=== PATIENT | female | born 1940 | race Caucasian/White ===

== ENCOUNTER 2018-07-25 08:29 | Inpatient (IN) | payer MEDICARE, MEDICAID ==
[2018-07-25] VITALS (15 sets, daily range): BP systolic 92–206; BP diastolic 17–61
[~2018-07-25] VITALS: Ht 157.5 cm; Wt 55.5 kg
[2018-07-25] MEDS ORDERED: ALPRAZOLAM1 MG ORAL (08:45)
[2018-07-25] MEDS ORDERED: MUPIROCIN22 GM TOPIC (08:45)
[2018-07-25] MEDS ORDERED: PRO-STAT LIQUID30 ML ORAL (08:45)
[2018-07-25] MEDS ORDERED: ACETAMINOPHEN325 M1 ORAL (08:45)
[2018-07-25] MEDS ORDERED: METOPROLOL TART50 M1 ORAL (08:45)
[2018-07-25] MEDS ORDERED: SENNA LAXATIVE1 EAC1 PO (08:45)
[2018-07-25] MEDS ORDERED: RENVELA0.8 GM ORAL (08:45)
[2018-07-25] MEDS ORDERED: VITAMIN C500 M1 ORAL (08:45)
[2018-07-25] MEDS ORDERED: SERTRALINE HCL25 MG ORAL (08:45)
[2018-07-25] MEDS ORDERED: ELIQUIS2.5 MG PO (08:45)
[2018-07-25] MEDS ORDERED: AMIODARONE HCL400 M1 ORAL (08:45)
[2018-07-25] MEDS ORDERED: PANTOPRAZOLE SO40 MG ORAL (08:45)
[2018-07-25] MEDS ORDERED: DOCUSATE SODIU100 MG ORAL (08:45)
[2018-07-25] MEDS ORDERED: GABAPENTIN300 MG ORAL (08:45)
[2018-07-25] MEDS ORDERED: Vancomycin 1 GM in NS 275 ML IVPB ONE (09:00)
[2018-07-25] MEDS ORDERED: Albuterol ud Inhalation HHN ONE (09:00)
[2018-07-25 09:02] LABS: BASOPHILS % (AUTO) 1.6 % (0.0-2.0); EOSINOPHILS % (AUTO) 0.5 % (0.0-3.0); HEMATOCRIT 35.2 % (37.0-47.0); LYMPHOCYTES % (AUTO) 10.3 % (20.0-45.0); MEAN CORPUSCULAR VOLUME 97 FL (80-99); MONOCYTES % (AUTO) 7.5 % (1.0-10.0); NEUTROPHILS % (AUTO) 80.1 % (45.0-75.0); PLATELET COUNT 573 K/UL (150-450); RED BLOOD COUNT 3.62 M/UL (4.20-5.40); RED CELL DISTRIBUTION WIDTH 21.5 % (11.6-14.8); WHITE BLOOD COUNT 13.3 K/UL (4.8-10.8)
--- NOTE | 2018-07-25 09:16 | NUR ---
ED Nurse Note:pt. was BIBA from SNF for ALOC , on arrival she is A/Ox0, O2 sats 94% on non rebrizer mask at 15L, pt. placed on manager monitoring, EKG done ,blood and urine sent to labs, F/C removed as of ERMD order, pt. receiving breathing treatment , IV antibiotic given, pt. came with FLACO single lumen PICC line in working condition
[2018-07-25 09:17] LABS: INR 0.9 (0.9-1.1)
[2018-07-25 09:21] LABS: ANION GAP 5 mmol/L (5-15); BLOOD UREA NITROGEN 42 mg/dL (7-18); CARBON DIOXIDE 31 MMOL/L (21-32); CHLORIDE 101 MMOL/L (98-107); CREATININE 3.1 MG/DL (0.55-1.30); POTASSIUM 5.5 MMOL/L (3.5-5.1); SODIUM 137 MMOL/L (136-145)
--- NOTE | 2018-07-25 09:30 | Emergency Room Report ---
History of Present Illness General Chief Complaint: Altered Mental Status Source: Medical Record, EMS Present Illness HPI This patient presents from a custodial facility. The patient has multiple chronic medical problems. She has a history of end-stage renal disease and is dialysis dependent, dementia and inability to ambulate with muscle weakness. EMS report that they were called to the custodial facility for being more altered than usual. Usually the patient is oriented to herself. There was also concern about oxygenation. The patient herself is minimally responsive and unable to give any history. There is no other history from EMS or the custodial facility. Allergies: Coded Allergies: No Known Allergies (Unverified , 07/25/18) Patient History Past Medical History: see triage record, DM, HTN, MO, CAD, GERD, CVA/TIA, dementia, renal disease, dialysis Past Surgical History: unable to obtain Pertinent Family History: unable to obtain Social History: Denies: smoking, alcohol use, drug use Last Menstrual Period: unk Now: No Reviewed Nursing Documentation: PMH: Agreed; PSxH: Agreed Nursing Documentation-PMH Hx Cardiac Problems: Yes - a-fib Hx Hypertension: Yes Hx Diabetes: Yes - esrd Review of Systems All Other Systems: limited Physical Exam Vital Signs Date Time Temp Pulse Resp B/P (MAP) Pulse Ox O2 Delivery O2 Flow Rate FiO2 07/25/18 08:25 Nasal Cannula 07/25/18 08:25 96.1 82 14 143/40 94 2.0 Sp02 EP Interpretation: reviewed, abnormal General Appearance: no apparent distress, alert, GCS 15, non-toxic, cachetic, thin, Chronically Ill Head: normocephalic, atraumatic Eyes: bilateral eye normal inspection, bilateral eye PERRL ENT: hearing grossly normal, normal pharynx, no angioedema Neck: full range of motion, supple/symm/no masses Respiratory: chest non-tender, lungs clear, no respiratory distress, no retraction, no accessory muscle use, decreased breath sounds Cardiovascular #1: regular rate, rhythm, no edema, systolic murmur Gastrointestinal: normal bowel sounds, non tender, soft, non-distended, no guarding, no rebound Rectal: deferred Musculoskeletal: other - Contractures. At baseline Neurologic: alert, other - Non-focal. Altered/Dementia Psychiatric: judgement/insight normal, memory normal, mood/affect normal, no suicidal/homicidal ideation Skin: warm/dry, well hydrated, other - See RN skin exam. Multiple DU. Procedures Intubation Intubation : Consent: Emergent Intubation Method: orotracheal Tube Size (cm): 7.0 Medications: Etomidate, Rocuronium Breath Sounds after Intubation: equal Intubation Complications: no complications Post Intubation Xray: Yes Progress/Xray Impression: L. Lung opacification Attempts: One Patient Tolerated: Well Complications: None Medical Decision Making Diagnostic Impression: Primary Impression: Altered mental status Additional Impressions: Pyelonephritis Pneumonia ER Course This elderly and chronically ill female presents with altered mental status. She is found to have pyelonephritis and pneumonia. The patient was hypertensive with systolic blood pressures in the 200s on arrival. However, I' m unsure of the accuracy of these readings as the diastolic was very low. These blood pressures were obtained on the leg and in an elderly female I suspect there is significant peripheral arterial disease. The patient's right upper extremity has a PICC line in place in the left upper extremity has an AV fistula. That is why the blood pressures are being taken on the leg. The patient was not tachycardic or in any discomfort or distress during her entire ED course. Initially I had planned and placed in this patient and his stepdown unit secondary to the blood pressures, however, the blood pressure read in the 150s systolic and the patient remained without tachycardia and appeared double and nondistressed, sitting the patient was downgraded to telemetry. The patient was given broad-spectrum antibiotics. Added note: After the patient was admitted to telemetry she desaturated suddenly became more altered. She was transferred to the ICU and placed on a nonrebreather mask and I was called from the ICU to come intubate this patient. The patient's saturations were in the high 80s and occasionally in the 90s. There was a very poor waveform. However, the patient clearly had declined and was intubated by rapid think with intubation without complication on the first attempt. Please see my procedure note. Post intubation chest x-ray shows complete opacification of the left lung consistent with obstruction. This is a new finding from the previous chest x-ray done in the emergency department and is likely the etiology of the patient's rapid respiratory failure. Possibly this is secondary to a mucous plug. This patient is critically ill. This patient required complex medical decision- making, aggressive intervention, extensive laboratory workup and monitoring. Critical care time: 40 minutes. Laboratory Tests Test 07/25/18 08:30 07/25/18 12:30 White Blood Count 13.3 K/UL (4.8-10.8) H Red Blood Count 3.62 M/UL (4.20-5.40) L Hemoglobin 10.0 G/DL (12.0-16.0) L Hematocrit 35.2 % (37.0-47.0) L Mean Corpuscular Volume 97 FL (80-99) Mean Corpuscular Hemoglobin 27.5 PG (27.0-31.0) Mean Corpuscular Hemoglobin Concent 28.4 G/DL (32.0-36.0) L Red Cell Distribution Width 21.5 % (11.6-14.8) H Platelet Count 573 K/UL (150-450) H Mean Platelet Volume 6.1 FL (6.5-10.1) L Neutrophils (%) (Auto) 80.1 % (45.0-75.0) H Lymphocytes (%) (Auto) 10.3 % (20.0-45.0) L Monocytes (%) (Auto) 7.5 % (1.0-10.0) Eosinophils (%) (Auto) 0.5 % (0.0-3.0) Basophils (%) (Auto) 1.6 % (0.0-2.0) Prothrombin Time 10.0 SEC (9.30-11.50) Prothrombin Time INR 0.9 (0.9-1.1) PTT 32 SEC (23-33) Urine Color Pale yellow Urine Appearance Turbid Urine pH 7 (4.5-8.0) Urine Specific [place] 1.030 (1.005-1.035) Urine Protein 4+ (NEGATIVE) H Urine Glucose (UA) Negative (NEGATIVE) Urine Ketones Negative (NEGATIVE) Urine Blood 5+ (NEGATIVE) H Urine Nitrite Negative (NEGATIVE) Urine Bilirubin Negative (NEGATIVE) Urine Urobilinogen Normal MG/DL (0.0-1.0) Urine Leukocyte Esterase 3+ (NEGATIVE) H Urine RBC 30-40 /HPF (0 - 2) H Urine WBC Tntc /HPF (0 - 2) H Urine Squamous Epithelial Cells Few /LPF (NONE/OCC) Urine Bacteria Moderate /HPF (NONE) H Sodium Level 137 MMOL/L (136-145) Potassium Level 5.5 MMOL/L (3.5-5.1) H Chloride Level 101 MMOL/L (98-107) Carbon Dioxide Level 31 MMOL/L (21-32) Anion Gap 5 mmol/L (5-15) Blood Urea Nitrogen 42 mg/dL (7-18) H Creatinine 3.1 MG/DL (0.55-1.30) H Estimate Glomerular Filtration Rate mL/min (>60) Glucose Level 174 MG/DL (74-106) H Lactic Acid Level 0.70 mmol/L (0.4-2.0) Calcium Level 9.0 MG/DL (8.5-10.1) Total Bilirubin 0.2 MG/DL (0.2-1.0) Aspartate Amino Transferase (AST) 19 U/L (15-37) Alanine Aminotransferase (ALT) 11 U/L (12-78) L Alkaline Phosphatase 99 U/L (46-116) Total Creatine Kinase 25 U/L (26-308) L Creatine Kinase MB 2.5 NG/ML (0.0-3.6) Creatine Kinase MB Relative Index 10.0 Troponin I 0.026 ng/mL (0.000-0.056) Total Protein 8.3 G/DL (6.4-8.2) H Albumin 1.7 G/DL (3.4-5.0) L Globulin 6.6 g/dL Albumin/Globulin Ratio 0.3 (1.0-2.7) L Arterial Blood pH 7.170 (7.350-7.450) Arterial Blood Partial Pressure CO2 74.4 mmHg (35.0-45.0) *H Arterial Blood Partial Pressure O2 66.9 mmHg (75.0-100.0) L Arterial Blood HCO3 26.5 mmol/L (22.0-26.0) H Arterial Blood Oxygen Saturation 88.6 % (95-100) *L Arterial Blood Base Excess -2.9 (-2-2) L Silverio Test Positive Microbiology Date/Time Source Procedure Growth Status 07/25/18 08:35 Nasal Nares Influenza Types A,B Antigen (FARSHAD) - Final Complete EKG Diagnostic Results Rate: normal Rhythm: NSR ST Segments: no acute changes Rhythm Strip Diag. Results EP Interpretation: yes Rate: 80's Rhythm: NSR, no PVC's, no ectopy Chest X-Ray Diagnostic Results Chest X-Ray Diagnostic Results : Chest X-Ray Ordered: Yes # of Views/Limited/Complete: 1 View Indication: Other - AMS EP Interpretation: Yes Interpretation: other - RLL opacity Impression: Other - See above Electronically Signed by: Thiago Last Vital Signs Date Time Temp Pulse Resp B/P (MAP) Pulse Ox O2 Delivery O2 Flow Rate FiO2 07/25/18 08:27 96.1 82 12 264/49 Nasal Cannula 2.0 07/25/18 08:25 94 Disposition: ADMITTED INPATIENT Condition: Serious Marcia Stone DO Jul 25, 2018 09:30
[2018-07-25 09:32] LABS: APPEARANCE,URINE TURBID; BILIRUBIN, URINE NEGATIVE (NEGATIVE); GLUCOSE, URINE (UA) NEGATIVE (NEGATIVE); KETONES,URINE NEGATIVE (NEGATIVE); LEUKOCYTE ESTERASE ,URINE 3+ (NEGATIVE); NITRITE,URINE NEGATIVE (NEGATIVE); PH,URINE 7 (4.5-8.0); PROTEIN,URINE 4+ (NEGATIVE); UROBILINOGEN,URINE NORMAL MG/DL (0.0-1.0)
[2018-07-25 09:34] LABS: ALANINE AMINOTRANSFERASE 11 U/L (12-78); ALBUMIN 1.7 G/DL (3.4-5.0); ALBUMIN/GLOBULIN RATIO 0.3 (1.0-2.7); ALKALINE PHOSPHATASE 99 U/L (46-116); ASPARTATE AMINO TRANSFERASE 19 U/L (15-37); BILIRUBIN,TOTAL 0.2 MG/DL (0.2-1.0); CKMB 2.5 NG/ML (0.0-3.6); CREATINE KINASE 25 U/L (26-308)
[2018-07-25 09:38] LABS: COLOR,URINE PALE YELLOW
--- NOTE | 2018-07-25 10:55 | Diagnostic Imaging Report ---
Indications: Dementia, altered mental status Technique: Spiral acquisitions obtained through the brain. Angled axial and coronal 5 x 5 mm slices were reconstructed. Total dose length product 1362.01 mGycm. CTDI vol(s) 70.38 mGy. Dose reduction achieved using automated exposure control Comparison: None. Findings: There is slight image degradation due to motion artifact. There is age-related enlargement of the ventricles and extra axial CSF spaces. There is periventricular white matter low-attenuation, consistent with chronic ischemic change. Old lacunar infarct is seen in the anterior limb of the right internal capsule. Asymmetric basal ganglia calcification seen on the left. No acute intercranial hemorrhage nor edema, mass effect, nor midline shift. The visualized orbits and sinuses are unremarkable. The mastoids are clear. The calvarium is hyperostotic, intact. Impression: Somewhat limited exam due to motion artifact No gross acute intracranial bleed or mass effect Chronic and age-related changes, as described. Old right internal capsule lacunar infarct The CT scanner at [facility] is accredited by the [employer] and the scans are performed using protocols designed to limit radiation exposure to as low as reasonably achievable to attain images of sufficient resolution adequate for diagnostic evaluation.
--- NOTE | 2018-07-25 11:05 | Diagnostic Imaging Report ---
Indication: Shortness of Technique: One view of the chest Comparison: None Findings: There are moderate to large bilateral pleural effusions. There is pulmonary interstitial edema. There is suggestion of abrupt cut off of the left mainstem bronchus, endobronchial occlusion not excludable. The heart is enlarged. There is a right arm midline. The tip is at the level of the upstream subclavian vein. Extensive surgical clips are seen in the left upper quadrant of the abdomen. The bones are unremarkable Impression: Cardiomegaly Evidence of congestive heart failure, with pulmonary interstitial edema, moderate to large bilateral pleural effusions Suggestion of abrupt cut off of the left mainstem bronchus. Could be artifactual, but endobronchial occlusion not excludable
--- NOTE | 2018-07-25 11:30 | NUR ---
ED Nurse Note:pt. has labored breathing VS are with in normals, notified and OKed to transfer pt. to SDU
--- NOTE | 2018-07-25 11:45 | NUR ---
ED Nurse Note:called SDU for report- they waiting for bed in room
--- NOTE | 2018-07-25 12:07 | NUR ---
CASE MANAGEMENT: REVIEW 78/F MICHAEL FROM [facility] CC: AMS SI: PYELONEPHRITIS . AMS T 96.1 HR 82 RR 14 BP 264/49 SAT 99% MECH VENT FIO2 100 WBC 13.3 H/H 10.0/35.2 5.5 ABG: PH 7.170 PCO2 74.4 PO2 66.9 HCO3 26.5 SAT 88.6 IS: VANCO IV X1 ALBUTEROL HHN X1 ZOSYN IV X1 NS IVF BOLUS X1 ALBUMIN IV X1 INTERQUAL CRITERIA MET: PATIENT ADMITTED TO ICU 07/25/2018 DCP: PATIENT IS FROM [facility]
--- NOTE | 2018-07-25 12:40 | NUR ---
ED Nurse Note:pt. was transfered to ICU for respiratory distress, ABG done , report given to Carolina BLAND
--- NOTE | 2018-07-25 13:44 | Diagnostic Imaging Report ---
Indication: Post intubation Technique: One view of the chest Comparison: 5 hours earlier Findings: Interim endotracheal intubation, endotracheal tube tip projecting approximately 4 cm above the dominick. Again demonstrated is abrupt cut off of the left mainstem bronchus, with now complete opacification of the left lung likely indicating complete atelectasis of such. The right lung demonstrates better inflation than on the previous exam. Large right pleural effusion is again demonstrated. There is a nasogastric tube in place, tip of which projects at the level of the gastric fundus/body junction. Right arm midline again demonstrated Impression: Satisfactory endotracheal intubation Satisfactory nasogastric intubation Abrupt cut off of the left mainstem bronchus and complete opacification of the left hemithorax, suspect endobronchial obstruction with complete atelectasis of left lung. Previous exam also showed evidence of significant pleural fluid on the left Improved aeration of the right lung Large right pleural effusion, moderate interstitial congestion persist Value findings phoned to Dr. Allan at the time of interpretation
--- NOTE | 2018-07-25 14:00 | NUR ---
NURSE NOTES: Patient arrived from ED, with one Midline access, on the right arm and left arm has a AV shunt, she gets hemodialysis MWF, requires intubation ordered by MD horan. BP is also low, a NGT was applied, chest xray done. Has wounds, and is on a SPR mattress. Left lung is very diminished. Is from [facility]. MD horan has been called and notified about the patients condition. CHest xray showed a collapsed left lung, family has been notified about consent for broncoscopy, patient is ful code with no known allergies , Dr Downs is on the case and has been notified of patient condition.
--- NOTE | 2018-07-25 14:08 | Consultation ---
History of Present Illness General Date patient seen: Jul 25, 2018 Chief Complaint: Altered Mental Status Reason for Consultation: venous access, critical care Present Illness HPI 78 year old elderly female with multiple medical comorbidities just admitted and now with respiratory compromise requiring urgent intubation. Hypotensive, devonte cardic, left lung collapse/plug, now requiring multiple meds, fluids, and possible pressors. only has right arm midline with single lumen. cannot obtain peripheral access. central venous access needed for critical care. surgery called to evaluate and assist with care. Allergies: Coded Allergies: No Known Allergies (Unverified , 07/25/18) Medication History Scheduled Alprazolam* (Xanax*), 1 MG ORAL TID, (Reported) Amino Acids/Protein Hydrolys (Pro-Stat Liquid), 30 ML ORAL TWICE A DAY, ( Reported) Amiodarone Hcl* (Amiodarone Hcl*), 200 MG ORAL EVERY 12 HOURS, (Reported) Ascorbic Acid* (Vitamin C*), 500 MG ORAL DAILY, (Reported) Docusate Sodium* (Docusate Sodium*), 100 MG ORAL TWICE A DAY, (Reported) Gabapentin* (Gabapentin*), 300 MG ORAL BEDTIME, (Reported) Metoprolol Tartrate* (Metoprolol Tartrate*), 50 MG ORAL EVERY 12 HOURS, ( Reported) Mupirocin* (Mupirocin*), 1 APPLIC TOPIC THREE TIMES A DAY, (Reported) Pantoprazole* (Pantoprazole*), 40 MG ORAL DAILY, (Reported) Sertraline Hcl* (Sertraline Hcl*), 100 MG ORAL DAILY, (Reported) Sevelamer Carbonate* (Renvela*), 800 MG ORAL THREE TIMES A DAY, (Reported) Scheduled PRN Acetaminophen* (Acetaminophen 325MG Tablet*), 650 MG ORAL Q4H PRN for Pain Scale (3-5), (Reported) Miscellaneous Medications Apixaban (Eliquis), 2.5 MG PO, (Reported) Sennosides/Docusate Sodium (Senna Laxative Tablet), 2 EACH PO, (Reported) Patient History Limited by: medical condition History Provided By: Medical Record Healthcare decision maker Resuscitation status Advanced Directive on File Past Medical/Surgical History Past Medical/Surgical History: (1) Hypotension (2) Bradycardia (3) Sepsis (4) Pyelonephritis (5) Altered mental status Review of Systems ROS Narrative cannot obtain given medical condition Physical Exam General Appearance: severe distress, thin Lines, tubes and drains: other HEENT: atraumatic Neck: normal inspection Respiratory/Chest: on vent, other Cardiovascular/Chest: bradycardia Abdomen: soft, no organomegaly, no mass Extremities: other Skin Exam: warm/dry Neurologic: unresponsiveness Last 24 Hour Vital Signs Date Time Temp Pulse Resp B/P (MAP) Pulse Ox O2 Delivery O2 Flow Rate FiO2 07/25/18 11:15 71 19 154/34 99 Non-Rebreather 10.0 98 07/25/18 09:55 96.1 77 19 167/44 99 Non-Rebreather 10.0 100 07/25/18 09:55 79 18 Non-Rebreather 15.0 100 07/25/18 09:19 79 18 93 Non-Rebreather 100 07/25/18 09:09 96.1 88 17 206/23 94 Non-Rebreather 15.0 100 07/25/18 09:08 80 17 96 Non-Rebreather 100 07/25/18 09:08 80 17 Non-Rebreather 100 07/25/18 08:27 96.1 82 12 264/49 Nasal Cannula 2.0 07/25/18 08:25 96.1 82 14 143/40 94 Nasal Cannula 2.0 07/25/18 08:25 Nasal Cannula Laboratory Tests Test 07/25/18 08:30 07/25/18 12:30 White Blood Count 13.3 K/UL (4.8-10.8) H Red Blood Count 3.62 M/UL (4.20-5.40) L Hemoglobin 10.0 G/DL (12.0-16.0) L Hematocrit 35.2 % (37.0-47.0) L Mean Corpuscular Volume 97 FL (80-99) Mean Corpuscular Hemoglobin 27.5 PG (27.0-31.0) Mean Corpuscular Hemoglobin Concent 28.4 G/DL (32.0-36.0) L Red Cell Distribution Width 21.5 % (11.6-14.8) H Platelet Count 573 K/UL (150-450) H Mean Platelet Volume 6.1 FL (6.5-10.1) L Neutrophils (%) (Auto) 80.1 % (45.0-75.0) H Lymphocytes (%) (Auto) 10.3 % (20.0-45.0) L Monocytes (%) (Auto) 7.5 % (1.0-10.0) Eosinophils (%) (Auto) 0.5 % (0.0-3.0) Basophils (%) (Auto) 1.6 % (0.0-2.0) Prothrombin Time 10.0 SEC (9.30-11.50) Prothromb Time International Ratio 0.9 (0.9-1.1) Activated Partial Thromboplast Time 32 SEC (23-33) Urine Color Pale yellow Urine Appearance Turbid Urine pH 7 (4.5-8.0) Urine Specific [place] 1.030 (1.005-1.035) Urine Protein 4+ (NEGATIVE) H Urine Glucose (UA) Negative (NEGATIVE) Urine Ketones Negative (NEGATIVE) Urine Blood 5+ (NEGATIVE) H Urine Nitrite Negative (NEGATIVE) Urine Bilirubin Negative (NEGATIVE) Urine Urobilinogen Normal MG/DL (0.0-1.0) Urine Leukocyte Esterase 3+ (NEGATIVE) H Urine RBC 30-40 /HPF (0 - 2) H Urine WBC Tntc /HPF (0 - 2) H Urine Squamous Epithelial Cells Few /LPF (NONE/OCC) Urine Bacteria Moderate /HPF (NONE) H Sodium Level 137 MMOL/L (136-145) Potassium Level 5.5 MMOL/L (3.5-5.1) H Chloride Level 101 MMOL/L (98-107) Carbon Dioxide Level 31 MMOL/L (21-32) Anion Gap 5 mmol/L (5-15) Blood Urea Nitrogen 42 mg/dL (7-18) H Creatinine 3.1 MG/DL (0.55-1.30) H Estimat Glomerular Filtration Rate mL/min (>60) Glucose Level 174 MG/DL (74-106) H Lactic Acid Level 0.70 mmol/L (0.4-2.0) Calcium Level 9.0 MG/DL (8.5-10.1) Total Bilirubin 0.2 MG/DL (0.2-1.0) Aspartate Amino Transf (AST/SGOT) 19 U/L (15-37) Alanine Aminotransferase (ALT/SGPT) 11 U/L (12-78) L Alkaline Phosphatase 99 U/L (46-116) Total Creatine Kinase 25 U/L (26-308) L Creatine Kinase MB 2.5 NG/ML (0.0-3.6) Creatine Kinase MB Relative Index 10.0 Troponin I 0.026 ng/mL (0.000-0.056) Total Protein 8.3 G/DL (6.4-8.2) H Albumin 1.7 G/DL (3.4-5.0) L Globulin 6.6 g/dL Albumin/Globulin Ratio 0.3 (1.0-2.7) L Arterial Blood pH 7.170 (7.350-7.450) Arterial Blood Partial Pressure CO2 74.4 mmHg (35.0-45.0) *H Arterial Blood Partial Pressure O2 66.9 mmHg (75.0-100.0) L Arterial Blood HCO3 26.5 mmol/L (22.0-26.0) H Arterial Blood Oxygen Saturation 88.6 % (95-100) *L Arterial Blood Base Excess -2.9 (-2-2) L Silverio Test Positive Microbiology Date/Time Source Procedure Growth Status 07/25/18 08:35 Nasal Nares Influenza Types A,B Antigen (FARSHAD) - Final Complete Height (Feet): 5 Height (Inches): 3.00 Weight (Pounds): 145 Assessment/Plan Problem List: (1) Sepsis Assessment & Plan: acute decompensation hypotensive bradycardic respiratory decompensation requiring intubation and vent support needs central venous access for meds, fluids and possible pressors thank you will follow with recs ICD Codes: A41.9 - Sepsis, unspecified organism SNOMED: 05025985 (2) Hypotension ICD Codes: I95.9 - Hypotension, unspecified SNOMED: 66588598 (3) Bradycardia ICD Codes: R00.1 - Bradycardia, unspecified SNOMED: 37791935 (4) Altered mental status ICD Codes: R41.82 - Altered mental status, unspecified SNOMED: 618475668 Status: unchanged JesuReji Jul 25, 2018 14:08
--- NOTE | 2018-07-25 14:14 | General Progress Note ---
Progress Note Progress Note Surgery: After intubation patient hypotensive and bradycardic requiring urgent access. Attempt at subclavian unsuccessful. asked radiology if ultrasound available for IJ placement. Radiology on way to place IJ with ultrasound guidance. thank you. Reji Nails Jul 25, 2018 14:14
[2018-07-25] MEDS: DOPamine 400mg/250ml 250 ML IV SCH (14:21)
--- NOTE | 2018-07-25 14:29 | Operative Note - PDOC ---
Operative Note Operative Note Date of Operation/Procedure: Jul 25, 2018 Pre-op Diagnosis: Sepsis, hypotensive, bradycardic, critical care Procedure: left subclavian central venous catheter insertion Post-op Diagnosis: same as pre-op Surgeon: angelica Anesthesia: local Specimen: none Complications: none Condition: unstable Estimated Blood Loss: minimal Drains: none Implant(s) used?: No Indications for Procedure 78 year old female currently admitted for care and management with acute decompensation requiring intubation and ICU care. Hypotensive, bradycardic, septic. Requiring fluids, meds, and pressors. Central venous access recommended and indicated. patient with right arm midline with only one port and unknown age. difficult peripheral access. Hx of ESRD on HD. Evaluated extremities and not viable peripheral noted. Left upper arm with significant edema. Graft not viable as no thrill or bruits noted. Discussed with nephrology. Description of Procedure Patient placed in trendelenberg position. right midline noted. right upper extremity without significant edema or notable surgical history. left upper extremity with significant edema and noted prior surgery. left graft not viable as no thrill or bruits. right chest wall prepped and draped. all proper equipment worn. on second pass left subclavian central venous catheter was cannulated. venous blood noted. guidewire placed over needle. needle removed. skin incision made and dilator used. central venous catheter inserted over guidewire and guidewire removed. all 3 ports flushed and aspirated. line sutured in place. dressings applied. cxr ordered. Reji Nails Jul 25, 2018 14:29
--- NOTE | 2018-07-25 14:32 | Consultation ---
Consult Note Consult Note asked to evaluate the patient at the request of Dr Allan 78 y old female in ICU Hypotensive intubated left arm fistula no bruit right arm picc line unresponsive triple lumen on left subclavian by surgeon Assessment/Plan ESRD Hypotensive Septic shock edematous hypoalbuminemia left lung white out post intubation Fluid challenge respiratary support no candidate for dialysis now pressors antibiotics Graham Sabillon MD Jul 25, 2018 14:32
--- NOTE | 2018-07-25 15:09 | Diagnostic Imaging Report ---
Indication: Post line placement Technique: One view of the chest Comparison: One hour earlier Findings: Interim placement left subclavian central venous catheter, tip of which projects cephalad beyond the edge of image, presumably within the internal jugular vein. Stable satisfactory position of nasogastric and endotracheal tubes. The left lung has partially reexpanded in the interim. There is still opacification of the left lower hemithorax, however. The left mainstem bronchus now appears to be grossly patent. Abrupt cut off seen previously is not definitely evident currently. Large right pleural effusion, generalized interstitial edema persist Impression: Malposition of left subclavian central venous catheter, tip presumably within the left internal jugular vein. Dr. Nails is aware Interim partial reaeration of the left lung. However, there is still considerable left mid and lower lung opacification, presumably due to combination of pleural fluid and residual atelectasis Interstitial edema, large right pleural effusion persists Findings discussed by phone with patient's nurse at the time of interpretation
--- NOTE | 2018-07-25 15:51 | Cardiology Progress Note ---
Assessment/Plan Assessment/Plan [id number] switch to levopphed alb ordered by dr hawley check tsh to exclude amiod induced hypothyroid empic abx abd u/s need to exclude abd sepsis check Objective Last 24 Hour Vital Signs Date Time Temp Pulse Resp B/P (MAP) Pulse Ox O2 Delivery O2 Flow Rate FiO2 07/25/18 14:35 96.1 71 19 154/34 99 Non-Rebreather 10.0 98 07/25/18 14:21 81/21 07/25/18 11:15 71 19 154/34 99 Non-Rebreather 10.0 98 07/25/18 09:55 96.1 77 19 167/44 99 Non-Rebreather 10.0 100 07/25/18 09:55 79 18 Non-Rebreather 15.0 100 07/25/18 09:19 79 18 93 Non-Rebreather 100 07/25/18 09:09 96.1 88 17 206/23 94 Non-Rebreather 15.0 100 07/25/18 09:08 80 17 96 Non-Rebreather 100 07/25/18 09:08 80 17 Non-Rebreather 100 07/25/18 08:27 96.1 82 12 264/49 Nasal Cannula 2.0 07/25/18 08:25 96.1 82 14 143/40 94 Nasal Cannula 2.0 07/25/18 08:25 Nasal Cannula Laboratory Tests Test 07/25/18 08:30 07/25/18 12:30 White Blood Count 13.3 K/UL (4.8-10.8) H Red Blood Count 3.62 M/UL (4.20-5.40) L Hemoglobin 10.0 G/DL (12.0-16.0) L Hematocrit 35.2 % (37.0-47.0) L Mean Corpuscular Volume 97 FL (80-99) Mean Corpuscular Hemoglobin 27.5 PG (27.0-31.0) Mean Corpuscular Hemoglobin Concent 28.4 G/DL (32.0-36.0) L Red Cell Distribution Width 21.5 % (11.6-14.8) H Platelet Count 573 K/UL (150-450) H Mean Platelet Volume 6.1 FL (6.5-10.1) L Neutrophils (%) (Auto) 80.1 % (45.0-75.0) H Lymphocytes (%) (Auto) 10.3 % (20.0-45.0) L Monocytes (%) (Auto) 7.5 % (1.0-10.0) Eosinophils (%) (Auto) 0.5 % (0.0-3.0) Basophils (%) (Auto) 1.6 % (0.0-2.0) Prothrombin Time 10.0 SEC (9.30-11.50) Prothromb Time International Ratio 0.9 (0.9-1.1) Activated Partial Thromboplast Time 32 SEC (23-33) Urine Color Pale yellow Urine Appearance Turbid Urine pH 7 (4.5-8.0) Urine Specific [place] 1.030 (1.005-1.035) Urine Protein 4+ (NEGATIVE) H Urine Glucose (UA) Negative (NEGATIVE) Urine Ketones Negative (NEGATIVE) Urine Blood 5+ (NEGATIVE) H Urine Nitrite Negative (NEGATIVE) Urine Bilirubin Negative (NEGATIVE) Urine Urobilinogen Normal MG/DL (0.0-1.0) Urine Leukocyte Esterase 3+ (NEGATIVE) H Urine RBC 30-40 /HPF (0 - 2) H Urine WBC Tntc /HPF (0 - 2) H Urine Squamous Epithelial Cells Few /LPF (NONE/OCC) Urine Bacteria Moderate /HPF (NONE) H Sodium Level 137 MMOL/L (136-145) Potassium Level 5.5 MMOL/L (3.5-5.1) H Chloride Level 101 MMOL/L (98-107) Carbon Dioxide Level 31 MMOL/L (21-32) Anion Gap 5 mmol/L (5-15) Blood Urea Nitrogen 42 mg/dL (7-18) H Creatinine 3.1 MG/DL (0.55-1.30) H Estimat Glomerular Filtration Rate mL/min (>60) Glucose Level 174 MG/DL (74-106) H Lactic Acid Level 0.70 mmol/L (0.4-2.0) Calcium Level 9.0 MG/DL (8.5-10.1) Total Bilirubin 0.2 MG/DL (0.2-1.0) Aspartate Amino Transf (AST/SGOT) 19 U/L (15-37) Alanine Aminotransferase (ALT/SGPT) 11 U/L (12-78) L Alkaline Phosphatase 99 U/L (46-116) Total Creatine Kinase 25 U/L (26-308) L Creatine Kinase MB 2.5 NG/ML (0.0-3.6) Creatine Kinase MB Relative Index 10.0 Troponin I 0.026 ng/mL (0.000-0.056) Total Protein 8.3 G/DL (6.4-8.2) H Albumin 1.7 G/DL (3.4-5.0) L Globulin 6.6 g/dL Albumin/Globulin Ratio 0.3 (1.0-2.7) L Arterial Blood pH 7.170 (7.350-7.450) Arterial Blood Partial Pressure CO2 74.4 mmHg (35.0-45.0) *H Arterial Blood Partial Pressure O2 66.9 mmHg (75.0-100.0) L Arterial Blood HCO3 26.5 mmol/L (22.0-26.0) H Arterial Blood Oxygen Saturation 88.6 % (95-100) *L Arterial Blood Base Excess -2.9 (-2-2) L Silverio Test Positive Microbiology Date/Time Source Procedure Growth Status 07/25/18 08:35 Nasal Nares Influenza Types A,B Antigen (FARSHAD) - Final Complete Angelo Butler MD Jul 25, 2018 15:51
[2018-07-25] MEDS ORDERED: Vancomycin 500mg/D5W 110ml IVPB ONE ×2 (16:00)
[2018-07-25] MEDS: Piperacillin/Tazobactam 3.375 GM in NS 110 ML IVPB SCH (17:00)
--- NOTE | 2018-07-25 18:15 | Consultation ---
DATE OF CONSULTATION: 07/25/2018 CARDIAC CONSULTATION CONSULTING PHYSICIAN: Angelo Butler M.D. REFERRING PHYSICIAN: Andres Allan M.D. REASON FOR REFERRAL: Hypotension and bradycardia. HISTORY OF PRESENT ILLNESS: This is a 78-year-old female, who is really unable to provide much in terms of history and physical, really unable to provide meaningful history whatsoever. The patient is a resident of [facility] facility and apparently was transferred to acute care hospital for becoming more altered than usual, apparently usually oriented to self, and was also apparently an issue with oxygenation. She was minimally responsive and unable to give any meaningful history, and she was admitted to the hospital at [facility] and subsequently was noted to be in respiratory compromise requiring urgent intubation for left lung collapse and mucus plugging, and became hypotensive and bradycardic, required multiple medications and central line was placed due to lack of vascular access. in the ICU. I was notified to see the patient because of hypotension and bradycardia with blood pressure in the 80s range despite being on maximum doses of dopamine and heart rate in the 80s now on maximum doses of dopamine. The patient on questioning appears to be awake and responsive. Denies any pain in her lower extremities. Denies any pain in her chest. Does admit to being short of breath. Does admit to be dizzy lightheaded and does admit to having abdominal pain. PAST MEDICAL HISTORY: Extensive and includes recurrent urinary tract infection, history of dysphagia, end-stage renal disease, on hemodialysis, diabetes mellitus, paroxysmal episodes of atrial fibrillation, essential hypertension, anemia, protein-calorie malnutrition, dementia, pleural effusions, gastroesophageal reflux disease, pressure ulcers, neuralgia, neuritis, open wound of right lower extremity and left lower extremity being noted. ALLERGIES: She is reportedly not allergic to any medications. SOCIAL HISTORY: She is a resident of [facility] facility. Tobacco and alcoholic beverages are not known. REVIEW OF SYSTEMS: As mentioned in HPI. PHYSICAL EXAMINATION: GENERAL: Shows to be elderly female, on a mechanical ventilator. As mentioned, she appears to be responsive and communicative. VITAL SIGNS: At this time, heart rate of 100. Last blood pressure was in the 80s systolic over 50s. NECK: Supple. LUNGS: Crackles noted at the left base. CARDIAC: Regular rhythm. No heaves or thrills noted. ABDOMEN: Soft. There is some tenderness. No rebound. No guarding. EXTREMITIES: There is edema of the upper extremities, the left much worse than on the right. Lower extremity edema is minimal. NEUROLOGICAL: She is awake and responsive. LABORATORY VALUES: White count of 13.3, hemoglobin 10, and platelet count of 573,000. Blood gases, pH of 7.17, pCO2 of 74, pO2 of 67, bicarbonate of 26, 88% saturation. Sodium 137, potassium 5.5, chloride 101, bicarbonate 31, BUN of 42, creatinine 3.1, and glucose of 174. Troponin was 0.026. Lactic acid 0.71. Alkaline phosphatase of 99. AST and ALT are normal limits. Albumin of 1.7 and total protein of 8.3. INR 0.9 and PTT of 32. Urinalysis shows too numerous to count wbc's, 30-40 rbc's, and 3+ leukocyte esterase, although the patient is a known dialysis patient. ASSESSMENT AND PLAN: 1. Hypotension, possibly sepsis versus volume. 2. Paroxysmal episodes of atrial fibrillation history. 3. Bradycardia secondary to medications, amiodarone possibly. 4. Diabetes mellitus. 5. End-stage renal disease, on hemodialysis. 6. Lung collapse. 7. Respiratory failure, status post intubation. 8. Dysphagia. 9. History of dementia. Dr. Allan, this patient was seen in cardiac consultation. The patient will be receiving an albumin bolus ordered by Dr. Sabillon from Nephrology. She is on maximum dose of dopamine and blood pressure was apparently low. We will switch over to Levophed. She should be continued on her amiodarone. Thyroid-stimulating hormone to be checked to make sure that she is not hypothyroid related to amiodarone therapy. Pressors to maintain mean arterial blood pressure in the 60s. She used to receive empiric antibiotics. Her influenza screen was negative. Her electrocardiogram that was performed was sinus with right bundle-branch conduction defect at the time of admission. Her telemetry basically shows sinus rhythm and no episodes sinus tachycardia despite her sepsis, likely from suppression from the beta-blockers. Again, amiodarone-induced hypothyroidism needs to be excluded. Of note, her blood pressure prior to admission to a level of 200, making adrenal insufficiency likely. Her blood pressures are being checked in her right lower extremity because of a shunt that she has on the left upper extremity and a central line that she has on her right upper extremity, which may additionally effect blood pressure readings. I will follow the patient along with you. Angelo Butler M.D. DR: Tariq JOB#: [id number] CC:
--- NOTE | 2018-07-25 18:42 | NUR ---
ATTEMTPTED TO DRAW ABG POST INTUBATION SEVERAL TIMES BY 3 RTs, BUT UNABLE TO OBTAIN ARTERIAL SAMPLE (KEEP GETTING VENOUS). PLANT GUIDE RT MADE AWARE AND WILL ALSO ATTEMPT TO OBTAIN ARTERIAL SAMPLE.
--- NOTE | 2018-07-25 19:30 | NUR ---
NURSE NOTES: Recvd.on a vent.Orally intubated see settings,AAO able to follows simple command.On bila.soft wrist restraints prev.self-injury.See V/S.Dopa.drip in progress TIT. to BPS>90.Scope SR.Denies CP.Unable to Admin.Alb.Per pharma.incompatible to Dopa. aware.See order for LEVO.drip.F/Cath intact.Newly inserted by am nurse.Anuric.Hemodialysis pt.suctioned Tk antonella sec.NS Lavaged.
--- NOTE | 2018-07-25 20:30 | NUR ---
NURSE NOTES: Pressor chg.to Levo.as ordered.Pharma.called for albumin order stated still no verification on compatibility to levo.B/P improved on Levo.drip.Cont.to monitor.
[2018-07-25] MEDS: Pantoprazole Inj IVP SCH (21:05)
--- NOTE | 2018-07-25 21:30 | History and Physical Report ---
DATE OF ADMISSION: 07/25/2018 HISTORY OF PRESENT ILLNESS: This is a 78-year-old female, who came to the hospital with complaint of having alteration in her mental status. The patient was apparently doing fairly well at home; however she is on hemodialysis. She was minimally responsive. She was seen in the ER and workup was done which showed left lung pneumonia. The patient was subsequently intubated at my request by the ER physician. The patient subsequently become hypotensive and bradycardic and a central line was placed. She is currently on dopamine. At this point, she has been seen by Cardiology, Nephrology, and General Surgery. PAST MEDICAL HISTORY: Notable for previous urinary tract infection, ESRD on dialysis, diabetes mellitus, atrial fibrillation, hypertension, anemia, dementia, GERD, history of open wounds of the lower extremities. ALLERGIES: None. SOCIAL HISTORY: She is a resident of convalescent facility. Tobacco, alcohol, not known. HOME MEDICATIONS: Reviewed and reconciled in chart. PHYSICAL EXAMINATION: GENERAL: Reveals a elderly female. VITAL SIGNS: Blood pressure is 90/60, heart rate 102, respirations 22, she is afebrile. HEENT: Unremarkable. She is intubated but alert. CHEST: Clear breath sounds bilaterally with decreased breath sounds at the bases. ABDOMEN: Soft. NEUROLOGIC: Nonfocal. LABORATORY AND DIAGNOSTIC DATA: White count 50254, hemoglobin 10, platelet count is normal. ABG shows pH 7.17, pCO2 74, pO2 57. Potassium 5.5, creatinine of 3.1, glucose 174. She has multiple pus cells in the urine. X-ray chest shows left lung opacifications suspicious for left mucus plug. IMPRESSION: 1. Hypotension. 2. Sepsis. 3. Atrial fibrillation. 4. Bradycardia. 5. Diabetes mellitus. 6. End-stage renal disease on dialysis. 7. Left lung collapse. 8. Respiratory failure. 9. Dysphagia. 10. Dementia. DISCUSSION: 1. Continue medications. 2. Start Levophed. 3. She will need a bronchoscopy. I discussed with the son who agrees and consents. 4. She needs central line. She will need 5. Use broad-spectrum antibiotics. I concur with the use of Protonix, vancomycin, Zosyn, IV fluids, albumin. The patient is critically ill. Discussed with family and will follow carefully. Andres Allan M.D. DR: Stefany JOB#: [id number] CC:
--- NOTE | 2018-07-25 22:10 | NUR ---
NURSE NOTES: HS care rendered.Pos. chg.Kept comfortable.Due director of medical review.Suctioned.See Latest V/S.Levo.drip at 6mcg/min.NPO.Cont.on IV Therapy.
[2018-07-26] VITALS (52 sets, daily range): BP systolic 55–154; BP diastolic 13–83
--- NOTE | 2018-07-26 00:10 | NUR ---
NURSE NOTES: Pos. chg.Suctioned.See V/S.Unable to taper down Levophed.Scope rhythm same.Denies CP.
--- NOTE | 2018-07-26 02:00 | NUR ---
NURSE NOTES: Repositioned,kept comfortable.Status same.
--- NOTE | 2018-07-26 03:30 | NUR ---
NURSE NOTES: Cardioscope rhythm converted to AT-FIB with RVR.Will notify
--- NOTE | 2018-07-26 06:52 | NUR ---
Received Patient on vent settings of ACVC RR 20, VT 500, FIO2 45%, PEEP +5. Patient is currently in no distress. Intubated with a 7.0 ETT at 20cm at the lip. Suctioned small amount of thin white secretions. Breath sounds reveal diminished rhonchi bilaterally. HR high 70s saturating at 100%. Vent plugged into red outlet. Alarms are on and audible. Will continue to monitor throughout the day.
[2018-07-26 07:20] LABS: HEMATOCRIT 30.2 % (37.0-47.0); MEAN CORPUSCULAR VOLUME 95 FL (80-99); PLATELET COUNT 420 K/UL (150-450); RED CELL DISTRIBUTION WIDTH 20.9 % (11.6-14.8)
--- NOTE | 2018-07-26 07:32 | NUR ---
HAND-OFF: Report given to BALDO SAHNI.
--- NOTE | 2018-07-26 07:35 | NUR ---
NURSE NOTES: Patient received lying in bed, awake, alert, orally intubated ET size 7.0, lip at 20cm vent settings: AC 20, TV-500, FiO2 50%, PEEP-5, saturating 99%, crackles heard to lung upon auscultation, for bronchoscopy today. NPO, with left nare NG tube. Hanson intact and draining, yellow with sediments to whitish colored output. Right upper Arm Midline running Levophed at 6 mcg/min. Sinus Rhythm on the monitor rate 70. Will continue to monitor.
[2018-07-26 07:38] LABS: ALANINE AMINOTRANSFERASE 7 U/L (12-78); ALBUMIN 1.5 G/DL (3.4-5.0); ALBUMIN/GLOBULIN RATIO 0.3 (1.0-2.7); ALKALINE PHOSPHATASE 75 U/L (46-116); ANION GAP 12 mmol/L (5-15); ASPARTATE AMINO TRANSFERASE 15 U/L (15-37); BILIRUBIN,TOTAL 0.5 MG/DL (0.2-1.0); BLOOD UREA NITROGEN 47 mg/dL (7-18); CALCIUM 8.4 MG/DL (8.5-10.1); CARBON DIOXIDE 25 MMOL/L (21-32); CHLORIDE 102 MMOL/L (98-107); CREATININE 3.5 MG/DL (0.55-1.30); GAMMA GLUTAMYL TRANSPEPTIDASE 8 U/L (5-85); PHOSPHORUS 3.3 MG/DL (2.5-4.9); POTASSIUM 5.1 MMOL/L (3.5-5.1); SODIUM 139 MMOL/L (136-145)
[2018-07-26 07:51] LABS: AMMONIA 11 umol/L (11-32)
--- NOTE | 2018-07-26 07:55 | NUR ---
NURSE NOTES: Left a message to Dr. Allan regarding patient's white count of 20.0 from 13.3, will await call back from .
[2018-07-26] MEDS ORDERED: Pantoprazole Inj IVP SCH (09:00)
[2018-07-26] MEDS: Pantoprazole Inj IVP SCH ×2 (09:30→20:33)
[2018-07-26] MEDS: Piperacillin/Tazobactam 3.375 GM in NS 110 ML IVPB SCH (09:31)
--- NOTE | 2018-07-26 10:10 | NUR ---
NURSE NOTES: Bedside bronchoscopy done by Dr. Allan, RN and 2 RTs at bedside. Patient tolerated by patient. Planning for extubation in about 20 minutes as patient tolerates and remove NG tube once extubated per MD. Also ordered BiPAP PRN, Fio2 40%, place on venturi mask after extubation.
--- NOTE | 2018-07-26 10:30 | Nephrology Progress Note ---
Assessment/Plan Problem List: (1) ESRD (end stage renal disease) (2) Hypotension (3) Sepsis (4) Hypoalbuminemia Assessment ESRD Hypotensive Septic shock edematous hypoalbuminemia left lung white out post intubation Plan Fluid challenge respiratary support no candidate for dialysis now pressors antibiotics bronch suction left lung Subjective ROS Limited/Unobtainable: Yes Objective Objective Last 24 Hour Vital Signs Date Time Temp Pulse Resp B/P (MAP) Pulse Ox O2 Delivery O2 Flow Rate FiO2 07/26/18 09:00 45 07/26/18 08:42 131 20 50 07/26/18 07:00 75 20 124/39 (67) 100 07/26/18 06:51 74 20 50 07/26/18 06:00 142 20 96/72 (80) 100 07/26/18 05:04 145 20 50 07/26/18 05:00 146 20 106/78 (87) 100 07/26/18 04:30 154 20 95/29 (51) 100 07/26/18 04:18 110/83 07/26/18 04:00 50 07/26/18 04:00 154 07/26/18 04:00 99.2 154 22 110/83 (92) 100 07/26/18 04:00 Mechanical Ventilator Mechanical Ventilator 07/26/18 03:30 158 21 90/43 (59) 100 07/26/18 03:00 73 20 113/48 (69) 100 07/26/18 03:00 75 20 50 07/26/18 02:30 69 20 98/38 (58) 100 07/26/18 02:00 68 20 120/23 (55) 100 07/26/18 01:46 68 20 50 07/26/18 01:30 68 20 126/26 (59) 100 07/26/18 01:00 69 20 118/27 (57) 100 07/26/18 00:30 69 20 100/33 (55) 100 07/26/18 00:00 Mechanical Ventilator Mechanical Ventilator 07/26/18 00:00 50 07/26/18 00:00 97.2 67 20 98/44 (62) 100 07/25/18 23:30 66 20 105/33 (57) 100 07/25/18 23:04 65 21 50 07/25/18 23:00 66 18 92/61 (71) 100 07/25/18 22:30 64 21 99/47 (64) 100 07/25/18 22:00 64 20 112/26 (54) 100 07/25/18 21:30 63 19 104/31 (55) 100 07/25/18 21:00 63 16 98/41 (60) 100 07/25/18 20:46 64 21 50 07/25/18 20:40 50 07/25/18 20:30 63 20 109/44 (65) 100 07/25/18 20:25 62 07/25/18 20:21 64 20 100 07/25/18 20:00 67 18 128/34 (65) 100 07/25/18 20:00 99/20 07/25/18 20:00 100 07/25/18 19:55 Mechanical Ventilator Mechanical Ventilator 07/25/18 19:45 82 20 99/20 (46) 99 07/25/18 19:30 90 19 125/24 (57) 99 07/25/18 19:15 99 20 124/46 (72) 99 07/25/18 19:00 96.6 100 20 128/17 (54) 100 07/25/18 17:01 69 20 100 07/25/18 16:00 100 07/25/18 16:00 100 07/25/18 14:41 71 20 100 07/25/18 14:35 96.1 71 19 154/34 99 Non-Rebreather 10.0 98 07/25/18 14:21 81/21 07/25/18 13:55 Mechanical Ventilator Mechanical Ventilator 07/25/18 12:55 65 20 100 07/25/18 11:15 71 19 154/34 99 Non-Rebreather 10.0 98 Intake and Output 07/25/18 07/26/18 19:00 07:00 Intake Total 127.5 ml 1285.0 ml Output Total 160 ml 15 ml Balance -32.5 ml 1270.0 ml Intake Oral 0 ml 0 ml IV Total 127.5 ml 1285.0 ml Output Urine Total 160 ml 15 ml Laboratory Tests 07/25/18 12:30: Arterial Blood pH 7.170*L, Arterial Blood Partial Pressure CO2 74.4*H, Arterial Blood Partial Pressure O2 66.9L, Arterial Blood HCO3 26.5H, Arterial Blood Oxygen Saturation 88.6*L, Arterial Blood Base Excess -2.9L, Silverio Test Positive 07/25/18 18:00: Troponin I 0.025, Thyroid Stimulating Hormone (TSH) 2.721 07/25/18 20:38: Arterial Blood pH 7.549H, Arterial Blood Partial Pressure CO2 28.0L, Arterial Blood Partial Pressure O2 395.6H, Arterial Blood HCO3 23.9, Arterial Blood Oxygen Saturation 99.9, Arterial Blood Base Excess 2.1H, Silverio Test Positive 07/26/18 05:50: White Blood Count 20.0#H, Red Blood Count 3.20L, Hemoglobin 9.0L, Hematocrit 30.2L, Mean Corpuscular Volume 95, Mean Corpuscular Hemoglobin 28.3, Mean Corpuscular Hemoglobin Concent 29.9L, Red Cell Distribution Width 20.9H, Platelet Count 420, Mean Platelet Volume 6.1L, Neutrophils (%) (Auto) , Lymphocytes (%) (Auto) , Monocytes (%) (Auto) , Eosinophils (%) (Auto) , Basophils (%) (Auto) , Neutrophils % (Manual) [Pending], Lymphocytes % (Manual) [Pending], Platelet Estimate [Pending], Platelet Morphology [Pending], Sodium Level 139, Potassium Level 5.1, Chloride Level 102, Carbon Dioxide Level 25, Anion Gap 12, Blood Urea Nitrogen 47H, Creatinine 3.5H, Estimat Glomerular Filtration Rate , Glucose Level 115H, Lactic Acid Level 2.80H, Uric Acid 5.7, Calcium Level 8.4L, Phosphorus Level 3.3, Magnesium Level 2.1, Total Bilirubin 0.5, Gamma Glutamyl Transpeptidase 8, Aspartate Amino Transf (AST/SGOT) 15, Alanine Aminotransferase (ALT/SGPT) 7L, Alkaline Phosphatase 75, Ammonia 11, C- Reactive Protein, Quantitative 10.8H, Pro-B-Type Natriuretic Peptide > 83276Q, Total Protein 7.0, Albumin 1.5L, Globulin 5.5, Albumin/Globulin Ratio 0.3L 07/26/18 08:02: Lactic Acid Level 1.90 Height (Feet): 5 Height (Inches): 2.00 Weight (Pounds): 132 General Appearance: mild distress EENT: other - intubated having bronch Cardiovascular: tachycardia, arrhythmia Respiratory/Chest: decreased breath sounds Abdomen: distended Graham Sabillon MD Jul 26, 2018 10:30
--- NOTE | 2018-07-26 11:00 | NUR ---
NURSE NOTES: Attempted to insert peripheral IV line to infuse Albumin IV since there is no compatibility to run medication with levophed per [place] Pharmacist. Attempted x2 and Joanna BLAND attempted also x2 but to no avail.
--- NOTE | 2018-07-26 11:12 | NUR ---
NURSE NOTES: Patient extubated per Dr. Allan's order after done with bronchoscopy procedure earlier. Patient extubated by Ximena RT, VS were: 142/61, RR-19, Oxygen saturation of 99% on venturi mask at 40%, heart rate 130-140s. Head of bed elevated. Will continue to monitor.
--- NOTE | 2018-07-26 11:21 | NUR ---
NURSE NOTES: Left a message for Dr. Butler regarding patient running A. fibrillation with RVR rate ranging from 130-150s, patient has no prn orders. Will await MD call back.
--- NOTE | 2018-07-26 11:44 | Diagnostic Imaging Report ---
Indication: Abdominal pain Technique: Nelson-scale and duplex images of the upper abdomen were obtained Comparison: none Findings: Exam is limited due to patient body habitus Gallbladder is surgically absent. Common bile duct measures 5 mm in diameter. No intrahepatic biliary ductal dilatation. Liver demonstrates normal echogenicity, no focal abnormality. Portal vein and hepatic veins are patent. Pancreas is incompletely visualized due to overlying bowel gas, visualized portions are unremarkable. Spleen is unremarkable. Left kidney cannot be visualized. Right kidney measures 10.3 cm length. Right kidney demonstrates increased echogenicity There is no hydronephrosis. Multiple cysts are seen in the right kidney . Non-aneurysmal abdominal aorta . There is a right large pleural effusion incidentally noted Impression: Surgically absent gallbladder. Negative for dilated ducts Limited exam, as described, with nonvisualization of the left kidney, incomplete visualization of the pancreas Increased right renal echogenicity, consistent with medical renal disease Large right pleural effusion Incidental finding right renal cysts
--- NOTE | 2018-07-26 12:45 | NUR ---
CASE MANAGEMENT: REVIEW SI: A-FIB . SEPSIS . ESRD ON HD T 98.9 HR 72 RR 20 BP 85/13 SAT 100% MECH VENT FIO2 50 WBC 20.0 H/H 9.0/30.2 BUN 47 CR 3.5 LACTIC ACID 2.80 IS: AMIODARONE PO Q12HR LEVOPHED GTT DOPAMINE GTT ICU STATUS DCP: PATIENT IS FROM [facility]
--- NOTE | 2018-07-26 12:50 | NUR ---
NURSE NOTES: Patient re-intubated at bedside by ER Doctor Dr. Saleh. According to charge nurse patient was desaturating in the 70s while on the venti mask, place on the BIPAP still to no avail, oxygen saturation was low in the mid 80s, patient diaphoretic and increased work of breathing. Inserted ET 7.5, lipline at 23, AC- 20, TV-500, FiO2 100%, PEEP-5. CXR ordered and ABG to be drawn. Will continue to monitor the patient.
--- NOTE | 2018-07-26 13:00 | NUR ---
Patient extubated per Dr. Daly orders at 1100. Placed patient on Venti mask of 40% FIO2 12 LPM. After about an hour an a half I got a call from the ICU saying to place PT on BIPAP because increased WOB. Placed patient on BIPAP 12/6 Fio2 100% for about 2 minutes. Charge Nurse called ER doctor Therese to come upstairs and reintubate Patient. Reintubated Patient with a 7.5 ETT at 23 at the lip. Vent settings ACVC RR 20, VT 500, FIO2 100%, PEEP +5.
--- NOTE | 2018-07-26 13:14 | NUR ---
NURSE NOTES: Blood sugar 178.
[2018-07-26] MEDS: D5NS 1,000 ML IV SCH (13:17)
[2018-07-26] MEDS ORDERED: Heparin 2000 units/Ns 1000ml INJ PRN (14:00)
[2018-07-26] MEDS: Zosyn 2.25 gm in D5W 55ml IV SCH ×2 (14:00→23:34)
[2018-07-26] MEDS ORDERED: Lidocaine 1% Plain 30 ml INJ PRN (14:00)
--- NOTE | 2018-07-26 14:00 | NUR ---
NURSE NOTES: Paper Goods Machine Operator BALDO Abreu also tried multiple IV attempts x 3, failed. Mitch BLAND also tried also to insert IV x2, but to no avail.
--- NOTE | 2018-07-26 14:04 | Pulmonology Progress Note ---
Assessment/Plan Assessment/Plan IMPRESSION: 1. Hypotension. 2. Sepsis. 3. Atrial fibrillation. 4. Bradycardia. 5. Diabetes mellitus. 6. End-stage renal disease on dialysis. 7. Left lung collapse. 8. Respiratory failure. 9. Dysphagia. 10. Dementia. DISCUSSION: 1. Continue medications. 2. as needed Levophed. 3. She will need a bronchoscopy. I discussed with the son who agrees and consents. 4. She needs central line versus PICC line 5. Use broad-spectrum antibiotics. I concur with the use of Protonix, vancomycin, Zosyn, IV fluids, albumin. 6. I will attempt to wean and extubate today. Andres Allan M.D. Subjective Interval Events: awake and responsive, xray chest reviewed Constitutional: Reports: no symptoms HEENT: Repors: no symptoms Respiratory: Reports: no symptoms Cardiovascular: Reports: no symptoms Gastrointestinal/Abdominal: Reports: no symptoms Genitourinary: Reports: no symptoms Neurologic: Reports: no symptoms Allergies: Coded Allergies: No Known Allergies (Unverified , 07/25/18) Objective Last 24 Hour Vital Signs Date Time Temp Pulse Resp B/P (MAP) Pulse Ox O2 Delivery O2 Flow Rate FiO2 07/26/18 13:57 50 07/26/18 13:04 123 20 100 07/26/18 12:55 142 8 71 Facial 100 07/26/18 12:47 Mechanical Ventilator Mechanical Ventilator Mechanical Ventilator 07/26/18 11:13 140 18 Venturi Mask 12.0 40 07/26/18 11:13 Venturi Mask 12.0 40 07/26/18 11:11 Venturi Mask 12.0 40 07/26/18 10:00 142 22 121/66 (84) 95 07/26/18 09:30 127 20 101/45 (63) 100 07/26/18 09:00 130 20 106/57 (73) 100 07/26/18 09:00 45 07/26/18 08:42 131 20 50 07/26/18 08:30 99.1 129 20 97/58 (71) 100 07/26/18 08:00 Mechanical Ventilator Mechanical Ventilator Mechanical Ventilator 07/26/18 08:00 127 20 85/13 (37) 100 07/26/18 07:30 75 20 124/26 (58) 100 07/26/18 07:00 75 20 124/39 (67) 100 07/26/18 06:51 74 20 50 07/26/18 06:00 142 20 96/72 (80) 100 07/26/18 05:04 145 20 50 07/26/18 05:00 146 20 106/78 (87) 100 07/26/18 04:30 154 20 95/29 (51) 100 07/26/18 04:18 110/83 07/26/18 04:00 50 07/26/18 04:00 154 07/26/18 04:00 99.2 154 22 110/83 (92) 100 07/26/18 04:00 Mechanical Ventilator Mechanical Ventilator 07/26/18 03:30 158 21 90/43 (59) 100 07/26/18 03:00 73 20 113/48 (69) 100 07/26/18 03:00 75 20 50 07/26/18 02:30 69 20 98/38 (58) 100 07/26/18 02:00 68 20 120/23 (55) 100 07/26/18 01:46 68 20 50 07/26/18 01:30 68 20 126/26 (59) 100 07/26/18 01:00 69 20 118/27 (57) 100 07/26/18 00:30 69 20 100/33 (55) 100 07/26/18 00:00 Mechanical Ventilator Mechanical Ventilator 07/26/18 00:00 50 07/26/18 00:00 97.2 67 20 98/44 (62) 100 07/25/18 23:30 66 20 105/33 (57) 100 07/25/18 23:04 65 21 50 07/25/18 23:00 66 18 92/61 (71) 100 07/25/18 22:30 64 21 99/47 (64) 100 07/25/18 22:00 64 20 112/26 (54) 100 07/25/18 21:30 63 19 104/31 (55) 100 07/25/18 21:00 63 16 98/41 (60) 100 07/25/18 20:46 64 21 50 07/25/18 20:40 50 07/25/18 20:30 63 20 109/44 (65) 100 07/25/18 20:25 62 07/25/18 20:21 64 20 100 07/25/18 20:00 67 18 128/34 (65) 100 07/25/18 20:00 99/20 07/25/18 20:00 100 07/25/18 19:55 Mechanical Ventilator Mechanical Ventilator 07/25/18 19:45 82 20 99/20 (46) 99 07/25/18 19:30 90 19 125/24 (57) 99 07/25/18 19:15 99 20 124/46 (72) 99 07/25/18 19:00 96.6 100 20 128/17 (54) 100 07/25/18 17:01 69 20 100 07/25/18 16:00 100 07/25/18 16:00 100 07/25/18 14:41 71 20 100 07/25/18 14:35 96.1 71 19 154/34 99 Non-Rebreather 10.0 98 07/25/18 14:21 81/21 Intake and Output 07/25/18 07/26/18 19:00 07:00 Intake Total 127.5 ml 1285.0 ml Output Total 160 ml 15 ml Balance -32.5 ml 1270.0 ml Intake Oral 0 ml 0 ml IV Total 127.5 ml 1285.0 ml Output Urine Total 160 ml 15 ml General Appearance: no acute distress HEENT: normocephalic Respiratory/Chest: chest wall non-tender, lungs clear Cardiovascular: normal peripheral pulses, normal rate Abdomen: normal bowel sounds, soft, non tender Microbiology Date/Time Source Procedure Growth Status 07/25/18 08:35 Nasal Nares Influenza Types A,B Antigen (FARSHAD) - Final Complete 07/25/18 08:30 Urine,Clean Catch Urine Culture - Preliminary Gram Negative Bacillus 1 Resulted Laboratory Tests 07/25/18 18:00: Troponin I 0.025, Thyroid Stimulating Hormone (TSH) 2.721 07/25/18 20:38: Arterial Blood pH 7.549H, Arterial Blood Partial Pressure CO2 28.0L, Arterial Blood Partial Pressure O2 395.6H, Arterial Blood HCO3 23.9, Arterial Blood Oxygen Saturation 99.9, Arterial Blood Base Excess 2.1H, Silverio Test Positive 07/26/18 05:50: White Blood Count 20.0#H, Red Blood Count 3.20L, Hemoglobin 9.0L, Hematocrit 30.2L, Mean Corpuscular Volume 95, Mean Corpuscular Hemoglobin 28.3, Mean Corpuscular Hemoglobin Concent 29.9L, Red Cell Distribution Width 20.9H, Platelet Count 420, Mean Platelet Volume 6.1L, Neutrophils (%) (Auto) , Lymphocytes (%) (Auto) , Monocytes (%) (Auto) , Eosinophils (%) (Auto) , Basophils (%) (Auto) , Differential Total Cells Counted 100, Neutrophils % ( Manual) 89H, Lymphocytes % (Manual) 7L, Monocytes % (Manual) 3, Eosinophils % ( Manual) 0, Basophils % (Manual) 1, Band Neutrophils 0, Nucleated Red Blood Cells 1, Platelet Estimate Adequate, Platelet Morphology Normal, Hypochromasia 2 +, Anisocytosis 2+, Sodium Level 139, Potassium Level 5.1, Chloride Level 102, Carbon Dioxide Level 25, Anion Gap 12, Blood Urea Nitrogen 47H, Creatinine 3.5H , Estimat Glomerular Filtration Rate , Glucose Level 115H, Lactic Acid Level 2.80H, Uric Acid 5.7, Calcium Level 8.4L, Phosphorus Level 3.3, Magnesium Level 2.1, Total Bilirubin 0.5, Gamma Glutamyl Transpeptidase 8, Aspartate Amino Transf (AST/SGOT) 15, Alanine Aminotransferase (ALT/SGPT) 7L, Alkaline Phosphatase 75, Ammonia 11, C-Reactive Protein, Quantitative 11.3H, Pro-B-Type Natriuretic Peptide > 41300E, Total Protein 7.0, Albumin 1.5L, Globulin 5.5, Albumin/Globulin Ratio 0.3L 07/26/18 08:02: Lactic Acid Level 1.90 07/26/18 13:55: Arterial Blood pH 7.467H, Arterial Blood Partial Pressure CO2 33.5L, Arterial Blood Partial Pressure O2 274.6H, Arterial Blood HCO3 23.7, Arterial Blood Oxygen Saturation 99.8, Arterial Blood Base Excess 0.2, Silverio Test N/a Current Medications Medications (Trade) Dose Ordered Sig/Renetta Route PRN Reason Start Time Stop Time Status Last Admin Dose Admin Chlorhexidine Gluconate (Rylie-Hex 2%) 1 applic DAILY@1999 TOPIC 07/26/18 20:00 08/25/18 19:59 Dextrose/Sodium Chloride 1,000 ml @ 50 mls/hr Q20H IV 07/26/18 10:27 08/25/18 10:26 07/26/18 13:17 Dopamine HCl/ Dextrose 250 ml @ 0 mls/hr Q24H IV 07/25/18 14:21 08/24/18 14:20 07/25/18 14:21 Heparin Sodium/ Sodium Chloride (Heparin 2000 units/Ns 1000ml premix) 2,000 unit ONCE PRN INJ PICC 07/26/18 14:00 07/27/18 23:59 Lidocaine HCl (Xylocaine 1% 30ml) 30 ml ONCE PRN INJ PICC 07/26/18 14:00 07/27/18 23:59 Norepinephrine Bitartrate 4 mg/ Dextrose 250 ml @ 0 mls/hr Q24H IV 07/25/18 16:30 08/24/18 16:29 07/26/18 04:18 Pantoprazole (Protonix) 40 mg Q12HR IVP 07/25/18 21:00 08/25/18 08:59 07/26/18 09:30 Piperacillin Sod/ Tazobactam Sod 2.25 gm/Dextrose 55 ml @ 110 mls/hr Q8HR IV 07/26/18 14:00 07/31/18 13:59 Vancomycin HCl (Vanco rx to dose) 1 ea DAILY PRN MISC Per rx protocol 07/25/18 14:30 08/24/18 14:29 Andres Allan MD Jul 26, 2018 14:04
--- NOTE | 2018-07-26 14:08 | Operative Note - PDOC ---
Operative Note Operative Note Date of Operation/Procedure: Jul 26, 2018 Chief Complaint: left lung collapse Pre-op Diagnosis: left lung collapse Procedure: bronchoscopy and lavage Post-op Diagnosis: mucous plug removed from left side Post-op Diagnosis: same as pre-op Surgeon: Jerrell Anesthesia: local, other - none Specimen: none Complications: none Condition: unstable Estimated Blood Loss: minimal Drains: none Implant(s) used?: No Description of Procedure after informed consent from son, a bronchoscope was introduced using existing endotracheal tube down to level of dominick Inspection followed by lavage of both major bronchi. Mucous plugs were removed. procedure was completed without complications Andres Allan MD Jul 26, 2018 14:08
--- NOTE | 2018-07-26 14:30 | NUR ---
RD ASSESSMENT & RECOMMENDATIONS SEE CARE ACTIVITY FOR COMPLETE ASSESSMENT DAILY ESTIMATED NEEDS: Needs based on Critical care+ Wounds + ESRD (HD held at this time)/ 60kg 22-30 kcals/kg 3117-3030 total kcals (without HD: 1g/kg) (with HD: 1.5-2.0g/kg) g protein/kg (without HD: 60g) (with HD: 90-120g) g total protein NUTRITION DIAGNOSIS: * Swallowing difficulty R/T respiratory status as evidenced by pt orally intubated, NPO at this time. * Increased kcal/prot needs R/T wound healing as evidenced by pt admitted w/ multiple wounds including advanced sacral wound, pending evaluation. * Altered nutrition related lab values R/T ESRD dx, clinical condition as evidenced by elev creat (3.5), elev BNP >59546, low BP, on pressor. CURRENT DIET: NPO PO DIET RECOMMENDATIONS: [facility] evaluation post extubation, prior to PO diet. ENTERAL NUTRITION RECOMMENDATIONS: Nepro @ 40ml/hr x 24 hrs + Prosource 1pkt TID to provide 960ml, 1728kcal, 111g prot, 698ml free water WITH HEMODYNAMIC STABILITY - (w/ HD) 1. Initiate Nepro @ 10ml/hr x 6 hrs, advance 10mlq 4-6 hrs as tolerated to goal rate of 40ml/hr x 24 hrs 2. Add Prosource 1 pkt TID. - (without HD) Rec goal rate of Nepro @ 35ml/hr x 24 hrs to provide 840ml, 1512kcal, 68g prot, 611ml free water WITHOUT HEMODYNAMIC STABILITY, REC TROPHIC FEEDS OF NEPRO @ 10ML/HR X 24 HRS ADDITIONAL RECOMMENDATIONS: * Calibrated bedscale wt for accurate CBW * Monitor HD stability for ability to feed, resume HD * Wound healing- w/ GI access rec to give Nephrovite x 1, Afshin 1pkt BID -f/up with wound evaluation. * Monitor Renal fxn and lytes- HD held at this time
[2018-07-26] MEDS ORDERED: Heparin Sod 1000 units/ml 10ml IV PRN (14:42)
--- NOTE | 2018-07-26 15:03 | Cardiology Report ---
APPROVED REPORT EXAM: Two-dimensional and M-mode echocardiogram with Doppler and color Doppler. INDICATION LV function M-Mode DIMENSIONS IVSd1.3 (0.7-1.1cm)Left Atrium (MM)5.4 (1.6-4.0cm) LVDd4.1 (3.5-5.6cm)Aortic Root3.0 (2.0-3.7cm) PWd1.3 (0.7-1.1cm)Aortic Cusp Exc.1.7 (1.5-2.0cm) LVDs2.4 (2.5-4.0cm) PWs1.9 cm Technically difficult study due to poor acoustical windows. Normal left ventricular chamber size, systolic function and wall motion to extent visualized. Left ventricular ejection fraction estimated to be 65-70 %. Mild left ventricular hypertrophy. No evidence of pericardial effusion. Severe left atrial enlargement. Mild right atrial enlargement. Right ventricular chamber size is within normal limits. Moderate focal aortic valve sclerosis with adequate cusp excursion. Moderately thickened mitral valve leaflets with mildly reduced excursion. Echogenic material note on mitral valve leaflets may be calcification. Heavy mitral annulus and aortic root calcification. Pulmonic valve not well visualized. Normal tricuspid valve structure. IVC at normal size with physiologic collapse. A color flow and spectral Doppler study was performed and revealed: Trace aortic regurgitation. Moderate mitral regurgitation. Peak mitral valve pressure gradient of 17 mmHg and a mean gradient of 7 mmHg Can not determine left ventricular diastolic function based on mitral diastolic velocities due to atrial fibrillation. Moderate tricuspid regurgitation. Tricuspid systolic velocities suggests peak right ventricular systolic pressure of 77 mmHg, consistent with severe pulmonary hypertension. Pulmonic regurgitation present.
--- NOTE | 2018-07-26 15:52 | General Surgery Progress Note ---
General Surgery-Progress Note Subjective Procedure Performed left subclavian central venous catheter insertion Additional Comments central line removed after noted to have malpositioned. unable to rewire. leukocytosis labs noted on pressors intermittently extubated this AM Objective Last 24 Hour Vital Signs Date Time Temp Pulse Resp B/P (MAP) Pulse Ox O2 Delivery O2 Flow Rate FiO2 07/26/18 15:17 74 20 50 07/26/18 14:36 154/54 07/26/18 14:00 132/51 07/26/18 13:57 50 07/26/18 13:40 50 07/26/18 13:25 118 20 114/51 (72) 100 07/26/18 13:20 118 20 117/54 (75) 100 07/26/18 13:15 121 20 87/56 (66) 94 07/26/18 13:10 119 20 62/34 (43) 94 07/26/18 13:05 124 20 59/42 (48) 94 07/26/18 13:04 123 20 100 07/26/18 13:00 55/40 07/26/18 13:00 123 22 55/40 (45) 94 07/26/18 12:55 142 8 71 Facial 100 07/26/18 12:47 100 07/26/18 12:47 Mechanical Ventilator Mechanical Ventilator Mechanical Ventilator 07/26/18 12:30 122 22 103/32 (55) 93 07/26/18 12:00 138/42 07/26/18 12:00 98.9 120 22 138/42 (74) 82 07/26/18 11:30 128 22 139/42 (74) 91 07/26/18 11:13 140 18 Venturi Mask 12.0 40 07/26/18 11:13 Venturi Mask 12.0 40 07/26/18 11:11 Venturi Mask 12.0 40 07/26/18 11:00 136 22 135/53 (80) 91 07/26/18 11:00 135/53 07/26/18 10:30 143 22 135/62 (86) 91 07/26/18 10:00 142 22 121/66 (84) 95 07/26/18 10:00 121/66 07/26/18 09:30 127 20 101/45 (63) 100 07/26/18 09:00 130 20 106/57 (73) 100 07/26/18 09:00 106/57 07/26/18 09:00 45 07/26/18 08:42 131 20 50 07/26/18 08:30 99.1 129 20 97/58 (71) 100 07/26/18 08:00 Mechanical Ventilator Mechanical Ventilator Mechanical Ventilator 07/26/18 08:00 127 20 85/13 (37) 100 07/26/18 08:00 124/26 07/26/18 07:30 75 20 124/26 (58) 100 07/26/18 07:00 124/39 07/26/18 07:00 75 20 124/39 (67) 100 07/26/18 06:51 74 20 50 07/26/18 06:00 142 20 96/72 (80) 100 07/26/18 05:04 145 20 50 07/26/18 05:00 146 20 106/78 (87) 100 07/26/18 04:30 154 20 95/29 (51) 100 07/26/18 04:18 110/83 07/26/18 04:00 50 07/26/18 04:00 154 07/26/18 04:00 99.2 154 22 110/83 (92) 100 07/26/18 04:00 Mechanical Ventilator Mechanical Ventilator 07/26/18 03:30 158 21 90/43 (59) 100 07/26/18 03:00 73 20 113/48 (69) 100 07/26/18 03:00 75 20 50 07/26/18 02:30 69 20 98/38 (58) 100 07/26/18 02:00 68 20 120/23 (55) 100 07/26/18 01:46 68 20 50 07/26/18 01:30 68 20 126/26 (59) 100 07/26/18 01:00 69 20 118/27 (57) 100 07/26/18 00:30 69 20 100/33 (55) 100 07/26/18 00:00 Mechanical Ventilator Mechanical Ventilator 07/26/18 00:00 50 07/26/18 00:00 97.2 67 20 98/44 (62) 100 07/25/18 23:30 66 20 105/33 (57) 100 07/25/18 23:04 65 21 50 07/25/18 23:00 66 18 92/61 (71) 100 07/25/18 22:30 64 21 99/47 (64) 100 07/25/18 22:00 64 20 112/26 (54) 100 07/25/18 21:30 63 19 104/31 (55) 100 07/25/18 21:00 63 16 98/41 (60) 100 07/25/18 20:46 64 21 50 07/25/18 20:40 50 07/25/18 20:30 63 20 109/44 (65) 100 07/25/18 20:25 62 07/25/18 20:21 64 20 100 07/25/18 20:00 67 18 128/34 (65) 100 07/25/18 20:00 99/20 07/25/18 20:00 100 07/25/18 19:55 Mechanical Ventilator Mechanical Ventilator 07/25/18 19:45 82 20 99/20 (46) 99 07/25/18 19:30 90 19 125/24 (57) 99 07/25/18 19:15 99 20 124/46 (72) 99 07/25/18 19:00 96.6 100 20 128/17 (54) 100 07/25/18 17:01 69 20 100 07/25/18 16:00 100 07/25/18 16:00 100 I&O Intake and Output 07/25/18 07/26/18 19:00 07:00 Intake Total 127.5 ml 1307.5 ml Output Total 160 ml 15 ml Balance -32.5 ml 1292.5 ml Intake Oral 0 ml 0 ml IV Total 127.5 ml 1307.5 ml Output Urine Total 160 ml 15 ml Dressing: dry Wound: clean Drains: other Cardiovascular: RSR Respiratory: decreased breath sounds Abdomen: soft, flat, non-tender, present bowel sounds Extremities: no cyanosis Laboratory Tests Test 07/25/18 18:00 07/25/18 20:38 07/26/18 05:50 07/26/18 08:02 Troponin I 0.025 ng/mL (0.000-0.056) Thyroid Stimulating Hormone (TSH) 2.721 uiU/mL (0.358-3.740) Arterial Blood pH 7.549 (7.350-7.450) Arterial Blood Partial Pressure CO2 28.0 mmHg (35.0-45.0) L Arterial Blood Partial Pressure O2 395.6 mmHg (75.0-100.0) H Arterial Blood HCO3 23.9 mmol/L (22.0-26.0) Arterial Blood Oxygen Saturation 99.9 % (95-100) Arterial Blood Base Excess 2.1 (-2-2) H Silverio Test Positive White Blood Count 20.0 K/UL (4.8-10.8) #H Red Blood Count 3.20 M/UL (4.20-5.40) L Hemoglobin 9.0 G/DL (12.0-16.0) L Hematocrit 30.2 % (37.0-47.0) L Mean Corpuscular Volume 95 FL (80-99) Mean Corpuscular Hemoglobin 28.3 PG (27.0-31.0) Mean Corpuscular Hemoglobin Concent 29.9 G/DL (32.0-36.0) L Red Cell Distribution Width 20.9 % (11.6-14.8) H Platelet Count 420 K/UL (150-450) Mean Platelet Volume 6.1 FL (6.5-10.1) L Neutrophils (%) (Auto) % (45.0-75.0) Lymphocytes (%) (Auto) % (20.0-45.0) Monocytes (%) (Auto) % (1.0-10.0) Eosinophils (%) (Auto) % (0.0-3.0) Basophils (%) (Auto) % (0.0-2.0) Differential Total Cells Counted 100 Neutrophils % (Manual) 89 % (45-75) H Lymphocytes % (Manual) 7 % (20-45) L Monocytes % (Manual) 3 % (1-10) Eosinophils % (Manual) 0 % (0-3) Basophils % (Manual) 1 % (0-2) Band Neutrophils 0 % (0-8) Nucleated Red Blood Cells 1 /100 WBC Platelet Estimate Adequate Platelet Morphology Normal Hypochromasia 2+ Anisocytosis 2+ Sodium Level 139 MMOL/L (136-145) Potassium Level 5.1 MMOL/L (3.5-5.1) Chloride Level 102 MMOL/L (98-107) Carbon Dioxide Level 25 MMOL/L (21-32) Anion Gap 12 mmol/L (5-15) Blood Urea Nitrogen 47 mg/dL (7-18) H Creatinine 3.5 MG/DL (0.55-1.30) H Estimat Glomerular Filtration Rate mL/min (>60) Glucose Level 115 MG/DL (74-106) H Lactic Acid Level 2.80 mmol/L (0.4-2.0) H 1.90 mmol/L (0.66-2.22) Uric Acid 5.7 MG/DL (2.6-7.2) Calcium Level 8.4 MG/DL (8.5-10.1) L Phosphorus Level 3.3 MG/DL (2.5-4.9) Magnesium Level 2.1 MG/DL (1.8-2.4) Total Bilirubin 0.5 MG/DL (0.2-1.0) Gamma Glutamyl Transpeptidase 8 U/L (5-85) Aspartate Amino Transf (AST/SGOT) 15 U/L (15-37) Alanine Aminotransferase (ALT/SGPT) 7 U/L (12-78) L Alkaline Phosphatase 75 U/L (46-116) Ammonia 11 umol/L (11-32) C-Reactive Protein, Quantitative 11.3 mg/dL (0.00-0.90) H Pro-B-Type Natriuretic Peptide > 83851 pg/mL (0-125) H Total Protein 7.0 G/DL (6.4-8.2) Albumin 1.5 G/DL (3.4-5.0) L Globulin 5.5 g/dL Albumin/Globulin Ratio 0.3 (1.0-2.7) L Test 07/26/18 13:55 Arterial Blood pH 7.467 (7.350-7.450) Arterial Blood Partial Pressure CO2 33.5 mmHg (35.0-45.0) L Arterial Blood Partial Pressure O2 274.6 mmHg (75.0-100.0) H Arterial Blood HCO3 23.7 mmol/L (22.0-26.0) Arterial Blood Oxygen Saturation 99.8 % (95-100) Arterial Blood Base Excess 0.2 (-2-2) Silverio Test N/a Plan Problems: (1) Sepsis Assessment & Plan: acute decompensation hypotensive bradycardic respiratory decompensation requiring intubation and vent support - since extubated and doing better midline being used and safe for now may need another line later if peripheral not possible after resuscitation once more stable can consider diet wean pressors thank you will follow with recs (2) Hypotension (3) Bradycardia (4) Altered mental status Reji Nails Jul 26, 2018 15:52
[2018-07-26] MEDS ORDERED: Etomidate 40mg/20ml Inj IV ONE (15:54)
[2018-07-26] MEDS ORDERED: Zemuron 50mg/5ml Inj IV ONE (15:54)
--- NOTE | 2018-07-26 16:12 | Emergency Room Report ---
Physical Exam Called to intubate patient. The patient had a bronchoscopy in the morning. She was extubated. Adnexa patient she was fully alert. She had deteriorating mental status after that. Respiratory therapy tried BiPAP just prior to my being called to intubate the patient. She failed BiPAP and was extremely lethargic. Last 24 Hour Vital Signs Date Time Temp Pulse Resp B/P (MAP) Pulse Ox O2 Delivery O2 Flow Rate FiO2 07/26/18 15:17 74 20 50 07/26/18 14:36 154/54 07/26/18 14:00 132/51 07/26/18 13:57 50 07/26/18 13:40 50 07/26/18 13:25 118 20 114/51 (72) 100 07/26/18 13:20 118 20 117/54 (75) 100 07/26/18 13:15 121 20 87/56 (66) 94 07/26/18 13:10 119 20 62/34 (43) 94 07/26/18 13:05 124 20 59/42 (48) 94 07/26/18 13:04 123 20 100 07/26/18 13:00 55/40 07/26/18 13:00 123 22 55/40 (45) 94 07/26/18 12:55 142 8 71 Facial 100 07/26/18 12:47 100 07/26/18 12:47 Mechanical Ventilator Mechanical Ventilator Mechanical Ventilator 07/26/18 12:30 122 22 103/32 (55) 93 07/26/18 12:00 138/42 07/26/18 12:00 98.9 120 22 138/42 (74) 82 07/26/18 11:30 128 22 139/42 (74) 91 07/26/18 11:13 140 18 Venturi Mask 12.0 40 07/26/18 11:13 Venturi Mask 12.0 40 07/26/18 11:11 Venturi Mask 12.0 40 07/26/18 11:00 136 22 135/53 (80) 91 07/26/18 11:00 135/53 07/26/18 10:30 143 22 135/62 (86) 91 07/26/18 10:00 142 22 121/66 (84) 95 07/26/18 10:00 121/66 07/26/18 09:30 127 20 101/45 (63) 100 07/26/18 09:00 130 20 106/57 (73) 100 07/26/18 09:00 106/57 07/26/18 09:00 45 07/26/18 08:42 131 20 50 07/26/18 08:30 99.1 129 20 97/58 (71) 100 07/26/18 08:00 Mechanical Ventilator Mechanical Ventilator Mechanical Ventilator 07/26/18 08:00 127 20 85/13 (37) 100 07/26/18 08:00 124/26 07/26/18 07:30 75 20 124/26 (58) 100 07/26/18 07:00 124/39 07/26/18 07:00 75 20 124/39 (67) 100 07/26/18 06:51 74 20 50 07/26/18 06:00 142 20 96/72 (80) 100 07/26/18 05:04 145 20 50 07/26/18 05:00 146 20 106/78 (87) 100 07/26/18 04:30 154 20 95/29 (51) 100 07/26/18 04:18 110/83 07/26/18 04:00 50 07/26/18 04:00 154 07/26/18 04:00 99.2 154 22 110/83 (92) 100 07/26/18 04:00 Mechanical Ventilator Mechanical Ventilator 07/26/18 03:30 158 21 90/43 (59) 100 07/26/18 03:00 73 20 113/48 (69) 100 07/26/18 03:00 75 20 50 07/26/18 02:30 69 20 98/38 (58) 100 07/26/18 02:00 68 20 120/23 (55) 100 07/26/18 01:46 68 20 50 07/26/18 01:30 68 20 126/26 (59) 100 07/26/18 01:00 69 20 118/27 (57) 100 07/26/18 00:30 69 20 100/33 (55) 100 07/26/18 00:00 Mechanical Ventilator Mechanical Ventilator 07/26/18 00:00 50 07/26/18 00:00 97.2 67 20 98/44 (62) 100 07/25/18 23:30 66 20 105/33 (57) 100 11/26/18 23:04 65 21 50 07/25/18 23:00 66 18 92/61 (71) 100 07/25/18 22:30 64 21 99/47 (64) 100 07/25/18 22:00 64 20 112/26 (54) 100 07/25/18 21:30 63 19 104/31 (55) 100 07/25/18 21:00 63 16 98/41 (60) 100 07/25/18 20:46 64 21 50 07/25/18 20:40 50 07/25/18 20:30 63 20 109/44 (65) 100 07/25/18 20:25 62 07/25/18 20:21 64 20 100 07/25/18 20:00 67 18 128/34 (65) 100 07/25/18 20:00 99/20 07/25/18 20:00 100 07/25/18 19:55 Mechanical Ventilator Mechanical Ventilator 07/25/18 19:45 82 20 99/20 (46) 99 07/25/18 19:30 90 19 125/24 (57) 99 07/25/18 19:15 99 20 124/46 (72) 99 07/25/18 19:00 96.6 100 20 128/17 (54) 100 07/25/18 17:01 69 20 100 Sp02 EP Interpretation: reviewed, abnormal - interpreted as low by me General Appearance: Stupor Eyes: bilateral eye normal inspection, bilateral eye PERRL ENT: moist mucus membranes Neck: supple Respiratory: decreased breath sounds, other - poor tidal volume - assisted by RT Cardiovascular #1: normal peripheral pulses, regular rate, rhythm Gastrointestinal: normal inspection Musculoskeletal: other - flaccid Neurologic: other - stupor Psychiatric: other - stupor Skin: cyanosis Intubation Intubation : Consent: Emergent Intubation Method: orotracheal Tube Size (cm): 7.5 Medications: Other - none Breath Sounds after Intubation: equal Intubation Complications: no complications Post Intubation Xray: Yes Attempts: One Patient Tolerated: Well Complications: None Medical Decision Making Diagnostic Impression: Primary Impression: Respiratory failure Qualified Codes: J96.01 - Acute respiratory failure with hypoxia; J96.02 - Acute respiratory failure with hypercapnia Additional Impressions: Altered mental status Pyelonephritis Pneumonia ER Course Patient recently extubated with poor tidal volume and stupor. Intubated. Improved oxygenation prior and post intubation. CXR with appropriate tube placement. Chest X-Ray Diagnostic Results Chest X-Ray Diagnostic Results : Chest X-Ray Ordered: Yes # of Views/Limited/Complete: 1 View EP Interpretation: Yes Interpretation: no effusion, no pneumothorax, other - ET good placement and bilateral infiltrates Last Vital Signs Date Time Temp Pulse Resp B/P (MAP) Pulse Ox O2 Delivery O2 Flow Rate FiO2 07/26/18 15:17 74 20 50 07/26/18 14:36 154/54 07/26/18 13:25 100 07/26/18 12:55 Facial 07/26/18 12:00 98.9 07/26/18 11:13 12.0 Status: improved Disposition: ADMITTED INPATIENT Condition: Critical Referrals: NON PHYSICIAN (PCP) Negro Saleh MD Jul 26, 2018 16:12
--- NOTE | 2018-07-26 16:53 | Diagnostic Imaging Report ---
Indication: Post intubation Technique: One view of the chest Comparison: 07/25/2018 Findings: There is an endotracheal tube again demonstrated, tip in good position approximately 4 cm above the dominick. Stable satisfactory position of nasogastric tube. There is slightly improved aeration of the left lung. Large left pleural effusion nonetheless persists. Moderate to large right pleural effusion is again demonstrated, may be slightly improved. Diffuse interstitial congestion is unchanged. The heart remains borderline enlarged. Right arm midline again demonstrated Impression: Satisfactory position of endotracheal tube Somewhat improved aeration of the left lung. This may be due to decreased pleural fluid, versus improved atelectasis, or both. Large left pleural effusion nonetheless persists Apparent decreased but persistent moderate to large right pleural effusion Persistent interstitial congestion Other stable tube and line positions as described.
--- NOTE | 2018-07-26 18:09 | NUR ---
NURSE NOTES: Left a message to Dr. Cabezas in regards to patient unable to obtain another peripheral IV access for other medications, was unable to administer albumin ordered by Dr. Sabillon and unable to give zosyn for patient scheduled at 1400 and son of patient at bedside wanting to speak with him. Will await call back.
--- NOTE | 2018-07-26 18:56 | Cardiology Progress Note ---
Assessment/Plan Assessment/Plan 1. Hypotension, possibly sepsis versus volume. 2. Paroxysmal episodes of atrial fibrillation history. 3. Bradycardia secondary to medications, amiodarone possibly. 4. Diabetes mellitus. 5. End-stage renal disease, on hemodialysis. 6. Lung collapse. 7. Respiratory failure, status post intubation. 8. Dysphagia. 9. History of dementia. 10. Pulm htn 11. Pleural effusion has been in and out of afib will increae amiod for a few doses watch for devonte tele reviewed ekg reviewed echo reviewed was extubated but did poorly then reintubated hd bronch echo personally reviewed lv function is hyperdynamic has bilat pleural effusion on vasopressor d/w rn regradin taper was off pressor until after extubation urine cx postive keep on vent may need to [facility] d/w son remain critically ill but better than last ntie iv abx dialysis Subjective Cardiovascular: Denies: chest pain, lightheadedness Respiratory: Denies: shortness of breath Gastrointestinal/Abdominal: Denies: abdominal pain Genitourinary: Denies: burning Subjective on the vent not verbal but communicates with head motion Objective Last 24 Hour Vital Signs Date Time Temp Pulse Resp B/P (MAP) Pulse Ox O2 Delivery O2 Flow Rate FiO2 07/26/18 18:00 141/39 07/26/18 17:00 78 16 153/39 (77) 100 07/26/18 17:00 153/39 07/26/18 16:35 79 16 50 07/26/18 16:30 78 16 153/42 (79) 100 07/26/18 16:00 Mechanical Ventilator Mechanical Ventilator Mechanical Ventilator 07/26/18 16:00 76 07/26/18 16:00 153/42 07/26/18 16:00 78 20 146/43 (77) 100 07/26/18 15:30 77 20 152/45 (80) 100 07/26/18 15:17 74 20 50 07/26/18 15:00 78 20 142/51 (81) 100 07/26/18 14:36 154/54 07/26/18 14:30 118 20 154/67 (96) 93 07/26/18 14:00 114 20 132/51 (78) 100 07/26/18 14:00 132/51 07/26/18 13:57 50 07/26/18 13:40 50 07/26/18 13:25 118 20 114/51 (72) 100 07/26/18 13:20 118 20 117/54 (75) 100 07/26/18 13:15 121 20 87/56 (66) 94 07/26/18 13:10 119 20 62/34 (43) 94 07/26/18 13:05 124 20 59/42 (48) 94 07/26/18 13:04 123 20 100 07/26/18 13:00 55/40 07/26/18 13:00 123 22 55/40 (45) 94 07/26/18 12:55 142 8 71 Facial 100 07/26/18 12:47 100 07/26/18 12:47 Mechanical Ventilator Mechanical Ventilator Mechanical Ventilator 07/26/18 12:30 122 22 103/32 (55) 93 07/26/18 12:00 128 07/26/18 12:00 138/42 07/26/18 12:00 98.9 120 22 138/42 (74) 82 07/26/18 11:30 128 22 139/42 (74) 91 07/26/18 11:13 140 18 Venturi Mask 12.0 40 07/26/18 11:13 Venturi Mask 12.0 40 07/26/18 11:11 Venturi Mask 12.0 40 07/26/18 11:00 136 22 135/53 (80) 91 07/26/18 11:00 135/53 07/26/18 10:30 143 22 135/62 (86) 91 07/26/18 10:00 142 22 121/66 (84) 95 07/26/18 10:00 121/66 07/26/18 09:30 127 20 101/45 (63) 100 07/26/18 09:00 130 20 106/57 (73) 100 07/26/18 09:00 106/57 07/26/18 09:00 45 07/26/18 08:42 131 20 50 07/26/18 08:30 99.1 129 20 97/58 (71) 100 07/26/18 08:00 Mechanical Ventilator Mechanical Ventilator Mechanical Ventilator 07/26/18 08:00 127 20 85/13 (37) 100 07/26/18 08:00 124/26 07/26/18 08:00 79 07/26/18 07:30 75 20 124/26 (58) 100 07/26/18 07:00 124/39 07/26/18 07:00 75 20 124/39 (67) 100 07/26/18 06:51 74 20 50 07/26/18 06:00 142 20 96/72 (80) 100 07/26/18 05:04 145 20 50 07/26/18 05:00 146 20 106/78 (87) 100 07/26/18 04:30 154 20 95/29 (51) 100 07/26/18 04:18 110/83 07/26/18 04:00 50 07/26/18 04:00 154 07/26/18 04:00 99.2 154 22 110/83 (92) 100 07/26/18 04:00 Mechanical Ventilator Mechanical Ventilator 07/26/18 03:30 158 21 90/43 (59) 100 07/26/18 03:00 73 20 113/48 (69) 100 07/26/18 03:00 75 20 50 07/26/18 02:30 69 20 98/38 (58) 100 07/26/18 02:00 68 20 120/23 (55) 100 07/26/18 01:46 68 20 50 07/26/18 01:30 68 20 126/26 (59) 100 07/26/18 01:00 69 20 118/27 (57) 100 07/26/18 00:30 69 20 100/33 (55) 100 07/26/18 00:00 Mechanical Ventilator Mechanical Ventilator 07/26/18 00:00 50 07/26/18 00:00 97.2 67 20 98/44 (62) 100 07/25/18 23:30 66 20 105/33 (57) 100 07/25/18 23:04 65 21 50 07/25/18 23:00 66 18 92/61 (71) 100 07/25/18 22:30 64 21 99/47 (64) 100 07/25/18 22:00 64 20 112/26 (54) 100 07/25/18 21:30 63 19 104/31 (55) 100 07/25/18 21:00 63 16 98/41 (60) 100 07/25/18 20:46 64 21 50 07/25/18 20:40 50 07/25/18 20:30 63 20 109/44 (65) 100 07/25/18 20:25 62 07/25/18 20:21 64 20 100 07/25/18 20:00 67 18 128/34 (65) 100 07/25/18 20:00 99/20 07/25/18 20:00 100 07/25/18 19:55 Mechanical Ventilator Mechanical Ventilator 07/25/18 19:45 82 20 99/20 (46) 99 07/25/18 19:30 90 19 125/24 (57) 99 07/25/18 19:15 99 20 124/46 (72) 99 07/25/18 19:00 96.6 100 20 128/17 (54) 100 General Appearance: no apparent distress, alert Neck: supple Cardiovascular: normal rate Respiratory/Chest: lungs clear, normal breath sounds Abdomen: normal bowel sounds, non tender, soft Extremities: no swelling Intake and Output 07/25/18 07/26/18 19:00 07:00 Intake Total 127.5 ml 1307.5 ml Output Total 160 ml 15 ml Balance -32.5 ml 1292.5 ml Intake Oral 0 ml 0 ml IV Total 127.5 ml 1307.5 ml Output Urine Total 160 ml 15 ml Laboratory Tests Test 07/25/18 20:38 07/26/18 05:50 07/26/18 08:02 07/26/18 13:55 Arterial Blood pH 7.549 (7.350-7.450) 7.467 (7.350-7.450) Arterial Blood Partial Pressure CO2 28.0 mmHg (35.0-45.0) L 33.5 mmHg (35.0-45.0) L Arterial Blood Partial Pressure O2 395.6 mmHg (75.0-100.0) H 274.6 mmHg (75.0-100.0) H Arterial Blood HCO3 23.9 mmol/L (22.0-26.0) 23.7 mmol/L (22.0-26.0) Arterial Blood Oxygen Saturation 99.9 % (95-100) 99.8 % (95-100) Arterial Blood Base Excess 2.1 (-2-2) H 0.2 (-2-2) Silverio Test Positive N/a White Blood Count 20.0 K/UL (4.8-10.8) #H Red Blood Count 3.20 M/UL (4.20-5.40) L Hemoglobin 9.0 G/DL (12.0-16.0) L Hematocrit 30.2 % (37.0-47.0) L Mean Corpuscular Volume 95 FL (80-99) Mean Corpuscular Hemoglobin 28.3 PG (27.0-31.0) Mean Corpuscular Hemoglobin Concent 29.9 G/DL (32.0-36.0) L Red Cell Distribution Width 20.9 % (11.6-14.8) H Platelet Count 420 K/UL (150-450) Mean Platelet Volume 6.1 FL (6.5-10.1) L Neutrophils (%) (Auto) % (45.0-75.0) Lymphocytes (%) (Auto) % (20.0-45.0) Monocytes (%) (Auto) % (1.0-10.0) Eosinophils (%) (Auto) % (0.0-3.0) Basophils (%) (Auto) % (0.0-2.0) Differential Total Cells Counted 100 Neutrophils % (Manual) 89 % (45-75) H Lymphocytes % (Manual) 7 % (20-45) L Monocytes % (Manual) 3 % (1-10) Eosinophils % (Manual) 0 % (0-3) Basophils % (Manual) 1 % (0-2) Band Neutrophils 0 % (0-8) Nucleated Red Blood Cells 1 /100 WBC Platelet Estimate Adequate Platelet Morphology Normal Hypochromasia 2+ Anisocytosis 2+ Sodium Level 139 MMOL/L (136-145) Potassium Level 5.1 MMOL/L (3.5-5.1) Chloride Level 102 MMOL/L (98-107) Carbon Dioxide Level 25 MMOL/L (21-32) Anion Gap 12 mmol/L (5-15) Blood Urea Nitrogen 47 mg/dL (7-18) H Creatinine 3.5 MG/DL (0.55-1.30) H Estimat Glomerular Filtration Rate mL/min (>60) Glucose Level 115 MG/DL (74-106) H Lactic Acid Level 2.80 mmol/L (0.4-2.0) H 1.90 mmol/L (0.66-2.22) Uric Acid 5.7 MG/DL (2.6-7.2) Calcium Level 8.4 MG/DL (8.5-10.1) L Phosphorus Level 3.3 MG/DL (2.5-4.9) Magnesium Level 2.1 MG/DL (1.8-2.4) Total Bilirubin 0.5 MG/DL (0.2-1.0) Gamma Glutamyl Transpeptidase 8 U/L (5-85) Aspartate Amino Transf (AST/SGOT) 15 U/L (15-37) Alanine Aminotransferase (ALT/SGPT) 7 U/L (12-78) L Alkaline Phosphatase 75 U/L (46-116) Ammonia 11 umol/L (11-32) C-Reactive Protein, Quantitative 11.3 mg/dL (0.00-0.90) H Pro-B-Type Natriuretic Peptide > 50423 pg/mL (0-125) H Total Protein 7.0 G/DL (6.4-8.2) Albumin 1.5 G/DL (3.4-5.0) L Globulin 5.5 g/dL Albumin/Globulin Ratio 0.3 (1.0-2.7) L Microbiology Date/Time Source Procedure Growth Status 07/25/18 08:35 Nasal Nares Influenza Types A,B Antigen (FARSHAD) - Final Complete 07/25/18 08:30 Urine,Clean Catch Urine Culture - Preliminary Gram Negative Bacillus 1 Resulted Angelo Butler MD Jul 26, 2018 18:56
--- NOTE | 2018-07-26 19:22 | NUR ---
HAND-OFF: Report given to BALDO Noriega. Dr. Butler at facility, was updated on patient's status was A. fib RVR but converted to SR, still on levophed drip.
--- NOTE | 2018-07-26 19:30 | NUR ---
NURSE NOTES: Recvd.on a Vent.Awake,Alert orally intubated,see settings.S/P BRONCHO.by Sat-99-100%.Suctioned beige tk. sec.NS Lavaged.See V/S.LEVO.drip in progress TIT.to BPS>90.Scope SR had episodes of AT-Fib with RVR. aware.See order for amiodarone.Pos. chg.Maintain on Restraints prev.self-injury.AVF (L) upper arm pos.thrill and Bruit.Renetta.for poss.HD in am.IRC Hemodialysis aware
[2018-07-26] MEDS: Dyna-Hex 2% Top Sol 2oz TOPIC SCH (20:26)
[2018-07-26] MEDS: Amiodarone 200mg tab ORAL SCH (20:33)
--- NOTE | 2018-07-26 21:31 | NUR ---
NURSE NOTES: HS care rendered.Pos to comfort.Due ophthalmic medical assistant.FSBS-128,covered.Suctioned.See V/S.Levo drip taper down to 6mcg/min. Addendum: 07/26/18 at 2258 by KARAN MCKEE RN error in FSBS.No accucheck.
--- NOTE | 2018-07-26 23:10 | NUR ---
NURSE NOTES: Able to taper off LEVO.DRIP.See V/S.IV access avail.now for ALBUMIN infusion.
[2018-07-26] MEDS: DOPamine 400mg/250ml 250 ML IV SCH (23:30)
[2018-07-27] VITALS (27 sets, daily range): BP systolic 90–150; BP diastolic 10–61
--- NOTE | 2018-07-27 02:00 | NUR ---
NURSE NOTES: Repositioned,Suctioned.See V/S.Cont. Ca.Monitoring.No distress.
--- NOTE | 2018-07-27 04:30 | NUR ---
NURSE NOTES: See V/S.Remain OFF Levo.drip.Cont.on IV Hydration.Carola Mccall chg.Blood drawn for cbc/cmp etc.spec.to lab.
[2018-07-27 05:26] LABS: HEMATOCRIT 22.2 % (37.0-47.0); MEAN CORPUSCULAR VOLUME 93 FL (80-99); PLATELET COUNT 254 K/UL (150-450); RED BLOOD COUNT 2.39 M/UL (4.20-5.40); WHITE BLOOD COUNT 13.7 K/UL (4.8-10.8)
[2018-07-27 05:28] LABS: HEMOGLOBIN 6.7 G/DL (12.0-16.0)
[2018-07-27 05:39] LABS: ALANINE AMINOTRANSFERASE 6 U/L (12-78); ALBUMIN 1.6 G/DL (3.4-5.0); ALBUMIN/GLOBULIN RATIO 0.4 (1.0-2.7); ALKALINE PHOSPHATASE 61 U/L (46-116); ANION GAP 12 mmol/L (5-15); ASPARTATE AMINO TRANSFERASE 11 U/L (15-37); BILIRUBIN,TOTAL 0.6 MG/DL (0.2-1.0); BLOOD UREA NITROGEN 52 mg/dL (7-18); CARBON DIOXIDE 23 MMOL/L (21-32); CHLORIDE 103 MMOL/L (98-107); CREATININE 3.7 MG/DL (0.55-1.30); POTASSIUM 4.2 MMOL/L (3.5-5.1); SODIUM 138 MMOL/L (136-145)
[2018-07-27 05:41] LABS: % IRON SATURATION 16 % (15-50); IRON 13 ug/dL (50-175); TOTAL IRON BINDING CAPACITY 83 ug/dL (250-450)
[2018-07-27 05:42] LABS: FERRITIN 1080 NG/ML (8-388); PHOSPHORUS 3.1 MG/DL (2.5-4.9)
[2018-07-27 06:06] LABS: HEMATOCRIT 22.1 % (37.0-47.0); MEAN CORPUSCULAR VOLUME 91 FL (80-99); PLATELET COUNT 253 K/UL (150-450); RED BLOOD COUNT 2.41 M/UL (4.20-5.40); RED CELL DISTRIBUTION WIDTH 19.7 % (11.6-14.8); WHITE BLOOD COUNT 13.3 K/UL (4.8-10.8)
[2018-07-27 06:09] LABS: HEMOGLOBIN 6.8 G/DL (12.0-16.0)
[2018-07-27] MEDS: D5NS 1,000 ML IV SCH (06:11)
[2018-07-27] MEDS: Zosyn 2.25 gm in D5W 55ml IV SCH (06:11)
--- NOTE | 2018-07-27 07:33 | NUR ---
HAND-OFF: Report given to BALDO SAHNI.
--- NOTE | 2018-07-27 07:34 | NUR ---
NURSE NOTES: Patient received lying in bed, awake, alert, orally intubated ET size 7.5, lip at 23cm vent settings: AC 20, TV-500, FiO2 50%, PEEP-5, saturating 100%. Left nare NG tube in place, NPO. Bilateral soft wrist restraints in place, pulses intact. Left ARM with swelling noted, left arm AV shunt. Hanson intact and draining, pinkish with sediments to whitish colored output. Right upper Arm Midline running D5S at 50 ml/hr. Sinus Rhythm on the monitor rate 70. Will continue to monitor the patient. Pending hemodialysis today.
--- NOTE | 2018-07-27 08:20 | NUR ---
NURSE NOTES: Dr. He made aware of hemoglobin 6.8, hct 22.1, from hgb 9.0 yesterday, orders received to transfuse 1 unit PRBC and epogen 91645 units SQ every MWF. Order noted and carried out.
[2018-07-27] MEDS: Pantoprazole Inj IVP SCH ×2 (09:12→21:15)
[2018-07-27] MEDS: Amiodarone 200mg tab ORAL SCH ×2 (09:13→21:15)
--- NOTE | 2018-07-27 10:15 | Nephrology Progress Note ---
Assessment/Plan Assessment Seee below Plan Sepsis due to infected diabetic ulcers, R/O Osteo. On IV Abx. Called ID, Vasc. Sx, Podiatry. Septic Shock pressors PRN ESRD HD q MWF Anemia of CKD transfuse today, DARRYN high dose. Resp Failure - Vent per Pul. Try to wean Subjective Subjective Awake + alert Objective Objective Last 24 Hour Vital Signs Date Time Temp Pulse Resp B/P (MAP) Pulse Ox O2 Delivery O2 Flow Rate FiO2 07/27/18 08:40 65 20 40 07/27/18 08:00 50 07/27/18 08:00 Mechanical Ventilator Mechanical Ventilator Mechanical Ventilator 07/27/18 06:46 60 20 40 07/27/18 06:30 71 20 116/61 (79) 100 07/27/18 06:00 61 20 102/24 (50) 100 07/27/18 06:00 Mechanical Ventilator Mechanical Ventilator Mechanical Ventilator 07/27/18 05:20 61 20 40 07/27/18 05:00 63 20 108/29 (55) 100 07/27/18 04:00 50 07/27/18 04:00 Mechanical Ventilator Mechanical Ventilator Mechanical Ventilator 07/27/18 04:00 66 20 102/18 (46) 100 07/27/18 04:00 66 07/27/18 03:00 71 20 40 07/27/18 03:00 70 20 105/22 (49) 100 07/27/18 02:00 Mechanical Ventilator Mechanical Ventilator Mechanical Ventilator 07/27/18 02:00 68 20 105/25 (51) 100 07/27/18 01:30 67 20 100/22 (48) 100 07/27/18 01:00 71 20 40 07/27/18 01:00 72 20 104/24 (50) 100 07/27/18 00:30 65 20 100/26 (50) 100 07/27/18 00:00 50 07/27/18 00:00 Mechanical Ventilator Mechanical Ventilator Mechanical Ventilator 07/27/18 00:00 98.7 73 20 90/17 (41) 100 07/27/18 00:00 69 07/26/18 23:30 97/22 07/26/18 23:30 73 20 97/22 (47) 100 07/26/18 23:00 77 20 95/18 (43) 100 07/26/18 22:50 71 20 40 07/26/18 22:30 69 20 122/28 (59) 100 07/26/18 22:00 69 20 126/31 (62) 99 07/26/18 21:30 70 20 125/30 (61) 100 07/26/18 21:28 115/29 07/26/18 21:19 72 20 40 07/26/18 21:00 74 20 115/29 (57) 100 07/26/18 20:45 72 17 133/37 (69) 100 07/26/18 20:30 72 20 143/40 (74) 100 07/26/18 20:15 71 20 131/36 (67) 100 07/26/18 20:00 Mechanical Ventilator Mechanical Ventilator Mechanical Ventilator 07/26/18 20:00 50 07/26/18 20:00 72 07/26/18 20:00 98.9 72 17 131/36 (67) 100 07/26/18 19:30 73 17 130/35 (66) 100 07/26/18 19:28 73 16 40 07/26/18 19:00 74 16 132/34 (66) 100 07/26/18 18:30 72 16 132/37 (68) 100 07/26/18 18:00 141/39 07/26/18 18:00 72 16 132/37 (68) 100 07/26/18 17:30 78 16 140/40 (73) 100 07/26/18 17:00 78 16 153/39 (77) 100 07/26/18 17:00 153/39 07/26/18 16:35 79 16 50 07/26/18 16:30 78 16 153/42 (79) 100 07/26/18 16:00 Mechanical Ventilator Mechanical Ventilator Mechanical Ventilator 07/26/18 16:00 76 07/26/18 16:00 153/42 07/26/18 16:00 78 20 146/43 (77) 100 07/26/18 15:30 77 20 152/45 (80) 100 07/26/18 15:17 74 20 50 07/26/18 15:00 78 20 142/51 (81) 100 07/26/18 14:36 154/54 07/26/18 14:30 118 20 154/67 (96) 93 07/26/18 14:00 114 20 132/51 (78) 100 07/26/18 14:00 132/51 07/26/18 13:57 50 07/26/18 13:40 50 07/26/18 13:25 118 20 114/51 (72) 100 07/26/18 13:20 118 20 117/54 (75) 100 07/26/18 13:15 121 20 87/56 (66) 94 07/26/18 13:10 119 20 62/34 (43) 94 07/26/18 13:05 124 20 59/42 (48) 94 07/26/18 13:04 123 20 100 07/26/18 13:00 55/40 07/26/18 13:00 123 22 55/40 (45) 94 07/26/18 12:55 142 8 71 Facial 100 07/26/18 12:47 100 07/26/18 12:47 Mechanical Ventilator Mechanical Ventilator Mechanical Ventilator 07/26/18 12:30 122 22 103/32 (55) 93 07/26/18 12:00 128 07/26/18 12:00 138/42 07/26/18 12:00 98.9 120 22 138/42 (74) 82 07/26/18 11:30 128 22 139/42 (74) 91 07/26/18 11:13 140 18 Venturi Mask 12.0 40 07/26/18 11:13 Venturi Mask 12.0 40 07/26/18 11:11 Venturi Mask 12.0 40 07/26/18 11:00 136 22 135/53 (80) 91 07/26/18 11:00 135/53 07/26/18 10:30 143 22 135/62 (86) 91 Intake and Output 07/26/18 07/27/18 18:59 06:59 Intake Total 582.5 ml 755.0 ml Output Total 93 ml 30 ml Balance 489.5 ml 725.0 ml Intake Oral 0 ml 0 ml IV Total 582.5 ml 705.0 ml Other 50 ml Output Urine Total 93 ml 30 ml # Bowel Movements 1 Laboratory Tests 07/26/18 13:55: Arterial Blood pH 7.467H, Arterial Blood Partial Pressure CO2 33.5L, Arterial Blood Partial Pressure O2 274.6H, Arterial Blood HCO3 23.7, Arterial Blood Oxygen Saturation 99.8, Arterial Blood Base Excess 0.2, Silverio Test N/a 07/27/18 04:30: White Blood Count 13.7H, Red Blood Count 2.39L, Hemoglobin 6.7*L, Hematocrit 22.2L, Mean Corpuscular Volume 93, Mean Corpuscular Hemoglobin 28.0, Mean Corpuscular Hemoglobin Concent 30.2L, Red Cell Distribution Width 20.0H, Platelet Count 254, Mean Platelet Volume 6.3L, Neutrophils (%) (Auto) , Lymphocytes (%) (Auto) , Monocytes (%) (Auto) , Eosinophils (%) (Auto) , Basophils (%) (Auto) , Differential Total Cells Counted 100, Neutrophils % ( Manual) 89H, Lymphocytes % (Manual) 4L, Monocytes % (Manual) 4, Eosinophils % ( Manual) 3, Basophils % (Manual) 0, Band Neutrophils 0, Platelet Estimate Adequate, Platelet Morphology Normal, Hypochromasia 1+, Anisocytosis 1+, Sodium Level 138, Potassium Level 4.2, Chloride Level 103, Carbon Dioxide Level 23, Anion Gap 12, Blood Urea Nitrogen 52H, Creatinine 3.7H, Estimat Glomerular Filtration Rate , Glucose Level 72L, Uric Acid 6.7, Calcium Level 8.0L, Phosphorus Level 3.1, Magnesium Level 1.9, Iron Level 13L, Total Iron Binding Capacity 83L, Percent Iron Saturation 16, Unsaturated Iron Binding 70L, Ferritin 1080H, Total Bilirubin 0.6, Aspartate Amino Transf (AST/SGOT) 11L, Alanine Aminotransferase (ALT/SGPT) 6L, Alkaline Phosphatase 61, Troponin I 0.055, Pro-B-Type Natriuretic Peptide > 99717P, Total Protein 6.0L, Albumin 1.6L , Globulin 4.4, Albumin/Globulin Ratio 0.4L, Vitamin B12 Level 525, Folate 18.1 , Random Vancomycin Level 34.9 07/27/18 05:30: White Blood Count 13.3H, Red Blood Count 2.41L, Hemoglobin 6.8*L, Hematocrit 22.1L, Mean Corpuscular Volume 91, Mean Corpuscular Hemoglobin 28.0, Mean Corpuscular Hemoglobin Concent 30.6L, Red Cell Distribution Width 19.7H, Platelet Count 253, Mean Platelet Volume 6.1L, Neutrophils (%) (Auto) , Lymphocytes (%) (Auto) , Monocytes (%) (Auto) , Eosinophils (%) (Auto) , Basophils (%) (Auto) 07/27/18 08:30: Arterial Blood pH 7.565*H, Arterial Blood Partial Pressure CO2 25.5L, Arterial Blood Partial Pressure O2 70.1L, Arterial Blood HCO3 22.6, Arterial Blood Oxygen Saturation 94.9L, Arterial Blood Base Excess 0.7, Silvreio Test Positive Height (Feet): 5 Height (Inches): 2.00 Weight (Pounds): 131 Objective Intubated, On vent. Cv Rr Lungs B ivelissechi. Abd SNT. BS + E Rt. foot diabetic ulcers with pus Chase He MD Jul 27, 2018 10:15
--- NOTE | 2018-07-27 10:23 | Diagnostic Imaging Report ---
APPROVED REPORT CPT Code: 94185 Present Symptoms Shortness of breath BILATERAL: Imaging reveals a patent deep venous system bilaterally. There is no evidence of thrombus within the femoral, popliteal or tibial segments. The greater saphenous veins are also within normal limits. Doppler indicates normal spontaneous flow within these segments.
--- NOTE | 2018-07-27 10:39 | NUR ---
NURSE NOTES: Dr. Morfin made aware of patient positive for VRE of rectum, no orders at this time. Contact precaution implemented.
--- NOTE | 2018-07-27 11:37 | NUR ---
UNABLE TO PERFORM MRI BECAUSE PT ON VENT, WHICH CAN'T BE BROUGHT INTO M.R. MAGNET. BALDO SAHNI HAS BEEN INFORMED. TJB 11:38
--- NOTE | 2018-07-27 12:45 | Consultation ---
Consult Note Assessment/Plan A/ 1) Bilateral lower extremity wounds - arterial etiology? 2) Cellulitis RLE 2/2 infected wounds 3) DM 4) h/o PAD 5) ESRD P/ 1) Cont current wound care regimen. No surgical intervention indicated at this time. Leukocytosis resolving. 2) Vasc consult pending with Dr Sauceda. Will await recs 3) Abx per ID 4) Will cancel MRI of the foot at this time. Will need MRI of left ankle and left tib-fib. Discussed with nursing that patient was admitted with mid line access, unclear why. Nurse will call SNF to determine reason for access and if previous imaging done. 5) Will follow closely Thank you Nacho Coreas DPM Jul 27, 2018 12:45
--- NOTE | 2018-07-27 12:50 | NUR ---
CASE MANAGEMENT: REVIEW SI: A-FIB . SEPSIS . ESRD ON HD T 97.6 HR 66 RR 20 BP 98/23 SAT 98% MECH VENT FIO2 40 WBC 13.3 H/H 6.7/22.2 BUN 52 CR 3.7 IS: AMIODARONE PO Q12HR LEVOPHED GTT DOPAMINE GTT ICU STATUS DCP: PATIENT IS FROM [facility]
--- NOTE | 2018-07-27 12:59 | NUR ---
NURSE NOTES:WOUND CARE NOTES:Pt presented with multiple pressure injuries present on admission. Full thickness pressure injury to sacrum (L)(L)2.4cm x (W)4.4cm x (D)0.9cm, undermining 12-12 with tunneling 9-10 by 11.3cm. In close proximity to sacral wound on L buttocks purple ,indurated area with small area of slough measuring (L)0.6cm x (W)0.5cm noted. Arched surgical scar noted to L buttocks at site of tunneling. Resolving pressure injury noted to R ischium (L)3cm x (W)2cm. Wound bed epithelialized with maroon discoloration without induration periwound. Closed area with white pocket and purple margins noted to distal,carmela R tibia (L)6cm x (W)2.7cm.Pt flinched when site minimally palpated. Full thickness wound noted to distal/medial RLE (L)6.2cm x (W)3.8cm .Wound noted to have 95% mixed slough /necrosis ,marginal erythema. Wound malodorous.Wound posterior R tibia (L)4.7cm x (W) 3cm ,100% necrotic with marginal erythema. Dry eschar with marginal erythema (L)0.5cm x (W)0.7cm noted to medial R heel.Non-blanchable erythema noted to medial L malleolus. Dry brown eschar noted to medial L 1st malleolus (L)1.4cm x (W)1cm. L heel and lateral aspect boggy with non-blanchable erythema. Pt flinches when area minimally palpated. Tx.Plan:Cleanse sacral wound with Saline.Loose pack with Hydrogel impregnated packing strip (Attention to tunneled area at 9-10).Cover with Optifoam drsg Daily and prn. Reposition at least every 2hours or as tolerated. Air Fluidized mattress. Off-load heels with pillow.
[2018-07-27] MEDS: Meropenem 500 MG in NS 55 ML IVPB SCH (13:30)
--- NOTE | 2018-07-27 13:50 | General Surgery Progress Note ---
General Surgery-Progress Note Subjective Procedure Performed left subclavian central venous catheter insertion Additional Comments respiratory insufficiency; reintubated. wounds noted. Objective Last 24 Hour Vital Signs Date Time Temp Pulse Resp B/P (MAP) Pulse Ox O2 Delivery O2 Flow Rate FiO2 07/27/18 13:06 69 15 40 07/27/18 13:00 66 18 111/20 (50) 99 07/27/18 12:00 72 07/27/18 12:00 40 07/27/18 12:00 98.0 80 21 108/20 (49) 100 07/27/18 12:00 Mechanical Ventilator Mechanical Ventilator Mechanical Ventilator 07/27/18 11:00 80 21 109/21 (50) 100 07/27/18 10:59 76 14 40 07/27/18 10:08 63 12 07/27/18 10:00 63 20 104/23 (50) 100 07/27/18 09:00 65 20 98/23 (48) 98 07/27/18 08:40 65 20 40 07/27/18 08:00 97.6 66 20 104/21 (48) 96 07/27/18 08:00 50 07/27/18 08:00 Mechanical Ventilator Mechanical Ventilator Mechanical Ventilator 07/27/18 08:00 64 07/27/18 07:00 63 20 99/21 (47) 100 07/27/18 06:46 60 20 40 07/27/18 06:30 71 20 116/61 (79) 100 07/27/18 06:00 61 20 102/24 (50) 100 07/27/18 06:00 Mechanical Ventilator Mechanical Ventilator Mechanical Ventilator 07/27/18 05:20 61 20 40 07/27/18 05:00 63 20 108/29 (55) 100 07/27/18 04:00 50 07/27/18 04:00 Mechanical Ventilator Mechanical Ventilator Mechanical Ventilator 07/27/18 04:00 66 20 102/18 (46) 100 07/27/18 04:00 66 07/27/18 03:00 71 20 40 07/27/18 03:00 70 20 105/22 (49) 100 07/27/18 02:00 Mechanical Ventilator Mechanical Ventilator Mechanical Ventilator 07/27/18 02:00 68 20 105/25 (51) 100 07/27/18 01:30 67 20 100/22 (48) 100 07/27/18 01:00 71 20 40 07/27/18 01:00 72 20 104/24 (50) 100 07/27/18 00:30 65 20 100/26 (50) 100 07/27/18 00:00 50 07/27/18 00:00 Mechanical Ventilator Mechanical Ventilator Mechanical Ventilator 07/27/18 00:00 98.7 73 20 90/17 (41) 100 07/27/18 00:00 69 07/26/18 23:30 97/22 07/26/18 23:30 73 20 97/22 (47) 100 07/26/18 23:00 77 20 95/18 (43) 100 07/26/18 22:50 71 20 40 07/26/18 22:30 69 20 122/28 (59) 100 07/26/18 22:00 69 20 126/31 (62) 99 07/26/18 21:30 70 20 125/30 (61) 100 07/26/18 21:28 115/29 07/26/18 21:19 72 20 40 07/26/18 21:00 74 20 115/29 (57) 100 07/26/18 20:45 72 17 133/37 (69) 100 07/26/18 20:30 72 20 143/40 (74) 100 07/26/18 20:15 71 20 131/36 (67) 100 07/26/18 20:00 Mechanical Ventilator Mechanical Ventilator Mechanical Ventilator 07/26/18 20:00 50 07/26/18 20:00 72 07/26/18 20:00 98.9 72 17 131/36 (67) 100 07/26/18 19:30 73 17 130/35 (66) 100 07/26/18 19:28 73 16 40 07/26/18 19:00 74 16 132/34 (66) 100 07/26/18 18:30 72 16 132/37 (68) 100 07/26/18 18:00 141/39 07/26/18 18:00 72 16 132/37 (68) 100 07/26/18 17:30 78 16 140/40 (73) 100 07/26/18 17:00 78 16 153/39 (77) 100 07/26/18 17:00 153/39 07/26/18 16:35 79 16 50 07/26/18 16:30 78 16 153/42 (79) 100 07/26/18 16:00 Mechanical Ventilator Mechanical Ventilator Mechanical Ventilator 07/26/18 16:00 76 07/26/18 16:00 153/42 07/26/18 16:00 78 20 146/43 (77) 100 07/26/18 15:30 77 20 152/45 (80) 100 07/26/18 15:17 74 20 50 07/26/18 15:00 78 20 142/51 (81) 100 07/26/18 14:36 154/54 07/26/18 14:30 118 20 154/67 (96) 93 07/26/18 14:00 114 20 132/51 (78) 100 07/26/18 14:00 132/51 07/26/18 13:57 50 I&O Intake and Output 07/26/18 07/27/18 19:00 07:00 Intake Total 647.5 ml 667.5 ml Output Total 98 ml 55 ml Balance 549.5 ml 612.5 ml Intake Oral 0 ml 0 ml IV Total 647.5 ml 617.5 ml Other 50 ml Output Urine Total 98 ml 55 ml # Bowel Movements 1 Dressing: saturated Wound: other Drains: other Cardiovascular: RSR Respiratory: decreased breath sounds Abdomen: soft, flat, present bowel sounds Extremities: other Laboratory Tests Test 07/26/18 13:55 07/27/18 04:30 07/27/18 05:30 07/27/18 08:30 Arterial Blood pH 7.467 (7.350-7.450) 7.565 (7.350-7.450) Arterial Blood Partial Pressure CO2 33.5 mmHg (35.0-45.0) L 25.5 mmHg (35.0-45.0) L Arterial Blood Partial Pressure O2 274.6 mmHg (75.0-100.0) H 70.1 mmHg (75.0-100.0) L Arterial Blood HCO3 23.7 mmol/L (22.0-26.0) 22.6 mmol/L (22.0-26.0) Arterial Blood Oxygen Saturation 99.8 % (95-100) 94.9 % (95-100) L Arterial Blood Base Excess 0.2 (-2-2) 0.7 (-2-2) Silverio Test N/a Positive White Blood Count 13.7 K/UL (4.8-10.8) H 13.3 K/UL (4.8-10.8) H Red Blood Count 2.39 M/UL (4.20-5.40) L 2.41 M/UL (4.20-5.40) L Hemoglobin 6.7 G/DL (12.0-16.0) *L 6.8 G/DL (12.0-16.0) *L Hematocrit 22.2 % (37.0-47.0) L 22.1 % (37.0-47.0) L Mean Corpuscular Volume 93 FL (80-99) 91 FL (80-99) Mean Corpuscular Hemoglobin 28.0 PG (27.0-31.0) 28.0 PG (27.0-31.0) Mean Corpuscular Hemoglobin Concent 30.2 G/DL (32.0-36.0) L 30.6 G/DL (32.0-36.0) L Red Cell Distribution Width 20.0 % (11.6-14.8) H 19.7 % (11.6-14.8) H Platelet Count 254 K/UL (150-450) 253 K/UL (150-450) Mean Platelet Volume 6.3 FL (6.5-10.1) L 6.1 FL (6.5-10.1) L Neutrophils (%) (Auto) % (45.0-75.0) % (45.0-75.0) Lymphocytes (%) (Auto) % (20.0-45.0) % (20.0-45.0) Monocytes (%) (Auto) % (1.0-10.0) % (1.0-10.0) Eosinophils (%) (Auto) % (0.0-3.0) % (0.0-3.0) Basophils (%) (Auto) % (0.0-2.0) % (0.0-2.0) Differential Total Cells Counted 100 Neutrophils % (Manual) 89 % (45-75) H Lymphocytes % (Manual) 4 % (20-45) L Monocytes % (Manual) 4 % (1-10) Eosinophils % (Manual) 3 % (0-3) Basophils % (Manual) 0 % (0-2) Band Neutrophils 0 % (0-8) Platelet Estimate Adequate Platelet Morphology Normal Hypochromasia 1+ Anisocytosis 1+ Sodium Level 138 MMOL/L (136-145) Potassium Level 4.2 MMOL/L (3.5-5.1) Chloride Level 103 MMOL/L (98-107) Carbon Dioxide Level 23 MMOL/L (21-32) Anion Gap 12 mmol/L (5-15) Blood Urea Nitrogen 52 mg/dL (7-18) H Creatinine 3.7 MG/DL (0.55-1.30) H Estimat Glomerular Filtration Rate mL/min (>60) Glucose Level 72 MG/DL (74-106) L Uric Acid 6.7 MG/DL (2.6-7.2) Calcium Level 8.0 MG/DL (8.5-10.1) L Phosphorus Level 3.1 MG/DL (2.5-4.9) Magnesium Level 1.9 MG/DL (1.8-2.4) Iron Level 13 ug/dL (50-175) L Total Iron Binding Capacity 83 ug/dL (250-450) L Percent Iron Saturation 16 % (15-50) Unsaturated Iron Binding 70 ug/dL (112-346) L Ferritin 1080 NG/ML (8-388) H Total Bilirubin 0.6 MG/DL (0.2-1.0) Aspartate Amino Transf (AST/SGOT) 11 U/L (15-37) L Alanine Aminotransferase (ALT/SGPT) 6 U/L (12-78) L Alkaline Phosphatase 61 U/L (46-116) Troponin I 0.055 ng/mL (0.000-0.056) Pro-B-Type Natriuretic Peptide > 01683 pg/mL (0-125) H Total Protein 6.0 G/DL (6.4-8.2) L Albumin 1.6 G/DL (3.4-5.0) L Globulin 4.4 g/dL Albumin/Globulin Ratio 0.4 (1.0-2.7) L Vitamin B12 Level 525 PG/ML (193-986) Folate 18.1 NG/ML (8.6-58.9) Random Vancomycin Level 34.9 ug/mL Plan Problems: (1) Sepsis Assessment & Plan: acute decompensation hypotensive bradycardic respiratory decompensation requiring intubation and vent support - failed extubation midline being used and safe for now may need another line later if peripheral not possible - PICC thank you will follow with recs (2) Hypotension (3) Bradycardia (4) Altered mental status (5) Decubital ulcer Assessment & Plan: Patient with multiple pressure injuries where have been present since admission. Full thickness pressure injury to sacrum (L)(L)2.4cm x (W)4.4cm x (D)0.9cm, undermining 12-12 with tunneling 9-10 by 11.3cm. In close proximity to sacral wound on L buttocks purple ,indurated area with small area of slough measuring (L)0.6cm x (W)0.5cm noted. Arched surgical scar noted to L buttocks at site of tunneling. Resolving pressure injury noted to R ischium (L)3cm x (W)2cm. Wound bed epithelialized with maroon discoloration without induration periwound. Closed area with white pocket and purple margins noted to distal,carmela R tibia (L)6cm x (W)2.7cm Full thickness wound noted to distal/medial RLE (L)6.2cm x (W)3.8cm .Wound noted to have 95% mixed slough /necrosis ,marginal erythema. Wound malodorous. Wound posterior R tibia (L)4.7cm x (W) 3cm ,100% necrotic with marginal erythema. Dry eschar with marginal erythema (L)0.5cm x (W)0.7cm noted to medial R heel.Non-blanchable erythema noted to medial L malleolus. Dry brown eschar noted to medial L 1st malleolus (L)1.4cm x (W)1cm. L heel and lateral aspect boggy with non-blanchable erythema. Tx.Plan: Cleanse sacral wound with Saline.Loose pack with Hydrogel impregnated packing strip (Attention to tunneled area at 9-10).Cover with Optifoam drsg Daily and prn. Reposition at least every 2hours or as tolerated. Air Fluidized mattress. Off-load heels with pillow. Appreciate Podiatry and Vascular input Reji Nails Jul 27, 2018 13:50
--- NOTE | 2018-07-27 14:00 | NUR ---
NURSE NOTES: Patient's son Negro at bedside, able to interact with son. No complains of pain at this time. No acute respiratory distress.
--- NOTE | 2018-07-27 14:55 | NUR ---
NURSE NOTES: Patient started with 1 unit PRBC, verified blood and patient with Regina Koenig RN. VS taken and recorded in paper form. Son at bedside.
--- NOTE | 2018-07-27 17:34 | Cardiology Report ---
APPROVED REPORT EKG Measurement Heart [id number] Normal sinus rhythm Normal ECG
--- NOTE | 2018-07-27 18:02 | Cardiology Report ---
APPROVED REPORT EKG Measurement Heart [id number] Normal sinus rhythm Possible Left atrial enlargement Possible Anterior infarct, age undetermined Abnormal ECG
--- NOTE | 2018-07-27 18:15 | Consultation ---
DATE OF CONSULTATION: 07/27/2018 INFECTIOUS DISEASES CONSULTATION CONSULTING PHYSICIAN: Omid Morfin M.D. REFERRING PHYSICIAN: Chase He M.D. REASON FOR CONSULTATION: Decubitus ulcer infection. HISTORY OF PRESENTING ILLNESS: This is a 78-year-old lady with history of diabetes, renal failure, on dialysis, hypertension, GERD, dementia, who came in because she was hypotensive. She was found to have pneumonia and decubitus ulcer infection, and Infectious Diseases consultation has been obtained for antibiotics. PAST MEDICAL HISTORY: 1. History of diabetes. 2. Renal failure, on dialysis. 3. Hypertension. 4. Atrial fibrillation. 5. Anemia. 6. Dementia. 7. GERD. SOCIAL HISTORY: Unknown. FAMILY HISTORY: Unknown. REVIEW OF SYSTEMS: Unable to obtain currently. MEDICATIONS: As an inpatient, she is on Epogen, iron, amiodarone, chlorhexidine, subcutaneous heparin, Zosyn, lidocaine, Protonix, vancomycin, norepinephrine, dopamine. ALLERGIES: No known drug allergies. PHYSICAL EXAMINATION: VITAL SIGNS: Temperature of 97.6, T-max of 98.9, pulse of 63, respiratory rate of 12, blood pressure 104/23, O2 saturation 100%. HEENT: Pupils equally reactive to light and accommodation. Mouth appears clean without thrush. The patient is intubated. NECK: Supple. No adenopathy. No JVD. CARDIOVASCULAR: Regular rate and rhythm. No murmurs. LUNGS: Clear to auscultation bilaterally. No crackles. No wheezes. ABDOMEN: Soft and nontender. No organomegaly. EXTREMITIES: No cyanosis, no clubbing, and no edema. Right arm PICC line noted. SKIN: Sacral decubitus ulcer noted. Left heel ulcer noted, which is necrotic. Leg ulcer noted, which is necrotic on the right side. LABORATORY AND DIAGNOSTIC DATA: White count 13.3, hemoglobin 6.8, hematocrit 22.1, MCV 91, and platelet count of 253,000. Sodium 138, potassium 4.2, chloride 103, bicarbonate 23, BUN 52, creatinine 3.7, glucose 72, calcium 8. Total bilirubin 0.6, AST 11, ALT 6, alkaline phosphatase 61. Beta-natriuretic peptide more than 35,000. Total protein 6, albumin 1.6. UA is showing too numerous to count white cells. Urine culture is growing ESBL E. coli which is susceptible to piperacillin and tazobactam as well as ertapenem, as well as Streptococcus species. 07/25/2018, rectal swab was positive for VRE. 07/25/2018, blood cultures are negative. 07/25/2018, nasal swab was negative for influenza A and B. ASSESSMENT: Chest x-ray is showing somewhat improved aeration of the left lung, this may be due to decreased pleural fluid versus atelectasis, large left-sided pleural effusion [id number] right-sided pleural effusion noted. 2D echocardiogram is showing trace aortic regurgitation, moderate mitral regurgitation, severe pulmonary hypertension noted. Ultrasound of legs showed no evidence of DVT. Abdominal ultrasound is showing surgically absent gallbladder, negative for dilated ducts, medical renal disease noted, large right-sided pleural effusion noted. CT of head is showing no gross bleed or mass effect, chronic age-related changes noted, old right internal capsule lacunar infarct noted. ASSESSMENT: 1. This is a 78-year-old lady with history of dementia, diabetes, renal failure, on dialysis, who comes in with altered mental status and was found to have ESBL E. coli urinary tract infection as well as Streptococcus urinary tract infection, would be concerned regarding VRE urinary tract infection. 2. Septic shock. 3. Leukocytosis is improving. 4. Decubitus ulcer infection. PLAN: 1. Discontinue vancomycin and Zosyn. 2. We will start the patient on meropenem and linezolid. 3. We will follow up cultures and adjust antibiotics accordingly. I would like to thank, Dr. He, for this consultation. Omid Morfin M.D. DR: Oliverio JOB#: [id number] CC: Chase He M.D.; Fax#: [phone]
--- NOTE | 2018-07-27 18:36 | NUR ---
NURSE NOTES: 1 unit PRBC Blood transfusion finished, VS taken and recorded , BP - 115/48, HR- 68, T-98.0 axillary, RR-18. No transfusion reaction noted. Currently getting hemodialysis.
--- NOTE | 2018-07-27 19:30 | NUR ---
NURSE NOTES: Recvd.on a vent.orally intubated.See settings.Lungs few scatt Rh.P.Ox-96%.suctioned tk.beige sec.NS Lavaged.On soft wrist restraints prev.self-injury.AVF (L) upper arm HD in progress.See V/s.Scope SR.denies CP.
--- NOTE | 2018-07-27 19:39 | NUR ---
HAND-OFF: Report given to BALDO Noriega.
--- NOTE | 2018-07-27 20:15 | Consultation ---
DATE OF CONSULTATION: 07/27/2018 CONSULTING PHYSICIAN: Nacho Morin D.P.M. REQUESTING PHYSICIAN: Chase He M.D. REASON FOR CONSULTATION: Nonhealing chronic ulcers of bilateral lower extremities that are infected. HISTORY OF PRESENT ILLNESS: The patient is a 78-year-old female, who was admitted to [facility] on 07/25/2018 for pyelonephritis and altered mental status. The patient had a complicated emergency department course requiring intubation. History was mainly obtained through chart review. It was noted the patient has been admitted from [facility] and had some type of midline placed. Unclear what the access was used for. PAST MEDICAL HISTORY: Significant for bradycardia, sepsis, hypertension, pneumonia, pyelonephritis, altered mental status, end-stage renal disease, hypoalbuminemia, history of dysphagia, history of recurrent urinary tract infections, diabetes mellitus, atrial fibrillation, dementia, gastroesophageal reflux disease, and neuralgia. MEDICATIONS: Per [facility] and include linezolid, meropenem, heparin, and single dose of Zosyn. ALLERGIES: She has no known drug allergies. SOCIAL HISTORY: Noncontributory. REVIEW OF SYSTEMS: Unobtainable as the patient is intubated. PHYSICAL EXAMINATION: VITAL SIGNS: Temperature is 97.6, pulse is 69, respiration is 15, blood pressure is 104/23, and saturating 100% on ventilator. LOWER EXTREMITY: Vascular, nonpalpable pedal pulses noted bilaterally. Feet are equally warm. No cyanosis is noted. DERMATOLOGICAL: Full-thickness ulceration is noted on the right posterior leg, which is completely necrotic. There is erythematous border noted. Mild serous discharge is noted from the site. There is a right anterior leg ulcer, which appears superficial in nature. Periwound erythema is noted. Again, mild serous drainage, but no bone or tendon exposed. There is a full-thickness right medial ankle wound that is down to the level of muscle. No bone or tendon is exposed. This is the largest and most extensive wound on the lower extremity. Moderate amount of serous drainage is noted. No malodor is noted from the site. Periwound erythema is noted. There are two small areas of necrosis on the left heel as well as the left hallux. These are completely dry. No signs of infection are noted. MUSCULOSKELETAL: No gross deformities are noted. LABORATORY DATA: White blood cell count is 13.3, down from yesterday of 21.0, hemoglobin and hematocrit is 6.8 and 22.1, and platelet count is 253,000. Potassium is 4.2, BUN is 52, and creatinine is 3.7. Lactic acid is 1.90. Glucose is 72. C-reactive protein is 11.3. Total protein is 1.5. INR 0.9. A venous ultrasounds of bilateral lower extremities shows no deep venous thrombosis. CULTURES: Rectal cultures positive for vancomycin resistant enterococcus. Urine cultures are positive for ESBL. Blood cultures, no growth x2 after 24 hours. ASSESSMENT: 1. Bilateral lower extremity wounds-arterial etiology? 2. Cellulitis, right lower extremity secondary to infected wounds. 3. Diabetes mellitus. 4. History of peripheral arterial disease. 5. End-stage renal disease. PLAN: 1. Continue wound care regimen. No surgical intervention is indicated at this time. Leukocytosis is resolving. 2. Vascular consult is pending with Dr. Sauceda. We will await records. 3. Continue antibiotics per Infectious Disease. 4. We will cancel MRI of the foot at this time. We will need an MRI of the left ankle and left tib fib, but discussed with nursing that the patient was admitted with a midline access unclear why. Nurse will call a half-way facility to determine the reason for access and if previous imaging done to elaborate if access was needed for antibiotic course for possible osteomyelitis. 5. We will follow closely. Thank you for the courtesy of this consultation, Dr. He. Nacho Morin D.P.M. DR: RADHA JOB#: [id number] CC:
[2018-07-27] MEDS: Dyna-Hex 2% Top Sol 2oz TOPIC SCH (21:04)
[2018-07-27] MEDS: Iron Sucrose 100 MG in NS 55 ML IV SCH (21:15)
[2018-07-27] MEDS: Epogen (for ESRD on dialysis) SUBQ SCH (21:16)
--- NOTE | 2018-07-27 22:01 | Cardiology Progress Note ---
Assessment/Plan Assessment/Plan 1. Hypotension, possibly sepsis versus volume. 2. Paroxysmal episodes of atrial fibrillation history. 3. Bradycardia secondary to medications, amiodarone possibly. 4. Diabetes mellitus. 5. End-stage renal disease, on hemodialysis. 6. Lung collapse. 7. Respiratory failure, status post intubation. 8. Dysphagia. 9. History of dementia. 10. Pulm htn 11. Pleural effusion in and out of afib will increae amiod for a few doses watch for devonte tele reviewed ekg reviewed echo personally reviewed lv function is hyperdynamic has bilat pleural effusion off vasopressor urine cx postive wean o ff vent may need to consider thoracentesis cotienu icu leve of care for now remain critically ill iv abx dialysis 1 liter removed Subjective Cardiovascular: Denies: chest pain, irregular heart rate, lightheadedness Respiratory: Denies: shortness of breath Gastrointestinal/Abdominal: Denies: abdominal pain Genitourinary: Denies: burning Subjective on the vent not verbal but communicates with head motion Objective Last 24 Hour Vital Signs Date Time Temp Pulse Resp B/P (MAP) Pulse Ox O2 Delivery O2 Flow Rate FiO2 07/27/18 21:27 102 17 40 07/27/18 19:29 70 14 40 07/27/18 18:00 68 18 114/36 (62) 100 07/27/18 17:11 68 15 40 07/27/18 17:00 68 16 140/28 (65) 99 07/27/18 16:00 68 07/27/18 16:00 98.0 68 16 131/15 (53) 98 07/27/18 16:00 40 07/27/18 16:00 Mechanical Ventilator Mechanical Ventilator Mechanical Ventilator 07/27/18 15:00 99.1 68 14 141/10 (53) 98 07/27/18 14:56 69 15 40 07/27/18 14:00 72 19 113/32 (59) 98 07/27/18 13:06 69 15 40 07/27/18 13:00 66 18 111/20 (50) 99 07/27/18 12:00 72 07/27/18 12:00 40 07/27/18 12:00 98.0 80 21 108/20 (49) 100 07/27/18 12:00 Mechanical Ventilator Mechanical Ventilator Mechanical Ventilator 07/27/18 11:00 80 21 109/21 (50) 100 11/28/18 10:59 76 14 40 07/27/18 10:08 63 12 07/27/18 10:00 63 20 104/23 (50) 100 07/27/18 09:00 65 20 98/23 (48) 98 07/27/18 08:40 65 20 40 07/27/18 08:00 97.6 66 20 104/21 (48) 96 07/27/18 08:00 50 07/27/18 08:00 Mechanical Ventilator Mechanical Ventilator Mechanical Ventilator 07/27/18 08:00 64 07/27/18 07:00 63 20 99/21 (47) 100 07/27/18 06:46 60 20 40 07/27/18 06:30 71 20 116/61 (79) 100 07/27/18 06:00 61 20 102/24 (50) 100 07/27/18 06:00 Mechanical Ventilator Mechanical Ventilator Mechanical Ventilator 07/27/18 05:20 61 20 40 07/27/18 05:00 63 20 108/29 (55) 100 07/27/18 04:00 50 07/27/18 04:00 Mechanical Ventilator Mechanical Ventilator Mechanical Ventilator 07/27/18 04:00 66 20 102/18 (46) 100 07/27/18 04:00 66 07/27/18 03:00 71 20 40 07/27/18 03:00 70 20 105/22 (49) 100 07/27/18 02:00 Mechanical Ventilator Mechanical Ventilator Mechanical Ventilator 07/27/18 02:00 68 20 105/25 (51) 100 07/27/18 01:30 67 20 100/22 (48) 100 07/27/18 01:00 71 20 40 07/27/18 01:00 72 20 104/24 (50) 100 07/27/18 00:30 65 20 100/26 (50) 100 07/27/18 00:00 50 07/27/18 00:00 Mechanical Ventilator Mechanical Ventilator Mechanical Ventilator 07/27/18 00:00 98.7 73 20 90/17 (41) 100 07/27/18 00:00 69 07/26/18 23:30 97/22 07/26/18 23:30 73 20 97/22 (47) 100 07/26/18 23:00 77 20 95/18 (43) 100 07/26/18 22:50 71 20 40 11/27/18 22:30 69 20 122/28 (59) 100 07/26/18 22:00 69 20 126/31 (62) 99 General Appearance: alert Neck: supple Cardiovascular: normal rate, regular rhythm Respiratory/Chest: lungs clear Abdomen: normal bowel sounds, non tender, soft Extremities: no swelling Intake and Output 07/26/18 07/27/18 18:59 06:59 Intake Total 582.5 ml 755.0 ml Output Total 93 ml 30 ml Balance 489.5 ml 725.0 ml Intake Oral 0 ml 0 ml IV Total 582.5 ml 705.0 ml Other 50 ml Output Urine Total 93 ml 30 ml # Bowel Movements 1 Laboratory Tests Test 07/27/18 04:30 07/27/18 05:30 07/27/18 08:30 White Blood Count 13.7 K/UL (4.8-10.8) H 13.3 K/UL (4.8-10.8) H Red Blood Count 2.39 M/UL (4.20-5.40) L 2.41 M/UL (4.20-5.40) L Hemoglobin 6.7 G/DL (12.0-16.0) *L 6.8 G/DL (12.0-16.0) *L Hematocrit 22.2 % (37.0-47.0) L 22.1 % (37.0-47.0) L Mean Corpuscular Volume 93 FL (80-99) 91 FL (80-99) Mean Corpuscular Hemoglobin 28.0 PG (27.0-31.0) 28.0 PG (27.0-31.0) Mean Corpuscular Hemoglobin Concent 30.2 G/DL (32.0-36.0) L 30.6 G/DL (32.0-36.0) L Red Cell Distribution Width 20.0 % (11.6-14.8) H 19.7 % (11.6-14.8) H Platelet Count 254 K/UL (150-450) 253 K/UL (150-450) Mean Platelet Volume 6.3 FL (6.5-10.1) L 6.1 FL (6.5-10.1) L Neutrophils (%) (Auto) % (45.0-75.0) % (45.0-75.0) Lymphocytes (%) (Auto) % (20.0-45.0) % (20.0-45.0) Monocytes (%) (Auto) % (1.0-10.0) % (1.0-10.0) Eosinophils (%) (Auto) % (0.0-3.0) % (0.0-3.0) Basophils (%) (Auto) % (0.0-2.0) % (0.0-2.0) Differential Total Cells Counted 100 Neutrophils % (Manual) 89 % (45-75) H Lymphocytes % (Manual) 4 % (20-45) L Monocytes % (Manual) 4 % (1-10) Eosinophils % (Manual) 3 % (0-3) Basophils % (Manual) 0 % (0-2) Band Neutrophils 0 % (0-8) Platelet Estimate Adequate Platelet Morphology Normal Hypochromasia 1+ Anisocytosis 1+ Sodium Level 138 MMOL/L (136-145) Potassium Level 4.2 MMOL/L (3.5-5.1) Chloride Level 103 MMOL/L (98-107) Carbon Dioxide Level 23 MMOL/L (21-32) Anion Gap 12 mmol/L (5-15) Blood Urea Nitrogen 52 mg/dL (7-18) H Creatinine 3.7 MG/DL (0.55-1.30) H Estimat Glomerular Filtration Rate mL/min (>60) Glucose Level 72 MG/DL (74-106) L Uric Acid 6.7 MG/DL (2.6-7.2) Calcium Level 8.0 MG/DL (8.5-10.1) L Phosphorus Level 3.1 MG/DL (2.5-4.9) Magnesium Level 1.9 MG/DL (1.8-2.4) Iron Level 13 ug/dL (50-175) L Total Iron Binding Capacity 83 ug/dL (250-450) L Percent Iron Saturation 16 % (15-50) Unsaturated Iron Binding 70 ug/dL (112-346) L Ferritin 1080 NG/ML (8-388) H Total Bilirubin 0.6 MG/DL (0.2-1.0) Aspartate Amino Transf (AST/SGOT) 11 U/L (15-37) L Alanine Aminotransferase (ALT/SGPT) 6 U/L (12-78) L Alkaline Phosphatase 61 U/L (46-116) Troponin I 0.055 ng/mL (0.000-0.056) Pro-B-Type Natriuretic Peptide > 09725 pg/mL (0-125) H Total Protein 6.0 G/DL (6.4-8.2) L Albumin 1.6 G/DL (3.4-5.0) L Globulin 4.4 g/dL Albumin/Globulin Ratio 0.4 (1.0-2.7) L Vitamin B12 Level 525 PG/ML (193-986) Folate 18.1 NG/ML (8.6-58.9) Random Vancomycin Level 34.9 ug/mL Arterial Blood pH 7.565 (7.350-7.450) Arterial Blood Partial Pressure CO2 25.5 mmHg (35.0-45.0) L Arterial Blood Partial Pressure O2 70.1 mmHg (75.0-100.0) L Arterial Blood HCO3 22.6 mmol/L (22.0-26.0) Arterial Blood Oxygen Saturation 94.9 % (95-100) L Arterial Blood Base Excess 0.7 (-2-2) Silverio Test Positive Microbiology Date/Time Source Procedure Growth Status 07/25/18 08:45 Blood Blood Culture - Preliminary NO GROWTH AFTER 24 HOURS Resulted 07/25/18 08:35 Blood Blood Culture - Preliminary NO GROWTH AFTER 24 HOURS Resulted 07/25/18 08:35 Nasal Nares Influenza Types A,B Antigen (FARSHAD) - Final Complete 07/25/18 08:30 Urine,Clean Catch Urine Culture - Preliminary Escherichia Coli - Esbl Streptococcus Species Resulted 07/25/18 11:16 Rectum VRE Culture - Final Enterococcus Faecium - Vre Complete Angelo Butler MD Jul 27, 2018 22:01
--- NOTE | 2018-07-27 22:10 | NUR ---
NURSE NOTES: HS care rendered.Pos. chg.Kept comfortable.Suctioned.HD completed Kenneth.procedure.Due meds admin.Cardioscope rhythm converted to At-Fib. aware.Pt.on Amio.
--- NOTE | 2018-07-27 22:14 | NUR ---
NURSE NOTES: F/cath D/C as ordered.
[2018-07-28] VITALS (22 sets, daily range): BP systolic 92–145; BP diastolic 12–93
--- NOTE | 2018-07-28 00:10 | NUR ---
NURSE NOTES: Suctioned,Pos.chg.See V/S.Scope rhythm remain on At-Fib.Asymptomatic.Cont monitoring.
--- NOTE | 2018-07-28 02:33 | NUR ---
Asleep,Repositioned.Status same.No distress.
--- NOTE | 2018-07-28 04:10 | NUR ---
NURSE NOTES: Carola Mccall chg.Suctioned.Kenneth.vent settings.More Awake,Alert.VSS.Scope Rhythm IN/OUT SR-At.FIB.Asymptomatic.
--- NOTE | 2018-07-28 07:00 | NUR ---
RESPIRATORY NOTE: Pt. was received on Mechanical ventilator: AC: 500, 12, 40%, +5. Patient is currently stable, but HR elevates. Patient is comfortable on current vent settings. will continue to monitor patient
--- NOTE | 2018-07-28 07:15 | NUR ---
NURSE NOTES: Received patient from BALDO Noriega. Patient received laying in bed, orally intubated ETT size 7.5, 23cm midline, Ac 12, TV 500, Fio2 40%, Peep 5, Bilateral lung sound of rhonchi. No acute distress noted, 02 saturation 97%. Patient is connected to ekg monitor tech HR 101, patient is A-FIB on the monitor. Paten is NPO, abdomen is soft and non tender. Patient is anuric. Patient has a right midline single lumen , patient and asymptomatic. Patient has a left AV shunt, bruit and thrill present. Patient left arm is edematous. Patients upper extremities and hands are swollen. Patient has several lower extremities wounds, pictures have been taken and dressing are dry and intact at this time. Call light has been given to patient and she has been instructed on how to use the call light, bed is locked and in the lowest position, bed alarm is on. Will continue to monitor patient and follow plan of care. Addendum: 07/28/18 at 1059 by MAISHA HUANG RN Patient also has bilateral wrist restraints pulses are present and skin at the wrist is intact.
--- NOTE | 2018-07-28 08:33 | NUR ---
NURSE NOTES: Called Dr. He to inform him that the patient does not have Labs for today and informed him that yesterday the hemoglobin was 6.8 and we have not had any labs drawn afterwards results. Awaiting call back.
[2018-07-28] MEDS: Pantoprazole Inj IVP SCH ×2 (08:44→20:37)
[2018-07-28] MEDS: Meropenem 500 MG in NS 55 ML IVPB SCH (08:45)
--- NOTE | 2018-07-28 09:15 | NUR ---
NURSE NOTES: Patient repositioned, patient orally suctioned with white tannish secretions. Oral care has been given. No acute distress noted. Patient bilateral wrist restraints has been released for repositioning and oral care, skin in intact and pulses are present. Patient will continue to be monitored.
[2018-07-28] MEDS: Amiodarone 200mg tab ORAL SCH ×2 (09:16→20:37)
--- NOTE | 2018-07-28 09:30 | NUR ---
NURSE NOTES:Dr. He came to visit the patient and made aware of todays no lab orders. Dr. He said labs are to be drawn with dialysis. Will continue to monitor patient and follow plan of care.
--- NOTE | 2018-07-28 09:48 | Nephrology Progress Note ---
Assessment/Plan Assessment Seee below Plan MOF Sepsis due to infected diabetic ulcers, R/O Osteo. On IV Abx. Called ID, Vasc. Sx, Podiatry. Septic Shock pressors PRN ESRD HD q MWF Anemia of CKD transfuse today, DARRYN high dose. Resp Failure - Vent per Pul. Try to wean 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 with LAE. LVEF 65% . Anticoagulate? Subjective Subjective Awake + alert. Having leg Arterial Duplex. Objective Objective Last 24 Hour Vital Signs Date Time Temp Pulse Resp B/P (MAP) Pulse Ox O2 Delivery O2 Flow Rate FiO2 07/28/18 09:29 94 14 40 07/28/18 06:51 107 13 40 07/28/18 06:00 100 13 133/27 (62) 96 07/28/18 05:14 98 13 40 07/28/18 05:00 101 14 135/39 (71) 96 07/28/18 04:00 Mechanical Ventilator Mechanical Ventilator Mechanical Ventilator 07/28/18 04:00 40 07/28/18 04:00 98.5 100 16 124/44 (70) 100 07/28/18 04:00 100 07/28/18 03:10 108 15 40 07/28/18 03:00 103 15 123/36 (65) 98 07/28/18 02:00 101 14 111/38 (62) 100 07/28/18 01:00 106 16 117/39 (65) 100 07/28/18 00:46 102 14 40 07/28/18 00:00 40 07/28/18 00:00 Mechanical Ventilator Mechanical Ventilator Mechanical Ventilator 07/28/18 00:00 98.8 105 16 110/34 (59) 97 07/28/18 00:00 105 07/27/18 23:00 102 15 107/29 (55) 97 07/27/18 22:42 107 13 40 07/27/18 22:00 108 16 118/42 (67) 98 07/27/18 21:27 102 17 40 07/27/18 21:00 107 17 110/29 (56) 98 07/27/18 20:00 Mechanical Ventilator Mechanical Ventilator Mechanical Ventilator 07/27/18 20:00 106 07/27/18 20:00 98.7 106 17 139/35 (69) 94 07/27/18 20:00 40 07/27/18 19:29 70 14 40 07/27/18 19:00 76 20 150/31 (70) 96 07/27/18 18:00 68 18 114/36 (62) 100 07/27/18 17:11 68 15 40 07/27/18 17:00 68 16 140/28 (65) 99 07/27/18 16:00 68 07/27/18 16:00 98.0 68 16 131/15 (53) 98 07/27/18 16:00 40 07/27/18 16:00 Mechanical Ventilator Mechanical Ventilator Mechanical Ventilator 07/27/18 15:00 99.1 68 14 141/10 (53) 98 07/27/18 14:56 69 15 40 07/27/18 14:00 72 19 113/32 (59) 98 07/27/18 13:06 69 15 40 07/27/18 13:00 66 18 111/20 (50) 99 07/27/18 12:00 72 07/27/18 12:00 40 07/27/18 12:00 98.0 80 21 108/20 (49) 100 07/27/18 12:00 Mechanical Ventilator Mechanical Ventilator Mechanical Ventilator 07/27/18 11:00 80 21 109/21 (50) 100 07/27/18 10:59 76 14 40 07/27/18 10:08 63 12 07/27/18 10:00 63 20 104/23 (50) 100 Intake and Output 07/27/18 07/28/18 19:00 07:00 Intake Total 290 ml 110 ml Output Total 105 ml 0 ml Balance 185 ml 110 ml Intake Oral 60 ml 0 ml Free Water 120 ml IV Total 110 ml 60 ml Other 50 ml Output Urine Total 105 ml 0 ml Height (Feet): 5 Height (Inches): 2.00 Weight (Pounds): 130 Objective Intubated, On vent. Cv IRR/IRR Lungs B facundo. Abd SNT. BS + E Rt. foot diabetic ulcers with pus Chase He MD Jul 28, 2018 09:48
[2018-07-28] MEDS ORDERED: Heparin Sod 1000 units/ml 10ml IV PRN (09:54)
--- NOTE | 2018-07-28 10:05 | Infectious Diseases Prog Note ---
Assessment/Plan Assessment/Plan A: Sepsis UTI Cellulitis of R leg Hypercapnic respiratory failure ESRD on HD DM Anemia Dementia PVD R pleural effusion Mucous plug P; Continue Zyvox & Meropenem Subjective ROS Limited/Unobtainable: Yes Neurologic: Reports: other - on restraint Allergies: Coded Allergies: No Known Allergies (Unverified , 07/25/18) Objective Vital Signs Last 24 Hour Vital Signs Date Time Temp Pulse Resp B/P (MAP) Pulse Ox O2 Delivery O2 Flow Rate FiO2 07/28/18 09:29 94 14 40 07/28/18 06:51 107 13 40 07/28/18 06:00 100 13 133/27 (62) 96 07/28/18 05:14 98 13 40 07/28/18 05:00 101 14 135/39 (71) 96 07/28/18 04:00 Mechanical Ventilator Mechanical Ventilator Mechanical Ventilator 07/28/18 04:00 40 07/28/18 04:00 98.5 100 16 124/44 (70) 100 07/28/18 04:00 100 07/28/18 03:10 108 15 40 07/28/18 03:00 103 15 123/36 (65) 98 07/28/18 02:00 101 14 111/38 (62) 100 07/28/18 01:00 106 16 117/39 (65) 100 07/28/18 00:46 102 14 40 07/28/18 00:00 40 07/28/18 00:00 Mechanical Ventilator Mechanical Ventilator Mechanical Ventilator 07/28/18 00:00 98.8 105 16 110/34 (59) 97 07/28/18 00:00 105 07/27/18 23:00 102 15 107/29 (55) 97 07/27/18 22:42 107 13 40 07/27/18 22:00 108 16 118/42 (67) 98 07/27/18 21:27 102 17 40 07/27/18 21:00 107 17 110/29 (56) 98 07/27/18 20:00 Mechanical Ventilator Mechanical Ventilator Mechanical Ventilator 07/27/18 20:00 106 07/27/18 20:00 98.7 106 17 139/35 (69) 94 07/27/18 20:00 40 07/27/18 19:29 70 14 40 07/27/18 19:00 76 20 150/31 (70) 96 07/27/18 18:00 68 18 114/36 (62) 100 07/27/18 17:11 68 15 40 07/27/18 17:00 68 16 140/28 (65) 99 07/27/18 16:00 68 07/27/18 16:00 98.0 68 16 131/15 (53) 98 07/27/18 16:00 40 07/27/18 16:00 Mechanical Ventilator Mechanical Ventilator Mechanical Ventilator 07/27/18 15:00 99.1 68 14 141/10 (53) 98 07/27/18 14:56 69 15 40 07/27/18 14:00 72 19 113/32 (59) 98 07/27/18 13:06 69 15 40 07/27/18 13:00 66 18 111/20 (50) 99 07/27/18 12:00 72 07/27/18 12:00 40 07/27/18 12:00 98.0 80 21 108/20 (49) 100 07/27/18 12:00 Mechanical Ventilator Mechanical Ventilator Mechanical Ventilator 07/27/18 11:00 80 21 109/21 (50) 100 07/27/18 10:59 76 14 40 07/27/18 10:08 63 12 07/27/18 10:00 63 20 104/23 (50) 100 Height (Feet): 5 Height (Inches): 2.00 Weight (Pounds): 130 HEENT: other - orally intubated Respiratory/Chest: decreased breath sounds, other - in R side, on ventilator Abdomen: soft, non tender Extremities: other - mild edema of left arm Skin: ulcers Neurologic/Psychiatric: alert, responsive Microbiology Date/Time Source Procedure Growth Status 07/25/18 11:16 Rectum VRE Culture - Final Enterococcus Faecium - Vre Complete Current Medications Medications (Trade) Dose Ordered Sig/Renetta Route PRN Reason Start Time Stop Time Status Last Admin Dose Admin Amiodarone HCl (Cordarone) 200 mg EVERY 12 HOURS ORAL 07/26/18 21:00 08/25/18 20:59 07/28/18 09:16 Chlorhexidine Gluconate (Rylie-Hex 2%) 1 applic DAILY@1999 TOPIC 07/26/18 20:00 08/25/18 19:59 07/27/18 21:04 Epoetin Paul (Procrit (for ESRD on dialysis)) 10,000 units WED-WED-WED SUBQ 07/27/18 21:00 08/26/18 20:59 07/27/18 21:16 Iron Sucrose 100 mg/Sodium Chloride 60 ml @ 240 mls/hr BEDTIME IV 07/27/18 21:00 07/31/18 21:14 07/27/18 21:15 Linezolid (Zyvox) 600 mg EVERY 12 HOURS ORAL 07/27/18 21:00 08/01/18 20:59 07/28/18 08:44 Meropenem 500 mg/ Sodium Chloride 55 ml @ 110 mls/hr DAILY IVPB 07/27/18 12:00 08/01/18 11:59 07/28/18 08:45 Norepinephrine Bitartrate 4 mg/ Dextrose 250 ml @ 0 mls/hr Q24H IV 07/25/18 16:30 08/24/18 16:29 07/26/18 21:28 Pantoprazole (Protonix) 40 mg Q12HR IVP 07/25/18 21:00 08/25/18 08:59 07/28/18 08:44 Freedom Randolph MD Jul 28, 2018 10:05
--- NOTE | 2018-07-28 10:30 | NUR ---
NURSE NOTES: Patient repositioned, patient is alert and trying to mouth words, patient is A-fib on the monitor. Patient now has orders for weaning protocol. No acute distress noted. Will continue to monitor patient and follow plan of care.
--- NOTE | 2018-07-28 11:35 | NUR ---
Social Service Note Patient currently orally intubated, opened eyes briefly and unable to make needs known. Patient is a resident of [facility] 07/14/2018. Patient receives dialysis at [facility] [phone], T,TH,Sat at 745am. SW obtained a copy of patient's advance directive from [facility]. Patient's son Negro Consbruck [phone] and Wes Consbruck [phone]. SW addressed code status, patient is a full code at this time. POLST in chart. Son is requesting a nursing facility in the [facility] to be closer to him and his brother. ALBERT will inform CM. Will monitor and assist as needed.
--- NOTE | 2018-07-28 12:00 | NUR ---
RESPIRATORY NOTE: Patient put on CPAP PS: 8, +5, 40% will continue to monitor patient.
--- NOTE | 2018-07-28 12:30 | NUR ---
NURSE NOTES: patient had a BM, patient cleaned and repositioned. Patient weaning trial has begun with Cpap 8, 40% fio2, 02 saturation 95%. No acute distress noted at this time. Bilateral heels are elevated, bilateral heel protectors. patient is afebrile.Head of bed is at 30 degrees, bed is locked an in the lowest position. Will continue to monitor the patient and follow plan of care.
--- NOTE | 2018-07-28 13:04 | Pulmonology Progress Note ---
Assessment/Plan Assessment/Plan IMPRESSION: 1. Hypotension. 2. Sepsis. 3. Atrial fibrillation. 4. Bradycardia. 5. Diabetes mellitus. 6. End-stage renal disease on dialysis. 7. Left lung collapse. 8. Respiratory failure. 9. Dysphagia. 10. Dementia. DISCUSSION: 1. Continue medications. 2. as needed Levophed. 3. status post bronchoscopy 4. Central access 5. Use broad-spectrum antibiotics. 6. continue weaning attempts Andres Allan M.D. Subjective Interval Events: remains intubated Constitutional: Reports: no symptoms HEENT: Repors: no symptoms Respiratory: Reports: no symptoms Cardiovascular: Reports: no symptoms Gastrointestinal/Abdominal: Reports: no symptoms Genitourinary: Reports: no symptoms Allergies: Coded Allergies: No Known Allergies (Unverified , 07/25/18) Objective Last 24 Hour Vital Signs Date Time Temp Pulse Resp B/P (MAP) Pulse Ox O2 Delivery O2 Flow Rate FiO2 07/28/18 12:00 121 27 118/27 (57) 96 07/28/18 11:00 110 22 117/58 (77) 93 07/28/18 10:48 110 14 40 07/28/18 10:48 95 07/28/18 10:00 100 14 121/44 (69) 98 07/28/18 09:29 94 14 40 07/28/18 09:00 102 15 115/30 (58) 96 07/28/18 08:00 106 07/28/18 08:00 40 07/28/18 08:00 100 13 138/15 (56) 96 07/28/18 08:00 Mechanical Ventilator Mechanical Ventilator Mechanical Ventilator 07/28/18 07:00 100.0 101 13 140/22 (61) 97 07/28/18 06:51 107 13 40 07/28/18 06:00 100 13 133/27 (62) 96 07/28/18 05:14 98 13 40 07/28/18 05:00 101 14 135/39 (71) 96 07/28/18 04:00 Mechanical Ventilator Mechanical Ventilator Mechanical Ventilator 07/28/18 04:00 40 07/28/18 04:00 98.5 100 16 124/44 (70) 100 07/28/18 04:00 100 07/28/18 03:10 108 15 40 07/28/18 03:00 103 15 123/36 (65) 98 07/28/18 02:00 101 14 111/38 (62) 100 07/28/18 01:00 106 16 117/39 (65) 100 07/28/18 00:46 102 14 40 07/28/18 00:00 40 07/28/18 00:00 Mechanical Ventilator Mechanical Ventilator Mechanical Ventilator 07/28/18 00:00 98.8 105 16 110/34 (59) 97 07/28/18 00:00 105 07/27/18 23:00 102 15 107/29 (55) 97 07/27/18 22:42 107 13 40 07/27/18 22:00 108 16 118/42 (67) 98 07/27/18 21:27 102 17 40 07/27/18 21:00 107 17 110/29 (56) 98 07/27/18 20:00 Mechanical Ventilator Mechanical Ventilator Mechanical Ventilator 07/27/18 20:00 106 07/27/18 20:00 98.7 106 17 139/35 (69) 94 07/27/18 20:00 40 07/27/18 19:29 70 14 40 07/27/18 19:00 76 20 150/31 (70) 96 07/27/18 18:00 68 18 114/36 (62) 100 07/27/18 17:11 68 15 40 07/27/18 17:00 68 16 140/28 (65) 99 07/27/18 16:00 68 07/27/18 16:00 98.0 68 16 131/15 (53) 98 07/27/18 16:00 40 07/27/18 16:00 Mechanical Ventilator Mechanical Ventilator Mechanical Ventilator 07/27/18 15:00 99.1 68 14 141/10 (53) 98 07/27/18 14:56 69 15 40 07/27/18 14:00 72 19 113/32 (59) 98 07/27/18 13:06 69 15 40 Intake and Output 07/27/18 07/28/18 18:59 06:59 Intake Total 400 ml 110 ml Output Total 125 ml 10 ml Balance 275 ml 100 ml Intake Oral 60 ml 0 ml Free Water 120 ml IV Total 220 ml 60 ml Other 50 ml Output Urine Total 125 ml 10 ml General Appearance: no acute distress HEENT: normocephalic Respiratory/Chest: chest wall non-tender, lungs clear Cardiovascular: normal peripheral pulses Abdomen: normal bowel sounds Microbiology Date/Time Source Procedure Growth Status 07/27/18 11:40 Other(Specify in comment) Gram Stain - Final Resulted 07/27/18 11:40 Other(Specify in comment) Wound Culture - Preliminary Resulted 07/27/18 11:40 Sacral Wound Gram Stain - Final Resulted 07/27/18 11:40 Sacral Wound Wound Culture - Preliminary Resulted Current Medications Medications (Trade) Dose Ordered Sig/Renetta Route PRN Reason Start Time Stop Time Status Last Admin Dose Admin Amiodarone HCl (Cordarone) 200 mg EVERY 12 HOURS ORAL 07/26/18 21:00 08/25/18 20:59 07/28/18 09:16 Chlorhexidine Gluconate (Rylie-Hex 2%) 1 applic DAILY@2000 TOPIC 07/26/18 20:00 08/25/18 19:59 07/27/18 21:04 Epoetin Paul (Procrit (for ESRD on dialysis)) 10,000 units MON-WED-FRI SUBQ 07/27/18 21:00 08/26/18 20:59 07/27/18 21:16 Heparin Sodium (Porcine) (Heparin Sod 1000 units/ml 10ml) 2,000 unit ONCE PRN IV DIALYSIS 07/28/18 09:54 07/29/18 23:59 Iron Sucrose 100 mg/Sodium Chloride 60 ml @ 240 mls/hr BEDTIME IV 07/27/18 21:00 07/31/18 21:14 07/27/18 21:15 Linezolid (Zyvox) 600 mg EVERY 12 HOURS ORAL 07/27/18 21:00 08/01/18 20:59 07/28/18 08:44 Meropenem 500 mg/ Sodium Chloride 55 ml @ 110 mls/hr DAILY IVPB 07/27/18 12:00 08/01/18 11:59 07/28/18 08:45 Norepinephrine Bitartrate 4 mg/ Dextrose 250 ml @ 0 mls/hr Q24H IV 07/25/18 16:30 08/24/18 16:29 07/26/18 21:28 Pantoprazole (Protonix) 40 mg Q12HR IVP 07/25/18 21:00 08/25/18 08:59 07/28/18 08:44 Sodium Chloride 1,000 ml @ 500 mls/hr Q2H PRN IVLG sbp<90 during hd 07/28/18 09:54 07/29/18 23:59 Andres Allan MD Jul 28, 2018 13:04
--- NOTE | 2018-07-28 13:10 | NUR ---
NURSE NOTES: Called Dr. Allan to confirm PICC placment order for today awaiting call back.
--- NOTE | 2018-07-28 13:14 | NUR ---
NURSE NOTES:Called and left message for to make aware of PICC line order for today. Awaiting call back.
--- NOTE | 2018-07-28 14:30 | NUR ---
NURSE NOTES: Patient repositioned, patient put back on to original vent setting due to ABG results. Dr. Allan office called and left a voice message informing him of results. Awaiting call back. Patient restraints were removed during hygiene and during oral care. Head of bed is at 30 degrees, bed is locked and in the lowest position, bed alarm is on. Will continue to monitor patient and follow plan of care.
--- NOTE | 2018-07-28 15:05 | NUR ---
RESPIRATORY NOTE: Pt put back on MD vent settings. AC: 12, 500, 40%, +5
--- NOTE | 2018-07-28 15:06 | Diagnostic Imaging Report ---
Indication: Abdominal pain Technique: Grayscale duplex images of the abdominal aorta Comparison: Ultrasound abdomen 07/25/2018 Findings: Abdominal aorta is normal in caliber. Color Doppler imaging demonstrates patency, with normal Doppler flow velocities and waveforms. The proximal common iliac arteries are also patent, nonaneurysmal. Impression: Unremarkable abdominal aorta
--- NOTE | 2018-07-28 16:30 | NUR ---
NURSE NOTES: Patient repositioned, patient cleaned, son is at bedside. Patient has denied pain entire shift. Patient dressing have all been changed. Dr. Nails came to see patient. No new orders noted. Bilateral legs are elevated, bed is locked and in the lowest position, bed alarm is on, 3 side rails are up. Will continue to monitor patient and follow plan of care. patient remains NPO.
[2018-07-28] MEDS ORDERED: Tubing IV Secondary IV ONE ×2 (16:38→17:00)
[2018-07-28] MEDS ORDERED: D5NS 1000ml IV ONE (17:00)
--- NOTE | 2018-07-28 17:55 | General Surgery Progress Note ---
General Surgery-Progress Note Subjective Procedure Performed left subclavian central venous catheter insertion Additional Comments in ICU on vent. awake and alert today. responsive. following commands. son at bedside. Objective Last 24 Hour Vital Signs Date Time Temp Pulse Resp B/P (MAP) Pulse Ox O2 Delivery O2 Flow Rate FiO2 07/28/18 17:00 98 14 40 07/28/18 17:00 96 19 123/33 (63) 97 07/28/18 16:30 123/33 07/28/18 16:00 98.9 97 12 92/12 (38) 95 07/28/18 16:00 108 07/28/18 16:00 Mechanical Ventilator Mechanical Ventilator Mechanical Ventilator 07/28/18 15:08 40 07/28/18 15:05 115 14 40 07/28/18 15:00 115 19 135/22 (59) 92 07/28/18 14:00 122 19 93 07/28/18 13:21 105 18 40 07/28/18 13:00 125 27 94 07/28/18 12:00 40 07/28/18 12:00 103 07/28/18 12:00 Mechanical Ventilator Mechanical Ventilator Mechanical Ventilator 07/28/18 12:00 121 27 118/27 (57) 96 07/28/18 11:00 110 22 117/58 (77) 93 07/28/18 10:48 110 14 40 07/28/18 10:48 95 07/28/18 10:00 100 14 121/44 (69) 98 07/28/18 09:29 94 14 40 07/28/18 09:00 102 15 115/30 (58) 96 07/28/18 08:00 106 07/28/18 08:00 40 07/28/18 08:00 100 13 138/15 (56) 96 07/28/18 08:00 Mechanical Ventilator Mechanical Ventilator Mechanical Ventilator 07/28/18 07:00 100.0 101 13 140/22 (61) 97 07/28/18 06:51 107 13 40 07/28/18 06:00 100 13 133/27 (62) 96 07/28/18 05:14 98 13 40 07/28/18 05:00 101 14 135/39 (71) 96 07/28/18 04:00 Mechanical Ventilator Mechanical Ventilator Mechanical Ventilator 07/28/18 04:00 40 07/28/18 04:00 98.5 100 16 124/44 (70) 100 07/28/18 04:00 100 07/28/18 03:10 108 15 40 07/28/18 03:00 103 15 123/36 (65) 98 07/28/18 02:00 101 14 111/38 (62) 100 07/28/18 01:00 106 16 117/39 (65) 100 07/28/18 00:46 102 14 40 07/28/18 00:00 40 07/28/18 00:00 Mechanical Ventilator Mechanical Ventilator Mechanical Ventilator 07/28/18 00:00 98.8 105 16 110/34 (59) 97 07/28/18 00:00 105 07/27/18 23:00 102 15 107/29 (55) 97 07/27/18 22:42 107 13 40 07/27/18 22:00 108 16 118/42 (67) 98 07/27/18 21:27 102 17 40 07/27/18 21:00 107 17 110/29 (56) 98 07/27/18 20:00 Mechanical Ventilator Mechanical Ventilator Mechanical Ventilator 07/27/18 20:00 106 07/27/18 20:00 98.7 106 17 139/35 (69) 94 07/27/18 20:00 40 07/27/18 19:29 70 14 40 07/27/18 19:00 76 20 150/31 (70) 96 07/27/18 18:00 68 18 114/36 (62) 100 I&O Intake and Output 07/27/18 07/28/18 19:00 07:00 Intake Total 290 ml 110 ml Output Total 105 ml 0 ml Balance 185 ml 110 ml Intake Oral 60 ml 0 ml Free Water 120 ml IV Total 110 ml 60 ml Other 50 ml Output Urine Total 105 ml 0 ml Dressing: saturated Wound: other Drains: other Cardiovascular: RSR Respiratory: decreased breath sounds Abdomen: soft, flat, non-tender, present bowel sounds Extremities: edema, tenderness, no cyanosis Laboratory Tests Test 07/28/18 13:50 Arterial Blood pH 7.250 (7.350-7.450) Arterial Blood Partial Pressure CO2 48.3 mmHg (35.0-45.0) H Arterial Blood Partial Pressure O2 75.1 mmHg (75.0-100.0) Arterial Blood HCO3 20.8 mmol/L (22.0-26.0) L Arterial Blood Oxygen Saturation 91.8 % (95-100) L Arterial Blood Base Excess -6.4 (-2-2) L Silverio Test Positive Plan Problems: (1) Sepsis Assessment & Plan: acute decompensation hypotensive bradycardic respiratory decompensation requiring intubation and vent support - failed extubation midline being used and safe for now may need another line later if peripheral not possible - PICC thank you will follow with recs (2) Hypotension (3) Bradycardia (4) Altered mental status (5) Decubital ulcer Assessment & Plan: Patient with multiple pressure injuries where have been present since admission. Full thickness pressure injury to sacrum (L)(L)2.4cm x (W)4.4cm x (D)0.9cm, undermining 12-12 with tunneling 9-10 by 11.3cm. In close proximity to sacral wound on L buttocks purple ,indurated area with small area of slough measuring (L)0.6cm x (W)0.5cm noted. Arched surgical scar noted to L buttocks at site of tunneling. Resolving pressure injury noted to R ischium (L)3cm x (W)2cm. Wound bed epithelialized with maroon discoloration without induration periwound. Closed area with white pocket and purple margins noted to distal,carmela R tibia (L)6cm x (W)2.7cm Full thickness wound noted to distal/medial RLE (L)6.2cm x (W)3.8cm .Wound noted to have 95% mixed slough /necrosis ,marginal erythema. Wound malodorous. Wound posterior R tibia (L)4.7cm x (W) 3cm ,100% necrotic with marginal erythema. Dry eschar with marginal erythema (L)0.5cm x (W)0.7cm noted to medial R heel.Non-blanchable erythema noted to medial L malleolus. Dry brown eschar noted to medial L 1st malleolus (L)1.4cm x (W)1cm. L heel and lateral aspect boggy with non-blanchable erythema. Tx.Plan: Cleanse sacral wound with Saline.Loose pack with Hydrogel impregnated packing strip (Attention to tunneled area at 9-10).Cover with Optifoam drsg Daily and prn. Reposition at least every 2hours or as tolerated. Air Fluidized mattress. Off-load heels with pillow. Appreciate Podiatry and Vascular input Reji Nails Jul 28, 2018 17:54
--- NOTE | 2018-07-28 17:57 | NUR ---
CASE MANAGEMENT: REVIEW SI: A-FIB . SEPSIS . ESRD ON HD T 98.9 HR 115 RR 14 BP 92/12 SAT 95% MECH VENT FIO2 40 IS: AMIODARONE PO Q12HR LEVOPHED GTT DOPAMINE GTT ICU STATUS DCP: PATIENT IS FROM [facility]
--- NOTE | 2018-07-28 18:41 | NUR ---
NURSE NOTES: Patient repositioned, patient is asleep, son is at bedside. patient is on vent settings Ac 12, TV 500, Fio2 40%, peep 5, 02 saturation 99%. No change in condition. Patient has bilateral restraints skin is intact, pulses are present. Head of bed is at 30 degrees, bed is locked and in the lowest position, bed alarm is on. Will continue to monitor patient and follow plan of care.
--- NOTE | 2018-07-28 18:52 | NUR ---
RESPIRATORY NOTE: Received pt on AC 12, 500VT, 40%, PEEP +5. Pt intubated w/ ETT 7.5 @ 23cm lipline, secured by anchorfast. Pt is alert/awake, follows commands. Son is currently at bedside. Pt's hands on soft restraints to prevent from self-extubation. B/S geni. rhonchi, sxn minimal amounts of thick/thin, clear/white secretions. Vent plugged into red outlet, ambubag at bedside. Pt resting comfrotably, in no apparent distress at this time. Will continue to monitor pt.
--- NOTE | 2018-07-28 19:28 | NUR ---
HAND-OFF: Report given to BALDO EMMANUEL.
--- NOTE | 2018-07-28 19:30 | NUR ---
NURSE NOTES: CALLED [facility] BY DAY SHIFT MAISHA/BALDO THAT LUIS WAS AWARE.
--- NOTE | 2018-07-28 19:50 | NUR ---
NURSE NOTES: PATIENT AWOKE, ALERT, ORIENTED, ON ETT TO VENT AC12/TV500/FIO2 40%/PEEP 5, O2 SATURATION 98% NOTED, NGT TO LEFT NARES, INTACT, ABDOMEN SOFT, HYPOACTIVE BOWEL SOUND X4 QUADRANTS, NO BOWEL MOVEMENT STATUS, AV SHUNT TO LEFT UPPER ARM, PALPABLE THRILL, BRUIT, MID-LINE TO RIGHT ARM, INTACT AND PATENT, 2 POINT SOFT RESTRAINTS FOR SAFETY, ON P200 BED, PROVIDED CALL LIGHT WITHIN REACH, MADE LOWER BED POSITION, WILL CONTINUE TO MONITOR.
[2018-07-28] MEDS: Dyna-Hex 2% Top Sol 2oz TOPIC SCH (20:01)
[2018-07-28] MEDS: Iron Sucrose 100 MG in NS 55 ML IV SCH (20:36)
--- NOTE | 2018-07-28 20:40 | NUR ---
NURSE NOTES: SEEN THE PATIENT BY DR. BENAVIDES.
--- NOTE | 2018-07-28 22:00 | NUR ---
NURSE NOTES: RELEASED RESTRAINTS, AND REAPPLIED FOR SAFETY.
--- NOTE | 2018-07-28 22:07 | Cardiology Progress Note ---
Assessment/Plan Assessment/Plan 1. Hypotension, possibly sepsis versus volume. 2. Paroxysmal episodes of atrial fibrillation history. 3. Bradycardia secondary to medications, amiodarone possibly. 4. Diabetes mellitus. 5. End-stage renal disease, on hemodialysis. 6. Lung collapse. 7. Respiratory failure, status post intubation. 8. Dysphagia. 9. History of dementia. 10. Pulm htn 11. Pleural effusion in and out of afib will increae amiod for a few doses watch for devonte tele reviewed echo personally reviewed lv function is hyperdynamic has bilat pleural effusion off vasopressor urine cx postive wean o ff vent may need to consider thoracentesis cotienu icu leve of care for now is anemic may need prbc tx will ? source f anemia cannot anticoagualte until h/h stable labs in am Subjective Cardiovascular: Denies: chest pain Respiratory: Denies: shortness of breath Gastrointestinal/Abdominal: Denies: abdominal pain Genitourinary: Denies: burning Subjective on the vent not verbal but communicates with head motion Objective Last 24 Hour Vital Signs Date Time Temp Pulse Resp B/P (MAP) Pulse Ox O2 Delivery O2 Flow Rate FiO2 07/28/18 21:00 90 15 40 07/28/18 21:00 98 17 145/93 (110) 98 07/28/18 20:00 98.6 101 16 131/42 (71) 98 07/28/18 19:00 96 16 144/42 (76) 98 07/28/18 18:50 87 12 40 07/28/18 18:00 96 14 125/36 (65) 98 07/28/18 17:00 98 14 40 07/28/18 17:00 96 19 123/33 (63) 97 07/28/18 16:30 123/33 07/28/18 16:00 98.9 97 12 92/12 (38) 95 07/28/18 16:00 108 07/28/18 16:00 Mechanical Ventilator Mechanical Ventilator Mechanical Ventilator 07/28/18 15:08 40 07/28/18 15:05 115 14 40 07/28/18 15:00 115 19 135/22 (59) 92 07/28/18 14:00 122 19 93 07/28/18 13:21 105 18 40 07/28/18 13:00 125 27 94 07/28/18 12:00 40 07/28/18 12:00 103 07/28/18 12:00 Mechanical Ventilator Mechanical Ventilator Mechanical Ventilator 07/28/18 12:00 121 27 118/27 (57) 96 07/28/18 11:00 110 22 117/58 (77) 93 07/28/18 10:48 110 14 40 07/28/18 10:48 95 07/28/18 10:00 100 14 121/44 (69) 98 07/28/18 09:29 94 14 40 07/28/18 09:00 102 15 115/30 (58) 96 07/28/18 08:00 106 07/28/18 08:00 40 07/28/18 08:00 100 13 138/15 (56) 96 07/28/18 08:00 Mechanical Ventilator Mechanical Ventilator Mechanical Ventilator 07/28/18 07:00 100.0 101 13 140/22 (61) 97 07/28/18 06:51 107 13 40 07/28/18 06:00 100 13 133/27 (62) 96 07/28/18 05:14 98 13 40 07/28/18 05:00 101 14 135/39 (71) 96 07/28/18 04:00 Mechanical Ventilator Mechanical Ventilator Mechanical Ventilator 07/28/18 04:00 40 07/28/18 04:00 98.5 100 16 124/44 (70) 100 07/28/18 04:00 100 07/28/18 03:10 108 15 40 07/28/18 03:00 103 15 123/36 (65) 98 07/28/18 02:00 101 14 111/38 (62) 100 07/28/18 01:00 106 16 117/39 (65) 100 07/28/18 00:46 102 14 40 07/28/18 00:00 40 07/28/18 00:00 Mechanical Ventilator Mechanical Ventilator Mechanical Ventilator 07/28/18 00:00 98.8 105 16 110/34 (59) 97 07/28/18 00:00 105 07/27/18 23:00 102 15 107/29 (55) 97 07/27/18 22:42 107 13 40 General Appearance: alert, on vent Neck: supple Cardiovascular: irregularly irregular Respiratory/Chest: lungs clear Abdomen: normal bowel sounds, non tender, soft Extremities: no swelling Intake and Output 07/27/18 07/28/18 19:00 07:00 Intake Total 290 ml 110 ml Output Total 105 ml 0 ml Balance 185 ml 110 ml Intake Oral 60 ml 0 ml Free Water 120 ml IV Total 110 ml 60 ml Other 50 ml Output Urine Total 105 ml 0 ml Laboratory Tests Test 07/28/18 13:50 Arterial Blood pH 7.250 (7.350-7.450) Arterial Blood Partial Pressure CO2 48.3 mmHg (35.0-45.0) H Arterial Blood Partial Pressure O2 75.1 mmHg (75.0-100.0) Arterial Blood HCO3 20.8 mmol/L (22.0-26.0) L Arterial Blood Oxygen Saturation 91.8 % (95-100) L Arterial Blood Base Excess -6.4 (-2-2) L Silverio Test Positive Microbiology Date/Time Source Procedure Growth Status 07/27/18 11:40 Other(Specify in comment) Gram Stain - Final Resulted 07/27/18 11:40 Other(Specify in comment) Wound Culture - Preliminary Resulted 07/27/18 11:40 Sacral Wound Gram Stain - Final Resulted 07/27/18 11:40 Sacral Wound Wound Culture - Preliminary Resulted Angelo Butler MD Jul 28, 2018 22:07
[2018-07-29] VITALS (24 sets, daily range): BP systolic 79–157; BP diastolic 11–72
--- NOTE | 2018-07-29 00:10 | NUR ---
NURSE NOTES: REPOSITIONED, ORAL CARE WAS DONE, NO PAIN OR DISTRESS NOTED AT THIS TIME.
--- NOTE | 2018-07-29 02:00 | NUR ---
NURSE NOTES: ASLEEP STATUS, NO ACUTE DISTRESS NOTED.
--- NOTE | 2018-07-29 04:00 | NUR ---
NURSE NOTES: MORNING CARE AND ORAL CARE WAS DONE, NO DISTRESS NOTED WHILE CARE.
[2018-07-29 05:17] LABS: BASOPHILS % (AUTO) 0.9 % (0.0-2.0); EOSINOPHILS % (AUTO) 4.5 % (0.0-3.0); HEMATOCRIT 34.4 % (37.0-47.0); HEMOGLOBIN 10.4 G/DL (12.0-16.0); MEAN CORPUSCULAR VOLUME 89 FL (80-99); MONOCYTES % (AUTO) 7.7 % (1.0-10.0); PLATELET COUNT 148 K/UL (150-450); RED BLOOD COUNT 3.87 M/UL (4.20-5.40); RED CELL DISTRIBUTION WIDTH 15.5 % (11.6-14.8); WHITE BLOOD COUNT 5.2 K/UL (4.8-10.8)
[2018-07-29 05:45] LABS: ALANINE AMINOTRANSFERASE 8 U/L (12-78); ALBUMIN 1.9 G/DL (3.4-5.0); ALBUMIN/GLOBULIN RATIO 0.4 (1.0-2.7); ALKALINE PHOSPHATASE 141 U/L (46-116); ANION GAP 9 mmol/L (5-15); ASPARTATE AMINO TRANSFERASE 9 U/L (15-37); BILIRUBIN,TOTAL 0.4 MG/DL (0.2-1.0); BLOOD UREA NITROGEN 32 mg/dL (7-18); CALCIUM 8.2 MG/DL (8.5-10.1); CARBON DIOXIDE 23 MMOL/L (21-32); CHLORIDE 98 MMOL/L (98-107); CREATININE 4.6 MG/DL (0.55-1.30); SODIUM 130 MMOL/L (136-145)
[2018-07-29 06:17] LABS: IRON 57 ug/dL (50-175)
--- NOTE | 2018-07-29 06:20 | NUR ---
NURSE NOTES: NO ACUTE DISTRESS NOTED AT THIS SHIFT.
--- NOTE | 2018-07-29 07:02 | NUR ---
RESPIRATORY NOTE: Received pt on vent, intubated with ETT 7.5 placed 23cm at the lip, secured via anchor fast. no redness around facial area. alarms on and audible. vent plugged into red outlet with ambu bag at bedside. will cont to monitor throughout the day.
--- NOTE | 2018-07-29 07:08 | NUR ---
HAND-OFF: Report given to MAISHA/BALDO.
--- NOTE | 2018-07-29 07:10 | NUR ---
NURSE NOTES: Patient received from [facility]. Patient received in bed with ETT size 7.5, 23cm, Vent setting Ac 12, Tv 500, Fio2 40%, P5, 02 saturation 100%. Bilateral lung sound of rhonchi upon auscultation. Patient is connected to the vehicle monitor technician HR [id number], Patient is a-fib on the monitor. Patient abdomen is soft and non tender, patient is NPO at this time, Patient has a left nares NGT tube patent and flushed with 20ml, no residual noted, placement verified with bubbling sound heard upon auscultation. Patient is anuric. Patient has hemodialysis scheduled. Patient has a left arm Av shift patent bruit and thrill noted, right arm AV shunt not in use. Patient has sacral wound covered in dressing, right leg ulcer, left big toe ulcer and DTI noted. Right Midline patent with single lumen patent with TKO. Head of bed is at 30 degrees, bed is locked and in the lowest position. Bilateral wrist restraints noted, skin is intact and pulses are present. Will continue to monitor patient and follow plan of care.
--- NOTE | 2018-07-29 07:32 | Nephrology Progress Note ---
Assessment/Plan Assessment Seee below Plan MOF, improving slowly. Sepsis due to infected diabetic ulcers, R/O Osteo. On IV Abx. Called ID, Vasc. Sx, Podiatry. Septic Shock pressors PRN ESRD HD q MWF Anemia of CKD transfused yesterday, DARRYN high dose. Hct up to 34! Resp Failure - Vent per Pul. Trying to wean. REGINALDO Allan. 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 with LAE. LVEF 65% . Anticoagulate when stable. REGINALDO Butler. PVD. Needs Angio. REGINALDO Sauceda. Subjective Subjective Awake + alert. No c/o Objective Objective Last 24 Hour Vital Signs Date Time Temp Pulse Resp B/P (MAP) Pulse Ox O2 Delivery O2 Flow Rate FiO2 07/29/18 07:00 94 12 40 07/29/18 07:00 86 12 117/26 (56) 99 07/29/18 06:00 94 14 118/12 (47) 99 07/29/18 05:00 99 14 123/46 (71) 98 07/29/18 05:00 90 13 40 07/29/18 04:06 90 07/29/18 04:00 40 07/29/18 04:00 98.6 98 13 102/13 (42) 99 07/29/18 04:00 Mechanical Ventilator Mechanical Ventilator Mechanical Ventilator 07/29/18 03:00 98 14 120/23 (55) 98 07/29/18 02:55 94 14 40 07/29/18 02:00 98 16 112/18 (49) 98 07/29/18 01:00 98 15 79/40 (53) 97 07/29/18 00:41 106 17 40 07/29/18 00:00 40 07/29/18 00:00 Mechanical Ventilator Mechanical Ventilator Mechanical Ventilator 07/29/18 00:00 99.1 96 14 124/17 (52) 97 07/28/18 23:50 100 07/28/18 23:00 97 17 143/38 (73) 97 07/28/18 22:55 92 17 40 07/28/18 22:00 98 15 131/26 (61) 98 07/28/18 21:00 90 15 40 07/28/18 21:00 98 17 145/93 (110) 98 07/28/18 20:00 40 07/28/18 20:00 98.6 101 16 131/42 (71) 98 07/28/18 20:00 Mechanical Ventilator Mechanical Ventilator Mechanical Ventilator 07/28/18 19:37 99 07/28/18 19:00 96 16 144/42 (76) 98 07/28/18 18:50 87 12 40 07/28/18 18:00 96 14 125/36 (65) 98 07/28/18 17:00 98 14 40 07/28/18 17:00 96 19 123/33 (63) 97 07/28/18 16:30 123/33 07/28/18 16:00 98.9 97 12 92/12 (38) 95 07/28/18 16:00 108 07/28/18 16:00 Mechanical Ventilator Mechanical Ventilator Mechanical Ventilator 07/28/18 15:08 40 07/28/18 15:05 115 14 40 07/28/18 15:00 115 19 135/22 (59) 92 07/28/18 14:00 122 19 93 07/28/18 13:21 105 18 40 07/28/18 13:00 125 27 94 07/28/18 12:00 40 07/28/18 12:00 103 07/28/18 12:00 Mechanical Ventilator Mechanical Ventilator Mechanical Ventilator 07/28/18 12:00 121 27 118/27 (57) 96 07/28/18 11:00 110 22 117/58 (77) 93 07/28/18 10:48 110 14 40 07/28/18 10:48 95 07/28/18 10:00 100 14 121/44 (69) 98 07/28/18 09:29 94 14 40 07/28/18 09:00 102 15 115/30 (58) 96 07/28/18 08:00 106 07/28/18 08:00 40 07/28/18 08:00 100 13 138/15 (56) 96 07/28/18 08:00 Mechanical Ventilator Mechanical Ventilator Mechanical Ventilator Intake and Output 07/28/18 07/29/18 19:00 07:00 Intake Total 110 ml 110 ml Balance 110 ml 110 ml Intake Oral 0 ml 0 ml IV Total 110 ml 60 ml Other 50 ml # Bowel Movements 1 2 Laboratory Tests 07/28/18 13:50: Arterial Blood pH 7.250*L, Arterial Blood Partial Pressure CO2 48.3H, Arterial Blood Partial Pressure O2 75.1, Arterial Blood HCO3 20.8L, Arterial Blood Oxygen Saturation 91.8L, Arterial Blood Base Excess -6.4L, Silverio Test Positive 07/29/18 01:45: Stool Occult Blood [Pending] 07/29/18 04:00: White Blood Count 5.2, Red Blood Count 3.87L, Hemoglobin 10.4L, Hematocrit 34.4L , Mean Corpuscular Volume 89, Mean Corpuscular Hemoglobin 27.0, Mean Corpuscular Hemoglobin Concent 30.3L, Red Cell Distribution Width 15.5H, Platelet Count 148L, Mean Platelet Volume 8.4, Neutrophils (%) (Auto) 68.0, Lymphocytes (%) (Auto) 19.0L, Monocytes (%) (Auto) 7.7, Eosinophils (%) (Auto) 4.5H, Basophils (%) (Auto) 0.9, Sodium Level 130L, Potassium Level 4.0, Chloride Level 98, Carbon Dioxide Level 23, Anion Gap 9, Blood Urea Nitrogen 32H , Creatinine 4.6H, Estimat Glomerular Filtration Rate , Glucose Level 110H, Calcium Level 8.2L, Iron Level 57, Total Bilirubin 0.4, Aspartate Amino Transf ( AST/SGOT) 9L, Alanine Aminotransferase (ALT/SGPT) 8L, Alkaline Phosphatase 141H , Total Protein 7.3, Albumin 1.9L, Globulin 5.4, Albumin/Globulin Ratio 0.4L Height (Feet): 5 Height (Inches): 2.00 Weight (Pounds): 131 Objective Intubated, On vent. Cv IRR/IRR Lungs B facundo. Abd SNT. BS + E Rt. foot diabetic ulcers with pus Chase He MD Jul 29, 2018 07:32
--- NOTE | 2018-07-29 08:18 | General Progress Note ---
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
--- NOTE | 2018-07-29 08:47 | Podiatric Progress Note ---
Assessment/Plan Patient Kelsi Montana is a 78 year old female who was admitted on Jul 25, 2018 at 10 :32 with Assessment/Plan A/ 1) Bilateral lower extremity wounds - arterial etiology 2) Cellulitis RLE 2/2 infected wounds - improving 3) DM 4) h/o PAD 5) ESRD P/ 1) Wound orders placed for foam border gauze to be replaced daily. No surgical intervention indicated at this time. Leukocytosis resolved 2) Vasc consult with Dr Sauceda - will need angio of RLE 3) Abx per ID 4) Will need MRI of left ankle and left tib-fib when more stable. 5) Will follow closely Thank you Dr He Subjective Allergies: Coded Allergies: No Known Allergies (Unverified , 07/25/18) Subjective Patient intubated but more alert Objective Exam Last 24 Hour Vital Signs Date Time Temp Pulse Resp B/P (MAP) Pulse Ox O2 Delivery O2 Flow Rate FiO2 07/29/18 07:00 94 12 40 07/29/18 07:00 86 12 117/26 (56) 99 07/29/18 06:00 94 14 118/12 (47) 99 07/29/18 05:00 99 14 123/46 (71) 98 07/29/18 05:00 90 13 40 07/29/18 04:06 90 07/29/18 04:00 40 07/29/18 04:00 98.6 98 13 102/13 (42) 99 07/29/18 04:00 Mechanical Ventilator Mechanical Ventilator Mechanical Ventilator 07/29/18 03:00 98 14 120/23 (55) 98 07/29/18 02:55 94 14 40 07/29/18 02:00 98 16 112/18 (49) 98 07/29/18 01:00 98 15 79/40 (53) 97 07/29/18 00:41 106 17 40 07/29/18 00:00 40 07/29/18 00:00 Mechanical Ventilator Mechanical Ventilator Mechanical Ventilator 07/29/18 00:00 99.1 96 14 124/17 (52) 97 07/28/18 23:50 100 07/28/18 23:00 97 17 143/38 (73) 97 07/28/18 22:55 92 17 40 07/28/18 22:00 98 15 131/26 (61) 98 07/28/18 21:00 90 15 40 07/28/18 21:00 98 17 145/93 (110) 98 07/28/18 20:00 40 07/28/18 20:00 98.6 101 16 131/42 (71) 98 07/28/18 20:00 Mechanical Ventilator Mechanical Ventilator Mechanical Ventilator 07/28/18 19:37 99 07/28/18 19:00 96 16 144/42 (76) 98 07/28/18 18:50 87 12 40 07/28/18 18:00 96 14 125/36 (65) 98 07/28/18 17:00 98 14 40 07/28/18 17:00 96 19 123/33 (63) 97 07/28/18 16:30 123/33 07/28/18 16:00 98.9 97 12 92/12 (38) 95 07/28/18 16:00 108 07/28/18 16:00 Mechanical Ventilator Mechanical Ventilator Mechanical Ventilator 07/28/18 15:08 40 07/28/18 15:05 115 14 40 07/28/18 15:00 115 19 135/22 (59) 92 07/28/18 14:00 122 19 93 07/28/18 13:21 105 18 40 07/28/18 13:00 125 27 94 07/28/18 12:00 40 07/28/18 12:00 103 07/28/18 12:00 Mechanical Ventilator Mechanical Ventilator Mechanical Ventilator 07/28/18 12:00 121 27 118/27 (57) 96 07/28/18 11:00 110 22 117/58 (77) 93 07/28/18 10:48 110 14 40 07/28/18 10:48 95 07/28/18 10:00 100 14 121/44 (69) 98 07/28/18 09:29 94 14 40 07/28/18 09:00 102 15 115/30 (58) 96 Laboratory Tests Test 07/28/18 13:50 07/29/18 01:45 07/29/18 04:00 Arterial Blood pH 7.250 (7.350-7.450) Arterial Blood Partial Pressure CO2 48.3 mmHg (35.0-45.0) H Arterial Blood Partial Pressure O2 75.1 mmHg (75.0-100.0) Arterial Blood HCO3 20.8 mmol/L (22.0-26.0) L Arterial Blood Oxygen Saturation 91.8 % (95-100) L Arterial Blood Base Excess -6.4 (-2-2) L Silverio Test Positive Stool Occult Blood Pending White Blood Count 5.2 K/UL (4.8-10.8) Red Blood Count 3.87 M/UL (4.20-5.40) L Hemoglobin 10.4 G/DL (12.0-16.0) L Hematocrit 34.4 % (37.0-47.0) L Mean Corpuscular Volume 89 FL (80-99) Mean Corpuscular Hemoglobin 27.0 PG (27.0-31.0) Mean Corpuscular Hemoglobin Concent 30.3 G/DL (32.0-36.0) L Red Cell Distribution Width 15.5 % (11.6-14.8) H Platelet Count 148 K/UL (150-450) L Mean Platelet Volume 8.4 FL (6.5-10.1) Neutrophils (%) (Auto) 68.0 % (45.0-75.0) Lymphocytes (%) (Auto) 19.0 % (20.0-45.0) L Monocytes (%) (Auto) 7.7 % (1.0-10.0) Eosinophils (%) (Auto) 4.5 % (0.0-3.0) H Basophils (%) (Auto) 0.9 % (0.0-2.0) Sodium Level 130 MMOL/L (136-145) L Potassium Level 4.0 MMOL/L (3.5-5.1) Chloride Level 98 MMOL/L (98-107) Carbon Dioxide Level 23 MMOL/L (21-32) Anion Gap 9 mmol/L (5-15) Blood Urea Nitrogen 32 mg/dL (7-18) H Creatinine 4.6 MG/DL (0.55-1.30) H Estimat Glomerular Filtration Rate mL/min (>60) Glucose Level 110 MG/DL (74-106) H Calcium Level 8.2 MG/DL (8.5-10.1) L Iron Level 57 ug/dL (50-175) Total Bilirubin 0.4 MG/DL (0.2-1.0) Aspartate Amino Transf (AST/SGOT) 9 U/L (15-37) L Alanine Aminotransferase (ALT/SGPT) 8 U/L (12-78) L Alkaline Phosphatase 141 U/L (46-116) H Total Protein 7.3 G/DL (6.4-8.2) Albumin 1.9 G/DL (3.4-5.0) L Globulin 5.4 g/dL Albumin/Globulin Ratio 0.4 (1.0-2.7) L Microbiology Date/Time Source Procedure Growth Status 07/25/18 08:45 Blood Blood Culture - Preliminary NO GROWTH AFTER 72 HOURS Resulted 07/27/18 11:40 Other(Specify in comment) Gram Stain - Final Resulted 07/27/18 11:40 Other(Specify in comment) Wound Culture - Preliminary Resulted 07/25/18 08:35 Nasal Nares Influenza Types A,B Antigen (FARSHAD) - Final Complete 07/25/18 08:30 Urine,Clean Catch Urine Culture - Final Escherichia Coli - Esbl Enterococcus Faecium - Vre Complete 07/27/18 11:40 Sacral Wound Gram Stain - Final Resulted 07/27/18 11:40 Sacral Wound Wound Culture - Preliminary Resulted Dermatological Dermatological Narrative dressings are clean dry and intact. No Nacho Turner DPElisabeth Jul 29, 2018 08:47
--- NOTE | 2018-07-29 09:03 | Pulmonology Progress Note ---
Assessment/Plan Assessment/Plan IMPRESSION: 1. Hypotension. 2. Sepsis. 3. Atrial fibrillation. 4. Bradycardia. 5. Diabetes mellitus. 6. End-stage renal disease on dialysis. 7. Left lung collapse. 8. Respiratory failure. 9. Dysphagia. 10. Dementia. 11. Anemia DISCUSSION: 1. Continue medications. 2. as needed Levophed. 3. status post bronchoscopy 4. Central access 5. Use broad-spectrum antibiotics. 6. continue weaning attempts Andres Allan M.D. Subjective Interval Events: Not weaning; s/p prbc Constitutional: Reports: no symptoms HEENT: Repors: no symptoms Cardiovascular: Reports: no symptoms Gastrointestinal/Abdominal: Reports: no symptoms Genitourinary: Reports: no symptoms Allergies: Coded Allergies: No Known Allergies (Unverified , 07/25/18) Objective Last 24 Hour Vital Signs Date Time Temp Pulse Resp B/P (MAP) Pulse Ox O2 Delivery O2 Flow Rate FiO2 07/29/18 07:00 94 12 40 07/29/18 07:00 86 12 117/26 (56) 99 07/29/18 06:00 94 14 118/12 (47) 99 07/29/18 05:00 99 14 123/46 (71) 98 07/29/18 05:00 90 13 40 07/29/18 04:06 90 07/29/18 04:00 40 07/29/18 04:00 98.6 98 13 102/13 (42) 99 07/29/18 04:00 Mechanical Ventilator Mechanical Ventilator Mechanical Ventilator 07/29/18 03:00 98 14 120/23 (55) 98 07/29/18 02:55 94 14 40 07/29/18 02:00 98 16 112/18 (49) 98 07/29/18 01:00 98 15 79/40 (53) 97 07/29/18 00:41 106 17 40 07/29/18 00:00 40 07/29/18 00:00 Mechanical Ventilator Mechanical Ventilator Mechanical Ventilator 07/29/18 00:00 99.1 96 14 124/17 (52) 97 07/28/18 23:50 100 07/28/18 23:00 97 17 143/38 (73) 97 07/28/18 22:55 92 17 40 07/28/18 22:00 98 15 131/26 (61) 98 07/28/18 21:00 90 15 40 07/28/18 21:00 98 17 145/93 (110) 98 07/28/18 20:00 40 07/28/18 20:00 98.6 101 16 131/42 (71) 98 07/28/18 20:00 Mechanical Ventilator Mechanical Ventilator Mechanical Ventilator 07/28/18 19:37 99 07/28/18 19:00 96 16 144/42 (76) 98 07/28/18 18:50 87 12 40 07/28/18 18:00 96 14 125/36 (65) 98 07/28/18 17:00 98 14 40 07/28/18 17:00 96 19 123/33 (63) 97 07/28/18 16:30 123/33 07/28/18 16:00 98.9 97 12 92/12 (38) 95 07/28/18 16:00 108 07/28/18 16:00 Mechanical Ventilator Mechanical Ventilator Mechanical Ventilator 07/28/18 15:08 40 07/28/18 15:05 115 14 40 07/28/18 15:00 115 19 135/22 (59) 92 07/28/18 14:00 122 19 93 07/28/18 13:21 105 18 40 07/28/18 13:00 125 27 94 07/28/18 12:00 40 07/28/18 12:00 103 07/28/18 12:00 Mechanical Ventilator Mechanical Ventilator Mechanical Ventilator 07/28/18 12:00 121 27 118/27 (57) 96 07/28/18 11:00 110 22 117/58 (77) 93 07/28/18 10:48 110 14 40 07/28/18 10:48 95 07/28/18 10:00 100 14 121/44 (69) 98 07/28/18 09:29 94 14 40 Intake and Output 07/28/18 07/29/18 19:00 07:00 Intake Total 110 ml 110 ml Balance 110 ml 110 ml Intake Oral 0 ml 0 ml IV Total 110 ml 60 ml Other 50 ml # Bowel Movements 1 2 General Appearance: no acute distress HEENT: normocephalic Respiratory/Chest: chest wall non-tender, lungs clear Cardiovascular: normal peripheral pulses, normal rate Abdomen: normal bowel sounds Microbiology Date/Time Source Procedure Growth Status 07/27/18 11:40 Other(Specify in comment) Gram Stain - Final Resulted 07/27/18 11:40 Other(Specify in comment) Wound Culture - Preliminary Resulted 07/27/18 11:40 Sacral Wound Gram Stain - Final Resulted 07/27/18 11:40 Sacral Wound Wound Culture - Preliminary Resulted Laboratory Tests 07/28/18 13:50: Arterial Blood pH 7.250*L, Arterial Blood Partial Pressure CO2 48.3H, Arterial Blood Partial Pressure O2 75.1, Arterial Blood HCO3 20.8L, Arterial Blood Oxygen Saturation 91.8L, Arterial Blood Base Excess -6.4L, Silverio Test Positive 07/29/18 01:45: Stool Occult Blood [Pending] 07/29/18 04:00: White Blood Count 5.2, Red Blood Count 3.87L, Hemoglobin 10.4L, Hematocrit 34.4L , Mean Corpuscular Volume 89, Mean Corpuscular Hemoglobin 27.0, Mean Corpuscular Hemoglobin Concent 30.3L, Red Cell Distribution Width 15.5H, Platelet Count 148L, Mean Platelet Volume 8.4, Neutrophils (%) (Auto) 68.0, Lymphocytes (%) (Auto) 19.0L, Monocytes (%) (Auto) 7.7, Eosinophils (%) (Auto) 4.5H, Basophils (%) (Auto) 0.9, Sodium Level 130L, Potassium Level 4.0, Chloride Level 98, Carbon Dioxide Level 23, Anion Gap 9, Blood Urea Nitrogen 32H , Creatinine 4.6H, Estimat Glomerular Filtration Rate , Glucose Level 110H, Calcium Level 8.2L, Iron Level 57, Total Bilirubin 0.4, Aspartate Amino Transf ( AST/SGOT) 9L, Alanine Aminotransferase (ALT/SGPT) 8L, Alkaline Phosphatase 141H , Total Protein 7.3, Albumin 1.9L, Globulin 5.4, Albumin/Globulin Ratio 0.4L Current Medications Medications (Trade) Dose Ordered Sig/Renetta Route PRN Reason Start Time Stop Time Status Last Admin Dose Admin Amiodarone HCl (Cordarone) 200 mg EVERY 12 HOURS ORAL 07/26/18 21:00 08/25/18 20:59 07/28/18 20:37 Chlorhexidine Gluconate (Rylie-Hex 2%) 1 applic DAILY@2000 TOPIC 07/26/18 20:00 08/25/18 19:59 07/28/18 20:01 Epoetin Paul (Procrit (for ESRD on dialysis)) 10,000 units WED-WED-WED SUBQ 07/27/18 21:00 08/26/18 20:59 07/27/18 21:16 Heparin Sodium (Porcine) (Heparin Sod 1000 units/ml 10ml) 2,000 unit ONCE PRN IV DIALYSIS 07/28/18 09:54 07/29/18 23:59 Iron Sucrose 100 mg/Sodium Chloride 60 ml @ 240 mls/hr BEDTIME IV 07/27/18 21:00 07/31/18 21:14 07/28/18 20:36 Linezolid (Zyvox) 600 mg EVERY 12 HOURS ORAL 07/27/18 21:00 08/01/18 20:59 07/28/18 20:37 Meropenem 500 mg/ Sodium Chloride 55 ml @ 110 mls/hr DAILY IVPB 07/27/18 12:00 08/01/18 11:59 07/28/18 08:45 Norepinephrine Bitartrate 4 mg/ Dextrose 250 ml @ 0 mls/hr Q24H IV 07/25/18 16:30 08/24/18 16:29 07/26/18 21:28 Pantoprazole (Protonix) 40 mg Q12HR IVP 07/25/18 21:00 08/25/18 08:59 07/28/18 20:37 Sodium Chloride 1,000 ml @ 500 mls/hr Q2H PRN IVLG sbp<90 during hd 07/28/18 09:54 07/29/18 23:59 Andres Allan MD Jul 29, 2018 09:03
--- NOTE | 2018-07-29 09:10 | NUR ---
NURSE NOTES: Patient reposition, patient connected to the heart monitor A-fib on the monitor. Patient has been put C-pap PS 8, Fio2 40% at 0900, patient tolerating so far. Patient left arm swollen 2+ indentation, bilateral radial pulses bounding upon palpation. Patient suctioned orally with thick white secretions. Patient given oral care. Patient started on feeding nepro at 10ml, goal is 30. Head of bed is at 30 degrees, bed is locked and in the lowest position. Will continue to monitor patient and follow plan of care.
[2018-07-29] MEDS: Pantoprazole Inj IVP SCH ×2 (09:19→20:49)
[2018-07-29] MEDS: Meropenem 500 MG in NS 55 ML IVPB SCH (09:19)
[2018-07-29] MEDS: Amiodarone 200mg tab ORAL SCH ×2 (09:20→20:48)
--- NOTE | 2018-07-29 09:28 | NUR ---
RD ASSESSMENT & RECOMMENDATIONS SEE CARE ACTIVITY FOR COMPLETE ASSESSMENT DAILY ESTIMATED NEEDS: Needs based on Critical care+ Advanced Wounds + ESRD/ 60kg 22-30 kcals/kg [id number] total kcals 1.5-2.0 g protein/kg 90-120g g total protein per MD mL/kg total fluid mLs NUTRITION DIAGNOSIS: * Swallowing difficulty R/T respiratory status as evidenced by pt orally intubated, NPO at this time. * Increased kcal/prot needs R/T wound healing as evidenced by pt admitted w/ multiple wounds including stage 4 sacral wound, refer to WC eval. * Altered nutrition related lab values R/T ESRD dx, clinical condition as evidenced by elev creat (4.6)trend up, low Na (130), elev BNP >62702, low BP, pressor held at this time. CURRENT TF:NPO PO DIET RECOMMENDATIONS: [employer] evaluation post extubation, prior to PO diet -> CCHO MED, RENAL ENTERAL NUTRITION RECOMMENDATIONS: Nepro @ 40ml/hr x 24 hrs + Prosource 1pkt TID to provide 960ml, 1728kcal, 111g prot, 698ml free water WITH HEMODYNAMIC STABILITY 1. Initiate Nepro @ 10ml/hr x 8 hrs, advance 10mlq 6-8 hrs as tolerated to goal rate 2. Add Prosource 1 pkt TID to meet increased prot needs WITHOUT HEMODYNAMIC STABILITY, REC TROPHIC FEEDS OF NEPRO @ 10ML/HR X 24 HRS ADDITIONAL RECOMMENDATIONS: * Calibrated bedscale wt for accurate CBW * Monitor HD stability- NE held at this time * Wound healing- Nephrovite x 1, Afshin 1pkt BID * Monitor Renal fxn and lytes * SSI w/ TF- h/o DM * [employer] eval post extubation
--- NOTE | 2018-07-29 09:43 | NUR ---
CASE MANAGEMENT: REVIEW SI: A-FIB . SEPSIS . ESRD ON HD T 99.1 HR 106 RR 12 BP 79/40 SAT 98% MECH VENT FIO2 40 H/H 10.4/34.4 NA 130 BUN 32 CR 4.6 IS: AMIODARONE PO Q12HR LEVOPHED GTT PROTONIX IV Q12HR PROCRIT SQ MWF ZYVOX PO Q12HR NGT FEEDING NEPRO @10ML/HR ICU STATUS DCP: PATIENT IS FROM [facility]
--- NOTE | 2018-07-29 10:50 | NUR ---
NURSE NOTES: Patient began to have tachycardia and has been put back on Ac mode 12, Tv 500, Fio2 40%, peep 5. o2 saturation 100%. Will continue to monitor patient and follow plan of care.
--- NOTE | 2018-07-29 10:52 | NUR ---
RESPIRATORY NOTE: Placed pt back on AC mode. HR slightly elevated and pt stated being tired
--- NOTE | 2018-07-29 11:10 | NUR ---
NURSE NOTES: Patient repositioned, attempted to suction patient, patient refused. Will try to suctioned patient later on throughout shift. patient restraints released and reapplied. Patient is watching tv. No acute distress noted. Patient denies pain. Bilateral arms and legs are elevated with pillows, heel protectors are noted. Head of bed is locked and in the lowest position. Will continue to monitor patient and follow plan of care.
--- NOTE | 2018-07-29 11:54 | Diagnostic Imaging Report ---
APPROVED REPORT CPT Code: 54952 Vascular Symptoms Comments: Altered menal status Weakness Doppler Spectral Velocity Analysis RightLeft arteries. The Doppler spectral flow analysis indicates the degree of stenosis is minimal (20%) in the common carotid arteries, (10%) in the internal carotid arteries, and (10%) in the external carotid arteries. VERTEBRAL- The vertebral arteries are patent, without evidence of stenosis or steal. arteries. The Doppler spectral flow analysis indicates the degree of stenosis is minimal (20%) in the common carotid arteries, (5%) in the internal carotid arteries, and (10%) in the external carotid arteries. VERTEBRAL- The vertebral arteries are patent, without evidence of stenosis or steal.
--- NOTE | 2018-07-29 11:54 | Diagnostic Imaging Report ---
APPROVED REPORT CPT Code: 53510 Symptoms Right Comments: Right leg cellulitis RIGHT LEG: Common femoral artery waveform analysis is within normal limits at rest. Color flow duplex sonography reveals calcification throughout the superficial femoral and popliteal arteries. There is no evidence of significant stenosis or occlusion within these segments. Doppler flow was triphasic in these segments. The tibioperoneal trunk was not well visualized. The distal posterior, and anterior tibial arteries were not well visualized. The proximal posterior, anterior and dorsalis pedis arteries were also calcified. Doppler tibial artery waveform analysis is compatible with minimal ischemia at rest. LEFT LEG: Common femoral artery waveform analysis is within normal limits at rest. Color flow duplex sonography reveals calcification throughout the superficial femoral and popliteal arteries. There is no evidence of significant stenosis or occlusion within these segments. Doppler flow was triphasic in these segments. The tibioperoneal trunk was not well visualized. The distal posterior, and anterior tibial arteries were not well visualized. The proximal posterior, anterior and dorsalis pedis arteries were also calcified. Doppler tibial artery waveform analysis is compatible with mild ischemia at rest.
--- NOTE | 2018-07-29 14:00 | NUR ---
NURSE NOTES: Patient began hemodialysis. Patient son called and inquired about the patient having dialysis. Patient repositioned prior to hemodialysis starting, oral care given and suctioned moderate amount of thick white sections. Head of bed is locked and in the lowest position, bed alarm is on, bed is locked and in th eowst position, bilateral arms and legs elevated with pillows, heels protectors noted.
--- NOTE | 2018-07-29 16:45 | NUR ---
NURSE NOTES: Patient repositioned, patient received oral care. Patient is afib on the monitor, patine vent settings are the same 02 saturation 100%. patient is tolerating feeding well, no residual noted. Patient nepro has been advanced to 20 ml. patient is not positive for MRSA of the nares. Doctor will be made aware. no change in condition. Head of bed is at 30 degrees, bed is locked and in the lowest position, bed alarm s locked and in the lowest position. Will continue to monitor patient and follow plan of care.
--- NOTE | 2018-07-29 17:02 | General Surgery Progress Note ---
General Surgery-Progress Note Subjective Procedure Performed left subclavian central venous catheter insertion Additional Comments doing well overall. labs improved Objective Last 24 Hour Vital Signs Date Time Temp Pulse Resp B/P (MAP) Pulse Ox O2 Delivery O2 Flow Rate FiO2 07/29/18 16:00 40 07/29/18 16:00 92 16 115/17 (49) 100 07/29/18 16:00 Mechanical Ventilator Mechanical Ventilator Mechanical Ventilator 07/29/18 16:00 87 07/29/18 15:00 92 16 84/14 (37) 100 07/29/18 14:40 83 17 40 07/29/18 14:00 95 12 114/21 (52) 100 07/29/18 13:00 94 12 100/32 (54) 100 07/29/18 12:55 95 14 40 07/29/18 12:00 95 13 103/16 (45) 99 07/29/18 12:00 40 07/29/18 12:00 108 07/29/18 12:00 Mechanical Ventilator Mechanical Ventilator Mechanical Ventilator 07/29/18 11:00 99 15 110/72 (85) 97 07/29/18 10:49 111 22 40 07/29/18 10:00 119 28 128/24 (58) 97 07/29/18 09:06 98 07/29/18 09:03 86 22 40 07/29/18 09:00 121 24 109/18 (48) 98 07/29/18 08:00 90 07/29/18 08:00 99.4 96 13 122/13 (49) 99 07/29/18 08:00 40 07/29/18 08:00 Mechanical Ventilator Mechanical Ventilator Mechanical Ventilator 07/29/18 07:00 94 12 40 07/29/18 07:00 86 12 117/26 (56) 99 07/29/18 06:00 94 14 118/12 (47) 99 07/29/18 05:00 99 14 123/46 (71) 98 07/29/18 05:00 90 13 40 07/29/18 04:06 90 07/29/18 04:00 40 07/29/18 04:00 98.6 98 13 102/13 (42) 99 07/29/18 04:00 Mechanical Ventilator Mechanical Ventilator Mechanical Ventilator 07/29/18 03:00 98 14 120/23 (55) 98 07/29/18 02:55 94 14 40 07/29/18 02:00 98 16 112/18 (49) 98 07/29/18 01:00 98 15 79/40 (53) 97 07/29/18 00:41 106 17 40 07/29/18 00:00 40 07/29/18 00:00 Mechanical Ventilator Mechanical Ventilator Mechanical Ventilator 07/29/18 00:00 99.1 96 14 124/17 (52) 97 07/28/18 23:50 100 07/28/18 23:00 97 17 143/38 (73) 97 07/28/18 22:55 92 17 40 07/28/18 22:00 98 15 131/26 (61) 98 07/28/18 21:00 90 15 40 07/28/18 21:00 98 17 145/93 (110) 98 07/28/18 20:00 40 07/28/18 20:00 98.6 101 16 131/42 (71) 98 07/28/18 20:00 Mechanical Ventilator Mechanical Ventilator Mechanical Ventilator 07/28/18 19:37 99 07/28/18 19:00 96 16 144/42 (76) 98 07/28/18 18:50 87 12 40 07/28/18 18:00 96 14 125/36 (65) 98 I&O Intake and Output 07/28/18 07/29/18 18:59 06:59 Intake Total 110 ml 110 ml Balance 110 ml 110 ml Intake Oral 0 ml 0 ml IV Total 110 ml 60 ml Other 50 ml # Bowel Movements 1 2 Dressing: saturated Wound: other Drains: other Cardiovascular: RSR Respiratory: decreased breath sounds Abdomen: soft, flat, non-tender, present bowel sounds Extremities: other Laboratory Tests Test 07/29/18 01:45 07/29/18 04:00 Stool Occult Blood Negative (NEGATIVE) White Blood Count 5.2 K/UL (4.8-10.8) Red Blood Count 3.87 M/UL (4.20-5.40) L Hemoglobin 10.4 G/DL (12.0-16.0) L Hematocrit 34.4 % (37.0-47.0) L Mean Corpuscular Volume 89 FL (80-99) Mean Corpuscular Hemoglobin 27.0 PG (27.0-31.0) Mean Corpuscular Hemoglobin Concent 30.3 G/DL (32.0-36.0) L Red Cell Distribution Width 15.5 % (11.6-14.8) H Platelet Count 148 K/UL (150-450) L Mean Platelet Volume 8.4 FL (6.5-10.1) Neutrophils (%) (Auto) 68.0 % (45.0-75.0) Lymphocytes (%) (Auto) 19.0 % (20.0-45.0) L Monocytes (%) (Auto) 7.7 % (1.0-10.0) Eosinophils (%) (Auto) 4.5 % (0.0-3.0) H Basophils (%) (Auto) 0.9 % (0.0-2.0) Sodium Level 130 MMOL/L (136-145) L Potassium Level 4.0 MMOL/L (3.5-5.1) Chloride Level 98 MMOL/L (98-107) Carbon Dioxide Level 23 MMOL/L (21-32) Anion Gap 9 mmol/L (5-15) Blood Urea Nitrogen 32 mg/dL (7-18) H Creatinine 4.6 MG/DL (0.55-1.30) H Estimat Glomerular Filtration Rate mL/min (>60) Glucose Level 110 MG/DL (74-106) H Calcium Level 8.2 MG/DL (8.5-10.1) L Iron Level 57 ug/dL (50-175) Total Bilirubin 0.4 MG/DL (0.2-1.0) Aspartate Amino Transf (AST/SGOT) 9 U/L (15-37) L Alanine Aminotransferase (ALT/SGPT) 8 U/L (12-78) L Alkaline Phosphatase 141 U/L (46-116) H Total Protein 7.3 G/DL (6.4-8.2) Albumin 1.9 G/DL (3.4-5.0) L Globulin 5.4 g/dL Albumin/Globulin Ratio 0.4 (1.0-2.7) L Plan Problems: (1) Sepsis Assessment & Plan: acute decompensation hypotensive bradycardic respiratory decompensation requiring intubation and vent support - failed extubation improving labs improved she looks much better cont current ICU care and management thank you will follow with recs (2) Hypotension (3) Bradycardia (4) Altered mental status (5) Decubital ulcer Assessment & Plan: Patient with multiple pressure injuries where have been present since admission. Full thickness pressure injury to sacrum (L)(L)2.4cm x (W)4.4cm x (D)0.9cm, undermining 12-12 with tunneling 9-10 by 11.3cm. In close proximity to sacral wound on L buttocks purple ,indurated area with small area of slough measuring (L)0.6cm x (W)0.5cm noted. Arched surgical scar noted to L buttocks at site of tunneling. Resolving pressure injury noted to R ischium (L)3cm x (W)2cm. Wound bed epithelialized with maroon discoloration without induration periwound. Closed area with white pocket and purple margins noted to distal,carmela R tibia (L)6cm x (W)2.7cm Full thickness wound noted to distal/medial RLE (L)6.2cm x (W)3.8cm .Wound noted to have 95% mixed slough /necrosis ,marginal erythema. Wound malodorous. Wound posterior R tibia (L)4.7cm x (W) 3cm ,100% necrotic with marginal erythema. Dry eschar with marginal erythema (L)0.5cm x (W)0.7cm noted to medial R heel.Non-blanchable erythema noted to medial L malleolus. Dry brown eschar noted to medial L 1st malleolus (L)1.4cm x (W)1cm. L heel and lateral aspect boggy with non-blanchable erythema. Tx.Plan: Cleanse sacral wound with Saline.Loose pack with Hydrogel impregnated packing strip (Attention to tunneled area at 9-10).Cover with Optifoam drsg Daily and prn. Reposition at least every 2hours or as tolerated. Air Fluidized mattress. Off-load heels with pillow. Appreciate Podiatry and Vascular input Plan for anigo late by Vascular Reji Nails Jul 29, 2018 17:02
--- NOTE | 2018-07-29 18:45 | NUR ---
NURSE NOTES: Patient repositioned. No change in condition. hemodialysis pulled of 1 liter. Patient linen has been changed, dressing are dry and intact. Bilateral arms and legs are elevated with pillows, heel protectors are noted. Bed is locked and in the lowest position, bed alarm is on. Will continue to monitor patient and follow plan of care.
--- NOTE | 2018-07-29 19:00 | NUR ---
HAND-OFF: Report given to Rickey Juan Rn.
--- NOTE | 2018-07-29 19:02 | NUR ---
RESPIRATORY NOTE: Received pt on AC 12, 500VT, 40%, PEEP +5. Pt intubated w/ ETT 7.5 @ 23cm lipline, secured by anchorfast. Pt is alert/awake, follows commands. Pt's hands on soft restraints to prevent from self-extubation. B/S geni. rhonchi, sxn scant amounts of thick/thin, clear/white secretions. Vent plugged into red outlet, ambubag at bedside. Pt resting comfortably on current settings, in no apparent distress at this time. Will continue to monitor pt.
--- NOTE | 2018-07-29 19:08 | Cardiology Progress Note ---
Assessment/Plan Assessment/Plan 1. Hypotension, possibly sepsis versus volume. 2. Paroxysmal episodes of atrial fibrillation history. 3. Bradycardia secondary to medications, amiodarone possibly. 4. Diabetes mellitus. 5. End-stage renal disease, on hemodialysis. 6. Lung collapse. 7. Respiratory failure, status post intubation. 8. Dysphagia. 9. History of dementia. 10. Pulm htn 11. Pleural effusion in and out of afib will increae amiod for a few doses watch for devonte tele reviewed echo personally reviewed lv function is hyperdynamic has bilat pleural effusion off vasopressor urine cx postive wean o ff vent may need to consider thoracentesis cotienu icu leve of care for now s anemic s/p prbc tx ? source f anemia cannot anticoagualte until h/h stable labs in am Subjective Cardiovascular: Denies: chest pain, lightheadedness, palpitations Respiratory: Reports: shortness of breath Gastrointestinal/Abdominal: Denies: abdominal pain Subjective on the vent not verbal but communicates with head motion Objective Last 24 Hour Vital Signs Date Time Temp Pulse Resp B/P (MAP) Pulse Ox O2 Delivery O2 Flow Rate FiO2 07/29/18 17:15 85 14 40 07/29/18 17:00 97.6 93 14 120/17 (51) 100 07/29/18 16:30 120/17 07/29/18 16:00 40 07/29/18 16:00 92 16 115/17 (49) 100 07/29/18 16:00 Mechanical Ventilator Mechanical Ventilator Mechanical Ventilator 07/29/18 16:00 87 07/29/18 15:00 92 16 84/14 (37) 100 07/29/18 14:40 83 17 40 07/29/18 14:00 95 12 114/21 (52) 100 07/29/18 13:00 94 12 100/32 (54) 100 07/29/18 12:55 95 14 40 07/29/18 12:00 95 13 103/16 (45) 99 07/29/18 12:00 40 07/29/18 12:00 108 07/29/18 12:00 Mechanical Ventilator Mechanical Ventilator Mechanical Ventilator 07/29/18 11:00 99 15 110/72 (85) 97 07/29/18 10:49 111 22 40 07/29/18 10:00 119 28 128/24 (58) 97 07/29/18 09:06 98 07/29/18 09:03 86 22 40 07/29/18 09:00 121 24 109/18 (48) 98 07/29/18 08:00 90 07/29/18 08:00 99.4 96 13 122/13 (49) 99 07/29/18 08:00 40 07/29/18 08:00 Mechanical Ventilator Mechanical Ventilator Mechanical Ventilator 07/29/18 07:00 94 12 40 07/29/18 07:00 86 12 117/26 (56) 99 07/29/18 06:00 94 14 118/12 (47) 99 07/29/18 05:00 99 14 123/46 (71) 98 07/29/18 05:00 90 13 40 07/29/18 04:06 90 07/29/18 04:00 40 07/29/18 04:00 98.6 98 13 102/13 (42) 99 07/29/18 04:00 Mechanical Ventilator Mechanical Ventilator Mechanical Ventilator 07/29/18 03:00 98 14 120/23 (55) 98 07/29/18 02:55 94 14 40 07/29/18 02:00 98 16 112/18 (49) 98 07/29/18 01:00 98 15 79/40 (53) 97 07/29/18 00:41 106 17 40 07/29/18 00:00 40 07/29/18 00:00 Mechanical Ventilator Mechanical Ventilator Mechanical Ventilator 07/29/18 00:00 99.1 96 14 124/17 (52) 97 07/28/18 23:50 100 07/28/18 23:00 97 17 143/38 (73) 97 07/28/18 22:55 92 17 40 07/28/18 22:00 98 15 131/26 (61) 98 07/28/18 21:00 90 15 40 07/28/18 21:00 98 17 145/93 (110) 98 07/28/18 20:00 40 07/28/18 20:00 98.6 101 16 131/42 (71) 98 07/28/18 20:00 Mechanical Ventilator Mechanical Ventilator Mechanical Ventilator 07/28/18 19:37 99 General Appearance: no apparent distress, alert, on vent, patient on isolation Neck: supple Cardiovascular: irregularly irregular Respiratory/Chest: lungs clear Abdomen: normal bowel sounds, non tender, soft Extremities: trace edema Intake and Output 07/28/18 07/29/18 18:59 06:59 Intake Total 110 ml 110 ml Balance 110 ml 110 ml Intake Oral 0 ml 0 ml IV Total 110 ml 60 ml Other 50 ml # Bowel Movements 1 2 Laboratory Tests Test 07/29/18 01:45 07/29/18 04:00 Stool Occult Blood Negative (NEGATIVE) White Blood Count 5.2 K/UL (4.8-10.8) Red Blood Count 3.87 M/UL (4.20-5.40) L Hemoglobin 10.4 G/DL (12.0-16.0) L Hematocrit 34.4 % (37.0-47.0) L Mean Corpuscular Volume 89 FL (80-99) Mean Corpuscular Hemoglobin 27.0 PG (27.0-31.0) Mean Corpuscular Hemoglobin Concent 30.3 G/DL (32.0-36.0) L Red Cell Distribution Width 15.5 % (11.6-14.8) H Platelet Count 148 K/UL (150-450) L Mean Platelet Volume 8.4 FL (6.5-10.1) Neutrophils (%) (Auto) 68.0 % (45.0-75.0) Lymphocytes (%) (Auto) 19.0 % (20.0-45.0) L Monocytes (%) (Auto) 7.7 % (1.0-10.0) Eosinophils (%) (Auto) 4.5 % (0.0-3.0) H Basophils (%) (Auto) 0.9 % (0.0-2.0) Sodium Level 130 MMOL/L (136-145) L Potassium Level 4.0 MMOL/L (3.5-5.1) Chloride Level 98 MMOL/L (98-107) Carbon Dioxide Level 23 MMOL/L (21-32) Anion Gap 9 mmol/L (5-15) Blood Urea Nitrogen 32 mg/dL (7-18) H Creatinine 4.6 MG/DL (0.55-1.30) H Estimat Glomerular Filtration Rate mL/min (>60) Glucose Level 110 MG/DL (74-106) H Calcium Level 8.2 MG/DL (8.5-10.1) L Iron Level 57 ug/dL (50-175) Total Bilirubin 0.4 MG/DL (0.2-1.0) Aspartate Amino Transf (AST/SGOT) 9 U/L (15-37) L Alanine Aminotransferase (ALT/SGPT) 8 U/L (12-78) L Alkaline Phosphatase 141 U/L (46-116) H Total Protein 7.3 G/DL (6.4-8.2) Albumin 1.9 G/DL (3.4-5.0) L Globulin 5.4 g/dL Albumin/Globulin Ratio 0.4 (1.0-2.7) L Microbiology Date/Time Source Procedure Growth Status 07/27/18 11:40 Other(Specify in comment) Gram Stain - Final Resulted 07/27/18 11:40 Wound Culture - Preliminary Gram Negative Bacillus 1 Megha Albicans Resulted 07/27/18 11:40 Sacral Wound Gram Stain - Final Resulted 07/27/18 11:40 Wound Culture - Preliminary Staphylococcus Aureus Megha Albicans Resulted Angelo Butler MD Jul 29, 2018 19:08
--- NOTE | 2018-07-29 19:15 | NUR ---
NURSE NOTES: SEEN THE PATIENT BY DR. BENAVIDES, NO NEW ORDER STATUS.
--- NOTE | 2018-07-29 19:20 | NUR ---
NURSE NOTES: Called Dr. He to inform him of patient positive MRSA of the nares results. Will endorse mine shifter nurse to follow up.
[2018-07-29] MEDS: Dyna-Hex 2% Top Sol 2oz TOPIC SCH (19:27)
--- NOTE | 2018-07-29 19:45 | NUR ---
NURSE NOTES: PATIENT AWOKE, ALERT, ORIENTED, ON ETT TO VENT AC12/TV500/FIO2 40%/PEEP 5, O2 SATURATION 100% NOTED, NGT TO LEFT NARES, INTACT, ONGOING NEPRO AT 20ML/HR, NO RESIDUE NOTED, ABDOMEN SOFT, HYPOACTIVE BOWEL SOUND X4 QUADRANTS, NO BOWEL MOVEMENT STATUS, AV SHUNT TO LEFT UPPER ARM, PALPABLE THRILL, BRUIT, MID-LINE TO RIGHT ARM, INTACT AND PATENT, 2 POINT SOFT RESTRAINTS FOR SAFETY, ON P200 BED, PROVIDED CALL LIGHT WITHIN REACH, MADE LOWER BED POSITION, WILL CONTINUE TO MONITOR.
[2018-07-29] MEDS: Epogen (for ESRD on dialysis) SUBQ SCH (20:49)
[2018-07-29] MEDS: Iron Sucrose 100 MG in NS 55 ML IV SCH (20:50)
--- NOTE | 2018-07-29 22:00 | NUR ---
NURSE NOTES: PATIENT WANTED TO REMOVE RESTRAINTS AND TRIED TO TOUCH LINE THAT INFORMED AND EDUCATED FOR REMOVAL RESTRAINTS AND PT'S CARE , RELEASED RESTRAINTS AND REAPPLIED FOR SAFETY, WILL CONTINUE TO MONITOR.
[2018-07-30] VITALS (24 sets, daily range): BP systolic 68–197; BP diastolic 13–54
--- NOTE | 2018-07-30 00:30 | NUR ---
NURSE NOTES: PATIENT AWOKE, DENIED PAIN OD DISTRESS AT THIS TIME.
--- NOTE | 2018-07-30 03:30 | NUR ---
NURSE NOTES: MORNING CARE AND ORAL CARE WAS DONE, PATIENT TRIED TO REMOVE NGT, WILL CONTINUE TO MONITOR AND SECURED RESTRAINTS.
--- NOTE | 2018-07-30 06:00 | NUR ---
NURSE NOTES: NO PAIN OR DISTRESS NOTED AT THIS SHIFT.
--- NOTE | 2018-07-30 07:15 | NUR ---
HAND-OFF: Report given to TITO/BALDO.
--- NOTE | 2018-07-30 07:30 | NUR ---
NURSE NOTES: Received patient and the change of shift from out going nurse Rickey RN. Awake, alert and able to respond with nodding head and blinking eyes. Patient is on ventilator and setting AC 12, TV 500, FiO2 40% and peep 5. NGT feeding Nephro is infusing @ 30ml/hr french no residual. Head of bed in 30 degree. Heel protector intact on both feet. No s/s of acute distress. HR 78, oxygen saturation 100%, Resp 14 and B/P 167/48.
--- NOTE | 2018-07-30 08:17 | NUR ---
Received Patient on ACVC RR 12, VT 500, Fio2 40%, PEEP +5. Patient intubated with a 7.5 ETT at 23cm at the lip. Patient currently on soft restraints to prevent self extubation. Bilateral rhonchi heard throughout lung ross. Suctioned thin white/ clear secretions. Patient is alert and awake and follows commands. Vent plugged into red outlet. Alarms on and audible. Will continue to monitor throughout the day.
[2018-07-30] MEDS: Pantoprazole Inj IVP SCH ×2 (08:35→20:39)
[2018-07-30] MEDS: Amiodarone 200mg tab ORAL SCH ×2 (08:35→20:39)
[2018-07-30] MEDS: Meropenem 500 MG in NS 55 ML IVPB SCH (08:36)
--- NOTE | 2018-07-30 09:00 | NUR ---
NURSE NOTES: Able to respond with care and no s/s of acute distress. B/P 181/15, HR 88, Resp 15 and oxygen saturation 100%.
--- NOTE | 2018-07-30 09:18 | NUR ---
Weaning started at 0918. Patient placed on SPONTANEOUS breathing with PS 8, PEEP +5, Fio2 40%.
--- NOTE | 2018-07-30 09:38 | NUR ---
Weaning stopped at 0936. Patients WOB increased.
--- NOTE | 2018-07-30 11:09 | Infectious Diseases Prog Note ---
"Assessment/Plan Assessment/Plan antibiotics : linezolid, meropenem A 1. VRE | e.coli UTI 2. shock 3. leucocytosis improving 4. respiratory failure 5. renal failure 6. 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 continue linezolid, meropenem 2. will follow up cultures Subjective ROS Limited/Unobtainable: Yes Allergies: Coded Allergies: No Known Allergies (Unverified , 07/25/18) Objective Vital Signs Last 24 Hour Vital Signs Date Time Temp Pulse Resp B/P (MAP) Pulse Ox O2 Delivery O2 Flow Rate FiO2 07/30/18 10:00 83 12 163/30 (74) 100 07/30/18 09:38 100 07/30/18 09:37 102 11 40 07/30/18 09:19 83 22 40 07/30/18 09:00 88 15 181/15 (70) 100 07/30/18 08:00 79 12 167/48 (87) 100 07/30/18 08:00 Mechanical Ventilator Mechanical Ventilator Mechanical Ventilator 07/30/18 08:00 40 07/30/18 07:00 81 12 171/34 (79) 100 07/30/18 06:55 81 13 40 07/30/18 06:00 84 12 123/36 (65) 100 07/30/18 05:05 105 14 40 07/30/18 05:00 99 15 127/54 (78) 100 07/30/18 04:00 40 07/30/18 04:00 98.0 100 16 125/42 (69) 99 07/30/18 04:00 Mechanical Ventilator Mechanical Ventilator Mechanical Ventilator 07/30/18 03:52 101 07/30/18 03:03 96 16 40 07/30/18 03:00 98 15 142/19 (60) 100 07/30/18 02:00 100 14 146/26 (66) 100 07/30/18 01:00 95 16 40 07/30/18 01:00 102 15 142/21 (61) 100 07/30/18 00:15 99 07/30/18 00:00 98.0 99 15 134/26 (62) 100 07/30/18 00:00 40 07/30/18 00:00 Mechanical Ventilator Mechanical Ventilator Mechanical Ventilator 07/29/18 23:00 96 13 40 07/29/18 23:00 98 15 145/31 (69) 100 07/29/18 22:00 97 14 157/19 (65) 99 07/29/18 21:00 98 14 40 07/29/18 21:00 97 14 154/11 (58) 100 07/29/18 20:00 Mechanical Ventilator Mechanical Ventilator Mechanical Ventilator 07/29/18 20:00 40 07/29/18 20:00 98.1 96 15 138/15 (56) 100 07/29/18 20:00 92 07/29/18 19:00 96 13 40 07/29/18 19:00 93 15 128/27 (60) 100 07/29/18 18:00 93 13 107/20 (49) 100 07/29/18 17:15 85 14 40 07/29/18 17:00 97.6 93 14 120/17 (51) 100 07/29/18 16:30 120/17 07/29/18 16:00 40 07/29/18 16:00 92 16 115/17 (49) 100 07/29/18 16:00 Mechanical Ventilator Mechanical Ventilator Mechanical Ventilator 07/29/18 16:00 87 07/29/18 15:00 92 16 84/14 (37) 100 07/29/18 14:40 83 17 40 07/29/18 14:00 95 12 114/21 (52) 100 07/29/18 13:00 94 12 100/32 (54) 100 07/29/18 12:55 95 14 40 07/29/18 12:00 95 13 103/16 (45) 99 07/29/18 12:00 40 07/29/18 12:00 108 07/29/18 12:00 Mechanical Ventilator Mechanical Ventilator Mechanical Ventilator Height (Feet): 5 Height (Inches): 2.00 Weight (Pounds): 129 HEENT: other - intubated Respiratory/Chest: lungs clear Cardiovascular: normal rate, regular rhythm, no gallop/murmur Abdomen: soft, non tender Extremities: no edema, other - right arm PICC Microbiology Date/Time Source Procedure Growth Status 07/27/18 11:40 Other(Specify in comment) Gram Stain - Final Complete 07/27/18 11:40 Wound Culture - Final Pseudomonas Aeruginosa Megha Albicans Complete 07/27/18 11:40 Sacral Wound Gram Stain - Final Complete 07/27/18 11:40 Wound Culture - Final Staphylococcus Aureus - Mrsa Megha Albicans Complete Laboratory Tests Test 07/30/18 07:25 Arterial Blood pH 7.396 (7.350-7.450) Arterial Blood Partial Pressure CO2 39.8 mmHg (35.0-45.0) Arterial Blood Partial Pressure O2 95.1 mmHg (75.0-100.0) Arterial Blood HCO3 23.9 mmol/L (22.0-26.0) Arterial Blood Oxygen Saturation 96.9 % (95-100) Arterial Blood Base Excess -0.9 (-2-2) Silverio Test N/a Current Medications Medications (Trade) Dose Ordered Sig/Renetta Route PRN Reason Start Time Stop Time Status Last Admin Dose Admin Amiodarone HCl (Cordarone) 200 mg EVERY 12 HOURS ORAL 07/26/18 21:00 08/25/18 20:59 07/30/18 08:35 Chlorhexidine Gluconate (Rylie-Hex 2%) 1 applic DAILY@2000 TOPIC 07/26/18 20:00 08/25/18 19:59 07/29/18 19:27 Epoetin Paul (Procrit (for ESRD on dialysis)) 10,000 units WED-WED-WED SUBQ 07/27/18 21:00 08/26/18 20:59 07/29/18 20:49 Iron Sucrose 100 mg/Sodium Chloride 60 ml @ 240 mls/hr BEDTIME IV 07/27/18 21:00 07/31/18 21:14 07/29/18 20:50 Linezolid (Zyvox) 600 mg EVERY 12 HOURS ORAL 07/27/18 21:00 08/01/18 20:59 07/30/18 08:36 Meropenem 500 mg/ Sodium Chloride 55 ml @ 110 mls/hr DAILY IVPB 07/27/18 12:00 08/01/18 11:59 07/30/18 08:36 Norepinephrine Bitartrate 4 mg/ Dextrose 250 ml @ 0 mls/hr Q24H IV 07/25/18 16:30 08/24/18 16:29 07/26/18 21:28 Pantoprazole (Protonix) 40 mg Q12HR IVP 07/25/18 21:00 08/25/18 08:59 07/30/18 08:35 Omid Morfin MD Jul 30, 2018 11:09"
--- NOTE | 2018-07-30 11:49 | Nephrology Progress Note ---
Assessment/Plan Assessment Seee below Plan MOF, improving slowly. Sepsis due to infected diabetic ulcers, R/O Osteo. On IV Abx. Called ID, Vasc. Sx, Podiatry. Septic Shock pressors PRN ESRD HD q MWF Anemia of CKD transfused yesterday, DARRYN high dose. Hct up to 34! Resp Failure - Vent per Pul. Trying to wean. REGINALDO Allan. 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 with LAE. LVEF 65% . Anticoagulate when stable. REGINALDO Butler. PVD. Needs Angio. REGINALDO Sauceda. Subjective Subjective Awake + alert. No c/o Objective Objective Last 24 Hour Vital Signs Date Time Temp Pulse Resp B/P (MAP) Pulse Ox O2 Delivery O2 Flow Rate FiO2 07/30/18 11:26 80 13 40 07/30/18 10:00 83 12 163/30 (74) 100 07/30/18 09:38 100 07/30/18 09:37 102 12 40 07/30/18 09:19 83 22 40 07/30/18 09:00 88 15 181/15 (70) 100 07/30/18 08:00 79 12 167/48 (87) 100 07/30/18 08:00 Mechanical Ventilator Mechanical Ventilator Mechanical Ventilator 07/30/18 08:00 40 07/30/18 07:00 81 12 171/34 (79) 100 07/30/18 06:55 81 13 40 07/30/18 06:00 84 12 123/36 (65) 100 07/30/18 05:05 105 14 40 07/30/18 05:00 99 15 127/54 (78) 100 07/30/18 04:00 40 07/30/18 04:00 98.0 100 16 125/42 (69) 99 07/30/18 04:00 Mechanical Ventilator Mechanical Ventilator Mechanical Ventilator 07/30/18 03:52 101 07/30/18 03:03 96 16 40 07/30/18 03:00 98 15 142/19 (60) 100 07/30/18 02:00 100 14 146/26 (66) 100 07/30/18 01:00 95 16 40 07/30/18 01:00 102 15 142/21 (61) 100 07/30/18 00:15 99 07/30/18 00:00 98.0 99 15 134/26 (62) 100 07/30/18 00:00 40 07/30/18 00:00 Mechanical Ventilator Mechanical Ventilator Mechanical Ventilator 07/29/18 23:00 96 13 40 07/29/18 23:00 98 15 145/31 (69) 100 07/29/18 22:00 97 14 157/19 (65) 99 07/29/18 21:00 98 14 40 07/29/18 21:00 97 14 154/11 (58) 100 07/29/18 20:00 Mechanical Ventilator Mechanical Ventilator Mechanical Ventilator 07/29/18 20:00 40 07/29/18 20:00 98.1 96 15 138/15 (56) 100 07/29/18 20:00 92 07/29/18 19:00 96 13 40 07/29/18 19:00 93 15 128/27 (60) 100 07/29/18 18:00 93 13 107/20 (49) 100 07/29/18 17:15 85 14 40 07/29/18 17:00 97.6 93 14 120/17 (51) 100 07/29/18 16:30 120/17 07/29/18 16:00 40 07/29/18 16:00 92 16 115/17 (49) 100 07/29/18 16:00 Mechanical Ventilator Mechanical Ventilator Mechanical Ventilator 07/29/18 16:00 87 07/29/18 15:00 92 16 84/14 (37) 100 07/29/18 14:40 83 17 40 07/29/18 14:00 95 12 114/21 (52) 100 07/29/18 13:00 94 12 100/32 (54) 100 07/29/18 12:55 95 14 40 07/29/18 12:00 95 13 103/16 (45) 99 07/29/18 12:00 40 07/29/18 12:00 108 07/29/18 12:00 Mechanical Ventilator Mechanical Ventilator Mechanical Ventilator Intake and Output 07/29/18 07/30/18 19:00 07:00 Intake Total 265 ml 460 ml Balance 265 ml 460 ml Intake Oral 0 ml 0 ml Free Water 70 ml IV Total 55 ml 60 ml Tube Feeding 140 ml 350 ml Other 50 ml # Voids 1 # Bowel Movements 4 Laboratory Tests 07/30/18 07:25: Arterial Blood pH 7.396, Arterial Blood Partial Pressure CO2 39.8, Arterial Blood Partial Pressure O2 95.1, Arterial Blood HCO3 23.9, Arterial Blood Oxygen Saturation 96.9, Arterial Blood Base Excess -0.9, Silverio Test N/a Height (Feet): 5 Height (Inches): 2.00 Weight (Pounds): 129 Objective Intubated, On vent. Cv IRR/IRR Lungs B ivelissechi. Abd SNT. BS + E Rt. foot diabetic ulcers with pus Chase He MD Jul 30, 2018 11:49
--- NOTE | 2018-07-30 11:50 | NUR ---
NURSE NOTES: Patient was seen by Dr. Smith and no new order. B/p 190/29, HR 79, resp 15 and oxygen saturation 100%.
--- NOTE | 2018-07-30 13:14 | Diagnostic Imaging Report ---
EXAM: XR Chest, 1 View CLINICAL HISTORY: ABN CHST TECHNIQUE: Frontal view of the chest. COMPARISON: Chest x-ray 07/26/18 FINDINGS: Lungs: Mild vascular congestion is stable. Bibasilar atelectasis/airspace disease, stable. Pleural space: Small right pleural effusion, stable. Moderate left pleural effusion increased in size. No pneumothorax. Heart: Cardiomegaly. Mediastinum: Unremarkable. Bones/joints: Unremarkable. Vasculature: Aortic knob calcification. Tubes, lines and devices: Right PICC line tip to the right axilla is unchanged. Endotracheal tube 1.8 cm above the dominick. NG tube traverses the diaphragm into the dominant. IMPRESSION: 1. Mild vascular congestion is stable. Bibasilar atelectasis/airspace disease. 2. Moderate left pleural effusion increased in size. Small right pleural effusion, stable. 3. Lines and tubes stable.
--- NOTE | 2018-07-30 13:45 | NUR ---
NURSE NOTES: Wound photos taken and uploaded.
--- NOTE | 2018-07-30 14:21 | Pulmonolgy Critical Care Note ---
Critical Care - Asmt/Plan Assessment/Plan: Assessment/Plan IMPRESSION: 1. Hypotension. 2. Sepsis. 3. Atrial fibrillation. 4. Bradycardia. 5. Diabetes mellitus. 6. End-stage renal disease on dialysis. 7. Left lung collapse. 8. Respiratory failure. 9. Dysphagia. 10. Dementia. 11. Anemia DISCUSSION: 1. Continue medications. 2. as needed Levophed. 3. status post bronchoscopy 4. Central access 5. Use broad-spectrum antibiotics. 6. continue weaning attempts Andres Allan M.D. Subjective Interval Events: Not weaning; s/p prbc Constitutional: Reports: no symptoms HEENT: Repors: no symptoms Cardiovascular: Reports: no symptoms Gastrointestinal/Abdominal: Reports: no symptoms Genitourinary: Reports: no symptoms Allergies: Coded Allergies: No Known Allergies (Unverified , 07/25/18) Objective Vital Signs Noted General Appearance: no acute distress HEENT: normocephalic Respiratory/Chest: chest wall non-tender, lungs clear Cardiovascular: normal peripheral pulses, normal rate Abdomen: normal bowel sounds Microbiology Date/Time Source Procedure Growth Status 07/27/18 11:40 Other(Specify in comment) Gram Stain - Final Resulted 07/27/18 11:40 Other(Specify in comment) Wound Culture - Preliminary Resulted 07/27/18 11:40 Sacral Wound Gram Stain - Final Resulted 07/27/18 11:40 Sacral Wound Wound Culture - Preliminary Resulted Laboratory Tests 07/28/18 13:50: Arterial Blood pH 7.250*L, Arterial Blood Partial Pressure CO2 48.3H, Arterial Blood Partial Pressure O2 75.1, Arterial Blood HCO3 20.8L, Arterial Blood Oxygen Saturation 91.8L, Arterial Blood Base Excess -6.4L, Silverio Test Positive 07/29/18 01:45: Stool Occult Blood [Pending] 07/29/18 04:00: White Blood Count 5.2, Red Blood Count 3.87L, Hemoglobin 10.4L, Hematocrit 34.4L , Mean Corpuscular Volume 89, Mean Corpuscular Hemoglobin 27.0, Mean Corpuscular Hemoglobin Concent 30.3L, Red Cell Distribution Width 15.5H, Platelet Count 148L, Mean Platelet Volume 8.4, Neutrophils (%) (Auto) 68.0, Lymphocytes (%) (Auto) 19.0L, Monocytes (%) (Auto) 7.7, Eosinophils (%) (Auto) 4.5H, Basophils (%) (Auto) 0.9, Sodium Level 130L, Potassium Level 4.0, Chloride Level 98, Carbon Dioxide Level 23, Anion Gap 9, Blood Urea Nitrogen 32H , Creatinine 4.6H, Estimat Glomerular Filtration Rate , Glucose Level 110H, Calcium Level 8.2L, Iron Level 57, Total Bilirubin 0.4, Aspartate Amino Transf ( AST/SGOT) 9L, Alanine Aminotransferase (ALT/SGPT) 8L, Alkaline Phosphatase 141H , Total Protein 7.3, Albumin 1.9L, Globulin 5.4, Albumin/Globulin Ratio 0.4L Current Medications Medications (Trade) Dose Ordered Sig/Renetta Route PRN Reason Start Time Stop Time Status Last Admin Dose Admin Amiodarone HCl (Cordarone) 200 mg EVERY 12 HOURS ORAL 07/26/18 21:00 08/25/18 20:59 07/28/18 20:37 Chlorhexidine Gluconate (Rylie-Hex 2%) 1 applic DAILY@2000 TOPIC 07/26/18 20:00 08/25/18 19:59 07/28/18 20:01 Epoetin Paul (Procrit (for ESRD on dialysis)) 10,000 units WED-WED-WED SUBQ 07/27/18 21:00 08/26/18 20:59 07/27/18 21:16 Heparin Sodium (Porcine) (Heparin Sod 1000 units/ml 10ml) 2,000 unit ONCE PRN IV DIALYSIS 07/28/18 09:54 07/29/18 23:59 Iron Sucrose 100 mg/Sodium Chloride 60 ml @ 240 mls/hr BEDTIME IV 07/27/18 21:00 07/31/18 21:14 07/28/18 20:36 Linezolid (Zyvox) 600 mg EVERY 12 HOURS ORAL 07/27/18 21:00 08/01/18 20:59 07/28/18 20:37 Meropenem 500 mg/ Sodium Chloride 55 ml @ 110 mls/hr DAILY IVPB 07/27/18 12:00 08/01/18 11:59 07/28/18 08:45 Norepinephrine Bitartrate 4 mg/ Dextrose 250 ml @ 0 mls/hr Q24H IV 07/25/18 16:30 08/24/18 16:29 07/26/18 21:28 Pantoprazole (Protonix) 40 mg Q12HR IVP 07/25/18 21:00 08/25/18 08:59 07/28/18 20:37 Sodium Chloride 1,000 ml @ 500 mls/hr Q2H PRN IVLG sbp<90 during hd 07/28/18 09:54 07/29/18 23:59 Critical Care - Objective Last 24 Hour Vital Signs Date Time Temp Pulse Resp B/P (MAP) Pulse Ox O2 Delivery O2 Flow Rate FiO2 07/30/18 12:49 78 13 40 07/30/18 11:26 80 13 40 07/30/18 10:00 83 12 163/30 (74) 100 07/30/18 09:38 100 07/30/18 09:37 102 12 40 07/30/18 09:19 83 22 40 07/30/18 09:00 88 15 181/15 (70) 100 07/30/18 08:00 79 12 167/48 (87) 100 07/30/18 08:00 Mechanical Ventilator Mechanical Ventilator Mechanical Ventilator 07/30/18 08:00 40 07/30/18 07:00 81 12 171/34 (79) 100 07/30/18 06:55 81 13 40 07/30/18 06:00 84 12 123/36 (65) 100 07/30/18 05:05 105 14 40 07/30/18 05:00 99 15 127/54 (78) 100 07/30/18 04:00 40 07/30/18 04:00 98.0 100 16 125/42 (69) 99 07/30/18 04:00 Mechanical Ventilator Mechanical Ventilator Mechanical Ventilator 07/30/18 03:52 101 07/30/18 03:03 96 16 40 07/30/18 03:00 98 15 142/19 (60) 100 07/30/18 02:00 100 14 146/26 (66) 100 07/30/18 01:00 95 16 40 07/30/18 01:00 102 15 142/21 (61) 100 07/30/18 00:15 99 07/30/18 00:00 98.0 99 15 134/26 (62) 100 07/30/18 00:00 40 07/30/18 00:00 Mechanical Ventilator Mechanical Ventilator Mechanical Ventilator 07/29/18 23:00 96 13 40 07/29/18 23:00 98 15 145/31 (69) 100 07/29/18 22:00 97 14 157/19 (65) 99 07/29/18 21:00 98 14 40 07/29/18 21:00 97 14 154/11 (58) 100 07/29/18 20:00 Mechanical Ventilator Mechanical Ventilator Mechanical Ventilator 07/29/18 20:00 40 07/29/18 20:00 98.1 96 15 138/15 (56) 100 07/29/18 20:00 92 07/29/18 19:00 96 13 40 07/29/18 19:00 93 15 128/27 (60) 100 07/29/18 18:00 93 13 107/20 (49) 100 07/29/18 17:15 85 14 40 07/29/18 17:00 97.6 93 14 120/17 (51) 100 07/29/18 16:30 120/17 07/29/18 16:00 40 07/29/18 16:00 92 16 115/17 (49) 100 07/29/18 16:00 Mechanical Ventilator Mechanical Ventilator Mechanical Ventilator 07/29/18 16:00 87 07/29/18 15:00 92 16 84/14 (37) 100 07/29/18 14:40 83 17 40 Critical Care - Subjective ROS Limited/Unobtainable: Yes Condition: stable FI02: 40 Vent Support Breath Rate: 12 Vent Support Mode: AC Vent Tidal Volume: 500 Sputum Amount: Scant PEEP: 5.0 PIP: 32 Tube Feeding Amount: 30 I&O: Intake and Output 07/29/18 07/30/18 19:00 07:00 Intake Total 265 ml 460 ml Balance 265 ml 460 ml Intake Oral 0 ml 0 ml Free Water 70 ml IV Total 55 ml 60 ml Tube Feeding 140 ml 350 ml Other 50 ml # Voids 1 # Bowel Movements 4 ET-Tube: 7.5 ET Position: 23 Negro Patel MD Jul 30, 2018 14:21
--- NOTE | 2018-07-30 15:31 | General Surgery Progress Note ---
General Surgery-Progress Note Subjective Procedure Performed left subclavian central venous catheter insertion Symptoms: improved Additional Comments awake. responsive. wants ET tube out. wants restraints off Objective Last 24 Hour Vital Signs Date Time Temp Pulse Resp B/P (MAP) Pulse Ox O2 Delivery O2 Flow Rate FiO2 07/30/18 15:05 78 12 40 07/30/18 12:49 78 13 40 07/30/18 12:00 Mechanical Ventilator Mechanical Ventilator Mechanical Ventilator 07/30/18 12:00 40 07/30/18 11:26 80 13 40 07/30/18 10:00 83 12 163/30 (74) 100 07/30/18 09:38 100 07/30/18 09:37 102 12 40 07/30/18 09:19 83 22 40 07/30/18 09:00 88 15 181/15 (70) 100 07/30/18 08:00 79 12 167/48 (87) 100 07/30/18 08:00 Mechanical Ventilator Mechanical Ventilator Mechanical Ventilator 07/30/18 08:00 40 07/30/18 07:00 81 12 171/34 (79) 100 07/30/18 06:55 81 13 40 07/30/18 06:00 84 12 123/36 (65) 100 07/30/18 05:05 105 14 40 07/30/18 05:00 99 15 127/54 (78) 100 07/30/18 04:00 40 07/30/18 04:00 98.0 100 16 125/42 (69) 99 07/30/18 04:00 Mechanical Ventilator Mechanical Ventilator Mechanical Ventilator 07/30/18 03:52 101 07/30/18 03:03 96 16 40 07/30/18 03:00 98 15 142/19 (60) 100 07/30/18 02:00 100 14 146/26 (66) 100 07/30/18 01:00 95 16 40 07/30/18 01:00 102 15 142/21 (61) 100 07/30/18 00:15 99 07/30/18 00:00 98.0 99 15 134/26 (62) 100 07/30/18 00:00 40 07/30/18 00:00 Mechanical Ventilator Mechanical Ventilator Mechanical Ventilator 07/29/18 23:00 96 13 40 07/29/18 23:00 98 15 145/31 (69) 100 07/29/18 22:00 97 14 157/19 (65) 99 07/29/18 21:00 98 14 40 07/29/18 21:00 97 14 154/11 (58) 100 07/29/18 20:00 Mechanical Ventilator Mechanical Ventilator Mechanical Ventilator 07/29/18 20:00 40 07/29/18 20:00 98.1 96 15 138/15 (56) 100 07/29/18 20:00 92 07/29/18 19:00 96 13 40 07/29/18 19:00 93 15 128/27 (60) 100 07/29/18 18:00 93 13 107/20 (49) 100 07/29/18 17:15 85 14 40 07/29/18 17:00 97.6 93 14 120/17 (51) 100 07/29/18 16:30 120/17 07/29/18 16:00 40 07/29/18 16:00 92 16 115/17 (49) 100 07/29/18 16:00 Mechanical Ventilator Mechanical Ventilator Mechanical Ventilator 07/29/18 16:00 87 I&O Intake and Output 07/29/18 07/30/18 19:00 07:00 Intake Total 265 ml 460 ml Balance 265 ml 460 ml Intake Oral 0 ml 0 ml Free Water 70 ml IV Total 55 ml 60 ml Tube Feeding 140 ml 350 ml Other 50 ml # Voids 1 # Bowel Movements 4 Dressing: other Wound: other Drains: other Cardiovascular: RSR Respiratory: decreased breath sounds Abdomen: soft, flat, non-tender, present bowel sounds Extremities: other Laboratory Tests Test 07/30/18 07:25 Arterial Blood pH 7.396 (7.350-7.450) Arterial Blood Partial Pressure CO2 39.8 mmHg (35.0-45.0) Arterial Blood Partial Pressure O2 95.1 mmHg (75.0-100.0) Arterial Blood HCO3 23.9 mmol/L (22.0-26.0) Arterial Blood Oxygen Saturation 96.9 % (95-100) Arterial Blood Base Excess -0.9 (-2-2) Silverio Test N/a Plan Problems: (1) Sepsis Assessment & Plan: acute decompensation hypotensive bradycardic respiratory decompensation requiring intubation and vent support - failed extubation improving leukocytosis resolved she looks much better cont current ICU care and management thank you will follow with recs (2) Hypotension (3) Bradycardia (4) Altered mental status (5) Decubital ulcer Assessment & Plan: Patient with multiple pressure injuries where have been present since admission. Full thickness pressure injury to sacrum (L)(L)2.4cm x (W)4.4cm x (D)0.9cm, undermining 12-12 with tunneling 9-10 by 11.3cm. In close proximity to sacral wound on L buttocks purple ,indurated area with small area of slough measuring (L)0.6cm x (W)0.5cm noted. Arched surgical scar noted to L buttocks at site of tunneling. Resolving pressure injury noted to R ischium (L)3cm x (W)2cm. Wound bed epithelialized with maroon discoloration without induration periwound. Closed area with white pocket and purple margins noted to distal,carmela R tibia (L)6cm x (W)2.7cm Full thickness wound noted to distal/medial RLE (L)6.2cm x (W)3.8cm .Wound noted to have 95% mixed slough /necrosis ,marginal erythema. Wound malodorous. Wound posterior R tibia (L)4.7cm x (W) 3cm ,100% necrotic with marginal erythema. Dry eschar with marginal erythema (L)0.5cm x (W)0.7cm noted to medial R heel.Non-blanchable erythema noted to medial L malleolus. Dry brown eschar noted to medial L 1st malleolus (L)1.4cm x (W)1cm. L heel and lateral aspect boggy with non-blanchable erythema. Tx.Plan: Cleanse sacral wound with Saline.Loose pack with Hydrogel impregnated packing strip (Attention to tunneled area at 9-10).Cover with Optifoam drsg Daily and prn. Reposition at least every 2hours or as tolerated. Air Fluidized mattress. Off-load heels with pillow. Appreciate Podiatry and Vascular input Plan for anigo late by Vascular Additional Comments son requests for restraints to be removed. he is at bedside and states will monitor her. explained risks of doing so and he expressed understanding. discussed risks of self extubation or removal of lines and tubes. he understood and will monitor her. okay to loosen restraints as they are causing her anxiety. Reji Nails Jul 30, 2018 15:31
[2018-07-30] MEDS ORDERED: NS 275ml ONE ×2 (15:59→16:06)
--- NOTE | 2018-07-30 16:00 | NUR ---
NURSE NOTES: Patient's son at bed side and B/P 160/27, HR 76, Resp 13 and oxygen saturation.
[2018-07-30] MEDS ORDERED: Tubing IV Secondary IV ONE (16:06)
--- NOTE | 2018-07-30 18:10 | Cardiology Progress Note ---
Assessment/Plan Assessment/Plan respiratory failure, improving, plan to wean atrial fibrillation, at present time in sinus rhythm, but was in a fib last night and her rate was about 100. not anticoagulatetd due to low HB Subjective Subjective The patient is intubated, family member at her site. she is pointing to her arms , complaining on discomfort and then to her abdomen. Objective Last 24 Hour Vital Signs Date Time Temp Pulse Resp B/P (MAP) Pulse Ox O2 Delivery O2 Flow Rate FiO2 07/30/18 17:01 75 14 40 07/30/18 17:00 74 15 164/21 (68) 100 07/30/18 16:30 150/31 07/30/18 16:00 Mechanical Ventilator Mechanical Ventilator Mechanical Ventilator 07/30/18 16:00 77 13 160/27 (71) 100 07/30/18 16:00 40 07/30/18 15:05 78 12 40 07/30/18 15:00 78 14 169/17 (67) 100 07/30/18 14:00 77 14 163/25 (71) 100 07/30/18 13:00 77 13 197/26 (82) 100 07/30/18 12:49 78 13 40 07/30/18 12:00 Mechanical Ventilator Mechanical Ventilator Mechanical Ventilator 07/30/18 12:00 40 07/30/18 12:00 98.4 80 16 195/13 (73) 100 07/30/18 12:00 79 07/30/18 11:26 80 13 40 07/30/18 11:00 83 14 195/13 (73) 100 07/30/18 10:00 83 12 163/30 (74) 100 07/30/18 09:38 100 07/30/18 09:37 102 12 40 07/30/18 09:19 83 22 40 07/30/18 09:00 88 15 181/15 (70) 100 07/30/18 08:00 79 07/30/18 08:00 98.7 79 12 167/48 (87) 100 07/30/18 08:00 Mechanical Ventilator Mechanical Ventilator Mechanical Ventilator 07/30/18 08:00 40 07/30/18 07:00 81 12 171/34 (79) 100 07/30/18 06:55 81 13 40 07/30/18 06:00 84 12 123/36 (65) 100 07/30/18 05:05 105 14 40 07/30/18 05:00 99 15 127/54 (78) 100 07/30/18 04:00 40 07/30/18 04:00 98.0 100 16 125/42 (69) 99 07/30/18 04:00 Mechanical Ventilator Mechanical Ventilator Mechanical Ventilator 07/30/18 03:52 101 07/30/18 03:03 96 16 40 07/30/18 03:00 98 15 142/19 (60) 100 07/30/18 02:00 100 14 146/26 (66) 100 07/30/18 01:00 95 16 40 07/30/18 01:00 102 15 142/21 (61) 100 07/30/18 00:15 99 07/30/18 00:00 98.0 99 15 134/26 (62) 100 07/30/18 00:00 40 07/30/18 00:00 Mechanical Ventilator Mechanical Ventilator Mechanical Ventilator 07/29/18 23:00 96 13 40 07/29/18 23:00 98 15 145/31 (69) 100 07/29/18 22:00 97 14 157/19 (65) 99 07/29/18 21:00 98 14 40 07/29/18 21:00 97 14 154/11 (58) 100 07/29/18 20:00 Mechanical Ventilator Mechanical Ventilator Mechanical Ventilator 07/29/18 20:00 40 07/29/18 20:00 98.1 96 15 138/15 (56) 100 07/29/18 20:00 92 07/29/18 19:00 96 13 40 07/29/18 19:00 93 15 128/27 (60) 100 General Appearance: on vent EENT: PERRL/EOMI Neck: no JVD Rhythm: Afib - in and out of atrial fibrillation Cardiovascular: tachycardia, systolic murmur Respiratory/Chest: decreased breath sounds Abdomen: non tender Extremities: slow capillary refill Intake and Output 07/29/18 07/30/18 18:59 06:59 Intake Total 265 ml 430 ml Balance 265 ml 430 ml Intake Oral 0 ml 0 ml Free Water 70 ml IV Total 55 ml 60 ml Tube Feeding 140 ml 320 ml Other 50 ml # Voids 1 # Bowel Movements 4 Laboratory Tests Test 07/30/18 07:25 Arterial Blood pH 7.396 (7.350-7.450) Arterial Blood Partial Pressure CO2 39.8 mmHg (35.0-45.0) Arterial Blood Partial Pressure O2 95.1 mmHg (75.0-100.0) Arterial Blood HCO3 23.9 mmol/L (22.0-26.0) Arterial Blood Oxygen Saturation 96.9 % (95-100) Arterial Blood Base Excess -0.9 (-2-2) Silverio Test N/a Karena Dahl MD Jul 30, 2018 18:10
--- NOTE | 2018-07-30 19:20 | NUR ---
HAND-OFF: Report given to Zenaida BLAND.
--- NOTE | 2018-07-30 19:25 | NUR ---
NURSE NOTES: Received report from BALDO FRANCIS. patient is awake, able to communicate with nodding head and blinking eyes. patient is orally intubated with 7.5 ETT at 23cm at the lip.ventilated with AC12 TV 500 FIO2 35% PEEP 5 and sating 98-100%. no s/s of respiratory or cardiac distress noted. SR with HR of 69. BP 157/25 RR 14. Afebrile.ongoing NGT feeding of Nepro at 30cc/hr with no residual. HOB elevated.patient is currently on bilateral soft wrist restraints to prevent self extubation.AV shunt on left upper arm with positive bruit and thrill. Midline on FLACO patent and asymptomatic.no signs of pain at this time.Family at bedside. bed in locked and lowest position and alarm on. call light in reach.will resume plan of care.
--- NOTE | 2018-07-30 19:40 | NUR ---
NURSE NOTES: Dr. COLES seen and examined patient and ordered that weaning determination tomorrow morning. will carried order.
--- NOTE | 2018-07-30 20:10 | NUR ---
NURSE NOTES: patient has multiple wounds and c/o pain in sacral area (02/06). there is no pain medication order. called Dr. COLES and obtained that Fentanyl 25 mcg IV q2hrs and PRN for severe pain. will proceed the order.
[2018-07-30] MEDS: Dyna-Hex 2% Top Sol 2oz TOPIC SCH (20:38)
[2018-07-30] MEDS: Iron Sucrose 100 MG in NS 55 ML IV SCH (20:38)
[2018-07-30] MEDS: fentaNYL 100 mcg/2 mL IV PRN ×2 (20:40→23:12)
--- NOTE | 2018-07-30 22:00 | NUR ---
NURSE NOTES: patient asleep in bed comfortably. vss. afebrile. Tolerating well with current vent settings. o2 saturation 99-100%.no facial grimace or moaning noted.
[2018-07-31] VITALS (24 sets, daily range): BP systolic 61–198; BP diastolic 12–67
--- NOTE | 2018-07-31 01:00 | NUR ---
NURSE NOTES: Awake, no signs of acute distress noted.Tolerating well with NGT feeds.no residual noted. keep HOB elevated.
[2018-07-31] MEDS: fentaNYL 100 mcg/2 mL IV PRN ×4 (02:50→17:33)
--- NOTE | 2018-07-31 04:00 | NUR ---
NURSE NOTES: provided sponge bath with using CHG. Suctioned with small amount of white thin secretions.oral care done.SR with HR of 68.Afebrile.continue on bilateral soft wrist restraints to prevent self extubation and pull out medical reimbursement manager.will continue to monitor patient..
--- NOTE | 2018-07-31 06:52 | NUR ---
RESPIRATORY NOTE: Patient received mechanically ventilated on PB840 with current ordered vent settings. Patient is orally intubated with a size 7.5 ETT tube with 23cm at the lip line. ETT tube is secured with anchor fast with no apparent skin breakdown or redness noted at this time. Bilateral coarse breath sounds were auscultated and moderate amount thick clear light/yellow secretions were suctioned without incident. There is an ambu bag available at the bedside and the vent is connected to a red outlet. Vent alarms are are audible and functional. Will continue to monitor patient.
--- NOTE | 2018-07-31 07:30 | NUR ---
NURSE NOTES: Received report from Zenaida BLAND. patient is awake, able to communicate with nodding head and blinking eyes. patient is intubated with 7.5 ETT at 23cm at the lip.ventilated with AC12 TV 500 FIO2 35% PEEP 5 and sating 100%. no s/s of respiratory or cardiac distress noted. VSS. Afebrile.ongoing NGT feeding of Nepro at 30cc/hr, no residual. bilateral soft wrist restraints .AV shunt on left upper arm with positive bruit and thrill. Midline on FLACO patent and asymptomatic. 6/10 pain at this time. Family at bedside. bed in locked and lowest position and alarm on. call light in reach.will resume plan of care.
--- NOTE | 2018-07-31 07:39 | NUR ---
HAND-OFF: Report given to BALDO ZAVALA using SBAR.
[2018-07-31] MEDS: Pantoprazole Inj IVP SCH ×2 (09:31→20:46)
[2018-07-31] MEDS: Meropenem 500 MG in NS 55 ML IVPB SCH (09:41)
[2018-07-31] MEDS: Amiodarone 200mg tab ORAL SCH ×2 (09:41→20:48)
--- NOTE | 2018-07-31 10:00 | NUR ---
NURSE NOTES: MD Harris here to see pt will input own orders.
--- NOTE | 2018-07-31 10:19 | Nephrology Progress Note ---
Assessment/Plan Assessment Seee below Plan MOF, improving slowly. Sepsis due to infected diabetic ulcers, R/O Osteo. On IV Abx. Called ID, Vasc. Sx, Podiatry. Septic Shock pressors PRN ESRD HD q MWF Anemia of CKD transfused yesterday, DARRYN high dose. Hct up to 34! Resp Failure - Vent per Pul. Trying to wean. REGINALDO Allan. 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 with LAE. LVEF 65% . Anticoagulate when stable. REGINALDO Butler. PVD. Needs Angio. REGINALDO Sauceda. Subjective Subjective Awake + alert. No c/o Objective Objective Last 24 Hour Vital Signs Date Time Temp Pulse Resp B/P (MAP) Pulse Ox O2 Delivery O2 Flow Rate FiO2 07/31/18 09:04 100 07/31/18 08:57 69 14 30 07/31/18 07:00 64 14 178/26 (76) 100 07/31/18 06:45 64 13 30 07/31/18 06:00 65 14 178/17 (70) 100 07/31/18 05:23 67 13 30 07/31/18 05:00 98.5 68 13 166/22 (70) 100 07/31/18 04:00 68 12 158/15 (62) 100 07/31/18 04:00 67 07/31/18 04:00 Mechanical Ventilator Mechanical Ventilator Mechanical Ventilator 07/31/18 04:00 35 07/31/18 03:14 65 13 35 07/31/18 03:00 64 12 159/15 (63) 100 07/31/18 02:00 67 14 159/17 (64) 100 07/31/18 01:05 67 12 35 07/31/18 01:00 66 13 162/18 (66) 100 07/31/18 00:00 35 07/31/18 00:00 98.5 68 12 154/17 (62) 100 07/31/18 00:00 Mechanical Ventilator Mechanical Ventilator Mechanical Ventilator 07/31/18 00:00 71 07/30/18 23:06 74 12 35 07/30/18 23:00 73 14 179/17 (70) 100 07/30/18 22:00 72 13 68/34 (45) 100 07/30/18 21:03 71 12 35 07/30/18 21:00 71 13 150/42 (78) 100 07/30/18 20:00 69 07/30/18 20:00 Mechanical Ventilator Mechanical Ventilator Mechanical Ventilator 07/30/18 20:00 35 07/30/18 20:00 98.6 73 20 157/25 (69) 100 07/30/18 19:00 75 14 153/19 (63) 100 07/30/18 18:51 75 13 35 07/30/18 18:00 75 14 153/19 (63) 100 07/30/18 17:01 75 14 40 07/30/18 17:00 74 15 164/21 (68) 100 07/30/18 16:30 150/31 07/30/18 16:00 Mechanical Ventilator Mechanical Ventilator Mechanical Ventilator 07/30/18 16:00 98.6 77 13 160/27 (71) 100 07/30/18 16:00 40 07/30/18 15:05 78 12 40 07/30/18 15:00 78 14 169/17 (67) 100 07/30/18 14:00 77 14 163/25 (71) 100 07/30/18 13:00 77 13 197/26 (82) 100 07/30/18 12:49 78 13 40 07/30/18 12:00 Mechanical Ventilator Mechanical Ventilator Mechanical Ventilator 07/30/18 12:00 40 07/30/18 12:00 98.4 80 16 195/13 (73) 100 07/30/18 12:00 79 07/30/18 11:26 80 13 40 07/30/18 11:00 83 14 195/13 (73) 100 Intake and Output 07/30/18 07/31/18 19:00 07:00 Intake Total 360 ml 570 ml Balance 360 ml 570 ml Free Water 150 ml IV Total 60 ml Tube Feeding 360 ml 360 ml # Voids 1 # Bowel Movements 4 2 Height (Feet): 5 Height (Inches): 2.00 Weight (Pounds): 132 Objective Intubated, On vent. BP very high 180/40 p ~60 A. Fib Cv IRR/IRR Lungs B ronchi. Abd SNT. BS + E Rt. foot diabetic ulcers with pus Chase He MD Jul 31, 2018 10:19
--- NOTE | 2018-07-31 11:46 | Infectious Diseases Prog Note ---
Assessment/Plan Assessment/Plan A: Sepsis UTI Cellulitis of R leg Hypercapnic respiratory failure ESRD on HD DM Anemia Dementia PVD R pleural effusion Mucous plug P; Continue Zyvox & Meropenem Subjective ROS Limited/Unobtainable: Yes Constitutional: Reports: no symptoms Respiratory: Reports: other - failed weaning Neurologic: Reports: other - on restraint Allergies: Coded Allergies: No Known Allergies (Unverified , 07/25/18) Objective Vital Signs Last 24 Hour Vital Signs Date Time Temp Pulse Resp B/P (MAP) Pulse Ox O2 Delivery O2 Flow Rate FiO2 07/31/18 10:49 62 12 30 07/31/18 09:04 100 07/31/18 08:57 69 14 30 07/31/18 07:00 64 14 178/26 (76) 100 07/31/18 06:45 64 13 30 07/31/18 06:00 65 14 178/17 (70) 100 07/31/18 05:23 67 13 30 07/31/18 05:00 98.5 68 13 166/22 (70) 100 07/31/18 04:00 68 12 158/15 (62) 100 07/31/18 04:00 67 07/31/18 04:00 Mechanical Ventilator Mechanical Ventilator Mechanical Ventilator 07/31/18 04:00 35 07/31/18 03:14 65 13 35 07/31/18 03:00 64 12 159/15 (63) 100 07/31/18 02:00 67 14 159/17 (64) 100 07/31/18 01:05 67 12 35 07/31/18 01:00 66 13 162/18 (66) 100 07/31/18 00:00 35 07/31/18 00:00 98.5 68 12 154/17 (62) 100 07/31/18 00:00 Mechanical Ventilator Mechanical Ventilator Mechanical Ventilator 07/31/18 00:00 71 07/30/18 23:06 74 12 35 07/30/18 23:00 73 14 179/17 (70) 100 07/30/18 22:00 72 13 68/34 (45) 100 07/30/18 21:03 71 12 35 07/30/18 21:00 71 13 150/42 (78) 100 07/30/18 20:00 69 07/30/18 20:00 Mechanical Ventilator Mechanical Ventilator Mechanical Ventilator 07/30/18 20:00 35 07/30/18 20:00 98.6 73 20 157/25 (69) 100 07/30/18 19:00 75 14 153/19 (63) 100 07/30/18 18:51 75 13 35 07/30/18 18:00 75 14 153/19 (63) 100 07/30/18 17:01 75 14 40 07/30/18 17:00 74 15 164/21 (68) 100 07/30/18 16:30 150/31 07/30/18 16:00 Mechanical Ventilator Mechanical Ventilator Mechanical Ventilator 07/30/18 16:00 98.6 77 13 160/27 (71) 100 07/30/18 16:00 40 07/30/18 15:05 78 12 40 07/30/18 15:00 78 14 169/17 (67) 100 07/30/18 14:00 77 14 163/25 (71) 100 07/30/18 13:00 77 13 197/26 (82) 100 07/30/18 12:49 78 13 40 07/30/18 12:00 Mechanical Ventilator Mechanical Ventilator Mechanical Ventilator 07/30/18 12:00 40 07/30/18 12:00 98.4 80 16 195/13 (73) 100 07/30/18 12:00 79 Height (Feet): 5 Height (Inches): 2.00 Weight (Pounds): 132 General Appearance: no acute distress HEENT: mucous membranes moist, other - orally intubated Respiratory/Chest: lungs clear, other - on ventilator Cardiovascular: normal rate, other - R arm midline Abdomen: soft, non tender, other - NG tube Neurologic/Psychiatric: alert, responsive Current Medications Medications (Trade) Dose Ordered Sig/Renetta Route PRN Reason Start Time Stop Time Status Last Admin Dose Admin Amiodarone HCl (Cordarone) 200 mg EVERY 12 HOURS ORAL 07/26/18 21:00 08/25/18 20:59 07/31/18 09:41 Chlorhexidine Gluconate (Rylie-Hex 2%) 1 applic DAILY@1999 TOPIC 07/26/18 20:00 08/25/18 19:59 07/30/18 20:38 Epoetin Paul (Procrit (for ESRD on dialysis)) 10,000 units WED-WED-WED SUBQ 07/27/18 21:00 08/26/18 20:59 11/30/18 20:49 Fentanyl Citrate (Sublimaze 100 mcg/2 mL) 25 mcg Q2H PRN IV Pain Scale (6-10) 07/30/18 20:15 08/06/18 20:14 07/31/18 09:47 Heparin Sodium (Porcine) (Heparin Sod 1000 units/ml 10ml) 2,000 unit ONCE IV 08/01/18 10:30 08/01/18 23:59 Iron Sucrose 100 mg/Sodium Chloride 60 ml @ 240 mls/hr BEDTIME IV 07/27/18 21:00 07/31/18 21:14 07/30/18 20:38 Linezolid (Zyvox) 600 mg EVERY 12 HOURS ORAL 07/27/18 21:00 08/01/18 20:59 07/31/18 09:41 Meropenem 500 mg/ Sodium Chloride 55 ml @ 110 mls/hr DAILY IVPB 07/27/18 12:00 08/01/18 11:59 07/31/18 09:41 Minoxidil (Loniten) 5 mg Q12HR NG 07/31/18 21:00 08/30/18 20:59 Norepinephrine Bitartrate 4 mg/ Dextrose 250 ml @ 0 mls/hr Q24H IV 07/25/18 16:30 08/24/18 16:29 07/26/18 21:28 Pantoprazole (Protonix) 40 mg Q12HR IVP 07/25/18 21:00 08/25/18 08:59 07/31/18 09:31 Sodium Chloride 1,000 ml @ 500 mls/hr Q2H PRN IVLG sbp<90 during hd 08/01/18 10:19 08/01/18 23:59 Freedom Randolph MD Jul 31, 2018 11:46
--- NOTE | 2018-07-31 11:52 | Pulmonolgy Critical Care Note ---
Critical Care - Asmt/Plan Assessment/Plan: Assessment/Plan IMPRESSION: 1. Hypotension. 2. Sepsis. 3. Atrial fibrillation. 4. Bradycardia. 5. Diabetes mellitus. 6. End-stage renal disease on dialysis. 7. Left lung collapse. 8. Respiratory failure. 9. Dysphagia. 10. Dementia. 11. Anemia DISCUSSION: 1. Continue medications. 2. as needed Levophed. 3. status post bronchoscopy 4. Central access 5. Use broad-spectrum antibiotics. 6. continue weaning attempts Andres Allan M.D. Subjective Interval Events: Not weaning; s/p prbc Constitutional: Reports: no symptoms HEENT: Repors: no symptoms Cardiovascular: Reports: no symptoms Gastrointestinal/Abdominal: Reports: no symptoms Genitourinary: Reports: no symptoms Allergies: Coded Allergies: No Known Allergies (Unverified , 07/25/18) Objective Vital Signs Noted General Appearance: no acute distress HEENT: normocephalic Respiratory/Chest: chest wall non-tender, lungs clear Cardiovascular: normal peripheral pulses, normal rate Abdomen: normal bowel sounds Microbiology Date/Time Source Procedure Growth Status 07/27/18 11:40 Other(Specify in comment) Gram Stain - Final Resulted 07/27/18 11:40 Other(Specify in comment) Wound Culture - Preliminary Resulted 07/27/18 11:40 Sacral Wound Gram Stain - Final Resulted 07/27/18 11:40 Sacral Wound Wound Culture - Preliminary Resulted Laboratory Tests 07/28/18 13:50: Arterial Blood pH 7.250*L, Arterial Blood Partial Pressure CO2 48.3H, Arterial Blood Partial Pressure O2 75.1, Arterial Blood HCO3 20.8L, Arterial Blood Oxygen Saturation 91.8L, Arterial Blood Base Excess -6.4L, Silverio Test Positive 07/29/18 01:45: Stool Occult Blood [Pending] 07/29/18 04:00: White Blood Count 5.2, Red Blood Count 3.87L, Hemoglobin 10.4L, Hematocrit 34.4L , Mean Corpuscular Volume 89, Mean Corpuscular Hemoglobin 27.0, Mean Corpuscular Hemoglobin Concent 30.3L, Red Cell Distribution Width 15.5H, Platelet Count 148L, Mean Platelet Volume 8.4, Neutrophils (%) (Auto) 68.0, Lymphocytes (%) (Auto) 19.0L, Monocytes (%) (Auto) 7.7, Eosinophils (%) (Auto) 4.5H, Basophils (%) (Auto) 0.9, Sodium Level 130L, Potassium Level 4.0, Chloride Level 98, Carbon Dioxide Level 23, Anion Gap 9, Blood Urea Nitrogen 32H , Creatinine 4.6H, Estimat Glomerular Filtration Rate , Glucose Level 110H, Calcium Level 8.2L, Iron Level 57, Total Bilirubin 0.4, Aspartate Amino Transf ( AST/SGOT) 9L, Alanine Aminotransferase (ALT/SGPT) 8L, Alkaline Phosphatase 141H , Total Protein 7.3, Albumin 1.9L, Globulin 5.4, Albumin/Globulin Ratio 0.4L Current Medications Medications (Trade) Dose Ordered Sig/Renetta Route PRN Reason Start Time Stop Time Status Last Admin Dose Admin Amiodarone HCl (Cordarone) 200 mg EVERY 12 HOURS ORAL 07/26/18 21:00 08/25/18 20:59 07/28/18 20:37 Chlorhexidine Gluconate (Rylie-Hex 2%) 1 applic DAILY@2000 TOPIC 07/26/18 20:00 08/25/18 19:59 07/28/18 20:01 Epoetin Paul (Procrit (for ESRD on dialysis)) 10,000 units WED-WED-WED SUBQ 07/27/18 21:00 08/26/18 20:59 07/27/18 21:16 Heparin Sodium (Porcine) (Heparin Sod 1000 units/ml 10ml) 2,000 unit ONCE PRN IV DIALYSIS 07/28/18 09:54 07/29/18 23:59 Iron Sucrose 100 mg/Sodium Chloride 60 ml @ 240 mls/hr BEDTIME IV 07/27/18 21:00 07/31/18 21:14 07/28/18 20:36 Linezolid (Zyvox) 600 mg EVERY 12 HOURS ORAL 07/27/18 21:00 08/01/18 20:59 07/28/18 20:37 Meropenem 500 mg/ Sodium Chloride 55 ml @ 110 mls/hr DAILY IVPB 07/27/18 12:00 08/01/18 11:59 07/28/18 08:45 Norepinephrine Bitartrate 4 mg/ Dextrose 250 ml @ 0 mls/hr Q24H IV 07/25/18 16:30 08/24/18 16:29 07/26/18 21:28 Pantoprazole (Protonix) 40 mg Q12HR IVP 07/25/18 21:00 08/25/18 08:59 07/28/18 20:37 Sodium Chloride 1,000 ml @ 500 mls/hr Q2H PRN IVLG sbp<90 during hd 07/28/18 09:54 07/29/18 23:59 Critical Care - Objective Last 24 Hour Vital Signs Date Time Temp Pulse Resp B/P (MAP) Pulse Ox O2 Delivery O2 Flow Rate FiO2 07/31/18 10:49 62 12 30 07/31/18 09:04 100 07/31/18 08:57 69 14 30 07/31/18 07:00 64 14 178/26 (76) 100 07/31/18 06:45 64 13 30 07/31/18 06:00 65 14 178/17 (70) 100 07/31/18 05:23 67 13 30 07/31/18 05:00 98.5 68 13 166/22 (70) 100 07/31/18 04:00 68 12 158/15 (62) 100 07/31/18 04:00 67 07/31/18 04:00 Mechanical Ventilator Mechanical Ventilator Mechanical Ventilator 07/31/18 04:00 35 07/31/18 03:14 65 13 35 07/31/18 03:00 64 12 159/15 (63) 100 07/31/18 02:00 67 14 159/17 (64) 100 07/31/18 01:05 67 12 35 07/31/18 01:00 66 13 162/18 (66) 100 07/31/18 00:00 35 07/31/18 00:00 98.5 68 12 154/17 (62) 100 07/31/18 00:00 Mechanical Ventilator Mechanical Ventilator Mechanical Ventilator 07/31/18 00:00 71 07/30/18 23:06 74 12 35 07/30/18 23:00 73 14 179/17 (70) 100 07/30/18 22:00 72 13 68/34 (45) 100 07/30/18 21:03 71 12 35 07/30/18 21:00 71 13 150/42 (78) 100 07/30/18 20:00 69 07/30/18 20:00 Mechanical Ventilator Mechanical Ventilator Mechanical Ventilator 07/30/18 20:00 35 07/30/18 20:00 98.6 73 20 157/25 (69) 100 07/30/18 19:00 75 14 153/19 (63) 100 07/30/18 18:51 75 13 35 07/30/18 18:00 75 14 153/19 (63) 100 07/30/18 17:01 75 14 40 07/30/18 17:00 74 15 164/21 (68) 100 07/30/18 16:30 150/31 07/30/18 16:00 Mechanical Ventilator Mechanical Ventilator Mechanical Ventilator 07/30/18 16:00 98.6 77 13 160/27 (71) 100 07/30/18 16:00 40 07/30/18 15:05 78 12 40 07/30/18 15:00 78 14 169/17 (67) 100 07/30/18 14:00 77 14 163/25 (71) 100 07/30/18 13:00 77 13 197/26 (82) 100 07/30/18 12:49 78 13 40 07/30/18 12:00 Mechanical Ventilator Mechanical Ventilator Mechanical Ventilator 07/30/18 12:00 40 07/30/18 12:00 98.4 80 16 195/13 (73) 100 07/30/18 12:00 79 Critical Care - Subjective ROS Limited/Unobtainable: No FI02: 30 Vent Support Breath Rate: 12 Vent Support Mode: AC Vent Tidal Volume: 500 Sputum Amount: Small PEEP: 5.0 PIP: 28 Tube Feeding Amount: 30 I&O: Intake and Output 07/30/18 07/31/18 19:00 07:00 Intake Total 360 ml 570 ml Balance 360 ml 570 ml Free Water 150 ml IV Total 60 ml Tube Feeding 360 ml 360 ml # Voids 1 # Bowel Movements 4 2 ET-Tube: 7.5 ET Position: 23 Negro Patel MD Jul 31, 2018 11:52
--- NOTE | 2018-07-31 12:24 | NUR ---
CASE MANAGEMENT: REVIEW 07/31/2018 SI: A-FIB . SEPSIS . ESRD ON HD T 98.5 HR 68 RR 13 B/P 166/22 SATS 100% ON MECH VENT fIO2 35 NO LABS TODAY IS: AMIODARONE PO Q12HR LEVOPHED GTT PROTONIX IV Q12HR PROCRIT SQ MWF ZYVOX PO Q12HR NGT FEEDING NEPRO @10ML/HR ICU STATUS DCP: PATIENT IS FROM [facility]
--- NOTE | 2018-07-31 12:30 | NUR ---
NURSE NOTES: Awake, no signs of acute distress noted.Tolerating well with NGT feeds.no residual noted. keep HOB elevated.
--- NOTE | 2018-07-31 14:02 | Cardiology Progress Note ---
Assessment/Plan Assessment/Plan no atrial fibrillation since last night Subjective Subjective The patient is intubated, family member at her site. did not sleep at night Objective Last 24 Hour Vital Signs Date Time Temp Pulse Resp B/P (MAP) Pulse Ox O2 Delivery O2 Flow Rate FiO2 07/31/18 12:47 60 12 30 07/31/18 12:00 30 07/31/18 12:00 Mechanical Ventilator Mechanical Ventilator Mechanical Ventilator 07/31/18 12:00 63 07/31/18 10:49 62 12 30 07/31/18 09:04 100 07/31/18 08:57 69 14 30 07/31/18 08:00 35 07/31/18 08:00 69 07/31/18 08:00 Mechanical Ventilator Mechanical Ventilator Mechanical Ventilator 07/31/18 07:00 64 14 178/26 (76) 100 07/31/18 06:45 64 13 30 07/31/18 06:00 65 14 178/17 (70) 100 07/31/18 05:23 67 13 30 07/31/18 05:00 98.5 68 13 166/22 (70) 100 07/31/18 04:00 68 12 158/15 (62) 100 07/31/18 04:00 67 07/31/18 04:00 Mechanical Ventilator Mechanical Ventilator Mechanical Ventilator 07/31/18 04:00 35 07/31/18 03:14 65 13 35 07/31/18 03:00 64 12 159/15 (63) 100 07/31/18 02:00 67 14 159/17 (64) 100 07/31/18 01:05 67 12 35 07/31/18 01:00 66 13 162/18 (66) 100 07/31/18 00:00 35 07/31/18 00:00 98.5 68 12 154/17 (62) 100 07/31/18 00:00 Mechanical Ventilator Mechanical Ventilator Mechanical Ventilator 07/31/18 00:00 71 07/30/18 23:06 74 12 35 07/30/18 23:00 73 14 179/17 (70) 100 07/30/18 22:00 72 13 68/34 (45) 100 07/30/18 21:03 71 12 35 07/30/18 21:00 71 13 150/42 (78) 100 07/30/18 20:00 69 12/1/18 20:00 Mechanical Ventilator Mechanical Ventilator Mechanical Ventilator 07/30/18 20:00 35 07/30/18 20:00 98.6 73 20 157/25 (69) 100 07/30/18 19:00 75 14 153/19 (63) 100 07/30/18 18:51 75 13 35 07/30/18 18:00 75 14 153/19 (63) 100 07/30/18 17:01 75 14 40 07/30/18 17:00 74 15 164/21 (68) 100 07/30/18 16:30 150/31 07/30/18 16:00 Mechanical Ventilator Mechanical Ventilator Mechanical Ventilator 07/30/18 16:00 98.6 77 13 160/27 (71) 100 07/30/18 16:00 40 07/30/18 15:05 78 12 40 07/30/18 15:00 78 14 169/17 (67) 100 General Appearance: on vent EENT: PERRL/EOMI Neck: no JVD Cardiovascular: regular rhythm Respiratory/Chest: decreased breath sounds, crackles/rales Abdomen: soft Extremities: slow capillary refill Intake and Output 07/30/18 07/31/18 19:00 07:00 Intake Total 360 ml 570 ml Balance 360 ml 570 ml Free Water 150 ml IV Total 60 ml Tube Feeding 360 ml 360 ml # Voids 1 # Bowel Movements 4 2 Karena Dahl MD Jul 31, 2018 14:02
--- NOTE | 2018-07-31 14:07 | General Surgery Progress Note ---
General Surgery-Progress Note Subjective Procedure Performed left subclavian central venous catheter insertion Additional Comments no acute events. able to write on paper. son at bedside. Objective Last 24 Hour Vital Signs Date Time Temp Pulse Resp B/P (MAP) Pulse Ox O2 Delivery O2 Flow Rate FiO2 07/31/18 12:47 60 12 30 07/31/18 12:00 Mechanical Ventilator Mechanical Ventilator Mechanical Ventilator 07/31/18 12:00 63 07/31/18 10:49 62 12 30 07/31/18 09:04 100 07/31/18 08:57 69 14 30 07/31/18 08:00 69 07/31/18 08:00 Mechanical Ventilator Mechanical Ventilator Mechanical Ventilator 07/31/18 07:00 64 14 178/26 (76) 100 07/31/18 06:45 64 13 30 07/31/18 06:00 65 14 178/17 (70) 100 07/31/18 05:23 67 13 30 07/31/18 05:00 98.5 68 13 166/22 (70) 100 07/31/18 04:00 68 12 158/15 (62) 100 07/31/18 04:00 67 07/31/18 04:00 Mechanical Ventilator Mechanical Ventilator Mechanical Ventilator 07/31/18 04:00 35 07/31/18 03:14 65 13 35 07/31/18 03:00 64 12 159/15 (63) 100 07/31/18 02:00 67 14 159/17 (64) 100 07/31/18 01:05 67 12 35 07/31/18 01:00 66 13 162/18 (66) 100 07/31/18 00:00 35 07/31/18 00:00 98.5 68 12 154/17 (62) 100 07/31/18 00:00 Mechanical Ventilator Mechanical Ventilator Mechanical Ventilator 07/31/18 00:00 71 07/30/18 23:06 74 12 35 07/30/18 23:00 73 14 179/17 (70) 100 07/30/18 22:00 72 13 68/34 (45) 100 07/30/18 21:03 71 12 35 07/30/18 21:00 71 13 150/42 (78) 100 07/30/18 20:00 69 07/30/18 20:00 Mechanical Ventilator Mechanical Ventilator Mechanical Ventilator 07/30/18 20:00 35 07/30/18 20:00 98.6 73 20 157/25 (69) 100 07/30/18 19:00 75 14 153/19 (63) 100 07/30/18 18:51 75 13 35 07/30/18 18:00 75 14 153/19 (63) 100 07/30/18 17:01 75 14 40 07/30/18 17:00 74 15 164/21 (68) 100 07/30/18 16:30 150/31 07/30/18 16:00 Mechanical Ventilator Mechanical Ventilator Mechanical Ventilator 07/30/18 16:00 98.6 77 13 160/27 (71) 100 07/30/18 16:00 40 07/30/18 15:05 78 12 40 07/30/18 15:00 78 14 169/17 (67) 100 07/30/18 14:00 77 14 163/25 (71) 100 I&O Intake and Output 07/30/18 07/31/18 19:00 07:00 Intake Total 360 ml 570 ml Balance 360 ml 570 ml Free Water 150 ml IV Total 60 ml Tube Feeding 360 ml 360 ml # Voids 1 # Bowel Movements 4 2 Dressing: other Wound: other Drains: other Cardiovascular: RSR Respiratory: decreased breath sounds Abdomen: soft, flat, non-tender, present bowel sounds Extremities: no cyanosis Plan Problems: (1) Sepsis Assessment & Plan: acute decompensation hypotensive bradycardic respiratory decompensation requiring intubation and vent support - failed extubation improving leukocytosis resolved she looks much better cont current ICU care and management thank you will follow with recs (2) Hypotension (3) Bradycardia (4) Altered mental status (5) Decubital ulcer Assessment & Plan: Patient with multiple pressure injuries where have been present since admission. Full thickness pressure injury to sacrum (L)(L)2.4cm x (W)4.4cm x (D)0.9cm, undermining 12-12 with tunneling 9-10 by 11.3cm. In close proximity to sacral wound on L buttocks purple ,indurated area with small area of slough measuring (L)0.6cm x (W)0.5cm noted. Arched surgical scar noted to L buttocks at site of tunneling. Resolving pressure injury noted to R ischium (L)3cm x (W)2cm. Wound bed epithelialized with maroon discoloration without induration periwound. Closed area with white pocket and purple margins noted to distal,carmela R tibia (L)6cm x (W)2.7cm Full thickness wound noted to distal/medial RLE (L)6.2cm x (W)3.8cm .Wound noted to have 95% mixed slough /necrosis ,marginal erythema. Wound malodorous. Wound posterior R tibia (L)4.7cm x (W) 3cm ,100% necrotic with marginal erythema. Dry eschar with marginal erythema (L)0.5cm x (W)0.7cm noted to medial R heel.Non-blanchable erythema noted to medial L malleolus. Dry brown eschar noted to medial L 1st malleolus (L)1.4cm x (W)1cm. L heel and lateral aspect boggy with non-blanchable erythema. Tx.Plan: Cleanse sacral wound with Saline.Loose pack with Hydrogel impregnated packing strip (Attention to tunneled area at 9-10).Cover with Optifoam drsg Daily and prn. Reposition at least every 2hours or as tolerated. Air Fluidized mattress. Off-load heels with pillow. Appreciate Podiatry and Vascular input Plan for anigo late by Vascular Reji Nails Jul 31, 2018 14:07
[2018-07-31] MEDS ORDERED: Tubing IV Secondary IV ONE (14:43)
[2018-07-31] MEDS ORDERED: NS 275ml ONE ×2 (14:43→15:14)
[2018-07-31] MEDS ORDERED: Lacri-Lube Opth Oint 3.5gm BOTH EYES ONE (18:30)
--- NOTE | 2018-07-31 19:05 | NUR ---
RESPIRATORY NOTE: Received pt on AC 12, 500VT, 30%, PEEP +5. Pt intubated w/ ETT 7.5 @ 23cm lipline, secured by anchorfast. Pt alert/awake, follows commands. Both hands on soft restraints to prevent pt from self-extubation. Vent plugged into red outlet, ambubag at bedside. Pt denies SOB/chest pain at this time. Will continue to monitor pt.
--- NOTE | 2018-07-31 19:23 | NUR ---
NURSE NOTES: IRC was called to schedule HD tx per Dr He's order for 08/01/18 to confirm.
--- NOTE | 2018-07-31 20:00 | NUR ---
NURSE NOTES: Received pt in no acute distress. Asleep but arousable to voice. Remains orally intubated and appears to be tolerating current vent settings of AC12 TV500 fiO2 .30, peep 5 and saturating 100%Secretions mod amt, mostly orally, thin, white, Chest sounds with scatttered rhonchi. Pt apparrently failed weaning today. On bila soft wrist restraints as pt tends to be impulsive. NGT in situ, and TF with Nepro continue at 30ml/h with 0 residuals. Abdomen soft, no BM at this time. MKidline cath on FLACO intact. IV at TKO. AV graft on SHARON with strong bruit and thrill. Anuric, pt foe HD dipika morning. Wound dressings dry and intact. Will continue to monitor
[2018-07-31] MEDS: Dyna-Hex 2% Top Sol 2oz TOPIC SCH (20:09)
[2018-07-31] MEDS: Iron Sucrose 100 MG in NS 55 ML IV SCH (20:46)
[2018-07-31] MEDS: Minoxidil 2.5mg tab NG SCH (20:48)
--- NOTE | 2018-07-31 22:00 | NUR ---
NURSE NOTES: Calm and asleep. SB rate 52 on the monitor, BP 120/22. Asymptomatic.
[2018-08-01] VITALS (24 sets, daily range): BP systolic 83–130; BP diastolic 12–60
--- NOTE | 2018-08-01 | NUR ---
NURSE NOTES: Continues to sleep soundly. Bilat soft wrist restraints renewed per order. HR 56, sinus devonte; asymptomatic. Afebrile.
--- NOTE | 2018-08-01 02:00 | NUR ---
NURSE NOTES: Sleeping; tolerating TF well. HR 53; BP 109/18; asymptomatic.No distress.
--- NOTE | 2018-08-01 04:00 | NUR ---
NURSE NOTES: Complete bath given. No BM. Awake and calm, cooperative. Wound dressings changed. Remains anuric. Left UA AV graft with strong bruit and thrill. Tolerates TF and current vent parameters.
[2018-08-01 05:49] LABS: BASOPHILS % (AUTO) 1.5 % (0.0-2.0); EOSINOPHILS % (AUTO) 4.6 % (0.0-3.0); HEMATOCRIT 31.4 % (37.0-47.0); HEMOGLOBIN 9.4 G/DL (12.0-16.0); LYMPHOCYTES % (AUTO) 9.2 % (20.0-45.0); MEAN CORPUSCULAR VOLUME 93 FL (80-99); MONOCYTES % (AUTO) 10.2 % (1.0-10.0); NEUTROPHILS % (AUTO) 74.6 % (45.0-75.0); PLATELET COUNT 278 K/UL (150-450); RED BLOOD COUNT 3.37 M/UL (4.20-5.40); RED CELL DISTRIBUTION WIDTH 18.8 % (11.6-14.8); WHITE BLOOD COUNT 5.4 K/UL (4.8-10.8)
[2018-08-01 06:07] LABS: ALANINE AMINOTRANSFERASE 6 U/L (12-78); ALBUMIN 1.5 G/DL (3.4-5.0); ALBUMIN/GLOBULIN RATIO 0.3 (1.0-2.7); ALKALINE PHOSPHATASE 99 U/L (46-116); ANION GAP 11 mmol/L (5-15); ASPARTATE AMINO TRANSFERASE 15 U/L (15-37); BILIRUBIN,TOTAL 0.3 MG/DL (0.2-1.0); BLOOD UREA NITROGEN 46 mg/dL (7-18); CALCIUM 8.7 MG/DL (8.5-10.1); CARBON DIOXIDE 25 MMOL/L (21-32); CHLORIDE 105 MMOL/L (98-107); CREATININE 3.6 MG/DL (0.55-1.30); PHOSPHORUS 3.8 MG/DL (2.5-4.9); POTASSIUM 3.4 MMOL/L (3.5-5.1); SODIUM 141 MMOL/L (136-145)
--- NOTE | 2018-08-01 06:58 | NUR ---
RESPIRATORY NOTE: Received pt on current vent settings. Pt endotracheal tube is patent and secured. No resp distress noted. Suctioned pt prn. Vent alarms are on and audible. Vent is plugged into red outlet. Will monitor pt progress.
--- NOTE | 2018-08-01 07:15 | NUR ---
HAND-OFF: Report given to Deborah Hairston RN.
--- NOTE | 2018-08-01 07:30 | NUR ---
NURSE NOTES: Received report from Eddie BLAND. patient is asleep,arouses with light shaking. appears fatigued. no c/o pain at this time. patient is intubated with 7.5 ETT at 23cm at the lip.ventilated with AC12 TV 500 FIO2 35% PEEP 5 and 02 qly226%. No s/s of respiratory distress noted. VSS. Afebrile. NGT feeding of Nepro at 30cc/hr, no residual. abdomen flat, bowel sounds present in all quadrants. bilateral soft wrist restraints noted, circulation check. AV shunt on left upper arm, bruit and thrill present. FLACO midline patent and intact. contact and fall precautions in place. bed in locked and lowest position and alarm on. call light in reach. education on H>D and plan of care. will continue to monitor to pt closely..
--- NOTE | 2018-08-01 07:50 | NUR ---
NURSE NOTES: R.T reports pt not making volume effort to continue SIMV mode. Will attempt again later when pt is more awake.
--- NOTE | 2018-08-01 08:54 | Nephrology Progress Note ---
Assessment/Plan Assessment Seee below Plan MOF, improving slowly. Sepsis due to infected diabetic ulcers, R/O Osteo. On IV Abx. Called ID, Vasc. Sx, Podiatry. Septic Shock pressors PRN ESRD HD q MWF Anemia of CKD , DARRYN high dose. Transfuse PRN. Resp Failure - Vent per Pul. Trying to wean. REGINALDO Allan. 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 with LAE. LVEF 65% . Anticoagulate when stable. REGINALDO Butler. PVD. Needs Angio. REGINALDO Sauceda. Subjective Subjective Awake + alert. No c/o Objective Objective Last 24 Hour Vital Signs Date Time Temp Pulse Resp B/P (MAP) Pulse Ox O2 Delivery O2 Flow Rate FiO2 08/01/18 08:00 30 08/01/18 08:00 Mechanical Ventilator Mechanical Ventilator Mechanical Ventilator 08/01/18 07:00 53 12 123/12 (49) 100 08/01/18 06:58 55 12 08/01/18 06:00 52 12 128/30 (62) 99 08/01/18 05:12 54 12 30 08/01/18 05:00 56 12 121/17 (51) 100 08/01/18 04:00 30 08/01/18 04:00 97.7 61 13 116/19 (51) 100 08/01/18 04:00 61 08/01/18 04:00 Mechanical Ventilator Mechanical Ventilator Mechanical Ventilator 08/01/18 03:12 59 12 30 08/01/18 03:00 63 12 125/18 (53) 100 08/01/18 02:00 53 12 109/18 (48) 100 08/01/18 01:10 54 12 30 08/01/18 01:00 56 12 124/12 (49) 100 08/01/18 00:00 97.7 56 12 127/22 (57) 100 08/01/18 00:00 Mechanical Ventilator Mechanical Ventilator Mechanical Ventilator 08/01/18 00:00 30 07/31/18 23:13 53 12 30 07/31/18 23:00 52 12 120/22 (54) 100 07/31/18 22:00 53 12 118/22 (54) 100 07/31/18 21:05 63 12 30 07/31/18 21:00 56 12 125/24 (57) 100 07/31/18 20:48 121/36 07/31/18 20:00 98.5 54 12 121/36 (64) 100 07/31/18 20:00 30 07/31/18 20:00 Mechanical Ventilator Mechanical Ventilator Mechanical Ventilator 07/31/18 20:00 54 07/31/18 19:03 61 12 30 07/31/18 19:03 61 12 Mechanical Ventilator 30 07/31/18 19:00 57 14 127/49 (75) 100 07/31/18 18:00 57 14 127/27 (60) 100 07/31/18 17:06 63 12 30 07/31/18 17:00 65 14 84/67 (73) 100 07/31/18 16:30 102/52 07/31/18 16:00 98.6 62 14 121/12 (48) 100 07/31/18 16:00 30 07/31/18 16:00 Mechanical Ventilator Mechanical Ventilator Mechanical Ventilator 07/31/18 16:00 60 07/31/18 15:00 62 14 61/39 (46) 100 07/31/18 14:46 62 12 30 07/31/18 14:00 64 14 171/15 (66) 100 07/31/18 13:00 60 14 163/18 (66) 100 07/31/18 12:47 60 12 30 07/31/18 12:00 30 07/31/18 12:00 Mechanical Ventilator Mechanical Ventilator Mechanical Ventilator 07/31/18 12:00 63 07/31/18 12:00 98.2 60 12 168/30 (76) 100 07/31/18 11:00 62 13 178/26 (76) 100 07/31/18 10:49 62 12 30 07/31/18 10:00 64 12 198/31 (86) 100 07/31/18 09:04 100 07/31/18 09:00 74 14 178/26 (76) 99 07/31/18 08:57 69 14 30 Intake and Output 07/31/18 08/01/18 19:00 07:00 Intake Total 470 ml 360 ml Balance 470 ml 360 ml IV Total 110 ml Tube Feeding 360 ml 360 ml # Bowel Movements 1 Laboratory Tests 08/01/18 04:45: White Blood Count 5.4, Red Blood Count 3.37L, Hemoglobin 9.4L, Hematocrit 31.4L , Mean Corpuscular Volume 93, Mean Corpuscular Hemoglobin 27.8, Mean Corpuscular Hemoglobin Concent 29.9L, Red Cell Distribution Width 18.8H, Platelet Count 278, Mean Platelet Volume 6.1L, Neutrophils (%) (Auto) 74.6, Lymphocytes (%) (Auto) 9.2L, Monocytes (%) (Auto) 10.2H, Eosinophils (%) (Auto) 4.6H, Basophils (%) (Auto) 1.5, Sodium Level 141, Potassium Level 3.4L, Chloride Level 105, Carbon Dioxide Level 25, Anion Gap 11, Blood Urea Nitrogen 46H, Creatinine 3.6H, Estimat Glomerular Filtration Rate , Glucose Level 113H, Calcium Level 8.7, Phosphorus Level 3.8, Total Bilirubin 0.3, Aspartate Amino Transf (AST/SGOT) 15, Alanine Aminotransferase (ALT/SGPT) 6L, Alkaline Phosphatase 99, Total Protein 6.1L, Albumin 1.5L, Globulin 4.6, Albumin/ Globulin Ratio 0.3L Height (Feet): 5 Height (Inches): 2.00 Weight (Pounds): 144 Objective Intubated, On vent. BP measured more accurately with a smaller cuff placed on rt. FA. Cv IRR/IRR Lungs B ronchi. Abd SNT. BS + E Rt. foot diabetic ulcers with pus Chase He MD Aug 01, 2018 08:54
[2018-08-01] MEDS: Minoxidil 2.5mg tab NG SCH ×2 (09:00→21:00)
--- NOTE | 2018-08-01 09:00 | NUR ---
NURSE NOTES: MD Harris here to see pt. No new orders.
--- NOTE | 2018-08-01 09:09 | NUR ---
NURSE NOTES: MD Allan here to see pt.
--- NOTE | 2018-08-01 09:14 | Pulmonology Progress Note ---
Assessment/Plan Assessment/Plan IMPRESSION: 1. Hypotension. 2. Sepsis. 3. Atrial fibrillation. 4. Bradycardia. 5. Diabetes mellitus. 6. End-stage renal disease on dialysis. 7. Left lung collapse. Resolved 8. Respiratory failure. 9. Dysphagia. 10. Dementia. 11. Anemia 12. Pneumonia DISCUSSION: 1. Continue medications. 2. as needed Levophed. 3. status post bronchoscopy 4. Central access 5. Use broad-spectrum antibiotics. 6. continue weaning attempts Andres Allan M.D. Subjective Interval Events: Remains on vent Constitutional: Reports: no symptoms HEENT: Repors: no symptoms Respiratory: Reports: no symptoms Cardiovascular: Reports: no symptoms Gastrointestinal/Abdominal: Reports: no symptoms Genitourinary: Reports: no symptoms Allergies: Coded Allergies: No Known Allergies (Unverified , 07/25/18) Objective Last 24 Hour Vital Signs Date Time Temp Pulse Resp B/P (MAP) Pulse Ox O2 Delivery O2 Flow Rate FiO2 08/01/18 08:58 100 08/01/18 08:58 58 12 30 08/01/18 08:00 30 08/01/18 08:00 Mechanical Ventilator Mechanical Ventilator Mechanical Ventilator 08/01/18 07:00 53 12 123/12 (49) 100 08/01/18 06:58 55 12 30 08/01/18 06:00 52 12 128/30 (62) 99 08/01/18 05:12 54 12 30 08/01/18 05:00 56 12 121/17 (51) 100 08/01/18 04:00 30 08/01/18 04:00 97.7 61 13 116/19 (51) 100 08/01/18 04:00 61 08/01/18 04:00 Mechanical Ventilator Mechanical Ventilator Mechanical Ventilator 08/01/18 03:12 59 12 30 08/01/18 03:00 63 12 125/18 (53) 100 08/01/18 02:00 53 12 109/18 (48) 100 08/01/18 01:10 54 12 30 08/01/18 01:00 56 12 124/12 (49) 100 12/3/18 00:00 97.7 56 12 127/22 (57) 100 08/01/18 00:00 Mechanical Ventilator Mechanical Ventilator Mechanical Ventilator 08/01/18 00:00 30 07/31/18 23:13 53 12 30 07/31/18 23:00 52 12 120/22 (54) 100 07/31/18 22:00 53 12 118/22 (54) 100 07/31/18 21:05 63 12 30 07/31/18 21:00 56 12 125/24 (57) 100 07/31/18 20:48 121/36 07/31/18 20:00 98.5 54 12 121/36 (64) 100 07/31/18 20:00 30 07/31/18 20:00 Mechanical Ventilator Mechanical Ventilator Mechanical Ventilator 07/31/18 20:00 54 07/31/18 19:03 61 12 30 07/31/18 19:03 61 12 Mechanical Ventilator 30 07/31/18 19:00 57 14 127/49 (75) 100 07/31/18 18:00 57 14 127/27 (60) 100 07/31/18 17:06 63 12 30 07/31/18 17:00 65 14 84/67 (73) 100 07/31/18 16:30 102/52 07/31/18 16:00 98.6 62 14 121/12 (48) 100 07/31/18 16:00 30 07/31/18 16:00 Mechanical Ventilator Mechanical Ventilator Mechanical Ventilator 07/31/18 16:00 60 07/31/18 15:00 62 14 61/39 (46) 100 07/31/18 14:46 62 12 30 07/31/18 14:00 64 14 171/15 (66) 100 07/31/18 13:00 60 14 163/18 (66) 100 07/31/18 12:47 60 12 30 07/31/18 12:00 30 07/31/18 12:00 Mechanical Ventilator Mechanical Ventilator Mechanical Ventilator 07/31/18 12:00 63 07/31/18 12:00 98.2 60 12 168/30 (76) 100 07/31/18 11:00 62 13 178/26 (76) 100 07/31/18 10:49 62 12 30 07/31/18 10:00 64 12 198/31 (86) 100 Intake and Output 07/31/18 08/01/18 19:00 07:00 Intake Total 470 ml 360 ml Balance 470 ml 360 ml IV Total 110 ml Tube Feeding 360 ml 360 ml # Bowel Movements 1 General Appearance: no acute distress HEENT: normocephalic Respiratory/Chest: chest wall non-tender Cardiovascular: normal peripheral pulses, normal rate Abdomen: normal bowel sounds, soft, non tender Laboratory Tests 08/01/18 04:45: White Blood Count 5.4, Red Blood Count 3.37L, Hemoglobin 9.4L, Hematocrit 31.4L , Mean Corpuscular Volume 93, Mean Corpuscular Hemoglobin 27.8, Mean Corpuscular Hemoglobin Concent 29.9L, Red Cell Distribution Width 18.8H, Platelet Count 278, Mean Platelet Volume 6.1L, Neutrophils (%) (Auto) 74.6, Lymphocytes (%) (Auto) 9.2L, Monocytes (%) (Auto) 10.2H, Eosinophils (%) (Auto) 4.6H, Basophils (%) (Auto) 1.5, Sodium Level 141, Potassium Level 3.4L, Chloride Level 105, Carbon Dioxide Level 25, Anion Gap 11, Blood Urea Nitrogen 46H, Creatinine 3.6H, Estimat Glomerular Filtration Rate , Glucose Level 113H, Calcium Level 8.7, Phosphorus Level 3.8, Total Bilirubin 0.3, Aspartate Amino Transf (AST/SGOT) 15, Alanine Aminotransferase (ALT/SGPT) 6L, Alkaline Phosphatase 99, Total Protein 6.1L, Albumin 1.5L, Globulin 4.6, Albumin/ Globulin Ratio 0.3L Current Medications Medications (Trade) Dose Ordered Sig/Renetta Route PRN Reason Start Time Stop Time Status Last Admin Dose Admin Amiodarone HCl (Cordarone) 200 mg EVERY 12 HOURS ORAL 07/26/18 21:00 08/25/18 20:59 07/31/18 20:48 Chlorhexidine Gluconate (Rylie-Hex 2%) 1 applic DAILY@1999 TOPIC 07/26/18 20:00 08/25/18 19:59 07/31/18 20:09 Epoetin Paul (Procrit (for ESRD on dialysis)) 10,000 units WED-WED-WED SUBQ 07/27/18 21:00 08/26/18 20:59 07/29/18 20:49 Fentanyl Citrate (Sublimaze 100 mcg/2 mL) 25 mcg Q2H PRN IV Pain Scale (6-10) 07/30/18 20:15 08/06/18 20:14 07/31/18 17:33 Heparin Sodium (Porcine) (Heparin Sod 1000 units/ml 10ml) 2,000 unit ONCE IV 08/01/18 10:30 08/01/18 23:59 Linezolid (Zyvox) 600 mg EVERY 12 HOURS ORAL 07/27/18 21:00 08/06/18 20:59 07/31/18 20:48 Meropenem 500 mg/ Sodium Chloride 55 ml @ 110 mls/hr DAILY IVPB 07/27/18 12:00 08/06/18 11:59 07/31/18 09:41 Minoxidil (Loniten) 5 mg Q12HR NG 07/31/18 21:00 08/30/18 20:59 07/31/18 20:48 Norepinephrine Bitartrate 4 mg/ Dextrose 250 ml @ 0 mls/hr Q24H IV 07/25/18 16:30 08/24/18 16:29 07/26/18 21:28 Pantoprazole (Protonix) 40 mg Q12HR IVP 07/25/18 21:00 08/25/18 08:59 07/31/18 20:46 Sodium Chloride 1,000 ml @ 500 mls/hr Q2H PRN IVLG sbp<90 during hd 08/01/18 10:19 08/01/18 23:59 Andres Allan MD Aug 01, 2018 09:14
[2018-08-01] MEDS: Amiodarone 200mg tab ORAL SCH ×2 (09:38→20:40)
[2018-08-01] MEDS: Pantoprazole Inj IVP SCH ×2 (09:39→20:39)
[2018-08-01] MEDS: Meropenem 500 MG in NS 55 ML IVPB SCH (09:39)
[2018-08-01] MEDS ORDERED: Heparin Sod 1000 units/ml 10ml IV SCH (10:30)
--- NOTE | 2018-08-01 11:04 | NUR ---
CASE MANAGEMENT: REVIEW SI: A-FIB . SEPSIS . ESRD ON HD T 97.7 HR 53 RR 12 BP 91/48 SAT 100% MECH VENT FIO2 30 H/H 9.4/31.4 3.4 BUN 46 CR 3.6 IS: LEVOPHED GTT PROTONIX IV Q12HR PROCRIT SQ MWF ZYVOX PO Q12HR NGT FEEDING NEPRO @10ML/HR ICU STATUS DCP: PATIENT IS FROM [facility]
--- NOTE | 2018-08-01 12:12 | NUR ---
NURSE NOTES: Awake, no signs of acute distress noted.Tolerating well with NGT feeds.no residual noted. keep HOB elevated.
--- NOTE | 2018-08-01 13:10 | Diagnostic Imaging Report ---
APPROVED REPORT CPT Code: 66439 Present Symptoms Comments: Weakness BILATERAL UPPER EXTREMITY: Imaging reveals patency of the internal jugular, subclavian, axillary and brachial veins. The cephalic and basilic veins are also patent. Doppler indicates normal spontaneous flow within these venous segments, bilaterally. The mid brachial vein in left arm was not imaged due to PICC Line bandage. LEFT UPPER EXTREMITY: Velocities obtained from the fistula are within normal limits in the proximal and distal anastomotic site. The venous outflow is widely patent. There is no evidence of pseudo-aneurysm or abscess. Edema is noted in lower left arm.
--- NOTE | 2018-08-01 14:39 | General Surgery Progress Note ---
General Surgery-Progress Note Subjective Procedure Performed left subclavian central venous catheter insertion Additional Comments still intubated. looks more tired today. Objective Last 24 Hour Vital Signs Date Time Temp Pulse Resp B/P (MAP) Pulse Ox O2 Delivery O2 Flow Rate FiO2 08/01/18 13:00 60 12 121/40 (67) 100 08/01/18 12:45 30 08/01/18 12:42 58 16 30 08/01/18 12:00 55 08/01/18 12:00 97.9 55 12 116/16 (49) 100 08/01/18 12:00 Mechanical Ventilator Mechanical Ventilator Mechanical Ventilator 08/01/18 12:00 30 08/01/18 11:18 57 12 30 08/01/18 11:00 58 12 130/12 (51) 100 08/01/18 10:00 58 12 119/13 (48) 100 08/01/18 09:00 91/48 08/01/18 09:00 64 13 123/12 (49) 100 08/01/18 08:58 100 08/01/18 08:58 58 12 30 08/01/18 08:00 30 08/01/18 08:00 57 08/01/18 08:00 97.8 62 16 91/48 (62) 99 08/01/18 08:00 Mechanical Ventilator Mechanical Ventilator Mechanical Ventilator 08/01/18 07:00 53 12 123/12 (49) 100 08/01/18 06:58 55 12 30 08/01/18 06:00 52 12 128/30 (62) 99 08/01/18 05:12 54 12 30 08/01/18 05:00 56 12 121/17 (51) 100 08/01/18 04:00 30 08/01/18 04:00 97.7 61 13 116/19 (51) 100 08/01/18 04:00 61 08/01/18 04:00 Mechanical Ventilator Mechanical Ventilator Mechanical Ventilator 08/01/18 03:12 59 12 30 08/01/18 03:00 63 12 125/18 (53) 100 08/01/18 02:00 53 12 109/18 (48) 100 08/01/18 01:10 54 12 30 08/01/18 01:00 56 12 124/12 (49) 100 08/01/18 00:00 97.7 56 12 127/22 (57) 100 08/01/18 00:00 Mechanical Ventilator Mechanical Ventilator Mechanical Ventilator 08/01/18 00:00 30 07/31/18 23:13 53 12 30 07/31/18 23:00 52 12 120/22 (54) 100 07/31/18 22:00 53 12 118/22 (54) 100 07/31/18 21:05 63 12 30 07/31/18 21:00 56 12 125/24 (57) 100 07/31/18 20:48 121/36 07/31/18 20:00 98.5 54 12 121/36 (64) 100 07/31/18 20:00 30 07/31/18 20:00 Mechanical Ventilator Mechanical Ventilator Mechanical Ventilator 07/31/18 20:00 54 07/31/18 19:03 61 12 30 07/31/18 19:03 61 12 Mechanical Ventilator 30 07/31/18 19:00 57 14 127/49 (75) 100 07/31/18 18:00 57 14 127/27 (60) 100 07/31/18 17:06 63 12 30 07/31/18 17:00 65 14 84/67 (73) 100 07/31/18 16:30 102/52 07/31/18 16:00 98.6 62 14 121/12 (48) 100 07/31/18 16:00 30 07/31/18 16:00 Mechanical Ventilator Mechanical Ventilator Mechanical Ventilator 07/31/18 16:00 60 07/31/18 15:00 62 14 61/39 (46) 100 07/31/18 14:46 62 12 30 I&O Intake and Output 07/31/18 08/01/18 19:00 07:00 Intake Total 470 ml 360 ml Balance 470 ml 360 ml IV Total 110 ml Tube Feeding 360 ml 360 ml # Bowel Movements 1 Dressing: saturated Wound: other Drains: other Cardiovascular: RSR Respiratory: clear Abdomen: soft, non-tender, present bowel sounds Extremities: other Laboratory Tests Test 08/01/18 04:45 White Blood Count 5.4 K/UL (4.8-10.8) Red Blood Count 3.37 M/UL (4.20-5.40) L Hemoglobin 9.4 G/DL (12.0-16.0) L Hematocrit 31.4 % (37.0-47.0) L Mean Corpuscular Volume 93 FL (80-99) Mean Corpuscular Hemoglobin 27.8 PG (27.0-31.0) Mean Corpuscular Hemoglobin Concent 29.9 G/DL (32.0-36.0) L Red Cell Distribution Width 18.8 % (11.6-14.8) H Platelet Count 278 K/UL (150-450) Mean Platelet Volume 6.1 FL (6.5-10.1) L Neutrophils (%) (Auto) 74.6 % (45.0-75.0) Lymphocytes (%) (Auto) 9.2 % (20.0-45.0) L Monocytes (%) (Auto) 10.2 % (1.0-10.0) H Eosinophils (%) (Auto) 4.6 % (0.0-3.0) H Basophils (%) (Auto) 1.5 % (0.0-2.0) Sodium Level 141 MMOL/L (136-145) Potassium Level 3.4 MMOL/L (3.5-5.1) L Chloride Level 105 MMOL/L (98-107) Carbon Dioxide Level 25 MMOL/L (21-32) Anion Gap 11 mmol/L (5-15) Blood Urea Nitrogen 46 mg/dL (7-18) H Creatinine 3.6 MG/DL (0.55-1.30) H Estimat Glomerular Filtration Rate mL/min (>60) Glucose Level 113 MG/DL (74-106) H Calcium Level 8.7 MG/DL (8.5-10.1) Phosphorus Level 3.8 MG/DL (2.5-4.9) Total Bilirubin 0.3 MG/DL (0.2-1.0) Aspartate Amino Transf (AST/SGOT) 15 U/L (15-37) Alanine Aminotransferase (ALT/SGPT) 6 U/L (12-78) L Alkaline Phosphatase 99 U/L (46-116) Total Protein 6.1 G/DL (6.4-8.2) L Albumin 1.5 G/DL (3.4-5.0) L Globulin 4.6 g/dL Albumin/Globulin Ratio 0.3 (1.0-2.7) L Plan Problems: (1) Sepsis Assessment & Plan: acute decompensation hypotensive bradycardic respiratory decompensation requiring intubation and vent support - failed extubation improving leukocytosis resolved cont current ICU care and management may need trach if unable to wean off went with history of failed extubation thank you will follow with recs (2) Hypotension (3) Bradycardia (4) Altered mental status (5) Decubital ulcer Assessment & Plan: Patient with multiple pressure injuries where have been present since admission. Full thickness pressure injury to sacrum (L)(L)2.4cm x (W)4.4cm x (D)0.9cm, undermining 12-12 with tunneling 9-10 by 11.3cm. In close proximity to sacral wound on L buttocks purple ,indurated area with small area of slough measuring (L)0.6cm x (W)0.5cm noted. Arched surgical scar noted to L buttocks at site of tunneling. Resolving pressure injury noted to R ischium (L)3cm x (W)2cm. Wound bed epithelialized with maroon discoloration without induration periwound. Closed area with white pocket and purple margins noted to distal,carmela R tibia (L)6cm x (W)2.7cm Full thickness wound noted to distal/medial RLE (L)6.2cm x (W)3.8cm .Wound noted to have 95% mixed slough /necrosis ,marginal erythema. Wound malodorous. Wound posterior R tibia (L)4.7cm x (W) 3cm ,100% necrotic with marginal erythema. Dry eschar with marginal erythema (L)0.5cm x (W)0.7cm noted to medial R heel.Non-blanchable erythema noted to medial L malleolus. Dry brown eschar noted to medial L 1st malleolus (L)1.4cm x (W)1cm. L heel and lateral aspect boggy with non-blanchable erythema. Tx.Plan: Cleanse sacral wound with Saline.Loose pack with Hydrogel impregnated packing strip (Attention to tunneled area at 9-10).Cover with Optifoam drsg Daily and prn. Reposition at least every 2hours or as tolerated. Air Fluidized mattress. Off-load heels with pillow. Appreciate Podiatry and Vascular input Plan for anigo late by Vascular Reji Nails Aug 01, 2018 14:39
--- NOTE | 2018-08-01 15:24 | NUR ---
NURSE NOTES: Called pt's son Negro to inform him that H.D will be complete in an hour. Pt son requested notification. pt VSS. 111/38 91 99%, 16,
--- NOTE | 2018-08-01 17:53 | NUR ---
NURSE NOTES: Informed pt that son will try to stop by tomorrow. VSS. No c/o pain
--- NOTE | 2018-08-01 19:21 | Cardiology Progress Note ---
Assessment/Plan Assessment/Plan 1. Hypotension, possibly sepsis versus volume. 2. Paroxysmal episodes of atrial fibrillation history. 3. Bradycardia secondary to medications, amiodarone possibly. 4. Diabetes mellitus. 5. End-stage renal disease, on hemodialysis. 6. Lung collapse. 7. Respiratory failure, status post intubation. 8. Dysphagia. 9. History of dementia. 10. Pulm htn 11. Pleural effusion in and out afib tele reviewed echo personally reviewed lv function is hyperdynamic has bilat pleural effusion off vasopressor urine cx postive wean o ff vent may need to consider thoracentesis anemic s/p prbc tx ? source of anemia stool ob - one timde consider heparin if hgb stable Subjective ROS Limited/Unobtainable: Yes Subjective on the vent not verbal but communicates with head motion Objective Last 24 Hour Vital Signs Date Time Temp Pulse Resp B/P (MAP) Pulse Ox O2 Delivery O2 Flow Rate FiO2 08/01/18 19:05 101 13 30 08/01/18 19:00 102 14 107/24 (51) 99 08/01/18 18:00 102 14 104/30 (54) 99 08/01/18 17:21 58 12 30 08/01/18 17:00 102 14 83/36 (52) 99 08/01/18 16:30 95/32 08/01/18 16:00 110 08/01/18 16:00 97.9 101 16 102/47 (65) 98 08/01/18 16:00 Mechanical Ventilator Mechanical Ventilator Mechanical Ventilator 08/01/18 15:25 57 12 30 08/01/18 15:00 102 16 120/44 (69) 100 08/01/18 14:00 59 12 122/36 (64) 100 08/01/18 13:32 30 08/01/18 13:00 60 12 121/40 (67) 100 08/01/18 12:45 30 08/01/18 12:42 58 16 30 08/01/18 12:00 55 08/01/18 12:00 97.9 55 12 116/16 (49) 100 08/01/18 12:00 Mechanical Ventilator Mechanical Ventilator Mechanical Ventilator 08/01/18 12:00 30 08/01/18 11:18 57 12 30 08/01/18 11:00 58 12 130/12 (51) 100 08/01/18 10:00 58 12 119/13 (48) 100 08/01/18 09:00 91/48 08/01/18 09:00 64 13 123/12 (49) 100 08/01/18 08:58 100 08/01/18 08:58 58 12 30 08/01/18 08:00 30 08/01/18 08:00 57 08/01/18 08:00 97.8 62 16 91/48 (62) 99 08/01/18 08:00 Mechanical Ventilator Mechanical Ventilator Mechanical Ventilator 08/01/18 07:00 53 12 123/12 (49) 100 08/01/18 06:58 55 12 30 08/01/18 06:00 52 12 128/30 (62) 99 08/01/18 05:12 54 12 30 08/01/18 05:00 56 12 121/17 (51) 100 08/01/18 04:00 30 08/01/18 04:00 97.7 61 13 116/19 (51) 100 08/01/18 04:00 61 08/01/18 04:00 Mechanical Ventilator Mechanical Ventilator Mechanical Ventilator 08/01/18 03:12 59 12 30 08/01/18 03:00 63 12 125/18 (53) 100 08/01/18 02:00 53 12 109/18 (48) 100 08/01/18 01:10 54 12 30 08/01/18 01:00 56 12 124/12 (49) 100 08/01/18 00:00 97.7 56 12 127/22 (57) 100 08/01/18 00:00 Mechanical Ventilator Mechanical Ventilator Mechanical Ventilator 08/01/18 00:00 30 07/31/18 23:13 53 12 30 07/31/18 23:00 52 12 120/22 (54) 100 07/31/18 22:00 53 12 118/22 (54) 100 07/31/18 21:05 63 12 30 07/31/18 21:00 56 12 125/24 (57) 100 07/31/18 20:48 121/36 07/31/18 20:00 98.5 54 12 121/36 (64) 100 07/31/18 20:00 30 07/31/18 20:00 Mechanical Ventilator Mechanical Ventilator Mechanical Ventilator 07/31/18 20:00 54 General Appearance: no apparent distress, on vent, patient on isolation Neck: supple Cardiovascular: tachycardia, irregularly irregular Respiratory/Chest: rhonchi - bilaterally Abdomen: normal bowel sounds, non tender, soft Extremities: no swelling Intake and Output 07/31/18 08/01/18 19:00 07:00 Intake Total 470 ml 360 ml Balance 470 ml 360 ml IV Total 110 ml Tube Feeding 360 ml 360 ml # Bowel Movements 1 Laboratory Tests Test 08/01/18 04:45 White Blood Count 5.4 K/UL (4.8-10.8) Red Blood Count 3.37 M/UL (4.20-5.40) L Hemoglobin 9.4 G/DL (12.0-16.0) L Hematocrit 31.4 % (37.0-47.0) L Mean Corpuscular Volume 93 FL (80-99) Mean Corpuscular Hemoglobin 27.8 PG (27.0-31.0) Mean Corpuscular Hemoglobin Concent 29.9 G/DL (32.0-36.0) L Red Cell Distribution Width 18.8 % (11.6-14.8) H Platelet Count 278 K/UL (150-450) Mean Platelet Volume 6.1 FL (6.5-10.1) L Neutrophils (%) (Auto) 74.6 % (45.0-75.0) Lymphocytes (%) (Auto) 9.2 % (20.0-45.0) L Monocytes (%) (Auto) 10.2 % (1.0-10.0) H Eosinophils (%) (Auto) 4.6 % (0.0-3.0) H Basophils (%) (Auto) 1.5 % (0.0-2.0) Sodium Level 141 MMOL/L (136-145) Potassium Level 3.4 MMOL/L (3.5-5.1) L Chloride Level 105 MMOL/L (98-107) Carbon Dioxide Level 25 MMOL/L (21-32) Anion Gap 11 mmol/L (5-15) Blood Urea Nitrogen 46 mg/dL (7-18) H Creatinine 3.6 MG/DL (0.55-1.30) H Estimat Glomerular Filtration Rate mL/min (>60) Glucose Level 113 MG/DL (74-106) H Calcium Level 8.7 MG/DL (8.5-10.1) Phosphorus Level 3.8 MG/DL (2.5-4.9) Total Bilirubin 0.3 MG/DL (0.2-1.0) Aspartate Amino Transf (AST/SGOT) 15 U/L (15-37) Alanine Aminotransferase (ALT/SGPT) 6 U/L (12-78) L Alkaline Phosphatase 99 U/L (46-116) Total Protein 6.1 G/DL (6.4-8.2) L Albumin 1.5 G/DL (3.4-5.0) L Globulin 4.6 g/dL Albumin/Globulin Ratio 0.3 (1.0-2.7) L Angelo Butler MD Aug 01, 2018 19:21
--- NOTE | 2018-08-01 19:41 | NUR ---
HAND-OFF: Report given to VALERIE. PT IN NO ACUTE DISTRESS
--- NOTE | 2018-08-01 19:42 | NUR ---
NURSE NOTES: Endorsement received from BALDO Muse. Patient awake, opens eyes spontaneously, follows commands. Communicates by nodding or shaking head when asked with a yes or no question. Orally intubated with ET 7.5, 23 lipline. AC 12 Vt 500 PEEP 5 30% FiO2. With NGT at left nare, placement reconfirmed per auscultation. Ongoing Nepro 30 ml/hr. No residual. With right upper arm midline, with good backflow and no resistance when flushed. On SPR mattress. Bed locked and in low position. Head of bed elevated. Call light within reach.
--- NOTE | 2018-08-01 20:00 | NUR ---
NURSE NOTES: With bilateral soft wrist restraints, skin is warm and dry.
[2018-08-01] MEDS: Dyna-Hex 2% Top Sol 2oz TOPIC SCH (20:39)
[2018-08-01] MEDS: Epogen (for ESRD on dialysis) SUBQ SCH (20:50)
[2018-08-01] MEDS: Metoprolol Tartrate 12.5mg TAB ORAL SCH (21:00)
--- NOTE | 2018-08-01 22:00 | NUR ---
NURSE NOTES: Repositioned patient. Dressing at right upper arm midline changed aseptically.
[2018-08-02] VITALS (24 sets, daily range): BP systolic 95–136; BP diastolic 12–89
--- NOTE | 2018-08-02 | NUR ---
NURSE NOTES: Patient awake. Tolerating feeding.
--- NOTE | 2018-08-02 02:00 | NUR ---
NURSE NOTES: Still afib on the monitor. Secretions suctioned.
--- NOTE | 2018-08-02 03:47 | NUR ---
NURSE NOTES: Bed bath, change of linens, change of dressings done. Patient refused oral care at this time.
--- NOTE | 2018-08-02 07:26 | NUR ---
RESPIRATORY NOTE: Received pt on ETT size 7.5 @ 23cm lips line with current vent settings: AC 12-500ml-30%- peep of 5, saturates at 99-100%. No SOB or acute resp distress noted, vent is plugged into the red outlet, alarms are set and audible, ambu bag is at bedside. Will continue to monitor.
--- NOTE | 2018-08-02 07:28 | NUR ---
NURSE NOTES: HAND-OFF: Report given to BALDO Kyle.
--- NOTE | 2018-08-02 07:30 | NUR ---
NURSE NOTES: Received patient from BALDO Mac. Patient awake, alert and oriented, opens eyes spontaneously, able to follow commands. Orally intubated with ET 7.5, lip line 23cm, AC 12, TV 500, PEEP 5, FiO2 30%, O2 sat 100%. No acute distress noted. NGT at left nare, running nepro 30ml/hr. No residual. Head of bed elevated. Right upper arm midline intact and patent. On bilateral wrist soft restraints. Skin is intact, pulses present. Wound dressings placed, intact, clean and dry. Heels are offloaded. On weaning trials. Left AV shunt with bruit and thrill. noted with left arm edema. no signs of infection. Afib with rate of low 100s. Bed in lowest position. Bed alarm on. Call light within reach.
--- NOTE | 2018-08-02 08:15 | NUR ---
NURSE NOTES: Dr. Allan in facility, assessed the patient, updated on patient status. patient was weaned yesterday, lasted for 1hour on SIMV. On weaning determination daily. Last chest xray done was 07/30. acknowledged and will order chest xray.
--- NOTE | 2018-08-02 08:18 | NUR ---
RESPIRATORY NOTE: Placed pt on SIMV 8- 30% FiO2- peep of 5- PS 10, pt is tolerating well, no SOB or resp distress noted. Pt is alert and awake, understands the weaning plan. BALDO Kyle notified. Will continue to monitor closely.
--- NOTE | 2018-08-02 08:19 | Pulmonology Progress Note ---
Assessment/Plan Assessment/Plan IMPRESSION: 1. Hypotension. 2. Sepsis. 3. Atrial fibrillation. 4. Bradycardia. 5. Diabetes mellitus. 6. End-stage renal disease on dialysis. 7. Left lung collapse. Resolved 8. Respiratory failure. 9. Dysphagia. 10. Dementia. 11. Anemia 12. Pneumonia DISCUSSION: 1. Continue medications. 2. as needed Levophed. 3. status post bronchoscopy 4. Central access 5. Use broad-spectrum antibiotics. 6. continue weaning attempts May need repeat bronchoscopy as she has persistent consolidation LLL WIll check CXR today Andres Allan M.D. Subjective Interval Events: Failed wean yesterday Constitutional: Reports: no symptoms HEENT: Repors: no symptoms Respiratory: Reports: no symptoms Cardiovascular: Reports: no symptoms Gastrointestinal/Abdominal: Reports: no symptoms Genitourinary: Reports: no symptoms Allergies: Coded Allergies: No Known Allergies (Unverified , 07/25/18) Objective Last 24 Hour Vital Signs Date Time Temp Pulse Resp B/P (MAP) Pulse Ox O2 Delivery O2 Flow Rate FiO2 08/02/18 07:26 91 12 30 08/02/18 06:00 89 14 102/29 (53) 100 08/02/18 05:12 84 12 30 08/02/18 05:00 97.9 102 14 98/45 (62) 100 08/02/18 04:00 84 08/02/18 04:00 30 08/02/18 04:00 102 14 134/45 (74) 100 08/02/18 04:00 Mechanical Ventilator Mechanical Ventilator Mechanical Ventilator 08/02/18 03:27 98 12 30 08/02/18 03:00 98 12 134/48 (76) 100 08/02/18 02:00 102 12 112/46 (68) 100 08/02/18 01:00 101 12 115/41 (65) 100 08/02/18 00:56 96 13 30 08/02/18 00:00 30 08/02/18 00:00 97.9 95 15 114/42 (66) 100 08/02/18 00:00 Mechanical Ventilator Mechanical Ventilator Mechanical Ventilator 08/02/18 00:00 101 08/01/18 23:20 99 14 30 08/01/18 23:00 104 15 102/36 (58) 100 08/01/18 22:00 103 15 102/36 (58) 100 08/01/18 21:00 102 90/35 08/01/18 21:00 90/35 08/01/18 21:00 103 14 101/33 (55) 100 08/01/18 20:48 99 12 30 08/01/18 20:00 97.8 103 15 94/60 (71) 100 08/01/18 20:00 Mechanical Ventilator Mechanical Ventilator Mechanical Ventilator 08/01/18 20:00 101 08/01/18 20:00 30 08/01/18 19:05 101 13 30 08/01/18 19:00 102 14 107/24 (51) 99 08/01/18 18:00 102 14 104/30 (54) 99 08/01/18 17:21 58 12 30 08/01/18 17:00 102 14 83/36 (52) 99 08/01/18 16:30 95/32 08/01/18 16:00 110 08/01/18 16:00 97.9 101 16 102/47 (65) 98 08/01/18 16:00 Mechanical Ventilator Mechanical Ventilator Mechanical Ventilator 08/01/18 15:25 57 12 30 08/01/18 15:00 102 16 120/44 (69) 100 08/01/18 14:00 59 12 122/36 (64) 100 08/01/18 13:32 30 08/01/18 13:00 60 12 121/40 (67) 100 08/01/18 12:45 30 08/01/18 12:42 58 16 30 08/01/18 12:00 55 08/01/18 12:00 97.9 55 12 116/16 (49) 100 08/01/18 12:00 Mechanical Ventilator Mechanical Ventilator Mechanical Ventilator 08/01/18 12:00 30 08/01/18 11:18 57 12 30 08/01/18 11:00 58 12 130/12 (51) 100 08/01/18 10:00 58 12 119/13 (48) 100 08/01/18 09:00 91/48 08/01/18 09:00 64 13 123/12 (49) 100 08/01/18 08:58 100 08/01/18 08:58 58 12 30 Intake and Output 08/01/18 08/02/18 19:00 07:00 Intake Total 2620 ml 440 ml Balance 2620 ml 440 ml Free Water 150 ml 50 ml IV Total 110 ml Tube Feeding 360 ml 330 ml Hemodialysis 2000 ml Other 60 ml # Voids 1 # Bowel Movements 1 1 General Appearance: no acute distress HEENT: normocephalic Respiratory/Chest: chest wall non-tender, decreased breath sounds Cardiovascular: normal peripheral pulses, normal rate Abdomen: normal bowel sounds Current Medications Medications (Trade) Dose Ordered Sig/Renetta Route PRN Reason Start Time Stop Time Status Last Admin Dose Admin Amiodarone HCl (Cordarone) 200 mg EVERY 12 HOURS ORAL 07/26/18 21:00 08/25/18 20:59 08/01/18 20:40 Chlorhexidine Gluconate (Rylie-Hex 2%) 1 applic DAILY@2000 TOPIC 07/26/18 20:00 08/25/18 19:59 08/01/18 20:39 Epoetin Paul (Procrit (for ESRD on dialysis)) 10,000 units WED-WED-WED SUBQ 07/27/18 21:00 08/26/18 20:59 08/01/18 20:50 Fentanyl Citrate (Sublimaze 100 mcg/2 mL) 25 mcg Q2H PRN IV Pain Scale (6-10) 07/30/18 20:15 08/06/18 20:14 07/31/18 17:33 Linezolid (Zyvox) 600 mg EVERY 12 HOURS ORAL 07/27/18 21:00 08/06/18 20:59 08/01/18 20:39 Meropenem 500 mg/ Sodium Chloride 55 ml @ 110 mls/hr DAILY IVPB 07/27/18 12:00 08/06/18 11:59 08/01/18 09:39 Metoprolol Tartrate (Lopressor) 12.5 mg Q12HR ORAL 08/01/18 21:00 08/31/18 20:59 Minoxidil (Loniten) 5 mg Q12HR NG 07/31/18 21:00 08/30/18 20:59 07/31/18 20:48 Norepinephrine Bitartrate 4 mg/ Dextrose 250 ml @ 0 mls/hr Q24H IV 07/25/18 16:30 08/24/18 16:29 07/26/18 21:28 Pantoprazole (Protonix) 40 mg Q12HR IVP 07/25/18 21:00 08/25/18 08:59 08/01/18 20:39 Andres Allan MD Aug 02, 2018 08:19
[2018-08-02] MEDS: Metoprolol Tartrate 12.5mg TAB ORAL SCH ×2 (08:49→21:03)
[2018-08-02] MEDS: Amiodarone 200mg tab ORAL SCH ×2 (08:51→21:03)
[2018-08-02] MEDS: Pantoprazole Inj IVP SCH ×2 (08:51→21:01)
[2018-08-02] MEDS: Minoxidil 2.5mg tab NG SCH ×2 (08:52→21:03)
--- NOTE | 2018-08-02 09:00 | NUR ---
NURSE NOTES: Patient not in respiratory distress, tolerating weaning. On SIMV rate 8, pressure support 10, O2 saturation 100%, respiration rate 19, even and unlabored. Will continue to monitor.
--- NOTE | 2018-08-02 09:37 | Diagnostic Imaging Report ---
Indication: Abnormal chest sounds Technique: One view of the chest Comparison: 07/30/2018 Findings: Stable satisfactory positions of endotracheal and nasogastric tubes. Right-sided pleural effusion is stable or slightly increased. Left-sided pleural effusion appears improved, and there is improved aeration of the left lung overall as compared to prior study. Interstitial congestion in both lungs is probably unchanged Impression: Stable slightly increased right-sided pleural effusion Improved left pleural effusion and overall improved left lung aeration, over 3 days Persistent interstitial edema
[2018-08-02] MEDS: Meropenem 500 MG in NS 55 ML IVPB SCH (10:08)
--- NOTE | 2018-08-02 10:29 | Infectious Diseases Prog Note ---
"Assessment/Plan Assessment/Plan antibiotics : linezolid, meropenem A 1. VRE | e.coli UTI 2. shock 3. leucocytosis resolved 4. respiratory failure 5. renal failure 6. 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 pleural effusion P 1. continue linezolid, meropenem 2. sputum culture 3. will follow up cultures Subjective ROS Limited/Unobtainable: Yes Allergies: Coded Allergies: No Known Allergies (Unverified , 07/25/18) Objective Vital Signs Last 24 Hour Vital Signs Date Time Temp Pulse Resp B/P (MAP) Pulse Ox O2 Delivery O2 Flow Rate FiO2 08/02/18 08:49 114 97/60 08/02/18 08:38 95 20 30 08/02/18 08:37 97 08/02/18 08:18 99 16 30 08/02/18 08:00 30 08/02/18 07:26 91 12 30 08/02/18 06:00 89 14 102/29 (53) 100 08/02/18 05:12 84 12 30 08/02/18 05:00 97.9 102 14 98/45 (62) 100 08/02/18 04:00 84 08/02/18 04:00 30 08/02/18 04:00 102 14 134/45 (74) 100 08/02/18 04:00 Mechanical Ventilator Mechanical Ventilator Mechanical Ventilator 08/02/18 03:27 98 12 30 08/02/18 03:00 98 12 134/48 (76) 100 08/02/18 02:00 102 12 112/46 (68) 100 08/02/18 01:00 101 12 115/41 (65) 100 08/02/18 00:56 96 13 30 08/02/18 00:00 30 08/02/18 00:00 97.9 95 15 114/42 (66) 100 08/02/18 00:00 Mechanical Ventilator Mechanical Ventilator Mechanical Ventilator 08/02/18 00:00 101 08/01/18 23:20 99 14 30 08/01/18 23:00 104 15 102/36 (58) 100 08/01/18 22:00 103 15 102/36 (58) 100 08/01/18 21:00 102 90/35 08/01/18 21:00 90/35 08/01/18 21:00 103 14 101/33 (55) 100 08/01/18 20:48 99 12 30 08/01/18 20:00 97.8 103 15 94/60 (71) 100 08/01/18 20:00 Mechanical Ventilator Mechanical Ventilator Mechanical Ventilator 08/01/18 20:00 101 08/01/18 20:00 30 08/01/18 19:05 101 13 30 08/01/18 19:00 102 14 107/24 (51) 99 08/01/18 18:00 102 14 104/30 (54) 99 08/01/18 17:21 58 12 30 08/01/18 17:00 102 14 83/36 (52) 99 08/01/18 16:30 95/32 08/01/18 16:00 110 08/01/18 16:00 97.9 101 16 102/47 (65) 98 08/01/18 16:00 Mechanical Ventilator Mechanical Ventilator Mechanical Ventilator 08/01/18 15:25 57 12 30 08/01/18 15:00 102 16 120/44 (69) 100 08/01/18 14:00 59 12 122/36 (64) 100 08/01/18 13:32 30 08/01/18 13:00 60 12 121/40 (67) 100 08/01/18 12:45 30 08/01/18 12:42 58 16 30 08/01/18 12:00 55 08/01/18 12:00 97.9 55 12 116/16 (49) 100 08/01/18 12:00 Mechanical Ventilator Mechanical Ventilator Mechanical Ventilator 08/01/18 12:00 30 08/01/18 11:18 57 12 30 08/01/18 11:00 58 12 130/12 (51) 100 Height (Feet): 5 Height (Inches): 2.00 Weight (Pounds): 123 HEENT: other - intubated Respiratory/Chest: lungs clear Cardiovascular: normal rate, regular rhythm, no gallop/murmur Abdomen: soft, non tender Extremities: no edema, other - right arm PICC Current Medications Medications (Trade) Dose Ordered Sig/Renetta Route PRN Reason Start Time Stop Time Status Last Admin Dose Admin Amiodarone HCl (Cordarone) 200 mg EVERY 12 HOURS ORAL 07/26/18 21:00 08/25/18 20:59 08/02/18 08:51 Chlorhexidine Gluconate (Rylie-Hex 2%) 1 applic DAILY@2000 TOPIC 07/26/18 20:00 08/25/18 19:59 08/01/18 20:39 Epoetin Paul (Procrit (for ESRD on dialysis)) 10,000 units WED-WED-WED SUBQ 07/27/18 21:00 08/26/18 20:59 08/01/18 20:50 Fentanyl Citrate (Sublimaze 100 mcg/2 mL) 25 mcg Q2H PRN IV Pain Scale (6-10) 07/30/18 20:15 08/06/18 20:14 07/31/18 17:33 Linezolid (Zyvox) 600 mg EVERY 12 HOURS ORAL 07/27/18 21:00 08/06/18 20:59 08/02/18 08:50 Meropenem 500 mg/ Sodium Chloride 55 ml @ 110 mls/hr DAILY IVPB 07/27/18 12:00 08/06/18 11:59 08/02/18 10:08 Metoprolol Tartrate (Lopressor) 12.5 mg Q12HR ORAL 08/01/18 21:00 08/31/18 20:59 08/02/18 08:49 Minoxidil (Loniten) 5 mg Q12HR NG 07/31/18 21:00 08/30/18 20:59 07/31/18 20:48 Norepinephrine Bitartrate 4 mg/ Dextrose 250 ml @ 0 mls/hr Q24H IV 07/25/18 16:30 08/24/18 16:29 07/26/18 21:28 Pantoprazole (Protonix) 40 mg Q12HR IVP 07/25/18 21:00 08/25/18 08:59 08/02/18 08:51 Omid Morfin MD Aug 02, 2018 10:29"
--- NOTE | 2018-08-02 10:46 | NUR ---
RD ASSESSMENT & RECOMMENDATIONS SEE CARE ACTIVITY FOR COMPLETE ASSESSMENT DAILY ESTIMATED NEEDS: Needs based on Critical care+ Advanced Wounds + ESRD/ 60kg 22-30 kcals/kg 5999-5787 total kcals 1.5-2.0 g protein/kg 90-120g g total protein Fluid per MD NUTRITION DIAGNOSIS: * Swallowing difficulty R/T respiratory status as evidenced by pt orally intubated, now on NGT feeds. (UPDATED) * Increased kcal/prot needs R/T wound healing as evidenced by pt admitted w/ multiple wounds including stage 4 sacral wound, refer to WC eval. * Altered nutrition related lab values R/T ESRD dx, clinical condition as evidenced by elev creat (4.6-> 3.6), low Na (130-> wnl), elev BNP >99319, low BP, pressor held at this time. CURRENT TF: Nepro @30ml/hr PO DIET RECOMMENDATIONS: TRUST MANAGER evaluation post extubation, prior to PO diet -> CCHO MED, RENAL ENTERAL NUTRITION RECOMMENDATIONS: Nepro @ 35ml/hr x 24 hrs + Prosource 1pkt TID to provide 840ml, 1512kcal, 68g + 33g prot, 611ml free water WITH HEMODYNAMIC STABILITY 1. Initiate Nepro @ 10ml/hr x 8 hrs, advance 10mlq 6-8 hrs as tolerated to goal rate 2. Add Prosource 1 pkt TID to meet increased prot needs WITHOUT HEMODYNAMIC STABILITY: REC TROPHIC FEEDS OF NEPRO @ 10ML/HR X 24 HRS ADDITIONAL RECOMMENDATIONS: * Calibrated bedscale wt for accurate CBW * Monitor HD stability- NE held at this time * Wound healing- Nephrovite x 1, Afshin 1pkt BID * Monitor Renal fxn and lytes * SSI w/ TF- h/o DM * TRUST MANAGER eval post extubation
--- NOTE | 2018-08-02 12:00 | NUR ---
NURSE NOTES: Patient was repositioned, oral care provided. patient kept clean. No distress noted. Patient on bilateral wrist soft restraints. Skin intact, warm and dry.
--- NOTE | 2018-08-02 12:40 | NUR ---
NURSE NOTES: Sputum was collected by RT, will send to lab.
--- NOTE | 2018-08-02 14:04 | NUR ---
NURSE NOTES: Dr. He in facility, saw and assessed patient. informed of patient without PRN medications for pain, ordered tylenol prn, agreed to discontinued levophed order. Order noted and carried out.
--- NOTE | 2018-08-02 14:14 | Nephrology Progress Note ---
Assessment/Plan Assessment Seee below Plan MOF, improving slowly. Sepsis due to infected diabetic ulcers, R/O Osteo. On IV Abx. Called ID, Vasc. Sx, Podiatry. Septic Shock pressors PRN ESRD HD q MWF Anemia of CKD , DARRYN high dose. Transfuse PRN. Resp Failure - Vent per Pul. Trying to wean. REGINALDO Allan. 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 with LAE. LVEF 65% . Anticoagulate when stable. REGINALDO Butler. PVD. Needs Angio. REGINALDO Sauceda. Subjective Subjective Awake + alert. No c/o Objective Objective Last 24 Hour Vital Signs Date Time Temp Pulse Resp B/P (MAP) Pulse Ox O2 Delivery O2 Flow Rate FiO2 08/02/18 12:40 30 08/02/18 12:32 98 12 30 08/02/18 12:00 101 08/02/18 12:00 99.0 97 20 118/89 (99) 100 08/02/18 12:00 Mechanical Ventilator Mechanical Ventilator Mechanical Ventilator 08/02/18 11:00 94 18 116/13 (47) 100 08/02/18 10:34 86 14 30 08/02/18 10:00 93 16 116/19 (51) 100 08/02/18 09:00 100 19 102/37 (58) 100 08/02/18 08:49 114 97/60 08/02/18 08:38 95 20 30 08/02/18 08:37 97 08/02/18 08:18 99 16 30 08/02/18 08:00 98.0 102 19 109/48 (68) 99 08/02/18 08:00 105 08/02/18 08:00 Mechanical Ventilator Mechanical Ventilator Mechanical Ventilator 08/02/18 08:00 30 08/02/18 07:26 91 12 30 08/02/18 07:00 95 12 97/60 (72) 100 08/02/18 06:00 89 14 102/29 (53) 100 08/02/18 05:12 84 12 30 08/02/18 05:00 97.9 102 14 98/45 (62) 100 08/02/18 04:00 84 08/02/18 04:00 30 08/02/18 04:00 102 14 134/45 (74) 100 08/02/18 04:00 Mechanical Ventilator Mechanical Ventilator Mechanical Ventilator 08/02/18 03:27 98 12 30 08/02/18 03:00 98 12 134/48 (76) 100 08/02/18 02:00 102 12 112/46 (68) 100 08/02/18 01:00 101 12 115/41 (65) 100 08/02/18 00:56 96 13 30 08/02/18 00:00 30 08/02/18 00:00 97.9 95 15 114/42 (66) 100 08/02/18 00:00 Mechanical Ventilator Mechanical Ventilator Mechanical Ventilator 08/02/18 00:00 101 08/01/18 23:20 99 14 30 08/01/18 23:00 104 15 102/36 (58) 100 08/01/18 22:00 103 15 102/36 (58) 100 08/01/18 21:00 102 90/35 08/01/18 21:00 90/35 08/01/18 21:00 103 14 101/33 (55) 100 08/01/18 20:48 99 12 30 08/01/18 20:00 97.8 103 15 94/60 (71) 100 08/01/18 20:00 Mechanical Ventilator Mechanical Ventilator Mechanical Ventilator 08/01/18 20:00 101 08/01/18 20:00 30 08/01/18 19:05 101 13 30 08/01/18 19:00 102 14 107/24 (51) 99 08/01/18 18:00 102 14 104/30 (54) 99 08/01/18 17:21 58 12 30 08/01/18 17:00 102 14 83/36 (52) 99 08/01/18 16:30 95/32 08/01/18 16:00 110 08/01/18 16:00 97.9 101 16 102/47 (65) 98 08/01/18 16:00 Mechanical Ventilator Mechanical Ventilator Mechanical Ventilator 08/01/18 15:25 57 12 30 08/01/18 15:00 102 16 120/44 (69) 100 Intake and Output 08/01/18 08/02/18 19:00 07:00 Intake Total 2620 ml 470 ml Balance 2620 ml 470 ml Free Water 150 ml 50 ml IV Total 110 ml Tube Feeding 360 ml 360 ml Hemodialysis 2000 ml Other 60 ml # Voids 1 # Bowel Movements 1 1 Height (Feet): 5 Height (Inches): 2.00 Weight (Pounds): 123 Objective Intubated, On vent. BP measured more accurately with a smaller cuff placed on rt. FA. Cv IRR/IRR Lungs B ronchi. Abd SNT. BS + E Rt. foot diabetic ulcers with pus Chase He MD Aug 02, 2018 14:14
--- NOTE | 2018-08-02 14:30 | NUR ---
NURSE NOTES: Spoke with Tabitha from [facility], patient confirmed for tomorrow HD.
--- NOTE | 2018-08-02 16:00 | NUR ---
NURSE NOTES: Patient's son at bedside, updated on patient's status. Patient with no acute distress. Respirations even and unlabored. Repositioned patient.
--- NOTE | 2018-08-02 17:55 | NUR ---
CASE MANAGEMENT: REVIEW SI: A-FIB . SEPSIS . ESRD ON HD . ORALLY INTUBATED T 99.0 HR 101 RR 20 BP 118/89 SAT 100% MECH VENT FIO2 30 IS: MEROPENEM IV QD AMIODARONE PO Q12HR PROTONIX IV Q12HR LOPRESSOR PO Q12HR NGT FEEDING NEPRO @10ML/HR ICU STATUS DCP: PATIENT IS FROM [facility]
--- NOTE | 2018-08-02 19:30 | NUR ---
HAND-OFF: Report given to BALDO Noriega.
--- NOTE | 2018-08-02 19:35 | NUR ---
NURSE NOTES: Recvd.on a vent.orally intubated.See settings.Lungs few scatt.Rh.Diminished BS at bases.P.Ox-100%.Bila.soft wrist restraints on,Prev.self-injury.See V/S.Scope At-Fib. aware.NGT-Feeding in progress.AVF (L)upper arm pos.thrill and bruit.Renetta for poss. HD in am.Pos.chg.Suctioned.
--- NOTE | 2018-08-02 20:03 | Cardiology Progress Note ---
Assessment/Plan Assessment/Plan 1. Hypotension, possibly sepsis versus volume. 2. Paroxysmal episodes of atrial fibrillation history. 3. Bradycardia secondary to medications, amiodarone possibly. 4. Diabetes mellitus. 5. End-stage renal disease, on hemodialysis. 6. Lung collapse. 7. Respiratory failure, status post intubation. 8. Dysphagia. 9. History of dementia. 10. Pulm htn 11. Pleural effusion in and out afib still despite bid amiod will increase to 400 mh bid watchj for devonte tele reviewed echo personally reviewed lv function is hyperdynamic has bilat pleural effusion off vasopressor urine cx postive wean o ff vent may need to consider thoracentesis anemic s/p prbc tx ? source of anemia stool ob - one time consider heparin if hgb stable repeat stool ob and if still neg will start on heparin Subjective ROS Limited/Unobtainable: Yes Subjective on the vent not verbal but communicates with head motion Objective Last 24 Hour Vital Signs Date Time Temp Pulse Resp B/P (MAP) Pulse Ox O2 Delivery O2 Flow Rate FiO2 08/02/18 19:19 93 12 30 08/02/18 16:30 88 12 30 08/02/18 14:40 88 12 30 08/02/18 12:40 30 08/02/18 12:32 98 12 30 08/02/18 12:00 101 08/02/18 12:00 99.0 97 20 118/89 (99) 100 08/02/18 12:00 Mechanical Ventilator Mechanical Ventilator Mechanical Ventilator 08/02/18 11:00 94 18 116/13 (47) 100 08/02/18 10:34 86 14 30 08/02/18 10:00 93 16 116/19 (51) 100 08/02/18 09:00 100 19 102/37 (58) 100 08/02/18 08:49 114 97/60 08/02/18 08:38 95 20 30 08/02/18 08:37 97 08/02/18 08:18 99 16 30 08/02/18 08:00 98.0 102 19 109/48 (68) 99 08/02/18 08:00 105 08/02/18 08:00 Mechanical Ventilator Mechanical Ventilator Mechanical Ventilator 08/02/18 08:00 30 08/02/18 07:26 91 12 30 08/02/18 07:00 95 12 97/60 (72) 100 08/02/18 06:00 89 14 102/29 (53) 100 08/02/18 05:12 84 12 30 08/02/18 05:00 97.9 102 14 98/45 (62) 100 08/02/18 04:00 84 08/02/18 04:00 30 08/02/18 04:00 102 14 134/45 (74) 100 08/02/18 04:00 Mechanical Ventilator Mechanical Ventilator Mechanical Ventilator 08/02/18 03:27 98 12 30 08/02/18 03:00 98 12 134/48 (76) 100 08/02/18 02:00 102 12 112/46 (68) 100 08/02/18 01:00 101 12 115/41 (65) 100 08/02/18 00:56 96 13 30 08/02/18 00:00 30 08/02/18 00:00 97.9 95 15 114/42 (66) 100 08/02/18 00:00 Mechanical Ventilator Mechanical Ventilator Mechanical Ventilator 08/02/18 00:00 101 08/01/18 23:20 99 14 30 08/01/18 23:00 104 15 102/36 (58) 100 08/01/18 22:00 103 15 102/36 (58) 100 08/01/18 21:00 102 90/35 08/01/18 21:00 90/35 08/01/18 21:00 103 14 101/33 (55) 100 08/01/18 20:48 99 12 30 General Appearance: on vent, patient on isolation Neck: supple Cardiovascular: irregularly irregular Respiratory/Chest: lungs clear, normal breath sounds Abdomen: non tender, soft Extremities: no swelling Intake and Output 08/01/18 08/02/18 19:00 07:00 Intake Total 2620 ml 470 ml Balance 2620 ml 470 ml Free Water 150 ml 50 ml IV Total 110 ml Tube Feeding 360 ml 360 ml Hemodialysis 2000 ml Other 60 ml # Voids 1 # Bowel Movements 1 1 Angelo Butler MD Aug 02, 2018 20:03
[2018-08-02] MEDS: Dyna-Hex 2% Top Sol 2oz TOPIC SCH (20:09)
--- NOTE | 2018-08-02 21:32 | NUR ---
NURSE NOTES: HS care rendered.Backrub with Lotion.Pos.to comfort.Suctioned.NS lavaged.Kenneth.4hrs of weaning today.Back on AC mode at [facility].Due medicare coordinator.
--- NOTE | 2018-08-02 22:00 | NUR ---
NURSE NOTES: Scope rhythm converted to sinus.
[2018-08-02] MEDS ORDERED: NS 275ml ONE (22:55)
[2018-08-03] VITALS (24 sets, daily range): BP systolic 70–161; BP diastolic 10–92
--- NOTE | 2018-08-03 00:10 | NUR ---
NURSE NOTES: Repositioned,Suctioned.Kenneth.vent settings.See V/S.Scope pattern remain Sinus.
--- NOTE | 2018-08-03 02:00 | NUR ---
NURSE NOTES: Pos. chg.Suctioned.Status same.No Distress.
--- NOTE | 2018-08-03 02:15 | Consultation ---
DATE OF CONSULTATION: 07/29/2018 VASCULAR SURGERY CONSULTING PHYSICIAN: Heri Sauceda M.D. REFERRING PHYSICIAN: Ольга Aly M.D. REASON FOR CONSULTATION: Lower extremity wounds, ulceration, and PAD. HISTORY OF PRESENT COMPLAINT: This is a 78-year-old female, who is currently in the intensive care unit at [facility] with respiratory failure, on a ventilator. The patient has a history of end-stage renal failure, on hemodialysis, was found to have right bilateral leg wound and necrosis. Vascular Surgery is consulted for further evaluation. The patient is currently awake on a ventilator and follows simple commands, but all the history is obtained from the medical records. PAST MEDICAL HISTORY: As above. History of arrhythmia, end-stage renal failure, on hemodialysis, hypertension, and PAD. MEDICATIONS: See attached MAR. ALLERGIES: No known drug allergies. SOCIAL HISTORY: Unobtainable. FAMILY HISTORY: Unobtainable. SYSTEM REVIEW: Unobtainable. She is on the ventilator. PHYSICAL EXAMINATION: VITAL SIGNS: The patient is afebrile at 97, heart rate 70, blood pressure 130/70, and respirations 16. She has bilateral arm edema. She has palpable radial pulses. LUNGS: Rhonchi bilaterally. On the ventilator. HEART: Regular rate and rhythm. ABDOMEN: Soft and nontender. EXTREMITIES: The patient has palpable femoral pulses and palpable popliteal pulses. Absent dorsalis pedis and posterior tibial pulses bilaterally. Feet are warm. She has a right medial ankle wound, which is deep with necrosis. She has a left ankle heel decubitus necrosis with no significant infection. IMPRESSION: 1. 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 Right ankle wound appears to be deeper. 2. Respiratory failure, on a ventilator. 3. End-stage renal failure, on hemodialysis. 4. History of arrhythmia. PLAN: 1. Medical optimization progress. Weaning trial. If she fails weaning, she will need a tracheostomy and a feeding gastrostomy tube. 2. Optimize nutrition. Ankle wound care by Podiatry service. She will need I and D and wound VAC. Antibiotics per Infectious Disease Service. Offload the legs with decubitus precautions and anticoagulants for her arrhythmia. Once more medically optimized and cleared and out of intensive care unit, we will schedule the patient for selective leg angiography to assess for percutaneous revascularization to improve the flow and wound healing. The above was discussed at length with the primary medical service and intensive care unit nurse. Heri Sauceda M.D. DR: ISMAEL JOB#: [id number] CC: Heri Sauceda M.D.; Fax#: [phone] ОЛЬГА ALY M.D. ; FAX#: [phone]
--- NOTE | 2018-08-03 04:10 | NUR ---
NURSE NOTES: Inct.of soft brownish stool.Carola Mccall chg.Blood drawn for cbc/cmp and phos.spec.to Lab.Suctioned.Tolerated vent.settings.Weaning trial again this am.See V/S.Scope pattern remain sinus.No CP.Renetta.for poss.HD this am.AVF pos.thrill and bruit.See I/O.
[2018-08-03 05:26] LABS: BASOPHILS % (AUTO) 0.7 % (0.0-2.0); EOSINOPHILS % (AUTO) 4.8 % (0.0-3.0); HEMATOCRIT 30.7 % (37.0-47.0); HEMOGLOBIN 9.3 G/DL (12.0-16.0); MEAN CORPUSCULAR VOLUME 94 FL (80-99); MONOCYTES % (AUTO) 10.7 % (1.0-10.0); NEUTROPHILS % (AUTO) 65.8 % (45.0-75.0); PLATELET COUNT 243 K/UL (150-450); RED BLOOD COUNT 3.26 M/UL (4.20-5.40); RED CELL DISTRIBUTION WIDTH 18.8 % (11.6-14.8); WHITE BLOOD COUNT 4.6 K/UL (4.8-10.8)
[2018-08-03 06:14] LABS: ALANINE AMINOTRANSFERASE < 6 U/L (12-78); ALBUMIN 1.3 G/DL (3.4-5.0); ALBUMIN/GLOBULIN RATIO 0.3 (1.0-2.7); ALKALINE PHOSPHATASE 70 U/L (46-116); ANION GAP 9 mmol/L (5-15); ASPARTATE AMINO TRANSFERASE 14 U/L (15-37); BILIRUBIN,TOTAL 0.3 MG/DL (0.2-1.0); BLOOD UREA NITROGEN 49 mg/dL (7-18); CALCIUM 8.4 MG/DL (8.5-10.1); CARBON DIOXIDE 29 MMOL/L (21-32); CHLORIDE 104 MMOL/L (98-107); CREATININE 3.4 MG/DL (0.55-1.30); PHOSPHORUS 2.9 MG/DL (2.5-4.9); POTASSIUM 3.3 MMOL/L (3.5-5.1); SODIUM 142 MMOL/L (136-145)
--- NOTE | 2018-08-03 07:01 | NUR ---
Received Patient on ACVC RR 12, VT 500, Fio2 30%, PEEP +5. Patient intubated with a 7.5 ETT at 23cm at the lip. Bilateral diminished clear breath sounds heard throughout both lung ross. Suctioned thin white/ clear secretions. Patient is alert and awake and follows commands. Vent plugged into red outlet. Alarms on and audible. Will continue to monitor throughout the day.
--- NOTE | 2018-08-03 07:04 | Pulmonology Progress Note ---
Assessment/Plan Assessment/Plan IMPRESSION: 1. Hypotension. 2. Sepsis. 3. Atrial fibrillation. 4. Bradycardia. 5. Diabetes mellitus. 6. End-stage renal disease on dialysis. 7. Left lung collapse. Resolved 8. Respiratory failure. 9. Dysphagia. 10. Dementia. 11. Anemia 12. Pneumonia DISCUSSION: 1. Continue medications. 2. CXR improved 3. status post bronchoscopy 4. Central access 5. Use broad-spectrum antibiotics. 6. continue weaning attempts Continue weaning Andres Allan M.D. Subjective Interval Events: Remains intubated; CXR is better Constitutional: Reports: no symptoms HEENT: Repors: no symptoms Respiratory: Reports: no symptoms Cardiovascular: Reports: no symptoms Gastrointestinal/Abdominal: Reports: no symptoms Allergies: Coded Allergies: No Known Allergies (Unverified , 07/25/18) Objective Last 24 Hour Vital Signs Date Time Temp Pulse Resp B/P (MAP) Pulse Ox O2 Delivery O2 Flow Rate FiO2 08/03/18 06:00 65 12 112/21 (51) 100 08/03/18 05:01 63 12 30 08/03/18 05:00 64 14 98/59 (72) 100 08/03/18 04:00 98.4 61 13 140/16 (57) 100 08/03/18 04:00 Mechanical Ventilator Mechanical Ventilator Mechanical Ventilator 08/03/18 04:00 30 08/03/18 04:00 61 08/03/18 03:06 58 12 30 08/03/18 03:00 58 12 137/17 (57) 100 08/03/18 02:00 58 12 131/10 (50) 100 08/03/18 01:10 58 12 30 08/03/18 01:00 58 12 126/21 (56) 100 08/03/18 00:00 98.3 58 12 90/73 (79) 100 08/03/18 00:00 30 08/03/18 00:00 Mechanical Ventilator Mechanical Ventilator Mechanical Ventilator 08/03/18 00:00 58 08/02/18 23:15 58 12 30 08/02/18 23:00 59 12 123/16 (51) 100 08/02/18 22:00 60 12 128/22 (57) 100 08/02/18 21:24 64 13 30 08/02/18 21:03 104 118/63 08/02/18 21:03 118/63 08/02/18 21:00 92 12 118/63 (81) 100 08/02/18 20:00 90 08/02/18 20:00 30 08/02/18 20:00 98.7 90 12 95/12 (39) 100 08/02/18 20:00 Mechanical Ventilator Mechanical Ventilator Mechanical Ventilator 08/02/18 19:19 93 12 30 08/02/18 19:00 94 12 111/26 (54) 100 08/02/18 18:00 92 12 118/28 (58) 100 08/02/18 17:00 93 12 129/25 (59) 100 08/02/18 16:30 88 12 30 08/02/18 16:00 98.5 94 12 136/26 (62) 100 08/02/18 16:00 Mechanical Ventilator Mechanical Ventilator Mechanical Ventilator 08/02/18 16:00 89 08/02/18 15:00 93 12 108/26 (53) 100 08/02/18 14:40 88 12 30 08/02/18 14:00 Mechanical Ventilator Mechanical Ventilator Mechanical Ventilator 08/02/18 14:00 92 12 108/26 (53) 100 08/02/18 13:00 91 12 123/30 (61) 100 08/02/18 12:40 30 08/02/18 12:32 98 12 30 08/02/18 12:00 101 08/02/18 12:00 99.0 97 20 118/89 (99) 100 08/02/18 12:00 Mechanical Ventilator Mechanical Ventilator Mechanical Ventilator 08/02/18 11:00 94 18 116/13 (47) 100 08/02/18 10:34 86 14 30 08/02/18 10:00 93 16 116/19 (51) 100 08/02/18 09:00 100 19 102/37 (58) 100 08/02/18 08:49 114 97/60 08/02/18 08:38 95 20 30 08/02/18 08:37 97 08/02/18 08:18 99 16 30 08/02/18 08:00 98.0 102 19 109/48 (68) 99 08/02/18 08:00 105 08/02/18 08:00 Mechanical Ventilator Mechanical Ventilator Mechanical Ventilator 08/02/18 08:00 30 08/02/18 07:26 91 12 30 Intake and Output 08/02/18 08/03/18 18:59 06:59 Intake Total 620 ml 470 ml Balance 620 ml 470 ml Free Water 150 ml 110 ml IV Total 110 ml Tube Feeding 360 ml 360 ml # Bowel Movements 1 General Appearance: no acute distress HEENT: normocephalic Respiratory/Chest: chest wall non-tender, decreased breath sounds Cardiovascular: normal peripheral pulses, regular rhythm Abdomen: normal bowel sounds, soft, non tender Laboratory Tests 08/03/18 04:57: White Blood Count 4.6L, Red Blood Count 3.26L, Hemoglobin 9.3L, Hematocrit 30.7L , Mean Corpuscular Volume 94, Mean Corpuscular Hemoglobin 28.6, Mean Corpuscular Hemoglobin Concent 30.4L, Red Cell Distribution Width 18.8H, Platelet Count 243, Mean Platelet Volume 6.5, Neutrophils (%) (Auto) 65.8, Lymphocytes (%) (Auto) 18.0L, Monocytes (%) (Auto) 10.7H, Eosinophils (%) (Auto ) 4.8H, Basophils (%) (Auto) 0.7, Sodium Level 142, Potassium Level 3.3L, Chloride Level 104, Carbon Dioxide Level 29, Anion Gap 9, Blood Urea Nitrogen 49H, Creatinine 3.4H, Estimat Glomerular Filtration Rate , Glucose Level 87, Calcium Level 8.4L, Phosphorus Level 2.9, Total Bilirubin 0.3, Aspartate Amino Transf (AST/SGOT) 14L, Alanine Aminotransferase (ALT/SGPT) < 6L, Alkaline Phosphatase 70, Total Protein 6.1L, Albumin 1.3L, Globulin 4.8, Albumin/ Globulin Ratio 0.3L Current Medications Medications (Trade) Dose Ordered Sig/Renetta Route PRN Reason Start Time Stop Time Status Last Admin Dose Admin Acetaminophen (Tylenol) 650 mg Q6H PRN ORAL Mild Pain/Temp > 100.5 08/02/18 14:15 09/01/18 14:14 Amiodarone HCl (Cordarone) 200 mg EVERY 12 HOURS ORAL 07/26/18 21:00 08/25/18 20:59 08/02/18 21:03 Chlorhexidine Gluconate (Rylie-Hex 2%) 1 applic DAILY@2000 TOPIC 07/26/18 20:00 08/25/18 19:59 08/02/18 20:09 Epoetin Paul (Procrit (for ESRD on dialysis)) 10,000 units WED-WED-WED SUBQ 07/27/18 21:00 08/26/18 20:59 08/01/18 20:50 Fentanyl Citrate (Sublimaze 100 mcg/2 mL) 25 mcg Q2H PRN IV Pain Scale (6-10) 07/30/18 20:15 08/06/18 20:14 07/31/18 17:33 Heparin Sodium (Porcine) (Heparin Sod 1000 units/ml 10ml) 2,000 unit ONCE IV 08/03/18 14:15 08/03/18 23:59 Linezolid (Zyvox) 600 mg EVERY 12 HOURS ORAL 07/27/18 21:00 08/06/18 20:59 08/02/18 21:03 Meropenem 500 mg/ Sodium Chloride 55 ml @ 110 mls/hr DAILY IVPB 07/27/18 12:00 08/06/18 11:59 08/02/18 10:08 Metoprolol Tartrate (Lopressor) 12.5 mg Q12HR ORAL 08/01/18 21:00 08/31/18 20:59 08/02/18 21:03 Minoxidil (Loniten) 5 mg Q12HR NG 07/31/18 21:00 08/30/18 20:59 08/02/18 21:03 Pantoprazole (Protonix) 40 mg Q12HR IVP 07/25/18 21:00 08/25/18 08:59 08/02/18 21:01 Sodium Chloride 1,000 ml @ 500 mls/hr Q2H PRN IVLG sbp<90 during hd 08/03/18 14:02 08/03/18 23:59 Andres Allan MD Aug 03, 2018 07:04
--- NOTE | 2018-08-03 07:15 | NUR ---
HAND-OFF: Report given to JOSE ALBERTO ANDRE RN.
--- NOTE | 2018-08-03 07:15 | NUR ---
NURSE NOTES: Patient received from BALDO Noriega. Patient is alert in bed, patient is has a ETT to the middle of the mouth, size 7.5, 23cm at the lip, vent setting AC 12, TV 500, FIO2 30%, Peep 5, 02 saturation 100%. No acute distress noted at this time. Patient is connected to the surveillance monitor A-fib and sinus rhythm HR 63. Bilateral lung sound of rhonchi upon auscultation. Abdomen is large, soft and non tender, patient has a NGT in the right nares, 55cm at the nose line, patient is connected to feeding Nepro 1.8 at 50ml/hr, no residual noted, placement verification heard gurgling upon auscultation. Patient is anuric. Patient has a sacral wound and several wounds on both legs, dressing are all dry and intact at this time. Patient has a right midline, asymptomatic, patent with TKO. Bed is at 30 degrees, bed is locked and in the lowest position, bed alarm is on, will continue to monitor patient and follow plan of care.
--- NOTE | 2018-08-03 07:45 | Nephrology Progress Note ---
Assessment/Plan Assessment Seee below Plan MOF, improving slowly. Sepsis due to infected diabetic ulcers. On IV Abx. Followed by ID, Vasc. Sx, Podiatry. Septic Shock pressors PRN ESRD HD q MWF Anemia of CKD , DARRYN high dose. Transfuse PRN. Resp Failure - Vent per Pul. Trying to wean. REGINALDO Allan. 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 with LAE. LVEF 65% . Anticoagulate when stable. REGINALDO Butler. PVD. Needs Angio. REGINALDO Sauceda. Subjective Subjective Awake + alert. No c/o Objective Objective Last 24 Hour Vital Signs Date Time Temp Pulse Resp B/P (MAP) Pulse Ox O2 Delivery O2 Flow Rate FiO2 08/03/18 07:29 61 12 30 08/03/18 07:00 63 12 136/13 (54) 100 08/03/18 06:00 65 12 112/21 (51) 100 08/03/18 05:01 63 12 30 08/03/18 05:00 64 14 98/59 (72) 100 08/03/18 04:00 98.4 61 13 140/16 (57) 100 08/03/18 04:00 Mechanical Ventilator Mechanical Ventilator Mechanical Ventilator 08/03/18 04:00 30 08/03/18 04:00 61 08/03/18 03:06 58 12 30 08/03/18 03:00 58 12 137/17 (57) 100 08/03/18 02:00 58 12 131/10 (50) 100 08/03/18 01:10 58 12 30 08/03/18 01:00 58 12 126/21 (56) 100 08/03/18 00:00 98.3 58 12 90/73 (79) 100 08/03/18 00:00 30 08/03/18 00:00 Mechanical Ventilator Mechanical Ventilator Mechanical Ventilator 08/03/18 00:00 58 08/02/18 23:15 58 12 30 08/02/18 23:00 59 12 123/16 (51) 100 08/02/18 22:00 60 12 128/22 (57) 100 08/02/18 21:24 64 13 30 08/02/18 21:03 104 118/63 08/02/18 21:03 118/63 08/02/18 21:00 92 12 118/63 (81) 100 08/02/18 20:00 90 08/02/18 20:00 30 08/02/18 20:00 98.7 90 12 95/12 (39) 100 08/02/18 20:00 Mechanical Ventilator Mechanical Ventilator Mechanical Ventilator 08/02/18 19:19 93 12 30 08/02/18 19:00 94 12 111/26 (54) 100 08/02/18 18:00 92 12 118/28 (58) 100 08/02/18 17:00 93 12 129/25 (59) 100 08/02/18 16:30 88 12 30 08/02/18 16:00 98.5 94 12 136/26 (62) 100 08/02/18 16:00 Mechanical Ventilator Mechanical Ventilator Mechanical Ventilator 08/02/18 16:00 89 08/02/18 15:00 93 12 108/26 (53) 100 08/02/18 14:40 88 12 30 08/02/18 14:00 Mechanical Ventilator Mechanical Ventilator Mechanical Ventilator 08/02/18 14:00 92 12 108/26 (53) 100 08/02/18 13:00 91 12 123/30 (61) 100 08/02/18 12:40 30 08/02/18 12:32 98 12 30 08/02/18 12:00 101 08/02/18 12:00 99.0 97 20 118/89 (99) 100 08/02/18 12:00 Mechanical Ventilator Mechanical Ventilator Mechanical Ventilator 08/02/18 11:00 94 18 116/13 (47) 100 08/02/18 10:34 86 14 30 08/02/18 10:00 93 16 116/19 (51) 100 08/02/18 09:00 100 19 102/37 (58) 100 08/02/18 08:49 114 97/60 08/02/18 08:38 95 20 30 08/02/18 08:37 97 08/02/18 08:18 99 16 30 08/02/18 08:00 98.0 102 19 109/48 (68) 99 08/02/18 08:00 105 08/02/18 08:00 Mechanical Ventilator Mechanical Ventilator Mechanical Ventilator 08/02/18 08:00 30 Intake and Output 08/02/18 08/03/18 18:59 06:59 Intake Total 620 ml 470 ml Balance 620 ml 470 ml Free Water 150 ml 110 ml IV Total 110 ml Tube Feeding 360 ml 360 ml # Bowel Movements 1 Laboratory Tests 08/03/18 04:57: White Blood Count 4.6L, Red Blood Count 3.26L, Hemoglobin 9.3L, Hematocrit 30.7L , Mean Corpuscular Volume 94, Mean Corpuscular Hemoglobin 28.6, Mean Corpuscular Hemoglobin Concent 30.4L, Red Cell Distribution Width 18.8H, Platelet Count 243, Mean Platelet Volume 6.5, Neutrophils (%) (Auto) 65.8, Lymphocytes (%) (Auto) 18.0L, Monocytes (%) (Auto) 10.7H, Eosinophils (%) (Auto ) 4.8H, Basophils (%) (Auto) 0.7, Sodium Level 142, Potassium Level 3.3L, Chloride Level 104, Carbon Dioxide Level 29, Anion Gap 9, Blood Urea Nitrogen 49H, Creatinine 3.4H, Estimat Glomerular Filtration Rate , Glucose Level 87, Calcium Level 8.4L, Phosphorus Level 2.9, Total Bilirubin 0.3, Aspartate Amino Transf (AST/SGOT) 14L, Alanine Aminotransferase (ALT/SGPT) < 6L, Alkaline Phosphatase 70, Total Protein 6.1L, Albumin 1.3L, Globulin 4.8, Albumin/ Globulin Ratio 0.3L Height (Feet): 5 Height (Inches): 2.00 Weight (Pounds): 125 Objective Intubated, On vent. BP measured more accurately with a smaller cuff placed on rt. FA. Cv IRR/IRR Lungs B facundo. Abd SNT. BS + E Rt. foot diabetic ulcers with pus Chase He MD Aug 03, 2018 07:45
--- NOTE | 2018-08-03 08:30 | NUR ---
Weaning began. Patient placed on Spontaneous Breathing with PS 8 and PEEP +5. Will continue to monitor patient.
--- NOTE | 2018-08-03 08:35 | NUR ---
Weaning failed due to poor effort. Placed back on previous vent settings.
--- NOTE | 2018-08-03 09:15 | NUR ---
NURSE NOTES: Patient repositioned, received oral care, patient orally suctioned with thick, clear sputum. Patient is resistive to have her mouth cleaned. Will continue to educate and encourage patient to allow staff to suction and clean her mouth. Patient received medications. Bed is at 30 degrees, bed is locked ans in the lowest position, bed alarm is on. Will continue to monitor patient and follow plan of care.
[2018-08-03] MEDS: Minoxidil 2.5mg tab NG SCH ×2 (09:59→21:42)
[2018-08-03] MEDS: Metoprolol Tartrate 12.5mg TAB ORAL SCH ×2 (10:00→21:43)
[2018-08-03] MEDS: Amiodarone 200mg tab ORAL SCH (10:00)
[2018-08-03] MEDS: Pantoprazole Inj IVP SCH ×2 (10:02→20:38)
[2018-08-03] MEDS: Meropenem 500 MG in NS 55 ML IVPB SCH (10:03)
--- NOTE | 2018-08-03 11:22 | NUR ---
CASE MANAGEMENT: REVIEW SI: A-FIB . SEPSIS . ESRD ON HD MWF . ORALLY INTUBATED T 98.4 HR 61 RR 12 BP 98/59 SAT 100% MECH VENT FIO2 30 WBC 4.6 H/H 9.3/30.7 K 3.3 BUN 49 CR 3.4 IS: MEROPENEM IV QD AMIODARONE PO Q12HR PROTONIX IV Q12HR LOPRESSOR PO Q12HR NGT FEEDING NEPRO @10ML/HR TRANSFUSE PRBC PRN ICU STATUS DCP: PATIENT IS FROM [facility]
--- NOTE | 2018-08-03 13:37 | NUR ---
NURSE NOTES: Hemodialysis has been completed. HD nurse informed staff that he removed 1 Liter from the patient. Hemodialysis nurse also informed staff that dressing was changed. Will continue to monitor patient and follow plan of care.
--- NOTE | 2018-08-03 13:40 | General Surgery Progress Note ---
General Surgery-Progress Note Subjective Procedure Performed left subclavian central venous catheter insertion Additional Comments no acute events. still intubated. more awake and responsive today. follow commands Objective Last 24 Hour Vital Signs Date Time Temp Pulse Resp B/P (MAP) Pulse Ox O2 Delivery O2 Flow Rate FiO2 08/03/18 13:15 61 12 30 08/03/18 12:00 30 08/03/18 12:00 Mechanical Ventilator Mechanical Ventilator 08/03/18 12:00 58 08/03/18 11:00 67 19 133/59 (83) 100 08/03/18 10:49 58 12 30 08/03/18 10:00 89 19 115/56 (75) 100 08/03/18 10:00 64 108/17 08/03/18 09:59 108/17 08/03/18 09:00 65 13 127/19 (55) 100 08/03/18 08:37 100 08/03/18 08:36 69 17 30 08/03/18 08:32 62 10 30 08/03/18 08:00 61 08/03/18 08:00 98.2 60 12 124/21 (55) 100 08/03/18 08:00 Mechanical Ventilator Mechanical Ventilator Mechanical Ventilator 08/03/18 08:00 30 08/03/18 07:29 61 12 30 08/03/18 07:00 63 12 136/13 (54) 100 08/03/18 06:00 65 12 112/21 (51) 100 08/03/18 05:01 63 12 30 08/03/18 05:00 64 14 98/59 (72) 100 08/03/18 04:00 98.4 61 13 140/16 (57) 100 08/03/18 04:00 Mechanical Ventilator Mechanical Ventilator Mechanical Ventilator 08/03/18 04:00 30 08/03/18 04:00 61 08/03/18 03:06 58 12 30 08/03/18 03:00 58 12 137/17 (57) 100 08/03/18 02:00 58 12 131/10 (50) 100 08/03/18 01:10 58 12 30 08/03/18 01:00 58 12 126/21 (56) 100 08/03/18 00:00 98.3 58 12 90/73 (79) 100 08/03/18 00:00 30 08/03/18 00:00 Mechanical Ventilator Mechanical Ventilator Mechanical Ventilator 08/03/18 00:00 58 08/02/18 23:15 58 12 30 08/02/18 23:00 59 12 123/16 (51) 100 08/02/18 22:00 60 12 128/22 (57) 100 08/02/18 21:24 64 13 30 08/02/18 21:03 104 118/63 08/02/18 21:03 118/63 08/02/18 21:00 92 12 118/63 (81) 100 08/02/18 20:00 90 08/02/18 20:00 30 08/02/18 20:00 98.7 90 12 95/12 (39) 100 08/02/18 20:00 Mechanical Ventilator Mechanical Ventilator Mechanical Ventilator 08/02/18 19:19 93 12 30 08/02/18 19:00 94 12 111/26 (54) 100 08/02/18 18:00 92 12 118/28 (58) 100 08/02/18 17:00 93 12 129/25 (59) 100 08/02/18 16:30 88 12 30 08/02/18 16:00 98.5 94 12 136/26 (62) 100 08/02/18 16:00 Mechanical Ventilator Mechanical Ventilator Mechanical Ventilator 08/02/18 16:00 89 08/02/18 15:00 93 12 108/26 (53) 100 08/02/18 14:40 88 12 30 08/02/18 14:00 Mechanical Ventilator Mechanical Ventilator Mechanical Ventilator 08/02/18 14:00 92 12 108/26 (53) 100 I&O Intake and Output 08/02/18 08/03/18 19:00 07:00 Intake Total 620 ml 470 ml Balance 620 ml 470 ml Free Water 150 ml 110 ml IV Total 110 ml Tube Feeding 360 ml 360 ml # Bowel Movements 1 Dressing: other Wound: other Drains: other Cardiovascular: RSR Respiratory: decreased breath sounds Abdomen: soft, flat, non-tender, present bowel sounds Extremities: other Laboratory Tests Test 08/03/18 04:57 White Blood Count 4.6 K/UL (4.8-10.8) L Red Blood Count 3.26 M/UL (4.20-5.40) L Hemoglobin 9.3 G/DL (12.0-16.0) L Hematocrit 30.7 % (37.0-47.0) L Mean Corpuscular Volume 94 FL (80-99) Mean Corpuscular Hemoglobin 28.6 PG (27.0-31.0) Mean Corpuscular Hemoglobin Concent 30.4 G/DL (32.0-36.0) L Red Cell Distribution Width 18.8 % (11.6-14.8) H Platelet Count 243 K/UL (150-450) Mean Platelet Volume 6.5 FL (6.5-10.1) Neutrophils (%) (Auto) 65.8 % (45.0-75.0) Lymphocytes (%) (Auto) 18.0 % (20.0-45.0) L Monocytes (%) (Auto) 10.7 % (1.0-10.0) H Eosinophils (%) (Auto) 4.8 % (0.0-3.0) H Basophils (%) (Auto) 0.7 % (0.0-2.0) Sodium Level 142 MMOL/L (136-145) Potassium Level 3.3 MMOL/L (3.5-5.1) L Chloride Level 104 MMOL/L (98-107) Carbon Dioxide Level 29 MMOL/L (21-32) Anion Gap 9 mmol/L (5-15) Blood Urea Nitrogen 49 mg/dL (7-18) H Creatinine 3.4 MG/DL (0.55-1.30) H Estimat Glomerular Filtration Rate mL/min (>60) Glucose Level 87 MG/DL (74-106) Calcium Level 8.4 MG/DL (8.5-10.1) L Phosphorus Level 2.9 MG/DL (2.5-4.9) Total Bilirubin 0.3 MG/DL (0.2-1.0) Aspartate Amino Transf (AST/SGOT) 14 U/L (15-37) L Alanine Aminotransferase (ALT/SGPT) < 6 U/L (12-78) L Alkaline Phosphatase 70 U/L (46-116) Total Protein 6.1 G/DL (6.4-8.2) L Albumin 1.3 G/DL (3.4-5.0) L Globulin 4.8 g/dL Albumin/Globulin Ratio 0.3 (1.0-2.7) L Plan Problems: (1) Sepsis Assessment & Plan: acute decompensation hypotensive bradycardic respiratory decompensation requiring intubation and vent support - failed extubation leukocytosis resolved cont current ICU care and management may need trach if unable to wean off went with history of failed extubation thank you will follow with recs (2) Hypotension (3) Bradycardia (4) Altered mental status (5) Decubital ulcer Assessment & Plan: Patient with multiple pressure injuries where have been present since admission. Full thickness pressure injury to sacrum (L)(L)2.4cm x (W)4.4cm x (D)0.9cm, undermining 12-12 with tunneling 9-10 by 11.3cm. In close proximity to sacral wound on L buttocks purple ,indurated area with small area of slough measuring (L)0.6cm x (W)0.5cm noted. Arched surgical scar noted to L buttocks at site of tunneling. Resolving pressure injury noted to R ischium (L)3cm x (W)2cm. Wound bed epithelialized with maroon discoloration without induration periwound. Closed area with white pocket and purple margins noted to distal,carmela R tibia (L)6cm x (W)2.7cm Full thickness wound noted to distal/medial RLE (L)6.2cm x (W)3.8cm .Wound noted to have 95% mixed slough /necrosis ,marginal erythema. Wound malodorous. Wound posterior R tibia (L)4.7cm x (W) 3cm ,100% necrotic with marginal erythema. Dry eschar with marginal erythema (L)0.5cm x (W)0.7cm noted to medial R heel.Non-blanchable erythema noted to medial L malleolus. Dry brown eschar noted to medial L 1st malleolus (L)1.4cm x (W)1cm. L heel and lateral aspect boggy with non-blanchable erythema. Tx.Plan: Cleanse sacral wound with Saline.Loose pack with Hydrogel impregnated packing strip (Attention to tunneled area at 9-10).Cover with Optifoam drsg Daily and prn. Reposition at least every 2hours or as tolerated. Air Fluidized mattress. Off-load heels with pillow. Appreciate Podiatry and Vascular input Plan for anigo late by Vascular Reji Nails Aug 03, 2018 13:40
[2018-08-03] MEDS ORDERED: Heparin Sod 1000 units/ml 10ml IV SCH (14:15)
--- NOTE | 2018-08-03 15:37 | NUR ---
NURSE NOTES: Patient repositioned, oral care given. Patient is alert mouthing words, patient has bilateral wrist restraint, skin is intact, pulses are present. Bilateral arms and legs are elevated with pillows, head of bed is elevated to 30 degrees, bed is locked and in the lowest position, Bed alarm is on. No acute distress noted, no change in condition. Will continue to monitor patient and follow plan of care.
--- NOTE | 2018-08-03 17:30 | NUR ---
NURSE NOTES: Patient repositioned, patient received oral care and suctioned with clear thick oral secretions. Patient had a large bowel movement, bermudez brown and soft. No acute distress noted No change in condition. Stool has been collected and sent down to the lab. Head of bed is at 30 degrees, bed is locked and in the lowest position, bed alarm is on, 3 side rails are up. Will continue to monitor patient and follow plan of care.
--- NOTE | 2018-08-03 19:10 | NUR ---
HAND-OFF: Report given to BALDO PADILLA. No change in patient condition.
--- NOTE | 2018-08-03 19:11 | NUR ---
NURSE NOTES: Endorsement received from BALDO Pro. Patient awake, opens eyes spontaneously, follows commands. Communicates by nodding or shaking head when asked with a yes or no question. Orally intubated with ET 7.5, 23 lipline. AC 12 Vt 500 PEEP 5 30% FiO2. NGT pulled out by patient. Inserted at left nare, with 2 RN verifying placement per auscultation. With right upper arm midline, with good backflow and no resistance when flushed. Bilateral soft wrist restraints present. With AV shunt at left arm. On SPR mattress. Bed locked and in low position. Head of bed elevated. Call light within reach
--- NOTE | 2018-08-03 20:00 | NUR ---
NURSE NOTES: Tube feeding Nepro restarted at 30ml/hr
--- NOTE | 2018-08-03 20:23 | Cardiology Progress Note ---
Assessment/Plan Assessment/Plan 1. Hypotension, possibly sepsis versus volume. 2. Paroxysmal episodes of atrial fibrillation history. 3. Bradycardia secondary to medications, amiodarone possibly. 4. Diabetes mellitus. 5. End-stage renal disease, on hemodialysis. 6. Lung collapse. 7. Respiratory failure, status post intubation. 8. Dysphagia. 9. History of dementia. 10. Pulm htn 11. Pleural effusion in and out afib still despite bid amiod will increase to 400 mh bid watchj for devonte tele reviewed stool ob not resulted yet nwo sinus increase amiod for a few days Subjective Subjective on the vent not verbal but communicates with head motion Objective Last 24 Hour Vital Signs Date Time Temp Pulse Resp B/P (MAP) Pulse Ox O2 Delivery O2 Flow Rate FiO2 08/03/18 18:00 98.2 68 15 /27 99 08/03/18 17:00 68 14 92/15 (40) 100 08/03/18 16:47 68 13 30 08/03/18 16:00 Mechanical Ventilator Mechanical Ventilator 08/03/18 16:00 67 08/03/18 16:00 30 08/03/18 16:00 67 14 70/54 (59) 99 08/03/18 15:00 66 14 91/77 (82) 100 08/03/18 14:54 64 12 30 08/03/18 14:00 64 13 131/92 (105) 100 08/03/18 13:15 61 12 30 08/03/18 13:00 64 14 96/62 (73) 100 08/03/18 12:00 30 08/03/18 12:00 64 14 118/37 (64) 100 08/03/18 12:00 Mechanical Ventilator Mechanical Ventilator 08/03/18 12:00 58 08/03/18 11:00 67 19 133/59 (83) 100 08/03/18 10:49 58 12 30 08/03/18 10:00 89 19 115/56 (75) 100 08/03/18 10:00 64 108/17 08/03/18 09:59 108/17 08/03/18 09:00 65 13 127/19 (55) 100 08/03/18 08:37 100 08/03/18 08:36 69 17 30 08/03/18 08:32 62 10 30 08/03/18 08:00 61 08/03/18 08:00 98.2 60 12 124/21 (55) 100 08/03/18 08:00 Mechanical Ventilator Mechanical Ventilator Mechanical Ventilator 08/03/18 08:00 30 08/03/18 07:29 61 12 30 08/03/18 07:00 63 12 136/13 (54) 100 08/03/18 06:00 65 12 112/21 (51) 100 08/03/18 05:01 63 12 30 08/03/18 05:00 64 14 98/59 (72) 100 08/03/18 04:00 98.4 61 13 140/16 (57) 100 08/03/18 04:00 Mechanical Ventilator Mechanical Ventilator Mechanical Ventilator 08/03/18 04:00 30 08/03/18 04:00 61 08/03/18 03:06 58 12 30 08/03/18 03:00 58 12 137/17 (57) 100 08/03/18 02:00 58 12 131/10 (50) 100 08/03/18 01:10 58 12 30 08/03/18 01:00 58 12 126/21 (56) 100 08/03/18 00:00 98.3 58 12 90/73 (79) 100 08/03/18 00:00 30 08/03/18 00:00 Mechanical Ventilator Mechanical Ventilator Mechanical Ventilator 08/03/18 00:00 58 08/02/18 23:15 58 12 30 08/02/18 23:00 59 12 123/16 (51) 100 08/02/18 22:00 60 12 128/22 (57) 100 08/02/18 21:24 64 13 30 08/02/18 21:03 104 118/63 08/02/18 21:03 118/63 08/02/18 21:00 92 12 118/63 (81) 100 General Appearance: on vent, patient on isolation Intake and Output 08/02/18 08/03/18 19:00 07:00 Intake Total 620 ml 470 ml Balance 620 ml 470 ml Free Water 150 ml 110 ml IV Total 110 ml Tube Feeding 360 ml 360 ml # Bowel Movements 1 Laboratory Tests Test 08/03/18 04:57 White Blood Count 4.6 K/UL (4.8-10.8) L Red Blood Count 3.26 M/UL (4.20-5.40) L Hemoglobin 9.3 G/DL (12.0-16.0) L Hematocrit 30.7 % (37.0-47.0) L Mean Corpuscular Volume 94 FL (80-99) Mean Corpuscular Hemoglobin 28.6 PG (27.0-31.0) Mean Corpuscular Hemoglobin Concent 30.4 G/DL (32.0-36.0) L Red Cell Distribution Width 18.8 % (11.6-14.8) H Platelet Count 243 K/UL (150-450) Mean Platelet Volume 6.5 FL (6.5-10.1) Neutrophils (%) (Auto) 65.8 % (45.0-75.0) Lymphocytes (%) (Auto) 18.0 % (20.0-45.0) L Monocytes (%) (Auto) 10.7 % (1.0-10.0) H Eosinophils (%) (Auto) 4.8 % (0.0-3.0) H Basophils (%) (Auto) 0.7 % (0.0-2.0) Sodium Level 142 MMOL/L (136-145) Potassium Level 3.3 MMOL/L (3.5-5.1) L Chloride Level 104 MMOL/L (98-107) Carbon Dioxide Level 29 MMOL/L (21-32) Anion Gap 9 mmol/L (5-15) Blood Urea Nitrogen 49 mg/dL (7-18) H Creatinine 3.4 MG/DL (0.55-1.30) H Estimat Glomerular Filtration Rate mL/min (>60) Glucose Level 87 MG/DL (74-106) Calcium Level 8.4 MG/DL (8.5-10.1) L Phosphorus Level 2.9 MG/DL (2.5-4.9) Total Bilirubin 0.3 MG/DL (0.2-1.0) Aspartate Amino Transf (AST/SGOT) 14 U/L (15-37) L Alanine Aminotransferase (ALT/SGPT) < 6 U/L (12-78) L Alkaline Phosphatase 70 U/L (46-116) Total Protein 6.1 G/DL (6.4-8.2) L Albumin 1.3 G/DL (3.4-5.0) L Globulin 4.8 g/dL Albumin/Globulin Ratio 0.3 (1.0-2.7) L Microbiology Date/Time Source Procedure Growth Status 08/02/18 17:30 Sputum Gram Stain - Final Resulted 08/02/18 17:30 Sputum Sputum Culture - Preliminary Resulted Angelo Butler MD Aug 03, 2018 20:23
[2018-08-03] MEDS: Dyna-Hex 2% Top Sol 2oz TOPIC SCH (20:38)
[2018-08-03] MEDS: Epogen (for ESRD on dialysis) SUBQ SCH (20:39)
[2018-08-03] MEDS ORDERED: Amiodarone 200mg tab ORAL SCH (21:00)
--- NOTE | 2018-08-03 22:00 | NUR ---
NURSE NOTES: Repositioned patient. Secretions suctioned.
[2018-08-04] VITALS (24 sets, daily range): BP systolic 74–144; BP diastolic 11–222
--- NOTE | 2018-08-04 | NUR ---
NURSE NOTES: Patient awake, watching tv. No pain or discomfort. Head of bed kept elevated.
--- NOTE | 2018-08-04 02:00 | NUR ---
NURSE NOTES: Repositioned as scheduled. Vital signs stable
--- NOTE | 2018-08-04 04:00 | NUR ---
NURSE NOTES: Oral care, change of dressings, bed bath done.
--- NOTE | 2018-08-04 06:00 | NUR ---
NURSE NOTES: Patient awake. No pain or discomfort. No SOB
--- NOTE | 2018-08-04 07:00 | NUR ---
NURSE NOTES: Received patient from Huan Mac. Received patient alert, intubated with size 7.5, 23cm at the lip, vent setting AC 12, Tv 500, fio2 30%, peep 5, 02 saturation 100%. No acute distress noted. Patient is connected to the quality control clerk, patent is sinus rhythm at this time on the monitor. Patient has a right upper arm picc, asymptomatic, patent with TKO. Patient has bilateral wrist restraints, skin is intact, bilateral pulse are resent.Patient has left extremity swelling.Patient has a NGT in the left nares, placement verified with auscultation bubbling sounds heard, no residual noted, NGT running NEPRO at 30ml. Patient anuric. Contact precaution noted. Head of bed is at 30 degrees, bed is locked and in the lowest position, bed alarm is on, 3 side rails are up. Will continue to monitor patient and follow plan of care.
--- NOTE | 2018-08-04 07:00 | NUR ---
HAND-OFF: Report given to BALDO Pro.
--- NOTE | 2018-08-04 07:46 | Nephrology Progress Note ---
Assessment/Plan Assessment Seee below Plan MOF, improving slowly. Sepsis due to infected diabetic ulcers. On IV Abx. Followed by ID, Vasc. Sx, Podiatry. Septic Shock pressors PRN ESRD HD q MWF Anemia of CKD , DARRYN high dose. Transfuse PRN. Resp Failure - Vent per Pul. Trying to wean. REGINALDO Allan. 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 with LAE. LVEF 65% . Anticoagulate when stable. REGINALDO Butler. In and out A. Fib. If unweanable will need Trach + PEG ------> Subacute Subjective Subjective Awake + alert. No c/o Objective Objective Last 24 Hour Vital Signs Date Time Temp Pulse Resp B/P (MAP) Pulse Ox O2 Delivery O2 Flow Rate FiO2 08/04/18 07:00 70 14 104/80 (88) 100 08/04/18 06:00 70 14 111/22 (51) 100 08/04/18 05:30 70 12 30 08/04/18 05:00 70 14 133/35 (67) 100 08/04/18 04:00 69 08/04/18 04:00 Mechanical Ventilator Mechanical Ventilator 08/04/18 04:00 99.0 71 14 144/11 (55) 100 08/04/18 04:00 30 08/04/18 03:30 71 12 30 08/04/18 03:00 70 14 133/66 (88) 100 08/04/18 02:00 71 15 123/11 (48) 100 08/04/18 01:30 70 12 30 08/04/18 01:00 99.8 68 15 121/24 (56) 100 08/04/18 00:00 68 15 136/87 (103) 100 08/04/18 00:00 68 08/04/18 00:00 Mechanical Ventilator Mechanical Ventilator 08/03/18 23:38 67 13 30 08/03/18 23:00 68 14 130/10 (50) 100 08/03/18 22:00 73 17 120/12 (48) 99 08/03/18 21:43 76 128/13 08/03/18 21:42 128/13 08/03/18 21:30 82 14 30 08/03/18 21:00 79 17 119/13 (48) 99 08/03/18 20:00 Mechanical Ventilator Mechanical Ventilator 08/03/18 20:00 99.0 79 17 142/20 (60) 99 08/03/18 20:00 76 08/03/18 20:00 30 08/03/18 19:30 84 15 30 08/03/18 19:00 79 17 161/20 (67) 99 08/03/18 18:00 98.2 68 15 /27 99 08/03/18 17:00 68 14 92/15 (40) 100 08/03/18 16:47 68 13 30 08/03/18 16:00 Mechanical Ventilator Mechanical Ventilator 08/03/18 16:00 67 08/03/18 16:00 30 08/03/18 16:00 67 14 70/54 (59) 99 08/03/18 15:00 66 14 91/77 (82) 100 08/03/18 14:54 64 12 30 08/03/18 14:00 64 13 131/92 (105) 100 08/03/18 13:15 61 12 30 08/03/18 13:00 64 14 96/62 (73) 100 08/03/18 12:00 30 08/03/18 12:00 64 14 118/37 (64) 100 08/03/18 12:00 Mechanical Ventilator Mechanical Ventilator 08/03/18 12:00 58 08/03/18 11:00 67 19 133/59 (83) 100 08/03/18 10:49 58 12 30 08/03/18 10:00 89 19 115/56 (75) 100 08/03/18 10:00 64 108/17 08/03/18 09:59 108/17 08/03/18 09:00 65 13 127/19 (55) 100 08/03/18 08:37 100 08/03/18 08:36 69 17 30 08/03/18 08:32 62 10 30 08/03/18 08:00 61 08/03/18 08:00 98.2 60 12 124/21 (55) 100 08/03/18 08:00 Mechanical Ventilator Mechanical Ventilator Mechanical Ventilator 08/03/18 08:00 30 Intake and Output 08/03/18 08/04/18 18:59 06:59 Intake Total 1360 ml 450 ml Balance 1360 ml 450 ml Free Water 60 ml 90 ml Tube Feeding 300 ml 360 ml Hemodialysis 1000 ml # Bowel Movements 1 Laboratory Tests 08/03/18 19:55: Stool Occult Blood [Pending] Height (Feet): 5 Height (Inches): 2.00 Weight (Pounds): 125 Objective Intubated, On vent. BP measured more accurately with a smaller cuff placed on rt. FA. Cv IRR/IRR Lungs B ronchi. Abd SNT. BS + E Rt. foot diabetic ulcers with pus Chase He MD Aug 04, 2018 07:46
--- NOTE | 2018-08-04 09:00 | NUR ---
NURSE NOTES: Called Dr. Bills left message with bracer (Seamus) in regards to patient increased dose of amiodarone, Patient heart rate is in the 60's. Awaiting call back.
[2018-08-04] MEDS: Meropenem 500 MG in NS 55 ML IVPB SCH (09:07)
[2018-08-04] MEDS: Pantoprazole Inj IVP SCH ×2 (09:07→20:48)
[2018-08-04] MEDS: Minoxidil 2.5mg tab NG SCH ×2 (09:08→20:50)
[2018-08-04] MEDS: Metoprolol Tartrate 12.5mg TAB ORAL SCH ×2 (09:09→20:54)
--- NOTE | 2018-08-04 09:35 | Pulmonology Progress Note ---
Assessment/Plan Assessment/Plan IMPRESSION: 1. Hypotension. 2. Sepsis. 3. Atrial fibrillation. 4. Bradycardia. 5. Diabetes mellitus. 6. End-stage renal disease on dialysis. 7. Left lung collapse. Resolved 8. Respiratory failure. 9. Dysphagia. 10. Dementia. 11. Anemia 12. Pneumonia DISCUSSION: 1. Continue medications. 2. CXR improved 3. status post bronchoscopy 4. Central access 5. Use broad-spectrum antibiotics. 6. continue weaning attempts Continue weaning; discussed with RN CXR improved Andres Allan M.D. Subjective Interval Events: None new; unable to wean yesterday Constitutional: Reports: no symptoms HEENT: Repors: no symptoms Respiratory: Reports: no symptoms Cardiovascular: Reports: no symptoms Gastrointestinal/Abdominal: Reports: no symptoms Genitourinary: Reports: no symptoms Allergies: Coded Allergies: No Known Allergies (Unverified , 07/25/18) Objective Last 24 Hour Vital Signs Date Time Temp Pulse Resp B/P (MAP) Pulse Ox O2 Delivery O2 Flow Rate FiO2 08/04/18 09:09 70 108/93 08/04/18 09:08 108/93 08/04/18 07:06 72 13 30 08/04/18 07:00 70 14 104/80 (88) 100 08/04/18 06:00 70 14 111/22 (51) 100 08/04/18 05:30 70 12 30 08/04/18 05:00 70 14 133/35 (67) 100 08/04/18 04:00 69 08/04/18 04:00 Mechanical Ventilator Mechanical Ventilator 08/04/18 04:00 99.0 71 14 144/11 (55) 100 08/04/18 04:00 30 08/04/18 03:30 71 12 30 08/04/18 03:00 70 14 133/66 (88) 100 08/04/18 02:00 71 15 123/11 (48) 100 08/04/18 01:30 70 12 30 08/04/18 01:00 99.8 68 15 121/24 (56) 100 08/04/18 00:00 68 15 136/87 (103) 100 08/04/18 00:00 68 08/04/18 00:00 Mechanical Ventilator Mechanical Ventilator 08/03/18 23:38 67 13 30 08/03/18 23:00 68 14 130/10 (50) 100 08/03/18 22:00 73 17 120/12 (48) 99 08/03/18 21:43 76 128/13 08/03/18 21:42 128/13 08/03/18 21:30 82 14 30 08/03/18 21:00 79 17 119/13 (48) 99 08/03/18 20:00 Mechanical Ventilator Mechanical Ventilator 08/03/18 20:00 99.0 79 17 142/20 (60) 99 08/03/18 20:00 76 08/03/18 20:00 30 08/03/18 19:30 84 15 30 08/03/18 19:00 79 17 161/20 (67) 99 08/03/18 18:00 98.2 68 15 /27 99 08/03/18 17:00 68 14 92/15 (40) 100 08/03/18 16:47 68 13 30 08/03/18 16:00 Mechanical Ventilator Mechanical Ventilator 08/03/18 16:00 67 08/03/18 16:00 30 08/03/18 16:00 67 14 70/54 (59) 99 08/03/18 15:00 66 14 91/77 (82) 100 08/03/18 14:54 64 12 30 08/03/18 14:00 64 13 131/92 (105) 100 08/03/18 13:15 61 12 30 08/03/18 13:00 64 14 96/62 (73) 100 08/03/18 12:00 30 08/03/18 12:00 64 14 118/37 (64) 100 08/03/18 12:00 Mechanical Ventilator Mechanical Ventilator 08/03/18 12:00 58 08/03/18 11:00 67 19 133/59 (83) 100 08/03/18 10:49 58 12 30 08/03/18 10:00 89 19 115/56 (75) 100 08/03/18 10:00 64 108/17 08/03/18 09:59 108/17 Intake and Output 08/03/18 08/04/18 18:59 06:59 Intake Total 1360 ml 450 ml Balance 1360 ml 450 ml Free Water 60 ml 90 ml Tube Feeding 300 ml 360 ml Hemodialysis 1000 ml # Bowel Movements 1 General Appearance: no acute distress HEENT: normocephalic Respiratory/Chest: chest wall non-tender Cardiovascular: normal peripheral pulses, normal rate Abdomen: normal bowel sounds Microbiology Date/Time Source Procedure Growth Status 08/02/18 17:30 Sputum Gram Stain - Final Complete 08/02/18 17:30 Sputum Culture - Final Megha Albicans Complete Laboratory Tests 08/03/18 19:55: Stool Occult Blood [Pending] Current Medications Medications (Trade) Dose Ordered Sig/Renetta Route PRN Reason Start Time Stop Time Status Last Admin Dose Admin Acetaminophen (Tylenol) 650 mg Q6H PRN ORAL Mild Pain/Temp > 100.5 08/02/18 14:15 09/01/18 14:14 Amiodarone HCl (Cordarone) 400 mg EVERY 12 HOURS ORAL 08/03/18 21:00 09/02/18 20:59 08/03/18 20:39 Chlorhexidine Gluconate (Rylie-Hex 2%) 1 applic DAILY@2000 TOPIC 07/26/18 20:00 08/25/18 19:59 08/03/18 20:38 Epoetin Paul (Procrit (for ESRD on dialysis)) 10,000 units WED-WED-WED SUBQ 07/27/18 21:00 08/26/18 20:59 08/03/18 20:39 Heparin Sodium (Porcine) (Heparin Sod 1000 units/ml 10ml) 2,000 unit ONCE ONCE IV 08/05/18 08:00 08/05/18 08:01 Linezolid (Zyvox) 600 mg EVERY 12 HOURS ORAL 07/27/18 21:00 08/06/18 20:59 08/04/18 09:10 Meropenem 500 mg/ Sodium Chloride 55 ml @ 110 mls/hr DAILY IVPB 07/27/18 12:00 08/06/18 11:59 08/04/18 09:07 Metoprolol Tartrate (Lopressor) 12.5 mg Q12HR ORAL 08/01/18 21:00 08/31/18 20:59 08/04/18 09:09 Minoxidil (Loniten) 5 mg Q12HR NG 07/31/18 21:00 08/30/18 20:59 08/04/18 09:08 Pantoprazole (Protonix) 40 mg Q12HR IVP 07/25/18 21:00 08/25/18 08:59 08/04/18 09:07 Sodium Chloride 1,000 ml @ 500 mls/hr Q2H PRN IVLG sbp<90 during hd 08/05/18 07:51 09/04/18 07:50 Adnres Allan MD Aug 04, 2018 09:35
--- NOTE | 2018-08-04 09:40 | NUR ---
RESPIRATORY NOTE:Started Weaning pt on cpap psv 8 peep 5 fio2 30%. pt is stable and showing no s/s of distress. Rn notified of weaning. will cont. to monitor pt.
--- NOTE | 2018-08-04 09:40 | NUR ---
NURSE NOTES: Patient began weaning trial PS 8, fio2 30%. Patient tolerating so far. Will continue to monitor patient and follow plan of care.
--- NOTE | 2018-08-04 09:50 | NUR ---
NURSE NOTES: Called [facility] at [phone] spoke to DANIEL to inform of order for tomorrow scheduled hemodialysis. Will continue to monitor patient and follow plan of care.
--- NOTE | 2018-08-04 10:20 | NUR ---
RD ASSESSMENT & RECOMMENDATIONS SEE CARE ACTIVITY FOR COMPLETE ASSESSMENT DAILY ESTIMATED NEEDS: Needs based on Critical care+ Advanced Wounds + ESRD/ 60kg 22-30 kcals/kg 4066-8231 total kcals 1.5-2.0 g protein/kg 90-120g g total protein Fluid per MD, on HD NUTRITION DIAGNOSIS: * Swallowing difficulty R/T respiratory status as evidenced by pt orally intubated, now on NGT feeds. (UPDATED) * Increased kcal/prot needs R/T wound healing as evidenced by pt admitted w/ multiple wounds including stage 4 sacral wound, refer to WC eval. * Altered nutrition related lab values R/T ESRD dx, clinical condition as evidenced by elev creat (4.6-> 3.4), low Na (130-> wnl), elev BNP >64201, low BP, pressor held at this time. CURRENT TF: Nepro @30ml/hr PO DIET RECOMMENDATIONS: MASTER SCHEDULER evaluation post extubation, prior to PO diet -> CCHO MED, RENAL ENTERAL NUTRITION RECOMMENDATIONS: Nepro @ 35ml/hr x 24 hrs + Prosource 1pkt TID to provide 840ml, 1512kcal, 68g + 33g prot, 611ml free water WITH HEMODYNAMIC STABILITY 1. Initiate Nepro @ 10ml/hr x 8 hrs, advance 10mlq 6-8 hrs as tolerated to goal rate 2. Add Prosource 1 pkt TID to meet increased prot needs (WITHOUT HEMODYNAMIC STABILITY, REC TROPHIC FEEDS OF NEPRO @ 10ML/HR X 24 HRS) ADDITIONAL RECOMMENDATIONS: * Calibrated bedscale wt for accurate CBW (pt w/ added air release mattress + pump, est 20-25#) * Monitor HD stability- NE held at this time * Wound healing- Nephrovite x 1, Afshin 1pkt BID * Monitor Renal fxn and lytes * SSI w/ TF- h/o DM * MASTER SCHEDULER eval post extubation as appropriate
--- NOTE | 2018-08-04 10:29 | Infectious Diseases Prog Note ---
Assessment/Plan Assessment/Plan A: Sepsis UTI Cellulitis of R leg Hypercapnic respiratory failure ESRD on HD DM Anemia Dementia PVD R pleural effusion Mucous plug P; Continue Zyvox & Meropenem Subjective ROS Limited/Unobtainable: Yes Constitutional: Reports: no symptoms Respiratory: Reports: other - on weaning process Musculoskeletal: Reports: pain, other - in right leg Allergies: Coded Allergies: No Known Allergies (Unverified , 07/25/18) Objective Vital Signs Last 24 Hour Vital Signs Date Time Temp Pulse Resp B/P (MAP) Pulse Ox O2 Delivery O2 Flow Rate FiO2 08/04/18 09:40 78 16 30 08/04/18 09:09 70 108/93 08/04/18 09:08 108/93 08/04/18 08:00 Mechanical Ventilator Mechanical Ventilator 08/04/18 08:00 98.2 70 14 92/23 (46) 100 08/04/18 08:00 30 08/04/18 07:06 72 13 30 08/04/18 07:00 70 14 104/80 (88) 100 08/04/18 06:00 70 14 111/22 (51) 100 08/04/18 05:30 70 12 30 08/04/18 05:00 70 14 133/35 (67) 100 08/04/18 04:00 69 08/04/18 04:00 Mechanical Ventilator Mechanical Ventilator 08/04/18 04:00 99.0 71 14 144/11 (55) 100 08/04/18 04:00 30 08/04/18 03:30 71 12 30 08/04/18 03:00 70 14 133/66 (88) 100 08/04/18 02:00 71 15 123/11 (48) 100 08/04/18 01:30 70 12 30 08/04/18 01:00 99.8 68 15 121/24 (56) 100 08/04/18 00:00 68 15 136/87 (103) 100 08/04/18 00:00 68 08/04/18 00:00 Mechanical Ventilator Mechanical Ventilator 08/03/18 23:38 67 13 30 08/03/18 23:00 68 14 130/10 (50) 100 08/03/18 22:00 73 17 120/12 (48) 99 08/03/18 21:43 76 128/13 08/03/18 21:42 128/13 08/03/18 21:30 82 14 30 08/03/18 21:00 79 17 119/13 (48) 99 08/03/18 20:00 Mechanical Ventilator Mechanical Ventilator 08/03/18 20:00 99.0 79 17 142/20 (60) 99 08/03/18 20:00 76 08/03/18 20:00 30 08/03/18 19:30 84 15 30 08/03/18 19:00 79 17 161/20 (67) 99 08/03/18 18:00 98.2 68 15 /27 99 08/03/18 17:00 68 14 92/15 (40) 100 08/03/18 16:47 68 13 30 08/03/18 16:00 Mechanical Ventilator Mechanical Ventilator 08/03/18 16:00 67 08/03/18 16:00 30 08/03/18 16:00 67 14 70/54 (59) 99 08/03/18 15:00 66 14 91/77 (82) 100 08/03/18 14:54 64 12 30 08/03/18 14:00 64 13 131/92 (105) 100 08/03/18 13:15 61 12 30 08/03/18 13:00 64 14 96/62 (73) 100 08/03/18 12:00 30 08/03/18 12:00 64 14 118/37 (64) 100 08/03/18 12:00 Mechanical Ventilator Mechanical Ventilator 08/03/18 12:00 58 08/03/18 11:00 67 19 133/59 (83) 100 08/03/18 10:49 58 12 30 Height (Feet): 5 Height (Inches): 2.00 Weight (Pounds): 125 HEENT: other - orally intubated Respiratory/Chest: rhonchi - bilaterally, other - on ventilator Cardiovascular: normal rate Abdomen: soft, non tender Extremities: no edema Skin: ulcers Neurologic/Psychiatric: alert, responsive Microbiology Date/Time Source Procedure Growth Status 08/02/18 17:30 Sputum Gram Stain - Final Complete 08/02/18 17:30 Sputum Culture - Final Megha Albicans Complete Laboratory Tests Test 08/03/18 19:55 Stool Occult Blood Pending Current Medications Medications (Trade) Dose Ordered Sig/Renetta Route PRN Reason Start Time Stop Time Status Last Admin Dose Admin Acetaminophen (Tylenol) 650 mg Q6H PRN ORAL Mild Pain/Temp > 100.5 08/02/18 14:15 09/01/18 14:14 Amiodarone HCl (Cordarone) 400 mg EVERY 12 HOURS ORAL 08/03/18 21:00 09/02/18 20:59 08/03/18 20:39 Chlorhexidine Gluconate (Rylie-Hex 2%) 1 applic DAILY@2000 TOPIC 07/26/18 20:00 08/25/18 19:59 08/03/18 20:38 Epoetin Paul (Procrit (for ESRD on dialysis)) 10,000 units WED-WED-WED SUBQ 07/27/18 21:00 08/26/18 20:59 08/03/18 20:39 Heparin Sodium (Porcine) (Heparin Sod 1000 units/ml 10ml) 2,000 unit ONCE ONCE IV 08/05/18 08:00 08/05/18 08:01 Linezolid (Zyvox) 600 mg EVERY 12 HOURS ORAL 07/27/18 21:00 08/06/18 20:59 08/04/18 09:10 Meropenem 500 mg/ Sodium Chloride 55 ml @ 110 mls/hr DAILY IVPB 07/27/18 12:00 08/06/18 11:59 08/04/18 09:07 Metoprolol Tartrate (Lopressor) 12.5 mg Q12HR ORAL 08/01/18 21:00 08/31/18 20:59 08/04/18 09:09 Minoxidil (Loniten) 5 mg Q12HR NG 07/31/18 21:00 08/30/18 20:59 08/04/18 09:08 Pantoprazole (Protonix) 40 mg Q12HR IVP 07/25/18 21:00 08/25/18 08:59 08/04/18 09:07 Sodium Chloride 1,000 ml @ 500 mls/hr Q2H PRN IVLG sbp<90 during hd 08/05/18 07:51 09/04/18 07:50 Freedom Randolph MD Aug 04, 2018 10:29
--- NOTE | 2018-08-04 11:05 | NUR ---
NURSE NOTES: Called Dr Sevilla [phone] spoke to Alida in regards to holding the amiodarone. Awaiting call back.
--- NOTE | 2018-08-04 11:10 | NUR ---
NURSE NOTES: Patient stopped weaning, patient is complaining that she cant breath and her blood pressure dropped. patient put back on original vent settings Ac 12, Tv 500, fio2 30%, peep 5, 02 saturation 100%. Bilateral arms are elevated and bilateral heels are elevated both with pillows. Head of bed is at 30 degrees, be is locked and in the lowest position, 3 side rails are up. Will continue to monitor patient and follow plan of care.
--- NOTE | 2018-08-04 11:14 | NUR ---
RESPIRATORY NOTE:placed pt back on previous vent settings due to pt complaining she can't breath and low bp. RN notified of changes. Will cont. to monitor pt.
--- NOTE | 2018-08-04 11:44 | NUR ---
NURSE NOTES: Dr. Sevilla called back new orders noted and carried out. Will continue to monitor patient and follow plan of care.
--- NOTE | 2018-08-04 13:10 | NUR ---
NURSE NOTES: Patient repositioned, patient suctioned with thick clear secretions, patient released from restraints. Patient is clean and comfortable, denies pain at this time, no acute distress noted. Head of bed is at 30 degrees, bed is locked and in the lowest position, bed alarm is on. Will continue to monitor patient and follow plan of care.
--- NOTE | 2018-08-04 14:03 | General Surgery Progress Note ---
General Surgery-Progress Note Subjective Procedure Performed left subclavian central venous catheter insertion Additional Comments awake and following commands. asking for ET tube removal Objective Last 24 Hour Vital Signs Date Time Temp Pulse Resp B/P (MAP) Pulse Ox O2 Delivery O2 Flow Rate FiO2 08/04/18 13:30 71 12 30 08/04/18 13:00 73 15 118/25 (56) 100 08/04/18 12:00 Mechanical Ventilator Mechanical Ventilator 08/04/18 12:00 74 20 96/23 (47) 100 08/04/18 12:00 30 08/04/18 12:00 73 08/04/18 11:10 79 18 30 08/04/18 11:10 100 08/04/18 11:00 82 20 81/63 (69) 100 08/04/18 10:00 81 21 90/60 (70) 100 08/04/18 09:40 78 16 30 08/04/18 09:09 70 108/93 08/04/18 09:08 108/93 08/04/18 09:00 70 15 108/93 (98) 100 08/04/18 08:00 Mechanical Ventilator Mechanical Ventilator 08/04/18 08:00 98.2 70 14 92/23 (46) 100 08/04/18 08:00 30 08/04/18 08:00 71 08/04/18 07:06 72 13 30 08/04/18 07:00 70 14 104/80 (88) 100 08/04/18 06:00 70 14 111/22 (51) 100 08/04/18 05:30 70 12 30 08/04/18 05:00 70 14 133/35 (67) 100 08/04/18 04:00 69 08/04/18 04:00 Mechanical Ventilator Mechanical Ventilator 08/04/18 04:00 99.0 71 14 144/11 (55) 100 08/04/18 04:00 30 08/04/18 03:30 71 12 30 08/04/18 03:00 70 14 133/66 (88) 100 08/04/18 02:00 71 15 123/11 (48) 100 08/04/18 01:30 70 12 30 08/04/18 01:00 99.8 68 15 121/24 (56) 100 08/04/18 00:00 68 15 136/87 (103) 100 08/04/18 00:00 68 12/6/18 00:00 Mechanical Ventilator Mechanical Ventilator 08/03/18 23:38 67 13 30 08/03/18 23:00 68 14 130/10 (50) 100 08/03/18 22:00 73 17 120/12 (48) 99 08/03/18 21:43 76 128/13 08/03/18 21:42 128/13 08/03/18 21:30 82 14 30 08/03/18 21:00 79 17 119/13 (48) 99 08/03/18 20:00 Mechanical Ventilator Mechanical Ventilator 08/03/18 20:00 99.0 79 17 142/20 (60) 99 08/03/18 20:00 76 08/03/18 20:00 30 08/03/18 19:30 84 15 30 08/03/18 19:00 79 17 161/20 (67) 99 08/03/18 18:00 98.2 68 15 /27 99 08/03/18 17:00 68 14 92/15 (40) 100 08/03/18 16:47 68 13 30 08/03/18 16:00 Mechanical Ventilator Mechanical Ventilator 08/03/18 16:00 67 08/03/18 16:00 30 08/03/18 16:00 67 14 70/54 (59) 99 08/03/18 15:00 66 14 91/77 (82) 100 08/03/18 14:54 64 12 30 I&O Intake and Output 08/03/18 08/04/18 19:00 07:00 Intake Total 1470 ml 480 ml Balance 1470 ml 480 ml Free Water 60 ml 120 ml IV Total 110 ml Tube Feeding 300 ml 360 ml Hemodialysis 1000 ml # Bowel Movements 1 Dressing: other Wound: other Drains: other Cardiovascular: RSR Respiratory: decreased breath sounds Abdomen: soft, flat, non-tender, present bowel sounds Extremities: other Laboratory Tests Test 08/03/18 19:55 Stool Occult Blood Negative (NEGATIVE) Plan Problems: (1) Sepsis Assessment & Plan: acute decompensation hypotensive bradycardic respiratory decompensation requiring intubation and vent support - failed extubation leukocytosis resolved cont current ICU care and management may need trach if unable to wean off went with history of failed extubation thank you will follow with recs (2) Hypotension (3) Bradycardia (4) Altered mental status (5) Decubital ulcer Assessment & Plan: Patient with multiple pressure injuries where have been present since admission. Full thickness pressure injury to sacrum (L)(L)2.4cm x (W)4.4cm x (D)0.9cm, undermining 12-12 with tunneling 9-10 by 11.3cm. In close proximity to sacral wound on L buttocks purple ,indurated area with small area of slough measuring (L)0.6cm x (W)0.5cm noted. Arched surgical scar noted to L buttocks at site of tunneling. Resolving pressure injury noted to R ischium (L)3cm x (W)2cm. Wound bed epithelialized with maroon discoloration without induration periwound. Closed area with white pocket and purple margins noted to distal,carmela R tibia (L)6cm x (W)2.7cm Full thickness wound noted to distal/medial RLE (L)6.2cm x (W)3.8cm .Wound noted to have 95% mixed slough /necrosis ,marginal erythema. Wound malodorous. Wound posterior R tibia (L)4.7cm x (W) 3cm ,100% necrotic with marginal erythema. Dry eschar with marginal erythema (L)0.5cm x (W)0.7cm noted to medial R heel.Non-blanchable erythema noted to medial L malleolus. Dry brown eschar noted to medial L 1st malleolus (L)1.4cm x (W)1cm. L heel and lateral aspect boggy with non-blanchable erythema. Tx.Plan: Cleanse sacral wound with Saline.Loose pack with Hydrogel impregnated packing strip (Attention to tunneled area at 9-10).Cover with Optifoam drsg Daily and prn. Reposition at least every 2hours or as tolerated. Air Fluidized mattress. Off-load heels with pillow. Appreciate Podiatry and Vascular input Plan for anigo late by Vascular Reji Nails Aug 04, 2018 14:03
[2018-08-04] MEDS: Amiodarone 200mg tab NG SCH ×2 (14:08→22:41)
[2018-08-04] MEDS ORDERED: NS 275ml ONE (15:10)
[2018-08-04] MEDS ORDERED: D5 1/2NS 1000ml IV ONE (15:10)
--- NOTE | 2018-08-04 15:10 | NUR ---
NURSE NOTES: Patient repositioned, oral care given, No acute distress noted. Head of bed is at 30 degrees, bed is locked, bed alarm is on, 3 side rails are up. Will continue to monitor patient and follow plan of care.
--- NOTE | 2018-08-04 15:38 | Podiatric Progress Note ---
Assessment/Plan Patient Kelsi Montana is a 78 year old female who was admitted on Jul 25, 2018 at 10 :32 with Problems: (1) ESRD (end stage renal disease) (2) Decubital ulcer (3) Pneumonia (4) Pyelonephritis (5) Altered mental status Assessment/Plan R posterior leg wound and medial ankle wound was excisionally debrided the wound utilizing sharp debridement. Patient tolerated the procedure. continue local wound care cleanse with NS and application Santyl. Subjective Allergies: Coded Allergies: No Known Allergies (Unverified , 07/25/18) Subjective patient was seen at the bed side in NAD f/u b/l lower extremity wounds. Patient is afebrile WBC is wnl. Patient was consulted for vascular procedure but was differed for now due to patients current condition and her status in ICU. Local wound care is recommended. Objective Exam Last 24 Hour Vital Signs Date Time Temp Pulse Resp B/P (MAP) Pulse Ox O2 Delivery O2 Flow Rate FiO2 08/04/18 13:30 71 12 30 08/04/18 13:00 73 15 118/25 (56) 100 08/04/18 12:00 Mechanical Ventilator Mechanical Ventilator 08/04/18 12:00 74 20 96/23 (47) 100 08/04/18 12:00 30 08/04/18 12:00 73 08/04/18 11:10 79 18 30 08/04/18 11:10 100 08/04/18 11:00 82 20 81/63 (69) 100 08/04/18 10:00 81 21 90/60 (70) 100 08/04/18 09:40 78 16 30 08/04/18 09:09 70 108/93 08/04/18 09:08 108/93 08/04/18 09:00 70 15 108/93 (98) 100 08/04/18 08:00 Mechanical Ventilator Mechanical Ventilator 08/04/18 08:00 98.2 70 14 92/23 (46) 100 08/04/18 08:00 30 08/04/18 08:00 71 08/04/18 07:06 72 13 30 08/04/18 07:00 70 14 104/80 (88) 100 08/04/18 06:00 70 14 111/22 (51) 100 08/04/18 05:30 70 12 30 08/04/18 05:00 70 14 133/35 (67) 100 08/04/18 04:00 69 08/04/18 04:00 Mechanical Ventilator Mechanical Ventilator 08/04/18 04:00 99.0 71 14 144/11 (55) 100 08/04/18 04:00 30 08/04/18 03:30 71 12 30 08/04/18 03:00 70 14 133/66 (88) 100 08/04/18 02:00 71 15 123/11 (48) 100 08/04/18 01:30 70 12 30 08/04/18 01:00 99.8 68 15 121/24 (56) 100 08/04/18 00:00 68 15 136/87 (103) 100 08/04/18 00:00 68 08/04/18 00:00 Mechanical Ventilator Mechanical Ventilator 08/03/18 23:38 67 13 30 08/03/18 23:00 68 14 130/10 (50) 100 08/03/18 22:00 73 17 120/12 (48) 99 08/03/18 21:43 76 128/13 08/03/18 21:42 128/13 08/03/18 21:30 82 14 30 08/03/18 21:00 79 17 119/13 (48) 99 08/03/18 20:00 Mechanical Ventilator Mechanical Ventilator 08/03/18 20:00 99.0 79 17 142/20 (60) 99 08/03/18 20:00 76 08/03/18 20:00 30 08/03/18 19:30 84 15 30 08/03/18 19:00 79 17 161/20 (67) 99 08/03/18 18:00 98.2 68 15 /27 99 08/03/18 17:00 68 14 92/15 (40) 100 08/03/18 16:47 68 13 30 08/03/18 16:00 Mechanical Ventilator Mechanical Ventilator 08/03/18 16:00 67 08/03/18 16:00 30 08/03/18 16:00 67 14 70/54 (59) 99 Laboratory Tests Test 08/03/18 19:55 Stool Occult Blood Negative (NEGATIVE) Microbiology Date/Time Source Procedure Growth Status 07/25/18 08:45 Blood Blood Culture - Final NO GROWTH AFTER 5 DAYS Complete 07/27/18 11:40 Other(Specify in comment) Gram Stain - Final Complete 07/27/18 11:40 Wound Culture - Final Pseudomonas Aeruginosa Megha Albicans Complete 08/02/18 17:30 Sputum Gram Stain - Final Complete 08/02/18 17:30 Sputum Culture - Final Megha Albicans Complete 07/25/18 08:30 Urine,Clean Catch Urine Culture - Final Escherichia Coli - Esbl Enterococcus Faecium - Vre Complete 07/27/18 11:40 Sacral Wound Gram Stain - Final Complete 07/27/18 11:40 Wound Culture - Final Staphylococcus Aureus - Mrsa Megha Albicans Complete Dermatological Dermatological Narrative Ulceration is noted to anterior R fisher. fibrous tissue is noted. no drainage or discharge, no pus or odor stable. Ulceration noted posterior aspect of the R leg. Black fibrotic tissue noted. 50/ 50 pink not beefy base. no drainage or discharge. extended to subq Ulceration R ankle probs to bone think fibrotic tissue with periwound erythema. non granulating pink rim is seen consisted with arterial ulceration. no drainage or discharge is seen no sign of infection is noted. no cellulitis. Ulceration noted to the Medial aspect of the L heel dry scab, no sign of drainage or discharge noted. Negro Rodriguez DPM Aug 04, 2018 15:38
--- NOTE | 2018-08-04 16:58 | NUR ---
CASE MANAGEMENT: REVIEW SI: A-FIB . SEPSIS . ESRD ON HD MWF . ORALLY INTUBATED T 98.2 HR 70 RR 14 BP 92/23 SAT 100% MECH VENT FIO2 30 IS: MEROPENEM IV QD ZYVOX PO QD NGT FEEDING NEPRO @10ML/HR ICU STATUS DCP: PATIENT IS FROM [facility]
--- NOTE | 2018-08-04 17:19 | NUR ---
NURSE NOTES: Patient repositioned, orally suctioned, No change in condition. No acute distress noted. Nepro at 30ml, no residual noted. Head of be is at 30 degrees, bed is locked and in the lowest position, 3 side rails are up. Bilateral arms are elevated, bilateral legs are elevated both with pillows. Will continue to monitor patient and follow plan of care.
--- NOTE | 2018-08-04 18:50 | NUR ---
NURSE NOTES: Patient had a bowel movement, patient cleaned. patient does not want blood pressure cuff to be on, patient is constantly refusing bp cuff and restraints. patient has been educated on the importance of both Bp, and restraints. No change of condition, No acute distress noted. Bilateral arms elevated with pillows, bilateral legs with pillows. Head of bed is at 30 degrees, bed alarm is on, bed is locked and in its lowest position. Will continue to monitor patient and follow plan of care.
--- NOTE | 2018-08-04 19:06 | NUR ---
HAND-OFF: Report given to BALDO Messina. No change in condition.
--- NOTE | 2018-08-04 20:00 | NUR ---
NURSE NOTES: Received from BALDO Pro. Patient awake, opens eyes spontaneously. Able to Communicate by writing. Orally intubated with ET 7.5, 23 lip line. AC 12 Vt 500 PEEP 5 FiO2 30%. FLACO midline. On bilateral soft wrist restraints present. With AV shunt at left arm. Contact per cautions, On SPR mattress. Bed locked and in low position. Head of bed elevated. Call light within reach. No signs of distress noted. Will continue to monitor.
[2018-08-04] MEDS: Dyna-Hex 2% Top Sol 2oz TOPIC SCH (20:07)
--- NOTE | 2018-08-04 20:42 | Cardiology Progress Note ---
Assessment/Plan Assessment/Plan 1. Hypotension, possibly sepsis versus volume. 2. Paroxysmal episodes of atrial fibrillation history. 3. Bradycardia secondary to medications, amiodarone possibly. 4. Diabetes mellitus. 5. End-stage renal disease, on hemodialysis. 6. Lung collapse. 7. Respiratory failure, status post intubation. 8. Dysphagia. 9. History of dementia. 10. Pulm htn 11. Pleural effusion in and out afib amido now 200 tid tele reviewed stool ob neg x2 now sinus increase amiod for a few days Subjective ROS Limited/Unobtainable: Yes Subjective on the vent not verbal but communicates with head motion Objective Last 24 Hour Vital Signs Date Time Temp Pulse Resp B/P (MAP) Pulse Ox O2 Delivery O2 Flow Rate FiO2 08/04/18 20:00 30 08/04/18 20:00 Mechanical Ventilator 08/04/18 19:29 75 12 30 08/04/18 18:00 97.7 73 15 106/16 (46) 100 08/04/18 17:00 75 15 109/90 (96) 100 08/04/18 16:30 74 12 30 08/04/18 16:00 Mechanical Ventilator Mechanical Ventilator 08/04/18 16:00 65 12 101/17 (45) 100 08/04/18 16:00 73 08/04/18 16:00 30 08/04/18 15:00 72 15 118/98 (105) 100 08/04/18 14:30 75 14 30 08/04/18 14:00 71 15 74/55 (61) 100 08/04/18 13:30 71 12 30 08/04/18 13:00 73 15 118/25 (56) 100 08/04/18 12:00 Mechanical Ventilator Mechanical Ventilator 08/04/18 12:00 74 20 96/23 (47) 100 08/04/18 12:00 30 08/04/18 12:00 73 08/04/18 11:10 79 18 30 08/04/18 11:10 100 08/04/18 11:00 82 20 81/63 (69) 100 08/04/18 10:00 81 21 90/60 (70) 100 08/04/18 09:40 78 16 30 08/04/18 09:09 70 108/93 08/04/18 09:08 108/93 08/04/18 09:00 70 15 108/93 (98) 100 08/04/18 08:00 Mechanical Ventilator Mechanical Ventilator 08/04/18 08:00 98.2 70 14 92/23 (46) 100 08/04/18 08:00 30 08/04/18 08:00 71 08/04/18 07:06 72 13 30 08/04/18 07:00 70 14 104/80 (88) 100 08/04/18 06:00 70 14 111/22 (51) 100 08/04/18 05:30 70 12 30 08/04/18 05:00 70 14 133/35 (67) 100 08/04/18 04:00 69 08/04/18 04:00 Mechanical Ventilator Mechanical Ventilator 08/04/18 04:00 99.0 71 14 144/11 (55) 100 08/04/18 04:00 30 08/04/18 03:30 71 12 30 08/04/18 03:00 70 14 133/66 (88) 100 08/04/18 02:00 71 15 123/11 (48) 100 08/04/18 01:30 70 12 30 08/04/18 01:00 99.8 68 15 121/24 (56) 100 08/04/18 00:00 68 15 136/87 (103) 100 08/04/18 00:00 68 08/04/18 00:00 Mechanical Ventilator Mechanical Ventilator 08/03/18 23:38 67 13 30 08/03/18 23:00 68 14 130/10 (50) 100 08/03/18 22:00 73 17 120/12 (48) 99 08/03/18 21:43 76 128/13 08/03/18 21:42 128/13 08/03/18 21:30 82 14 30 08/03/18 21:00 79 17 119/13 (48) 99 Intake and Output 08/03/18 08/04/18 19:00 07:00 Intake Total 1470 ml 480 ml Balance 1470 ml 480 ml Free Water 60 ml 120 ml IV Total 110 ml Tube Feeding 300 ml 360 ml Hemodialysis 1000 ml # Bowel Movements 1 Microbiology Date/Time Source Procedure Growth Status 08/02/18 17:30 Sputum Gram Stain - Final Complete 08/02/18 17:30 Sputum Culture - Final Megha Albicans Complete Angelo Butler MD Aug 04, 2018 20:42
--- NOTE | 2018-08-04 22:00 | NUR ---
NURSE NOTES: Oral care , turned and repositioned at this time. No signs of distress noted. Will continue to monitor.
[2018-08-05] VITALS (24 sets, daily range): BP systolic 90–145; BP diastolic 12–68
--- NOTE | 2018-08-05 | NUR ---
NURSE NOTES: Pt sleeping at this time. Turned and repositioned. Tolerating current vent settings. No signs of distress noted. Will continue to monitor.
--- NOTE | 2018-08-05 02:00 | NUR ---
NURSE NOTES: Pt able to communicate through writing. states she wants to call her son. Made her aware of time and son will be paged in the morning.
--- NOTE | 2018-08-05 04:00 | NUR ---
NURSE NOTES: Morning care provided at this time. Wound care done. Turned and repositioned at this time. No signs of distress noted. Will continue with plan of care.
[2018-08-05] MEDS: Amiodarone 200mg tab NG SCH ×3 (05:15→21:28)
[2018-08-05 05:30] LABS: EOSINOPHILS % (AUTO) 2.3 % (0.0-3.0); LYMPHOCYTES % (AUTO) 11.6 % (20.0-45.0); MEAN CORPUSCULAR VOLUME 94 FL (80-99); MONOCYTES % (AUTO) 8.9 % (1.0-10.0); NEUTROPHILS % (AUTO) 76.1 % (45.0-75.0); PLATELET COUNT 233 K/UL (150-450); RED BLOOD COUNT 3.51 M/UL (4.20-5.40); RED CELL DISTRIBUTION WIDTH 19.4 % (11.6-14.8); WHITE BLOOD COUNT 6.1 K/UL (4.8-10.8)
--- NOTE | 2018-08-05 05:30 | NUR ---
NURSE NOTES: All meds given at this time. Pt comfortable. Denies any pain or discomfort. Will continue to monitor.
[2018-08-05 05:54] LABS: ALANINE AMINOTRANSFERASE < 6 U/L (12-78); ALBUMIN 1.5 G/DL (3.4-5.0); ALBUMIN/GLOBULIN RATIO 0.3 (1.0-2.7); ALKALINE PHOSPHATASE 98 U/L (46-116); ANION GAP 8 mmol/L (5-15); ASPARTATE AMINO TRANSFERASE 19 U/L (15-37); BILIRUBIN,TOTAL 0.3 MG/DL (0.2-1.0); BLOOD UREA NITROGEN 44 mg/dL (7-18); CALCIUM 8.8 MG/DL (8.5-10.1); CARBON DIOXIDE 30 MMOL/L (21-32); CHLORIDE 102 MMOL/L (98-107); CREATININE 3.1 MG/DL (0.55-1.30); SODIUM 140 MMOL/L (136-145)
--- NOTE | 2018-08-05 07:02 | NUR ---
RESPIRATORY NOTE: received pt awake, alert and responsive. intubated with 7.5 ETT at 23cm at the lip. made aware that pt will be weaning today. pt on current vent settings; ac 12 500 30% +5 with alarms on and audible and set appropriately. vent plugged into red outlet with ambu bag at bedside. will cont to monitor.
--- NOTE | 2018-08-05 07:29 | NUR ---
HAND-OFF: Report given to Ani RN using SBAR. VS Stable.
--- NOTE | 2018-08-05 07:42 | Pulmonology Progress Note ---
Assessment/Plan Assessment/Plan 1. Hypotension. 2. Sepsis. 3. Atrial fibrillation. 4. Bradycardia. 5. Diabetes mellitus. 6. End-stage renal disease on dialysis. 7. Left lung collapse. s/p bronchoscopy 8. Respiratory failure, acute 9. Dysphagia. 10. Dementia. 11. Anemia 12. Pneumonia PLAN respiratory care try to wean monitor imaging oxygen aspiration precautions keep negative supportive care will follow up and recommend impression, plan, and exam edited and reviewed in detail care discussed with RN medications/laboratory data/nursing notes/ICU care reviewed in detail note reviewed and edited care discussed with RN and RT ICU time spent 40 minutes Subjective ROS Limited/Unobtainable: Yes Allergies: Coded Allergies: No Known Allergies (Unverified , 07/25/18) Subjective care noted and reviewed no distress at present s/p bronchoscopy Objective Last 24 Hour Vital Signs Date Time Temp Pulse Resp B/P (MAP) Pulse Ox O2 Delivery O2 Flow Rate FiO2 08/05/18 07:01 65 12 30 08/05/18 07:00 67 16 126/12 (50) 100 08/05/18 06:00 65 16 131/24 (59) 100 08/05/18 05:29 65 12 30 08/05/18 05:00 76 16 129/61 (83) 100 08/05/18 04:00 67 08/05/18 04:00 66 13 122/30 (60) 100 08/05/18 04:00 30 08/05/18 04:00 Mechanical Ventilator 08/05/18 03:40 69 12 30 08/05/18 03:00 70 12 125/19 (54) 100 08/05/18 02:00 70 14 142/43 (76) 100 08/05/18 01:05 70 13 30 08/05/18 01:00 70 13 138/29 (65) 100 08/05/18 00:00 Mechanical Ventilator 08/05/18 00:00 30 08/05/18 00:00 65 08/05/18 00:00 98.3 68 16 145/24 (64) 100 08/04/18 23:00 63 12 130/33 (65) 100 08/04/18 22:37 62 12 30 08/04/18 22:00 63 12 137/33 (67) 100 08/04/18 21:00 73 15 128/20 (56) 100 08/04/18 20:54 71 128/20 18 20:50 128/20 08/04/18 20:44 74 16 30 08/04/18 20:00 98.1 74 15 111/35 (60) 100 08/04/18 20:00 30 08/04/18 20:00 74 08/04/18 20:00 Mechanical Ventilator 08/04/18 19:29 75 12 30 08/04/18 19:00 74 16 101/16 (44) 100 08/04/18 18:00 97.7 73 15 106/16 (46) 100 08/04/18 17:00 75 15 109/90 (96) 100 08/04/18 16:30 74 12 30 08/04/18 16:00 Mechanical Ventilator Mechanical Ventilator 08/04/18 16:00 65 12 101/17 (45) 100 08/04/18 16:00 73 08/04/18 16:00 30 08/04/18 15:00 72 15 118/98 (105) 100 08/04/18 14:30 75 14 30 08/04/18 14:00 71 15 74/55 (61) 100 08/04/18 13:30 71 12 30 08/04/18 13:00 73 15 118/25 (56) 100 08/04/18 12:00 Mechanical Ventilator Mechanical Ventilator 08/04/18 12:00 74 20 96/23 (47) 100 08/04/18 12:00 30 08/04/18 12:00 73 08/04/18 11:10 79 18 30 08/04/18 11:10 100 08/04/18 11:00 82 20 81/63 (69) 100 08/04/18 10:00 81 21 90/60 (70) 100 08/04/18 09:40 78 16 30 08/04/18 09:09 70 108/93 08/04/18 09:08 108/93 08/04/18 09:00 70 15 108/93 (98) 100 08/04/18 08:00 Mechanical Ventilator Mechanical Ventilator 08/04/18 08:00 98.2 70 14 92/23 (46) 100 08/04/18 08:00 30 08/04/18 08:00 71 Intake and Output 08/04/18 08/05/18 19:00 07:00 Intake Total 500 ml 360 ml Balance 500 ml 360 ml Free Water 30 ml IV Total 110 ml Tube Feeding 360 ml 360 ml # Bowel Movements 2 Objective WDWN NAD intubated aware reduced breath sounds bilaterally without rhonchi or wheeze [id number] without MRG NABS nontender no HSM no CCE cachectic nonfocal Microbiology Date/Time Source Procedure Growth Status 08/02/18 17:30 Sputum Gram Stain - Final Complete 08/02/18 17:30 Sputum Culture - Final Megha Albicans Complete Laboratory Tests 08/05/18 04:15: White Blood Count 6.1, Red Blood Count 3.51L, Hemoglobin 10.0L, Hematocrit 33.0L , Mean Corpuscular Volume 94, Mean Corpuscular Hemoglobin 28.5, Mean Corpuscular Hemoglobin Concent 30.3L, Red Cell Distribution Width 19.4H, Platelet Count 233, Mean Platelet Volume 6.0L, Neutrophils (%) (Auto) 76.1H, Lymphocytes (%) (Auto) 11.6L, Monocytes (%) (Auto) 8.9, Eosinophils (%) (Auto) 2.3, Basophils (%) (Auto) 1.0, Sodium Level 140, Potassium Level 3.0L, Chloride Level 102, Carbon Dioxide Level 30, Anion Gap 8, Blood Urea Nitrogen 44H, Creatinine 3.1H, Estimat Glomerular Filtration Rate , Glucose Level 117H, Calcium Level 8.8, Total Bilirubin 0.3, Aspartate Amino Transf (AST/SGOT) 19, Alanine Aminotransferase (ALT/SGPT) < 6L, Alkaline Phosphatase 98, Total Protein 6.8, Albumin 1.5L, Globulin 5.3, Albumin/Globulin Ratio 0.3L Current Medications Medications (Trade) Dose Ordered Sig/Renetta Route PRN Reason Start Time Stop Time Status Last Admin Dose Admin Acetaminophen (Tylenol) 650 mg Q6H PRN ORAL Mild Pain/Temp > 100.5 08/02/18 14:15 09/01/18 14:14 08/04/18 20:11 Amiodarone HCl (Cordarone) 200 mg EVERY 8 HOURS NG 08/04/18 14:00 09/03/18 13:59 08/05/18 05:15 Chlorhexidine Gluconate (Rylie-Hex 2%) 1 applic DAILY@1999 TOPIC 07/26/18 20:00 08/25/18 19:59 08/04/18 20:07 Collagenase (Santyl) 1 applic QHS TOPIC 08/04/18 21:00 09/03/18 20:59 08/04/18 20:57 Epoetin Paul (Procrit (for ESRD on dialysis)) 10,000 units WED-WED-WED SUBQ 07/27/18 21:00 08/26/18 20:59 08/03/18 20:39 Heparin Sodium (Porcine) (Heparin Sod 1000 units/ml 10ml) 2,000 unit ONCE ONCE IV 08/05/18 08:00 08/05/18 08:01 Linezolid (Zyvox) 600 mg EVERY 12 HOURS ORAL 07/27/18 21:00 08/06/18 20:59 08/04/18 20:50 Meropenem 500 mg/ Sodium Chloride 55 ml @ 110 mls/hr DAILY IVPB 07/27/18 12:00 08/06/18 11:59 08/04/18 09:07 Metoprolol Tartrate (Lopressor) 12.5 mg Q12HR ORAL 08/01/18 21:00 08/31/18 20:59 08/04/18 20:54 Minoxidil (Loniten) 5 mg Q12HR NG 07/31/18 21:00 08/30/18 20:59 08/04/18 20:50 Pantoprazole (Protonix) 40 mg Q12HR IVP 07/25/18 21:00 08/25/18 08:59 08/04/18 20:48 Sodium Chloride 1,000 ml @ 500 mls/hr Q2H PRN IVLG sbp<90 during hd 08/05/18 07:51 09/04/18 07:50 Quan Robles MD Aug 05, 2018 07:42
[2018-08-05] MEDS ORDERED: Heparin Sod 1000 units/ml 10ml IV ONE (08:00)
--- NOTE | 2018-08-05 08:00 | NUR ---
NURSE NOTES: Received patient alert & oriented x3. Able to make needs known by writing it or pointing. pole sander operator showing SR. Patient is intubated 7.5/23 cm LL AC 12 VT 500 FiO2 30% Peep of 5. Lung sounds diminished bilaterally. Soft, round abdomen, non-tender. Hypoactive bowel sounds present on all 4 quadrants. Patient has an OGT Nepro at 30 cc/hr. Dialysis scheduled for today. L AV shunt. R midline. patent flushing. Poassium reported to MD. Order obtained for weaning trial. Patient verbalizes understanding to cooperate with weaning. Bilateral soft wrist restraints on. No discoloration or edema noted related to restraints. Bed on lowest position. HOB elevated, call light within reach, bed alarm on for safety. Will continue to monitor patient.
--- NOTE | 2018-08-05 08:36 | NUR ---
RESPIRATORY NOTE: started to wean pt at 0830 with CPAP PS8, fio2 30%. vitals are WNL. will cont to monitor
[2018-08-05] MEDS: Metoprolol Tartrate 12.5mg TAB ORAL SCH ×2 (09:00→20:26)
--- NOTE | 2018-08-05 09:05 | Nephrology Progress Note ---
Assessment/Plan Assessment Seee below Plan MOF, improving slowly. Sepsis due to infected diabetic ulcers. On IV Abx. Followed by ID, Vasc. Sx, Podiatry. Septic Shock pressors PRN ESRD HD q MWF Anemia of CKD , DARRYN high dose. Transfuse PRN. Resp Failure - Vent per Pul. Trying to wean. REGINALDO Allan. A. 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 with LAE. LVEF 65% . Anticoagulate when stable. REGINALDO Butler. In and out A. Fib. If un weanable will need Trach + PEG ------> Subacute DW pt's son @ bedside. Subjective Subjective Awake + alert. No c/o Objective Objective Last 24 Hour Vital Signs Date Time Temp Pulse Resp B/P (MAP) Pulse Ox O2 Delivery O2 Flow Rate FiO2 08/05/18 08:34 73 19 30 08/05/18 08:33 100 08/05/18 07:01 65 12 30 08/05/18 07:00 67 16 126/12 (50) 100 08/05/18 06:00 65 16 131/24 (59) 100 08/05/18 05:29 65 12 30 08/05/18 05:00 76 16 129/61 (83) 100 08/05/18 04:00 67 08/05/18 04:00 66 13 122/30 (60) 100 08/05/18 04:00 30 08/05/18 04:00 Mechanical Ventilator 08/05/18 03:40 69 12 30 08/05/18 03:00 70 12 125/19 (54) 100 08/05/18 02:00 70 14 142/43 (76) 100 08/05/18 01:05 70 13 30 08/05/18 01:00 70 13 138/29 (65) 100 08/05/18 00:00 Mechanical Ventilator 08/05/18 00:00 30 08/05/18 00:00 65 08/05/18 00:00 98.3 68 16 145/24 (64) 100 08/04/18 23:00 63 12 130/33 (65) 100 08/04/18 22:37 62 12 30 08/04/18 22:00 63 12 137/33 (67) 100 08/04/18 21:00 73 15 128/20 (56) 100 08/04/18 20:54 71 128/20 18 20:50 128/20 08/04/18 20:44 74 16 30 08/04/18 20:00 98.1 74 15 111/35 (60) 100 08/04/18 20:00 30 08/04/18 20:00 74 08/04/18 20:00 Mechanical Ventilator 08/04/18 19:29 75 12 30 08/04/18 19:00 74 16 101/16 (44) 100 08/04/18 18:00 97.7 73 15 106/16 (46) 100 08/04/18 17:00 75 15 109/90 (96) 100 08/04/18 16:30 74 12 30 08/04/18 16:00 Mechanical Ventilator Mechanical Ventilator 08/04/18 16:00 65 12 101/17 (45) 100 08/04/18 16:00 73 08/04/18 16:00 30 08/04/18 15:00 72 15 118/98 (105) 100 08/04/18 14:30 75 14 30 08/04/18 14:00 71 15 74/55 (61) 100 08/04/18 13:30 71 12 30 08/04/18 13:00 73 15 118/25 (56) 100 08/04/18 12:00 Mechanical Ventilator Mechanical Ventilator 08/04/18 12:00 74 20 96/23 (47) 100 08/04/18 12:00 30 08/04/18 12:00 73 08/04/18 11:10 79 18 30 08/04/18 11:10 100 08/04/18 11:00 82 20 81/63 (69) 100 08/04/18 10:00 81 21 90/60 (70) 100 08/04/18 09:40 78 16 30 08/04/18 09:09 70 108/93 08/04/18 09:08 108/93 Intake and Output 08/04/18 08/05/18 19:00 07:00 Intake Total 500 ml 360 ml Balance 500 ml 360 ml Free Water 30 ml IV Total 110 ml Tube Feeding 360 ml 360 ml # Bowel Movements 2 Laboratory Tests 08/05/18 04:15: White Blood Count 6.1, Red Blood Count 3.51L, Hemoglobin 10.0L, Hematocrit 33.0L , Mean Corpuscular Volume 94, Mean Corpuscular Hemoglobin 28.5, Mean Corpuscular Hemoglobin Concent 30.3L, Red Cell Distribution Width 19.4H, Platelet Count 233, Mean Platelet Volume 6.0L, Neutrophils (%) (Auto) 76.1H, Lymphocytes (%) (Auto) 11.6L, Monocytes (%) (Auto) 8.9, Eosinophils (%) (Auto) 2.3, Basophils (%) (Auto) 1.0, Sodium Level 140, Potassium Level 3.0L, Chloride Level 102, Carbon Dioxide Level 30, Anion Gap 8, Blood Urea Nitrogen 44H, Creatinine 3.1H, Estimat Glomerular Filtration Rate , Glucose Level 117H, Calcium Level 8.8, Total Bilirubin 0.3, Aspartate Amino Transf (AST/SGOT) 19, Alanine Aminotransferase (ALT/SGPT) < 6L, Alkaline Phosphatase 98, Total Protein 6.8, Albumin 1.5L, Globulin 5.3, Albumin/Globulin Ratio 0.3L Height (Feet): 5 Height (Inches): 2.00 Weight (Pounds): 123 Objective Intubated, On vent. BP measured more accurately with a smaller cuff placed on rt. FA. Cv IRR/IRR Lungs B ronchi. Abd SNT. BS + E Rt. foot diabetic ulcers with pus Chase He MD Aug 05, 2018 09:05
[2018-08-05] MEDS: Pantoprazole Inj IVP SCH ×2 (09:16→20:19)
[2018-08-05] MEDS: Meropenem 500 MG in NS 55 ML IVPB SCH (09:16)
[2018-08-05] MEDS: Minoxidil 2.5mg tab NG SCH ×2 (09:16→20:26)
--- NOTE | 2018-08-05 09:54 | NUR ---
RESPIRATORY NOTE: pt wanted to relax, placed back on AC mode at 0944. RN notified.
--- NOTE | 2018-08-05 10:00 | NUR ---
NURSE NOTES: Patient turned and repositioned. Denies pain or discomfort at the time. Son at bedside. Educated on restraint removal. Patient verbalized understanding. No longer restrained. MD aware. Will continue to monitor patient
--- NOTE | 2018-08-05 10:42 | Infectious Diseases Prog Note ---
"Assessment/Plan Assessment/Plan antibiotics : linezolid, meropenem A 1. VRE | e.coli UTI 2. shock resolved 3. leucocytosis resolved 4. respiratory failure 5. renal failure 6. 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 pleural effusion P 1. continue meropenem 2. d/c linezolid 3. will follow up cultures Subjective ROS Limited/Unobtainable: Yes Allergies: Coded Allergies: No Known Allergies (Unverified , 07/25/18) Objective Vital Signs Last 24 Hour Vital Signs Date Time Temp Pulse Resp B/P (MAP) Pulse Ox O2 Delivery O2 Flow Rate FiO2 08/05/18 10:00 87 16 125/64 (84) 100 08/05/18 09:45 30 08/05/18 09:16 128/68 08/05/18 09:00 96 16 128/68 (88) 100 08/05/18 09:00 78 128/58 08/05/18 08:34 73 19 30 08/05/18 08:33 100 08/05/18 08:00 98.8 82 16 103/34 (57) 100 08/05/18 08:00 30 08/05/18 08:00 Mechanical Ventilator 08/05/18 08:00 88 08/05/18 07:01 65 12 30 08/05/18 07:00 67 16 126/12 (50) 100 08/05/18 06:00 65 16 131/24 (59) 100 08/05/18 05:29 65 12 30 08/05/18 05:00 76 16 129/61 (83) 100 08/05/18 04:00 67 08/05/18 04:00 66 13 122/30 (60) 100 08/05/18 04:00 30 08/05/18 04:00 Mechanical Ventilator 08/05/18 03:40 69 12 30 08/05/18 03:00 70 12 125/19 (54) 100 08/05/18 02:00 70 14 142/43 (76) 100 08/05/18 01:05 70 13 30 08/05/18 01:00 70 13 138/29 (65) 100 08/05/18 00:00 Mechanical Ventilator 08/05/18 00:00 30 08/05/18 00:00 65 12/7/18 00:00 98.3 68 16 145/24 (64) 100 08/04/18 23:00 63 12 130/33 (65) 100 08/04/18 22:37 62 12 30 08/04/18 22:00 63 12 137/33 (67) 100 08/04/18 21:00 73 15 128/20 (56) 100 08/04/18 20:54 71 128/20 08/04/18 20:50 128/20 08/04/18 20:44 74 16 30 08/04/18 20:00 98.1 74 15 111/35 (60) 100 08/04/18 20:00 30 08/04/18 20:00 74 08/04/18 20:00 Mechanical Ventilator 08/04/18 19:29 75 12 30 08/04/18 19:00 74 16 101/16 (44) 100 08/04/18 18:00 97.7 73 15 106/16 (46) 100 08/04/18 17:00 75 15 109/90 (96) 100 08/04/18 16:30 74 12 30 08/04/18 16:00 Mechanical Ventilator Mechanical Ventilator 08/04/18 16:00 65 12 101/17 (45) 100 08/04/18 16:00 73 08/04/18 16:00 30 08/04/18 15:00 72 15 118/98 (105) 100 08/04/18 14:30 75 14 30 08/04/18 14:00 71 15 74/55 (61) 100 08/04/18 13:30 71 12 30 08/04/18 13:00 73 15 118/25 (56) 100 08/04/18 12:00 Mechanical Ventilator Mechanical Ventilator 08/04/18 12:00 74 20 96/23 (47) 100 08/04/18 12:00 30 08/04/18 12:00 73 08/04/18 11:10 79 18 30 08/04/18 11:10 100 08/04/18 11:00 82 20 81/63 (69) 100 Height (Feet): 5 Height (Inches): 2.00 Weight (Pounds): 123 HEENT: other - intubated Respiratory/Chest: lungs clear Cardiovascular: normal rate, regular rhythm, no gallop/murmur Abdomen: soft, non tender Extremities: no edema, other - right arm PICC Microbiology Date/Time Source Procedure Growth Status 08/02/18 17:30 Sputum Gram Stain - Final Complete 08/02/18 17:30 Sputum Culture - Final Megha Albicans Complete Laboratory Tests Test 08/05/18 04:15 White Blood Count 6.1 K/UL (4.8-10.8) Red Blood Count 3.51 M/UL (4.20-5.40) L Hemoglobin 10.0 G/DL (12.0-16.0) L Hematocrit 33.0 % (37.0-47.0) L Mean Corpuscular Volume 94 FL (80-99) Mean Corpuscular Hemoglobin 28.5 PG (27.0-31.0) Mean Corpuscular Hemoglobin Concent 30.3 G/DL (32.0-36.0) L Red Cell Distribution Width 19.4 % (11.6-14.8) H Platelet Count 233 K/UL (150-450) Mean Platelet Volume 6.0 FL (6.5-10.1) L Neutrophils (%) (Auto) 76.1 % (45.0-75.0) H Lymphocytes (%) (Auto) 11.6 % (20.0-45.0) L Monocytes (%) (Auto) 8.9 % (1.0-10.0) Eosinophils (%) (Auto) 2.3 % (0.0-3.0) Basophils (%) (Auto) 1.0 % (0.0-2.0) Sodium Level 140 MMOL/L (136-145) Potassium Level 3.0 MMOL/L (3.5-5.1) L Chloride Level 102 MMOL/L (98-107) Carbon Dioxide Level 30 MMOL/L (21-32) Anion Gap 8 mmol/L (5-15) Blood Urea Nitrogen 44 mg/dL (7-18) H Creatinine 3.1 MG/DL (0.55-1.30) H Estimat Glomerular Filtration Rate mL/min (>60) Glucose Level 117 MG/DL (74-106) H Calcium Level 8.8 MG/DL (8.5-10.1) Total Bilirubin 0.3 MG/DL (0.2-1.0) Aspartate Amino Transf (AST/SGOT) 19 U/L (15-37) Alanine Aminotransferase (ALT/SGPT) < 6 U/L (12-78) L Alkaline Phosphatase 98 U/L (46-116) Total Protein 6.8 G/DL (6.4-8.2) Albumin 1.5 G/DL (3.4-5.0) L Globulin 5.3 g/dL Albumin/Globulin Ratio 0.3 (1.0-2.7) L Current Medications Medications (Trade) Dose Ordered Sig/Renetta Route PRN Reason Start Time Stop Time Status Last Admin Dose Admin Acetaminophen (Tylenol) 650 mg Q6H PRN ORAL Mild Pain/Temp > 100.5 08/02/18 14:15 09/01/18 14:14 08/04/18 20:11 Amiodarone HCl (Cordarone) 200 mg EVERY 8 HOURS NG 08/04/18 14:00 09/03/18 13:59 08/05/18 05:15 Chlorhexidine Gluconate (Rylie-Hex 2%) 1 applic DAILY@1999 TOPIC 07/26/18 20:00 08/25/18 19:59 08/04/18 20:07 Collagenase (Santyl) 1 applic QHS TOPIC 08/04/18 21:00 09/03/18 20:59 08/04/18 20:57 Epoetin Paul (Procrit (for ESRD on dialysis)) 10,000 units WED-WED-WED SUBQ 07/27/18 21:00 08/26/18 20:59 08/03/18 20:39 Linezolid (Zyvox) 600 mg EVERY 12 HOURS ORAL 07/27/18 21:00 08/10/18 20:59 08/05/18 09:15 Meropenem 500 mg/ Sodium Chloride 55 ml @ 110 mls/hr DAILY IVPB 07/27/18 12:00 08/10/18 11:59 08/05/18 09:16 Metoprolol Tartrate (Lopressor) 12.5 mg Q12HR ORAL 08/01/18 21:00 08/31/18 20:59 08/04/18 20:54 Minoxidil (Loniten) 5 mg Q12HR NG 07/31/18 21:00 08/30/18 20:59 08/05/18 09:16 Pantoprazole (Protonix) 40 mg Q12HR IVP 07/25/18 21:00 08/25/18 08:59 08/05/18 09:16 Sodium Chloride 1,000 ml @ 500 mls/hr Q2H PRN IVLG sbp<90 during hd 08/05/18 07:51 09/04/18 07:50 Omid Morfin MD Aug 05, 2018 10:42"
--- NOTE | 2018-08-05 12:00 | NUR ---
NURSE NOTES: Patient turned and repositioned. Denies any pain at this time. Cooperating with restraints off. No new orders at this time. Will continue to monitor patient.
--- NOTE | 2018-08-05 14:00 | NUR ---
NURSE NOTES: Patient turned and repositioned. Denies any pain at this time. No new orders at this time. Will continue to monitor patient.
--- NOTE | 2018-08-05 15:54 | NUR ---
CASE MANAGEMENT: REVIEW SI: A-FIB . SEPSIS . ESRD ON HD MWF . ORALLY INTUBATED T 98.7 HR 59 RR 16 BP 90/25 SAT 100% MECH VENT FIO2 30 H/H 10.0/33.0 K 3.0 BUN 44 CR 3.1 IS: AMIODARONE NG Q8HR LOPRESSOR NG Q12HR MINOXIDIL NG Q12HR PROCRIT SQ MWF MEROPENEM IV QD NGT FEEDING NEPRO @10ML/HR ICU STATUS DCP: PATIENT IS FROM [facility]
--- NOTE | 2018-08-05 16:00 | NUR ---
NURSE NOTES: BM x1. Currently being dialyzed. Diastolic bp low (20) but patient asymptomatic / tolerating well.
--- NOTE | 2018-08-05 18:00 | NUR ---
NURSE NOTES: Patient turned and repositioned. In & Out confusion. 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 Reoriented. No new orders. Will continue plan of care.
--- NOTE | 2018-08-05 19:28 | NUR ---
HAND-OFF: Report given to Deidre RN using SBAR. VSS. No distress noted.
--- NOTE | 2018-08-05 19:30 | NUR ---
NURSE NOTES: Received bedside report from BALDO Locke.Patient stable,confused,A&O x3,A fib on monitor worker,tolerated setting well AC 12 TV 500 FiO2 30% PEEP 5,GT in place running with Nepro 30 ml/hr,BS active in all quadrants,dialysis done today 2 L out, L AV shunt for dialysis,and FLACO midline for meds,no blood withdraw,bed secured in a low safety position,call light within a reach,will continue to monitor and follow POC
--- NOTE | 2018-08-05 20:09 | Cardiology Progress Note ---
Assessment/Plan Problem List: (1) Paroxysmal A-fib (2) Bradycardia (3) Sepsis (4) Hypotension (5) Pneumonia Status: stable, unchanged Status Narrative Pt w/ respiratory failure, on vent. Sepsis - e coli UTI and ? pneumonia. Hemodynamically improved - off pressors. Pt w/ brief AF/AFL today, w reversion to SR. Assessment/Plan Continue vent support Continue iv antibiotics per ID Amiodarone per ng tube. Not a candidate for anticoagulation, due to bleeding risk, anemia. Subjective ROS Limited/Unobtainable: Yes Subjective Cardiology for Dr. Butler Intubated, minimally responsive. Able to follow simple commands. Objective Last 24 Hour Vital Signs Date Time Temp Pulse Resp B/P (MAP) Pulse Ox O2 Delivery O2 Flow Rate FiO2 08/05/18 19:32 84 30 Mechanical Ventilator 60 08/05/18 19:00 98.4 67 16 99/24 (49) 100 08/05/18 18:49 78 12 30 08/05/18 18:00 65 16 98/22 (47) 100 08/05/18 17:00 72 16 99/27 (51) 100 08/05/18 16:29 68 12 30 08/05/18 16:00 30 08/05/18 16:00 66 08/05/18 16:00 67 16 99/30 (53) 100 08/05/18 16:00 Mechanical Ventilator 08/05/18 15:00 66 16 105/33 (57) 100 08/05/18 14:44 64 12 30 08/05/18 14:00 65 16 98/30 (52) 100 08/05/18 13:00 98.7 59 16 90/25 (46) 100 08/05/18 12:44 62 12 30 08/05/18 12:00 78 16 128/64 (85) 100 08/05/18 12:00 Mechanical Ventilator 08/05/18 12:00 59 08/05/18 11:00 80 17 122/62 (82) 100 08/05/18 10:42 66 12 30 08/05/18 10:00 87 16 125/64 (84) 100 08/05/18 09:45 30 08/05/18 09:16 128/68 08/05/18 09:00 96 16 128/68 (88) 100 08/05/18 09:00 78 128/58 08/05/18 08:34 73 19 30 08/05/18 08:33 100 08/05/18 08:00 98.8 82 16 103/34 (57) 100 08/05/18 08:00 30 08/05/18 08:00 Mechanical Ventilator 08/05/18 08:00 88 08/05/18 07:01 65 12 30 08/05/18 07:00 67 16 126/12 (50) 100 08/05/18 06:00 65 16 131/24 (59) 100 08/05/18 05:29 65 12 30 08/05/18 05:00 76 16 129/61 (83) 100 08/05/18 04:00 67 08/05/18 04:00 66 13 122/30 (60) 100 08/05/18 04:00 30 08/05/18 04:00 Mechanical Ventilator 08/05/18 03:40 69 12 30 08/05/18 03:00 70 12 125/19 (54) 100 08/05/18 02:00 70 14 142/43 (76) 100 08/05/18 01:05 70 13 30 08/05/18 01:00 70 13 138/29 (65) 100 08/05/18 00:00 Mechanical Ventilator 08/05/18 00:00 30 08/05/18 00:00 65 08/05/18 00:00 98.3 68 16 145/24 (64) 100 08/04/18 23:00 63 12 130/33 (65) 100 08/04/18 22:37 62 12 30 08/04/18 22:00 63 12 137/33 (67) 100 08/04/18 21:00 73 15 128/20 (56) 100 08/04/18 20:54 71 128/20 08/04/18 20:50 128/20 08/04/18 20:44 74 16 30 General Appearance: lethargic, on vent EENT: PERRL/EOMI, other - et tube, Neck: supple Rhythm: NSR Cardiovascular: normal rate, regular rhythm, no gallop/murmur Respiratory/Chest: other - clear anteriorly Abdomen: non tender, soft Extremities: no swelling Intake and Output 08/04/18 08/05/18 19:00 07:00 Intake Total 500 ml 360 ml Balance 500 ml 360 ml Free Water 30 ml IV Total 110 ml Tube Feeding 360 ml 360 ml # Bowel Movements 2 Laboratory Tests Test 08/05/18 04:15 White Blood Count 6.1 K/UL (4.8-10.8) Red Blood Count 3.51 M/UL (4.20-5.40) L Hemoglobin 10.0 G/DL (12.0-16.0) L Hematocrit 33.0 % (37.0-47.0) L Mean Corpuscular Volume 94 FL (80-99) Mean Corpuscular Hemoglobin 28.5 PG (27.0-31.0) Mean Corpuscular Hemoglobin Concent 30.3 G/DL (32.0-36.0) L Red Cell Distribution Width 19.4 % (11.6-14.8) H Platelet Count 233 K/UL (150-450) Mean Platelet Volume 6.0 FL (6.5-10.1) L Neutrophils (%) (Auto) 76.1 % (45.0-75.0) H Lymphocytes (%) (Auto) 11.6 % (20.0-45.0) L Monocytes (%) (Auto) 8.9 % (1.0-10.0) Eosinophils (%) (Auto) 2.3 % (0.0-3.0) Basophils (%) (Auto) 1.0 % (0.0-2.0) Sodium Level 140 MMOL/L (136-145) Potassium Level 3.0 MMOL/L (3.5-5.1) L Chloride Level 102 MMOL/L (98-107) Carbon Dioxide Level 30 MMOL/L (21-32) Anion Gap 8 mmol/L (5-15) Blood Urea Nitrogen 44 mg/dL (7-18) H Creatinine 3.1 MG/DL (0.55-1.30) H Estimat Glomerular Filtration Rate mL/min (>60) Glucose Level 117 MG/DL (74-106) H Calcium Level 8.8 MG/DL (8.5-10.1) Total Bilirubin 0.3 MG/DL (0.2-1.0) Aspartate Amino Transf (AST/SGOT) 19 U/L (15-37) Alanine Aminotransferase (ALT/SGPT) < 6 U/L (12-78) L Alkaline Phosphatase 98 U/L (46-116) Total Protein 6.8 G/DL (6.4-8.2) Albumin 1.5 G/DL (3.4-5.0) L Globulin 5.3 g/dL Albumin/Globulin Ratio 0.3 (1.0-2.7) L Jennifer Manuel MD Aug 05, 2018 20:09
[2018-08-05] MEDS: Dyna-Hex 2% Top Sol 2oz TOPIC SCH (20:19)
[2018-08-05] MEDS: Epogen (for ESRD on dialysis) SUBQ SCH (21:28)
--- NOTE | 2018-08-05 21:28 | NUR ---
RESPIRATORY NOTE: Received pt on the following vent settings, AC 12/500/ peep 5/ 30% fi02 with 7.5 ett 23 at the lip. Airway is secure and patent. Ambu bag at bedside. Vent alarms are on and audible. Will continue to monitor.
[2018-08-05] MEDS: Heparin 5000 units/ml inj SUBQ SCH (21:30)
--- NOTE | 2018-08-05 22:00 | NUR ---
NURSE NOTES: Patient turned and repositioned,mouth care provided,no c/o pain or respiratory distress noted.Will continue to monitor
[2018-08-06] VITALS (25 sets, daily range): BP systolic 83–116; BP diastolic 13–91
--- NOTE | 2018-08-06 | NUR ---
NURSE NOTES: Patient clean and dry,repositioned.Dressing changed,wound cleansed with NS,pat and dry,applied santyl and cover with optifoam.
--- NOTE | 2018-08-06 02:00 | NUR ---
NURSE NOTES: Patient stable,sleeping at this moment,no s/s of pain,turned,no respiratory distress noted.
--- NOTE | 2018-08-06 04:00 | NUR ---
NURSE NOTES: Patient stable,sleeping,turned and repositioned.
[2018-08-06] MEDS: Amiodarone 200mg tab NG SCH ×2 (05:08→20:54)
[2018-08-06] MEDS: Heparin 5000 units/ml inj SUBQ SCH ×3 (05:10→21:39)
--- NOTE | 2018-08-06 05:59 | NUR ---
NURSE NOTES: All medications given on time,patient comfortable resting in a bed,V/S stable,no c/o pain,no respiratory distress noted.will continue to monitor.
--- NOTE | 2018-08-06 06:57 | NUR ---
RESPIRATORY NOTE: received pt on vent, intubated with 7.5 ETT placed at 23 at the lip. ett secured via anchor fast with no redness around facial area. vent settings are as followed with alarms on and audible. vent plugged into red outlet with ambu bag at bedside. will cont to monitor.
--- NOTE | 2018-08-06 07:12 | NUR ---
HAND-OFF: Report given to BALDO Rivero.Patient stable.
--- NOTE | 2018-08-06 07:29 | NUR ---
NURSE NOTES: Report received from Amber BLAND. Pt sleepy, alert and oriented x3, able to follow commands. Pt orally intubated ETT 7.5, 23 cm at the lipline, AC 12, TV 500, 30% fiO2 and PEEP5. NGT right nare with 30 cc/hr nephro running. L AV shunt and LA midline noted. Safety measures in place with bed locked and in lowest position, side rails x2 up and bed alarm activated. Will continue to monitor and continue plan of care.
[2018-08-06] MEDS: Pantoprazole Inj IVP SCH ×2 (08:36→20:53)
[2018-08-06] MEDS: Meropenem 500 MG in NS 55 ML IVPB SCH (08:37)
[2018-08-06] MEDS: Minoxidil 2.5mg tab NG SCH ×2 (08:37→21:12)
[2018-08-06] MEDS: Metoprolol Tartrate 12.5mg TAB ORAL SCH ×2 (08:38→21:11)
--- NOTE | 2018-08-06 10:13 | Pulmonology Progress Note ---
Assessment/Plan Assessment/Plan 1. Hypotension. 2. Sepsis. 3. Atrial fibrillation. 4. Bradycardia. 5. Diabetes mellitus. 6. End-stage renal disease on dialysis. 7. Left lung collapse. s/p bronchoscopy 8. Respiratory failure, acute 9. Dysphagia. 10. Dementia. 11. Anemia 12. Pneumonia PLAN respiratory care noted try to wean monitor imaging oxygen taper aspiration precautions keep negative supportive care will follow up and recommend impression, plan, and exam edited and reviewed in detail care discussed with RN medications/laboratory data/nursing notes/ICU care reviewed in detail note reviewed and edited care discussed with RN and RT ICU time spent 40 minutes Subjective Allergies: Coded Allergies: No Known Allergies (Unverified , 07/25/18) Subjective care noted and reviewed no distress at present s/p bronchoscopy Objective Last 24 Hour Vital Signs Date Time Temp Pulse Resp B/P (MAP) Pulse Ox O2 Delivery O2 Flow Rate FiO2 08/06/18 08:38 74 98/13 08/06/18 08:37 89/16 08/06/18 08:00 30 08/06/18 08:00 Mechanical Ventilator Mechanical Ventilator Mechanical Ventilator Mechanical Ventilator 08/06/18 07:00 97.3 66 12 89/16 (40) 100 08/06/18 06:56 67 12 30 08/06/18 06:00 97.5 68 10 91/17 (41) 99 08/06/18 05:00 97.3 74 12 93/16 (41) 100 08/06/18 04:52 70 12 30 08/06/18 04:06 71 08/06/18 04:00 30 08/06/18 04:00 97.4 69 14 96/15 (42) 100 08/06/18 04:00 Mechanical Ventilator Mechanical Ventilator Mechanical Ventilator Mechanical Ventilator 08/06/18 03:12 77 14 30 08/06/18 03:00 97.8 72 12 112/30 (57) 100 08/06/18 02:00 97.6 65 12 83/14 (37) 100 08/06/18 01:00 67 12 96/14 (41) 100 08/06/18 01:00 67 12 30 08/06/18 00:00 Mechanical Ventilator Mechanical Ventilator Mechanical Ventilator Mechanical Ventilator 08/06/18 00:00 65 08/06/18 00:00 97.7 68 12 97/13 (41) 100 08/06/18 00:00 30 12/7/18 23:06 71 12 30 08/05/18 23:00 97.4 65 16 102/18 (46) 100 08/05/18 22:00 97.5 79 18 97/18 (44) 100 08/05/18 21:00 97.8 74 16 115/19 (51) 100 08/05/18 20:54 66 12 30 08/05/18 20:26 74 115/19 08/05/18 20:26 115/19 08/05/18 20:00 Mechanical Ventilator Mechanical Ventilator Mechanical Ventilator Mechanical Ventilator 08/05/18 20:00 97.6 71 16 113/17 (49) 100 08/05/18 20:00 30 08/05/18 19:52 69 08/05/18 19:32 84 30 Mechanical Ventilator 60 08/05/18 19:00 98.4 67 16 99/24 (49) 100 08/05/18 18:49 78 12 30 08/05/18 18:00 65 16 98/22 (47) 100 08/05/18 17:00 72 16 99/27 (51) 100 08/05/18 16:29 68 12 30 08/05/18 16:00 30 08/05/18 16:00 66 08/05/18 16:00 67 16 99/30 (53) 100 08/05/18 16:00 Mechanical Ventilator 08/05/18 15:00 66 16 105/33 (57) 100 08/05/18 14:44 64 12 30 08/05/18 14:00 65 16 98/30 (52) 100 08/05/18 13:00 98.7 59 16 90/25 (46) 100 08/05/18 12:44 62 12 30 08/05/18 12:00 78 16 128/64 (85) 100 08/05/18 12:00 Mechanical Ventilator 08/05/18 12:00 59 08/05/18 11:00 80 17 122/62 (82) 100 08/05/18 10:42 66 12 30 Intake and Output 08/05/18 08/06/18 18:59 06:59 Intake Total 360 ml 2360 ml Output Total 0 ml Balance 360 ml 2360 ml Tube Feeding 360 ml 360 ml Hemodialysis 2000 ml Output Urine Total 0 ml # Bowel Movements 2 Objective WDWN NAD intubated aware reduced breath sounds bilaterally without rhonchi or wheeze [id number] without MRG NABS nontender no HSM no CCE cachectic nonfocal Current Medications Medications (Trade) Dose Ordered Sig/Renetta Route PRN Reason Start Time Stop Time Status Last Admin Dose Admin Acetaminophen (Tylenol) 650 mg Q6H PRN ORAL Mild Pain/Temp > 100.5 08/02/18 14:15 09/01/18 14:14 08/06/18 05:08 Amiodarone HCl (Cordarone) 200 mg EVERY 8 HOURS NG 08/04/18 14:00 09/03/18 13:59 08/06/18 05:08 Chlorhexidine Gluconate (Rylie-Hex 2%) 1 applic DAILY@1999 TOPIC 07/26/18 20:00 08/25/18 19:59 08/05/18 20:19 Collagenase (Santyl) 1 applic QHS TOPIC 08/04/18 21:00 09/03/18 20:59 08/05/18 20:27 Epoetin Paul (Procrit (for ESRD on dialysis)) 10,000 units WED-WED-WED SUBQ 07/27/18 21:00 08/26/18 20:59 08/05/18 21:28 Heparin Sodium (Porcine) (Heparin 5000 units/ml) 5,000 units EVERY 8 HOURS SUBQ 08/05/18 22:00 09/04/18 21:59 08/06/18 05:10 Meropenem 500 mg/ Sodium Chloride 55 ml @ 110 mls/hr DAILY IVPB 07/27/18 12:00 08/10/18 11:59 08/06/18 08:37 Metoprolol Tartrate (Lopressor) 12.5 mg Q12HR ORAL 08/01/18 21:00 08/31/18 20:59 08/06/18 08:38 Minoxidil (Loniten) 5 mg Q12HR NG 07/31/18 21:00 08/30/18 20:59 08/06/18 08:37 Pantoprazole (Protonix) 40 mg Q12HR IVP 07/25/18 21:00 08/25/18 08:59 08/06/18 08:36 Sodium Chloride 1,000 ml @ 500 mls/hr Q2H PRN IVLG sbp<90 during hd 08/05/18 07:51 09/04/18 07:50 Quan Robles MD Aug 06, 2018 10:13
--- NOTE | 2018-08-06 10:30 | NUR ---
NURSE NOTES: Pt turned and reposition. Oral care done. Will continue to monitor.
--- NOTE | 2018-08-06 10:38 | Nephrology Progress Note ---
Assessment/Plan Assessment Seee below Plan MOF, improving slowly. Sepsis due to infected diabetic ulcers. On IV Abx. Followed by ID, Vasc. Sx, Podiatry. Septic Shock pressors PRN ESRD HD q MWF Anemia of CKD , DARRYN high dose. Transfuse PRN. Resp Failure - Vent per Pul. Trying to wean. REGINALDO Allan. A. 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 with LAE. LVEF 65% . Anticoagulate when stable. REGINALDO Butler. In and out A. Fib. If un weanable will need Trach + PEG ------> Subacute DW pt's son @ bedside. Subjective Subjective Awake + alert. No c/o Objective Objective Last 24 Hour Vital Signs Date Time Temp Pulse Resp B/P (MAP) Pulse Ox O2 Delivery O2 Flow Rate FiO2 08/06/18 08:38 74 98/13 08/06/18 08:37 89/16 08/06/18 08:00 30 08/06/18 08:00 Mechanical Ventilator Mechanical Ventilator Mechanical Ventilator Mechanical Ventilator 08/06/18 07:00 97.3 66 12 89/16 (40) 100 08/06/18 06:56 67 12 30 08/06/18 06:00 97.5 68 10 91/17 (41) 99 08/06/18 05:00 97.3 74 12 93/16 (41) 100 08/06/18 04:52 70 12 30 08/06/18 04:06 71 08/06/18 04:00 30 08/06/18 04:00 97.4 69 14 96/15 (42) 100 08/06/18 04:00 Mechanical Ventilator Mechanical Ventilator Mechanical Ventilator Mechanical Ventilator 08/06/18 03:12 77 14 30 08/06/18 03:00 97.8 72 12 112/30 (57) 100 08/06/18 02:00 97.6 65 12 83/14 (37) 100 08/06/18 01:00 67 12 96/14 (41) 100 08/06/18 01:00 67 12 30 08/06/18 00:00 Mechanical Ventilator Mechanical Ventilator Mechanical Ventilator Mechanical Ventilator 08/06/18 00:00 65 08/06/18 00:00 97.7 68 12 97/13 (41) 100 08/06/18 00:00 30 12/7/18 23:06 71 12 30 08/05/18 23:00 97.4 65 16 102/18 (46) 100 08/05/18 22:00 97.5 79 18 97/18 (44) 100 08/05/18 21:00 97.8 74 16 115/19 (51) 100 08/05/18 20:54 66 12 30 08/05/18 20:26 74 115/19 08/05/18 20:26 115/19 08/05/18 20:00 Mechanical Ventilator Mechanical Ventilator Mechanical Ventilator Mechanical Ventilator 08/05/18 20:00 97.6 71 16 113/17 (49) 100 08/05/18 20:00 30 08/05/18 19:52 69 08/05/18 19:32 84 30 Mechanical Ventilator 60 08/05/18 19:00 98.4 67 16 99/24 (49) 100 08/05/18 18:49 78 12 30 08/05/18 18:00 65 16 98/22 (47) 100 08/05/18 17:00 72 16 99/27 (51) 100 08/05/18 16:29 68 12 30 08/05/18 16:00 30 08/05/18 16:00 66 08/05/18 16:00 67 16 99/30 (53) 100 08/05/18 16:00 Mechanical Ventilator 08/05/18 15:00 66 16 105/33 (57) 100 08/05/18 14:44 64 12 30 08/05/18 14:00 65 16 98/30 (52) 100 08/05/18 13:00 98.7 59 16 90/25 (46) 100 08/05/18 12:44 62 12 30 08/05/18 12:00 78 16 128/64 (85) 100 08/05/18 12:00 Mechanical Ventilator 08/05/18 12:00 59 08/05/18 11:00 80 17 122/62 (82) 100 08/05/18 10:42 66 12 30 Intake and Output 08/05/18 08/06/18 19:00 07:00 Intake Total 360 ml 2360 ml Output Total 0 ml Balance 360 ml 2360 ml Tube Feeding 360 ml 360 ml Hemodialysis 2000 ml Output Urine Total 0 ml # Bowel Movements 2 Height (Feet): 5 Height (Inches): 2.00 Weight (Pounds): 131 Objective Intubated, On vent. BP measured more accurately with a smaller cuff placed on rt. FA. Cv IRR/IRR Lungs B facundo. Abd SNT. BS + E Rt. foot diabetic ulcers with pus Chase He MD Aug 06, 2018 10:38
--- NOTE | 2018-08-06 11:57 | NUR ---
CASE MANAGEMENT:REVIEW 08/06/18 SI: ACUTE RESPIRATORY FAILURE SEPSIS. PNA. AFIB 99.7 67 12 98/14 100% ON VENT SUPPORT W/30% FIO2 IS: IV MEROPENEM QD IV PROTONIX Q12 PROCRIT SQ MWF AMIODARONE NG Q8HRS HEPARIN SQ Q8HRS : ICU STATUS DCP; PATIENT IS FROM [facility]
--- NOTE | 2018-08-06 12:26 | Infectious Diseases Prog Note ---
Assessment/Plan Assessment/Plan A: Sepsis UTI Cellulitis of R leg Hypercapnic respiratory failure ESRD on HD DM Anemia Dementia PVD R pleural effusion Mucous plug P; Continue Meropenem Subjective ROS Limited/Unobtainable: Yes Constitutional: Reports: no symptoms Musculoskeletal: Reports: pain Allergies: Coded Allergies: No Known Allergies (Unverified , 07/25/18) Objective Vital Signs Last 24 Hour Vital Signs Date Time Temp Pulse Resp B/P (MAP) Pulse Ox O2 Delivery O2 Flow Rate FiO2 08/06/18 12:00 Mechanical Ventilator Mechanical Ventilator Mechanical Ventilator Mechanical Ventilator 08/06/18 11:30 77 15 94/77 (83) 99 08/06/18 11:00 66 13 105/14 (44) 99 08/06/18 10:43 66 12 30 08/06/18 10:00 63 10 99/14 (42) 100 08/06/18 09:00 65 7 87/17 (40) 100 08/06/18 08:39 69 12 30 08/06/18 08:38 74 98/13 08/06/18 08:37 89/16 08/06/18 08:00 74 08/06/18 08:00 30 08/06/18 08:00 Mechanical Ventilator Mechanical Ventilator Mechanical Ventilator Mechanical Ventilator 08/06/18 08:00 99.7 67 12 98/14 (42) 100 08/06/18 07:00 97.3 66 12 89/16 (40) 100 08/06/18 06:56 67 12 30 08/06/18 06:00 97.5 68 10 91/17 (41) 99 08/06/18 05:00 97.3 74 12 93/16 (41) 100 08/06/18 04:52 70 12 30 08/06/18 04:06 71 08/06/18 04:00 30 08/06/18 04:00 97.4 69 14 96/15 (42) 100 08/06/18 04:00 Mechanical Ventilator Mechanical Ventilator Mechanical Ventilator Mechanical Ventilator 08/06/18 03:12 77 14 30 08/06/18 03:00 97.8 72 12 112/30 (57) 100 08/06/18 02:00 97.6 65 12 83/14 (37) 100 08/06/18 01:00 67 12 96/14 (41) 100 08/06/18 01:00 67 12 30 08/06/18 00:00 Mechanical Ventilator Mechanical Ventilator Mechanical Ventilator Mechanical Ventilator 08/06/18 00:00 65 08/06/18 00:00 97.7 68 12 97/13 (41) 100 08/06/18 00:00 30 08/05/18 23:06 71 12 30 08/05/18 23:00 97.4 65 16 102/18 (46) 100 08/05/18 22:00 97.5 79 18 97/18 (44) 100 08/05/18 21:00 97.8 74 16 115/19 (51) 100 08/05/18 20:54 66 12 30 08/05/18 20:26 74 115/19 08/05/18 20:26 115/19 08/05/18 20:00 Mechanical Ventilator Mechanical Ventilator Mechanical Ventilator Mechanical Ventilator 08/05/18 20:00 97.6 71 16 113/17 (49) 100 08/05/18 20:00 30 08/05/18 19:52 69 08/05/18 19:32 84 30 Mechanical Ventilator 60 08/05/18 19:00 98.4 67 16 99/24 (49) 100 08/05/18 18:49 78 12 30 08/05/18 18:00 65 16 98/22 (47) 100 08/05/18 17:00 72 16 99/27 (51) 100 08/05/18 16:29 68 12 30 08/05/18 16:00 30 08/05/18 16:00 66 08/05/18 16:00 67 16 99/30 (53) 100 08/05/18 16:00 Mechanical Ventilator 08/05/18 15:00 66 16 105/33 (57) 100 08/05/18 14:44 64 12 30 08/05/18 14:00 65 16 98/30 (52) 100 08/05/18 13:00 98.7 59 16 90/25 (46) 100 08/05/18 12:44 62 12 30 Height (Feet): 5 Height (Inches): 2.00 Weight (Pounds): 131 HEENT: other - orally intubated Respiratory/Chest: rhonchi - bilaterally, other - on ventilator Cardiovascular: normal rate Abdomen: soft, non tender, other - NG tube feeding Extremities: no edema Skin: ulcers Neurologic/Psychiatric: alert, responsive Current Medications Medications (Trade) Dose Ordered Sig/Renetta Route PRN Reason Start Time Stop Time Status Last Admin Dose Admin Acetaminophen (Tylenol) 650 mg Q6H PRN ORAL Mild Pain/Temp > 100.5 08/02/18 14:15 09/01/18 14:14 08/06/18 05:08 Amiodarone HCl (Cordarone) 200 mg EVERY 8 HOURS NG 08/04/18 14:00 09/03/18 13:59 08/06/18 05:08 Chlorhexidine Gluconate (Rylie-Hex 2%) 1 applic DAILY@1999 TOPIC 07/26/18 20:00 08/25/18 19:59 08/05/18 20:19 Collagenase (Santyl) 1 applic QHS TOPIC 08/04/18 21:00 09/03/18 20:59 08/05/18 20:27 Epoetin Paul (Procrit (for ESRD on dialysis)) 10,000 units WED-WED-WED SUBQ 07/27/18 21:00 08/26/18 20:59 08/05/18 21:28 Heparin Sodium (Porcine) (Heparin 5000 units/ml) 5,000 units EVERY 8 HOURS SUBQ 08/05/18 22:00 09/04/18 21:59 08/06/18 05:10 Meropenem 500 mg/ Sodium Chloride 55 ml @ 110 mls/hr DAILY IVPB 07/27/18 12:00 08/10/18 11:59 08/06/18 08:37 Metoprolol Tartrate (Lopressor) 12.5 mg Q12HR ORAL 08/01/18 21:00 08/31/18 20:59 08/06/18 08:38 Minoxidil (Loniten) 5 mg Q12HR NG 07/31/18 21:00 08/30/18 20:59 08/06/18 08:37 Pantoprazole (Protonix) 40 mg Q12HR IVP 07/25/18 21:00 08/25/18 08:59 08/06/18 08:36 Sodium Chloride 1,000 ml @ 500 mls/hr Q2H PRN IVLG sbp<90 during hd 08/05/18 07:51 09/04/18 07:50 Freedom Randolph MD Aug 06, 2018 12:26
--- NOTE | 2018-08-06 13:00 | NUR ---
NURSE NOTES: Dr Randolph here to see pt, no new orders. Will continue to monitor.
--- NOTE | 2018-08-06 14:05 | General Surgery Progress Note ---
General Surgery-Progress Note Subjective Procedure Performed left subclavian central venous catheter insertion Additional Comments no acute events. still on vent. weaning Objective Last 24 Hour Vital Signs Date Time Temp Pulse Resp B/P (MAP) Pulse Ox O2 Delivery O2 Flow Rate FiO2 08/06/18 13:25 64 12 30 08/06/18 13:00 65 12 93/25 (47) 100 08/06/18 12:00 72 08/06/18 12:00 30 08/06/18 12:00 Mechanical Ventilator Mechanical Ventilator Mechanical Ventilator Mechanical Ventilator 08/06/18 12:00 99.4 68 12 116/22 (53) 100 08/06/18 11:30 77 15 94/77 (83) 99 08/06/18 11:00 66 13 105/14 (44) 99 08/06/18 10:43 66 12 30 08/06/18 10:00 63 10 99/14 (42) 100 08/06/18 09:00 65 7 87/17 (40) 100 08/06/18 08:39 69 12 30 08/06/18 08:38 74 98/13 08/06/18 08:37 89/16 08/06/18 08:00 74 08/06/18 08:00 30 08/06/18 08:00 Mechanical Ventilator Mechanical Ventilator Mechanical Ventilator Mechanical Ventilator 08/06/18 08:00 99.7 67 12 98/14 (42) 100 08/06/18 07:00 97.3 66 12 89/16 (40) 100 08/06/18 06:56 67 12 30 08/06/18 06:00 97.5 68 10 91/17 (41) 99 08/06/18 05:00 97.3 74 12 93/16 (41) 100 08/06/18 04:52 70 12 30 08/06/18 04:06 71 08/06/18 04:00 30 08/06/18 04:00 97.4 69 14 96/15 (42) 100 08/06/18 04:00 Mechanical Ventilator Mechanical Ventilator Mechanical Ventilator Mechanical Ventilator 08/06/18 03:12 77 14 30 08/06/18 03:00 97.8 72 12 112/30 (57) 100 08/06/18 02:00 97.6 65 12 83/14 (37) 100 08/06/18 01:00 67 12 96/14 (41) 100 08/06/18 01:00 67 12 30 08/06/18 00:00 Mechanical Ventilator Mechanical Ventilator Mechanical Ventilator Mechanical Ventilator 08/06/18 00:00 65 08/06/18 00:00 97.7 68 12 97/13 (41) 100 08/06/18 00:00 30 08/05/18 23:06 71 12 30 08/05/18 23:00 97.4 65 16 102/18 (46) 100 08/05/18 22:00 97.5 79 18 97/18 (44) 100 08/05/18 21:00 97.8 74 16 115/19 (51) 100 08/05/18 20:54 66 12 30 08/05/18 20:26 74 115/19 08/05/18 20:26 115/19 08/05/18 20:00 Mechanical Ventilator Mechanical Ventilator Mechanical Ventilator Mechanical Ventilator 08/05/18 20:00 97.6 71 16 113/17 (49) 100 08/05/18 20:00 30 08/05/18 19:52 69 08/05/18 19:32 84 30 Mechanical Ventilator 60 08/05/18 19:00 98.4 67 16 99/24 (49) 100 08/05/18 18:49 78 12 30 08/05/18 18:00 65 16 98/22 (47) 100 08/05/18 17:00 72 16 99/27 (51) 100 08/05/18 16:29 68 12 30 08/05/18 16:00 30 08/05/18 16:00 66 08/05/18 16:00 67 16 99/30 (53) 100 08/05/18 16:00 Mechanical Ventilator 08/05/18 15:00 66 16 105/33 (57) 100 08/05/18 14:44 64 12 30 I&O Intake and Output 08/05/18 08/06/18 18:59 06:59 Intake Total 360 ml 2360 ml Output Total 0 ml Balance 360 ml 2360 ml Tube Feeding 360 ml 360 ml Hemodialysis 2000 ml Output Urine Total 0 ml # Bowel Movements 2 Dressing: other Wound: other Drains: other Cardiovascular: RSR Respiratory: decreased breath sounds Abdomen: soft, flat, non-tender, present bowel sounds Extremities: no cyanosis, other Plan Problems: (1) Sepsis Assessment & Plan: acute decompensation hypotensive bradycardic respiratory decompensation requiring intubation and vent support - failed extubation labs noted still on vent cont current ICU care and management may need trach if unable to wean off went with history of failed extubation thank you will follow with recs (2) Hypotension (3) Bradycardia (4) Altered mental status (5) Decubital ulcer Assessment & Plan: Patient with multiple pressure injuries where have been present since admission. Full thickness pressure injury to sacrum (L)(L)2.4cm x (W)4.4cm x (D)0.9cm, undermining 12-12 with tunneling 9-10 by 11.3cm. In close proximity to sacral wound on L buttocks purple ,indurated area with small area of slough measuring (L)0.6cm x (W)0.5cm noted. Arched surgical scar noted to L buttocks at site of tunneling. Resolving pressure injury noted to R ischium (L)3cm x (W)2cm. Wound bed epithelialized with maroon discoloration without induration periwound. Closed area with white pocket and purple margins noted to distal,carmela R tibia (L)6cm x (W)2.7cm Full thickness wound noted to distal/medial RLE (L)6.2cm x (W)3.8cm .Wound noted to have 95% mixed slough /necrosis ,marginal erythema. Wound malodorous. Wound posterior R tibia (L)4.7cm x (W) 3cm ,100% necrotic with marginal erythema. Dry eschar with marginal erythema (L)0.5cm x (W)0.7cm noted to medial R heel.Non-blanchable erythema noted to medial L malleolus. Dry brown eschar noted to medial L 1st malleolus (L)1.4cm x (W)1cm. L heel and lateral aspect boggy with non-blanchable erythema. Tx.Plan: Cleanse sacral wound with Saline.Loose pack with Hydrogel impregnated packing strip (Attention to tunneled area at 9-10).Cover with Optifoam drsg Daily and prn. Reposition at least every 2hours or as tolerated. Air Fluidized mattress. Off-load heels with pillow. Appreciate Podiatry and Vascular input Plan for anigo late by Vascular Reji Nails Aug 06, 2018 14:05
--- NOTE | 2018-08-06 14:23 | Cardiology Progress Note ---
Assessment/Plan Problem List: (1) Paroxysmal A-fib (2) Bradycardia (3) Sepsis (4) Hypotension (5) Pneumonia Status: stable, progressing Status Narrative Pt w/ respiratory failure, on vent. Undergoing weaning trial today - tolerating well. Sepsis - e coli UTI and ? pneumonia, on antibiotics PAF - maintaining SR on amiodarone Assessment/Plan Wean from vent, as per Dr. Do Continue iv antibiotics per ID Amiodarone per ng tube. Will decrease to 200 mg bid. No anticoagulation, due to anemia, bleeding risk. Subjective ROS Limited/Unobtainable: Yes Subjective Cardiology for Dr. Butler Intubated, on cpap weaning trial. Responds to voice Objective Last 24 Hour Vital Signs Date Time Temp Pulse Resp B/P (MAP) Pulse Ox O2 Delivery O2 Flow Rate FiO2 08/06/18 14:00 64 13 88/22 (44) 100 08/06/18 13:25 64 12 30 08/06/18 13:00 65 12 93/25 (47) 100 08/06/18 12:00 72 08/06/18 12:00 30 08/06/18 12:00 Mechanical Ventilator Mechanical Ventilator Mechanical Ventilator Mechanical Ventilator 08/06/18 12:00 99.4 68 12 116/22 (53) 100 08/06/18 11:30 77 15 94/77 (83) 99 08/06/18 11:00 66 13 105/14 (44) 99 08/06/18 10:43 66 12 30 08/06/18 10:00 63 10 99/14 (42) 100 08/06/18 09:00 65 7 87/17 (40) 100 08/06/18 08:39 69 12 30 08/06/18 08:38 74 98/13 08/06/18 08:37 89/16 08/06/18 08:00 74 08/06/18 08:00 30 08/06/18 08:00 Mechanical Ventilator Mechanical Ventilator Mechanical Ventilator Mechanical Ventilator 08/06/18 08:00 99.7 67 12 98/14 (42) 100 08/06/18 07:00 97.3 66 12 89/16 (40) 100 08/06/18 06:56 67 12 30 08/06/18 06:00 97.5 68 10 91/17 (41) 99 08/06/18 05:00 97.3 74 12 93/16 (41) 100 08/06/18 04:52 70 12 30 08/06/18 04:06 71 08/06/18 04:00 30 08/06/18 04:00 97.4 69 14 96/15 (42) 100 08/06/18 04:00 Mechanical Ventilator Mechanical Ventilator Mechanical Ventilator Mechanical Ventilator 08/06/18 03:12 77 14 30 08/06/18 03:00 97.8 72 12 112/30 (57) 100 08/06/18 02:00 97.6 65 12 83/14 (37) 100 08/06/18 01:00 67 12 96/14 (41) 100 08/06/18 01:00 67 12 30 08/06/18 00:00 Mechanical Ventilator Mechanical Ventilator Mechanical Ventilator Mechanical Ventilator 08/06/18 00:00 65 08/06/18 00:00 97.7 68 12 97/13 (41) 100 08/06/18 00:00 30 08/05/18 23:06 71 12 30 08/05/18 23:00 97.4 65 16 102/18 (46) 100 08/05/18 22:00 97.5 79 18 97/18 (44) 100 08/05/18 21:00 97.8 74 16 115/19 (51) 100 08/05/18 20:54 66 12 30 08/05/18 20:26 74 115/19 08/05/18 20:26 115/19 08/05/18 20:00 Mechanical Ventilator Mechanical Ventilator Mechanical Ventilator Mechanical Ventilator 08/05/18 20:00 97.6 71 16 113/17 (49) 100 08/05/18 20:00 30 08/05/18 19:52 69 08/05/18 19:32 84 30 Mechanical Ventilator 60 08/05/18 19:00 98.4 67 16 99/24 (49) 100 08/05/18 18:49 78 12 30 08/05/18 18:00 65 16 98/22 (47) 100 08/05/18 17:00 72 16 99/27 (51) 100 08/05/18 16:29 68 12 30 08/05/18 16:00 30 08/05/18 16:00 66 08/05/18 16:00 67 16 99/30 (53) 100 08/05/18 16:00 Mechanical Ventilator 08/05/18 15:00 66 16 105/33 (57) 100 08/05/18 14:44 64 12 30 General Appearance: WD/WN, no apparent distress, on vent, other - ng, et tubes EENT: PERRL/EOMI Neck: supple, no JVD Rhythm: NSR Cardiovascular: normal rate, regular rhythm, other - i/vi EDNA at apex Respiratory/Chest: lungs clear, other - clear anteriorly Abdomen: non tender, soft Extremities: no swelling Intake and Output 08/05/18 08/06/18 18:59 06:59 Intake Total 360 ml 2360 ml Output Total 0 ml Balance 360 ml 2360 ml Tube Feeding 360 ml 360 ml Hemodialysis 2000 ml Output Urine Total 0 ml # Bowel Movements 2 Labs Test 08/05/18 04:15 White Blood Count 6.1 K/UL (4.8-10.8) Red Blood Count 3.51 M/UL (4.20-5.40) Hemoglobin 10.0 G/DL (12.0-16.0) Hematocrit 33.0 % (37.0-47.0) Mean Corpuscular Volume 94 FL (80-99) Mean Corpuscular Hemoglobin 28.5 PG (27.0-31.0) Mean Corpuscular Hemoglobin Concent 30.3 G/DL (32.0-36.0) Red Cell Distribution Width 19.4 % (11.6-14.8) Platelet Count 233 K/UL (150-450) Mean Platelet Volume 6.0 FL (6.5-10.1) Neutrophils (%) (Auto) 76.1 % (45.0-75.0) Lymphocytes (%) (Auto) 11.6 % (20.0-45.0) Monocytes (%) (Auto) 8.9 % (1.0-10.0) Eosinophils (%) (Auto) 2.3 % (0.0-3.0) Basophils (%) (Auto) 1.0 % (0.0-2.0) Sodium Level 140 MMOL/L (136-145) Potassium Level 3.0 MMOL/L (3.5-5.1) Chloride Level 102 MMOL/L (98-107) Carbon Dioxide Level 30 MMOL/L (21-32) Anion Gap 8 mmol/L (5-15) Blood Urea Nitrogen 44 mg/dL (7-18) Creatinine 3.1 MG/DL (0.55-1.30) Estimat Glomerular Filtration Rate mL/min (>60) Glucose Level 117 MG/DL (74-106) Calcium Level 8.8 MG/DL (8.5-10.1) Total Bilirubin 0.3 MG/DL (0.2-1.0) Aspartate Amino Transf (AST/SGOT) 19 U/L (15-37) Alanine Aminotransferase (ALT/SGPT) < 6 U/L (12-78) Alkaline Phosphatase 98 U/L (46-116) Total Protein 6.8 G/DL (6.4-8.2) Albumin 1.5 G/DL (3.4-5.0) Globulin 5.3 g/dL Albumin/Globulin Ratio 0.3 (1.0-2.7) Jennifer Manuel MD Aug 06, 2018 14:23
--- NOTE | 2018-08-06 16:09 | NUR ---
NURSE NOTES: Son at bedside visiting. No acute distress. Will continue to monitor.
[2018-08-06] MEDS ORDERED: NS 275ml ONE (16:40)
--- NOTE | 2018-08-06 19:13 | NUR ---
RESPIRATORY NOTE: Received pt on current vent setting. SPO2 98%, HR 69. Intubated on size 7.5 ett at 23 at the lip secured by anchor fast. Alarms are on and audible. Vent is plugged into red outlet. Ambu bag is at the bedside. Will continue to monitor.
--- NOTE | 2018-08-06 19:20 | NUR ---
HAND-OFF: Report given to Rickey BLAND.
[2018-08-06] MEDS: Dyna-Hex 2% Top Sol 2oz TOPIC SCH (19:42)
--- NOTE | 2018-08-06 19:45 | NUR ---
NURSE NOTES: Patient open eyes, followed commands, on ETT to vent ac12/tv500/fio2 30%/peep5, o2 saturation 97% noted, NGT intact and patent, ongoing Nepro at 30ml/hr, residue 20ml noted, abdomen soft, no bowel movement, AV shunt to left upper arm, palpable thrill, bruit, Mid line to right upper arm, intact and patent, on p200 bed, kept hob over 30 degree, provided call light within reach, will continue to monitor.
--- NOTE | 2018-08-06 22:00 | NUR ---
NURSE NOTES: Repositioned, oral care was done.
[2018-08-07] VITALS (24 sets, daily range): BP systolic 103–189; BP diastolic 10–82
--- NOTE | 2018-08-07 | NUR ---
NURSE NOTES: NO PAIN OR DISTRESS NOTED AT THIS TIME.
--- NOTE | 2018-08-07 03:35 | NUR ---
NURSE NOTES: MORNING CARE AND ORAL CARE WAS DONE, MUCOID SMALL BOWEL MOVEMENT NOTED.
[2018-08-07] MEDS: Heparin 5000 units/ml inj SUBQ SCH ×3 (05:35→22:00)
--- NOTE | 2018-08-07 06:10 | NUR ---
NURSE NOTES: NO ACUTE DISTRESS NOTED AT THIS SHIFT, WILL CONTINUE PLAN OF CARE.
[2018-08-07 06:12] LABS: BASOPHILS % (AUTO) 0.5 % (0.0-2.0); EOSINOPHILS % (AUTO) 1.5 % (0.0-3.0); HEMATOCRIT 28.3 % (37.0-47.0); HEMOGLOBIN 8.8 G/DL (12.0-16.0); LYMPHOCYTES % (AUTO) 9.9 % (20.0-45.0); MEAN CORPUSCULAR VOLUME 92 FL (80-99); MONOCYTES % (AUTO) 7.2 % (1.0-10.0); NEUTROPHILS % (AUTO) 80.9 % (45.0-75.0); PLATELET COUNT 207 K/UL (150-450); RED BLOOD COUNT 3.06 M/UL (4.20-5.40); RED CELL DISTRIBUTION WIDTH 18.8 % (11.6-14.8); WHITE BLOOD COUNT 7.7 K/UL (4.8-10.8)
[2018-08-07 06:46] LABS: ANION GAP 6 mmol/L (5-15); BLOOD UREA NITROGEN 41 mg/dL (7-18); CALCIUM 8.8 MG/DL (8.5-10.1); CARBON DIOXIDE 34 MMOL/L (21-32); CHLORIDE 100 MMOL/L (98-107); CREATININE 3.1 MG/DL (0.55-1.30); PHOSPHORUS 2.4 MG/DL (2.5-4.9); POTASSIUM 2.8 MMOL/L (3.5-5.1); SODIUM 140 MMOL/L (136-145)
--- NOTE | 2018-08-07 06:57 | NUR ---
RESPIRATORY NOTE: Patient received mechanically ventilated on PB 840 with current ordered vent settings. Patient is orally intubated with ETT tube 7.5 with 23cm at the lip line and it is secured with an anchor fast. Bilateral diminished breath sounds were present upon auscultation and small amount of thin/ clear secretions were suctioned without incident. Vent alarms are functional and audible. There is an ambu bag available at the bedside and the vent is connected to a red outlet. Patient appears comfortable at this time. Will continue to monitor.
--- NOTE | 2018-08-07 07:04 | NUR ---
HAND-OFF: Report given to SUDEEP/BALDO.
--- NOTE | 2018-08-07 07:07 | NUR ---
NURSE NOTES: Report received from Rickey RN. Pt awake, alert and oriented x3, able to follow commands. Pt orally intubated ETT 7.5, 23 cm at the lipline, AC 12, TV 500, 30% fiO2 and PEEP5. NGT right nare with 30 cc/hr nephro running. L AV shunt and LA midline noted. RT in the room checking vent settings. Safety measures in place with bed locked and in lowest position, side rails x2 up and bed alarm activated. Will continue to monitor and continue plan of care.
--- NOTE | 2018-08-07 07:48 | NUR ---
RESPIRATORY NOTE: Initiated weaning per Dr's orders. Patient vitals are stable and is tolerating well. RN notified.
--- NOTE | 2018-08-07 08:30 | NUR ---
NURSE NOTES: Dr Robles here to see pt, no new orders. Will continue to monitor.
[2018-08-07] MEDS ORDERED: NS 275ml ONE (08:41)
[2018-08-07] MEDS: Minoxidil 2.5mg tab NG SCH ×2 (08:45→20:25)
[2018-08-07] MEDS: Pantoprazole Inj IVP SCH ×2 (08:45→20:26)
[2018-08-07] MEDS: Amiodarone 200mg tab NG SCH ×2 (08:45→20:25)
[2018-08-07] MEDS: Meropenem 500 MG in NS 55 ML IVPB SCH (08:45)
[2018-08-07] MEDS: Metoprolol Tartrate 12.5mg TAB ORAL SCH (08:46)
--- NOTE | 2018-08-07 08:47 | Pulmonology Progress Note ---
Assessment/Plan Assessment/Plan 1. Hypotension. 2. Sepsis. 3. Atrial fibrillation. 4. Bradycardia. 5. Diabetes mellitus. 6. End-stage renal disease on dialysis. 7. Left lung collapse. s/p bronchoscopy 8. Respiratory failure, acute 9. Dysphagia. 10. Dementia. 11. Anemia 12. Pneumonia PLAN respiratory care noted try to wean; orders written monitor imaging for change oxygen taper and monitor needs aspiration precautions keep negative supportive care will follow up and recommend for change impression, plan, and exam edited and reviewed in detail care discussed with RN medications/laboratory data/nursing notes/ICU care reviewed in detail note reviewed and edited care discussed with RN and RT ICU time spent 38 minutes Subjective ROS Limited/Unobtainable: Yes Allergies: Coded Allergies: No Known Allergies (Unverified , 07/25/18) Subjective care noted and reviewed no distress at present events reviewed Objective Last 24 Hour Vital Signs Date Time Temp Pulse Resp B/P (MAP) Pulse Ox O2 Delivery O2 Flow Rate FiO2 08/07/18 08:46 76 124/15 08/07/18 08:45 124/15 08/07/18 08:00 Mechanical Ventilator Mechanical Ventilator Mechanical Ventilator Mechanical Ventilator 08/07/18 08:00 30 08/07/18 08:00 98.2 76 13 124/15 (51) 95 08/07/18 07:00 73 13 124/17 (52) 97 08/07/18 06:50 75 14 30 08/07/18 06:00 74 14 126/18 (54) 97 08/07/18 05:00 67 12 113/19 (50) 98 08/07/18 04:55 66 12 30 08/07/18 04:00 Mechanical Ventilator Mechanical Ventilator Mechanical Ventilator Mechanical Ventilator 08/07/18 04:00 30 08/07/18 04:00 97.9 70 12 113/18 (49) 98 08/07/18 03:21 76 08/07/18 03:00 76 13 103/19 (47) 96 08/07/18 02:50 82 14 30 08/07/18 02:00 76 15 114/22 (52) 96 08/07/18 01:00 79 14 110/18 (48) 96 08/07/18 00:37 74 14 30 08/07/18 00:00 Mechanical Ventilator Mechanical Ventilator Mechanical Ventilator Mechanical Ventilator 08/07/18 00:00 30 08/07/18 00:00 97.6 76 15 110/18 (48) 96 08/06/18 23:33 78 08/06/18 23:00 79 13 112/21 (51) 96 08/06/18 22:58 69 14 30 08/06/18 22:00 76 13 115/21 (52) 97 08/06/18 21:12 106/17 08/06/18 21:11 67 106/17 08/06/18 21:00 68 12 106/17 (46) 99 08/06/18 20:56 68 18 30 08/06/18 20:00 67 08/06/18 20:00 30 08/06/18 20:00 98.7 67 12 94/20 (44) 98 08/06/18 20:00 Mechanical Ventilator Mechanical Ventilator Mechanical Ventilator Mechanical Ventilator 08/06/18 19:12 69 12 30 08/06/18 19:00 67 12 100/17 (44) 97 08/06/18 18:00 74 13 103/91 (95) 98 08/06/18 17:25 66 13 30 08/06/18 17:01 66 12 85/21 (42) 99 08/06/18 16:00 67 08/06/18 16:00 99.0 65 12 100/20 (46) 98 08/06/18 16:00 Mechanical Ventilator Mechanical Ventilator Mechanical Ventilator Mechanical Ventilator 08/06/18 16:00 30 08/06/18 15:25 67 12 30 08/06/18 15:00 65 12 98/18 (44) 99 08/06/18 14:00 64 13 88/22 (44) 100 08/06/18 13:25 64 12 30 08/06/18 13:00 65 12 93/25 (47) 100 08/06/18 12:00 72 08/06/18 12:00 30 08/06/18 12:00 Mechanical Ventilator Mechanical Ventilator Mechanical Ventilator Mechanical Ventilator 08/06/18 12:00 99.4 68 12 116/22 (53) 100 08/06/18 11:30 77 15 94/77 (83) 99 08/06/18 11:00 66 13 105/14 (44) 99 08/06/18 10:43 66 12 30 08/06/18 10:00 63 10 99/14 (42) 100 08/06/18 09:00 65 7 87/17 (40) 100 Intake and Output 08/06/18 08/07/18 19:00 07:00 Intake Total 415 ml 410 ml Output Total 0 ml 1 ml Balance 415 ml 409 ml IV Total 55 ml Tube Feeding 360 ml 360 ml Other 50 ml Output Urine Total 0 ml 1 ml # Bowel Movements 2 Objective WDWN NAD intubated aware reduced breath sounds bilaterally without rhonchi or wheeze [id number] without MRG NABS nontender no HSM no CCE cachectic nonfocal Laboratory Tests 08/07/18 04:50: White Blood Count 7.7, Red Blood Count 3.06L, Hemoglobin 8.8L, Hematocrit 28.3L , Mean Corpuscular Volume 92, Mean Corpuscular Hemoglobin 28.7, Mean Corpuscular Hemoglobin Concent 31.0L, Red Cell Distribution Width 18.8H, Platelet Count 207, Mean Platelet Volume 6.2L, Neutrophils (%) (Auto) 80.9H, Lymphocytes (%) (Auto) 9.9L, Monocytes (%) (Auto) 7.2, Eosinophils (%) (Auto) 1.5, Basophils (%) (Auto) 0.5, Sodium Level 140, Potassium Level 2.8L, Chloride Level 100, Carbon Dioxide Level 34H, Anion Gap 6, Blood Urea Nitrogen 41H, Creatinine 3.1H, Estimat Glomerular Filtration Rate , Glucose Level 121H, Calcium Level 8.8, Phosphorus Level 2.4L, Magnesium Level 2.3 Current Medications Medications (Trade) Dose Ordered Sig/Renetta Route PRN Reason Start Time Stop Time Status Last Admin Dose Admin Acetaminophen (Tylenol) 650 mg Q6H PRN ORAL Mild Pain/Temp > 100.5 08/02/18 14:15 09/01/18 14:14 08/06/18 05:08 Amiodarone HCl (Cordarone) 200 mg EVERY 12 HOURS NG 08/06/18 21:00 09/03/18 13:59 08/07/18 08:45 Chlorhexidine Gluconate (Rylie-Hex 2%) 1 applic DAILY@1999 TOPIC 07/26/18 20:00 08/25/18 19:59 08/06/18 19:42 Collagenase (Santyl) 1 applic QHS TOPIC 08/04/18 21:00 09/03/18 20:59 08/06/18 21:11 Epoetin Paul (Procrit (for ESRD on dialysis)) 10,000 units WED-WED-WED SUBQ 07/27/18 21:00 08/26/18 20:59 08/05/18 21:28 Heparin Sodium (Porcine) (Heparin 5000 units/ml) 5,000 units EVERY 8 HOURS SUBQ 08/05/18 22:00 09/04/18 21:59 08/07/18 05:35 Meropenem 500 mg/ Sodium Chloride 55 ml @ 110 mls/hr DAILY IVPB 07/27/18 12:00 08/10/18 11:59 08/07/18 08:45 Metoprolol Tartrate (Lopressor) 12.5 mg Q12HR ORAL 08/01/18 21:00 08/31/18 20:59 08/07/18 08:46 Minoxidil (Loniten) 5 mg Q12HR NG 07/31/18 21:00 08/30/18 20:59 08/07/18 08:45 Pantoprazole (Protonix) 40 mg Q12HR IVP 07/25/18 21:00 08/25/18 08:59 08/07/18 08:45 Sodium Chloride 1,000 ml @ 500 mls/hr Q2H PRN IVLG sbp<90 during hd 08/05/18 07:51 09/04/18 07:50 Quan Robles MD Aug 07, 2018 08:47
--- NOTE | 2018-08-07 09:15 | NUR ---
RESPIRATORY NOTE: RT was called to the unit, per RN patient had self extubated. Arrived to find patient fully extubated with ETT tube in hand. Suctioned mouth without incident and placed patient on Non-Rebreather 100% at 15L. There was no stridor noted. Patient was agitated and non compliant however no respiratory distress noted. Will follow with ABG. Patient maintaining sats. Will continue to monitor.
--- NOTE | 2018-08-07 09:37 | NUR ---
NURSE NOTES: Pt self extubated, pt pulling on NGT. Got order for bilateral wrist restraints. Applied 100% non-rebreather, O2 saturation 100%. Pt agitated and talkative. Dr He here to see pt. Electrolyte orders put in. Will continue to monitor.
--- NOTE | 2018-08-07 09:40 | Nephrology Progress Note ---
Assessment/Plan Assessment Seee below Plan MOF, improving slowly. Extubated Sepsis due to infected diabetic ulcers. On IV Abx. Followed by ID, Vasc. Sx, Podiatry. ESRD HD q MWF Anemia of CKD , DARRYN high dose. Transfuse PRN. A. 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 with LAE. LVEF 65% . Anticoagulate when stable. DW Dr. Butler. In and out A. Fib. See orders. Subjective Subjective Self extubated. Anxious but doing well! Objective Objective Last 24 Hour Vital Signs Date Time Temp Pulse Resp B/P (MAP) Pulse Ox O2 Delivery O2 Flow Rate FiO2 08/07/18 08:48 95 08/07/18 08:46 76 124/15 08/07/18 08:45 124/15 08/07/18 08:31 90 23 30 08/07/18 08:00 Mechanical Ventilator Mechanical Ventilator Mechanical Ventilator Mechanical Ventilator 08/07/18 08:00 30 08/07/18 08:00 98.2 76 13 124/15 (51) 95 08/07/18 07:00 73 13 124/17 (52) 97 08/07/18 06:50 75 14 30 08/07/18 06:00 74 14 126/18 (54) 97 08/07/18 05:00 67 12 113/19 (50) 98 08/07/18 04:55 66 12 30 08/07/18 04:00 Mechanical Ventilator Mechanical Ventilator Mechanical Ventilator Mechanical Ventilator 08/07/18 04:00 30 08/07/18 04:00 97.9 70 12 113/18 (49) 98 08/07/18 03:21 76 08/07/18 03:00 76 13 103/19 (47) 96 08/07/18 02:50 82 14 30 08/07/18 02:00 76 15 114/22 (52) 96 08/07/18 01:00 79 14 110/18 (48) 96 08/07/18 00:37 74 14 30 08/07/18 00:00 Mechanical Ventilator Mechanical Ventilator Mechanical Ventilator Mechanical Ventilator 08/07/18 00:00 30 08/07/18 00:00 97.6 76 15 110/18 (48) 96 08/06/18 23:33 78 08/06/18 23:00 79 13 112/21 (51) 96 08/06/18 22:58 69 14 30 08/06/18 22:00 76 13 115/21 (52) 97 18 21:12 106/17 08/06/18 21:11 67 106/17 08/06/18 21:00 68 12 106/17 (46) 99 08/06/18 20:56 68 18 30 08/06/18 20:00 67 08/06/18 20:00 30 08/06/18 20:00 98.7 67 12 94/20 (44) 98 08/06/18 20:00 Mechanical Ventilator Mechanical Ventilator Mechanical Ventilator Mechanical Ventilator 08/06/18 19:12 69 12 30 08/06/18 19:00 67 12 100/17 (44) 97 08/06/18 18:00 74 13 103/91 (95) 98 08/06/18 17:25 66 13 30 08/06/18 17:01 66 12 85/21 (42) 99 08/06/18 16:00 67 08/06/18 16:00 99.0 65 12 100/20 (46) 98 08/06/18 16:00 Mechanical Ventilator Mechanical Ventilator Mechanical Ventilator Mechanical Ventilator 08/06/18 16:00 30 08/06/18 15:25 67 12 30 08/06/18 15:00 65 12 98/18 (44) 99 08/06/18 14:00 64 13 88/22 (44) 100 08/06/18 13:25 64 12 30 08/06/18 13:00 65 12 93/25 (47) 100 08/06/18 12:00 72 08/06/18 12:00 30 08/06/18 12:00 Mechanical Ventilator Mechanical Ventilator Mechanical Ventilator Mechanical Ventilator 08/06/18 12:00 99.4 68 12 116/22 (53) 100 08/06/18 11:30 77 15 94/77 (83) 99 08/06/18 11:00 66 13 105/14 (44) 99 08/06/18 10:43 66 12 30 08/06/18 10:00 63 10 99/14 (42) 100 Intake and Output 08/06/18 08/07/18 19:00 07:00 Intake Total 415 ml 410 ml Output Total 0 ml 1 ml Balance 415 ml 409 ml IV Total 55 ml Tube Feeding 360 ml 360 ml Other 50 ml Output Urine Total 0 ml 1 ml # Bowel Movements 2 Laboratory Tests 08/07/18 04:50: White Blood Count 7.7, Red Blood Count 3.06L, Hemoglobin 8.8L, Hematocrit 28.3L , Mean Corpuscular Volume 92, Mean Corpuscular Hemoglobin 28.7, Mean Corpuscular Hemoglobin Concent 31.0L, Red Cell Distribution Width 18.8H, Platelet Count 207, Mean Platelet Volume 6.2L, Neutrophils (%) (Auto) 80.9H, Lymphocytes (%) (Auto) 9.9L, Monocytes (%) (Auto) 7.2, Eosinophils (%) (Auto) 1.5, Basophils (%) (Auto) 0.5, Sodium Level 140, Potassium Level 2.8L, Chloride Level 100, Carbon Dioxide Level 34H, Anion Gap 6, Blood Urea Nitrogen 41H, Creatinine 3.1H, Estimat Glomerular Filtration Rate , Glucose Level 121H, Calcium Level 8.8, Phosphorus Level 2.4L, Magnesium Level 2.3 Height (Feet): 5 Height (Inches): 2.00 Weight (Pounds): 120 Objective Extubated. BP 189/70 BP measured more accurately with a smaller cuff placed on rt. FA. Cv IRR/IRR Lungs B ronchi. Abd SNT. BS + E Rt. foot diabetic ulcers Chase He MD Aug 07, 2018 09:40
[2018-08-07] MEDS: Labetalol 200mg tab GT SCH ×2 (10:02→20:26)
--- NOTE | 2018-08-07 10:04 | NUR ---
CASE MANAGEMENT:REVIEW 08/07/18 SI: ACUTE RESPIRATORY FAILURE..INTUBATED SEPSIS. PNA. AFIB 98.2 76 13 124/15 95% ON VENT SUPPORT W/30% FIO2 PCO2+57.2 HCO3+34.7 K-2.8 BUN+41 CR+3.1 PHOS-2.4 H/H-8.8/28.3 IS: IV K-PHOS X1 IV MEROPENEM QD LABETALOL NG Q12 AMIODARONE NG Q8HRS HEPARIN SQ Q8HRS MINOXIDIL NG Q12 PROCRIT SQ MWF IV PROTONIX Q12 : ICU STATUS DCP; PATIENT IS FROM [facility]
--- NOTE | 2018-08-07 10:08 | NUR ---
NURSE NOTES: Dr Robles notified of self extubation, post ABG levels. said ok to leave pt on non-rebreather. Will continue to monitor.
--- NOTE | 2018-08-07 10:09 | NUR ---
NURSE NOTES: Called IRC and spoke to Pat to confirm HD tx for tomorrow 08/08/18 per MD order.
[2018-08-07] MEDS: Vitamin D 1000 IU Tab GT SCH (10:25)
[2018-08-07] MEDS ORDERED: Potassium Phosphate 30 MM in NS 275 ML IV SCH (10:30)
--- NOTE | 2018-08-07 13:45 | NUR ---
NURSE NOTES: Dr Damico here to see pt. Discussed HR and BP post self extubation. Will continue to monitor.
--- NOTE | 2018-08-07 14:06 | Cardiology Progress Note ---
Assessment/Plan Problem List: (1) Paroxysmal A-fib (2) Bradycardia (3) Sepsis (4) Hypotension (5) Pneumonia Status: stable, progressing Status Narrative Pt was being weaned from vent today, but self-extubated this am. She is maintaining adequate oxygen sats so far, on FM oxygen She is normotensive, off pressors. She had an episode of AF lasting a few minutes and became hypertensive, shortly after extubated. AF reverted back to SR spontaneously. Transient bradycardia to 40 bpm after given labetalol 200 mg for hypertension. Assessment/Plan Continue supplemental o2 per FM. Followup CXR, ABG w/ adequate po2, elev pco2, but nl ph. Will continue amiodarone 200 mg bid per ng tube, as pt still w/ brief episodes of AF. May need to dec labetalol or change to other agent ( ? hydralazine) if sustained bradycardia. HD per Dr. He. Subjective ROS Limited/Unobtainable: No Subjective Cardiology for Dr. Butler Pt self-extubated this am. She c/o dyspnea. Currently on FM oxygen Objective Last 24 Hour Vital Signs Date Time Temp Pulse Resp B/P (MAP) Pulse Ox O2 Delivery O2 Flow Rate FiO2 08/07/18 13:00 79 18 140/22 (61) 100 08/07/18 12:00 30 08/07/18 12:00 Mechanical Ventilator Mechanical Ventilator Mechanical Ventilator Mechanical Ventilator 08/07/18 12:00 98.0 84 25 142/28 (66) 95 08/07/18 12:00 73 08/07/18 11:00 70 20 122/10 (47) 100 08/07/18 10:02 116 202/65 08/07/18 10:00 72 23 111/13 (45) 100 08/07/18 09:06 Non-Rebreather 15.0 100 08/07/18 09:06 98 Non-Rebreather 15.0 100 08/07/18 09:05 Non-Rebreather 15.0 100 08/07/18 09:00 126 25 189/43 (91) 98 08/07/18 08:48 95 08/07/18 08:46 76 124/15 08/07/18 08:45 124/15 08/07/18 08:31 90 23 30 08/07/18 08:00 Mechanical Ventilator Mechanical Ventilator Mechanical Ventilator Mechanical Ventilator 08/07/18 08:00 30 08/07/18 08:00 98.2 76 13 124/15 (51) 95 08/07/18 08:00 103 08/07/18 07:00 73 13 124/17 (52) 97 08/07/18 06:50 75 14 30 08/07/18 06:00 74 14 126/18 (54) 97 08/07/18 05:00 67 12 113/19 (50) 98 08/07/18 04:55 66 12 30 08/07/18 04:00 Mechanical Ventilator Mechanical Ventilator Mechanical Ventilator Mechanical Ventilator 08/07/18 04:00 30 08/07/18 04:00 97.9 70 12 113/18 (49) 98 08/07/18 03:21 76 08/07/18 03:00 76 13 103/19 (47) 96 08/07/18 02:50 82 14 30 08/07/18 02:00 76 15 114/22 (52) 96 08/07/18 01:00 79 14 110/18 (48) 96 08/07/18 00:37 74 14 30 08/07/18 00:00 Mechanical Ventilator Mechanical Ventilator Mechanical Ventilator Mechanical Ventilator 08/07/18 00:00 30 08/07/18 00:00 97.6 76 15 110/18 (48) 96 08/06/18 23:33 78 08/06/18 23:00 79 13 112/21 (51) 96 08/06/18 22:58 69 14 30 08/06/18 22:00 76 13 115/21 (52) 97 08/06/18 21:12 106/17 08/06/18 21:11 67 106/17 08/06/18 21:00 68 12 106/17 (46) 99 08/06/18 20:56 68 18 30 08/06/18 20:00 67 08/06/18 20:00 30 08/06/18 20:00 98.7 67 12 94/20 (44) 98 08/06/18 20:00 Mechanical Ventilator Mechanical Ventilator Mechanical Ventilator Mechanical Ventilator 08/06/18 19:12 69 12 30 08/06/18 19:00 67 12 100/17 (44) 97 08/06/18 18:00 74 13 103/91 (95) 98 08/06/18 17:25 66 13 30 08/06/18 17:01 66 12 85/21 (42) 99 08/06/18 16:00 67 08/06/18 16:00 99.0 65 12 100/20 (46) 98 08/06/18 16:00 Mechanical Ventilator Mechanical Ventilator Mechanical Ventilator Mechanical Ventilator 08/06/18 16:00 30 08/06/18 15:25 67 12 30 08/06/18 15:00 65 12 98/18 (44) 99 08/06/18 14:00 64 13 88/22 (44) 100 General Appearance: WD/WN, no apparent distress, alert EENT: PERRL/EOMI Neck: supple, no JVD Rhythm: NSR Cardiovascular: normal rate, regular rhythm, no gallop/murmur Respiratory/Chest: no respiratory distress, other - fairly clear bilaterally Abdomen: non tender, soft Extremities: no swelling, other - R leg dressing Intake and Output 08/06/18 08/07/18 19:00 07:00 Intake Total 415 ml 410 ml Output Total 0 ml 1 ml Balance 415 ml 409 ml IV Total 55 ml Tube Feeding 360 ml 360 ml Other 50 ml Output Urine Total 0 ml 1 ml # Bowel Movements 2 Laboratory Tests Test 08/07/18 04:50 08/07/18 09:38 White Blood Count 7.7 K/UL (4.8-10.8) Red Blood Count 3.06 M/UL (4.20-5.40) L Hemoglobin 8.8 G/DL (12.0-16.0) L Hematocrit 28.3 % (37.0-47.0) L Mean Corpuscular Volume 92 FL (80-99) Mean Corpuscular Hemoglobin 28.7 PG (27.0-31.0) Mean Corpuscular Hemoglobin Concent 31.0 G/DL (32.0-36.0) L Red Cell Distribution Width 18.8 % (11.6-14.8) H Platelet Count 207 K/UL (150-450) Mean Platelet Volume 6.2 FL (6.5-10.1) L Neutrophils (%) (Auto) 80.9 % (45.0-75.0) H Lymphocytes (%) (Auto) 9.9 % (20.0-45.0) L Monocytes (%) (Auto) 7.2 % (1.0-10.0) Eosinophils (%) (Auto) 1.5 % (0.0-3.0) Basophils (%) (Auto) 0.5 % (0.0-2.0) Sodium Level 140 MMOL/L (136-145) Potassium Level 2.8 MMOL/L (3.5-5.1) L Chloride Level 100 MMOL/L (98-107) Carbon Dioxide Level 34 MMOL/L (21-32) H Anion Gap 6 mmol/L (5-15) Blood Urea Nitrogen 41 mg/dL (7-18) H Creatinine 3.1 MG/DL (0.55-1.30) H Estimat Glomerular Filtration Rate mL/min (>60) Glucose Level 121 MG/DL (74-106) H Calcium Level 8.8 MG/DL (8.5-10.1) Phosphorus Level 2.4 MG/DL (2.5-4.9) L Magnesium Level 2.3 MG/DL (1.8-2.4) Arterial Blood pH 7.400 (7.350-7.450) Arterial Blood Partial Pressure CO2 57.2 mmHg (35.0-45.0) *H Arterial Blood Partial Pressure O2 99.5 mmHg (75.0-100.0) Arterial Blood HCO3 34.7 mmol/L (22.0-26.0) H Arterial Blood Oxygen Saturation 97.0 % (95-100) Arterial Blood Base Excess 8.3 (-2-2) H Silverio Test Positive Jennifer Manuel MD Aug 07, 2018 14:06
[2018-08-07] MEDS ORDERED: LORazepam Inj 2mg/ml 1ml IM PRN (14:45)
[2018-08-07] MEDS ORDERED: LORazepam Inj 2mg/ml 1ml IV PRN (14:52)
--- NOTE | 2018-08-07 15:07 | General Surgery Progress Note ---
General Surgery-Progress Note Subjective Procedure Performed left subclavian central venous catheter insertion Additional Comments self extubated. okay right now but desaturates quickly without O2 Objective Last 24 Hour Vital Signs Date Time Temp Pulse Resp B/P (MAP) Pulse Ox O2 Delivery O2 Flow Rate FiO2 08/07/18 14:00 78 22 136/31 (66) 100 08/07/18 13:00 79 18 140/22 (61) 100 08/07/18 12:00 30 08/07/18 12:00 Mechanical Ventilator Mechanical Ventilator Mechanical Ventilator Mechanical Ventilator 08/07/18 12:00 98.0 84 25 142/28 (66) 95 08/07/18 12:00 73 08/07/18 11:00 70 20 122/10 (47) 100 08/07/18 10:02 116 202/65 08/07/18 10:00 72 23 111/13 (45) 100 08/07/18 09:06 Non-Rebreather 15.0 100 08/07/18 09:06 98 Non-Rebreather 15.0 100 08/07/18 09:05 Non-Rebreather 15.0 100 08/07/18 09:00 126 25 189/43 (91) 98 08/07/18 08:48 95 08/07/18 08:46 76 124/15 08/07/18 08:45 124/15 08/07/18 08:31 90 23 30 08/07/18 08:00 Mechanical Ventilator Mechanical Ventilator Mechanical Ventilator Mechanical Ventilator 08/07/18 08:00 30 08/07/18 08:00 98.2 76 13 124/15 (51) 95 08/07/18 08:00 103 08/07/18 07:00 73 13 124/17 (52) 97 08/07/18 06:50 75 14 30 08/07/18 06:00 74 14 126/18 (54) 97 08/07/18 05:00 67 12 113/19 (50) 98 08/07/18 04:55 66 12 30 08/07/18 04:00 Mechanical Ventilator Mechanical Ventilator Mechanical Ventilator Mechanical Ventilator 08/07/18 04:00 30 08/07/18 04:00 97.9 70 12 113/18 (49) 98 08/07/18 03:21 76 08/07/18 03:00 76 13 103/19 (47) 96 08/07/18 02:50 82 14 30 08/07/18 02:00 76 15 114/22 (52) 96 08/07/18 01:00 79 14 110/18 (48) 96 08/07/18 00:37 74 14 30 08/07/18 00:00 Mechanical Ventilator Mechanical Ventilator Mechanical Ventilator Mechanical Ventilator 08/07/18 00:00 30 08/07/18 00:00 97.6 76 15 110/18 (48) 96 08/06/18 23:33 78 08/06/18 23:00 79 13 112/21 (51) 96 08/06/18 22:58 69 14 30 08/06/18 22:00 76 13 115/21 (52) 97 08/06/18 21:12 106/17 08/06/18 21:11 67 106/17 08/06/18 21:00 68 12 106/17 (46) 99 08/06/18 20:56 68 18 30 08/06/18 20:00 67 08/06/18 20:00 30 08/06/18 20:00 98.7 67 12 94/20 (44) 98 08/06/18 20:00 Mechanical Ventilator Mechanical Ventilator Mechanical Ventilator Mechanical Ventilator 08/06/18 19:12 69 12 30 08/06/18 19:00 67 12 100/17 (44) 97 08/06/18 18:00 74 13 103/91 (95) 98 08/06/18 17:25 66 13 30 08/06/18 17:01 66 12 85/21 (42) 99 08/06/18 16:00 67 08/06/18 16:00 99.0 65 12 100/20 (46) 98 08/06/18 16:00 Mechanical Ventilator Mechanical Ventilator Mechanical Ventilator Mechanical Ventilator 08/06/18 16:00 30 08/06/18 15:25 67 12 30 I&O Intake and Output 08/06/18 08/07/18 18:59 06:59 Intake Total 415 ml 410 ml Output Total 0 ml 1 ml Balance 415 ml 409 ml IV Total 55 ml Tube Feeding 360 ml 360 ml Other 50 ml Output Urine Total 0 ml 1 ml # Bowel Movements 2 Dressing: saturated Wound: other Drains: other Cardiovascular: RSR Respiratory: decreased breath sounds Abdomen: soft, non-tender, present bowel sounds Extremities: other Laboratory Tests Test 08/07/18 04:50 08/07/18 09:38 White Blood Count 7.7 K/UL (4.8-10.8) Red Blood Count 3.06 M/UL (4.20-5.40) L Hemoglobin 8.8 G/DL (12.0-16.0) L Hematocrit 28.3 % (37.0-47.0) L Mean Corpuscular Volume 92 FL (80-99) Mean Corpuscular Hemoglobin 28.7 PG (27.0-31.0) Mean Corpuscular Hemoglobin Concent 31.0 G/DL (32.0-36.0) L Red Cell Distribution Width 18.8 % (11.6-14.8) H Platelet Count 207 K/UL (150-450) Mean Platelet Volume 6.2 FL (6.5-10.1) L Neutrophils (%) (Auto) 80.9 % (45.0-75.0) H Lymphocytes (%) (Auto) 9.9 % (20.0-45.0) L Monocytes (%) (Auto) 7.2 % (1.0-10.0) Eosinophils (%) (Auto) 1.5 % (0.0-3.0) Basophils (%) (Auto) 0.5 % (0.0-2.0) Sodium Level 140 MMOL/L (136-145) Potassium Level 2.8 MMOL/L (3.5-5.1) L Chloride Level 100 MMOL/L (98-107) Carbon Dioxide Level 34 MMOL/L (21-32) H Anion Gap 6 mmol/L (5-15) Blood Urea Nitrogen 41 mg/dL (7-18) H Creatinine 3.1 MG/DL (0.55-1.30) H Estimat Glomerular Filtration Rate mL/min (>60) Glucose Level 121 MG/DL (74-106) H Calcium Level 8.8 MG/DL (8.5-10.1) Phosphorus Level 2.4 MG/DL (2.5-4.9) L Magnesium Level 2.3 MG/DL (1.8-2.4) Arterial Blood pH 7.400 (7.350-7.450) Arterial Blood Partial Pressure CO2 57.2 mmHg (35.0-45.0) *H Arterial Blood Partial Pressure O2 99.5 mmHg (75.0-100.0) Arterial Blood HCO3 34.7 mmol/L (22.0-26.0) H Arterial Blood Oxygen Saturation 97.0 % (95-100) Arterial Blood Base Excess 8.3 (-2-2) H Silverio Test Positive Plan Problems: (1) Sepsis Assessment & Plan: acute decompensation hypotensive bradycardic respiratory decompensation requiring intubation and vent support - failed extubation self extubated this AM will monitor supplemental O2 may need re-intubation cont current ICU care and management may need trach if unable to wean off went with history of failed extubation thank you will follow with recs (2) Hypotension (3) Bradycardia (4) Altered mental status (5) Decubital ulcer Assessment & Plan: Patient with multiple pressure injuries where have been present since admission. Full thickness pressure injury to sacrum (L)(L)2.4cm x (W)4.4cm x (D)0.9cm, undermining 12-12 with tunneling 9-10 by 11.3cm. In close proximity to sacral wound on L buttocks purple ,indurated area with small area of slough measuring (L)0.6cm x (W)0.5cm noted. Arched surgical scar noted to L buttocks at site of tunneling. Resolving pressure injury noted to R ischium (L)3cm x (W)2cm. Wound bed epithelialized with maroon discoloration without induration periwound. Closed area with white pocket and purple margins noted to distal,carmela R tibia (L)6cm x (W)2.7cm Full thickness wound noted to distal/medial RLE (L)6.2cm x (W)3.8cm .Wound noted to have 95% mixed slough /necrosis ,marginal erythema. Wound malodorous. Wound posterior R tibia (L)4.7cm x (W) 3cm ,100% necrotic with marginal erythema. Dry eschar with marginal erythema (L)0.5cm x (W)0.7cm noted to medial R heel.Non-blanchable erythema noted to medial L malleolus. Dry brown eschar noted to medial L 1st malleolus (L)1.4cm x (W)1cm. L heel and lateral aspect boggy with non-blanchable erythema. Tx.Plan: Cleanse sacral wound with Saline.Loose pack with Hydrogel impregnated packing strip (Attention to tunneled area at 9-10).Cover with Optifoam drsg Daily and prn. Reposition at least every 2hours or as tolerated. Air Fluidized mattress. Off-load heels with pillow. Appreciate Podiatry and Vascular input Plan for anigo late by Vascular Reji Nails Aug 07, 2018 15:07
--- NOTE | 2018-08-07 17:23 | NUR ---
NURSE NOTES: Dressing changed on right leg. Pictures taken. Son at bedside. Will continue to monitor.
--- NOTE | 2018-08-07 17:35 | NUR ---
NURSE NOTES: Pt awoke from her nap. SBP in 190s. Dr Damico called for prn meds. Will continue to monitor.
[2018-08-07] MEDS ORDERED: HydrALAZINE 25mg tab ORAL SCH (17:54)
--- NOTE | 2018-08-07 18:06 | NUR ---
NURSE NOTES: Prn hydralazine given as per Dr Manuel. Will continue to monitor.
--- NOTE | 2018-08-07 19:19 | NUR ---
HAND-OFF: Report given to Desean BLAND.
--- NOTE | 2018-08-07 19:30 | NUR ---
NURSE NOTES: Patient received from Vivi RN. Patient noted to be awake, verbal at times and confused at times. Patient was extubated today around 0900 and since then has had Non-rebreather mask at 15L/min...100% O2. Patient noted to have SHARON midline and a right AV shunt with brute and thrill noted on auscultation. BP now is 175/48, 100% SpO2, HR 80SR, and RR of 18. temperature is 98.6F. Patient noted to have several wounds. P200 mattress noted. L NGT running Npero at 30ml/hr. Patient is running NS TKO at midline. NAD at this time, patient seems to be relaxed and content, bilateral writs restraints also noted, without any skin issues on wrist, and pulse were also noted.
--- NOTE | 2018-08-07 20:00 | NUR ---
NURSE NOTES: Patient repositioned and provided oral care, released from the restraints to provided passive range of motion and then reapplied, due to observing removing devices. Patient remains on Non-rebreather mask at 15L/100%O2. Saturating 100%, When removed from non-rebreather mask patient begins to desaturate quickly. No acute distress at this time, will continue to monitor patients progress.
[2018-08-07] MEDS: Dyna-Hex 2% Top Sol 2oz TOPIC SCH (20:25)
--- NOTE | 2018-08-07 22:00 | NUR ---
NURSE NOTES: Repositioned patient, provided oral care and suctioned. Patient remains on non-rebreather mask. VS have been stable, no acute distress. Will continue to monitor.
[2018-08-08] VITALS (24 sets, daily range): BP systolic 94–168; BP diastolic 14–51
--- NOTE | 2018-08-08 | NUR ---
NURSE NOTES: Patient placed on venturi mask 55% Fio2, 12L/O2. Patients saturating above 95%. F/u post extubation ABG was done, see logs for results. Vitals has been stable, RR ranging from 16-24. No acute distress at this time. Will continue to monitor.
--- NOTE | 2018-08-08 02:00 | NUR ---
NURSE NOTES: Patent repositioned, suctioned and provided oral care, no acute distress at this time. NAD
--- NOTE | 2018-08-08 04:00 | NUR ---
NURSE NOTES: Patent repositioned, suctioned and provided oral care, no acute distress at this time. NAD, Patient cleaned, and new dressings applied.
--- NOTE | 2018-08-08 06:00 | NUR ---
NURSE NOTES: Patient remains on Venturi mask 12L/55%, Patient provided oral care. New Feeding and tubing hung. Vitals remains stable, will continue to monitor.
[2018-08-08] MEDS: Heparin 5000 units/ml inj SUBQ SCH ×3 (06:04→22:00)
--- NOTE | 2018-08-08 07:05 | NUR ---
HAND-OFF: Report given to Sruthi BLAND
--- NOTE | 2018-08-08 07:10 | NUR ---
NURSE NOTES: Report received from Desean Billingsley RN.Pt resting quietly in bed awake,noted no resp distress on Venturi mask 55% Fio2 12L,SR on the monitor NGTF Nepro at 30 ml/hr in placed per auscultation,,no residual noted ,Pt anuric,HD pt,with AV Shunt to SHARON,and IV MIDLINE to FLACO intact,skin warm and dry with generalized edema ,bilat upper and lower extremities,with bilat wrist restraints in placed,HOB elevated,SR up x2 bed locked in lowest position,will continue with plan of care.
--- NOTE | 2018-08-08 07:43 | Nephrology Progress Note ---
Assessment/Plan Assessment Seee below Plan MOF, improving slowly. Extubated Sepsis due to infected diabetic ulcers. On IV Abx. Followed by ID, Vasc. Sx, Podiatry. ESRD HD q MWF Anemia of CKD , DARRYN high dose. Transfuse PRN. A. 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 with LAE. LVEF 65% . Anticoagulate when stable. DW Dr. Bulter. In and out A. Fib. See orders. Subjective Subjective Self extubated. Anxious but doing well! Objective Objective Last 24 Hour Vital Signs Date Time Temp Pulse Resp B/P (MAP) Pulse Ox O2 Delivery O2 Flow Rate FiO2 08/08/18 07:00 87 24 116/41 (66) 100 08/08/18 06:00 69 24 134/23 (60) 100 08/08/18 05:00 99.1 83 20 160/42 (81) 98 08/08/18 05:00 85 23 149/36 (73) 100 08/08/18 04:00 76 08/08/18 04:00 12.0 55 08/08/18 04:00 Venturi Mask 12.0 Venturi Mask 15.0 Venturi Mask 12.0 Venturi Mask 08/08/18 03:00 83 23 158/39 (78) 100 08/08/18 02:00 81 20 154/41 (78) 100 08/08/18 01:00 82 22 165/40 (81) 96 08/08/18 00:00 Venturi Mask 12.0 Venturi Mask 15.0 Venturi Mask 12.0 Venturi Mask 08/08/18 00:00 98.5 78 20 168/51 (90) 95 08/08/18 00:00 78 08/08/18 00:00 12.0 55 08/07/18 23:00 72 24 145/37 (73) 96 08/07/18 22:00 67 17 134/26 (62) 100 08/07/18 21:00 64 23 151/36 (74) 100 08/07/18 20:26 86 190/40 08/07/18 20:25 190/40 08/07/18 20:00 66 08/07/18 20:00 15.0 08/07/18 20:00 97.9 66 20 165/38 (80) 100 08/07/18 20:00 Non-Rebreather 15.0 Non-Rebreather 15.0 Non-Rebreather 15.0 Non-Rebreather 08/07/18 19:34 100 Non-Rebreather 15.0 100 08/07/18 19:34 Non-Rebreather 15.0 100 08/07/18 19:00 84 18 183/41 (88) 100 08/07/18 18:03 188/51 08/07/18 18:00 82 20 184/82 (116) 100 08/07/18 17:00 79 20 189/47 (94) 100 08/07/18 16:00 64 08/07/18 16:00 15.0 08/07/18 16:00 97.0 76 20 172/33 (79) 100 08/07/18 16:00 Non-Rebreather 15.0 Mechanical Ventilator 15.0 Non-Rebreather 15.0 Non-Rebreather 08/07/18 15:00 67 19 108/18 (48) 100 08/07/18 14:00 78 22 136/31 (66) 100 08/07/18 13:00 79 18 140/22 (61) 100 08/07/18 12:00 15.0 08/07/18 12:00 Non-Rebreather 15.0 Non-Rebreather 15.0 Non-Rebreather 15.0 Non-Rebreather 15.0 08/07/18 12:00 98.0 84 25 142/28 (66) 95 08/07/18 12:00 73 08/07/18 11:00 70 20 122/10 (47) 100 08/07/18 10:02 116 202/65 08/07/18 10:00 72 23 111/13 (45) 100 08/07/18 09:06 Non-Rebreather 15.0 100 08/07/18 09:06 98 Non-Rebreather 15.0 100 08/07/18 09:05 Non-Rebreather 15.0 100 08/07/18 09:00 126 25 189/43 (91) 98 08/07/18 08:48 95 08/07/18 08:46 76 124/15 08/07/18 08:45 124/15 08/07/18 08:31 90 23 30 08/07/18 08:00 Mechanical Ventilator Mechanical Ventilator Mechanical Ventilator Mechanical Ventilator 08/07/18 08:00 30 08/07/18 08:00 98.2 76 13 124/15 (51) 95 08/07/18 08:00 103 Intake and Output 08/07/18 08/08/18 19:00 07:00 Intake Total 360 ml 410 ml Output Total 0 ml 0 ml Balance 360 ml 410 ml Free Water 50 ml Tube Feeding 360 ml 360 ml Output Urine Total 0 ml 0 ml # Bowel Movements 3 Laboratory Tests 08/07/18 09:38: Arterial Blood pH 7.400, Arterial Blood Partial Pressure CO2 57.2*H, Arterial Blood Partial Pressure O2 99.5, Arterial Blood HCO3 34.7H, Arterial Blood Oxygen Saturation 97.0, Arterial Blood Base Excess 8.3H, Silverio Test Positive 08/07/18 22:57: Arterial Blood pH 7.413, Arterial Blood Partial Pressure CO2 53.3H, Arterial Blood Partial Pressure O2 71.6L, Arterial Blood HCO3 33.3H, Arterial Blood Oxygen Saturation 93.1L, Arterial Blood Base Excess 7.5H, Silverio Test Positive Height (Feet): 5 Height (Inches): 2.00 Weight (Pounds): 123 Objective Extubated. BP 189/70 BP measured more accurately with a smaller cuff placed on rt. FA. Cv IRR/IRR Lungs B ronchi. Abd SNT. BS + E Rt. foot diabetic ulcers Chase He MD Aug 08, 2018 07:43
[2018-08-08] MEDS: Minoxidil 2.5mg tab NG SCH ×2 (09:00→21:00)
[2018-08-08] MEDS: Labetalol 200mg tab GT SCH (09:00)
[2018-08-08] MEDS: Amiodarone 200mg tab NG SCH ×2 (09:00→21:00)
--- NOTE | 2018-08-08 09:13 | Pulmonology Progress Note ---
Assessment/Plan Assessment/Plan IMPRESSION: 1. Hypotension. 2. Sepsis. 3. Atrial fibrillation. 4. Bradycardia. 5. Diabetes mellitus. 6. End-stage renal disease on dialysis. 7. Left lung collapse. Resolved 8. Respiratory failure. Extubated 9. Dysphagia. 10. Dementia. 11. Anemia 12. Pneumonia DISCUSSION: 1. Continue medications. 2. CXR improved 3. status post bronchoscopy 4. Central access 5. Use broad-spectrum antibiotics. 6. continue weaning attempts CXR improved Andres Allan M.D. Subjective Interval Events: Extubated Constitutional: Reports: no symptoms HEENT: Repors: no symptoms Respiratory: Reports: no symptoms Cardiovascular: Reports: no symptoms Gastrointestinal/Abdominal: Reports: no symptoms Genitourinary: Reports: no symptoms Allergies: Coded Allergies: No Known Allergies (Unverified , 07/25/18) Objective Last 24 Hour Vital Signs Date Time Temp Pulse Resp B/P (MAP) Pulse Ox O2 Delivery O2 Flow Rate FiO2 08/08/18 09:02 86 22 129/30 (63) 100 08/08/18 08:00 85 08/08/18 08:00 96.0 85 23 129/22 (57) 99 08/08/18 08:00 12.0 55 08/08/18 07:00 87 24 116/41 (66) 100 08/08/18 06:00 69 24 134/23 (60) 100 08/08/18 05:00 99.1 83 20 160/42 (81) 98 08/08/18 05:00 85 23 149/36 (73) 100 08/08/18 04:00 76 08/08/18 04:00 12.0 55 08/08/18 04:00 Venturi Mask 12.0 Venturi Mask 15.0 Venturi Mask 12.0 Venturi Mask 08/08/18 03:00 83 23 158/39 (78) 100 08/08/18 02:00 81 20 154/41 (78) 100 08/08/18 01:00 82 22 165/40 (81) 96 08/08/18 00:00 Venturi Mask 12.0 Venturi Mask 15.0 Venturi Mask 12.0 Venturi Mask 08/08/18 00:00 98.5 78 20 168/51 (90) 95 08/08/18 00:00 78 08/08/18 00:00 12.0 55 08/07/18 23:00 72 24 145/37 (73) 96 08/07/18 22:00 67 17 134/26 (62) 100 08/07/18 21:00 64 23 151/36 (74) 100 08/07/18 20:26 86 190/40 08/07/18 20:25 190/40 08/07/18 20:00 66 08/07/18 20:00 15.0 08/07/18 20:00 97.9 66 20 165/38 (80) 100 08/07/18 20:00 Non-Rebreather 15.0 Non-Rebreather 15.0 Non-Rebreather 15.0 Non-Rebreather 08/07/18 19:34 100 Non-Rebreather 15.0 100 08/07/18 19:34 Non-Rebreather 15.0 100 08/07/18 19:00 84 18 183/41 (88) 100 08/07/18 18:03 188/51 08/07/18 18:00 82 20 184/82 (116) 100 08/07/18 17:00 79 20 189/47 (94) 100 08/07/18 16:00 64 08/07/18 16:00 15.0 08/07/18 16:00 97.0 76 20 172/33 (79) 100 08/07/18 16:00 Non-Rebreather 15.0 Mechanical Ventilator 15.0 Non-Rebreather 15.0 Non-Rebreather 08/07/18 15:00 67 19 108/18 (48) 100 08/07/18 14:00 78 22 136/31 (66) 100 08/07/18 13:00 79 18 140/22 (61) 100 08/07/18 12:00 15.0 08/07/18 12:00 Non-Rebreather 15.0 Non-Rebreather 15.0 Non-Rebreather 15.0 Non-Rebreather 15.0 08/07/18 12:00 98.0 84 25 142/28 (66) 95 08/07/18 12:00 73 12/9/18 11:00 70 20 122/10 (47) 100 08/07/18 10:02 116 202/65 08/07/18 10:00 72 23 111/13 (45) 100 Intake and Output 08/07/18 08/08/18 19:00 07:00 Intake Total 360 ml 410 ml Output Total 0 ml 0 ml Balance 360 ml 410 ml Free Water 50 ml Tube Feeding 360 ml 360 ml Output Urine Total 0 ml 0 ml # Bowel Movements 3 General Appearance: no acute distress HEENT: normocephalic Respiratory/Chest: chest wall non-tender, lungs clear Cardiovascular: normal peripheral pulses, normal rate Abdomen: normal bowel sounds Laboratory Tests 08/07/18 09:38: Arterial Blood pH 7.400, Arterial Blood Partial Pressure CO2 57.2*H, Arterial Blood Partial Pressure O2 99.5, Arterial Blood HCO3 34.7H, Arterial Blood Oxygen Saturation 97.0, Arterial Blood Base Excess 8.3H, Silverio Test Positive 08/07/18 22:57: Arterial Blood pH 7.413, Arterial Blood Partial Pressure CO2 53.3H, Arterial Blood Partial Pressure O2 71.6L, Arterial Blood HCO3 33.3H, Arterial Blood Oxygen Saturation 93.1L, Arterial Blood Base Excess 7.5H, Silverio Test Positive 08/08/18 08:53: Sodium Level [Pending], Potassium Level [Pending], Chloride Level [Pending], Carbon Dioxide Level [Pending], Blood Urea Nitrogen [Pending], Creatinine [ Pending], Estimat Glomerular Filtration Rate [Pending], Glucose Level [Pending] , Calcium Level [Pending] Current Medications Medications (Trade) Dose Ordered Sig/Renetta Route PRN Reason Start Time Stop Time Status Last Admin Dose Admin Acetaminophen (Tylenol) 650 mg Q6H PRN ORAL Mild Pain/Temp > 100.5 08/02/18 14:15 09/01/18 14:14 08/06/18 05:08 Amiodarone HCl (Cordarone) 200 mg EVERY 12 HOURS NG 08/06/18 21:00 09/03/18 13:59 08/07/18 20:25 Chlorhexidine Gluconate (Rylie-Hex 2%) 1 applic DAILY@1999 TOPIC 07/26/18 20:00 08/25/18 19:59 08/07/18 20:25 Collagenase (Santyl) 1 applic QHS TOPIC 08/04/18 21:00 09/03/18 20:59 08/07/18 20:26 Epoetin Paul (Procrit (for ESRD on dialysis)) 10,000 units WED-WED-WED SUBQ 07/27/18 21:00 08/26/18 20:59 08/05/18 21:28 Heparin Sodium (Porcine) (Heparin 5000 units/ml) 5,000 units EVERY 8 HOURS SUBQ 08/05/18 22:00 09/04/18 21:59 08/08/18 06:04 Labetalol HCl (Normodyne) 200 mg Q12HR GT 08/07/18 09:30 09/06/18 09:29 08/07/18 20:26 Meropenem 500 mg/ Sodium Chloride 55 ml @ 110 mls/hr DAILY IVPB 07/27/18 12:00 08/10/18 11:59 08/07/18 08:45 Minoxidil (Loniten) 5 mg Q12HR NG 07/31/18 21:00 08/30/18 20:59 08/07/18 20:25 Pantoprazole (Protonix) 40 mg Q12HR IVP 07/25/18 21:00 08/25/18 08:59 08/07/18 20:26 Sodium Chloride 1,000 ml @ 500 mls/hr Q2H PRN IVLG sbp<90 during hd 08/05/18 07:51 09/04/18 07:50 Vitamin D (Vitamin D) 1,000 intlu DAILY GT 08/07/18 10:00 09/06/18 09:59 08/07/18 10:25 Andres Allan MD Aug 08, 2018 09:13
--- NOTE | 2018-08-08 09:15 | NUR ---
NURSE NOTES: Vasiliy Laura called,pt went bradycardeic HR 20-39/min,and went asystole.CPR initiated and successful.At 0930 pt was intubated,ETT 7.5 ,22 cm lip and eventually connected to ventilator with settings AC 12,TV 500,FiO2 100% and Peep 5.Pt tolerated settings no further resp distress presented.
[2018-08-08 09:23] LABS: ANION GAP 8 mmol/L (5-15); BLOOD UREA NITROGEN 50 mg/dL (7-18); CALCIUM 8.7 MG/DL (8.5-10.1); CARBON DIOXIDE 29 MMOL/L (21-32); CHLORIDE 101 MMOL/L (98-107); CREATININE 3.3 MG/DL (0.55-1.30); POTASSIUM 4.4 MMOL/L (3.5-5.1); SODIUM 138 MMOL/L (136-145)
--- NOTE | 2018-08-08 09:45 | NUR ---
NURSE NOTES: called DR He,to inform re pt's status and Code Blue,awaiting return of call. family member called and spoke with SCOOTER Adame,inform re pt's status and code blue,verbalized understanding.
--- NOTE | 2018-08-08 09:45 | NUR ---
Intubated Patient with 7.5 ETT at 22cm at the lip. Placed on ACVC 12, VT 500, FIO2 100%, PEEP +5. Diminished rhonchi heard bilaterally. SX thin white clear secretions. Patient obtunded. Alarms on and audible. Vent plugged into red outlet. Will continue to monitor.
[2018-08-08] MEDS: Pantoprazole Inj IVP SCH ×2 (10:03→21:07)
[2018-08-08] MEDS: Meropenem 500 MG in NS 55 ML IVPB SCH (10:04)
[2018-08-08] MEDS: Vitamin D 1000 IU Tab GT SCH (10:12)
--- NOTE | 2018-08-08 10:38 | Infectious Diseases Prog Note ---
"Assessment/Plan Assessment/Plan antibiotics : meropenem A 1. VRE | e.coli UTI 2. shock resolved 3. leucocytosis resolved 4. respiratory failure 5. renal failure 6. 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 pleural effusion P 1. continue meropenem 2. will follow up cultures Subjective ROS Limited/Unobtainable: Yes Allergies: Coded Allergies: No Known Allergies (Unverified , 07/25/18) Objective Vital Signs Last 24 Hour Vital Signs Date Time Temp Pulse Resp B/P (MAP) Pulse Ox O2 Delivery O2 Flow Rate FiO2 08/08/18 10:14 117 12 100 08/08/18 09:02 86 22 129/30 (63) 100 08/08/18 09:00 78 109/15 08/08/18 09:00 109/15 08/08/18 08:00 Venturi Mask 12.0 Venturi Mask 15.0 Venturi Mask 12.0 Venturi Mask 08/08/18 08:00 85 08/08/18 08:00 96.0 85 23 129/22 (57) 99 08/08/18 08:00 12.0 55 08/08/18 07:00 87 24 116/41 (66) 100 08/08/18 06:00 69 24 134/23 (60) 100 08/08/18 05:00 99.1 83 20 160/42 (81) 98 08/08/18 05:00 85 23 149/36 (73) 100 08/08/18 04:00 76 08/08/18 04:00 12.0 55 08/08/18 04:00 Venturi Mask 12.0 Venturi Mask 15.0 Venturi Mask 12.0 Venturi Mask 08/08/18 03:00 83 23 158/39 (78) 100 08/08/18 02:00 81 20 154/41 (78) 100 08/08/18 01:00 82 22 165/40 (81) 96 08/08/18 00:00 Venturi Mask 12.0 Venturi Mask 15.0 Venturi Mask 12.0 Venturi Mask 08/08/18 00:00 98.5 78 20 168/51 (90) 95 08/08/18 00:00 78 08/08/18 00:00 12.0 55 08/07/18 23:00 72 24 145/37 (73) 96 08/07/18 22:00 67 17 134/26 (62) 100 08/07/18 21:00 64 23 151/36 (74) 100 08/07/18 20:26 86 190/40 08/07/18 20:25 190/40 08/07/18 20:00 66 08/07/18 20:00 15.0 08/07/18 20:00 97.9 66 20 165/38 (80) 100 08/07/18 20:00 Non-Rebreather 15.0 Non-Rebreather 15.0 Non-Rebreather 15.0 Non-Rebreather 08/07/18 19:34 100 Non-Rebreather 15.0 100 08/07/18 19:34 Non-Rebreather 15.0 100 08/07/18 19:00 84 18 183/41 (88) 100 08/07/18 18:03 188/51 08/07/18 18:00 82 20 184/82 (116) 100 08/07/18 17:00 79 20 189/47 (94) 100 08/07/18 16:00 64 08/07/18 16:00 15.0 08/07/18 16:00 97.0 76 20 172/33 (79) 100 08/07/18 16:00 Non-Rebreather 15.0 Mechanical Ventilator 15.0 Non-Rebreather 15.0 Non-Rebreather 08/07/18 15:00 67 19 108/18 (48) 100 08/07/18 14:00 78 22 136/31 (66) 100 08/07/18 13:00 79 18 140/22 (61) 100 08/07/18 12:00 15.0 08/07/18 12:00 Non-Rebreather 15.0 Non-Rebreather 15.0 Non-Rebreather 15.0 Non-Rebreather 15.0 08/07/18 12:00 98.0 84 25 142/28 (66) 95 08/07/18 12:00 73 08/07/18 11:00 70 20 122/10 (47) 100 Height (Feet): 5 Height (Inches): 2.00 Weight (Pounds): 123 HEENT: other - intubated Respiratory/Chest: lungs clear Cardiovascular: normal rate, regular rhythm, no gallop/murmur Abdomen: soft, non tender Extremities: no edema, other - right arm PICC Laboratory Tests Test 08/07/18 22:57 08/08/18 08:53 Arterial Blood pH 7.413 (7.350-7.450) Arterial Blood Partial Pressure CO2 53.3 mmHg (35.0-45.0) H Arterial Blood Partial Pressure O2 71.6 mmHg (75.0-100.0) L Arterial Blood HCO3 33.3 mmol/L (22.0-26.0) H Arterial Blood Oxygen Saturation 93.1 % (95-100) L Arterial Blood Base Excess 7.5 (-2-2) H Silverio Test Positive Sodium Level 138 MMOL/L (136-145) Potassium Level 4.4 MMOL/L (3.5-5.1) # Chloride Level 101 MMOL/L (98-107) Carbon Dioxide Level 29 MMOL/L (21-32) Anion Gap 8 mmol/L (5-15) Blood Urea Nitrogen 50 mg/dL (7-18) H Creatinine 3.3 MG/DL (0.55-1.30) H Estimat Glomerular Filtration Rate mL/min (>60) Glucose Level 166 MG/DL (74-106) H Calcium Level 8.7 MG/DL (8.5-10.1) Current Medications Medications (Trade) Dose Ordered Sig/Renetta Route PRN Reason Start Time Stop Time Status Last Admin Dose Admin Acetaminophen (Tylenol) 650 mg Q6H PRN ORAL Mild Pain/Temp > 100.5 08/02/18 14:15 09/01/18 14:14 08/06/18 05:08 Amiodarone HCl (Cordarone) 200 mg EVERY 12 HOURS NG 08/06/18 21:00 09/03/18 13:59 08/07/18 20:25 Chlorhexidine Gluconate (Rylie-Hex 2%) 1 applic DAILY@1999 TOPIC 07/26/18 20:00 08/25/18 19:59 08/07/18 20:25 Collagenase (Santyl) 1 applic QHS TOPIC 08/04/18 21:00 09/03/18 20:59 08/07/18 20:26 Epoetin Paul (Procrit (for ESRD on dialysis)) 10,000 units WED-WED-WED SUBQ 07/27/18 21:00 08/26/18 20:59 08/05/18 21:28 Heparin Sodium (Porcine) (Heparin 5000 units/ml) 5,000 units EVERY 8 HOURS SUBQ 08/05/18 22:00 09/04/18 21:59 08/08/18 06:04 Labetalol HCl (Normodyne) 200 mg Q12HR GT 08/07/18 09:30 09/06/18 09:29 08/07/18 20:26 Meropenem 500 mg/ Sodium Chloride 55 ml @ 110 mls/hr DAILY IVPB 07/27/18 12:00 08/10/18 11:59 08/08/18 10:04 Minoxidil (Loniten) 5 mg Q12HR NG 07/31/18 21:00 08/30/18 20:59 08/07/18 20:25 Pantoprazole (Protonix) 40 mg Q12HR IVP 07/25/18 21:00 08/25/18 08:59 08/08/18 10:03 Sodium Chloride 1,000 ml @ 500 mls/hr Q2H PRN IVLG sbp<90 during hd 08/05/18 07:51 09/04/18 07:50 Vitamin D (Vitamin D) 1,000 intlu DAILY GT 08/07/18 10:00 09/06/18 09:59 08/08/18 10:12 Omid Morfin MD Aug 08, 2018 10:38"
--- NOTE | 2018-08-08 10:39 | Diagnostic Imaging Report ---
Indication: Abnormal breath sounds Comparison: 08/07/2018 A single view chest radiograph was obtained. Findings: Complete opacification of the left hemithorax has resolved. There is a left pleural effusion noted at the base. There is a right pleural effusion as well. Moderate pulmonary edema also noted. There is a stable positioning of the NG tube, short right upper extremity PICC line and endotracheal tubes. IMPRESSION: Improved aeration of the left lung. Mild to moderate bilateral pleural effusions currently demonstrated. CHF
--- NOTE | 2018-08-08 11:54 | Diagnostic Imaging Report ---
Indication: Dyspnea Comparison: 08/02/2018 A single view chest radiograph was obtained. Findings: Complete opacification of the left hemithorax currently demonstrated. Evidence of a right pleural effusion with the fluid extending into the minor and major fissures. Nasogastric tube in good position. Patient has been extubated. Mild congestion demonstrated. A short right-sided PICC line is present. Bones are osteopenic. IMPRESSION: Interval increase left pleural effusion likely accounting for complete opacification of the left hemithorax. Suspected moderate right pleural effusion and congestive heart failure.
--- NOTE | 2018-08-08 12:07 | NUR ---
CASE MANAGEMENT: REVIEW SI: A-FIB . SEPSIS . ESRD ON HD MWF . LEFT LUNG COLLAPSE S/P ORAL INTUBATION BRONCHOSCOPY AND LAVAGE 07/26 T 96.0 HR 86 RR 22 BP 94/17 SAT 100% VENTURI MASK 12.0 FIO2 55 H/H 8.8/28.3 BUN 50 CR 3.3 ABG: PH 7.481 PCO2 44.2 PO2 443.0 HCO3 32.3 IS: MEROPENEM IV QD AMIODARONE NG Q12HR LABETALOL GT Q12HR HEPARIN SQ Q8HR EPOETIN SQ MWF PROTONIX IV Q12HR NGT FEEDING NEPRO @10ML/HR ICU STATUS DCP: PATIENT IS FROM [facility]
--- NOTE | 2018-08-08 12:50 | NUR ---
NURSE NOTES: With ongoing Hemodialysis at bedside,no distress noted,V/S stable.Pt's SCOOTER Dale,at bedside.
--- NOTE | 2018-08-08 13:32 | NUR ---
DISCHARGE PLANNING INTAKE CLINICALS FAXED TO: [facility] P:[phone] F:[phone]
--- NOTE | 2018-08-08 14:55 | NUR ---
RD ASSESSMENT & RECOMMENDATIONS SEE CARE ACTIVITY FOR COMPLETE ASSESSMENT DAILY ESTIMATED NEEDS: Needs based on Critical care+ Advanced Wounds + ESRD/ 60kg 22-30 kcals/kg 7594-7105 total kcals 1.5-2.0 g protein/kg 90-120g g total protein per MD mL/kg total fluid mLs NUTRITION DIAGNOSIS: * Swallowing difficulty R/T respiratory status as evidenced by pt s/p self extubation, s/p code bluce, now reintubated, TF held at this time. (UPDATED) * Increased kcal/prot needs R/T wound healing as evidenced by pt admitted w/ multiple wounds including stage 4 sacral wound, refer to WC eval. * Altered nutrition related lab values R/T ESRD dx, clinical condition as evidenced by elev creat (4.6-> 3.3, low Na (130-> wnl), elev BNP >41945, low BP, pressor held at this time. CURRENT TF:Nepro @30ml/hr -HELD AT THIS TIME PO DIET RECOMMENDATIONS: FUR MATCHER evaluation post extubation, prior to PO diet -> CCHO MED, RENAL ENTERAL NUTRITION RECOMMENDATIONS: Nepro @ 35ml/hr x 24 hrs + Prosource 1pkt TID to provide 840ml, 1512kcal, 68g + 33g prot, 611ml free water WITH HEMODYNAMIC STABILITY 1. Increase goal rate to 35ml/hr x 24 hrs 2. Add Prosource 1 pkt TID to meet increased prot needs WITHOUT HEMODYNAMIC STABILITY, REC TROPHIC FEEDS OF NEPRO @ 10ML/HR X 24 HRS ADDITIONAL RECOMMENDATIONS: * Calibrated bedscale wt for accurate CBW (pt w/ added air release mattress * Monitor HD stability- s/p code blue on 08/08, re-intubated. * Wound healing- Nephrovite x 1, Afshin 1pkt BID * Monitor Renal fxn and lytes * SSI w/ TF- h/o DM .
--- NOTE | 2018-08-08 15:19 | Emergency Room Report ---
History of Present Illness General Chief Complaint: Altered Mental Status Source: Family Member Present Illness Allergies: Coded Allergies: No Known Allergies (Unverified , 07/25/18) Patient History Last Menstrual Period: unk Now: No Nursing Documentation-PMH Hx Cardiac Problems: Yes - a-fib, HTN Hx Hypertension: Yes Hx COPD: Yes Hx Diabetes: Yes - esrd Hx Cancer: Yes Hx Gastrointestinal Problems: Yes - Gall bladder removed, GERD Hx Dialysis: Yes Hx Neurological Problems: Yes - dementia Hx Cerebrovascular Accident: No Hx Dementia: Yes Physical Exam Vital Signs Date Time Temp Pulse Resp B/P (MAP) Pulse Ox O2 Delivery O2 Flow Rate FiO2 08/04/18 07:00 70 14 104/80 (88) 100 08/04/18 07:06 30 08/04/18 08:00 98.2 08/04/18 08:00 Mechanical Ventilator Mechanical Ventilator 08/07/18 09:05 15.0 Procedures Critical Care Time Critical Care Time i. I feel this is a highly complex case requiring extensive working including EKG/Rhythm strip, Xray/CT/US, Blood/urine lab work, repeat exams while in ED, and administration of strong opiates/narcotics for pain control, admission to hospital or close patient follow up. Total time: 30 min bedside evaluation and treatment excludes procedures (EKG). Reason for critical care: asystole, cardiac arrest. Possible complications: hypotension, hypertension, MS, shock, arrhythmias, metabolic acidosis, end organ damage, respiratory failure. Interventions: ACLS, compressions, epi, calcium, bicarbonate, intubation Course: Patient became bradycardic and then asystole. Respiratory distress. Chest compressions started. Given epinephrine. End-stage renal disease on dialysis. Given calcium and bicarbonate. Patient intubated. Patient regained pulses Consultations: nursing staff, EMS, family Performed by: Dr Rojas Tolerated well condition = critical j. because of unstable vital signs this patient had a condition that could potentially threaten life or limb. I feel this is a critical patient who required my full attention while patient was considered critical. Total Critical Care Time excluding procedures was greater than 35 minutes CPR/Code Blue CPR/Code Blue Narrative see code blue sheet for full narrative Medical Decision Making Diagnostic Impression: Primary Impression: Altered mental status Additional Impressions: Pyelonephritis Pneumonia ER Course I was called to the ICU to this CODE BLUE. Patient became bradycardic and then in asystole. Chest compressions started. Given epinephrine 1 prior to my arrival. History of end-stage renal disease on dialysis. Given calcium and bicarbonate. Chest compressions continued. Patient intubated. Patient regained pulses. Last Vital Signs Date Time Temp Pulse Resp B/P (MAP) Pulse Ox O2 Delivery O2 Flow Rate FiO2 08/08/18 14:35 86 13 50 08/08/18 14:00 105/27 (53) 100 08/08/18 12:00 Mechanical Ventilator Mechanical Ventilator Mechanical Ventilator Mechanical Ventilator 08/08/18 12:00 95.9 08/08/18 08:00 12.0 15.0 12.0 Status: improved Disposition: ADMITTED INPATIENT Condition: Critical Referrals: NON PHYSICIAN (PCP) Emil Rojas MD Aug 08, 2018 15:19
--- NOTE | 2018-08-08 15:30 | General Surgery Progress Note ---
General Surgery-Progress Note Subjective Procedure Performed left subclavian central venous catheter insertion Additional Comments required re-intubation this AM. Objective Last 24 Hour Vital Signs Date Time Temp Pulse Resp B/P (MAP) Pulse Ox O2 Delivery O2 Flow Rate FiO2 08/08/18 14:35 86 13 50 08/08/18 14:00 84 18 105/27 (53) 100 08/08/18 13:24 78 15 50 08/08/18 13:00 92 17 104/22 (49) 100 08/08/18 13:00 84 18 105/27 (53) 100 08/08/18 12:00 72 08/08/18 12:00 Mechanical Ventilator Mechanical Ventilator Mechanical Ventilator Mechanical Ventilator 08/08/18 12:00 95.9 71 12 95/17 (43) 100 08/08/18 11:15 50 08/08/18 11:00 73 12 94/17 (42) 100 08/08/18 10:37 77 12 100 08/08/18 10:14 117 12 100 08/08/18 10:00 79 12 103/15 (44) 100 08/08/18 09:30 100 08/08/18 09:02 86 22 129/30 (63) 100 08/08/18 09:00 78 109/15 08/08/18 09:00 109/15 08/08/18 08:00 Venturi Mask 12.0 Venturi Mask 15.0 Venturi Mask 12.0 Venturi Mask 08/08/18 08:00 85 08/08/18 08:00 96.0 85 23 129/22 (57) 99 08/08/18 08:00 12.0 55 08/08/18 07:00 87 24 116/41 (66) 100 08/08/18 06:00 69 24 134/23 (60) 100 08/08/18 05:00 99.1 83 20 160/42 (81) 98 08/08/18 05:00 85 23 149/36 (73) 100 08/08/18 04:00 76 08/08/18 04:00 12.0 55 08/08/18 04:00 Venturi Mask 12.0 Venturi Mask 15.0 Venturi Mask 12.0 Venturi Mask 08/08/18 03:00 83 23 158/39 (78) 100 08/08/18 02:00 81 20 154/41 (78) 100 08/08/18 01:00 82 22 165/40 (81) 96 08/08/18 00:00 Venturi Mask 12.0 Venturi Mask 15.0 Venturi Mask 12.0 Venturi Mask 08/08/18 00:00 98.5 78 20 168/51 (90) 95 08/08/18 00:00 78 08/08/18 00:00 12.0 55 08/07/18 23:00 72 24 145/37 (73) 96 08/07/18 22:00 67 17 134/26 (62) 100 08/07/18 21:00 64 23 151/36 (74) 100 08/07/18 20:26 86 190/40 08/07/18 20:25 190/40 08/07/18 20:00 66 08/07/18 20:00 15.0 08/07/18 20:00 97.9 66 20 165/38 (80) 100 08/07/18 20:00 Non-Rebreather 15.0 Non-Rebreather 15.0 Non-Rebreather 15.0 Non-Rebreather 08/07/18 19:34 100 Non-Rebreather 15.0 100 08/07/18 19:34 Non-Rebreather 15.0 100 08/07/18 19:00 84 18 183/41 (88) 100 08/07/18 18:03 188/51 08/07/18 18:00 82 20 184/82 (116) 100 08/07/18 17:00 79 20 189/47 (94) 100 08/07/18 16:00 64 08/07/18 16:00 15.0 08/07/18 16:00 97.0 76 20 172/33 (79) 100 08/07/18 16:00 Non-Rebreather 15.0 Mechanical Ventilator 15.0 Non-Rebreather 15.0 Non-Rebreather I&O Intake and Output 08/07/18 08/08/18 19:00 07:00 Intake Total 360 ml 410 ml Output Total 0 ml 0 ml Balance 360 ml 410 ml Free Water 50 ml Tube Feeding 360 ml 360 ml Output Urine Total 0 ml 0 ml # Bowel Movements 3 Dressing: other Wound: other Drains: other Cardiovascular: RSR Respiratory: decreased breath sounds Abdomen: soft, non-tender, present bowel sounds Extremities: edema, no cyanosis, other Laboratory Tests Test 08/07/18 22:57 08/08/18 08:53 08/08/18 11:10 Arterial Blood pH 7.413 (7.350-7.450) 7.481 (7.350-7.450) Arterial Blood Partial Pressure CO2 53.3 mmHg (35.0-45.0) H 44.2 mmHg (35.0-45.0) Arterial Blood Partial Pressure O2 71.6 mmHg (75.0-100.0) L 443.0 mmHg (75.0-100.0) H Arterial Blood HCO3 33.3 mmol/L (22.0-26.0) H 32.3 mmol/L (22.0-26.0) H Arterial Blood Oxygen Saturation 93.1 % (95-100) L 99.6 % (95-100) Arterial Blood Base Excess 7.5 (-2-2) H 7.9 (-2-2) H Silverio Test Positive Positive Sodium Level 138 MMOL/L (136-145) Potassium Level 4.4 MMOL/L (3.5-5.1) # Chloride Level 101 MMOL/L (98-107) Carbon Dioxide Level 29 MMOL/L (21-32) Anion Gap 8 mmol/L (5-15) Blood Urea Nitrogen 50 mg/dL (7-18) H Creatinine 3.3 MG/DL (0.55-1.30) H Estimat Glomerular Filtration Rate mL/min (>60) Glucose Level 166 MG/DL (74-106) H Calcium Level 8.7 MG/DL (8.5-10.1) Plan Problems: (1) Sepsis Assessment & Plan: acute decompensation hypotensive bradycardic respiratory decompensation requiring intubation and vent support - failed extubation Re-intubated this AM will monitor cont current ICU care and management may need trach if unable to wean off went with history of failed extubation thank you will follow with recs (2) Hypotension (3) Bradycardia (4) Altered mental status (5) Decubital ulcer Assessment & Plan: Patient with multiple pressure injuries where have been present since admission. Full thickness pressure injury to sacrum (L)(L)2.4cm x (W)4.4cm x (D)0.9cm, undermining 12-12 with tunneling 9-10 by 11.3cm. In close proximity to sacral wound on L buttocks purple ,indurated area with small area of slough measuring (L)0.6cm x (W)0.5cm noted. Arched surgical scar noted to L buttocks at site of tunneling. Resolving pressure injury noted to R ischium (L)3cm x (W)2cm. Wound bed epithelialized with maroon discoloration without induration periwound. Closed area with white pocket and purple margins noted to distal,carmela R tibia (L)6cm x (W)2.7cm Full thickness wound noted to distal/medial RLE (L)6.2cm x (W)3.8cm .Wound noted to have 95% mixed slough /necrosis ,marginal erythema. Wound malodorous. Wound posterior R tibia (L)4.7cm x (W) 3cm ,100% necrotic with marginal erythema. Dry eschar with marginal erythema (L)0.5cm x (W)0.7cm noted to medial R heel.Non-blanchable erythema noted to medial L malleolus. Dry brown eschar noted to medial L 1st malleolus (L)1.4cm x (W)1cm. L heel and lateral aspect boggy with non-blanchable erythema. Tx.Plan: Cleanse sacral wound with Saline.Loose pack with Hydrogel impregnated packing strip (Attention to tunneled area at 9-10).Cover with Optifoam drsg Daily and prn. Reposition at least every 2hours or as tolerated. Air Fluidized mattress. Off-load heels with pillow. Appreciate Podiatry and Vascular input Plan for anigo late by Vascular Reji Nails Aug 08, 2018 15:30
[2018-08-08] MEDS ORDERED: Sodium Bicarbonate 50ml Carp ONE (16:34)
[2018-08-08] MEDS ORDERED: Calcium Chloride 10% 10ml carpuject IVP ONE (16:34)
--- NOTE | 2018-08-08 17:00 | NUR ---
NURSE NOTES: Ongoing Hemodialysis done took out 2.5 L,tolerated well no distress presented,pt resting quietly in bed ,POA at bedside.
--- NOTE | 2018-08-08 19:00 | NUR ---
NURSE NOTES: Patient received from Sruthi BLAND. Patient is s/p cardiac arrest today around 0930. Patient is awake and responding by nodding head to simple commands. Patient has been reintubated today with ETT size 7.5, 23cm at lip line, AC 12, 500tv, 40% FiO2, and peep of 5. Patient has Nepro at 30ml/hr running via left nare NGT. Patient noted to have several wounds. Current Vitals are as follows: BP 113/17, HR 93 SR, Spo2 100%, RR 14-16 and temperature of 98.6F. Patient has L arm Av-shunt covered in dressing. L arm has edema more than Right side. Patient has Right upper arm single lumen mid-line, TKO via line. Isolation noted. Patient is on P200 mattress. Patient is s/p HD today around 1200 with 2000ml/out. Addendum: 08/08/18 at 1955 by ANN GALLEGO RN Correction: Regarding HD output, not 2000ml but actually 2500ml.
--- NOTE | 2018-08-08 19:09 | NUR ---
HAND-OFF: Report given to Desean Severino RN,pt resting in bed asleep noresp distress presented.
[2018-08-08] MEDS: Dyna-Hex 2% Top Sol 2oz TOPIC SCH (20:00)
--- NOTE | 2018-08-08 20:00 | NUR ---
NURSE NOTES: Patient had bowel movement, normal-soft in texture. Dr. Funez at bedside assessing patient. Changed patients dressings and repositioned patient. Patient had temperature of 100.3F, cooling measure was provided. Oral care was also given. Patients blood pressure shows isolated diastolic failure with current BP if 138/19, has been trending this way since s/p arrest earlier today. Shrimp Peeler is aware. Will continue to monitor.
--- NOTE | 2018-08-08 20:30 | Cardiology Progress Note ---
Assessment/Plan Assessment/Plan 1. Hypotension, possibly sepsis versus volume. 2. Paroxysmal episodes of atrial fibrillation history. 3. Bradycardia secondary to medications, amiodarone possibly. 4. Diabetes mellitus. 5. End-stage renal disease, on hemodialysis. 6. Lung collapse. 7. Respiratory failure, status post intubation. 8. Dysphagia. 9. History of dementia. 10. Pulm htn 11. Pleural effusion 12. cardaic arrest in and out afib amido now 200 tid tele reviewed had devonte arrest per rn non eo her cardaic med were given today butper rn last ntei she woudsl desaturate when she attempted to remove face chris on several occasioan lst nteie cpr today for 10 min per rn stool ob neg x2 amiod bid will hodl for 1-2 doses dc labetolol for now if need hydralaize to be used Subjective ROS Limited/Unobtainable: Yes Subjective on the vent not verba Objective Last 24 Hour Vital Signs Date Time Temp Pulse Resp B/P (MAP) Pulse Ox O2 Delivery O2 Flow Rate FiO2 08/08/18 19:20 94 16 40 08/08/18 19:07 94 15 113/18 (49) 100 08/08/18 19:00 94 15 113/18 (49) 100 08/08/18 18:00 91 14 112/18 (49) 100 08/08/18 17:19 90 14 40 08/08/18 17:10 98.4 87 13 110/18 (48) 100 08/08/18 16:00 87 14 110/21 (50) 100 08/08/18 16:00 50 08/08/18 16:00 Mechanical Ventilator Mechanical Ventilator Mechanical Ventilator Mechanical Ventilator 08/08/18 16:00 86 08/08/18 15:00 84 13 108/20 (49) 100 08/08/18 15:00 84 13 106/14 (44) 100 08/08/18 14:35 86 13 50 08/08/18 14:00 84 18 105/27 (53) 100 08/08/18 13:24 78 15 50 08/08/18 13:00 92 17 104/22 (49) 100 08/08/18 13:00 84 18 105/27 (53) 100 08/08/18 12:00 72 08/08/18 12:00 Mechanical Ventilator Mechanical Ventilator Mechanical Ventilator Mechanical Ventilator 08/08/18 12:00 50 08/08/18 12:00 95.9 71 12 95/17 (43) 100 08/08/18 11:15 50 08/08/18 11:00 73 12 94/17 (42) 100 08/08/18 10:37 77 12 100 08/08/18 10:14 117 12 100 08/08/18 10:00 79 12 103/15 (44) 100 08/08/18 09:30 100 08/08/18 09:02 86 22 129/30 (63) 100 08/08/18 09:00 78 109/15 08/08/18 09:00 109/15 08/08/18 08:00 Venturi Mask 12.0 Venturi Mask 15.0 Venturi Mask 12.0 Venturi Mask 08/08/18 08:00 85 08/08/18 08:00 96.0 85 23 129/22 (57) 99 08/08/18 08:00 12.0 55 08/08/18 07:00 87 24 116/41 (66) 100 08/08/18 06:00 69 24 134/23 (60) 100 08/08/18 05:00 99.1 83 20 160/42 (81) 98 08/08/18 05:00 85 23 149/36 (73) 100 08/08/18 04:00 76 08/08/18 04:00 12.0 55 08/08/18 04:00 Venturi Mask 12.0 Venturi Mask 15.0 Venturi Mask 12.0 Venturi Mask 08/08/18 03:00 83 23 158/39 (78) 100 08/08/18 02:00 81 20 154/41 (78) 100 08/08/18 01:00 82 22 165/40 (81) 96 08/08/18 00:00 Venturi Mask 12.0 Venturi Mask 15.0 Venturi Mask 12.0 Venturi Mask 08/08/18 00:00 98.5 78 20 168/51 (90) 95 08/08/18 00:00 78 08/08/18 00:00 12.0 55 08/07/18 23:00 72 24 145/37 (73) 96 08/07/18 22:00 67 17 134/26 (62) 100 08/07/18 21:00 64 23 151/36 (74) 100 08/07/18 20:26 86 190/40 General Appearance: other - reposnive to pain full stimuli Neck: supple Cardiovascular: normal rate, other - chest wall tenderness to palp Respiratory/Chest: lungs clear Abdomen: normal bowel sounds, non tender, soft Extremities: no swelling Intake and Output 08/07/18 08/08/18 18:59 06:59 Intake Total 360 ml 410 ml Output Total 0 ml 0 ml Balance 360 ml 410 ml Free Water 50 ml Tube Feeding 360 ml 360 ml Output Urine Total 0 ml 0 ml # Bowel Movements 3 Laboratory Tests Test 08/07/18 22:57 08/08/18 08:53 08/08/18 11:10 Arterial Blood pH 7.413 (7.350-7.450) 7.481 (7.350-7.450) Arterial Blood Partial Pressure CO2 53.3 mmHg (35.0-45.0) H 44.2 mmHg (35.0-45.0) Arterial Blood Partial Pressure O2 71.6 mmHg (75.0-100.0) L 443.0 mmHg (75.0-100.0) H Arterial Blood HCO3 33.3 mmol/L (22.0-26.0) H 32.3 mmol/L (22.0-26.0) H Arterial Blood Oxygen Saturation 93.1 % (95-100) L 99.6 % (95-100) Arterial Blood Base Excess 7.5 (-2-2) H 7.9 (-2-2) H Silverio Test Positive Positive Sodium Level 138 MMOL/L (136-145) Potassium Level 4.4 MMOL/L (3.5-5.1) # Chloride Level 101 MMOL/L (98-107) Carbon Dioxide Level 29 MMOL/L (21-32) Anion Gap 8 mmol/L (5-15) Blood Urea Nitrogen 50 mg/dL (7-18) H Creatinine 3.3 MG/DL (0.55-1.30) H Estimat Glomerular Filtration Rate mL/min (>60) Glucose Level 166 MG/DL (74-106) H Calcium Level 8.7 MG/DL (8.5-10.1) Angelo Butler MD Aug 08, 2018 20:30
[2018-08-08] MEDS: Epogen (for ESRD on dialysis) SUBQ SCH (21:08)
--- NOTE | 2018-08-08 22:00 | NUR ---
NURSE NOTES: Patient repositioned, and suctioned. Current HR is 85 SR and BP is 115/17, patient is awake and semi-lethargic at times. Will continue to monitor.
[2018-08-09] VITALS (24 sets, daily range): BP systolic 101–145; BP diastolic 14–44
--- NOTE | 2018-08-09 | NUR ---
NURSE NOTES: Patient repositioned and provided oral care. Patient will go in and out of afib. With the highest reading of 130. Currently HR is 112 Afib with a few PAC's. Patient is awake and able to nod to simple commands. NAD at this time.
--- NOTE | 2018-08-09 02:00 | NUR ---
NURSE NOTES: Patient repositioned, suctioned and oral care performed. Patient converted back to Sinus Rhythm, Patient HR now is 89 SR, BP is 136/33, SpO2 is 100%, same ventilator settings. Patient is experiencing a bit if low grade fever of 99.7F. Cooling measure are ongoing.
--- NOTE | 2018-08-09 04:00 | NUR ---
NURSE NOTES: Patients wound dressings have been changed, Santyl was applied. Clean new linen was also applied. New feeding bottle hung and tubing changed. Oral hygiene was performed. Cooling bath was given due in part of low grade fever of 99.6F, other vitals remains stable, still in sinus rhythm.
[2018-08-09] MEDS: Heparin 5000 units/ml inj SUBQ SCH ×3 (05:47→21:48)
--- NOTE | 2018-08-09 06:00 | NUR ---
NURSE NOTES: Patient repositioned, morning meds given. Patient goes in and out of Afib,now she is SR. NAD at this time.
--- NOTE | 2018-08-09 07:00 | NUR ---
HAND-OFF: Report given to Anabella Brandt RN. Patient remains stable, no acute distress, Vitals stable.
--- NOTE | 2018-08-09 07:30 | NUR ---
NURSE NOTES: Received patient from BALDO Anton. Patient awake, able to follow simple commends. Patient is orally intubated, ETT size 7.5, 23cm at lip line, Vent settings: AC 12, TV 500, 40% FiO2, PEEP 5, saturating 100%. Left nare NGT intact, running Nepro at 30ml/hr. HOB elevated. Right upper arm midline intact and patent. Dressing to left upper arm AV shunt intact, clean and dry. Patient on p200 mattress. Patient on bilateral wrist soft restraints. Skin intact, pulses present. Bed in lowest position. Call light within reach. Will continue to monitor.
--- NOTE | 2018-08-09 07:48 | Nephrology Progress Note ---
Assessment/Plan Assessment Seee below Plan MOF stable. Sepsis due to infected diabetic ulcers. On IV Abx. Followed by ID, Vasc. Sx, Podiatry. ESRD HD q MWF Anemia of CKD , DARRYN high dose. Transfuse PRN. A. 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 with LAE. LVEF 65% . Anticoagulate when stable. DW Dr. Butler. In and out A. Fib. If unweanable, may neead Trac+PEg. See orders. Subjective Subjective Reintubated. Objective Objective Last 24 Hour Vital Signs Date Time Temp Pulse Resp B/P (MAP) Pulse Ox O2 Delivery O2 Flow Rate FiO2 08/09/18 07:00 118 17 120/24 (56) 100 08/09/18 06:46 120 17 40 08/09/18 06:18 99.4 08/09/18 06:00 108 15 113/24 (53) 100 08/09/18 05:00 118 16 126/23 (57) 100 08/09/18 04:40 103 12 40 08/09/18 04:00 40 08/09/18 04:00 Mechanical Ventilator Mechanical Ventilator Mechanical Ventilator Mechanical Ventilator 08/09/18 04:00 99.6 89 18 142/17 (58) 100 08/09/18 04:00 89 08/09/18 03:30 75 12 40 08/09/18 03:00 86 17 132/19 (56) 100 08/09/18 02:00 90 23 137/23 (61) 100 08/09/18 01:34 91 14 40 08/09/18 01:00 89 19 133/14 (53) 100 08/09/18 00:00 40 08/09/18 00:00 99.3 121 14 115/39 (64) 100 08/09/18 00:00 Mechanical Ventilator Mechanical Ventilator Mechanical Ventilator Mechanical Ventilator 08/09/18 00:00 130 08/08/18 23:00 118 15 100/34 (56) 100 08/08/18 23:00 112 14 40 08/08/18 22:00 91 14 138/19 (58) 100 08/08/18 21:08 80 13 40 08/08/18 21:00 102/17 08/08/18 21:00 79 12 113/19 (50) 100 08/08/18 20:00 40 08/08/18 20:00 Mechanical Ventilator Mechanical Ventilator Mechanical Ventilator Mechanical Ventilator 08/08/18 20:00 90 08/08/18 20:00 100.3 85 12 102/17 (45) 100 08/08/18 19:20 94 16 40 08/08/18 19:07 94 15 113/18 (49) 100 08/08/18 19:00 94 15 113/18 (49) 100 08/08/18 18:00 91 14 112/18 (49) 100 08/08/18 17:19 90 14 40 08/08/18 17:10 98.4 87 13 110/18 (48) 100 08/08/18 16:00 87 14 110/21 (50) 100 08/08/18 16:00 50 08/08/18 16:00 Mechanical Ventilator Mechanical Ventilator Mechanical Ventilator Mechanical Ventilator 08/08/18 16:00 86 08/08/18 15:00 84 13 108/20 (49) 100 08/08/18 15:00 84 13 106/14 (44) 100 08/08/18 14:35 86 13 50 08/08/18 14:00 84 18 105/27 (53) 100 08/08/18 13:24 78 15 50 08/08/18 13:00 92 17 104/22 (49) 100 08/08/18 13:00 84 18 105/27 (53) 100 08/08/18 12:00 72 08/08/18 12:00 Mechanical Ventilator Mechanical Ventilator Mechanical Ventilator Mechanical Ventilator 08/08/18 12:00 50 08/08/18 12:00 95.9 71 12 95/17 (43) 100 08/08/18 11:15 50 08/08/18 11:00 73 12 94/17 (42) 100 08/08/18 10:37 77 12 100 08/08/18 10:14 117 12 100 08/08/18 10:00 79 12 103/15 (44) 100 08/08/18 09:30 100 08/08/18 09:02 86 22 129/30 (63) 100 08/08/18 09:00 78 109/15 08/08/18 09:00 109/15 08/08/18 08:00 Venturi Mask 12.0 Venturi Mask 15.0 Venturi Mask 12.0 Venturi Mask 08/08/18 08:00 85 08/08/18 08:00 96.0 85 23 129/22 (57) 99 08/08/18 08:00 12.0 55 Intake and Output 08/08/18 08/09/18 19:00 07:00 Intake Total 515 ml 390 ml Output Total 2501 ml 0 ml Balance -1986 ml 390 ml Free Water 100 ml IV Total 55 ml Tube Feeding 360 ml 390 ml Output Urine Total 0 ml 0 ml Stool Total 1 ml Hemodialysis UF 2500 ml # Bowel Movements 1 2 Laboratory Tests 08/08/18 08:53: Sodium Level 138, Potassium Level 4.4#, Chloride Level 101, Carbon Dioxide Level 29, Anion Gap 8, Blood Urea Nitrogen 50H, Creatinine 3.3H, Estimat Glomerular Filtration Rate , Glucose Level 166H, Calcium Level 8.7 08/08/18 11:10: Arterial Blood pH 7.481H, Arterial Blood Partial Pressure CO2 44.2, Arterial Blood Partial Pressure O2 443.0H, Arterial Blood HCO3 32.3H, Arterial Blood Oxygen Saturation 99.6, Arterial Blood Base Excess 7.9H, Silverio Test Positive Height (Feet): 5 Height (Inches): 2.00 Weight (Pounds): 125 Objective Reintubated Cv IRR/IRR Lungs B facundo. Abd SNT. BS + E Rt. foot diabetic ulcers Chase He MD Aug 09, 2018 07:48
--- NOTE | 2018-08-09 08:00 | NUR ---
NURSE NOTES: Dr. He in facility to see the patient.
--- NOTE | 2018-08-09 08:15 | NUR ---
NURSE NOTES: Spoke with Beatriz at [facility] for HD 08/10/18. Nurse to call back to confirm.
--- NOTE | 2018-08-09 08:45 | NUR ---
NURSE NOTES: patient noted with temp 99.9. cooling measures provided. will recheck temp.
[2018-08-09] MEDS: Pantoprazole Inj IVP SCH ×2 (08:47→21:00)
[2018-08-09] MEDS: Vitamin D 1000 IU Tab GT SCH (08:47)
[2018-08-09] MEDS: Amiodarone 200mg tab NG SCH ×2 (08:47→21:00)
[2018-08-09] MEDS: Meropenem 500 MG in NS 55 ML IVPB SCH (08:48)
--- NOTE | 2018-08-09 09:20 | NUR ---
NURSE NOTES: Temp went down to 99.1. patient resting in bed comfortably.
[2018-08-09] MEDS: Minoxidil 2.5mg tab NG SCH ×2 (10:33→21:00)
--- NOTE | 2018-08-09 11:30 | NUR ---
NURSE NOTES: Patient was repositioned. patient kept clean and dry. oral care provided.
--- NOTE | 2018-08-09 12:28 | NUR ---
CASE MANAGEMENT: REVIEW SI: SEPSIS . ESRD ON HD . RIGHT FOOT DIABETIC ULCER . ORALLY INTUBATED AV FISTULA 08/09 BRONCHOSCOPY AND LAVAGE 07/26 T 99.9 HR 121 RR 14 BP 142/17 SAT 100% MECH VENT FIO2 40 IS: MEROPENEM IV QD AMIODARONE NG Q12HR LABETALOL GT Q12HR HEPARIN SQ Q8HR EPOETIN SQ MWF PROTONIX IV Q12HR NGT FEEDING NEPRO @10ML/HR HEMODIALYSIS PRN ICU STATUS DCP: PATIENT IS FROM [facility]
--- NOTE | 2018-08-09 13:06 | NUR ---
INSURANCE ALL CLINICALS AND REVIEWS FAXED TO [facility] REPORTED TO: LORRAINE HASTINGS#: [id number] TOMOGRAPHIC TECH: BERTHA Pederson#[phone] F#: [phone]
--- NOTE | 2018-08-09 14:03 | NUR ---
NURSE NOTES: Patient's son at bedside. No signs of acute respiratory distress. Calm and comfortable. No complains of pain.
--- NOTE | 2018-08-09 14:43 | Cardiology Progress Note ---
Assessment/Plan Assessment/Plan 1. Hypotension, possibly sepsis versus volume. 2. Paroxysmal episodes of atrial fibrillation history. 3. Bradycardia secondary to medications, amiodarone possibly. 4. Diabetes mellitus. 5. End-stage renal disease, on hemodialysis. 6. Lung collapse. 7. Respiratory failure, status post intubation. 8. Dysphagia. 9. History of dementia. 10. Pulm htn 11. Pleural effusion 12. cardaic arrest 13. chest wall pain post cpr in and out afib amido now 200 bid on hold stool ob neg x2 amiod bid off labetolol for now if need hydralaize to be used vent supprot wean as tolerted may need trachand peg d/w rn Subjective ROS Limited/Unobtainable: Yes Cardiovascular: Reports: chest pain Respiratory: Reports: shortness of breath Gastrointestinal/Abdominal: Reports: abdominal pain Genitourinary: Denies: burning Subjective on the vent not verba Objective Last 24 Hour Vital Signs Date Time Temp Pulse Resp B/P (MAP) Pulse Ox O2 Delivery O2 Flow Rate FiO2 08/09/18 14:00 97.5 77 14 132/28 (62) 100 08/09/18 13:08 62 15 40 08/09/18 13:00 77 13 133/39 (70) 100 08/09/18 12:00 40 08/09/18 12:00 76 08/09/18 12:00 71 15 125/24 (57) 100 08/09/18 12:00 Mechanical Ventilator Mechanical Ventilator Mechanical Ventilator Mechanical Ventilator 08/09/18 11:00 74 17 110/22 (51) 100 08/09/18 10:58 73 18 40 08/09/18 10:33 129/26 08/09/18 10:00 99.1 80 13 124/29 (60) 100 08/09/18 09:00 89 14 145/44 (77) 100 08/09/18 08:40 88 14 40 08/09/18 08:00 40 08/09/18 08:00 87 08/09/18 08:00 99.9 88 18 121/20 (53) 100 08/09/18 08:00 Mechanical Ventilator Mechanical Ventilator Mechanical Ventilator Mechanical Ventilator 08/09/18 08:00 87 08/09/18 07:00 118 17 120/24 (56) 100 08/09/18 06:46 120 17 40 08/09/18 06:18 99.4 08/09/18 06:00 108 15 113/24 (53) 100 08/09/18 05:00 118 16 126/23 (57) 100 08/09/18 04:40 103 12 40 08/09/18 04:00 40 08/09/18 04:00 Mechanical Ventilator Mechanical Ventilator Mechanical Ventilator Mechanical Ventilator 08/09/18 04:00 99.6 89 18 142/17 (58) 100 08/09/18 04:00 89 08/09/18 03:30 75 12 40 08/09/18 03:00 86 17 132/19 (56) 100 08/09/18 02:00 90 23 137/23 (61) 100 08/09/18 01:34 91 14 40 08/09/18 01:00 89 19 133/14 (53) 100 08/09/18 00:00 40 08/09/18 00:00 99.3 121 14 115/39 (64) 100 08/09/18 00:00 Mechanical Ventilator Mechanical Ventilator Mechanical Ventilator Mechanical Ventilator 08/09/18 00:00 130 08/08/18 23:00 118 15 100/34 (56) 100 08/08/18 23:00 112 14 40 08/08/18 22:00 91 14 138/19 (58) 100 08/08/18 21:08 80 13 40 08/08/18 21:00 102/17 08/08/18 21:00 79 12 113/19 (50) 100 08/08/18 20:00 40 08/08/18 20:00 Mechanical Ventilator Mechanical Ventilator Mechanical Ventilator Mechanical Ventilator 08/08/18 20:00 90 08/08/18 20:00 100.3 85 12 102/17 (45) 100 08/08/18 19:20 94 16 40 08/08/18 19:07 94 15 113/18 (49) 100 08/08/18 19:00 94 15 113/18 (49) 100 08/08/18 18:00 91 14 112/18 (49) 100 08/08/18 17:19 90 14 40 08/08/18 17:10 98.4 87 13 110/18 (48) 100 08/08/18 16:00 87 14 110/21 (50) 100 08/08/18 16:00 50 08/08/18 16:00 Mechanical Ventilator Mechanical Ventilator Mechanical Ventilator Mechanical Ventilator 08/08/18 16:00 86 08/08/18 15:00 84 13 108/20 (49) 100 08/08/18 15:00 84 13 106/14 (44) 100 General Appearance: alert, on vent, patient on isolation Neck: supple Cardiovascular: normal rate, other Respiratory/Chest: lungs clear - ant Abdomen: normal bowel sounds, non tender, soft Extremities: no swelling Intake and Output 08/08/18 08/09/18 19:00 07:00 Intake Total 515 ml 390 ml Output Total 2501 ml 0 ml Balance -1986 ml 390 ml Free Water 100 ml IV Total 55 ml Tube Feeding 360 ml 390 ml Output Urine Total 0 ml 0 ml Stool Total 1 ml Hemodialysis UF 2500 ml # Bowel Movements 1 2 Angelo Butler MD Aug 09, 2018 14:43
--- NOTE | 2018-08-09 15:23 | Pulmonology Progress Note ---
Assessment/Plan Assessment/Plan IMPRESSION: 1. Hypotension. 2. Sepsis. 3. Atrial fibrillation. 4. Bradycardia. 5. Diabetes mellitus. 6. End-stage renal disease on dialysis. 7. Left lung collapse. Resolved 8. Respiratory failure. now reintubated 9. Dysphagia. 10. Dementia. 11. Anemia 12. Pneumonia DISCUSSION: 1. Continue medications. 2. CXR improved 3. status post bronchoscopy 4. Central access 5. Use broad-spectrum antibiotics. 6. May require neurology opinion 7. May require trach Andres Allan M.D. Subjective Interval Events: Re-intubated now. Poorly responsive. Constitutional: Reports: no symptoms HEENT: Repors: no symptoms Respiratory: Reports: no symptoms Cardiovascular: Reports: no symptoms Gastrointestinal/Abdominal: Reports: no symptoms Genitourinary: Reports: no symptoms Neurologic: Reports: no symptoms Allergies: Coded Allergies: No Known Allergies (Unverified , 07/25/18) Objective Last 24 Hour Vital Signs Date Time Temp Pulse Resp B/P (MAP) Pulse Ox O2 Delivery O2 Flow Rate FiO2 08/09/18 15:17 78 13 40 08/09/18 14:00 97.5 77 14 132/28 (62) 100 08/09/18 13:08 62 15 40 08/09/18 13:00 77 13 133/39 (70) 100 08/09/18 12:00 40 08/09/18 12:00 76 08/09/18 12:00 71 15 125/24 (57) 100 08/09/18 12:00 Mechanical Ventilator Mechanical Ventilator Mechanical Ventilator Mechanical Ventilator 08/09/18 11:00 74 17 110/22 (51) 100 08/09/18 10:58 73 18 40 08/09/18 10:33 129/26 08/09/18 10:00 99.1 80 13 124/29 (60) 100 08/09/18 09:00 89 14 145/44 (77) 100 08/09/18 08:40 88 14 40 08/09/18 08:00 40 08/09/18 08:00 87 08/09/18 08:00 99.9 88 18 121/20 (53) 100 12/11/18 08:00 Mechanical Ventilator Mechanical Ventilator Mechanical Ventilator Mechanical Ventilator 08/09/18 08:00 87 08/09/18 07:00 118 17 120/24 (56) 100 08/09/18 06:46 120 17 40 08/09/18 06:18 99.4 08/09/18 06:00 108 15 113/24 (53) 100 08/09/18 05:00 118 16 126/23 (57) 100 08/09/18 04:40 103 12 40 08/09/18 04:00 40 08/09/18 04:00 Mechanical Ventilator Mechanical Ventilator Mechanical Ventilator Mechanical Ventilator 08/09/18 04:00 99.6 89 18 142/17 (58) 100 08/09/18 04:00 89 08/09/18 03:30 75 12 40 08/09/18 03:00 86 17 132/19 (56) 100 08/09/18 02:00 90 23 137/23 (61) 100 08/09/18 01:34 91 14 40 08/09/18 01:00 89 19 133/14 (53) 100 08/09/18 00:00 40 08/09/18 00:00 99.3 121 14 115/39 (64) 100 08/09/18 00:00 Mechanical Ventilator Mechanical Ventilator Mechanical Ventilator Mechanical Ventilator 08/09/18 00:00 130 08/08/18 23:00 118 15 100/34 (56) 100 08/08/18 23:00 112 14 40 08/08/18 22:00 91 14 138/19 (58) 100 08/08/18 21:08 80 13 40 08/08/18 21:00 102/17 08/08/18 21:00 79 12 113/19 (50) 100 08/08/18 20:00 40 08/08/18 20:00 Mechanical Ventilator Mechanical Ventilator Mechanical Ventilator Mechanical Ventilator 08/08/18 20:00 90 08/08/18 20:00 100.3 85 12 102/17 (45) 100 08/08/18 19:20 94 16 40 08/08/18 19:07 94 15 113/18 (49) 100 08/08/18 19:00 94 15 113/18 (49) 100 08/08/18 18:00 91 14 112/18 (49) 100 08/08/18 17:19 90 14 40 08/08/18 17:10 98.4 87 13 110/18 (48) 100 08/08/18 16:00 87 14 110/21 (50) 100 08/08/18 16:00 50 08/08/18 16:00 Mechanical Ventilator Mechanical Ventilator Mechanical Ventilator Mechanical Ventilator 08/08/18 16:00 86 Intake and Output 08/08/18 08/09/18 19:00 07:00 Intake Total 515 ml 390 ml Output Total 2501 ml 0 ml Balance -1986 ml 390 ml Free Water 100 ml IV Total 55 ml Tube Feeding 360 ml 390 ml Output Urine Total 0 ml 0 ml Stool Total 1 ml Hemodialysis UF 2500 ml # Bowel Movements 1 2 General Appearance: no acute distress HEENT: normocephalic Respiratory/Chest: chest wall non-tender, lungs clear Cardiovascular: normal peripheral pulses, normal rate Abdomen: normal bowel sounds Current Medications Medications (Trade) Dose Ordered Sig/Renetta Route PRN Reason Start Time Stop Time Status Last Admin Dose Admin Acetaminophen (Tylenol) 650 mg Q6H PRN ORAL Mild Pain/Temp > 100.5 08/02/18 14:15 09/01/18 14:14 08/09/18 05:48 Amiodarone HCl (Cordarone) 200 mg EVERY 12 HOURS NG 08/06/18 21:00 09/03/18 13:59 08/09/18 08:47 Chlorhexidine Gluconate (Rylie-Hex 2%) 1 applic DAILY@1999 TOPIC 07/26/18 20:00 08/25/18 19:59 08/08/18 20:00 Collagenase (Santyl) 1 applic QHS TOPIC 08/04/18 21:00 09/03/18 20:59 08/08/18 21:08 Epoetin Paul (Procrit (for ESRD on dialysis)) 10,000 units WED-WED-WED SUBQ 07/27/18 21:00 08/26/18 20:59 08/08/18 21:08 Heparin Sodium (Porcine) (Heparin 5000 units/ml) 5,000 units EVERY 8 HOURS SUBQ 08/05/18 22:00 09/04/18 21:59 08/09/18 14:26 Heparin Sodium (Porcine) (Heparin Sod 1000 units/ml 10ml) 2,000 unit ONCE PRN IV for dialysis 08/10/18 08:00 08/10/18 23:59 Hydralazine HCl (Apresoline) 10 mg Q4H PRN IV sbp greater than 145 08/08/18 20:30 09/07/18 20:29 Meropenem 500 mg/ Sodium Chloride 55 ml @ 110 mls/hr DAILY IVPB 08/09/18 09:00 08/23/18 08:59 08/09/18 08:48 Minoxidil (Loniten) 5 mg Q12HR NG 07/31/18 21:00 08/30/18 20:59 08/09/18 10:33 Pantoprazole (Protonix) 40 mg Q12HR IVP 07/25/18 21:00 08/25/18 08:59 08/09/18 08:47 Sodium Chloride 1,000 ml @ 500 mls/hr Q2H PRN IVLG sbp<90 during hd 08/10/18 06:00 08/10/18 23:59 Vitamin D (Vitamin D) 1,000 intlu DAILY GT 08/07/18 10:00 09/06/18 09:59 08/09/18 08:47 Andres Allan MD Aug 09, 2018 15:23
[2018-08-09] MEDS ORDERED: Tubing IV Secondary IV ONE (15:30)
[2018-08-09] MEDS ORDERED: NS 275ml ONE (15:30)
--- NOTE | 2018-08-09 16:00 | NUR ---
NURSE NOTES: Patient noted with Afib with HR 100s. Patient awake, opens eyes spontaneously. pt's son at bedside. On bilateral wrist soft restraints. No skin breakdown noted.
--- NOTE | 2018-08-09 18:00 | NUR ---
NURSE NOTES: Patient was repositioned, kept clean and dry. No changes in condition. patient resting in bed comfortably. VSS
--- NOTE | 2018-08-09 19:00 | NUR ---
NURSE NOTES: Received patient from Ms. Magdalena BLAND and Ms. Brandt RN. Patient awake, able to follow simple commends. Patient is orally intubated, ETT size 7.5, 23cm at lip line, Vent settings: AC 12, TV 500, 40% FiO2, PEEP 5, saturating 100%. Left nare NGT intact, running Nepro at 30ml/hr. HOB elevated. Right upper arm midline intact and patent. Dressing to left upper arm AV shunt intact, clean and dry. Patient on p200 mattress. Patient on bilateral wrist soft restraints. Skin intact, pulses present. Bed in lowest position. Current BP is 128/27, HR is 81 SR, Temperature is 98.9F and RR ranging 14-18. Call light within reach. Will continue to monitor.
--- NOTE | 2018-08-09 19:06 | NUR ---
HAND-OFF: Report given to BALDO Anton.
[2018-08-09] MEDS: Dyna-Hex 2% Top Sol 2oz TOPIC SCH (20:00)
--- NOTE | 2018-08-09 20:00 | NUR ---
NURSE NOTES: Patient was repositioned and provided with oral hygiene. Temperature is 98.8F taken from auxiliary, will monitor temperature closely. Vitals have been stable so far with hr in the 80s SR. BP is 140/31 and RR ranging around 12-14. Patient is awake and watching TV, able to nod her head for yes or no replies. NAD at this time, will continue to monitor.
--- NOTE | 2018-08-09 22:00 | NUR ---
NURSE NOTES: Patient repositioned and provided oral care. Vitals remains stable BP 123/22, HR 76 SR, SpO2 100%. Patient sleeping and is content. Midline dressing changed.
--- NOTE | 2018-08-09 23:00 | NUR ---
NURSE NOTES: Dobutamine turned off/hold. Addendum: 08/10/18 at 0631 by ANN GALLEGO RN Wrong patient entry, ignore this note.
[2018-08-10] VITALS (24 sets, daily range): BP systolic 100–155; BP diastolic 12–134
--- NOTE | 2018-08-10 | NUR ---
NURSE NOTES: Patient repositioned, suctioned, and provided oral care. No acute distress at this time, patient doing well off the pressors. BP normotensive.
--- NOTE | 2018-08-10 02:00 | NUR ---
NURSE NOTES: Patient repositioned and suctioned, patient remains normotensive, no acute distress at this time. Patient is warm to touch but does not reflect fever at this time.
--- NOTE | 2018-08-10 04:00 | NUR ---
NURSE NOTES: Patient repositioned, suctioned and provided oral care, vitals remains stable, patient does go into afib every now and then but converts back to Sinus Rhythm.
[2018-08-10 05:19] LABS: BASOPHILS % (AUTO) 0.6 % (0.0-2.0); EOSINOPHILS % (AUTO) 1.4 % (0.0-3.0); HEMATOCRIT 27.3 % (37.0-47.0); HEMOGLOBIN 8.4 G/DL (12.0-16.0); LYMPHOCYTES % (AUTO) 8.6 % (20.0-45.0); MEAN CORPUSCULAR VOLUME 92 FL (80-99); NEUTROPHILS % (AUTO) 79.5 % (45.0-75.0); PLATELET COUNT 198 K/UL (150-450); RED BLOOD COUNT 2.98 M/UL (4.20-5.40); RED CELL DISTRIBUTION WIDTH 19.1 % (11.6-14.8); WHITE BLOOD COUNT 10.6 K/UL (4.8-10.8)
[2018-08-10 05:41] LABS: ALANINE AMINOTRANSFERASE 9 U/L (12-78); ALBUMIN 1.4 G/DL (3.4-5.0); ALBUMIN/GLOBULIN RATIO 0.3 (1.0-2.7); ALKALINE PHOSPHATASE 101 U/L (46-116); ANION GAP 5 mmol/L (5-15); ASPARTATE AMINO TRANSFERASE 18 U/L (15-37); BILIRUBIN,TOTAL 0.4 MG/DL (0.2-1.0); BLOOD UREA NITROGEN 39 mg/dL (7-18); CALCIUM 8.9 MG/DL (8.5-10.1); CARBON DIOXIDE 33 MMOL/L (21-32); CHLORIDE 104 MMOL/L (98-107); POTASSIUM 3.4 MMOL/L (3.5-5.1); SODIUM 142 MMOL/L (136-145)
--- NOTE | 2018-08-10 06:00 | NUR ---
NURSE NOTES: Patient repositioned and cleaned and suctioned. HD nurse at bedside setting up dialyzer and other equipment. Patient continues to remain stable.
[2018-08-10] MEDS: Heparin 5000 units/ml inj SUBQ SCH ×3 (06:26→21:29)
--- NOTE | 2018-08-10 07:15 | NUR ---
RESPIRATORY NOTE:Received pt on ETT 7.5 @ 22cm lips line with settings: AC 12-500ml-40% FiO2- peep of 5. Pt saturates at 100%, pt is awake and alert, no SOB or acute distress noted at this time. Alarms are set and audible, vent is plugged into the red outlet, ambu bag is at bedside. Will continue to monitor and sxn as needed.
--- NOTE | 2018-08-10 07:30 | NUR ---
NURSE NOTES: Received patient from BALDO Anton. Patient asleep, resting in bed comfortably. Patient is orally intubated, ETT size 7.5, 23cm at lip line, Vent settings: AC 12, TV 500, 40% FiO2, PEEP 5, saturating 100%. Left nare NGT intact, running Nepro at 30ml/hr. HOB elevated. Right upper arm midline intact and patent. left upper arm AV shunt noted. Hemodialysis ongoing. Dialysis nurse at bedside. Patient on p200 mattress. Patient on bilateral wrist soft restraints. Skin intact, pulses present. Bed in lowest position. Call light within reach. Will continue to monitor.
--- NOTE | 2018-08-10 07:42 | NUR ---
NURSE NOTES: Dr. He in facility to assess the patient.
--- NOTE | 2018-08-10 07:43 | Nephrology Progress Note ---
Assessment/Plan Assessment Seee below Plan MOF stable. Sepsis due to infected diabetic ulcers. On IV Abx. Followed by ID, Vasc. Sx, Podiatry. ESRD HD q MWF Anemia of CKD , DARRYN high dose. Transfuse PRN. A. 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 with LAE. LVEF 65% . Anticoagulate when stable. DW Dr. Butler. In and out A. Fib. If unweanable, may need Trac+PEg. See orders. Subjective Subjective Reintubated. Objective Objective Last 24 Hour Vital Signs Date Time Temp Pulse Resp B/P (MAP) Pulse Ox O2 Delivery O2 Flow Rate FiO2 08/10/18 06:00 120 12 127/56 (79) 100 08/10/18 05:08 103 13 40 08/10/18 05:00 87 12 111/19 (49) 100 08/10/18 04:00 40 08/10/18 04:00 99.0 117 14 120/40 (66) 100 08/10/18 04:00 Mechanical Ventilator Mechanical Ventilator Mechanical Ventilator Mechanical Ventilator 08/10/18 04:00 113 08/10/18 03:00 70 14 107/16 (46) 100 08/10/18 02:54 71 12 40 08/10/18 02:00 72 15 119/15 (49) 100 08/10/18 01:30 73 12 40 08/10/18 01:00 69 12 108/23 (51) 100 08/10/18 00:00 Mechanical Ventilator Mechanical Ventilator Mechanical Ventilator Mechanical Ventilator 08/10/18 00:00 99.6 102 15 136/27 (63) 100 08/09/18 23:21 72 14 40 08/09/18 23:00 75 15 130/25 (60) 100 08/09/18 22:00 75 15 124/17 (52) 100 08/09/18 21:18 69 12 40 08/09/18 21:00 140/31 08/09/18 21:00 69 12 123/22 (55) 100 08/09/18 20:00 40 08/09/18 20:00 98.8 72 12 140/31 (67) 100 08/09/18 20:00 81 08/09/18 20:00 Mechanical Ventilator Mechanical Ventilator Mechanical Ventilator Mechanical Ventilator 08/09/18 19:01 71 12 40 08/09/18 19:00 82 16 116/24 (54) 100 08/09/18 18:00 97.6 75 15 142/29 (66) 100 08/09/18 17:21 74 12 40 08/09/18 17:00 75 12 101/24 (49) 100 08/09/18 16:00 112 08/09/18 16:00 105 16 137/34 (68) 100 08/09/18 16:00 40 08/09/18 16:00 Mechanical Ventilator Mechanical Ventilator Mechanical Ventilator Mechanical Ventilator 08/09/18 15:17 78 13 40 08/09/18 15:00 79 14 137/30 (65) 100 08/09/18 14:00 97.5 77 14 132/28 (62) 100 08/09/18 13:08 62 15 40 08/09/18 13:00 77 13 133/39 (70) 100 08/09/18 12:00 40 08/09/18 12:00 76 08/09/18 12:00 71 15 125/24 (57) 100 08/09/18 12:00 Mechanical Ventilator Mechanical Ventilator Mechanical Ventilator Mechanical Ventilator 08/09/18 11:00 74 17 110/22 (51) 100 08/09/18 10:58 73 18 40 08/09/18 10:33 129/26 08/09/18 10:00 99.1 80 13 124/29 (60) 100 08/09/18 09:00 89 14 145/44 (77) 100 08/09/18 08:40 88 14 40 08/09/18 08:00 40 08/09/18 08:00 87 08/09/18 08:00 99.9 88 18 121/20 (53) 100 08/09/18 08:00 Mechanical Ventilator Mechanical Ventilator Mechanical Ventilator Mechanical Ventilator 08/09/18 08:00 87 Intake and Output 08/09/18 08/10/18 19:00 07:00 Intake Total 525 ml 330 ml Output Total 0 ml 0 ml Balance 525 ml 330 ml Free Water 110 ml IV Total 55 ml Tube Feeding 360 ml 330 ml Output Urine Total 0 ml 0 ml # Bowel Movements 1 1 Laboratory Tests 08/10/18 04:15: White Blood Count 10.6, Red Blood Count 2.98L, Hemoglobin 8.4L, Hematocrit 27.3L , Mean Corpuscular Volume 92, Mean Corpuscular Hemoglobin 28.3, Mean Corpuscular Hemoglobin Concent 30.9L, Red Cell Distribution Width 19.1H, Platelet Count 198, Mean Platelet Volume 7.6, Neutrophils (%) (Auto) 79.5H, Lymphocytes (%) (Auto) 8.6L, Monocytes (%) (Auto) 10.0, Eosinophils (%) (Auto) 1.4, Basophils (%) (Auto) 0.6, Sodium Level 142, Potassium Level 3.4L, Chloride Level 104, Carbon Dioxide Level 33H, Anion Gap 5, Blood Urea Nitrogen 39H, Creatinine 3.0H, Estimat Glomerular Filtration Rate , Glucose Level 126H, Calcium Level 8.9, Total Bilirubin 0.4, Aspartate Amino Transf (AST/SGOT) 18, Alanine Aminotransferase (ALT/SGPT) 9L, Alkaline Phosphatase 101, Total Protein 6.4, Albumin 1.4L, Globulin 5.0, Albumin/Globulin Ratio 0.3L Height (Feet): 5 Height (Inches): 2.00 Weight (Pounds): 123 Objective Reintubated Cv IRR/IRR Lungs B facundo. Abd SNT. BS + E Rt. foot diabetic ulcers Chase He MD Aug 10, 2018 07:43
[2018-08-10] MEDS ORDERED: Heparin Sod 1000 units/ml 10ml IV PRN (08:00)
--- NOTE | 2018-08-10 08:42 | NUR ---
NURSE NOTES: Called RT informed about order of weaning determination from Dr. Allan.
[2018-08-10] MEDS: Vitamin D 1000 IU Tab GT SCH (09:25)
[2018-08-10] MEDS: Amiodarone 200mg tab NG SCH ×2 (09:26→21:28)
[2018-08-10] MEDS: Meropenem 500 MG in NS 55 ML IVPB SCH (09:27)
[2018-08-10] MEDS: Pantoprazole Inj IVP SCH ×2 (09:27→21:28)
[2018-08-10] MEDS: Minoxidil 2.5mg tab NG SCH ×2 (09:29→21:29)
--- NOTE | 2018-08-10 09:30 | NUR ---
NURSE NOTES: Patient on weaning trial as ordered. Patient tolerating well. No acute distress noted.
--- NOTE | 2018-08-10 09:30 | NUR ---
RESPIRATORY NOTE:Start weaning pt on CPAP PS 10, 35%FiO2, pt is tolerating well, and understand the weaning plan. No SOB or distress noted this time. RN at bedside. Will continue to monitor closely
--- NOTE | 2018-08-10 09:33 | NUR ---
INSURANCE ALL CLINICALS AND REVIEWS FAXED TO [facility] TRACK#: [id number] MICHELINEM: TESFAYE Pederson#[phone] F#: [phone]
--- NOTE | 2018-08-10 09:55 | Pulmonology Progress Note ---
Assessment/Plan Assessment/Plan IMPRESSION: 1. Hypotension. 2. Sepsis. 3. Atrial fibrillation. 4. Bradycardia. 5. Diabetes mellitus. 6. End-stage renal disease on dialysis. 7. Left lung collapse. Resolved 8. Respiratory failure. now reintubated 9. Dysphagia. 10. Dementia. 11. Anemia 12. Pneumonia DISCUSSION: 1. Continue medications. 2. CXR improved 3. status post bronchoscopy 4. Central access 5. Use broad-spectrum antibiotics. 6. May require neurology opinion 7. May require trach Andres Allan M.D. Subjective Interval Events: None new; remains intubated Constitutional: Reports: no symptoms HEENT: Repors: no symptoms Respiratory: Reports: no symptoms Cardiovascular: Reports: no symptoms Gastrointestinal/Abdominal: Reports: no symptoms Genitourinary: Reports: no symptoms Allergies: Coded Allergies: No Known Allergies (Unverified , 07/25/18) Objective Last 24 Hour Vital Signs Date Time Temp Pulse Resp B/P (MAP) Pulse Ox O2 Delivery O2 Flow Rate FiO2 08/10/18 09:30 100 08/10/18 09:30 80 24 35 08/10/18 09:29 120/16 08/10/18 09:00 79 15 118/27 (57) 100 08/10/18 08:50 80 13 40 08/10/18 08:00 Mechanical Ventilator Mechanical Ventilator Mechanical Ventilator Mechanical Ventilator 08/10/18 08:00 84 08/10/18 08:00 40 08/10/18 08:00 98.9 82 17 118/12 (47) 100 08/10/18 07:15 81 13 40 08/10/18 07:00 91 20 119/26 (57) 100 08/10/18 06:00 120 12 127/56 (79) 100 08/10/18 05:08 103 13 40 08/10/18 05:00 87 12 111/19 (49) 100 08/10/18 04:00 40 08/10/18 04:00 99.0 117 14 120/40 (66) 100 08/10/18 04:00 Mechanical Ventilator Mechanical Ventilator Mechanical Ventilator Mechanical Ventilator 08/10/18 04:00 113 08/10/18 03:00 70 14 107/16 (46) 100 08/10/18 02:54 71 12 40 08/10/18 02:00 72 15 119/15 (49) 100 08/10/18 01:30 73 12 40 08/10/18 01:00 69 12 108/23 (51) 100 08/10/18 00:00 Mechanical Ventilator Mechanical Ventilator Mechanical Ventilator Mechanical Ventilator 08/10/18 00:00 99.6 102 15 136/27 (63) 100 08/09/18 23:21 72 14 40 08/09/18 23:00 75 15 130/25 (60) 100 08/09/18 22:00 75 15 124/17 (52) 100 08/09/18 21:18 69 12 40 08/09/18 21:00 140/31 08/09/18 21:00 69 12 123/22 (55) 100 08/09/18 20:00 40 08/09/18 20:00 98.8 72 12 140/31 (67) 100 08/09/18 20:00 81 08/09/18 20:00 Mechanical Ventilator Mechanical Ventilator Mechanical Ventilator Mechanical Ventilator 08/09/18 19:01 71 12 40 08/09/18 19:00 82 16 116/24 (54) 100 08/09/18 18:00 97.6 75 15 142/29 (66) 100 08/09/18 17:21 74 12 40 08/09/18 17:00 75 12 101/24 (49) 100 08/09/18 16:00 112 08/09/18 16:00 105 16 137/34 (68) 100 08/09/18 16:00 40 08/09/18 16:00 Mechanical Ventilator Mechanical Ventilator Mechanical Ventilator Mechanical Ventilator 08/09/18 15:17 78 13 40 08/09/18 15:00 79 14 137/30 (65) 100 08/09/18 14:00 97.5 77 14 132/28 (62) 100 08/09/18 13:08 62 15 40 08/09/18 13:00 77 13 133/39 (70) 100 08/09/18 12:00 40 08/09/18 12:00 76 08/09/18 12:00 71 15 125/24 (57) 100 08/09/18 12:00 Mechanical Ventilator Mechanical Ventilator Mechanical Ventilator Mechanical Ventilator 08/09/18 11:00 74 17 110/22 (51) 100 08/09/18 10:58 73 18 40 08/09/18 10:33 129/26 08/09/18 10:00 99.1 80 13 124/29 (60) 100 Intake and Output 08/09/18 08/10/18 19:00 07:00 Intake Total 525 ml 360 ml Output Total 0 ml 0 ml Balance 525 ml 360 ml Free Water 110 ml IV Total 55 ml Tube Feeding 360 ml 360 ml Output Urine Total 0 ml 0 ml # Bowel Movements 1 1 General Appearance: no acute distress HEENT: normocephalic Respiratory/Chest: chest wall non-tender, lungs clear Cardiovascular: normal peripheral pulses, normal rate Abdomen: normal bowel sounds, soft, non tender Laboratory Tests 08/10/18 04:15: White Blood Count 10.6, Red Blood Count 2.98L, Hemoglobin 8.4L, Hematocrit 27.3L , Mean Corpuscular Volume 92, Mean Corpuscular Hemoglobin 28.3, Mean Corpuscular Hemoglobin Concent 30.9L, Red Cell Distribution Width 19.1H, Platelet Count 198, Mean Platelet Volume 7.6, Neutrophils (%) (Auto) 79.5H, Lymphocytes (%) (Auto) 8.6L, Monocytes (%) (Auto) 10.0, Eosinophils (%) (Auto) 1.4, Basophils (%) (Auto) 0.6, Sodium Level 142, Potassium Level 3.4L, Chloride Level 104, Carbon Dioxide Level 33H, Anion Gap 5, Blood Urea Nitrogen 39H, Creatinine 3.0H, Estimat Glomerular Filtration Rate , Glucose Level 126H, Calcium Level 8.9, Total Bilirubin 0.4, Aspartate Amino Transf (AST/SGOT) 18, Alanine Aminotransferase (ALT/SGPT) 9L, Alkaline Phosphatase 101, Total Protein 6.4, Albumin 1.4L, Globulin 5.0, Albumin/Globulin Ratio 0.3L Current Medications Medications (Trade) Dose Ordered Sig/Renetta Route PRN Reason Start Time Stop Time Status Last Admin Dose Admin Acetaminophen (Tylenol) 650 mg Q6H PRN ORAL Mild Pain/Temp > 100.5 08/02/18 14:15 09/01/18 14:14 08/09/18 05:48 Amiodarone HCl (Cordarone) 200 mg EVERY 12 HOURS NG 08/06/18 21:00 09/03/18 13:59 08/10/18 09:26 Chlorhexidine Gluconate (Rylie-Hex 2%) 1 applic DAILY@1999 TOPIC 07/26/18 20:00 08/25/18 19:59 08/09/18 20:00 Collagenase (Santyl) 1 applic QHS TOPIC 08/04/18 21:00 09/03/18 20:59 08/09/18 21:00 Epoetin Paul (Procrit (for ESRD on dialysis)) 10,000 units WED-WED-WED SUBQ 07/27/18 21:00 08/26/18 20:59 08/08/18 21:08 Heparin Sodium (Porcine) (Heparin 5000 units/ml) 5,000 units EVERY 8 HOURS SUBQ 08/05/18 22:00 09/04/18 21:59 08/10/18 06:26 Heparin Sodium (Porcine) (Heparin Sod 1000 units/ml 10ml) 2,000 unit ONCE PRN IV for dialysis 08/10/18 08:00 08/10/18 23:59 Hydralazine HCl (Apresoline) 10 mg Q4H PRN IV sbp greater than 145 08/08/18 20:30 09/07/18 20:29 Meropenem 500 mg/ Sodium Chloride 55 ml @ 110 mls/hr DAILY IVPB 08/09/18 09:00 08/23/18 08:59 08/10/18 09:27 Minoxidil (Loniten) 5 mg Q12HR NG 07/31/18 21:00 08/30/18 20:59 08/10/18 09:29 Pantoprazole (Protonix) 40 mg Q12HR IVP 07/25/18 21:00 08/25/18 08:59 08/10/18 09:27 Sodium Chloride 1,000 ml @ 500 mls/hr Q2H PRN IVLG sbp<90 during hd 08/10/18 06:00 08/10/18 23:59 Vitamin D (Vitamin D) 1,000 intlu DAILY GT 08/07/18 10:00 09/06/18 09:59 08/10/18 09:25 Andres Allan MD Aug 10, 2018 09:55
--- NOTE | 2018-08-10 10:58 | NUR ---
RESPIRATORY NOTE: Put pt back to AC mode with the same previous settings per pt requested. Pt is stable, no SOB or distress noted. RN notified. Will continue to monitor and sxn as needed.
--- NOTE | 2018-08-10 11:20 | Infectious Diseases Prog Note ---
"Assessment/Plan Assessment/Plan antibiotics : meropenem A 1. VRE | e.coli UTI 2. shock resolved 3. leucocytosis resolved 4. respiratory failure 5. renal failure 6. 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 pleural effusion P 1. continue meropenem 2. will follow up cultures Subjective ROS Limited/Unobtainable: Yes Allergies: Coded Allergies: No Known Allergies (Unverified , 07/25/18) Objective Vital Signs Last 24 Hour Vital Signs Date Time Temp Pulse Resp B/P (MAP) Pulse Ox O2 Delivery O2 Flow Rate FiO2 08/10/18 11:00 80 21 118/12 (47) 99 08/10/18 10:58 80 19 30 08/10/18 10:00 98 35 155/28 (70) 100 08/10/18 09:30 100 08/10/18 09:30 80 24 35 08/10/18 09:29 120/16 08/10/18 09:00 79 15 118/27 (57) 100 08/10/18 08:50 80 13 40 08/10/18 08:00 Mechanical Ventilator Mechanical Ventilator Mechanical Ventilator Mechanical Ventilator 08/10/18 08:00 84 08/10/18 08:00 40 08/10/18 08:00 98.9 82 17 118/12 (47) 100 08/10/18 07:15 81 13 40 08/10/18 07:00 91 20 119/26 (57) 100 08/10/18 06:00 120 12 127/56 (79) 100 08/10/18 05:08 103 13 40 08/10/18 05:00 87 12 111/19 (49) 100 08/10/18 04:00 40 08/10/18 04:00 99.0 117 14 120/40 (66) 100 08/10/18 04:00 Mechanical Ventilator Mechanical Ventilator Mechanical Ventilator Mechanical Ventilator 08/10/18 04:00 113 08/10/18 03:00 70 14 107/16 (46) 100 08/10/18 02:54 71 12 40 08/10/18 02:00 72 15 119/15 (49) 100 08/10/18 01:30 73 12 40 08/10/18 01:00 69 12 108/23 (51) 100 08/10/18 00:00 Mechanical Ventilator Mechanical Ventilator Mechanical Ventilator Mechanical Ventilator 08/10/18 00:00 99.6 102 15 136/27 (63) 100 08/09/18 23:21 72 14 40 08/09/18 23:00 75 15 130/25 (60) 100 08/09/18 22:00 75 15 124/17 (52) 100 08/09/18 21:18 69 12 40 08/09/18 21:00 140/31 08/09/18 21:00 69 12 123/22 (55) 100 08/09/18 20:00 40 08/09/18 20:00 98.8 72 12 140/31 (67) 100 08/09/18 20:00 81 08/09/18 20:00 Mechanical Ventilator Mechanical Ventilator Mechanical Ventilator Mechanical Ventilator 08/09/18 19:01 71 12 40 08/09/18 19:00 82 16 116/24 (54) 100 08/09/18 18:00 97.6 75 15 142/29 (66) 100 08/09/18 17:21 74 12 40 08/09/18 17:00 75 12 101/24 (49) 100 08/09/18 16:00 112 08/09/18 16:00 105 16 137/34 (68) 100 08/09/18 16:00 40 08/09/18 16:00 Mechanical Ventilator Mechanical Ventilator Mechanical Ventilator Mechanical Ventilator 08/09/18 15:17 78 13 40 08/09/18 15:00 79 14 137/30 (65) 100 08/09/18 14:00 97.5 77 14 132/28 (62) 100 08/09/18 13:08 62 15 40 08/09/18 13:00 77 13 133/39 (70) 100 08/09/18 12:00 40 08/09/18 12:00 76 08/09/18 12:00 71 15 125/24 (57) 100 08/09/18 12:00 Mechanical Ventilator Mechanical Ventilator Mechanical Ventilator Mechanical Ventilator Height (Feet): 5 Height (Inches): 2.00 Weight (Pounds): 123 HEENT: other - intubated Respiratory/Chest: lungs clear Cardiovascular: normal rate, regular rhythm, no gallop/murmur Abdomen: soft, non tender Extremities: no edema, other - right arm PICC Laboratory Tests Test 08/10/18 04:15 White Blood Count 10.6 K/UL (4.8-10.8) Red Blood Count 2.98 M/UL (4.20-5.40) L Hemoglobin 8.4 G/DL (12.0-16.0) L Hematocrit 27.3 % (37.0-47.0) L Mean Corpuscular Volume 92 FL (80-99) Mean Corpuscular Hemoglobin 28.3 PG (27.0-31.0) Mean Corpuscular Hemoglobin Concent 30.9 G/DL (32.0-36.0) L Red Cell Distribution Width 19.1 % (11.6-14.8) H Platelet Count 198 K/UL (150-450) Mean Platelet Volume 7.6 FL (6.5-10.1) Neutrophils (%) (Auto) 79.5 % (45.0-75.0) H Lymphocytes (%) (Auto) 8.6 % (20.0-45.0) L Monocytes (%) (Auto) 10.0 % (1.0-10.0) Eosinophils (%) (Auto) 1.4 % (0.0-3.0) Basophils (%) (Auto) 0.6 % (0.0-2.0) Sodium Level 142 MMOL/L (136-145) Potassium Level 3.4 MMOL/L (3.5-5.1) L Chloride Level 104 MMOL/L (98-107) Carbon Dioxide Level 33 MMOL/L (21-32) H Anion Gap 5 mmol/L (5-15) Blood Urea Nitrogen 39 mg/dL (7-18) H Creatinine 3.0 MG/DL (0.55-1.30) H Estimat Glomerular Filtration Rate mL/min (>60) Glucose Level 126 MG/DL (74-106) H Calcium Level 8.9 MG/DL (8.5-10.1) Total Bilirubin 0.4 MG/DL (0.2-1.0) Aspartate Amino Transf (AST/SGOT) 18 U/L (15-37) Alanine Aminotransferase (ALT/SGPT) 9 U/L (12-78) L Alkaline Phosphatase 101 U/L (46-116) Total Protein 6.4 G/DL (6.4-8.2) Albumin 1.4 G/DL (3.4-5.0) L Globulin 5.0 g/dL Albumin/Globulin Ratio 0.3 (1.0-2.7) L Current Medications Medications (Trade) Dose Ordered Sig/Renetta Route PRN Reason Start Time Stop Time Status Last Admin Dose Admin Acetaminophen (Tylenol) 650 mg Q6H PRN ORAL Mild Pain/Temp > 100.5 08/02/18 14:15 09/01/18 14:14 08/09/18 05:48 Amiodarone HCl (Cordarone) 200 mg EVERY 12 HOURS NG 08/06/18 21:00 09/03/18 13:59 08/10/18 09:26 Chlorhexidine Gluconate (Rylie-Hex 2%) 1 applic DAILY@1999 TOPIC 07/26/18 20:00 08/25/18 19:59 08/09/18 20:00 Collagenase (Santyl) 1 applic Q TOPIC 08/04/18 21:00 09/03/18 20:59 08/09/18 21:00 Epoetin Paul (Procrit (for ESRD on dialysis)) 10,000 units WED-WED-WED SUBQ 07/27/18 21:00 08/26/18 20:59 08/08/18 21:08 Heparin Sodium (Porcine) (Heparin 5000 units/ml) 5,000 units EVERY 8 HOURS SUBQ 08/05/18 22:00 09/04/18 21:59 08/10/18 06:26 Heparin Sodium (Porcine) (Heparin Sod 1000 units/ml 10ml) 2,000 unit ONCE PRN IV for dialysis 08/10/18 08:00 08/10/18 23:59 Hydralazine HCl (Apresoline) 10 mg Q4H PRN IV sbp greater than 145 08/08/18 20:30 09/07/18 20:29 Meropenem 500 mg/ Sodium Chloride 55 ml @ 110 mls/hr DAILY IVPB 08/09/18 09:00 08/23/18 08:59 08/10/18 09:27 Minoxidil (Loniten) 5 mg Q12HR NG 07/31/18 21:00 08/30/18 20:59 08/10/18 09:29 Pantoprazole (Protonix) 40 mg Q12HR IVP 07/25/18 21:00 08/25/18 08:59 08/10/18 09:27 Sodium Chloride 1,000 ml @ 500 mls/hr Q2H PRN IVLG sbp<90 during hd 08/10/18 06:00 08/10/18 23:59 Vitamin D (Vitamin D) 1,000 intlu DAILY GT 08/07/18 10:00 09/06/18 09:59 08/10/18 09:25 Omid Morfin MD Aug 10, 2018 11:20"
--- NOTE | 2018-08-10 11:30 | NUR ---
NURSE NOTES: patient back on AC mode. No respiratory distress noted.
--- NOTE | 2018-08-10 13:20 | NUR ---
NURSE NOTES: Sacral wound dressing was changed with wound care nurse. PRN Tylenol given for pain.
--- NOTE | 2018-08-10 14:05 | NUR ---
NURSE NOTES:WOUND CARE FOLLOW-UP NOTES: Dark non-blanchable erythema noted to entire buttocks and both ischial regions(L)11.5cm x (W)15cm with full thickness ulcer noted to Sacrum (L)3.4cm x W(4cm x (D)0.9cm,undermining 12-12with tunneling into L upper to L lower buttocks 7-10 by 14cm at 10o'clock.L buttocks fluctuant with purple area noted in close proximity to sacral wound.Historical arched surgical scar noted to L buttocks at area of tunneling. Wound cleansed with Saline .Loosely packed with Hydrogel impregnated gauze.Cavilon skin Barrier wipe applied periwound .#2 Optifoam drsgs applied to cover entire buttocks. Shearing noted to L ischium .Triad paste applied and covered with Optifoam drsg. Pt positioned with pillows and has an Air fluidized mattress on her bed.Both feet are off-loaded with pillows. Tx.Plan:Cleanse Sacral wound with Saline.Loosely pack with Hydrogel impregnated Packing strips (Attention to tunneling L Upper to L lower Buttocks).Apply Cavilon Skin Barrier periwound.Cover with #2 Optifoam Drsgs Daily and prn. Apply Triad Paste to L Ischium.Cover with Optifoam drsg .Change Daily and prn. Reposition at least every 2hours or as tolerated. Air Fluidized mattress.
--- NOTE | 2018-08-10 15:15 | NUR ---
NURSE NOTES: Left nare NGT was clogged, unable to flush. Stopped tube feeding. Removed NGT. Inserted OGT. Patient tolerated well. KUB was ordered for confirmation of placement.
--- NOTE | 2018-08-10 15:34 | NUR ---
CASE MANAGEMENT: REVIEW SI: SEPSIS . ESRD ON HD . RIGHT FOOT DIABETIC ULCER . ORALLY INTUBATED AV FISTULA 08/09 BRONCHOSCOPY AND LAVAGE 07/26 T 98.4 HR 82 RR 13 BP 116/28 SAT 99% MECH VENT FIO2 40 H/H 8.4/27.3 K 3.4 BUN 39 CR 3.0 IS: MEROPENEM IV QD AMIODARONE NG Q12HR LABETALOL GT Q12HR HEPARIN SQ Q8HR EPOETIN SQ MWF PROTONIX IV Q12HR NGT FEEDING NEPRO @10ML/HR HEMODIALYSIS PRN ICU STATUS DCP: PATIENT IS FROM [facility] PLAN: WEANING DETERMINATION
--- NOTE | 2018-08-10 15:39 | NUR ---
INSURANCE UPDATED CLINICALS AND REVIEW FAXED TO [facility]#: [id number] MICHELINEM: TESFAYE Pederson#[phone] F#: [phone]
--- NOTE | 2018-08-10 16:28 | Diagnostic Imaging Report ---
Indication: Post nasogastric tube placement Technique: One view of the body. Upper abdomen Comparison: none Findings: There is a nasogastric tube in place, tip projected at the level of the gastric body. Numerous surgical clips are seen in the epigastric region. There are extensive arterial calcifications. The lung bases demonstrate pleural fluid on the left. Impression: Satisfactory nasogastric intubation Other findings as described
--- NOTE | 2018-08-10 16:40 | NUR ---
NURSE NOTES: KUB confirmed OGT placement. Resumed tube feeding at 30ml/hr. Pt's son at bedside.
--- NOTE | 2018-08-10 17:39 | Vascular Surgery Progress Note ---
Subjective Subjective All noted Reintubated again for resp failure Awake No complaints Objective Objective Last 24 Hour Vital Signs Date Time Temp Pulse Resp B/P (MAP) Pulse Ox O2 Delivery O2 Flow Rate FiO2 08/10/18 16:54 79 12 30 08/10/18 16:00 98.6 76 14 122/20 (54) 100 08/10/18 16:00 72 08/10/18 16:00 Mechanical Ventilator Mechanical Ventilator Mechanical Ventilator Mechanical Ventilator 08/10/18 16:00 40 08/10/18 15:00 74 14 116/13 (47) 100 08/10/18 14:54 73 16 30 08/10/18 14:00 78 16 113/21 (51) 99 08/10/18 13:20 94 15 30 08/10/18 13:00 80 14 146/134 (138) 100 08/10/18 12:00 Mechanical Ventilator Mechanical Ventilator Mechanical Ventilator Mechanical Ventilator 08/10/18 12:00 98.4 82 13 116/28 (57) 99 08/10/18 12:00 85 08/10/18 12:00 40 08/10/18 11:30 40 08/10/18 11:00 80 21 118/12 (47) 99 08/10/18 10:58 80 19 30 08/10/18 10:00 98 35 155/28 (70) 100 08/10/18 09:30 100 08/10/18 09:30 35 08/10/18 09:30 80 24 35 08/10/18 09:29 120/16 08/10/18 09:00 79 15 118/27 (57) 100 08/10/18 08:50 80 13 40 08/10/18 08:00 Mechanical Ventilator Mechanical Ventilator Mechanical Ventilator Mechanical Ventilator 08/10/18 08:00 84 08/10/18 08:00 40 08/10/18 08:00 98.9 82 17 118/12 (47) 100 08/10/18 07:15 81 13 40 08/10/18 07:00 91 20 119/26 (57) 100 08/10/18 06:00 120 12 127/56 (79) 100 08/10/18 05:08 103 13 40 08/10/18 05:00 87 12 111/19 (49) 100 08/10/18 04:00 40 08/10/18 04:00 99.0 117 14 120/40 (66) 100 08/10/18 04:00 Mechanical Ventilator Mechanical Ventilator Mechanical Ventilator Mechanical Ventilator 08/10/18 04:00 113 08/10/18 03:00 70 14 107/16 (46) 100 08/10/18 02:54 71 12 40 08/10/18 02:00 72 15 119/15 (49) 100 08/10/18 01:30 73 12 40 08/10/18 01:00 69 12 108/23 (51) 100 08/10/18 00:00 Mechanical Ventilator Mechanical Ventilator Mechanical Ventilator Mechanical Ventilator 08/10/18 00:00 99.6 102 15 136/27 (63) 100 08/09/18 23:21 72 14 40 08/09/18 23:00 75 15 130/25 (60) 100 08/09/18 22:00 75 15 124/17 (52) 100 08/09/18 21:18 69 12 40 08/09/18 21:00 140/31 08/09/18 21:00 69 12 123/22 (55) 100 08/09/18 20:00 40 08/09/18 20:00 98.8 72 12 140/31 (67) 100 08/09/18 20:00 81 08/09/18 20:00 Mechanical Ventilator Mechanical Ventilator Mechanical Ventilator Mechanical Ventilator 08/09/18 19:01 71 12 40 08/09/18 19:00 82 16 116/24 (54) 100 08/09/18 18:00 97.6 75 15 142/29 (66) 100 Intake and Output 08/09/18 08/10/18 19:00 07:00 Intake Total 525 ml 360 ml Output Total 0 ml 0 ml Balance 525 ml 360 ml Free Water 110 ml IV Total 55 ml Tube Feeding 360 ml 360 ml Output Urine Total 0 ml 0 ml # Bowel Movements 1 1 Laboratory Tests Test 08/10/18 04:15 White Blood Count 10.6 K/UL (4.8-10.8) Red Blood Count 2.98 M/UL (4.20-5.40) L Hemoglobin 8.4 G/DL (12.0-16.0) L Hematocrit 27.3 % (37.0-47.0) L Mean Corpuscular Volume 92 FL (80-99) Mean Corpuscular Hemoglobin 28.3 PG (27.0-31.0) Mean Corpuscular Hemoglobin Concent 30.9 G/DL (32.0-36.0) L Red Cell Distribution Width 19.1 % (11.6-14.8) H Platelet Count 198 K/UL (150-450) Mean Platelet Volume 7.6 FL (6.5-10.1) Neutrophils (%) (Auto) 79.5 % (45.0-75.0) H Lymphocytes (%) (Auto) 8.6 % (20.0-45.0) L Monocytes (%) (Auto) 10.0 % (1.0-10.0) Eosinophils (%) (Auto) 1.4 % (0.0-3.0) Basophils (%) (Auto) 0.6 % (0.0-2.0) Sodium Level 142 MMOL/L (136-145) Potassium Level 3.4 MMOL/L (3.5-5.1) L Chloride Level 104 MMOL/L (98-107) Carbon Dioxide Level 33 MMOL/L (21-32) H Anion Gap 5 mmol/L (5-15) Blood Urea Nitrogen 39 mg/dL (7-18) H Creatinine 3.0 MG/DL (0.55-1.30) H Estimat Glomerular Filtration Rate mL/min (>60) Glucose Level 126 MG/DL (74-106) H Calcium Level 8.9 MG/DL (8.5-10.1) Total Bilirubin 0.4 MG/DL (0.2-1.0) Aspartate Amino Transf (AST/SGOT) 18 U/L (15-37) Alanine Aminotransferase (ALT/SGPT) 9 U/L (12-78) L Alkaline Phosphatase 101 U/L (46-116) Total Protein 6.4 G/DL (6.4-8.2) Albumin 1.4 G/DL (3.4-5.0) L Globulin 5.0 g/dL Albumin/Globulin Ratio 0.3 (1.0-2.7) L Height (Feet): 5 Height (Inches): 2.00 Weight (Pounds): 123 Objective On vent Awake alert and follows simple commands cvs rrr lungs rhonchi abd soft nontender Left arm av shunt + thrill 2+ femorals 2+ popliteal palpable pulses Absent DP PT pulses Bilateral foot wounds right ankle wound deep Assessment/Plan Assessment Recurrent resp failure on vent now Sepsis/ pneumonia on abx Arrhythmia ESRD on HD 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
--- NOTE | 2018-08-10 18:00 | Podiatric Progress Note ---
Assessment/Plan Patient Kelsi Montana is a 78 year old female who was admitted on Jul 25, 2018 at 10 :32 with Assessment/Plan Assessment/Plan Patient Kelsi Montana is a 78 year old female who was admitted on Jul 25, 2018 at 10 :32 with Problems: (1) ESRD (end stage renal disease) (2) Decubital ulcer (3) Pneumonia (4) Pyelonephritis (5) Altered mental status (6) B/L leg ulcers Assessment/Plan - pt seen and evaluated with nursing staff. - chart reviewed. - Temp, 98.6 - WBC, 10.6 - Cont daily wound care: BID: irrigate with NS, apply santyl, xerofrom and DSD. - Pt awaiting vasc procedure. - Cont ABx. - Pod will cont to monitor. Subjective ROS Limited/Unobtainable: Yes Allergies: Coded Allergies: No Known Allergies (Unverified , 07/25/18) Subjective - Pt re-intubated at bed side. Appears NAD. Objective Exam Last 24 Hour Vital Signs Date Time Temp Pulse Resp B/P (MAP) Pulse Ox O2 Delivery O2 Flow Rate FiO2 08/10/18 17:00 73 12 107/16 (46) 100 08/10/18 16:54 79 12 30 08/10/18 16:00 98.6 76 14 122/20 (54) 100 08/10/18 16:00 72 08/10/18 16:00 Mechanical Ventilator Mechanical Ventilator Mechanical Ventilator Mechanical Ventilator 08/10/18 16:00 40 08/10/18 15:00 74 14 116/13 (47) 100 08/10/18 14:54 73 16 30 08/10/18 14:00 78 16 113/21 (51) 99 08/10/18 13:20 94 15 30 08/10/18 13:00 80 14 146/134 (138) 100 08/10/18 12:00 Mechanical Ventilator Mechanical Ventilator Mechanical Ventilator Mechanical Ventilator 08/10/18 12:00 98.4 82 13 116/28 (57) 99 08/10/18 12:00 85 08/10/18 12:00 40 08/10/18 11:30 40 08/10/18 11:00 80 21 118/12 (47) 99 08/10/18 10:58 80 19 30 12/12/18 10:00 98 35 155/28 (70) 100 08/10/18 09:30 100 08/10/18 09:30 35 08/10/18 09:30 80 24 35 08/10/18 09:29 120/16 08/10/18 09:00 79 15 118/27 (57) 100 08/10/18 08:50 80 13 40 08/10/18 08:00 Mechanical Ventilator Mechanical Ventilator Mechanical Ventilator Mechanical Ventilator 08/10/18 08:00 84 08/10/18 08:00 40 08/10/18 08:00 98.9 82 17 118/12 (47) 100 08/10/18 07:15 81 13 40 08/10/18 07:00 91 20 119/26 (57) 100 08/10/18 06:00 120 12 127/56 (79) 100 08/10/18 05:08 103 13 40 08/10/18 05:00 87 12 111/19 (49) 100 08/10/18 04:00 40 08/10/18 04:00 99.0 117 14 120/40 (66) 100 08/10/18 04:00 Mechanical Ventilator Mechanical Ventilator Mechanical Ventilator Mechanical Ventilator 08/10/18 04:00 113 08/10/18 03:00 70 14 107/16 (46) 100 08/10/18 02:54 71 12 40 08/10/18 02:00 72 15 119/15 (49) 100 08/10/18 01:30 73 12 40 08/10/18 01:00 69 12 108/23 (51) 100 08/10/18 00:00 Mechanical Ventilator Mechanical Ventilator Mechanical Ventilator Mechanical Ventilator 08/10/18 00:00 99.6 102 15 136/27 (63) 100 08/09/18 23:21 72 14 40 08/09/18 23:00 75 15 130/25 (60) 100 08/09/18 22:00 75 15 124/17 (52) 100 08/09/18 21:18 69 12 40 08/09/18 21:00 140/31 08/09/18 21:00 69 12 123/22 (55) 100 08/09/18 20:00 40 08/09/18 20:00 98.8 72 12 140/31 (67) 100 08/09/18 20:00 81 08/09/18 20:00 Mechanical Ventilator Mechanical Ventilator Mechanical Ventilator Mechanical Ventilator 12/11/18 19:01 71 12 40 08/09/18 19:00 82 16 116/24 (54) 100 08/09/18 18:00 97.6 75 15 142/29 (66) 100 Laboratory Tests Test 08/10/18 04:15 White Blood Count 10.6 K/UL (4.8-10.8) Red Blood Count 2.98 M/UL (4.20-5.40) L Hemoglobin 8.4 G/DL (12.0-16.0) L Hematocrit 27.3 % (37.0-47.0) L Mean Corpuscular Volume 92 FL (80-99) Mean Corpuscular Hemoglobin 28.3 PG (27.0-31.0) Mean Corpuscular Hemoglobin Concent 30.9 G/DL (32.0-36.0) L Red Cell Distribution Width 19.1 % (11.6-14.8) H Platelet Count 198 K/UL (150-450) Mean Platelet Volume 7.6 FL (6.5-10.1) Neutrophils (%) (Auto) 79.5 % (45.0-75.0) H Lymphocytes (%) (Auto) 8.6 % (20.0-45.0) L Monocytes (%) (Auto) 10.0 % (1.0-10.0) Eosinophils (%) (Auto) 1.4 % (0.0-3.0) Basophils (%) (Auto) 0.6 % (0.0-2.0) Sodium Level 142 MMOL/L (136-145) Potassium Level 3.4 MMOL/L (3.5-5.1) L Chloride Level 104 MMOL/L (98-107) Carbon Dioxide Level 33 MMOL/L (21-32) H Anion Gap 5 mmol/L (5-15) Blood Urea Nitrogen 39 mg/dL (7-18) H Creatinine 3.0 MG/DL (0.55-1.30) H Estimat Glomerular Filtration Rate mL/min (>60) Glucose Level 126 MG/DL (74-106) H Calcium Level 8.9 MG/DL (8.5-10.1) Total Bilirubin 0.4 MG/DL (0.2-1.0) Aspartate Amino Transf (AST/SGOT) 18 U/L (15-37) Alanine Aminotransferase (ALT/SGPT) 9 U/L (12-78) L Alkaline Phosphatase 101 U/L (46-116) Total Protein 6.4 G/DL (6.4-8.2) Albumin 1.4 G/DL (3.4-5.0) L Globulin 5.0 g/dL Albumin/Globulin Ratio 0.3 (1.0-2.7) L Microbiology Date/Time Source Procedure Growth Status 07/25/18 08:45 Blood Blood Culture - Final NO GROWTH AFTER 5 DAYS Complete 07/27/18 11:40 Other(Specify in comment) Gram Stain - Final Complete 07/27/18 11:40 Wound Culture - Final Pseudomonas Aeruginosa Megha Albicans Complete 08/02/18 17:30 Sputum Gram Stain - Final Complete 08/02/18 17:30 Sputum Culture - Final Megha Albicans Complete 07/25/18 08:30 Urine,Clean Catch Urine Culture - Final Escherichia Coli - Esbl Enterococcus Faecium - Vre Complete 07/27/18 11:40 Sacral Wound Gram Stain - Final Complete 07/27/18 11:40 Wound Culture - Final Staphylococcus Aureus - Mrsa Megha Albicans Complete Neurological Neurological Narrative Derm: Focused LE PE RLE: Multiple ulcerations noted. - Anterior fisher: (-) PTB with fibrotic base. (-) active purulent drainage or acute SOI. Fanny-wound margins erythematous. - Posterior mid-tibia: (-) PTB with fibrotic base. (-) active purulent drainage or acute SOI. Fanny-wound margins erythematous. - Medial ankle: (+) PTB with fibrotic base. (-) active purulent drainage or acute SOI. Fanny-wound margins erythematous. LLE: medial ulceration at heel noted: eschar noted, no acute SOI. No active purulence noted. Fanny-wound margins WNL. Hallux: dorsal-medial superficial abraision. no acute SOI. No active purulence noted. Fanny-wound margins WNL. Kal Delarosa DPM Aug 10, 2018 18:00
--- NOTE | 2018-08-10 18:00 | NUR ---
NURSE NOTES: Finance Intern, Dr. Delarosa, in facility to assess the patient. Wound dressing changed as ordered. Patient tolerated well.
--- NOTE | 2018-08-10 19:00 | NUR ---
NURSE NOTES: Received patient from Ms. Magdalena BLAND and Ms. Rikki RN. Patient asleep, resting in bed comfortably. Patient is orally intubated, ETT size 7.5, 23cm at lip line, Vent settings: AC 12, TV 500, 40% FiO2, PEEP 5, saturating 100%. Left nare NGT intact, running Nepro at 30ml/hr. HOB elevated. Right upper arm midline intact and patent. left upper arm AV shunt noted. S/p dialysis today with 3000ml/out, Patient on p200 mattress. Patient on bilateral wrist soft restraints. Skin intact, pulses present. Bed in lowest position. Call light within reach. Will continue to monitor.
--- NOTE | 2018-08-10 19:01 | NUR ---
RESPIRATORY NOTE: Received pt on current vent settings. Intubated with 7.5 size ett at 22 at the lip secured by anchor fast. SPO2 100%, HR 76. Bilateral rhonchi breath sounds upon auscultation. Alarms are on and audible. Vent is plugged into red outlet. Ambu bag is at the bedside. Will continue to monitor.
--- NOTE | 2018-08-10 19:03 | NUR ---
HAND-OFF: Report given to BALDO Anton.
--- NOTE | 2018-08-10 19:17 | NUR ---
HAND-OFF: Report given to BALDO Anton.
[2018-08-10] MEDS: Dyna-Hex 2% Top Sol 2oz TOPIC SCH (20:00)
--- NOTE | 2018-08-10 20:00 | NUR ---
NURSE NOTES: Patient changed, diarrhea stools noted. Rectal tube put in place, collected stool sample for c-diff and sent to lab. New sacral dressings applied. Patient suctioned and provided oral care and repositioned.
[2018-08-10] MEDS: Epogen (for ESRD on dialysis) SUBQ SCH (21:29)
--- NOTE | 2018-08-10 22:00 | NUR ---
NURSE NOTES: Patient repositioned and suctioned. Vitals remains stable. NAD at this time. Will continue to monitor.
--- NOTE | 2018-08-10 22:19 | Cardiology Progress Note ---
Assessment/Plan Assessment/Plan 1. Hypotension, possibly sepsis versus volume. 2. Paroxysmal episodes of atrial fibrillation history. 3. Bradycardia secondary to medications, amiodarone possibly. 4. Diabetes mellitus. 5. End-stage renal disease, on hemodialysis. 6. Lung collapse. 7. Respiratory failure, status post intubation. 8. Dysphagia. 9. History of dementia. 10. Pulm htn 11. Pleural effusion 12. cardaic arrest 13. chest wall pain post cpr in and out afib amido now 200 bid on hold stool ob neg x2 amiod bid off labetolol for now if need hydralaize to be used vent supprot wean as tolerted may need trachand peg tele review ed agian Subjective ROS Limited/Unobtainable: Yes Subjective on the vent not verba Objective Last 24 Hour Vital Signs Date Time Temp Pulse Resp B/P (MAP) Pulse Ox O2 Delivery O2 Flow Rate FiO2 08/10/18 21:29 125/11 08/10/18 21:01 80 15 30 08/10/18 20:00 40 08/10/18 20:00 Mechanical Ventilator Mechanical Ventilator Mechanical Ventilator Mechanical Ventilator 08/10/18 20:00 80 08/10/18 18:56 76 12 30 08/10/18 18:00 72 12 100/17 (44) 98 08/10/18 17:00 73 12 107/16 (46) 100 08/10/18 16:54 79 12 30 08/10/18 16:00 98.6 76 14 122/20 (54) 100 08/10/18 16:00 72 08/10/18 16:00 Mechanical Ventilator Mechanical Ventilator Mechanical Ventilator Mechanical Ventilator 08/10/18 16:00 40 08/10/18 15:00 74 14 116/13 (47) 100 08/10/18 14:54 73 16 30 08/10/18 14:00 78 16 113/21 (51) 99 08/10/18 13:20 94 15 30 08/10/18 13:00 80 14 146/134 (138) 100 08/10/18 12:00 Mechanical Ventilator Mechanical Ventilator Mechanical Ventilator Mechanical Ventilator 08/10/18 12:00 98.4 82 13 116/28 (57) 99 08/10/18 12:00 85 08/10/18 12:00 40 08/10/18 11:30 40 08/10/18 11:00 80 21 118/12 (47) 99 08/10/18 10:58 80 19 30 08/10/18 10:00 98 35 155/28 (70) 100 08/10/18 09:30 100 08/10/18 09:30 35 08/10/18 09:30 80 24 35 08/10/18 09:29 120/16 08/10/18 09:00 79 15 118/27 (57) 100 08/10/18 08:50 80 13 40 08/10/18 08:00 Mechanical Ventilator Mechanical Ventilator Mechanical Ventilator Mechanical Ventilator 08/10/18 08:00 84 08/10/18 08:00 40 08/10/18 08:00 98.9 82 17 118/12 (47) 100 08/10/18 07:15 81 13 40 08/10/18 07:00 91 20 119/26 (57) 100 08/10/18 06:00 120 12 127/56 (79) 100 08/10/18 05:08 103 13 40 08/10/18 05:00 87 12 111/19 (49) 100 08/10/18 04:00 40 08/10/18 04:00 99.0 117 14 120/40 (66) 100 08/10/18 04:00 Mechanical Ventilator Mechanical Ventilator Mechanical Ventilator Mechanical Ventilator 08/10/18 04:00 113 08/10/18 03:00 70 14 107/16 (46) 100 08/10/18 02:54 71 12 40 08/10/18 02:00 72 15 119/15 (49) 100 08/10/18 01:30 73 12 40 08/10/18 01:00 69 12 108/23 (51) 100 08/10/18 00:00 Mechanical Ventilator Mechanical Ventilator Mechanical Ventilator Mechanical Ventilator 08/10/18 00:00 99.6 102 15 136/27 (63) 100 08/09/18 23:21 72 14 40 08/09/18 23:00 75 15 130/25 (60) 100 General Appearance: no apparent distress, alert, on vent, patient on isolation Intake and Output 08/09/18 08/10/18 19:00 07:00 Intake Total 525 ml 360 ml Output Total 0 ml 0 ml Balance 525 ml 360 ml Free Water 110 ml IV Total 55 ml Tube Feeding 360 ml 360 ml Output Urine Total 0 ml 0 ml # Bowel Movements 1 1 Laboratory Tests Test 08/10/18 04:15 White Blood Count 10.6 K/UL (4.8-10.8) Red Blood Count 2.98 M/UL (4.20-5.40) L Hemoglobin 8.4 G/DL (12.0-16.0) L Hematocrit 27.3 % (37.0-47.0) L Mean Corpuscular Volume 92 FL (80-99) Mean Corpuscular Hemoglobin 28.3 PG (27.0-31.0) Mean Corpuscular Hemoglobin Concent 30.9 G/DL (32.0-36.0) L Red Cell Distribution Width 19.1 % (11.6-14.8) H Platelet Count 198 K/UL (150-450) Mean Platelet Volume 7.6 FL (6.5-10.1) Neutrophils (%) (Auto) 79.5 % (45.0-75.0) H Lymphocytes (%) (Auto) 8.6 % (20.0-45.0) L Monocytes (%) (Auto) 10.0 % (1.0-10.0) Eosinophils (%) (Auto) 1.4 % (0.0-3.0) Basophils (%) (Auto) 0.6 % (0.0-2.0) Sodium Level 142 MMOL/L (136-145) Potassium Level 3.4 MMOL/L (3.5-5.1) L Chloride Level 104 MMOL/L (98-107) Carbon Dioxide Level 33 MMOL/L (21-32) H Anion Gap 5 mmol/L (5-15) Blood Urea Nitrogen 39 mg/dL (7-18) H Creatinine 3.0 MG/DL (0.55-1.30) H Estimat Glomerular Filtration Rate mL/min (>60) Glucose Level 126 MG/DL (74-106) H Calcium Level 8.9 MG/DL (8.5-10.1) Total Bilirubin 0.4 MG/DL (0.2-1.0) Aspartate Amino Transf (AST/SGOT) 18 U/L (15-37) Alanine Aminotransferase (ALT/SGPT) 9 U/L (12-78) L Alkaline Phosphatase 101 U/L (46-116) Total Protein 6.4 G/DL (6.4-8.2) Albumin 1.4 G/DL (3.4-5.0) L Globulin 5.0 g/dL Albumin/Globulin Ratio 0.3 (1.0-2.7) L Angelo Butler MD Aug 10, 2018 22:18
[2018-08-11] VITALS (24 sets, daily range): BP systolic 98–135; BP diastolic 19–40
--- NOTE | 2018-08-11 | NUR ---
NURSE NOTES: Patient repositioned, rectal tube is patent and intact. Complete oral care performed. Vitals remains stable. Will continue to monitor.
--- NOTE | 2018-08-11 02:00 | NUR ---
NURSE NOTES: Patient repositioned and pillows adjusted, no fever, no acute events, will continue to monitor.
--- NOTE | 2018-08-11 04:00 | NUR ---
NURSE NOTES: Patient repositioned and pillows adjusted, no fever, no acute events, will continue to monitor. Patient cleaned.
[2018-08-11] MEDS: Heparin 5000 units/ml inj SUBQ SCH ×3 (06:00→23:08)
--- NOTE | 2018-08-11 06:32 | NUR ---
NURSE NOTES: Patient repositioned and pillows adjusted, no fever, no acute events, will continue to monitor.
--- NOTE | 2018-08-11 07:25 | NUR ---
RESPIRATORY NOTE: Received pt stable on AC/VC 12rr, 500vt, +5, 30% vent settings. Pt endotracheal tube is patent and secured. No resp distress noted. Vent alarms are on and audible. Vent is plugged into red outlet. Will Monitor pt progress.
--- NOTE | 2018-08-11 08:12 | Nephrology Progress Note ---
Assessment/Plan Assessment Seee below Plan MOF stable. Sepsis due to infected diabetic ulcers. On IV Abx. Followed by ID, Vasc. Sx, Podiatry. ESRD HD q MWF Anemia of CKD , DARRYN high dose. Transfuse PRN. A. 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 with LAE. LVEF 65% . Anticoagulate when stable. DW Dr. Butler. In and out A. Fib. If unweanable, may need Trac+PEg. See orders. Subjective Subjective Reintubated. Objective Objective Last 24 Hour Vital Signs Date Time Temp Pulse Resp B/P (MAP) Pulse Ox O2 Delivery O2 Flow Rate FiO2 08/11/18 07:25 78 15 30 08/11/18 07:00 87 17 125/20 (55) 100 08/11/18 06:00 79 17 125/40 (68) 100 08/11/18 05:05 81 12 30 08/11/18 05:00 80 17 126/37 (66) 100 08/11/18 04:00 97.3 81 14 129/35 (66) 100 08/11/18 04:00 30 08/11/18 04:00 112 08/11/18 04:00 Mechanical Ventilator Mechanical Ventilator Mechanical Ventilator Mechanical Ventilator 08/11/18 03:00 117 16 106/40 (62) 100 08/11/18 02:59 123 18 30 08/11/18 02:00 130 18 123/40 (67) 100 08/11/18 01:27 105 17 30 08/11/18 01:00 123 20 133/19 (57) 100 08/11/18 00:00 78 08/11/18 00:00 Mechanical Ventilator Mechanical Ventilator Mechanical Ventilator Mechanical Ventilator 08/11/18 00:00 30 08/11/18 00:00 98.4 83 14 135/27 (63) 100 08/10/18 23:00 81 15 100/14 (42) 100 08/10/18 22:59 77 14 30 08/10/18 22:00 78 14 120/16 (50) 100 08/10/18 21:29 125/11 08/10/18 21:01 80 15 30 08/10/18 21:00 80 14 125/19 (54) 99 08/10/18 20:00 30 08/10/18 20:00 Mechanical Ventilator Mechanical Ventilator Mechanical Ventilator Mechanical Ventilator 08/10/18 20:00 99.4 84 14 129/20 (56) 99 18 20:00 80 08/10/18 19:00 64 15 122/34 (63) 100 08/10/18 18:56 76 12 30 18 18:00 72 12 100/17 (44) 98 08/10/18 17:00 73 12 107/16 (46) 100 08/10/18 16:54 79 12 30 08/10/18 16:00 98.6 76 14 122/20 (54) 100 08/10/18 16:00 72 08/10/18 16:00 Mechanical Ventilator Mechanical Ventilator Mechanical Ventilator Mechanical Ventilator 08/10/18 16:00 40 08/10/18 15:00 74 14 116/13 (47) 100 08/10/18 14:54 73 16 30 08/10/18 14:00 78 16 113/21 (51) 99 08/10/18 13:20 94 15 30 08/10/18 13:00 80 14 146/134 (138) 100 08/10/18 12:00 Mechanical Ventilator Mechanical Ventilator Mechanical Ventilator Mechanical Ventilator 08/10/18 12:00 98.4 82 13 116/28 (57) 99 08/10/18 12:00 85 08/10/18 12:00 40 08/10/18 11:30 40 08/10/18 11:00 80 21 118/12 (47) 99 08/10/18 10:58 80 19 30 08/10/18 10:00 98 35 155/28 (70) 100 08/10/18 09:30 100 08/10/18 09:30 35 08/10/18 09:30 80 24 35 18 09:29 120/16 08/10/18 09:00 79 15 118/27 (57) 100 08/10/18 08:50 80 13 40 Intake and Output 08/10/18 08/11/18 19:00 07:00 Intake Total 400 ml 360 ml Output Total 3000 ml 0 ml Balance -2600 ml 360 ml Intake Oral 0 ml Free Water 50 ml IV Total 110 ml Tube Feeding 240 ml 360 ml Output Urine Total 0 ml 0 ml Hemodialysis UF 3000 ml # Voids 1 # Bowel Movements 2 1 Height (Feet): 5 Height (Inches): 2.00 Weight (Pounds): 126 Objective Reintubated Cv IRR/IRR Lungs B facundo. Abd SNT. BS + E Rt. foot diabetic ulcers Chase He MD Aug 11, 2018 08:12
--- NOTE | 2018-08-11 08:15 | Pulmonology Progress Note ---
Assessment/Plan Assessment/Plan IMPRESSION: 1. Hypotension. 2. Sepsis. 3. Atrial fibrillation. 4. Bradycardia. 5. Diabetes mellitus. 6. End-stage renal disease on dialysis. 7. Left lung collapse. Resolved 8. Respiratory failure. now reintubated 9. Dysphagia. 10. Dementia. 11. Anemia 12. Pneumonia DISCUSSION: 1. Continue medications. 2. CXR improved 3. status post bronchoscopy 4. Central access 5. Use broad-spectrum antibiotics. 6. May require neurology opinion 7. May require trach 8. Continue weaning attempts Andres Allan M.D. Subjective Interval Events: None new Constitutional: Reports: no symptoms HEENT: Repors: no symptoms Respiratory: Reports: no symptoms Cardiovascular: Reports: no symptoms Gastrointestinal/Abdominal: Reports: no symptoms Genitourinary: Reports: no symptoms Allergies: Coded Allergies: No Known Allergies (Unverified , 07/25/18) Objective Last 24 Hour Vital Signs Date Time Temp Pulse Resp B/P (MAP) Pulse Ox O2 Delivery O2 Flow Rate FiO2 08/11/18 07:25 78 15 30 08/11/18 07:00 87 17 125/20 (55) 100 08/11/18 06:00 79 17 125/40 (68) 100 08/11/18 05:05 81 12 30 08/11/18 05:00 80 17 126/37 (66) 100 08/11/18 04:00 97.3 81 14 129/35 (66) 100 08/11/18 04:00 30 08/11/18 04:00 112 08/11/18 04:00 Mechanical Ventilator Mechanical Ventilator Mechanical Ventilator Mechanical Ventilator 08/11/18 03:00 117 16 106/40 (62) 100 08/11/18 02:59 123 18 30 08/11/18 02:00 130 18 123/40 (67) 100 08/11/18 01:27 105 17 30 08/11/18 01:00 123 20 133/19 (57) 100 08/11/18 00:00 78 08/11/18 00:00 Mechanical Ventilator Mechanical Ventilator Mechanical Ventilator Mechanical Ventilator 08/11/18 00:00 30 08/11/18 00:00 98.4 83 14 135/27 (63) 100 08/10/18 23:00 81 15 100/14 (42) 100 08/10/18 22:59 77 14 30 08/10/18 22:00 78 14 120/16 (50) 100 18 21:29 125/11 08/10/18 21:01 80 15 30 08/10/18 21:00 80 14 125/19 (54) 99 08/10/18 20:00 30 08/10/18 20:00 Mechanical Ventilator Mechanical Ventilator Mechanical Ventilator Mechanical Ventilator 08/10/18 20:00 99.4 84 14 129/20 (56) 99 08/10/18 20:00 80 08/10/18 19:00 64 15 122/34 (63) 100 08/10/18 18:56 76 12 30 08/10/18 18:00 72 12 100/17 (44) 98 08/10/18 17:00 73 12 107/16 (46) 100 08/10/18 16:54 79 12 30 08/10/18 16:00 98.6 76 14 122/20 (54) 100 08/10/18 16:00 72 08/10/18 16:00 Mechanical Ventilator Mechanical Ventilator Mechanical Ventilator Mechanical Ventilator 08/10/18 16:00 40 08/10/18 15:00 74 14 116/13 (47) 100 08/10/18 14:54 73 16 30 08/10/18 14:00 78 16 113/21 (51) 99 08/10/18 13:20 94 15 30 08/10/18 13:00 80 14 146/134 (138) 100 08/10/18 12:00 Mechanical Ventilator Mechanical Ventilator Mechanical Ventilator Mechanical Ventilator 08/10/18 12:00 98.4 82 13 116/28 (57) 99 08/10/18 12:00 85 08/10/18 12:00 40 18 11:30 40 08/10/18 11:00 80 21 118/12 (47) 99 18 10:58 80 19 30 08/10/18 10:00 98 35 155/28 (70) 100 18 09:30 100 08/10/18 09:30 35 08/10/18 09:30 80 24 35 18 09:29 120/16 08/10/18 09:00 79 15 118/27 (57) 100 08/10/18 08:50 80 13 40 Intake and Output 08/10/18 08/11/18 19:00 07:00 Intake Total 400 ml 360 ml Output Total 3000 ml 0 ml Balance -2600 ml 360 ml Intake Oral 0 ml Free Water 50 ml IV Total 110 ml Tube Feeding 240 ml 360 ml Output Urine Total 0 ml 0 ml Hemodialysis UF 3000 ml # Voids 1 # Bowel Movements 2 1 General Appearance: no acute distress HEENT: normocephalic Respiratory/Chest: chest wall non-tender, lungs clear Cardiovascular: normal peripheral pulses, normal rate Abdomen: normal bowel sounds Current Medications Medications (Trade) Dose Ordered Sig/Renetta Route PRN Reason Start Time Stop Time Status Last Admin Dose Admin Acetaminophen (Tylenol) 650 mg Q6H PRN ORAL Mild Pain/Temp > 100.5 08/02/18 14:15 09/01/18 14:14 08/10/18 13:15 Amiodarone HCl (Cordarone) 200 mg EVERY 12 HOURS NG 08/06/18 21:00 09/03/18 13:59 08/10/18 21:28 Chlorhexidine Gluconate (Rylie-Hex 2%) 1 applic DAILY@1999 TOPIC 07/26/18 20:00 08/25/18 19:59 08/10/18 20:00 Collagenase (Santyl) 1 applic Q12HR TOPIC 08/10/18 21:00 09/03/18 20:59 08/10/18 21:29 Epoetin Paul (Procrit (for ESRD on dialysis)) 10,000 units WED-WED-WED SUBQ 07/27/18 21:00 08/26/18 20:59 08/10/18 21:29 Heparin Sodium (Porcine) (Heparin 5000 units/ml) 5,000 units EVERY 8 HOURS SUBQ 08/05/18 22:00 09/04/18 21:59 08/11/18 06:00 Hydralazine HCl (Apresoline) 10 mg Q4H PRN IV sbp greater than 145 08/08/18 20:30 09/07/18 20:29 Meropenem 500 mg/ Sodium Chloride 55 ml @ 110 mls/hr DAILY IVPB 08/09/18 09:00 08/23/18 08:59 08/10/18 09:27 Minoxidil (Loniten) 5 mg Q12HR NG 07/31/18 21:00 08/30/18 20:59 08/10/18 21:29 Pantoprazole (Protonix) 40 mg Q12HR IVP 07/25/18 21:00 08/25/18 08:59 08/10/18 21:28 Vitamin D (Vitamin D) 1,000 intlu DAILY GT 08/07/18 10:00 09/06/18 09:59 08/10/18 09:25 Andres Allan MD Aug 11, 2018 08:15
[2018-08-11] MEDS: Meropenem 500 MG in NS 55 ML IVPB SCH (08:47)
[2018-08-11] MEDS: Pantoprazole Inj IVP SCH ×2 (08:47→20:41)
[2018-08-11] MEDS: Vitamin D 1000 IU Tab GT SCH (08:47)
[2018-08-11] MEDS: Amiodarone 200mg tab NG SCH ×2 (08:48→20:41)
[2018-08-11] MEDS: Minoxidil 2.5mg tab NG SCH ×2 (08:48→20:42)
--- NOTE | 2018-08-11 09:10 | NUR ---
NURSE NOTES: Received patient from BALDO Roger. Patient received in bed alert, able to follow commands. Patient is sinus rhythm on the monitor at this time, however patient has a history of a-fib. Patient is intubated ETT 7.5, TV 500, Fio2 30%, peep 5, 02 saturation 100%. Patient bilateral lung sounds are diminished in all lobes. Patient secretions are scant clear and thick. Patient has a OGT Nepro at 30ml, no residual noted, placement checked and verified with bubbling sounds heard auscultation. Abdomen is soft and non tender. Patient denies pain at this time. No acute distress noted. Patient has a rectal tube noted. Patient is anuric. Hemodialysis is scheduled for today. Patient has a right upper arm midline, dressing is dry and intact. Left AV shunt is thrill and bruit present, dressing is dry and intact. Right leg ulcers dressing changed and santyl applied. Bilateral wrist restraints noted, skin is intact and pulses present. Head of bed is at 30 degrees, bed is locked and in the lowest position, bed alarm is on. Will continue to monitor patient and follow plan of care.
[2018-08-11 09:12] LABS: BASOPHILS % (AUTO) 0.5 % (0.0-2.0); HEMATOCRIT 27.9 % (37.0-47.0); HEMOGLOBIN 8.7 G/DL (12.0-16.0); LYMPHOCYTES % (AUTO) 7.3 % (20.0-45.0); MEAN CORPUSCULAR VOLUME 90 FL (80-99); MONOCYTES % (AUTO) 7.9 % (1.0-10.0); NEUTROPHILS % (AUTO) 83.2 % (45.0-75.0); PLATELET COUNT 202 K/UL (150-450); RED BLOOD COUNT 3.08 M/UL (4.20-5.40); RED CELL DISTRIBUTION WIDTH 18.8 % (11.6-14.8); WHITE BLOOD COUNT 11.5 K/UL (4.8-10.8)
[2018-08-11 09:29] LABS: ALANINE AMINOTRANSFERASE 8 U/L (12-78); ALBUMIN 1.5 G/DL (3.4-5.0); ALBUMIN/GLOBULIN RATIO 0.3 (1.0-2.7); ALKALINE PHOSPHATASE 98 U/L (46-116); ANION GAP 6 mmol/L (5-15); ASPARTATE AMINO TRANSFERASE 7 U/L (15-37); BILIRUBIN,TOTAL 0.4 MG/DL (0.2-1.0); BLOOD UREA NITROGEN 36 mg/dL (7-18); CALCIUM 8.6 MG/DL (8.5-10.1); CARBON DIOXIDE 33 MMOL/L (21-32); CHLORIDE 102 MMOL/L (98-107); POTASSIUM 3.2 MMOL/L (3.5-5.1); SODIUM 141 MMOL/L (136-145)
--- NOTE | 2018-08-11 09:38 | NUR ---
Social Service Note Patient continues to require medical intervention. Patient was reintubated and is slowing having weaning trials. Possible trach and gtube needed pending MD recommendations. Patient with HD. Son visits often and provided updated information regarding patient's treatment plan of care. Son prefers placement [place] however if patient requires a trach placement will be limited due to trach and dialysis. Will continue to monitor and assist as needed.
--- NOTE | 2018-08-11 10:36 | NUR ---
NURSE NOTES: Called [facility] and spoke with Pat and scheduled HD for today.
--- NOTE | 2018-08-11 11:30 | NUR ---
NURSE NOTES: Patient repositioned, patient received oral care, patient suctioned with thick clear secretion. Patient is resistive to suctioning and oral care by keeping her mouth shut, patient is oriented and explained the benefit of oral care. Patient was not able to tolerate morning weaning this morning. Cdiff is negative. Head of bed is at 30 degrees, bed is locked and in the lowest position, 3 side rails are up. Bilateral arms are elevated with pillows, bilateral legs are elevated with pillows. Will continue to monitor patient and follow plan of care.
--- NOTE | 2018-08-11 11:47 | Infectious Diseases Prog Note ---
Assessment/Plan Assessment/Plan A: Sepsis UTI Cellulitis of R leg, osteomyelitis Hypercapnic respiratory failure ESRD on HD DM Anemia Dementia PVD R pleural effusion Mucous plug P; Continue Meropenem Subjective ROS Limited/Unobtainable: Yes Constitutional: Reports: no symptoms Cardiovascular: Reports: other - failed weaning Gastrointestinal/Abdominal: Reports: diarrhea Allergies: Coded Allergies: No Known Allergies (Unverified , 07/25/18) Objective Vital Signs Last 24 Hour Vital Signs Date Time Temp Pulse Resp B/P (MAP) Pulse Ox O2 Delivery O2 Flow Rate FiO2 08/11/18 09:00 75 17 135/34 (67) 100 08/11/18 08:50 80 15 30 08/11/18 08:48 121/12 08/11/18 08:00 30 08/11/18 08:00 98.8 81 14 135/20 (58) 100 08/11/18 08:00 64 08/11/18 08:00 Mechanical Ventilator Mechanical Ventilator Mechanical Ventilator 08/11/18 07:25 78 15 30 08/11/18 07:00 87 17 125/20 (55) 100 08/11/18 06:00 79 17 125/40 (68) 100 08/11/18 05:05 81 12 30 08/11/18 05:00 80 17 126/37 (66) 100 08/11/18 04:00 97.3 81 14 129/35 (66) 100 08/11/18 04:00 30 08/11/18 04:00 112 08/11/18 04:00 Mechanical Ventilator Mechanical Ventilator Mechanical Ventilator Mechanical Ventilator 08/11/18 03:00 117 16 106/40 (62) 100 08/11/18 02:59 123 18 30 08/11/18 02:00 130 18 123/40 (67) 100 08/11/18 01:27 105 17 30 08/11/18 01:00 123 20 133/19 (57) 100 08/11/18 00:00 78 08/11/18 00:00 Mechanical Ventilator Mechanical Ventilator Mechanical Ventilator Mechanical Ventilator 08/11/18 00:00 30 08/11/18 00:00 98.4 83 14 135/27 (63) 100 08/10/18 23:00 81 15 100/14 (42) 100 08/10/18 22:59 77 14 30 08/10/18 22:00 78 14 120/16 (50) 100 08/10/18 21:29 125/11 08/10/18 21:01 80 15 30 08/10/18 21:00 80 14 125/19 (54) 99 08/10/18 20:00 30 08/10/18 20:00 Mechanical Ventilator Mechanical Ventilator Mechanical Ventilator Mechanical Ventilator 08/10/18 20:00 99.4 84 14 129/20 (56) 99 08/10/18 20:00 80 08/10/18 19:00 64 15 122/34 (63) 100 08/10/18 18:56 76 12 30 08/10/18 18:00 72 12 100/17 (44) 98 08/10/18 17:00 73 12 107/16 (46) 100 08/10/18 16:54 79 12 30 08/10/18 16:00 98.6 76 14 122/20 (54) 100 08/10/18 16:00 72 08/10/18 16:00 Mechanical Ventilator Mechanical Ventilator Mechanical Ventilator Mechanical Ventilator 08/10/18 16:00 40 08/10/18 15:00 74 14 116/13 (47) 100 08/10/18 14:54 73 16 30 08/10/18 14:00 78 16 113/21 (51) 99 08/10/18 13:20 94 15 30 08/10/18 13:00 80 14 146/134 (138) 100 08/10/18 12:00 Mechanical Ventilator Mechanical Ventilator Mechanical Ventilator Mechanical Ventilator 08/10/18 12:00 98.4 82 13 116/28 (57) 99 08/10/18 12:00 85 08/10/18 12:00 40 Height (Feet): 5 Height (Inches): 2.00 Weight (Pounds): 126 HEENT: other - orally intubated Respiratory/Chest: lungs clear, other - on ventilator Cardiovascular: normal rate, other - R arm PICC line Abdomen: soft, non tender Extremities: no edema Skin: ulcers Neurologic/Psychiatric: alert, responsive Microbiology Date/Time Source Procedure Growth Status 08/10/18 20:00 Stool Clostridium difficile Toxin Assay - Final Complete Laboratory Tests Test 08/11/18 08:10 08/11/18 08:45 White Blood Count 11.5 K/UL (4.8-10.8) H Red Blood Count 3.08 M/UL (4.20-5.40) L Hemoglobin 8.7 G/DL (12.0-16.0) L Hematocrit 27.9 % (37.0-47.0) L Mean Corpuscular Volume 90 FL (80-99) Mean Corpuscular Hemoglobin 28.3 PG (27.0-31.0) Mean Corpuscular Hemoglobin Concent 31.3 G/DL (32.0-36.0) L Red Cell Distribution Width 18.8 % (11.6-14.8) H Platelet Count 202 K/UL (150-450) Mean Platelet Volume 7.4 FL (6.5-10.1) Neutrophils (%) (Auto) 83.2 % (45.0-75.0) H Lymphocytes (%) (Auto) 7.3 % (20.0-45.0) L Monocytes (%) (Auto) 7.9 % (1.0-10.0) Eosinophils (%) (Auto) 1.0 % (0.0-3.0) Basophils (%) (Auto) 0.5 % (0.0-2.0) Sodium Level 141 MMOL/L (136-145) Potassium Level 3.2 MMOL/L (3.5-5.1) L Chloride Level 102 MMOL/L (98-107) Carbon Dioxide Level 33 MMOL/L (21-32) H Anion Gap 6 mmol/L (5-15) Blood Urea Nitrogen 36 mg/dL (7-18) H Creatinine 3.0 MG/DL (0.55-1.30) H Estimat Glomerular Filtration Rate mL/min (>60) Glucose Level 154 MG/DL (74-106) H Calcium Level 8.6 MG/DL (8.5-10.1) Phosphorus Level 3.0 MG/DL (2.5-4.9) Magnesium Level 2.1 MG/DL (1.8-2.4) Total Bilirubin 0.4 MG/DL (0.2-1.0) Aspartate Amino Transf (AST/SGOT) 7 U/L (15-37) L Alanine Aminotransferase (ALT/SGPT) 8 U/L (12-78) L Alkaline Phosphatase 98 U/L (46-116) Total Protein 6.8 G/DL (6.4-8.2) Albumin 1.5 G/DL (3.4-5.0) L Globulin 5.3 g/dL Albumin/Globulin Ratio 0.3 (1.0-2.7) L Arterial Blood pH 7.566 (7.350-7.450) Arterial Blood Partial Pressure CO2 34.3 mmHg (35.0-45.0) L Arterial Blood Partial Pressure O2 72.5 mmHg (75.0-100.0) L Arterial Blood HCO3 30.4 mmol/L (22.0-26.0) H Arterial Blood Oxygen Saturation 95.0 % (95-100) Arterial Blood Base Excess 8.0 (-2-2) H Silverio Test Positive Current Medications Medications (Trade) Dose Ordered Sig/Renetta Route PRN Reason Start Time Stop Time Status Last Admin Dose Admin Acetaminophen (Tylenol) 650 mg Q6H PRN ORAL Mild Pain/Temp > 100.5 08/02/18 14:15 09/01/18 14:14 08/10/18 13:15 Amiodarone HCl (Cordarone) 200 mg EVERY 12 HOURS NG 08/06/18 21:00 09/03/18 13:59 08/11/18 08:48 Chlorhexidine Gluconate (Rylie-Hex 2%) 1 applic DAILY@2000 TOPIC 07/26/18 20:00 08/25/18 19:59 08/10/18 20:00 Collagenase (Santyl) 1 applic Q12HR TOPIC 08/10/18 21:00 09/03/18 20:59 08/11/18 11:02 Epoetin Paul (Procrit (for ESRD on dialysis)) 10,000 units WED-WED-WED SUBQ 07/27/18 21:00 08/26/18 20:59 08/10/18 21:29 Heparin Sodium (Porcine) (Heparin 5000 units/ml) 5,000 units EVERY 8 HOURS SUBQ 08/05/18 22:00 09/04/18 21:59 08/11/18 06:00 Hydralazine HCl (Apresoline) 10 mg Q4H PRN IV sbp greater than 145 08/08/18 20:30 09/07/18 20:29 Iron Sucrose 100 mg/Sodium Chloride 60 ml @ 240 mls/hr BEDTIME IV 08/11/18 21:00 08/15/18 21:14 Meropenem 500 mg/ Sodium Chloride 55 ml @ 110 mls/hr DAILY IVPB 08/09/18 09:00 08/23/18 08:59 08/11/18 08:47 Minoxidil (Loniten) 5 mg Q12HR NG 07/31/18 21:00 08/30/18 20:59 08/11/18 08:48 Pantoprazole (Protonix) 40 mg Q12HR IVP 07/25/18 21:00 08/25/18 08:59 08/11/18 08:47 Vitamin D (Vitamin D) 1,000 intlu DAILY GT 08/07/18 10:00 09/06/18 09:59 08/11/18 08:47 Freedom Randolph MD Aug 11, 2018 11:47
--- NOTE | 2018-08-11 12:00 | NUR ---
CASE MANAGEMENT: REVIEW SI: CELLULITIS OF RIGHT LEG . OSTEOMYELITIS . RESP FAILURE INTUBATED . ESRD ON HD T 98.8 HR 81 RR 14 BP 135/20 SAT 100% MECH VENT FIO2 30 ABG: PH 7.566 PCO2 34.2 PO2 72.5 HCO3 30.4 IS: VENOFER IV QHS MEROPENEM IV QD AMIODARONE NG Q12HR PROCRIT SQ MWF PROTONIX IV Q12HR NGT FEEDING NEPRO @10ML/HR GOAL RATE 30ML/HR ICU STATUS DCP: PATIENT IS FROM [facility]
--- NOTE | 2018-08-11 12:00 | NUR ---
NURSE NOTES: Called Dr. Allan at [phone] and left message in regards to ABG. Awaiting call back.
--- NOTE | 2018-08-11 12:11 | NUR ---
INSURANCE UPDATED CLINICALS AND REVIEW FAXED TO [facility]#: [id number] MICHELINEM: TESFAYE Pederson#[phone] F#: [phone]
--- NOTE | 2018-08-11 13:30 | NUR ---
NURSE NOTES: Patient repositioned, patient allowed to oral suction only around the mouth, Patient is sleeping, no acute distress noted, patient is connected to the telemetry monitor A-fib on the monitor HR 107. Patient bilateral arms are elevated with pillows, bilateral legs are elevated, both feet are floating. Head of bed is in the lowest position, bed alarms are on, 3 bed side rails are elevated. Will continue to monitor patient and follow plans of care.
--- NOTE | 2018-08-11 15:14 | NUR ---
NURSE NOTES: Dr. Allan returned phone call. Dr. Allan was informed of the ABG results, vent settings has now been changed to AC 8, TV 450. Respiratory therapist informed. Will continue to monitor patient and follow plan of care.
--- NOTE | 2018-08-11 15:31 | NUR ---
NURSE NOTES: Patient repositioned, patient is sleeping, family at bedside. Patient is tolerating the vent setting change so far, 02 saturation 100%, RR 13. Patient is sinus rhythm on the cardiac rhythm 72. No acute distress noted. Patient denies pain at this time. Head of bed is at 30 degrees, bed is lcoked and in the lowest position, bed alarm is on, 3 side rails are up. Will continue patient and follow plan of care.
--- NOTE | 2018-08-11 15:54 | NUR ---
RD ASSESSMENT & RECOMMENDATIONS SEE CARE ACTIVITY FOR COMPLETE ASSESSMENT DAILY ESTIMATED NEEDS: Needs based on Critical care+ Advanced Wounds + ESRD/ 60kg 22-30 kcals/kg 6650-9487 total kcals 1.5-2.0 g protein/kg 90-120g g total protein per MD mL/kg total fluid mLs NUTRITION DIAGNOSIS: * Swallowing difficulty R/T respiratory status as evidenced by pt s/p self extubation, s/p code bluce, now reintubated, on OGT feeding. * Increased kcal/prot needs R/T wound healing as evidenced by pt admitted w/ multiple wounds including stage 4 sacral wound, refer to eval. * Altered nutrition related lab values R/T ESRD dx, clinical condition as evidenced by elev creat (4.6-> 3.30 low Na (130-> wnl), elev BNP >35358, low BP, off pressor at this time. CURRENT TF:Nepro @30ml/hr PO DIET RECOMMENDATIONS: MEDICAL RESEARCH ASSISTANT evaluation post extubation, prior to PO diet -> CCHO MED, RENAL ENTERAL NUTRITION RECOMMENDATIONS: Nepro @ 35ml/hr x 24 hrs + Prosource 1pkt TID to provide 840ml, 1512kcal, 68g + 33g prot, 611ml free water WITH HEMODYNAMIC STABILITY 1. Increase goal rate to 35ml/hr x 24 hrs 2. Add Prosource 1 pkt TID to meet increased prot needs WITHOUT HEMODYNAMIC STABILITY, REC TROPHIC FEEDS OF NEPRO @ 10ML/HR X24 HRS ADDITIONAL RECOMMENDATIONS: * Calibrated bedscale wt for accurate CBW (pt w/ added air release mattress * Monitor HD stability- s/p code blue on 08/08, re-intubated. * Wound healing- Nephrovite x 1, Afshin 1pkt BID * Monitor Renal fxn and lytes * SSI w/ TF- h/o DM .
--- NOTE | 2018-08-11 17:30 | NUR ---
NURSE NOTES: patient repositioned, patient received oral care and a little suctioning with her son at bedside encouraging her. Patients vent settings have been changed to AC 8, TV 450, patient is tolerating well 02 saturation 100%. No acute distress noted. Patient is on feeding via OGT Nepro 1.8 at 30ml/hr, no residual. ABG scheduled for tomorrow. Restraints removed for repositioning and for hygiene care, skin remains intact at the wrist and pulses are present. Head of bed is at 30 degrees, bed is locked and alarm is on, 3 side rails are up. Will continue to monitor patients and follow plan of care.
--- NOTE | 2018-08-11 18:25 | NUR ---
NURSE NOTES: Called [facility] to inform them that no one ever showed up for the patient for dialysis. [facility] will call back. Will continue to monitor patient and follow plan of care.
--- NOTE | 2018-08-11 18:39 | NUR ---
NURSE NOTES: Called and left Dr. He a message in regards to the potassium 3.2 and to inform him that the hemodialysis order that he put in for today has not yet been completed and that [facility] has been called and we are awaiting a call back from [facility]. Will continue to monitor patient and follow plan of care.
--- NOTE | 2018-08-11 18:51 | NUR ---
RESPIRATORY NOTE: Received pt on AC 8, 450VT, 30%, PEEP +5. Pt intubated w/ ETT 7.5 @ 22cm lipline, secured by anchorfast. Pt is alert/awake, follows commands. B/S geni, rhonchi/diminished, sxn minimal amounts of thin, clear/white secretions. Vent plugged into red outlet, ambubag at bedside. Pt denies SOB/chest pain at this time & is resting comfortably on current settings. Will continue to monitor pt.
--- NOTE | 2018-08-11 19:05 | NUR ---
HAND-OFF: Report given to BALDO Noriega. No change in condition.
--- NOTE | 2018-08-11 19:30 | NUR ---
NURSE NOTES: Recvd.on a vent.orally intubated,See settigs.Lungs few scatt Rh.Diminished BS at bases.P.Ox-98-100%.suctioned,NS Lavaged.Pos.chg.Confused,and Disoriented.Re-oriented,Re-assurred.Bila.soft wrist restraints on prev.self-injury.NGT Feeding in progress.Anuric.HD Pt.AVF (L) upperarm pos.thrill and Bruit.Renetta. for poss.HD am.
[2018-08-11] MEDS: Dyna-Hex 2% Top Sol 2oz TOPIC SCH (19:51)
[2018-08-11] MEDS: Iron Sucrose 100 MG in NS 55 ML IV SCH (20:41)
--- NOTE | 2018-08-11 21:38 | Cardiology Progress Note ---
Assessment/Plan Assessment/Plan 1. Hypotension, possibly sepsis versus volume. 2. Paroxysmal episodes of atrial fibrillation history. 3. Bradycardia secondary to medications, amiodarone possibly. 4. Diabetes mellitus. 5. End-stage renal disease, on hemodialysis. 6. Lung collapse. 7. Respiratory failure, status post intubation. 8. Dysphagia. 9. History of dementia. 10. Pulm htn 11. Pleural effusion 12. cardaic arrest 13. chest wall pain post cpr in and out afib amido now 200 bid on hold stool ob neg x2 amiod bid off labetolol for now if need hydralaize to be used vent supprot wean as tolerted may need trachand peg tele review ed agian Subjective ROS Limited/Unobtainable: Yes Subjective on the vent not verba Objective Last 24 Hour Vital Signs Date Time Temp Pulse Resp B/P (MAP) Pulse Ox O2 Delivery O2 Flow Rate FiO2 08/11/18 21:00 75 14 104/29 (54) 100 08/11/18 20:51 75 12 30 08/11/18 20:42 95/28 08/11/18 20:00 30 08/11/18 20:00 98.7 88 16 124/35 (64) 98 08/11/18 20:00 Mechanical Ventilator Mechanical Ventilator Mechanical Ventilator 08/11/18 20:00 88 08/11/18 19:00 89 18 126/34 (64) 99 08/11/18 18:48 91 20 30 08/11/18 18:00 72 15 112/36 (61) 100 08/11/18 17:05 72 16 30 08/11/18 17:00 99.4 73 16 113/33 (59) 100 08/11/18 16:00 76 08/11/18 16:00 74 14 120/34 (62) 100 08/11/18 16:00 Mechanical Ventilator Mechanical Ventilator Mechanical Ventilator 08/11/18 15:13 71 12 30 08/11/18 15:00 30 08/11/18 15:00 72 12 110/29 (56) 100 08/11/18 14:00 102 12 98/31 (53) 100 08/11/18 13:00 75 12 100/28 (52) 100 08/11/18 12:00 75 12 114/39 (64) 100 08/11/18 12:00 30 08/11/18 12:00 76 08/11/18 12:00 Mechanical Ventilator Mechanical Ventilator Mechanical Ventilator 08/11/18 11:10 77 12 30 08/11/18 11:00 76 13 113/37 (62) 100 08/11/18 10:00 76 14 125/22 (56) 100 08/11/18 09:00 75 17 135/34 (67) 100 08/11/18 08:50 80 15 30 08/11/18 08:48 121/12 08/11/18 08:00 30 08/11/18 08:00 98.8 81 14 135/20 (58) 100 08/11/18 08:00 64 08/11/18 08:00 Mechanical Ventilator Mechanical Ventilator Mechanical Ventilator 08/11/18 07:25 78 15 30 08/11/18 07:00 87 17 125/20 (55) 100 08/11/18 06:00 79 17 125/40 (68) 100 08/11/18 05:05 81 12 30 08/11/18 05:00 80 17 126/37 (66) 100 08/11/18 04:00 97.3 81 14 129/35 (66) 100 08/11/18 04:00 30 08/11/18 04:00 112 08/11/18 04:00 Mechanical Ventilator Mechanical Ventilator Mechanical Ventilator Mechanical Ventilator 08/11/18 03:00 117 16 106/40 (62) 100 08/11/18 02:59 123 18 30 08/11/18 02:00 130 18 123/40 (67) 100 08/11/18 01:27 105 17 30 08/11/18 01:00 123 20 133/19 (57) 100 08/11/18 00:00 78 08/11/18 00:00 Mechanical Ventilator Mechanical Ventilator Mechanical Ventilator Mechanical Ventilator 08/11/18 00:00 30 08/11/18 00:00 98.4 83 14 135/27 (63) 100 08/10/18 23:00 81 15 100/14 (42) 100 08/10/18 22:59 77 14 30 08/10/18 22:00 78 14 120/16 (50) 100 General Appearance: no apparent distress, on vent, patient on isolation Intake and Output 08/10/18 08/11/18 19:00 07:00 Intake Total 400 ml 360 ml Output Total 3000 ml 0 ml Balance -2600 ml 360 ml Intake Oral 0 ml Free Water 50 ml IV Total 110 ml Tube Feeding 240 ml 360 ml Output Urine Total 0 ml 0 ml Hemodialysis UF 3000 ml # Voids 1 # Bowel Movements 2 1 Laboratory Tests Test 08/11/18 08:10 08/11/18 08:45 White Blood Count 11.5 K/UL (4.8-10.8) H Red Blood Count 3.08 M/UL (4.20-5.40) L Hemoglobin 8.7 G/DL (12.0-16.0) L Hematocrit 27.9 % (37.0-47.0) L Mean Corpuscular Volume 90 FL (80-99) Mean Corpuscular Hemoglobin 28.3 PG (27.0-31.0) Mean Corpuscular Hemoglobin Concent 31.3 G/DL (32.0-36.0) L Red Cell Distribution Width 18.8 % (11.6-14.8) H Platelet Count 202 K/UL (150-450) Mean Platelet Volume 7.4 FL (6.5-10.1) Neutrophils (%) (Auto) 83.2 % (45.0-75.0) H Lymphocytes (%) (Auto) 7.3 % (20.0-45.0) L Monocytes (%) (Auto) 7.9 % (1.0-10.0) Eosinophils (%) (Auto) 1.0 % (0.0-3.0) Basophils (%) (Auto) 0.5 % (0.0-2.0) Sodium Level 141 MMOL/L (136-145) Potassium Level 3.2 MMOL/L (3.5-5.1) L Chloride Level 102 MMOL/L (98-107) Carbon Dioxide Level 33 MMOL/L (21-32) H Anion Gap 6 mmol/L (5-15) Blood Urea Nitrogen 36 mg/dL (7-18) H Creatinine 3.0 MG/DL (0.55-1.30) H Estimat Glomerular Filtration Rate mL/min (>60) Glucose Level 154 MG/DL (74-106) H Calcium Level 8.6 MG/DL (8.5-10.1) Phosphorus Level 3.0 MG/DL (2.5-4.9) Magnesium Level 2.1 MG/DL (1.8-2.4) Total Bilirubin 0.4 MG/DL (0.2-1.0) Aspartate Amino Transf (AST/SGOT) 7 U/L (15-37) L Alanine Aminotransferase (ALT/SGPT) 8 U/L (12-78) L Alkaline Phosphatase 98 U/L (46-116) Total Protein 6.8 G/DL (6.4-8.2) Albumin 1.5 G/DL (3.4-5.0) L Globulin 5.3 g/dL Albumin/Globulin Ratio 0.3 (1.0-2.7) L Arterial Blood pH 7.566 (7.350-7.450) Arterial Blood Partial Pressure CO2 34.3 mmHg (35.0-45.0) L Arterial Blood Partial Pressure O2 72.5 mmHg (75.0-100.0) L Arterial Blood HCO3 30.4 mmol/L (22.0-26.0) H Arterial Blood Oxygen Saturation 95.0 % (95-100) Arterial Blood Base Excess 8.0 (-2-2) H Silverio Test Positive Microbiology Date/Time Source Procedure Growth Status 08/10/18 20:00 Stool Clostridium difficile Toxin Assay - Final Complete Angelo Butler MD Aug 11, 2018 21:38
--- NOTE | 2018-08-11 22:00 | NUR ---
NURSE NOTES: HS care prov.Pos.chg.Backrub with Lotion.Suctioned.Status same.
[2018-08-12] VITALS (23 sets, daily range): BP systolic 92–133; BP diastolic 11–49
--- NOTE | 2018-08-12 00:10 | NUR ---
NURSE NOTES: Repositioned,Suctioned.Kenneth.NGT Feeding.NO Asp.See V/S.Scope SR.Cont.Ca.monitoring.
--- NOTE | 2018-08-12 02:00 | NUR ---
NURSE NOTES: Pos. chg.Suctioned.No Distress.
--- NOTE | 2018-08-12 04:10 | NUR ---
NURSE NOTES: Sept well.Pos. chg. q2hrs.Bathe,linen chg.No distress.Suctioned freq.Kenneth.Vent.settings.See V/S.Scope rhythm remain on Sinus.
[2018-08-12] MEDS: Heparin 5000 units/ml inj SUBQ SCH ×3 (06:05→21:57)
--- NOTE | 2018-08-12 07:23 | NUR ---
HAND-OFF: Report given to BALDO FERRERA.
--- NOTE | 2018-08-12 07:26 | NUR ---
Received Patient on Vent Settings of ACVC RR 8, VT 450, FIO2 30%, PEEP +5. Pt intubated with 7.5 ETT with a 22cm lipline, secured by anchorfast. Pt is alert, awake, and follows commands. Bilateral rhonchi heard upon auscultation. Suction minimal amounts of thin, clear secretions. Vent plugged into red outlet. Ambubag at bedside.Will continue to monitor throughout the day.
--- NOTE | 2018-08-12 07:33 | NUR ---
NURSE NOTES: Received patient from Huan Noriega. Received patient in bed sleeping, patient is connected to vent ETT 7.5, 22cm at the left lip line, vent settings are AC 8, Tv 450, peep 5, fio2 30%, 02 saturation 100%. Patient is connected to the property assessment monitor patient is currently sinus rhythm on the monitor HR 70. Bilateral lung sound diminished in all lobes upon auscultation. Patient suctioned with scant clear thick secretion.Patient abdomen is soft and non tender, patient OGT patent, flushed no residual, running Nepro 30ml/hr, bowel sounds are hypoactive. Patient has a rectal tube small dark stool seen in tube, Patient is anuric. Patient has a left AV shunt thrill felt upon palpation and bruit heard upon auscultation. Patient has a right upper arm midline asymptomatic, patent, running TKO, dressing is dry and in tact. Bilateral arms 3+ indentation noted, Bilateral 1+ indentation noted. Patient has a wounds on left lower and right lower legs dressing are all dry and intact. No acute distress noted. Head of bed is at 30 degrees, bed is locked and in the lowest position, 3 side rails are up, patient has an p200 mattress. Will continue to monitor patient and follow plan of care.
[2018-08-12] MEDS: Pantoprazole Inj IVP SCH ×2 (08:18→20:57)
[2018-08-12] MEDS: Vitamin D 1000 IU Tab GT SCH (08:18)
[2018-08-12] MEDS: Minoxidil 2.5mg tab NG SCH ×2 (08:19→20:57)
[2018-08-12] MEDS: Amiodarone 200mg tab NG SCH ×2 (08:19→20:57)
[2018-08-12] MEDS: Meropenem 500 MG in NS 55 ML IVPB SCH (08:23)
--- NOTE | 2018-08-12 08:38 | NUR ---
Attempted to wean Patient. Placed on SBT with PS +8 and PEEP +5 at 0835. Patients effort immediately decreased and RR increased from 17 BPM to 30BPM. Placed back on previous settings within a minute.
--- NOTE | 2018-08-12 08:40 | Pulmonology Progress Note ---
Assessment/Plan Assessment/Plan 1. Hypotension, resolved 2. Sepsis. 3. Atrial fibrillation, paroxysmal 4. Pneumonia 5. Diabetes mellitus. 6. End-stage renal disease on dialysis. 7. Left lung collapse. Resolved 8. Respiratory failure, now reintubated 9. Dysphagia. 10. Dementia. 11. Anemia DISCUSSION: 1. Low grade fever 2. CXR small effsuions 3. status post bronchoscopy 4. Central access 5. Use broad-spectrum antibiotics. 6. NOT weanable at present with spont TV <100cc 7. May require trach Subjective ROS Limited/Unobtainable: Yes Allergies: Coded Allergies: No Known Allergies (Unverified , 07/25/18) Objective Last 24 Hour Vital Signs Date Time Temp Pulse Resp B/P (MAP) Pulse Ox O2 Delivery O2 Flow Rate FiO2 08/12/18 08:19 125/43 08/12/18 07:00 72 14 125/43 (70) 100 08/12/18 06:58 72 14 30 08/12/18 06:00 76 17 110/33 (58) 93 08/12/18 05:07 74 15 30 08/12/18 05:00 73 16 117/39 (65) 96 08/12/18 04:00 98.7 74 14 107/24 (51) 93 08/12/18 04:00 30 08/12/18 04:00 Mechanical Ventilator Mechanical Ventilator Mechanical Ventilator 08/12/18 04:00 74 08/12/18 03:00 75 15 106/28 (54) 99 08/12/18 02:57 75 15 30 08/12/18 02:00 74 15 108/26 (53) 94 08/12/18 01:00 75 16 30 08/12/18 01:00 77 16 101/28 (52) 95 08/12/18 00:00 30 08/12/18 00:00 98.9 79 17 113/30 (57) 97 08/12/18 00:00 79 08/12/18 00:00 Mechanical Ventilator Mechanical Ventilator Mechanical Ventilator 08/11/18 23:11 72 13 30 08/11/18 23:00 74 14 107/25 (52) 99 08/11/18 22:00 76 16 109/23 (51) 99 08/11/18 21:00 75 14 104/29 (54) 100 08/11/18 20:51 75 12 30 08/11/18 20:42 95/28 08/11/18 20:00 30 08/11/18 20:00 98.7 88 16 124/35 (64) 98 08/11/18 20:00 Mechanical Ventilator Mechanical Ventilator Mechanical Ventilator 08/11/18 20:00 88 08/11/18 19:00 89 18 126/34 (64) 99 08/11/18 18:48 91 20 30 08/11/18 18:00 72 15 112/36 (61) 100 08/11/18 17:05 72 16 30 08/11/18 17:00 99.4 73 16 113/33 (59) 100 08/11/18 16:00 76 08/11/18 16:00 74 14 120/34 (62) 100 08/11/18 16:00 Mechanical Ventilator Mechanical Ventilator Mechanical Ventilator 08/11/18 15:13 71 12 30 08/11/18 15:00 30 08/11/18 15:00 72 12 110/29 (56) 100 08/11/18 14:00 102 12 98/31 (53) 100 08/11/18 13:00 75 12 100/28 (52) 100 08/11/18 12:00 75 12 114/39 (64) 100 08/11/18 12:00 30 08/11/18 12:00 76 08/11/18 12:00 Mechanical Ventilator Mechanical Ventilator Mechanical Ventilator 08/11/18 11:10 77 12 30 08/11/18 11:00 76 13 113/37 (62) 100 08/11/18 10:00 76 14 125/22 (56) 100 08/11/18 09:00 75 17 135/34 (67) 100 08/11/18 08:50 80 15 30 08/11/18 08:48 121/12 Intake and Output 08/11/18 08/12/18 18:59 06:59 Intake Total 430 ml 530 ml Output Total 0 ml 0 ml Balance 430 ml 530 ml Free Water 70 ml 110 ml IV Total 60 ml Tube Feeding 360 ml 360 ml Output Urine Total 0 ml 0 ml Stool Total 0 ml General Appearance: no acute distress HEENT: normocephalic, atraumatic Respiratory/Chest: lungs clear Cardiovascular: normal rate Abdomen: soft, non tender Microbiology Date/Time Source Procedure Growth Status 08/10/18 20:00 Stool Clostridium difficile Toxin Assay - Final Complete Laboratory Tests 08/11/18 08:45: Arterial Blood pH 7.566*H, Arterial Blood Partial Pressure CO2 34.3L, Arterial Blood Partial Pressure O2 72.5L, Arterial Blood HCO3 30.4H, Arterial Blood Oxygen Saturation 95.0, Arterial Blood Base Excess 8.0H, Silverio Test Positive 08/12/18 08:05: Arterial Blood pH 7.539H, Arterial Blood Partial Pressure CO2 33.5L, Arterial Blood Partial Pressure O2 121.6H, Arterial Blood HCO3 27.9H, Arterial Blood Oxygen Saturation 98.2, Arterial Blood Base Excess 5.3H, Silverio Test N/a Current Medications Medications (Trade) Dose Ordered Sig/Renetta Route PRN Reason Start Time Stop Time Status Last Admin Dose Admin Acetaminophen (Tylenol) 650 mg Q6H PRN ORAL Mild Pain/Temp > 100.5 08/02/18 14:15 09/01/18 14:14 08/10/18 13:15 Amiodarone HCl (Cordarone) 200 mg EVERY 12 HOURS NG 08/06/18 21:00 09/03/18 13:59 08/12/18 08:19 Chlorhexidine Gluconate (Rylie-Hex 2%) 1 applic DAILY@1999 TOPIC 07/26/18 20:00 08/25/18 19:59 08/11/18 19:51 Collagenase (Santyl) 1 applic Q12HR TOPIC 08/10/18 21:00 09/03/18 20:59 08/11/18 20:42 Epoetin Paul (Procrit (for ESRD on dialysis)) 10,000 units WED-WED-WED SUBQ 07/27/18 21:00 08/26/18 20:59 08/10/18 21:29 Heparin Sodium (Porcine) (Heparin 5000 units/ml) 5,000 units EVERY 8 HOURS SUBQ 08/05/18 22:00 09/04/18 21:59 08/12/18 06:05 Hydralazine HCl (Apresoline) 10 mg Q4H PRN IV sbp greater than 145 08/08/18 20:30 09/07/18 20:29 Iron Sucrose 100 mg/Sodium Chloride 60 ml @ 240 mls/hr BEDTIME IV 08/11/18 21:00 08/15/18 21:14 08/11/18 20:41 Meropenem 500 mg/ Sodium Chloride 55 ml @ 110 mls/hr DAILY IVPB 08/09/18 09:00 08/23/18 08:59 08/12/18 08:23 Minoxidil (Loniten) 5 mg Q12HR NG 07/31/18 21:00 08/30/18 20:59 08/12/18 08:19 Pantoprazole (Protonix) 40 mg Q12HR IVP 07/25/18 21:00 08/25/18 08:59 08/12/18 08:18 Vitamin D (Vitamin D) 1,000 intlu DAILY GT 08/07/18 10:00 09/06/18 09:59 08/12/18 08:18 Connor Ellis MD Aug 12, 2018 08:40
--- NOTE | 2018-08-12 09:12 | Nephrology Progress Note ---
Assessment/Plan Assessment Seee below Plan MOF stable. Sepsis due to infected diabetic ulcers. On IV Abx. Followed by ID, Vasc. Sx, Podiatry. ESRD HD q MWF Anemia of CKD , DARRYN high dose. Transfuse PRN. A. 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 with LAE. LVEF 65% . Anticoagulate when stable. DW Dr. Butler. In and out A. Fib. Unweanable, may need Trac+PEG. See orders. Subjective Subjective Reintubated. Another short trial of weaning by Dr. Ellis failed. HD starting. Objective Objective Last 24 Hour Vital Signs Date Time Temp Pulse Resp B/P (MAP) Pulse Ox O2 Delivery O2 Flow Rate FiO2 08/12/18 08:37 100 08/12/18 08:36 107 18 30 08/12/18 08:35 74 30 40 08/12/18 08:19 125/43 08/12/18 08:00 Mechanical Ventilator Mechanical Ventilator Mechanical Ventilator 08/12/18 08:00 98.3 72 18 125/43 (70) 100 08/12/18 08:00 45 08/12/18 07:00 72 14 125/43 (70) 100 08/12/18 06:58 72 14 45 08/12/18 06:00 76 17 110/33 (58) 93 08/12/18 05:07 74 15 30 08/12/18 05:00 73 16 117/39 (65) 96 08/12/18 04:00 98.7 74 14 107/24 (51) 93 08/12/18 04:00 30 08/12/18 04:00 Mechanical Ventilator Mechanical Ventilator Mechanical Ventilator 08/12/18 04:00 74 08/12/18 03:00 75 15 106/28 (54) 99 08/12/18 02:57 75 15 30 08/12/18 02:00 74 15 108/26 (53) 94 08/12/18 01:00 75 16 30 08/12/18 01:00 77 16 101/28 (52) 95 08/12/18 00:00 30 08/12/18 00:00 98.9 79 17 113/30 (57) 97 08/12/18 00:00 79 08/12/18 00:00 Mechanical Ventilator Mechanical Ventilator Mechanical Ventilator 08/11/18 23:11 72 13 30 08/11/18 23:00 74 14 107/25 (52) 99 08/11/18 22:00 76 16 109/23 (51) 99 08/11/18 21:00 75 14 104/29 (54) 100 08/11/18 20:51 75 12 30 08/11/18 20:42 95/28 08/11/18 20:00 30 08/11/18 20:00 98.7 88 16 124/35 (64) 98 08/11/18 20:00 Mechanical Ventilator Mechanical Ventilator Mechanical Ventilator 08/11/18 20:00 88 08/11/18 19:00 89 18 126/34 (64) 99 08/11/18 18:48 91 20 30 08/11/18 18:00 72 15 112/36 (61) 100 08/11/18 17:05 72 16 30 08/11/18 17:00 99.4 73 16 113/33 (59) 100 08/11/18 16:00 76 08/11/18 16:00 74 14 120/34 (62) 100 08/11/18 16:00 Mechanical Ventilator Mechanical Ventilator Mechanical Ventilator 08/11/18 15:13 71 12 30 08/11/18 15:00 30 08/11/18 15:00 72 12 110/29 (56) 100 08/11/18 14:00 102 12 98/31 (53) 100 08/11/18 13:00 75 12 100/28 (52) 100 08/11/18 12:00 75 12 114/39 (64) 100 08/11/18 12:00 30 08/11/18 12:00 76 08/11/18 12:00 Mechanical Ventilator Mechanical Ventilator Mechanical Ventilator 08/11/18 11:10 77 12 30 08/11/18 11:00 76 13 113/37 (62) 100 08/11/18 10:00 76 14 125/22 (56) 100 Intake and Output 08/11/18 08/12/18 18:59 06:59 Intake Total 430 ml 530 ml Output Total 0 ml 0 ml Balance 430 ml 530 ml Free Water 70 ml 110 ml IV Total 60 ml Tube Feeding 360 ml 360 ml Output Urine Total 0 ml 0 ml Stool Total 0 ml Laboratory Tests 08/12/18 08:05: Arterial Blood pH 7.539H, Arterial Blood Partial Pressure CO2 33.5L, Arterial Blood Partial Pressure O2 121.6H, Arterial Blood HCO3 27.9H, Arterial Blood Oxygen Saturation 98.2, Arterial Blood Base Excess 5.3H, Silverio Test N/a Height (Feet): 5 Height (Inches): 2.00 Weight (Pounds): 125 Objective Reintubated Cv IRR/IRR Lungs B facundo. Abd SNT. BS + E Rt. foot diabetic ulcers Chase He MD Aug 12, 2018 09:12
--- NOTE | 2018-08-12 09:33 | NUR ---
NURSE NOTES: Patient repositioned, received suctioning orally with clear thick secretions, oral care given, patient is resistive to care, patient closes mouth to keep staff from suctioning or cleaning her mouth. Patient has bilateral wrist restraints skin is intact and pulses are prsent. Patient is alert, follow commands. Bilateral arms are elevated with pillows, bilateral legs are elevated with pillows, heels are floated. Head of bed is at 30 degrees, bed is locked and in the lowest position, 3 side rails are up. No acute distress noted and patient denies pain. Will continue to monitor patient and follow plan of care.
[2018-08-12] MEDS ORDERED: NS 275ml ONE (10:39)
--- NOTE | 2018-08-12 11:14 | Infectious Diseases Prog Note ---
"Assessment/Plan Assessment/Plan antibiotics : meropenem A 1. 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 shock resolved 3. leucocytosis resolved 4. respiratory failure 5. renal failure 6. 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 pleural effusion P 1. continue meropenem 2. will follow up cultures Subjective ROS Limited/Unobtainable: Yes Allergies: Coded Allergies: No Known Allergies (Unverified , 07/25/18) Objective Vital Signs Last 24 Hour Vital Signs Date Time Temp Pulse Resp B/P (MAP) Pulse Ox O2 Delivery O2 Flow Rate FiO2 08/12/18 10:49 75 19 30 08/12/18 08:37 100 08/12/18 08:36 107 18 30 08/12/18 08:35 74 30 40 08/12/18 08:19 125/43 08/12/18 08:00 74 08/12/18 08:00 Mechanical Ventilator Mechanical Ventilator Mechanical Ventilator 08/12/18 08:00 98.3 72 18 125/43 (70) 100 08/12/18 08:00 45 08/12/18 07:00 72 14 125/43 (70) 100 08/12/18 06:58 72 14 45 08/12/18 06:00 76 17 110/33 (58) 93 08/12/18 05:07 74 15 30 08/12/18 05:00 73 16 117/39 (65) 96 08/12/18 04:00 98.7 74 14 107/24 (51) 93 08/12/18 04:00 30 08/12/18 04:00 Mechanical Ventilator Mechanical Ventilator Mechanical Ventilator 08/12/18 04:00 74 08/12/18 03:00 75 15 106/28 (54) 99 08/12/18 02:57 75 15 30 08/12/18 02:00 74 15 108/26 (53) 94 08/12/18 01:00 75 16 30 08/12/18 01:00 77 16 101/28 (52) 95 08/12/18 00:00 30 08/12/18 00:00 98.9 79 17 113/30 (57) 97 08/12/18 00:00 79 08/12/18 00:00 Mechanical Ventilator Mechanical Ventilator Mechanical Ventilator 08/11/18 23:11 72 13 30 08/11/18 23:00 74 14 107/25 (52) 99 08/11/18 22:00 76 16 109/23 (51) 99 08/11/18 21:00 75 14 104/29 (54) 100 08/11/18 20:51 75 12 30 08/11/18 20:42 95/28 08/11/18 20:00 30 08/11/18 20:00 98.7 88 16 124/35 (64) 98 08/11/18 20:00 Mechanical Ventilator Mechanical Ventilator Mechanical Ventilator 08/11/18 20:00 88 08/11/18 19:00 89 18 126/34 (64) 99 08/11/18 18:48 91 20 30 08/11/18 18:00 72 15 112/36 (61) 100 08/11/18 17:05 72 16 30 08/11/18 17:00 99.4 73 16 113/33 (59) 100 08/11/18 16:00 76 08/11/18 16:00 74 14 120/34 (62) 100 08/11/18 16:00 Mechanical Ventilator Mechanical Ventilator Mechanical Ventilator 08/11/18 15:13 71 12 30 08/11/18 15:00 30 08/11/18 15:00 72 12 110/29 (56) 100 08/11/18 14:00 102 12 98/31 (53) 100 08/11/18 13:00 75 12 100/28 (52) 100 08/11/18 12:00 75 12 114/39 (64) 100 08/11/18 12:00 30 08/11/18 12:00 76 08/11/18 12:00 Mechanical Ventilator Mechanical Ventilator Mechanical Ventilator Height (Feet): 5 Height (Inches): 2.00 Weight (Pounds): 125 HEENT: other - intubated Respiratory/Chest: lungs clear Cardiovascular: normal rate, regular rhythm, no gallop/murmur Abdomen: soft, non tender Extremities: no edema, other - right arm PICC Microbiology Date/Time Source Procedure Growth Status 08/10/18 20:00 Stool Clostridium difficile Toxin Assay - Final Complete Laboratory Tests Test 08/12/18 08:05 Arterial Blood pH 7.539 (7.350-7.450) Arterial Blood Partial Pressure CO2 33.5 mmHg (35.0-45.0) L Arterial Blood Partial Pressure O2 121.6 mmHg (75.0-100.0) H Arterial Blood HCO3 27.9 mmol/L (22.0-26.0) H Arterial Blood Oxygen Saturation 98.2 % (95-100) Arterial Blood Base Excess 5.3 (-2-2) H Silverio Test N/a Current Medications Medications (Trade) Dose Ordered Sig/Renetta Route PRN Reason Start Time Stop Time Status Last Admin Dose Admin Acetaminophen (Tylenol) 650 mg Q6H PRN ORAL Mild Pain/Temp > 100.5 08/02/18 14:15 09/01/18 14:14 08/10/18 13:15 Amiodarone HCl (Cordarone) 200 mg EVERY 12 HOURS NG 08/06/18 21:00 09/03/18 13:59 08/12/18 08:19 Chlorhexidine Gluconate (Rylie-Hex 2%) 1 applic DAILY@1999 TOPIC 07/26/18 20:00 08/25/18 19:59 08/11/18 19:51 Collagenase (Santyl) 1 applic Q12HR TOPIC 08/10/18 21:00 09/03/18 20:59 08/11/18 20:42 Epoetin Paul (Procrit (for ESRD on dialysis)) 10,000 units WED-WED-WED SUBQ 07/27/18 21:00 08/26/18 20:59 08/10/18 21:29 Heparin Sodium (Porcine) (Heparin 5000 units/ml) 5,000 units EVERY 8 HOURS SUBQ 08/05/18 22:00 09/04/18 21:59 08/12/18 06:05 Hydralazine HCl (Apresoline) 10 mg Q4H PRN IV sbp greater than 145 08/08/18 20:30 09/07/18 20:29 Iron Sucrose 100 mg/Sodium Chloride 60 ml @ 240 mls/hr BEDTIME IV 08/11/18 21:00 08/15/18 21:14 08/11/18 20:41 Meropenem 500 mg/ Sodium Chloride 55 ml @ 110 mls/hr DAILY IVPB 08/09/18 09:00 08/23/18 08:59 08/12/18 08:23 Minoxidil (Loniten) 5 mg Q12HR NG 07/31/18 21:00 1/1/19 20:59 08/12/18 08:19 Pantoprazole (Protonix) 40 mg Q12HR IVP 07/25/18 21:00 08/25/18 08:59 08/12/18 08:18 Vitamin D (Vitamin D) 1,000 intlu DAILY GT 08/07/18 10:00 09/06/18 09:59 08/12/18 08:18 Omid Morfin MD Aug 12, 2018 11:14"
--- NOTE | 2018-08-12 11:30 | NUR ---
NURSE NOTES: Patient repositioned, patient suctioned with clear secretion. Patient is sleeping, same vent settings. Patient is on bilateral wrist restraints, restraints removed for repositioning and for hygiene. Head of be is at 30 degrees, bed is locked and in the lowest position, no change in condition, no acute distress noted. Will continue to monitor patient and follow plan of care.
--- NOTE | 2018-08-12 11:44 | NUR ---
CASE MANAGEMENT: REVIEW SI: CELLULITIS OF RIGHT LEG . OSTEOMYELITIS . RESP FAILURE INTUBATED . ESRD ON HD T 98.3 HR 107 RR 14 BP 92/33 SAT 99% MECH VENT FIO2 45 ABG: PH 7.539 PCO2 33.5 PO2 121.6 HCO3 27.9 IS: VENOFER IV QHS MEROPENEM IV QD AMIODARONE NG Q12HR PROCRIT SQ MWF PROTONIX IV Q12HR NGT FEEDING NEPRO @10ML/HR GOAL RATE 30ML/HR ICU STATUS DCP: PATIENT IS FROM [facility]
--- NOTE | 2018-08-12 11:47 | NUR ---
INSURANCE UPDATED CLINICALS AND REVIEW FAXED TO [facility]#: [id number] MICHELINEM: TESFAYE Pederson#[phone] F#: [phone]
--- NOTE | 2018-08-12 13:33 | NUR ---
NURSE NOTES: Patient repositioned and she refused suctioning a this time. Arsen is being encourage throughout the shift to allow us to suction and clean her mouth. Patient has been explained the risk and benefits of staff not cleaning her mouth. Head of bed is at 30 degrees, bed is locked and in the lowest position, 3 side rails are up, bed alarm is on. Will continue to monitor patient and follow plan of care.
--- NOTE | 2018-08-12 15:30 | NUR ---
NURSE NOTES: Patient repositioned, patient orally suctioned with thick clear secretions, oral care given. Patient began hemodialysis. Patient is in no cute distress, patient is sinus rhythm and a-fib seen on the monitor. Patient denies pain at this time. Will continue to monitor patient and follow plan of care.
--- NOTE | 2018-08-12 17:30 | NUR ---
NURSE NOTES: Patient repositioned, vent settings are the same. No change in condition. No acute distress noted. Patient is currently on the nurse monitoring sinus rhythm. Bilateral arms are elevated with pillows, bilateral legs are elevated with pillows. Patient is currently being dialyzed. Will continue to monitor patient and follow plan of care.
--- NOTE | 2018-08-12 18:47 | NUR ---
RESPIRATORY NOTE: Received pt on AC 8, 450VT, 30%, PEEP +5. Pt intubated w/ ETT 7.5 @ 22cm lipline, secured by anchorfast. Pt alert/awake, follows commands. Both hands on soft-restraints to prevent pt from self-extubation. B/S geni. rhonchi/diminished. SXN minimal amounts of thick/thin, clear/white secretions. Vent plugged into red outlet, ambubag at bedside. Pt resting comfortably, in no apparent distress at this time. Will continue to monitor pt.
--- NOTE | 2018-08-12 19:24 | NUR ---
HAND-OFF: Report given to BALDO COLLINS.
--- NOTE | 2018-08-12 19:30 | NUR ---
NURSE NOTES: Received pt in no acute distress. Awake, alert but non verbal. Remains orally intubated, sats 98% on .30 FiO2 with vent setting of AC [id number] peep 5. Secretions scant. Chest sounds with scattered rhonchi. Afebrile; in and out of Afib but rate well controlled. BP stable on right forearm. SHARON AVgraft with moderately strong bruit and thrill. OGT in situ, TF with Nepro continues at 30ml/h with 0 residuals. Rectal tube intact. Anuric. Wound dressings dry an intact. PICC on FLACO inatact with IV at TKO
--- NOTE | 2018-08-12 20:14 | Cardiology Progress Note ---
Assessment/Plan Assessment/Plan 1. Hypotension, possibly sepsis versus volume. 2. Paroxysmal episodes of atrial fibrillation history. 3. Bradycardia secondary to medications, amiodarone possibly. 4. Diabetes mellitus. 5. End-stage renal disease, on hemodialysis. 6. Lung collapse. 7. Respiratory failure, status post intubation. 8. Dysphagia. 9. History of dementia. 10. Pulm htn 11. Pleural effusion 12. cardaic arrest 13. chest wall pain post cpr in and out afib amido now 200 bid on hold stool ob neg x2 amiod bid off labetolol for now if need hydralaize to be used vent supprot wean as tolerted may need trachand peg tele review ed agian interitttent tachy Subjective ROS Limited/Unobtainable: Yes Subjective on the vent not verba Objective Last 24 Hour Vital Signs Date Time Temp Pulse Resp B/P (MAP) Pulse Ox O2 Delivery O2 Flow Rate FiO2 08/12/18 18:45 117 15 30 08/12/18 18:00 98.6 83 17 107/47 (67) 100 08/12/18 17:05 84 18 30 08/12/18 17:00 90 17 118/49 (72) 100 08/12/18 16:00 30 08/12/18 16:00 77 08/12/18 16:00 83 17 120/42 (68) 99 08/12/18 16:00 Mechanical Ventilator Mechanical Ventilator Mechanical Ventilator 08/12/18 14:50 89 17 30 08/12/18 14:10 74 17 133/46 (75) 99 08/12/18 13:00 73 18 115/34 (61) 99 08/12/18 12:50 72 15 30 08/12/18 12:00 76 08/12/18 12:00 Mechanical Ventilator Mechanical Ventilator Mechanical Ventilator 08/12/18 12:00 75 18 124/37 (66) 99 08/12/18 12:00 30 08/12/18 11:00 74 18 109/32 (57) 99 08/12/18 10:49 75 19 30 08/12/18 10:00 78 18 104/34 (57) 99 08/12/18 09:00 107 14 92/33 (52) 100 08/12/18 08:37 100 08/12/18 08:36 107 18 30 08/12/18 08:35 74 30 40 08/12/18 08:19 125/43 08/12/18 08:00 74 08/12/18 08:00 Mechanical Ventilator Mechanical Ventilator Mechanical Ventilator 08/12/18 08:00 98.3 72 18 125/43 (70) 100 08/12/18 08:00 45 08/12/18 07:00 72 14 125/43 (70) 100 08/12/18 06:58 72 14 45 08/12/18 06:00 76 17 110/33 (58) 93 08/12/18 05:07 74 15 30 08/12/18 05:00 73 16 117/39 (65) 96 08/12/18 04:00 98.7 74 14 107/24 (51) 93 08/12/18 04:00 30 08/12/18 04:00 Mechanical Ventilator Mechanical Ventilator Mechanical Ventilator 08/12/18 04:00 74 08/12/18 03:00 75 15 106/28 (54) 99 08/12/18 02:57 75 15 30 08/12/18 02:00 74 15 108/26 (53) 94 08/12/18 01:00 75 16 30 08/12/18 01:00 77 16 101/28 (52) 95 08/12/18 00:00 30 08/12/18 00:00 98.9 79 17 113/30 (57) 97 08/12/18 00:00 79 08/12/18 00:00 Mechanical Ventilator Mechanical Ventilator Mechanical Ventilator 08/11/18 23:11 72 13 30 08/11/18 23:00 74 14 107/25 (52) 99 08/11/18 22:00 76 16 109/23 (51) 99 08/11/18 21:00 75 14 104/29 (54) 100 08/11/18 20:51 75 12 30 08/11/18 20:42 95/28 General Appearance: no apparent distress, on vent, patient on isolation Intake and Output 08/11/18 08/12/18 19:00 07:00 Intake Total 430 ml 530 ml Output Total 0 ml 0 ml Balance 430 ml 530 ml Free Water 70 ml 110 ml IV Total 60 ml Tube Feeding 360 ml 360 ml Output Urine Total 0 ml 0 ml Stool Total 0 ml Laboratory Tests Test 08/12/18 08:05 Arterial Blood pH 7.539 (7.350-7.450) Arterial Blood Partial Pressure CO2 33.5 mmHg (35.0-45.0) L Arterial Blood Partial Pressure O2 121.6 mmHg (75.0-100.0) H Arterial Blood HCO3 27.9 mmol/L (22.0-26.0) H Arterial Blood Oxygen Saturation 98.2 % (95-100) Arterial Blood Base Excess 5.3 (-2-2) H Silverio Test N/a Microbiology Date/Time Source Procedure Growth Status 08/10/18 20:00 Stool Clostridium difficile Toxin Assay - Final Complete Angelo Butler MD Aug 12, 2018 20:14
[2018-08-12] MEDS: Dyna-Hex 2% Top Sol 2oz TOPIC SCH (20:56)
[2018-08-12] MEDS: Iron Sucrose 100 MG in NS 55 ML IV SCH (20:57)
[2018-08-12] MEDS: Epogen (for ESRD on dialysis) SUBQ SCH (20:58)
--- NOTE | 2018-08-12 22:00 | NUR ---
NURSE NOTES: Awake and watches TV. No distress. Denies pain. In and out of Afib. Bilat soft wrist restraints maintained.
[2018-08-13] VITALS (24 sets, daily range): BP systolic 85–143; BP diastolic 10–73
--- NOTE | 2018-08-13 | NUR ---
NURSE NOTES: Afebrile. NSR,No distress, VSS
--- NOTE | 2018-08-13 02:00 | NUR ---
NURSE NOTES: remains awake alert but impulsive. Bilat soft wrist retraints maintained. VSS. No distress.
--- NOTE | 2018-08-13 04:00 | NUR ---
NURSE NOTES: Wound dressings changed. PICC line dressing changed. Complete bed bath, oral care and suctioning done. Afebrile; VSS. NSR.
[2018-08-13] MEDS: Heparin 5000 units/ml inj SUBQ SCH ×2 (06:00→20:38)
--- NOTE | 2018-08-13 07:02 | NUR ---
RESPIRATORY NOTE: Patient received mechanically ventilated on PB 840 with current ordered vent settings. Patient is orally intubated with a ETT tube 7.5 with 22cm at the lip and is secured with an anchor fast. Bilateral coarse breath sounds were auscultated and small amount of thick white/yellow secretions were suctioned without incident. There is an ambu bag available at the bedside and the vent is connected to a red outlet. Vent alarms are functional and and audible. Patient appears comfortable at this time. Will continue to monitor.
--- NOTE | 2018-08-13 07:12 | NUR ---
HAND-OFF: Report given to Mily BLAND.
--- NOTE | 2018-08-13 07:30 | NUR ---
NURSE NOTES: Report received from BALDO Morgan
--- NOTE | 2018-08-13 08:01 | NUR ---
NURSE NOTES: Awake and afebrile at this time.Episode of restlessness. ETT in place 7.01/19 and AC 8-VT 450-FiO2 45% -Peep 5.Noted with large amount thin clear secretion.Patient suctioned and mouth care done. Afib on the monitor,turned and repositioned.HOB elevated at 35 degree to prevent aspiration.OGT in place running Nepro at 30cc. GT placement intact with no residual at this time.Rectal tube draining brown stool.Wound dressing intact with no drainage. FLACO picc line running TKO with no infiltration,SHARON shunt thrill and bruit present. Kept clean dry and comfortable.Will continue to monitor.
[2018-08-13] MEDS: Pantoprazole Inj IVP SCH ×2 (08:31→20:36)
[2018-08-13] MEDS: Vitamin D 1000 IU Tab GT SCH (08:31)
[2018-08-13] MEDS: Amiodarone 200mg tab NG SCH ×2 (08:32→20:36)
[2018-08-13] MEDS: Minoxidil 2.5mg tab NG SCH ×2 (08:34→20:37)
[2018-08-13] MEDS: Meropenem 500 MG in NS 55 ML IVPB SCH (08:34)
--- NOTE | 2018-08-13 09:05 | NUR ---
NURSE NOTES: Weaning started at 0905 Cpap with PS 8. Patient tolerate well at this time.Deep breathing exercise provided.
--- NOTE | 2018-08-13 10:00 | NUR ---
NURSE NOTES: Patient was seen by Dr Cabezas and heparin 5000units injection frequency changed to Q2hrs. Turned and repositioned.HOB elevated at 35 degree to prevent risk for aspiration.Kept clean dry and comfortable.
--- NOTE | 2018-08-13 10:32 | General Surgery Progress Note ---
General Surgery-Progress Note Subjective Procedure Performed left subclavian central venous catheter insertion Additional Comments still intubated. awake and wants tube out. Objective Last 24 Hour Vital Signs Date Time Temp Pulse Resp B/P (MAP) Pulse Ox O2 Delivery O2 Flow Rate FiO2 08/13/18 09:05 100 08/13/18 09:00 100 22 106/61 (76) 100 08/13/18 08:52 90 17 45 08/13/18 08:34 85/52 08/13/18 08:00 98.8 92 20 85/52 (63) 95 08/13/18 08:00 Mechanical Ventilator Mechanical Ventilator Mechanical Ventilator 08/13/18 08:00 45 08/13/18 07:00 96 19 106/35 (58) 94 08/13/18 06:55 93 19 45 08/13/18 06:00 90 25 143/23 (63) 97 08/13/18 05:20 91 18 45 08/13/18 05:00 84 18 103/52 (69) 94 08/13/18 04:00 Mechanical Ventilator Mechanical Ventilator Mechanical Ventilator 08/13/18 04:00 98.8 85 19 107/22 (50) 99 08/13/18 04:00 45 08/13/18 04:00 85 08/13/18 03:00 86 19 112/10 (44) 93 08/13/18 03:00 87 19 45 08/13/18 02:00 86 16 102/24 (50) 94 08/13/18 01:00 87 17 120/37 (64) 95 08/13/18 01:00 90 19 30 08/13/18 00:00 Mechanical Ventilator Mechanical Ventilator Mechanical Ventilator 08/13/18 00:00 98.6 89 19 119/12 (47) 95 08/13/18 00:00 30 08/13/18 00:00 88 08/12/18 23:00 87 19 123/11 (48) 98 08/12/18 23:00 90 18 30 08/12/18 22:00 87 17 130/16 (54) 99 08/12/18 21:11 87 17 30 08/12/18 21:00 87 15 98/16 (43) 98 08/12/18 20:57 93/31 08/12/18 20:00 30 08/12/18 20:00 120 19 93/31 (51) 98 08/12/18 20:00 Mechanical Ventilator Mechanical Ventilator Mechanical Ventilator 08/12/18 20:00 120 08/12/18 19:00 119 19 102/44 (63) 98 08/12/18 18:45 117 15 30 08/12/18 18:00 98.6 83 17 107/47 (67) 100 08/12/18 17:05 84 18 30 08/12/18 17:00 90 17 118/49 (72) 100 08/12/18 16:00 30 08/12/18 16:00 77 08/12/18 16:00 83 17 120/42 (68) 99 08/12/18 16:00 Mechanical Ventilator Mechanical Ventilator Mechanical Ventilator 08/12/18 14:50 89 17 30 08/12/18 14:10 74 17 133/46 (75) 99 08/12/18 13:00 73 18 115/34 (61) 99 08/12/18 12:50 72 15 30 08/12/18 12:00 76 08/12/18 12:00 Mechanical Ventilator Mechanical Ventilator Mechanical Ventilator 08/12/18 12:00 75 18 124/37 (66) 99 08/12/18 12:00 30 08/12/18 11:00 74 18 109/32 (57) 99 08/12/18 10:49 75 19 30 I&O Intake and Output 08/12/18 08/13/18 18:59 06:59 Intake Total 500 ml 450 ml Output Total 0 ml 50 ml Balance 500 ml 400 ml Free Water 30 ml IV Total 110 ml 60 ml Tube Feeding 360 ml 360 ml Other 30 ml Output Urine Total 0 ml 0 ml Stool Total 0 ml 50 ml Dressing: other Wound: other Drains: other Cardiovascular: RSR Respiratory: decreased breath sounds Abdomen: soft, non-tender, present bowel sounds Extremities: other Plan Problems: (1) Sepsis Assessment & Plan: acute decompensation hypotensive bradycardic respiratory decompensation requiring intubation and vent support - failed extubation will monitor cont current ICU care and management may need trach if unable to wean off went with history of failed extubation -weaning trail again today -will consider this week if unable to wean thank you will follow with recs (2) Hypotension (3) Bradycardia (4) Altered mental status (5) Decubital ulcer Assessment & Plan: Patient with multiple pressure injuries where have been present since admission. Full thickness pressure injury to sacrum (L)(L)2.4cm x (W)4.4cm x (D)0.9cm, undermining 12-12 with tunneling 9-10 by 11.3cm. In close proximity to sacral wound on L buttocks purple ,indurated area with small area of slough measuring (L)0.6cm x (W)0.5cm noted. Arched surgical scar noted to L buttocks at site of tunneling. Resolving pressure injury noted to R ischium (L)3cm x (W)2cm. Wound bed epithelialized with maroon discoloration without induration periwound. Closed area with white pocket and purple margins noted to distal,carmela R tibia (L)6cm x (W)2.7cm Full thickness wound noted to distal/medial RLE (L)6.2cm x (W)3.8cm .Wound noted to have 95% mixed slough /necrosis ,marginal erythema. Wound malodorous. Wound posterior R tibia (L)4.7cm x (W) 3cm ,100% necrotic with marginal erythema. Dry eschar with marginal erythema (L)0.5cm x (W)0.7cm noted to medial R heel.Non-blanchable erythema noted to medial L malleolus. Dry brown eschar noted to medial L 1st malleolus (L)1.4cm x (W)1cm. L heel and lateral aspect boggy with non-blanchable erythema. Tx.Plan: Cleanse sacral wound with Saline.Loose pack with Hydrogel impregnated packing strip (Attention to tunneled area at 9-10).Cover with Optifoam drsg Daily and prn. Reposition at least every 2hours or as tolerated. Air Fluidized mattress. Off-load heels with pillow. Appreciate Podiatry and Vascular input Plan for anigo late by Vascular Reji Nails Aug 13, 2018 10:32
--- NOTE | 2018-08-13 10:50 | NUR ---
NURSE NOTES: Patient placed back on AC mode due to Tachypnea at 32 after 40mn. Will continue to monitor
--- NOTE | 2018-08-13 12:01 | NUR ---
NURSE NOTES: Pt turned and repositioned.Kept clean and dry.Call light within easy reach.Mouth care done, continue close monitoring.
--- NOTE | 2018-08-13 12:25 | Cardiology Progress Note ---
Assessment/Plan Assessment/Plan 1. Hypotension, possibly sepsis versus volume. 2. Paroxysmal episodes of atrial fibrillation history. 3. Bradycardia secondary to medications, amiodarone possibly. 4. Diabetes mellitus. 5. End-stage renal disease, on hemodialysis. 6. Lung collapse. 7. Respiratory failure, status post intubation. 8. Dysphagia. 9. History of dementia. 10. Pulm htn 11. Pleural effusion 12. cardaic arrest 13. chest wall pain post cpr in and out afib amido now 200 bid on hold stool ob neg x2 amiod bid off labetolol for now if need hydralaize to be used vent support wean as tolerated may need trach and peg tele reviewed agian intermittent tachy but at this time is in sinus Subjective ROS Limited/Unobtainable: Yes Subjective on the vent not verba , denies cp or dizziness has sob Objective Last 24 Hour Vital Signs Date Time Temp Pulse Resp B/P (MAP) Pulse Ox O2 Delivery O2 Flow Rate FiO2 08/13/18 10:47 91 16 45 08/13/18 09:05 100 08/13/18 09:00 100 22 106/61 (76) 100 08/13/18 08:52 90 17 45 08/13/18 08:34 85/52 08/13/18 08:00 94 08/13/18 08:00 98.8 92 20 85/52 (63) 95 08/13/18 08:00 Mechanical Ventilator Mechanical Ventilator Mechanical Ventilator 08/13/18 08:00 45 08/13/18 07:00 96 19 106/35 (58) 94 08/13/18 06:55 93 19 45 08/13/18 06:00 90 25 143/23 (63) 97 08/13/18 05:20 91 18 45 08/13/18 05:00 84 18 103/52 (69) 94 08/13/18 04:00 Mechanical Ventilator Mechanical Ventilator Mechanical Ventilator 08/13/18 04:00 98.8 85 19 107/22 (50) 99 08/13/18 04:00 45 08/13/18 04:00 85 08/13/18 03:00 86 19 112/10 (44) 93 08/13/18 03:00 87 19 45 08/13/18 02:00 86 16 102/24 (50) 94 08/13/18 01:00 87 17 120/37 (64) 95 08/13/18 01:00 90 19 30 08/13/18 00:00 Mechanical Ventilator Mechanical Ventilator Mechanical Ventilator 08/13/18 00:00 98.6 89 19 119/12 (47) 95 08/13/18 00:00 30 08/13/18 00:00 88 08/12/18 23:00 87 19 123/11 (48) 98 08/12/18 23:00 90 18 30 08/12/18 22:00 87 17 130/16 (54) 99 08/12/18 21:11 87 17 30 08/12/18 21:00 87 15 98/16 (43) 98 08/12/18 20:57 93/31 08/12/18 20:00 30 08/12/18 20:00 120 19 93/31 (51) 98 08/12/18 20:00 Mechanical Ventilator Mechanical Ventilator Mechanical Ventilator 08/12/18 20:00 120 08/12/18 19:00 119 19 102/44 (63) 98 08/12/18 18:45 117 15 30 08/12/18 18:00 98.6 83 17 107/47 (67) 100 08/12/18 17:05 84 18 30 08/12/18 17:00 90 17 118/49 (72) 100 08/12/18 16:00 30 08/12/18 16:00 77 08/12/18 16:00 83 17 120/42 (68) 99 08/12/18 16:00 Mechanical Ventilator Mechanical Ventilator Mechanical Ventilator 08/12/18 14:50 89 17 30 08/12/18 14:10 74 17 133/46 (75) 99 08/12/18 13:00 73 18 115/34 (61) 99 08/12/18 12:50 72 15 30 General Appearance: no apparent distress, alert, on vent, patient on isolation Neck: supple Cardiovascular: normal rate Respiratory/Chest: lungs clear Abdomen: normal bowel sounds, non tender, soft Extremities: no swelling Intake and Output 08/12/18 08/13/18 18:59 06:59 Intake Total 500 ml 450 ml Output Total 0 ml 50 ml Balance 500 ml 400 ml Free Water 30 ml IV Total 110 ml 60 ml Tube Feeding 360 ml 360 ml Other 30 ml Output Urine Total 0 ml 0 ml Stool Total 0 ml 50 ml Microbiology Date/Time Source Procedure Growth Status 08/10/18 20:00 Stool Clostridium difficile Toxin Assay - Final Complete Angelo Butler MD Aug 13, 2018 12:25
--- NOTE | 2018-08-13 14:11 | NUR ---
CASE MANAGEMENT: REVIEW SI: CELLULITIS OF RIGHT LEG . OSTEOMYELITIS . RESP FAILURE INTUBATED . ESRD ON HD T 98.6 HR 84 RR 16 BP 85/73 SAT 95% MEC VENT FIO2 45 WBC 11.5 H/H 8.7/274.9 BUN 36 CR 3.0 IS: VENOFER IV QHS MEROPENEM IV QD AMIODARONE NG Q12HR PROCRIT SQ MWF PROTONIX IV Q12HR NGT FEEDING NEPRO @10ML/HR GOAL RATE 30ML/HR ICU STATUS DCP: PATIENT IS FROM [facility]
--- NOTE | 2018-08-13 14:13 | NUR ---
NURSE NOTES: Patient awake , no acute distress noted at this time.Turned and repositioned. HOB elevated to prevent aspiration. Will continue to monitor.
--- NOTE | 2018-08-13 16:21 | NUR ---
NURSE NOTES: Pt asleep, son at bedside, turned and repositioned.HOB elevated to prevent aspiration.Kept clean dry and intact.
--- NOTE | 2018-08-13 18:07 | NUR ---
NURSE NOTES: ADLs done, pt turned and repositioned.HOB elevated to 35 degree to prevent aspiration.No residual noted. Pictures taken.Mouth care provided.Call light within easy reach.Kept clean dry and comfortable
--- NOTE | 2018-08-13 19:00 | NUR ---
HAND-OFF: Report given to BALDO Morgan.
--- NOTE | 2018-08-13 19:26 | Pulmonolgy Critical Care Note ---
Critical Care - Asmt/Plan Assessment/Plan: Assessment/Plan IMPRESSION: 1. Hypotension. 2. Sepsis. 3. Atrial fibrillation. 4. Bradycardia. 5. Diabetes mellitus. 6. End-stage renal disease on dialysis. 7. Left lung collapse. 8. Respiratory failure. 9. Dysphagia. 10. Dementia. 11. Anemia DISCUSSION: 1. Continue medications. 2. as needed Levophed. 3. status post bronchoscopy 4. Central access 5. Use broad-spectrum antibiotics. 6. continue weaning attempts Andres Allan M.D. Subjective Interval Events: Not weaning; s/p prbc Constitutional: Reports: no symptoms HEENT: Repors: no symptoms Cardiovascular: Reports: no symptoms Gastrointestinal/Abdominal: Reports: no symptoms Genitourinary: Reports: no symptoms Allergies: Coded Allergies: No Known Allergies (Unverified , 07/25/18) Objective Vital Signs Noted General Appearance: no acute distress HEENT: normocephalic Respiratory/Chest: chest wall non-tender, lungs clear Cardiovascular: normal peripheral pulses, normal rate Abdomen: normal bowel sounds Microbiology Date/Time Source Procedure Growth Status 07/27/18 11:40 Other(Specify in comment) Gram Stain - Final Resulted 07/27/18 11:40 Other(Specify in comment) Wound Culture - Preliminary Resulted 07/27/18 11:40 Sacral Wound Gram Stain - Final Resulted 07/27/18 11:40 Sacral Wound Wound Culture - Preliminary Resulted Laboratory Tests 07/28/18 13:50: Arterial Blood pH 7.250*L, Arterial Blood Partial Pressure CO2 48.3H, Arterial Blood Partial Pressure O2 75.1, Arterial Blood HCO3 20.8L, Arterial Blood Oxygen Saturation 91.8L, Arterial Blood Base Excess -6.4L, Silverio Test Positive 07/29/18 01:45: Stool Occult Blood [Pending] 07/29/18 04:00: White Blood Count 5.2, Red Blood Count 3.87L, Hemoglobin 10.4L, Hematocrit 34.4L , Mean Corpuscular Volume 89, Mean Corpuscular Hemoglobin 27.0, Mean Corpuscular Hemoglobin Concent 30.3L, Red Cell Distribution Width 15.5H, Platelet Count 148L, Mean Platelet Volume 8.4, Neutrophils (%) (Auto) 68.0, Lymphocytes (%) (Auto) 19.0L, Monocytes (%) (Auto) 7.7, Eosinophils (%) (Auto) 4.5H, Basophils (%) (Auto) 0.9, Sodium Level 130L, Potassium Level 4.0, Chloride Level 98, Carbon Dioxide Level 23, Anion Gap 9, Blood Urea Nitrogen 32H , Creatinine 4.6H, Estimat Glomerular Filtration Rate , Glucose Level 110H, Calcium Level 8.2L, Iron Level 57, Total Bilirubin 0.4, Aspartate Amino Transf ( AST/SGOT) 9L, Alanine Aminotransferase (ALT/SGPT) 8L, Alkaline Phosphatase 141H , Total Protein 7.3, Albumin 1.9L, Globulin 5.4, Albumin/Globulin Ratio 0.4L Current Medications Medications (Trade) Dose Ordered Sig/Renetta Route PRN Reason Start Time Stop Time Status Last Admin Dose Admin Amiodarone HCl (Cordarone) 200 mg EVERY 12 HOURS ORAL 07/26/18 21:00 08/25/18 20:59 07/28/18 20:37 Chlorhexidine Gluconate (Rylie-Hex 2%) 1 applic DAILY@2000 TOPIC 07/26/18 20:00 08/25/18 19:59 07/28/18 20:01 Epoetin Paul (Procrit (for ESRD on dialysis)) 10,000 units WED-WED-WED SUBQ 07/27/18 21:00 08/26/18 20:59 07/27/18 21:16 Heparin Sodium (Porcine) (Heparin Sod 1000 units/ml 10ml) 2,000 unit ONCE PRN IV DIALYSIS 07/28/18 09:54 07/29/18 23:59 Iron Sucrose 100 mg/Sodium Chloride 60 ml @ 240 mls/hr BEDTIME IV 07/27/18 21:00 07/31/18 21:14 07/28/18 20:36 Linezolid (Zyvox) 600 mg EVERY 12 HOURS ORAL 07/27/18 21:00 08/01/18 20:59 07/28/18 20:37 Meropenem 500 mg/ Sodium Chloride 55 ml @ 110 mls/hr DAILY IVPB 07/27/18 12:00 08/01/18 11:59 07/28/18 08:45 Norepinephrine Bitartrate 4 mg/ Dextrose 250 ml @ 0 mls/hr Q24H IV 07/25/18 16:30 08/24/18 16:29 07/26/18 21:28 Pantoprazole (Protonix) 40 mg Q12HR IVP 07/25/18 21:00 08/25/18 08:59 07/28/18 20:37 Sodium Chloride 1,000 ml @ 500 mls/hr Q2H PRN IVLG sbp<90 during hd 07/28/18 09:54 07/29/18 23:59 Critical Care - Objective Last 24 Hour Vital Signs Date Time Temp Pulse Resp B/P (MAP) Pulse Ox O2 Delivery O2 Flow Rate FiO2 08/13/18 18:00 82 16 119/25 (56) 100 08/13/18 17:00 84 16 118/42 (67) 100 08/13/18 16:52 82 18 35 08/13/18 16:00 87 08/13/18 16:00 35 08/13/18 16:00 Mechanical Ventilator Mechanical Ventilator Mechanical Ventilator 08/13/18 16:00 98.8 82 14 123/41 (68) 100 08/13/18 15:00 84 16 123/41 (68) 100 08/13/18 14:34 83 11 35 08/13/18 14:00 84 16 115/32 (59) 97 08/13/18 13:00 83 17 103/70 (81) 100 08/13/18 12:45 81 12 45 08/13/18 12:00 Mechanical Ventilator Mechanical Ventilator Mechanical Ventilator 08/13/18 12:00 85 08/13/18 12:00 98.6 84 16 85/73 (77) 95 08/13/18 12:00 45 08/13/18 11:00 85 23 91/60 (70) 100 08/13/18 10:47 91 16 45 08/13/18 10:00 97 24 106/61 (76) 100 08/13/18 09:05 100 08/13/18 09:00 100 22 106/61 (76) 100 08/13/18 08:52 90 17 45 08/13/18 08:34 85/52 08/13/18 08:00 94 08/13/18 08:00 98.8 92 20 85/52 (63) 95 12/15/18 08:00 Mechanical Ventilator Mechanical Ventilator Mechanical Ventilator 08/13/18 08:00 45 08/13/18 07:00 96 19 106/35 (58) 94 08/13/18 06:55 93 19 45 08/13/18 06:00 90 25 143/23 (63) 97 08/13/18 05:20 91 18 45 08/13/18 05:00 84 18 103/52 (69) 94 08/13/18 04:00 Mechanical Ventilator Mechanical Ventilator Mechanical Ventilator 08/13/18 04:00 98.8 85 19 107/22 (50) 99 08/13/18 04:00 45 08/13/18 04:00 85 08/13/18 03:00 86 19 112/10 (44) 93 08/13/18 03:00 87 19 45 08/13/18 02:00 86 16 102/24 (50) 94 08/13/18 01:00 87 17 120/37 (64) 95 08/13/18 01:00 90 19 30 08/13/18 00:00 Mechanical Ventilator Mechanical Ventilator Mechanical Ventilator 08/13/18 00:00 98.6 89 19 119/12 (47) 95 08/13/18 00:00 30 08/13/18 00:00 88 08/12/18 23:00 87 19 123/11 (48) 98 08/12/18 23:00 90 18 30 08/12/18 22:00 87 17 130/16 (54) 99 08/12/18 21:11 87 17 30 08/12/18 21:00 87 15 98/16 (43) 98 08/12/18 20:57 93/31 08/12/18 20:00 30 08/12/18 20:00 120 19 93/31 (51) 98 08/12/18 20:00 Mechanical Ventilator Mechanical Ventilator Mechanical Ventilator 08/12/18 20:00 120 Micro: Microbiology Date/Time Source Procedure Growth Status 08/10/18 20:00 Stool Clostridium difficile Toxin Assay - Final Complete Critical Care - Subjective ROS Limited/Unobtainable: No FI02: 35 Vent Support Breath Rate: 8 Vent Support Mode: AC Vent Tidal Volume: 450 Sputum Amount: Scant PEEP: 5.0 PIP: 24 Tube Feeding Amount: 30 I&O: Intake and Output 08/12/18 08/13/18 19:00 07:00 Intake Total 500 ml 450 ml Output Total 0 ml 50 ml Balance 500 ml 400 ml Free Water 30 ml IV Total 110 ml 60 ml Tube Feeding 360 ml 360 ml Other 30 ml Output Urine Total 0 ml 0 ml Stool Total 0 ml 50 ml ET-Tube: 7.5 ET Position: 22 Negro Patel MD Aug 13, 2018 19:26
--- NOTE | 2018-08-13 19:27 | NUR ---
RESPIRATORY NOTE: Received pt. on 840 vent. Vent settings are: A/C rate of 8, Vt 450, FI02 35%, PEEP +5. No respiratory distress noted, SP02 @ 100%. Ambu bag @ bs. Vent plugged on red outlet. Will continue to monitor pt.
--- NOTE | 2018-08-13 19:30 | NUR ---
NURSE NOTES: Received pt in no acute distress. Awake, alert, opens eyes spontaneously and watches TV.Denies any pain. Remains orally intubated and appears to be tolerating current vent parameters, fiO2. 35, saturating 100%. NSR on the scope, BP stable. OGT in place and TF with Nepro continues at 30ml/h with 0 residuals. Rectal tube intact. PICC on FLACO intact with IVF at TKO. Left upper arm AV graft with moderately strong bruit and thrill. Anuric. Bilateral soft wrist restraints maintained as pt still impulsive. Wound dressings dry and intact. Will continue to monitor
[2018-08-13] MEDS: Dyna-Hex 2% Top Sol 2oz TOPIC SCH (20:35)
[2018-08-13] MEDS: Iron Sucrose 100 MG in NS 55 ML IV SCH (20:36)
--- NOTE | 2018-08-13 21:30 | Consultation ---
DATE OF CONSULTATION: 08/13/2018 GASTROENTEROLOGY CONSULTATION CHIEF COMPLAINT: I was asked to see the patient by Dr. Chase He for gastrostomy tube placement. HISTORY OF PRESENT ILLNESS: The patient is a pleasant unfortunate 78-year-old white woman, who was admitted to the hospital due to altered mental status. She eventually had to be intubated and she is on life support. She is awake, but she has failed her weaning trials, and therefore, gastrostomy and tracheostomy has been requested. I am unable to get much more information since she is intubated. Most of the information is only available from the chart. PAST MEDICAL HISTORY: History of end-stage renal disease, on dialysis, diabetes, atrial fibrillation, hypertension, anemia, dementia, gastroesophageal reflux disease, open wound to the right lower extremity, previous history of urinary tract infection, current respiratory failure. ALLERGIES: None. FAMILY HISTORY: Unavailable. SOCIAL HISTORY: The patient is a resident of a convalescent facility. It is unclear whether she has a smoking or drinking history. REVIEW OF SYSTEMS: Otherwise negative. PHYSICAL EXAMINATION: GENERAL: Pleasant, thin white woman in the ICU on the ventilator. HEENT: Normocephalic, atraumatic. The patient was intubated and also an orogastric tube was in place. NECK: Supple. CHEST: Reveals scattered rhonchi. CARDIOVASCULAR: Revealed regular rate. ABDOMEN: Soft and flat. EXTREMITIES: Revealed right-sided dressing. LABORATORY AND DIAGNOSTIC DATA: Laboratory data and imaging studies were noted. ASSESSMENT: The patient has respiratory failure and failed weaning trials. She is on a ventilator. Will require a tracheostomy tube. She will therefore be a reasonable candidate for gastrostomy tube placement for long-term enteral access. The indications, risks, alternatives, and complications will be explained to the responsible constitution party and should be agreed and this can be done early next week. In the meantime, the patient's tube feedings can be continued. She also has some degree of anemia, which is reasonably stable. This may be due to her renal failure. RECOMMENDATIONS: 1. continue current meds. 2. Continue orogastric tube feeding. 3. Elevate head of bed. 4. Discussion with family. 5. Possible gastrostomy tube next week. Thank you for asking me to participate in the care of this patient. Christine Grimaldo M.D. DR: FRANKLYN JOB#: [id number] CC: SARAH
--- NOTE | 2018-08-13 22:00 | NUR ---
NURSE NOTES: Remains awake and alert; watches TV; HOB elevated. Bilat soft wrist restraints maintained; pt still impulsive. VSS.
[2018-08-14] VITALS (24 sets, daily range): BP systolic 83–140; BP diastolic 11–60
--- NOTE | 2018-08-14 | NUR ---
NURSE NOTES: Sleeping. No distress, VSS. Tolerating TF. Rectal tube patent.
--- NOTE | 2018-08-14 02:00 | NUR ---
NURSE NOTES: Remains asleep with HOB elevated. VSS; still on NSR.
--- NOTE | 2018-08-14 04:00 | NUR ---
NURSE NOTES: Pt converted back to Afib at 120bpm. Awake but calm. BP stable. Afebrile. Completed bath. Wound dressings reinforced.
--- NOTE | 2018-08-14 06:00 | NUR ---
NURSE NOTES: Converted back to NSR. Pt awake, calm and continues to be on wrist restraints. No output from rectal tube. Tolerating TF and current vent settings.
[2018-08-14 06:25] LABS: BASOPHILS % (AUTO) 0.8 % (0.0-2.0); EOSINOPHILS % (AUTO) 1.7 % (0.0-3.0); HEMOGLOBIN 9.5 G/DL (12.0-16.0); LYMPHOCYTES % (AUTO) 8.5 % (20.0-45.0); MEAN CORPUSCULAR VOLUME 91 FL (80-99); MONOCYTES % (AUTO) 11.9 % (1.0-10.0); PLATELET COUNT 325 K/UL (150-450); RED CELL DISTRIBUTION WIDTH 18.8 % (11.6-14.8); WHITE BLOOD COUNT 7.7 K/UL (4.8-10.8)
[2018-08-14 06:27] LABS: ANION GAP 9 mmol/L (5-15); BLOOD UREA NITROGEN 36 mg/dL (7-18); CALCIUM 8.7 MG/DL (8.5-10.1); CARBON DIOXIDE 32 MMOL/L (21-32); CHLORIDE 101 MMOL/L (98-107); CREATININE 2.9 MG/DL (0.55-1.30); POTASSIUM 3.2 MMOL/L (3.5-5.1); SODIUM 142 MMOL/L (136-145)
--- NOTE | 2018-08-14 06:49 | NUR ---
RESPIRATORY NOTE: Patient received mechanically ventilated with PB 840 and current ordered vent settings. Patient is orally intubated with an ETT tube seize 7.5 with 22 cm at the lip and is secured with an anchor fast. There is is no skin breakdown or redness noted around the placement of the anchor fast. Patient presents with diminished breath sounds upon auscultation and symmetrical chest rise. Small amount of pale yellow secretions were suctioned without incident. Vent is connected to a red outlet and there is an ambu bag available at the bedside. Vent alarms are functional and audible. Patient appears comfortable at this time. Will continue to monitor.
--- NOTE | 2018-08-14 07:13 | NUR ---
HAND-OFF: Report given to Mily BLAND.
--- NOTE | 2018-08-14 08:10 | NUR ---
NURSE NOTES: Patient received from BALDO Morgan.Afebrile at this time and remains on ETT in place 7.01/19 and AC 8-VT 450-FiO2 35% -Peep 5.Still noted with moderate amount thin clear secretion.Patient suctioned and mouth care done. SR on the monitor,turned and repositioned.HOB elevated at 35 degree to prevent aspiration.OGT in place running Nepro at 30cc. GT placement intact with no residual at this time.Rectal tube draining brown stool.Wound dressing intact with no drainage. FLACO middline running TKO with no infiltration,SHARON shunt thrill and bruit present. Kept clean dry and comfortable.Will continue to monitor.
[2018-08-14] MEDS: Amiodarone 200mg tab NG SCH ×2 (08:28→21:13)
[2018-08-14] MEDS: Pantoprazole Inj IVP SCH ×2 (08:28→21:12)
[2018-08-14] MEDS: Vitamin D 1000 IU Tab GT SCH (08:28)
[2018-08-14] MEDS: Minoxidil 2.5mg tab NG SCH ×2 (08:31→21:13)
[2018-08-14] MEDS: Heparin 5000 units/ml inj SUBQ SCH ×2 (08:35→21:00)
--- NOTE | 2018-08-14 08:35 | NUR ---
NURSE NOTES: Patient placed on CPAP of 8, deep breathing exercises teaching provided.Tolerate well at this time
[2018-08-14] MEDS: Meropenem 500 MG in NS 55 ML IVPB SCH (08:45)
--- NOTE | 2018-08-14 09:24 | Infectious Diseases Prog Note ---
Assessment/Plan Assessment/Plan A: Sepsis UTI Cellulitis of R leg, osteomyelitis Hypercapnic respiratory failure ESRD on HD DM Anemia Dementia PVD R pleural effusion Mucous plug s/o Cardiac arrest P; Continue Meropenem Subjective ROS Limited/Unobtainable: Yes Neurologic: Reports: confusion, other - on restraint Musculoskeletal: Reports: pain Allergies: Coded Allergies: No Known Allergies (Unverified , 07/25/18) Objective Vital Signs Last 24 Hour Vital Signs Date Time Temp Pulse Resp B/P (MAP) Pulse Ox O2 Delivery O2 Flow Rate FiO2 08/14/18 09:02 98 08/14/18 08:31 83/32 08/14/18 08:31 85 16 35 08/14/18 08:00 97.8 83 19 83/32 (49) 99 08/14/18 08:00 35 08/14/18 08:00 Mechanical Ventilator Mechanical Ventilator Mechanical Ventilator 08/14/18 07:00 82 19 107/11 (43) 99 08/14/18 06:42 81 16 35 08/14/18 06:00 90 19 114/13 (46) 100 08/14/18 05:23 106 14 35 08/14/18 05:00 120 17 110/15 (46) 100 08/14/18 04:00 120 08/14/18 04:00 Mechanical Ventilator Mechanical Ventilator Mechanical Ventilator 08/14/18 04:00 98.0 120 19 125/38 (67) 100 08/14/18 04:00 35 08/14/18 03:38 91 15 35 08/14/18 03:00 84 16 109/48 (68) 100 08/14/18 02:00 87 16 133/38 (69) 100 08/14/18 01:02 84 19 35 08/14/18 01:00 84 14 132/43 (72) 100 08/14/18 00:00 35 08/14/18 00:00 97.9 85 16 124/31 (62) 100 08/14/18 00:00 85 08/14/18 00:00 Mechanical Ventilator Mechanical Ventilator Mechanical Ventilator 08/13/18 23:08 82 15 35 08/13/18 23:00 83 15 129/37 (67) 100 08/13/18 22:00 86 15 133/40 (71) 100 08/13/18 21:16 71 14 35 08/13/18 21:00 85 16 126/36 (66) 100 08/13/18 20:37 133/41 08/13/18 20:00 Mechanical Ventilator Mechanical Ventilator Mechanical Ventilator 08/13/18 20:00 84 08/13/18 20:00 35 08/13/18 20:00 98.6 84 16 139/41 (73) 100 08/13/18 19:29 76 13 35 08/13/18 19:00 82 16 118/33 (61) 100 08/13/18 18:00 82 16 119/25 (56) 100 08/13/18 17:00 84 16 118/42 (67) 100 08/13/18 16:52 82 18 35 08/13/18 16:00 87 08/13/18 16:00 35 08/13/18 16:00 Mechanical Ventilator Mechanical Ventilator Mechanical Ventilator 08/13/18 16:00 98.8 82 14 123/41 (68) 100 08/13/18 15:00 84 16 123/41 (68) 100 08/13/18 14:34 83 11 35 08/13/18 14:00 84 16 115/32 (59) 97 08/13/18 13:00 83 17 103/70 (81) 100 08/13/18 12:45 81 12 45 08/13/18 12:00 Mechanical Ventilator Mechanical Ventilator Mechanical Ventilator 08/13/18 12:00 85 08/13/18 12:00 98.6 84 16 85/73 (77) 95 08/13/18 12:00 45 08/13/18 11:00 85 23 91/60 (70) 100 08/13/18 10:47 91 16 45 08/13/18 10:00 97 24 106/61 (76) 100 Height (Feet): 5 Height (Inches): 2.00 Weight (Pounds): 133 HEENT: mucous membranes moist Respiratory/Chest: lungs clear, other - orally intubated on ventilator Cardiovascular: normal rate, other - R arm PICC line Abdomen: soft, non tender Extremities: no edema Skin: ulcers Neurologic/Psychiatric: alert, responsive Laboratory Tests Test 08/14/18 05:00 White Blood Count 7.7 K/UL (4.8-10.8) Red Blood Count 3.40 M/UL (4.20-5.40) L Hemoglobin 9.5 G/DL (12.0-16.0) L Hematocrit 31.0 % (37.0-47.0) L Mean Corpuscular Volume 91 FL (80-99) Mean Corpuscular Hemoglobin 28.0 PG (27.0-31.0) Mean Corpuscular Hemoglobin Concent 30.7 G/DL (32.0-36.0) L Red Cell Distribution Width 18.8 % (11.6-14.8) H Platelet Count 325 K/UL (150-450) Mean Platelet Volume 7.2 FL (6.5-10.1) Neutrophils (%) (Auto) 77.0 % (45.0-75.0) H Lymphocytes (%) (Auto) 8.5 % (20.0-45.0) L Monocytes (%) (Auto) 11.9 % (1.0-10.0) H Eosinophils (%) (Auto) 1.7 % (0.0-3.0) Basophils (%) (Auto) 0.8 % (0.0-2.0) Sodium Level 142 MMOL/L (136-145) Potassium Level 3.2 MMOL/L (3.5-5.1) L Chloride Level 101 MMOL/L (98-107) Carbon Dioxide Level 32 MMOL/L (21-32) Anion Gap 9 mmol/L (5-15) Blood Urea Nitrogen 36 mg/dL (7-18) H Creatinine 2.9 MG/DL (0.55-1.30) H Estimat Glomerular Filtration Rate mL/min (>60) Glucose Level 128 MG/DL (74-106) H Calcium Level 8.7 MG/DL (8.5-10.1) Current Medications Medications (Trade) Dose Ordered Sig/Renetta Route PRN Reason Start Time Stop Time Status Last Admin Dose Admin Acetaminophen (Tylenol) 650 mg Q6H PRN ORAL Mild Pain/Temp > 100.5 08/02/18 14:15 09/01/18 14:14 08/10/18 13:15 Amiodarone HCl (Cordarone) 200 mg EVERY 12 HOURS NG 08/06/18 21:00 09/03/18 13:59 08/14/18 08:28 Chlorhexidine Gluconate (Rylie-Hex 2%) 1 applic DAILY@1999 TOPIC 07/26/18 20:00 08/25/18 19:59 08/13/18 20:35 Collagenase (Santyl) 1 applic Q12HR TOPIC 08/10/18 21:00 09/03/18 20:59 08/14/18 08:35 Epoetin Paul (Procrit (for ESRD on dialysis)) 10,000 units WED-WED-WED SUBQ 07/27/18 21:00 08/26/18 20:59 08/12/18 20:58 Heparin Sodium (Porcine) (Heparin 5000 units/ml) 5,000 units EVERY 12 HOURS SUBQ 08/13/18 21:00 09/04/18 21:59 08/14/18 08:35 Hydralazine HCl (Apresoline) 10 mg Q4H PRN IV sbp greater than 145 08/08/18 20:30 09/07/18 20:29 Iron Sucrose 100 mg/Sodium Chloride 60 ml @ 240 mls/hr BEDTIME IV 08/11/18 21:00 08/15/18 21:14 08/13/18 20:36 Meropenem 500 mg/ Sodium Chloride 55 ml @ 110 mls/hr DAILY IVPB 08/09/18 09:00 08/23/18 08:59 08/14/18 08:45 Minoxidil (Loniten) 5 mg Q12HR NG 07/31/18 21:00 08/30/18 20:59 08/13/18 20:37 Pantoprazole (Protonix) 40 mg Q12HR IVP 07/25/18 21:00 08/25/18 08:59 08/14/18 08:28 Vitamin D (Vitamin D) 1,000 intlu DAILY GT 08/07/18 10:00 09/06/18 09:59 08/14/18 08:28 Freedom Randolph MD Aug 14, 2018 09:24
[2018-08-14 09:55] LABS: INR 0.9 (0.9-1.1)
--- NOTE | 2018-08-14 10:25 | NUR ---
NURSE NOTES: Patient turned and repositioned.Still on Cpap of 8 and tolerate well.Deep breathing exercise teaching provided.HOB elevated to prevent aspiration.Call light within easy reach.Will continue to monitor.
--- NOTE | 2018-08-14 12:01 | NUR ---
NURSE NOTES: Mouth care done, turned and repositioned. Kept clean and dry.Still on Cpap of 8 and still tolerating well. Keep on close monitoring
--- NOTE | 2018-08-14 12:46 | Nephrology Progress Note ---
Assessment/Plan Assessment Seee below Plan MOF stable. Sepsis due to infected diabetic ulcers. On IV Abx. Followed by ID, Vasc. Sx, Podiatry. ESRD HD q MWF Anemia of CKD , DRARYN high dose. Transfuse PRN. A. 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 with LAE. LVEF 65% . Anticoagulate when stable. DW Dr. Butler. In and out A. Fib. Unweanable, may need Trac+PEG. See orders. Subjective Subjective On Vent. Alert. Objective Objective Last 24 Hour Vital Signs Date Time Temp Pulse Resp B/P (MAP) Pulse Ox O2 Delivery O2 Flow Rate FiO2 08/14/18 11:00 93 20 134/56 (82) 99 08/14/18 10:36 94 25 35 08/14/18 10:00 91 20 117/21 (53) 99 08/14/18 09:02 98 08/14/18 09:00 93 20 120/52 (74) 100 08/14/18 08:31 83/32 08/14/18 08:31 85 16 35 08/14/18 08:00 97.8 83 19 83/32 (49) 99 08/14/18 08:00 35 08/14/18 08:00 Mechanical Ventilator Mechanical Ventilator Mechanical Ventilator 08/14/18 08:00 87 08/14/18 07:00 82 19 107/11 (43) 99 08/14/18 06:42 81 16 35 08/14/18 06:00 90 19 114/13 (46) 100 08/14/18 05:23 106 14 35 08/14/18 05:00 120 17 110/15 (46) 100 08/14/18 04:00 120 08/14/18 04:00 Mechanical Ventilator Mechanical Ventilator Mechanical Ventilator 08/14/18 04:00 98.0 120 19 125/38 (67) 100 08/14/18 04:00 35 08/14/18 03:38 91 15 35 08/14/18 03:00 84 16 109/48 (68) 100 08/14/18 02:00 87 16 133/38 (69) 100 08/14/18 01:02 84 19 35 08/14/18 01:00 84 14 132/43 (72) 100 08/14/18 00:00 35 08/14/18 00:00 97.9 85 16 124/31 (62) 100 08/14/18 00:00 85 08/14/18 00:00 Mechanical Ventilator Mechanical Ventilator Mechanical Ventilator 08/13/18 23:08 82 15 35 08/13/18 23:00 83 15 129/37 (67) 100 08/13/18 22:00 86 15 133/40 (71) 100 08/13/18 21:16 71 14 35 08/13/18 21:00 85 16 126/36 (66) 100 08/13/18 20:37 133/41 08/13/18 20:00 Mechanical Ventilator Mechanical Ventilator Mechanical Ventilator 08/13/18 20:00 84 08/13/18 20:00 35 08/13/18 20:00 98.6 84 16 139/41 (73) 100 08/13/18 19:29 76 13 35 08/13/18 19:00 82 16 118/33 (61) 100 08/13/18 18:00 82 16 119/25 (56) 100 08/13/18 17:00 84 16 118/42 (67) 100 08/13/18 16:52 82 18 35 08/13/18 16:00 87 08/13/18 16:00 35 08/13/18 16:00 Mechanical Ventilator Mechanical Ventilator Mechanical Ventilator 08/13/18 16:00 98.8 82 14 123/41 (68) 100 08/13/18 15:00 84 16 123/41 (68) 100 08/13/18 14:34 83 11 35 08/13/18 14:00 84 16 115/32 (59) 97 08/13/18 13:00 83 17 103/70 (81) 100 Intake and Output 08/13/18 08/14/18 18:59 06:59 Intake Total 415 ml 450 ml Output Total 50 ml 0 ml Balance 365 ml 450 ml IV Total 55 ml 60 ml Tube Feeding 360 ml 360 ml Other 30 ml Stool Total 50 ml 0 ml Laboratory Tests 08/14/18 05:00: White Blood Count 7.7, Red Blood Count 3.40L, Hemoglobin 9.5L, Hematocrit 31.0L , Mean Corpuscular Volume 91, Mean Corpuscular Hemoglobin 28.0, Mean Corpuscular Hemoglobin Concent 30.7L, Red Cell Distribution Width 18.8H, Platelet Count 325, Mean Platelet Volume 7.2, Neutrophils (%) (Auto) 77.0H, Lymphocytes (%) (Auto) 8.5L, Monocytes (%) (Auto) 11.9H, Eosinophils (%) (Auto) 1.7, Basophils (%) (Auto) 0.8, Sodium Level 142, Potassium Level 3.2L, Chloride Level 101, Carbon Dioxide Level 32, Anion Gap 9, Blood Urea Nitrogen 36H, Creatinine 2.9H, Estimat Glomerular Filtration Rate , Glucose Level 128H, Calcium Level 8.7 08/14/18 09:15: Prothrombin Time 10.0, Prothromb Time International Ratio 0.9, Activated Partial Thromboplast Time 37H 08/14/18 09:40: Arterial Blood pH 7.450, Arterial Blood Partial Pressure CO2 47.6H, Arterial Blood Partial Pressure O2 128.3H, Arterial Blood HCO3 32.9H, Arterial Blood Oxygen Saturation 98.1, Arterial Blood Base Excess 8.0H, Silverio Test Positive Height (Feet): 5 Height (Inches): 2.00 Weight (Pounds): 133 Objective Intubate + on vent. Cv IRR/IRR Lungs B ronchi. Abd SNT. BS + E Rt. foot diabetic ulcers Chase He MD Aug 14, 2018 12:46
[2018-08-14] MEDS ORDERED: Heparin Sod 1000 units/ml 10ml IV PRN (12:51)
--- NOTE | 2018-08-14 13:06 | NUR ---
NURSE NOTES: Seen by Dr Cabezas will follow up with new orders
--- NOTE | 2018-08-14 13:39 | Cardiology Progress Note ---
Assessment/Plan Assessment/Plan 1. Hypotension, possibly sepsis versus volume. 2. Paroxysmal episodes of atrial fibrillation history. 3. Bradycardia secondary to medications, amiodarone possibly. 4. Diabetes mellitus. 5. End-stage renal disease, on hemodialysis. 6. Lung collapse. 7. Respiratory failure, status post intubation. 8. Dysphagia. 9. History of dementia. 10. Pulm htn 11. Pleural effusion 12. cardaic arrest 13. chest wall pain post cpr in and out afib amido now 200 bid on hold stool ob neg x2 amiod bid off labetolol for now if need hydralaize to be used vent support wean as tolerated may need trach and peg tele reviewed agian intermittent tachy but at this time is in sinus d/w son aline pineda dominick Subjective Cardiovascular: Reports: chest pain Respiratory: Reports: shortness of breath Genitourinary: Denies: burning Subjective on the vent not verba , denies cp or dizziness has sob Objective Last 24 Hour Vital Signs Date Time Temp Pulse Resp B/P (MAP) Pulse Ox O2 Delivery O2 Flow Rate FiO2 08/14/18 13:00 73 20 105/60 (75) 99 08/14/18 12:53 79 18 35 08/14/18 12:00 98.6 80 19 112/60 (77) 99 08/14/18 12:00 35 08/14/18 12:00 Mechanical Ventilator Mechanical Ventilator Mechanical Ventilator 08/14/18 11:00 93 20 134/56 (82) 99 08/14/18 10:36 94 25 35 08/14/18 10:00 91 20 117/21 (53) 99 08/14/18 09:02 98 08/14/18 09:00 93 20 120/52 (74) 100 08/14/18 08:31 83/32 08/14/18 08:31 85 16 35 08/14/18 08:00 97.8 83 19 83/32 (49) 99 08/14/18 08:00 35 08/14/18 08:00 Mechanical Ventilator Mechanical Ventilator Mechanical Ventilator 08/14/18 08:00 87 08/14/18 07:00 82 19 107/11 (43) 99 08/14/18 06:42 81 16 35 08/14/18 06:00 90 19 114/13 (46) 100 08/14/18 05:23 106 14 35 08/14/18 05:00 120 17 110/15 (46) 100 08/14/18 04:00 120 08/14/18 04:00 Mechanical Ventilator Mechanical Ventilator Mechanical Ventilator 08/14/18 04:00 98.0 120 19 125/38 (67) 100 08/14/18 04:00 35 08/14/18 03:38 91 15 35 08/14/18 03:00 84 16 109/48 (68) 100 08/14/18 02:00 87 16 133/38 (69) 100 08/14/18 01:02 84 19 35 08/14/18 01:00 84 14 132/43 (72) 100 08/14/18 00:00 35 08/14/18 00:00 97.9 85 16 124/31 (62) 100 08/14/18 00:00 85 08/14/18 00:00 Mechanical Ventilator Mechanical Ventilator Mechanical Ventilator 08/13/18 23:08 82 15 35 08/13/18 23:00 83 15 129/37 (67) 100 08/13/18 22:00 86 15 133/40 (71) 100 08/13/18 21:16 71 14 35 08/13/18 21:00 85 16 126/36 (66) 100 08/13/18 20:37 133/41 08/13/18 20:00 Mechanical Ventilator Mechanical Ventilator Mechanical Ventilator 08/13/18 20:00 84 08/13/18 20:00 35 08/13/18 20:00 98.6 84 16 139/41 (73) 100 08/13/18 19:29 76 13 35 08/13/18 19:00 82 16 118/33 (61) 100 08/13/18 18:00 82 16 119/25 (56) 100 08/13/18 17:00 84 16 118/42 (67) 100 08/13/18 16:52 82 18 35 08/13/18 16:00 87 08/13/18 16:00 35 08/13/18 16:00 Mechanical Ventilator Mechanical Ventilator Mechanical Ventilator 08/13/18 16:00 98.8 82 14 123/41 (68) 100 08/13/18 15:00 84 16 123/41 (68) 100 08/13/18 14:34 83 11 35 08/13/18 14:00 84 16 115/32 (59) 97 General Appearance: no apparent distress, on vent, patient on isolation Neck: supple Cardiovascular: normal rate Respiratory/Chest: lungs clear, normal breath sounds Abdomen: normal bowel sounds, non tender, soft Extremities: no swelling Intake and Output 08/13/18 08/14/18 18:59 06:59 Intake Total 415 ml 450 ml Output Total 50 ml 0 ml Balance 365 ml 450 ml IV Total 55 ml 60 ml Tube Feeding 360 ml 360 ml Other 30 ml Stool Total 50 ml 0 ml Laboratory Tests Test 08/14/18 05:00 08/14/18 09:15 08/14/18 09:40 White Blood Count 7.7 K/UL (4.8-10.8) Red Blood Count 3.40 M/UL (4.20-5.40) L Hemoglobin 9.5 G/DL (12.0-16.0) L Hematocrit 31.0 % (37.0-47.0) L Mean Corpuscular Volume 91 FL (80-99) Mean Corpuscular Hemoglobin 28.0 PG (27.0-31.0) Mean Corpuscular Hemoglobin Concent 30.7 G/DL (32.0-36.0) L Red Cell Distribution Width 18.8 % (11.6-14.8) H Platelet Count 325 K/UL (150-450) Mean Platelet Volume 7.2 FL (6.5-10.1) Neutrophils (%) (Auto) 77.0 % (45.0-75.0) H Lymphocytes (%) (Auto) 8.5 % (20.0-45.0) L Monocytes (%) (Auto) 11.9 % (1.0-10.0) H Eosinophils (%) (Auto) 1.7 % (0.0-3.0) Basophils (%) (Auto) 0.8 % (0.0-2.0) Sodium Level 142 MMOL/L (136-145) Potassium Level 3.2 MMOL/L (3.5-5.1) L Chloride Level 101 MMOL/L (98-107) Carbon Dioxide Level 32 MMOL/L (21-32) Anion Gap 9 mmol/L (5-15) Blood Urea Nitrogen 36 mg/dL (7-18) H Creatinine 2.9 MG/DL (0.55-1.30) H Estimat Glomerular Filtration Rate mL/min (>60) Glucose Level 128 MG/DL (74-106) H Calcium Level 8.7 MG/DL (8.5-10.1) Prothrombin Time 10.0 SEC (9.30-11.50) Prothromb Time International Ratio 0.9 (0.9-1.1) Activated Partial Thromboplast Time 37 SEC (23-33) H Arterial Blood pH 7.450 (7.350-7.450) Arterial Blood Partial Pressure CO2 47.6 mmHg (35.0-45.0) H Arterial Blood Partial Pressure O2 128.3 mmHg (75.0-100.0) H Arterial Blood HCO3 32.9 mmol/L (22.0-26.0) H Arterial Blood Oxygen Saturation 98.1 % (95-100) Arterial Blood Base Excess 8.0 (-2-2) H Silverio Test Positive Angelo Butler MD Aug 14, 2018 13:39
--- NOTE | 2018-08-14 14:05 | NUR ---
NURSE NOTES: Patient turned and repositioned.HOB elevated at 35 degree to prevent aspiration.Will continue to monitor.Was seen by Dr Benitez, possible trach tomorrow.Will follow up with new orders.Remains on Cpap of 8 with no apparent distress.Kept on close monitoring.
--- NOTE | 2018-08-14 15:14 | General Progress Note ---
Assessment/Plan Assessment/Plan Assessment - Dysphagia - Resp failure - ESRD - Anemia Recommendations - continue TF - GT care - eventual PEG/Trach Subjective Allergies: Coded Allergies: No Known Allergies (Unverified , 07/25/18) Subjective Above noted on vent, tolerating TF d/w senior staff psychologist Objective Last 24 Hour Vital Signs Date Time Temp Pulse Resp B/P (MAP) Pulse Ox O2 Delivery O2 Flow Rate FiO2 08/14/18 14:00 74 17 113/21 (51) 100 08/14/18 13:00 73 20 105/60 (75) 99 08/14/18 12:53 79 18 35 08/14/18 12:00 98.6 80 19 112/60 (77) 99 08/14/18 12:00 35 08/14/18 12:00 Mechanical Ventilator Mechanical Ventilator Mechanical Ventilator 08/14/18 11:00 93 20 134/56 (82) 99 08/14/18 10:36 94 25 35 08/14/18 10:00 91 20 117/21 (53) 99 08/14/18 09:02 98 08/14/18 09:00 93 20 120/52 (74) 100 08/14/18 08:31 83/32 08/14/18 08:31 85 16 35 08/14/18 08:00 97.8 83 19 83/32 (49) 99 08/14/18 08:00 35 08/14/18 08:00 Mechanical Ventilator Mechanical Ventilator Mechanical Ventilator 08/14/18 08:00 87 08/14/18 07:00 82 19 107/11 (43) 99 08/14/18 06:42 81 16 35 08/14/18 06:00 90 19 114/13 (46) 100 08/14/18 05:23 106 14 35 08/14/18 05:00 120 17 110/15 (46) 100 08/14/18 04:00 120 08/14/18 04:00 Mechanical Ventilator Mechanical Ventilator Mechanical Ventilator 08/14/18 04:00 98.0 120 19 125/38 (67) 100 08/14/18 04:00 35 08/14/18 03:38 91 15 35 08/14/18 03:00 84 16 109/48 (68) 100 08/14/18 02:00 87 16 133/38 (69) 100 08/14/18 01:02 84 19 35 08/14/18 01:00 84 14 132/43 (72) 100 08/14/18 00:00 35 08/14/18 00:00 97.9 85 16 124/31 (62) 100 08/14/18 00:00 85 08/14/18 00:00 Mechanical Ventilator Mechanical Ventilator Mechanical Ventilator 08/13/18 23:08 82 15 35 08/13/18 23:00 83 15 129/37 (67) 100 08/13/18 22:00 86 15 133/40 (71) 100 08/13/18 21:16 71 14 35 08/13/18 21:00 85 16 126/36 (66) 100 08/13/18 20:37 133/41 08/13/18 20:00 Mechanical Ventilator Mechanical Ventilator Mechanical Ventilator 08/13/18 20:00 84 08/13/18 20:00 35 08/13/18 20:00 98.6 84 16 139/41 (73) 100 08/13/18 19:29 76 13 35 08/13/18 19:00 82 16 118/33 (61) 100 08/13/18 18:00 82 16 119/25 (56) 100 08/13/18 17:00 84 16 118/42 (67) 100 08/13/18 16:52 82 18 35 08/13/18 16:00 87 08/13/18 16:00 35 08/13/18 16:00 Mechanical Ventilator Mechanical Ventilator Mechanical Ventilator 08/13/18 16:00 98.8 82 14 123/41 (68) 100 Intake and Output 08/13/18 08/14/18 18:59 06:59 Intake Total 415 ml 450 ml Output Total 50 ml 0 ml Balance 365 ml 450 ml IV Total 55 ml 60 ml Tube Feeding 360 ml 360 ml Other 30 ml Stool Total 50 ml 0 ml Laboratory Tests 08/14/18 05:00: White Blood Count 7.7, Red Blood Count 3.40L, Hemoglobin 9.5L, Hematocrit 31.0L , Mean Corpuscular Volume 91, Mean Corpuscular Hemoglobin 28.0, Mean Corpuscular Hemoglobin Concent 30.7L, Red Cell Distribution Width 18.8H, Platelet Count 325, Mean Platelet Volume 7.2, Neutrophils (%) (Auto) 77.0H, Lymphocytes (%) (Auto) 8.5L, Monocytes (%) (Auto) 11.9H, Eosinophils (%) (Auto) 1.7, Basophils (%) (Auto) 0.8, Sodium Level 142, Potassium Level 3.2L, Chloride Level 101, Carbon Dioxide Level 32, Anion Gap 9, Blood Urea Nitrogen 36H, Creatinine 2.9H, Estimat Glomerular Filtration Rate , Glucose Level 128H, Calcium Level 8.7 08/14/18 09:15: Prothrombin Time 10.0, Prothromb Time International Ratio 0.9, Activated Partial Thromboplast Time 37H 08/14/18 09:40: Arterial Blood pH 7.450, Arterial Blood Partial Pressure CO2 47.6H, Arterial Blood Partial Pressure O2 128.3H, Arterial Blood HCO3 32.9H, Arterial Blood Oxygen Saturation 98.1, Arterial Blood Base Excess 8.0H, Silverio Test Positive Height (Feet): 5 Height (Inches): 2.00 Weight (Pounds): 133 Objective Thin WW NCAT supple CTA RR Abd soft ND no edema non focal Christine Grimaldo MD Aug 14, 2018 15:14
--- NOTE | 2018-08-14 16:14 | NUR ---
NURSE NOTES: Patient turned and repositioned.Kept clean and dry. Placed back on AC mode. Seen by Dr Patel, will follow up with new orders.Adls done,mouth care performs, HOB elevated to prevent aspiration.Kept clean, dry and comfortable.Call light within easy reach.
--- NOTE | 2018-08-14 16:59 | Pre-Procedure Note/Attestation ---
Pre-Procedure Note/Attestation Complete Prior to Procedure Planned Procedure: not applicable Procedure Narrative: tracheostomy Indications for Procedure Pre-Operative Diagnosis: respiratory insufficiency requiring prolong ventilatory support Attestation I attest that I discussed the nature of the procedure; its benefits; risks and complications; and alternatives (and the risks and benefits of such alternatives ), prior to the procedure, with the patient (or the patient's legal textiles sales representative). I attest that, if there was a reasonable possibility of needing a blood transfusion, the patient (or the patient's legal textiles sales representative) was given the [facility] standardized written summary, pursuant to the [place] Blood Safety Act ([place] Health and Safety Code # 1645, as amended). I attest that I re-evaluated the patient just prior to the surgery and that there has been no change in the patient's H&P, except as documented below: Reji Nails Aug 14, 2018 16:59
--- NOTE | 2018-08-14 18:02 | NUR ---
NURSE NOTES: Patient turned and repositioned.HOB elevated to prevent aspiration.Kept clean and dry. Will continue to monitor
--- NOTE | 2018-08-14 19:15 | NUR ---
NURSE NOTES: Patient received from BALDO Tariq. VSS, Afebrile. On ETT in place 7.5 and AC 8-VT 450-FiO2 35% -Peep 5. With moderate amount thin clear secretion. Suctioned and mouth care done. SR on manager cardiac,turned and repositioned. HOB elevated at 35 degree to prevent aspiration. OGT in place running Nepro at 30cc. GT placement intact with no residual at this time. Rectal tube draining brown liquid stool. Wound dressing dry and intact. FLACO midline infusing NS at TKO with no signs of infiltration. SHARON shunt thrill and bruit present. Denies pain. No distress noted. Will continue POC.
--- NOTE | 2018-08-14 19:27 | NUR ---
HAND-OFF: Report given to BALDO Contreras.
[2018-08-14] MEDS: Dyna-Hex 2% Top Sol 2oz TOPIC SCH (21:12)
[2018-08-14] MEDS: Iron Sucrose 100 MG in NS 55 ML IV SCH (21:12)
[2018-08-14] MEDS ORDERED: NS 275ml ONE (21:41)
[2018-08-14] MEDS ORDERED: Tubing IV Secondary IV ONE (21:41)
--- NOTE | 2018-08-14 21:47 | Pulmonolgy Critical Care Note ---
Critical Care - Asmt/Plan Assessment/Plan: Assessment/Plan IMPRESSION: 1. Hypotension. 2. Sepsis. 3. Atrial fibrillation. 4. Bradycardia. 5. Diabetes mellitus. 6. End-stage renal disease on dialysis. 7. Left lung collapse. 8. Respiratory failure. 9. Dysphagia. 10. Dementia. 11. Anemia DISCUSSION: 1. Continue medications. 2. as needed Levophed. 3. status post bronchoscopy 4. Central access 5. Use broad-spectrum antibiotics. 6. continue weaning attempts Andres Allan M.D. Subjective Interval Events: Not weaning; s/p prbc Constitutional: Reports: no symptoms HEENT: Repors: no symptoms Cardiovascular: Reports: no symptoms Gastrointestinal/Abdominal: Reports: no symptoms Genitourinary: Reports: no symptoms Allergies: Coded Allergies: No Known Allergies (Unverified , 07/25/18) Objective Vital Signs Noted General Appearance: no acute distress HEENT: normocephalic Respiratory/Chest: chest wall non-tender, lungs clear Cardiovascular: normal peripheral pulses, normal rate Abdomen: normal bowel sounds Microbiology Date/Time Source Procedure Growth Status 07/27/18 11:40 Other(Specify in comment) Gram Stain - Final Resulted 07/27/18 11:40 Other(Specify in comment) Wound Culture - Preliminary Resulted 07/27/18 11:40 Sacral Wound Gram Stain - Final Resulted 07/27/18 11:40 Sacral Wound Wound Culture - Preliminary Resulted Laboratory Tests 07/28/18 13:50: Arterial Blood pH 7.250*L, Arterial Blood Partial Pressure CO2 48.3H, Arterial Blood Partial Pressure O2 75.1, Arterial Blood HCO3 20.8L, Arterial Blood Oxygen Saturation 91.8L, Arterial Blood Base Excess -6.4L, Silverio Test Positive 07/29/18 01:45: Stool Occult Blood [Pending] 07/29/18 04:00: White Blood Count 5.2, Red Blood Count 3.87L, Hemoglobin 10.4L, Hematocrit 34.4L , Mean Corpuscular Volume 89, Mean Corpuscular Hemoglobin 27.0, Mean Corpuscular Hemoglobin Concent 30.3L, Red Cell Distribution Width 15.5H, Platelet Count 148L, Mean Platelet Volume 8.4, Neutrophils (%) (Auto) 68.0, Lymphocytes (%) (Auto) 19.0L, Monocytes (%) (Auto) 7.7, Eosinophils (%) (Auto) 4.5H, Basophils (%) (Auto) 0.9, Sodium Level 130L, Potassium Level 4.0, Chloride Level 98, Carbon Dioxide Level 23, Anion Gap 9, Blood Urea Nitrogen 32H , Creatinine 4.6H, Estimat Glomerular Filtration Rate , Glucose Level 110H, Calcium Level 8.2L, Iron Level 57, Total Bilirubin 0.4, Aspartate Amino Transf ( AST/SGOT) 9L, Alanine Aminotransferase (ALT/SGPT) 8L, Alkaline Phosphatase 141H , Total Protein 7.3, Albumin 1.9L, Globulin 5.4, Albumin/Globulin Ratio 0.4L Current Medications Medications (Trade) Dose Ordered Sig/Renetta Route PRN Reason Start Time Stop Time Status Last Admin Dose Admin Amiodarone HCl (Cordarone) 200 mg EVERY 12 HOURS ORAL 07/26/18 21:00 08/25/18 20:59 07/28/18 20:37 Chlorhexidine Gluconate (Rylie-Hex 2%) 1 applic DAILY@2000 TOPIC 07/26/18 20:00 08/25/18 19:59 07/28/18 20:01 Epoetin Pual (Procrit (for ESRD on dialysis)) 10,000 units WED-WED-WED SUBQ 07/27/18 21:00 08/26/18 20:59 07/27/18 21:16 Heparin Sodium (Porcine) (Heparin Sod 1000 units/ml 10ml) 2,000 unit ONCE PRN IV DIALYSIS 07/28/18 09:54 07/29/18 23:59 Iron Sucrose 100 mg/Sodium Chloride 60 ml @ 240 mls/hr BEDTIME IV 07/27/18 21:00 07/31/18 21:14 07/28/18 20:36 Linezolid (Zyvox) 600 mg EVERY 12 HOURS ORAL 07/27/18 21:00 08/01/18 20:59 07/28/18 20:37 Meropenem 500 mg/ Sodium Chloride 55 ml @ 110 mls/hr DAILY IVPB 07/27/18 12:00 08/01/18 11:59 07/28/18 08:45 Norepinephrine Bitartrate 4 mg/ Dextrose 250 ml @ 0 mls/hr Q24H IV 07/25/18 16:30 08/24/18 16:29 07/26/18 21:28 Pantoprazole (Protonix) 40 mg Q12HR IVP 07/25/18 21:00 08/25/18 08:59 07/28/18 20:37 Sodium Chloride 1,000 ml @ 500 mls/hr Q2H PRN IVLG sbp<90 during hd 07/28/18 09:54 07/29/18 23:59 Critical Care - Objective Last 24 Hour Vital Signs Date Time Temp Pulse Resp B/P (MAP) Pulse Ox O2 Delivery O2 Flow Rate FiO2 08/14/18 21:13 135/34 08/14/18 20:00 75 08/14/18 20:00 35 08/14/18 20:00 Mechanical Ventilator Mechanical Ventilator Mechanical Ventilator 08/14/18 19:59 98.4 83 18 135/34 (67) 93 08/14/18 19:18 81 14 35 08/14/18 19:00 81 15 115/34 (61) 95 08/14/18 18:00 72 14 99/25 (49) 95 08/14/18 17:06 74 13 35 08/14/18 17:00 76 14 120/33 (62) 100 08/14/18 16:00 98.4 78 19 114/33 (60) 100 08/14/18 16:00 35 08/14/18 16:00 Mechanical Ventilator Mechanical Ventilator Mechanical Ventilator 08/14/18 16:00 78 08/14/18 15:24 113 25 35 08/14/18 15:00 77 14 140/15 (56) 100 08/14/18 14:00 74 17 113/21 (51) 100 08/14/18 13:00 73 20 105/60 (75) 99 08/14/18 12:53 79 18 35 08/14/18 12:00 98.6 80 19 112/60 (77) 99 08/14/18 12:00 35 08/14/18 12:00 Mechanical Ventilator Mechanical Ventilator Mechanical Ventilator 08/14/18 12:00 90 08/14/18 11:00 93 20 134/56 (82) 99 08/14/18 10:36 94 25 35 08/14/18 10:00 91 20 117/21 (53) 99 08/14/18 09:02 98 08/14/18 09:00 93 20 120/52 (74) 100 08/14/18 08:31 83/32 18 08:31 85 16 35 08/14/18 08:00 97.8 83 19 83/32 (49) 99 08/14/18 08:00 35 08/14/18 08:00 Mechanical Ventilator Mechanical Ventilator Mechanical Ventilator 08/14/18 08:00 87 08/14/18 07:00 82 19 107/11 (43) 99 08/14/18 06:42 81 16 35 08/14/18 06:00 90 19 114/13 (46) 100 08/14/18 05:23 106 14 35 08/14/18 05:00 120 17 110/15 (46) 100 08/14/18 04:00 120 08/14/18 04:00 Mechanical Ventilator Mechanical Ventilator Mechanical Ventilator 08/14/18 04:00 98.0 120 19 125/38 (67) 100 08/14/18 04:00 35 08/14/18 03:38 91 15 35 08/14/18 03:00 84 16 109/48 (68) 100 08/14/18 02:00 87 16 133/38 (69) 100 08/14/18 01:02 84 19 35 08/14/18 01:00 84 14 132/43 (72) 100 08/14/18 00:00 35 08/14/18 00:00 97.9 85 16 124/31 (62) 100 08/14/18 00:00 85 08/14/18 00:00 Mechanical Ventilator Mechanical Ventilator Mechanical Ventilator 08/13/18 23:08 82 15 35 08/13/18 23:00 83 15 129/37 (67) 100 08/13/18 22:00 86 15 133/40 (71) 100 Critical Care - Subjective ROS Limited/Unobtainable: Yes FI02: 35 Vent Support Breath Rate: 8 Vent Support Mode: AC Vent Tidal Volume: 450 Sputum Amount: Scant PEEP: 5.0 PIP: 24 Tube Feeding Amount: 30 I&O: Intake and Output 08/13/18 08/14/18 19:00 07:00 Intake Total 415 ml 450 ml Output Total 50 ml 0 ml Balance 365 ml 450 ml IV Total 55 ml 60 ml Tube Feeding 360 ml 360 ml Other 30 ml Stool Total 50 ml 0 ml ET-Tube: 7.5 ET Position: 21 Negro Patel MD Aug 14, 2018 21:47
[2018-08-15] VITALS (23 sets, daily range): BP systolic 98–138; BP diastolic 14–84
--- NOTE | 2018-08-15 04:00 | NUR ---
NURSE NOTES: VSS, Afebrile. ETT remain in place 7.5 and AC 8-VT 450-FiO2 35% -Peep 5. SR on patient monitor. Turned and repositioned. HOB elevated at 35 degree to prevent aspiration. OGT in place. NPO after MN. Rectal tube draining brown liquid stool. Wound dressings dry and intact. FLACO midline infusing NS at TKO with no signs of infiltration. SHARON shunt thrill and bruit present. Denies pain. In no apparent distress. Will continue POC. For tracheostomy this AM. Consent signed by son.
[2018-08-15 05:12] LABS: BASOPHILS % (AUTO) 1.6 % (0.0-2.0); EOSINOPHILS % (AUTO) 2.2 % (0.0-3.0); HEMOGLOBIN 8.5 G/DL (12.0-16.0); LYMPHOCYTES % (AUTO) 9.9 % (20.0-45.0); MEAN CORPUSCULAR VOLUME 92 FL (80-99); MONOCYTES % (AUTO) 9.5 % (1.0-10.0); NEUTROPHILS % (AUTO) 76.8 % (45.0-75.0); PLATELET COUNT 335 K/UL (150-450); RED BLOOD COUNT 3.04 M/UL (4.20-5.40); RED CELL DISTRIBUTION WIDTH 19.2 % (11.6-14.8)
[2018-08-15 05:28] LABS: ANION GAP 8 mmol/L (5-15); BLOOD UREA NITROGEN 45 mg/dL (7-18); CALCIUM 8.3 MG/DL (8.5-10.1); CARBON DIOXIDE 32 MMOL/L (21-32); CHLORIDE 102 MMOL/L (98-107); CREATININE 3.3 MG/DL (0.55-1.30); PHOSPHORUS 4.7 MG/DL (2.5-4.9); POTASSIUM 3.3 MMOL/L (3.5-5.1); SODIUM 142 MMOL/L (136-145)
--- NOTE | 2018-08-15 06:50 | NUR ---
RESPIRATORY NOTE: Received pt on ETT 7.5 @ 22cm lips line with current vent settings: [id number]% FiO2- peep of 5, saturates at 99%. Pt os tolerating the vent well, no SOB or acute resp distress. Alarms are set and audible, vent is plugged into the red outlet, ambu bag is at bedside. Will continue to monitor pt and suction as needed.
--- NOTE | 2018-08-15 07:23 | NUR ---
HAND-OFF: Report given to BALDO Silva.
--- NOTE | 2018-08-15 08:10 | NUR ---
NURSE NOTES: Patient received from BALDO Contreras. patient asleep, no apparent distress. Preparing for dialysis. NPO since midnight for tracheostomy placement.On ETT in place 7.5 and AC 8-VT 450-FiO2 35% -Peep 5.Mouth care done and suction applied, moderate amount thin clear secretion still noted.FLACO midline running TKO with no infiltration,SHARON shunt thrill and bruit present.HOB elevated at 35 degree to prevent aspiration.GT placement check and intact with no residual at this time.Rectal tube draining brown stool.Wound dressing clean dry and intact with no drainage. Kept clean dry and comfortable.Will continue to monitor.
[2018-08-15] MEDS: Pantoprazole Inj IVP SCH ×2 (08:15→21:00)
[2018-08-15] MEDS: Vitamin D 1000 IU Tab GT SCH (08:16)
[2018-08-15] MEDS: Meropenem 500 MG in NS 55 ML IVPB SCH (08:16)
[2018-08-15] MEDS: Amiodarone 200mg tab NG SCH ×2 (08:16→21:00)
[2018-08-15] MEDS: Minoxidil 2.5mg tab NG SCH ×2 (08:20→21:00)
[2018-08-15] MEDS: Heparin 5000 units/ml inj SUBQ SCH ×2 (08:21→21:02)
--- NOTE | 2018-08-15 10:05 | NUR ---
NURSE NOTES: Remains on dialysis, tolerated well at this time.will continue to monitor
--- NOTE | 2018-08-15 10:23 | Pulmonology Progress Note ---
Assessment/Plan Assessment/Plan IMPRESSION: 1. Hypotension. 2. Sepsis. 3. Atrial fibrillation. 4. Bradycardia. 5. Diabetes mellitus. 6. End-stage renal disease on dialysis. 7. Left lung collapse. Resolved 8. Respiratory failure. now reintubated 9. Dysphagia. 10. Dementia. 11. Anemia 12. Pneumonia DISCUSSION: 1. Continue medications. 2. CXR improved 3. status post bronchoscopy 4. Central access 4. For trach today Andres Allan M.D. Subjective Interval Events: None new; for trach today Constitutional: Reports: no symptoms HEENT: Repors: no symptoms Respiratory: Reports: no symptoms Cardiovascular: Reports: no symptoms Gastrointestinal/Abdominal: Reports: no symptoms Genitourinary: Reports: no symptoms Allergies: Coded Allergies: No Known Allergies (Unverified , 07/25/18) Objective Last 24 Hour Vital Signs Date Time Temp Pulse Resp B/P (MAP) Pulse Ox O2 Delivery O2 Flow Rate FiO2 08/15/18 10:00 93 18 123/14 (50) 93 08/15/18 09:00 77 18 127/38 (67) 100 08/15/18 08:51 65 14 35 08/15/18 08:20 122/23 08/15/18 08:00 98 08/15/18 08:00 98.8 68 15 122/23 (56) 100 08/15/18 08:00 Mechanical Ventilator Mechanical Ventilator Mechanical Ventilator 08/15/18 08:00 35 08/15/18 07:00 71 12 120/17 (51) 100 08/15/18 06:50 75 15 35 08/15/18 06:00 75 15 124/22 (56) 99 08/15/18 05:00 99 21 120/36 (64) 99 08/15/18 04:40 69 15 35 08/15/18 04:00 98.9 70 14 116/42 (66) 100 08/15/18 04:00 Mechanical Ventilator Mechanical Ventilator Mechanical Ventilator 08/15/18 04:00 35 08/15/18 04:00 70 08/15/18 03:00 69 14 116/31 (59) 99 08/15/18 02:48 74 13 35 08/15/18 02:00 79 16 138/35 (69) 91 08/15/18 01:19 72 22 35 08/15/18 01:00 74 13 118/31 (60) 99 08/15/18 00:00 98.8 69 14 107/27 (53) 100 08/15/18 00:00 Mechanical Ventilator Mechanical Ventilator Mechanical Ventilator 08/15/18 00:00 35 08/15/18 00:00 69 08/14/18 23:00 72 17 108/29 (55) 100 08/14/18 23:00 73 10 35 08/14/18 22:00 74 16 107/29 (55) 100 08/14/18 21:26 70 11 35 08/14/18 21:13 135/34 08/14/18 21:00 74 16 110/29 (56) 99 08/14/18 20:00 75 08/14/18 20:00 35 08/14/18 20:00 Mechanical Ventilator Mechanical Ventilator Mechanical Ventilator 08/14/18 19:59 98.4 83 18 135/34 (67) 93 08/14/18 19:18 81 14 35 08/14/18 19:00 81 15 115/34 (61) 95 18 18:00 72 14 99/25 (49) 95 08/14/18 17:06 74 13 35 08/14/18 17:00 76 14 120/33 (62) 100 08/14/18 16:00 98.4 78 19 114/33 (60) 100 08/14/18 16:00 35 08/14/18 16:00 Mechanical Ventilator Mechanical Ventilator Mechanical Ventilator 08/14/18 16:00 78 18 15:24 113 25 35 08/14/18 15:00 77 14 140/15 (56) 100 18 14:00 74 17 113/21 (51) 100 08/14/18 13:00 73 20 105/60 (75) 99 08/14/18 12:53 79 18 35 08/14/18 12:00 98.6 80 19 112/60 (77) 99 18 12:00 35 08/14/18 12:00 Mechanical Ventilator Mechanical Ventilator Mechanical Ventilator 08/14/18 12:00 90 08/14/18 11:00 93 20 134/56 (82) 99 08/14/18 10:36 94 25 35 Intake and Output 08/14/18 08/15/18 19:00 07:00 Intake Total 415 ml 310 ml Output Total 25 ml 50 ml Balance 390 ml 260 ml IV Total 55 ml 60 ml Tube Feeding 360 ml 150 ml Other 100 ml Stool Total 25 ml 50 ml General Appearance: no acute distress HEENT: normocephalic Respiratory/Chest: chest wall non-tender, lungs clear Cardiovascular: normal peripheral pulses, normal rate Abdomen: normal bowel sounds, soft, non tender Laboratory Tests 08/15/18 04:30: White Blood Count 7.0, Red Blood Count 3.04L, Hemoglobin 8.5L, Hematocrit 28.0L , Mean Corpuscular Volume 92, Mean Corpuscular Hemoglobin 27.8, Mean Corpuscular Hemoglobin Concent 30.2L, Red Cell Distribution Width 19.2H, Platelet Count 335, Mean Platelet Volume 6.6, Neutrophils (%) (Auto) 76.8H, Lymphocytes (%) (Auto) 9.9L, Monocytes (%) (Auto) 9.5, Eosinophils (%) (Auto) 2.2, Basophils (%) (Auto) 1.6, Prothrombin Time 10.2, Prothromb Time International Ratio 1.0, Activated Partial Thromboplast Time 97H, Sodium Level 142, Potassium Level 3.3L, Chloride Level 102, Carbon Dioxide Level 32, Anion Gap 8, Blood Urea Nitrogen 45H, Creatinine 3.3H, Estimat Glomerular Filtration Rate , Glucose Level 103, Calcium Level 8.3L, Phosphorus Level 4.7 Current Medications Medications (Trade) Dose Ordered Sig/Renetta Route PRN Reason Start Time Stop Time Status Last Admin Dose Admin Acetaminophen (Tylenol) 650 mg Q6H PRN ORAL Mild Pain/Temp > 100.5 08/02/18 14:15 09/01/18 14:14 08/10/18 13:15 Amiodarone HCl (Cordarone) 200 mg EVERY 12 HOURS NG 08/06/18 21:00 09/03/18 13:59 08/15/18 08:16 Chlorhexidine Gluconate (Rylie-Hex 2%) 1 applic DAILY@1999 TOPIC 07/26/18 20:00 08/25/18 19:59 08/14/18 21:12 Collagenase (Santyl) 1 applic Q12HR TOPIC 08/10/18 21:00 09/03/18 20:59 08/15/18 08:20 Epoetin Paul (Procrit (for ESRD on dialysis)) 10,000 units WED-WED-WED SUBQ 07/27/18 21:00 08/26/18 20:59 08/12/18 20:58 Heparin Sodium (Porcine) (Heparin 5000 units/ml) 5,000 units EVERY 12 HOURS SUBQ 08/13/18 21:00 09/04/18 21:59 08/14/18 08:35 Heparin Sodium (Porcine) (Heparin Sod 1000 units/ml 10ml) 2,000 unit ONCE PRN IV DIALYSIS 08/14/18 12:51 08/15/18 23:59 Iron Sucrose 100 mg/Sodium Chloride 60 ml @ 240 mls/hr BEDTIME IV 08/11/18 21:00 08/15/18 21:14 08/14/18 21:12 Meropenem 500 mg/ Sodium Chloride 55 ml @ 110 mls/hr DAILY IVPB 08/09/18 09:00 08/23/18 08:59 08/15/18 08:16 Minoxidil (Loniten) 5 mg Q12HR NG 07/31/18 21:00 08/30/18 20:59 08/14/18 21:13 Pantoprazole (Protonix) 40 mg Q12HR IVP 07/25/18 21:00 08/25/18 08:59 08/15/18 08:15 Sodium Chloride 1,000 ml @ 500 mls/hr Q2H PRN IVLG sbp<90 during hd 08/14/18 12:48 08/15/18 23:59 Vitamin D (Vitamin D) 1,000 intlu DAILY GT 08/07/18 10:00 09/06/18 09:59 08/15/18 08:16 Andres Allan MD Aug 15, 2018 10:23
--- NOTE | 2018-08-15 10:40 | NUR ---
NURSE NOTES: Seen by Dr Benitez, for preop consult related to tracheostomy placement. Consent signed and obtained from son Negro.Will follow up with new orders.
--- NOTE | 2018-08-15 11:00 | NUR ---
RD ASSESSMENT & RECOMMENDATIONS SEE CARE ACTIVITY FOR COMPLETE ASSESSMENT DAILY ESTIMATED NEEDS: Needs based on Critical care + Advanced Wounds + ESRD/ 60kg 22-30 kcals/kg 5751-5567 total kcals 1.5-2.0 g protein/kg 90-120g g total protein Fluid per MD, on HD NUTRITION DIAGNOSIS: * Swallowing difficulty R/T respiratory status as evidenced by pt s/p self extubation, s/p code blue, now reintubated w/ pending trach placement, on OGT feeding. * Increased kcal/prot needs R/T wound healing as evidenced by pt admitted w/ multiple wounds including stage 4 sacral wound, refer to WC eval. * Altered nutrition related lab values R/T ESRD dx, clinical condition as evidenced by elev creat (4.6-> 3.3 low Na (130-> wnl), elev BNP >47696, low BP, off pressor at this time. CURRENT TF: Nepro @30ml/hr - HELD FOR TRACH ENTERAL NUTRITION RECOMMENDATIONS: Nepro @ 35ml/hr x 24 hrs + Prosource 1pkt TID to provide 840ml, 1512kcal, 68g + 33g prot, 611ml free water 1. As able restart NEPRO @25ml for 6 hrs, advance to goal rate to 35ml/hr x 24 hrs 2. Add Prosource 1 pkt TID to meet increased prot needs ADDITIONAL RECOMMENDATIONS: * Calibrated bedscale wt for accurate CBW (pt w/ added air release mattress) * Monitor HD stability * Wound healing- Nephrovite x 1, Afshin 1pkt BID * Monitor Renal fxn and lytes * SSI w/ TF- h/o DM .
--- NOTE | 2018-08-15 11:28 | Infectious Diseases Prog Note ---
"Assessment/Plan Assessment/Plan antibiotics : meropenem A 1. 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 shock resolved 3. leucocytosis resolved 4. respiratory failure 5. renal failure 6. 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 pleural effusion P 1. continue meropenem 2. will follow up cultures Subjective ROS Limited/Unobtainable: Yes Allergies: Coded Allergies: No Known Allergies (Unverified , 07/25/18) Objective Vital Signs Last 24 Hour Vital Signs Date Time Temp Pulse Resp B/P (MAP) Pulse Ox O2 Delivery O2 Flow Rate FiO2 08/15/18 11:00 90 18 134/34 (67) 93 08/15/18 10:43 117 21 35 08/15/18 10:00 93 18 123/14 (50) 93 08/15/18 09:00 77 18 127/38 (67) 100 08/15/18 08:51 65 14 35 08/15/18 08:20 122/23 08/15/18 08:00 98 08/15/18 08:00 98.8 68 15 122/23 (56) 100 08/15/18 08:00 Mechanical Ventilator Mechanical Ventilator Mechanical Ventilator 08/15/18 08:00 35 08/15/18 07:00 71 12 120/17 (51) 100 08/15/18 06:50 75 15 35 08/15/18 06:00 75 15 124/22 (56) 99 08/15/18 05:00 99 21 120/36 (64) 99 08/15/18 04:40 69 15 35 08/15/18 04:00 98.9 70 14 116/42 (66) 100 08/15/18 04:00 Mechanical Ventilator Mechanical Ventilator Mechanical Ventilator 08/15/18 04:00 35 08/15/18 04:00 70 08/15/18 03:00 69 14 116/31 (59) 99 08/15/18 02:48 74 13 35 08/15/18 02:00 79 16 138/35 (69) 91 08/15/18 01:19 72 22 35 08/15/18 01:00 74 13 118/31 (60) 99 08/15/18 00:00 98.8 69 14 107/27 (53) 100 08/15/18 00:00 Mechanical Ventilator Mechanical Ventilator Mechanical Ventilator 08/15/18 00:00 35 08/15/18 00:00 69 08/14/18 23:00 72 17 108/29 (55) 100 08/14/18 23:00 73 10 35 08/14/18 22:00 74 16 107/29 (55) 100 18 21:26 70 11 35 08/14/18 21:13 135/34 18 21:00 74 16 110/29 (56) 99 08/14/18 20:00 75 08/14/18 20:00 35 08/14/18 20:00 Mechanical Ventilator Mechanical Ventilator Mechanical Ventilator 08/14/18 19:59 98.4 83 18 135/34 (67) 93 08/14/18 19:18 81 14 35 08/14/18 19:00 81 15 115/34 (61) 95 08/14/18 18:00 72 14 99/25 (49) 95 08/14/18 17:06 74 13 35 08/14/18 17:00 76 14 120/33 (62) 100 08/14/18 16:00 98.4 78 19 114/33 (60) 100 08/14/18 16:00 35 08/14/18 16:00 Mechanical Ventilator Mechanical Ventilator Mechanical Ventilator 08/14/18 16:00 78 08/14/18 15:24 113 25 35 08/14/18 15:00 77 14 140/15 (56) 100 08/14/18 14:00 74 17 113/21 (51) 100 08/14/18 13:00 73 20 105/60 (75) 99 08/14/18 12:53 79 18 35 08/14/18 12:00 98.6 80 19 112/60 (77) 99 08/14/18 12:00 35 08/14/18 12:00 Mechanical Ventilator Mechanical Ventilator Mechanical Ventilator 08/14/18 12:00 90 Height (Feet): 5 Height (Inches): 2.00 Weight (Pounds): 133 Respiratory/Chest: lungs clear Cardiovascular: normal rate, regular rhythm, no gallop/murmur Abdomen: soft, non tender Extremities: no edema, other - PICC line Laboratory Tests Test 08/15/18 04:30 White Blood Count 7.0 K/UL (4.8-10.8) Red Blood Count 3.04 M/UL (4.20-5.40) L Hemoglobin 8.5 G/DL (12.0-16.0) L Hematocrit 28.0 % (37.0-47.0) L Mean Corpuscular Volume 92 FL (80-99) Mean Corpuscular Hemoglobin 27.8 PG (27.0-31.0) Mean Corpuscular Hemoglobin Concent 30.2 G/DL (32.0-36.0) L Red Cell Distribution Width 19.2 % (11.6-14.8) H Platelet Count 335 K/UL (150-450) Mean Platelet Volume 6.6 FL (6.5-10.1) Neutrophils (%) (Auto) 76.8 % (45.0-75.0) H Lymphocytes (%) (Auto) 9.9 % (20.0-45.0) L Monocytes (%) (Auto) 9.5 % (1.0-10.0) Eosinophils (%) (Auto) 2.2 % (0.0-3.0) Basophils (%) (Auto) 1.6 % (0.0-2.0) Prothrombin Time 10.2 SEC (9.30-11.50) Prothromb Time International Ratio 1.0 (0.9-1.1) Activated Partial Thromboplast Time 97 SEC (23-33) H Sodium Level 142 MMOL/L (136-145) Potassium Level 3.3 MMOL/L (3.5-5.1) L Chloride Level 102 MMOL/L (98-107) Carbon Dioxide Level 32 MMOL/L (21-32) Anion Gap 8 mmol/L (5-15) Blood Urea Nitrogen 45 mg/dL (7-18) H Creatinine 3.3 MG/DL (0.55-1.30) H Estimat Glomerular Filtration Rate mL/min (>60) Glucose Level 103 MG/DL (74-106) Calcium Level 8.3 MG/DL (8.5-10.1) L Phosphorus Level 4.7 MG/DL (2.5-4.9) Current Medications Medications (Trade) Dose Ordered Sig/Renetta Route PRN Reason Start Time Stop Time Status Last Admin Dose Admin Acetaminophen (Tylenol) 650 mg Q6H PRN ORAL Mild Pain/Temp > 100.5 08/02/18 14:15 09/01/18 14:14 08/10/18 13:15 Amiodarone HCl (Cordarone) 200 mg EVERY 12 HOURS NG 08/06/18 21:00 09/03/18 13:59 08/15/18 08:16 Chlorhexidine Gluconate (Rylie-Hex 2%) 1 applic DAILY@2000 TOPIC 07/26/18 20:00 08/25/18 19:59 08/14/18 21:12 Collagenase (Santyl) 1 applic Q12HR TOPIC 08/10/18 21:00 09/03/18 20:59 08/15/18 08:20 Epoetin Paul (Procrit (for ESRD on dialysis)) 10,000 units WED-WED-WED SUBQ 07/27/18 21:00 08/26/18 20:59 08/12/18 20:58 Heparin Sodium (Porcine) (Heparin 5000 units/ml) 5,000 units EVERY 12 HOURS SUBQ 08/13/18 21:00 09/04/18 21:59 08/14/18 08:35 Heparin Sodium (Porcine) (Heparin Sod 1000 units/ml 10ml) 2,000 unit ONCE PRN IV DIALYSIS 08/14/18 12:51 08/15/18 23:59 Iron Sucrose 100 mg/Sodium Chloride 60 ml @ 240 mls/hr BEDTIME IV 08/11/18 21:00 08/15/18 21:14 08/14/18 21:12 Meropenem 500 mg/ Sodium Chloride 55 ml @ 110 mls/hr DAILY IVPB 08/09/18 09:00 08/23/18 08:59 08/15/18 08:16 Minoxidil (Loniten) 5 mg Q12HR NG 07/31/18 21:00 08/30/18 20:59 08/14/18 21:13 Pantoprazole (Protonix) 40 mg Q12HR IVP 07/25/18 21:00 08/25/18 08:59 08/15/18 08:15 Sodium Chloride 1,000 ml @ 500 mls/hr Q2H PRN IVLG sbp<90 during hd 08/14/18 12:48 08/15/18 23:59 Vitamin D (Vitamin D) 1,000 intlu DAILY GT 08/07/18 10:00 09/06/18 09:59 08/15/18 08:16 Omid Morfin MD Aug 15, 2018 11:28"
--- NOTE | 2018-08-15 11:30 | NUR ---
NURSE NOTES: Dialysis done and 2.5L taken out
--- NOTE | 2018-08-15 11:52 | GI Progress Note ---
Assessment/Plan Problems: (1) Encounter for PEG (percutaneous endoscopic gastrostomy) ICD Codes: Z43.1 - Encounter for attention to gastrostomy SNOMED: 340996309, 066481272 (2) Severe malnutrition ICD Codes: E43 - Unspecified severe protein-calorie malnutrition SNOMED: 15327699 (3) Dehydration ICD Codes: E86.0 - Dehydration SNOMED: 61001641 Status: unchanged Status Narrative Discussed with Dr. Cox. Assessment/Plan Assessment - Dysphagia - Resp failure - ESRD - Anemia Recommendations - continue TF - GT care - trach today, will follow with PEG this Wednesday The patient was seen and examined at bedside and all new and available data was reviewed in the patients chart. I agree with the above findings, impression and plan. (Patient seen earlier today. Signature stamp does not reflect patient encounter time.). - Oc Cox MD Subjective Subjective limited Objective Last 24 Hour Vital Signs Date Time Temp Pulse Resp B/P (MAP) Pulse Ox O2 Delivery O2 Flow Rate FiO2 08/15/18 11:00 90 18 134/34 (67) 93 08/15/18 10:43 117 21 35 08/15/18 10:00 93 18 123/14 (50) 93 08/15/18 09:00 77 18 127/38 (67) 100 08/15/18 08:51 65 14 35 08/15/18 08:20 122/23 08/15/18 08:00 98 08/15/18 08:00 98.8 68 15 122/23 (56) 100 08/15/18 08:00 Mechanical Ventilator Mechanical Ventilator Mechanical Ventilator 08/15/18 08:00 35 08/15/18 07:00 71 12 120/17 (51) 100 08/15/18 06:50 75 15 35 08/15/18 06:00 75 15 124/22 (56) 99 08/15/18 05:00 99 21 120/36 (64) 99 08/15/18 04:40 69 15 35 08/15/18 04:00 98.9 70 14 116/42 (66) 100 08/15/18 04:00 Mechanical Ventilator Mechanical Ventilator Mechanical Ventilator 08/15/18 04:00 35 08/15/18 04:00 70 08/15/18 03:00 69 14 116/31 (59) 99 08/15/18 02:48 74 13 35 08/15/18 02:00 79 16 138/35 (69) 91 08/15/18 01:19 72 22 35 08/15/18 01:00 74 13 118/31 (60) 99 08/15/18 00:00 98.8 69 14 107/27 (53) 100 08/15/18 00:00 Mechanical Ventilator Mechanical Ventilator Mechanical Ventilator 08/15/18 00:00 35 08/15/18 00:00 69 08/14/18 23:00 72 17 108/29 (55) 100 08/14/18 23:00 73 10 35 08/14/18 22:00 74 16 107/29 (55) 100 08/14/18 21:26 70 11 35 08/14/18 21:13 135/34 08/14/18 21:00 74 16 110/29 (56) 99 08/14/18 20:00 75 08/14/18 20:00 35 08/14/18 20:00 Mechanical Ventilator Mechanical Ventilator Mechanical Ventilator 08/14/18 19:59 98.4 83 18 135/34 (67) 93 08/14/18 19:18 81 14 35 08/14/18 19:00 81 15 115/34 (61) 95 18 18:00 72 14 99/25 (49) 95 08/14/18 17:06 74 13 35 08/14/18 17:00 76 14 120/33 (62) 100 08/14/18 16:00 98.4 78 19 114/33 (60) 100 08/14/18 16:00 35 08/14/18 16:00 Mechanical Ventilator Mechanical Ventilator Mechanical Ventilator 08/14/18 16:00 78 18 15:24 113 25 35 08/14/18 15:00 77 14 140/15 (56) 100 18 14:00 74 17 113/21 (51) 100 08/14/18 13:00 73 20 105/60 (75) 99 08/14/18 12:53 79 18 35 08/14/18 12:00 98.6 80 19 112/60 (77) 99 18 12:00 35 08/14/18 12:00 Mechanical Ventilator Mechanical Ventilator Mechanical Ventilator 08/14/18 12:00 90 Intake and Output 08/14/18 08/15/18 19:00 07:00 Intake Total 415 ml 310 ml Output Total 25 ml 50 ml Balance 390 ml 260 ml IV Total 55 ml 60 ml Tube Feeding 360 ml 150 ml Other 100 ml Stool Total 25 ml 50 ml Laboratory Tests Test 08/15/18 04:30 White Blood Count 7.0 K/UL (4.8-10.8) Red Blood Count 3.04 M/UL (4.20-5.40) L Hemoglobin 8.5 G/DL (12.0-16.0) L Hematocrit 28.0 % (37.0-47.0) L Mean Corpuscular Volume 92 FL (80-99) Mean Corpuscular Hemoglobin 27.8 PG (27.0-31.0) Mean Corpuscular Hemoglobin Concent 30.2 G/DL (32.0-36.0) L Red Cell Distribution Width 19.2 % (11.6-14.8) H Platelet Count 335 K/UL (150-450) Mean Platelet Volume 6.6 FL (6.5-10.1) Neutrophils (%) (Auto) 76.8 % (45.0-75.0) H Lymphocytes (%) (Auto) 9.9 % (20.0-45.0) L Monocytes (%) (Auto) 9.5 % (1.0-10.0) Eosinophils (%) (Auto) 2.2 % (0.0-3.0) Basophils (%) (Auto) 1.6 % (0.0-2.0) Prothrombin Time 10.2 SEC (9.30-11.50) Prothromb Time International Ratio 1.0 (0.9-1.1) Activated Partial Thromboplast Time 97 SEC (23-33) H Sodium Level 142 MMOL/L (136-145) Potassium Level 3.3 MMOL/L (3.5-5.1) L Chloride Level 102 MMOL/L (98-107) Carbon Dioxide Level 32 MMOL/L (21-32) Anion Gap 8 mmol/L (5-15) Blood Urea Nitrogen 45 mg/dL (7-18) H Creatinine 3.3 MG/DL (0.55-1.30) H Estimat Glomerular Filtration Rate mL/min (>60) Glucose Level 103 MG/DL (74-106) Calcium Level 8.3 MG/DL (8.5-10.1) L Phosphorus Level 4.7 MG/DL (2.5-4.9) Height (Feet): 5 Height (Inches): 2.00 Weight (Pounds): 133 General Appearance: WD/WN, no apparent distress, alert Cardiovascular: normal rate Respiratory/Chest: normal breath sounds, no respiratory distress Abdominal Exam: normal bowel sounds, non tender, soft, other - OGT Extremities: non-tender Rita Quintanilla NP Aug 15, 2018 11:52
[2018-08-15] MEDS ORDERED: NS Irrig 1000ml ONE (12:00)
[2018-08-15] MEDS ORDERED: Zemuron 50mg/5ml Inj IV ONE (12:37)
[2018-08-15] MEDS ORDERED: Lidocaine 1% 10mg/ml/Epi 0.005mg/ml 30ml vial INJ ONE (12:37)
[2018-08-15] MEDS ORDERED: Betadine 10% Oint 30gm TOPIC ONE (12:37)
[2018-08-15] MEDS ORDERED: Bupivacaine w/Epi 0.5% 30ml Vial INJ ONE (12:37)
[2018-08-15] MEDS ORDERED: fentaNYL 100 mcg/2 mL IV ONE (12:39)
--- NOTE | 2018-08-15 12:50 | NUR ---
RESPIRATORY NOTE: transferred pt to surgery to get trach procedure done on 15L ambu bag 100% FiO2, pt is stable, no SOB or distress, understanding the plan. Waiting for pt to come back to ICU.
--- NOTE | 2018-08-15 13:00 | NUR ---
NURSE NOTES: Patient taken down for tracheostomy placement accompanied .RT and MD present during transfer
--- NOTE | 2018-08-15 13:20 | Podiatric Progress Note ---
Assessment/Plan Patient Kelsi Montana is a 78 year old female who was admitted on Jul 25, 2018 at 10 :32 with Subjective Allergies: Coded Allergies: No Known Allergies (Unverified , 07/25/18) Subjective - Brief Podiatry Progress Note: - Attempted to see pt at bedside, pt was not present undergoing procedure. Objective Exam Last 24 Hour Vital Signs Date Time Temp Pulse Resp B/P (MAP) Pulse Ox O2 Delivery O2 Flow Rate FiO2 08/15/18 12:34 80 15 35 08/15/18 12:00 98.4 80 17 118/20 (52) 95 08/15/18 12:00 79 08/15/18 12:00 35 08/15/18 12:00 Mechanical Ventilator Mechanical Ventilator Mechanical Ventilator 08/15/18 11:00 90 18 134/34 (67) 93 08/15/18 10:43 117 21 35 08/15/18 10:00 93 18 123/14 (50) 93 08/15/18 09:00 77 18 127/38 (67) 100 08/15/18 08:51 65 14 35 08/15/18 08:20 122/23 08/15/18 08:00 98 08/15/18 08:00 98.8 68 15 122/23 (56) 100 08/15/18 08:00 Mechanical Ventilator Mechanical Ventilator Mechanical Ventilator 08/15/18 08:00 35 08/15/18 07:00 71 12 120/17 (51) 100 08/15/18 06:50 75 15 35 08/15/18 06:00 75 15 124/22 (56) 99 08/15/18 05:00 99 21 120/36 (64) 99 08/15/18 04:40 69 15 35 08/15/18 04:00 98.9 70 14 116/42 (66) 100 08/15/18 04:00 Mechanical Ventilator Mechanical Ventilator Mechanical Ventilator 08/15/18 04:00 35 08/15/18 04:00 70 08/15/18 03:00 69 14 116/31 (59) 99 08/15/18 02:48 74 13 35 08/15/18 02:00 79 16 138/35 (69) 91 08/15/18 01:19 72 22 35 08/15/18 01:00 74 13 118/31 (60) 99 08/15/18 00:00 98.8 69 14 107/27 (53) 100 08/15/18 00:00 Mechanical Ventilator Mechanical Ventilator Mechanical Ventilator 08/15/18 00:00 35 08/15/18 00:00 69 08/14/18 23:00 72 17 108/29 (55) 100 08/14/18 23:00 73 10 35 08/14/18 22:00 74 16 107/29 (55) 100 08/14/18 21:26 70 11 35 08/14/18 21:13 135/34 08/14/18 21:00 74 16 110/29 (56) 99 08/14/18 20:00 75 08/14/18 20:00 35 08/14/18 20:00 Mechanical Ventilator Mechanical Ventilator Mechanical Ventilator 08/14/18 19:59 98.4 83 18 135/34 (67) 93 08/14/18 19:18 81 14 35 08/14/18 19:00 81 15 115/34 (61) 95 08/14/18 18:00 72 14 99/25 (49) 95 08/14/18 17:06 74 13 35 08/14/18 17:00 76 14 120/33 (62) 100 08/14/18 16:00 98.4 78 19 114/33 (60) 100 08/14/18 16:00 35 08/14/18 16:00 Mechanical Ventilator Mechanical Ventilator Mechanical Ventilator 08/14/18 16:00 78 08/14/18 15:24 113 25 35 08/14/18 15:00 77 14 140/15 (56) 100 08/14/18 14:00 74 17 113/21 (51) 100 Laboratory Tests Test 08/15/18 04:30 White Blood Count 7.0 K/UL (4.8-10.8) Red Blood Count 3.04 M/UL (4.20-5.40) L Hemoglobin 8.5 G/DL (12.0-16.0) L Hematocrit 28.0 % (37.0-47.0) L Mean Corpuscular Volume 92 FL (80-99) Mean Corpuscular Hemoglobin 27.8 PG (27.0-31.0) Mean Corpuscular Hemoglobin Concent 30.2 G/DL (32.0-36.0) L Red Cell Distribution Width 19.2 % (11.6-14.8) H Platelet Count 335 K/UL (150-450) Mean Platelet Volume 6.6 FL (6.5-10.1) Neutrophils (%) (Auto) 76.8 % (45.0-75.0) H Lymphocytes (%) (Auto) 9.9 % (20.0-45.0) L Monocytes (%) (Auto) 9.5 % (1.0-10.0) Eosinophils (%) (Auto) 2.2 % (0.0-3.0) Basophils (%) (Auto) 1.6 % (0.0-2.0) Prothrombin Time 10.2 SEC (9.30-11.50) Prothromb Time International Ratio 1.0 (0.9-1.1) Activated Partial Thromboplast Time 97 SEC (23-33) H Sodium Level 142 MMOL/L (136-145) Potassium Level 3.3 MMOL/L (3.5-5.1) L Chloride Level 102 MMOL/L (98-107) Carbon Dioxide Level 32 MMOL/L (21-32) Anion Gap 8 mmol/L (5-15) Blood Urea Nitrogen 45 mg/dL (7-18) H Creatinine 3.3 MG/DL (0.55-1.30) H Estimat Glomerular Filtration Rate mL/min (>60) Glucose Level 103 MG/DL (74-106) Calcium Level 8.3 MG/DL (8.5-10.1) L Phosphorus Level 4.7 MG/DL (2.5-4.9) Microbiology Date/Time Source Procedure Growth Status 07/25/18 08:45 Blood Blood Culture - Final NO GROWTH AFTER 5 DAYS Complete 07/27/18 11:40 Other(Specify in comment) Gram Stain - Final Complete 07/27/18 11:40 Wound Culture - Final Pseudomonas Aeruginosa Megha Albicans Complete 08/02/18 17:30 Sputum Gram Stain - Final Complete 08/02/18 17:30 Sputum Culture - Final Megha Albicans Complete 08/10/18 20:00 Stool Clostridium difficile Toxin Assay - Final Complete 07/25/18 08:30 Urine,Clean Catch Urine Culture - Final Escherichia Coli - Esbl Enterococcus Faecium - Vre Complete 07/27/18 11:40 Sacral Wound Gram Stain - Final Complete 07/27/18 11:40 Wound Culture - Final Staphylococcus Aureus - Mrsa Megha Albicans Complete Kal Delarosa DPM Aug 15, 2018 13:20
--- NOTE | 2018-08-15 13:31 | Brief Operative Note ---
Immediate Post Operative Note Operative Note Pre-op Diagnosis: respiratory insufficiency requiring prolong ventilatory support Procedure: Tracheostomy Post-op Diagnosis: same as pre-op Surgeon: angelica Anesthesiologist: nikos Anesthesia: general, local Specimen: none Complications: none Condition: stable Fluids: see records Estimated Blood Loss: minimal Drains: none Implant(s) used?: Reji Emmanuel Aug 15, 2018 13:31
--- NOTE | 2018-08-15 13:50 | NUR ---
NURSE NOTES: Patient returned back from Tracheostomy at 1350, tolerated well the procedure and vital signs stable at this time. HOB elevated , NGT inserted on the right nare.Placement checked and intact. Kept on close monitoring Addendum: 08/15/18 at 1749 by Mily Carrizales RN Son Negro made aware pt returned from Tracheostomy placement and she is stable at this time.
--- NOTE | 2018-08-15 13:58 | Anethesia Preoperative Eval ---
Anesthesia Pre-op PMH/ROS General Date of Evaluation: Aug 15, 2018 Time of Evaluation: 12:40 Anesthesiologist: Lizzeth ASA Score: ASA 4 Mallampati Score Class I : Soft palate, uvula, fauces, pillars visible Class II: Soft palate, uvula, fauces visible Class III: Soft palate, base of uvula visible Class IV: Only hard plate visible Mallampati Classification: Class III - Intubated on vent Surgeon: Rocio Diagnosis: Respiratory failure Surgical Procedure: Tracheostomy Anesthesia History: none Family History: no anesthesia problems Allergies: Coded Allergies: No Known Allergies (Unverified , 07/25/18) Patient NPO?: Yes NPO Date: Aug 15, 2018 NPO Time: 0000 Past Medical History Cardiovascular: Reports: HTN, arrhythmia - A fib. Pulmonary: Reports: other - respiratory failure; Denies: asthma, COPD, SHIKHA Gastrointestinal/Genitourinary: Reports: GERD, ESRD - on HD last session 08/15 ; Denies: CRI, other Neurologic/Psychiatric: Reports: dementia, depression/anxiety Endocrine: Reports: DM; Denies: hypothyroidism, steroids, other HEENT: Denies: cataract (L), cataract (R), glaucoma, [place] (L), [place] (R), other Hematology/Immune: Reports: anemia - of chronic d-sease; Denies: DVT, bleeding disorder, other Musculoskeletal/Integumentary: Reports: DJD, edema; Denies: OA, RA, DDD, other Other: other - malnourished PMH Narrative: as above PSxH Narrative: see H&P Anesthesia Pre-op Phys. Exam Physician Exam Last Vital Signs Date Time Temp Pulse Resp B/P (MAP) Pulse Ox O2 Delivery O2 Flow Rate FiO2 08/15/18 12:34 80 15 35 08/15/18 12:00 98.4 118/20 (52) 95 08/15/18 12:00 Mechanical Ventilator Mechanical Ventilator Mechanical Ventilator 08/08/18 08:00 12.0 15.0 12.0 Constitutional: NAD Neurologic: other - unable to obtaine Cardiovascular: other - A fib on and off Respiratory: other - on vent Gastrointestinal: other - OG tube in Airway Exam Mallampati Score: Class III MO: limited Neck: stiff ROM: limited Teeth: missing Dentures: no upper, no lower Anesthesia Pre-op A/P Labs Hematology Test 08/15/18 04:30 White Blood Count 7.0 K/UL (4.8-10.8) Red Blood Count 3.04 M/UL (4.20-5.40) L Hemoglobin 8.5 G/DL (12.0-16.0) L Hematocrit 28.0 % (37.0-47.0) L Mean Corpuscular Volume 92 FL (80-99) Mean Corpuscular Hemoglobin 27.8 PG (27.0-31.0) Mean Corpuscular Hemoglobin Concent 30.2 G/DL (32.0-36.0) L Red Cell Distribution Width 19.2 % (11.6-14.8) H Platelet Count 335 K/UL (150-450) Mean Platelet Volume 6.6 FL (6.5-10.1) Neutrophils (%) (Auto) 76.8 % (45.0-75.0) H Lymphocytes (%) (Auto) 9.9 % (20.0-45.0) L Monocytes (%) (Auto) 9.5 % (1.0-10.0) Eosinophils (%) (Auto) 2.2 % (0.0-3.0) Basophils (%) (Auto) 1.6 % (0.0-2.0) Coagulation Test 08/15/18 04:30 Prothrombin Time 10.2 SEC (9.30-11.50) Prothromb Time International Ratio 1.0 (0.9-1.1) Activated Partial Thromboplast Time 97 SEC (23-33) H Chemistry Test 08/15/18 04:30 Sodium Level 142 MMOL/L (136-145) Potassium Level 3.3 MMOL/L (3.5-5.1) L Chloride Level 102 MMOL/L (98-107) Carbon Dioxide Level 32 MMOL/L (21-32) Anion Gap 8 mmol/L (5-15) Blood Urea Nitrogen 45 mg/dL (7-18) H Creatinine 3.3 MG/DL (0.55-1.30) H Estimat Glomerular Filtration Rate mL/min (>60) Glucose Level 103 MG/DL (74-106) Calcium Level 8.3 MG/DL (8.5-10.1) L Phosphorus Level 4.7 MG/DL (2.5-4.9) Risk Assessment & Plan Assessment: ASA 4 Plan: GA with ETT phone consent with son for anesthesia Status Change Before Surgery: No Pre-Antibiotics Drug: Ancef 1 gr. Given Within 1 Hr of Incision: Yes Time Given: 13:20 Miller Moreau MD Aug 15, 2018 13:58
--- NOTE | 2018-08-15 14:27 | Immediate Post-Op Evaluation ---
Immediate Post-Op Evalulation Immediate Post-Op Evalulation Procedure: Tracheostomy Date of Evaluation: Aug 15, 2018 Time of Evaluation: 13:54 IV Fluids: 300 Blood Products: none Estimated Blood Loss: min Urinary Output: none Blood Pressure Systolic: 103 Blood Pressure Diastolic: 56 Pulse Rate: 98 Respiratory Rate: 20 O2 Sat by Pulse Oximetry: 98 Temperature (Fahrenheit): 97.6 Pain Score (1-10): 1 Nausea: No Vomiting: No Complications none Patient Status: no response, ventilated, none Hydration Status: adequate Miller Moreau MD Aug 15, 2018 14:27
--- NOTE | 2018-08-15 15:08 | NUR ---
CASE MANAGEMENT: REVIEW SI: CELLULITIS OF RIGHT LEG . OSTEOMYELITIS . RESP FAILURE INTUBATED . ESRD ON HD T 98.4 HR 79 RR 17 BP 118/20 SAT 95% MECH VENT FIO2 35 H/H 8.5/28.0 K 3.3 IS: VENOFER IV QHS MEROPENEM IV QD AMIODARONE NG Q12HR PROCRIT SQ MWF PROTONIX IV Q12HR NGT FEEDING NEPRO @10ML/HR GOAL RATE 30ML/HR ICU STATUS DCP: PATIENT IS FROM [facility]
--- NOTE | 2018-08-15 15:33 | Nephrology Progress Note ---
Assessment/Plan Assessment Seee below Plan MOF stable. Sepsis due to infected diabetic ulcers. On IV Abx. Followed by ID, Vasc. Sx, Podiatry. ESRD HD q MWF Anemia of CKD , DARRYN high dose. Transfuse PRN. A. 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 with LAE. LVEF 65% . Anticoagulate when stable. DW Dr. Butler. In and out A. Fib. Post trach. For PEG tomorrow. Referred to [facility]. See orders. Subjective Subjective On Vent. Alert. Post Trach. Had HD UF 2.5 L. Objective Objective Last 24 Hour Vital Signs Date Time Temp Pulse Resp B/P (MAP) Pulse Ox O2 Delivery O2 Flow Rate FiO2 08/15/18 14:27 98 20 98 08/15/18 14:00 35 08/15/18 14:00 77 20 98/30 (52) 91 08/15/18 13:57 81 20 35 08/15/18 12:34 80 15 35 08/15/18 12:00 98.4 80 17 118/20 (52) 95 08/15/18 12:00 79 08/15/18 12:00 35 08/15/18 12:00 Mechanical Ventilator Mechanical Ventilator Mechanical Ventilator 08/15/18 11:00 90 18 134/34 (67) 93 08/15/18 10:43 117 21 35 08/15/18 10:00 93 18 123/14 (50) 93 08/15/18 09:00 77 18 127/38 (67) 100 08/15/18 08:51 65 14 35 08/15/18 08:20 122/23 08/15/18 08:00 98 08/15/18 08:00 98.8 68 15 122/23 (56) 100 08/15/18 08:00 Mechanical Ventilator Mechanical Ventilator Mechanical Ventilator 08/15/18 08:00 35 08/15/18 07:00 71 12 120/17 (51) 100 08/15/18 06:50 75 15 35 08/15/18 06:00 75 15 124/22 (56) 99 08/15/18 05:00 99 21 120/36 (64) 99 08/15/18 04:40 69 15 35 08/15/18 04:00 98.9 70 14 116/42 (66) 100 08/15/18 04:00 Mechanical Ventilator Mechanical Ventilator Mechanical Ventilator 08/15/18 04:00 35 08/15/18 04:00 70 08/15/18 03:00 69 14 116/31 (59) 99 08/15/18 02:48 74 13 35 08/15/18 02:00 79 16 138/35 (69) 91 08/15/18 01:19 72 22 35 08/15/18 01:00 74 13 118/31 (60) 99 08/15/18 00:00 98.8 69 14 107/27 (53) 100 08/15/18 00:00 Mechanical Ventilator Mechanical Ventilator Mechanical Ventilator 08/15/18 00:00 35 08/15/18 00:00 69 08/14/18 23:00 72 17 108/29 (55) 100 08/14/18 23:00 73 10 35 08/14/18 22:00 74 16 107/29 (55) 100 08/14/18 21:26 70 11 35 08/14/18 21:13 135/34 08/14/18 21:00 74 16 110/29 (56) 99 08/14/18 20:00 75 08/14/18 20:00 35 08/14/18 20:00 Mechanical Ventilator Mechanical Ventilator Mechanical Ventilator 08/14/18 19:59 98.4 83 18 135/34 (67) 93 08/14/18 19:18 81 14 35 08/14/18 19:00 81 15 115/34 (61) 95 08/14/18 18:00 72 14 99/25 (49) 95 08/14/18 17:06 74 13 35 08/14/18 17:00 76 14 120/33 (62) 100 08/14/18 16:00 98.4 78 19 114/33 (60) 100 08/14/18 16:00 35 08/14/18 16:00 Mechanical Ventilator Mechanical Ventilator Mechanical Ventilator 08/14/18 16:00 78 Intake and Output 08/14/18 08/15/18 18:59 06:59 Intake Total 415 ml 340 ml Output Total 0 ml 75 ml Balance 415 ml 265 ml IV Total 55 ml 60 ml Tube Feeding 360 ml 180 ml Other 100 ml Stool Total 0 ml 75 ml Laboratory Tests 08/15/18 04:30: White Blood Count 7.0, Red Blood Count 3.04L, Hemoglobin 8.5L, Hematocrit 28.0L , Mean Corpuscular Volume 92, Mean Corpuscular Hemoglobin 27.8, Mean Corpuscular Hemoglobin Concent 30.2L, Red Cell Distribution Width 19.2H, Platelet Count 335, Mean Platelet Volume 6.6, Neutrophils (%) (Auto) 76.8H, Lymphocytes (%) (Auto) 9.9L, Monocytes (%) (Auto) 9.5, Eosinophils (%) (Auto) 2.2, Basophils (%) (Auto) 1.6, Prothrombin Time 10.2, Prothromb Time International Ratio 1.0, Activated Partial Thromboplast Time 97H, Sodium Level 142, Potassium Level 3.3L, Chloride Level 102, Carbon Dioxide Level 32, Anion Gap 8, Blood Urea Nitrogen 45H, Creatinine 3.3H, Estimat Glomerular Filtration Rate , Glucose Level 103, Calcium Level 8.3L, Phosphorus Level 4.7 Height (Feet): 5 Height (Inches): 2.00 Weight (Pounds): 133 Objective On vent. Trach clean. Cv IRR/IRR Lungs B ronchi. Abd SNT. BS + E Rt. foot diabetic ulcers Chase He MD Aug 15, 2018 15:33
--- NOTE | 2018-08-15 16:20 | NUR ---
NURSE NOTES: ADLS done,pt turned and repositioned.HOB elevated to prevent aspiration.Clean dry and comfortable.No s/s bleeding at the tracheostomy site.Dressing dry clean and intact.Continue monitoring.
--- NOTE | 2018-08-15 18:01 | NUR ---
NURSE NOTES: ADLS DONE, PATIENT KEPT CLEAN AND DRY.MOUTH CARE DONE.NO S/S BLEEDING AT THE TRACHEOSTOMY SITE.DRESSING CLEAN DRY AND INTACT.KEPT ON CLOSE MONITORING.HOB ELEVATED TO PREVENT ASPIRATION.
--- NOTE | 2018-08-15 19:04 | Cardiology Progress Note ---
Assessment/Plan Assessment/Plan 1. Hypotension, possibly sepsis versus volume. 2. Paroxysmal episodes of atrial fibrillation history. 3. Bradycardia secondary to medications, amiodarone possibly. 4. Diabetes mellitus. 5. End-stage renal disease, on hemodialysis. 6. Lung collapse. 7. Respiratory failure, status post intubation. 8. Dysphagia. 9. History of dementia. 10. Pulm htn 11. Pleural effusion 12. cardaic arrest 13. chest wall pain post cpr in and out afib amido now 200 bid on hold stool ob neg x2 amiod bid off labetolol for now if need hydralaize to be used vent support s/p trach today peg pending tomorrow tele reviewed agian intermittent tachy but at this time is in sinus Subjective ROS Limited/Unobtainable: Yes Subjective on the vent not verba , denies cp or dizziness has sob Objective Last 24 Hour Vital Signs Date Time Temp Pulse Resp B/P (MAP) Pulse Ox O2 Delivery O2 Flow Rate FiO2 08/15/18 18:00 Mechanical Ventilator Mechanical Ventilator Mechanical Ventilator 08/15/18 18:00 79 19 117/76 (90) 91 08/15/18 17:00 82 19 132/28 (62) 91 08/15/18 16:50 85 15 35 08/15/18 16:00 35 08/15/18 16:00 98.0 79 16 122/84 (97) 95 08/15/18 16:00 Mechanical Ventilator Mechanical Ventilator Mechanical Ventilator 08/15/18 16:00 80 08/15/18 15:30 73 18 35 08/15/18 15:00 75 18 100/39 (59) 91 08/15/18 14:27 98 20 98 08/15/18 14:00 35 18 14:00 77 20 98/30 (52) 91 08/15/18 13:57 81 20 35 08/15/18 12:34 80 15 35 08/15/18 12:00 98.4 80 17 118/20 (52) 95 08/15/18 12:00 79 18 12:00 35 18 12:00 Mechanical Ventilator Mechanical Ventilator Mechanical Ventilator 08/15/18 11:00 90 18 134/34 (67) 93 08/15/18 10:43 117 21 35 08/15/18 10:00 93 18 123/14 (50) 93 08/15/18 09:00 77 18 127/38 (67) 100 08/15/18 08:51 65 14 35 18 08:20 122/23 08/15/18 08:00 98 08/15/18 08:00 98.8 68 15 122/23 (56) 100 08/15/18 08:00 Mechanical Ventilator Mechanical Ventilator Mechanical Ventilator 08/15/18 08:00 35 08/15/18 07:00 71 12 120/17 (51) 100 08/15/18 06:50 75 15 35 08/15/18 06:00 75 15 124/22 (56) 99 08/15/18 05:00 99 21 120/36 (64) 99 08/15/18 04:40 69 15 35 08/15/18 04:00 98.9 70 14 116/42 (66) 100 08/15/18 04:00 Mechanical Ventilator Mechanical Ventilator Mechanical Ventilator 08/15/18 04:00 35 08/15/18 04:00 70 08/15/18 03:00 69 14 116/31 (59) 99 08/15/18 02:48 74 13 35 08/15/18 02:00 79 16 138/35 (69) 91 08/15/18 01:19 72 22 35 08/15/18 01:00 74 13 118/31 (60) 99 08/15/18 00:00 98.8 69 14 107/27 (53) 100 08/15/18 00:00 Mechanical Ventilator Mechanical Ventilator Mechanical Ventilator 08/15/18 00:00 35 08/15/18 00:00 69 08/14/18 23:00 72 17 108/29 (55) 100 08/14/18 23:00 73 10 35 08/14/18 22:00 74 16 107/29 (55) 100 08/14/18 21:26 70 11 35 18 21:13 135/34 18 21:00 74 16 110/29 (56) 99 08/14/18 20:00 75 18 20:00 35 08/14/18 20:00 Mechanical Ventilator Mechanical Ventilator Mechanical Ventilator 08/14/18 19:59 98.4 83 18 135/34 (67) 93 08/14/18 19:18 81 14 35 General Appearance: alert Neck: supple Cardiovascular: normal rate Respiratory/Chest: lungs clear, normal breath sounds Abdomen: normal bowel sounds, non tender, soft Extremities: no swelling Intake and Output 08/14/18 08/15/18 18:59 06:59 Intake Total 415 ml 340 ml Output Total 0 ml 75 ml Balance 415 ml 265 ml IV Total 55 ml 60 ml Tube Feeding 360 ml 180 ml Other 100 ml Stool Total 0 ml 75 ml Laboratory Tests Test 08/15/18 04:30 White Blood Count 7.0 K/UL (4.8-10.8) Red Blood Count 3.04 M/UL (4.20-5.40) L Hemoglobin 8.5 G/DL (12.0-16.0) L Hematocrit 28.0 % (37.0-47.0) L Mean Corpuscular Volume 92 FL (80-99) Mean Corpuscular Hemoglobin 27.8 PG (27.0-31.0) Mean Corpuscular Hemoglobin Concent 30.2 G/DL (32.0-36.0) L Red Cell Distribution Width 19.2 % (11.6-14.8) H Platelet Count 335 K/UL (150-450) Mean Platelet Volume 6.6 FL (6.5-10.1) Neutrophils (%) (Auto) 76.8 % (45.0-75.0) H Lymphocytes (%) (Auto) 9.9 % (20.0-45.0) L Monocytes (%) (Auto) 9.5 % (1.0-10.0) Eosinophils (%) (Auto) 2.2 % (0.0-3.0) Basophils (%) (Auto) 1.6 % (0.0-2.0) Prothrombin Time 10.2 SEC (9.30-11.50) Prothromb Time International Ratio 1.0 (0.9-1.1) Activated Partial Thromboplast Time 97 SEC (23-33) H Sodium Level 142 MMOL/L (136-145) Potassium Level 3.3 MMOL/L (3.5-5.1) L Chloride Level 102 MMOL/L (98-107) Carbon Dioxide Level 32 MMOL/L (21-32) Anion Gap 8 mmol/L (5-15) Blood Urea Nitrogen 45 mg/dL (7-18) H Creatinine 3.3 MG/DL (0.55-1.30) H Estimat Glomerular Filtration Rate mL/min (>60) Glucose Level 103 MG/DL (74-106) Calcium Level 8.3 MG/DL (8.5-10.1) L Phosphorus Level 4.7 MG/DL (2.5-4.9) Angelo Butler MD Aug 15, 2018 19:04
--- NOTE | 2018-08-15 19:11 | NUR ---
HAND-OFF: Report given to BALDO Morgan.
--- NOTE | 2018-08-15 19:30 | Operative Note - Dictated ---
DATE OF OPERATION: 08/15/2018 PREOPERATIVE DIAGNOSIS: Respiratory insufficiency requiring prolonged ventilatory support. POSTOPERATIVE DIAGNOSIS: Respiratory insufficiency requiring prolonged ventilatory support. OPERATION PERFORMED: Tracheostomy. ATTENDING SURGEON: Reji Nails M.D. COMMUNITY SERVICE TECHNICIAN: None. ANESTHESIOLOGIST: Miller Moreau M.D. ANESTHESIA: General O AND M SUPERVISOR. ESTIMATED BLOOD LOSS: Minimal. IV FLUIDS: Please see anesthesia records. COMPLICATIONS: None. DRAINS: None. IMPLANTS: An #8 [place] Shiley tracheostomy tube. COUNT: Sponge and needle count correct x2. WOUND CLASSIFICATION: Class I. ANTIBIOTICS: The patient is on scheduled IV antibiotics. INDICATIONS FOR PROCEDURE: This is a 78-year-old female who has been in the intensive care unit at [facility] [place] on ventilatory support for some time now. The patient has had two prior failed extubations and continues to fail weaning trials. Surgery was indicated and recommended. Risks, benefits, and alternatives were discussed with the patient and family in detail and consent was obtained for surgery, which was performed on 08/15/2018. OPERATIVE NOTE: The patient was taken to the operating room directly from the intensive care unit and made comfortable. All bony prominences were well padded. Prior to entering the operating room, the patient already had an ET tube in place as well as an OG tube, Hanson catheter, and appropriate lines. The patient was already on IV antibiotics. Preoperative time-out was taken identifying the patient, procedure, operative staff, and surgical staff. General anesthesia was induced and the patient was made comfortable. A shoulder roll was placed. The neck was hyperextended. The neck was prepped and draped in standard surgical fashion. Local anesthetic was infiltrated in the proposed skin incision. A small skin incision was made 2 fingerbreadths above the sternal notch. All landmarks were identified prior to our incision. Incision was made using a fresh #15 scalpel and carried down through the subcutaneous tissue to the tracheal fascia with blunt dissection and minimal electrocautery. Once the trachea was identified, the cricoid cartilage, tracheal notch, and first and second tracheal rings were noted. The first and second tracheal rings were exposed and once completely exposed, a [place] flap was made in the second tracheal ring. Following this, the ET tube was clearly identified and with the assistance of the anesthesiologist in the team, a tracheal hook was placed for stabilization and the ET tube was slowly withdrawn until the tip was seen. At this time, once the hook was seen above the level of the flap, an 8-Citizen [place] Shiley tracheostomy tube was inserted under direct visualization without complication. The balloon was insufflated and the patient was placed onto the ventilator using the tracheostomy after cannula was inserted. Good end-tidal CO2 was noted as well as good volumes. The ET tube was withdrawn along with the OG tube. An NG tube was then placed. Respiratory secretions were cleared. The balloon of the tracheostomy was insufflated and the skin was reapproximated using 4-0 Monocryl interrupted sutures and tied to the trachea. At this time, dressings were applied and we began the conclusion of the procedure. The patient tolerated the procedure well and was taken directly to the intensive care unit in stable condition. Reji Nails M.D. DR: ALEJANDRA JOB#: [id number] CC:
--- NOTE | 2018-08-15 19:30 | NUR ---
NURSE NOTES: Recieved pr in no apparent distress. Awake, alert, oriented to self follow commands but impulsive. S/P Tracheostomy done today with Vaishaliley #8; site shows no signs of bleeding, no drainage. Vent dependent, with settings of AC8 TV 450 fiO2 .35 peep5, saturating 100%. Secretions scanty, but breath sounds diminished with scattered rhonchi. NGT to right nare in place, currently clamped; NPO. PICC on FLACO intact with IVF at TKO. SHARON AVgraft with moderately strong bruit and thrill. Rectal tube intact; Wound dressings dry and intact. Will closely monitor for bleeding and arrythmias
[2018-08-15] MEDS: Dyna-Hex 2% Top Sol 2oz TOPIC SCH (20:59)
[2018-08-15] MEDS: Epogen (for ESRD on dialysis) SUBQ SCH (21:01)
[2018-08-15] MEDS: Iron Sucrose 100 MG in NS 55 ML IV SCH (21:03)
--- NOTE | 2018-08-15 22:00 | NUR ---
NURSE NOTES: Remains awake, alert but calm;watches TV. Denies pain. In and out of afib.
[2018-08-16] VITALS (24 sets, daily range): BP systolic 88–135; BP diastolic 11–77
--- NOTE | 2018-08-16 | NUR ---
NURSE NOTES: Sleeping with HOB elevated. Remains NPO, for PEG placement in AM. Trach site shows no signs of bleeding. VSS. Still in and out of afib
--- NOTE | 2018-08-16 02:00 | NUR ---
NURSE NOTES: Calm, asleep; No distress. Pt still in and out of Afib. BP stable.
--- NOTE | 2018-08-16 04:00 | NUR ---
NURSE NOTES: Awake, alert, no distress. Complete bed bath done. Wound dressings reinforced. Small amt of liquid stools via rectal tube.. Afebrile. Denies pain. Trach site intact; no bleeding
[2018-08-16 05:13] LABS: BASOPHILS % (AUTO) 1.3 % (0.0-2.0); EOSINOPHILS % (AUTO) 1.2 % (0.0-3.0); HEMATOCRIT 29.2 % (37.0-47.0); HEMOGLOBIN 8.9 G/DL (12.0-16.0); LYMPHOCYTES % (AUTO) 8.4 % (20.0-45.0); MEAN CORPUSCULAR VOLUME 92 FL (80-99); MONOCYTES % (AUTO) 8.5 % (1.0-10.0); NEUTROPHILS % (AUTO) 80.6 % (45.0-75.0); PLATELET COUNT 367 K/UL (150-450); RED BLOOD COUNT 3.16 M/UL (4.20-5.40); RED CELL DISTRIBUTION WIDTH 18.3 % (11.6-14.8); WHITE BLOOD COUNT 8.5 K/UL (4.8-10.8)
[2018-08-16 05:33] LABS: ANION GAP 7 mmol/L (5-15); BLOOD UREA NITROGEN 24 mg/dL (7-18); CARBON DIOXIDE 31 MMOL/L (21-32); CHLORIDE 101 MMOL/L (98-107); CREATININE 2.5 MG/DL (0.55-1.30); POTASSIUM 3.6 MMOL/L (3.5-5.1); SODIUM 139 MMOL/L (136-145)
--- NOTE | 2018-08-16 06:28 | 48 Hour Post Anesthesia Eval ---
Post Anesthesia Evaluation Procedure: Tracheostomy Date of Evaluation: Aug 16, 2018 Time of Evaluation: 06:27 Blood Pressure Systolic: 92 0: 23 Pulse Rate: 85 Respiratory Rate: 12 - Mech Vent Airway: patent Nausea: No Vomiting: No Pain Intensity: 0 Hydration Status: adequate Cardiopulmonary Status: Stable Mental Status/LOC: patient returned to baseline Follow-up Care/Observations: 0 Post-Anesthesia Complications: 0 Follow-up care needed: N/A Jacob Esparza MD Aug 16, 2018 06:28
--- NOTE | 2018-08-16 07:18 | NUR ---
HAND-OFF: Report given to Regina Aguirre RN.
--- NOTE | 2018-08-16 07:30 | NUR ---
NURSE NOTES: Received patient from BALDO Metcalf. Patient is awake, alert and oriented, follows commands, impulsive at times. On bilateral wrist soft restraints. No skin break noted. S/p Tracheostomy with Shiley #8; no signs of bleeding, no drainage. Vent settings: AC 8, TV 450, FiO2 35, PEEP 5, saturating 99%. SR on monitor. Right nare NGT intact, NPO for possible PEG placement. Right upper arm single lumen midline intact, dressing intact, clean and dry. Left upper arm graft with bruit and thrill. Wound dressings intact, clean and dry. On P200 mattress. Rectal tube intact. Call light within reach. Bed in lowest position. Call light within reach.
--- NOTE | 2018-08-16 07:46 | NUR ---
Received Patient on Vent Settings of ACVC RR 8, VT 450, FIO2 30%, PEEP +5. Patient has Shiley 8 tracheostomy tube that is secure and patent. Slight bleeding noted because fresh trache. Pt is alert, awake, and follows commands. Bilateral rhonchi heard upon auscultation. Suction minimal amounts of thin, clear secretions. Vent plugged into red outlet. [place] at bedside.Will continue to monitor throughout the day.
[2018-08-16] MEDS: Minoxidil 2.5mg tab NG SCH ×2 (09:00→21:00)
[2018-08-16] MEDS: Vitamin D 1000 IU Tab GT SCH (09:00)
[2018-08-16] MEDS: Heparin 5000 units/ml inj SUBQ SCH ×2 (09:00→21:00)
[2018-08-16] MEDS: Amiodarone 200mg tab NG SCH ×2 (09:52→21:41)
[2018-08-16] MEDS: Pantoprazole Inj IVP SCH ×2 (09:52→21:40)
[2018-08-16] MEDS: Meropenem 500 MG in NS 55 ML IVPB SCH (09:53)
--- NOTE | 2018-08-16 11:09 | Infectious Diseases Prog Note ---
Assessment/Plan Assessment/Plan A: Sepsis UTI Cellulitis of R leg, osteomyelitis Hypercapnic respiratory failure ESRD on HD DM Anemia Dementia PVD R pleural effusion Mucous plug s/o Cardiac arrest Stage IV sacral ulcer P; Continue Meropenem Subjective ROS Limited/Unobtainable: Yes Respiratory: Reports: other - had tracheostomy yesterday Genitourinary: Reports: other - removed NG tube Musculoskeletal: Reports: pain Allergies: Coded Allergies: No Known Allergies (Unverified , 07/25/18) Objective Vital Signs Last 24 Hour Vital Signs Date Time Temp Pulse Resp B/P (MAP) Pulse Ox O2 Delivery O2 Flow Rate FiO2 08/16/18 10:00 83 17 111/77 (88) 100 08/16/18 09:00 87 18 105/15 (45) 94 08/16/18 08:49 85 18 35 08/16/18 08:23 85 08/16/18 08:00 98.3 85 18 104/12 (42) 94 08/16/18 07:25 84 16 35 08/16/18 07:04 89 20 116/23 (54) 95 08/16/18 06:28 85 12 08/16/18 06:07 85 12 92/23 (46) 99 08/16/18 05:03 98 13 35 08/16/18 05:00 90 20 88/29 (48) 93 08/16/18 04:00 35 08/16/18 04:00 Mechanical Ventilator Mechanical Ventilator Mechanical Ventilator 08/16/18 04:00 98.9 78 16 102/11 (41) 94 08/16/18 04:00 78 08/16/18 03:00 81 18 107/12 (43) 96 08/16/18 02:55 84 20 35 08/16/18 02:00 84 18 102/23 (49) 94 08/16/18 01:08 85 16 35 08/16/18 01:00 84 16 102/42 (62) 99 08/16/18 00:00 Mechanical Ventilator Mechanical Ventilator Mechanical Ventilator 08/16/18 00:00 97.9 88 21 103/30 (54) 93 08/15/18 23:10 118 16 35 08/15/18 23:00 111 22 106/17 (46) 95 08/15/18 22:00 83 14 105/14 (44) 97 12/17/18 21:00 109/16 08/15/18 21:00 104 14 104/22 (49) 95 18 20:35 78 15 35 08/15/18 20:05 98.1 78 13 109/16 (47) 94 08/15/18 20:00 Mechanical Ventilator Mechanical Ventilator Mechanical Ventilator 08/15/18 20:00 78 08/15/18 20:00 35 18 19:11 81 17 35 08/15/18 19:00 74 12 101/17 (45) 93 08/15/18 18:00 Mechanical Ventilator Mechanical Ventilator Mechanical Ventilator 08/15/18 18:00 79 19 117/76 (90) 91 08/15/18 17:00 82 19 132/28 (62) 91 08/15/18 16:50 85 15 35 08/15/18 16:00 35 08/15/18 16:00 98.0 79 16 122/84 (97) 95 08/15/18 16:00 Mechanical Ventilator Mechanical Ventilator Mechanical Ventilator 08/15/18 16:00 80 08/15/18 15:30 73 18 35 08/15/18 15:00 75 18 100/39 (59) 91 08/15/18 14:27 98 20 98 08/15/18 14:00 35 08/15/18 14:00 77 20 98/30 (52) 91 08/15/18 13:57 81 20 35 08/15/18 12:34 80 15 35 08/15/18 12:00 98.4 80 17 118/20 (52) 95 08/15/18 12:00 79 08/15/18 12:00 35 08/15/18 12:00 Mechanical Ventilator Mechanical Ventilator Mechanical Ventilator Height (Feet): 5 Height (Inches): 2.00 Weight (Pounds): 134 General Appearance: no acute distress HEENT: status post trach Respiratory/Chest: lungs clear, other - on ventilator Cardiovascular: normal rate, other - R arm PICC line Abdomen: soft, non tender, other - rectal tube Extremities: no edema Skin: ulcers Neurologic/Psychiatric: alert, responsive Musculoskeletal: atrophy Laboratory Tests Test 08/16/18 05:00 White Blood Count 8.5 K/UL (4.8-10.8) Red Blood Count 3.16 M/UL (4.20-5.40) L Hemoglobin 8.9 G/DL (12.0-16.0) L Hematocrit 29.2 % (37.0-47.0) L Mean Corpuscular Volume 92 FL (80-99) Mean Corpuscular Hemoglobin 28.3 PG (27.0-31.0) Mean Corpuscular Hemoglobin Concent 30.6 G/DL (32.0-36.0) L Red Cell Distribution Width 18.3 % (11.6-14.8) H Platelet Count 367 K/UL (150-450) Mean Platelet Volume 6.6 FL (6.5-10.1) Neutrophils (%) (Auto) 80.6 % (45.0-75.0) H Lymphocytes (%) (Auto) 8.4 % (20.0-45.0) L Monocytes (%) (Auto) 8.5 % (1.0-10.0) Eosinophils (%) (Auto) 1.2 % (0.0-3.0) Basophils (%) (Auto) 1.3 % (0.0-2.0) Prothrombin Time 10.4 SEC (9.30-11.50) Prothromb Time International Ratio 1.0 (0.9-1.1) Activated Partial Thromboplast Time 37 SEC (23-33) H Sodium Level 139 MMOL/L (136-145) Potassium Level 3.6 MMOL/L (3.5-5.1) Chloride Level 101 MMOL/L (98-107) Carbon Dioxide Level 31 MMOL/L (21-32) Anion Gap 7 mmol/L (5-15) Blood Urea Nitrogen 24 mg/dL (7-18) H Creatinine 2.5 MG/DL (0.55-1.30) H Estimat Glomerular Filtration Rate mL/min (>60) Glucose Level 69 MG/DL (74-106) L Calcium Level 8.0 MG/DL (8.5-10.1) L Current Medications Medications (Trade) Dose Ordered Sig/Renetta Route PRN Reason Start Time Stop Time Status Last Admin Dose Admin Acetaminophen (Tylenol) 650 mg Q6H PRN ORAL Mild Pain/Temp > 100.5 08/02/18 14:15 09/01/18 14:14 08/10/18 13:15 Amiodarone HCl (Cordarone) 200 mg EVERY 12 HOURS NG 08/06/18 21:00 09/03/18 13:59 08/16/18 09:52 Chlorhexidine Gluconate (Rylie-Hex 2%) 1 applic DAILY@2000 TOPIC 07/26/18 20:00 08/25/18 19:59 08/15/18 20:59 Collagenase (Santyl) 1 applic Q12HR TOPIC 08/10/18 21:00 09/03/18 20:59 08/16/18 09:53 Epoetin Paul (Procrit (for ESRD on dialysis)) 10,000 units WED-WED-WED SUBQ 07/27/18 21:00 08/26/18 20:59 08/15/18 21:01 Heparin Sodium (Porcine) (Heparin 5000 units/ml) 5,000 units EVERY 12 HOURS SUBQ 08/13/18 21:00 09/04/18 21:59 08/15/18 21:02 Meropenem 500 mg/ Sodium Chloride 55 ml @ 110 mls/hr DAILY IVPB 08/09/18 09:00 08/23/18 08:59 08/16/18 09:53 Minoxidil (Loniten) 5 mg Q12HR NG 07/31/18 21:00 08/30/18 20:59 08/15/18 21:00 Pantoprazole (Protonix) 40 mg Q12HR IVP 07/25/18 21:00 08/25/18 08:59 08/16/18 09:52 Vitamin D (Vitamin D) 1,000 intlu DAILY GT 08/07/18 10:00 09/06/18 09:59 08/15/18 08:16 Freedom Randolph MD Aug 16, 2018 11:09
--- NOTE | 2018-08-16 11:30 | NUR ---
NURSE NOTES: Sacral wound dressing was changed by wound care nurse. kept pt clean and dry. patient was repositioned. Patient desaturated to 80% after wound care. FiO2 increased to 100% by respiratory therapist. Currently saturating at 100%.
--- NOTE | 2018-08-16 11:35 | NUR ---
NURSE NOTES: patient pulled out NGT, reinserted NGT to right nare, taped at 60cm. pt tolerated well. KUB ordered to confirm placement.
--- NOTE | 2018-08-16 12:00 | NUR ---
NURSE NOTES: FiO2 decreased back to 35%, O2 sat 100%. No acute distress noted.
--- NOTE | 2018-08-16 12:20 | NUR ---
RADIOLOGY DEPT ABDOMEN X-RAY DONE FOR NGT PLMT.-P.DYE
--- NOTE | 2018-08-16 12:31 | Diagnostic Imaging Report ---
Indication: Post nasogastric tube placement Technique: One view of the upper abdomen Comparison: 08/10/2028 Findings: There is a nasogastric tube demonstrated, tip projected level gastric body. Visualized bowel gas appears unremarkable. Since of surgical clips are seen in the epigastric region. There is evidence of bilateral pleural fluid and a tracheostomy Impression: Satisfactory nasogastric intubation Other findings as noted
--- NOTE | 2018-08-16 12:40 | NUR ---
NURSE NOTES: confirmed NGT placement, prn tylenol given for pain.
--- NOTE | 2018-08-16 12:44 | General Progress Note ---
Progress Note Progress Note surgery: trach clean and functional good volumes trach tie in place sutures noted wound c/d/i change dressings prn thank you Reji Nails Aug 16, 2018 12:44
--- NOTE | 2018-08-16 13:09 | Pulmonology Progress Note ---
Assessment/Plan Assessment/Plan IMPRESSION: 1. Hypotension. 2. Sepsis. 3. Atrial fibrillation. 4. Bradycardia. 5. Diabetes mellitus. 6. End-stage renal disease on dialysis. 7. Left lung collapse. Resolved 8. Respiratory failure. now status post tracheostomy 9. Dysphagia. 10. Dementia. 11. Anemia 12. Pneumonia DISCUSSION: 1. Continue medications. 2. CXR improved 3. status post tracheostomy 4. Central access 4. For G-tube today Andres Allan M.D. Subjective Interval Events: status post tracheostomy. For G-tube today. Constitutional: Reports: no symptoms HEENT: Repors: no symptoms Respiratory: Reports: no symptoms Cardiovascular: Reports: no symptoms Gastrointestinal/Abdominal: Reports: no symptoms Genitourinary: Reports: no symptoms Neurologic: Reports: no symptoms Allergies: Coded Allergies: No Known Allergies (Unverified , 07/25/18) Objective Last 24 Hour Vital Signs Date Time Temp Pulse Resp B/P (MAP) Pulse Ox O2 Delivery O2 Flow Rate FiO2 08/16/18 13:00 81 20 94/24 (47) 100 08/16/18 12:57 35 08/16/18 12:55 78 16 35 08/16/18 12:10 84 08/16/18 12:00 98.8 85 18 118/23 (54) 100 08/16/18 12:00 Mechanical Ventilator Mechanical Ventilator Mechanical Ventilator 08/16/18 11:30 100 08/16/18 11:25 88 25 100 08/16/18 11:00 111 20 135/34 (67) 100 08/16/18 10:00 83 17 111/77 (88) 100 08/16/18 09:00 87 18 105/15 (45) 94 08/16/18 08:49 85 18 35 08/16/18 08:23 85 08/16/18 08:00 Mechanical Ventilator Mechanical Ventilator Mechanical Ventilator 08/16/18 08:00 98.3 85 18 104/12 (42) 94 08/16/18 08:00 35 08/16/18 07:25 84 16 35 08/16/18 07:04 89 20 116/23 (54) 95 12/18/18 06:28 85 12 18 06:07 85 12 92/23 (46) 99 08/16/18 05:03 98 13 35 08/16/18 05:00 90 20 88/29 (48) 93 18 04:00 35 08/16/18 04:00 Mechanical Ventilator Mechanical Ventilator Mechanical Ventilator 08/16/18 04:00 98.9 78 16 102/11 (41) 94 08/16/18 04:00 78 08/16/18 03:00 81 18 107/12 (43) 96 08/16/18 02:55 84 20 35 08/16/18 02:00 84 18 102/23 (49) 94 08/16/18 01:08 85 16 35 08/16/18 01:00 84 16 102/42 (62) 99 08/16/18 00:00 Mechanical Ventilator Mechanical Ventilator Mechanical Ventilator 08/16/18 00:00 97.9 88 21 103/30 (54) 93 08/15/18 23:10 118 16 35 08/15/18 23:00 111 22 106/17 (46) 95 18 22:00 83 14 105/14 (44) 97 18 21:00 109/16 08/15/18 21:00 104 14 104/22 (49) 95 18 20:35 78 15 35 18 20:05 98.1 78 13 109/16 (47) 94 18 20:00 Mechanical Ventilator Mechanical Ventilator Mechanical Ventilator 08/15/18 20:00 78 18 20:00 35 18 19:11 81 17 35 18 19:00 74 12 101/17 (45) 93 18 18:00 Mechanical Ventilator Mechanical Ventilator Mechanical Ventilator 08/15/18 18:00 79 19 117/76 (90) 91 18 17:00 82 19 132/28 (62) 91 18 16:50 85 15 35 18 16:00 35 18 16:00 98.0 79 16 122/84 (97) 95 08/15/18 16:00 Mechanical Ventilator Mechanical Ventilator Mechanical Ventilator 08/15/18 16:00 80 18 15:30 73 18 35 08/15/18 15:00 75 18 100/39 (59) 91 08/15/18 14:27 98 20 98 08/15/18 14:00 35 08/15/18 14:00 77 20 98/30 (52) 91 08/15/18 13:57 81 20 35 Intake and Output 08/15/18 08/16/18 19:00 07:00 Intake Total 2555 ml 90 ml Output Total 30 ml 30 ml Balance 2525 ml 60 ml Intake Oral 0 ml IV Total 55 ml 60 ml Hemodialysis 2500 ml Other 30 ml Stool Total 30 ml 30 ml General Appearance: no acute distress HEENT: normocephalic, status post trach Respiratory/Chest: chest wall non-tender, lungs clear Cardiovascular: normal peripheral pulses, normal rate Abdomen: normal bowel sounds, soft, non tender Laboratory Tests 08/16/18 05:00: White Blood Count 8.5, Red Blood Count 3.16L, Hemoglobin 8.9L, Hematocrit 29.2L , Mean Corpuscular Volume 92, Mean Corpuscular Hemoglobin 28.3, Mean Corpuscular Hemoglobin Concent 30.6L, Red Cell Distribution Width 18.3H, Platelet Count 367, Mean Platelet Volume 6.6, Neutrophils (%) (Auto) 80.6H, Lymphocytes (%) (Auto) 8.4L, Monocytes (%) (Auto) 8.5, Eosinophils (%) (Auto) 1.2, Basophils (%) (Auto) 1.3, Prothrombin Time 10.4, Prothromb Time International Ratio 1.0, Activated Partial Thromboplast Time 37H, Sodium Level 139, Potassium Level 3.6, Chloride Level 101, Carbon Dioxide Level 31, Anion Gap 7, Blood Urea Nitrogen 24H, Creatinine 2.5H, Estimat Glomerular Filtration Rate , Glucose Level 69L, Calcium Level 8.0L Current Medications Medications (Trade) Dose Ordered Sig/Renetta Route PRN Reason Start Time Stop Time Status Last Admin Dose Admin Acetaminophen (Tylenol) 650 mg Q6H PRN ORAL Mild Pain/Temp > 100.5 08/02/18 14:15 09/01/18 14:14 08/16/18 12:36 Amiodarone HCl (Cordarone) 200 mg EVERY 12 HOURS NG 08/06/18 21:00 09/03/18 13:59 08/16/18 09:52 Chlorhexidine Gluconate (Rylie-Hex 2%) 1 applic DAILY@2000 TOPIC 07/26/18 20:00 08/25/18 19:59 08/15/18 20:59 Collagenase (Santyl) 1 applic Q12HR TOPIC 08/10/18 21:00 09/03/18 20:59 08/16/18 09:53 Epoetin Paul (Procrit (for ESRD on dialysis)) 10,000 units WED-WED-WED SUBQ 07/27/18 21:00 08/26/18 20:59 08/15/18 21:01 Heparin Sodium (Porcine) (Heparin 5000 units/ml) 5,000 units EVERY 12 HOURS SUBQ 08/13/18 21:00 09/04/18 21:59 08/15/18 21:02 Meropenem 500 mg/ Sodium Chloride 55 ml @ 110 mls/hr DAILY IVPB 08/09/18 09:00 08/23/18 08:59 08/16/18 09:53 Minoxidil (Loniten) 5 mg Q12HR NG 07/31/18 21:00 08/30/18 20:59 08/15/18 21:00 Pantoprazole (Protonix) 40 mg Q12HR IVP 07/25/18 21:00 08/25/18 08:59 08/16/18 09:52 Vitamin D (Vitamin D) 1,000 intlu DAILY GT 08/07/18 10:00 09/06/18 09:59 08/15/18 08:16 Andres Allan MD Aug 16, 2018 13:09
--- NOTE | 2018-08-16 14:38 | Nephrology Progress Note ---
Assessment/Plan Assessment Seee below Plan MOF resolving. Sepsis due to infected diabetic ulcers. On IV Abx. Followed by ID, Vasc. Sx, Podiatry. Resolving. ESRD HD q MWF Anemia of CKD , DARRYN high dose. Transfuse PRN. A. 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 with LAE. LVEF 65% . Anticoagulate when stable. DW Dr. Butler. In and out A. Fib. Post trach. For PEG tomorrow. Referred to [facility]. See orders. Subjective Subjective On Vent. Alert. Post Trach. Son @ bedside. Objective Objective Last 24 Hour Vital Signs Date Time Temp Pulse Resp B/P (MAP) Pulse Ox O2 Delivery O2 Flow Rate FiO2 08/16/18 14:00 79 14 110/21 (50) 100 08/16/18 13:00 81 20 94/24 (47) 100 08/16/18 12:57 35 08/16/18 12:55 78 16 35 08/16/18 12:10 84 08/16/18 12:00 98.8 85 18 118/23 (54) 100 08/16/18 12:00 Mechanical Ventilator Mechanical Ventilator Mechanical Ventilator 08/16/18 11:30 100 08/16/18 11:25 88 25 100 08/16/18 11:00 111 20 135/34 (67) 100 08/16/18 10:00 83 17 111/77 (88) 100 08/16/18 09:00 87 18 105/15 (45) 94 08/16/18 08:49 85 18 35 08/16/18 08:23 85 08/16/18 08:00 Mechanical Ventilator Mechanical Ventilator Mechanical Ventilator 08/16/18 08:00 98.3 85 18 104/12 (42) 94 08/16/18 08:00 35 08/16/18 07:25 84 16 35 08/16/18 07:04 89 20 116/23 (54) 95 08/16/18 06:28 85 12 08/16/18 06:07 85 12 92/23 (46) 99 08/16/18 05:03 98 13 35 08/16/18 05:00 90 20 88/29 (48) 93 08/16/18 04:00 35 08/16/18 04:00 Mechanical Ventilator Mechanical Ventilator Mechanical Ventilator 08/16/18 04:00 98.9 78 16 102/11 (41) 94 12/18/18 04:00 78 08/16/18 03:00 81 18 107/12 (43) 96 08/16/18 02:55 84 20 35 08/16/18 02:00 84 18 102/23 (49) 94 08/16/18 01:08 85 16 35 08/16/18 01:00 84 16 102/42 (62) 99 08/16/18 00:00 Mechanical Ventilator Mechanical Ventilator Mechanical Ventilator 08/16/18 00:00 97.9 88 21 103/30 (54) 93 08/15/18 23:10 118 16 35 08/15/18 23:00 111 22 106/17 (46) 95 08/15/18 22:00 83 14 105/14 (44) 97 08/15/18 21:00 109/16 08/15/18 21:00 104 14 104/22 (49) 95 08/15/18 20:35 78 15 35 08/15/18 20:05 98.1 78 13 109/16 (47) 94 08/15/18 20:00 Mechanical Ventilator Mechanical Ventilator Mechanical Ventilator 08/15/18 20:00 78 18 20:00 35 18 19:11 81 17 35 18 19:00 74 12 101/17 (45) 93 18 18:00 Mechanical Ventilator Mechanical Ventilator Mechanical Ventilator 08/15/18 18:00 79 19 117/76 (90) 91 08/15/18 17:00 82 19 132/28 (62) 91 08/15/18 16:50 85 15 35 08/15/18 16:00 35 08/15/18 16:00 98.0 79 16 122/84 (97) 95 18 16:00 Mechanical Ventilator Mechanical Ventilator Mechanical Ventilator 08/15/18 16:00 80 18 15:30 73 18 35 08/15/18 15:00 75 18 100/39 (59) 91 Intake and Output 08/15/18 08/16/18 19:00 07:00 Intake Total 2555 ml 90 ml Output Total 30 ml 30 ml Balance 2525 ml 60 ml Intake Oral 0 ml IV Total 55 ml 60 ml Hemodialysis 2500 ml Other 30 ml Stool Total 30 ml 30 ml Laboratory Tests 08/16/18 05:00: White Blood Count 8.5, Red Blood Count 3.16L, Hemoglobin 8.9L, Hematocrit 29.2L , Mean Corpuscular Volume 92, Mean Corpuscular Hemoglobin 28.3, Mean Corpuscular Hemoglobin Concent 30.6L, Red Cell Distribution Width 18.3H, Platelet Count 367, Mean Platelet Volume 6.6, Neutrophils (%) (Auto) 80.6H, Lymphocytes (%) (Auto) 8.4L, Monocytes (%) (Auto) 8.5, Eosinophils (%) (Auto) 1.2, Basophils (%) (Auto) 1.3, Prothrombin Time 10.4, Prothromb Time International Ratio 1.0, Activated Partial Thromboplast Time 37H, Sodium Level 139, Potassium Level 3.6, Chloride Level 101, Carbon Dioxide Level 31, Anion Gap 7, Blood Urea Nitrogen 24H, Creatinine 2.5H, Estimat Glomerular Filtration Rate , Glucose Level 69L, Calcium Level 8.0L Height (Feet): 5 Height (Inches): 2.00 Weight (Pounds): 134 Objective On vent. Trach clean. Cv IRR/IRR Lungs B ronchi. Abd SNT. BS + E Rt. foot diabetic ulcers Chase He MD Aug 16, 2018 14:38
[2018-08-16] MEDS ORDERED: Heparin Sod 1000 units/ml 10ml IV PRN (14:45)
--- NOTE | 2018-08-16 14:49 | NUR ---
NURSE NOTES: Called [facility] for HD order for tomorrow, 08-17-18.
--- NOTE | 2018-08-16 15:00 | NUR ---
NURSE NOTES: Resumed tube feeding, nepro @15cc/hr via right NGT per order. no residual. pt's son at bedside.
--- NOTE | 2018-08-16 15:21 | GI Progress Note ---
Assessment/Plan Problems: (1) Encounter for PEG (percutaneous endoscopic gastrostomy) ICD Codes: Z43.1 - Encounter for attention to gastrostomy SNOMED: 242665358, 248476494 (2) Severe malnutrition ICD Codes: E43 - Unspecified severe protein-calorie malnutrition SNOMED: 08593608 (3) Dehydration ICD Codes: E86.0 - Dehydration SNOMED: 40782263 Status: unchanged Status Narrative Discussed with Dr. Cox Assessment/Plan Assessment - Dysphagia - Resp failure - ESRD - Anemia Recommendations Patient scheduled for PEG tomorrow -Continue tube feedings, n.p.o. at midnight. -Hold all blood thinners tonight We will follow with additional recommendations post procedure The patient was seen and examined at bedside and all new and available data was reviewed in the patients chart. I agree with the above findings, impression and plan. (Patient seen earlier today. Signature stamp does not reflect patient encounter time.). - Oc Cox MD Subjective Subjective limited Objective Last 24 Hour Vital Signs Date Time Temp Pulse Resp B/P (MAP) Pulse Ox O2 Delivery O2 Flow Rate FiO2 08/16/18 14:53 84 19 35 08/16/18 14:00 79 14 110/21 (50) 100 08/16/18 13:00 81 20 94/24 (47) 100 08/16/18 12:57 35 08/16/18 12:55 78 16 35 08/16/18 12:10 84 08/16/18 12:00 98.8 85 18 118/23 (54) 100 08/16/18 12:00 Mechanical Ventilator Mechanical Ventilator Mechanical Ventilator 08/16/18 11:30 100 08/16/18 11:25 88 25 100 08/16/18 11:00 111 20 135/34 (67) 100 08/16/18 10:00 83 17 111/77 (88) 100 08/16/18 09:00 87 18 105/15 (45) 94 08/16/18 08:49 85 18 35 08/16/18 08:23 85 08/16/18 08:00 Mechanical Ventilator Mechanical Ventilator Mechanical Ventilator 08/16/18 08:00 98.3 85 18 104/12 (42) 94 08/16/18 08:00 35 08/16/18 07:25 84 16 35 08/16/18 07:04 89 20 116/23 (54) 95 18 06:28 85 12 18 06:07 85 12 92/23 (46) 99 08/16/18 05:03 98 13 35 08/16/18 05:00 90 20 88/29 (48) 93 18 04:00 35 08/16/18 04:00 Mechanical Ventilator Mechanical Ventilator Mechanical Ventilator 08/16/18 04:00 98.9 78 16 102/11 (41) 94 08/16/18 04:00 78 08/16/18 03:00 81 18 107/12 (43) 96 08/16/18 02:55 84 20 35 08/16/18 02:00 84 18 102/23 (49) 94 08/16/18 01:08 85 16 35 08/16/18 01:00 84 16 102/42 (62) 99 08/16/18 00:00 Mechanical Ventilator Mechanical Ventilator Mechanical Ventilator 08/16/18 00:00 97.9 88 21 103/30 (54) 93 08/15/18 23:10 118 16 35 08/15/18 23:00 111 22 106/17 (46) 95 08/15/18 22:00 83 14 105/14 (44) 97 18 21:00 109/16 08/15/18 21:00 104 14 104/22 (49) 95 18 20:35 78 15 35 18 20:05 98.1 78 13 109/16 (47) 94 18 20:00 Mechanical Ventilator Mechanical Ventilator Mechanical Ventilator 08/15/18 20:00 78 18 20:00 35 18 19:11 81 17 35 18 19:00 74 12 101/17 (45) 93 18 18:00 Mechanical Ventilator Mechanical Ventilator Mechanical Ventilator 18 18:00 79 19 117/76 (90) 91 18 17:00 82 19 132/28 (62) 91 18 16:50 85 15 35 18 16:00 35 18 16:00 98.0 79 16 122/84 (97) 95 08/15/18 16:00 Mechanical Ventilator Mechanical Ventilator Mechanical Ventilator 08/15/18 16:00 80 08/15/18 15:30 73 18 35 Intake and Output 08/15/18 08/16/18 19:00 07:00 Intake Total 2555 ml 90 ml Output Total 30 ml 30 ml Balance 2525 ml 60 ml Intake Oral 0 ml IV Total 55 ml 60 ml Hemodialysis 2500 ml Other 30 ml Stool Total 30 ml 30 ml Laboratory Tests Test 08/16/18 05:00 White Blood Count 8.5 K/UL (4.8-10.8) Red Blood Count 3.16 M/UL (4.20-5.40) L Hemoglobin 8.9 G/DL (12.0-16.0) L Hematocrit 29.2 % (37.0-47.0) L Mean Corpuscular Volume 92 FL (80-99) Mean Corpuscular Hemoglobin 28.3 PG (27.0-31.0) Mean Corpuscular Hemoglobin Concent 30.6 G/DL (32.0-36.0) L Red Cell Distribution Width 18.3 % (11.6-14.8) H Platelet Count 367 K/UL (150-450) Mean Platelet Volume 6.6 FL (6.5-10.1) Neutrophils (%) (Auto) 80.6 % (45.0-75.0) H Lymphocytes (%) (Auto) 8.4 % (20.0-45.0) L Monocytes (%) (Auto) 8.5 % (1.0-10.0) Eosinophils (%) (Auto) 1.2 % (0.0-3.0) Basophils (%) (Auto) 1.3 % (0.0-2.0) Prothrombin Time 10.4 SEC (9.30-11.50) Prothromb Time International Ratio 1.0 (0.9-1.1) Activated Partial Thromboplast Time 37 SEC (23-33) H Sodium Level 139 MMOL/L (136-145) Potassium Level 3.6 MMOL/L (3.5-5.1) Chloride Level 101 MMOL/L (98-107) Carbon Dioxide Level 31 MMOL/L (21-32) Anion Gap 7 mmol/L (5-15) Blood Urea Nitrogen 24 mg/dL (7-18) H Creatinine 2.5 MG/DL (0.55-1.30) H Estimat Glomerular Filtration Rate mL/min (>60) Glucose Level 69 MG/DL (74-106) L Calcium Level 8.0 MG/DL (8.5-10.1) L Height (Feet): 5 Height (Inches): 2.00 Weight (Pounds): 134 General Appearance: WD/WN, no apparent distress, alert Cardiovascular: normal rate Respiratory/Chest: normal breath sounds, no respiratory distress Abdominal Exam: normal bowel sounds, non tender, soft Extremities: normal range of motion, non-tender Rita Quintanilla NP Aug 16, 2018 15:21
--- NOTE | 2018-08-16 16:00 | NUR ---
NURSE NOTES: patient was repositioned. oral care provided. No acute distress noted at this time.
--- NOTE | 2018-08-16 17:30 | NUR ---
NURSE NOTES: Pt's rectal tube was out. Pt had diarrhea x1, pt was cleaned, kept clean and dry. Wound dressings were soiled. changed dressing. Patient tolerated well. pt's son at bedside.
--- NOTE | 2018-08-16 19:18 | NUR ---
HAND-OFF: Report given to Huan Mac.
--- NOTE | 2018-08-16 19:19 | NUR ---
NURSE NOTES: Endorsement received from Regina ku RN. Patient awake, able to communicated by nodding or shaking head. Trache to vent Shiley 8.0 AC 8 Vt 450 PEEP 5 35% FiO2. NGT at right nare, ongoing feeding Nepro 15ml/hr, goal of 30 ml/hr. No residual. Placement rechecked per auscultation. Right upper arm midline. On p200 mattress. Bilateral soft wrist restraints present. Skin warm and dry. Head of bed elevated. Bed locked and in low position.
--- NOTE | 2018-08-16 21:00 | NUR ---
NURSE NOTES: Patient awake. Watching tv. No shortness of breath.
[2018-08-16] MEDS: Albuterol/Ipratropium 3ml neb HHN PRN (21:33)
[2018-08-16] MEDS: Dyna-Hex 2% Top Sol 2oz TOPIC SCH (21:40)
--- NOTE | 2018-08-16 23:00 | NUR ---
NURSE NOTES: Patient repositioned. Secretions suctioned.
[2018-08-17] VITALS (24 sets, daily range): BP systolic 90–136; BP diastolic 12–51
--- NOTE | 2018-08-17 | NUR ---
NURSE NOTES: Tube feeding turned off, on NPO for PEG insertion in the morning.
--- NOTE | 2018-08-17 02:00 | NUR ---
NURSE NOTES: Patient passed liquid brown stool. Rectal tube inserted. Bed bath, change of dressings, oral care done.
--- NOTE | 2018-08-17 04:00 | NUR ---
NURSE NOTES: Patient awake, vital signs stable.
[2018-08-17 05:37] LABS: BASOPHILS % (AUTO) 0.7 % (0.0-2.0); EOSINOPHILS % (AUTO) 0.5 % (0.0-3.0); HEMATOCRIT 28.7 % (37.0-47.0); HEMOGLOBIN 8.8 G/DL (12.0-16.0); LYMPHOCYTES % (AUTO) 4.8 % (20.0-45.0); MEAN CORPUSCULAR VOLUME 96 FL (80-99); MONOCYTES % (AUTO) 9.8 % (1.0-10.0); NEUTROPHILS % (AUTO) 84.1 % (45.0-75.0); PLATELET COUNT 451 K/UL (150-450); RED CELL DISTRIBUTION WIDTH 18.9 % (11.6-14.8); WHITE BLOOD COUNT 12.6 K/UL (4.8-10.8)
--- NOTE | 2018-08-17 06:00 | NUR ---
NURSE NOTES: Patient asleep at this time. Appears comfortable. Repositioned
--- NOTE | 2018-08-17 06:40 | Anethesia Preoperative Eval ---
Anesthesia Pre-op PMH/ROS General Date of Evaluation: Aug 17, 2018 Time of Evaluation: 06:33 Anesthesiologist: bailey ASA Score: ASA 4 Mallampati Score Class I : Soft palate, uvula, fauces, pillars visible Class II: Soft palate, uvula, fauces visible Class III: Soft palate, base of uvula visible Class IV: Only hard plate visible Mallampati Classification: Class III - Intubated on vent Surgeon: marleny Diagnosis: dysphagia, severe malnutrition Surgical Procedure: peg placement Anesthesia History: none Social History: smoking - nonsmoker Family History: no anesthesia problems Allergies: Coded Allergies: No Known Allergies (Unverified , 07/25/18) Medications: see eMAR Patient NPO?: Yes NPO Date: Aug 15, 2018 NPO Time: 0000 Past Medical History Cardiovascular: Reports: HTN, arrhythmia Pulmonary: Reports: COPD, other - bipap Gastrointestinal/Genitourinary: Reports: GERD, ESRD, other - pyelonephritis, nephrectomy, uti, Neurologic/Psychiatric: Reports: dementia, depression/anxiety, other - ams Endocrine: Reports: DM Hematology/Immune: Reports: other - sepsis, cancer Musculoskeletal/Integumentary: Reports: other - bilateral knee sx PSxH Narrative: tracheostomy, nephrectomy, cholecystectomy, bilateral knee sx Anesthesia Pre-op Phys. Exam Physician Exam Last Vital Signs Date Time Temp Pulse Resp B/P (MAP) Pulse Ox O2 Delivery O2 Flow Rate FiO2 08/17/18 06:00 90 15 107/12 (43) 95 08/17/18 05:01 35 08/17/18 04:00 98.1 08/17/18 04:00 Mechanical Ventilator Mechanical Ventilator Mechanical Ventilator 08/08/18 08:00 12.0 15.0 12.0 Constitutional: NAD Neurologic: CN 2-12 intact Cardiovascular: other - tracheostomy, ventilator dependent Respiratory: CTA Gastrointestinal: S/NT/ND Airway Exam Mallampati Score: Class III MO: limited Neck: stiff tracheostomy TMD: 2fb ROM: limited Teeth: missing Anesthesia Pre-op A/P Labs Hematology Test 08/17/18 04:00 White Blood Count 12.6 K/UL (4.8-10.8) H Red Blood Count 3.00 M/UL (4.20-5.40) L Hemoglobin 8.8 G/DL (12.0-16.0) L Hematocrit 28.7 % (37.0-47.0) L Mean Corpuscular Volume 96 FL (80-99) Mean Corpuscular Hemoglobin 29.5 PG (27.0-31.0) Mean Corpuscular Hemoglobin Concent 30.8 G/DL (32.0-36.0) L Red Cell Distribution Width 18.9 % (11.6-14.8) H Platelet Count 451 K/UL (150-450) H Mean Platelet Volume 6.7 FL (6.5-10.1) Neutrophils (%) (Auto) 84.1 % (45.0-75.0) H Lymphocytes (%) (Auto) 4.8 % (20.0-45.0) L Monocytes (%) (Auto) 9.8 % (1.0-10.0) Eosinophils (%) (Auto) 0.5 % (0.0-3.0) Basophils (%) (Auto) 0.7 % (0.0-2.0) Coagulation Test 08/17/18 04:00 Prothrombin Time 10.7 SEC (9.30-11.50) Prothromb Time International Ratio 1.0 (0.9-1.1) Activated Partial Thromboplast Time 36 SEC (23-33) H Chemistry Test 08/17/18 04:00 Sodium Level Pending Potassium Level Pending Chloride Level Pending Carbon Dioxide Level Pending Blood Urea Nitrogen Pending Creatinine Pending Estimat Glomerular Filtration Rate Pending Glucose Level Pending Calcium Level Pending Total Bilirubin Pending Aspartate Amino Transf (AST/SGOT) Pending Alanine Aminotransferase (ALT/SGPT) Pending Alkaline Phosphatase Pending Total Protein Pending Albumin Pending Globulin Pending Risk Assessment & Plan Assessment: [email or web address] Plan: mac Status Change Before Surgery: No Pre-Antibiotics Drug: Jessie Stokes MD Aug 17, 2018 06:40
[2018-08-17] MEDS ORDERED: fentaNYL 100 mcg/2 mL IV PRN (06:45)
[2018-08-17] MEDS ORDERED: Midazolam 2mg/2ml Inj IVP PRN (06:45)
[2018-08-17] MEDS ORDERED: DiphenhydrAMINE 50mg/ml Inj IVP PRN (06:45)
[2018-08-17] MEDS ORDERED: Atropine Inj 1mg/10ml Syr IV PRN (06:45)
--- NOTE | 2018-08-17 07:16 | NUR ---
RESPIRATORY NOTE: Received pt on trache size 8 Shiley, cuffed with current vent settings: AC 8- 450ml-35%-peep of 5, saturates at 98%., tachycardia HR 104, RR 20bpm. Pt is stable, no SOB or acute resp distress noted. Alarms are set and audible, vent is plugged into the red outlet, and ambu bag is at bedside. Will continue to monitor pt.
--- NOTE | 2018-08-17 07:17 | NUR ---
HAND-OFF: Report given to BALDO Tariq per SBAR.
[2018-08-17 07:34] LABS: ALANINE AMINOTRANSFERASE 9 U/L (12-78); ALBUMIN 1.6 G/DL (3.4-5.0); ALBUMIN/GLOBULIN RATIO 0.3 (1.0-2.7); ALKALINE PHOSPHATASE 101 U/L (46-116); ANION GAP 14 mmol/L (5-15); ASPARTATE AMINO TRANSFERASE 18 U/L (15-37); BILIRUBIN,TOTAL 0.4 MG/DL (0.2-1.0); BLOOD UREA NITROGEN 30 mg/dL (7-18); CARBON DIOXIDE 26 MMOL/L (21-32); CHLORIDE 101 MMOL/L (98-107); POTASSIUM 3.2 MMOL/L (3.5-5.1); SODIUM 141 MMOL/L (136-145)
[2018-08-17] MEDS: Vitamin D 1000 IU Tab GT SCH (07:50)
[2018-08-17] MEDS: Pantoprazole Inj IVP SCH ×2 (07:51→21:01)
[2018-08-17] MEDS: Minoxidil 2.5mg tab NG SCH ×2 (07:51→21:01)
[2018-08-17] MEDS: Amiodarone 200mg tab NG SCH ×2 (07:51→21:01)
[2018-08-17] MEDS: Heparin 5000 units/ml inj SUBQ SCH ×2 (07:52→21:02)
[2018-08-17] MEDS: Meropenem 500 MG in NS 55 ML IVPB SCH (07:52)
--- NOTE | 2018-08-17 08:00 | NUR ---
NURSE NOTES: Endorsement received from BALDO Mac. Patient awake, able to communicated by nodding or shaking head. Trache to vent Shiley 8.0 AC 8 Vt 450 PEEP 5 35% FiO2. NGT at right nare, ongoing feeding Nepro on hold due to scheduled PEG placement this AM. Right upper arm midline. On p200 mattress. Bilateral soft wrist restraints present. Skin warm and dry. Head of bed elevated. Bed locked and in low position. Safety measures in place. Will continue to monitor.
--- NOTE | 2018-08-17 08:52 | Pre-Procedure Note/Attestation ---
Pre-Procedure Note/Attestation Complete Prior to Procedure Planned Procedure: not applicable Procedure Narrative: egd/peg Indications for Procedure Pre-Operative Diagnosis: dysphagia Attestation I attest that I discussed the nature of the procedure; its benefits; risks and complications; and alternatives (and the risks and benefits of such alternatives ), prior to the procedure, with the patient (or the patient's legal technical services representative). I attest that, if there was a reasonable possibility of needing a blood transfusion, the patient (or the patient's legal technical services representative) was given the [facility] standardized written summary, pursuant to the [place] Blood Safety Act ([place] Health and Safety Code # 1645, as amended). I attest that I re-evaluated the patient just prior to the surgery and that there has been no change in the patient's H&P, except as documented below: Oc Cox MD Aug 17, 2018 08:52
--- NOTE | 2018-08-17 08:57 | Nephrology Progress Note ---
Assessment/Plan Assessment Seee below Plan MOF resolving. Sepsis due to infected diabetic ulcers. On IV Abx. Followed by ID, Vasc. Sx, Podiatry. Resolving. ESRD HD q MWF Anemia of CKD , DARRYN high dose. Transfuse PRN. A. 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 with LAE. LVEF 65% . Anticoagulate when stable. DW Dr. Butler. In and out A. Fib. Post trach. For PEG now. Referred to [facility]. See orders. Son informed me his consent for PEG. Subjective Subjective On Vent. Alert. Post Trach. Having PEG. Objective Objective Last 24 Hour Vital Signs Date Time Temp Pulse Resp B/P (MAP) Pulse Ox O2 Delivery O2 Flow Rate FiO2 08/17/18 07:16 104 20 35 08/17/18 06:00 90 15 107/12 (43) 95 08/17/18 05:01 91 17 35 08/17/18 05:00 103 19 95/41 (59) 100 08/17/18 04:00 98.1 101 16 118/18 (51) 100 08/17/18 04:00 35 08/17/18 04:00 Mechanical Ventilator Mechanical Ventilator Mechanical Ventilator 08/17/18 04:00 105 08/17/18 03:00 87 16 116/19 (51) 100 08/17/18 02:54 86 14 35 08/17/18 02:00 90 15 115/19 (51) 98 08/17/18 01:00 92 14 90/50 (63) 96 08/17/18 00:49 90 20 35 08/17/18 00:00 88 08/17/18 00:00 99 19 136/51 (79) 95 08/17/18 00:00 Mechanical Ventilator Mechanical Ventilator Mechanical Ventilator 08/17/18 00:00 35 08/16/18 23:23 92 21 35 08/16/18 23:00 90 18 101/17 (45) 96 08/16/18 22:00 95 20 90/40 (57) 96 08/16/18 21:48 94 18 96 Mechanical Ventilator 35 08/16/18 21:37 96 20 93 Mechanical Ventilator 35 08/16/18 21:24 91 21 35 08/16/18 21:00 90/19 08/16/18 21:00 91 19 100/19 (46) 96 08/16/18 20:00 98.0 89 17 101/17 (45) 98 08/16/18 20:00 77 08/16/18 20:00 Mechanical Ventilator Mechanical Ventilator Mechanical Ventilator 08/16/18 20:00 35 08/16/18 19:05 92 19 35 08/16/18 19:00 92 15 101/17 (45) 96 08/16/18 18:00 89 16 101/19 (46) 93 08/16/18 17:30 Mechanical Ventilator Mechanical Ventilator Mechanical Ventilator 08/16/18 17:14 82 19 35 08/16/18 17:00 98.4 86 16 103/15 (44) 95 08/16/18 16:11 87 08/16/18 16:00 35 08/16/18 16:00 Mechanical Ventilator Mechanical Ventilator Mechanical Ventilator 08/16/18 16:00 89 18 103/39 (60) 95 08/16/18 15:00 84 18 110/14 (46) 100 08/16/18 14:53 84 19 35 08/16/18 14:00 79 14 110/21 (50) 100 08/16/18 13:00 81 20 94/24 (47) 100 08/16/18 12:57 35 08/16/18 12:55 78 16 35 08/16/18 12:10 84 08/16/18 12:00 98.8 85 18 118/23 (54) 100 08/16/18 12:00 Mechanical Ventilator Mechanical Ventilator Mechanical Ventilator 08/16/18 11:30 100 08/16/18 11:25 88 25 100 08/16/18 11:00 111 20 135/34 (67) 100 08/16/18 10:00 83 17 111/77 (88) 100 08/16/18 09:00 87 18 105/15 (45) 94 Intake and Output 08/16/18 08/17/18 19:00 07:00 Intake Total 160 ml 135 ml Output Total 1 ml Balance 159 ml 135 ml Intake Oral 0 ml Free Water 30 ml 60 ml IV Total 55 ml Tube Feeding 75 ml 75 ml Stool Total 1 ml # Bowel Movements 1 1 Laboratory Tests 08/17/18 04:00: White Blood Count 12.6H, Red Blood Count 3.00L, Hemoglobin 8.8L, Hematocrit 28.7L, Mean Corpuscular Volume 96, Mean Corpuscular Hemoglobin 29.5, Mean Corpuscular Hemoglobin Concent 30.8L, Red Cell Distribution Width 18.9H, Platelet Count 451H, Mean Platelet Volume 6.7, Neutrophils (%) (Auto) 84.1H, Lymphocytes (%) (Auto) 4.8L, Monocytes (%) (Auto) 9.8, Eosinophils (%) (Auto) 0.5, Basophils (%) (Auto) 0.7, Prothrombin Time 10.7, Prothromb Time International Ratio 1.0, Activated Partial Thromboplast Time 36H, Sodium Level 141, Potassium Level 3.2L, Chloride Level 101, Carbon Dioxide Level 26, Anion Gap 14, Blood Urea Nitrogen 30H, Creatinine 3.0H, Estimat Glomerular Filtration Rate , Glucose Level 68L, Calcium Level 8.0L, Total Bilirubin 0.4, Aspartate Amino Transf (AST/SGOT) 18, Alanine Aminotransferase (ALT/SGPT) 9L, Alkaline Phosphatase 101, Total Protein 7.1, Albumin 1.6L, Globulin 5.5, Albumin/ Globulin Ratio 0.3L Height (Feet): 5 Height (Inches): 2.00 Weight (Pounds): 110 Objective On vent. Trach clean. Cv IRR/IRR Lungs B ronchi. Abd SNT. BS + E Rt. foot diabetic ulcers Chase He MD Aug 17, 2018 08:57
[2018-08-17] MEDS ORDERED: NS 500ML IVPB ONE (09:00)
[2018-08-17] MEDS ORDERED: Propofol 200mg/20ml IV ONE (09:00)
[2018-08-17] MEDS: D5 1/2NS 1,000 ML IV SCH (09:00)
[2018-08-17] MEDS ORDERED: Lidocaine 1% MPF 10mg/ml 5ml ONE (09:00)
[2018-08-17] MEDS ORDERED: D5 1/4NS 1000ml IV ONE (09:00)
--- NOTE | 2018-08-17 09:23 | Endoscopy Procedure Note ---
Endoscopy Procedure Note General Indication for Procedure: dysphagia Procedures Performed: EGD, PEG Operative Findings/Diagnosis: gastritis Specimen: none Pt Tolerated Procedure Well: Yes Estimated Blood Loss: none Anesthesia Anesthesiologist: bailey Anesthesia: MAC Inserted Devices Implant(s) used?: No GI Core Measures 50 yrs or older w/o bx or poly: Not Applicable 10yrs. F/U not recommended: Not Applicable Oc Cox MD Aug 17, 2018 09:23
--- NOTE | 2018-08-17 09:34 | Pulmonology Progress Note ---
Assessment/Plan Assessment/Plan IMPRESSION: 1. Hypotension. 2. Sepsis. 3. Atrial fibrillation. 4. Bradycardia. 5. Diabetes mellitus. 6. End-stage renal disease on dialysis. 7. Left lung collapse. Resolved 8. Respiratory failure. now status post tracheostomy 9. Dysphagia. 10. Dementia. 11. Anemia 12. Pneumonia DISCUSSION: 1. Continue medications. 2. CXR improved 3. status post tracheostomy 4. Central access 4. S/p G-tube today Andres Allan M.D. Subjective Interval Events: S/p PEG Constitutional: Reports: no symptoms HEENT: Repors: no symptoms Respiratory: Reports: no symptoms Cardiovascular: Reports: no symptoms Gastrointestinal/Abdominal: Reports: no symptoms Genitourinary: Reports: no symptoms Allergies: Coded Allergies: No Known Allergies (Unverified , 07/25/18) Objective Last 24 Hour Vital Signs Date Time Temp Pulse Resp B/P (MAP) Pulse Ox O2 Delivery O2 Flow Rate FiO2 08/17/18 08:58 102 21 35 08/17/18 07:16 104 20 35 08/17/18 06:00 90 15 107/12 (43) 95 08/17/18 05:01 91 17 35 08/17/18 05:00 103 19 95/41 (59) 100 08/17/18 04:00 98.1 101 16 118/18 (51) 100 08/17/18 04:00 35 08/17/18 04:00 Mechanical Ventilator Mechanical Ventilator Mechanical Ventilator 08/17/18 04:00 105 08/17/18 03:00 87 16 116/19 (51) 100 08/17/18 02:54 86 14 35 08/17/18 02:00 90 15 115/19 (51) 98 08/17/18 01:00 92 14 90/50 (63) 96 08/17/18 00:49 90 20 35 08/17/18 00:00 88 08/17/18 00:00 99 19 136/51 (79) 95 08/17/18 00:00 Mechanical Ventilator Mechanical Ventilator Mechanical Ventilator 08/17/18 00:00 35 12/18/18 23:23 92 21 35 18 23:00 90 18 101/17 (45) 96 18 22:00 95 20 90/40 (57) 96 18 21:48 94 18 96 Mechanical Ventilator 35 08/16/18 21:37 96 20 93 Mechanical Ventilator 35 18 21:24 91 21 35 18 21:00 90/19 18 21:00 91 19 100/19 (46) 96 18 20:00 98.0 89 17 101/17 (45) 98 08/16/18 20:00 77 08/16/18 20:00 Mechanical Ventilator Mechanical Ventilator Mechanical Ventilator 08/16/18 20:00 35 08/16/18 19:05 92 19 35 08/16/18 19:00 92 15 101/17 (45) 96 08/16/18 18:00 89 16 101/19 (46) 93 18 17:30 Mechanical Ventilator Mechanical Ventilator Mechanical Ventilator 08/16/18 17:14 82 19 35 08/16/18 17:00 98.4 86 16 103/15 (44) 95 08/16/18 16:11 87 08/16/18 16:00 35 08/16/18 16:00 Mechanical Ventilator Mechanical Ventilator Mechanical Ventilator 08/16/18 16:00 89 18 103/39 (60) 95 08/16/18 15:00 84 18 110/14 (46) 100 08/16/18 14:53 84 19 35 18 14:00 79 14 110/21 (50) 100 08/16/18 13:00 81 20 94/24 (47) 100 08/16/18 12:57 35 08/16/18 12:55 78 16 35 08/16/18 12:10 84 08/16/18 12:00 98.8 85 18 118/23 (54) 100 08/16/18 12:00 Mechanical Ventilator Mechanical Ventilator Mechanical Ventilator 08/16/18 11:30 100 18 11:25 88 25 100 08/16/18 11:00 111 20 135/34 (67) 100 18 10:00 83 17 111/77 (88) 100 Intake and Output 08/16/18 08/17/18 19:00 07:00 Intake Total 160 ml 135 ml Output Total 1 ml Balance 159 ml 135 ml Intake Oral 0 ml Free Water 30 ml 60 ml IV Total 55 ml Tube Feeding 75 ml 75 ml Stool Total 1 ml # Bowel Movements 1 1 General Appearance: no acute distress HEENT: normocephalic, status post trach Respiratory/Chest: chest wall non-tender, lungs clear Cardiovascular: normal peripheral pulses, regular rhythm Laboratory Tests 08/17/18 04:00: White Blood Count 12.6H, Red Blood Count 3.00L, Hemoglobin 8.8L, Hematocrit 28.7L, Mean Corpuscular Volume 96, Mean Corpuscular Hemoglobin 29.5, Mean Corpuscular Hemoglobin Concent 30.8L, Red Cell Distribution Width 18.9H, Platelet Count 451H, Mean Platelet Volume 6.7, Neutrophils (%) (Auto) 84.1H, Lymphocytes (%) (Auto) 4.8L, Monocytes (%) (Auto) 9.8, Eosinophils (%) (Auto) 0.5, Basophils (%) (Auto) 0.7, Prothrombin Time 10.7, Prothromb Time International Ratio 1.0, Activated Partial Thromboplast Time 36H, Sodium Level 141, Potassium Level 3.2L, Chloride Level 101, Carbon Dioxide Level 26, Anion Gap 14, Blood Urea Nitrogen 30H, Creatinine 3.0H, Estimat Glomerular Filtration Rate , Glucose Level 68L, Calcium Level 8.0L, Total Bilirubin 0.4, Aspartate Amino Transf (AST/SGOT) 18, Alanine Aminotransferase (ALT/SGPT) 9L, Alkaline Phosphatase 101, Total Protein 7.1, Albumin 1.6L, Globulin 5.5, Albumin/ Globulin Ratio 0.3L Current Medications Medications (Trade) Dose Ordered Sig/Renetta Route PRN Reason Start Time Stop Time Status Last Admin Dose Admin Acetaminophen (Tylenol) 650 mg Q6H PRN ORAL Mild Pain/Temp > 100.5 08/02/18 14:15 09/01/18 14:14 08/16/18 18:45 Al Hydroxide/Mg Hydroxide (Mylanta) 15 ml Q1H PRN ORAL gi upset 08/17/18 06:45 08/17/18 15:00 Albuterol/ Ipratropium (Albuterol/ Ipratropium) 3 ml Q6H PRN HHN Shortness of Breath 08/16/18 19:15 08/21/18 19:14 08/16/18 21:33 Amiodarone HCl (Cordarone) 200 mg EVERY 12 HOURS NG 08/06/18 21:00 09/03/18 13:59 08/16/18 21:41 Atropine Sulfate (Atropine) 0.5 mg Q5M PRN IV bpm less than 45 08/17/18 06:45 08/17/18 15:00 Chlorhexidine Gluconate (Rylie-Hex 2%) 1 applic DAILY@2000 TOPIC 07/26/18 20:00 08/25/18 19:59 08/16/18 21:40 Collagenase (Santyl) 1 applic Q12HR TOPIC 08/10/18 21:00 09/03/18 20:59 08/17/18 07:52 Dextrose/Sodium Chloride 1,000 ml @ 30 mls/hr Q24H IV 08/17/18 09:00 09/16/18 08:59 Diphenhydramine HCl (Benadryl) 25 mg Q15M PRN IVP Itching 08/17/18 06:45 08/17/18 15:00 Epoetin Paul (Procrit (for ESRD on dialysis)) 10,000 units MON-WED-WED SUBQ 07/27/18 21:00 08/26/18 20:59 08/15/18 21:01 Fentanyl Citrate (Sublimaze 100 mcg/2 mL) 25 mcg Q10M PRN IV Moderate Pain (Pain Scale 4-6) 08/17/18 06:45 08/17/18 15:00 Heparin Sodium (Porcine) (Heparin 5000 units/ml) 5,000 units EVERY 12 HOURS SUBQ 08/13/18 21:00 09/04/18 21:59 08/15/18 21:02 Heparin Sodium (Porcine) (Heparin Sod 1000 units/ml 10ml) 2,000 unit ONCE PRN IV FOR HD USE 08/16/18 14:45 08/18/18 23:59 Hydralazine HCl (Apresoline) 5 mg Q30M PRN IV SBP>160 OR___/DBP>90 OR___ 08/17/18 06:45 08/17/18 15:00 Meropenem 500 mg/ Sodium Chloride 55 ml @ 110 mls/hr DAILY IVPB 08/09/18 09:00 08/23/18 08:59 08/17/18 07:52 Midazolam HCl (Versed 2mg/2ml vial) 1 mg Q15M PRN IVP For Anxiety 08/17/18 06:45 08/17/18 15:00 Minoxidil (Loniten) 5 mg Q12HR NG 07/31/18 21:00 08/30/18 20:59 08/15/18 21:00 Ondansetron HCl (Zofran) 4 mg Q1H PRN IVP Nausea & Vomiting 08/17/18 06:45 08/17/18 15:00 Pantoprazole (Protonix) 40 mg Q12HR IVP 07/25/18 21:00 08/25/18 08:59 08/16/18 21:40 Sodium Chloride 1,000 ml @ 500 mls/hr Q2H PRN IVLG sbp<90 during hd 08/16/18 14:50 08/18/18 23:59 Vitamin D (Vitamin D) 1,000 intlu DAILY GT 08/07/18 10:00 09/06/18 09:59 08/15/18 08:16 Andres Allan MD Aug 17, 2018 09:34
--- NOTE | 2018-08-17 10:00 | NUR ---
NURSE NOTES: Pt done with PEG tube placement. VSS. tolerated very well. will continue to monitor.
--- NOTE | 2018-08-17 11:05 | Infectious Diseases Prog Note ---
"Assessment/Plan Assessment/Plan antibiotics : meropenem A 1. 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 shock resolved 3. leucocytosis resolved 4. respiratory failure s/p tracheostomy 5. renal failure 6. 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 pleural effusion P 1. d/c meropenem 2. observe off antibiotics Subjective ROS Limited/Unobtainable: Yes Allergies: Coded Allergies: No Known Allergies (Unverified , 07/25/18) Objective Vital Signs Last 24 Hour Vital Signs Date Time Temp Pulse Resp B/P (MAP) Pulse Ox O2 Delivery O2 Flow Rate FiO2 08/17/18 10:00 95 15 102/33 (56) 95 08/17/18 09:00 96 15 107/12 (43) 95 08/17/18 08:58 102 21 35 08/17/18 08:00 98.1 100 16 105/25 (51) 100 08/17/18 08:00 101 08/17/18 08:00 35 08/17/18 08:00 Mechanical Ventilator Mechanical Ventilator Mechanical Ventilator 08/17/18 07:16 104 20 35 08/17/18 07:00 90 15 110/30 (56) 95 08/17/18 06:00 90 15 107/12 (43) 95 08/17/18 05:01 91 17 35 08/17/18 05:00 103 19 95/41 (59) 100 08/17/18 04:00 98.1 101 16 118/18 (51) 100 08/17/18 04:00 35 08/17/18 04:00 Mechanical Ventilator Mechanical Ventilator Mechanical Ventilator 08/17/18 04:00 105 08/17/18 03:00 87 16 116/19 (51) 100 08/17/18 02:54 86 14 35 08/17/18 02:00 90 15 115/19 (51) 98 08/17/18 01:00 92 14 90/50 (63) 96 08/17/18 00:49 90 20 35 08/17/18 00:00 88 08/17/18 00:00 99 19 136/51 (79) 95 08/17/18 00:00 Mechanical Ventilator Mechanical Ventilator Mechanical Ventilator 08/17/18 00:00 35 08/16/18 23:23 92 21 35 08/16/18 23:00 90 18 101/17 (45) 96 08/16/18 22:00 95 20 90/40 (57) 96 08/16/18 21:48 94 18 96 Mechanical Ventilator 35 08/16/18 21:37 96 20 93 Mechanical Ventilator 35 08/16/18 21:24 91 21 35 18 21:00 90/19 18 21:00 91 19 100/19 (46) 96 08/16/18 20:00 98.0 89 17 101/17 (45) 98 08/16/18 20:00 77 08/16/18 20:00 Mechanical Ventilator Mechanical Ventilator Mechanical Ventilator 08/16/18 20:00 35 08/16/18 19:05 92 19 35 08/16/18 19:00 92 15 101/17 (45) 96 08/16/18 18:00 89 16 101/19 (46) 93 08/16/18 17:30 Mechanical Ventilator Mechanical Ventilator Mechanical Ventilator 08/16/18 17:14 82 19 35 08/16/18 17:00 98.4 86 16 103/15 (44) 95 08/16/18 16:11 87 08/16/18 16:00 35 08/16/18 16:00 Mechanical Ventilator Mechanical Ventilator Mechanical Ventilator 08/16/18 16:00 89 18 103/39 (60) 95 08/16/18 15:00 84 18 110/14 (46) 100 08/16/18 14:53 84 19 35 08/16/18 14:00 79 14 110/21 (50) 100 08/16/18 13:00 81 20 94/24 (47) 100 08/16/18 12:57 35 08/16/18 12:55 78 16 35 08/16/18 12:10 84 08/16/18 12:00 98.8 85 18 118/23 (54) 100 08/16/18 12:00 Mechanical Ventilator Mechanical Ventilator Mechanical Ventilator 08/16/18 11:30 100 08/16/18 11:25 88 25 100 Height (Feet): 5 Height (Inches): 2.00 Weight (Pounds): 110 HEENT: status post trach Respiratory/Chest: lungs clear Cardiovascular: normal rate, regular rhythm, no gallop/murmur Abdomen: soft, non tender Extremities: no edema, other - right arm PICC Laboratory Tests Test 08/17/18 04:00 White Blood Count 12.6 K/UL (4.8-10.8) H Red Blood Count 3.00 M/UL (4.20-5.40) L Hemoglobin 8.8 G/DL (12.0-16.0) L Hematocrit 28.7 % (37.0-47.0) L Mean Corpuscular Volume 96 FL (80-99) Mean Corpuscular Hemoglobin 29.5 PG (27.0-31.0) Mean Corpuscular Hemoglobin Concent 30.8 G/DL (32.0-36.0) L Red Cell Distribution Width 18.9 % (11.6-14.8) H Platelet Count 451 K/UL (150-450) H Mean Platelet Volume 6.7 FL (6.5-10.1) Neutrophils (%) (Auto) 84.1 % (45.0-75.0) H Lymphocytes (%) (Auto) 4.8 % (20.0-45.0) L Monocytes (%) (Auto) 9.8 % (1.0-10.0) Eosinophils (%) (Auto) 0.5 % (0.0-3.0) Basophils (%) (Auto) 0.7 % (0.0-2.0) Prothrombin Time 10.7 SEC (9.30-11.50) Prothromb Time International Ratio 1.0 (0.9-1.1) Activated Partial Thromboplast Time 36 SEC (23-33) H Sodium Level 141 MMOL/L (136-145) Potassium Level 3.2 MMOL/L (3.5-5.1) L Chloride Level 101 MMOL/L (98-107) Carbon Dioxide Level 26 MMOL/L (21-32) Anion Gap 14 mmol/L (5-15) Blood Urea Nitrogen 30 mg/dL (7-18) H Creatinine 3.0 MG/DL (0.55-1.30) H Estimat Glomerular Filtration Rate mL/min (>60) Glucose Level 68 MG/DL (74-106) L Calcium Level 8.0 MG/DL (8.5-10.1) L Total Bilirubin 0.4 MG/DL (0.2-1.0) Aspartate Amino Transf (AST/SGOT) 18 U/L (15-37) Alanine Aminotransferase (ALT/SGPT) 9 U/L (12-78) L Alkaline Phosphatase 101 U/L (46-116) Total Protein 7.1 G/DL (6.4-8.2) Albumin 1.6 G/DL (3.4-5.0) L Globulin 5.5 g/dL Albumin/Globulin Ratio 0.3 (1.0-2.7) L Current Medications Medications (Trade) Dose Ordered Sig/Renetta Route PRN Reason Start Time Stop Time Status Last Admin Dose Admin Acetaminophen (Tylenol) 650 mg Q6H PRN ORAL Mild Pain/Temp > 100.5 08/02/18 14:15 09/01/18 14:14 08/16/18 18:45 Al Hydroxide/Mg Hydroxide (Mylanta) 15 ml Q1H PRN ORAL gi upset 08/17/18 06:45 08/17/18 15:00 Albuterol/ Ipratropium (Albuterol/ Ipratropium) 3 ml Q6H PRN HHN Shortness of Breath 08/16/18 19:15 08/21/18 19:14 08/16/18 21:33 Amiodarone HCl (Cordarone) 200 mg EVERY 12 HOURS NG 08/06/18 21:00 09/03/18 13:59 08/16/18 21:41 Atropine Sulfate (Atropine) 0.5 mg Q5M PRN IV bpm less than 45 08/17/18 06:45 08/17/18 15:00 Chlorhexidine Gluconate (Rylie-Hex 2%) 1 applic DAILY@2000 TOPIC 07/26/18 20:00 08/25/18 19:59 08/16/18 21:40 Collagenase (Santyl) 1 applic Q12HR TOPIC 08/10/18 21:00 09/03/18 20:59 08/17/18 07:52 Dextrose/Sodium Chloride 1,000 ml @ 30 mls/hr Q24H IV 08/17/18 09:00 09/16/18 08:59 08/17/18 09:00 Diphenhydramine HCl (Benadryl) 25 mg Q15M PRN IVP Itching 08/17/18 06:45 08/17/18 15:00 Epoetin Paul (Procrit (for ESRD on dialysis)) 10,000 units WED- SUBQ 07/27/18 21:00 08/26/18 20:59 08/15/18 21:01 Fentanyl Citrate (Sublimaze 100 mcg/2 mL) 25 mcg Q10M PRN IV Moderate Pain (Pain Scale 4-6) 08/17/18 06:45 08/17/18 15:00 Heparin Sodium (Porcine) (Heparin 5000 units/ml) 5,000 units EVERY 12 HOURS SUBQ 08/13/18 21:00 09/04/18 21:59 08/15/18 21:02 Heparin Sodium (Porcine) (Heparin Sod 1000 units/ml 10ml) 2,000 unit ONCE PRN IV FOR HD USE 08/16/18 14:45 08/18/18 23:59 Hydralazine HCl (Apresoline) 5 mg Q30M PRN IV SBP>160 OR___/DBP>90 OR___ 08/17/18 06:45 08/17/18 15:00 Meropenem 500 mg/ Sodium Chloride 55 ml @ 110 mls/hr DAILY IVPB 08/09/18 09:00 08/23/18 08:59 08/17/18 07:52 Midazolam HCl (Versed 2mg/2ml vial) 1 mg Q15M PRN IVP For Anxiety 08/17/18 06:45 08/17/18 15:00 Minoxidil (Loniten) 5 mg Q12HR NG 07/31/18 21:00 08/30/18 20:59 08/15/18 21:00 Ondansetron HCl (Zofran) 4 mg Q1H PRN IVP Nausea & Vomiting 08/17/18 06:45 08/17/18 15:00 Pantoprazole (Protonix) 40 mg Q12HR IVP 07/25/18 21:00 08/25/18 08:59 08/16/18 21:40 Sodium Chloride 1,000 ml @ 500 mls/hr Q2H PRN IVLG sbp<90 during hd 08/16/18 14:50 08/18/18 23:59 Vitamin D (Vitamin D) 1,000 intlu DAILY GT 08/07/18 10:00 09/06/18 09:59 08/15/18 08:16 Omid Morfin MD Aug 17, 2018 11:05"
--- NOTE | 2018-08-17 11:18 | NUR ---
CASE MANAGEMENT: REVIEW SI: CELLULITIS OF RIGHT LEG . OSTEOMYELITIS . ESRD ON HD TRACHEOSTOMY 08/15 PEG PLACEMENT 08/17 T 98.1 HR 104 RR 21 BP 110/30 SAT 100% MECH VENT FIO2 35 WBC 12.6 H/H 8.8/28.7 IS: D5 1/2 NS IVF @30ML/HR HEPARIN SQ Q12HR MINOXIDIL 5MG NG Q12HR AMIODARONE NG Q12HR GT FEEDING NEPRO @ 40ML/HR ICU STATUS DCP: PATIENT IS FROM [facility]
--- NOTE | 2018-08-17 11:23 | 48 Hour Post Anesthesia Eval ---
Post Anesthesia Evaluation Procedure: egd/peg Date of Evaluation: Aug 17, 2018 Time of Evaluation: 09:32 Blood Pressure Systolic: 127 0: 29 Pulse Rate: 86 Respiratory Rate: 11 Temperature (Fahrenheit): 98.1 O2 Sat by Pulse Oximetry: 100 Airway: patent Nausea: No Vomiting: No Hydration Status: adequate Cardiopulmonary Status: stable Mental Status/LOC: patient returned to baseline Post-Anesthesia Complications: none Follow-up care needed: N/A Jessie Vinson MD Aug 17, 2018 11:23
--- NOTE | 2018-08-17 12:00 | NUR ---
NURSE NOTES: Pt stable in bed. VSS. family at bedside. will continue plan of care.
--- NOTE | 2018-08-17 14:00 | NUR ---
NURSE NOTES: Turned, repositioned patient, oral care provided. No s/s of acute distress. will continue plan of care.
--- NOTE | 2018-08-17 16:00 | NUR ---
NURSE NOTES: family at beside. pt resting. will continue to monitor.
--- NOTE | 2018-08-17 18:45 | Procedure Note ---
DATE OF PROCEDURE: 08/17/2018 SURGEON: Oc Cox M.D. PROCEDURE: Upper endoscopy with PEG placement. ANESTHESIOLOGIST: Per Dr. Alva. INSTRUMENT: Olympus adult flexible upper endoscope. INDICATION: Dysphagia. REASON FOR PROCEDURE: The procedure, risks, benefits, and possible consequences, including hemorrhage, aspiration, perforation and infection, and alternative treatments, were explained to the patient/legal guardian by Dr. Oc Cox and the patient/legal guardian understood and accepted these risks. DESCRIPTION OF PROCEDURE: After informed consent was obtained and the patient was adequately sedated, Olympus upper endoscope was advanced from the mouth into the second portion of duodenum and retroflexion was performed in the stomach. Then under endoscopic guidance, under sterile condition, a 20-Nauruan pull type of G-tube was successfully placed in epigastric area. The distance from the tip of the tube to skin was about 2.5 cm in size. The patient had diffuse mild gastritis. The patient tolerated procedure very well without any complication. SUMMARY OF FINDINGS: 1. Status post successful PEG placement. 2. Gastritis. RECOMMENDATIONS: 1. Abdominal binder. 2. Elevate the head of the bed at all times. 3. G-tube flush. 4. G-tube care. 5. Start tube feeding later today. 6. The patient is currently on antibiotics, we will continue. I want to thank Dr. He for this kind referral. Oc Cox M.D. DR: ENRRIQUE JOB#: [id number] CC: Chase He M.D.; Fax#: [phone]
--- NOTE | 2018-08-17 18:58 | NUR ---
RESPIRATORY NOTE: Received pt on AC 8- 450ml-35%-peep of 5 with trach size 8 Shiley cuffed. Pt is stable, no SOB or acute resp distress noted. Alarms are set and audible, vent is plugged into the red outlet, and ambu bag is at bedside. Will continue to monitor pt.
--- NOTE | 2018-08-17 19:00 | NUR ---
HAND-OFF: Report given to BALDO Mac.
--- NOTE | 2018-08-17 19:01 | NUR ---
NURSE NOTES: Endorsement received from BALDO Tariq. Patient asleep. Arousable by name. Trache to vent Shiley 8.0 AC 8 Vt 450 PEEP 5 35% FiO2. PEG in place, secured with abdominal binder. Ongoing feeding Nepro 15ml/hr, goal of 30 ml/hr. No residual. Right upper arm midline. Receiving D5 1/2 NS at 30 ml/hr. On p200 mattress. Bilateral soft wrist restraints present. Skin warm and dry. Head of bed elevated. Bed locked and in low position
--- NOTE | 2018-08-17 19:08 | Cardiology Progress Note ---
Assessment/Plan Assessment/Plan 1. Hypotension, possibly sepsis versus volume. 2. Paroxysmal episodes of atrial fibrillation history. 3. Bradycardia secondary to medications, amiodarone possibly. 4. Diabetes mellitus. 5. End-stage renal disease, on hemodialysis. 6. Lung collapse. 7. Respiratory failure, status post intubation. 8. Dysphagia. 9. History of dementia. 10. Pulm htn 11. Pleural effusion 12. cardaic arrest 13. chest wall pain post cpr in and out afib amido now 200 bid on hold stool ob neg x2 amiod bid off labetolol for now if need hydralaize to be used vent support s/p trach peg done tele reviewed agian intermittent tachy but at this time is in sinus Subjective ROS Limited/Unobtainable: Yes Subjective on the vent not verba , denies cp or dizziness has sob Objective Last 24 Hour Vital Signs Date Time Temp Pulse Resp B/P (MAP) Pulse Ox O2 Delivery O2 Flow Rate FiO2 08/17/18 19:00 91 16 109/22 (51) 96 08/17/18 18:52 80 19 35 08/17/18 18:00 92 15 115/38 (63) 96 08/17/18 17:12 79 14 35 08/17/18 17:00 95 15 110/40 (63) 96 08/17/18 16:00 Trach Collar Trach Collar Mechanical Ventilator 08/17/18 16:00 98.1 98 16 105/25 (51) 100 08/17/18 16:00 92 08/17/18 16:00 35 08/17/18 15:00 95 15 109/40 (63) 96 08/17/18 14:00 90 15 112/35 (60) 97 08/17/18 13:05 112 20 35 08/17/18 13:00 95 15 100/33 (55) 95 08/17/18 12:00 98.1 100 16 107/25 (52) 100 08/17/18 12:00 89 08/17/18 12:00 Trach Collar Trach Collar Mechanical Ventilator 08/17/18 12:00 35 08/17/18 11:25 81 19 35 08/17/18 11:23 86 11 100 08/17/18 11:00 99 15 110/30 (56) 95 08/17/18 10:00 95 15 102/33 (56) 95 08/17/18 09:00 96 15 107/12 (43) 95 08/17/18 08:58 102 21 35 08/17/18 08:00 98.1 100 16 105/25 (51) 100 08/17/18 08:00 101 18 08:00 35 08/17/18 08:00 Mechanical Ventilator Mechanical Ventilator Mechanical Ventilator 08/17/18 07:16 104 20 35 08/17/18 07:00 90 15 110/30 (56) 95 08/17/18 06:00 90 15 107/12 (43) 95 08/17/18 05:01 91 17 35 08/17/18 05:00 103 19 95/41 (59) 100 08/17/18 04:00 98.1 101 16 118/18 (51) 100 08/17/18 04:00 35 08/17/18 04:00 Mechanical Ventilator Mechanical Ventilator Mechanical Ventilator 08/17/18 04:00 105 08/17/18 03:00 87 16 116/19 (51) 100 08/17/18 02:54 86 14 35 08/17/18 02:00 90 15 115/19 (51) 98 08/17/18 01:00 92 14 90/50 (63) 96 08/17/18 00:49 90 20 35 08/17/18 00:00 88 08/17/18 00:00 99 19 136/51 (79) 95 08/17/18 00:00 Mechanical Ventilator Mechanical Ventilator Mechanical Ventilator 08/17/18 00:00 35 08/16/18 23:23 92 21 35 08/16/18 23:00 90 18 101/17 (45) 96 08/16/18 22:00 95 20 90/40 (57) 96 18 21:48 94 18 96 Mechanical Ventilator 35 08/16/18 21:37 96 20 93 Mechanical Ventilator 35 08/16/18 21:24 91 21 35 18 21:00 90/19 18 21:00 91 19 100/19 (46) 96 18 20:00 98.0 89 17 101/17 (45) 98 08/16/18 20:00 77 08/16/18 20:00 Mechanical Ventilator Mechanical Ventilator Mechanical Ventilator 08/16/18 20:00 35 General Appearance: no apparent distress, on vent, patient on isolation Neck: no JVD Cardiovascular: normal rate Respiratory/Chest: lungs clear, normal breath sounds Abdomen: soft Extremities: moderate edema Intake and Output 08/16/18 08/17/18 19:00 07:00 Intake Total 160 ml 135 ml Output Total 1 ml Balance 159 ml 135 ml Intake Oral 0 ml Free Water 30 ml 60 ml IV Total 55 ml Tube Feeding 75 ml 75 ml Stool Total 1 ml # Bowel Movements 1 1 Laboratory Tests Test 08/17/18 04:00 White Blood Count 12.6 K/UL (4.8-10.8) H Red Blood Count 3.00 M/UL (4.20-5.40) L Hemoglobin 8.8 G/DL (12.0-16.0) L Hematocrit 28.7 % (37.0-47.0) L Mean Corpuscular Volume 96 FL (80-99) Mean Corpuscular Hemoglobin 29.5 PG (27.0-31.0) Mean Corpuscular Hemoglobin Concent 30.8 G/DL (32.0-36.0) L Red Cell Distribution Width 18.9 % (11.6-14.8) H Platelet Count 451 K/UL (150-450) H Mean Platelet Volume 6.7 FL (6.5-10.1) Neutrophils (%) (Auto) 84.1 % (45.0-75.0) H Lymphocytes (%) (Auto) 4.8 % (20.0-45.0) L Monocytes (%) (Auto) 9.8 % (1.0-10.0) Eosinophils (%) (Auto) 0.5 % (0.0-3.0) Basophils (%) (Auto) 0.7 % (0.0-2.0) Prothrombin Time 10.7 SEC (9.30-11.50) Prothromb Time International Ratio 1.0 (0.9-1.1) Activated Partial Thromboplast Time 36 SEC (23-33) H Sodium Level 141 MMOL/L (136-145) Potassium Level 3.2 MMOL/L (3.5-5.1) L Chloride Level 101 MMOL/L (98-107) Carbon Dioxide Level 26 MMOL/L (21-32) Anion Gap 14 mmol/L (5-15) Blood Urea Nitrogen 30 mg/dL (7-18) H Creatinine 3.0 MG/DL (0.55-1.30) H Estimat Glomerular Filtration Rate mL/min (>60) Glucose Level 68 MG/DL (74-106) L Calcium Level 8.0 MG/DL (8.5-10.1) L Total Bilirubin 0.4 MG/DL (0.2-1.0) Aspartate Amino Transf (AST/SGOT) 18 U/L (15-37) Alanine Aminotransferase (ALT/SGPT) 9 U/L (12-78) L Alkaline Phosphatase 101 U/L (46-116) Total Protein 7.1 G/DL (6.4-8.2) Albumin 1.6 G/DL (3.4-5.0) L Globulin 5.5 g/dL Albumin/Globulin Ratio 0.3 (1.0-2.7) L Angelo Butler MD Aug 17, 2018 19:08
[2018-08-17] MEDS: Dyna-Hex 2% Top Sol 2oz TOPIC SCH (20:00)
--- NOTE | 2018-08-17 21:00 | NUR ---
NURSE NOTES: Secretions suctioned, scant amount from trache. No SOB
[2018-08-17] MEDS: Epogen (for ESRD on dialysis) SUBQ SCH (21:01)
--- NOTE | 2018-08-17 23:00 | NUR ---
NURSE NOTES: Patient asleep. Vital signs stable.
[2018-08-18] VITALS (24 sets, daily range): BP systolic 105–147; BP diastolic 10–59
--- NOTE | 2018-08-18 01:15 | NUR ---
NURSE NOTES: Patient desating 87-88% on 35% FiO2. RT informed, increased to 50%, still desating. Patient awake, no SOB. Increased to 60% c/o RT
--- NOTE | 2018-08-18 03:00 | NUR ---
NURSE NOTES: Patient maintaining [id number]% at 60% FiO2. Asleep, no signs of pain. Dressing at GT site dry and intact.
--- NOTE | 2018-08-18 05:00 | NUR ---
NURSE NOTES: Bed bath, oral care, change of dressings, change of linens done.
[2018-08-18 05:33] LABS: BASOPHILS % (AUTO) 0.7 % (0.0-2.0); EOSINOPHILS % (AUTO) 0.7 % (0.0-3.0); HEMATOCRIT 28.2 % (37.0-47.0); HEMOGLOBIN 8.7 G/DL (12.0-16.0); LYMPHOCYTES % (AUTO) 5.9 % (20.0-45.0); MEAN CORPUSCULAR VOLUME 96 FL (80-99); MONOCYTES % (AUTO) 10.5 % (1.0-10.0); NEUTROPHILS % (AUTO) 82.2 % (45.0-75.0); PLATELET COUNT 462 K/UL (150-450); RED BLOOD COUNT 2.95 M/UL (4.20-5.40); RED CELL DISTRIBUTION WIDTH 18.7 % (11.6-14.8); WHITE BLOOD COUNT 10.3 K/UL (4.8-10.8)
[2018-08-18 06:02] LABS: ALANINE AMINOTRANSFERASE 7 U/L (12-78); ALBUMIN 1.5 G/DL (3.4-5.0); ALBUMIN/GLOBULIN RATIO 0.3 (1.0-2.7); ALKALINE PHOSPHATASE 110 U/L (46-116); ANION GAP 8 mmol/L (5-15); ASPARTATE AMINO TRANSFERASE 15 U/L (15-37); BILIRUBIN,TOTAL 0.4 MG/DL (0.2-1.0); BLOOD UREA NITROGEN 18 mg/dL (7-18); CALCIUM 8.1 MG/DL (8.5-10.1); CARBON DIOXIDE 30 MMOL/L (21-32); CHLORIDE 99 MMOL/L (98-107); CREATININE 2.2 MG/DL (0.55-1.30); SODIUM 137 MMOL/L (136-145)
[2018-08-18 06:14] LABS: POTASSIUM 2.7 MMOL/L (3.5-5.1)
--- NOTE | 2018-08-18 06:43 | NUR ---
NURSE NOTES: Paged Dr. Cabezas for K 2.7. Awaiting for return call.
--- NOTE | 2018-08-18 07:09 | NUR ---
RESPIRATORY NOTE: received pt trached; josh 8, secured via trach tie/guard and on vent with current settings. pt is alert, oriented with no resp distress at this time. vent alarms are on and audible and plugged into red outlet. ambu bag at bedside and will cont to monitor.
--- NOTE | 2018-08-18 07:14 | NUR ---
HAND-OFF: Report given to BALDO Rivero
--- NOTE | 2018-08-18 07:20 | NUR ---
NURSE NOTES: Report received from Estefania Pressley. Pt awake, alert, follows commands. Pt on trache to vent shiley #8, AC 8, TV 450, [id number]%, saturating 100%. Tolerating GTF with Nepro 40 cc/hr. Rectal tube intact. LAV fistula noted with bruit and thrill. FLACO ML with d5 1/2 NS at 30 cc/hr. Bilateral soft wrist restraints noted. Safety measures in place with bed locked and in lowest position, side rails x3 up and call light within reach. Will continue to monitor and continue plan of care.
[2018-08-18] MEDS: Vitamin D 1000 IU Tab GT SCH (08:19)
[2018-08-18] MEDS: Amiodarone 200mg tab NG SCH ×2 (08:19→21:21)
[2018-08-18] MEDS: Pantoprazole Inj IVP SCH ×2 (08:19→21:21)
[2018-08-18] MEDS: Minoxidil 2.5mg tab NG SCH ×2 (08:20→21:22)
[2018-08-18] MEDS: Heparin 5000 units/ml inj SUBQ SCH ×2 (08:23→21:23)
[2018-08-18] MEDS: D5 1/2NS 1,000 ML IV SCH (08:30)
--- NOTE | 2018-08-18 09:00 | NUR ---
NURSE NOTES: Discussed with Dr Smith pt potassium level of 2.7 this am. KCL 30 meq Iv ordered. Will continue to monitor.
--- NOTE | 2018-08-18 10:27 | Pulmonology Progress Note ---
Assessment/Plan Assessment/Plan IMPRESSION: 1. Hypotension. 2. Sepsis. 3. Atrial fibrillation. 4. Bradycardia. 5. Diabetes mellitus. 6. End-stage renal disease on dialysis. 7. Left lung collapse. Resolved 8. Respiratory failure. now status post tracheostomy 9. Dysphagia. 10. Dementia. 11. Anemia 12. Pneumonia DISCUSSION: 1. Continue medications. 2. CXR improved 3. status post tracheostomy 4. Central access 4. S/p G-tube 5. Stable to transfer to [facility] Andres Allan M.D. Subjective Interval Events: No new events Constitutional: Reports: no symptoms HEENT: Repors: no symptoms Respiratory: Reports: no symptoms Cardiovascular: Reports: no symptoms Gastrointestinal/Abdominal: Reports: no symptoms Genitourinary: Reports: no symptoms Allergies: Coded Allergies: No Known Allergies (Unverified , 07/25/18) Objective Last 24 Hour Vital Signs Date Time Temp Pulse Resp B/P (MAP) Pulse Ox O2 Delivery O2 Flow Rate FiO2 08/18/18 09:00 90 18 116/18 (50) 100 08/18/18 08:42 84 15 40 08/18/18 08:20 140/27 08/18/18 08:00 Trach Collar Mechanical Ventilator Mechanical Ventilator 08/18/18 08:00 50 08/18/18 08:00 98.9 84 15 105/28 (53) 100 08/18/18 07:05 81 14 50 08/18/18 07:00 85 17 140/27 (64) 100 08/18/18 06:00 76 17 140/30 (66) 100 08/18/18 05:02 76 14 35 08/18/18 05:00 76 17 144/37 (72) 100 08/18/18 04:00 98.0 83 15 137/37 (70) 100 08/18/18 04:00 Trach Collar Mechanical Ventilator Mechanical Ventilator 08/18/18 04:00 60 08/18/18 04:00 86 08/18/18 03:15 85 14 35 08/18/18 03:00 86 15 135/21 (59) 100 12/20/18 02:00 112 17 109/44 (65) 100 08/18/18 01:15 60 08/18/18 01:00 86 16 147/22 (63) 100 08/18/18 01:00 50 08/18/18 00:46 86 16 35 18 00:00 81 08/18/18 00:00 Trach Collar Mechanical Ventilator Mechanical Ventilator 08/18/18 00:00 98.0 86 16 112/59 (76) 100 08/18/18 00:00 35 08/17/18 23:00 83 16 119/19 (52) 94 18 22:58 81 14 35 08/17/18 22:00 86 16 120/19 (52) 98 18 21:01 136/19 08/17/18 21:00 88 16 136/19 (58) 98 18 20:54 85 18 35 08/17/18 20:00 98.5 84 16 136/18 (57) 97 08/17/18 20:00 80 08/17/18 20:00 Trach Collar Mechanical Ventilator Mechanical Ventilator 08/17/18 20:00 35 08/17/18 19:00 91 16 109/22 (51) 96 18 18:52 80 19 35 08/17/18 18:00 92 15 115/38 (63) 96 08/17/18 17:12 79 14 35 08/17/18 17:00 95 15 110/40 (63) 96 08/17/18 16:00 Trach Collar Trach Collar Mechanical Ventilator 08/17/18 16:00 98.1 98 16 105/25 (51) 100 08/17/18 16:00 92 08/17/18 16:00 35 08/17/18 15:00 95 15 109/40 (63) 96 08/17/18 14:00 90 15 112/35 (60) 97 08/17/18 13:05 112 20 35 08/17/18 13:00 95 15 100/33 (55) 95 08/17/18 12:00 98.1 100 16 107/25 (52) 100 08/17/18 12:00 89 08/17/18 12:00 Trach Collar Trach Collar Mechanical Ventilator 08/17/18 12:00 35 18 11:25 81 19 35 08/17/18 11:23 86 11 100 12/19/18 11:00 99 15 110/30 (56) 95 Intake and Output 08/17/18 08/18/18 19:00 07:00 Intake Total 420 ml 610 ml Balance 420 ml 610 ml Free Water 30 ml IV Total 300 ml 300 ml Tube Feeding 120 ml 280 ml # Bowel Movements 2 General Appearance: no acute distress HEENT: normocephalic Respiratory/Chest: chest wall non-tender, lungs clear Cardiovascular: normal peripheral pulses Abdomen: normal bowel sounds, soft, non tender Laboratory Tests 08/18/18 04:00: White Blood Count 10.3, Red Blood Count 2.95L, Hemoglobin 8.7L, Hematocrit 28.2L , Mean Corpuscular Volume 96, Mean Corpuscular Hemoglobin 29.4, Mean Corpuscular Hemoglobin Concent 30.7L, Red Cell Distribution Width 18.7H, Platelet Count 462H, Mean Platelet Volume 6.9, Neutrophils (%) (Auto) 82.2H, Lymphocytes (%) (Auto) 5.9L, Monocytes (%) (Auto) 10.5H, Eosinophils (%) (Auto) 0.7, Basophils (%) (Auto) 0.7, Sodium Level 137, Potassium Level 2.7*L, Chloride Level 99, Carbon Dioxide Level 30, Anion Gap 8, Blood Urea Nitrogen 18 , Creatinine 2.2H, Estimat Glomerular Filtration Rate , Glucose Level 101, Calcium Level 8.1L, Total Bilirubin 0.4, Aspartate Amino Transf (AST/SGOT) 15, Alanine Aminotransferase (ALT/SGPT) 7L, Alkaline Phosphatase 110, Total Protein 6.9, Albumin 1.5L, Globulin 5.4, Albumin/Globulin Ratio 0.3L Current Medications Medications (Trade) Dose Ordered Sig/Renetta Route PRN Reason Start Time Stop Time Status Last Admin Dose Admin Acetaminophen (Tylenol) 650 mg Q6H PRN ORAL Mild Pain/Temp > 100.5 08/02/18 14:15 09/01/18 14:14 08/16/18 18:45 Albuterol/ Ipratropium (Albuterol/ Ipratropium) 3 ml Q6H PRN HHN Shortness of Breath 08/16/18 19:15 08/21/18 19:14 08/16/18 21:33 Amiodarone HCl (Cordarone) 200 mg EVERY 12 HOURS NG 12/8/18 21:00 09/03/18 13:59 08/18/18 08:19 Chlorhexidine Gluconate (Rylie-Hex 2%) 1 applic DAILY@1999 TOPIC 07/26/18 20:00 08/25/18 19:59 08/17/18 20:00 Collagenase (Santyl) 1 applic Q12HR TOPIC 08/10/18 21:00 09/03/18 20:59 08/18/18 08:20 Dextrose/Sodium Chloride 1,000 ml @ 30 mls/hr Q24H IV 08/17/18 09:00 09/16/18 08:59 08/18/18 08:30 Epoetin Paul (Procrit (for ESRD on dialysis)) 10,000 units WED-WED-WED SUBQ 07/27/18 21:00 08/26/18 20:59 08/17/18 21:01 Heparin Sodium (Porcine) (Heparin 5000 units/ml) 5,000 units EVERY 12 HOURS SUBQ 08/13/18 21:00 09/04/18 21:59 08/18/18 08:23 Heparin Sodium (Porcine) (Heparin Sod 1000 units/ml 10ml) 2,000 unit ONCE PRN IV FOR HD USE 08/16/18 14:45 08/18/18 23:59 Minoxidil (Loniten) 5 mg Q12HR NG 07/31/18 21:00 08/30/18 20:59 08/18/18 08:20 Pantoprazole (Protonix) 40 mg Q12HR IVP 07/25/18 21:00 08/25/18 08:59 08/18/18 08:19 Potassium Chloride 100 ml @ 100 mls/hr Q1HR IVPB 08/18/18 10:00 08/18/18 12:59 08/18/18 10:14 Sodium Chloride 1,000 ml @ 500 mls/hr Q2H PRN IVLG sbp<90 during hd 08/16/18 14:50 08/18/18 23:59 Vitamin D (Vitamin D) 1,000 intlu DAILY GT 08/07/18 10:00 09/06/18 09:59 08/18/18 08:19 Andres Allan MD Aug 18, 2018 10:27
--- NOTE | 2018-08-18 10:37 | NUR ---
RD ASSESSMENT & RECOMMENDATIONS SEE CARE ACTIVITY FOR COMPLETE ASSESSMENT DAILY ESTIMATED NEEDS: Needs based on Critical care + Advanced Wounds + ESRD/ 60kg 22-30 kcals/kg 6934-8712 total kcals 1.5-2.0 g protein/kg 90-120g g total protein per MD mL/kg NUTRITION DIAGNOSIS: * Swallowing difficulty R/T respiratory status as evidenced by pt s/p self extubation, s/p code blue, reintubated, now s/p trach and PEG placement. (UPDATED) * Increased kcal/prot needs R/T wound healing as evidenced by pt admitted w/ multiple wounds including stage 4 sacral wound, refer to WC eval. * Altered nutrition related lab values R/T ESRD dx, clinical condition as evidenced by low K (2.7), episodes of hypoglycemia (68 69), elev creat (4.6-> 2.2), low Na (130-> wnl), elev BNP >03657. CURRENT TF: Nepro @40ml/hr ENTERAL NUTRITION RECOMMENDATIONS: Nepro @40ml/hr x 24 hrs + Prosource 1pkt BID to provide 960ml, 1728kcal, 78g + 22g prot, 698ml free water 1. Maintain current rate, add Prosource 1 pack BID to better meet est protein needs 2. Flush per MD/ HOB over 30 degrees ADDITIONAL RECOMMENDATIONS: * RECALIBRATE BED SCALE POST TRACH AND PEG PROCEDURES * Add PROSOURCE 1 pack BID to better meet est protein needs * Wound healing- Nephrovite x 1, Afshin 1pkt BID * Monitor for hypoglycemia * Monitor tolerance to current TF rate .
--- NOTE | 2018-08-18 11:00 | NUR ---
NURSE NOTES: Dr Randolph here to see pt. No new orders. No acute distress. Will continue to monitor.
--- NOTE | 2018-08-18 11:34 | NUR ---
CASE MANAGEMENT: REVIEW SI: CELLULITIS OF RIGHT LEG . OSTEOMYELITIS . ESRD ON HD TRACHEOSTOMY 08/15 PEG PLACEMENT 08/17 T 98.9 HR 84 RR 15 BP 105/28 SAT 100% MECH VENT FIO2 60 H/H 8.7/28.2 K 2.7 CR 2.2 IS: KCl IVF @100ML/HR D5 08/31 NS IVF @30ML/HR AMIODARONE GT Q12HR GT FEEDING NEPRO @ 40ML/HR ICU STATUS DCP: PATIENT IS FROM [facility]
--- NOTE | 2018-08-18 12:06 | Infectious Diseases Prog Note ---
Assessment/Plan Assessment/Plan A: Sepsis treated UTI treated Cellulitis of R leg, osteomyelitis treated Hypercapnic respiratory failure ESRD on HD DM Anemia Dementia PVD R pleural effusion Mucous plug s/o Cardiac arrest Stage IV sacral ulcer P; Observe off antibiotic Subjective ROS Limited/Unobtainable: Yes Gastrointestinal/Abdominal: Reports: other - had PEG yesterday Neurologic: Reports: confusion, other - on restraint Allergies: Coded Allergies: No Known Allergies (Unverified , 07/25/18) Objective Vital Signs Last 24 Hour Vital Signs Date Time Temp Pulse Resp B/P (MAP) Pulse Ox O2 Delivery O2 Flow Rate FiO2 08/18/18 10:33 87 16 40 08/18/18 10:00 87 16 110/21 (50) 100 08/18/18 09:00 90 18 116/18 (50) 100 08/18/18 08:42 84 15 40 08/18/18 08:20 140/27 08/18/18 08:00 Trach Collar Mechanical Ventilator Mechanical Ventilator 08/18/18 08:00 50 08/18/18 08:00 98.9 84 15 105/28 (53) 100 08/18/18 07:05 81 14 50 08/18/18 07:00 85 17 140/27 (64) 100 08/18/18 06:00 76 17 140/30 (66) 100 08/18/18 05:02 76 14 35 08/18/18 05:00 76 17 144/37 (72) 100 08/18/18 04:00 98.0 83 15 137/37 (70) 100 08/18/18 04:00 Trach Collar Mechanical Ventilator Mechanical Ventilator 08/18/18 04:00 60 08/18/18 04:00 86 08/18/18 03:15 85 14 35 08/18/18 03:00 86 15 135/21 (59) 100 08/18/18 02:00 112 17 109/44 (65) 100 08/18/18 01:15 60 08/18/18 01:00 86 16 147/22 (63) 100 08/18/18 01:00 50 08/18/18 00:46 86 16 35 08/18/18 00:00 81 08/18/18 00:00 Trach Collar Mechanical Ventilator Mechanical Ventilator 08/18/18 00:00 98.0 86 16 112/59 (76) 100 08/18/18 00:00 35 08/17/18 23:00 83 16 119/19 (52) 94 18 22:58 81 14 35 08/17/18 22:00 86 16 120/19 (52) 98 18 21:01 136/19 18 21:00 88 16 136/19 (58) 98 18 20:54 85 18 35 08/17/18 20:00 98.5 84 16 136/18 (57) 97 08/17/18 20:00 80 08/17/18 20:00 Trach Collar Mechanical Ventilator Mechanical Ventilator 08/17/18 20:00 35 08/17/18 19:00 91 16 109/22 (51) 96 08/17/18 18:52 80 19 35 08/17/18 18:00 92 15 115/38 (63) 96 08/17/18 17:12 79 14 35 08/17/18 17:00 95 15 110/40 (63) 96 08/17/18 16:00 Trach Collar Trach Collar Mechanical Ventilator 08/17/18 16:00 98.1 98 16 105/25 (51) 100 08/17/18 16:00 92 08/17/18 16:00 35 08/17/18 15:00 95 15 109/40 (63) 96 08/17/18 14:00 90 15 112/35 (60) 97 08/17/18 13:05 112 20 35 08/17/18 13:00 95 15 100/33 (55) 95 Height (Feet): 5 Height (Inches): 2.00 Weight (Pounds): 110 General Appearance: no acute distress HEENT: status post trach Respiratory/Chest: lungs clear, other - on ventilator Cardiovascular: normal rate, other - R arm PICC line Abdomen: soft, non tender, other - GT feeding Extremities: no edema Neurologic/Psychiatric: disoriented Laboratory Tests Test 08/18/18 04:00 White Blood Count 10.3 K/UL (4.8-10.8) Red Blood Count 2.95 M/UL (4.20-5.40) L Hemoglobin 8.7 G/DL (12.0-16.0) L Hematocrit 28.2 % (37.0-47.0) L Mean Corpuscular Volume 96 FL (80-99) Mean Corpuscular Hemoglobin 29.4 PG (27.0-31.0) Mean Corpuscular Hemoglobin Concent 30.7 G/DL (32.0-36.0) L Red Cell Distribution Width 18.7 % (11.6-14.8) H Platelet Count 462 K/UL (150-450) H Mean Platelet Volume 6.9 FL (6.5-10.1) Neutrophils (%) (Auto) 82.2 % (45.0-75.0) H Lymphocytes (%) (Auto) 5.9 % (20.0-45.0) L Monocytes (%) (Auto) 10.5 % (1.0-10.0) H Eosinophils (%) (Auto) 0.7 % (0.0-3.0) Basophils (%) (Auto) 0.7 % (0.0-2.0) Sodium Level 137 MMOL/L (136-145) Potassium Level 2.7 MMOL/L (3.5-5.1) *L Chloride Level 99 MMOL/L (98-107) Carbon Dioxide Level 30 MMOL/L (21-32) Anion Gap 8 mmol/L (5-15) Blood Urea Nitrogen 18 mg/dL (7-18) Creatinine 2.2 MG/DL (0.55-1.30) H Estimat Glomerular Filtration Rate mL/min (>60) Glucose Level 101 MG/DL (74-106) Calcium Level 8.1 MG/DL (8.5-10.1) L Total Bilirubin 0.4 MG/DL (0.2-1.0) Aspartate Amino Transf (AST/SGOT) 15 U/L (15-37) Alanine Aminotransferase (ALT/SGPT) 7 U/L (12-78) L Alkaline Phosphatase 110 U/L (46-116) Total Protein 6.9 G/DL (6.4-8.2) Albumin 1.5 G/DL (3.4-5.0) L Globulin 5.4 g/dL Albumin/Globulin Ratio 0.3 (1.0-2.7) L Current Medications Medications (Trade) Dose Ordered Sig/Renetta Route PRN Reason Start Time Stop Time Status Last Admin Dose Admin Acetaminophen (Tylenol) 650 mg Q6H PRN ORAL Mild Pain/Temp > 100.5 08/02/18 14:15 09/01/18 14:14 08/16/18 18:45 Albuterol/ Ipratropium (Albuterol/ Ipratropium) 3 ml Q6H PRN HHN Shortness of Breath 08/16/18 19:15 08/21/18 19:14 08/16/18 21:33 Amiodarone HCl (Cordarone) 200 mg EVERY 12 HOURS NG 08/06/18 21:00 09/03/18 13:59 08/18/18 08:19 Chlorhexidine Gluconate (Rylie-Hex 2%) 1 applic DAILY@2000 TOPIC 07/26/18 20:00 08/25/18 19:59 08/17/18 20:00 Collagenase (Santyl) 1 applic Q12HR TOPIC 08/10/18 21:00 09/03/18 20:59 08/18/18 08:20 Dextrose/Sodium Chloride 1,000 ml @ 30 mls/hr Q24H IV 08/17/18 09:00 09/16/18 08:59 08/18/18 08:30 Epoetin Paul (Procrit (for ESRD on dialysis)) 10,000 units WED-WED-WED SUBQ 07/27/18 21:00 08/26/18 20:59 08/17/18 21:01 Heparin Sodium (Porcine) (Heparin 5000 units/ml) 5,000 units EVERY 12 HOURS SUBQ 08/13/18 21:00 09/04/18 21:59 08/18/18 08:23 Heparin Sodium (Porcine) (Heparin Sod 1000 units/ml 10ml) 2,000 unit ONCE PRN IV FOR HD USE 08/16/18 14:45 08/18/18 23:59 Minoxidil (Loniten) 5 mg Q12HR NG 07/31/18 21:00 08/30/18 20:59 08/18/18 08:20 Pantoprazole (Protonix) 40 mg Q12HR IVP 07/25/18 21:00 08/25/18 08:59 08/18/18 08:19 Potassium Chloride 100 ml @ 100 mls/hr Q1HR IVPB 08/18/18 10:00 08/18/18 12:59 08/18/18 11:53 Sodium Chloride 1,000 ml @ 500 mls/hr Q2H PRN IVLG sbp<90 during hd 08/16/18 14:50 08/18/18 23:59 Vitamin D (Vitamin D) 1,000 intlu DAILY GT 08/07/18 10:00 09/06/18 09:59 08/18/18 08:19 Freedom Randolph MD Aug 18, 2018 12:06
--- NOTE | 2018-08-18 12:51 | GI Progress Note ---
Assessment/Plan Problems: (1) Encounter for PEG (percutaneous endoscopic gastrostomy) ICD Codes: Z43.1 - Encounter for attention to gastrostomy SNOMED: 338301232, 641430473 (2) Severe malnutrition ICD Codes: E43 - Unspecified severe protein-calorie malnutrition SNOMED: 27706142 (3) Dehydration ICD Codes: E86.0 - Dehydration SNOMED: 05420301 Status: stable Status Narrative Discussed with Dr. Cox Assessment/Plan Assessment - Dysphagia - Resp failure - ESRD - Anemia - Status post PEG Recommendations 1. Abdominal binder. 2. Elevate the head of the bed at all times. 3. G-tube flush. 4. G-tube care. 5. Start tube feeding later today. 6. The patient needs a dose of antibiotics prior to this procedure. The patient was seen and examined at bedside and all new and available data was reviewed in the patients chart. I agree with the above findings, impression and plan. (Patient seen earlier today. Signature stamp does not reflect patient encounter time.). - Oc Cox MD Subjective Subjective limited Objective Last 24 Hour Vital Signs Date Time Temp Pulse Resp B/P (MAP) Pulse Ox O2 Delivery O2 Flow Rate FiO2 08/18/18 12:37 76 15 40 08/18/18 10:33 87 16 40 08/18/18 10:00 87 16 110/21 (50) 100 08/18/18 09:00 90 18 116/18 (50) 100 08/18/18 08:42 84 15 40 08/18/18 08:20 140/27 08/18/18 08:00 Trach Collar Mechanical Ventilator Mechanical Ventilator 08/18/18 08:00 50 08/18/18 08:00 98.9 84 15 105/28 (53) 100 08/18/18 07:05 81 14 50 08/18/18 07:00 85 17 140/27 (64) 100 08/18/18 06:00 76 17 140/30 (66) 100 08/18/18 05:02 76 14 35 08/18/18 05:00 76 17 144/37 (72) 100 08/18/18 04:00 98.0 83 15 137/37 (70) 100 08/18/18 04:00 Trach Collar Mechanical Ventilator Mechanical Ventilator 08/18/18 04:00 60 08/18/18 04:00 86 08/18/18 03:15 85 14 35 08/18/18 03:00 86 15 135/21 (59) 100 08/18/18 02:00 112 17 109/44 (65) 100 08/18/18 01:15 60 08/18/18 01:00 86 16 147/22 (63) 100 08/18/18 01:00 50 08/18/18 00:46 86 16 35 08/18/18 00:00 81 08/18/18 00:00 Trach Collar Mechanical Ventilator Mechanical Ventilator 08/18/18 00:00 98.0 86 16 112/59 (76) 100 08/18/18 00:00 35 08/17/18 23:00 83 16 119/19 (52) 94 18 22:58 81 14 35 08/17/18 22:00 86 16 120/19 (52) 98 18 21:01 136/19 18 21:00 88 16 136/19 (58) 98 18 20:54 85 18 35 08/17/18 20:00 98.5 84 16 136/18 (57) 97 18 20:00 80 18 20:00 Trach Collar Mechanical Ventilator Mechanical Ventilator 08/17/18 20:00 35 08/17/18 19:00 91 16 109/22 (51) 96 18 18:52 80 19 35 08/17/18 18:00 92 15 115/38 (63) 96 18 17:12 79 14 35 08/17/18 17:00 95 15 110/40 (63) 96 08/17/18 16:00 Trach Collar Trach Collar Mechanical Ventilator 08/17/18 16:00 98.1 98 16 105/25 (51) 100 18 16:00 92 18 16:00 35 18 15:00 95 15 109/40 (63) 96 08/17/18 14:00 90 15 112/35 (60) 97 18 13:05 112 20 35 18 13:00 95 15 100/33 (55) 95 Intake and Output 08/17/18 08/18/18 18:59 06:59 Intake Total 375 ml 615 ml Balance 375 ml 615 ml Free Water 30 ml IV Total 270 ml 330 ml Tube Feeding 105 ml 255 ml # Bowel Movements 2 Laboratory Tests Test 08/18/18 04:00 White Blood Count 10.3 K/UL (4.8-10.8) Red Blood Count 2.95 M/UL (4.20-5.40) L Hemoglobin 8.7 G/DL (12.0-16.0) L Hematocrit 28.2 % (37.0-47.0) L Mean Corpuscular Volume 96 FL (80-99) Mean Corpuscular Hemoglobin 29.4 PG (27.0-31.0) Mean Corpuscular Hemoglobin Concent 30.7 G/DL (32.0-36.0) L Red Cell Distribution Width 18.7 % (11.6-14.8) H Platelet Count 462 K/UL (150-450) H Mean Platelet Volume 6.9 FL (6.5-10.1) Neutrophils (%) (Auto) 82.2 % (45.0-75.0) H Lymphocytes (%) (Auto) 5.9 % (20.0-45.0) L Monocytes (%) (Auto) 10.5 % (1.0-10.0) H Eosinophils (%) (Auto) 0.7 % (0.0-3.0) Basophils (%) (Auto) 0.7 % (0.0-2.0) Sodium Level 137 MMOL/L (136-145) Potassium Level 2.7 MMOL/L (3.5-5.1) *L Chloride Level 99 MMOL/L (98-107) Carbon Dioxide Level 30 MMOL/L (21-32) Anion Gap 8 mmol/L (5-15) Blood Urea Nitrogen 18 mg/dL (7-18) Creatinine 2.2 MG/DL (0.55-1.30) H Estimat Glomerular Filtration Rate mL/min (>60) Glucose Level 101 MG/DL (74-106) Calcium Level 8.1 MG/DL (8.5-10.1) L Total Bilirubin 0.4 MG/DL (0.2-1.0) Aspartate Amino Transf (AST/SGOT) 15 U/L (15-37) Alanine Aminotransferase (ALT/SGPT) 7 U/L (12-78) L Alkaline Phosphatase 110 U/L (46-116) Total Protein 6.9 G/DL (6.4-8.2) Albumin 1.5 G/DL (3.4-5.0) L Globulin 5.4 g/dL Albumin/Globulin Ratio 0.3 (1.0-2.7) L Height (Feet): 5 Height (Inches): 2.00 Weight (Pounds): 110 General Appearance: alert Cardiovascular: normal rate Respiratory/Chest: no respiratory distress Abdominal Exam: soft, GT site - Clean dry and intact Rita Quintanilla NP Aug 18, 2018 12:50
--- NOTE | 2018-08-18 14:00 | NUR ---
NURSE NOTES: Son at bedside. No acute distress. Will continue to monitor.
--- NOTE | 2018-08-18 15:01 | Nephrology Progress Note ---
Assessment/Plan Assessment Seee below Plan MOF resolving. Sepsis due to infected diabetic ulcers. On IV Abx. Followed by ID, Vasc. Sx, Podiatry. Resolving. ESRD HD q MWF Anemia of CKD , DARRYN high dose. Transfuse PRN. A. 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 with LAE. LVEF 65% . Anticoagulate when stable. REGINALDO Butler. In and out A. Fib. Post trach + PEG . Referred to [facility]. See orders. DW pt's son. Needs Vascular W/U. Subjective Subjective On Vent. Alert. Post Trach and PEG. Objective Objective Last 24 Hour Vital Signs Date Time Temp Pulse Resp B/P (MAP) Pulse Ox O2 Delivery O2 Flow Rate FiO2 08/18/18 14:39 84 15 40 08/18/18 14:00 89 18 120/10 (46) 100 08/18/18 13:00 85 15 124/39 (67) 100 08/18/18 12:37 76 15 40 08/18/18 12:00 99.3 15 114/28 (56) 100 08/18/18 12:00 85 08/18/18 12:00 50 08/18/18 12:00 Trach Collar Mechanical Ventilator Mechanical Ventilator 08/18/18 11:00 85 15 111/30 (57) 100 08/18/18 10:33 87 16 40 08/18/18 10:00 87 16 110/21 (50) 100 08/18/18 09:00 90 18 116/18 (50) 100 08/18/18 08:42 84 15 40 08/18/18 08:20 140/27 08/18/18 08:00 Trach Collar Mechanical Ventilator Mechanical Ventilator 08/18/18 08:00 50 08/18/18 08:00 85 08/18/18 08:00 98.9 84 15 105/28 (53) 100 08/18/18 07:05 81 14 50 08/18/18 07:00 85 17 140/27 (64) 100 08/18/18 06:00 76 17 140/30 (66) 100 08/18/18 05:02 76 14 35 08/18/18 05:00 76 17 144/37 (72) 100 08/18/18 04:00 98.0 83 15 137/37 (70) 100 08/18/18 04:00 Trach Collar Mechanical Ventilator Mechanical Ventilator 08/18/18 04:00 60 08/18/18 04:00 86 08/18/18 03:15 85 14 35 08/18/18 03:00 86 15 135/21 (59) 100 08/18/18 02:00 112 17 109/44 (65) 100 08/18/18 01:15 60 08/18/18 01:00 86 16 147/22 (63) 100 08/18/18 01:00 50 08/18/18 00:46 86 16 35 08/18/18 00:00 81 08/18/18 00:00 Trach Collar Mechanical Ventilator Mechanical Ventilator 08/18/18 00:00 98.0 86 16 112/59 (76) 100 08/18/18 00:00 35 08/17/18 23:00 83 16 119/19 (52) 94 08/17/18 22:58 81 14 35 08/17/18 22:00 86 16 120/19 (52) 98 08/17/18 21:01 136/19 08/17/18 21:00 88 16 136/19 (58) 98 08/17/18 20:54 85 18 35 08/17/18 20:00 98.5 84 16 136/18 (57) 97 18 20:00 80 08/17/18 20:00 Trach Collar Mechanical Ventilator Mechanical Ventilator 08/17/18 20:00 35 08/17/18 19:00 91 16 109/22 (51) 96 18 18:52 80 19 35 08/17/18 18:00 92 15 115/38 (63) 96 08/17/18 17:12 79 14 35 08/17/18 17:00 95 15 110/40 (63) 96 08/17/18 16:00 Trach Collar Trach Collar Mechanical Ventilator 08/17/18 16:00 98.1 98 16 105/25 (51) 100 08/17/18 16:00 92 08/17/18 16:00 35 Intake and Output 08/17/18 08/18/18 19:00 07:00 Intake Total 420 ml 610 ml Balance 420 ml 610 ml Free Water 30 ml IV Total 300 ml 300 ml Tube Feeding 120 ml 280 ml # Bowel Movements 2 Laboratory Tests 08/18/18 04:00: White Blood Count 10.3, Red Blood Count 2.95L, Hemoglobin 8.7L, Hematocrit 28.2L , Mean Corpuscular Volume 96, Mean Corpuscular Hemoglobin 29.4, Mean Corpuscular Hemoglobin Concent 30.7L, Red Cell Distribution Width 18.7H, Platelet Count 462H, Mean Platelet Volume 6.9, Neutrophils (%) (Auto) 82.2H, Lymphocytes (%) (Auto) 5.9L, Monocytes (%) (Auto) 10.5H, Eosinophils (%) (Auto) 0.7, Basophils (%) (Auto) 0.7, Sodium Level 137, Potassium Level 2.7*L, Chloride Level 99, Carbon Dioxide Level 30, Anion Gap 8, Blood Urea Nitrogen 18 , Creatinine 2.2H, Estimat Glomerular Filtration Rate , Glucose Level 101, Calcium Level 8.1L, Total Bilirubin 0.4, Aspartate Amino Transf (AST/SGOT) 15, Alanine Aminotransferase (ALT/SGPT) 7L, Alkaline Phosphatase 110, Total Protein 6.9, Albumin 1.5L, Globulin 5.4, Albumin/Globulin Ratio 0.3L Height (Feet): 5 Height (Inches): 2.00 Weight (Pounds): 110 Objective On vent. Trach clean. Cv IRR/IRR Lungs B ronchi. Abd SNT. BS + New PEG. E Rt. foot diabetic ulcers Chase He MD Aug 18, 2018 15:01
--- NOTE | 2018-08-18 15:09 | NUR ---
NURSE NOTES: Spoke to Marly at [facility] regarding HD order for tomorrow. Will continue to monitor.
[2018-08-18] MEDS ORDERED: Tubing IV Secondary IV ONE ×2 (15:23→15:25)
[2018-08-18] MEDS ORDERED: NS 275ml ONE ×2 (15:23→15:25)
--- NOTE | 2018-08-18 18:42 | Cardiology Progress Note ---
Assessment/Plan Assessment/Plan 1. Hypotension, possibly sepsis versus volume. 2. Paroxysmal episodes of atrial fibrillation history. 3. Bradycardia secondary to medications, amiodarone possibly. 4. Diabetes mellitus. 5. End-stage renal disease, on hemodialysis. 6. Lung collapse. 7. Respiratory failure, status post intubation. 8. Dysphagia. 9. History of dementia. 10. Pulm htn 11. Pleural effusion 12. cardaic arrest 13. chest wall pain post cpr in and out afib amido now 200 bid on hold stool ob neg x2 amiod bid off labetalol for now if need hydralazine to be used vent support s/p trach peg done tele reviewed again intermittent tachy but at this time is in sinus will start on elequis 2.5 mg bid tomorrow Subjective Cardiovascular: Reports: chest pain; Denies: lightheadedness Respiratory: Denies: shortness of breath Gastrointestinal/Abdominal: Denies: abdominal pain Genitourinary: Denies: burning Subjective on the vent not verba , denies dizziness has sob Objective Last 24 Hour Vital Signs Date Time Temp Pulse Resp B/P (MAP) Pulse Ox O2 Delivery O2 Flow Rate FiO2 08/18/18 18:00 90 16 138/39 (72) 96 08/18/18 17:15 82 15 40 08/18/18 17:00 80 16 123/35 (64) 94 08/18/18 16:00 99.1 82 17 128/41 (70) 100 08/18/18 16:00 78 08/18/18 16:00 50 08/18/18 16:00 Trach Collar Mechanical Ventilator Mechanical Ventilator 08/18/18 15:00 83 16 119/34 (62) 100 08/18/18 14:39 84 15 40 08/18/18 14:00 89 18 120/10 (46) 100 08/18/18 13:00 85 15 124/39 (67) 100 08/18/18 12:37 76 15 40 08/18/18 12:00 99.3 15 114/28 (56) 100 08/18/18 12:00 85 08/18/18 12:00 50 08/18/18 12:00 Trach Collar Mechanical Ventilator Mechanical Ventilator 08/18/18 11:00 85 15 111/30 (57) 100 08/18/18 10:33 87 16 40 08/18/18 10:00 87 16 110/21 (50) 100 08/18/18 09:00 90 18 116/18 (50) 100 08/18/18 08:42 84 15 40 08/18/18 08:20 140/27 08/18/18 08:00 Trach Collar Mechanical Ventilator Mechanical Ventilator 08/18/18 08:00 50 08/18/18 08:00 85 08/18/18 08:00 98.9 84 15 105/28 (53) 100 08/18/18 07:05 81 14 50 08/18/18 07:00 85 17 140/27 (64) 100 08/18/18 06:00 76 17 140/30 (66) 100 08/18/18 05:02 76 14 35 08/18/18 05:00 76 17 144/37 (72) 100 08/18/18 04:00 98.0 83 15 137/37 (70) 100 08/18/18 04:00 Trach Collar Mechanical Ventilator Mechanical Ventilator 08/18/18 04:00 60 08/18/18 04:00 86 08/18/18 03:15 85 14 35 08/18/18 03:00 86 15 135/21 (59) 100 08/18/18 02:00 112 17 109/44 (65) 100 08/18/18 01:15 60 08/18/18 01:00 86 16 147/22 (63) 100 08/18/18 01:00 50 08/18/18 00:46 86 16 35 08/18/18 00:00 81 08/18/18 00:00 Trach Collar Mechanical Ventilator Mechanical Ventilator 08/18/18 00:00 98.0 86 16 112/59 (76) 100 08/18/18 00:00 35 08/17/18 23:00 83 16 119/19 (52) 94 18 22:58 81 14 35 08/17/18 22:00 86 16 120/19 (52) 98 18 21:01 136/19 08/17/18 21:00 88 16 136/19 (58) 98 18 20:54 85 18 35 08/17/18 20:00 98.5 84 16 136/18 (57) 97 08/17/18 20:00 80 08/17/18 20:00 Trach Collar Mechanical Ventilator Mechanical Ventilator 08/17/18 20:00 35 08/17/18 19:00 91 16 109/22 (51) 96 08/17/18 18:52 80 19 35 General Appearance: no apparent distress Neck: supple Cardiovascular: normal rate, regular rhythm Respiratory/Chest: lungs clear Abdomen: normal bowel sounds, non tender, soft Extremities: no swelling Intake and Output 08/17/18 08/18/18 19:00 07:00 Intake Total 420 ml 610 ml Balance 420 ml 610 ml Free Water 30 ml IV Total 300 ml 300 ml Tube Feeding 120 ml 280 ml # Bowel Movements 2 Laboratory Tests Test 08/18/18 04:00 White Blood Count 10.3 K/UL (4.8-10.8) Red Blood Count 2.95 M/UL (4.20-5.40) L Hemoglobin 8.7 G/DL (12.0-16.0) L Hematocrit 28.2 % (37.0-47.0) L Mean Corpuscular Volume 96 FL (80-99) Mean Corpuscular Hemoglobin 29.4 PG (27.0-31.0) Mean Corpuscular Hemoglobin Concent 30.7 G/DL (32.0-36.0) L Red Cell Distribution Width 18.7 % (11.6-14.8) H Platelet Count 462 K/UL (150-450) H Mean Platelet Volume 6.9 FL (6.5-10.1) Neutrophils (%) (Auto) 82.2 % (45.0-75.0) H Lymphocytes (%) (Auto) 5.9 % (20.0-45.0) L Monocytes (%) (Auto) 10.5 % (1.0-10.0) H Eosinophils (%) (Auto) 0.7 % (0.0-3.0) Basophils (%) (Auto) 0.7 % (0.0-2.0) Sodium Level 137 MMOL/L (136-145) Potassium Level 2.7 MMOL/L (3.5-5.1) *L Chloride Level 99 MMOL/L (98-107) Carbon Dioxide Level 30 MMOL/L (21-32) Anion Gap 8 mmol/L (5-15) Blood Urea Nitrogen 18 mg/dL (7-18) Creatinine 2.2 MG/DL (0.55-1.30) H Estimat Glomerular Filtration Rate mL/min (>60) Glucose Level 101 MG/DL (74-106) Calcium Level 8.1 MG/DL (8.5-10.1) L Total Bilirubin 0.4 MG/DL (0.2-1.0) Aspartate Amino Transf (AST/SGOT) 15 U/L (15-37) Alanine Aminotransferase (ALT/SGPT) 7 U/L (12-78) L Alkaline Phosphatase 110 U/L (46-116) Total Protein 6.9 G/DL (6.4-8.2) Albumin 1.5 G/DL (3.4-5.0) L Globulin 5.4 g/dL Albumin/Globulin Ratio 0.3 (1.0-2.7) L Angelo Butler MD Aug 18, 2018 18:42
--- NOTE | 2018-08-18 19:15 | NUR ---
NURSE NOTES: Endorsement received from BALDO Rivero. Patient awake and oriented x 3. Able to communicate by nodding, or shaking head Trache to vent Shiley 8.0 AC 8 Vt 450 PEEP 5 50% FiO2. PEG in place, secured with abdominal binder. Dressing dry and intact. Ongoing feeding Nepro 40ml/hr. No residual. Right upper arm midline. Receiving D5 1/2 NS at 30 ml/hr. On P200 mattress. Bilateral soft wrist restraints present. Head of bed elevated. Bed locked and in low position.
[2018-08-18] MEDS: Dyna-Hex 2% Top Sol 2oz TOPIC SCH (21:21)
--- NOTE | 2018-08-18 22:00 | NUR ---
NURSE NOTES: Patient repositioned. Rectal tube intact, draining per gravity.
--- NOTE | 2018-08-18 23:00 | NUR ---
NURSE NOTES: Patient awake, watching tv. No pain or discomfort.
[2018-08-19] VITALS (24 sets, daily range): BP systolic 75–176; BP diastolic 12–141
--- NOTE | 2018-08-19 01:00 | NUR ---
NURSE NOTES: Patient asleep. No shortness of breath
--- NOTE | 2018-08-19 03:00 | NUR ---
NURSE NOTES: Repositioned. No pain or discomfort,
--- NOTE | 2018-08-19 05:00 | NUR ---
NURSE NOTES: Bed bath, oral care, change of dressings and linens done.
[2018-08-19 05:52] LABS: BASOPHILS % (AUTO) 0.8 % (0.0-2.0); EOSINOPHILS % (AUTO) 1.1 % (0.0-3.0); HEMATOCRIT 29.9 % (37.0-47.0); HEMOGLOBIN 9.1 G/DL (12.0-16.0); LYMPHOCYTES % (AUTO) 5.1 % (20.0-45.0); MEAN CORPUSCULAR VOLUME 96 FL (80-99); MONOCYTES % (AUTO) 9.3 % (1.0-10.0); NEUTROPHILS % (AUTO) 83.7 % (45.0-75.0); PLATELET COUNT 495 K/UL (150-450); RED BLOOD COUNT 3.12 M/UL (4.20-5.40); RED CELL DISTRIBUTION WIDTH 18.9 % (11.6-14.8); WHITE BLOOD COUNT 10.2 K/UL (4.8-10.8)
[2018-08-19] MEDS ORDERED: Heparin Sod 1000 units/ml 10ml IV PRN (06:00)
--- NOTE | 2018-08-19 06:51 | NUR ---
RESPIRATORY NOTE: Patient received on current prescribed vent settings of AC VC 450 +5 40%. Anbu bag at bedside and ventilator plugged into red outlet. Patient found alert and awake and under no notable distress. Patient appears stable at this time, and will continue to monitor.
--- NOTE | 2018-08-19 07:05 | NUR ---
HAND-OFF: Report given to BALDO Bello.
[2018-08-19 07:10] LABS: ALANINE AMINOTRANSFERASE < 6 U/L (12-78); ALBUMIN 1.5 G/DL (3.4-5.0); ALBUMIN/GLOBULIN RATIO 0.3 (1.0-2.7); ALKALINE PHOSPHATASE 137 U/L (46-116); ANION GAP 9 mmol/L (5-15); ASPARTATE AMINO TRANSFERASE 16 U/L (15-37); BILIRUBIN,TOTAL 0.3 MG/DL (0.2-1.0); BLOOD UREA NITROGEN 24 mg/dL (7-18); CALCIUM 8.5 MG/DL (8.5-10.1); CARBON DIOXIDE 29 MMOL/L (21-32); CHLORIDE 98 MMOL/L (98-107); CREATININE 2.7 MG/DL (0.55-1.30); SODIUM 136 MMOL/L (136-145)
--- NOTE | 2018-08-19 07:10 | NUR ---
NURSE NOTES: Received patient from Huan Mac. Received patient in bed alert X3, patient is trach ( trach inserted 08/15) to vent, vent settings AC 8, TV 450, Fio2 40%, P5. 02 saturation 98%. Bilateral lungs are diminished upon auscultation. Patient is connected to the nurse monitoring showing sinus rhythm at this moment. Patient abdomen is soft and non tender, patient has g-tube dressing is dry and intact, no residual noted, Patient has feeding running Nepro 40ml. Patient has a rectal tube with dark brown stool noted. Patient has dialysis scheduled for today, av shunt is in the left arm thrill felt upon palpation and bruit heard upon auscultation. patient has bilateral leg ulcers, sacral wound noted, dressing is dry an intact. patient has a right upper arm midline running at D5 0.45 30ml/hr. Patient has bilateral wrist restraints. Head of bed is at 30 degrees, bed is locked and in the lowest position, 3 side rails are up, bed is locked and in the lowest position. Will continue to monitor patient and follow plan of care.
[2018-08-19] MEDS: Amiodarone 200mg tab NG SCH ×2 (08:04→20:30)
[2018-08-19] MEDS: Vitamin D 1000 IU Tab GT SCH (08:05)
[2018-08-19] MEDS: Pantoprazole Inj IVP SCH ×2 (08:05→20:27)
[2018-08-19] MEDS: Minoxidil 2.5mg tab NG SCH ×2 (08:05→20:29)
[2018-08-19] MEDS: D5 1/2NS 1,000 ML IV SCH (08:06)
--- NOTE | 2018-08-19 08:30 | NUR ---
NURSE NOTES: Patient has began dialysis. Patient has received medications and will continue to monitor patient and follow plan of care.
--- NOTE | 2018-08-19 08:35 | Nephrology Progress Note ---
Assessment/Plan Assessment Seee below Plan MOF resolving. ESRD HD q MWF Anemia of CKD , DARRYN high dose. Transfuse PRN. A. 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 with LAE. LVEF 65% . Anticoagulate when stable. REGINALDO Butler. In and out A. Fib. Post trach + PEG . Referred to [facility]. See orders. DW pt's son. Needs extensive Vascular W/U. Subjective Subjective On Vent. Alert. Post Trach and PEG. HD starting. Objective Objective Last 24 Hour Vital Signs Date Time Temp Pulse Resp B/P (MAP) Pulse Ox O2 Delivery O2 Flow Rate FiO2 08/19/18 08:05 119/22 08/19/18 06:44 89 14 40 08/19/18 06:00 88 19 108/16 (46) 99 08/19/18 05:26 98 18 40 08/19/18 05:00 113 19 112/21 (51) 92 08/19/18 04:00 Trach Collar Mechanical Ventilator Mechanical Ventilator 08/19/18 04:00 98.5 81 16 128/35 (66) 98 08/19/18 04:00 40 08/19/18 04:00 81 08/19/18 03:13 82 16 40 08/19/18 03:00 81 16 130/35 (66) 98 08/19/18 02:00 77 17 120/13 (48) 98 08/19/18 01:05 70 12 40 08/19/18 01:00 86 17 120/16 (50) 98 08/19/18 00:00 Trach Collar Mechanical Ventilator Mechanical Ventilator 08/19/18 00:00 98.7 77 17 113/23 (53) 98 08/19/18 00:00 80 08/19/18 00:00 40 08/18/18 23:00 86 17 114/21 (52) 98 08/18/18 22:57 83 17 40 08/18/18 22:00 88 17 109/26 (53) 98 08/18/18 21:26 79 16 40 18 21:22 121/37 08/18/18 21:00 40 08/18/18 21:00 85 16 121/37 (65) 99 08/18/18 20:00 50 08/18/18 20:00 79 08/18/18 20:00 Trach Collar Mechanical Ventilator Mechanical Ventilator 08/18/18 20:00 98.5 80 14 129/28 (61) 99 08/18/18 19:10 83 15 40 08/18/18 19:00 81 15 122/18 (52) 99 08/18/18 18:00 90 16 138/39 (72) 96 08/18/18 17:15 82 15 40 08/18/18 17:00 80 16 123/35 (64) 94 08/18/18 16:00 99.1 82 17 128/41 (70) 100 08/18/18 16:00 78 08/18/18 16:00 50 08/18/18 16:00 Trach Collar Mechanical Ventilator Mechanical Ventilator 08/18/18 15:00 83 16 119/34 (62) 100 08/18/18 14:39 84 15 40 08/18/18 14:00 89 18 120/10 (46) 100 08/18/18 13:00 85 15 124/39 (67) 100 08/18/18 12:37 76 15 40 08/18/18 12:00 99.3 15 114/28 (56) 100 08/18/18 12:00 85 08/18/18 12:00 50 08/18/18 12:00 Trach Collar Mechanical Ventilator Mechanical Ventilator 08/18/18 11:00 85 15 111/30 (57) 100 08/18/18 10:33 87 16 40 08/18/18 10:00 87 16 110/21 (50) 100 08/18/18 09:00 90 18 116/18 (50) 100 08/18/18 08:42 84 15 40 Intake and Output 08/18/18 08/19/18 19:00 07:00 Intake Total 510 ml 860 ml Balance 510 ml 860 ml Free Water 30 ml IV Total 30 ml 330 ml Tube Feeding 480 ml 440 ml Other 60 ml # Bowel Movements 3 3 Laboratory Tests 08/19/18 04:00: White Blood Count 10.2, Red Blood Count 3.12L, Hemoglobin 9.1L, Hematocrit 29.9L , Mean Corpuscular Volume 96, Mean Corpuscular Hemoglobin 29.3, Mean Corpuscular Hemoglobin Concent 30.5L, Red Cell Distribution Width 18.9H, Platelet Count 495H, Mean Platelet Volume 6.2L, Neutrophils (%) (Auto) 83.7H, Lymphocytes (%) (Auto) 5.1L, Monocytes (%) (Auto) 9.3, Eosinophils (%) (Auto) 1.1, Basophils (%) (Auto) 0.8, Sodium Level 136, Potassium Level 3.0L, Chloride Level 98, Carbon Dioxide Level 29, Anion Gap 9, Blood Urea Nitrogen 24H, Creatinine 2.7H, Estimat Glomerular Filtration Rate , Glucose Level 121H, Calcium Level 8.5, Total Bilirubin 0.3, Aspartate Amino Transf (AST/SGOT) 16, Alanine Aminotransferase (ALT/SGPT) < 6L, Alkaline Phosphatase 137H, Total Protein 6.8, Albumin 1.5L, Globulin 5.3, Albumin/Globulin Ratio 0.3L Height (Feet): 5 Height (Inches): 2.00 Weight (Pounds): 110 Objective On vent. Trach clean. Cv IRR/IRR Lungs B ronchi. Abd SNT. BS + New PEG. E Rt. foot diabetic ulcers Chase He MD Aug 19, 2018 08:35
--- NOTE | 2018-08-19 08:50 | Pulmonology Progress Note ---
Assessment/Plan Assessment/Plan IMPRESSION: 1. Hypotension. 2. Sepsis. 3. Atrial fibrillation. 4. Bradycardia. 5. Diabetes mellitus. 6. End-stage renal disease on dialysis. 7. Left lung collapse. Resolved 8. Respiratory failure. now status post tracheostomy 9. Dysphagia. 10. Dementia. 11. Anemia 12. Pneumonia DISCUSSION: 1. Continue medications. 2. CXR improved 3. status post tracheostomy 4. Central access 4. S/p G-tube 5. Stable to transfer to [facility] Andres Allan M.D. Subjective Interval Events: On vent; s/p trach; Fi)2 40% Constitutional: Reports: no symptoms HEENT: Repors: no symptoms Respiratory: Reports: no symptoms Cardiovascular: Reports: no symptoms Gastrointestinal/Abdominal: Reports: no symptoms Genitourinary: Reports: no symptoms Allergies: Coded Allergies: No Known Allergies (Unverified , 07/25/18) Objective Last 24 Hour Vital Signs Date Time Temp Pulse Resp B/P (MAP) Pulse Ox O2 Delivery O2 Flow Rate FiO2 08/19/18 08:46 88 17 40 08/19/18 08:05 119/22 08/19/18 06:44 89 14 40 08/19/18 06:00 88 19 108/16 (46) 99 08/19/18 05:26 98 18 40 08/19/18 05:00 113 19 112/21 (51) 92 08/19/18 04:00 Trach Collar Mechanical Ventilator Mechanical Ventilator 08/19/18 04:00 98.5 81 16 128/35 (66) 98 08/19/18 04:00 40 08/19/18 04:00 81 08/19/18 03:13 82 16 40 08/19/18 03:00 81 16 130/35 (66) 98 08/19/18 02:00 77 17 120/13 (48) 98 08/19/18 01:05 70 12 40 08/19/18 01:00 86 17 120/16 (50) 98 08/19/18 00:00 Trach Collar Mechanical Ventilator Mechanical Ventilator 08/19/18 00:00 98.7 77 17 113/23 (53) 98 08/19/18 00:00 80 18 00:00 40 08/18/18 23:00 86 17 114/21 (52) 98 08/18/18 22:57 83 17 40 08/18/18 22:00 88 17 109/26 (53) 98 08/18/18 21:26 79 16 40 18 21:22 121/37 08/18/18 21:00 40 08/18/18 21:00 85 16 121/37 (65) 99 08/18/18 20:00 50 08/18/18 20:00 79 08/18/18 20:00 Trach Collar Mechanical Ventilator Mechanical Ventilator 08/18/18 20:00 98.5 80 14 129/28 (61) 99 08/18/18 19:10 83 15 40 08/18/18 19:00 81 15 122/18 (52) 99 08/18/18 18:00 90 16 138/39 (72) 96 08/18/18 17:15 82 15 40 08/18/18 17:00 80 16 123/35 (64) 94 08/18/18 16:00 99.1 82 17 128/41 (70) 100 08/18/18 16:00 78 08/18/18 16:00 50 08/18/18 16:00 Trach Collar Mechanical Ventilator Mechanical Ventilator 08/18/18 15:00 83 16 119/34 (62) 100 08/18/18 14:39 84 15 40 08/18/18 14:00 89 18 120/10 (46) 100 08/18/18 13:00 85 15 124/39 (67) 100 08/18/18 12:37 76 15 40 08/18/18 12:00 99.3 15 114/28 (56) 100 08/18/18 12:00 85 08/18/18 12:00 50 08/18/18 12:00 Trach Collar Mechanical Ventilator Mechanical Ventilator 08/18/18 11:00 85 15 111/30 (57) 100 08/18/18 10:33 87 16 40 08/18/18 10:00 87 16 110/21 (50) 100 08/18/18 09:00 90 18 116/18 (50) 100 Intake and Output 08/18/18 08/19/18 19:00 07:00 Intake Total 510 ml 860 ml Balance 510 ml 860 ml Free Water 30 ml IV Total 30 ml 330 ml Tube Feeding 480 ml 440 ml Other 60 ml # Bowel Movements 3 3 General Appearance: no acute distress HEENT: normocephalic, status post trach Respiratory/Chest: chest wall non-tender, lungs clear Cardiovascular: normal rate Abdomen: normal bowel sounds Laboratory Tests 08/19/18 04:00: White Blood Count 10.2, Red Blood Count 3.12L, Hemoglobin 9.1L, Hematocrit 29.9L , Mean Corpuscular Volume 96, Mean Corpuscular Hemoglobin 29.3, Mean Corpuscular Hemoglobin Concent 30.5L, Red Cell Distribution Width 18.9H, Platelet Count 495H, Mean Platelet Volume 6.2L, Neutrophils (%) (Auto) 83.7H, Lymphocytes (%) (Auto) 5.1L, Monocytes (%) (Auto) 9.3, Eosinophils (%) (Auto) 1.1, Basophils (%) (Auto) 0.8, Sodium Level 136, Potassium Level 3.0L, Chloride Level 98, Carbon Dioxide Level 29, Anion Gap 9, Blood Urea Nitrogen 24H, Creatinine 2.7H, Estimat Glomerular Filtration Rate , Glucose Level 121H, Calcium Level 8.5, Total Bilirubin 0.3, Aspartate Amino Transf (AST/SGOT) 16, Alanine Aminotransferase (ALT/SGPT) < 6L, Alkaline Phosphatase 137H, Total Protein 6.8, Albumin 1.5L, Globulin 5.3, Albumin/Globulin Ratio 0.3L Current Medications Medications (Trade) Dose Ordered Sig/Renetta Route PRN Reason Start Time Stop Time Status Last Admin Dose Admin Acetaminophen (Tylenol) 650 mg Q6H PRN ORAL Mild Pain/Temp > 100.5 08/02/18 14:15 09/01/18 14:14 08/16/18 18:45 Albuterol/ Ipratropium (Albuterol/ Ipratropium) 3 ml Q6H PRN HHN Shortness of Breath 08/16/18 19:15 08/21/18 19:14 08/16/18 21:33 Amiodarone HCl (Cordarone) 200 mg EVERY 12 HOURS NG 08/06/18 21:00 09/03/18 13:59 08/19/18 08:04 Apixaban (Eliquis) 2.5 mg BID ORAL 08/19/18 09:00 09/18/18 08:59 08/19/18 08:10 Chlorhexidine Gluconate (Rylie-Hex 2%) 1 applic DAILY@2000 TOPIC 07/26/18 20:00 08/25/18 19:59 08/18/18 21:21 Collagenase (Santyl) 1 applic Q12HR TOPIC 08/10/18 21:00 09/03/18 20:59 08/19/18 08:16 Dextrose/Sodium Chloride 1,000 ml @ 30 mls/hr Q24H IV 08/17/18 09:00 09/16/18 08:59 08/19/18 08:06 Epoetin Paul (Procrit (for ESRD on dialysis)) 10,000 units SUBQ 07/27/18 21:00 08/26/18 20:59 08/17/18 21:01 Heparin Sodium (Porcine) (Heparin Sod 1000 units/ml 10ml) 2,000 unit ONCE PRN IV dialysis use 08/19/18 06:00 08/19/18 21:00 Minoxidil (Loniten) 5 mg Q12HR NG 07/31/18 21:00 08/30/18 20:59 08/19/18 08:05 Pantoprazole (Protonix) 40 mg Q12HR IVP 07/25/18 21:00 08/25/18 08:59 08/19/18 08:05 Sodium Chloride 1,000 ml @ 500 mls/hr Q2H PRN IVLG sbp<90 during hd 08/19/18 06:00 08/19/18 21:00 Vitamin D (Vitamin D) 1,000 intlu DAILY GT 08/07/18 10:00 09/06/18 09:59 08/19/18 08:05 Andres Allan MD Aug 19, 2018 08:50
[2018-08-19] MEDS ORDERED: Eliquis 2.5mg tablet ORAL SCH (09:00)
[2018-08-19] MEDS: Albuterol/Ipratropium 3ml neb HHN PRN (10:27)
--- NOTE | 2018-08-19 10:30 | NUR ---
NURSE NOTES: Patient is still being dialyzed. Patient is alert mouthing words, patient denies pain at this time, patient is watching television. No acute distress noted. Patient denies pain. No change in condition. Will continue to monitor patient and follow plan of care.
--- NOTE | 2018-08-19 12:30 | NUR ---
NURSE NOTES: Patient completed dialysis, 2500ml removed, patient is stable. BP 127/73. No acute distress noted. Patient denies pain. Head of bed is at 30 degrees, bed is locked and in the lowest position, 3 side rails are up. Will continue to monitor patient and follow plan of care.
--- NOTE | 2018-08-19 14:30 | NUR ---
NURSE NOTES: Patient repositioned, patient is alert watching tv, patient denies pain. Patient is watching television. Head of bd is at 30 degrees, bed is locked and in the lowest position. Will continue to monitor patient and follow plan of care.
--- NOTE | 2018-08-19 15:12 | GI Progress Note ---
Assessment/Plan Problems: (1) Encounter for PEG (percutaneous endoscopic gastrostomy) ICD Codes: Z43.1 - Encounter for attention to gastrostomy SNOMED: 720618402, 636018144 (2) Severe malnutrition ICD Codes: E43 - Unspecified severe protein-calorie malnutrition SNOMED: 97783022 (3) Dehydration ICD Codes: E86.0 - Dehydration SNOMED: 74735682 Status: stable Status Narrative Discussed with Dr. Cox Assessment/Plan Assessment - Dysphagia - Resp failure - ESRD - Anemia - Status post PEG Recommendations 1. Abdominal binder. 2. Elevate the head of the bed at all times. 3. G-tube flush. 4. G-tube care. 5. Start tube feeding later today per RD to goal Monitor H&H, PRN transfusions PPI Electrolyte correction Follow-up labs The patient was seen and examined at bedside and all new and available data was reviewed in the patients chart. I agree with the above findings, impression and plan. (Patient seen earlier today. Signature stamp does not reflect patient encounter time.). - Oc Cox MD Subjective Subjective limited Objective Last 24 Hour Vital Signs Date Time Temp Pulse Resp B/P (MAP) Pulse Ox O2 Delivery O2 Flow Rate FiO2 08/19/18 12:43 138 23 40 08/19/18 12:00 Mechanical Ventilator Mechanical Ventilator 08/19/18 12:00 40 08/19/18 12:00 110 20 142/90 (107) 96 08/19/18 11:00 107 20 127/73 (91) 97 08/19/18 10:57 107 17 98 Mechanical Ventilator 35 08/19/18 10:30 100 16 99 Mechanical Ventilator 40 08/19/18 10:27 90 19 40 08/19/18 10:00 98 20 117/54 (75) 98 08/19/18 09:00 95 19 126/27 (60) 100 08/19/18 08:46 88 17 40 08/19/18 08:05 119/22 08/19/18 08:00 88 19 123/73 (90) 99 08/19/18 08:00 Mechanical Ventilator Mechanical Ventilator 08/19/18 08:00 40 08/19/18 08:00 89 08/19/18 07:00 99.4 90 16 84/12 (36) 100 08/19/18 06:44 89 14 40 08/19/18 06:00 88 19 108/16 (46) 99 08/19/18 05:26 98 18 40 08/19/18 05:00 113 19 112/21 (51) 92 08/19/18 04:00 Trach Collar Mechanical Ventilator Mechanical Ventilator 08/19/18 04:00 98.5 81 16 128/35 (66) 98 08/19/18 04:00 40 08/19/18 04:00 81 08/19/18 03:13 82 16 40 08/19/18 03:00 81 16 130/35 (66) 98 08/19/18 02:00 77 17 120/13 (48) 98 08/19/18 01:05 70 12 40 08/19/18 01:00 86 17 120/16 (50) 98 08/19/18 00:00 Trach Collar Mechanical Ventilator Mechanical Ventilator 08/19/18 00:00 98.7 77 17 113/23 (53) 98 08/19/18 00:00 80 08/19/18 00:00 40 08/18/18 23:00 86 17 114/21 (52) 98 08/18/18 22:57 83 17 40 08/18/18 22:00 88 17 109/26 (53) 98 18 21:26 79 16 40 08/18/18 21:22 121/37 08/18/18 21:00 40 08/18/18 21:00 85 16 121/37 (65) 99 08/18/18 20:00 50 08/18/18 20:00 79 08/18/18 20:00 Trach Collar Mechanical Ventilator Mechanical Ventilator 08/18/18 20:00 98.5 80 14 129/28 (61) 99 18 19:10 83 15 40 08/18/18 19:00 81 15 122/18 (52) 99 18 18:00 90 16 138/39 (72) 96 18 17:15 82 15 40 08/18/18 17:00 80 16 123/35 (64) 94 08/18/18 16:00 99.1 82 17 128/41 (70) 100 08/18/18 16:00 78 08/18/18 16:00 50 08/18/18 16:00 Trach Collar Mechanical Ventilator Mechanical Ventilator Intake and Output 08/18/18 08/19/18 19:00 07:00 Intake Total 510 ml 930 ml Balance 510 ml 930 ml Free Water 60 ml IV Total 30 ml 330 ml Tube Feeding 480 ml 480 ml Other 60 ml # Bowel Movements 3 3 Laboratory Tests Test 08/19/18 04:00 White Blood Count 10.2 K/UL (4.8-10.8) Red Blood Count 3.12 M/UL (4.20-5.40) L Hemoglobin 9.1 G/DL (12.0-16.0) L Hematocrit 29.9 % (37.0-47.0) L Mean Corpuscular Volume 96 FL (80-99) Mean Corpuscular Hemoglobin 29.3 PG (27.0-31.0) Mean Corpuscular Hemoglobin Concent 30.5 G/DL (32.0-36.0) L Red Cell Distribution Width 18.9 % (11.6-14.8) H Platelet Count 495 K/UL (150-450) H Mean Platelet Volume 6.2 FL (6.5-10.1) L Neutrophils (%) (Auto) 83.7 % (45.0-75.0) H Lymphocytes (%) (Auto) 5.1 % (20.0-45.0) L Monocytes (%) (Auto) 9.3 % (1.0-10.0) Eosinophils (%) (Auto) 1.1 % (0.0-3.0) Basophils (%) (Auto) 0.8 % (0.0-2.0) Sodium Level 136 MMOL/L (136-145) Potassium Level 3.0 MMOL/L (3.5-5.1) L Chloride Level 98 MMOL/L (98-107) Carbon Dioxide Level 29 MMOL/L (21-32) Anion Gap 9 mmol/L (5-15) Blood Urea Nitrogen 24 mg/dL (7-18) H Creatinine 2.7 MG/DL (0.55-1.30) H Estimat Glomerular Filtration Rate mL/min (>60) Glucose Level 121 MG/DL (74-106) H Calcium Level 8.5 MG/DL (8.5-10.1) Total Bilirubin 0.3 MG/DL (0.2-1.0) Aspartate Amino Transf (AST/SGOT) 16 U/L (15-37) Alanine Aminotransferase (ALT/SGPT) < 6 U/L (12-78) L Alkaline Phosphatase 137 U/L (46-116) H Total Protein 6.8 G/DL (6.4-8.2) Albumin 1.5 G/DL (3.4-5.0) L Globulin 5.3 g/dL Albumin/Globulin Ratio 0.3 (1.0-2.7) L Height (Feet): 5 Height (Inches): 2.00 Weight (Pounds): 110 General Appearance: WD/WN, no apparent distress, alert Cardiovascular: normal rate Respiratory/Chest: normal breath sounds, no respiratory distress, other - Tracheostomy Abdominal Exam: normal bowel sounds, non tender, soft, GT site - Clean dry and intact Extremities: non-tender Rita Quintanilla NP Aug 19, 2018 15:12
--- NOTE | 2018-08-19 16:30 | NUR ---
NURSE NOTES: Patient repositioned, patient denies pain at this time, patient is alert, family is at bed side. No change in condition. Head of bed is at bedside and in the lowest position, 3 side rails are up, bed alarm s on, call light is within reach. Will continue to monitor patient and follow plan of care.
[2018-08-19 16:41] LABS: EOSINOPHILS % (AUTO) 0.6 % (0.0-3.0); HEMATOCRIT 29.7 % (37.0-47.0); HEMOGLOBIN 9.1 G/DL (12.0-16.0); MEAN CORPUSCULAR VOLUME 96 FL (80-99); MONOCYTES % (AUTO) 8.1 % (1.0-10.0); NEUTROPHILS % (AUTO) 86.5 % (45.0-75.0); PLATELET COUNT 474 K/UL (150-450); RED BLOOD COUNT 3.11 M/UL (4.20-5.40); RED CELL DISTRIBUTION WIDTH 18.5 % (11.6-14.8)
[2018-08-19 16:42] LABS: BASOPHILS % (AUTO) 0.8 % (0.0-2.0)
--- NOTE | 2018-08-19 18:30 | NUR ---
NURSE NOTES: Patient repositioned, patient linen changed and rectal tube is in place and patent. No acute distress, noted 02 saturation 98%. Head of bed is at 30 degrees, bed is locked and in the lowest position, 3 side rails are up, bed alarm is on, call light is within reach. Will continue to monitor patient and follow plan of care.
[2018-08-19] MEDS: Eliquis 2.5mg tablet NG SCH (18:51)
--- NOTE | 2018-08-19 18:58 | NUR ---
RESPIRATORY NOTE: Received pt on AC 8, 450VT, 40%, PEEP +5. Pt trch-dependent w/ a cuffed, Shiley 8 tube. Pt alert/awake/follows commands. B/S geni. ronchi/diminished, sxn minimal amounts of thick/thin, white secretions. Both hands on soft restraints as pt still has a tendency to pull out her IVs/de la cruz/ekg cords. Vent plugged into red outlet, ambubag at bedside. Pt denies SOB/chest pain at this time, tolerating current settings. Will continue plan of care.
--- NOTE | 2018-08-19 19:00 | NUR ---
HAND-OFF: Report given to BALDO Billingsley. No change in condition.
--- NOTE | 2018-08-19 19:15 | NUR ---
NURSE NOTES: Received pt from BALDO Jensen. patient awake in bed, able to follow simple commands and shake head for yes or no. Shiley 8, AC 8/ TV 450, FIO2 40%, PEEP 5, SPO2 100%. Skip. soft wrist restraints in place, skin intact. GT running Nephro @40cc/hr, no residual, HOB 30 degrees, abd binder. abdominal distention on right lower quadrant noted. x3 wound on right leg, right heel, left heel and sacral dressing c/d/i. On p200 mattress. FC in place, pt is anuric. Rectal tube draining loose brown stool to gravity. Pt is SR and occasional A-fib on seismograph helper. LAV shunt noted with positive thrill and bruit. FLACO PICC running TKO, dressing change done 08/13. No s/sx of acute distress noted at this time. Will continue plan of care.
[2018-08-19] MEDS ORDERED: D5 1/2NS 1000ml IV ONE (19:41)
[2018-08-19] MEDS ORDERED: Tubing IV Secondary IV ONE (19:41)
[2018-08-19] MEDS: Dyna-Hex 2% Top Sol 2oz TOPIC SCH (20:27)
[2018-08-19] MEDS: Epogen (for ESRD on dialysis) SUBQ SCH (20:29)
--- NOTE | 2018-08-19 21:36 | NUR ---
NURSE NOTES: repositioned and tolerated well. Oral care given. Denies pain at this time.
[2018-08-20] VITALS (24 sets, daily range): BP systolic 70–124; BP diastolic 11–90
--- NOTE | 2018-08-20 00:48 | NUR ---
NURSE NOTES: Patient awake watching television. No s/sx of acute distress noted. Afebrile.
--- NOTE | 2018-08-20 03:51 | NUR ---
NURSE NOTES: Repositioned patient and changed dressing on right leg and sacral area. Tolerated well. Rectal tube draining well. VSS.
--- NOTE | 2018-08-20 05:15 | NUR ---
NURSE NOTES: CHG bath given. Central line dressing on FLACO midline changed. Repositioned and tolerated well.
--- NOTE | 2018-08-20 07:27 | NUR ---
HAND-OFF: Report given to BALDO Meyer using SBAR. No s/sx of acute distress noted.
--- NOTE | 2018-08-20 07:28 | NUR ---
NURSE NOTES: Report received from Camille Diana RN. Pt is awake, alert and oriented x2-3. On bilateral soft restraints. Sinus rhythm on court monitor in 80's. AC 8, TV 450, FiO2 40%, P 5. No respiratory distress noted. O2 sat 100%. G-tube in place receiving Nepro at 40cc/hr. No residual noted. Rectal tube in place draining to gravity. Right UA midline patent and asymptomatic. Left AV shunt for HD noted. Bed in lowest position. Side rails up x3. Will resume plan of care.
[2018-08-20] MEDS: Pantoprazole Inj IVP SCH ×2 (08:19→20:37)
--- NOTE | 2018-08-20 08:19 | NUR ---
Received Patient on Vent Settings of ACVC RR 8, VT 450, FIO2 40%, PEEP +5. Patient has Shiley 8 tracheostomy tube that is secure and patent. Pt is alert, awake, and follows commands. Bilateral rhonchi heard upon auscultation. Suction minimal amounts of thin, clear secretions. Vent plugged into red outlet. Ambubag at bedside. Will continue to monitor throughout the day.
[2018-08-20] MEDS: Minoxidil 2.5mg tab NG SCH ×2 (08:20→20:37)
[2018-08-20] MEDS: Vitamin D 1000 IU Tab GT SCH (08:20)
[2018-08-20] MEDS: Eliquis 2.5mg tablet NG SCH ×2 (08:20→17:26)
[2018-08-20] MEDS: Amiodarone 200mg tab NG SCH ×2 (08:20→20:37)
--- NOTE | 2018-08-20 09:17 | Pulmonology Progress Note ---
Assessment/Plan Assessment/Plan IMPRESSION: 1. Hypotension. Resolved. 2. Sepsis. 3. Atrial fibrillation. 4. Bradycardia. 5. Diabetes mellitus. 6. End-stage renal disease on dialysis. 7. Left lung collapse. Resolved 8. Respiratory failure. now status post tracheostomy 9. Dysphagia. 10. Dementia. 11. Anemia 12. Pneumonia DISCUSSION: 1. Continue medications. 2. CXR improved 3. Status post tracheostomy 4. S/p G-tube 5. Stable to transfer to [facility] Andres Allan M.D. Subjective Interval Events: No new events Constitutional: Reports: no symptoms HEENT: Repors: no symptoms Respiratory: Reports: no symptoms Cardiovascular: Reports: no symptoms Gastrointestinal/Abdominal: Reports: no symptoms Genitourinary: Reports: no symptoms Neurologic: Reports: no symptoms Allergies: Coded Allergies: No Known Allergies (Unverified , 07/25/18) Objective Last 24 Hour Vital Signs Date Time Temp Pulse Resp B/P (MAP) Pulse Ox O2 Delivery O2 Flow Rate FiO2 08/20/18 08:44 87 15 40 08/20/18 08:20 95/70 08/20/18 07:00 85 15 111/90 (97) 100 08/20/18 06:55 82 14 40 08/20/18 06:00 81 14 115/33 (60) 100 08/20/18 05:21 79 16 40 08/20/18 05:00 81 17 122/19 (53) 90 08/20/18 04:00 99.2 82 17 96/38 (57) 100 08/20/18 04:00 86 08/20/18 04:00 Mechanical Ventilator Mechanical Ventilator 08/20/18 04:00 40 08/20/18 03:00 84 17 101/40 (60) 100 08/20/18 03:00 85 16 40 08/20/18 02:00 86 18 70/25 (40) 100 08/20/18 01:10 89 20 40 08/20/18 01:00 88 16 114/29 (57) 100 08/20/18 00:00 40 08/20/18 00:00 98.7 88 17 123/11 (48) 100 08/20/18 00:00 78 08/20/18 00:00 Mechanical Ventilator Mechanical Ventilator 08/19/18 23:00 88 16 121/29 (59) 100 08/19/18 22:50 94 18 40 08/19/18 22:00 87 18 110/37 (61) 100 08/19/18 21:00 86 18 75/17 (36) 100 08/19/18 21:00 85 17 40 08/19/18 20:29 91/56 08/19/18 20:00 Mechanical Ventilator Mechanical Ventilator 08/19/18 20:00 40 08/19/18 20:00 91 19 81/17 (38) 99 08/19/18 20:00 83 08/19/18 19:00 99.2 93 19 176/141 (153) 100 08/19/18 18:55 91 18 40 08/19/18 18:00 93 19 110/37 (61) 100 08/19/18 17:07 88 18 40 08/19/18 17:00 99.4 90 20 75/20 (38) 87 08/19/18 16:00 40 08/19/18 16:00 90 18 101/13 (42) 100 08/19/18 16:00 83 08/19/18 16:00 Mechanical Ventilator Mechanical Ventilator 08/19/18 15:00 100 20 80/44 (56) 98 08/19/18 14:39 99 21 40 08/19/18 14:00 107 20 95/28 (50) 98 08/19/18 13:00 109 19 89/39 (56) 97 08/19/18 12:43 138 23 40 08/19/18 12:00 Mechanical Ventilator Mechanical Ventilator 08/19/18 12:00 40 08/19/18 12:00 106 08/19/18 12:00 110 20 142/90 (107) 96 08/19/18 11:00 107 20 127/73 (91) 97 08/19/18 10:57 107 17 98 Mechanical Ventilator 35 08/19/18 10:30 100 16 99 Mechanical Ventilator 40 08/19/18 10:27 90 19 40 08/19/18 10:00 98 20 117/54 (75) 98 Intake and Output 08/19/18 08/20/18 18:59 06:59 Intake Total 730 ml 540 ml Output Total 2500 ml Balance -1770 ml 540 ml Free Water 60 ml 60 ml IV Total 150 ml Tube Feeding 520 ml 480 ml Hemodialysis UF 2500 ml # Bowel Movements 3 3 General Appearance: no acute distress HEENT: status post trach Respiratory/Chest: chest wall non-tender, lungs clear Cardiovascular: normal peripheral pulses, normal rate Abdomen: normal bowel sounds Laboratory Tests 08/19/18 15:20: White Blood Count 13.0H, Red Blood Count 3.11L, Hemoglobin 9.1L, Hematocrit 29.7L, Mean Corpuscular Volume 96, Mean Corpuscular Hemoglobin 29.4, Mean Corpuscular Hemoglobin Concent 30.8L, Red Cell Distribution Width 18.5H, Platelet Count 474H, Mean Platelet Volume 6.4L, Neutrophils (%) (Auto) 86.5H, Lymphocytes (%) (Auto) 4.0L, Monocytes (%) (Auto) 8.1, Eosinophils (%) (Auto) 0.6, Basophils (%) (Auto) 0.8, Phosphorus Level 2.8 Current Medications Medications (Trade) Dose Ordered Sig/Renetta Route PRN Reason Start Time Stop Time Status Last Admin Dose Admin Acetaminophen (Tylenol) 650 mg Q6H PRN GT Mild Pain/Temp > 100.5 08/19/18 16:00 09/18/18 15:59 Albuterol/ Ipratropium (Albuterol/ Ipratropium) 3 ml Q6H PRN HHN Shortness of Breath 08/16/18 19:15 08/21/18 19:14 08/19/18 10:27 Amiodarone HCl (Cordarone) 200 mg EVERY 12 HOURS NG 08/06/18 21:00 09/03/18 13:59 08/20/18 08:20 Apixaban (Eliquis) 2.5 mg BID NG 08/19/18 18:00 09/18/18 08:59 08/20/18 08:20 Chlorhexidine Gluconate (Rylie-Hex 2%) 1 applic DAILY@1999 TOPIC 07/26/18 20:00 08/25/18 19:59 08/19/18 20:27 Collagenase (Santyl) 1 applic Q12HR TOPIC 08/10/18 21:00 09/03/18 20:59 08/20/18 08:21 Epoetin Paul (Procrit (for ESRD on dialysis)) 10,000 units WED- SUBQ 07/27/18 21:00 08/26/18 20:59 08/19/18 20:29 Minoxidil (Loniten) 5 mg Q12HR NG 07/31/18 21:00 08/30/18 20:59 08/19/18 20:29 Pantoprazole (Protonix) 40 mg Q12HR IVP 07/25/18 21:00 08/25/18 08:59 08/20/18 08:19 Vitamin D (Vitamin D) 1,000 intlu DAILY GT 08/07/18 10:00 09/06/18 09:59 08/20/18 08:20 Andres Allan MD Aug 20, 2018 09:17
--- NOTE | 2018-08-20 09:35 | General Progress Note ---
Assessment/Plan Assessment/Plan Assessment - Dysphagia - Resp failure - ESRD - Anemia - Status post PEG Recommendations 1. Abdominal binder. 2. Elevate the head of the bed at all times. 3. G-tube flush. 4. G-tube care. 5. Start tube feeding later today per RD to goal Monitor H&H, PRN transfusions PPI Electrolyte correction Follow-up labs Subjective ROS Limited/Unobtainable: No Allergies: Coded Allergies: No Known Allergies (Unverified , 07/25/18) Objective Last 24 Hour Vital Signs Date Time Temp Pulse Resp B/P (MAP) Pulse Ox O2 Delivery O2 Flow Rate FiO2 08/20/18 09:00 87 16 124/28 (60) 100 08/20/18 08:44 87 15 40 08/20/18 08:20 95/70 08/20/18 08:00 Mechanical Ventilator Mechanical Ventilator 08/20/18 08:00 40 08/20/18 08:00 85 16 95/70 (78) 100 08/20/18 07:00 85 15 111/90 (97) 100 08/20/18 06:55 82 14 40 08/20/18 06:00 81 14 115/33 (60) 100 08/20/18 05:21 79 16 40 08/20/18 05:00 81 17 122/19 (53) 90 08/20/18 04:00 99.2 82 17 96/38 (57) 100 08/20/18 04:00 86 08/20/18 04:00 Mechanical Ventilator Mechanical Ventilator 08/20/18 04:00 40 08/20/18 03:00 84 17 101/40 (60) 100 08/20/18 03:00 85 16 40 08/20/18 02:00 86 18 70/25 (40) 100 08/20/18 01:10 89 20 40 08/20/18 01:00 88 16 114/29 (57) 100 08/20/18 00:00 40 08/20/18 00:00 98.7 88 17 123/11 (48) 100 08/20/18 00:00 78 08/20/18 00:00 Mechanical Ventilator Mechanical Ventilator 08/19/18 23:00 88 16 121/29 (59) 100 08/19/18 22:50 94 18 40 08/19/18 22:00 87 18 110/37 (61) 100 08/19/18 21:00 86 18 75/17 (36) 100 08/19/18 21:00 85 17 40 08/19/18 20:29 91/56 08/19/18 20:00 Mechanical Ventilator Mechanical Ventilator 08/19/18 20:00 40 08/19/18 20:00 91 19 81/17 (38) 99 08/19/18 20:00 83 08/19/18 19:00 99.2 93 19 176/141 (153) 100 08/19/18 18:55 91 18 40 08/19/18 18:00 93 19 110/37 (61) 100 08/19/18 17:07 88 18 40 08/19/18 17:00 99.4 90 20 75/20 (38) 87 08/19/18 16:00 40 08/19/18 16:00 90 18 101/13 (42) 100 08/19/18 16:00 83 08/19/18 16:00 Mechanical Ventilator Mechanical Ventilator 08/19/18 15:00 100 20 80/44 (56) 98 08/19/18 14:39 99 21 40 08/19/18 14:00 107 20 95/28 (50) 98 08/19/18 13:00 109 19 89/39 (56) 97 08/19/18 12:43 138 23 40 08/19/18 12:00 Mechanical Ventilator Mechanical Ventilator 08/19/18 12:00 40 08/19/18 12:00 106 08/19/18 12:00 110 20 142/90 (107) 96 08/19/18 11:00 107 20 127/73 (91) 97 08/19/18 10:57 107 17 98 Mechanical Ventilator 35 08/19/18 10:30 100 16 99 Mechanical Ventilator 40 08/19/18 10:27 90 19 40 08/19/18 10:00 98 20 117/54 (75) 98 Intake and Output 08/19/18 08/20/18 18:59 06:59 Intake Total 730 ml 540 ml Output Total 2500 ml Balance -1770 ml 540 ml Free Water 60 ml 60 ml IV Total 150 ml Tube Feeding 520 ml 480 ml Hemodialysis UF 2500 ml # Bowel Movements 3 3 Laboratory Tests 08/19/18 15:20: White Blood Count 13.0H, Red Blood Count 3.11L, Hemoglobin 9.1L, Hematocrit 29.7L, Mean Corpuscular Volume 96, Mean Corpuscular Hemoglobin 29.4, Mean Corpuscular Hemoglobin Concent 30.8L, Red Cell Distribution Width 18.5H, Platelet Count 474H, Mean Platelet Volume 6.4L, Neutrophils (%) (Auto) 86.5H, Lymphocytes (%) (Auto) 4.0L, Monocytes (%) (Auto) 8.1, Eosinophils (%) (Auto) 0.6, Basophils (%) (Auto) 0.8, Phosphorus Level 2.8 Height (Feet): 5 Height (Inches): 2.00 Weight (Pounds): 108 General Appearance: no apparent distress EENT: normal ENT inspection Neck: supple Cardiovascular: normal rate Respiratory/Chest: decreased breath sounds Abdomen: normal bowel sounds, non tender, soft Extremities: non-tender Oc Cox MD Aug 20, 2018 09:35
--- NOTE | 2018-08-20 10:00 | NUR ---
NURSE NOTES: Wound care pictures done and uploaded. Dressing changed. Turned and repositioned pt. VSS.
--- NOTE | 2018-08-20 10:38 | Infectious Diseases Prog Note ---
"Assessment/Plan Assessment/Plan antibiotics : none A 1. 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 shock resolved 3. leucocytosis 4. respiratory failure s/p tracheostomy 5. renal failure 6. 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 pleural effusion P 1. observe off antibiotics Subjective ROS Limited/Unobtainable: Yes Allergies: Coded Allergies: No Known Allergies (Unverified , 07/25/18) Objective Vital Signs Last 24 Hour Vital Signs Date Time Temp Pulse Resp B/P (MAP) Pulse Ox O2 Delivery O2 Flow Rate FiO2 08/20/18 10:00 84 13 124/28 (60) 100 08/20/18 09:00 87 16 124/28 (60) 100 08/20/18 08:44 87 15 40 08/20/18 08:20 95/70 08/20/18 08:00 Mechanical Ventilator Mechanical Ventilator 08/20/18 08:00 40 08/20/18 08:00 85 16 95/70 (78) 100 08/20/18 07:00 85 15 111/90 (97) 100 08/20/18 06:55 82 14 40 08/20/18 06:00 81 14 115/33 (60) 100 08/20/18 05:21 79 16 40 08/20/18 05:00 81 17 122/19 (53) 90 08/20/18 04:00 99.2 82 17 96/38 (57) 100 08/20/18 04:00 86 08/20/18 04:00 Mechanical Ventilator Mechanical Ventilator 08/20/18 04:00 40 08/20/18 03:00 84 17 101/40 (60) 100 08/20/18 03:00 85 16 40 08/20/18 02:00 86 18 70/25 (40) 100 08/20/18 01:10 89 20 40 08/20/18 01:00 88 16 114/29 (57) 100 08/20/18 00:00 40 08/20/18 00:00 98.7 88 17 123/11 (48) 100 08/20/18 00:00 78 08/20/18 00:00 Mechanical Ventilator Mechanical Ventilator 08/19/18 23:00 88 16 121/29 (59) 100 08/19/18 22:50 94 18 40 12/21/18 22:00 87 18 110/37 (61) 100 08/19/18 21:00 86 18 75/17 (36) 100 08/19/18 21:00 85 17 40 08/19/18 20:29 91/56 08/19/18 20:00 Mechanical Ventilator Mechanical Ventilator 08/19/18 20:00 40 08/19/18 20:00 91 19 81/17 (38) 99 08/19/18 20:00 83 08/19/18 19:00 99.2 93 19 176/141 (153) 100 08/19/18 18:55 91 18 40 08/19/18 18:00 93 19 110/37 (61) 100 08/19/18 17:07 88 18 40 08/19/18 17:00 99.4 90 20 75/20 (38) 87 08/19/18 16:00 40 08/19/18 16:00 90 18 101/13 (42) 100 08/19/18 16:00 83 08/19/18 16:00 Mechanical Ventilator Mechanical Ventilator 08/19/18 15:00 100 20 80/44 (56) 98 08/19/18 14:39 99 21 40 08/19/18 14:00 107 20 95/28 (50) 98 08/19/18 13:00 109 19 89/39 (56) 97 08/19/18 12:43 138 23 40 08/19/18 12:00 Mechanical Ventilator Mechanical Ventilator 08/19/18 12:00 40 08/19/18 12:00 106 08/19/18 12:00 110 20 142/90 (107) 96 08/19/18 11:00 107 20 127/73 (91) 97 08/19/18 10:57 107 17 98 Mechanical Ventilator 35 Height (Feet): 5 Height (Inches): 2.00 Weight (Pounds): 108 HEENT: status post trach Respiratory/Chest: lungs clear Cardiovascular: normal rate, regular rhythm, no gallop/murmur Abdomen: soft, non tender, other - GT Extremities: no edema, other - right arm PICC Laboratory Tests Test 08/19/18 15:20 White Blood Count 13.0 K/UL (4.8-10.8) H Red Blood Count 3.11 M/UL (4.20-5.40) L Hemoglobin 9.1 G/DL (12.0-16.0) L Hematocrit 29.7 % (37.0-47.0) L Mean Corpuscular Volume 96 FL (80-99) Mean Corpuscular Hemoglobin 29.4 PG (27.0-31.0) Mean Corpuscular Hemoglobin Concent 30.8 G/DL (32.0-36.0) L Red Cell Distribution Width 18.5 % (11.6-14.8) H Platelet Count 474 K/UL (150-450) H Mean Platelet Volume 6.4 FL (6.5-10.1) L Neutrophils (%) (Auto) 86.5 % (45.0-75.0) H Lymphocytes (%) (Auto) 4.0 % (20.0-45.0) L Monocytes (%) (Auto) 8.1 % (1.0-10.0) Eosinophils (%) (Auto) 0.6 % (0.0-3.0) Basophils (%) (Auto) 0.8 % (0.0-2.0) Phosphorus Level 2.8 MG/DL (2.5-4.9) Current Medications Medications (Trade) Dose Ordered Sig/Renetta Route PRN Reason Start Time Stop Time Status Last Admin Dose Admin Acetaminophen (Tylenol) 650 mg Q6H PRN GT Mild Pain/Temp > 100.5 08/19/18 16:00 09/18/18 15:59 Albuterol/ Ipratropium (Albuterol/ Ipratropium) 3 ml Q6H PRN HHN Shortness of Breath 08/16/18 19:15 08/21/18 19:14 08/19/18 10:27 Amiodarone HCl (Cordarone) 200 mg EVERY 12 HOURS NG 08/06/18 21:00 09/03/18 13:59 08/20/18 08:20 Apixaban (Eliquis) 2.5 mg BID NG 08/19/18 18:00 09/18/18 08:59 08/20/18 08:20 Chlorhexidine Gluconate (Rylie-Hex 2%) 1 applic DAILY@1999 TOPIC 07/26/18 20:00 08/25/18 19:59 08/19/18 20:27 Collagenase (Santyl) 1 applic Q12HR TOPIC 08/10/18 21:00 09/03/18 20:59 08/20/18 08:21 Epoetin Paul (Procrit (for ESRD on dialysis)) 10,000 units SUBQ 07/27/18 21:00 08/26/18 20:59 08/19/18 20:29 Minoxidil (Loniten) 5 mg Q12HR NG 07/31/18 21:00 08/30/18 20:59 08/19/18 20:29 Pantoprazole (Protonix) 40 mg Q12HR IVP 07/25/18 21:00 08/25/18 08:59 08/20/18 08:19 Vitamin D (Vitamin D) 1,000 intlu DAILY GT 08/07/18 10:00 09/06/18 09:59 08/20/18 08:20 Omid Morfin MD Aug 20, 2018 10:38"
[2018-08-20] MEDS: Acetaminophen 650mg/20.3ml GT PRN ×2 (11:20→18:41)
--- NOTE | 2018-08-20 11:20 | NUR ---
NURSE NOTES: Tylenol 650mg given via G-tube for pain. Will recheck pain.
--- NOTE | 2018-08-20 11:22 | Cardiology Progress Note ---
Assessment/Plan Assessment/Plan 1. Hypotension, possibly sepsis versus volume. 2. Paroxysmal episodes of atrial fibrillation history. 3. Bradycardia secondary to medications, amiodarone possibly. 4. Diabetes mellitus. 5. End-stage renal disease, on hemodialysis. 6. Lung collapse. 7. Respiratory failure, status post intubation. 8. Dysphagia. 9. History of dementia. 10. Pulm htn 11. Pleural effusion 12. cardaic arrest 13. chest wall pain post cpr in and out afib amido now 200 bid on hold stool ob neg x2 amiod bid off labetalol for now if needed hydralazine to be used vent support s/p trach peg done tele reviewed again intermittent tachy but at this time is in sinus on elequis 2.5 mg bid for stroke prevention Subjective Cardiovascular: Reports: chest pain; Denies: lightheadedness Respiratory: Denies: shortness of breath Gastrointestinal/Abdominal: Denies: abdominal pain Genitourinary: Denies: burning Subjective on the vent not verba , denies dizziness has cp whe ndeep breath post cpr last week Objective Last 24 Hour Vital Signs Date Time Temp Pulse Resp B/P (MAP) Pulse Ox O2 Delivery O2 Flow Rate FiO2 08/20/18 11:00 87 21 98/79 (85) 100 08/20/18 10:55 85 13 40 08/20/18 10:00 84 13 124/28 (60) 100 08/20/18 09:00 87 16 124/28 (60) 100 08/20/18 08:44 87 15 40 08/20/18 08:20 95/70 08/20/18 08:00 Mechanical Ventilator Mechanical Ventilator 08/20/18 08:00 40 08/20/18 08:00 85 16 95/70 (78) 100 08/20/18 07:00 85 15 111/90 (97) 100 08/20/18 06:55 82 14 40 08/20/18 06:00 81 14 115/33 (60) 100 08/20/18 05:21 79 16 40 08/20/18 05:00 81 17 122/19 (53) 90 08/20/18 04:00 99.2 82 17 96/38 (57) 100 08/20/18 04:00 86 08/20/18 04:00 Mechanical Ventilator Mechanical Ventilator 08/20/18 04:00 40 08/20/18 03:00 84 17 101/40 (60) 100 08/20/18 03:00 85 16 40 08/20/18 02:00 86 18 70/25 (40) 100 08/20/18 01:10 89 20 40 08/20/18 01:00 88 16 114/29 (57) 100 08/20/18 00:00 40 08/20/18 00:00 98.7 88 17 123/11 (48) 100 08/20/18 00:00 78 08/20/18 00:00 Mechanical Ventilator Mechanical Ventilator 08/19/18 23:00 88 16 121/29 (59) 100 08/19/18 22:50 94 18 40 08/19/18 22:00 87 18 110/37 (61) 100 08/19/18 21:00 86 18 75/17 (36) 100 08/19/18 21:00 85 17 40 08/19/18 20:29 91/56 08/19/18 20:00 Mechanical Ventilator Mechanical Ventilator 08/19/18 20:00 40 08/19/18 20:00 91 19 81/17 (38) 99 08/19/18 20:00 83 08/19/18 19:00 99.2 93 19 176/141 (153) 100 08/19/18 18:55 91 18 40 08/19/18 18:00 93 19 110/37 (61) 100 08/19/18 17:07 88 18 40 08/19/18 17:00 99.4 90 20 75/20 (38) 87 08/19/18 16:00 40 08/19/18 16:00 90 18 101/13 (42) 100 08/19/18 16:00 83 08/19/18 16:00 Mechanical Ventilator Mechanical Ventilator 08/19/18 15:00 100 20 80/44 (56) 98 08/19/18 14:39 99 21 40 08/19/18 14:00 107 20 95/28 (50) 98 08/19/18 13:00 109 19 89/39 (56) 97 08/19/18 12:43 138 23 40 08/19/18 12:00 Mechanical Ventilator Mechanical Ventilator 08/19/18 12:00 40 08/19/18 12:00 106 08/19/18 12:00 110 20 142/90 (107) 96 General Appearance: no apparent distress, alert Neck: no JVD Cardiovascular: normal rate, other - cjhest wall tenderness Respiratory/Chest: lungs clear Abdomen: normal bowel sounds, non tender, soft Extremities: no swelling Intake and Output 08/19/18 08/20/18 19:00 07:00 Intake Total 700 ml 540 ml Output Total 2500 ml Balance -1800 ml 540 ml Free Water 30 ml 60 ml IV Total 150 ml Tube Feeding 520 ml 480 ml Hemodialysis UF 2500 ml # Bowel Movements 3 3 Laboratory Tests Test 08/19/18 15:20 White Blood Count 13.0 K/UL (4.8-10.8) H Red Blood Count 3.11 M/UL (4.20-5.40) L Hemoglobin 9.1 G/DL (12.0-16.0) L Hematocrit 29.7 % (37.0-47.0) L Mean Corpuscular Volume 96 FL (80-99) Mean Corpuscular Hemoglobin 29.4 PG (27.0-31.0) Mean Corpuscular Hemoglobin Concent 30.8 G/DL (32.0-36.0) L Red Cell Distribution Width 18.5 % (11.6-14.8) H Platelet Count 474 K/UL (150-450) H Mean Platelet Volume 6.4 FL (6.5-10.1) L Neutrophils (%) (Auto) 86.5 % (45.0-75.0) H Lymphocytes (%) (Auto) 4.0 % (20.0-45.0) L Monocytes (%) (Auto) 8.1 % (1.0-10.0) Eosinophils (%) (Auto) 0.6 % (0.0-3.0) Basophils (%) (Auto) 0.8 % (0.0-2.0) Phosphorus Level 2.8 MG/DL (2.5-4.9) Angelo Butler MD Aug 20, 2018 11:22
--- NOTE | 2018-08-20 12:44 | Nephrology Progress Note ---
Assessment/Plan Assessment Seee below Plan MOF resolving. ESRD HD q MWF Anemia of CKD , DARRYN high dose. Transfuse PRN. A. 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 with LAE. LVEF 65% . Anticoagulate when stable. REGINALDO Butler. In and out A. Fib. Post trach + PEG . Referred to [facility]. See orders. DW pt's son. Needs extensive Vascular W/U. Subjective Subjective On Vent. Alert. Post Trach and PEG. Objective Objective Last 24 Hour Vital Signs Date Time Temp Pulse Resp B/P (MAP) Pulse Ox O2 Delivery O2 Flow Rate FiO2 08/20/18 12:00 Mechanical Ventilator Mechanical Ventilator 08/20/18 12:00 40 08/20/18 12:00 98.2 105 17 102/79 (87) 100 08/20/18 11:57 86 08/20/18 11:00 87 21 98/79 (85) 100 08/20/18 10:55 85 13 40 08/20/18 10:00 84 13 124/28 (60) 100 08/20/18 09:00 87 16 124/28 (60) 100 08/20/18 08:44 87 15 40 08/20/18 08:20 95/70 08/20/18 08:00 Mechanical Ventilator Mechanical Ventilator 08/20/18 08:00 40 08/20/18 08:00 98.5 85 16 95/70 (78) 100 08/20/18 07:38 82 08/20/18 07:00 85 15 111/90 (97) 100 08/20/18 06:55 82 14 40 08/20/18 06:00 81 14 115/33 (60) 100 08/20/18 05:21 79 16 40 08/20/18 05:00 81 17 122/19 (53) 90 08/20/18 04:00 99.2 82 17 96/38 (57) 100 08/20/18 04:00 86 08/20/18 04:00 Mechanical Ventilator Mechanical Ventilator 08/20/18 04:00 40 08/20/18 03:00 84 17 101/40 (60) 100 08/20/18 03:00 85 16 40 08/20/18 02:00 86 18 70/25 (40) 100 08/20/18 01:10 89 20 40 08/20/18 01:00 88 16 114/29 (57) 100 08/20/18 00:00 40 08/20/18 00:00 98.7 88 17 123/11 (48) 100 08/20/18 00:00 78 08/20/18 00:00 Mechanical Ventilator Mechanical Ventilator 08/19/18 23:00 88 16 121/29 (59) 100 08/19/18 22:50 94 18 40 08/19/18 22:00 87 18 110/37 (61) 100 08/19/18 21:00 86 18 75/17 (36) 100 08/19/18 21:00 85 17 40 08/19/18 20:29 91/56 08/19/18 20:00 Mechanical Ventilator Mechanical Ventilator 08/19/18 20:00 40 08/19/18 20:00 91 19 81/17 (38) 99 08/19/18 20:00 83 08/19/18 19:00 99.2 93 19 176/141 (153) 100 08/19/18 18:55 91 18 40 08/19/18 18:00 93 19 110/37 (61) 100 08/19/18 17:07 88 18 40 08/19/18 17:00 99.4 90 20 75/20 (38) 87 08/19/18 16:00 40 08/19/18 16:00 90 18 101/13 (42) 100 08/19/18 16:00 83 08/19/18 16:00 Mechanical Ventilator Mechanical Ventilator 08/19/18 15:00 100 20 80/44 (56) 98 08/19/18 14:39 99 21 40 08/19/18 14:00 107 20 95/28 (50) 98 08/19/18 13:00 109 19 89/39 (56) 97 Intake and Output 08/19/18 08/20/18 19:00 07:00 Intake Total 700 ml 540 ml Output Total 2500 ml Balance -1800 ml 540 ml Free Water 30 ml 60 ml IV Total 150 ml Tube Feeding 520 ml 480 ml Hemodialysis UF 2500 ml # Bowel Movements 3 3 Laboratory Tests 08/19/18 15:20: White Blood Count 13.0H, Red Blood Count 3.11L, Hemoglobin 9.1L, Hematocrit 29.7L, Mean Corpuscular Volume 96, Mean Corpuscular Hemoglobin 29.4, Mean Corpuscular Hemoglobin Concent 30.8L, Red Cell Distribution Width 18.5H, Platelet Count 474H, Mean Platelet Volume 6.4L, Neutrophils (%) (Auto) 86.5H, Lymphocytes (%) (Auto) 4.0L, Monocytes (%) (Auto) 8.1, Eosinophils (%) (Auto) 0.6, Basophils (%) (Auto) 0.8, Phosphorus Level 2.8 Height (Feet): 5 Height (Inches): 2.00 Weight (Pounds): 108 Objective On vent. Trach clean. Cv IRR/IRR Lungs B ronchi. Abd SNT. BS + New PEG. E Rt. foot diabetic ulcers Chase He MD Aug 20, 2018 12:44
--- NOTE | 2018-08-20 13:21 | NUR ---
NURSE NOTES: Attended all needs. Pt is alert and awake, watching TV in bed. Afebrile. BP 109/80. Will continue to monitor.
--- NOTE | 2018-08-20 15:50 | NUR ---
NURSE NOTES: Pt voided 50cc urine. PM care given. Turned and repositioned pt. Son at bedside.
--- NOTE | 2018-08-20 17:21 | NUR ---
NURSE NOTES: Son at bedside. Attended all needs. Drain sponge changed on trach site. G-tube dressing changed. Lab drawing blood at bedside.
[2018-08-20 17:39] LABS: EOSINOPHILS % (AUTO) 1.4 % (0.0-3.0); HEMATOCRIT 27.5 % (37.0-47.0); HEMOGLOBIN 8.2 G/DL (12.0-16.0); MEAN CORPUSCULAR VOLUME 96 FL (80-99); MONOCYTES % (AUTO) 9.3 % (1.0-10.0); NEUTROPHILS % (AUTO) 81.3 % (45.0-75.0); PLATELET COUNT 416 K/UL (150-450); RED BLOOD COUNT 2.86 M/UL (4.20-5.40); RED CELL DISTRIBUTION WIDTH 18.8 % (11.6-14.8)
[2018-08-20 18:10] LABS: ANION GAP 8 mmol/L (5-15); BLOOD UREA NITROGEN 25 mg/dL (7-18); CALCIUM 8.7 MG/DL (8.5-10.1); CARBON DIOXIDE 29 MMOL/L (21-32); CHLORIDE 101 MMOL/L (98-107); CREATININE 2.4 MG/DL (0.55-1.30); POTASSIUM 3.2 MMOL/L (3.5-5.1); SODIUM 138 MMOL/L (136-145)
[2018-08-20 18:14] LABS: ALANINE AMINOTRANSFERASE 8 U/L (12-78); ALBUMIN 1.5 G/DL (3.4-5.0); ALBUMIN/GLOBULIN RATIO 0.3 (1.0-2.7); ALKALINE PHOSPHATASE 177 U/L (46-116); ASPARTATE AMINO TRANSFERASE 16 U/L (15-37); BILIRUBIN,TOTAL 0.3 MG/DL (0.2-1.0)
--- NOTE | 2018-08-20 18:20 | NUR ---
NURSE NOTES: Notified Dr He regarding lab results from today. No new orders. Order for nasal spray and eye drop received, noted, and carried out.
[2018-08-20] MEDS ORDERED: Artificial Tears 1.4% Op Soln BOTH EYES PRN (18:30)
[2018-08-20] MEDS ORDERED: Ocean Nasal Spray 45ml NASAL PRN (18:30)
--- NOTE | 2018-08-20 18:41 | NUR ---
NURSE NOTES: Tylenol 650mg given via G-tube for pain. Will reaccess pain.
--- NOTE | 2018-08-20 19:12 | NUR ---
HAND-OFF: Report given to BALDO Messina.
[2018-08-20] MEDS: Dyna-Hex 2% Top Sol 2oz TOPIC SCH (19:16)
--- NOTE | 2018-08-20 19:20 | NUR ---
NURSE NOTES: Received Patient asleep, arousable to verbal and tactile stimuli. Able to communicate by nodding, or shaking head Trache to vent AC 8 Vt 450 PEEP 5 50% FiO2. PEG in place, secured with abdominal binder. Dressing dry and intact. Feeding Nepro 40ml/hr. No residual. Right upper arm midline. Bilateral soft wrist restraints on at this time, pt reaches for trach site. Head of bed elevated. Bed locked and in low position. On contact precautions. Will continue to monitor
--- NOTE | 2018-08-20 19:20 | NUR ---
NURSE NOTES: Received pt in bed with eyes open. Sinus rhythm on the monitor with HR 74. Trach to vent on AC 8, Vt 450, p 5, Fio2 40%. Right upper arm midline, TKO. GT feeding Nepro @ 40 cc/hr with no residual noted at this. Recal tube draining by gravity. Bilateral lower extremities noted to to be covered with dressings dry and intact. On contact precautions, bed in lowest, side rails upx3. No signs of distress noted. Will continue to monitor.
--- NOTE | 2018-08-20 21:00 | NUR ---
NURSE NOTES: Pt sleeping,Denies any pain or discomfort at this time. Turned and repositioned for comfort. Will continue to monitor
--- NOTE | 2018-08-20 23:00 | NUR ---
NURSE NOTES: Pt sleeping, arousable to verbal and tactile stimuli. continues on bilateral soft wrist restraints at this time. released but patient continues to reach for Trach. Will continue to monitor
[2018-08-21] VITALS (17 sets, daily range): BP systolic 92–149; BP diastolic 10–93
--- NOTE | 2018-08-21 01:00 | NUR ---
NURSE NOTES: Pt sleeping at this time. Oral care provided. Pt noted to look tired and simple nodding. Continues on soft wrist restraints att this time. Will continue to monitor
--- NOTE | 2018-08-21 03:30 | NUR ---
NURSE NOTES: CHG bath given at this time. Pt turned and repositioned. Oral care provided. Rectal tube continues to drain by gravity. No signs of distress noted. Will continue with plan of care.
--- NOTE | 2018-08-21 05:30 | NUR ---
NURSE NOTES: Pt sleeping at this time. Bilateral soft wrist restraints continue in place. sinus rhythm on the monitor. No signs of distress noted. Will continue to monitor.
--- NOTE | 2018-08-21 07:15 | NUR ---
HAND-OFF: Report given to Donna BLAND using SBAR. VS Stable.
--- NOTE | 2018-08-21 07:16 | NUR ---
NURSE NOTES: Report received from BALDO Messina. Pt is awake, alert and oriented x2-3. On bilateral soft restraints. Sinus rhythm on awake overnight monitor in 80's. AC 8, TV 450, FiO2 40%, P 5. No respiratory distress noted. O2 sat 100%. G-tube in place receiving Nepro at 40cc/hr. No residual noted. Rectal tube in place draining to gravity. Right UA midline patent and asymptomatic. Left AV shunt for HD noted. Bed in lowest position. Side rails up x3. Will resume plan of care.
--- NOTE | 2018-08-21 07:18 | NUR ---
RESPIRATORY NOTE: Patient received mechanically ventilated on PB840 with current ordered vent settings. Patient has trach size 8.0 Shiley cuffed that is secured with a trach tie and guard. Patient presents with bilateral coarse breath sounds and symmetrical chest rise. Small amount of yellow/ tobin secretions were suctioned without incident. There is an ambu bag available at the bedside and the vent is connected to a red outlet. Vent alarms are functional and audible. There is no shortness of breath or respiratory distress noted at this time. Will continue to monitor patient.
--- NOTE | 2018-08-21 07:35 | NUR ---
NURSE NOTES: Order to transfer pt to [facility] from Dr He received, noted, and carried out. Notified Crop Supervisor.
--- NOTE | 2018-08-21 07:50 | Pulmonology Progress Note ---
Assessment/Plan Assessment/Plan IMPRESSION: 1. Hypotension. Resolved. 2. Sepsis. 3. Atrial fibrillation. 4. Bradycardia. 5. Diabetes mellitus. 6. End-stage renal disease on dialysis. 7. Left lung collapse. Resolved 8. Respiratory failure. now status post tracheostomy 9. Dysphagia. 10. Dementia. 11. Anemia 12. Pneumonia DISCUSSION: 1. Continue medications. 2. CXR improved 3. Status post tracheostomy 4. S/p G-tube 5. Stable to transfer to [facility] Andres Allan M.D. Subjective Interval Events: None reported Constitutional: Reports: no symptoms HEENT: Repors: no symptoms Respiratory: Reports: no symptoms Cardiovascular: Reports: no symptoms Gastrointestinal/Abdominal: Reports: no symptoms Genitourinary: Reports: no symptoms Neurologic: Reports: no symptoms Psychiatric: Reports: no symptoms Allergies: Coded Allergies: No Known Allergies (Unverified , 07/25/18) Objective Last 24 Hour Vital Signs Date Time Temp Pulse Resp B/P (MAP) Pulse Ox O2 Delivery O2 Flow Rate FiO2 08/21/18 07:14 88 15 40 08/21/18 07:00 86 15 137/26 (63) 100 08/21/18 06:00 104 14 118/25 (56) 100 08/21/18 05:00 78 15 140/29 (66) 100 08/21/18 04:54 79 15 40 08/21/18 04:00 69 08/21/18 04:00 98.2 79 14 149/26 (67) 100 08/21/18 04:00 Mechanical Ventilator Mechanical Ventilator 08/21/18 04:00 40 08/21/18 03:18 69 11 40 08/21/18 03:00 68 12 92/21 (44) 100 08/21/18 02:00 78 17 95/28 (50) 100 08/21/18 01:01 72 13 40 08/21/18 01:00 77 16 92/15 (40) 100 08/21/18 00:00 98.4 67 16 96/17 (43) 100 08/21/18 00:00 40 08/21/18 00:00 Mechanical Ventilator Mechanical Ventilator 08/21/18 00:00 67 08/20/18 23:06 68 13 40 08/20/18 23:00 68 13 104/15 (44) 100 08/20/18 22:00 79 15 124/12 (49) 100 08/20/18 21:00 74 15 95/21 (45) 100 08/20/18 20:57 74 13 40 08/20/18 20:37 111/15 08/20/18 20:00 98.3 72 12 111/15 (47) 100 08/20/18 20:00 Mechanical Ventilator Mechanical Ventilator 08/20/18 20:00 40 08/20/18 20:00 71 08/20/18 19:00 75 15 105/12 (43) 100 08/20/18 18:56 81 16 40 08/20/18 18:00 79 15 104/21 (48) 100 08/20/18 17:05 80 15 40 08/20/18 17:00 82 16 112/47 (68) 100 08/20/18 16:02 83 08/20/18 16:00 40 08/20/18 16:00 98.4 81 16 121/28 (59) 100 08/20/18 16:00 Mechanical Ventilator Mechanical Ventilator 08/20/18 15:00 89 17 115/30 (58) 100 08/20/18 14:42 111 19 40 08/20/18 14:00 108 14 120/47 (71) 100 08/20/18 13:01 120 12 40 08/20/18 13:00 108 15 109/80 (90) 100 08/20/18 12:00 Mechanical Ventilator Mechanical Ventilator 08/20/18 12:00 40 08/20/18 12:00 98.2 105 17 102/79 (87) 100 08/20/18 11:57 86 08/20/18 11:00 87 21 98/79 (85) 100 08/20/18 10:55 85 13 40 08/20/18 10:00 84 13 124/28 (60) 100 08/20/18 09:00 87 16 124/28 (60) 100 08/20/18 08:44 87 15 40 08/20/18 08:20 95/70 08/20/18 08:00 Mechanical Ventilator Mechanical Ventilator 08/20/18 08:00 40 08/20/18 08:00 98.5 85 16 95/70 (78) 100 Intake and Output 08/20/18 08/21/18 18:59 06:59 Intake Total 630 ml 630 ml Output Total 70 ml Balance 630 ml 560 ml Free Water 50 ml 50 ml Tube Feeding 480 ml 480 ml Other 100 ml 100 ml Stool Total 70 ml # Voids 50 # Bowel Movements 3 3 General Appearance: no acute distress HEENT: normocephalic, status post trach Respiratory/Chest: chest wall non-tender, decreased breath sounds Cardiovascular: normal peripheral pulses, normal rate Abdomen: normal bowel sounds, soft, non tender Laboratory Tests 08/20/18 17:20: White Blood Count 10.0, Red Blood Count 2.86L, Hemoglobin 8.2L, Hematocrit 27.5L , Mean Corpuscular Volume 96, Mean Corpuscular Hemoglobin 28.8, Mean Corpuscular Hemoglobin Concent 29.9L, Red Cell Distribution Width 18.8H, Platelet Count 416, Mean Platelet Volume 5.9L, Neutrophils (%) (Auto) 81.3H, Lymphocytes (%) (Auto) 7.0L, Monocytes (%) (Auto) 9.3, Eosinophils (%) (Auto) 1.4, Basophils (%) (Auto) 1.0, Sodium Level 138, Potassium Level 3.2L, Chloride Level 101, Carbon Dioxide Level 29, Anion Gap 8, Blood Urea Nitrogen 25H, Creatinine 2.4H, Estimat Glomerular Filtration Rate , Glucose Level 127H, Calcium Level 8.7, Total Bilirubin 0.3, Aspartate Amino Transf (AST/SGOT) 16, Alanine Aminotransferase (ALT/SGPT) 8L, Alkaline Phosphatase 177H, Total Protein 5.9L, Albumin 1.5L, Globulin 4.4, Albumin/Globulin Ratio 0.3L Current Medications Medications (Trade) Dose Ordered Sig/Renetta Route PRN Reason Start Time Stop Time Status Last Admin Dose Admin Acetaminophen (Tylenol) 650 mg Q6H PRN GT Mild Pain/Temp > 100.5 08/19/18 16:00 09/18/18 15:59 08/20/18 18:41 Albuterol/ Ipratropium (Albuterol/ Ipratropium) 3 ml Q6H PRN HHN Shortness of Breath 08/16/18 19:15 08/21/18 19:14 08/19/18 10:27 Amiodarone HCl (Cordarone) 200 mg EVERY 12 HOURS NG 08/06/18 21:00 09/03/18 13:59 08/20/18 20:37 Apixaban (Eliquis) 2.5 mg BID NG 08/19/18 18:00 09/18/18 08:59 08/20/18 17:26 Artificial Tears ([place]-Tears) 1 drop Q4H PRN BOTH EYES Dry Eyes 08/20/18 18:30 09/19/18 18:29 Chlorhexidine Gluconate (Rylie-Hex 2%) 1 applic DAILY@1999 TOPIC 07/26/18 20:00 08/25/18 19:59 08/20/18 19:16 Collagenase (Santyl) 1 applic Q12HR TOPIC 08/10/18 21:00 09/03/18 20:59 08/20/18 20:37 Epoetin Paul (Procrit (for ESRD on dialysis)) 10,000 units SUBQ 07/27/18 21:00 08/26/18 20:59 08/19/18 20:29 Minoxidil (Loniten) 5 mg Q12HR NG 07/31/18 21:00 08/30/18 20:59 08/20/18 20:37 Pantoprazole (Protonix) 40 mg Q12HR IVP 07/25/18 21:00 08/25/18 08:59 08/20/18 20:37 Sodium Chloride ([place] Nasal [place]) 1 spray Q4H PRN NASAL dry nose 08/20/18 18:30 09/19/18 18:29 Vitamin D (Vitamin D) 1,000 intlu DAILY GT 08/07/18 10:00 09/06/18 09:59 08/20/18 08:20 Andres Allan MD Aug 21, 2018 07:50
[2018-08-21] MEDS: Minoxidil 2.5mg tab NG SCH ×2 (08:26→21:18)
[2018-08-21] MEDS: Pantoprazole Inj IVP SCH ×2 (08:26→21:16)
[2018-08-21] MEDS: Amiodarone 200mg tab NG SCH ×2 (08:26→21:17)
[2018-08-21] MEDS: Vitamin D 1000 IU Tab GT SCH (08:26)
[2018-08-21] MEDS: Eliquis 2.5mg tablet NG SCH ×2 (08:26→17:57)
--- NOTE | 2018-08-21 09:10 | NUR ---
RD ASSESSMENT & RECOMMENDATIONS SEE CARE ACTIVITY FOR COMPLETE ASSESSMENT DAILY ESTIMATED NEEDS: Needs based on Critical care + Advanced Wounds + ESRD/ 60kg 22-30 kcals/kg 8532-7521 total kcals 1.5-2.0 g protein/kg 90-120g g total protein Fluid per MD, on HD NUTRITION DIAGNOSIS: * Swallowing difficulty R/T respiratory status as evidenced by pt s/p self extubation, s/p code blue, reintubated, now s/p trach and PEG placement. (UPDATED) * Increased kcal/prot needs R/T wound healing as evidenced by pt admitted w/ multiple wounds including stage 4 sacral wound, refer to WC eval. * Altered nutrition related lab values R/T ESRD dx, clinical condition as evidenced by low K (2.7), episodes of hypoglycemia (68 69-> now resolved), elev creat (4.6-> 2.4), low Na (130-> wnl), elev BNP >58143, low BP, off pressor at this time. CURRENT TF:Nepro @40ml/hr + PS BID ENTERAL NUTRITION RECOMMENDATIONS: Nepro @40ml/hr x 24 hrs + Prosource 1pkt BID to provide 960ml, 1728kcal, 78g + 22g prot, 698ml free water 1. Maintain current rate, add Prosource 1 pack BID to better meet est protein needs 2. Flush per MD/ HOB over 30 degrees ADDITIONAL RECOMMENDATIONS: * RECALIBRATE BED SCALE POST TRACH AND PEG PROCEDURES * Add PROSOURCE 1 pack BID to better meet est protein needs * Wound healing- Nephrovite x 1, Afshin 1pkt BID * Monitor for hypoglycemia * Monitor tolerance to current TF rate .
--- NOTE | 2018-08-21 09:18 | NUR ---
NURSE NOTES: Turned and repositioned pt. Oral care done. Pt is sleeping in bed. VSS.
--- NOTE | 2018-08-21 09:53 | General Progress Note ---
Assessment/Plan Assessment/Plan Assessment - Dysphagia - Resp failure - ESRD - Anemia - Status post PEG Recommendations 1. Abdominal binder. 2. Elevate the head of the bed at all times. 3. G-tube flush. 4. G-tube care. 5. Start tube feeding later today per RD to goal Monitor H&H, PRN transfusions PPI Electrolyte correction Follow-up labs Subjective ROS Limited/Unobtainable: No Allergies: Coded Allergies: No Known Allergies (Unverified , 07/25/18) Objective Last 24 Hour Vital Signs Date Time Temp Pulse Resp B/P (MAP) Pulse Ox O2 Delivery O2 Flow Rate FiO2 08/21/18 09:13 108 18 40 08/21/18 09:00 97.8 78 14 126/24 (58) 100 08/21/18 08:02 87 08/21/18 08:00 87 18 144/18 (60) 100 08/21/18 08:00 Mechanical Ventilator Mechanical Ventilator 08/21/18 08:00 40 08/21/18 07:14 88 15 40 08/21/18 07:00 86 15 137/26 (63) 100 08/21/18 06:00 104 14 118/25 (56) 100 08/21/18 05:00 78 15 140/29 (66) 100 08/21/18 04:54 79 15 40 08/21/18 04:00 69 08/21/18 04:00 98.2 79 14 149/26 (67) 100 08/21/18 04:00 Mechanical Ventilator Mechanical Ventilator 08/21/18 04:00 40 08/21/18 03:18 69 11 40 08/21/18 03:00 68 12 92/21 (44) 100 08/21/18 02:00 78 17 95/28 (50) 100 08/21/18 01:01 72 13 40 08/21/18 01:00 77 16 92/15 (40) 100 08/21/18 00:00 98.4 67 16 96/17 (43) 100 08/21/18 00:00 40 08/21/18 00:00 Mechanical Ventilator Mechanical Ventilator 08/21/18 00:00 67 08/20/18 23:06 68 13 40 08/20/18 23:00 68 13 104/15 (44) 100 08/20/18 22:00 79 15 124/12 (49) 100 08/20/18 21:00 74 15 95/21 (45) 100 08/20/18 20:57 74 13 40 08/20/18 20:37 111/15 08/20/18 20:00 98.3 72 12 111/15 (47) 100 08/20/18 20:00 Mechanical Ventilator Mechanical Ventilator 08/20/18 20:00 40 08/20/18 20:00 71 08/20/18 19:00 75 15 105/12 (43) 100 08/20/18 18:56 81 16 40 08/20/18 18:00 79 15 104/21 (48) 100 08/20/18 17:05 80 15 40 08/20/18 17:00 82 16 112/47 (68) 100 08/20/18 16:02 83 08/20/18 16:00 40 08/20/18 16:00 98.4 81 16 121/28 (59) 100 08/20/18 16:00 Mechanical Ventilator Mechanical Ventilator 08/20/18 15:00 89 17 115/30 (58) 100 08/20/18 14:42 111 19 40 08/20/18 14:00 108 14 120/47 (71) 100 08/20/18 13:01 120 12 40 08/20/18 13:00 108 15 109/80 (90) 100 08/20/18 12:00 Mechanical Ventilator Mechanical Ventilator 08/20/18 12:00 40 08/20/18 12:00 98.2 105 17 102/79 (87) 100 08/20/18 11:57 86 08/20/18 11:00 87 21 98/79 (85) 100 08/20/18 10:55 85 13 40 08/20/18 10:00 84 13 124/28 (60) 100 Intake and Output 08/20/18 08/21/18 18:59 06:59 Intake Total 630 ml 630 ml Output Total 70 ml Balance 630 ml 560 ml Free Water 50 ml 50 ml Tube Feeding 480 ml 480 ml Other 100 ml 100 ml Stool Total 70 ml # Voids 50 # Bowel Movements 3 3 Laboratory Tests 08/20/18 17:20: White Blood Count 10.0, Red Blood Count 2.86L, Hemoglobin 8.2L, Hematocrit 27.5L , Mean Corpuscular Volume 96, Mean Corpuscular Hemoglobin 28.8, Mean Corpuscular Hemoglobin Concent 29.9L, Red Cell Distribution Width 18.8H, Platelet Count 416, Mean Platelet Volume 5.9L, Neutrophils (%) (Auto) 81.3H, Lymphocytes (%) (Auto) 7.0L, Monocytes (%) (Auto) 9.3, Eosinophils (%) (Auto) 1.4, Basophils (%) (Auto) 1.0, Sodium Level 138, Potassium Level 3.2L, Chloride Level 101, Carbon Dioxide Level 29, Anion Gap 8, Blood Urea Nitrogen 25H, Creatinine 2.4H, Estimat Glomerular Filtration Rate , Glucose Level 127H, Calcium Level 8.7, Total Bilirubin 0.3, Aspartate Amino Transf (AST/SGOT) 16, Alanine Aminotransferase (ALT/SGPT) 8L, Alkaline Phosphatase 177H, Total Protein 5.9L, Albumin 1.5L, Globulin 4.4, Albumin/Globulin Ratio 0.3L Height (Feet): 5 Height (Inches): 2.00 Weight (Pounds): 107 General Appearance: lethargic EENT: normal ENT inspection Neck: supple Cardiovascular: normal rate Respiratory/Chest: decreased breath sounds Abdomen: normal bowel sounds, non tender, soft Extremities: non-tender Oc Cox MD Aug 21, 2018 09:53
--- NOTE | 2018-08-21 11:01 | Infectious Diseases Prog Note ---
"Assessment/Plan Assessment/Plan antibiotics : none A 1. 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 shock resolved 3. leucocytosis 4. respiratory failure s/p tracheostomy 5. renal failure 6. 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 pleural effusion P 1. observe off antibiotics Subjective ROS Limited/Unobtainable: Yes Allergies: Coded Allergies: No Known Allergies (Unverified , 07/25/18) Objective Vital Signs Last 24 Hour Vital Signs Date Time Temp Pulse Resp B/P (MAP) Pulse Ox O2 Delivery O2 Flow Rate FiO2 08/21/18 10:00 73 16 131/22 (58) 100 08/21/18 09:13 108 18 40 08/21/18 09:00 97.8 78 14 126/24 (58) 100 08/21/18 08:02 87 08/21/18 08:00 87 18 144/18 (60) 100 08/21/18 08:00 Mechanical Ventilator Mechanical Ventilator 08/21/18 08:00 40 08/21/18 07:14 88 15 40 08/21/18 07:00 86 15 137/26 (63) 100 08/21/18 06:00 104 14 118/25 (56) 100 08/21/18 05:00 78 15 140/29 (66) 100 08/21/18 04:54 79 15 40 08/21/18 04:00 69 08/21/18 04:00 98.2 79 14 149/26 (67) 100 08/21/18 04:00 Mechanical Ventilator Mechanical Ventilator 08/21/18 04:00 40 08/21/18 03:18 69 11 40 08/21/18 03:00 68 12 92/21 (44) 100 08/21/18 02:00 78 17 95/28 (50) 100 08/21/18 01:01 72 13 40 08/21/18 01:00 77 16 92/15 (40) 100 08/21/18 00:00 98.4 67 16 96/17 (43) 100 08/21/18 00:00 40 08/21/18 00:00 Mechanical Ventilator Mechanical Ventilator 08/21/18 00:00 67 08/20/18 23:06 68 13 40 08/20/18 23:00 68 13 104/15 (44) 100 08/20/18 22:00 79 15 124/12 (49) 100 08/20/18 21:00 74 15 95/21 (45) 100 08/20/18 20:57 74 13 40 08/20/18 20:37 111/15 08/20/18 20:00 98.3 72 12 111/15 (47) 100 08/20/18 20:00 Mechanical Ventilator Mechanical Ventilator 08/20/18 20:00 40 08/20/18 20:00 71 08/20/18 19:00 75 15 105/12 (43) 100 08/20/18 18:56 81 16 40 08/20/18 18:00 79 15 104/21 (48) 100 08/20/18 17:05 80 15 40 08/20/18 17:00 82 16 112/47 (68) 100 08/20/18 16:02 83 08/20/18 16:00 40 08/20/18 16:00 98.4 81 16 121/28 (59) 100 08/20/18 16:00 Mechanical Ventilator Mechanical Ventilator 08/20/18 15:00 89 17 115/30 (58) 100 08/20/18 14:42 111 19 40 08/20/18 14:00 108 14 120/47 (71) 100 08/20/18 13:01 120 12 40 08/20/18 13:00 108 15 109/80 (90) 100 08/20/18 12:00 Mechanical Ventilator Mechanical Ventilator 08/20/18 12:00 40 08/20/18 12:00 98.2 105 17 102/79 (87) 100 08/20/18 11:57 86 Height (Feet): 5 Height (Inches): 2.00 Weight (Pounds): 107 HEENT: status post trach Respiratory/Chest: lungs clear Cardiovascular: normal rate, regular rhythm, no gallop/murmur Abdomen: soft, non tender, other - GT Extremities: no edema, other - right arm PICC Laboratory Tests Test 08/20/18 17:20 White Blood Count 10.0 K/UL (4.8-10.8) Red Blood Count 2.86 M/UL (4.20-5.40) L Hemoglobin 8.2 G/DL (12.0-16.0) L Hematocrit 27.5 % (37.0-47.0) L Mean Corpuscular Volume 96 FL (80-99) Mean Corpuscular Hemoglobin 28.8 PG (27.0-31.0) Mean Corpuscular Hemoglobin Concent 29.9 G/DL (32.0-36.0) L Red Cell Distribution Width 18.8 % (11.6-14.8) H Platelet Count 416 K/UL (150-450) Mean Platelet Volume 5.9 FL (6.5-10.1) L Neutrophils (%) (Auto) 81.3 % (45.0-75.0) H Lymphocytes (%) (Auto) 7.0 % (20.0-45.0) L Monocytes (%) (Auto) 9.3 % (1.0-10.0) Eosinophils (%) (Auto) 1.4 % (0.0-3.0) Basophils (%) (Auto) 1.0 % (0.0-2.0) Sodium Level 138 MMOL/L (136-145) Potassium Level 3.2 MMOL/L (3.5-5.1) L Chloride Level 101 MMOL/L (98-107) Carbon Dioxide Level 29 MMOL/L (21-32) Anion Gap 8 mmol/L (5-15) Blood Urea Nitrogen 25 mg/dL (7-18) H Creatinine 2.4 MG/DL (0.55-1.30) H Estimat Glomerular Filtration Rate mL/min (>60) Glucose Level 127 MG/DL (74-106) H Calcium Level 8.7 MG/DL (8.5-10.1) Total Bilirubin 0.3 MG/DL (0.2-1.0) Aspartate Amino Transf (AST/SGOT) 16 U/L (15-37) Alanine Aminotransferase (ALT/SGPT) 8 U/L (12-78) L Alkaline Phosphatase 177 U/L (46-116) H Total Protein 5.9 G/DL (6.4-8.2) L Albumin 1.5 G/DL (3.4-5.0) L Globulin 4.4 g/dL Albumin/Globulin Ratio 0.3 (1.0-2.7) L Current Medications Medications (Trade) Dose Ordered Sig/Renetta Route PRN Reason Start Time Stop Time Status Last Admin Dose Admin Acetaminophen (Tylenol) 650 mg Q6H PRN GT Mild Pain/Temp > 100.5 12/21/18 16:00 09/18/18 15:59 08/20/18 18:41 Albuterol/ Ipratropium (Albuterol/ Ipratropium) 3 ml Q6H PRN HHN Shortness of Breath 08/16/18 19:15 08/21/18 19:14 08/19/18 10:27 Amiodarone HCl (Cordarone) 200 mg EVERY 12 HOURS NG 08/06/18 21:00 09/03/18 13:59 08/21/18 08:26 Apixaban (Eliquis) 2.5 mg BID NG 08/19/18 18:00 09/18/18 08:59 08/21/18 08:26 Artificial Tears (Akwa-Tears) 1 drop Q4H PRN BOTH EYES Dry Eyes 08/20/18 18:30 09/19/18 18:29 Chlorhexidine Gluconate (Rylie-Hex 2%) 1 applic DAILY@1999 TOPIC 07/26/18 20:00 08/25/18 19:59 08/20/18 19:16 Collagenase (Santyl) 1 applic Q12HR TOPIC 08/10/18 21:00 09/03/18 20:59 08/21/18 08:26 Epoetin Paul (Procrit (for ESRD on dialysis)) 10,000 units WED-WED-WED SUBQ 07/27/18 21:00 08/26/18 20:59 08/19/18 20:29 Minoxidil (Loniten) 5 mg Q12HR NG 07/31/18 21:00 08/30/18 20:59 08/20/18 20:37 Pantoprazole (Protonix) 40 mg Q12HR IVP 07/25/18 21:00 08/25/18 08:59 08/21/18 08:26 Sodium Chloride (Grand Nasal Kamas) 1 spray Q4H PRN NASAL dry nose 08/20/18 18:30 09/19/18 18:29 Vitamin D (Vitamin D) 1,000 intlu DAILY GT 08/07/18 10:00 09/06/18 09:59 08/21/18 08:26 Omid Morfin MD Aug 21, 2018 11:01"
--- NOTE | 2018-08-21 12:07 | Nephrology Progress Note ---
Assessment/Plan Assessment Seee below Plan MOF resolving. ESRD HD q MWF Anemia of CKD , DARRYN high dose. Transfuse PRN. A. 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 with LAE. LVEF 65% . Anticoagulate when stable. REGINALDO Butler. In and out A. Fib. Post trach + PEG . Referred to [facility]. See orders. DW pt's son. Needs extensive Vascular W/U. Subjective Subjective On Vent. Alert. Post Trach and PEG. Objective Objective Last 24 Hour Vital Signs Date Time Temp Pulse Resp B/P (MAP) Pulse Ox O2 Delivery O2 Flow Rate FiO2 08/21/18 11:00 74 15 126/10 (48) 97 08/21/18 10:45 76 16 40 08/21/18 10:00 73 16 131/22 (58) 100 08/21/18 09:13 108 18 40 08/21/18 09:00 97.8 78 14 126/24 (58) 100 08/21/18 08:02 87 08/21/18 08:00 87 18 144/18 (60) 100 08/21/18 08:00 Mechanical Ventilator Mechanical Ventilator 08/21/18 08:00 40 08/21/18 07:14 88 15 40 08/21/18 07:00 86 15 137/26 (63) 100 08/21/18 06:00 104 14 118/25 (56) 100 08/21/18 05:00 78 15 140/29 (66) 100 08/21/18 04:54 79 15 40 08/21/18 04:00 69 08/21/18 04:00 98.2 79 14 149/26 (67) 100 08/21/18 04:00 Mechanical Ventilator Mechanical Ventilator 08/21/18 04:00 40 08/21/18 03:18 69 11 40 08/21/18 03:00 68 12 92/21 (44) 100 08/21/18 02:00 78 17 95/28 (50) 100 08/21/18 01:01 72 13 40 08/21/18 01:00 77 16 92/15 (40) 100 08/21/18 00:00 98.4 67 16 96/17 (43) 100 08/21/18 00:00 40 08/21/18 00:00 Mechanical Ventilator Mechanical Ventilator 08/21/18 00:00 67 08/20/18 23:06 68 13 40 08/20/18 23:00 68 13 104/15 (44) 100 08/20/18 22:00 79 15 124/12 (49) 100 08/20/18 21:00 74 15 95/21 (45) 100 08/20/18 20:57 74 13 40 08/20/18 20:37 111/15 08/20/18 20:00 98.3 72 12 111/15 (47) 100 08/20/18 20:00 Mechanical Ventilator Mechanical Ventilator 08/20/18 20:00 40 08/20/18 20:00 71 08/20/18 19:00 75 15 105/12 (43) 100 08/20/18 18:56 81 16 40 08/20/18 18:00 79 15 104/21 (48) 100 08/20/18 17:05 80 15 40 08/20/18 17:00 82 16 112/47 (68) 100 08/20/18 16:02 83 08/20/18 16:00 40 08/20/18 16:00 98.4 81 16 121/28 (59) 100 08/20/18 16:00 Mechanical Ventilator Mechanical Ventilator 08/20/18 15:00 89 17 115/30 (58) 100 08/20/18 14:42 111 19 40 08/20/18 14:00 108 14 120/47 (71) 100 08/20/18 13:01 120 12 40 08/20/18 13:00 108 15 109/80 (90) 100 Intake and Output 08/20/18 08/21/18 18:59 06:59 Intake Total 630 ml 630 ml Output Total 70 ml Balance 630 ml 560 ml Free Water 50 ml 50 ml Tube Feeding 480 ml 480 ml Other 100 ml 100 ml Stool Total 70 ml # Voids 50 # Bowel Movements 3 3 Laboratory Tests 08/20/18 17:20: White Blood Count 10.0, Red Blood Count 2.86L, Hemoglobin 8.2L, Hematocrit 27.5L , Mean Corpuscular Volume 96, Mean Corpuscular Hemoglobin 28.8, Mean Corpuscular Hemoglobin Concent 29.9L, Red Cell Distribution Width 18.8H, Platelet Count 416, Mean Platelet Volume 5.9L, Neutrophils (%) (Auto) 81.3H, Lymphocytes (%) (Auto) 7.0L, Monocytes (%) (Auto) 9.3, Eosinophils (%) (Auto) 1.4, Basophils (%) (Auto) 1.0, Sodium Level 138, Potassium Level 3.2L, Chloride Level 101, Carbon Dioxide Level 29, Anion Gap 8, Blood Urea Nitrogen 25H, Creatinine 2.4H, Estimat Glomerular Filtration Rate , Glucose Level 127H, Calcium Level 8.7, Total Bilirubin 0.3, Aspartate Amino Transf (AST/SGOT) 16, Alanine Aminotransferase (ALT/SGPT) 8L, Alkaline Phosphatase 177H, Total Protein 5.9L, Albumin 1.5L, Globulin 4.4, Albumin/Globulin Ratio 0.3L Height (Feet): 5 Height (Inches): 2.00 Weight (Pounds): 107 Objective On vent. Trach clean. Cv IRR/IRR Lungs B ronchi. Abd SNT. BS + New PEG. E Rt. foot diabetic ulcers Chase He MD Aug 21, 2018 12:07
--- NOTE | 2018-08-21 12:18 | NUR ---
NURSE NOTES: Dr He here to see the patient. Called [facility] for Dialysis order for tomorrow.
--- NOTE | 2018-08-21 12:59 | Cardiology Progress Note ---
Assessment/Plan Assessment/Plan 1. Hypotension, possibly sepsis versus volume. 2. Paroxysmal episodes of atrial fibrillation history. 3. Bradycardia secondary to medications, amiodarone possibly. 4. Diabetes mellitus. 5. End-stage renal disease, on hemodialysis. 6. Lung collapse. 7. Respiratory failure, status post intubation. 8. Dysphagia. 9. History of dementia. 10. Pulm htn 11. Pleural effusion 12. cardaic arrest 13. chest wall pain post cpr mostly in sinus now stool ob neg x2 amiod bid for another 1 week off labetalol for now if needed hydralazine to be used vent support s/p trach peg done tele reviewed again sinus on elequis 2.5 mg bid for stroke prevention Subjective Cardiovascular: Denies: chest pain Respiratory: Reports: shortness of breath Gastrointestinal/Abdominal: Denies: abdominal pain Genitourinary: Denies: burning Subjective on the vent not verba , Objective Last 24 Hour Vital Signs Date Time Temp Pulse Resp B/P (MAP) Pulse Ox O2 Delivery O2 Flow Rate FiO2 08/21/18 12:36 85 16 40 08/21/18 12:00 Mechanical Ventilator Mechanical Ventilator 08/21/18 12:00 40 08/21/18 12:00 98.2 83 18 118/20 (52) 99 08/21/18 11:26 82 08/21/18 11:00 74 15 126/10 (48) 97 08/21/18 10:45 76 16 40 08/21/18 10:00 73 16 131/22 (58) 100 08/21/18 09:13 108 18 40 08/21/18 09:00 97.8 78 14 126/24 (58) 100 08/21/18 08:02 87 08/21/18 08:00 87 18 144/18 (60) 100 08/21/18 08:00 Mechanical Ventilator Mechanical Ventilator 08/21/18 08:00 40 08/21/18 07:14 88 15 40 08/21/18 07:00 86 15 137/26 (63) 100 08/21/18 06:00 104 14 118/25 (56) 100 08/21/18 05:00 78 15 140/29 (66) 100 08/21/18 04:54 79 15 40 08/21/18 04:00 69 08/21/18 04:00 98.2 79 14 149/26 (67) 100 08/21/18 04:00 Mechanical Ventilator Mechanical Ventilator 08/21/18 04:00 40 08/21/18 03:18 69 11 40 08/21/18 03:00 68 12 92/21 (44) 100 08/21/18 02:00 78 17 95/28 (50) 100 08/21/18 01:01 72 13 40 08/21/18 01:00 77 16 92/15 (40) 100 08/21/18 00:00 98.4 67 16 96/17 (43) 100 08/21/18 00:00 40 08/21/18 00:00 Mechanical Ventilator Mechanical Ventilator 08/21/18 00:00 67 08/20/18 23:06 68 13 40 08/20/18 23:00 68 13 104/15 (44) 100 08/20/18 22:00 79 15 124/12 (49) 100 08/20/18 21:00 74 15 95/21 (45) 100 08/20/18 20:57 74 13 40 08/20/18 20:37 111/15 08/20/18 20:00 98.3 72 12 111/15 (47) 100 08/20/18 20:00 Mechanical Ventilator Mechanical Ventilator 08/20/18 20:00 40 08/20/18 20:00 71 08/20/18 19:00 75 15 105/12 (43) 100 08/20/18 18:56 81 16 40 08/20/18 18:00 79 15 104/21 (48) 100 08/20/18 17:05 80 15 40 08/20/18 17:00 82 16 112/47 (68) 100 08/20/18 16:02 83 08/20/18 16:00 40 08/20/18 16:00 98.4 81 16 121/28 (59) 100 08/20/18 16:00 Mechanical Ventilator Mechanical Ventilator 08/20/18 15:00 89 17 115/30 (58) 100 08/20/18 14:42 111 19 40 08/20/18 14:00 108 14 120/47 (71) 100 08/20/18 13:01 120 12 40 08/20/18 13:00 108 15 109/80 (90) 100 General Appearance: no apparent distress, alert Neck: supple Cardiovascular: normal rate, regular rhythm Respiratory/Chest: lungs clear Abdomen: normal bowel sounds, non tender, soft Extremities: no swelling Intake and Output 08/20/18 08/21/18 18:59 06:59 Intake Total 630 ml 630 ml Output Total 70 ml Balance 630 ml 560 ml Free Water 50 ml 50 ml Tube Feeding 480 ml 480 ml Other 100 ml 100 ml Stool Total 70 ml # Voids 50 # Bowel Movements 3 3 Laboratory Tests Test 08/20/18 17:20 White Blood Count 10.0 K/UL (4.8-10.8) Red Blood Count 2.86 M/UL (4.20-5.40) L Hemoglobin 8.2 G/DL (12.0-16.0) L Hematocrit 27.5 % (37.0-47.0) L Mean Corpuscular Volume 96 FL (80-99) Mean Corpuscular Hemoglobin 28.8 PG (27.0-31.0) Mean Corpuscular Hemoglobin Concent 29.9 G/DL (32.0-36.0) L Red Cell Distribution Width 18.8 % (11.6-14.8) H Platelet Count 416 K/UL (150-450) Mean Platelet Volume 5.9 FL (6.5-10.1) L Neutrophils (%) (Auto) 81.3 % (45.0-75.0) H Lymphocytes (%) (Auto) 7.0 % (20.0-45.0) L Monocytes (%) (Auto) 9.3 % (1.0-10.0) Eosinophils (%) (Auto) 1.4 % (0.0-3.0) Basophils (%) (Auto) 1.0 % (0.0-2.0) Sodium Level 138 MMOL/L (136-145) Potassium Level 3.2 MMOL/L (3.5-5.1) L Chloride Level 101 MMOL/L (98-107) Carbon Dioxide Level 29 MMOL/L (21-32) Anion Gap 8 mmol/L (5-15) Blood Urea Nitrogen 25 mg/dL (7-18) H Creatinine 2.4 MG/DL (0.55-1.30) H Estimat Glomerular Filtration Rate mL/min (>60) Glucose Level 127 MG/DL (74-106) H Calcium Level 8.7 MG/DL (8.5-10.1) Total Bilirubin 0.3 MG/DL (0.2-1.0) Aspartate Amino Transf (AST/SGOT) 16 U/L (15-37) Alanine Aminotransferase (ALT/SGPT) 8 U/L (12-78) L Alkaline Phosphatase 177 U/L (46-116) H Total Protein 5.9 G/DL (6.4-8.2) L Albumin 1.5 G/DL (3.4-5.0) L Globulin 4.4 g/dL Albumin/Globulin Ratio 0.3 (1.0-2.7) L Angelo Butler MD Aug 21, 2018 12:59
--- NOTE | 2018-08-21 15:20 | NUR ---
TRANSFER TO FLOOR: Patient transferred to [address] [place] [id number]. Report given to BALDO Pride. No belonging. Medications given to BALDO Pride. Son present at the time of transfer.
[2018-08-21] MEDS ORDERED: Albuterol/Ipratropium 3ml neb HHN PRN (15:30)
--- NOTE | 2018-08-21 15:45 | NUR ---
NURSE NOTES: Bedside repot Received from Regina Koenig RN,arousable to verbal and tactile stimuli. Able to communicate by nodding, or shaking head. patient on vent AC 8 Vt 450 PEEP 5 40% FiO2. PEG in place, secured with abdominal binder. Dressing dry and intact. Feeding Nepro 40ml/hr. No residual. patient has Right upper arm midline intact and patent . Bilateral soft wrist restraints on at this time, pt reaches for trach site. Head of bed elevated. Bed locked and in low position. On contact precautions. Will continue to monitor
[2018-08-21] MEDS: Acetaminophen 650mg/20.3ml GT PRN (16:04)
--- NOTE | 2018-08-21 19:40 | NUR ---
NURSE NOTES: Received Pt is resting on the bed and awake and confused. On bilateral soft restraint. Checked comfort and circulation. Trying to release restraint when during care bit Pt still trying to touch G-tube, Vent and IV area. Given verbal cueing but doesn't understanding. Dressing is clean and dry on Rt. upper arm id line area. Pt has multiple wounds and dressing is clean and dry. On Tele monitor. Lt upper arm AV shunt present of bruit and thrills. Pt scheduled Hemodialysis tomorrow. According to previous nurse he already called hemodialysis center. Trach to Vent dependent setting with AC; 8, TV: 450, P; 5, FiO2 40% with SaO2 99% noted. Given oral and tracheal suction. No sign of acute distress noted. On P 200 mattress. Changed position. Will continue to care plan.
[2018-08-21] MEDS: Dyna-Hex 2% Top Sol 2oz TOPIC SCH (20:18)
[2018-08-22] VITALS: BP 119/50
[2018-08-22 04:00] VITALS: BP 116/55
--- NOTE | 2018-08-22 06:53 | General Progress Note ---
Assessment/Plan Assessment/Plan Assessment - Dysphagia - Resp failure - ESRD - Anemia - Status post PEG Recommendations 1. Abdominal binder. 2. Elevate the head of the bed at all times. 3. G-tube flush. 4. G-tube care. 5. Start tube feeding later today per RD to goal Monitor H&H, PRN transfusions PPI Electrolyte correction Follow-up labs Subjective ROS Limited/Unobtainable: No Allergies: Coded Allergies: No Known Allergies (Unverified , 07/25/18) Objective Last 24 Hour Vital Signs Date Time Temp Pulse Resp B/P (MAP) Pulse Ox O2 Delivery O2 Flow Rate FiO2 08/22/18 04:57 80 19 40 08/22/18 04:00 40 08/22/18 04:00 Mechanical Ventilator Mechanical Ventilator 08/22/18 04:00 98.4 66 18 116/55 (75) 97 08/22/18 04:00 68 08/22/18 02:43 74 14 40 08/22/18 01:09 79 14 40 08/22/18 00:00 40 08/22/18 00:00 Mechanical Ventilator Mechanical Ventilator 08/22/18 00:00 83 08/22/18 00:00 98.0 74 18 119/50 (73) 97 08/21/18 23:30 81 17 40 08/21/18 21:28 78 17 40 08/21/18 21:18 130/93 08/21/18 20:00 81 08/21/18 20:00 40 08/21/18 20:00 98.6 83 18 130/93 (105) 97 08/21/18 20:00 Mechanical Ventilator Mechanical Ventilator 08/21/18 19:31 80 17 40 08/21/18 16:45 83 17 40 08/21/18 16:00 Mechanical Ventilator Mechanical Ventilator 08/21/18 16:00 40 08/21/18 16:00 83 08/21/18 15:00 85 17 101/61 (74) 99 08/21/18 14:56 88 17 40 08/21/18 14:00 91 17 106/73 (84) 99 08/21/18 13:00 87 17 118/20 (52) 97 08/21/18 12:36 85 16 40 08/21/18 12:00 Mechanical Ventilator Mechanical Ventilator 08/21/18 12:00 40 12/23/18 12:00 98.2 83 18 118/20 (52) 99 08/21/18 11:26 82 08/21/18 11:00 74 15 126/10 (48) 97 08/21/18 10:45 76 16 40 08/21/18 10:00 73 16 131/22 (58) 100 08/21/18 09:13 108 18 40 08/21/18 09:00 97.8 78 14 126/24 (58) 100 08/21/18 08:02 87 08/21/18 08:00 87 18 144/18 (60) 100 08/21/18 08:00 Mechanical Ventilator Mechanical Ventilator 08/21/18 08:00 40 08/21/18 07:14 88 15 40 08/21/18 07:00 86 15 137/26 (63) 100 Intake and Output 08/21/18 08/22/18 19:00 07:00 Intake Total 460 ml 400 ml Output Total 50 ml Balance 460 ml 350 ml Free Water 50 ml Tube Feeding 360 ml 400 ml Other 50 ml Stool Total 50 ml # Bowel Movements 3 3 Height (Feet): 5 Height (Inches): 2.00 Weight (Pounds): 111 General Appearance: lethargic EENT: normal ENT inspection Neck: supple Cardiovascular: normal rate Respiratory/Chest: decreased breath sounds Abdomen: normal bowel sounds, non tender, soft Extremities: non-tender Oc Cox MD Aug 22, 2018 06:53
--- NOTE | 2018-08-22 07:20 | NUR ---
HAND-OFF: Report given to BALDO Perkins. Pt is resting on the bed and no sign of acute distress noted.
--- NOTE | 2018-08-22 07:38 | NUR ---
NURSE NOTES: Report received from BALDO Herron. Observed patient in bed. Open eyes spontaneously but non-verbal. No s/s of pain at this time. On ventilator with previous setting and tolerated well. GT site intact with ongoing feeding. HOB elevated. Rectal tube intact and draining well. IVF running at prescribed rate. Bed in lowest position. Call light within reach. Will continue to monitor.
--- NOTE | 2018-08-22 07:52 | NUR ---
RESPIRATORY NOTE: Received pt. on 840 vent. Vent settings are: A/C rate of 8, Vt 450, FI02 40%, PEEP +5. No respiratory distress noted, Sp02 @ 97%. Ambu bag @ bs. Vent plugged on red outlet. Will continue to monitor pt.
[2018-08-22 08:00] VITALS: BP 134/64
[2018-08-22] MEDS: Pantoprazole Inj IVP SCH (09:02)
[2018-08-22] MEDS: Vitamin D 1000 IU Tab GT SCH (09:03)
[2018-08-22] MEDS: Minoxidil 2.5mg tab NG SCH ×2 (09:03→21:00)
[2018-08-22] MEDS: Amiodarone 200mg tab NG SCH ×2 (09:03→21:04)
[2018-08-22] MEDS: Eliquis 2.5mg tablet NG SCH ×2 (09:03→18:09)
[2018-08-22] MEDS ORDERED: NS 275ml ONE ×2 (10:22→10:39)
[2018-08-22 11:48] VITALS: BP 123/51
--- NOTE | 2018-08-22 12:11 | Cardiology Progress Note ---
Assessment/Plan Assessment/Plan 1. Hypotension, possibly sepsis versus volume. 2. Paroxysmal episodes of atrial fibrillation history. 3. Bradycardia secondary to medications, amiodarone possibly. 4. Diabetes mellitus. 5. End-stage renal disease, on hemodialysis. 6. Lung collapse. 7. Respiratory failure, status post intubation. 8. Dysphagia. 9. History of dementia. 10. Pulm htn 11. Pleural effusion 12. cardaic arrest 13. chest wall pain post cpr mostly in sinus now stool ob neg x2 amiod bid unitl aug 30 then 200 mg daily off labetalol for now if needed hydralazine to be used vent support s/p trach peg done tele reviewed again sinus on elequis 2.5 mg bid for stroke prevention no new lab siwll order for tomorrow Subjective Cardiovascular: Reports: lightheadedness; Denies: chest pain Respiratory: Reports: shortness of breath Gastrointestinal/Abdominal: Denies: abdominal pain Genitourinary: Denies: burning Subjective on the vent not verba , Objective Last 24 Hour Vital Signs Date Time Temp Pulse Resp B/P (MAP) Pulse Ox O2 Delivery O2 Flow Rate FiO2 08/22/18 12:00 40 08/22/18 12:00 Mechanical Ventilator Mechanical Ventilator 08/22/18 11:48 98.4 86 20 123/51 (75) 99 08/22/18 09:09 81 19 40 08/22/18 09:03 134/64 08/22/18 08:00 Mechanical Ventilator Mechanical Ventilator 08/22/18 08:00 84 08/22/18 08:00 98.5 83 19 134/64 (87) 96 08/22/18 08:00 40 08/22/18 07:56 81 19 40 08/22/18 04:57 80 19 40 08/22/18 04:00 40 08/22/18 04:00 Mechanical Ventilator Mechanical Ventilator 08/22/18 04:00 98.4 66 18 116/55 (75) 97 08/22/18 04:00 68 08/22/18 02:43 74 14 40 08/22/18 01:09 79 14 40 08/22/18 00:00 40 08/22/18 00:00 Mechanical Ventilator Mechanical Ventilator 08/22/18 00:00 83 08/22/18 00:00 98.0 74 18 119/50 (73) 97 08/21/18 23:30 81 17 40 08/21/18 21:28 78 17 40 08/21/18 21:18 130/93 08/21/18 20:00 81 08/21/18 20:00 40 08/21/18 20:00 98.6 83 18 130/93 (105) 97 08/21/18 20:00 Mechanical Ventilator Mechanical Ventilator 08/21/18 19:31 80 17 40 08/21/18 16:45 83 17 40 08/21/18 16:00 Mechanical Ventilator Mechanical Ventilator 08/21/18 16:00 40 08/21/18 16:00 83 08/21/18 15:00 85 17 101/61 (74) 99 08/21/18 14:56 88 17 40 08/21/18 14:00 91 17 106/73 (84) 99 08/21/18 13:00 87 17 118/20 (52) 97 08/21/18 12:36 85 16 40 General Appearance: no apparent distress, alert, on vent, patient on isolation Cardiovascular: normal rate Respiratory/Chest: lungs clear Abdomen: normal bowel sounds Extremities: no swelling Intake and Output 08/21/18 08/22/18 18:59 06:59 Intake Total 460 ml 440 ml Output Total 50 ml Balance 460 ml 390 ml Free Water 50 ml Tube Feeding 360 ml 440 ml Other 50 ml Stool Total 50 ml # Bowel Movements 3 3 Angelo Butler MD Aug 22, 2018 12:11
--- NOTE | 2018-08-22 14:27 | Nephrology Progress Note ---
Assessment/Plan Assessment Seee below Plan MOF resolving. ESRD HD q MWF Anemia of CKD , DARRYN high dose. Transfuse PRN. A. 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 with LAE. LVEF 65% . On Eliquis. Post trach + PEG . Referred to [facility]. See orders. DW pt's son. Needs extensive Vascular W/U. Subjective Subjective Starting HD. No c/o. Objective Objective Last 24 Hour Vital Signs Date Time Temp Pulse Resp B/P (MAP) Pulse Ox O2 Delivery O2 Flow Rate FiO2 08/22/18 12:00 84 08/22/18 12:00 40 08/22/18 12:00 Mechanical Ventilator Mechanical Ventilator 08/22/18 11:48 98.4 86 20 123/51 (75) 99 08/22/18 11:30 79 18 40 08/22/18 09:09 81 19 40 08/22/18 09:03 134/64 08/22/18 08:00 Mechanical Ventilator Mechanical Ventilator 08/22/18 08:00 84 08/22/18 08:00 98.5 83 19 134/64 (87) 96 08/22/18 08:00 40 08/22/18 07:56 81 19 40 08/22/18 04:57 80 19 40 08/22/18 04:00 40 08/22/18 04:00 Mechanical Ventilator Mechanical Ventilator 08/22/18 04:00 98.4 66 18 116/55 (75) 97 08/22/18 04:00 68 08/22/18 02:43 74 14 40 08/22/18 01:09 79 14 40 08/22/18 00:00 40 08/22/18 00:00 Mechanical Ventilator Mechanical Ventilator 08/22/18 00:00 83 08/22/18 00:00 98.0 74 18 119/50 (73) 97 08/21/18 23:30 81 17 40 08/21/18 21:28 78 17 40 08/21/18 21:18 130/93 08/21/18 20:00 81 08/21/18 20:00 40 08/21/18 20:00 98.6 83 18 130/93 (105) 97 08/21/18 20:00 Mechanical Ventilator Mechanical Ventilator 08/21/18 19:31 80 17 40 08/21/18 16:45 83 17 40 08/21/18 16:00 Mechanical Ventilator Mechanical Ventilator 08/21/18 16:00 40 08/21/18 16:00 83 08/21/18 15:00 85 17 101/61 (74) 99 08/21/18 14:56 88 17 40 Intake and Output 08/21/18 08/22/18 18:59 06:59 Intake Total 460 ml 440 ml Output Total 50 ml Balance 460 ml 390 ml Free Water 50 ml Tube Feeding 360 ml 440 ml Other 50 ml Stool Total 50 ml # Bowel Movements 3 3 Height (Feet): 5 Height (Inches): 2.00 Weight (Pounds): 111 Objective On vent. Trach clean. Cv IRR/IRR Lungs B ronchi. Abd SNT. BS + New PEG. E Rt. foot diabetic ulcers Chase He MD Aug 22, 2018 14:27
[2018-08-22 15:15] LABS: ALANINE AMINOTRANSFERASE 9 U/L (12-78); ALBUMIN 1.6 G/DL (3.4-5.0); ALBUMIN/GLOBULIN RATIO 0.3 (1.0-2.7); ALKALINE PHOSPHATASE 201 U/L (46-116); ANION GAP 10 mmol/L (5-15); ASPARTATE AMINO TRANSFERASE 27 U/L (15-37); BILIRUBIN,TOTAL 0.3 MG/DL (0.2-1.0); BLOOD UREA NITROGEN 43 mg/dL (7-18); CARBON DIOXIDE 27 MMOL/L (21-32); CHLORIDE 97 MMOL/L (98-107); POTASSIUM 3.5 MMOL/L (3.5-5.1); SODIUM 134 MMOL/L (136-145)
--- NOTE | 2018-08-22 15:54 | Infectious Diseases Prog Note ---
"Assessment/Plan Assessment/Plan antibiotics : none A 1. 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 shock resolved 3. leucocytosis 4. respiratory failure s/p tracheostomy 5. renal failure 6. 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 pleural effusion P 1. observe off antibiotics Subjective ROS Limited/Unobtainable: Yes Allergies: Coded Allergies: No Known Allergies (Unverified , 07/25/18) Objective Vital Signs Last 24 Hour Vital Signs Date Time Temp Pulse Resp B/P (MAP) Pulse Ox O2 Delivery O2 Flow Rate FiO2 08/22/18 15:47 81 20 40 08/22/18 13:30 78 19 40 08/22/18 12:00 84 08/22/18 12:00 40 08/22/18 12:00 Mechanical Ventilator Mechanical Ventilator 08/22/18 11:48 98.4 86 20 123/51 (75) 99 08/22/18 11:30 79 18 40 08/22/18 09:09 81 19 40 08/22/18 09:03 134/64 08/22/18 08:00 Mechanical Ventilator Mechanical Ventilator 08/22/18 08:00 84 08/22/18 08:00 98.5 83 19 134/64 (87) 96 08/22/18 08:00 40 08/22/18 07:56 81 19 40 08/22/18 04:57 80 19 40 08/22/18 04:00 40 08/22/18 04:00 Mechanical Ventilator Mechanical Ventilator 08/22/18 04:00 98.4 66 18 116/55 (75) 97 08/22/18 04:00 68 08/22/18 02:43 74 14 40 08/22/18 01:09 79 14 40 08/22/18 00:00 40 08/22/18 00:00 Mechanical Ventilator Mechanical Ventilator 08/22/18 00:00 83 08/22/18 00:00 98.0 74 18 119/50 (73) 97 08/21/18 23:30 81 17 40 08/21/18 21:28 78 17 40 08/21/18 21:18 130/93 08/21/18 20:00 81 08/21/18 20:00 40 08/21/18 20:00 98.6 83 18 130/93 (105) 97 08/21/18 20:00 Mechanical Ventilator Mechanical Ventilator 08/21/18 19:31 80 17 40 08/21/18 16:45 83 17 40 08/21/18 16:00 Mechanical Ventilator Mechanical Ventilator 08/21/18 16:00 40 08/21/18 16:00 83 Height (Feet): 5 Height (Inches): 2.00 Weight (Pounds): 111 HEENT: status post trach Respiratory/Chest: lungs clear Cardiovascular: normal rate, regular rhythm, no gallop/murmur Abdomen: soft, non tender, other - GT Extremities: no edema, other - right arm PICC Laboratory Tests Test 08/22/18 14:40 Sodium Level 134 MMOL/L (136-145) L Potassium Level 3.5 MMOL/L (3.5-5.1) Chloride Level 97 MMOL/L (98-107) L Carbon Dioxide Level 27 MMOL/L (21-32) Anion Gap 10 mmol/L (5-15) Blood Urea Nitrogen 43 mg/dL (7-18) H Creatinine 3.0 MG/DL (0.55-1.30) H Estimat Glomerular Filtration Rate mL/min (>60) Glucose Level 135 MG/DL (74-106) H Calcium Level 9.0 MG/DL (8.5-10.1) Total Bilirubin 0.3 MG/DL (0.2-1.0) Aspartate Amino Transf (AST/SGOT) 27 U/L (15-37) Alanine Aminotransferase (ALT/SGPT) 9 U/L (12-78) L Alkaline Phosphatase 201 U/L (46-116) H Total Protein 7.6 G/DL (6.4-8.2) Albumin 1.6 G/DL (3.4-5.0) L Globulin 6.0 g/dL Albumin/Globulin Ratio 0.3 (1.0-2.7) L Current Medications Medications (Trade) Dose Ordered Sig/Renetta Route PRN Reason Start Time Stop Time Status Last Admin Dose Admin Acetaminophen (Tylenol) 650 mg Q6H PRN GT Mild Pain/Temp > 100.5 08/21/18 16:00 09/18/18 15:59 08/21/18 16:04 Amiodarone HCl (Cordarone) 200 mg EVERY 12 HOURS NG 08/21/18 21:00 09/03/18 13:59 08/22/18 09:03 Apixaban (Eliquis) 2.5 mg BID NG 08/21/18 18:00 09/18/18 08:59 08/22/18 09:03 Artificial Tears (Akwa-Tears) 1 drop Q4H PRN BOTH EYES Dry Eyes 08/21/18 15:30 09/19/18 15:29 Chlorhexidine Gluconate (Rylie-Hex 2%) 1 applic DAILY@2000 TOPIC 08/21/18 20:00 08/25/18 19:59 08/21/18 20:18 Collagenase (Santyl) 1 applic Q12HR TOPIC 08/21/18 21:00 09/03/18 20:59 08/22/18 09:05 Epoetin Paul (Procrit (for ESRD on dialysis)) 10,000 units SUBQ 08/22/18 21:00 08/26/18 20:59 Lansoprazole (Prevacid) 30 mg Q12HR ORAL 08/22/18 21:00 09/21/18 20:59 Minoxidil (Loniten) 5 mg Q12HR NG 08/21/18 21:00 08/30/18 20:59 08/22/18 09:03 Sodium Chloride 1,000 ml @ 500 mls/hr Q2H PRN IVLG sbp<90 during hd 08/21/18 15:30 09/20/18 15:29 Sodium Chloride ([place] Nasal [place]) 1 spray Q4H PRN NASAL dry nose 08/21/18 14:30 09/19/18 18:29 Vitamin D (Vitamin D) 1,000 intlu DAILY GT 08/22/18 09:00 09/06/18 09:59 08/22/18 09:03 Omid Morfin MD Aug 22, 2018 15:54"
--- NOTE | 2018-08-22 15:55 | Pulmonology Progress Note ---
Assessment/Plan Assessment/Plan Pulmonary Progress Note Assessment/Plan Assessment/Plan IMPRESSION: 1. Hypotension. Resolved. 2. Sepsis. 3. Atrial fibrillation. 4. Bradycardia. 5. Diabetes mellitus. 6. End-stage renal disease on dialysis. 7. Left lung collapse. Resolved 8. Respiratory failure. now status post tracheostomy 9. Dysphagia. 10. Dementia. 11. Anemia 12. Pneumonia DISCUSSION: 1. Continue medications. 2. CXR improved 3. Status post tracheostomy 4. S/p G-tube Subjective Interval Events: None reported Constitutional: Reports: no symptoms HEENT: Repors: no symptoms Respiratory: Reports: no symptoms Cardiovascular: Reports: no symptoms Gastrointestinal/Abdominal: Reports: no symptoms Genitourinary: Reports: no symptoms Neurologic: Reports: no symptoms Psychiatric: Reports: no symptoms Allergies: Coded Allergies: No Known Allergies (Unverified , 07/25/18) Objective Vital Signs Noted General Appearance: no acute distress HEENT: normocephalic, status post trach Respiratory/Chest: chest wall non-tender, decreased breath sounds Cardiovascular: normal peripheral pulses, normal rate Abdomen: normal bowel sounds, soft, non tender Laboratory Tests 08/20/18 17:20: White Blood Count 10.0, Red Blood Count 2.86L, Hemoglobin 8.2L, Hematocrit 27.5L , Mean Corpuscular Volume 96, Mean Corpuscular Hemoglobin 28.8, Mean Corpuscular Hemoglobin Concent 29.9L, Red Cell Distribution Width 18.8H, Platelet Count 416, Mean Platelet Volume 5.9L, Neutrophils (%) (Auto) 81.3H, Lymphocytes (%) (Auto) 7.0L, Monocytes (%) (Auto) 9.3, Eosinophils (%) (Auto) 1.4, Basophils (%) (Auto) 1.0, Sodium Level 138, Potassium Level 3.2L, Chloride Level 101, Carbon Dioxide Level 29, Anion Gap 8, Blood Urea Nitrogen 25H, Creatinine 2.4H, Estimat Glomerular Filtration Rate , Glucose Level 127H, Calcium Level 8.7, Total Bilirubin 0.3, Aspartate Amino Transf (AST/SGOT) 16, Alanine Aminotransferase (ALT/SGPT) 8L, Alkaline Phosphatase 177H, Total Protein 5.9L, Albumin 1.5L, Globulin 4.4, Albumin/Globulin Ratio 0.3L Current Medications Medications (Trade) Dose Ordered Sig/Renetta Route PRN Reason Start Time Stop Time Status Last Admin Dose Admin Acetaminophen (Tylenol) 650 mg Q6H PRN GT Mild Pain/Temp > 100.5 08/19/18 16:00 09/18/18 15:59 08/20/18 18:41 Albuterol/ Ipratropium (Albuterol/ Ipratropium) 3 ml Q6H PRN HHN Shortness of Breath 08/16/18 19:15 08/21/18 19:14 08/19/18 10:27 Amiodarone HCl (Cordarone) 200 mg EVERY 12 HOURS NG 08/06/18 21:00 09/03/18 13:59 08/20/18 20:37 Apixaban (Eliquis) 2.5 mg BID NG 08/19/18 18:00 09/18/18 08:59 08/20/18 17:26 Artificial Tears (Akwa-Tears) 1 drop Q4H PRN BOTH EYES Dry Eyes 08/20/18 18:30 09/19/18 18:29 Chlorhexidine Gluconate (Rylie-Hex 2%) 1 applic DAILY@2000 TOPIC 07/26/18 20:00 08/25/18 19:59 08/20/18 19:16 Collagenase (Santyl) 1 applic Q12HR TOPIC 08/10/18 21:00 09/03/18 20:59 08/20/18 20:37 Epoetin Paul (Procrit (for ESRD on dialysis)) 10,000 units WED-WED-WED SUBQ 07/27/18 21:00 08/26/18 20:59 08/19/18 20:29 Minoxidil (Loniten) 5 mg Q12HR NG 07/31/18 21:00 08/30/18 20:59 08/20/18 20:37 Pantoprazole (Protonix) 40 mg Q12HR IVP 07/25/18 21:00 08/25/18 08:59 08/20/18 20:37 Sodium Chloride ([place] Nasal [place]) 1 spray Q4H PRN NASAL dry nose 08/20/18 18:30 09/19/18 18:29 Vitamin D (Vitamin D) 1,000 intlu DAILY GT 08/07/18 10:00 09/06/18 09:59 08/20/18 08:20 Subjective ROS Limited/Unobtainable: No Allergies: Coded Allergies: No Known Allergies (Unverified , 07/25/18) Objective Last 24 Hour Vital Signs Date Time Temp Pulse Resp B/P (MAP) Pulse Ox O2 Delivery O2 Flow Rate FiO2 08/22/18 15:47 81 20 40 08/22/18 13:30 78 19 40 08/22/18 12:00 84 08/22/18 12:00 40 08/22/18 12:00 Mechanical Ventilator Mechanical Ventilator 08/22/18 11:48 98.4 86 20 123/51 (75) 99 08/22/18 11:30 79 18 40 08/22/18 09:09 81 19 40 08/22/18 09:03 134/64 08/22/18 08:00 Mechanical Ventilator Mechanical Ventilator 08/22/18 08:00 84 08/22/18 08:00 98.5 83 19 134/64 (87) 96 08/22/18 08:00 40 08/22/18 07:56 81 19 40 08/22/18 04:57 80 19 40 08/22/18 04:00 40 08/22/18 04:00 Mechanical Ventilator Mechanical Ventilator 08/22/18 04:00 98.4 66 18 116/55 (75) 97 08/22/18 04:00 68 08/22/18 02:43 74 14 40 08/22/18 01:09 79 14 40 08/22/18 00:00 40 08/22/18 00:00 Mechanical Ventilator Mechanical Ventilator 08/22/18 00:00 83 08/22/18 00:00 98.0 74 18 119/50 (73) 97 08/21/18 23:30 81 17 40 08/21/18 21:28 78 17 40 08/21/18 21:18 130/93 08/21/18 20:00 81 08/21/18 20:00 40 08/21/18 20:00 98.6 83 18 130/93 (105) 97 08/21/18 20:00 Mechanical Ventilator Mechanical Ventilator 08/21/18 19:31 80 17 40 08/21/18 16:45 83 17 40 08/21/18 16:00 Mechanical Ventilator Mechanical Ventilator 08/21/18 16:00 40 08/21/18 16:00 83 Intake and Output 08/21/18 08/22/18 18:59 06:59 Intake Total 460 ml 440 ml Output Total 50 ml Balance 460 ml 390 ml Free Water 50 ml Tube Feeding 360 ml 440 ml Other 50 ml Stool Total 50 ml # Bowel Movements 3 3 Laboratory Tests 08/22/18 14:40: Sodium Level 134L, Potassium Level 3.5, Chloride Level 97L, Carbon Dioxide Level 27, Anion Gap 10, Blood Urea Nitrogen 43H, Creatinine 3.0H, Estimat Glomerular Filtration Rate , Glucose Level 135H, Calcium Level 9.0, Total Bilirubin 0.3, Aspartate Amino Transf (AST/SGOT) 27, Alanine Aminotransferase ( ALT/SGPT) 9L, Alkaline Phosphatase 201H, Total Protein 7.6, Albumin 1.6L, Globulin 6.0, Albumin/Globulin Ratio 0.3L Current Medications Medications (Trade) Dose Ordered Sig/Renetta Route PRN Reason Start Time Stop Time Status Last Admin Dose Admin Acetaminophen (Tylenol) 650 mg Q6H PRN GT Mild Pain/Temp > 100.5 08/21/18 16:00 09/18/18 15:59 08/21/18 16:04 Amiodarone HCl (Cordarone) 200 mg EVERY 12 HOURS NG 08/21/18 21:00 09/03/18 13:59 08/22/18 09:03 Apixaban (Eliquis) 2.5 mg BID NG 08/21/18 18:00 09/18/18 08:59 08/22/18 09:03 Artificial Tears (Akwa-Tears) 1 drop Q4H PRN BOTH EYES Dry Eyes 08/21/18 15:30 09/19/18 15:29 Chlorhexidine Gluconate (Rylie-Hex 2%) 1 applic DAILY@1999 TOPIC 08/21/18 20:00 08/25/18 19:59 08/21/18 20:18 Collagenase (Santyl) 1 applic Q12HR TOPIC 08/21/18 21:00 09/03/18 20:59 08/22/18 09:05 Epoetin Paul (Procrit (for ESRD on dialysis)) 10,000 units WED-WED-WED SUBQ 08/22/18 21:00 08/26/18 20:59 Lansoprazole (Prevacid) 30 mg Q12HR ORAL 08/22/18 21:00 09/21/18 20:59 Minoxidil (Loniten) 5 mg Q12HR NG 08/21/18 21:00 08/30/18 20:59 08/22/18 09:03 Sodium Chloride 1,000 ml @ 500 mls/hr Q2H PRN IVLG sbp<90 during hd 08/21/18 15:30 09/20/18 15:29 Sodium Chloride ([place] Nasal [place]) 1 spray Q4H PRN NASAL dry nose 08/21/18 14:30 09/19/18 18:29 Vitamin D (Vitamin D) 1,000 intlu DAILY GT 08/22/18 09:00 09/06/18 09:59 08/22/18 09:03 Negro Patel MD Aug 22, 2018 15:55
[2018-08-22 16:00] VITALS: BP 113/21
[2018-08-22 17:57] LABS: BASOPHILS % (AUTO) 1.2 % (0.0-2.0); EOSINOPHILS % (AUTO) 1.6 % (0.0-3.0); HEMATOCRIT 32.2 % (37.0-47.0); HEMOGLOBIN 10.1 G/DL (12.0-16.0); LYMPHOCYTES % (AUTO) 6.4 % (20.0-45.0); MEAN CORPUSCULAR VOLUME 96 FL (80-99); NEUTROPHILS % (AUTO) 82.8 % (45.0-75.0); PLATELET COUNT 450 K/UL (150-450); RED BLOOD COUNT 3.35 M/UL (4.20-5.40); RED CELL DISTRIBUTION WIDTH 18.8 % (11.6-14.8)
[2018-08-22 18:15] LABS: ANION GAP 9 mmol/L (5-15); BLOOD UREA NITROGEN 16 mg/dL (7-18); CALCIUM 8.8 MG/DL (8.5-10.1); CARBON DIOXIDE 29 MMOL/L (21-32); CHLORIDE 98 MMOL/L (98-107); CREATININE 1.4 MG/DL (0.55-1.30); POTASSIUM 3.2 MMOL/L (3.5-5.1); SODIUM 136 MMOL/L (136-145)
--- NOTE | 2018-08-22 19:20 | NUR ---
HAND-OFF: Report given to BALDO Herron. Stable condition.
--- NOTE | 2018-08-22 19:30 | NUR ---
NURSE NOTES: Received Pt is resting on the bed and awake and confused. On bilateral soft restraint. Checked comfort and circulation. Trying to release restraint when during care bit Pt still trying to touch G-tube, Vent and IV area. Pt removed dressing on arms. Given verbal cueing but doesn't understanding. Dressing is clean and dry on Rt. upper arm id line area. Pt has multiple wounds and dressing is clean and dry. On Tele monitor. Lt upper arm AV shunt present of bruit and thrills. Trach to Vent dependent setting with AC; 8, TV: 450, P; 5, FiO2 40% with SaO2 97-98% noted. Given oral and tracheal suction. No sign of acute distress noted. On P 200 mattress. Noted swelling on both arms. Changed position. Placed fall precaution. Will continue to care plan.
[2018-08-22 20:00] VITALS: BP 118/52
[2018-08-22] MEDS: Dyna-Hex 2% Top Sol 2oz TOPIC SCH (20:06)
[2018-08-22] MEDS: Epogen (for ESRD on dialysis) SUBQ SCH (21:04)
[2018-08-23] VITALS: BP 123/55
[2018-08-23 04:00] VITALS: BP 139/81
[2018-08-23] MEDS: Acetaminophen 650mg/20.3ml GT PRN ×3 (04:09→17:43)
[2018-08-23 05:10] LABS: BASOPHILS % (AUTO) 1.7 % (0.0-2.0); EOSINOPHILS % (AUTO) 1.4 % (0.0-3.0); HEMATOCRIT 29.8 % (37.0-47.0); HEMOGLOBIN 9.3 G/DL (12.0-16.0); LYMPHOCYTES % (AUTO) 4.8 % (20.0-45.0); MEAN CORPUSCULAR VOLUME 96 FL (80-99); MONOCYTES % (AUTO) 10.2 % (1.0-10.0); NEUTROPHILS % (AUTO) 81.9 % (45.0-75.0); PLATELET COUNT 430 K/UL (150-450); RED BLOOD COUNT 3.09 M/UL (4.20-5.40); WHITE BLOOD COUNT 9.2 K/UL (4.8-10.8)
[2018-08-23 05:33] LABS: ALANINE AMINOTRANSFERASE 11 U/L (12-78); ALBUMIN 1.6 G/DL (3.4-5.0); ALBUMIN/GLOBULIN RATIO 0.3 (1.0-2.7); ALKALINE PHOSPHATASE 212 U/L (46-116); ANION GAP 6 mmol/L (5-15); ASPARTATE AMINO TRANSFERASE 31 U/L (15-37); BILIRUBIN,TOTAL 0.3 MG/DL (0.2-1.0); BLOOD UREA NITROGEN 27 mg/dL (7-18); CALCIUM 8.9 MG/DL (8.5-10.1); CARBON DIOXIDE 31 MMOL/L (21-32); CHLORIDE 98 MMOL/L (98-107); POTASSIUM 3.3 MMOL/L (3.5-5.1); SODIUM 135 MMOL/L (136-145)
--- NOTE | 2018-08-23 07:14 | NUR ---
NURSE NOTES: Report received from BALDO Herron. Observed patient in bed sleeping. Arousable by voice. Non-verbal but able to make needs known. On ventilator with previous setting and tolerated well. Denies pain at this time. Midline intact and patent. GT site intact with ongoing feeding. HOB elevated. Restraint noted on bilateral wrists. Skin is intact with good circulation. Bed in lowest position. Call light within reach. Will continue to monitor.
--- NOTE | 2018-08-23 07:15 | NUR ---
HAND-OFF: Report given to BALDO Perkins. Pt is resting on the bed and no sign of acute distress noted.
--- NOTE | 2018-08-23 07:49 | NUR ---
Received Patient on Vent Settings of ACVC RR 8, VT 450, FIO2 40%, PEEP +5. Patient has Shiley 8 tracheostomy tube that is secure and patent. Pt is alert, awake, and follows commands. Bilateral rhonchi heard upon auscultation. Suction minimal amounts of thin, clear secretions. Vent plugged into red outlet. Will continue to monitor throughout the day.
[2018-08-23 08:00] VITALS: BP 136/53
[2018-08-23] MEDS: Eliquis 2.5mg tablet NG SCH ×2 (08:32→17:39)
[2018-08-23] MEDS: Vitamin D 1000 IU Tab GT SCH (08:32)
[2018-08-23] MEDS: Minoxidil 2.5mg tab NG SCH ×2 (08:32→21:00)
[2018-08-23] MEDS: Amiodarone 200mg tab NG SCH ×2 (08:32→21:37)
--- NOTE | 2018-08-23 10:52 | General Progress Note ---
Assessment/Plan Assessment/Plan Assessment - Dysphagia - Resp failure - ESRD - Anemia - Status post PEG Recommendations 1. Abdominal binder. 2. Elevate the head of the bed at all times. 3. G-tube flush. 4. G-tube care. 5. Start tube feeding later today per RD to goal Monitor H&H, PRN transfusions PPI Electrolyte correction Follow-up labs Subjective ROS Limited/Unobtainable: No Allergies: Coded Allergies: No Known Allergies (Unverified , 07/25/18) Objective Last 24 Hour Vital Signs Date Time Temp Pulse Resp B/P (MAP) Pulse Ox O2 Delivery O2 Flow Rate FiO2 08/23/18 10:39 68 15 40 08/23/18 08:42 75 16 40 08/23/18 08:32 136/53 08/23/18 08:00 97.4 76 18 136/53 (80) 100 08/23/18 08:00 40 08/23/18 08:00 Mechanical Ventilator Mechanical Ventilator 08/23/18 08:00 81 08/23/18 07:09 71 15 40 08/23/18 05:10 79 21 40 08/23/18 04:00 76 08/23/18 04:00 Mechanical Ventilator Mechanical Ventilator 08/23/18 04:00 40 08/23/18 04:00 97.7 72 21 139/81 (100) 100 08/23/18 02:32 67 21 40 08/23/18 01:12 79 21 40 08/23/18 00:00 80 08/23/18 00:00 98.0 71 21 123/55 (77) 99 08/23/18 00:00 Mechanical Ventilator Mechanical Ventilator 08/23/18 00:00 40 08/22/18 23:30 78 15 40 08/22/18 21:08 82 16 40 08/22/18 21:00 115/52 08/22/18 20:00 97.6 73 21 118/52 (74) 99 08/22/18 20:00 Mechanical Ventilator Mechanical Ventilator 08/22/18 20:00 40 08/22/18 20:00 82 08/22/18 19:02 85 20 40 08/22/18 17:20 82 19 40 08/22/18 16:00 98.6 89 21 113/21 (51) 99 08/22/18 16:00 92 08/22/18 16:00 40 08/22/18 16:00 Mechanical Ventilator Mechanical Ventilator 08/22/18 15:47 81 20 40 08/22/18 13:30 78 19 40 08/22/18 12:00 84 08/22/18 12:00 40 08/22/18 12:00 Mechanical Ventilator Mechanical Ventilator 08/22/18 11:48 98.4 86 20 123/51 (75) 99 08/22/18 11:30 79 18 40 Intake and Output 08/22/18 08/23/18 19:00 07:00 Intake Total 770 ml 480 ml Output Total 2550 ml 30 ml Balance -1780 ml 450 ml Free Water 290 ml Tube Feeding 480 ml 480 ml Stool Total 50 ml 30 ml Hemodialysis UF 2500 ml # Bowel Movements 3 3 Laboratory Tests 08/22/18 14:40: Sodium Level 134L, Potassium Level 3.5, Chloride Level 97L, Carbon Dioxide Level 27, Anion Gap 10, Blood Urea Nitrogen 43H, Creatinine 3.0H, Estimat Glomerular Filtration Rate , Glucose Level 135H, Calcium Level 9.0, Total Bilirubin 0.3, Aspartate Amino Transf (AST/SGOT) 27, Alanine Aminotransferase ( ALT/SGPT) 9L, Alkaline Phosphatase 201H, Total Protein 7.6, Albumin 1.6L, Globulin 6.0, Albumin/Globulin Ratio 0.3L 08/22/18 17:15: Sodium Level 136, Potassium Level 3.2L, Chloride Level 98, Carbon Dioxide Level 29, Anion Gap 9, Blood Urea Nitrogen 16, Creatinine 1.4#H, Estimat Glomerular Filtration Rate , Glucose Level 114H, Calcium Level 8.8, White Blood Count 10.0 , Red Blood Count 3.35L, Hemoglobin 10.1L, Hematocrit 32.2L, Mean Corpuscular Volume 96, Mean Corpuscular Hemoglobin 30.2, Mean Corpuscular Hemoglobin Concent 31.4L, Red Cell Distribution Width 18.8H, Platelet Count 450, Mean Platelet Volume 5.7L, Neutrophils (%) (Auto) 82.8H, Lymphocytes (%) (Auto) 6.4L , Monocytes (%) (Auto) 8.0, Eosinophils (%) (Auto) 1.6, Basophils (%) (Auto) 1.2 08/23/18 03:30: Sodium Level 135L, Potassium Level 3.3L, Chloride Level 98, Carbon Dioxide Level 31, Anion Gap 6, Blood Urea Nitrogen 27H, Creatinine 2.0H, Estimat Glomerular Filtration Rate , Glucose Level 127H, Calcium Level 8.9, Total Bilirubin 0.3, Aspartate Amino Transf (AST/SGOT) 31, Alanine Aminotransferase ( ALT/SGPT) 11L, Alkaline Phosphatase 212H, Total Protein 7.4, Albumin 1.6L, Globulin 5.8, Albumin/Globulin Ratio 0.3L, White Blood Count 9.2, Red Blood Count 3.09L, Hemoglobin 9.3L, Hematocrit 29.8L, Mean Corpuscular Volume 96, Mean Corpuscular Hemoglobin 30.2, Mean Corpuscular Hemoglobin Concent 31.3L, Red Cell Distribution Width 19.0H, Platelet Count 430, Mean Platelet Volume 5.8L , Neutrophils (%) (Auto) 81.9H, Lymphocytes (%) (Auto) 4.8L, Monocytes (%) (Auto ) 10.2H, Eosinophils (%) (Auto) 1.4, Basophils (%) (Auto) 1.7 Height (Feet): 5 Height (Inches): 2.00 Weight (Pounds): 110 General Appearance: no apparent distress EENT: normal ENT inspection Neck: supple Cardiovascular: normal rate Respiratory/Chest: decreased breath sounds Abdomen: normal bowel sounds, non tender, soft Extremities: non-tender Oc Cox MD Aug 23, 2018 10:52
--- NOTE | 2018-08-23 11:00 | Nephrology Progress Note ---
Assessment/Plan Assessment Seee below Plan MOF resolving. ESRD HD q MWF Anemia of CKD , DARRYN high dose. Transfuse PRN. A. 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 with LAE. LVEF 65% . On Eliquis. Post trach + PEG . Referred to [facility]. See orders. DW pt's son. Needs extensive Vascular W/U. Subjective Subjective No c/o. Objective Objective Last 24 Hour Vital Signs Date Time Temp Pulse Resp B/P (MAP) Pulse Ox O2 Delivery O2 Flow Rate FiO2 08/23/18 10:39 68 15 40 08/23/18 08:42 75 16 40 08/23/18 08:32 136/53 08/23/18 08:00 97.4 76 18 136/53 (80) 100 08/23/18 08:00 40 08/23/18 08:00 Mechanical Ventilator Mechanical Ventilator 08/23/18 08:00 81 08/23/18 07:09 71 15 40 08/23/18 05:10 79 21 40 08/23/18 04:00 76 08/23/18 04:00 Mechanical Ventilator Mechanical Ventilator 08/23/18 04:00 40 08/23/18 04:00 97.7 72 21 139/81 (100) 100 08/23/18 02:32 67 21 40 08/23/18 01:12 79 21 40 08/23/18 00:00 80 08/23/18 00:00 98.0 71 21 123/55 (77) 99 08/23/18 00:00 Mechanical Ventilator Mechanical Ventilator 08/23/18 00:00 40 08/22/18 23:30 78 15 40 08/22/18 21:08 82 16 40 08/22/18 21:00 115/52 08/22/18 20:00 97.6 73 21 118/52 (74) 99 08/22/18 20:00 Mechanical Ventilator Mechanical Ventilator 08/22/18 20:00 40 08/22/18 20:00 82 08/22/18 19:02 85 20 40 08/22/18 17:20 82 19 40 08/22/18 16:00 98.6 89 21 113/21 (51) 99 08/22/18 16:00 92 08/22/18 16:00 40 08/22/18 16:00 Mechanical Ventilator Mechanical Ventilator 08/22/18 15:47 81 20 40 08/22/18 13:30 78 19 40 08/22/18 12:00 84 08/22/18 12:00 40 08/22/18 12:00 Mechanical Ventilator Mechanical Ventilator 08/22/18 11:48 98.4 86 20 123/51 (75) 99 08/22/18 11:30 79 18 40 Intake and Output 08/22/18 08/23/18 19:00 07:00 Intake Total 770 ml 480 ml Output Total 2550 ml 30 ml Balance -1780 ml 450 ml Free Water 290 ml Tube Feeding 480 ml 480 ml Stool Total 50 ml 30 ml Hemodialysis UF 2500 ml # Bowel Movements 3 3 Laboratory Tests 08/22/18 14:40: Sodium Level 134L, Potassium Level 3.5, Chloride Level 97L, Carbon Dioxide Level 27, Anion Gap 10, Blood Urea Nitrogen 43H, Creatinine 3.0H, Estimat Glomerular Filtration Rate , Glucose Level 135H, Calcium Level 9.0, Total Bilirubin 0.3, Aspartate Amino Transf (AST/SGOT) 27, Alanine Aminotransferase ( ALT/SGPT) 9L, Alkaline Phosphatase 201H, Total Protein 7.6, Albumin 1.6L, Globulin 6.0, Albumin/Globulin Ratio 0.3L 08/22/18 17:15: Sodium Level 136, Potassium Level 3.2L, Chloride Level 98, Carbon Dioxide Level 29, Anion Gap 9, Blood Urea Nitrogen 16, Creatinine 1.4#H, Estimat Glomerular Filtration Rate , Glucose Level 114H, Calcium Level 8.8, White Blood Count 10.0 , Red Blood Count 3.35L, Hemoglobin 10.1L, Hematocrit 32.2L, Mean Corpuscular Volume 96, Mean Corpuscular Hemoglobin 30.2, Mean Corpuscular Hemoglobin Concent 31.4L, Red Cell Distribution Width 18.8H, Platelet Count 450, Mean Platelet Volume 5.7L, Neutrophils (%) (Auto) 82.8H, Lymphocytes (%) (Auto) 6.4L , Monocytes (%) (Auto) 8.0, Eosinophils (%) (Auto) 1.6, Basophils (%) (Auto) 1.2 08/23/18 03:30: Sodium Level 135L, Potassium Level 3.3L, Chloride Level 98, Carbon Dioxide Level 31, Anion Gap 6, Blood Urea Nitrogen 27H, Creatinine 2.0H, Estimat Glomerular Filtration Rate , Glucose Level 127H, Calcium Level 8.9, Total Bilirubin 0.3, Aspartate Amino Transf (AST/SGOT) 31, Alanine Aminotransferase ( ALT/SGPT) 11L, Alkaline Phosphatase 212H, Total Protein 7.4, Albumin 1.6L, Globulin 5.8, Albumin/Globulin Ratio 0.3L, White Blood Count 9.2, Red Blood Count 3.09L, Hemoglobin 9.3L, Hematocrit 29.8L, Mean Corpuscular Volume 96, Mean Corpuscular Hemoglobin 30.2, Mean Corpuscular Hemoglobin Concent 31.3L, Red Cell Distribution Width 19.0H, Platelet Count 430, Mean Platelet Volume 5.8L , Neutrophils (%) (Auto) 81.9H, Lymphocytes (%) (Auto) 4.8L, Monocytes (%) (Auto ) 10.2H, Eosinophils (%) (Auto) 1.4, Basophils (%) (Auto) 1.7 Height (Feet): 5 Height (Inches): 2.00 Weight (Pounds): 110 Objective On vent. Trach clean. Cv IRR/IRR Lungs B ronchi. Abd SNT. BS + New PEG. E Rt. foot diabetic ulcers Chase He MD Aug 23, 2018 11:00
--- NOTE | 2018-08-23 11:22 | NUR ---
NURSE NOTES: Called and spoke with Guerda from [facility]. She told me that evaluation advisor nurse will call back for confirmation. Awaiting for call back.
--- NOTE | 2018-08-23 11:45 | Cardiology Progress Note ---
Assessment/Plan Assessment/Plan 1. Hypotension, possibly sepsis versus volume. 2. Paroxysmal episodes of atrial fibrillation history. 3. Bradycardia secondary to medications, amiodarone possibly. 4. Diabetes mellitus. 5. End-stage renal disease, on hemodialysis. 6. Lung collapse. 7. Respiratory failure, status post intubation. 8. Dysphagia. 9. History of dementia. 10. Pulm htn 11. Pleural effusion 12. cardaic arrest 13. chest wall pain post cpr mostly in sinus now stool ob neg x2 amiod bid unitl aug 30 then 200 mg daily off labetalol for now if needed hydralazine to be used vent support s/p trach peg done tele reviewed again sinus short atirl tachy on elequis 2.5 mg bid for stroke prevention cr up little Subjective ROS Limited/Unobtainable: Yes Subjective on the vent, sob , soreness aroudn the trach , Objective Last 24 Hour Vital Signs Date Time Temp Pulse Resp B/P (MAP) Pulse Ox O2 Delivery O2 Flow Rate FiO2 08/23/18 10:39 68 15 40 08/23/18 08:42 75 16 40 08/23/18 08:32 136/53 08/23/18 08:00 97.4 76 18 136/53 (80) 100 08/23/18 08:00 40 08/23/18 08:00 Mechanical Ventilator Mechanical Ventilator 08/23/18 08:00 81 08/23/18 07:09 71 15 40 08/23/18 05:10 79 21 40 08/23/18 04:00 76 08/23/18 04:00 Mechanical Ventilator Mechanical Ventilator 08/23/18 04:00 40 08/23/18 04:00 97.7 72 21 139/81 (100) 100 08/23/18 02:32 67 21 40 08/23/18 01:12 79 21 40 08/23/18 00:00 80 08/23/18 00:00 98.0 71 21 123/55 (77) 99 08/23/18 00:00 Mechanical Ventilator Mechanical Ventilator 08/23/18 00:00 40 08/22/18 23:30 78 15 40 08/22/18 21:08 82 16 40 08/22/18 21:00 115/52 08/22/18 20:00 97.6 73 21 118/52 (74) 99 08/22/18 20:00 Mechanical Ventilator Mechanical Ventilator 08/22/18 20:00 40 08/22/18 20:00 82 08/22/18 19:02 85 20 40 08/22/18 17:20 82 19 40 08/22/18 16:00 98.6 89 21 113/21 (51) 99 08/22/18 16:00 92 08/22/18 16:00 40 18 16:00 Mechanical Ventilator Mechanical Ventilator 08/22/18 15:47 81 20 40 08/22/18 13:30 78 19 40 08/22/18 12:00 84 08/22/18 12:00 40 08/22/18 12:00 Mechanical Ventilator Mechanical Ventilator 08/22/18 11:48 98.4 86 20 123/51 (75) 99 General Appearance: no apparent distress, on vent, patient on isolation Intake and Output 08/22/18 08/23/18 18:59 06:59 Intake Total 770 ml 480 ml Output Total 2550 ml 30 ml Balance -1780 ml 450 ml Free Water 290 ml Tube Feeding 480 ml 480 ml Stool Total 50 ml 30 ml Hemodialysis UF 2500 ml # Bowel Movements 3 3 Laboratory Tests Test 08/22/18 14:40 08/22/18 17:15 08/23/18 03:30 Sodium Level 134 MMOL/L (136-145) L 136 MMOL/L (136-145) 135 MMOL/L (136-145) L Potassium Level 3.5 MMOL/L (3.5-5.1) 3.2 MMOL/L (3.5-5.1) L 3.3 MMOL/L (3.5-5.1) L Chloride Level 97 MMOL/L (98-107) L 98 MMOL/L (98-107) 98 MMOL/L (98-107) Carbon Dioxide Level 27 MMOL/L (21-32) 29 MMOL/L (21-32) 31 MMOL/L (21-32) Anion Gap 10 mmol/L (5-15) 9 mmol/L (5-15) 6 mmol/L (5-15) Blood Urea Nitrogen 43 mg/dL (7-18) H 16 mg/dL (7-18) 27 mg/dL (7-18) H Creatinine 3.0 MG/DL (0.55-1.30) H 1.4 MG/DL (0.55-1.30) #H 2.0 MG/DL (0.55-1.30) H Estimat Glomerular Filtration Rate mL/min (>60) mL/min (>60) mL/min (>60) Glucose Level 135 MG/DL (74-106) H 114 MG/DL (74-106) H 127 MG/DL (74-106) H Calcium Level 9.0 MG/DL (8.5-10.1) 8.8 MG/DL (8.5-10.1) 8.9 MG/DL (8.5-10.1) Total Bilirubin 0.3 MG/DL (0.2-1.0) 0.3 MG/DL (0.2-1.0) Aspartate Amino Transf (AST/SGOT) 27 U/L (15-37) 31 U/L (15-37) Alanine Aminotransferase (ALT/SGPT) 9 U/L (12-78) L 11 U/L (12-78) L Alkaline Phosphatase 201 U/L (46-116) H 212 U/L (46-116) H Total Protein 7.6 G/DL (6.4-8.2) 7.4 G/DL (6.4-8.2) Albumin 1.6 G/DL (3.4-5.0) L 1.6 G/DL (3.4-5.0) L Globulin 6.0 g/dL 5.8 g/dL Albumin/Globulin Ratio 0.3 (1.0-2.7) L 0.3 (1.0-2.7) L White Blood Count 10.0 K/UL (4.8-10.8) 9.2 K/UL (4.8-10.8) Red Blood Count 3.35 M/UL (4.20-5.40) L 3.09 M/UL (4.20-5.40) L Hemoglobin 10.1 G/DL (12.0-16.0) L 9.3 G/DL (12.0-16.0) L Hematocrit 32.2 % (37.0-47.0) L 29.8 % (37.0-47.0) L Mean Corpuscular Volume 96 FL (80-99) 96 FL (80-99) Mean Corpuscular Hemoglobin 30.2 PG (27.0-31.0) 30.2 PG (27.0-31.0) Mean Corpuscular Hemoglobin Concent 31.4 G/DL (32.0-36.0) L 31.3 G/DL (32.0-36.0) L Red Cell Distribution Width 18.8 % (11.6-14.8) H 19.0 % (11.6-14.8) H Platelet Count 450 K/UL (150-450) 430 K/UL (150-450) Mean Platelet Volume 5.7 FL (6.5-10.1) L 5.8 FL (6.5-10.1) L Neutrophils (%) (Auto) 82.8 % (45.0-75.0) H 81.9 % (45.0-75.0) H Lymphocytes (%) (Auto) 6.4 % (20.0-45.0) L 4.8 % (20.0-45.0) L Monocytes (%) (Auto) 8.0 % (1.0-10.0) 10.2 % (1.0-10.0) H Eosinophils (%) (Auto) 1.6 % (0.0-3.0) 1.4 % (0.0-3.0) Basophils (%) (Auto) 1.2 % (0.0-2.0) 1.7 % (0.0-2.0) Angelo Butler MD Aug 23, 2018 11:45
[2018-08-23] MEDS: Ocean Nasal Spray 45ml NASAL PRN (11:49)
[2018-08-23 12:00] VITALS: BP 97/64
[2018-08-23] MEDS ORDERED: NS 275ml ONE (13:25)
--- NOTE | 2018-08-23 15:29 | Pulmonology Progress Note ---
Assessment/Plan Assessment/Plan Pulmonary Progress Note Assessment/Plan Assessment/Plan IMPRESSION: 1. Hypotension. Resolved. 2. Sepsis. 3. Atrial fibrillation. 4. Bradycardia. 5. Diabetes mellitus. 6. End-stage renal disease on dialysis. 7. Left lung collapse. Resolved 8. Respiratory failure. now status post tracheostomy 9. Dysphagia. 10. Dementia. 11. Anemia 12. Pneumonia DISCUSSION: 1. Continue medications. 2. CXR improved 3. Status post tracheostomy 4. S/p G-tube Subjective Interval Events: None reported Constitutional: Reports: no symptoms HEENT: Repors: no symptoms Respiratory: Reports: no symptoms Cardiovascular: Reports: no symptoms Gastrointestinal/Abdominal: Reports: no symptoms Genitourinary: Reports: no symptoms Neurologic: Reports: no symptoms Psychiatric: Reports: no symptoms Allergies: Coded Allergies: No Known Allergies (Unverified , 07/25/18) Objective Vital Signs Noted General Appearance: no acute distress HEENT: normocephalic, status post trach Respiratory/Chest: chest wall non-tender, decreased breath sounds Cardiovascular: normal peripheral pulses, normal rate Abdomen: normal bowel sounds, soft, non tender Laboratory Tests 08/20/18 17:20: White Blood Count 10.0, Red Blood Count 2.86L, Hemoglobin 8.2L, Hematocrit 27.5L , Mean Corpuscular Volume 96, Mean Corpuscular Hemoglobin 28.8, Mean Corpuscular Hemoglobin Concent 29.9L, Red Cell Distribution Width 18.8H, Platelet Count 416, Mean Platelet Volume 5.9L, Neutrophils (%) (Auto) 81.3H, Lymphocytes (%) (Auto) 7.0L, Monocytes (%) (Auto) 9.3, Eosinophils (%) (Auto) 1.4, Basophils (%) (Auto) 1.0, Sodium Level 138, Potassium Level 3.2L, Chloride Level 101, Carbon Dioxide Level 29, Anion Gap 8, Blood Urea Nitrogen 25H, Creatinine 2.4H, Estimat Glomerular Filtration Rate , Glucose Level 127H, Calcium Level 8.7, Total Bilirubin 0.3, Aspartate Amino Transf (AST/SGOT) 16, Alanine Aminotransferase (ALT/SGPT) 8L, Alkaline Phosphatase 177H, Total Protein 5.9L, Albumin 1.5L, Globulin 4.4, Albumin/Globulin Ratio 0.3L Current Medications Medications (Trade) Dose Ordered Sig/Renetta Route PRN Reason Start Time Stop Time Status Last Admin Dose Admin Acetaminophen (Tylenol) 650 mg Q6H PRN GT Mild Pain/Temp > 100.5 08/19/18 16:00 09/18/18 15:59 08/20/18 18:41 Albuterol/ Ipratropium (Albuterol/ Ipratropium) 3 ml Q6H PRN HHN Shortness of Breath 08/16/18 19:15 08/21/18 19:14 08/19/18 10:27 Amiodarone HCl (Cordarone) 200 mg EVERY 12 HOURS NG 08/06/18 21:00 09/03/18 13:59 08/20/18 20:37 Apixaban (Eliquis) 2.5 mg BID NG 08/19/18 18:00 09/18/18 08:59 08/20/18 17:26 Artificial Tears (Akwa-Tears) 1 drop Q4H PRN BOTH EYES Dry Eyes 08/20/18 18:30 09/19/18 18:29 Chlorhexidine Gluconate (Rylie-Hex 2%) 1 applic DAILY@2000 TOPIC 07/26/18 20:00 08/25/18 19:59 08/20/18 19:16 Collagenase (Santyl) 1 applic Q12HR TOPIC 08/10/18 21:00 09/03/18 20:59 08/20/18 20:37 Epoetin Paul (Procrit (for ESRD on dialysis)) 10,000 units WED-WED-WED SUBQ 07/27/18 21:00 08/26/18 20:59 08/19/18 20:29 Minoxidil (Loniten) 5 mg Q12HR NG 07/31/18 21:00 08/30/18 20:59 08/20/18 20:37 Pantoprazole (Protonix) 40 mg Q12HR IVP 07/25/18 21:00 08/25/18 08:59 08/20/18 20:37 Sodium Chloride ([place] Nasal [place]) 1 spray Q4H PRN NASAL dry nose 08/20/18 18:30 09/19/18 18:29 Vitamin D (Vitamin D) 1,000 intlu DAILY GT 08/07/18 10:00 09/06/18 09:59 08/20/18 08:20 Subjective ROS Limited/Unobtainable: No Allergies: Coded Allergies: No Known Allergies (Unverified , 07/25/18) Objective Last 24 Hour Vital Signs Date Time Temp Pulse Resp B/P (MAP) Pulse Ox O2 Delivery O2 Flow Rate FiO2 08/23/18 15:23 76 22 40 08/23/18 12:35 63 20 40 08/23/18 12:00 75 08/23/18 12:00 98.5 73 19 97/64 (75) 100 08/23/18 12:00 40 08/23/18 12:00 Mechanical Ventilator Mechanical Ventilator 08/23/18 10:39 68 15 40 08/23/18 08:42 75 16 40 08/23/18 08:32 136/53 08/23/18 08:00 97.4 76 18 136/53 (80) 100 08/23/18 08:00 40 08/23/18 08:00 Mechanical Ventilator Mechanical Ventilator 08/23/18 08:00 81 08/23/18 07:09 71 15 40 08/23/18 05:10 79 21 40 08/23/18 04:00 76 08/23/18 04:00 Mechanical Ventilator Mechanical Ventilator 08/23/18 04:00 40 08/23/18 04:00 97.7 72 21 139/81 (100) 100 08/23/18 02:32 67 21 40 08/23/18 01:12 79 21 40 08/23/18 00:00 80 08/23/18 00:00 98.0 71 21 123/55 (77) 99 08/23/18 00:00 Mechanical Ventilator Mechanical Ventilator 08/23/18 00:00 40 08/22/18 23:30 78 15 40 08/22/18 21:08 82 16 40 08/22/18 21:00 115/52 08/22/18 20:00 97.6 73 21 118/52 (74) 99 08/22/18 20:00 Mechanical Ventilator Mechanical Ventilator 08/22/18 20:00 40 08/22/18 20:00 82 08/22/18 19:02 85 20 40 08/22/18 17:20 82 19 40 08/22/18 16:00 98.6 89 21 113/21 (51) 99 08/22/18 16:00 92 08/22/18 16:00 40 08/22/18 16:00 Mechanical Ventilator Mechanical Ventilator 08/22/18 15:47 81 20 40 Intake and Output 08/22/18 08/23/18 18:59 06:59 Intake Total 770 ml 480 ml Output Total 2550 ml 30 ml Balance -1780 ml 450 ml Free Water 290 ml Tube Feeding 480 ml 480 ml Stool Total 50 ml 30 ml Hemodialysis UF 2500 ml # Bowel Movements 3 3 Laboratory Tests 08/22/18 17:15: White Blood Count 10.0, Red Blood Count 3.35L, Hemoglobin 10.1L, Hematocrit 32.2L, Mean Corpuscular Volume 96, Mean Corpuscular Hemoglobin 30.2, Mean Corpuscular Hemoglobin Concent 31.4L, Red Cell Distribution Width 18.8H, Platelet Count 450, Mean Platelet Volume 5.7L, Neutrophils (%) (Auto) 82.8H, Lymphocytes (%) (Auto) 6.4L, Monocytes (%) (Auto) 8.0, Eosinophils (%) (Auto) 1.6, Basophils (%) (Auto) 1.2, Sodium Level 136, Potassium Level 3.2L, Chloride Level 98, Carbon Dioxide Level 29, Anion Gap 9, Blood Urea Nitrogen 16, Creatinine 1.4#H, Estimat Glomerular Filtration Rate , Glucose Level 114H, Calcium Level 8.8 08/23/18 03:30: White Blood Count 9.2, Red Blood Count 3.09L, Hemoglobin 9.3L, Hematocrit 29.8L , Mean Corpuscular Volume 96, Mean Corpuscular Hemoglobin 30.2, Mean Corpuscular Hemoglobin Concent 31.3L, Red Cell Distribution Width 19.0H, Platelet Count 430, Mean Platelet Volume 5.8L, Neutrophils (%) (Auto) 81.9H, Lymphocytes (%) (Auto) 4.8L, Monocytes (%) (Auto) 10.2H, Eosinophils (%) (Auto) 1.4, Basophils (%) (Auto) 1.7, Sodium Level 135L, Potassium Level 3.3L, Chloride Level 98, Carbon Dioxide Level 31, Anion Gap 6, Blood Urea Nitrogen 27H , Creatinine 2.0H, Estimat Glomerular Filtration Rate , Glucose Level 127H, Calcium Level 8.9, Total Bilirubin 0.3, Aspartate Amino Transf (AST/SGOT) 31, Alanine Aminotransferase (ALT/SGPT) 11L, Alkaline Phosphatase 212H, Total Protein 7.4, Albumin 1.6L, Globulin 5.8, Albumin/Globulin Ratio 0.3L Current Medications Medications (Trade) Dose Ordered Sig/Renetta Route PRN Reason Start Time Stop Time Status Last Admin Dose Admin Acetaminophen (Tylenol) 650 mg Q6H PRN GT Mild Pain/Temp > 100.5 08/21/18 16:00 09/18/18 15:59 08/23/18 11:50 Amiodarone HCl (Cordarone) 200 mg EVERY 12 HOURS NG 08/21/18 21:00 09/03/18 13:59 08/23/18 08:32 Apixaban (Eliquis) 2.5 mg BID NG 08/21/18 18:00 09/18/18 08:59 08/23/18 08:32 Artificial Tears (Akwa-Tears) 1 drop Q4H PRN BOTH EYES Dry Eyes 08/21/18 15:30 09/19/18 15:29 Chlorhexidine Gluconate (Rylie-Hex 2%) 1 applic DAILY@1999 TOPIC 08/21/18 20:00 08/25/18 19:59 08/22/18 20:06 Collagenase (Santyl) 1 applic Q12HR TOPIC 08/21/18 21:00 09/03/18 20:59 08/23/18 08:33 Epoetin Paul (Procrit (for ESRD on dialysis)) 10,000 units WED-WED-WED SUBQ 08/22/18 21:00 08/26/18 20:59 08/22/18 21:04 Lansoprazole (Prevacid) 30 mg Q12HR ORAL 08/22/18 21:00 09/21/18 20:59 08/23/18 08:30 Minoxidil (Loniten) 5 mg Q12HR NG 08/21/18 21:00 08/30/18 20:59 08/23/18 08:32 Sodium Chloride 1,000 ml @ 500 mls/hr Q2H PRN IVLG sbp<90 during hd 08/23/18 11:00 08/24/18 23:59 Sodium Chloride (Toyei Nasal [place]) 1 spray Q4H PRN NASAL dry nose 08/21/18 14:30 09/19/18 18:29 08/23/18 11:49 Vitamin D (Vitamin D) 1,000 intlu DAILY GT 08/22/18 09:00 09/06/18 09:59 08/23/18 08:32 Negro Patel MD Aug 23, 2018 15:29
[2018-08-23 16:00] VITALS: BP 113/28
--- NOTE | 2018-08-23 19:14 | NUR ---
HAND-OFF: Report given to BALDO Herron. Stable condition.
--- NOTE | 2018-08-23 19:30 | NUR ---
NURSE NOTES: Received Pt is resting on the bed and awake and forgetful and calm. Dressing is clean and dry on Rt. upper arm mid line area. Pt has multiple wounds and dressing is clean and dry. On Tele monitor. Lt upper arm AV shunt present of bruit and thrills. Trach to Vent dependent setting with AC; 8, TV: 450, P; 5, FiO2 40% with SaO2 100% noted. Given oral and tracheal suction. No sign of acute distress noted. On P 200 mattress. Noted swelling on both arms. On rectal tube and in placed and patent. Changed position. Placed fall precaution. Will continue to care plan. Addendum: 08/23/18 at 2234 by LIOR HASKINS RN RN on G-tube feeding as tolerated and no residual noted. Addendum: 08/23/18 at 2331 by LIOR HASKINS RN RN tomorrow scheduled HD. Called HD center by previous nursed.
[2018-08-23 20:00] VITALS: BP 112/60
[2018-08-23] MEDS: Dyna-Hex 2% Top Sol 2oz TOPIC SCH (20:06)
[2018-08-24] VITALS: BP 139/90
[2018-08-24 04:00] VITALS: BP 117/50
--- NOTE | 2018-08-24 07:05 | NUR ---
RESPIRATORY NOTE: Patient received mechanically ventilated on PB 840 with current ordered vent settings. Patient has trach size 8.0 Shiley cuffed that that is secured with trach tie and guard. Trach area is clean and patent. There is bilateral coarse breath sounds present upon auscultation. Small amount of thick clear/white secretions were suctioned via inline suction system without incident. Vent alarms are functional and audible. There is an ambu bag available at the bedside and the vent is connected to a red outlet. There is no respiratory distress or shortness of breath noted at this time. Patient appears comfortable and stable. Will continue to monitor.
--- NOTE | 2018-08-24 07:45 | NUR ---
HAND-OFF: Report given to BALDO Tapia. Pt is resting on the bed and no sign of acuter distress noted. Tolerated well with current Vent setting.
[2018-08-24 08:00] VITALS: BP 120/56
[2018-08-24] MEDS: Minoxidil 2.5mg tab NG SCH ×2 (09:20→20:29)
[2018-08-24] MEDS: Vitamin D 1000 IU Tab GT SCH (09:20)
[2018-08-24] MEDS: Eliquis 2.5mg tablet NG SCH ×2 (09:20→18:00)
[2018-08-24] MEDS: Amiodarone 200mg tab NG SCH ×2 (09:20→20:28)
--- NOTE | 2018-08-24 10:34 | NUR ---
CASE MANAGEMENT: REVIEW SI: CELLULITIS OF RIGHT LEG . OSTEOMYELITIS . ESRD ON HD TRACHEOSTOMY 08/15 PEG PLACEMENT 08/17 T 98.0 HR 77 RR 18 BP 117/50 SAT 100% MECH VENT FIO2 40 H/H 9.3/29.8 NA 135 K 3.3 BUN 27 CR 2.0 IS: PROCRIT SQ MWF ELIQUIS NG BID AMIODARONE GT Q12HR GT FEEDING NEPRO @ 40ML/HR ICU STATUS DCP: PATIENT IS FROM [facility]
--- NOTE | 2018-08-24 10:38 | NUR ---
CASE MANAGEMENT: DCPNOTE PER ORDER PATIENT WAS REFERRED TO [facility] [phone] PH / [phone] FAX CM WILL FOLLOW UP
--- NOTE | 2018-08-24 10:53 | Infectious Diseases Prog Note ---
"Assessment/Plan Assessment/Plan antibiotics : none A 1. 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 shock resolved 3. leucocytosis 4. respiratory failure s/p tracheostomy 5. renal failure 6. 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 pleural effusion P 1. observe off antibiotics Subjective ROS Limited/Unobtainable: Yes Allergies: Coded Allergies: No Known Allergies (Unverified , 07/25/18) Objective Vital Signs Last 24 Hour Vital Signs Date Time Temp Pulse Resp B/P (MAP) Pulse Ox O2 Delivery O2 Flow Rate FiO2 08/24/18 09:20 117/50 08/24/18 08:45 71 17 40 08/24/18 08:16 72 08/24/18 08:00 98.0 77 18 120/56 (77) 100 08/24/18 08:00 40 08/24/18 08:00 Mechanical Ventilator Mechanical Ventilator 08/24/18 06:57 77 15 40 08/24/18 05:07 72 16 40 08/24/18 04:00 97.2 67 18 117/50 (72) 100 08/24/18 04:00 69 08/24/18 04:00 Mechanical Ventilator Mechanical Ventilator 08/24/18 04:00 40 08/24/18 02:44 69 14 40 08/24/18 00:49 70 15 40 08/24/18 00:00 Mechanical Ventilator Mechanical Ventilator 08/24/18 00:00 40 08/24/18 00:00 97.5 72 18 139/90 (106) 100 08/24/18 00:00 63 08/23/18 22:45 71 18 40 08/23/18 21:17 74 16 40 08/23/18 21:00 110/60 08/23/18 20:00 40 08/23/18 20:00 97.2 73 18 112/60 (77) 100 08/23/18 20:00 Mechanical Ventilator Mechanical Ventilator 08/23/18 20:00 72 08/23/18 18:49 77 12 40 08/23/18 17:09 88 15 40 08/23/18 16:00 71 08/23/18 16:00 98.4 71 18 113/28 (56) 100 08/23/18 16:00 40 08/23/18 16:00 Mechanical Ventilator Mechanical Ventilator 08/23/18 15:23 76 22 40 08/23/18 12:35 63 20 40 08/23/18 12:00 75 08/23/18 12:00 98.5 73 19 97/64 (75) 100 08/23/18 12:00 40 08/23/18 12:00 Mechanical Ventilator Mechanical Ventilator Height (Feet): 5 Height (Inches): 2.00 Weight (Pounds): 111 HEENT: status post trach Respiratory/Chest: lungs clear Cardiovascular: normal rate, regular rhythm, no gallop/murmur Abdomen: soft, non tender, other - GT Extremities: no edema, other - right arm PICC Current Medications Medications (Trade) Dose Ordered Sig/Renetta Route PRN Reason Start Time Stop Time Status Last Admin Dose Admin Acetaminophen (Tylenol) 650 mg Q6H PRN GT Mild Pain/Temp > 100.5 08/21/18 16:00 09/18/18 15:59 08/23/18 17:43 Amiodarone HCl (Cordarone) 200 mg EVERY 12 HOURS NG 08/21/18 21:00 09/03/18 13:59 08/24/18 09:20 Apixaban (Eliquis) 2.5 mg BID NG 08/21/18 18:00 09/18/18 08:59 08/24/18 09:20 Artificial Tears (Akwa-Tears) 1 drop Q4H PRN BOTH EYES Dry Eyes 08/21/18 15:30 09/19/18 15:29 Chlorhexidine Gluconate (Rylie-Hex 2%) 1 applic DAILY@1999 TOPIC 08/21/18 20:00 08/25/18 19:59 08/23/18 20:06 Collagenase (Santyl) 1 applic Q12HR TOPIC 08/21/18 21:00 09/03/18 20:59 08/24/18 09:20 Epoetin Paul (Procrit (for ESRD on dialysis)) 10,000 units WED-WED-WED SUBQ 08/22/18 21:00 08/26/18 20:59 08/22/18 21:04 Lansoprazole (Prevacid) 30 mg Q12HR ORAL 08/22/18 21:00 09/21/18 20:59 08/24/18 09:20 Minoxidil (Loniten) 5 mg Q12HR NG 08/21/18 21:00 08/30/18 20:59 08/24/18 09:20 Sodium Chloride 1,000 ml @ 500 mls/hr Q2H PRN IVLG sbp<90 during hd 08/23/18 11:00 08/24/18 23:59 Sodium Chloride ([place] Nasal [place]) 1 spray Q4H PRN NASAL dry nose 08/21/18 14:30 09/19/18 18:29 08/23/18 11:49 Vitamin D (Vitamin D) 1,000 intlu DAILY GT 08/22/18 09:00 09/06/18 09:59 08/24/18 09:20 Omid Morfin MD Aug 24, 2018 10:53"
--- NOTE | 2018-08-24 11:54 | Nephrology Progress Note ---
Assessment/Plan Assessment Seee below Plan MOF resolving. ESRD HD q MWF Anemia of CKD , DARRYN high dose. Transfuse PRN. A. 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 with LAE. LVEF 65% . On Eliquis. Post trach + PEG . Referred to [facility]. See orders. DW pt's son. Needs extensive Vascular W/U. Subjective Subjective No c/o. Objective Objective Last 24 Hour Vital Signs Date Time Temp Pulse Resp B/P (MAP) Pulse Ox O2 Delivery O2 Flow Rate FiO2 08/24/18 10:43 73 10 40 08/24/18 09:20 117/50 08/24/18 08:45 71 17 40 08/24/18 08:16 72 08/24/18 08:00 98.0 77 18 120/56 (77) 100 08/24/18 08:00 40 08/24/18 08:00 Mechanical Ventilator Mechanical Ventilator 08/24/18 06:57 77 15 40 08/24/18 05:07 72 16 40 08/24/18 04:00 97.2 67 18 117/50 (72) 100 08/24/18 04:00 69 08/24/18 04:00 Mechanical Ventilator Mechanical Ventilator 08/24/18 04:00 40 08/24/18 02:44 69 14 40 08/24/18 00:49 70 15 40 08/24/18 00:00 Mechanical Ventilator Mechanical Ventilator 08/24/18 00:00 40 08/24/18 00:00 97.5 72 18 139/90 (106) 100 08/24/18 00:00 63 08/23/18 22:45 71 18 40 08/23/18 21:17 74 16 40 08/23/18 21:00 110/60 08/23/18 20:00 40 08/23/18 20:00 97.2 73 18 112/60 (77) 100 08/23/18 20:00 Mechanical Ventilator Mechanical Ventilator 08/23/18 20:00 72 08/23/18 18:49 77 12 40 08/23/18 17:09 88 15 40 08/23/18 16:00 71 08/23/18 16:00 98.4 71 18 113/28 (56) 100 08/23/18 16:00 40 08/23/18 16:00 Mechanical Ventilator Mechanical Ventilator 08/23/18 15:23 76 22 40 08/23/18 12:35 63 20 40 08/23/18 12:00 75 08/23/18 12:00 98.5 73 19 97/64 (75) 100 08/23/18 12:00 40 08/23/18 12:00 Mechanical Ventilator Mechanical Ventilator Intake and Output 08/23/18 08/24/18 19:00 07:00 Intake Total 740 ml 480 ml Output Total 50 ml Balance 740 ml 430 ml Free Water 260 ml Tube Feeding 480 ml 480 ml Stool Total 50 ml # Voids 1 # Bowel Movements 63 3 Height (Feet): 5 Height (Inches): 2.00 Weight (Pounds): 111 Objective On vent. Trach clean. Cv IRR/IRR Lungs B ronchi. Abd SNT. BS + New PEG. E Rt. foot diabetic ulcers Chase He MD Aug 24, 2018 11:54
[2018-08-24 12:00] VITALS: BP 118/60
--- NOTE | 2018-08-24 13:14 | GI Progress Note ---
Assessment/Plan Problems: (1) Encounter for PEG (percutaneous endoscopic gastrostomy) ICD Codes: Z43.1 - Encounter for attention to gastrostomy SNOMED: 114454660, 217924148 (2) Severe malnutrition ICD Codes: E43 - Unspecified severe protein-calorie malnutrition SNOMED: 57529278 (3) Dehydration ICD Codes: E86.0 - Dehydration SNOMED: 62937556 Status: stable Status Narrative Discussed with Dr. Cox Assessment/Plan Assessment - Dysphagia - Resp failure - ESRD - Anemia - Status post PEG Recommendations 1. Abdominal binder. 2. Elevate the head of the bed at all times. 3. G-tube flush. 4. G-tube care. 5. tube feeding later today per RD to goal Monitor H&H, PRN transfusions PPI Electrolyte correction Follow-up labs The patient was seen and examined at bedside and all new and available data was reviewed in the patients chart. I agree with the above findings, impression and plan. (Patient seen earlier today. Signature stamp does not reflect patient encounter time.). - Oc Cox MD Subjective Subjective limited Objective Last 24 Hour Vital Signs Date Time Temp Pulse Resp B/P (MAP) Pulse Ox O2 Delivery O2 Flow Rate FiO2 08/24/18 13:01 68 08/24/18 12:47 74 16 40 08/24/18 10:43 73 10 40 08/24/18 09:20 117/50 08/24/18 08:45 71 17 40 08/24/18 08:16 72 08/24/18 08:00 98.0 77 18 120/56 (77) 100 08/24/18 08:00 40 08/24/18 08:00 Mechanical Ventilator Mechanical Ventilator 08/24/18 06:57 77 15 40 08/24/18 05:07 72 16 40 08/24/18 04:00 97.2 67 18 117/50 (72) 100 08/24/18 04:00 69 08/24/18 04:00 Mechanical Ventilator Mechanical Ventilator 08/24/18 04:00 40 08/24/18 02:44 69 14 40 08/24/18 00:49 70 15 40 08/24/18 00:00 Mechanical Ventilator Mechanical Ventilator 08/24/18 00:00 40 08/24/18 00:00 97.5 72 18 139/90 (106) 100 08/24/18 00:00 63 08/23/18 22:45 71 18 40 08/23/18 21:17 74 16 40 08/23/18 21:00 110/60 08/23/18 20:00 40 08/23/18 20:00 97.2 73 18 112/60 (77) 100 08/23/18 20:00 Mechanical Ventilator Mechanical Ventilator 08/23/18 20:00 72 08/23/18 18:49 77 12 40 08/23/18 17:09 88 15 40 08/23/18 16:00 71 08/23/18 16:00 98.4 71 18 113/28 (56) 100 08/23/18 16:00 40 08/23/18 16:00 Mechanical Ventilator Mechanical Ventilator 08/23/18 15:23 76 22 40 Intake and Output 08/23/18 08/24/18 19:00 07:00 Intake Total 740 ml 480 ml Output Total 50 ml Balance 740 ml 430 ml Free Water 260 ml Tube Feeding 480 ml 480 ml Stool Total 50 ml # Voids 1 # Bowel Movements 63 3 Height (Feet): 5 Height (Inches): 2.00 Weight (Pounds): 111 General Appearance: no apparent distress Cardiovascular: normal rate Respiratory/Chest: no respiratory distress, other - Mechanical vent Abdominal Exam: normal bowel sounds, non tender, soft, GT site - Clean dry and intact Extremities: non-tender Rita Quintanilla NP Aug 24, 2018 13:14
--- NOTE | 2018-08-24 15:35 | Pulmonology Progress Note ---
Assessment/Plan Assessment/Plan IMPRESSION: 1. Hypotension. Resolved. 2. Sepsis. 3. Atrial fibrillation. 4. Bradycardia. 5. Diabetes mellitus. 6. End-stage renal disease on dialysis. 7. Left lung collapse. Resolved 8. Respiratory failure. now status post tracheostomy 9. Dysphagia. 10. Dementia. 11. Anemia 12. Pneumonia DISCUSSION: 1. Continue medications. 2. CXR improved 3. Status post tracheostomy 4. S/p G-tube Andres Allan M.D. Subjective Interval Events: Now in [place] Constitutional: Reports: no symptoms HEENT: Repors: no symptoms Respiratory: Reports: no symptoms Cardiovascular: Reports: no symptoms Gastrointestinal/Abdominal: Reports: no symptoms Genitourinary: Reports: no symptoms Neurologic: Reports: no symptoms Psychiatric: Reports: no symptoms Allergies: Coded Allergies: No Known Allergies (Unverified , 07/25/18) Objective Last 24 Hour Vital Signs Date Time Temp Pulse Resp B/P (MAP) Pulse Ox O2 Delivery O2 Flow Rate FiO2 08/24/18 13:01 68 08/24/18 12:47 74 16 40 08/24/18 10:43 73 10 40 08/24/18 09:20 117/50 08/24/18 08:45 71 17 40 08/24/18 08:16 72 08/24/18 08:00 98.0 77 18 120/56 (77) 100 08/24/18 08:00 40 08/24/18 08:00 Mechanical Ventilator Mechanical Ventilator 08/24/18 06:57 77 15 40 08/24/18 05:07 72 16 40 08/24/18 04:00 97.2 67 18 117/50 (72) 100 08/24/18 04:00 69 08/24/18 04:00 Mechanical Ventilator Mechanical Ventilator 08/24/18 04:00 40 08/24/18 02:44 69 14 40 08/24/18 00:49 70 15 40 08/24/18 00:00 Mechanical Ventilator Mechanical Ventilator 08/24/18 00:00 40 08/24/18 00:00 97.5 72 18 139/90 (106) 100 08/24/18 00:00 63 08/23/18 22:45 71 18 40 08/23/18 21:17 74 16 40 08/23/18 21:00 110/60 08/23/18 20:00 40 08/23/18 20:00 97.2 73 18 112/60 (77) 100 08/23/18 20:00 Mechanical Ventilator Mechanical Ventilator 08/23/18 20:00 72 08/23/18 18:49 77 12 40 08/23/18 17:09 88 15 40 08/23/18 16:00 71 08/23/18 16:00 98.4 71 18 113/28 (56) 100 08/23/18 16:00 40 08/23/18 16:00 Mechanical Ventilator Mechanical Ventilator Intake and Output 08/23/18 08/24/18 19:00 07:00 Intake Total 740 ml 480 ml Output Total 50 ml Balance 740 ml 430 ml Free Water 260 ml Tube Feeding 480 ml 480 ml Stool Total 50 ml # Voids 1 # Bowel Movements 63 3 General Appearance: no acute distress HEENT: normocephalic Respiratory/Chest: chest wall non-tender, lungs clear Cardiovascular: normal peripheral pulses, normal rate Abdomen: normal bowel sounds, soft, non tender Current Medications Medications (Trade) Dose Ordered Sig/Renetta Route PRN Reason Start Time Stop Time Status Last Admin Dose Admin Acetaminophen (Tylenol) 650 mg Q6H PRN GT Mild Pain/Temp > 100.5 08/21/18 16:00 09/18/18 15:59 08/23/18 17:43 Amiodarone HCl (Cordarone) 200 mg EVERY 12 HOURS NG 08/21/18 21:00 09/03/18 13:59 08/24/18 09:20 Apixaban (Eliquis) 2.5 mg BID NG 08/21/18 18:00 09/18/18 08:59 08/24/18 09:20 Artificial Tears (Akwa-Tears) 1 drop Q4H PRN BOTH EYES Dry Eyes 08/21/18 15:30 09/19/18 15:29 Chlorhexidine Gluconate (Rylie-Hex 2%) 1 applic DAILY@1999 TOPIC 08/21/18 20:00 08/25/18 19:59 08/23/18 20:06 Collagenase (Santyl) 1 applic Q12HR TOPIC 08/21/18 21:00 09/03/18 20:59 08/24/18 09:20 Epoetin Paul (Procrit (for ESRD on dialysis)) 10,000 units WED- SUBQ 08/22/18 21:00 08/26/18 20:59 08/22/18 21:04 Lansoprazole (Prevacid) 30 mg Q12HR ORAL 08/22/18 21:00 09/21/18 20:59 08/24/18 09:20 Minoxidil (Loniten) 5 mg Q12HR NG 08/21/18 21:00 08/30/18 20:59 08/24/18 09:20 Sodium Chloride 1,000 ml @ 500 mls/hr Q2H PRN IVLG sbp<90 during hd 08/24/18 12:00 08/25/18 23:59 Sodium Chloride ([place] Nasal Hydro) 1 spray Q4H PRN NASAL dry nose 08/21/18 14:30 09/19/18 18:29 08/23/18 11:49 Vitamin D (Vitamin D) 1,000 intlu DAILY GT 08/22/18 09:00 09/06/18 09:59 08/24/18 09:20 Andres Allan MD Aug 24, 2018 15:35
[2018-08-24 16:00] VITALS: BP 131/52
--- NOTE | 2018-08-24 16:00 | NUR ---
NURSE NOTES: HD complete. 2.5 L out. VSS.
[2018-08-24] MEDS: Acetaminophen 650mg/20.3ml GT PRN (18:44)
--- NOTE | 2018-08-24 19:10 | NUR ---
HAND-OFF: Report given to BALDO Anton. VSS.
[2018-08-24] MEDS ORDERED: Zolpidem 5mg tab ORAL PRN (19:15)
--- NOTE | 2018-08-24 19:54 | NUR ---
RESPIRATORY NOTE: Pt was received stable on vent settings of AC 8, 450 VT, 35%, PEEP 5. Trach is a Shiley 8 and cuffed. Vent is plugged into red circuit and ambubag is present in the room. No distress noted. Will continue to monitor pt.
[2018-08-24 20:00] VITALS: BP 104/24
--- NOTE | 2018-08-24 20:00 | NUR ---
NURSE NOTES: Patient repositioned and pillows adjusted, BP 104/24, RR18, HR 73 SR. 98.1F, cool to touch. Spo2 99%. Patient is calm and content. NAD at this time. Call light within reach. Suctioned patient and provided oral care. Will continue to monitor.
[2018-08-24] MEDS: Dyna-Hex 2% Top Sol 2oz TOPIC SCH (20:28)
[2018-08-24] MEDS: Epogen (for ESRD on dialysis) SUBQ SCH (21:00)
[2018-08-25] VITALS: BP 89/26
--- NOTE | 2018-08-25 | NUR ---
NURSE NOTES: Repositioned and oral care provided. BP 89/26, HR 68 SR, SpO2 99%, RR 16, 98.7F. Patient awake and not under any acute distress. Rectal tube intact, patent.
[2018-08-25 04:00] VITALS: BP 91/22
--- NOTE | 2018-08-25 04:00 | NUR ---
NURSE NOTES: Patient cleaned, oral care given, reality reorientation, repositioned, no distress observed, Vitals remains stable, no fever, no complaints of any pain. Will continue to monitor.
[2018-08-25 05:19] LABS: BASOPHILS % (AUTO) 1.8 % (0.0-2.0); EOSINOPHILS % (AUTO) 1.3 % (0.0-3.0); HEMOGLOBIN 9.1 G/DL (12.0-16.0); LYMPHOCYTES % (AUTO) 5.4 % (20.0-45.0); MEAN CORPUSCULAR VOLUME 96 FL (80-99); MONOCYTES % (AUTO) 6.7 % (1.0-10.0); NEUTROPHILS % (AUTO) 84.7 % (45.0-75.0); PLATELET COUNT 365 K/UL (150-450); RED CELL DISTRIBUTION WIDTH 18.6 % (11.6-14.8); WHITE BLOOD COUNT 11.2 K/UL (4.8-10.8)
[2018-08-25 05:48] LABS: ANION GAP 10 mmol/L (5-15); BLOOD UREA NITROGEN 30 mg/dL (7-18); CALCIUM 8.9 MG/DL (8.5-10.1); CARBON DIOXIDE 27 MMOL/L (21-32); CHLORIDE 96 MMOL/L (98-107); CREATININE 1.9 MG/DL (0.55-1.30); POTASSIUM 3.7 MMOL/L (3.5-5.1); SODIUM 133 MMOL/L (136-145)
--- NOTE | 2018-08-25 06:00 | NUR ---
NURSE NOTES: NO ACUTE EVENTS OVERNIGHT, BLOOD PRESSURE REMAINED STABLE, NO FEVERS, SPO2 REMAINED ABOVE 98%, PATIENT DID WELL WITHOUT RESTRAINTS OVERNIGHT BUT NOW SEEMS TO BE DISCONNECTING TUBING RESULTING IN ALARMS SOUNDING OFF, PATIENT WAS WARNED NOT TO TOUCH TUBING AND EXPLAINED RATIONAL BEHIND IT, IF PATIENT CONTINUES TO REMOVE DEVICES THEN BILATERAL SOFT WRIST RESTRAINTS MAY HAVE TO BE INITIATED. WILL CHECK UP ON PATIENT BEFORE END OF SHIFT, ENDORSEMENT WILL BE GIVEN REGARDING THE MATTER. NEW FEEDING HUNG AND TUBING CHANGED. ADDED FOAM DRESSINGS ON BONY AREAS FOR SUPPORT. NO ACUTE DISTRESS AT THIS TIME AN NO PAIN PER FLACC SCORE RATING OF 0/10, WILL CONTINUE TO OBSERVE AND MONITOR PATIENTS PROGRESS.
--- NOTE | 2018-08-25 06:00 | NUR ---
NURSE NOTES: PATIENT CONTINUES TO REMAINS NON-COMPLIANT AFTER DISCUSSION REGARDING NOT REMOVING VENTILATOR DEVICES, PROVIDED TALK THERAPY, DISTRACTIONS AND OTHER DIVERSIONAL ACTIVITIES BUT STILL CONTINUED TO REMOVE DEVICES, RESORTED TO HAVING TO PLACE PATIENT ON BILATERAL SOFT WRIST RESTRAINTS FOR NO. NO SWELLING ON WRIST, PULSES NOTED AND WRIST SKIN IS INTACT PRIOR TO INITIATING RESTRAINTS. WILL CONTINUE TO OBSERVE PATIENT PROGRESS.
--- NOTE | 2018-08-25 07:00 | NUR ---
RESPIRATORY NOTE: Patient received on mechanical ventilator. Patient is trach with Shiley size 8, current settings are AC: 450, 8, 40%, +5. Patient has ambu bag bedside, all alarms are set and audible, spare trach bedside as well. Will continue to monitor patient.
--- NOTE | 2018-08-25 07:25 | NUR ---
Report received from BALDO Anton. Patient seen in semi-butler position with G-Tube feeding running at 40ml/Hr. On vent with previous setting. No acute respiratory distress present at this time. no S/Sx of pain present. Patient is alert, responsive. Rectal tube is place and is intact at this time. Midline to right upper arm is intact. Bed is in lowest position. Call light is within easy reach. Will continue to monitor.
[2018-08-25 08:00] VITALS: BP 121/49
--- NOTE | 2018-08-25 08:10 | NUR ---
NURSE NOTES: Called and paged Dr. He to verify the HD order for today. Pt. had HD yesterday.
--- NOTE | 2018-08-25 08:32 | NUR ---
NURSE NOTES:WOUND CARE FOLLOW-UP NOTES:Full thickness pressure injury involving entire buttocks and both ischial regions,presents as dark non-blanching erythema with induration at L buttock. Entire area measuring (L)11.5cm x (W)15cm with full thickness ulcer at sacral region (L)4cm x (W)3.5cm x(D)1.3cm,undermining 12-12 with tunneling 7-10 by 13cm at 10o'clock. Second smaller area L buttocks noted in close proximity to sacral ulcer, wound with 90%slough ,10% erythema ,fluctuant without exudate. Sheared area L ischium resolving-dry skin noted.Wound cleansed with Saline. Historical arched scar noted to L buttocks . Tx orders addressed with and confirmed with Md changing Tx to Silvasorb gel. Wound cleansed with Saline.Packing strip infused with Silvasorb gel loosely packed into wound .Cavilon Skin Barrier applied periwound and covered with Optifoam drsg . Tx.Plan:Discontinue Hydrogel . Cleanse sacral wound with Saline. Loosely pack wound with Plain packing strip infused with Silvasorb gel.Cavilon Skin Barrier Periwound .Cover with Optifoam drsg Every Other day and prn (confirmed with .) Air Fluidized mattress. Reposition at least every 2hours and prn . Off-load heels with pillow.
[2018-08-25] MEDS: Amiodarone 200mg tab NG SCH (08:58)
[2018-08-25] MEDS: Vitamin D 1000 IU Tab GT SCH (08:58)
[2018-08-25] MEDS: Eliquis 2.5mg tablet NG SCH (08:58)
[2018-08-25] MEDS: Minoxidil 2.5mg tab NG SCH (09:00)
--- NOTE | 2018-08-25 10:57 | NUR ---
NURSE NOTES: Called back from Dr. He regarding HD order for today. Dr. He said dialysis order is for tomorrow (08/26/18) not for today. Order carried out.
--- NOTE | 2018-08-25 10:59 | NUR ---
NURSE NOTES:Called [facility], spoke with Pat, in regards to dialysis for 08/26/18.
--- NOTE | 2018-08-25 11:11 | GI Progress Note ---
Assessment/Plan Problems: (1) Encounter for PEG (percutaneous endoscopic gastrostomy) ICD Codes: Z43.1 - Encounter for attention to gastrostomy SNOMED: 237745191, 544272585 (2) Severe malnutrition ICD Codes: E43 - Unspecified severe protein-calorie malnutrition SNOMED: 89095445 (3) Dehydration ICD Codes: E86.0 - Dehydration SNOMED: 56293005 Status: stable, unchanged Status Narrative Discussed with Dr. Cox Assessment/Plan Assessment - Dysphagia - Resp failure - ESRD - Anemia - Status post PEG Recommendations 1. Abdominal binder. 2. Elevate the head of the bed at all times. 3. G-tube flush. 4. G-tube care. 5. tube feeding later today per RD to goal Monitor H&H, PRN transfusions PPI Electrolyte correction Follow-up labs The patient was seen and examined at bedside and all new and available data was reviewed in the patients chart. I agree with the above findings, impression and plan. (Patient seen earlier today. Signature stamp does not reflect patient encounter time.). - Oc Cox MD Subjective Subjective limited Objective Last 24 Hour Vital Signs Date Time Temp Pulse Resp B/P (MAP) Pulse Ox O2 Delivery O2 Flow Rate FiO2 08/25/18 09:00 121/49 08/25/18 08:37 83 19 40 08/25/18 08:00 98.0 85 18 121/49 (73) 99 08/25/18 08:00 Mechanical Ventilator Mechanical Ventilator 08/25/18 08:00 40 08/25/18 07:39 89 08/25/18 06:50 88 22 40 08/25/18 05:30 73 19 40 08/25/18 04:00 99.3 62 17 91/22 (45) 100 08/25/18 04:00 73 08/25/18 04:00 Mechanical Ventilator Mechanical Ventilator 08/25/18 04:00 40 08/25/18 03:09 72 11 40 08/25/18 01:04 72 16 40 08/25/18 00:00 98.7 67 16 89/26 (47) 100 08/25/18 00:00 Mechanical Ventilator Mechanical Ventilator 08/25/18 00:00 40 08/25/18 00:00 72 08/24/18 23:35 70 12 40 08/24/18 21:20 76 17 40 08/24/18 20:29 104/24 08/24/18 20:00 Mechanical Ventilator Mechanical Ventilator 08/24/18 20:00 76 08/24/18 20:00 40 08/24/18 20:00 97.2 73 18 104/24 (50) 100 08/24/18 19:54 71 17 40 08/24/18 17:17 79 13 40 08/24/18 16:50 78 08/24/18 16:00 97.2 72 18 131/52 (78) 100 08/24/18 16:00 Mechanical Ventilator Mechanical Ventilator 08/24/18 16:00 40 08/24/18 15:12 77 15 40 08/24/18 13:01 68 08/24/18 12:47 74 16 40 08/24/18 12:00 98.0 75 18 118/60 (79) 100 08/24/18 12:00 40 08/24/18 12:00 Mechanical Ventilator Mechanical Ventilator Intake and Output 08/24/18 08/25/18 19:00 07:00 Intake Total 480 ml 560 ml Output Total 2600 ml 250 ml Balance -2120 ml 310 ml Free Water 80 ml Tube Feeding 480 ml 480 ml Stool Total 100 ml 250 ml Hemodialysis UF 2500 ml # Bowel Movements 3 Laboratory Tests Test 08/25/18 03:30 White Blood Count 11.2 K/UL (4.8-10.8) H Red Blood Count 3.00 M/UL (4.20-5.40) L Hemoglobin 9.1 G/DL (12.0-16.0) L Hematocrit 29.0 % (37.0-47.0) L Mean Corpuscular Volume 96 FL (80-99) Mean Corpuscular Hemoglobin 30.3 PG (27.0-31.0) Mean Corpuscular Hemoglobin Concent 31.4 G/DL (32.0-36.0) L Red Cell Distribution Width 18.6 % (11.6-14.8) H Platelet Count 365 K/UL (150-450) Mean Platelet Volume 6.1 FL (6.5-10.1) L Neutrophils (%) (Auto) 84.7 % (45.0-75.0) H Lymphocytes (%) (Auto) 5.4 % (20.0-45.0) L Monocytes (%) (Auto) 6.7 % (1.0-10.0) Eosinophils (%) (Auto) 1.3 % (0.0-3.0) Basophils (%) (Auto) 1.8 % (0.0-2.0) Sodium Level 133 MMOL/L (136-145) L Potassium Level 3.7 MMOL/L (3.5-5.1) Chloride Level 96 MMOL/L (98-107) L Carbon Dioxide Level 27 MMOL/L (21-32) Anion Gap 10 mmol/L (5-15) Blood Urea Nitrogen 30 mg/dL (7-18) H Creatinine 1.9 MG/DL (0.55-1.30) H Estimat Glomerular Filtration Rate mL/min (>60) Glucose Level 117 MG/DL (74-106) H Calcium Level 8.9 MG/DL (8.5-10.1) Height (Feet): 5 Height (Inches): 2.00 Weight (Pounds): 111 General Appearance: no apparent distress Cardiovascular: normal rate Respiratory/Chest: other - Mechanical ventilator Abdominal Exam: GT site - Clean dry and intact Rita Quintanilla NP Aug 25, 2018 11:11
--- NOTE | 2018-08-25 11:20 | Pulmonology Progress Note ---
Assessment/Plan Assessment/Plan IMPRESSION: 1. Hypotension. Resolved. 2. Sepsis. 3. Atrial fibrillation. 4. Bradycardia. 5. Diabetes mellitus. 6. End-stage renal disease on dialysis. 7. Left lung collapse. Resolved 8. Respiratory failure. now status post tracheostomy 9. Dysphagia. 10. Dementia. 11. Anemia 12. Pneumonia DISCUSSION: 1. Continue medications. 2. CXR improved 3. Status post tracheostomy 4. S/p G-tube Andres Allan M.D. Subjective Interval Events: None reported Constitutional: Reports: no symptoms HEENT: Repors: no symptoms Respiratory: Reports: no symptoms Cardiovascular: Reports: no symptoms Gastrointestinal/Abdominal: Reports: no symptoms Genitourinary: Reports: no symptoms Allergies: Coded Allergies: No Known Allergies (Unverified , 07/25/18) Objective Last 24 Hour Vital Signs Date Time Temp Pulse Resp B/P (MAP) Pulse Ox O2 Delivery O2 Flow Rate FiO2 08/25/18 11:17 74 14 40 08/25/18 09:00 121/49 08/25/18 08:37 83 19 40 08/25/18 08:00 98.0 85 18 121/49 (73) 99 08/25/18 08:00 Mechanical Ventilator Mechanical Ventilator 08/25/18 08:00 40 08/25/18 07:39 89 08/25/18 06:50 88 22 40 08/25/18 05:30 73 19 40 08/25/18 04:00 99.3 62 17 91/22 (45) 100 08/25/18 04:00 73 08/25/18 04:00 Mechanical Ventilator Mechanical Ventilator 08/25/18 04:00 40 08/25/18 03:09 72 11 40 08/25/18 01:04 72 16 40 08/25/18 00:00 98.7 67 16 89/26 (47) 100 08/25/18 00:00 Mechanical Ventilator Mechanical Ventilator 08/25/18 00:00 40 08/25/18 00:00 72 08/24/18 23:35 70 12 40 08/24/18 21:20 76 17 40 08/24/18 20:29 104/24 08/24/18 20:00 Mechanical Ventilator Mechanical Ventilator 08/24/18 20:00 76 08/24/18 20:00 40 08/24/18 20:00 97.2 73 18 104/24 (50) 100 08/24/18 19:54 71 17 40 08/24/18 17:17 79 13 40 08/24/18 16:50 78 08/24/18 16:00 97.2 72 18 131/52 (78) 100 08/24/18 16:00 Mechanical Ventilator Mechanical Ventilator 08/24/18 16:00 40 08/24/18 15:12 77 15 40 08/24/18 13:01 68 08/24/18 12:47 74 16 40 08/24/18 12:00 98.0 75 18 118/60 (79) 100 08/24/18 12:00 40 08/24/18 12:00 Mechanical Ventilator Mechanical Ventilator Intake and Output 08/24/18 08/25/18 19:00 07:00 Intake Total 480 ml 560 ml Output Total 2600 ml 250 ml Balance -2120 ml 310 ml Free Water 80 ml Tube Feeding 480 ml 480 ml Stool Total 100 ml 250 ml Hemodialysis UF 2500 ml # Bowel Movements 3 General Appearance: no acute distress HEENT: normocephalic Respiratory/Chest: chest wall non-tender, lungs clear Cardiovascular: normal peripheral pulses, normal rate Abdomen: normal bowel sounds Laboratory Tests 08/25/18 03:30: White Blood Count 11.2H, Red Blood Count 3.00L, Hemoglobin 9.1L, Hematocrit 29.0L, Mean Corpuscular Volume 96, Mean Corpuscular Hemoglobin 30.3, Mean Corpuscular Hemoglobin Concent 31.4L, Red Cell Distribution Width 18.6H, Platelet Count 365, Mean Platelet Volume 6.1L, Neutrophils (%) (Auto) 84.7H, Lymphocytes (%) (Auto) 5.4L, Monocytes (%) (Auto) 6.7, Eosinophils (%) (Auto) 1.3, Basophils (%) (Auto) 1.8, Sodium Level 133L, Potassium Level 3.7, Chloride Level 96L, Carbon Dioxide Level 27, Anion Gap 10, Blood Urea Nitrogen 30H, Creatinine 1.9H, Estimat Glomerular Filtration Rate , Glucose Level 117H, Calcium Level 8.9 Current Medications Medications (Trade) Dose Ordered Sig/Renetta Route PRN Reason Start Time Stop Time Status Last Admin Dose Admin Acetaminophen (Tylenol) 650 mg Q6H PRN GT Mild Pain/Temp > 100.5 08/21/18 16:00 09/18/18 15:59 08/24/18 18:44 Amiodarone HCl (Cordarone) 200 mg EVERY 12 HOURS NG 08/21/18 21:00 09/03/18 13:59 08/25/18 08:58 Apixaban (Eliquis) 2.5 mg BID NG 08/21/18 18:00 09/18/18 08:59 08/25/18 08:58 Artificial Tears (Akwa-Tears) 1 drop Q4H PRN BOTH EYES Dry Eyes 08/21/18 15:30 09/19/18 15:29 Chlorhexidine Gluconate (Rylie-Hex 2%) 1 applic DAILY@1999 TOPIC 08/21/18 20:00 08/25/18 19:59 08/24/18 20:28 Collagenase (Santyl) 1 applic Q12HR TOPIC 08/21/18 21:00 09/03/18 20:59 08/25/18 08:59 Epoetin Paul (Procrit (for ESRD on dialysis)) 10,000 units WED-WED-WED SUBQ 08/22/18 21:00 08/26/18 20:59 08/24/18 21:00 Lansoprazole (Prevacid) 30 mg Q12HR ORAL 08/22/18 21:00 09/21/18 20:59 08/25/18 08:58 Minoxidil (Loniten) 5 mg Q12HR NG 08/21/18 21:00 08/30/18 20:59 08/25/18 09:00 Sodium Chloride 1,000 ml @ 500 mls/hr Q2H PRN IVLG sbp<90 during hd 08/24/18 12:00 08/25/18 23:59 Sodium Chloride ([place] Nasal [place]) 1 spray Q4H PRN NASAL dry nose 08/21/18 14:30 09/19/18 18:29 08/23/18 11:49 Vitamin D (Vitamin D) 1,000 intlu DAILY GT 08/22/18 09:00 09/06/18 09:59 12/27/18 08:58 Zolpidem Tartrate (Ambien) 5 mg HSPRN PRN ORAL Insomnia 08/24/18 19:15 08/31/18 19:14 08/24/18 20:28 Andres Allan MD Aug 25, 2018 11:20
--- NOTE | 2018-08-25 11:46 | Infectious Diseases Prog Note ---
Assessment/Plan Assessment/Plan A: Sepsis treated UTI treated Cellulitis of R leg, osteomyelitis treated Hypercapnic respiratory failure ESRD on HD DM Anemia Dementia PVD R pleural effusion Mucous plug s/o Cardiac arrest Stage IV sacral ulcer P; Observe off antibiotic Waiting for placement Subjective ROS Limited/Unobtainable: Yes Constitutional: Reports: no symptoms Allergies: Coded Allergies: No Known Allergies (Unverified , 07/25/18) Objective Vital Signs Last 24 Hour Vital Signs Date Time Temp Pulse Resp B/P (MAP) Pulse Ox O2 Delivery O2 Flow Rate FiO2 08/25/18 11:17 74 14 40 08/25/18 09:00 121/49 08/25/18 08:37 83 19 40 08/25/18 08:00 98.0 85 18 121/49 (73) 99 08/25/18 08:00 Mechanical Ventilator Mechanical Ventilator 08/25/18 08:00 40 08/25/18 07:39 89 08/25/18 06:50 88 22 40 08/25/18 05:30 73 19 40 08/25/18 04:00 99.3 62 17 91/22 (45) 100 08/25/18 04:00 73 08/25/18 04:00 Mechanical Ventilator Mechanical Ventilator 08/25/18 04:00 40 08/25/18 03:09 72 11 40 08/25/18 01:04 72 16 40 08/25/18 00:00 98.7 67 16 89/26 (47) 100 08/25/18 00:00 Mechanical Ventilator Mechanical Ventilator 08/25/18 00:00 40 08/25/18 00:00 72 08/24/18 23:35 70 12 40 08/24/18 21:20 76 17 40 08/24/18 20:29 104/24 08/24/18 20:00 Mechanical Ventilator Mechanical Ventilator 08/24/18 20:00 76 08/24/18 20:00 40 08/24/18 20:00 97.2 73 18 104/24 (50) 100 08/24/18 19:54 71 17 40 08/24/18 17:17 79 13 40 08/24/18 16:50 78 08/24/18 16:00 97.2 72 18 131/52 (78) 100 08/24/18 16:00 Mechanical Ventilator Mechanical Ventilator 08/24/18 16:00 40 08/24/18 15:12 77 15 40 08/24/18 13:01 68 08/24/18 12:47 74 16 40 08/24/18 12:00 98.0 75 18 118/60 (79) 100 08/24/18 12:00 40 08/24/18 12:00 Mechanical Ventilator Mechanical Ventilator Height (Feet): 5 Height (Inches): 2.00 Weight (Pounds): 111 General Appearance: no acute distress HEENT: status post trach Respiratory/Chest: lungs clear, other - on ventilator Cardiovascular: normal rate, other - R arm PICC line Abdomen: soft, non tender, other - GT feeding Extremities: no edema Neurologic/Psychiatric: alert, responsive Laboratory Tests Test 08/25/18 03:30 White Blood Count 11.2 K/UL (4.8-10.8) H Red Blood Count 3.00 M/UL (4.20-5.40) L Hemoglobin 9.1 G/DL (12.0-16.0) L Hematocrit 29.0 % (37.0-47.0) L Mean Corpuscular Volume 96 FL (80-99) Mean Corpuscular Hemoglobin 30.3 PG (27.0-31.0) Mean Corpuscular Hemoglobin Concent 31.4 G/DL (32.0-36.0) L Red Cell Distribution Width 18.6 % (11.6-14.8) H Platelet Count 365 K/UL (150-450) Mean Platelet Volume 6.1 FL (6.5-10.1) L Neutrophils (%) (Auto) 84.7 % (45.0-75.0) H Lymphocytes (%) (Auto) 5.4 % (20.0-45.0) L Monocytes (%) (Auto) 6.7 % (1.0-10.0) Eosinophils (%) (Auto) 1.3 % (0.0-3.0) Basophils (%) (Auto) 1.8 % (0.0-2.0) Sodium Level 133 MMOL/L (136-145) L Potassium Level 3.7 MMOL/L (3.5-5.1) Chloride Level 96 MMOL/L (98-107) L Carbon Dioxide Level 27 MMOL/L (21-32) Anion Gap 10 mmol/L (5-15) Blood Urea Nitrogen 30 mg/dL (7-18) H Creatinine 1.9 MG/DL (0.55-1.30) H Estimat Glomerular Filtration Rate mL/min (>60) Glucose Level 117 MG/DL (74-106) H Calcium Level 8.9 MG/DL (8.5-10.1) Current Medications Medications (Trade) Dose Ordered Sig/Renetta Route PRN Reason Start Time Stop Time Status Last Admin Dose Admin Acetaminophen (Tylenol) 650 mg Q6H PRN GT Mild Pain/Temp > 100.5 08/21/18 16:00 09/18/18 15:59 08/24/18 18:44 Amiodarone HCl (Cordarone) 200 mg EVERY 12 HOURS NG 08/21/18 21:00 09/03/18 13:59 08/25/18 08:58 Apixaban (Eliquis) 2.5 mg BID NG 08/21/18 18:00 09/18/18 08:59 08/25/18 08:58 Artificial Tears (Akwa-Tears) 1 drop Q4H PRN BOTH EYES Dry Eyes 08/21/18 15:30 09/19/18 15:29 Chlorhexidine Gluconate (Rylie-Hex 2%) 1 applic DAILY@1999 TOPIC 08/21/18 20:00 08/25/18 19:59 08/24/18 20:28 Collagenase (Santyl) 1 applic Q12HR TOPIC 08/21/18 21:00 09/03/18 20:59 08/25/18 08:59 Epoetin Paul (Procrit (for ESRD on dialysis)) 10,000 units SUBQ 08/22/18 21:00 08/26/18 20:59 08/24/18 21:00 Lansoprazole (Prevacid) 30 mg Q12HR ORAL 08/22/18 21:00 09/21/18 20:59 08/25/18 08:58 Minoxidil (Loniten) 5 mg Q12HR NG 08/21/18 21:00 08/30/18 20:59 08/25/18 09:00 Sodium Chloride 1,000 ml @ 500 mls/hr Q2H PRN IVLG sbp<90 during hd 08/24/18 12:00 08/25/18 23:59 Sodium Chloride ([place] Nasal [place]) 1 spray Q4H PRN NASAL dry nose 08/21/18 14:30 09/19/18 18:29 08/23/18 11:49 Vitamin D (Vitamin D) 1,000 intlu DAILY GT 08/22/18 09:00 09/06/18 09:59 08/25/18 08:58 Zolpidem Tartrate (Ambien) 5 mg HSPRN PRN ORAL Insomnia 08/24/18 19:15 08/31/18 19:14 08/24/18 20:28 Freedom Randolph MD Aug 25, 2018 11:45
[2018-08-25 11:51] VITALS: BP 120/47
[2018-08-25] MEDS: Acetaminophen 650mg/20.3ml GT PRN (14:29)
--- NOTE | 2018-08-25 14:31 | NUR ---
CASE MANAGEMENT: REVIEW SI: ESRD ON HD TRACHEOSTOMY 08/15 PEG PLACEMENT 08/17 T 97.2 HR 79 RR 17 BP 121/49 SAT 97% MECH VENT FIO2 40 WBC 11.2 H/H 9.1/29.0 NA 133 BUN 30 CR 1.9 IS: PROCRIT SQ MWF ELIQUIS NG BID AMIODARONE GT Q12HR GT FEEDING NEPRO @ 40ML/HR STEP DOWN UNIT STATUS DCP: PATIENT IS FROM [facility]
--- NOTE | 2018-08-25 14:34 | NUR ---
INSURANCE UPDATED CLINICALS AND REVIEW FAXED TO [facility]#: [id number] MICHELINEM: TESFAYE Pederson#[phone] F#: [phone]
[2018-08-25 15:41] VITALS: BP 100/36
[2018-08-25] MEDS ORDERED: NS 275ml ONE (16:09)
[2018-08-25] MEDS: Eliquis 2.5mg tablet GT SCH (17:09)
--- NOTE | 2018-08-25 17:37 | Nephrology Progress Note ---
Assessment/Plan Assessment Seee below Plan MOF resolving. ESRD HD q MWF Anemia of CKD , DARRYN high dose. Transfuse PRN. A. 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 with LAE. LVEF 65% . On Eliquis. Post trach + PEG . Referred to [facility]. Referral not received there despite numerous requests. Pt' s son agreeable to [facility]. See orders. DW pt's son. Needs extensive Vascular W/U. Subjective Subjective No c/o. Per pt's son she's very anxious. Objective Objective Last 24 Hour Vital Signs Date Time Temp Pulse Resp B/P (MAP) Pulse Ox O2 Delivery O2 Flow Rate FiO2 08/25/18 16:00 Mechanical Ventilator Mechanical Ventilator 08/25/18 16:00 40 08/25/18 16:00 68 08/25/18 15:41 97.6 70 14 100/36 (57) 97 08/25/18 15:04 73 14 40 08/25/18 13:22 84 17 40 08/25/18 12:00 76 08/25/18 12:00 Mechanical Ventilator Mechanical Ventilator 08/25/18 12:00 40 08/25/18 11:51 97.2 79 17 120/47 (71) 97 08/25/18 11:17 74 14 40 08/25/18 09:00 121/49 08/25/18 08:37 83 19 40 08/25/18 08:00 98.0 85 18 121/49 (73) 99 08/25/18 08:00 Mechanical Ventilator Mechanical Ventilator 08/25/18 08:00 40 08/25/18 07:39 89 08/25/18 06:50 88 22 40 08/25/18 05:30 73 19 40 08/25/18 04:00 99.3 62 17 91/22 (45) 100 08/25/18 04:00 73 08/25/18 04:00 Mechanical Ventilator Mechanical Ventilator 08/25/18 04:00 40 08/25/18 03:09 72 11 40 08/25/18 01:04 72 16 40 08/25/18 00:00 98.7 67 16 89/26 (47) 100 08/25/18 00:00 Mechanical Ventilator Mechanical Ventilator 08/25/18 00:00 40 08/25/18 00:00 72 08/24/18 23:35 70 12 40 08/24/18 21:20 76 17 40 08/24/18 20:29 104/24 08/24/18 20:00 Mechanical Ventilator Mechanical Ventilator 08/24/18 20:00 76 08/24/18 20:00 40 08/24/18 20:00 97.2 73 18 104/24 (50) 100 08/24/18 19:54 71 17 40 Intake and Output 08/24/18 08/25/18 19:00 07:00 Intake Total 480 ml 560 ml Output Total 2600 ml 250 ml Balance -2120 ml 310 ml Free Water 80 ml Tube Feeding 480 ml 480 ml Stool Total 100 ml 250 ml Hemodialysis UF 2500 ml # Bowel Movements 3 Laboratory Tests 08/25/18 03:30: White Blood Count 11.2H, Red Blood Count 3.00L, Hemoglobin 9.1L, Hematocrit 29.0L, Mean Corpuscular Volume 96, Mean Corpuscular Hemoglobin 30.3, Mean Corpuscular Hemoglobin Concent 31.4L, Red Cell Distribution Width 18.6H, Platelet Count 365, Mean Platelet Volume 6.1L, Neutrophils (%) (Auto) 84.7H, Lymphocytes (%) (Auto) 5.4L, Monocytes (%) (Auto) 6.7, Eosinophils (%) (Auto) 1.3, Basophils (%) (Auto) 1.8, Sodium Level 133L, Potassium Level 3.7, Chloride Level 96L, Carbon Dioxide Level 27, Anion Gap 10, Blood Urea Nitrogen 30H, Creatinine 1.9H, Estimat Glomerular Filtration Rate , Glucose Level 117H, Calcium Level 8.9 Height (Feet): 5 Height (Inches): 2.00 Weight (Pounds): 111 Objective On vent. Trach clean. Cv IRR/IRR Lungs B ronchi. Abd SNT. BS + New PEG. E Rt. foot diabetic ulcers Chase He MD Aug 25, 2018 17:37
--- NOTE | 2018-08-25 19:00 | NUR ---
NURSE NOTES: Received Pt from [facility]. Pt is resting on the bed and awake and forgetful and calm. Dressing is clean and dry on Rt. upper arm mid line area. Pt has multiple wounds and dressing is clean and dry. On Tele monitor. Lt upper arm AV shunt present of bruit and thrills. Trach to Vent dependent setting with AC; 8, TV: 450, P; 5, FiO2 40% with SaO2 100% noted. Given oral and tracheal suction. No sign of acute distress noted. On P 200 mattress. Noted swelling on both arms. On rectal tube and in placed and patent. Changed position. Placed fall precaution. Will continue to care plan.
--- NOTE | 2018-08-25 19:01 | NUR ---
HAND-OFF: Report given to [facility]. Stable condition.
--- NOTE | 2018-08-25 19:08 | NUR ---
PT. RECEIVED STABLE ON CMV WITH CURRENT SETTING. VENT CIRCUIT AND SX TUBING SECURE AND OUT OF THE WAY. NO SIGN OF RESPIRATORY DISTRESS NOTED AT THIS TIME. WILL CONTINUE TO MONITOR.
--- NOTE | 2018-08-25 19:15 | Cardiology Progress Note ---
Assessment/Plan Assessment/Plan 1. Hypotension, possibly sepsis versus volume. 2. Paroxysmal episodes of atrial fibrillation history. 3. Bradycardia secondary to medications, amiodarone possibly. 4. Diabetes mellitus. 5. End-stage renal disease, on hemodialysis. 6. Lung collapse. 7. Respiratory failure, status post intubation. 8. Dysphagia. 9. History of dementia. 10. Pulm htn 11. Pleural effusion 12. cardaic arrest 13. chest wall pain post cpr mostly in sinus now stool ob neg x2 amiod bid unitl aug 30 then 200 mg daily vent support s/p trach peg done decreaase minoxidl and hold parameter applied on elequis 2.5 mg bid for stroke prevention Subjective Cardiovascular: Reports: chest pain Respiratory: Reports: shortness of breath Gastrointestinal/Abdominal: Reports: abdominal pain Genitourinary: Denies: burning Subjective on the vent, sob Objective Last 24 Hour Vital Signs Date Time Temp Pulse Resp B/P (MAP) Pulse Ox O2 Delivery O2 Flow Rate FiO2 08/25/18 16:40 75 18 40 08/25/18 16:00 Mechanical Ventilator Mechanical Ventilator 08/25/18 16:00 40 08/25/18 16:00 68 08/25/18 15:41 97.6 70 14 100/36 (57) 97 08/25/18 15:04 73 14 40 08/25/18 13:22 84 17 40 08/25/18 12:00 76 08/25/18 12:00 Mechanical Ventilator Mechanical Ventilator 08/25/18 12:00 40 08/25/18 11:51 97.2 79 17 120/47 (71) 97 08/25/18 11:17 74 14 40 08/25/18 09:00 121/49 08/25/18 08:37 83 19 40 08/25/18 08:00 98.0 85 18 121/49 (73) 99 08/25/18 08:00 Mechanical Ventilator Mechanical Ventilator 08/25/18 08:00 40 08/25/18 07:39 89 08/25/18 06:50 88 22 40 08/25/18 05:30 73 19 40 08/25/18 04:00 99.3 62 17 91/22 (45) 100 08/25/18 04:00 73 08/25/18 04:00 Mechanical Ventilator Mechanical Ventilator 08/25/18 04:00 40 08/25/18 03:09 72 11 40 08/25/18 01:04 72 16 40 08/25/18 00:00 98.7 67 16 89/26 (47) 100 08/25/18 00:00 Mechanical Ventilator Mechanical Ventilator 08/25/18 00:00 40 08/25/18 00:00 72 08/24/18 23:35 70 12 40 08/24/18 21:20 76 17 40 08/24/18 20:29 104/24 08/24/18 20:00 Mechanical Ventilator Mechanical Ventilator 08/24/18 20:00 76 08/24/18 20:00 40 08/24/18 20:00 97.2 73 18 104/24 (50) 100 08/24/18 19:54 71 17 40 General Appearance: no apparent distress, alert, on vent, patient on isolation Cardiovascular: normal rate Respiratory/Chest: lungs clear Abdomen: normal bowel sounds, non tender, soft Extremities: no swelling Intake and Output 08/24/18 08/25/18 18:59 06:59 Intake Total 480 ml 530 ml Output Total 2600 ml 250 ml Balance -2120 ml 280 ml Free Water 50 ml Tube Feeding 480 ml 480 ml Stool Total 100 ml 250 ml Hemodialysis UF 2500 ml # Bowel Movements 3 Laboratory Tests Test 08/25/18 03:30 White Blood Count 11.2 K/UL (4.8-10.8) H Red Blood Count 3.00 M/UL (4.20-5.40) L Hemoglobin 9.1 G/DL (12.0-16.0) L Hematocrit 29.0 % (37.0-47.0) L Mean Corpuscular Volume 96 FL (80-99) Mean Corpuscular Hemoglobin 30.3 PG (27.0-31.0) Mean Corpuscular Hemoglobin Concent 31.4 G/DL (32.0-36.0) L Red Cell Distribution Width 18.6 % (11.6-14.8) H Platelet Count 365 K/UL (150-450) Mean Platelet Volume 6.1 FL (6.5-10.1) L Neutrophils (%) (Auto) 84.7 % (45.0-75.0) H Lymphocytes (%) (Auto) 5.4 % (20.0-45.0) L Monocytes (%) (Auto) 6.7 % (1.0-10.0) Eosinophils (%) (Auto) 1.3 % (0.0-3.0) Basophils (%) (Auto) 1.8 % (0.0-2.0) Sodium Level 133 MMOL/L (136-145) L Potassium Level 3.7 MMOL/L (3.5-5.1) Chloride Level 96 MMOL/L (98-107) L Carbon Dioxide Level 27 MMOL/L (21-32) Anion Gap 10 mmol/L (5-15) Blood Urea Nitrogen 30 mg/dL (7-18) H Creatinine 1.9 MG/DL (0.55-1.30) H Estimat Glomerular Filtration Rate mL/min (>60) Glucose Level 117 MG/DL (74-106) H Calcium Level 8.9 MG/DL (8.5-10.1) Angelo Butler MD Aug 25, 2018 19:15
[2018-08-25 20:00] VITALS: BP 131/34
--- NOTE | 2018-08-25 20:00 | NUR ---
NURSE NOTES: Repositioned patient, oral care given, pulses noted, g-tube remains intact and feeding running, NAD, will continue to monitor.
[2018-08-25] MEDS: Dyna-Hex 2% Top Sol 2oz TOPIC SCH (20:40)
[2018-08-25] MEDS: LORazepam 0.5mg tab ORAL PRN (20:42)
[2018-08-25] MEDS: Minoxidil 2.5mg tab GT SCH (20:43)
[2018-08-25] MEDS: Amiodarone 200mg tab GT SCH (20:43)
[2018-08-25] MEDS ORDERED: Minoxidil 2.5mg tab GT SCH (21:00)
--- NOTE | 2018-08-25 22:00 | NUR ---
NURSE NOTES: Repositioned patient. NAD, Vitals remains stable, will continue to monitor.
[2018-08-26] VITALS: BP 110/21
--- NOTE | 2018-08-26 | NUR ---
NURSE NOTES: Repositioned, oral care performed, vitals remains stable, rectal tube remains patent and intact, loose stools continue, Suctioned patient.
--- NOTE | 2018-08-26 02:00 | NUR ---
NURSE NOTES: Repositioned, vitals stable, no new changes
[2018-08-26 04:00] VITALS: BP 87/15
--- NOTE | 2018-08-26 04:00 | NUR ---
NURSE NOTES: Patient cleaned, dressings changed according to order sheet, new curex changed, patient repositioned, vitals remains stable, no fever, patient remains on Bilateral wrist restraints. Pulses noted, skin intact. Will continue to monitor.
--- NOTE | 2018-08-26 04:30 | NUR ---
NURSE NOTES: Discontinue restraints, patient been doing good without them. Will continue to monitor.
--- NOTE | 2018-08-26 05:05 | NUR ---
RESPIRATORY NOTE: PT. REMAINED STABLE ON CMV WITH CURRENT SETTINGS. SX PRN. VENT CIRCUIT AND SX TUBING SECURE AND OUT OF THE WAY. NO S/S OF RESPIRATORY DISTRESS NOTED AT THIS TIME.
[2018-08-26 05:22] LABS: BASOPHILS % (AUTO) 1.2 % (0.0-2.0); HEMATOCRIT 29.4 % (37.0-47.0); HEMOGLOBIN 9.1 G/DL (12.0-16.0); LYMPHOCYTES % (AUTO) 6.6 % (20.0-45.0); MEAN CORPUSCULAR VOLUME 96 FL (80-99); MONOCYTES % (AUTO) 9.6 % (1.0-10.0); NEUTROPHILS % (AUTO) 80.6 % (45.0-75.0); PLATELET COUNT 347 K/UL (150-450); RED BLOOD COUNT 3.05 M/UL (4.20-5.40); RED CELL DISTRIBUTION WIDTH 19.4 % (11.6-14.8); WHITE BLOOD COUNT 9.2 K/UL (4.8-10.8)
[2018-08-26 05:32] LABS: ANION GAP 10 mmol/L (5-15); BLOOD UREA NITROGEN 43 mg/dL (7-18); CALCIUM 9.5 MG/DL (8.5-10.1); CARBON DIOXIDE 27 MMOL/L (21-32); CHLORIDE 93 MMOL/L (98-107); CREATININE 2.3 MG/DL (0.55-1.30); POTASSIUM 3.5 MMOL/L (3.5-5.1); SODIUM 130 MMOL/L (136-145)
--- NOTE | 2018-08-26 06:00 | NUR ---
NURSE NOTES: NO ACUTE EVENTS OVERNIGHT. PATIENTS VITALS HAS REMAINED STABLE, NO FEVERS OR ACUTE DISTRESS OBSERVED. PATIENT REMAINS ON RECTAL TUBE FOR DIARRHEA, LOOSE BROWN STOOL. PATIENT PATIENT REPOSITIONED Q 2HRS AND ORAL CARE PERFORMED Q 4. PATIENT HAS BEEN OBSERVED TO BE COOPERATIVE WITHOUT THE NEED OF RESTRAINTS THEREFORE, RESTRAINTS WAS DISCONTINUED AT 0430. PATIENT SINCE THEN HAS NOT TRIED TO PULL ANY DEVICES. WOUND DRESSINGS WERE CHANGED ACCORDING TO MD ORDERS. NEPRO REMAINS RUNNING AT 40ML/HR, NEW FEED HUNG AND NEW TUBING CHANGED. IV LINES REMAINS PATENT, CLEAN, DRY AND ASYMPTOMATIC; SURESITE WAS CHANGED. NO NEW CHANGES, WILL CONTINUE TO OBSERVE AND MONITOR PATIENTS PROGRESS.
--- NOTE | 2018-08-26 06:57 | NUR ---
RESPIRATORY NOTE: Received pt on trache Shiley cuffed 8.0 with current vent setting: AC 8-450ml-40%FiO2- peep of 5, saturates at 99%. Patient appears alert and oriented. Patient stable on current setting, no acute resp distress or SOB noted at this time. Alarms are set and audible, vent is plugged into the red outlet, extra trache and ambu bag are at bed side. Will continue to monitor pt and suction as needed.
--- NOTE | 2018-08-26 07:30 | NUR ---
NURSE NOTES: Received patient from [facility] Anton. Patient VS stable at this time with no sign of acute distress. Patient denies pain or discomfort at this time. Patient appears alert and oriented. Patient on trach to vent at this time with setting of AC 8, TV 450, FiO2 40%, and PEEP 5. Patient stable on current setting. Patient has a G tube that is patent and running Nepro at 40cc/hr at this time. Patient has a rectal tube for loose stool at this time. Rectal tube patent and draining at this time. Patient anuric at this time. Patient has a sacral stage 4 pressure ulcer, bilateral DTI of the heal, diabetic ulcers of the right leg, and is on a P200 mattress. Patient has a right upper arm midline that is patent and saline locked at this time. Patient scheduled for dialysis today with [facility]. [facility] has been called yesterday regarding treatment. Patient bed in low position with bed alarm on and call light in reach at this time.
[2018-08-26 08:00] VITALS: BP 153/62
--- NOTE | 2018-08-26 08:43 | Pulmonology Progress Note ---
Assessment/Plan Assessment/Plan IMPRESSION: 1. Hypotension. Resolved. 2. Sepsis. 3. Atrial fibrillation. 4. Bradycardia. 5. Diabetes mellitus. 6. End-stage renal disease on dialysis. 7. Left lung collapse. Resolved 8. Respiratory failure. now status post tracheostomy 9. Dysphagia. 10. Dementia. 11. Anemia 12. Pneumonia DISCUSSION: 1. Continue medications. 2. CXR improved 3. Status post tracheostomy 4. S/p G-tube 5. Dr Badillo will cover me 08/27/18-08/31/18 Andres Allan M.D. Subjective Interval Events: No new events Constitutional: Reports: no symptoms HEENT: Repors: no symptoms Respiratory: Reports: no symptoms Cardiovascular: Reports: no symptoms Gastrointestinal/Abdominal: Reports: no symptoms Genitourinary: Reports: no symptoms Neurologic: Reports: no symptoms Allergies: Coded Allergies: No Known Allergies (Unverified , 07/25/18) Objective Last 24 Hour Vital Signs Date Time Temp Pulse Resp B/P (MAP) Pulse Ox O2 Delivery O2 Flow Rate FiO2 08/26/18 08:14 40 08/26/18 06:57 78 15 40 08/26/18 05:05 70 17 40 08/26/18 04:00 99.1 62 15 87/15 (39) 100 08/26/18 04:00 Mechanical Ventilator Mechanical Ventilator 08/26/18 04:00 40 08/26/18 04:00 70 08/26/18 02:54 77 12 40 08/26/18 00:46 72 11 40 08/26/18 00:00 75 08/26/18 00:00 Mechanical Ventilator Mechanical Ventilator 08/26/18 00:00 99.7 68 16 110/21 (50) 100 08/26/18 00:00 40 08/25/18 23:03 77 18 40 08/25/18 20:55 76 15 40 08/25/18 20:43 135/32 08/25/18 20:00 40 08/25/18 20:00 99.7 75 16 131/34 (66) 100 08/25/18 20:00 Mechanical Ventilator Mechanical Ventilator 08/25/18 20:00 68 08/25/18 19:08 74 15 40 08/25/18 16:40 75 18 40 08/25/18 16:00 Mechanical Ventilator Mechanical Ventilator 08/25/18 16:00 40 08/25/18 16:00 68 18 15:41 97.6 70 14 100/36 (57) 97 08/25/18 15:04 73 14 40 08/25/18 13:22 84 17 40 08/25/18 12:00 76 08/25/18 12:00 Mechanical Ventilator Mechanical Ventilator 08/25/18 12:00 40 08/25/18 11:51 97.2 79 17 120/47 (71) 97 08/25/18 11:17 74 14 40 08/25/18 09:00 121/49 Intake and Output 08/25/18 08/26/18 19:00 07:00 Intake Total 740 ml 540 ml Output Total 210 ml Balance 530 ml 540 ml Free Water 260 ml 100 ml Tube Feeding 480 ml 440 ml Stool Total 210 ml General Appearance: no acute distress HEENT: normocephalic, status post trach Respiratory/Chest: chest wall non-tender, lungs clear, normal breath sounds Cardiovascular: normal peripheral pulses, normal rate Abdomen: normal bowel sounds, soft, non tender Laboratory Tests 08/26/18 03:15: White Blood Count 9.2, Red Blood Count 3.05L, Hemoglobin 9.1L, Hematocrit 29.4L , Mean Corpuscular Volume 96, Mean Corpuscular Hemoglobin 29.9, Mean Corpuscular Hemoglobin Concent 31.0L, Red Cell Distribution Width 19.4H, Platelet Count 347, Mean Platelet Volume 6.0L, Neutrophils (%) (Auto) 80.6H, Lymphocytes (%) (Auto) 6.6L, Monocytes (%) (Auto) 9.6, Eosinophils (%) (Auto) 2.0, Basophils (%) (Auto) 1.2, Sodium Level 130L, Potassium Level 3.5, Chloride Level 93L, Carbon Dioxide Level 27, Anion Gap 10, Blood Urea Nitrogen 43H, Creatinine 2.3H, Estimat Glomerular Filtration Rate , Glucose Level 121H, Calcium Level 9.5 Current Medications Medications (Trade) Dose Ordered Sig/Renetta Route PRN Reason Start Time Stop Time Status Last Admin Dose Admin Acetaminophen (Tylenol) 650 mg Q6H PRN GT Mild Pain/Temp > 100.5 08/21/18 16:00 09/18/18 15:59 08/25/18 14:29 Amiodarone HCl (Cordarone) 200 mg EVERY 12 HOURS GT 08/25/18 21:00 09/24/18 20:59 08/25/18 20:43 Apixaban (Eliquis) 2.5 mg BID GT 08/25/18 18:00 09/24/18 17:59 08/25/18 17:09 Artificial Tears (Akwa-Tears) 1 drop Q4H PRN BOTH EYES Dry Eyes 08/21/18 15:30 09/19/18 15:29 Collagenase (Santyl) 1 applic Q12HR TOPIC 08/21/18 21:00 09/03/18 20:59 08/25/18 20:43 Epoetin Paul (Procrit (for ESRD on dialysis)) 10,000 units WED-WED-WED SUBQ 08/22/18 21:00 08/26/18 20:59 08/24/18 21:00 Lansoprazole (Prevacid) 30 mg Q12HR GT 08/25/18 21:00 09/24/18 20:59 08/25/18 20:40 Lorazepam (Ativan) 0.5 mg Q8H PRN ORAL For Anxiety 08/25/18 17:45 09/01/18 17:44 08/25/18 20:42 Minoxidil (Loniten) 2.5 mg Q12HR GT 08/25/18 21:00 09/24/18 20:59 08/25/18 20:43 Sodium Chloride 1,000 ml @ 500 mls/hr Q2H PRN IVLG sbp<90 during hd 08/26/18 17:38 09/25/18 17:37 Sodium Chloride ([place] Nasal [place]) 1 spray Q4H PRN NASAL dry nose 08/21/18 14:30 09/19/18 18:29 08/23/18 11:49 Vitamin D (Vitamin D) 1,000 intlu DAILY GT 08/22/18 09:00 09/06/18 09:59 08/25/18 08:58 Zolpidem Tartrate (Ambien) 5 mg HSPRN PRN GT Insomnia 08/25/18 16:45 09/01/18 16:44 Andres Allan MD Aug 26, 2018 08:43
--- NOTE | 2018-08-26 09:30 | NUR ---
NURSE NOTES: Patient placed on soft wrist restraint due to her being witnessed attempting to remove her trach multiple times this morning. Patient instructed multiple times to leave her trach alone at this time, but she is confused and/or noncompliant at this time. Will attempt to discontinue soft wrist restraints when possible.
[2018-08-26] MEDS: Amiodarone 200mg tab GT SCH ×2 (09:31→20:50)
[2018-08-26] MEDS: Vitamin D 1000 IU Tab GT SCH (09:31)
[2018-08-26] MEDS: Eliquis 2.5mg tablet GT SCH ×2 (09:32→18:25)
[2018-08-26] MEDS: Minoxidil 2.5mg tab GT SCH ×2 (09:32→21:12)
--- NOTE | 2018-08-26 10:27 | NUR ---
RD ASSESSMENT & RECOMMENDATIONS SEE CARE ACTIVITY FOR COMPLETE ASSESSMENT DAILY ESTIMATED NEEDS: Needs based on Critical care + Advanced Wounds + ESRD/ 60kg 22-30 kcals/kg 5831-1700 total kcals 1.5-2.0 g protein/kg 90-120g g total protein per MD mL/kg NUTRITION DIAGNOSIS: * Swallowing difficulty R/T respiratory status as evidenced by pt s/p self extubation, s/p code blue, reintubated, now s/p trach and PEG placement. (UPDATED) * Increased kcal/prot needs R/T wound healing as evidenced by pt admitted w/ multiple wounds including stage 4 sacral wound, refer to WC eval. * Altered nutrition related lab values R/T ESRD dx, clinical condition as evidenced by low K (2.7-> wnl), episodes of hypoglycemia (68 69-> now resolved), elev creat (4.6-> 2.3), low Na (130), elev BNP >60513, low BP, off pressor at this time. CURRENT TF:Nepro @40ml/hr + PS BID ENTERAL NUTRITION RECOMMENDATIONS: Nepro @40ml/hr x 24 hrs + Prosource 1pkt BID to provide 960ml, 1728kcal, 78g + 22g prot, 698ml free water 1. Maintain current rate, add Prosource 1 pack BID to better meet est protein needs 2. Flush per MD/ HOB over 30 degrees ADDITIONAL RECOMMENDATIONS: * RECALIBRATE BED SCALE POST TRACH AND PEG PROCEDURES * Add PROSOURCE 1 pack BID to better meet est protein needs * Wound healing- Nephrovite x 1, Afshin 1pkt BID * Monitor for hypoglycemia * Monitor tolerance to current TF rate * Monitor lytes daily w/ con't loose stool
--- NOTE | 2018-08-26 10:41 | NUR ---
NURSE NOTES: Oral care performed at this time. Patient straightened up in bed.
[2018-08-26 12:00] VITALS: BP 157/74
[2018-08-26] MEDS: Acetaminophen 650mg/20.3ml GT PRN (12:03)
--- NOTE | 2018-08-26 12:04 | GI Progress Note ---
Assessment/Plan Problems: (1) Encounter for PEG (percutaneous endoscopic gastrostomy) ICD Codes: Z43.1 - Encounter for attention to gastrostomy SNOMED: 657640970, 631563662 (2) Severe malnutrition ICD Codes: E43 - Unspecified severe protein-calorie malnutrition SNOMED: 58993087 (3) Dehydration ICD Codes: E86.0 - Dehydration SNOMED: 56627275 Status: stable Status Narrative Discussed with Dr. Cox Assessment/Plan Assessment - Dysphagia - Resp failure - ESRD - Anemia - Status post PEG Recommendations 1. Abdominal binder. 2. Elevate the head of the bed at all times. 3. G-tube flush. 4. G-tube care. 5. tube feeding later today per RD to goal Monitor H&H, PRN transfusions PPI Electrolyte correction Follow-up labs The patient was seen and examined at bedside and all new and available data was reviewed in the patients chart. I agree with the above findings, impression and plan. (Patient seen earlier today. Signature stamp does not reflect patient encounter time.). - Oc Cox MD Subjective Subjective limited Objective Last 24 Hour Vital Signs Date Time Temp Pulse Resp B/P (MAP) Pulse Ox O2 Delivery O2 Flow Rate FiO2 08/26/18 10:35 91 21 40 08/26/18 09:32 153/62 08/26/18 09:26 83 20 40 08/26/18 08:14 40 08/26/18 08:00 96.2 82 18 153/62 (92) 96 08/26/18 08:00 81 08/26/18 06:57 78 15 40 08/26/18 05:05 70 17 40 08/26/18 04:00 99.1 62 15 87/15 (39) 100 08/26/18 04:00 Mechanical Ventilator Mechanical Ventilator 08/26/18 04:00 40 08/26/18 04:00 70 08/26/18 02:54 77 12 40 08/26/18 00:46 72 11 40 08/26/18 00:00 75 08/26/18 00:00 Mechanical Ventilator Mechanical Ventilator 08/26/18 00:00 99.7 68 16 110/21 (50) 100 08/26/18 00:00 40 08/25/18 23:03 77 18 40 08/25/18 20:55 76 15 40 08/25/18 20:43 135/32 08/25/18 20:00 40 08/25/18 20:00 99.7 75 16 131/34 (66) 100 08/25/18 20:00 Mechanical Ventilator Mechanical Ventilator 08/25/18 20:00 68 08/25/18 19:08 74 15 40 08/25/18 16:40 75 18 40 08/25/18 16:00 Mechanical Ventilator Mechanical Ventilator 08/25/18 16:00 40 08/25/18 16:00 68 08/25/18 15:41 97.6 70 14 100/36 (57) 97 08/25/18 15:04 73 14 40 08/25/18 13:22 84 17 40 Intake and Output 08/25/18 08/26/18 19:00 07:00 Intake Total 740 ml 540 ml Output Total 210 ml Balance 530 ml 540 ml Free Water 260 ml 100 ml Tube Feeding 480 ml 440 ml Stool Total 210 ml Laboratory Tests Test 08/26/18 03:15 White Blood Count 9.2 K/UL (4.8-10.8) Red Blood Count 3.05 M/UL (4.20-5.40) L Hemoglobin 9.1 G/DL (12.0-16.0) L Hematocrit 29.4 % (37.0-47.0) L Mean Corpuscular Volume 96 FL (80-99) Mean Corpuscular Hemoglobin 29.9 PG (27.0-31.0) Mean Corpuscular Hemoglobin Concent 31.0 G/DL (32.0-36.0) L Red Cell Distribution Width 19.4 % (11.6-14.8) H Platelet Count 347 K/UL (150-450) Mean Platelet Volume 6.0 FL (6.5-10.1) L Neutrophils (%) (Auto) 80.6 % (45.0-75.0) H Lymphocytes (%) (Auto) 6.6 % (20.0-45.0) L Monocytes (%) (Auto) 9.6 % (1.0-10.0) Eosinophils (%) (Auto) 2.0 % (0.0-3.0) Basophils (%) (Auto) 1.2 % (0.0-2.0) Sodium Level 130 MMOL/L (136-145) L Potassium Level 3.5 MMOL/L (3.5-5.1) Chloride Level 93 MMOL/L (98-107) L Carbon Dioxide Level 27 MMOL/L (21-32) Anion Gap 10 mmol/L (5-15) Blood Urea Nitrogen 43 mg/dL (7-18) H Creatinine 2.3 MG/DL (0.55-1.30) H Estimat Glomerular Filtration Rate mL/min (>60) Glucose Level 121 MG/DL (74-106) H Calcium Level 9.5 MG/DL (8.5-10.1) Height (Feet): 5 Height (Inches): 2.00 Weight (Pounds): 105 General Appearance: WD/WN, no apparent distress, alert Cardiovascular: normal rate Respiratory/Chest: normal breath sounds, no respiratory distress Abdominal Exam: normal bowel sounds, non tender, soft, GT site - Clean dry and intact Extremities: non-tender Rita Quintanilla NP Aug 26, 2018 12:04
--- NOTE | 2018-08-26 13:10 | Nephrology Progress Note ---
Assessment/Plan Assessment Seee below Plan MOF resolving. ESRD HD q MWF Anemia of CKD , DARRYN high dose. Transfuse PRN. A. 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 with LAE. LVEF 65% . On Eliquis. Post trach + PEG . Referred to [facility]. Referral not received there despite numerous requests. Pt' s son agreeable to [facility]. See orders. DW pt's son. Needs extensive Vascular W/U. Subjective Subjective No c/o. Per pt's son she's very anxious. Objective Objective Last 24 Hour Vital Signs Date Time Temp Pulse Resp B/P (MAP) Pulse Ox O2 Delivery O2 Flow Rate FiO2 08/26/18 10:35 91 21 40 08/26/18 09:32 153/62 08/26/18 09:26 83 20 40 08/26/18 08:14 40 08/26/18 08:00 96.2 82 18 153/62 (92) 96 08/26/18 08:00 81 08/26/18 06:57 78 15 40 08/26/18 05:05 70 17 40 08/26/18 04:00 99.1 62 15 87/15 (39) 100 08/26/18 04:00 Mechanical Ventilator Mechanical Ventilator 08/26/18 04:00 40 08/26/18 04:00 70 08/26/18 02:54 77 12 40 08/26/18 00:46 72 11 40 08/26/18 00:00 75 08/26/18 00:00 Mechanical Ventilator Mechanical Ventilator 08/26/18 00:00 99.7 68 16 110/21 (50) 100 08/26/18 00:00 40 08/25/18 23:03 77 18 40 08/25/18 20:55 76 15 40 08/25/18 20:43 135/32 08/25/18 20:00 40 08/25/18 20:00 99.7 75 16 131/34 (66) 100 08/25/18 20:00 Mechanical Ventilator Mechanical Ventilator 08/25/18 20:00 68 08/25/18 19:08 74 15 40 08/25/18 16:40 75 18 40 08/25/18 16:00 Mechanical Ventilator Mechanical Ventilator 08/25/18 16:00 40 08/25/18 16:00 68 08/25/18 15:41 97.6 70 14 100/36 (57) 97 08/25/18 15:04 73 14 40 08/25/18 13:22 84 17 40 Intake and Output 08/25/18 08/26/18 19:00 07:00 Intake Total 740 ml 540 ml Output Total 210 ml Balance 530 ml 540 ml Free Water 260 ml 100 ml Tube Feeding 480 ml 440 ml Stool Total 210 ml Laboratory Tests 08/26/18 03:15: White Blood Count 9.2, Red Blood Count 3.05L, Hemoglobin 9.1L, Hematocrit 29.4L , Mean Corpuscular Volume 96, Mean Corpuscular Hemoglobin 29.9, Mean Corpuscular Hemoglobin Concent 31.0L, Red Cell Distribution Width 19.4H, Platelet Count 347, Mean Platelet Volume 6.0L, Neutrophils (%) (Auto) 80.6H, Lymphocytes (%) (Auto) 6.6L, Monocytes (%) (Auto) 9.6, Eosinophils (%) (Auto) 2.0, Basophils (%) (Auto) 1.2, Sodium Level 130L, Potassium Level 3.5, Chloride Level 93L, Carbon Dioxide Level 27, Anion Gap 10, Blood Urea Nitrogen 43H, Creatinine 2.3H, Estimat Glomerular Filtration Rate , Glucose Level 121H, Calcium Level 9.5 Height (Feet): 5 Height (Inches): 2.00 Weight (Pounds): 105 Objective On vent. Trach clean. Cv IRR/IRR Lungs B ronchi. Abd SNT. BS + New PEG. E Rt. foot diabetic ulcers Chase He MD Aug 26, 2018 13:10
--- NOTE | 2018-08-26 13:15 | NUR ---
NURSE NOTES: Spoke with Dr He regarding patient complaint of headache. Patient expresses that it is unrelieved by single dose of tylenol. Patient to be given another one time dose of tylenol 650mg at this time. Addendum: 08/26/18 at 1808 by Camille Orona RN gave order for [place] 5mg Q6H PRN if headache unrelieved by tylenol. Will follow up and place order if needed.
[2018-08-26] MEDS ORDERED: Acetaminophen 650mg/20.3ml GT SCH (13:23)
--- NOTE | 2018-08-26 13:40 | Infectious Diseases Prog Note ---
Assessment/Plan Assessment/Plan A: Sepsis treated UTI treated Cellulitis of R leg, osteomyelitis treated Hypercapnic respiratory failure ESRD on HD DM Anemia Dementia PVD R pleural effusion Mucous plug s/o Cardiac arrest Stage IV sacral ulcer P; Observe off antibiotic Waiting for placement Subjective ROS Limited/Unobtainable: Yes Constitutional: Reports: no symptoms Allergies: Coded Allergies: No Known Allergies (Unverified , 07/25/18) Objective Vital Signs Last 24 Hour Vital Signs Date Time Temp Pulse Resp B/P (MAP) Pulse Ox O2 Delivery O2 Flow Rate FiO2 08/26/18 12:42 79 17 40 08/26/18 12:00 Mechanical Ventilator Mechanical Ventilator 08/26/18 10:35 91 21 40 08/26/18 09:32 153/62 08/26/18 09:26 83 20 40 08/26/18 08:14 40 08/26/18 08:00 Mechanical Ventilator Mechanical Ventilator 08/26/18 08:00 96.2 82 18 153/62 (92) 96 08/26/18 08:00 81 08/26/18 06:57 78 15 40 08/26/18 05:05 70 17 40 08/26/18 04:00 99.1 62 15 87/15 (39) 100 08/26/18 04:00 Mechanical Ventilator Mechanical Ventilator 08/26/18 04:00 40 08/26/18 04:00 70 08/26/18 02:54 77 12 40 08/26/18 00:46 72 11 40 08/26/18 00:00 75 08/26/18 00:00 Mechanical Ventilator Mechanical Ventilator 08/26/18 00:00 99.7 68 16 110/21 (50) 100 08/26/18 00:00 40 08/25/18 23:03 77 18 40 08/25/18 20:55 76 15 40 08/25/18 20:43 135/32 08/25/18 20:00 40 08/25/18 20:00 99.7 75 16 131/34 (66) 100 08/25/18 20:00 Mechanical Ventilator Mechanical Ventilator 08/25/18 20:00 68 08/25/18 19:08 74 15 40 08/25/18 16:40 75 18 40 08/25/18 16:00 Mechanical Ventilator Mechanical Ventilator 08/25/18 16:00 40 08/25/18 16:00 68 08/25/18 15:41 97.6 70 14 100/36 (57) 97 08/25/18 15:04 73 14 40 Height (Feet): 5 Height (Inches): 2.00 Weight (Pounds): 105 HEENT: status post trach Respiratory/Chest: lungs clear, other - on vetilator Cardiovascular: normal rate, other - HD catheter Abdomen: soft, non tender, other - Rectal & gastric tubes Extremities: no edema Neurologic/Psychiatric: alert, responsive, disoriented Laboratory Tests Test 08/26/18 03:15 White Blood Count 9.2 K/UL (4.8-10.8) Red Blood Count 3.05 M/UL (4.20-5.40) L Hemoglobin 9.1 G/DL (12.0-16.0) L Hematocrit 29.4 % (37.0-47.0) L Mean Corpuscular Volume 96 FL (80-99) Mean Corpuscular Hemoglobin 29.9 PG (27.0-31.0) Mean Corpuscular Hemoglobin Concent 31.0 G/DL (32.0-36.0) L Red Cell Distribution Width 19.4 % (11.6-14.8) H Platelet Count 347 K/UL (150-450) Mean Platelet Volume 6.0 FL (6.5-10.1) L Neutrophils (%) (Auto) 80.6 % (45.0-75.0) H Lymphocytes (%) (Auto) 6.6 % (20.0-45.0) L Monocytes (%) (Auto) 9.6 % (1.0-10.0) Eosinophils (%) (Auto) 2.0 % (0.0-3.0) Basophils (%) (Auto) 1.2 % (0.0-2.0) Sodium Level 130 MMOL/L (136-145) L Potassium Level 3.5 MMOL/L (3.5-5.1) Chloride Level 93 MMOL/L (98-107) L Carbon Dioxide Level 27 MMOL/L (21-32) Anion Gap 10 mmol/L (5-15) Blood Urea Nitrogen 43 mg/dL (7-18) H Creatinine 2.3 MG/DL (0.55-1.30) H Estimat Glomerular Filtration Rate mL/min (>60) Glucose Level 121 MG/DL (74-106) H Calcium Level 9.5 MG/DL (8.5-10.1) Current Medications Medications (Trade) Dose Ordered Sig/Renetta Route PRN Reason Start Time Stop Time Status Last Admin Dose Admin Acetaminophen (Tylenol) 650 mg ONCE GT 08/26/18 13:23 08/26/18 14:23 Acetaminophen (Tylenol) 650 mg Q6H PRN GT Mild Pain/Temp > 100.5 08/21/18 16:00 09/18/18 15:59 08/26/18 12:03 Amiodarone HCl (Cordarone) 200 mg EVERY 12 HOURS GT 08/25/18 21:00 09/24/18 20:59 08/26/18 09:31 Apixaban (Eliquis) 2.5 mg BID GT 08/25/18 18:00 09/24/18 17:59 08/26/18 09:32 Artificial Tears ([place]-Tears) 1 drop Q4H PRN BOTH EYES Dry Eyes 08/21/18 15:30 09/19/18 15:29 Collagenase (Santyl) 1 applic Q12HR TOPIC 08/21/18 21:00 09/03/18 20:59 08/26/18 09:31 Epoetin Paul (Procrit (for ESRD on dialysis)) 10,000 units WED-WED-WED SUBQ 08/22/18 21:00 08/26/18 20:59 08/24/18 21:00 Lansoprazole (Prevacid) 30 mg Q12HR GT 08/25/18 21:00 09/24/18 20:59 08/26/18 09:32 Lorazepam (Ativan) 0.5 mg Q8H PRN ORAL For Anxiety 08/25/18 17:45 09/01/18 17:44 08/25/18 20:42 Minoxidil (Loniten) 2.5 mg Q12HR GT 08/25/18 21:00 09/24/18 20:59 08/26/18 09:32 Sodium Chloride 1,000 ml @ 500 mls/hr Q2H PRN IVLG sbp<90 during hd 08/26/18 17:38 09/25/18 17:37 Sodium Chloride ([place] Nasal [place]) 1 spray Q4H PRN NASAL dry nose 08/21/18 14:30 09/19/18 18:29 08/23/18 11:49 Vitamin D (Vitamin D) 1,000 intlu DAILY GT 08/22/18 09:00 09/06/18 09:59 08/26/18 09:31 Zolpidem Tartrate (Ambien) 5 mg HSPRN PRN GT Insomnia 08/25/18 16:45 09/01/18 16:44 Freedom Randolph MD Aug 26, 2018 13:40
--- NOTE | 2018-08-26 15:30 | NUR ---
NURSE NOTES: Patient pulled out her dialysis access during dialysis. Patient lost about 200cc of blood. stat CBC ordered by doctor at this time. Doctor Neri is aware.
[2018-08-26 15:54] LABS: BASOPHILS % (AUTO) 2.2 % (0.0-2.0); EOSINOPHILS % (AUTO) 1.8 % (0.0-3.0); HEMATOCRIT 32.9 % (37.0-47.0); LYMPHOCYTES % (AUTO) 6.2 % (20.0-45.0); MEAN CORPUSCULAR VOLUME 97 FL (80-99); MONOCYTES % (AUTO) 11.3 % (1.0-10.0); NEUTROPHILS % (AUTO) 78.5 % (45.0-75.0); PLATELET COUNT 342 K/UL (150-450); RED BLOOD COUNT 3.38 M/UL (4.20-5.40); RED CELL DISTRIBUTION WIDTH 18.8 % (11.6-14.8); WHITE BLOOD COUNT 9.3 K/UL (4.8-10.8)
[2018-08-26 16:00] VITALS: BP 121/33
--- NOTE | 2018-08-26 16:00 | NUR ---
NURSE NOTES: Dialysis complete at this time. 2L out. Addendum: 08/26/18 at 1926 by Camille Orona RN VS stable at this time.
--- NOTE | 2018-08-26 16:22 | NUR ---
NURSE NOTES: Dr He notified regarding CBC result at this time. No further orders.
--- NOTE | 2018-08-26 16:44 | NUR ---
CASE MANAGEMENT: REVIEW SI: ESRD ON HD TRACHEOSTOMY 08/15 PEG PLACEMENT 08/17 T 96.2 HR 86 RR 18 BP 157/74 SAT 95% MECH VENT FIO2 40 H/H 10.0/32.9 NA 130 BUN 43 CR 2.3 IS: MINOXIDIL GT Q12HR PROCRIT SQ MWF ELIQUIS NG BID AMIODARONE GT Q12HR GT FEEDING NEPRO @ 40ML/HR STEP DOWN UNIT STATUS DCP: PATIENT IS FROM [facility]
--- NOTE | 2018-08-26 16:47 | NUR ---
INSURANCE UPDATED CLINICALS AND REVIEW FAXED TO [facility]#: [id number] MICHELINEM: TESFAYE Pederson#[phone] F#: [phone]
--- NOTE | 2018-08-26 18:08 | NUR ---
NURSE NOTES: Patient complaining of headache unrelieved by the two doses of tylenol she received. Patient to be given [place] 5mg per doctor He.
[2018-08-26] MEDS ORDERED: Norco 5mg/325mg tab ORAL PRN (18:15)
[2018-08-26 18:27] LABS: ANION GAP 10 mmol/L (5-15); BLOOD UREA NITROGEN 32 mg/dL (7-18); CALCIUM 9.3 MG/DL (8.5-10.1); CARBON DIOXIDE 28 MMOL/L (21-32); CHLORIDE 94 MMOL/L (98-107); PHOSPHORUS 3.2 MG/DL (2.5-4.9); POTASSIUM 3.8 MMOL/L (3.5-5.1); SODIUM 132 MMOL/L (136-145)
[2018-08-26 18:29] LABS: BASOPHILS % (AUTO) 1.9 % (0.0-2.0); EOSINOPHILS % (AUTO) 1.5 % (0.0-3.0); HEMOGLOBIN 10.7 G/DL (12.0-16.0); MEAN CORPUSCULAR VOLUME 96 FL (80-99); MONOCYTES % (AUTO) 8.9 % (1.0-10.0); NEUTROPHILS % (AUTO) 78.8 % (45.0-75.0); PLATELET COUNT 416 K/UL (150-450); RED BLOOD COUNT 3.56 M/UL (4.20-5.40); RED CELL DISTRIBUTION WIDTH 18.5 % (11.6-14.8); WHITE BLOOD COUNT 8.8 K/UL (4.8-10.8)
--- NOTE | 2018-08-26 19:06 | Cardiology Progress Note ---
Assessment/Plan Assessment/Plan 1. Hypotension, possibly sepsis versus volume. 2. Paroxysmal episodes of atrial fibrillation history. 3. Bradycardia secondary to medications, amiodarone possibly. 4. Diabetes mellitus. 5. End-stage renal disease, on hemodialysis. 6. Lung collapse. 7. Respiratory failure, status post intubation. 8. Dysphagia. 9. History of dementia. 10. Pulm htn 11. Pleural effusion 12. cardaic arrest 13. chest wall pain post cpr mostly in sinus now stool ob neg x2 amiod bid unitl aug 30 then 200 mg daily vent support s/p trach peg done decreaase minoxidl and hold parameter applied on elequis 2.5 mg bid for stroke prevention Subjective ROS Limited/Unobtainable: Yes Subjective on the vent, sob Objective Last 24 Hour Vital Signs Date Time Temp Pulse Resp B/P (MAP) Pulse Ox O2 Delivery O2 Flow Rate FiO2 08/26/18 18:45 86 20 40 08/26/18 17:10 85 22 40 08/26/18 16:00 97.7 79 20 121/33 (62) 100 08/26/18 16:00 40 08/26/18 16:00 Mechanical Ventilator Mechanical Ventilator 08/26/18 16:00 82 08/26/18 14:35 83 18 40 08/26/18 12:42 79 17 40 08/26/18 12:00 Mechanical Ventilator Mechanical Ventilator 08/26/18 12:00 40 08/26/18 12:00 86 08/26/18 12:00 96.2 82 18 157/74 (101) 95 08/26/18 10:35 91 21 40 08/26/18 09:32 153/62 08/26/18 09:26 83 20 40 08/26/18 08:14 40 08/26/18 08:00 Mechanical Ventilator Mechanical Ventilator 08/26/18 08:00 96.2 82 18 153/62 (92) 96 08/26/18 08:00 81 08/26/18 06:57 78 15 40 08/26/18 05:05 70 17 40 08/26/18 04:00 99.1 62 15 87/15 (39) 100 08/26/18 04:00 Mechanical Ventilator Mechanical Ventilator 08/26/18 04:00 40 08/26/18 04:00 70 08/26/18 02:54 77 12 40 08/26/18 00:46 72 11 40 08/26/18 00:00 75 08/26/18 00:00 Mechanical Ventilator Mechanical Ventilator 08/26/18 00:00 99.7 68 16 110/21 (50) 100 08/26/18 00:00 40 08/25/18 23:03 77 18 40 08/25/18 20:55 76 15 40 08/25/18 20:43 135/32 08/25/18 20:00 40 08/25/18 20:00 99.7 75 16 131/34 (66) 100 08/25/18 20:00 Mechanical Ventilator Mechanical Ventilator 08/25/18 20:00 68 08/25/18 19:08 74 15 40 General Appearance: alert, on vent Intake and Output 08/25/18 08/26/18 19:00 07:00 Intake Total 740 ml 580 ml Output Total 210 ml Balance 530 ml 580 ml Free Water 260 ml 100 ml Tube Feeding 480 ml 480 ml Stool Total 210 ml Laboratory Tests Test 08/26/18 03:15 08/26/18 15:25 08/26/18 17:42 White Blood Count 9.2 K/UL (4.8-10.8) 9.3 K/UL (4.8-10.8) 8.8 K/UL (4.8-10.8) Red Blood Count 3.05 M/UL (4.20-5.40) L 3.38 M/UL (4.20-5.40) L 3.56 M/UL (4.20-5.40) L Hemoglobin 9.1 G/DL (12.0-16.0) L 10.0 G/DL (12.0-16.0) L 10.7 G/DL (12.0-16.0) L Hematocrit 29.4 % (37.0-47.0) L 32.9 % (37.0-47.0) L 34.0 % (37.0-47.0) L Mean Corpuscular Volume 96 FL (80-99) 97 FL (80-99) 96 FL (80-99) Mean Corpuscular Hemoglobin 29.9 PG (27.0-31.0) 29.7 PG (27.0-31.0) 30.0 PG (27.0-31.0) Mean Corpuscular Hemoglobin Concent 31.0 G/DL (32.0-36.0) L 30.5 G/DL (32.0-36.0) L 31.4 G/DL (32.0-36.0) L Red Cell Distribution Width 19.4 % (11.6-14.8) H 18.8 % (11.6-14.8) H 18.5 % (11.6-14.8) H Platelet Count 347 K/UL (150-450) 342 K/UL (150-450) 416 K/UL (150-450) Mean Platelet Volume 6.0 FL (6.5-10.1) L 5.9 FL (6.5-10.1) L 6.1 FL (6.5-10.1) L Neutrophils (%) (Auto) 80.6 % (45.0-75.0) H 78.5 % (45.0-75.0) H 78.8 % (45.0-75.0) H Lymphocytes (%) (Auto) 6.6 % (20.0-45.0) L 6.2 % (20.0-45.0) L 9.0 % (20.0-45.0) L Monocytes (%) (Auto) 9.6 % (1.0-10.0) 11.3 % (1.0-10.0) H 8.9 % (1.0-10.0) Eosinophils (%) (Auto) 2.0 % (0.0-3.0) 1.8 % (0.0-3.0) 1.5 % (0.0-3.0) Basophils (%) (Auto) 1.2 % (0.0-2.0) 2.2 % (0.0-2.0) H 1.9 % (0.0-2.0) Sodium Level 130 MMOL/L (136-145) L 132 MMOL/L (136-145) L Potassium Level 3.5 MMOL/L (3.5-5.1) 3.8 MMOL/L (3.5-5.1) Chloride Level 93 MMOL/L (98-107) L 94 MMOL/L (98-107) L Carbon Dioxide Level 27 MMOL/L (21-32) 28 MMOL/L (21-32) Anion Gap 10 mmol/L (5-15) 10 mmol/L (5-15) Blood Urea Nitrogen 43 mg/dL (7-18) H 32 mg/dL (7-18) H Creatinine 2.3 MG/DL (0.55-1.30) H 2.0 MG/DL (0.55-1.30) H Estimat Glomerular Filtration Rate mL/min (>60) mL/min (>60) Glucose Level 121 MG/DL (74-106) H 144 MG/DL (74-106) H Calcium Level 9.5 MG/DL (8.5-10.1) 9.3 MG/DL (8.5-10.1) Phosphorus Level 3.2 MG/DL (2.5-4.9) Angelo Butler MD Aug 26, 2018 19:06
--- NOTE | 2018-08-26 19:20 | NUR ---
HAND-OFF: Report given to ABLDO Spears. Patient VS stable at this time. Patient complaining of headache at this time. Patient given tylenol x 2 during my shift, but it has not helped. Order obtained from for [place]. Endorsed to follow up with pain medication administration.
--- NOTE | 2018-08-26 19:25 | NUR ---
Received patient from BALDO Obrien. Observed pt lying on bed. Awake and A/Ox3-4. Pt on trach to vent with setting of AC8, TV 450, FiO2 40%, and PEEP 5, no distress noted at this time. pt has G-tube, intact and patent, running Nepro at 40cc/hr. Patient has a rectal tube, intact and draining well. Patient anuric at this time. Pt has a sacral stage 4 pressure ulcer, bilateral DTI of the heal, diabetic ulcers of the right leg, and is on a P200 mattress. Midline is on R UA, intact and patent. AV shunt on L UA, patent, asymptomatic. Bed in the lowest position. Call light within reach. Will continue to monitor.
[2018-08-26 20:00] VITALS: BP 142/92
--- NOTE | 2018-08-26 20:40 | NUR ---
NURSE NOTES: pt c/o headache with constant frown, restless, uneasiness, and frequent moans.
[2018-08-26] MEDS: Norco 5mg/325mg tab GT PRN (20:53)
--- NOTE | 2018-08-26 20:53 | NUR ---
NURSE NOTES: PRN pain med given for headache. pt lying on the bed and no acute distress noted. Will continue to monitor.
[2018-08-26] MEDS: Epogen (for ESRD on dialysis) SUBQ SCH (20:54)
[2018-08-27] VITALS: BP 146/62
[2018-08-27 04:00] VITALS: BP 107/42
[2018-08-27 06:25] LABS: BASOPHILS % (AUTO) 1.4 % (0.0-2.0); EOSINOPHILS % (AUTO) 1.1 % (0.0-3.0); HEMATOCRIT 31.8 % (37.0-47.0); LYMPHOCYTES % (AUTO) 6.7 % (20.0-45.0); MEAN CORPUSCULAR VOLUME 94 FL (80-99); MONOCYTES % (AUTO) 10.1 % (1.0-10.0); NEUTROPHILS % (AUTO) 80.6 % (45.0-75.0); PLATELET COUNT 408 K/UL (150-450); RED BLOOD COUNT 3.39 M/UL (4.20-5.40); RED CELL DISTRIBUTION WIDTH 18.2 % (11.6-14.8); WHITE BLOOD COUNT 9.1 K/UL (4.8-10.8)
[2018-08-27 06:29] LABS: ANION GAP 9 mmol/L (5-15); BLOOD UREA NITROGEN 38 mg/dL (7-18); CALCIUM 9.4 MG/DL (8.5-10.1); CARBON DIOXIDE 27 MMOL/L (21-32); CHLORIDE 95 MMOL/L (98-107); CREATININE 2.3 MG/DL (0.55-1.30); PHOSPHORUS 3.7 MG/DL (2.5-4.9); POTASSIUM 3.8 MMOL/L (3.5-5.1); SODIUM 131 MMOL/L (136-145)
--- NOTE | 2018-08-27 07:20 | NUR ---
NURSE NOTES: Received patient from BALDO Spears. Patient lying in bed at this time. Patient is anxious. Patient's hands are cold. Patient covered with two blankets at this time. Patient does not have fever at this time. Patient asked if she is okay. Patient shakes head no at this time. Patient has history of anxiety. Patient's son should be visiting her today. This should ease her anxiety. Patient showing SR on the monitor at this time. Patient VS stable at this time. Patient has history of A.fib. Patient is on trach to ventilator with setting of AC 8, TV 450, FiO2 40%, and PEEP 5. Patient tolerating setting with stable saturation at this time. Patient has G tube that is intact and patent at this time. Patient running Nepro at 40cc/hr at this time. Patient tolerating with minimal residual of about 40cc. Patient has a rectal tube that is patent and draining at this time. Patient has multiple wounds. Patient has a sacral stage 4 pressure ulcer. Dressing to be changed today. Patient has diabetic ulcers on the right leg and ankle. Dressing to be changed today. patient had bilateral heal DTI. heals floated at this time. Patient to be turned every 2 hours and skin monitored closely at this time. Will follow up. Patient has a magnesium of 2.5 this morning. Patient has a right upper arm midline that is patent and saline locked at this time. Patient has bilateral arm + 1 pitting edema at this time. Patient has bilateral dry skin on lower extremities. Patient bed in low position with bed alarm on and call light in reach at this time.
--- NOTE | 2018-08-27 07:22 | NUR ---
NURSE NOTES: Paged Dr He regarding Magnesium of 2.5 this morning. Awaiting call back at this time.
--- NOTE | 2018-08-27 07:22 | NUR ---
HAND-OFF: Report given to BALDO Obrien. No acute distress noted at this time.
[2018-08-27 08:00] VITALS: BP 142/43
[2018-08-27] MEDS: Minoxidil 2.5mg tab GT SCH ×2 (09:12→20:33)
[2018-08-27] MEDS: Vitamin D 1000 IU Tab GT SCH (09:13)
[2018-08-27] MEDS: Amiodarone 200mg tab GT SCH ×2 (09:13→20:33)
[2018-08-27] MEDS: Eliquis 2.5mg tablet GT SCH ×2 (09:13→18:05)
--- NOTE | 2018-08-27 10:46 | Infectious Diseases Prog Note ---
"Assessment/Plan Assessment/Plan antibiotics : none A 1. 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 shock resolved 3. leucocytosis resolved 4. respiratory failure s/p tracheostomy 5. renal failure 6. 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 pleural effusion P 1. observe off antibiotics Subjective ROS Limited/Unobtainable: Yes Allergies: Coded Allergies: No Known Allergies (Unverified , 07/25/18) Objective Vital Signs Last 24 Hour Vital Signs Date Time Temp Pulse Resp B/P (MAP) Pulse Ox O2 Delivery O2 Flow Rate FiO2 08/27/18 09:17 72 16 40 08/27/18 09:12 142/43 08/27/18 08:00 87 08/27/18 08:00 97.7 83 16 142/43 (76) 98 08/27/18 06:50 74 16 40 08/27/18 04:52 69 14 40 08/27/18 04:00 Mechanical Ventilator Mechanical Ventilator 08/27/18 04:00 97.4 70 22 107/42 (63) 99 08/27/18 04:00 40 08/27/18 03:40 73 08/27/18 03:26 72 12 40 08/27/18 01:10 70 20 40 08/27/18 00:00 96 08/27/18 00:00 40 08/27/18 00:00 97.7 88 21 146/62 (90) 94 08/27/18 00:00 Mechanical Ventilator Mechanical Ventilator 08/26/18 22:47 78 19 40 08/26/18 21:12 142/92 08/26/18 20:30 83 18 40 08/26/18 20:00 97.5 79 19 142/92 (109) 99 08/26/18 20:00 40 08/26/18 20:00 Mechanical Ventilator Mechanical Ventilator 08/26/18 20:00 78 08/26/18 18:45 86 20 40 08/26/18 17:10 85 22 40 08/26/18 16:00 97.7 79 20 121/33 (62) 100 08/26/18 16:00 40 08/26/18 16:00 Mechanical Ventilator Mechanical Ventilator 08/26/18 16:00 82 08/26/18 14:35 83 18 40 08/26/18 12:42 79 17 40 08/26/18 12:00 Mechanical Ventilator Mechanical Ventilator 08/26/18 12:00 40 08/26/18 12:00 86 08/26/18 12:00 96.2 82 18 157/74 (101) 95 Height (Feet): 5 Height (Inches): 2.00 Weight (Pounds): 113 HEENT: status post trach Respiratory/Chest: lungs clear Cardiovascular: normal rate, regular rhythm, no gallop/murmur Abdomen: soft, non tender, other - GT Extremities: no edema, other - right arm PICC Laboratory Tests Test 08/26/18 15:25 08/26/18 17:42 08/27/18 05:30 White Blood Count 9.3 K/UL (4.8-10.8) 8.8 K/UL (4.8-10.8) 9.1 K/UL (4.8-10.8) Red Blood Count 3.38 M/UL (4.20-5.40) L 3.56 M/UL (4.20-5.40) L 3.39 M/UL (4.20-5.40) L Hemoglobin 10.0 G/DL (12.0-16.0) L 10.7 G/DL (12.0-16.0) L 10.0 G/DL (12.0-16.0) L Hematocrit 32.9 % (37.0-47.0) L 34.0 % (37.0-47.0) L 31.8 % (37.0-47.0) L Mean Corpuscular Volume 97 FL (80-99) 96 FL (80-99) 94 FL (80-99) Mean Corpuscular Hemoglobin 29.7 PG (27.0-31.0) 30.0 PG (27.0-31.0) 29.6 PG (27.0-31.0) Mean Corpuscular Hemoglobin Concent 30.5 G/DL (32.0-36.0) L 31.4 G/DL (32.0-36.0) L 31.5 G/DL (32.0-36.0) L Red Cell Distribution Width 18.8 % (11.6-14.8) H 18.5 % (11.6-14.8) H 18.2 % (11.6-14.8) H Platelet Count 342 K/UL (150-450) 416 K/UL (150-450) 408 K/UL (150-450) Mean Platelet Volume 5.9 FL (6.5-10.1) L 6.1 FL (6.5-10.1) L 6.0 FL (6.5-10.1) L Neutrophils (%) (Auto) 78.5 % (45.0-75.0) H 78.8 % (45.0-75.0) H 80.6 % (45.0-75.0) H Lymphocytes (%) (Auto) 6.2 % (20.0-45.0) L 9.0 % (20.0-45.0) L 6.7 % (20.0-45.0) L Monocytes (%) (Auto) 11.3 % (1.0-10.0) H 8.9 % (1.0-10.0) 10.1 % (1.0-10.0) H Eosinophils (%) (Auto) 1.8 % (0.0-3.0) 1.5 % (0.0-3.0) 1.1 % (0.0-3.0) Basophils (%) (Auto) 2.2 % (0.0-2.0) H 1.9 % (0.0-2.0) 1.4 % (0.0-2.0) Sodium Level 132 MMOL/L (136-145) L 131 MMOL/L (136-145) L Potassium Level 3.8 MMOL/L (3.5-5.1) 3.8 MMOL/L (3.5-5.1) Chloride Level 94 MMOL/L (98-107) L 95 MMOL/L (98-107) L Carbon Dioxide Level 28 MMOL/L (21-32) 27 MMOL/L (21-32) Anion Gap 10 mmol/L (5-15) 9 mmol/L (5-15) Blood Urea Nitrogen 32 mg/dL (7-18) H 38 mg/dL (7-18) H Creatinine 2.0 MG/DL (0.55-1.30) H 2.3 MG/DL (0.55-1.30) H Estimat Glomerular Filtration Rate mL/min (>60) mL/min (>60) Glucose Level 144 MG/DL (74-106) H 127 MG/DL (74-106) H Calcium Level 9.3 MG/DL (8.5-10.1) 9.4 MG/DL (8.5-10.1) Phosphorus Level 3.2 MG/DL (2.5-4.9) 3.7 MG/DL (2.5-4.9) Magnesium Level 2.5 MG/DL (1.8-2.4) H Current Medications Medications (Trade) Dose Ordered Sig/Renetta Route PRN Reason Start Time Stop Time Status Last Admin Dose Admin Acetaminophen (Tylenol) 650 mg Q6H PRN GT Mild Pain/Temp > 100.5 08/21/18 16:00 09/18/18 15:59 08/26/18 12:03 Acetaminophen/ Hydrocodone Bitart ([place] 5/325) 1 tab Q6H PRN GT For Pain 08/26/18 18:15 09/02/18 18:14 08/26/18 20:53 Amiodarone HCl (Cordarone) 200 mg EVERY 12 HOURS GT 08/25/18 21:00 09/24/18 20:59 08/27/18 09:13 Apixaban (Eliquis) 2.5 mg BID GT 08/25/18 18:00 09/24/18 17:59 08/27/18 09:13 Artificial Tears (Akwa-Tears) 1 drop Q4H PRN BOTH EYES Dry Eyes 08/21/18 15:30 09/19/18 15:29 Collagenase (Santyl) 1 applic Q12HR TOPIC 08/21/18 21:00 09/03/18 20:59 08/27/18 09:13 Lansoprazole (Prevacid) 30 mg Q12HR GT 08/25/18 21:00 09/24/18 20:59 08/27/18 09:13 Lorazepam (Ativan) 0.5 mg Q8H PRN ORAL For Anxiety 08/25/18 17:45 09/01/18 17:44 08/25/18 20:42 Minoxidil (Loniten) 2.5 mg Q12HR GT 08/25/18 21:00 09/24/18 20:59 08/27/18 09:12 Sodium Chloride 1,000 ml @ 500 mls/hr Q2H PRN IVLG sbp<90 during hd 08/26/18 17:38 09/25/18 17:37 Sodium Chloride ([place] Nasal [place]) 1 spray Q4H PRN NASAL dry nose 08/21/18 14:30 09/19/18 18:29 08/23/18 11:49 Vitamin D (Vitamin D) 1,000 intlu DAILY GT 08/22/18 09:00 09/06/18 09:59 08/27/18 09:13 Zolpidem Tartrate (Ambien) 5 mg HSPRN PRN GT Insomnia 08/25/18 16:45 09/01/18 16:44 Omid Morfin MD Aug 27, 2018 10:46"
[2018-08-27] MEDS: Norco 5mg/325mg tab GT PRN ×2 (11:19→18:04)
[2018-08-27] MEDS: LORazepam 0.5mg tab ORAL PRN (11:33)
[2018-08-27 12:00] VITALS: BP 120/61
--- NOTE | 2018-08-27 12:11 | Pulmonology Progress Note ---
Assessment/Plan Assessment/Plan Pulmonary Progress Note Assessment/Plan Assessment/Plan IMPRESSION: 1. Previous Hypotension. 2. Previous Sepsis. 3. Atrial fibrillation. 4. Bradycardia. 5. Diabetes mellitus. 6. End-stage renal disease on dialysis. 7. Left lung collapse. Resolved 8. Respiratory failure. now status post tracheostomy 9. Dysphagia. 10. Dementia. 11. Anemia 12. Pneumonia DISCUSSION: 1. Continue medications. 2. CXR improved 3. Status post tracheostomy 4. S/p G-tube Subjective Interval Events: None reported Constitutional: Reports: no symptoms HEENT: Repors: no symptoms Respiratory: Reports: no symptoms Cardiovascular: Reports: no symptoms Gastrointestinal/Abdominal: Reports: no symptoms Genitourinary: Reports: no symptoms Neurologic: Reports: no symptoms Psychiatric: Reports: no symptoms Allergies: Coded Allergies: No Known Allergies (Unverified , 07/25/18) Objective Vital Signs Noted General Appearance: no acute distress HEENT: normocephalic, status post trach Respiratory/Chest: chest wall non-tender, decreased breath sounds Cardiovascular: normal peripheral pulses, normal rate Abdomen: normal bowel sounds, soft, non tender Laboratory Tests noted Subjective ROS Limited/Unobtainable: No Allergies: Coded Allergies: No Known Allergies (Unverified , 07/25/18) Objective Last 24 Hour Vital Signs Date Time Temp Pulse Resp B/P (MAP) Pulse Ox O2 Delivery O2 Flow Rate FiO2 08/27/18 11:07 75 16 40 08/27/18 09:17 72 16 40 08/27/18 09:12 142/43 08/27/18 08:00 87 08/27/18 08:00 97.7 83 16 142/43 (76) 98 08/27/18 06:50 74 16 40 08/27/18 04:52 69 14 40 08/27/18 04:00 Mechanical Ventilator Mechanical Ventilator 08/27/18 04:00 97.4 70 22 107/42 (63) 99 08/27/18 04:00 40 08/27/18 03:40 73 08/27/18 03:26 72 12 40 08/27/18 01:10 70 20 40 08/27/18 00:00 96 08/27/18 00:00 40 08/27/18 00:00 97.7 88 21 146/62 (90) 94 08/27/18 00:00 Mechanical Ventilator Mechanical Ventilator 08/26/18 22:47 78 19 40 08/26/18 21:12 142/92 08/26/18 20:30 83 18 40 08/26/18 20:00 97.5 79 19 142/92 (109) 99 08/26/18 20:00 40 08/26/18 20:00 Mechanical Ventilator Mechanical Ventilator 08/26/18 20:00 78 08/26/18 18:45 86 20 40 08/26/18 17:10 85 22 40 08/26/18 16:00 97.7 79 20 121/33 (62) 100 08/26/18 16:00 40 08/26/18 16:00 Mechanical Ventilator Mechanical Ventilator 08/26/18 16:00 82 08/26/18 14:35 83 18 40 08/26/18 12:42 79 17 40 Intake and Output 08/26/18 08/27/18 19:00 07:00 Intake Total 870 ml 730 ml Output Total 2300 ml 30 ml Balance -1430 ml 700 ml Free Water 350 ml 250 ml Tube Feeding 520 ml 480 ml Stool Total 100 ml 30 ml Estimated Blood Loss 200 ml Other 2000 ml Laboratory Tests 08/26/18 15:25: White Blood Count 9.3, Red Blood Count 3.38L, Hemoglobin 10.0L, Hematocrit 32.9L , Mean Corpuscular Volume 97, Mean Corpuscular Hemoglobin 29.7, Mean Corpuscular Hemoglobin Concent 30.5L, Red Cell Distribution Width 18.8H, Platelet Count 342, Mean Platelet Volume 5.9L, Neutrophils (%) (Auto) 78.5H, Lymphocytes (%) (Auto) 6.2L, Monocytes (%) (Auto) 11.3H, Eosinophils (%) (Auto) 1.8, Basophils (%) (Auto) 2.2H 08/26/18 17:42: White Blood Count 8.8, Red Blood Count 3.56L, Hemoglobin 10.7L, Hematocrit 34.0L , Mean Corpuscular Volume 96, Mean Corpuscular Hemoglobin 30.0, Mean Corpuscular Hemoglobin Concent 31.4L, Red Cell Distribution Width 18.5H, Platelet Count 416, Mean Platelet Volume 6.1L, Neutrophils (%) (Auto) 78.8H, Lymphocytes (%) (Auto) 9.0L, Monocytes (%) (Auto) 8.9, Eosinophils (%) (Auto) 1.5, Basophils (%) (Auto) 1.9, Sodium Level 132L, Potassium Level 3.8, Chloride Level 94L, Carbon Dioxide Level 28, Anion Gap 10, Blood Urea Nitrogen 32H, Creatinine 2.0H, Estimat Glomerular Filtration Rate , Glucose Level 144H, Calcium Level 9.3, Phosphorus Level 3.2 08/27/18 05:30: White Blood Count 9.1, Red Blood Count 3.39L, Hemoglobin 10.0L, Hematocrit 31.8L , Mean Corpuscular Volume 94, Mean Corpuscular Hemoglobin 29.6, Mean Corpuscular Hemoglobin Concent 31.5L, Red Cell Distribution Width 18.2H, Platelet Count 408, Mean Platelet Volume 6.0L, Neutrophils (%) (Auto) 80.6H, Lymphocytes (%) (Auto) 6.7L, Monocytes (%) (Auto) 10.1H, Eosinophils (%) (Auto) 1.1, Basophils (%) (Auto) 1.4, Sodium Level 131L, Potassium Level 3.8, Chloride Level 95L, Carbon Dioxide Level 27, Anion Gap 9, Blood Urea Nitrogen 38H, Creatinine 2.3H, Estimat Glomerular Filtration Rate , Glucose Level 127H, Calcium Level 9.4, Phosphorus Level 3.7, Magnesium Level 2.5H Current Medications Medications (Trade) Dose Ordered Sig/Renetta Route PRN Reason Start Time Stop Time Status Last Admin Dose Admin Acetaminophen (Tylenol) 650 mg Q6H PRN GT Mild Pain/Temp > 100.5 08/21/18 16:00 09/18/18 15:59 08/26/18 12:03 Acetaminophen/ Hydrocodone Bitart ([place] 5/325) 1 tab Q6H PRN GT For Pain 08/26/18 18:15 09/02/18 18:14 08/27/18 11:19 Amiodarone HCl (Cordarone) 200 mg EVERY 12 HOURS GT 08/25/18 21:00 09/24/18 20:59 08/27/18 09:13 Apixaban (Eliquis) 2.5 mg BID GT 08/25/18 18:00 09/24/18 17:59 08/27/18 09:13 Artificial Tears ([place]wa-Tears) 1 drop Q4H PRN BOTH EYES Dry Eyes 08/21/18 15:30 09/19/18 15:29 Collagenase (Santyl) 1 applic Q12HR TOPIC 08/21/18 21:00 09/03/18 20:59 08/27/18 09:13 Lansoprazole (Prevacid) 30 mg Q12HR GT 08/25/18 21:00 09/24/18 20:59 08/27/18 09:13 Lorazepam (Ativan) 0.5 mg Q8H PRN ORAL For Anxiety 08/25/18 17:45 09/01/18 17:44 08/27/18 11:33 Minoxidil (Loniten) 2.5 mg Q12HR GT 08/25/18 21:00 09/24/18 20:59 08/27/18 09:12 Sodium Chloride 1,000 ml @ 500 mls/hr Q2H PRN IVLG sbp<90 during hd 08/26/18 17:38 09/25/18 17:37 Sodium Chloride ([place] Nasal [place]) 1 spray Q4H PRN NASAL dry nose 08/21/18 14:30 09/19/18 18:29 08/23/18 11:49 Vitamin D (Vitamin D) 1,000 intlu DAILY GT 08/22/18 09:00 09/06/18 09:59 08/27/18 09:13 Zolpidem Tartrate (Ambien) 5 mg HSPRN PRN GT Insomnia 08/25/18 16:45 09/01/18 16:44 Negro Patel MD Aug 27, 2018 12:11
--- NOTE | 2018-08-27 14:38 | Nephrology Progress Note ---
Assessment/Plan Assessment Seee below Plan MOF resolving. ESRD HD q MWF Anemia of CKD , DARRYN high dose. Transfuse PRN. A. 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 with LAE. LVEF 65% . On Eliquis. Post trach + PEG . Referred to [facility]. Referral not received there despite numerous requests. Pt' s son agreeable to [facility]. See orders. DW pt's son. Needs extensive Vascular W/U. Subjective Subjective No c/o. Per pt's son she's very anxious. Objective Objective Last 24 Hour Vital Signs Date Time Temp Pulse Resp B/P (MAP) Pulse Ox O2 Delivery O2 Flow Rate FiO2 08/27/18 13:22 78 18 40 08/27/18 12:00 97.9 80 18 120/61 (80) 100 08/27/18 12:00 84 08/27/18 11:07 75 16 40 08/27/18 09:17 72 16 40 08/27/18 09:12 142/43 08/27/18 08:00 87 08/27/18 08:00 97.7 83 16 142/43 (76) 98 08/27/18 06:50 74 16 40 08/27/18 04:52 69 14 40 08/27/18 04:00 Mechanical Ventilator Mechanical Ventilator 08/27/18 04:00 97.4 70 22 107/42 (63) 99 08/27/18 04:00 40 08/27/18 03:40 73 08/27/18 03:26 72 12 40 08/27/18 01:10 70 20 40 08/27/18 00:00 96 08/27/18 00:00 40 08/27/18 00:00 97.7 88 21 146/62 (90) 94 08/27/18 00:00 Mechanical Ventilator Mechanical Ventilator 08/26/18 22:47 78 19 40 08/26/18 21:12 142/92 08/26/18 20:30 83 18 40 08/26/18 20:00 97.5 79 19 142/92 (109) 99 08/26/18 20:00 40 08/26/18 20:00 Mechanical Ventilator Mechanical Ventilator 08/26/18 20:00 78 08/26/18 18:45 86 20 40 08/26/18 17:10 85 22 40 08/26/18 16:00 97.7 79 20 121/33 (62) 100 08/26/18 16:00 40 08/26/18 16:00 Mechanical Ventilator Mechanical Ventilator 08/26/18 16:00 82 Intake and Output 08/26/18 08/27/18 19:00 07:00 Intake Total 870 ml 730 ml Output Total 2300 ml 30 ml Balance -1430 ml 700 ml Free Water 350 ml 250 ml Tube Feeding 520 ml 480 ml Stool Total 100 ml 30 ml Estimated Blood Loss 200 ml Other 2000 ml Laboratory Tests 08/26/18 15:25: White Blood Count 9.3, Red Blood Count 3.38L, Hemoglobin 10.0L, Hematocrit 32.9L , Mean Corpuscular Volume 97, Mean Corpuscular Hemoglobin 29.7, Mean Corpuscular Hemoglobin Concent 30.5L, Red Cell Distribution Width 18.8H, Platelet Count 342, Mean Platelet Volume 5.9L, Neutrophils (%) (Auto) 78.5H, Lymphocytes (%) (Auto) 6.2L, Monocytes (%) (Auto) 11.3H, Eosinophils (%) (Auto) 1.8, Basophils (%) (Auto) 2.2H 08/26/18 17:42: White Blood Count 8.8, Red Blood Count 3.56L, Hemoglobin 10.7L, Hematocrit 34.0L , Mean Corpuscular Volume 96, Mean Corpuscular Hemoglobin 30.0, Mean Corpuscular Hemoglobin Concent 31.4L, Red Cell Distribution Width 18.5H, Platelet Count 416, Mean Platelet Volume 6.1L, Neutrophils (%) (Auto) 78.8H, Lymphocytes (%) (Auto) 9.0L, Monocytes (%) (Auto) 8.9, Eosinophils (%) (Auto) 1.5, Basophils (%) (Auto) 1.9, Sodium Level 132L, Potassium Level 3.8, Chloride Level 94L, Carbon Dioxide Level 28, Anion Gap 10, Blood Urea Nitrogen 32H, Creatinine 2.0H, Estimat Glomerular Filtration Rate , Glucose Level 144H, Calcium Level 9.3, Phosphorus Level 3.2 08/27/18 05:30: White Blood Count 9.1, Red Blood Count 3.39L, Hemoglobin 10.0L, Hematocrit 31.8L , Mean Corpuscular Volume 94, Mean Corpuscular Hemoglobin 29.6, Mean Corpuscular Hemoglobin Concent 31.5L, Red Cell Distribution Width 18.2H, Platelet Count 408, Mean Platelet Volume 6.0L, Neutrophils (%) (Auto) 80.6H, Lymphocytes (%) (Auto) 6.7L, Monocytes (%) (Auto) 10.1H, Eosinophils (%) (Auto) 1.1, Basophils (%) (Auto) 1.4, Sodium Level 131L, Potassium Level 3.8, Chloride Level 95L, Carbon Dioxide Level 27, Anion Gap 9, Blood Urea Nitrogen 38H, Creatinine 2.3H, Estimat Glomerular Filtration Rate , Glucose Level 127H, Calcium Level 9.4, Phosphorus Level 3.7, Magnesium Level 2.5H Height (Feet): 5 Height (Inches): 2.00 Weight (Pounds): 113 Objective On vent. Trach clean. Cv IRR/IRR Lungs B ronchi. Abd SNT. BS + New PEG. E Rt. foot diabetic ulcers Chase He MD Aug 27, 2018 14:38
[2018-08-27] MEDS: Artificial Tears 1.4% Op Soln BOTH EYES PRN (15:03)
[2018-08-27] MEDS: Ocean Nasal Spray 45ml NASAL PRN (15:21)
[2018-08-27 16:00] VITALS: BP 122/73
[2018-08-27] MEDS ORDERED: NS 275ml ONE (17:37)
--- NOTE | 2018-08-27 19:25 | NUR ---
NURSE NOTES: Report received from BALDO Obrien. Observed pt lying on the bed. Awake and A/O x 3-4. Pt c/o headache with frown and moan. Distraction measures done at this time, turn on TV, change position, pillow support, and turn off the light. Pt has trach on vent, shiley 8.0, Ac 8, TD 450, PEEP 5, FIO2 40%. GT intact and patent, running Nepro at 40cc/hr. Rectal tube intact and draining well. Midline on FLACO, intact and patent. L AV shunt, asymptomatic. Bed in the lowest position. Side rails up x3. Call light within reach. Will continue to monitor.
[2018-08-27 20:00] VITALS: BP 144/64
[2018-08-27] MEDS: Zolpidem 5mg tab GT PRN (20:32)
--- NOTE | 2018-08-27 20:34 | NUR ---
HAND-OFF: Report given to BALDO Spears. Patient VS stable at this time. Patient anxious and asking for ativan. Patient unable to have another dose at this time. Patient also asking about sleep medication. Endorsed to follow up.
[2018-08-28] VITALS: BP 149/73
--- NOTE | 2018-08-28 00:56 | NUR ---
Received patient on current vent settings. Trach is patent and secured at midline. Trach care was done and pt was Sx as needed. HOB is elevated. Alarms are set and audible. NO resp distress noted.
[2018-08-28 04:00] VITALS: BP 136/51
--- NOTE | 2018-08-28 07:29 | NUR ---
RESPIRATORY NOTE: Patient received mechanically ventilated on PB 840 with current ordered vent settings. Patient has trach 8.0 Shiley cuffed that is secured with trach tie and guard. Patient presents with bilateral coarse breath sounds and symmetrical chest rise. Small amount of thick clear secretions were suctioned via inline suction system without incident. There is an ambu bag available at the bedside and vent is connected to a red outlet. Vent alarms are functional and audible. Patient appears comfortable at this time. Will continue to monitor.
--- NOTE | 2018-08-28 07:30 | NUR ---
NURSE NOTES: Received report from BALDO Henderson. Patient is awake in bed with no s/s of acute distress noted. Sinus rhythm on personnel monitor. Trach-vent settings: Shiley 8, AC 8, Vt 450, PEEP 5, FiO2 40%. Right upper arm midline TKO, patent and intact. Bed locked in lowest position with side rails up x3. Call light left within reach. Will continue to monitor.
--- NOTE | 2018-08-28 07:30 | NUR ---
HAND-OFF: Report given to BALDO Miller. No acute disterss noted.
[2018-08-28 08:00] VITALS: BP 110/69
--- NOTE | 2018-08-28 09:40 | Infectious Diseases Prog Note ---
Assessment/Plan Assessment/Plan A: Sepsis treated UTI treated Cellulitis of R leg, osteomyelitis treated Hypercapnic respiratory failure ESRD on HD DM Anemia Dementia PVD R pleural effusion Mucous plug s/o Cardiac arrest Multiple Pressure ulcers P; Observe off antibiotic Wound care Waiting for placement Subjective ROS Limited/Unobtainable: Yes Neurologic: Reports: other - on restraint Musculoskeletal: Reports: pain Allergies: Coded Allergies: No Known Allergies (Unverified , 07/25/18) Objective Vital Signs Last 24 Hour Vital Signs Date Time Temp Pulse Resp B/P (MAP) Pulse Ox O2 Delivery O2 Flow Rate FiO2 08/28/18 07:22 77 13 40 08/28/18 04:45 69 15 40 08/28/18 04:11 Mechanical Ventilator Mechanical Ventilator 08/28/18 04:00 40 08/28/18 04:00 97.9 68 16 136/51 (79) 100 08/28/18 04:00 68 08/28/18 03:10 66 18 40 08/28/18 00:54 69 18 40 08/28/18 00:00 97.7 71 18 149/73 (98) 100 08/28/18 00:00 Mechanical Ventilator Mechanical Ventilator 08/27/18 23:12 75 18 40 08/27/18 20:50 67 18 40 08/27/18 20:33 144/64 08/27/18 20:00 83 08/27/18 20:00 98.1 83 18 144/64 (90) 95 08/27/18 20:00 Mechanical Ventilator Mechanical Ventilator 08/27/18 20:00 40 08/27/18 18:32 76 18 40 08/27/18 17:22 83 19 40 08/27/18 16:00 Mechanical Ventilator Mechanical Ventilator 08/27/18 16:00 97.7 79 22 122/73 (89) 98 08/27/18 16:00 78 08/27/18 16:00 40 08/27/18 15:26 81 16 40 08/27/18 13:22 78 18 40 08/27/18 12:00 40 08/27/18 12:00 97.9 80 18 120/61 (80) 100 08/27/18 12:00 Mechanical Ventilator Mechanical Ventilator 08/27/18 12:00 84 08/27/18 11:07 75 16 40 Height (Feet): 5 Height (Inches): 2.00 Weight (Pounds): 115 HEENT: status post trach Respiratory/Chest: lungs clear, other - ventilator Cardiovascular: normal rate, other - R arm PICC line, left arm AV shunt Abdomen: soft, non tender, other - GT feeding Extremities: no edema Skin: ulcers, other - sacral, bilateral feet , R leg Neurologic/Psychiatric: alert, responsive Current Medications Medications (Trade) Dose Ordered Sig/Renetta Route PRN Reason Start Time Stop Time Status Last Admin Dose Admin Acetaminophen (Tylenol) 650 mg Q6H PRN GT Mild Pain/Temp > 100.5 08/21/18 16:00 09/18/18 15:59 08/26/18 12:03 Acetaminophen/ Hydrocodone Bitart ([place] 5/325) 1 tab Q6H PRN GT For Pain 08/26/18 18:15 09/02/18 18:14 08/27/18 18:04 Amiodarone HCl (Cordarone) 200 mg EVERY 12 HOURS GT 08/25/18 21:00 09/24/18 20:59 08/27/18 20:33 Apixaban (Eliquis) 2.5 mg BID GT 08/25/18 18:00 09/24/18 17:59 08/27/18 18:05 Artificial Tears ([place]-Tears) 1 drop Q4H PRN BOTH EYES Dry Eyes 08/21/18 15:30 09/19/18 15:29 08/27/18 15:03 Chlorhexidine Gluconate ([place]-Hex 2%) 1 applic DAILY@2000 TOPIC 08/28/18 20:00 09/27/18 19:59 Collagenase (Santyl) 1 applic Q12HR TOPIC 08/21/18 21:00 09/03/18 20:59 08/27/18 20:33 Lansoprazole (Prevacid) 30 mg Q12HR GT 08/25/18 21:00 09/24/18 20:59 08/27/18 20:32 Lorazepam (Ativan) 0.5 mg Q8H PRN ORAL For Anxiety 08/25/18 17:45 09/01/18 17:44 08/27/18 11:33 Minoxidil (Loniten) 2.5 mg Q12HR GT 08/25/18 21:00 09/24/18 20:59 08/27/18 20:33 Sodium Chloride 1,000 ml @ 500 mls/hr Q2H PRN IVLG sbp<90 during hd 08/26/18 17:38 09/25/18 17:37 Sodium Chloride ([place] Nasal [place]) 1 spray Q4H PRN NASAL dry nose 08/21/18 14:30 09/19/18 18:29 08/23/18 11:49 Vitamin D (Vitamin D) 1,000 intlu DAILY GT 08/22/18 09:00 09/06/18 09:59 08/27/18 09:13 Zolpidem Tartrate (Ambien) 5 mg HSPRN PRN GT Insomnia 08/25/18 16:45 09/01/18 16:44 08/27/18 20:32 Freedom Randolph MD Aug 28, 2018 09:40
[2018-08-28] MEDS: Minoxidil 2.5mg tab GT SCH ×2 (10:34→22:20)
[2018-08-28] MEDS: Vitamin D 1000 IU Tab GT SCH (10:34)
[2018-08-28] MEDS: Amiodarone 200mg tab GT SCH ×2 (10:34→22:17)
[2018-08-28] MEDS: Eliquis 2.5mg tablet GT SCH ×2 (10:34→18:02)
--- NOTE | 2018-08-28 11:52 | Nephrology Progress Note ---
Assessment/Plan Assessment Seee below Plan MOF resolving. ESRD HD q MWF Anemia of CKD , DARRYN high dose. Transfuse PRN. A. 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 with LAE. LVEF 65% . On Eliquis. Post trach + PEG . Referred to [facility]. Referral not received there despite numerous requests. Pt' s son agreeable to [facility]. See orders. DW pt's son. Needs extensive Vascular W/U. continuum of care manager not calling me since admission despite numerous messages. Subjective Subjective No c/o. Per pt's son she's very anxious. Objective Objective Last 24 Hour Vital Signs Date Time Temp Pulse Resp B/P (MAP) Pulse Ox O2 Delivery O2 Flow Rate FiO2 08/28/18 10:34 110/69 08/28/18 08:41 86 16 40 08/28/18 08:00 98.2 72 16 110/69 (83) 100 08/28/18 08:00 40 08/28/18 08:00 Mechanical Ventilator Mechanical Ventilator 08/28/18 07:46 73 08/28/18 07:22 77 13 40 08/28/18 04:45 69 15 40 08/28/18 04:11 Mechanical Ventilator Mechanical Ventilator 08/28/18 04:00 40 08/28/18 04:00 97.9 68 16 136/51 (79) 100 08/28/18 04:00 68 08/28/18 03:10 66 18 40 08/28/18 00:54 69 18 40 08/28/18 00:00 97.7 71 18 149/73 (98) 100 08/28/18 00:00 Mechanical Ventilator Mechanical Ventilator 08/27/18 23:12 75 18 40 08/27/18 20:50 67 18 40 08/27/18 20:33 144/64 08/27/18 20:00 83 08/27/18 20:00 98.1 83 18 144/64 (90) 95 08/27/18 20:00 Mechanical Ventilator Mechanical Ventilator 08/27/18 20:00 40 08/27/18 18:32 76 18 40 08/27/18 17:22 83 19 40 08/27/18 16:00 Mechanical Ventilator Mechanical Ventilator 08/27/18 16:00 97.7 79 22 122/73 (89) 98 08/27/18 16:00 78 08/27/18 16:00 40 08/27/18 15:26 81 16 40 08/27/18 13:22 78 18 40 08/27/18 12:00 40 08/27/18 12:00 97.9 80 18 120/61 (80) 100 08/27/18 12:00 Mechanical Ventilator Mechanical Ventilator 08/27/18 12:00 84 Intake and Output 08/27/18 08/28/18 19:00 07:00 Intake Total 610 ml 570 ml Output Total 30 ml Balance 610 ml 540 ml Free Water 130 ml 90 ml Tube Feeding 480 ml 480 ml Stool Total 30 ml # Voids 1 Height (Feet): 5 Height (Inches): 2.00 Weight (Pounds): 115 Objective On vent. Trach clean. Cv IRR/IRR Lungs B ronchi. Abd SNT. BS + New PEG. E Rt. foot diabetic ulcers Chase He MD Aug 28, 2018 11:52
[2018-08-28 12:00] VITALS: BP 121/44
--- NOTE | 2018-08-28 13:09 | Pulmonology Progress Note ---
Assessment/Plan Assessment/Plan Pulmonary Progress Note Assessment/Plan Assessment/Plan IMPRESSION: 1. Previous Hypotension. currently stable 2. Previous Sepsis. 3. Atrial fibrillation. 4. Bradycardia. 5. Diabetes mellitus. 6. End-stage renal disease on dialysis. 7. Left lung collapse. Resolved 8. Respiratory failure. now status post tracheostomy 9. Dysphagia. 10. Dementia. 11. Anemia 12. Pneumonia DISCUSSION: 1. Continue medications. 2. CXR improved 3. Status post tracheostomy 4. S/p G-tube Subjective Interval Events: None reported Constitutional: Reports: no symptoms HEENT: Repors: no symptoms Respiratory: Reports: no symptoms Cardiovascular: Reports: no symptoms Gastrointestinal/Abdominal: Reports: no symptoms Genitourinary: Reports: no symptoms Neurologic: Reports: no symptoms Psychiatric: Reports: no symptoms Allergies: Coded Allergies: No Known Allergies (Unverified , 07/25/18) Objective Vital Signs Noted General Appearance: no acute distress HEENT: normocephalic, status post trach Respiratory/Chest: chest wall non-tender, decreased breath sounds Cardiovascular: normal peripheral pulses, normal rate Abdomen: normal bowel sounds, soft, non tender Laboratory Tests noted Subjective ROS Limited/Unobtainable: No Allergies: Coded Allergies: No Known Allergies (Unverified , 07/25/18) Objective Last 24 Hour Vital Signs Date Time Temp Pulse Resp B/P (MAP) Pulse Ox O2 Delivery O2 Flow Rate FiO2 08/28/18 12:30 79 15 40 08/28/18 12:00 Mechanical Ventilator Mechanical Ventilator 08/28/18 12:00 40 08/28/18 10:45 82 17 40 08/28/18 10:34 110/69 08/28/18 08:41 86 16 40 08/28/18 08:00 98.2 72 16 110/69 (83) 100 08/28/18 08:00 40 08/28/18 08:00 Mechanical Ventilator Mechanical Ventilator 08/28/18 07:46 73 08/28/18 07:22 77 13 40 08/28/18 04:45 69 15 40 08/28/18 04:11 Mechanical Ventilator Mechanical Ventilator 08/28/18 04:00 40 08/28/18 04:00 97.9 68 16 136/51 (79) 100 08/28/18 04:00 68 08/28/18 03:10 66 18 40 08/28/18 00:54 69 18 40 08/28/18 00:00 97.7 71 18 149/73 (98) 100 08/28/18 00:00 Mechanical Ventilator Mechanical Ventilator 08/27/18 23:12 75 18 40 08/27/18 20:50 67 18 40 08/27/18 20:33 144/64 08/27/18 20:00 83 08/27/18 20:00 98.1 83 18 144/64 (90) 95 08/27/18 20:00 Mechanical Ventilator Mechanical Ventilator 08/27/18 20:00 40 08/27/18 18:32 76 18 40 08/27/18 17:22 83 19 40 08/27/18 16:00 Mechanical Ventilator Mechanical Ventilator 08/27/18 16:00 97.7 79 22 122/73 (89) 98 08/27/18 16:00 78 08/27/18 16:00 40 08/27/18 15:26 81 16 40 08/27/18 13:22 78 18 40 Intake and Output 08/27/18 08/28/18 19:00 07:00 Intake Total 610 ml 570 ml Output Total 30 ml Balance 610 ml 540 ml Free Water 130 ml 90 ml Tube Feeding 480 ml 480 ml Stool Total 30 ml # Voids 1 Current Medications Medications (Trade) Dose Ordered Sig/Renetta Route PRN Reason Start Time Stop Time Status Last Admin Dose Admin Acetaminophen (Tylenol) 650 mg Q6H PRN GT Mild Pain/Temp > 100.5 08/21/18 16:00 09/18/18 15:59 08/26/18 12:03 Acetaminophen/ Hydrocodone Bitart ([place] 5/325) 1 tab Q6H PRN GT For Pain 08/26/18 18:15 09/02/18 18:14 08/27/18 18:04 Amiodarone HCl (Cordarone) 200 mg EVERY 12 HOURS GT 08/25/18 21:00 09/24/18 20:59 08/28/18 10:34 Apixaban (Eliquis) 2.5 mg BID GT 08/25/18 18:00 09/24/18 17:59 08/28/18 10:34 Artificial Tears (Akwa-Tears) 1 drop Q4H PRN BOTH EYES Dry Eyes 08/21/18 15:30 09/19/18 15:29 08/27/18 15:03 Chlorhexidine Gluconate (Rylie-Hex 2%) 1 applic DAILY@1999 TOPIC 08/28/18 20:00 09/27/18 19:59 Collagenase (Santyl) 1 applic Q12HR TOPIC 08/21/18 21:00 09/03/18 20:59 08/27/18 20:33 Lansoprazole (Prevacid) 30 mg Q12HR GT 08/25/18 21:00 09/24/18 20:59 08/28/18 10:34 Lorazepam (Ativan) 0.5 mg Q6H PRN ORAL For Anxiety 08/28/18 12:00 09/04/18 11:59 Minoxidil (Loniten) 2.5 mg Q12HR GT 08/25/18 21:00 09/24/18 20:59 08/28/18 10:34 Sodium Chloride 1,000 ml @ 500 mls/hr Q2H PRN IVLG sbp<90 during hd 08/29/18 06:00 08/29/18 23:59 Sodium Chloride ([place] Nasal [place]) 1 spray Q4H PRN NASAL dry nose 08/21/18 14:30 09/19/18 18:29 08/23/18 11:49 Vitamin D (Vitamin D) 1,000 intlu DAILY GT 08/22/18 09:00 09/06/18 09:59 08/28/18 10:34 Zolpidem Tartrate (Ambien) 5 mg HSPRN PRN GT Insomnia 08/25/18 16:45 09/01/18 16:44 08/27/18 20:32 Negro Patel MD Aug 28, 2018 13:09
[2018-08-28] MEDS: Norco 5mg/325mg tab GT PRN (14:03)
--- NOTE | 2018-08-28 14:18 | Cardiology Progress Note ---
Assessment/Plan Problem List: (1) Paroxysmal A-fib (2) Bradycardia (3) Sepsis (4) Hypotension (5) Pneumonia Status: stable, unchanged Status Narrative Pt unable to be weaned from vent - s/p trach, PEG Maintaining SR, on amiodarone Assessment/Plan Continue vent support. Amiodarone 200 mg bid - consider change to qd, maintenance, at dc Subjective ROS Limited/Unobtainable: Yes Subjective Cardiology for Dr. Butler Pt anxious, on vent Objective Last 24 Hour Vital Signs Date Time Temp Pulse Resp B/P (MAP) Pulse Ox O2 Delivery O2 Flow Rate FiO2 08/28/18 12:30 79 15 40 08/28/18 12:00 98.0 73 17 121/44 (69) 98 08/28/18 12:00 Mechanical Ventilator Mechanical Ventilator 08/28/18 12:00 40 08/28/18 10:45 82 17 40 08/28/18 10:34 110/69 08/28/18 08:41 86 16 40 08/28/18 08:00 98.2 72 16 110/69 (83) 100 08/28/18 08:00 40 08/28/18 08:00 Mechanical Ventilator Mechanical Ventilator 08/28/18 07:46 73 08/28/18 07:22 77 13 40 08/28/18 04:45 69 15 40 08/28/18 04:11 Mechanical Ventilator Mechanical Ventilator 08/28/18 04:00 40 08/28/18 04:00 97.9 68 16 136/51 (79) 100 08/28/18 04:00 68 08/28/18 03:10 66 18 40 08/28/18 00:54 69 18 40 08/28/18 00:00 97.7 71 18 149/73 (98) 100 08/28/18 00:00 Mechanical Ventilator Mechanical Ventilator 08/27/18 23:12 75 18 40 08/27/18 20:50 67 18 40 08/27/18 20:33 144/64 08/27/18 20:00 83 08/27/18 20:00 98.1 83 18 144/64 (90) 95 08/27/18 20:00 Mechanical Ventilator Mechanical Ventilator 08/27/18 20:00 40 08/27/18 18:32 76 18 40 08/27/18 17:22 83 19 40 08/27/18 16:00 Mechanical Ventilator Mechanical Ventilator 08/27/18 16:00 97.7 79 22 122/73 (89) 98 08/27/18 16:00 78 08/27/18 16:00 40 08/27/18 15:26 81 16 40 General Appearance: WD/WN, alert, mild distress EENT: PERRL/EOMI Neck: other - trach Rhythm: NSR Cardiovascular: normal rate, regular rhythm, no gallop/murmur Respiratory/Chest: rhonchi - bilaterally Abdomen: non tender, soft, other - + g tube Extremities: no swelling Intake and Output 08/27/18 08/28/18 19:00 07:00 Intake Total 610 ml 570 ml Output Total 30 ml Balance 610 ml 540 ml Free Water 130 ml 90 ml Tube Feeding 480 ml 480 ml Stool Total 30 ml # Voids 1 Jennifer Manuel MD Aug 28, 2018 14:18
[2018-08-28] MEDS: LORazepam 0.5mg tab ORAL PRN ×2 (14:28→22:24)
[2018-08-28 16:00] VITALS: BP 136/73
--- NOTE | 2018-08-28 17:58 | NUR ---
CASE MANAGEMENT: REVIEW 08/27/2018 SI: ESRD ON HD TRACHEOSTOMY 08/15 PEG PLACEMENT 08/17 T 98.1 HR 83 RR 18 B/P 144/64 SATS 95% ON MECH VENT FiO2 40 NA 131 CL 95 BUN 38 CR 2.3 GLUCOSE 127 MG 2.5 IS: MINOXIDIL GT Q12HR PROCRIT SQ MWF ELIQUIS NG BID AMIODARONE GT Q12HR GT FEEDING NEPRO @ 40ML/HR STEP DOWN UNIT STATUS DCP: PATIENT IS FROM [facility] 08/28/2018 SI: ESRD ON HD TRACHEOSTOMY 08/15 PEG PLACEMENT 08/17 T 98 HR 74 RR 17 B/P 121/44 SATS 98% ON MECH VENT FiO2 40 NO LABS TODAY IS: MINOXIDIL GT Q12HR PROCRIT SQ MWF ELIQUIS NG BID AMIODARONE GT Q12HR GT FEEDING NEPRO @ 40ML/HR STEP DOWN UNIT STATUS DCP: PATIENT IS FROM [facility]
--- NOTE | 2018-08-28 19:20 | NUR ---
NURSE NOTES: Report received from BALDO Miller. Pt A/Ox3, air sampling and monitoring shows SR. Pt trach to vent, w/shiley 8. Ventilator settings: AC8 VT450, PEEP 5, FiO2: 40%. Tolerating ventilator settings well. Shows no signs of cardiac or respiratory distress. Pt has GT in place with Nepro running at 40 ml/hr. Rectal tube present and draining well. See WCP for skin alterations. Pt has a FLACO midline and a L AV shunt on her arm. Pt to have dialysis on Wednesday 08/29. Angela spoke with Marly, dialysis has been scheduled. Pt currently on bilateral wrist restraints for pulling of lines. Skin intact, no signs of swelling/bruising/irritation noted. Bed in lowest position, bed alarms placed. Will continue to monitor and with patients plan of care.
--- NOTE | 2018-08-28 19:20 | NUR ---
NURSE NOTES: During hand-off, GT feeding canister was found on top of patient's abdomen by respiratory therapist and GT pump on the floor. No bruising or abrasions noted. No complaints of pain from patient. Patient is on BL soft wrist restraints, but has the tendency to tug on equipment. Dr. Swati MD made aware around 194. Awaiting response. Will continue to monitor.
--- NOTE | 2018-08-28 19:20 | NUR ---
RESPIRATORY NOTE:Arrived in pt's room apprx 1915 and noticed IV pole laying across pt right side of bed onto pt's abdomen with GT pump on floor. Pt was seemingly not harmed or in any distress and vent was still properly connected; adequately ventilating the pt. After assesing the pt and placing the IV pole back in the upright position and picking up the pump, I immediately went to notify the RN [Carmen]. An assesment of the pt was done and equipment was placed back in order by the assigned nurse.
--- NOTE | 2018-08-28 19:20 | NUR ---
HAND-OFF: Report given to Bob Ramos RN.
[2018-08-28 20:00] VITALS: BP 141/76
[2018-08-28] MEDS: Dyna-Hex 2% Top Sol 2oz TOPIC SCH (22:16)
[2018-08-29] VITALS: BP 128/63
[2018-08-29 04:00] VITALS: BP 133/59
--- NOTE | 2018-08-29 07:15 | NUR ---
NURSE NOTES: Received report from Bob Ramos RN. Patient is awake in bed with no s/s of acute distress noted. Sinus rhythm on tool distributor. Patient is non-verbal. Trach-vent settings: Shiley 8, AC 8, Vt 450, PEEP 5, FiO2 40%. Right upper arm midline TKO, patent and intact. Bed locked in lowest position with side rails up x3. Call light left within reach. Will continue to monitor.
[2018-08-29 08:00] VITALS: BP 133/56
[2018-08-29] MEDS: Eliquis 2.5mg tablet GT SCH ×2 (08:49→17:58)
[2018-08-29] MEDS: Vitamin D 1000 IU Tab GT SCH (08:49)
[2018-08-29] MEDS: Amiodarone 200mg tab GT SCH ×2 (08:49→20:40)
[2018-08-29] MEDS: Minoxidil 2.5mg tab GT SCH ×2 (08:49→20:41)
--- NOTE | 2018-08-29 11:08 | Infectious Diseases Prog Note ---
"Assessment/Plan Assessment/Plan antibiotics : none A 1. 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 shock resolved 3. leucocytosis resolved 4. respiratory failure s/p tracheostomy 5. renal failure 6. 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 pleural effusion P 1. observe off antibiotics Subjective ROS Limited/Unobtainable: Yes Allergies: Coded Allergies: No Known Allergies (Unverified , 07/25/18) Objective Vital Signs Last 24 Hour Vital Signs Date Time Temp Pulse Resp B/P (MAP) Pulse Ox O2 Delivery O2 Flow Rate FiO2 08/29/18 09:00 74 14 40 08/29/18 08:49 133/56 08/29/18 08:00 97.2 81 20 133/56 (81) 99 08/29/18 08:00 Mechanical Ventilator Mechanical Ventilator 08/29/18 07:25 78 08/29/18 07:03 66 11 40 08/29/18 06:00 40 08/29/18 05:25 70 14 40 08/29/18 04:00 74 08/29/18 04:00 97.7 63 15 133/59 (83) 100 08/29/18 04:00 Mechanical Ventilator Mechanical Ventilator 08/29/18 04:00 40 08/29/18 03:04 74 18 40 08/29/18 01:13 71 13 40 08/29/18 00:00 Mechanical Ventilator Mechanical Ventilator 08/29/18 00:00 68 08/29/18 00:00 40 08/29/18 00:00 97.6 71 11 128/63 (84) 100 08/28/18 23:15 66 13 40 08/28/18 22:20 141/59 08/28/18 21:52 85 18 40 08/28/18 20:00 98.0 77 18 141/76 (97) 100 08/28/18 20:00 40 08/28/18 20:00 77 08/28/18 20:00 Mechanical Ventilator Mechanical Ventilator 08/28/18 19:18 80 19 40 08/28/18 16:32 72 16 40 08/28/18 16:00 97.8 72 18 136/73 (94) 100 08/28/18 16:00 Mechanical Ventilator Mechanical Ventilator 08/28/18 16:00 40 08/28/18 16:00 71 08/28/18 15:25 67 14 40 08/28/18 12:30 79 15 40 08/28/18 12:00 98.0 73 17 121/44 (69) 98 08/28/18 12:00 Mechanical Ventilator Mechanical Ventilator 08/28/18 12:00 74 08/28/18 12:00 40 Height (Feet): 5 Height (Inches): 2.00 Weight (Pounds): 112 HEENT: status post trach Respiratory/Chest: lungs clear Cardiovascular: normal rate, regular rhythm, no gallop/murmur Abdomen: soft, non tender, other - GT Extremities: no edema, other - right arm PICC Current Medications Medications (Trade) Dose Ordered Sig/Renetta Route PRN Reason Start Time Stop Time Status Last Admin Dose Admin Acetaminophen (Tylenol) 650 mg Q6H PRN GT Mild Pain/Temp > 100.5 08/21/18 16:00 09/18/18 15:59 08/26/18 12:03 Acetaminophen/ Hydrocodone Bitart ([place] 5/325) 1 tab Q6H PRN GT For Pain 08/26/18 18:15 09/02/18 18:14 08/28/18 14:03 Amiodarone HCl (Cordarone) 200 mg EVERY 12 HOURS GT 08/25/18 21:00 09/24/18 20:59 08/29/18 08:49 Apixaban (Eliquis) 2.5 mg BID GT 08/25/18 18:00 09/24/18 17:59 08/29/18 08:49 Artificial Tears (Akwa-Tears) 1 drop Q4H PRN BOTH EYES Dry Eyes 08/21/18 15:30 09/19/18 15:29 08/27/18 15:03 Chlorhexidine Gluconate (Rylie-Hex 2%) 1 applic DAILY@1999 TOPIC 08/28/18 20:00 09/27/18 19:59 08/28/18 22:16 Collagenase (Santyl) 1 applic Q12HR TOPIC 08/21/18 21:00 09/03/18 20:59 08/29/18 08:51 Lansoprazole (Prevacid) 30 mg Q12HR GT 08/25/18 21:00 09/24/18 20:59 08/29/18 08:50 Lorazepam (Ativan) 0.5 mg Q6H PRN ORAL For Anxiety 08/28/18 12:00 09/04/18 11:59 08/28/18 22:24 Minoxidil (Loniten) 2.5 mg Q12HR GT 08/25/18 21:00 09/24/18 20:59 08/29/18 08:49 Sodium Chloride 1,000 ml @ 500 mls/hr Q2H PRN IVLG sbp<90 during hd 08/29/18 06:00 08/29/18 23:59 Sodium Chloride ([place] Nasal [place]) 1 spray Q4H PRN NASAL dry nose 08/21/18 14:30 09/19/18 18:29 08/23/18 11:49 Vitamin D (Vitamin D) 1,000 intlu DAILY GT 08/22/18 09:00 09/06/18 09:59 08/29/18 08:49 Zolpidem Tartrate (Ambien) 5 mg HSPRN PRN GT Insomnia 08/25/18 16:45 09/01/18 16:44 08/27/18 20:32 Omid Morfin MD Aug 29, 2018 11:08"
[2018-08-29 12:00] VITALS: BP 102/63
[2018-08-29] MEDS: LORazepam 0.5mg tab ORAL PRN ×2 (12:46→20:41)
--- NOTE | 2018-08-29 14:13 | Nephrology Progress Note ---
Assessment/Plan Assessment Seee below Plan ESRD HD q MWF Anemia of CKD , DARRYN high dose. Transfuse PRN. A. 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 with LAE. LVEF 65% . On Eliquis. Post trach + PEG . Referred to [facility]. Referral not received there despite numerous requests. Pt' s son agreeable to [facility]. See orders. DW pt's son. Needs extensive Vascular W/U. Subjective Subjective Pt. still "not happy". When observed no signs of distress. Objective Objective Last 24 Hour Vital Signs Date Time Temp Pulse Resp B/P (MAP) Pulse Ox O2 Delivery O2 Flow Rate FiO2 08/29/18 12:35 78 17 40 08/29/18 12:00 40 08/29/18 12:00 Mechanical Ventilator Mechanical Ventilator 08/29/18 12:00 97.6 68 21 102/63 (76) 98 08/29/18 11:15 71 17 40 08/29/18 09:00 74 14 40 08/29/18 08:49 133/56 08/29/18 08:00 97.2 81 20 133/56 (81) 99 08/29/18 08:00 Mechanical Ventilator Mechanical Ventilator 08/29/18 07:25 78 08/29/18 07:03 66 11 40 08/29/18 06:00 40 08/29/18 05:25 70 14 40 08/29/18 04:00 74 08/29/18 04:00 97.7 63 15 133/59 (83) 100 08/29/18 04:00 Mechanical Ventilator Mechanical Ventilator 08/29/18 04:00 40 08/29/18 03:04 74 18 40 08/29/18 01:13 71 13 40 08/29/18 00:00 Mechanical Ventilator Mechanical Ventilator 08/29/18 00:00 68 08/29/18 00:00 40 08/29/18 00:00 97.6 71 11 128/63 (84) 100 08/28/18 23:15 66 13 40 08/28/18 22:20 141/59 08/28/18 21:52 85 18 40 08/28/18 20:00 98.0 77 18 141/76 (97) 100 08/28/18 20:00 40 08/28/18 20:00 77 08/28/18 20:00 Mechanical Ventilator Mechanical Ventilator 08/28/18 19:18 80 19 40 08/28/18 16:32 72 16 40 08/28/18 16:00 97.8 72 18 136/73 (94) 100 08/28/18 16:00 Mechanical Ventilator Mechanical Ventilator 08/28/18 16:00 40 08/28/18 16:00 71 08/28/18 15:25 67 14 40 Intake and Output 08/28/18 08/29/18 19:00 07:00 Intake Total 570 ml 540 ml Output Total 100 ml Balance 470 ml 540 ml Free Water 90 ml Tube Feeding 480 ml 440 ml Other 100 ml Output Urine Total 50 ml Stool Total 50 ml # Voids 1 1 Laboratory Tests 08/29/18 12:15: Activated Partial Thromboplast Time 38H Height (Feet): 5 Height (Inches): 2.00 Weight (Pounds): 112 Objective On vent. Trach clean. Cv IRR/IRR Lungs B ronchi. Abd SNT. BS + PEG. E Rt. foot diabetic ulcers Chase He MD Aug 29, 2018 14:13
[2018-08-29] MEDS: Norco 5mg/325mg tab GT PRN (15:02)
--- NOTE | 2018-08-29 15:03 | Pulmonology Progress Note ---
Assessment/Plan Assessment/Plan 1. Hypotension- improved 2. Sepsis. 3. Atrial fibrillation. 4. Bradycardia. 5. Diabetes mellitus. 6. End-stage renal disease on dialysis. 7. Left lung collapse. s/p bronchoscopy 8. Respiratory failure, acute on chronic s/p trach 9. Dysphagia. 10. Dementia. 11. Anemia 12. Pneumonia PLAN respiratory care noted full vent support monitor imaging for change oxygen taper and monitor needs aspiration precautions keep negative supportive care for now will follow up and recommend for change and monitor as is impression, plan, and exam edited and reviewed in detail care discussed with RN medications/laboratory data/nursing notes reviewed in detail note reviewed and edited care discussed with RN and RT Subjective ROS Limited/Unobtainable: Yes Allergies: Coded Allergies: No Known Allergies (Unverified , 07/25/18) Subjective care noted and reviewed no distress at present events reviewed trach in place Objective Last 24 Hour Vital Signs Date Time Temp Pulse Resp B/P (MAP) Pulse Ox O2 Delivery O2 Flow Rate FiO2 08/29/18 12:35 78 17 40 08/29/18 12:00 40 08/29/18 12:00 Mechanical Ventilator Mechanical Ventilator 08/29/18 12:00 97.6 68 21 102/63 (76) 98 08/29/18 11:38 70 08/29/18 11:15 71 17 40 08/29/18 09:00 74 14 40 08/29/18 08:49 133/56 08/29/18 08:00 97.2 81 20 133/56 (81) 99 08/29/18 08:00 Mechanical Ventilator Mechanical Ventilator 08/29/18 07:25 78 08/29/18 07:03 66 11 40 08/29/18 06:00 40 08/29/18 05:25 70 14 40 08/29/18 04:00 74 08/29/18 04:00 97.7 63 15 133/59 (83) 100 08/29/18 04:00 Mechanical Ventilator Mechanical Ventilator 08/29/18 04:00 40 08/29/18 03:04 74 18 40 08/29/18 01:13 71 13 40 08/29/18 00:00 Mechanical Ventilator Mechanical Ventilator 08/29/18 00:00 68 08/29/18 00:00 40 08/29/18 00:00 97.6 71 11 128/63 (84) 100 08/28/18 23:15 66 13 40 08/28/18 22:20 141/59 08/28/18 21:52 85 18 40 08/28/18 20:00 98.0 77 18 141/76 (97) 100 08/28/18 20:00 40 08/28/18 20:00 77 08/28/18 20:00 Mechanical Ventilator Mechanical Ventilator 08/28/18 19:18 80 19 40 08/28/18 16:32 72 16 40 08/28/18 16:00 97.8 72 18 136/73 (94) 100 08/28/18 16:00 Mechanical Ventilator Mechanical Ventilator 08/28/18 16:00 40 08/28/18 16:00 71 08/28/18 15:25 67 14 40 Intake and Output 08/28/18 08/29/18 19:00 07:00 Intake Total 570 ml 580 ml Output Total 100 ml Balance 470 ml 580 ml Free Water 90 ml Tube Feeding 480 ml 480 ml Other 100 ml Output Urine Total 50 ml Stool Total 50 ml # Voids 1 1 Objective WDWN NAD intubated/trach reduced breath sounds bilaterally without rhonchi or wheeze [id number] without MRG NABS nontender no HSM no CCE poorly responsive Laboratory Tests 08/29/18 12:15: Activated Partial Thromboplast Time 38H Current Medications Medications (Trade) Dose Ordered Sig/Renetta Route PRN Reason Start Time Stop Time Status Last Admin Dose Admin Acetaminophen (Tylenol) 650 mg Q6H PRN GT Mild Pain/Temp > 100.5 08/21/18 16:00 09/18/18 15:59 08/26/18 12:03 Acetaminophen/ Hydrocodone Bitart ([place] 5/325) 1 tab Q6H PRN GT For Pain 08/26/18 18:15 09/02/18 18:14 08/28/18 14:03 Amiodarone HCl (Cordarone) 200 mg EVERY 12 HOURS GT 08/25/18 21:00 09/24/18 20:59 08/29/18 08:49 Apixaban (Eliquis) 2.5 mg BID GT 08/25/18 18:00 09/24/18 17:59 08/29/18 08:49 Artificial Tears ([place]wa-Tears) 1 drop Q4H PRN BOTH EYES Dry Eyes 08/21/18 15:30 1/21/19 15:29 08/27/18 15:03 Chlorhexidine Gluconate (Rylie-Hex 2%) 1 applic DAILY@1999 TOPIC 08/28/18 20:00 09/27/18 19:59 08/28/18 22:16 Collagenase (Santyl) 1 applic Q12HR TOPIC 08/21/18 21:00 09/03/18 20:59 08/29/18 08:51 Lansoprazole (Prevacid) 30 mg Q12HR GT 08/25/18 21:00 09/24/18 20:59 08/29/18 08:50 Lorazepam (Ativan) 0.5 mg Q6H PRN ORAL For Anxiety 08/28/18 12:00 09/04/18 11:59 08/29/18 12:46 Minoxidil (Loniten) 2.5 mg Q12HR GT 08/25/18 21:00 09/24/18 20:59 08/29/18 08:49 Sodium Chloride 1,000 ml @ 500 mls/hr Q2H PRN IVLG sbp<90 during hd 08/29/18 06:00 08/29/18 23:59 Sodium Chloride ([place] Nasal [place]) 1 spray Q4H PRN NASAL dry nose 08/21/18 14:30 09/19/18 18:29 08/23/18 11:49 Vitamin D (Vitamin D) 1,000 intlu DAILY GT 08/22/18 09:00 09/06/18 09:59 08/29/18 08:49 Zolpidem Tartrate (Ambien) 5 mg HSPRN PRN GT Insomnia 08/25/18 16:45 09/01/18 16:44 08/27/18 20:32 Quan Robles MD Aug 29, 2018 15:03
[2018-08-29 16:00] VITALS: BP 119/86
--- NOTE | 2018-08-29 18:03 | Cardiology Progress Note ---
Assessment/Plan Problem List: (1) Paroxysmal A-fib (2) Bradycardia (3) Sepsis (4) Hypotension (5) Pneumonia Status: stable, unchanged Status Narrative Pt overall stable, s/p PEG, trach 2 1/2 L fluid removed at dialysis today. Assessment/Plan Continue vent support. Amiodarone 200 mg bid - consider change to qd, maintenance, at dc Continue eliquis for cva prevention. Plan for transfer to long-term care facility noted Subjective ROS Limited/Unobtainable: No Subjective Cardiology for Dr. Butler Pt seen post-dialysis. She is alert, on vent. c/o pain "all over." Objective Last 24 Hour Vital Signs Date Time Temp Pulse Resp B/P (MAP) Pulse Ox O2 Delivery O2 Flow Rate FiO2 08/29/18 16:00 40 08/29/18 16:00 Mechanical Ventilator Mechanical Ventilator 08/29/18 16:00 98.0 73 23 119/86 (97) 99 08/29/18 15:33 78 08/29/18 14:58 73 16 40 08/29/18 12:35 78 17 40 08/29/18 12:00 40 08/29/18 12:00 Mechanical Ventilator Mechanical Ventilator 08/29/18 12:00 97.6 68 21 102/63 (76) 98 08/29/18 11:38 70 08/29/18 11:15 71 17 40 08/29/18 09:00 74 14 40 08/29/18 08:49 133/56 08/29/18 08:00 97.2 81 20 133/56 (81) 99 08/29/18 08:00 Mechanical Ventilator Mechanical Ventilator 08/29/18 07:25 78 08/29/18 07:03 66 11 40 08/29/18 06:00 40 08/29/18 05:25 70 14 40 08/29/18 04:00 74 08/29/18 04:00 97.7 63 15 133/59 (83) 100 08/29/18 04:00 Mechanical Ventilator Mechanical Ventilator 08/29/18 04:00 40 08/29/18 03:04 74 18 40 08/29/18 01:13 71 13 40 08/29/18 00:00 Mechanical Ventilator Mechanical Ventilator 08/29/18 00:00 68 08/29/18 00:00 40 08/29/18 00:00 97.6 71 11 128/63 (84) 100 08/28/18 23:15 66 13 40 08/28/18 22:20 141/59 08/28/18 21:52 85 18 40 08/28/18 20:00 98.0 77 18 141/76 (97) 100 08/28/18 20:00 40 08/28/18 20:00 77 08/28/18 20:00 Mechanical Ventilator Mechanical Ventilator 08/28/18 19:18 80 19 40 General Appearance: on vent, other - chronically ill appearing EENT: PERRL/EOMI Neck: no JVD - trach , other Rhythm: NSR Cardiovascular: normal rate, regular rhythm Respiratory/Chest: no accessory muscle use, other - minimal rhonchi anteriorly Abdomen: non tender, soft, other - g tube Extremities: trace edema Intake and Output 08/28/18 08/29/18 19:00 07:00 Intake Total 570 ml 580 ml Output Total 100 ml Balance 470 ml 580 ml Free Water 90 ml Tube Feeding 480 ml 480 ml Other 100 ml Output Urine Total 50 ml Stool Total 50 ml # Voids 1 1 Laboratory Tests Test 08/29/18 12:15 Activated Partial Thromboplast Time 38 SEC (23-33) H Jennifer Manuel MD Aug 29, 2018 18:02
--- NOTE | 2018-08-29 19:05 | NUR ---
HAND-OFF: Report given to Bob Ramos RN.
--- NOTE | 2018-08-29 19:06 | NUR ---
NURSE NOTES: Report received from BALDO Miller. 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 Pt trach to vent, w/shiley 8. Ventilator settings: AC8 VT450, PEEP 5, FiO2: 40%. Tolerating ventilator settings well. Shows no signs of cardiac or respiratory distress. Pt has GT in place with Nepro running at 40 ml/hr. Rectal tube present and draining well. See WCP for skin alterations. Pt has a FLACO midline and a L AV shunt on her arm. Pt had dialysis in AM, 2.5 liters removed. Pt currently on bilateral wrist restraints for pulling of lines. Skin intact, no signs of swelling/bruising/irritation noted. Bed in lowest position, bed alarms placed. Call light within reach. Will continue to monitor and with patients plan of care.
[2018-08-29 20:00] VITALS: BP 113/82
[2018-08-29] MEDS: Dyna-Hex 2% Top Sol 2oz TOPIC SCH (20:40)
[2018-08-30] VITALS (7 sets, daily range): BP systolic 114–143; BP diastolic 52–74
[2018-08-30] MEDS: Zolpidem 5mg tab GT PRN ×2 (01:52→21:41)
--- NOTE | 2018-08-30 07:18 | NUR ---
RESPIRATORY NOTE: received pt on vent with current vent settings. pt is trached; josh 8, secured via trach tie/guard. no redness visible around stoma. pt not in resp distress at this time. vent is plugged into red outlet with ambu bag at bedside. will cont to monitor.
--- NOTE | 2018-08-30 07:19 | NUR ---
NURSE NOTES: Received patient from BALDO Morales. Patient VS stable at this time. Patient has high anxiety at this time. Patient has a PRN order for ativan. Will give as needed. Patient has trach to ventilator with setting of AC 8, TV 450, FiO2 40%, and PEEP 5 at this time. Patient tolerating setting with saturation of 93% at this time. Patient has a G tube that is patent and asymptomatic at this time. Patient is running nepro at 40cc/hr with minimal residual. Patient is incontinent of urine at this time. Patient has several wounds. All dressings have been changed during inspector type. Will monitor. Patient has a right upper arm PICC that is patent and saline locked at this time. patient has a left upper arm AV shunt that is patent. Patient has dialysis yesterday with 2.5L out. Patient bed in low position with bed alarm on and call light in reach at this time.
[2018-08-30] MEDS: Amiodarone 200mg tab GT SCH (09:22)
[2018-08-30] MEDS: Vitamin D 1000 IU Tab GT SCH (09:23)
[2018-08-30] MEDS: Eliquis 2.5mg tablet GT SCH ×2 (09:24→17:55)
[2018-08-30] MEDS: Minoxidil 2.5mg tab GT SCH ×2 (09:24→20:33)
[2018-08-30] MEDS: Norco 5mg/325mg tab GT PRN ×2 (09:25→16:53)
[2018-08-30] MEDS: LORazepam 0.5mg tab ORAL PRN ×2 (09:25→16:52)
--- NOTE | 2018-08-30 10:09 | Infectious Diseases Prog Note ---
"Assessment/Plan Assessment/Plan antibiotics : none A 1. 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 shock resolved 3. leucocytosis resolved 4. respiratory failure s/p tracheostomy 5. renal failure 6. 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 pleural effusion P 1. observe off antibiotics Subjective Constitutional: Denies: fever, chills Respiratory: Denies: shortness of breath, dry cough Gastrointestinal/Abdominal: Denies: nausea, vomiting, diarrhea Musculoskeletal: Reports: pain Allergies: Coded Allergies: No Known Allergies (Unverified , 07/25/18) Objective Vital Signs Last 24 Hour Vital Signs Date Time Temp Pulse Resp B/P (MAP) Pulse Ox O2 Delivery O2 Flow Rate FiO2 08/30/18 09:24 117/53 08/30/18 09:05 68 15 40 08/30/18 08:17 72 08/30/18 07:16 84 21 40 08/30/18 06:34 97.4 69 17 114/68 (83) 100 08/30/18 05:05 100 16 40 08/30/18 04:00 Mechanical Ventilator Mechanical Ventilator 08/30/18 04:00 40 08/30/18 04:00 97.4 69 17 114/68 (83) 100 08/30/18 04:00 97.4 69 17 114/68 (83) 100 08/30/18 04:00 72 08/30/18 03:15 76 19 40 08/30/18 00:32 82 18 40 08/30/18 00:00 97.7 81 20 138/74 (95) 99 08/30/18 00:00 40 08/30/18 00:00 Mechanical Ventilator Mechanical Ventilator 08/30/18 00:00 83 08/29/18 22:31 69 19 40 08/29/18 20:59 83 17 40 08/29/18 20:41 113/82 08/29/18 20:00 97.3 93 20 113/82 (92) 97 08/29/18 20:00 85 08/29/18 20:00 Mechanical Ventilator Mechanical Ventilator 08/29/18 20:00 40 08/29/18 19:04 78 20 40 08/29/18 17:29 77 19 40 08/29/18 16:00 40 08/29/18 16:00 Mechanical Ventilator Mechanical Ventilator 08/29/18 16:00 98.0 73 23 119/86 (97) 99 08/29/18 15:33 78 08/29/18 14:58 73 16 40 08/29/18 12:35 78 17 40 08/29/18 12:00 40 08/29/18 12:00 Mechanical Ventilator Mechanical Ventilator 08/29/18 12:00 97.6 68 21 102/63 (76) 98 08/29/18 11:38 70 08/29/18 11:15 71 17 40 Height (Feet): 5 Height (Inches): 2.00 Weight (Pounds): 113 HEENT: status post trach Respiratory/Chest: lungs clear Cardiovascular: normal rate, regular rhythm, no gallop/murmur Abdomen: soft, non tender, other - GT Extremities: no edema, other - right arm PICC Laboratory Tests Test 08/29/18 12:15 Activated Partial Thromboplast Time 38 SEC (23-33) H Current Medications Medications (Trade) Dose Ordered Sig/Renetta Route PRN Reason Start Time Stop Time Status Last Admin Dose Admin Acetaminophen (Tylenol) 650 mg Q6H PRN GT Mild Pain/Temp > 100.5 08/21/18 16:00 09/18/18 15:59 08/26/18 12:03 Acetaminophen/ Hydrocodone Bitart ([place] 5/325) 1 tab Q6H PRN GT For Pain 08/26/18 18:15 09/02/18 18:14 08/30/18 09:25 Amiodarone HCl (Cordarone) 200 mg EVERY 12 HOURS GT 08/25/18 21:00 09/24/18 20:59 08/30/18 09:22 Apixaban (Eliquis) 2.5 mg BID GT 08/25/18 18:00 09/24/18 17:59 08/30/18 09:24 Artificial Tears (Akwa-Tears) 1 drop Q4H PRN BOTH EYES Dry Eyes 08/21/18 15:30 09/19/18 15:29 08/27/18 15:03 Chlorhexidine Gluconate (Rylie-Hex 2%) 1 applic DAILY@1999 TOPIC 08/28/18 20:00 09/27/18 19:59 08/29/18 20:40 Collagenase (Santyl) 1 applic Q12HR TOPIC 08/21/18 21:00 09/03/18 20:59 08/30/18 09:26 Lansoprazole (Prevacid) 30 mg Q12HR GT 08/25/18 21:00 09/24/18 20:59 08/30/18 09:23 Lorazepam (Ativan) 0.5 mg Q6H PRN ORAL For Anxiety 08/28/18 12:00 09/04/18 11:59 08/30/18 09:25 Minoxidil (Loniten) 2.5 mg Q12HR GT 08/25/18 21:00 09/24/18 20:59 08/30/18 09:24 Sodium Chloride ([place] Nasal [place]) 1 spray Q4H PRN NASAL dry nose 08/21/18 14:30 09/19/18 18:29 08/23/18 11:49 Vitamin D (Vitamin D) 1,000 intlu DAILY GT 08/22/18 09:00 09/06/18 09:59 08/30/18 09:23 Zolpidem Tartrate (Ambien) 5 mg HSPRN PRN GT Insomnia 08/25/18 16:45 09/01/18 16:44 08/30/18 01:52 Omid Morfin MD Aug 30, 2018 10:09"
--- NOTE | 2018-08-30 11:09 | Pulmonology Progress Note ---
Assessment/Plan Assessment/Plan 1. Hypotension per history 2. Sepsis. 3. Atrial fibrillation. 4. Bradycardia. 5. Diabetes mellitus. 6. End-stage renal disease on dialysis. 7. Left lung collapse. s/p bronchoscopy 8. Respiratory failure, acute on chronic s/p trach 9. Dysphagia. 10. Dementia. 11. Anemia 12. Pneumonia 13. bilateral effusion PLAN respiratory care without change full vent support monitor imaging for change- ordered oxygen taper and monitor needs aspiration precautions keep negative supportive care for now will follow up and recommend for change and monitor as is impression, plan, and exam edited and reviewed in detail care discussed with RN medications/laboratory data/nursing notes reviewed in detail note reviewed and edited care discussed with RN and RT Subjective ROS Limited/Unobtainable: Yes Allergies: Coded Allergies: No Known Allergies (Unverified , 07/25/18) Subjective care noted and reviewed no distress at present events reviewed and discussed trach in place Objective Last 24 Hour Vital Signs Date Time Temp Pulse Resp B/P (MAP) Pulse Ox O2 Delivery O2 Flow Rate FiO2 08/30/18 10:57 65 12 40 08/30/18 09:24 117/53 08/30/18 09:05 68 15 40 08/30/18 08:17 72 08/30/18 07:16 84 21 40 08/30/18 06:34 97.4 69 17 114/68 (83) 100 08/30/18 05:05 100 16 40 08/30/18 04:00 Mechanical Ventilator Mechanical Ventilator 08/30/18 04:00 40 08/30/18 04:00 97.4 69 17 114/68 (83) 100 08/30/18 04:00 97.4 69 17 114/68 (83) 100 08/30/18 04:00 72 08/30/18 03:15 76 19 40 08/30/18 00:32 82 18 40 08/30/18 00:00 97.7 81 20 138/74 (95) 99 08/30/18 00:00 40 08/30/18 00:00 Mechanical Ventilator Mechanical Ventilator 08/30/18 00:00 83 08/29/18 22:31 69 19 40 08/29/18 20:59 83 17 40 08/29/18 20:41 113/82 08/29/18 20:00 97.3 93 20 113/82 (92) 97 08/29/18 20:00 85 08/29/18 20:00 Mechanical Ventilator Mechanical Ventilator 08/29/18 20:00 40 08/29/18 19:04 78 20 40 08/29/18 17:29 77 19 40 08/29/18 16:00 40 08/29/18 16:00 Mechanical Ventilator Mechanical Ventilator 08/29/18 16:00 98.0 73 23 119/86 (97) 99 08/29/18 15:33 78 08/29/18 14:58 73 16 40 08/29/18 12:35 78 17 40 08/29/18 12:00 40 08/29/18 12:00 Mechanical Ventilator Mechanical Ventilator 08/29/18 12:00 97.6 68 21 102/63 (76) 98 08/29/18 11:38 70 08/29/18 11:15 71 17 40 Intake and Output 08/29/18 08/30/18 18:59 06:59 Intake Total 570 ml 530 ml Output Total 2510 ml Balance -1940 ml 530 ml Tube Feeding 480 ml 480 ml Other 90 ml 50 ml Stool Total 10 ml Hemodialysis UF 2500 ml # Voids 1 Objective WDWN NAD intubated/trach reduced breath sounds bilaterally without rhonchi or wheeze [id number] without MRG NABS nontender no HSM no CCE poorly responsive Laboratory Tests 08/29/18 12:15: Activated Partial Thromboplast Time 38H Current Medications Medications (Trade) Dose Ordered Sig/Renetta Route PRN Reason Start Time Stop Time Status Last Admin Dose Admin Acetaminophen (Tylenol) 650 mg Q6H PRN GT Mild Pain/Temp > 100.5 08/21/18 16:00 09/18/18 15:59 08/26/18 12:03 Acetaminophen/ Hydrocodone Bitart ([place] 5/325) 1 tab Q6H PRN GT For Pain 08/26/18 18:15 09/02/18 18:14 08/30/18 09:25 Amiodarone HCl (Cordarone) 200 mg EVERY 12 HOURS GT 08/25/18 21:00 09/24/18 20:59 08/30/18 09:22 Apixaban (Eliquis) 2.5 mg BID GT 08/25/18 18:00 09/24/18 17:59 08/30/18 09:24 Artificial Tears (Akwa-Tears) 1 drop Q4H PRN BOTH EYES Dry Eyes 08/21/18 15:30 09/19/18 15:29 08/27/18 15:03 Chlorhexidine Gluconate (Rylie-Hex 2%) 1 applic DAILY@1999 TOPIC 08/28/18 20:00 09/27/18 19:59 08/29/18 20:40 Collagenase (Santyl) 1 applic Q12HR TOPIC 08/21/18 21:00 09/03/18 20:59 08/30/18 09:26 Lansoprazole (Prevacid) 30 mg Q12HR GT 08/25/18 21:00 09/24/18 20:59 08/30/18 09:23 Lorazepam (Ativan) 0.5 mg Q6H PRN ORAL For Anxiety 08/28/18 12:00 09/04/18 11:59 08/30/18 09:25 Minoxidil (Loniten) 2.5 mg Q12HR GT 08/25/18 21:00 09/24/18 20:59 08/30/18 09:24 Sodium Chloride ([place] Nasal [place]) 1 spray Q4H PRN NASAL dry nose 08/21/18 14:30 09/19/18 18:29 08/23/18 11:49 Vitamin D (Vitamin D) 1,000 intlu DAILY GT 08/22/18 09:00 09/06/18 09:59 08/30/18 09:23 Zolpidem Tartrate (Ambien) 5 mg HSPRN PRN GT Insomnia 08/25/18 16:45 09/01/18 16:44 08/30/18 01:52 Quan Robles MD Aug 30, 2018 11:09
--- NOTE | 2018-08-30 14:35 | Nephrology Progress Note ---
Assessment/Plan Assessment Seee below Plan ESRD HD q MWF Anemia of CKD , DARRYN high dose. Transfuse PRN. A. 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 with LAE. LVEF 65% . On Eliquis. Post trach + PEG . Referred to [facility]. Referral not received there despite numerous requests. Pt' s son agreeable to [facility]. See orders. DW pt's son. Needs extensive Vascular W/U. DW Certified Surgical Tech/First Assistant Subjective Subjective No new c/o Objective Objective Last 24 Hour Vital Signs Date Time Temp Pulse Resp B/P (MAP) Pulse Ox O2 Delivery O2 Flow Rate FiO2 08/30/18 13:43 67 19 40 08/30/18 12:00 97.5 61 18 131/54 (79) 100 08/30/18 11:34 75 08/30/18 10:57 65 12 40 08/30/18 09:24 117/53 08/30/18 09:05 68 15 40 08/30/18 08:17 72 08/30/18 08:00 96.8 61 16 117/53 (74) 97 08/30/18 07:16 84 21 40 08/30/18 06:34 97.4 69 17 114/68 (83) 100 08/30/18 05:05 100 16 40 08/30/18 04:00 Mechanical Ventilator Mechanical Ventilator 08/30/18 04:00 40 08/30/18 04:00 97.4 69 17 114/68 (83) 100 08/30/18 04:00 97.4 69 17 114/68 (83) 100 08/30/18 04:00 72 08/30/18 03:15 76 19 40 08/30/18 00:32 82 18 40 08/30/18 00:00 97.7 81 20 138/74 (95) 99 08/30/18 00:00 40 08/30/18 00:00 Mechanical Ventilator Mechanical Ventilator 08/30/18 00:00 83 08/29/18 22:31 69 19 40 08/29/18 20:59 83 17 40 08/29/18 20:41 113/82 08/29/18 20:00 97.3 93 20 113/82 (92) 97 08/29/18 20:00 85 08/29/18 20:00 Mechanical Ventilator Mechanical Ventilator 08/29/18 20:00 40 08/29/18 19:04 78 20 40 08/29/18 17:29 77 19 40 08/29/18 16:00 40 08/29/18 16:00 Mechanical Ventilator Mechanical Ventilator 08/29/18 16:00 98.0 73 23 119/86 (97) 99 08/29/18 15:33 78 08/29/18 14:58 73 16 40 Intake and Output 08/29/18 08/30/18 18:59 06:59 Intake Total 570 ml 530 ml Output Total 2510 ml Balance -1940 ml 530 ml Tube Feeding 480 ml 480 ml Other 90 ml 50 ml Stool Total 10 ml Hemodialysis UF 2500 ml # Voids 1 Height (Feet): 5 Height (Inches): 2.00 Weight (Pounds): 113 Objective On vent. Trach clean. Cv IRR/IRR Lungs B ronchi. Abd SNT. BS + PEG. E Rt. foot diabetic ulcers Chase He MD Aug 30, 2018 14:35
--- NOTE | 2018-08-30 15:30 | Cardiology Progress Note ---
Assessment/Plan Problem List: (1) Paroxysmal A-fib (2) Bradycardia (3) Sepsis (4) Hypotension (5) Pneumonia Status: stable, progressing Status Narrative Pt overall stable, s/p PEG, trach Completed iv abx course for e coli UTI. 2 1/2 L fluid removed at dialysis on 08/29 No events overnight. Assessment/Plan Continue vent support. Wean as tolerated Amiodarone 200 mg bid - will change to qd Continue eliquis for cva prevention. Continue dialysis per Dr. He Plan for transfer to long-term care facility in progress Subjective ROS Limited/Unobtainable: Yes Subjective Cardiology for Dr. Butler Pt is sedated, on vent Objective Last 24 Hour Vital Signs Date Time Temp Pulse Resp B/P (MAP) Pulse Ox O2 Delivery O2 Flow Rate FiO2 08/30/18 15:01 65 16 40 08/30/18 13:43 67 19 40 08/30/18 12:00 97.5 61 18 131/54 (79) 100 08/30/18 12:00 Mechanical Ventilator Mechanical Ventilator 08/30/18 11:34 75 08/30/18 10:57 65 12 40 08/30/18 09:24 117/53 08/30/18 09:05 68 15 40 08/30/18 08:17 72 08/30/18 08:00 96.8 61 16 117/53 (74) 97 08/30/18 08:00 Mechanical Ventilator Mechanical Ventilator 08/30/18 07:16 84 21 40 08/30/18 06:34 97.4 69 17 114/68 (83) 100 08/30/18 05:05 100 16 40 08/30/18 04:00 Mechanical Ventilator Mechanical Ventilator 08/30/18 04:00 40 08/30/18 04:00 97.4 69 17 114/68 (83) 100 08/30/18 04:00 97.4 69 17 114/68 (83) 100 08/30/18 04:00 72 08/30/18 03:15 76 19 40 08/30/18 00:32 82 18 40 08/30/18 00:00 97.7 81 20 138/74 (95) 99 08/30/18 00:00 40 08/30/18 00:00 Mechanical Ventilator Mechanical Ventilator 08/30/18 00:00 83 08/29/18 22:31 69 19 40 08/29/18 20:59 83 17 40 08/29/18 20:41 113/82 08/29/18 20:00 97.3 93 20 113/82 (92) 97 08/29/18 20:00 85 08/29/18 20:00 Mechanical Ventilator Mechanical Ventilator 08/29/18 20:00 40 08/29/18 19:04 78 20 40 08/29/18 17:29 77 19 40 08/29/18 16:00 40 08/29/18 16:00 Mechanical Ventilator Mechanical Ventilator 08/29/18 16:00 98.0 73 23 119/86 (97) 99 08/29/18 15:33 78 General Appearance: WD/WN, on vent EENT: PERRL/EOMI Neck: supple, other - trach Rhythm: NSR Cardiovascular: normal rate, regular rhythm, no gallop/murmur Respiratory/Chest: lungs clear - clear anteriorly Abdomen: non tender, soft, other - + g tube Extremities: no swelling, other - L UE av fistula + bruit Intake and Output 08/29/18 08/30/18 18:59 06:59 Intake Total 570 ml 530 ml Output Total 2510 ml Balance -1940 ml 530 ml Tube Feeding 480 ml 480 ml Other 90 ml 50 ml Stool Total 10 ml Hemodialysis UF 2500 ml # Voids 1 Jennifer Manuel MD Aug 30, 2018 15:30
[2018-08-30] MEDS: Artificial Tears 1.4% Op Soln BOTH EYES PRN (16:53)
--- NOTE | 2018-08-30 19:10 | NUR ---
HAND-OFF: Report given to BALDO Spears. Patient VS stable at this time. Patient showing no sign of acute distress at this time.
--- NOTE | 2018-08-30 19:15 | NUR ---
RESPIRATORY NOTE: Received pt on current setting. Pt has small to moderate amount of tobin thick secretions and will sxn prn. Alarms are on and audible. Ambu bag is at the bedside. Vent is plugged into red outlet. Will continue to monitor pt's progress.
--- NOTE | 2018-08-30 19:15 | NUR ---
NURSE NOTES: Report received from BALDO Obrien. Observed pt lying on the bed. Awake and A/O x 3-4, forgetful and confused time to time. Denies pain at this time. Telemonitoring: SR. Pt has trach on vent, shiley 8.0, Ac 8, TD 450, PEEP 5, FIO2 40%. GT intact and patent, running Nepro at 40cc/hr. Rectal tube intact and draining well. Midline on FLACO, intact and patent. L AV shunt, asymptomatic. Bed in the lowest position. Side rails up x3. Call light within reach. Will continue to monitor.
[2018-08-30] MEDS: Dyna-Hex 2% Top Sol 2oz TOPIC SCH (20:33)
[2018-08-31] VITALS: BP 128/54
[2018-08-31] MEDS: Norco 5mg/325mg tab GT PRN ×3 (00:40→22:22)
--- NOTE | 2018-08-31 01:10 | NUR ---
NURSE NOTES: Observed pt lying on bed, awake and disconnect the vent tube. Vent-tube reconnected and pt saturating at 95%, no acute distress noted. Pt c/o headache and prn pain med given. Will continue to monitor.
[2018-08-31 04:00] VITALS: BP 150/55
[2018-08-31 04:56] LABS: EOSINOPHILS % (AUTO) 2.1 % (0.0-3.0); HEMOGLOBIN 8.4 G/DL (12.0-16.0); LYMPHOCYTES % (AUTO) 5.7 % (20.0-45.0); MEAN CORPUSCULAR VOLUME 95 FL (80-99); MONOCYTES % (AUTO) 7.1 % (1.0-10.0); NEUTROPHILS % (AUTO) 83.9 % (45.0-75.0); PLATELET COUNT 398 K/UL (150-450); RED BLOOD COUNT 2.83 M/UL (4.20-5.40); RED CELL DISTRIBUTION WIDTH 19.1 % (11.6-14.8); WHITE BLOOD COUNT 8.9 K/UL (4.8-10.8)
[2018-08-31 05:13] LABS: ANION GAP 8 mmol/L (5-15); BLOOD UREA NITROGEN 48 mg/dL (7-18); CALCIUM 9.2 MG/DL (8.5-10.1); CARBON DIOXIDE 26 MMOL/L (21-32); CHLORIDE 96 MMOL/L (98-107); CREATININE 2.3 MG/DL (0.55-1.30); POTASSIUM 4.2 MMOL/L (3.5-5.1); SODIUM 130 MMOL/L (136-145)
--- NOTE | 2018-08-31 07:40 | NUR ---
HAND-OFF: Report given to BALDO Locke. No acute distress noted.
[2018-08-31 08:00] VITALS: BP 115/96
--- NOTE | 2018-08-31 08:00 | NUR ---
NURSE NOTES: Patient alert&oriented x4. Observed moving devices. Restraints on bilaterally. Active range of motion. No discoloration or swelling noted related to restraints. power and recovery supervisor showing SR. Shiley 8 AC 8 VT 450 Peep 5 FiO2 40%. Lung sounds clear bilaterally. Patient has G-tube. dry and intact dressing. Nepro at 40 cc/hr. Patient has rectal tube. Hanson catheter intact. Multiple skin issues - see WCP. Patient turned and repositioned. R upper arm midline. L AV shunt. Dialysis scheduled and confirmed for today per log. No critical values regards to lab. Patient stable. VSS. No distress noted. HOB elevated, Bed on lowest position, call light within reach, bed alarm on for safety. Will continue plan of care.
[2018-08-31] MEDS: Amiodarone 200mg tab GT SCH (08:40)
--- NOTE | 2018-08-31 09:30 | Diagnostic Imaging Report ---
Indication: Dyspnea Comparison: 08/08/2018 A single view chest radiograph was obtained. Findings: Bilateral pleural effusions suspected. Interstitial edema appears slightly less although the patient has lung volumes are considerably better on the current study. The tracheostomy has been placed and is in good position. No pneumothorax identified. A right midline catheter is noted. NG tube was removed. Surgical clips in the upper abdomen again noted. IMPRESSION: Tracheostomy placement. No pneumothorax. Suggestion of bilateral pleural effusions versus pleural thickening
[2018-08-31] MEDS: Vitamin D 1000 IU Tab GT SCH (09:36)
[2018-08-31] MEDS: Eliquis 2.5mg tablet GT SCH ×2 (09:36→17:50)
[2018-08-31] MEDS: Minoxidil 2.5mg tab GT SCH ×2 (09:36→20:26)
--- NOTE | 2018-08-31 09:47 | NUR ---
CASE MANAGEMENT: REVIEW SI: ESRD ON HD TRACHEOSTOMY 08/15 PEG PLACEMENT 08/17 T 97.5 HR 79 RR 22 BP 150/55 SAT 97% MECH VENT FIO2 40 H/H 8.4/27.0 NA 130 IS: MINOXIDIL GT Q12HR PROCRIT SQ MWF ELIQUIS NG BID AMIODARONE GT Q12HR GT FEEDING NEPRO @ 40ML/HR STEP DOWN UNIT STATUS DCP: PATIENT IS FROM [facility]. REFERRED TO KELLY MARIS
--- NOTE | 2018-08-31 10:15 | Pulmonology Progress Note ---
Assessment/Plan Assessment/Plan IMPRESSION: 1. Hypotension. Resolved. 2. Sepsis. 3. Atrial fibrillation. 4. Bradycardia. 5. Diabetes mellitus. 6. End-stage renal disease on dialysis. 7. Left lung collapse. Resolved 8. Respiratory failure. now status post tracheostomy 9. Dysphagia. 10. Dementia. 11. Anemia 12. Pneumonia DISCUSSION: 1. Continue medications. 2. CXR improved 3. Status post tracheostomy 4. S/p G-tube 5. Continue HD Andres Allan M.D. Subjective Interval Events: None new Constitutional: Reports: no symptoms HEENT: Repors: no symptoms Respiratory: Reports: no symptoms Cardiovascular: Reports: no symptoms Gastrointestinal/Abdominal: Reports: no symptoms Genitourinary: Reports: no symptoms Neurologic: Reports: no symptoms Allergies: Coded Allergies: No Known Allergies (Unverified , 07/25/18) Objective Last 24 Hour Vital Signs Date Time Temp Pulse Resp B/P (MAP) Pulse Ox O2 Delivery O2 Flow Rate FiO2 08/31/18 09:36 115/96 08/31/18 08:46 86 18 40 08/31/18 08:00 Mechanical Ventilator Mechanical Ventilator 08/31/18 08:00 40 08/31/18 08:00 97.5 79 22 115/96 (102) 97 08/31/18 07:02 93 12 40 08/31/18 05:13 80 18 40 08/31/18 04:00 Mechanical Ventilator Mechanical Ventilator 08/31/18 04:00 40 08/31/18 04:00 71 08/31/18 04:00 97.9 70 22 150/55 (86) 97 08/31/18 03:11 75 22 40 08/31/18 00:48 67 18 40 08/31/18 00:00 97.3 66 24 128/54 (78) 97 08/31/18 00:00 Mechanical Ventilator Mechanical Ventilator 08/31/18 00:00 40 08/30/18 22:54 64 16 40 08/30/18 20:44 75 17 40 08/30/18 20:33 148/55 08/30/18 20:00 63 08/30/18 20:00 97.7 69 18 143/52 (82) 95 08/30/18 20:00 Mechanical Ventilator Mechanical Ventilator 08/30/18 20:00 40 08/30/18 19:14 67 17 40 08/30/18 17:07 75 17 40 08/30/18 16:00 97.7 71 18 143/52 (82) 100 08/30/18 15:58 40 08/30/18 15:57 Mechanical Ventilator Mechanical Ventilator 08/30/18 15:33 66 08/30/18 15:01 65 16 40 08/30/18 14:00 40 08/30/18 13:43 67 19 40 08/30/18 12:00 40 08/30/18 12:00 97.5 61 18 131/54 (79) 100 08/30/18 12:00 Mechanical Ventilator Mechanical Ventilator 08/30/18 11:34 75 08/30/18 10:57 65 12 40 Intake and Output 08/30/18 08/31/18 19:00 07:00 Intake Total 600 ml 550 ml Output Total 230 ml Balance 600 ml 320 ml Free Water 120 ml 110 ml Tube Feeding 480 ml 440 ml Output Urine Total 200 ml Stool Total 30 ml # Voids 1 1 # Bowel Movements 50 General Appearance: no acute distress HEENT: normocephalic Respiratory/Chest: chest wall non-tender, lungs clear Cardiovascular: normal peripheral pulses, normal rate Abdomen: normal bowel sounds Laboratory Tests 08/31/18 03:20: White Blood Count 8.9, Red Blood Count 2.83L, Hemoglobin 8.4L, Hematocrit 27.0L , Mean Corpuscular Volume 95, Mean Corpuscular Hemoglobin 29.8, Mean Corpuscular Hemoglobin Concent 31.3L, Red Cell Distribution Width 19.1H, Platelet Count 398, Mean Platelet Volume 5.7L, Neutrophils (%) (Auto) 83.9H, Lymphocytes (%) (Auto) 5.7L, Monocytes (%) (Auto) 7.1, Eosinophils (%) (Auto) 2.1, Basophils (%) (Auto) 1.0, Sodium Level 130L, Potassium Level 4.2, Chloride Level 96L, Carbon Dioxide Level 26, Anion Gap 8, Blood Urea Nitrogen 48H, Creatinine 2.3H, Estimat Glomerular Filtration Rate , Glucose Level 123H, Calcium Level 9.2 Current Medications Medications (Trade) Dose Ordered Sig/Renetta Route PRN Reason Start Time Stop Time Status Last Admin Dose Admin Acetaminophen (Tylenol) 650 mg Q6H PRN GT Mild Pain/Temp > 100.5 08/21/18 16:00 09/18/18 15:59 08/26/18 12:03 Acetaminophen/ Hydrocodone Bitart ([place] 5/325) 1 tab Q6H PRN GT For Pain 08/26/18 18:15 09/02/18 18:14 08/31/18 00:40 Amiodarone HCl (Cordarone) 200 mg DAILY GT 08/31/18 09:00 09/24/18 20:59 Apixaban (Eliquis) 2.5 mg BID GT 08/25/18 18:00 09/24/18 17:59 08/31/18 09:36 Artificial Tears ([place]-Tears) 1 drop Q4H PRN BOTH EYES Dry Eyes 08/21/18 15:30 09/19/18 15:29 08/30/18 16:53 Chlorhexidine Gluconate (Rylie-Hex 2%) 1 applic DAILY@2000 TOPIC 08/28/18 20:00 09/27/18 19:59 08/30/18 20:33 Collagenase (Santyl) 1 applic Q12HR TOPIC 08/21/18 21:00 09/03/18 20:59 08/31/18 09:00 Lansoprazole (Prevacid) 30 mg Q12HR GT 08/25/18 21:00 09/24/18 20:59 08/31/18 09:36 Lorazepam (Ativan) 0.5 mg Q6H PRN ORAL For Anxiety 08/28/18 12:00 09/04/18 11:59 08/30/18 16:52 Minoxidil (Loniten) 2.5 mg Q12HR GT 08/25/18 21:00 09/24/18 20:59 08/31/18 09:36 Sodium Chloride 1,000 ml @ 500 mls/hr Q2H PRN IVLG sbp<90 during hd 08/31/18 14:35 08/31/18 23:59 Sodium Chloride ([place] Nasal [place]) 1 spray Q4H PRN NASAL dry nose 08/21/18 14:30 09/19/18 18:29 08/23/18 11:49 Vitamin D (Vitamin D) 1,000 intlu DAILY GT 08/22/18 09:00 09/06/18 09:59 08/31/18 09:36 Zolpidem Tartrate (Ambien) 5 mg HSPRN PRN GT Insomnia 08/25/18 16:45 09/01/18 16:44 08/30/18 21:41 Andres Allan MD Aug 31, 2018 10:15
[2018-08-31 12:00] VITALS: BP 130/44
--- NOTE | 2018-08-31 12:48 | NUR ---
NURSE NOTES: Patient complaining of severe pain and discomfort. Generalized, Non radiating, body ache on a scale of 1-10 patient stated 8 on paper. [place] administered. Will reassess patient and manage pain.
--- NOTE | 2018-08-31 13:52 | NUR ---
RADIOLOGY DEPT CHEST X-RAY.-P.DYE
--- NOTE | 2018-08-31 14:03 | NUR ---
NURSE NOTES: Report given to Mirna RN using SBAR. VSS. No distress noted.
[2018-08-31 16:00] VITALS: BP 97/50
[2018-08-31] MEDS ORDERED: NS 275ml ONE (16:27)
--- NOTE | 2018-08-31 17:09 | Nephrology Progress Note ---
Assessment/Plan Assessment Seee below Plan ESRD HD q MWF Anemia of CKD , DARRYN high dose. Transfuse PRN. A. 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 with LAE. LVEF 65% . On Eliquis. Post trach + PEG . Referred to [facility]. Referral not received there despite numerous requests. Pt' s son agreeable to [facility]. See orders. DW pt's son. Needs extensive Vascular W/U. 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 Subjective c/o pain Objective Objective Last 24 Hour Vital Signs Date Time Temp Pulse Resp B/P (MAP) Pulse Ox O2 Delivery O2 Flow Rate FiO2 08/31/18 16:56 100 17 40 08/31/18 16:00 97.3 88 14 97/50 (66) 100 08/31/18 16:00 Mechanical Ventilator Mechanical Ventilator 08/31/18 15:08 97 18 40 08/31/18 13:14 76 17 40 08/31/18 12:00 40 08/31/18 12:00 97 08/31/18 12:00 Mechanical Ventilator Mechanical Ventilator 08/31/18 12:00 97.2 92 22 130/44 (72) 96 08/31/18 11:02 94 20 40 08/31/18 09:36 115/96 08/31/18 08:46 86 18 40 08/31/18 08:00 Mechanical Ventilator Mechanical Ventilator 08/31/18 08:00 40 08/31/18 08:00 72 08/31/18 08:00 97.5 79 22 115/96 (102) 97 08/31/18 07:02 93 12 40 08/31/18 05:13 80 18 40 08/31/18 04:00 Mechanical Ventilator Mechanical Ventilator 08/31/18 04:00 40 08/31/18 04:00 71 08/31/18 04:00 97.9 70 22 150/55 (86) 97 08/31/18 03:11 75 22 40 08/31/18 00:48 67 18 40 08/31/18 00:00 97.3 66 24 128/54 (78) 97 08/31/18 00:00 Mechanical Ventilator Mechanical Ventilator 08/31/18 00:00 40 08/30/18 22:54 64 16 40 08/30/18 20:44 75 17 40 08/30/18 20:33 148/55 1/1/19 20:00 63 08/30/18 20:00 97.7 69 18 143/52 (82) 95 08/30/18 20:00 Mechanical Ventilator Mechanical Ventilator 08/30/18 20:00 40 08/30/18 19:14 67 17 40 Intake and Output 08/30/18 08/31/18 18:59 06:59 Intake Total 600 ml 590 ml Output Total 230 ml Balance 600 ml 360 ml Free Water 120 ml 110 ml Tube Feeding 480 ml 480 ml Output Urine Total 200 ml Stool Total 30 ml # Voids 1 1 # Bowel Movements 50 Laboratory Tests 08/31/18 03:20: White Blood Count 8.9, Red Blood Count 2.83L, Hemoglobin 8.4L, Hematocrit 27.0L , Mean Corpuscular Volume 95, Mean Corpuscular Hemoglobin 29.8, Mean Corpuscular Hemoglobin Concent 31.3L, Red Cell Distribution Width 19.1H, Platelet Count 398, Mean Platelet Volume 5.7L, Neutrophils (%) (Auto) 83.9H, Lymphocytes (%) (Auto) 5.7L, Monocytes (%) (Auto) 7.1, Eosinophils (%) (Auto) 2.1, Basophils (%) (Auto) 1.0, Sodium Level 130L, Potassium Level 4.2, Chloride Level 96L, Carbon Dioxide Level 26, Anion Gap 8, Blood Urea Nitrogen 48H, Creatinine 2.3H, Estimat Glomerular Filtration Rate , Glucose Level 123H, Calcium Level 9.2 Height (Feet): 5 Height (Inches): 2.00 Weight (Pounds): 115 Objective On vent. Trach clean. Cv IRR/IRR Lungs B ronchi. Abd SNT. BS + PEG. E Rt. foot diabetic ulcers Chase He MD Aug 31, 2018 17:09
--- NOTE | 2018-08-31 19:20 | NUR ---
NURSE NOTES: Report received from BALDO Dennis. Observed pt lying on the bed, watching TV. Denies pain at this time. A/O x 3-4. SR with telemonitor. pt has trach to vent, Shiley 8, AC8, TD 450, FiO2 40%, PEEP 5. Gtube site intact and patent, running Nepro 40cc/hr. Rectal tube intact and draining well. R UA midline, intact and patent. L AV shunt, asymptomatic. Bed in the lowest position. Call light within reach. Side rails up x3. Will continue to monitor.
[2018-08-31 20:00] VITALS: BP 134/58
[2018-08-31] MEDS: Dyna-Hex 2% Top Sol 2oz TOPIC SCH (20:24)
[2018-08-31] MEDS: Zolpidem 5mg tab GT PRN (22:23)
--- NOTE | 2018-08-31 22:52 | NUR ---
NURSE NOTES: pt c/o pain at right lower abdomen. stated 10/10 on a 0-10 pain scale. Feeding is on hold. PRN pain med given. Pt c/o of insomnia and prn med given. Observed pt sleeping on the bed. VS within normal range. Bed in the lowest position. Side rails up x3. Will continue to monitor.
[2018-09-01] VITALS: BP 134/58
--- NOTE | 2018-09-01 | NUR ---
NURSE NOTES: Observed pt sleeping on the bed. VS within normal range. No acute distress noted at this time. Will continue to monitor.
[2018-09-01 04:00] VITALS: BP 157/54
--- NOTE | 2018-09-01 04:00 | NUR ---
NURSE NOTES: Pt c/o R abdomen pain, 10/10, aching and sharp. Feeding is on hold. Distraction with television, pillow support, position changed, massage done to distract the pain. Will continue to monitor.
--- NOTE | 2018-09-01 06:00 | NUR ---
NURSE NOTES: Observed pt sleeping on the bed. VS within normal range. Will continue to monitor.
--- NOTE | 2018-09-01 06:00 | NUR ---
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 Awaiting call back.
--- NOTE | 2018-09-01 07:28 | NUR ---
RESPIRATORY NOTE: Patient received mechanically ventilated on PB 840 with current ordered vent settings. Patient has trach 8.0 Shiley cuffed that is secured with trach tie and guard. There is bilateral coarse breath sounds present upon auscultation. Moderate amount of thick pale, yellow secretions were suctioned without incident. Vent alarms are functional and audible. Vent is connected to a red outlet and there is an ambu bag available the bedside. Will continue to monitor patient.
--- NOTE | 2018-09-01 07:35 | NUR ---
NURSE NOTES: Received report from BALDO Henderson. Patient is asleep in bed with no s/s of acute distress noted. 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 Patient is non-verbal. Trach-vent settings: Shiley 8, AC 8, Vt 450, PEEP 5, FiO2 40%. Right upper arm midline TKO, patent and intact. Bed locked in lowest position with side rails up x3. Call light left within reach. Will continue to monitor.
--- NOTE | 2018-09-01 07:35 | NUR ---
HAND-OFF: Report given to BALDO Miller. No acute distress noted.
--- NOTE | 2018-09-01 07:44 | Pulmonology Progress Note ---
Assessment/Plan Assessment/Plan IMPRESSION: 1. Hypotension. Resolved. 2. Sepsis. Resolved 3. Atrial fibrillation. 4. Bradycardia. 5. Diabetes mellitus. 6. End-stage renal disease on dialysis. 7. Left lung collapse. Resolved 8. Respiratory failure. now status post tracheostomy 9. Dysphagia. 10. Dementia. 11. Anemia DISCUSSION: 1. Continue medications. 2. CXR improved 3. Status post tracheostomy 4. S/p G-tube 5. Continue HD Andres Allan M.D. Subjective Interval Events: None new; on 40% FiO2 Constitutional: Reports: no symptoms HEENT: Repors: no symptoms Respiratory: Reports: no symptoms Cardiovascular: Reports: no symptoms Gastrointestinal/Abdominal: Reports: no symptoms Allergies: Coded Allergies: No Known Allergies (Unverified , 07/25/18) Objective Last 24 Hour Vital Signs Date Time Temp Pulse Resp B/P (MAP) Pulse Ox O2 Delivery O2 Flow Rate FiO2 09/01/18 05:28 69 17 40 09/01/18 04:00 Mechanical Ventilator Mechanical Ventilator 09/01/18 04:00 108 09/01/18 04:00 40 09/01/18 04:00 97.9 83 19 157/54 (88) 100 09/01/18 03:14 79 18 40 09/01/18 01:14 86 18 40 09/01/18 00:00 70 09/01/18 00:00 Mechanical Ventilator Mechanical Ventilator 09/01/18 00:00 97.8 68 16 134/58 (83) 100 09/01/18 00:00 40 08/31/18 22:58 83 12 40 08/31/18 21:53 82 19 40 08/31/18 20:26 134/58 08/31/18 20:00 Mechanical Ventilator Mechanical Ventilator 08/31/18 20:00 97.5 97 16 134/58 (83) 100 08/31/18 20:00 88 08/31/18 20:00 40 08/31/18 19:30 93 18 40 08/31/18 16:56 100 17 40 08/31/18 16:00 97.3 88 14 97/50 (66) 100 08/31/18 16:00 40 08/31/18 16:00 Mechanical Ventilator Mechanical Ventilator 08/31/18 15:38 102 08/31/18 15:08 97 18 40 08/31/18 13:14 76 17 40 08/31/18 12:00 40 08/31/18 12:00 97 08/31/18 12:00 Mechanical Ventilator Mechanical Ventilator 08/31/18 12:00 97.2 92 22 130/44 (72) 96 08/31/18 11:02 94 20 40 08/31/18 09:36 115/96 08/31/18 08:46 86 18 40 08/31/18 08:00 Mechanical Ventilator Mechanical Ventilator 08/31/18 08:00 40 08/31/18 08:00 72 08/31/18 08:00 97.5 79 22 115/96 (102) 97 Intake and Output 08/31/18 09/01/18 19:00 07:00 Intake Total 460 ml 300 ml Output Total 100 ml 20 ml Balance 360 ml 280 ml Free Water 100 ml 60 ml Tube Feeding 360 ml 240 ml Stool Total 100 ml 20 ml # Voids 1 General Appearance: no acute distress HEENT: normocephalic Respiratory/Chest: chest wall non-tender, lungs clear Cardiovascular: normal peripheral pulses, normal rate Abdomen: normal bowel sounds Current Medications Medications (Trade) Dose Ordered Sig/Renetta Route PRN Reason Start Time Stop Time Status Last Admin Dose Admin Acetaminophen (Tylenol) 650 mg Q6H PRN GT Mild Pain/Temp > 100.5 08/21/18 16:00 09/18/18 15:59 08/26/18 12:03 Acetaminophen/ Hydrocodone Bitart ([place] 5/325) 1 tab Q6H PRN GT For Pain 08/31/18 18:30 09/07/18 18:29 08/31/18 22:22 Amiodarone HCl (Cordarone) 200 mg DAILY GT 08/31/18 09:00 09/24/18 20:59 Apixaban (Eliquis) 2.5 mg BID GT 08/25/18 18:00 09/24/18 17:59 08/31/18 17:50 Artificial Tears (Akwa-Tears) 1 drop Q4H PRN BOTH EYES Dry Eyes 08/21/18 15:30 09/19/18 15:29 08/30/18 16:53 Chlorhexidine Gluconate (Rylie-Hex 2%) 1 applic DAILY@1999 TOPIC 08/28/18 20:00 09/27/18 19:59 08/31/18 20:24 Collagenase (Santyl) 1 applic Q12HR TOPIC 08/21/18 21:00 09/03/18 20:59 08/31/18 20:27 Lansoprazole (Prevacid) 30 mg Q12HR GT 08/25/18 21:00 09/24/18 20:59 08/31/18 20:24 Lorazepam (Ativan) 0.5 mg Q6H PRN ORAL For Anxiety 08/28/18 12:00 09/04/18 11:59 08/30/18 16:52 Minoxidil (Loniten) 2.5 mg Q12HR GT 08/25/18 21:00 09/24/18 20:59 08/31/18 20:26 Sodium Chloride ([place] Nasal [place]) 1 spray Q4H PRN NASAL dry nose 08/21/18 14:30 09/19/18 18:29 08/23/18 11:49 Vitamin D (Vitamin D) 1,000 intlu DAILY GT 08/22/18 09:00 09/06/18 09:59 08/31/18 09:36 Zolpidem Tartrate (Ambien) 5 mg HSPRN PRN GT Insomnia 08/25/18 16:45 09/01/18 16:44 08/31/18 22:23 Andres Allan MD Sep 01, 2018 07:44
[2018-09-01 08:00] VITALS: BP 135/45
[2018-09-01] MEDS: Eliquis 2.5mg tablet GT SCH ×2 (09:04→17:53)
[2018-09-01] MEDS: Vitamin D 1000 IU Tab GT SCH (09:04)
[2018-09-01] MEDS: Minoxidil 2.5mg tab GT SCH ×2 (09:04→20:42)
[2018-09-01] MEDS: Amiodarone 200mg tab GT SCH (09:04)
--- NOTE | 2018-09-01 10:12 | NUR ---
CASE MANAGEMENT: REVIEW SI: ESRD ON HD TRACHEOSTOMY 08/15 PEG PLACEMENT 08/17 T 97.5 HR 108 RR 16 BP 135/45 SAT 97% MECH VENT FIO2 40 H/H 8.4/27.0 NA 130 BUN 48 CR 2.3 IS: MINOXIDIL GT Q12HR PROCRIT SQ MWF ELIQUIS NG BID AMIODARONE GT Q12HR GT FEEDING NEPRO @ 40ML/HR STEP DOWN UNIT STATUS DCP: PATIENT IS FROM [facility]. REFERRED TO [facility]
[2018-09-01 10:22] LABS: HEMOGLOBIN 10.2 G/DL (12.0-16.0); MEAN CORPUSCULAR VOLUME 96 FL (80-99); PLATELET COUNT 456 K/UL (150-450); RED BLOOD COUNT 3.46 M/UL (4.20-5.40); RED CELL DISTRIBUTION WIDTH 18.2 % (11.6-14.8); WHITE BLOOD COUNT 12.7 K/UL (4.8-10.8)
--- NOTE | 2018-09-01 10:29 | GI Progress Note ---
Assessment/Plan Problems: (1) Encounter for PEG (percutaneous endoscopic gastrostomy) ICD Codes: Z43.1 - Encounter for attention to gastrostomy SNOMED: 657324743, 448629634 (2) Severe malnutrition ICD Codes: E43 - Unspecified severe protein-calorie malnutrition SNOMED: 70692239 (3) Dehydration ICD Codes: E86.0 - Dehydration SNOMED: 91015454 Status: unchanged Status Narrative Discussed with Dr. Cox Assessment/Plan Assessment - Dysphagia - Resp failure - ESRD - Anemia - Status post PEG, tolerating feeds Recommendations 1. Abdominal binder. 2. Elevate the head of the bed at all times. 3. G-tube flush. 4. G-tube care. 5. tube feeding later today per RD to goal Monitor H&H, PRN transfusions PPI Electrolyte correction Follow-up labs The patient was seen and examined at bedside and all new and available data was reviewed in the patients chart. I agree with the above findings, impression and plan. (Patient seen earlier today. Signature stamp does not reflect patient encounter time.). - Oc Cox MD Subjective Subjective limited Objective Last 24 Hour Vital Signs Date Time Temp Pulse Resp B/P (MAP) Pulse Ox O2 Delivery O2 Flow Rate FiO2 09/01/18 09:04 135/45 09/01/18 08:00 40 09/01/18 08:00 97.5 73 16 135/45 (75) 97 09/01/18 07:45 70 09/01/18 05:28 69 17 40 09/01/18 04:00 Mechanical Ventilator Mechanical Ventilator 09/01/18 04:00 108 09/01/18 04:00 40 09/01/18 04:00 97.9 83 19 157/54 (88) 100 09/01/18 03:14 79 18 40 09/01/18 01:14 86 18 40 09/01/18 00:00 70 09/01/18 00:00 Mechanical Ventilator Mechanical Ventilator 09/01/18 00:00 97.8 68 16 134/58 (83) 100 09/01/18 00:00 40 08/31/18 22:58 83 12 40 08/31/18 21:53 82 19 40 08/31/18 20:26 134/58 08/31/18 20:00 Mechanical Ventilator Mechanical Ventilator 08/31/18 20:00 97.5 97 16 134/58 (83) 100 08/31/18 20:00 88 08/31/18 20:00 40 08/31/18 19:30 93 18 40 08/31/18 16:56 100 17 40 08/31/18 16:00 97.3 88 14 97/50 (66) 100 08/31/18 16:00 40 08/31/18 16:00 Mechanical Ventilator Mechanical Ventilator 08/31/18 15:38 102 08/31/18 15:08 97 18 40 08/31/18 13:14 76 17 40 08/31/18 12:00 40 08/31/18 12:00 97 08/31/18 12:00 Mechanical Ventilator Mechanical Ventilator 08/31/18 12:00 97.2 92 22 130/44 (72) 96 08/31/18 11:02 94 20 40 Intake and Output 08/31/18 09/01/18 19:00 07:00 Intake Total 460 ml 300 ml Output Total 100 ml 20 ml Balance 360 ml 280 ml Free Water 100 ml 60 ml Tube Feeding 360 ml 240 ml Stool Total 100 ml 20 ml # Voids 1 Laboratory Tests Test 09/01/18 10:10 White Blood Count 12.7 K/UL (4.8-10.8) H Red Blood Count 3.46 M/UL (4.20-5.40) L Hemoglobin 10.2 G/DL (12.0-16.0) L Hematocrit 33.0 % (37.0-47.0) L Mean Corpuscular Volume 96 FL (80-99) Mean Corpuscular Hemoglobin 29.4 PG (27.0-31.0) Mean Corpuscular Hemoglobin Concent 30.8 G/DL (32.0-36.0) L Red Cell Distribution Width 18.2 % (11.6-14.8) H Platelet Count 456 K/UL (150-450) H Mean Platelet Volume 5.4 FL (6.5-10.1) L Neutrophils (%) (Auto) % (45.0-75.0) Lymphocytes (%) (Auto) % (20.0-45.0) Monocytes (%) (Auto) % (1.0-10.0) Eosinophils (%) (Auto) % (0.0-3.0) Basophils (%) (Auto) % (0.0-2.0) Neutrophils % (Manual) Pending Lymphocytes % (Manual) Pending Platelet Estimate Pending Platelet Morphology Pending Sodium Level Pending Potassium Level Pending Chloride Level Pending Carbon Dioxide Level Pending Blood Urea Nitrogen Pending Creatinine Pending Estimat Glomerular Filtration Rate Pending Glucose Level Pending Calcium Level Pending Phosphorus Level Pending Magnesium Level Pending Height (Feet): 5 Height (Inches): 2.00 Weight (Pounds): 115 General Appearance: no apparent distress Cardiovascular: normal rate Respiratory/Chest: normal breath sounds, no respiratory distress Abdominal Exam: normal bowel sounds, non tender, soft, GT site - Clean dry and intact Extremities: non-tender Rita Quintanilla NP Sep 01, 2018 10:29
[2018-09-01 10:32] LABS: ANION GAP 9 mmol/L (5-15); BLOOD UREA NITROGEN 39 mg/dL (7-18); CALCIUM 9.3 MG/DL (8.5-10.1); CARBON DIOXIDE 26 MMOL/L (21-32); CHLORIDE 97 MMOL/L (98-107); CREATININE 2.1 MG/DL (0.55-1.30); POTASSIUM 4.6 MMOL/L (3.5-5.1); SODIUM 132 MMOL/L (136-145)
[2018-09-01 10:39] LABS: PHOSPHORUS 3.7 MG/DL (2.5-4.9)
--- NOTE | 2018-09-01 11:00 | NUR ---
NURSE NOTES:WOUND CARE FOLLOW-UP NOTES:Non-blanchable erythema with induration involving R and L buttocks into both ischial regions(L)11.5cm x (W)15cm. with Full thickness pressure injury at sacrum with tunneled cavity into L buttock 7-12o'clock by 13cm at 10o'clock. Minimal serous non-odorous exudate noted. Multiple ulcerations R lower ext. Full thickness ulcer carmela R tibia with 50% fibrinous yellow slough,50% granular.edges adherent to base of wound .Periwound intact without erythema. Full thickness ulcer medial R tibia(L)5cm x (W)3.9cm ,75% fibrinous yellow slough ,25% granular ,(+) maceration along borders.periwound skin is dry without erythema. No odor noted.Full thickness ulcer posterior R tibia(L)3cm x (W)3.2cm, 60% thick yellow slough ,40% granular,(+) maceration along borders.Periwound skin dryness without erythema or elevation in skin temp.No odor noted. Stable dry eschar R heel. periwound without erythema or fluctuance. All wound prevention protocols in place and continued .Turning scheduled observed as recommended .Pt has an air fluidized mattress on her bed and is being positioned with pillows. Tx.Plan: Continue All wound care orders as per orders . Air fluidized mattress. Reposition at least every 2 hours or as tolerated. Off-load heels with pillow.
--- NOTE | 2018-09-01 11:05 | Infectious Diseases Prog Note ---
Assessment/Plan Assessment/Plan A: Sepsis treated UTI treated Cellulitis of R leg, osteomyelitis treated Hypercapnic respiratory failure ESRD on HD DM Anemia Dementia PVD R pleural effusion Mucous plug s/o Cardiac arrest Multiple Pressure ulcers P; Observe off antibiotic Wound care Waiting for placement Subjective ROS Limited/Unobtainable: Yes Neurologic: Reports: confusion, other - on restraint Allergies: Coded Allergies: No Known Allergies (Unverified , 07/25/18) Objective Vital Signs Last 24 Hour Vital Signs Date Time Temp Pulse Resp B/P (MAP) Pulse Ox O2 Delivery O2 Flow Rate FiO2 09/01/18 09:04 77 19 40 09/01/18 09:04 135/45 09/01/18 08:00 40 09/01/18 08:00 97.5 73 16 135/45 (75) 97 09/01/18 07:45 70 09/01/18 07:23 71 15 40 09/01/18 05:28 69 17 40 09/01/18 04:00 Mechanical Ventilator Mechanical Ventilator 09/01/18 04:00 108 09/01/18 04:00 40 09/01/18 04:00 97.9 83 19 157/54 (88) 100 09/01/18 03:14 79 18 40 09/01/18 01:14 86 18 40 09/01/18 00:00 70 09/01/18 00:00 Mechanical Ventilator Mechanical Ventilator 09/01/18 00:00 97.8 68 16 134/58 (83) 100 09/01/18 00:00 40 08/31/18 22:58 83 12 40 08/31/18 21:53 82 19 40 08/31/18 20:26 134/58 08/31/18 20:00 Mechanical Ventilator Mechanical Ventilator 08/31/18 20:00 97.5 97 16 134/58 (83) 100 08/31/18 20:00 88 08/31/18 20:00 40 08/31/18 19:30 93 18 40 08/31/18 16:56 100 17 40 08/31/18 16:00 97.3 88 14 97/50 (66) 100 08/31/18 16:00 40 08/31/18 16:00 Mechanical Ventilator Mechanical Ventilator 08/31/18 15:38 102 08/31/18 15:08 97 18 40 08/31/18 13:14 76 17 40 08/31/18 12:00 40 08/31/18 12:00 97 08/31/18 12:00 Mechanical Ventilator Mechanical Ventilator 08/31/18 12:00 97.2 92 22 130/44 (72) 96 Height (Feet): 5 Height (Inches): 2.00 Weight (Pounds): 115 General Appearance: no acute distress HEENT: mucous membranes moist Respiratory/Chest: lungs clear, other - on ventilator Cardiovascular: normal rate Abdomen: soft, non tender, other - GT & rectal tube Extremities: no edema Neurologic/Psychiatric: alert, responsive, disoriented Laboratory Tests Test 09/01/18 10:10 White Blood Count 12.7 K/UL (4.8-10.8) H Red Blood Count 3.46 M/UL (4.20-5.40) L Hemoglobin 10.2 G/DL (12.0-16.0) L Hematocrit 33.0 % (37.0-47.0) L Mean Corpuscular Volume 96 FL (80-99) Mean Corpuscular Hemoglobin 29.4 PG (27.0-31.0) Mean Corpuscular Hemoglobin Concent 30.8 G/DL (32.0-36.0) L Red Cell Distribution Width 18.2 % (11.6-14.8) H Platelet Count 456 K/UL (150-450) H Mean Platelet Volume 5.4 FL (6.5-10.1) L Neutrophils (%) (Auto) % (45.0-75.0) Lymphocytes (%) (Auto) % (20.0-45.0) Monocytes (%) (Auto) % (1.0-10.0) Eosinophils (%) (Auto) % (0.0-3.0) Basophils (%) (Auto) % (0.0-2.0) Neutrophils % (Manual) Pending Lymphocytes % (Manual) Pending Platelet Estimate Pending Platelet Morphology Pending Sodium Level 132 MMOL/L (136-145) L Potassium Level 4.6 MMOL/L (3.5-5.1) Chloride Level 97 MMOL/L (98-107) L Carbon Dioxide Level 26 MMOL/L (21-32) Anion Gap 9 mmol/L (5-15) Blood Urea Nitrogen 39 mg/dL (7-18) H Creatinine 2.1 MG/DL (0.55-1.30) H Estimat Glomerular Filtration Rate mL/min (>60) Glucose Level 90 MG/DL (74-106) Calcium Level 9.3 MG/DL (8.5-10.1) Phosphorus Level 3.7 MG/DL (2.5-4.9) Magnesium Level 2.7 MG/DL (1.8-2.4) H Current Medications Medications (Trade) Dose Ordered Sig/Renetta Route PRN Reason Start Time Stop Time Status Last Admin Dose Admin Acetaminophen (Tylenol) 650 mg Q6H PRN GT Mild Pain/Temp > 100.5 08/21/18 16:00 09/18/18 15:59 08/26/18 12:03 Acetaminophen/ Hydrocodone Bitart ([place] 5/325) 1 tab Q6H PRN GT For Pain 08/31/18 18:30 09/07/18 18:29 08/31/18 22:22 Amiodarone HCl (Cordarone) 200 mg DAILY GT 08/31/18 09:00 09/24/18 20:59 09/01/18 09:04 Apixaban (Eliquis) 2.5 mg BID GT 08/25/18 18:00 09/24/18 17:59 09/01/18 09:04 Artificial Tears (Akwa-Tears) 1 drop Q4H PRN BOTH EYES Dry Eyes 08/21/18 15:30 09/19/18 15:29 08/30/18 16:53 Chlorhexidine Gluconate (Rylie-Hex 2%) 1 applic DAILY@1999 TOPIC 08/28/18 20:00 09/27/18 19:59 08/31/18 20:24 Collagenase (Santyl) 1 applic Q12HR TOPIC 08/21/18 21:00 09/03/18 20:59 09/01/18 09:06 Lansoprazole (Prevacid) 30 mg Q12HR GT 08/25/18 21:00 09/24/18 20:59 09/01/18 09:03 Lorazepam (Ativan) 0.5 mg Q6H PRN ORAL For Anxiety 08/28/18 12:00 09/04/18 11:59 08/30/18 16:52 Minoxidil (Loniten) 2.5 mg Q12HR GT 08/25/18 21:00 09/24/18 20:59 09/01/18 09:04 Sodium Chloride ([place] Nasal [place]) 1 spray Q4H PRN NASAL dry nose 08/21/18 14:30 09/19/18 18:29 08/23/18 11:49 Vitamin D (Vitamin D) 1,000 intlu DAILY GT 08/22/18 09:00 09/06/18 09:59 09/01/18 09:04 Zolpidem Tartrate (Ambien) 5 mg HSPRN PRN GT Insomnia 08/25/18 16:45 09/01/18 16:44 08/31/18 22:23 Freedom Randolph MD Sep 01, 2018 11:05
--- NOTE | 2018-09-01 11:15 | NUR ---
NURSE NOTES: LISA Doherty made aware of increased WBC's. No new orders received. Will continue to monitor.
[2018-09-01] MEDS: Norco 5mg/325mg tab GT PRN (11:32)
[2018-09-01 12:00] VITALS: BP 106/27
--- NOTE | 2018-09-01 12:03 | NUR ---
RD ASSESSMENT & RECOMMENDATIONS SEE CARE ACTIVITY FOR COMPLETE ASSESSMENT DAILY ESTIMATED NEEDS: Needs based on Critical care + Advanced Wounds + ESRD/ 60kg 22-30 kcals/kg 1147-9213 total kcals 1.5-2.0 g protein/kg 90-120g g total protein per MD mL/kg total fluid mLs NUTRITION DIAGNOSIS: * Swallowing difficulty R/T respiratory status as evidenced by pt s/p self extubation, s/p code bluce, reintubated, now s/p trach and PEG placement. * Increased kcal/prot needs R/T wound healing as evidenced by pt admitted w/ multiple wounds including stage 4 sacral wound, refer to WC eval. * Altered nutrition related lab values R/T ESRD dx, clinical condition as evidenced by low K (2.7-> wnl), episodes of hypoglycemia (68 69-> now resolved), elev creat (4.6-> 2.1), low Na (132), elev BNP >02419, low BP, off pressor at this time. CURRENT TF:Nepro @40ml/hr + PS BID ENTERAL NUTRITION RECOMMENDATIONS: Nepro @40ml/hr x 24 hrs + Prosource 1pkt BID to provide 960ml, 1728kcal, 78g + 22g prot, 698ml free water 1. Maintain current rate + Prosource 1 pack BID to better meet est protein needs 2. HOB over 30 degrees 3. Decrease water flushes to improve Na level ADDITIONAL RECOMMENDATIONS: * RECALIBRATE BED SCALE POST TRACH AND PEG PROCEDURES * Wound healing- Nephrovite x 1, Continue Afshin 1pkt BID * Monitor for hypoglcyemia * Decrease water flushes to help improve Na level- consistently low Na * Probiotics for loose BM * Monitor lytes daily w/ con't loose stool
[2018-09-01] MEDS: LORazepam 0.5mg tab ORAL PRN (13:17)
--- NOTE | 2018-09-01 13:27 | NUR ---
RESPIRATORY NOTE: Received pt on AC 8, 450VT, 40%, PEEP +5. Pt is trach-dependent w/ a cuffed, Shiley 8 tube. Pt alert/awake, follows commands. B/S geni. rhonchi/diminished, sxn minimal amounts of thin, white secretions. Vent plugged into red outlet, ambubag & backup trach kit at bedside. Pt in no apparent distress at this time. Will continue plan of care.
[2018-09-01 16:00] VITALS: BP 115/31
--- NOTE | 2018-09-01 17:54 | Nephrology Progress Note ---
Assessment/Plan Assessment Seee below Plan ESRD HD q MWF Anemia of CKD , DARRYN high dose. Transfuse PRN. A. 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 with LAE. LVEF 65% . On Eliquis. Post trach + PEG . Referred to [facility]. Referral not received there despite numerous requests. Pt' s son agreeable to [facility]. See orders. DW pt's son. Needs extensive Vascular W/U. 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 Subjective No new c/o Objective Objective Last 24 Hour Vital Signs Date Time Temp Pulse Resp B/P (MAP) Pulse Ox O2 Delivery O2 Flow Rate FiO2 09/01/18 17:05 78 17 40 09/01/18 16:00 40 09/01/18 16:00 97.5 71 16 115/31 (59) 100 09/01/18 15:29 69 13 40 09/01/18 15:24 68 09/01/18 13:26 73 12 40 09/01/18 12:00 Mechanical Ventilator Mechanical Ventilator 09/01/18 12:00 40 09/01/18 12:00 97.2 83 14 106/27 (53) 97 09/01/18 11:57 72 11 40 09/01/18 11:55 77 09/01/18 09:04 77 19 40 09/01/18 09:04 135/45 09/01/18 08:00 40 09/01/18 08:00 Mechanical Ventilator Mechanical Ventilator 09/01/18 08:00 97.5 73 16 135/45 (75) 97 09/01/18 07:45 70 09/01/18 07:23 71 15 40 09/01/18 05:28 69 17 40 09/01/18 04:00 Mechanical Ventilator Mechanical Ventilator 09/01/18 04:00 108 09/01/18 04:00 40 09/01/18 04:00 97.9 83 19 157/54 (88) 100 09/01/18 03:14 79 18 40 09/01/18 01:14 86 18 40 09/01/18 00:00 70 09/01/18 00:00 Mechanical Ventilator Mechanical Ventilator 09/01/18 00:00 97.8 68 16 134/58 (83) 100 09/01/18 00:00 40 08/31/18 22:58 83 12 40 08/31/18 21:53 82 19 40 08/31/18 20:26 134/58 08/31/18 20:00 Mechanical Ventilator Mechanical Ventilator 08/31/18 20:00 97.5 97 16 134/58 (83) 100 08/31/18 20:00 88 08/31/18 20:00 40 08/31/18 19:30 93 18 40 Intake and Output 08/31/18 09/01/18 18:59 06:59 Intake Total 460 ml 340 ml Output Total 100 ml 20 ml Balance 360 ml 320 ml Free Water 100 ml 60 ml Tube Feeding 360 ml 280 ml Stool Total 100 ml 20 ml # Voids 1 Laboratory Tests 09/01/18 10:10: White Blood Count 12.7H, Red Blood Count 3.46L, Hemoglobin 10.2L, Hematocrit 33.0L, Mean Corpuscular Volume 96, Mean Corpuscular Hemoglobin 29.4, Mean Corpuscular Hemoglobin Concent 30.8L, Red Cell Distribution Width 18.2H, Platelet Count 456H, Mean Platelet Volume 5.4L, Neutrophils (%) (Auto) , Lymphocytes (%) (Auto) , Monocytes (%) (Auto) , Eosinophils (%) (Auto) , Basophils (%) (Auto) , Differential Total Cells Counted 100, Neutrophils % ( Manual) 84H, Lymphocytes % (Manual) 6L, Monocytes % (Manual) 6, Eosinophils % ( Manual) 3, Basophils % (Manual) 0, Band Neutrophils 1, Platelet Estimate Adequate, Platelet Morphology Normal, Hypochromasia 1+, Anisocytosis 1+, Sodium Level 132L, Potassium Level 4.6, Chloride Level 97L, Carbon Dioxide Level 26, Anion Gap 9, Blood Urea Nitrogen 39H, Creatinine 2.1H, Estimat Glomerular Filtration Rate , Glucose Level 90, Calcium Level 9.3, Phosphorus Level 3.7, Magnesium Level 2.7H Height (Feet): 5 Height (Inches): 2.00 Weight (Pounds): 115 Objective On vent. Trach clean. Cv IRR/IRR Lungs B ronchi. Abd SNT. BS + PEG. E Rt. foot diabetic ulcers Chase He MD Sep 01, 2018 17:54
--- NOTE | 2018-09-01 19:15 | NUR ---
HAND-OFF: Report given to BALDO Henderson.
--- NOTE | 2018-09-01 19:20 | NUR ---
NURSE NOTES: Report received from BALDO Miller. Observed pt lying on the bed, watching TV. A/O x3, but forgetful. Pt on vent with setting of AC 8, TD 450, PEEP 5, FIO2 40%. Observed pt trying to disconnect vent tube. Tube reconnected and no distress noted, SaO2 96%. Gtube site intact and patent, running Nepro at 40cc/hr, no residual noted. Midline R UA, intact and patent. AV shutn L UA, asymptomatic. Bed in the lowest position. Call light within reach. Side rails up x3. Will continue to monitor.
[2018-09-01 20:00] VITALS: BP 159/83
--- NOTE | 2018-09-01 20:32 | Cardiology Progress Note ---
Assessment/Plan Assessment/Plan 1. Hypotension, possibly sepsis versus volume. 2. Paroxysmal episodes of atrial fibrillation history. 3. Bradycardia secondary to medications, amiodarone possibly. 4. Diabetes mellitus. 5. End-stage renal disease, on hemodialysis. 6. Lung collapse. 7. Respiratory failure, status post intubation. 8. Dysphagia. 9. History of dementia. 10. Pulm htn 11. Pleural effusion 12. cardaic arrest 13. chest wall pain post cpr mostly in sinus now and occasional fib flutter stool ob neg x2 amiod 200 mg daily vent support s/p trach peg done on minoxidl and hold parameter applied on elequis 2.5 mg bid for stroke prevention awaits snf Subjective ROS Limited/Unobtainable: Yes Subjective on the vent, sob Objective Last 24 Hour Vital Signs Date Time Temp Pulse Resp B/P (MAP) Pulse Ox O2 Delivery O2 Flow Rate FiO2 09/01/18 18:40 79 20 40 09/01/18 17:05 78 17 40 09/01/18 16:00 40 09/01/18 16:00 97.5 71 16 115/31 (59) 100 09/01/18 16:00 Mechanical Ventilator Mechanical Ventilator 09/01/18 15:29 69 13 40 09/01/18 15:24 68 09/01/18 13:26 73 12 40 09/01/18 12:00 Mechanical Ventilator Mechanical Ventilator 09/01/18 12:00 40 09/01/18 12:00 97.2 83 14 106/27 (53) 97 09/01/18 11:57 72 11 40 09/01/18 11:55 77 09/01/18 09:04 77 19 40 09/01/18 09:04 135/45 09/01/18 08:00 40 09/01/18 08:00 Mechanical Ventilator Mechanical Ventilator 09/01/18 08:00 97.5 73 16 135/45 (75) 97 09/01/18 07:45 70 09/01/18 07:23 71 15 40 09/01/18 05:28 69 17 40 09/01/18 04:00 Mechanical Ventilator Mechanical Ventilator 09/01/18 04:00 108 09/01/18 04:00 40 09/01/18 04:00 97.9 83 19 157/54 (88) 100 09/01/18 03:14 79 18 40 09/01/18 01:14 86 18 40 09/01/18 00:00 70 09/01/18 00:00 Mechanical Ventilator Mechanical Ventilator 09/01/18 00:00 97.8 68 16 134/58 (83) 100 09/01/18 00:00 40 08/31/18 22:58 83 12 40 08/31/18 21:53 82 19 40 General Appearance: no apparent distress, on vent, patient on isolation Intake and Output 08/31/18 09/01/18 18:59 06:59 Intake Total 460 ml 340 ml Output Total 100 ml 20 ml Balance 360 ml 320 ml Free Water 100 ml 60 ml Tube Feeding 360 ml 280 ml Stool Total 100 ml 20 ml # Voids 1 Laboratory Tests Test 09/01/18 10:10 White Blood Count 12.7 K/UL (4.8-10.8) H Red Blood Count 3.46 M/UL (4.20-5.40) L Hemoglobin 10.2 G/DL (12.0-16.0) L Hematocrit 33.0 % (37.0-47.0) L Mean Corpuscular Volume 96 FL (80-99) Mean Corpuscular Hemoglobin 29.4 PG (27.0-31.0) Mean Corpuscular Hemoglobin Concent 30.8 G/DL (32.0-36.0) L Red Cell Distribution Width 18.2 % (11.6-14.8) H Platelet Count 456 K/UL (150-450) H Mean Platelet Volume 5.4 FL (6.5-10.1) L Neutrophils (%) (Auto) % (45.0-75.0) Lymphocytes (%) (Auto) % (20.0-45.0) Monocytes (%) (Auto) % (1.0-10.0) Eosinophils (%) (Auto) % (0.0-3.0) Basophils (%) (Auto) % (0.0-2.0) Differential Total Cells Counted 100 Neutrophils % (Manual) 84 % (45-75) H Lymphocytes % (Manual) 6 % (20-45) L Monocytes % (Manual) 6 % (1-10) Eosinophils % (Manual) 3 % (0-3) Basophils % (Manual) 0 % (0-2) Band Neutrophils 1 % (0-8) Platelet Estimate Adequate Platelet Morphology Normal Hypochromasia 1+ Anisocytosis 1+ Sodium Level 132 MMOL/L (136-145) L Potassium Level 4.6 MMOL/L (3.5-5.1) Chloride Level 97 MMOL/L (98-107) L Carbon Dioxide Level 26 MMOL/L (21-32) Anion Gap 9 mmol/L (5-15) Blood Urea Nitrogen 39 mg/dL (7-18) H Creatinine 2.1 MG/DL (0.55-1.30) H Estimat Glomerular Filtration Rate mL/min (>60) Glucose Level 90 MG/DL (74-106) Calcium Level 9.3 MG/DL (8.5-10.1) Phosphorus Level 3.7 MG/DL (2.5-4.9) Magnesium Level 2.7 MG/DL (1.8-2.4) H Angelo Butler MD Sep 01, 2018 20:32
[2018-09-01] MEDS: Dyna-Hex 2% Top Sol 2oz TOPIC SCH (20:41)
[2018-09-02] VITALS: BP 157/76
[2018-09-02] MEDS: Zolpidem 5mg tab GT PRN ×2 (01:25→23:13)
--- NOTE | 2018-09-02 01:25 | NUR ---
NURSE NOTES: Observed pt lying on the bed, awake, restless, and c/o insomnia. PRN med given. Position changed done. Distraction measures done. Will continue to monitor.
[2018-09-02 04:00] VITALS: BP 129/50
[2018-09-02 06:38] LABS: BASOPHILS % (AUTO) 0.9 % (0.0-2.0); EOSINOPHILS % (AUTO) 2.4 % (0.0-3.0); HEMOGLOBIN 9.1 G/DL (12.0-16.0); LYMPHOCYTES % (AUTO) 5.2 % (20.0-45.0); MEAN CORPUSCULAR VOLUME 96 FL (80-99); MONOCYTES % (AUTO) 8.9 % (1.0-10.0); NEUTROPHILS % (AUTO) 82.6 % (45.0-75.0); PLATELET COUNT 422 K/UL (150-450); RED BLOOD COUNT 3.02 M/UL (4.20-5.40); WHITE BLOOD COUNT 10.4 K/UL (4.8-10.8)
--- NOTE | 2018-09-02 07:06 | NUR ---
RESPIRATORY NOTE:Received pt on current vent settings. Pt is asleep with no s/s of distress noted. Vent alarms on and audible. Will cont. to monitor pt.
--- NOTE | 2018-09-02 07:20 | NUR ---
NURSE NOTES: Received report RN Regan patient asleep on ventilator ,no distress,rectal tube,G tube feeding-changed pump alarming,anuric.on hemodialysis,head elevated aspiration precaution,on Bilateral wrist restraints-pulling device,continue care close watch
--- NOTE | 2018-09-02 07:30 | NUR ---
HAND-OFF: Report given to BALDO Hdz. Observed pt sleeping on the bed. No acute disterss noted at this time.
[2018-09-02 07:39] LABS: ANION GAP 9 mmol/L (5-15); BLOOD UREA NITROGEN 46 mg/dL (7-18); CALCIUM 9.3 MG/DL (8.5-10.1); CARBON DIOXIDE 25 MMOL/L (21-32); CHLORIDE 98 MMOL/L (98-107); CREATININE 2.4 MG/DL (0.55-1.30); PHOSPHORUS 4.5 MG/DL (2.5-4.9); POTASSIUM 4.9 MMOL/L (3.5-5.1); SODIUM 132 MMOL/L (136-145)
--- NOTE | 2018-09-02 07:42 | Pulmonology Progress Note ---
Assessment/Plan Assessment/Plan IMPRESSION: 1. Hypotension. Resolved. 2. Sepsis. Resolved 3. Atrial fibrillation. 4. Bradycardia. 5. Diabetes mellitus. 6. End-stage renal disease on dialysis. 7. Left lung collapse. Resolved 8. Respiratory failure. now status post tracheostomy 9. Dysphagia. 10. Dementia. 11. Anemia DISCUSSION: 1. Continue medications. 2. CXR improved 3. Status post tracheostomy 4. S/p G-tube 5. Continue HD Andres Allan M.D. Subjective Interval Events: None new reported Constitutional: Reports: no symptoms HEENT: Repors: no symptoms Respiratory: Reports: no symptoms Cardiovascular: Reports: no symptoms Gastrointestinal/Abdominal: Reports: no symptoms Genitourinary: Reports: no symptoms Neurologic: Reports: no symptoms Psychiatric: Reports: no symptoms Allergies: Coded Allergies: No Known Allergies (Unverified , 07/25/18) Objective Last 24 Hour Vital Signs Date Time Temp Pulse Resp B/P (MAP) Pulse Ox O2 Delivery O2 Flow Rate FiO2 09/02/18 05:09 74 12 40 09/02/18 04:00 85 09/02/18 04:00 40 09/02/18 04:00 Mechanical Ventilator Mechanical Ventilator 09/02/18 04:00 97.8 69 14 129/50 (76) 100 09/02/18 02:44 69 12 40 09/02/18 01:00 78 15 40 09/02/18 00:00 40 09/02/18 00:00 69 09/02/18 00:00 97.7 73 15 157/76 (103) 100 09/02/18 00:00 Mechanical Ventilator Mechanical Ventilator 09/01/18 22:48 69 14 40 09/01/18 20:55 79 22 40 09/01/18 20:42 159/83 09/01/18 20:00 88 09/01/18 20:00 40 09/01/18 20:00 Mechanical Ventilator Mechanical Ventilator 09/01/18 20:00 97.8 80 18 159/83 (108) 100 09/01/18 18:40 79 20 40 09/01/18 17:05 78 17 40 09/01/18 16:00 40 09/01/18 16:00 97.5 71 16 115/31 (59) 100 09/01/18 16:00 Mechanical Ventilator Mechanical Ventilator 09/01/18 15:29 69 13 40 09/01/18 15:24 68 09/01/18 13:26 73 12 40 09/01/18 12:00 Mechanical Ventilator Mechanical Ventilator 09/01/18 12:00 40 09/01/18 12:00 97.2 83 14 106/27 (53) 97 09/01/18 11:57 72 11 40 09/01/18 11:55 77 09/01/18 09:04 77 19 40 09/01/18 09:04 135/45 09/01/18 08:00 40 09/01/18 08:00 Mechanical Ventilator Mechanical Ventilator 09/01/18 08:00 97.5 73 16 135/45 (75) 97 09/01/18 07:45 70 Intake and Output 09/01/18 09/02/18 19:00 07:00 Intake Total 190 ml Output Total 25 ml Balance 165 ml Tube Feeding 100 ml Other 90 ml Stool Total 25 ml General Appearance: no acute distress HEENT: normocephalic Respiratory/Chest: chest wall non-tender, lungs clear Cardiovascular: normal peripheral pulses, normal rate Abdomen: normal bowel sounds Laboratory Tests 09/01/18 10:10: White Blood Count 12.7H, Red Blood Count 3.46L, Hemoglobin 10.2L, Hematocrit 33.0L, Mean Corpuscular Volume 96, Mean Corpuscular Hemoglobin 29.4, Mean Corpuscular Hemoglobin Concent 30.8L, Red Cell Distribution Width 18.2H, Platelet Count 456H, Mean Platelet Volume 5.4L, Neutrophils (%) (Auto) , Lymphocytes (%) (Auto) , Monocytes (%) (Auto) , Eosinophils (%) (Auto) , Basophils (%) (Auto) , Differential Total Cells Counted 100, Neutrophils % ( Manual) 84H, Lymphocytes % (Manual) 6L, Monocytes % (Manual) 6, Eosinophils % ( Manual) 3, Basophils % (Manual) 0, Band Neutrophils 1, Platelet Estimate Adequate, Platelet Morphology Normal, Hypochromasia 1+, Anisocytosis 1+, Sodium Level 132L, Potassium Level 4.6, Chloride Level 97L, Carbon Dioxide Level 26, Anion Gap 9, Blood Urea Nitrogen 39H, Creatinine 2.1H, Estimat Glomerular Filtration Rate , Glucose Level 90, Calcium Level 9.3, Phosphorus Level 3.7, Magnesium Level 2.7H 09/02/18 04:00: White Blood Count 10.4, Red Blood Count 3.02L, Hemoglobin 9.1L, Hematocrit 29.0L , Mean Corpuscular Volume 96, Mean Corpuscular Hemoglobin 30.0, Mean Corpuscular Hemoglobin Concent 31.3L, Red Cell Distribution Width 19.0H, Platelet Count 422, Mean Platelet Volume 5.2L, Neutrophils (%) (Auto) 82.6H, Lymphocytes (%) (Auto) 5.2L, Monocytes (%) (Auto) 8.9, Eosinophils (%) (Auto) 2.4, Basophils (%) (Auto) 0.9, Sodium Level 132L, Potassium Level 4.9, Chloride Level 98, Carbon Dioxide Level 25, Anion Gap 9, Blood Urea Nitrogen 46H, Creatinine 2.4H, Estimat Glomerular Filtration Rate , Glucose Level 81, Calcium Level 9.3, Phosphorus Level 4.5, Magnesium Level 3.0H Current Medications Medications (Trade) Dose Ordered Sig/Renetta Route PRN Reason Start Time Stop Time Status Last Admin Dose Admin Acetaminophen (Tylenol) 650 mg Q6H PRN GT Mild Pain/Temp > 100.5 08/21/18 16:00 09/18/18 15:59 08/26/18 12:03 Acetaminophen/ Hydrocodone Bitart (Arnold 5/325) 1 tab Q6H PRN GT For Pain 08/31/18 18:30 09/07/18 18:29 09/01/18 11:32 Amiodarone HCl (Cordarone) 200 mg DAILY GT 08/31/18 09:00 09/24/18 20:59 09/01/18 09:04 Apixaban (Eliquis) 2.5 mg BID GT 08/25/18 18:00 09/24/18 17:59 09/01/18 17:53 Artificial Tears (Akwa-Tears) 1 drop Q4H PRN BOTH EYES Dry Eyes 08/21/18 15:30 09/19/18 15:29 08/30/18 16:53 Chlorhexidine Gluconate (Rylie-Hex 2%) 1 applic DAILY@2000 TOPIC 08/28/18 20:00 09/27/18 19:59 09/01/18 20:41 Collagenase (Santyl) 1 applic Q12HR TOPIC 08/21/18 21:00 09/03/18 20:59 09/01/18 20:42 Lansoprazole (Prevacid) 30 mg Q12HR GT 08/25/18 21:00 09/24/18 20:59 09/01/18 20:42 Lorazepam (Ativan) 0.5 mg Q6H PRN ORAL For Anxiety 08/28/18 12:00 09/04/18 11:59 09/01/18 13:17 Minoxidil (Loniten) 2.5 mg Q12HR GT 08/25/18 21:00 09/24/18 20:59 09/01/18 20:42 Sodium Chloride 1,000 ml @ 500 mls/hr Q2H PRN IVLG sbp<90 during hd 09/02/18 06:00 09/02/18 23:59 Sodium Chloride (Monarch Nasal [place]) 1 spray Q4H PRN NASAL dry nose 08/21/18 14:30 09/19/18 18:29 08/23/18 11:49 Vitamin D (Vitamin D) 1,000 intlu DAILY GT 08/22/18 09:00 09/06/18 09:59 09/01/18 09:04 Zolpidem Tartrate (Ambien) 5 mg HSPRN PRN GT Insomnia 09/01/18 20:45 09/08/18 20:44 09/02/18 01:25 Andres Allan MD Sep 02, 2018 07:42
[2018-09-02 07:45] VITALS: BP 120/57
--- NOTE | 2018-09-02 08:13 | Nephrology Progress Note ---
Assessment/Plan Assessment Seee below Plan ESRD HD q MWF Anemia of CKD , DARRYN high dose. Transfuse PRN. A. 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 with LAE. LVEF 65% . On Eliquis. Post trach + PEG . Referred to [facility]. Referral not received there despite numerous requests. Pt' s son agreeable to [facility]. See orders. Still needs extensive Vascular W/U. Subjective Subjective No new c/o Objective Objective Last 24 Hour Vital Signs Date Time Temp Pulse Resp B/P (MAP) Pulse Ox O2 Delivery O2 Flow Rate FiO2 09/02/18 05:09 74 12 40 09/02/18 04:00 85 09/02/18 04:00 40 09/02/18 04:00 Mechanical Ventilator Mechanical Ventilator 09/02/18 04:00 97.8 69 14 129/50 (76) 100 09/02/18 02:44 69 12 40 09/02/18 01:00 78 15 40 09/02/18 00:00 40 09/02/18 00:00 69 09/02/18 00:00 97.7 73 15 157/76 (103) 100 09/02/18 00:00 Mechanical Ventilator Mechanical Ventilator 09/01/18 22:48 69 14 40 09/01/18 20:55 79 22 40 09/01/18 20:42 159/83 09/01/18 20:00 88 09/01/18 20:00 40 09/01/18 20:00 Mechanical Ventilator Mechanical Ventilator 09/01/18 20:00 97.8 80 18 159/83 (108) 100 09/01/18 18:40 79 20 40 09/01/18 17:05 78 17 40 09/01/18 16:00 40 09/01/18 16:00 97.5 71 16 115/31 (59) 100 09/01/18 16:00 Mechanical Ventilator Mechanical Ventilator 09/01/18 15:29 69 13 40 09/01/18 15:24 68 09/01/18 13:26 73 12 40 09/01/18 12:00 Mechanical Ventilator Mechanical Ventilator 09/01/18 12:00 40 09/01/18 12:00 97.2 83 14 106/27 (53) 97 09/01/18 11:57 72 11 40 09/01/18 11:55 77 09/01/18 09:04 77 19 40 09/01/18 09:04 135/45 Intake and Output 09/01/18 09/02/18 19:00 07:00 Intake Total 190 ml Output Total 25 ml Balance 165 ml Tube Feeding 100 ml Other 90 ml Stool Total 25 ml Laboratory Tests 09/01/18 10:10: White Blood Count 12.7H, Red Blood Count 3.46L, Hemoglobin 10.2L, Hematocrit 33.0L, Mean Corpuscular Volume 96, Mean Corpuscular Hemoglobin 29.4, Mean Corpuscular Hemoglobin Concent 30.8L, Red Cell Distribution Width 18.2H, Platelet Count 456H, Mean Platelet Volume 5.4L, Neutrophils (%) (Auto) , Lymphocytes (%) (Auto) , Monocytes (%) (Auto) , Eosinophils (%) (Auto) , Basophils (%) (Auto) , Differential Total Cells Counted 100, Neutrophils % ( Manual) 84H, Lymphocytes % (Manual) 6L, Monocytes % (Manual) 6, Eosinophils % ( Manual) 3, Basophils % (Manual) 0, Band Neutrophils 1, Platelet Estimate Adequate, Platelet Morphology Normal, Hypochromasia 1+, Anisocytosis 1+, Sodium Level 132L, Potassium Level 4.6, Chloride Level 97L, Carbon Dioxide Level 26, Anion Gap 9, Blood Urea Nitrogen 39H, Creatinine 2.1H, Estimat Glomerular Filtration Rate , Glucose Level 90, Calcium Level 9.3, Phosphorus Level 3.7, Magnesium Level 2.7H 09/02/18 04:00: White Blood Count 10.4, Red Blood Count 3.02L, Hemoglobin 9.1L, Hematocrit 29.0L , Mean Corpuscular Volume 96, Mean Corpuscular Hemoglobin 30.0, Mean Corpuscular Hemoglobin Concent 31.3L, Red Cell Distribution Width 19.0H, Platelet Count 422, Mean Platelet Volume 5.2L, Neutrophils (%) (Auto) 82.6H, Lymphocytes (%) (Auto) 5.2L, Monocytes (%) (Auto) 8.9, Eosinophils (%) (Auto) 2.4, Basophils (%) (Auto) 0.9, Sodium Level 132L, Potassium Level 4.9, Chloride Level 98, Carbon Dioxide Level 25, Anion Gap 9, Blood Urea Nitrogen 46H, Creatinine 2.4H, Estimat Glomerular Filtration Rate , Glucose Level 81, Calcium Level 9.3, Phosphorus Level 4.5, Magnesium Level 3.0H Height (Feet): 5 Height (Inches): 2.00 Weight (Pounds): 115 Objective On vent. Trach clean. Cv IRR/IRR Lungs B ronchi. Abd SNT. BS + PEG. E Rt. foot diabetic ulcers Chase He MD Sep 02, 2018 08:13
[2018-09-02] MEDS: Amiodarone 200mg tab GT SCH (08:43)
[2018-09-02] MEDS: Eliquis 2.5mg tablet GT SCH ×2 (08:44→17:16)
[2018-09-02] MEDS: Vitamin D 1000 IU Tab GT SCH (08:44)
[2018-09-02] MEDS: Minoxidil 2.5mg tab GT SCH ×2 (08:45→20:45)
--- NOTE | 2018-09-02 09:00 | NUR ---
NURSE NOTES: Report received from BALDO Hdz. Patient seen in bed in butler position. Alert, responsive, no S/Sx of pain noted. Patient is on vent with previous setting, SpO2 97%, no respiratory distress is noted at this time. Noted with AV shunt to left arm, Mid line to right upper arm, and is intact. Wrist restrain is present secondary to patient attempting to pull out trach and other tubings. No redness noted to wrist area, pulse is palpable. Rectal tube is intact. patient is on GT formula of nephro, running at 40cc/HR. GT site is intact. bed is in lowest position, call light is within reach, will continue to monitor.
--- NOTE | 2018-09-02 09:00 | NUR ---
HAND-OFF: Report given to BALDO Espinoza.
[2018-09-02] MEDS: Norco 5mg/325mg tab GT PRN ×2 (11:59→18:19)
[2018-09-02 12:00] VITALS: BP 108/39
--- NOTE | 2018-09-02 12:16 | GI Progress Note ---
Assessment/Plan Problems: (1) Encounter for PEG (percutaneous endoscopic gastrostomy) ICD Codes: Z43.1 - Encounter for attention to gastrostomy SNOMED: 053296975, 149667761 (2) Severe malnutrition ICD Codes: E43 - Unspecified severe protein-calorie malnutrition SNOMED: 65154451 (3) Dehydration ICD Codes: E86.0 - Dehydration SNOMED: 02506297 Status: unchanged Status Narrative Discussed with Dr. Cox Assessment/Plan Assessment - Dysphagia - Resp failure - ESRD - Anemia - Status post PEG, tolerating feeds Recommendations 1. Abdominal binder. 2. Elevate the head of the bed at all times. 3. G-tube flush. 4. G-tube care. 5. tube feeding later today per RD to goal Monitor H&H, PRN transfusions PPI Electrolyte correction Follow-up labs The patient was seen and examined at bedside and all new and available data was reviewed in the patients chart. I agree with the above findings, impression and plan. (Patient seen earlier today. Signature stamp does not reflect patient encounter time.). - Oc Cox MD Subjective Subjective limited Objective Last 24 Hour Vital Signs Date Time Temp Pulse Resp B/P (MAP) Pulse Ox O2 Delivery O2 Flow Rate FiO2 09/02/18 10:59 82 12 40 09/02/18 08:45 120/57 09/02/18 08:30 72 12 40 09/02/18 08:00 Mechanical Ventilator Mechanical Ventilator 09/02/18 08:00 40 09/02/18 07:45 97.8 86 16 120/57 (78) 100 09/02/18 07:45 69 09/02/18 07:05 77 14 40 09/02/18 05:09 74 12 40 09/02/18 04:00 85 09/02/18 04:00 40 09/02/18 04:00 Mechanical Ventilator Mechanical Ventilator 09/02/18 04:00 97.8 69 14 129/50 (76) 100 09/02/18 02:44 69 12 40 09/02/18 01:00 78 15 40 09/02/18 00:00 40 09/02/18 00:00 69 09/02/18 00:00 97.7 73 15 157/76 (103) 100 09/02/18 00:00 Mechanical Ventilator Mechanical Ventilator 09/01/18 22:48 69 14 40 09/01/18 20:55 79 22 40 09/01/18 20:42 159/83 09/01/18 20:00 88 09/01/18 20:00 40 09/01/18 20:00 Mechanical Ventilator Mechanical Ventilator 09/01/18 20:00 97.8 80 18 159/83 (108) 100 09/01/18 18:40 79 20 40 09/01/18 17:05 78 17 40 09/01/18 16:00 40 09/01/18 16:00 97.5 71 16 115/31 (59) 100 09/01/18 16:00 Mechanical Ventilator Mechanical Ventilator 09/01/18 15:29 69 13 40 09/01/18 15:24 68 09/01/18 13:26 73 12 40 Intake and Output 09/01/18 09/02/18 19:00 07:00 Intake Total 215 ml 375 ml Output Total 25 ml 0 ml Balance 190 ml 375 ml Free Water 90 ml Tube Feeding 125 ml 285 ml Other 90 ml Stool Total 25 ml 0 ml # Voids 1 Laboratory Tests Test 09/02/18 04:00 White Blood Count 10.4 K/UL (4.8-10.8) Red Blood Count 3.02 M/UL (4.20-5.40) L Hemoglobin 9.1 G/DL (12.0-16.0) L Hematocrit 29.0 % (37.0-47.0) L Mean Corpuscular Volume 96 FL (80-99) Mean Corpuscular Hemoglobin 30.0 PG (27.0-31.0) Mean Corpuscular Hemoglobin Concent 31.3 G/DL (32.0-36.0) L Red Cell Distribution Width 19.0 % (11.6-14.8) H Platelet Count 422 K/UL (150-450) Mean Platelet Volume 5.2 FL (6.5-10.1) L Neutrophils (%) (Auto) 82.6 % (45.0-75.0) H Lymphocytes (%) (Auto) 5.2 % (20.0-45.0) L Monocytes (%) (Auto) 8.9 % (1.0-10.0) Eosinophils (%) (Auto) 2.4 % (0.0-3.0) Basophils (%) (Auto) 0.9 % (0.0-2.0) Sodium Level 132 MMOL/L (136-145) L Potassium Level 4.9 MMOL/L (3.5-5.1) Chloride Level 98 MMOL/L (98-107) Carbon Dioxide Level 25 MMOL/L (21-32) Anion Gap 9 mmol/L (5-15) Blood Urea Nitrogen 46 mg/dL (7-18) H Creatinine 2.4 MG/DL (0.55-1.30) H Estimat Glomerular Filtration Rate mL/min (>60) Glucose Level 81 MG/DL (74-106) Calcium Level 9.3 MG/DL (8.5-10.1) Phosphorus Level 4.5 MG/DL (2.5-4.9) Magnesium Level 3.0 MG/DL (1.8-2.4) H Height (Feet): 5 Height (Inches): 2.00 Weight (Pounds): 114 General Appearance: no apparent distress Cardiovascular: normal rate Respiratory/Chest: normal breath sounds, no respiratory distress, other - Mechanical ventilator Abdominal Exam: normal bowel sounds, non tender, soft, GT site - Clean dry and intact Extremities: non-tender Rita Quintanilla NP Sep 02, 2018 12:16
--- NOTE | 2018-09-02 12:38 | Infectious Diseases Prog Note ---
Assessment/Plan Assessment/Plan A: Sepsis treated UTI treated Cellulitis of R leg, osteomyelitis treated Hypercapnic respiratory failure ESRD on HD DM Anemia Dementia PVD R pleural effusion Mucous plug s/o Cardiac arrest Multiple Pressure ulcers P; Observe off antibiotic Wound care Waiting for placement Subjective Neurologic: Reports: confusion, other - on restraint Allergies: Coded Allergies: No Known Allergies (Unverified , 07/25/18) Objective Vital Signs Last 24 Hour Vital Signs Date Time Temp Pulse Resp B/P (MAP) Pulse Ox O2 Delivery O2 Flow Rate FiO2 09/02/18 12:00 97.8 97 24 108/39 (62) 96 09/02/18 12:00 Mechanical Ventilator Mechanical Ventilator 09/02/18 12:00 40 09/02/18 11:53 94 09/02/18 10:59 82 12 40 09/02/18 08:45 120/57 09/02/18 08:30 72 12 40 09/02/18 08:00 Mechanical Ventilator Mechanical Ventilator 09/02/18 08:00 40 09/02/18 07:45 97.8 86 16 120/57 (78) 100 09/02/18 07:45 69 09/02/18 07:05 77 14 40 09/02/18 05:09 74 12 40 09/02/18 04:00 85 09/02/18 04:00 40 09/02/18 04:00 Mechanical Ventilator Mechanical Ventilator 09/02/18 04:00 97.8 69 14 129/50 (76) 100 09/02/18 02:44 69 12 40 09/02/18 01:00 78 15 40 09/02/18 00:00 40 09/02/18 00:00 69 09/02/18 00:00 97.7 73 15 157/76 (103) 100 09/02/18 00:00 Mechanical Ventilator Mechanical Ventilator 09/01/18 22:48 69 14 40 09/01/18 20:55 79 22 40 09/01/18 20:42 159/83 09/01/18 20:00 88 09/01/18 20:00 40 09/01/18 20:00 Mechanical Ventilator Mechanical Ventilator 09/01/18 20:00 97.8 80 18 159/83 (108) 100 09/01/18 18:40 79 20 40 09/01/18 17:05 78 17 40 09/01/18 16:00 40 09/01/18 16:00 97.5 71 16 115/31 (59) 100 09/01/18 16:00 Mechanical Ventilator Mechanical Ventilator 09/01/18 15:29 69 13 40 09/01/18 15:24 68 09/01/18 13:26 73 12 40 Height (Feet): 5 Height (Inches): 2.00 Weight (Pounds): 114 HEENT: status post trach Respiratory/Chest: lungs clear, other - on ventilator Cardiovascular: normal rate, other - R arm PICC line Abdomen: soft, non tender, other - GT feeding Extremities: no edema Neurologic/Psychiatric: other - sleeping Laboratory Tests Test 09/02/18 04:00 White Blood Count 10.4 K/UL (4.8-10.8) Red Blood Count 3.02 M/UL (4.20-5.40) L Hemoglobin 9.1 G/DL (12.0-16.0) L Hematocrit 29.0 % (37.0-47.0) L Mean Corpuscular Volume 96 FL (80-99) Mean Corpuscular Hemoglobin 30.0 PG (27.0-31.0) Mean Corpuscular Hemoglobin Concent 31.3 G/DL (32.0-36.0) L Red Cell Distribution Width 19.0 % (11.6-14.8) H Platelet Count 422 K/UL (150-450) Mean Platelet Volume 5.2 FL (6.5-10.1) L Neutrophils (%) (Auto) 82.6 % (45.0-75.0) H Lymphocytes (%) (Auto) 5.2 % (20.0-45.0) L Monocytes (%) (Auto) 8.9 % (1.0-10.0) Eosinophils (%) (Auto) 2.4 % (0.0-3.0) Basophils (%) (Auto) 0.9 % (0.0-2.0) Sodium Level 132 MMOL/L (136-145) L Potassium Level 4.9 MMOL/L (3.5-5.1) Chloride Level 98 MMOL/L (98-107) Carbon Dioxide Level 25 MMOL/L (21-32) Anion Gap 9 mmol/L (5-15) Blood Urea Nitrogen 46 mg/dL (7-18) H Creatinine 2.4 MG/DL (0.55-1.30) H Estimat Glomerular Filtration Rate mL/min (>60) Glucose Level 81 MG/DL (74-106) Calcium Level 9.3 MG/DL (8.5-10.1) Phosphorus Level 4.5 MG/DL (2.5-4.9) Magnesium Level 3.0 MG/DL (1.8-2.4) H Current Medications Medications (Trade) Dose Ordered Sig/Renetta Route PRN Reason Start Time Stop Time Status Last Admin Dose Admin Acetaminophen (Tylenol) 650 mg Q6H PRN GT Mild Pain/Temp > 100.5 08/21/18 16:00 09/18/18 15:59 08/26/18 12:03 Acetaminophen/ Hydrocodone Bitart ([place] 5/325) 1 tab Q6H PRN GT For Pain 08/31/18 18:30 09/07/18 18:29 09/02/18 11:59 Amiodarone HCl (Cordarone) 200 mg DAILY GT 08/31/18 09:00 09/24/18 20:59 09/02/18 08:43 Apixaban (Eliquis) 2.5 mg BID GT 08/25/18 18:00 09/24/18 17:59 09/02/18 08:44 Artificial Tears (Akwa-Tears) 1 drop Q4H PRN BOTH EYES Dry Eyes 08/21/18 15:30 09/19/18 15:29 08/30/18 16:53 Chlorhexidine Gluconate (Rylie-Hex 2%) 1 applic DAILY@1999 TOPIC 08/28/18 20:00 09/27/18 19:59 09/01/18 20:41 Collagenase (Santyl) 1 applic Q12HR TOPIC 08/21/18 21:00 09/03/18 20:59 09/02/18 09:27 Lansoprazole (Prevacid) 30 mg Q12HR GT 08/25/18 21:00 09/24/18 20:59 09/02/18 08:46 Lorazepam (Ativan) 0.5 mg Q6H PRN ORAL For Anxiety 08/28/18 12:00 09/04/18 11:59 09/01/18 13:17 Minoxidil (Loniten) 2.5 mg Q12HR GT 08/25/18 21:00 09/24/18 20:59 09/02/18 08:45 Sodium Chloride 1,000 ml @ 500 mls/hr Q2H PRN IVLG sbp<90 during hd 09/02/18 06:00 09/02/18 23:59 Sodium Chloride ([place] Nasal [place]) 1 spray Q4H PRN NASAL dry nose 08/21/18 14:30 09/19/18 18:29 08/23/18 11:49 Vitamin D (Vitamin D) 1,000 intlu DAILY GT 08/22/18 09:00 09/06/18 09:59 09/02/18 08:44 Zolpidem Tartrate (Ambien) 5 mg HSPRN PRN GT Insomnia 09/01/18 20:45 09/08/18 20:44 09/02/18 01:25 Freedom Randolph MD Sep 02, 2018 12:38
--- NOTE | 2018-09-02 15:12 | NUR ---
CASE MANAGEMENT: REVIEW SI: ESRD ON HD TRACHEOSTOMY 08/15 PEG PLACEMENT 08/17 T 97.8 HR 97 RR 24 BP 108/39 SAT 96% MECH VENT FIO2 40 H/H 9.1/29.0 NA 132 BUN 46 CR 2.4 IS: MINOXIDIL GT Q12HR PROCRIT SQ MWF ELIQUIS NG BID AMIODARONE GT Q12HR GT FEEDING NEPRO @ 40ML/HR HD PRN STEP DOWN UNIT STATUS DCP: PATIENT IS FROM [facility]. REFERRED TO [facility]
--- NOTE | 2018-09-02 15:30 | NUR ---
NURSE NOTES: a auxiliary has arrived. Patient is currently being dialyzed. V/S is stable, and patient is tolerating well.
--- NOTE | 2018-09-02 15:40 | NUR ---
CASE MANAGEMENT: DCPNOTE UPON DISCHARGE PATIENT WILL TRANSFER TO A [facility]ACUTE ABLE TO ACCOMMODATE TRACH/VENT/HEMODIALYSIS PATIENTS PATIENT HAS BEEN REFERRED TO: [facility] [phone] / THEY ARE REQUESTING OUTPATIENT HD AND TRANSPORTATION TO BE ARRANGED PATIENT HAS BEEN REFERRED TO [facility] [phone] PATIENT HAS BEEN REFERRED TO [facility] [phone] PATIENT HAS BEEN REFERRED TO [facility] [phone] PATIENT HAS BEEN REFERRED TO [facility] [phone] PATIENT HAS BEEN REFERRED TO [facility] [phone] PER INSURANCE COMPANY [employer] [phone]; INSURANCE MAT ROLLER DR. HALL [phone] HAS REQUESTED TO SPEAK TO DR. ALY REGARDING THE PLAN OF CARE FOR THIS PATIENT. DR. KAHN MADE AWARE.
[2018-09-02 16:00] VITALS: BP 130/54
[2018-09-02] MEDS: LORazepam 0.5mg tab ORAL PRN (17:02)
[2018-09-02 18:10] LABS: HEMATOCRIT 28.2 % (37.0-47.0); MEAN CORPUSCULAR VOLUME 95 FL (80-99); PLATELET COUNT 468 K/UL (150-450); RED BLOOD COUNT 2.96 M/UL (4.20-5.40); RED CELL DISTRIBUTION WIDTH 18.7 % (11.6-14.8)
--- NOTE | 2018-09-02 18:13 | NUR ---
NURSE NOTES: Patient completed dialysis. Output was 3L. Patient is in stable condition at this time. Will continue to monitor.
[2018-09-02 18:26] LABS: WHITE BLOOD COUNT 24.4 K/UL (4.8-10.8)
--- NOTE | 2018-09-02 18:30 | NUR ---
NURSE NOTES: Paged Dr Carrasco in regards to elevated WBC of 24.4, awaiting for call back at this time.
--- NOTE | 2018-09-02 19:23 | NUR ---
HAND-OFF: Report given to BALDO Salcedo .
--- NOTE | 2018-09-02 19:24 | NUR ---
NURSE NOTES: Bedside report received from BALDO Mauricio. Pt is awake, restless, and observed pulling at devices. Bilaterally wrist restraints observed; palpable pulses, skin intact. Nonverbal, but told pt is able to write down simple statements on paper. Ventilator Shiley 8: AC 8, TV 450, PEEP 5, FiO2 40%. CGT Nepro @ 40 ml, patent. Rectal tube draining. Skin is clean and dry. Midline FLACO; asymptomatic. SHARON shunt palpable thrill, audible bruit. Bed locked in lowest position, side rails x3, call rosado within reach. Will continue to monitor and follow with plan of care.
[2018-09-02 20:00] VITALS: BP 126/41
--- NOTE | 2018-09-02 20:32 | NUR ---
NURSE NOTES: Received call from Dr. Urias regarding message left by AM nurse regarding WBC of 24.4, trending up from 10. Was told Dr. Morfin is on the case. Called and left message for Dr. Morfin. Awaiting a call back.
[2018-09-02] MEDS: Dyna-Hex 2% Top Sol 2oz TOPIC SCH (20:45)
[2018-09-03] VITALS (7 sets, daily range): BP systolic 103–139; BP diastolic 33–84
[2018-09-03] MEDS ORDERED: Vancomycin 750mg/NS 250ml IVPB SCH (01:00)
[2018-09-03] MEDS: Norco 5mg/325mg tab GT PRN (01:52)
[2018-09-03] MEDS ORDERED: Piperacillin/Tazobactam 3.375 GM in D5W 110 ML IVPB SCH (03:00)
[2018-09-03 04:35] LABS: HEMOGLOBIN 8.5 G/DL (12.0-16.0); MEAN CORPUSCULAR VOLUME 96 FL (80-99); PLATELET COUNT 411 K/UL (150-450); RED CELL DISTRIBUTION WIDTH 18.4 % (11.6-14.8)
[2018-09-03 04:39] LABS: WHITE BLOOD COUNT 27.2 K/UL (4.8-10.8)
[2018-09-03 04:54] LABS: ANION GAP 9 mmol/L (5-15); BLOOD UREA NITROGEN 30 mg/dL (7-18); CALCIUM 9.2 MG/DL (8.5-10.1); CARBON DIOXIDE 26 MMOL/L (21-32); CHLORIDE 99 MMOL/L (98-107); CREATININE 1.8 MG/DL (0.55-1.30); POTASSIUM 3.8 MMOL/L (3.5-5.1); SODIUM 134 MMOL/L (136-145)
--- NOTE | 2018-09-03 07:35 | NUR ---
NURSE NOTES: Received report BALDO Berry patient awake on restraints,pulling device,G tube feeding ,rectal tube,head elevated,overlay mattress,on ventilator,repositioned,sliding down from bed
--- NOTE | 2018-09-03 07:35 | NUR ---
HAND-OFF: Report given to BALDO Hdz.
[2018-09-03] MEDS: Amiodarone 200mg tab GT SCH (09:20)
[2018-09-03] MEDS: Vitamin D 1000 IU Tab GT SCH (09:20)
[2018-09-03] MEDS: Minoxidil 2.5mg tab GT SCH ×2 (09:21→20:14)
[2018-09-03] MEDS: Eliquis 2.5mg tablet GT SCH ×2 (09:21→17:54)
--- NOTE | 2018-09-03 11:14 | General Progress Note ---
Assessment/Plan Assessment/Plan - Dysphagia - Resp failure - ESRD - Anemia - Status post PEG, tolerating feeds Recommendations 1. Abdominal binder. 2. Elevate the head of the bed at all times. 3. G-tube flush. 4. G-tube care. 5. tube feeding later today per RD to goal Monitor H&H, PRN transfusions PPI Electrolyte correction Follow-up labs Subjective ROS Limited/Unobtainable: No Allergies: Coded Allergies: No Known Allergies (Unverified , 07/25/18) Objective Last 24 Hour Vital Signs Date Time Temp Pulse Resp B/P (MAP) Pulse Ox O2 Delivery O2 Flow Rate FiO2 09/03/18 09:21 139/84 09/03/18 09:13 98.6 110 22 139/84 (102) 100 92 09/03/18 08:47 103 09/03/18 07:10 98 21 40 09/03/18 05:08 95 18 40 09/03/18 04:00 40 09/03/18 04:00 97.7 110 21 139/60 (86) 100 09/03/18 04:00 123 09/03/18 03:40 Mechanical Ventilator Mechanical Ventilator 09/03/18 03:40 88 20 40 09/03/18 01:11 123 24 40 09/03/18 00:00 98.2 66 20 118/57 (77) 100 09/03/18 00:00 Mechanical Ventilator Mechanical Ventilator 09/02/18 23:16 94 20 40 09/02/18 21:09 104 23 40 09/02/18 20:45 126/41 09/02/18 20:00 40 09/02/18 20:00 108 09/02/18 20:00 97.9 100 23 126/41 (69) 98 09/02/18 20:00 Mechanical Ventilator Mechanical Ventilator 09/02/18 19:25 107 21 40 09/02/18 16:50 72 13 40 09/02/18 16:00 Mechanical Ventilator Mechanical Ventilator 09/02/18 16:00 98.3 82 21 130/54 (79) 98 09/02/18 16:00 40 09/02/18 15:25 88 09/02/18 14:45 70 14 40 09/02/18 12:30 75 14 40 09/02/18 12:00 97.8 97 24 108/39 (62) 96 09/02/18 12:00 Mechanical Ventilator Mechanical Ventilator 09/02/18 12:00 40 09/02/18 11:53 94 Intake and Output 09/02/18 09/03/18 19:00 07:00 Intake Total 600 ml 1000 ml Output Total 200 ml Balance 400 ml 1000 ml Free Water 200 ml 200 ml IV Total 360 ml Tube Feeding 400 ml 440 ml Stool Total 200 ml # Voids 2 # Bowel Movements 1 Laboratory Tests 09/02/18 17:40: White Blood Count 24.4#*H, Red Blood Count 2.96L, Hemoglobin 9.0L, Hematocrit 28.2L, Mean Corpuscular Volume 95, Mean Corpuscular Hemoglobin 30.4, Mean Corpuscular Hemoglobin Concent 31.9L, Red Cell Distribution Width 18.7H, Platelet Count 468H, Mean Platelet Volume 5.4L, Neutrophils (%) (Auto) , Lymphocytes (%) (Auto) , Monocytes (%) (Auto) , Eosinophils (%) (Auto) , Basophils (%) (Auto) , Differential Total Cells Counted 100, Neutrophils % ( Manual) 91H, Lymphocytes % (Manual) 1L, Monocytes % (Manual) 5, Eosinophils % ( Manual) 1, Basophils % (Manual) 0, Band Neutrophils 2, Platelet Estimate IncreasedH, Platelet Morphology Normal, Polychromasia 1+, Anisocytosis 2+, Phosphorus Level 2.4L 09/03/18 03:16: White Blood Count 27.2*H, Red Blood Count 2.80L, Hemoglobin 8.5L, Hematocrit 27.0L, Mean Corpuscular Volume 96, Mean Corpuscular Hemoglobin 30.3, Mean Corpuscular Hemoglobin Concent 31.5L, Red Cell Distribution Width 18.4H, Platelet Count 411, Mean Platelet Volume 5.3L, Neutrophils (%) (Auto) , Lymphocytes (%) (Auto) , Monocytes (%) (Auto) , Eosinophils (%) (Auto) , Basophils (%) (Auto) , Differential Total Cells Counted 100, Neutrophils % ( Manual) 92H, Lymphocytes % (Manual) 1L, Monocytes % (Manual) 7, Eosinophils % ( Manual) 0, Basophils % (Manual) 0, Band Neutrophils 0, Platelet Estimate Adequate, Platelet Morphology Normal, Anisocytosis 2+, Hypochromasia 2+, Sodium Level 134L, Potassium Level 3.8, Chloride Level 99, Carbon Dioxide Level 26, Anion Gap 9, Blood Urea Nitrogen 30H, Creatinine 1.8H, Estimat Glomerular Filtration Rate , Glucose Level 122H, Calcium Level 9.2 Height (Feet): 5 Height (Inches): 2.00 Weight (Pounds): 113 General Appearance: lethargic EENT: normal ENT inspection Neck: supple Cardiovascular: normal rate Respiratory/Chest: decreased breath sounds Abdomen: normal bowel sounds, non tender, soft Extremities: non-tender Oc Cox MD Sep 03, 2018 11:14
--- NOTE | 2018-09-03 11:32 | Infectious Diseases Prog Note ---
Assessment/Plan Assessment/Plan antibiotics : vancomycin iv, zosyn A 1. leucocytosis increased 2. shock resolved 3. r/o UTI, sepsis, pneumonia, c.diff 4. respiratory failure s/p tracheostomy 5. renal failure 6. 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 pleural effusion P 1. blood cultures 2. UA and urine culture 3. sputum culture 4. stool for c.diff 5. iv vancomycin, zosyn started 6. will follow up cultures Subjective ROS Limited/Unobtainable: Yes Allergies: Coded Allergies: No Known Allergies (Unverified , 07/25/18) Objective Vital Signs Last 24 Hour Vital Signs Date Time Temp Pulse Resp B/P (MAP) Pulse Ox O2 Delivery O2 Flow Rate FiO2 09/03/18 09:21 139/84 09/03/18 09:13 98.6 110 22 139/84 (102) 100 92 09/03/18 08:47 103 09/03/18 08:00 40 09/03/18 08:00 Mechanical Ventilator Mechanical Ventilator 09/03/18 08:00 98.4 94 21 124/78 (93) 100 09/03/18 07:10 98 21 40 09/03/18 05:08 95 18 40 09/03/18 04:00 40 09/03/18 04:00 97.7 110 21 139/60 (86) 100 09/03/18 04:00 123 09/03/18 03:40 Mechanical Ventilator Mechanical Ventilator 09/03/18 03:40 88 20 40 09/03/18 01:11 123 24 40 09/03/18 00:00 98.2 66 20 118/57 (77) 100 09/03/18 00:00 Mechanical Ventilator Mechanical Ventilator 09/02/18 23:16 94 20 40 09/02/18 21:09 104 23 40 09/02/18 20:45 126/41 09/02/18 20:00 40 09/02/18 20:00 108 09/02/18 20:00 97.9 100 23 126/41 (69) 98 09/02/18 20:00 Mechanical Ventilator Mechanical Ventilator 09/02/18 19:25 107 21 40 09/02/18 16:50 72 13 40 09/02/18 16:00 Mechanical Ventilator Mechanical Ventilator 09/02/18 16:00 98.3 82 21 130/54 (79) 98 09/02/18 16:00 40 09/02/18 15:25 88 09/02/18 14:45 70 14 40 09/02/18 12:30 75 14 40 09/02/18 12:00 97.8 97 24 108/39 (62) 96 09/02/18 12:00 Mechanical Ventilator Mechanical Ventilator 09/02/18 12:00 40 09/02/18 11:53 94 Height (Feet): 5 Height (Inches): 2.00 Weight (Pounds): 113 HEENT: status post trach Respiratory/Chest: lungs clear Cardiovascular: normal rate, regular rhythm, no gallop/murmur Abdomen: soft, non tender, other - Gt Extremities: no edema, other - right arm PICC Laboratory Tests Test 09/02/18 17:40 09/03/18 03:16 White Blood Count 24.4 K/UL (4.8-10.8) #*H 27.2 K/UL (4.8-10.8) *H Red Blood Count 2.96 M/UL (4.20-5.40) L 2.80 M/UL (4.20-5.40) L Hemoglobin 9.0 G/DL (12.0-16.0) L 8.5 G/DL (12.0-16.0) L Hematocrit 28.2 % (37.0-47.0) L 27.0 % (37.0-47.0) L Mean Corpuscular Volume 95 FL (80-99) 96 FL (80-99) Mean Corpuscular Hemoglobin 30.4 PG (27.0-31.0) 30.3 PG (27.0-31.0) Mean Corpuscular Hemoglobin Concent 31.9 G/DL (32.0-36.0) L 31.5 G/DL (32.0-36.0) L Red Cell Distribution Width 18.7 % (11.6-14.8) H 18.4 % (11.6-14.8) H Platelet Count 468 K/UL (150-450) H 411 K/UL (150-450) Mean Platelet Volume 5.4 FL (6.5-10.1) L 5.3 FL (6.5-10.1) L Neutrophils (%) (Auto) % (45.0-75.0) % (45.0-75.0) Lymphocytes (%) (Auto) % (20.0-45.0) % (20.0-45.0) Monocytes (%) (Auto) % (1.0-10.0) % (1.0-10.0) Eosinophils (%) (Auto) % (0.0-3.0) % (0.0-3.0) Basophils (%) (Auto) % (0.0-2.0) % (0.0-2.0) Differential Total Cells Counted 100 100 Neutrophils % (Manual) 91 % (45-75) H 92 % (45-75) H Lymphocytes % (Manual) 1 % (20-45) L 1 % (20-45) L Monocytes % (Manual) 5 % (1-10) 7 % (1-10) Eosinophils % (Manual) 1 % (0-3) 0 % (0-3) Basophils % (Manual) 0 % (0-2) 0 % (0-2) Band Neutrophils 2 % (0-8) 0 % (0-8) Platelet Estimate Increased H Adequate Platelet Morphology Normal Normal Polychromasia 1+ Anisocytosis 2+ 2+ Phosphorus Level 2.4 MG/DL (2.5-4.9) L Hypochromasia 2+ Sodium Level 134 MMOL/L (136-145) L Potassium Level 3.8 MMOL/L (3.5-5.1) Chloride Level 99 MMOL/L (98-107) Carbon Dioxide Level 26 MMOL/L (21-32) Anion Gap 9 mmol/L (5-15) Blood Urea Nitrogen 30 mg/dL (7-18) H Creatinine 1.8 MG/DL (0.55-1.30) H Estimat Glomerular Filtration Rate mL/min (>60) Glucose Level 122 MG/DL (74-106) H Calcium Level 9.2 MG/DL (8.5-10.1) Current Medications Medications (Trade) Dose Ordered Sig/Renetta Route PRN Reason Start Time Stop Time Status Last Admin Dose Admin Acetaminophen (Tylenol) 650 mg Q6H PRN GT Mild Pain/Temp > 100.5 08/21/18 16:00 09/18/18 15:59 08/26/18 12:03 Acetaminophen/ Hydrocodone Bitart ([place] 5/325) 1 tab Q6H PRN GT For Pain 08/31/18 18:30 09/07/18 18:29 09/03/18 01:52 Amiodarone HCl (Cordarone) 200 mg DAILY GT 08/31/18 09:00 09/24/18 20:59 09/03/18 09:20 Apixaban (Eliquis) 2.5 mg BID GT 08/25/18 18:00 09/24/18 17:59 09/03/18 09:21 Artificial Tears (Akwa-Tears) 1 drop Q4H PRN BOTH EYES Dry Eyes 08/21/18 15:30 09/19/18 15:29 08/30/18 16:53 Chlorhexidine Gluconate (Rylie-Hex 2%) 1 applic DAILY@1999 TOPIC 08/28/18 20:00 09/27/18 19:59 09/02/18 20:45 Collagenase (Santyl) 1 applic Q12HR TOPIC 08/21/18 21:00 09/03/18 20:59 09/03/18 09:22 Lansoprazole (Prevacid) 30 mg Q12HR GT 08/25/18 21:00 09/24/18 20:59 09/03/18 09:20 Lorazepam (Ativan) 0.5 mg Q6H PRN ORAL For Anxiety 08/28/18 12:00 09/04/18 11:59 09/02/18 17:02 Minoxidil (Loniten) 2.5 mg Q12HR GT 08/25/18 21:00 09/24/18 20:59 09/03/18 09:21 Piperacillin Sod/ Tazobactam Sod 2.25 gm/Dextrose 110 ml @ 220 mls/hr Q12H IV 09/03/18 15:00 09/10/18 14:59 UNV Sodium Chloride ([place] Nasal [place]) 1 spray Q4H PRN NASAL dry nose 08/21/18 14:30 09/19/18 18:29 08/23/18 11:49 Vancomycin HCl (Vanco rx to dose) 1 ea DAILY PRN MISC Per rx protocol 09/03/18 00:30 10/03/18 00:29 Vitamin D (Vitamin D) 1,000 intlu DAILY GT 08/22/18 09:00 09/06/18 09:59 09/03/18 09:20 Zolpidem Tartrate (Ambien) 5 mg HSPRN PRN GT Insomnia 09/01/18 20:45 09/08/18 20:44 09/02/18 23:13 Omid Morfin MD Sep 03, 2018 11:32
[2018-09-03] MEDS: Piperacillin/Tazobactam 2.25 GM in D5W 110 ML IV SCH ×2 (12:02→20:13)
--- NOTE | 2018-09-03 13:59 | Pulmonology Progress Note ---
Assessment/Plan Assessment/Plan IMPRESSION: 1. Hypotension. Resolved. 2. Sepsis. Resolved 3. Atrial fibrillation. 4. Bradycardia. 5. Diabetes mellitus. 6. End-stage renal disease on dialysis. 7. Left lung collapse. Resolved 8. Respiratory failure. now status post tracheostomy 9. Dysphagia. 10. Dementia. 11. Anemia DISCUSSION: 1. Continue medications. 2. CXR improved 3. Status post tracheostomy 4. S/p G-tube 5. Continue HD Andres Allan M.D. Subjective Interval Events: None reported Constitutional: Reports: no symptoms HEENT: Repors: no symptoms Respiratory: Reports: no symptoms Cardiovascular: Reports: no symptoms Gastrointestinal/Abdominal: Reports: no symptoms Allergies: Coded Allergies: No Known Allergies (Unverified , 07/25/18) Objective Last 24 Hour Vital Signs Date Time Temp Pulse Resp B/P (MAP) Pulse Ox O2 Delivery O2 Flow Rate FiO2 09/03/18 13:53 88 09/03/18 12:05 Mechanical Ventilator Mechanical Ventilator 09/03/18 12:00 40 09/03/18 11:52 98.4 93 20 103/33 (56) 96 09/03/18 10:50 94 21 40 09/03/18 09:21 139/84 09/03/18 09:13 98.6 110 22 139/84 (102) 100 92 09/03/18 08:47 103 09/03/18 08:40 96 22 40 09/03/18 08:00 40 09/03/18 08:00 Mechanical Ventilator Mechanical Ventilator 09/03/18 08:00 98.4 94 21 124/78 (93) 100 09/03/18 07:10 98 21 40 09/03/18 05:08 95 18 40 09/03/18 04:00 40 09/03/18 04:00 97.7 110 21 139/60 (86) 100 09/03/18 04:00 123 09/03/18 03:40 Mechanical Ventilator Mechanical Ventilator 09/03/18 03:40 88 20 40 09/03/18 01:11 123 24 40 09/03/18 00:00 98.2 66 20 118/57 (77) 100 09/03/18 00:00 Mechanical Ventilator Mechanical Ventilator 09/02/18 23:16 94 20 40 09/02/18 21:09 104 23 40 09/02/18 20:45 126/41 09/02/18 20:00 40 09/02/18 20:00 108 09/02/18 20:00 97.9 100 23 126/41 (69) 98 09/02/18 20:00 Mechanical Ventilator Mechanical Ventilator 09/02/18 19:25 107 21 40 09/02/18 16:50 72 13 40 09/02/18 16:00 Mechanical Ventilator Mechanical Ventilator 09/02/18 16:00 98.3 82 21 130/54 (79) 98 09/02/18 16:00 40 09/02/18 15:25 88 09/02/18 14:45 70 14 40 Intake and Output 09/02/18 09/03/18 19:00 07:00 Intake Total 600 ml 1040 ml Output Total 200 ml Balance 400 ml 1040 ml Free Water 200 ml 200 ml IV Total 360 ml Tube Feeding 400 ml 480 ml Stool Total 200 ml # Voids 2 # Bowel Movements 1 General Appearance: no acute distress HEENT: normocephalic Respiratory/Chest: chest wall non-tender, lungs clear Cardiovascular: normal peripheral pulses, normal rate Abdomen: normal bowel sounds, soft, non tender Laboratory Tests 09/02/18 17:40: White Blood Count 24.4#*H, Red Blood Count 2.96L, Hemoglobin 9.0L, Hematocrit 28.2L, Mean Corpuscular Volume 95, Mean Corpuscular Hemoglobin 30.4, Mean Corpuscular Hemoglobin Concent 31.9L, Red Cell Distribution Width 18.7H, Platelet Count 468H, Mean Platelet Volume 5.4L, Neutrophils (%) (Auto) , Lymphocytes (%) (Auto) , Monocytes (%) (Auto) , Eosinophils (%) (Auto) , Basophils (%) (Auto) , Differential Total Cells Counted 100, Neutrophils % ( Manual) 91H, Lymphocytes % (Manual) 1L, Monocytes % (Manual) 5, Eosinophils % ( Manual) 1, Basophils % (Manual) 0, Band Neutrophils 2, Platelet Estimate IncreasedH, Platelet Morphology Normal, Polychromasia 1+, Anisocytosis 2+, Phosphorus Level 2.4L 09/03/18 03:16: White Blood Count 27.2*H, Red Blood Count 2.80L, Hemoglobin 8.5L, Hematocrit 27.0L, Mean Corpuscular Volume 96, Mean Corpuscular Hemoglobin 30.3, Mean Corpuscular Hemoglobin Concent 31.5L, Red Cell Distribution Width 18.4H, Platelet Count 411, Mean Platelet Volume 5.3L, Neutrophils (%) (Auto) , Lymphocytes (%) (Auto) , Monocytes (%) (Auto) , Eosinophils (%) (Auto) , Basophils (%) (Auto) , Differential Total Cells Counted 100, Neutrophils % ( Manual) 92H, Lymphocytes % (Manual) 1L, Monocytes % (Manual) 7, Eosinophils % ( Manual) 0, Basophils % (Manual) 0, Band Neutrophils 0, Platelet Estimate Adequate, Platelet Morphology Normal, Anisocytosis 2+, Hypochromasia 2+, Sodium Level 134L, Potassium Level 3.8, Chloride Level 99, Carbon Dioxide Level 26, Anion Gap 9, Blood Urea Nitrogen 30H, Creatinine 1.8H, Estimat Glomerular Filtration Rate , Glucose Level 122H, Calcium Level 9.2 Current Medications Medications (Trade) Dose Ordered Sig/Renetta Route PRN Reason Start Time Stop Time Status Last Admin Dose Admin Acetaminophen (Tylenol) 650 mg Q6H PRN GT Mild Pain/Temp > 100.5 08/21/18 16:00 09/18/18 15:59 08/26/18 12:03 Acetaminophen/ Hydrocodone Bitart ([place] 5/325) 1 tab Q6H PRN GT For Pain 08/31/18 18:30 09/07/18 18:29 09/03/18 01:52 Amiodarone HCl (Cordarone) 200 mg DAILY GT 08/31/18 09:00 09/24/18 20:59 09/03/18 09:20 Apixaban (Eliquis) 2.5 mg BID GT 08/25/18 18:00 09/24/18 17:59 09/03/18 09:21 Artificial Tears (Akwa-Tears) 1 drop Q4H PRN BOTH EYES Dry Eyes 08/21/18 15:30 09/19/18 15:29 08/30/18 16:53 Chlorhexidine Gluconate (Rylie-Hex 2%) 1 applic DAILY@1999 TOPIC 08/28/18 20:00 1/29/19 19:59 09/02/18 20:45 Collagenase (Santyl) 1 applic Q12HR TOPIC 08/21/18 21:00 09/03/18 20:59 09/03/18 09:22 Lansoprazole (Prevacid) 30 mg Q12HR GT 08/25/18 21:00 09/24/18 20:59 09/03/18 09:20 Lorazepam (Ativan) 0.5 mg Q6H PRN ORAL For Anxiety 08/28/18 12:00 09/04/18 11:59 09/02/18 17:02 Minoxidil (Loniten) 2.5 mg Q12HR GT 08/25/18 21:00 09/24/18 20:59 09/03/18 09:21 Piperacillin Sod/ Tazobactam Sod 2.25 gm/Dextrose 110 ml @ 220 mls/hr Q8H IV 09/03/18 12:00 09/10/18 11:59 09/03/18 12:02 Sodium Chloride ([place]) 1 spray Q4H PRN NASAL dry nose 08/21/18 14:30 09/19/18 18:29 08/23/18 11:49 Vancomycin HCl (Vanco rx to dose) 1 ea DAILY PRN MISC Per rx protocol 09/03/18 00:30 10/03/18 00:29 Vitamin D (Vitamin D) 1,000 intlu DAILY GT 08/22/18 09:00 09/06/18 09:59 09/03/18 09:20 Zolpidem Tartrate (Ambien) 5 mg HSPRN PRN GT Insomnia 09/01/18 20:45 09/08/18 20:44 09/02/18 23:13 Andres Allan MD Sep 03, 2018 13:59
--- NOTE | 2018-09-03 16:06 | NUR ---
CASE MANAGEMENT: REVIEW 09/03/17 SI: ESRD ON HD S/P TRACHEOSTOMY 08/15 S/P PEG PLACEMENT 08/17 98.4 93 20 103/33 SAT 96% MECH VENT FIO2 40 WBC+27.2 IS:IV ZOSYN Q8HRS IV VANCOMYCIN Q48 MINOXIDIL GT Q12HR ELIQUIS NG BID AMIODARONE GT Q12HR GT FEEDING NEPRO @ 40ML/HR STEP DOWN UNIT STATUS DCP: PATIENT IS FROM [facility]. REFERRED TO [facility]
[2018-09-03] MEDS: LORazepam 0.5mg tab ORAL PRN (17:55)
--- NOTE | 2018-09-03 18:14 | NUR ---
NURSE NOTES: Son visiting ,patient anxious,restless,pulling device,Ativan given ,son agree,watch closely
--- NOTE | 2018-09-03 19:00 | NUR ---
HAND-OFF: Report given to BALDO Bowers,patient awake,on restraints,no distress.
--- NOTE | 2018-09-03 19:01 | NUR ---
NURSE NOTES: Bedside report received from BALDO Hdz. Pt is awake, restless, and observed pulling at devices. Bilaterally wrist restraints observed; palpable pulses, skin intact. Nonverbal, but pt is able to write down simple statements on paper; answer yes/no questions. Ventilator Shiley 8: AC 8, TV 450, PEEP 5, FiO2 40%. CGT Nepro @ 40 ml, patent. Rectal tube draining. Skin is clean and dry. Midline FLACO; asymptomatic. SHARON shunt palpable thrill, audible bruit. Bed locked in lowest position, side rails x3, call rosado within reach. Will continue to monitor and follow with plan of care.
[2018-09-03] MEDS: Dyna-Hex 2% Top Sol 2oz TOPIC SCH (20:13)
--- NOTE | 2018-09-03 21:39 | Cardiology Progress Note ---
Assessment/Plan Assessment/Plan no atrial fibrillation on current regimen Subjective Subjective The patient is with tach, she is alert, but unable to speak, she denies palpitations or shortness of breath her son is at the bedside Objective Last 24 Hour Vital Signs Date Time Temp Pulse Resp B/P (MAP) Pulse Ox O2 Delivery O2 Flow Rate FiO2 09/03/18 21:30 81 16 40 09/03/18 20:14 127/40 09/03/18 20:00 Mechanical Ventilator Mechanical Ventilator 09/03/18 20:00 78 09/03/18 20:00 40 09/03/18 20:00 98.2 85 17 127/34 (65) 100 09/03/18 19:11 78 16 40 09/03/18 18:00 Mechanical Ventilator Mechanical Ventilator 09/03/18 17:27 87 21 40 09/03/18 16:59 82 09/03/18 16:00 40 09/03/18 16:00 Mechanical Ventilator Mechanical Ventilator 09/03/18 16:00 98.6 92 20 110/55 (73) 98 09/03/18 15:00 89 20 40 09/03/18 13:53 88 09/03/18 13:10 87 22 40 09/03/18 12:05 Mechanical Ventilator Mechanical Ventilator 09/03/18 12:00 40 09/03/18 11:52 98.4 93 20 103/33 (56) 96 09/03/18 10:50 94 21 40 09/03/18 09:21 139/84 09/03/18 09:13 98.6 110 22 139/84 (102) 100 92 09/03/18 08:47 103 09/03/18 08:40 96 22 40 09/03/18 08:00 40 09/03/18 08:00 Mechanical Ventilator Mechanical Ventilator 09/03/18 08:00 98.4 94 21 124/78 (93) 100 09/03/18 07:10 98 21 40 09/03/18 05:08 95 18 40 09/03/18 04:00 40 09/03/18 04:00 97.7 110 21 139/60 (86) 100 09/03/18 04:00 123 09/03/18 03:40 Mechanical Ventilator Mechanical Ventilator 09/03/18 03:40 88 20 40 09/03/18 01:11 123 24 40 09/03/18 00:00 98.2 66 20 118/57 (77) 100 09/03/18 00:00 Mechanical Ventilator Mechanical Ventilator 09/02/18 23:16 94 20 40 General Appearance: on vent EENT: PERRL/EOMI Neck: supple Rhythm: NSR Cardiovascular: normal rate Respiratory/Chest: rhonchi - bilaterally Abdomen: other - g tuibe Extremities: trace edema Intake and Output 09/02/18 09/03/18 19:00 07:00 Intake Total 600 ml 1040 ml Output Total 200 ml Balance 400 ml 1040 ml Free Water 200 ml 200 ml IV Total 360 ml Tube Feeding 400 ml 480 ml Stool Total 200 ml # Voids 2 # Bowel Movements 1 Laboratory Tests Test 09/03/18 03:16 White Blood Count 27.2 K/UL (4.8-10.8) *H Red Blood Count 2.80 M/UL (4.20-5.40) L Hemoglobin 8.5 G/DL (12.0-16.0) L Hematocrit 27.0 % (37.0-47.0) L Mean Corpuscular Volume 96 FL (80-99) Mean Corpuscular Hemoglobin 30.3 PG (27.0-31.0) Mean Corpuscular Hemoglobin Concent 31.5 G/DL (32.0-36.0) L Red Cell Distribution Width 18.4 % (11.6-14.8) H Platelet Count 411 K/UL (150-450) Mean Platelet Volume 5.3 FL (6.5-10.1) L Neutrophils (%) (Auto) % (45.0-75.0) Lymphocytes (%) (Auto) % (20.0-45.0) Monocytes (%) (Auto) % (1.0-10.0) Eosinophils (%) (Auto) % (0.0-3.0) Basophils (%) (Auto) % (0.0-2.0) Differential Total Cells Counted 100 Neutrophils % (Manual) 92 % (45-75) H Lymphocytes % (Manual) 1 % (20-45) L Monocytes % (Manual) 7 % (1-10) Eosinophils % (Manual) 0 % (0-3) Basophils % (Manual) 0 % (0-2) Band Neutrophils 0 % (0-8) Platelet Estimate Adequate Platelet Morphology Normal Hypochromasia 2+ Anisocytosis 2+ Sodium Level 134 MMOL/L (136-145) L Potassium Level 3.8 MMOL/L (3.5-5.1) Chloride Level 99 MMOL/L (98-107) Carbon Dioxide Level 26 MMOL/L (21-32) Anion Gap 9 mmol/L (5-15) Blood Urea Nitrogen 30 mg/dL (7-18) H Creatinine 1.8 MG/DL (0.55-1.30) H Estimat Glomerular Filtration Rate mL/min (>60) Glucose Level 122 MG/DL (74-106) H Calcium Level 9.2 MG/DL (8.5-10.1) Karena Dahl MD Sep 03, 2018 21:39
[2018-09-03] MEDS ORDERED: Tubing IV Secondary IV ONE (22:46)
[2018-09-03] MEDS ORDERED: NS 275ml ONE (22:46)
[2018-09-04] VITALS: BP 140/81
[2018-09-04 04:00] VITALS: BP 134/50
[2018-09-04] MEDS: Piperacillin/Tazobactam 2.25 GM in D5W 110 ML IV SCH ×3 (04:28→20:28)
[2018-09-04] MEDS: Norco 5mg/325mg tab GT PRN (06:43)
--- NOTE | 2018-09-04 06:58 | General Progress Note ---
Assessment/Plan Assessment/Plan - Dysphagia - Resp failure - ESRD - Anemia - Status post PEG, tolerating feeds Recommendations 1. Abdominal binder. 2. Elevate the head of the bed at all times. 3. G-tube flush. 4. G-tube care. 5. tube feeding later today per RD to goal Monitor H&H, PRN transfusions PPI Electrolyte correction Follow-up labs Subjective ROS Limited/Unobtainable: No Allergies: Coded Allergies: No Known Allergies (Unverified , 07/25/18) Objective Last 24 Hour Vital Signs Date Time Temp Pulse Resp B/P (MAP) Pulse Ox O2 Delivery O2 Flow Rate FiO2 09/04/18 05:36 83 22 40 09/04/18 04:00 Mechanical Ventilator Mechanical Ventilator 09/04/18 04:00 97.4 81 19 134/50 (78) 100 09/04/18 04:00 40 09/04/18 04:00 75 09/04/18 03:05 98 14 40 09/04/18 01:10 98 13 40 09/04/18 00:00 10 09/04/18 00:00 40 09/04/18 00:00 Mechanical Ventilator Mechanical Ventilator 09/04/18 00:00 97.7 112 21 140/81 (100) 100 09/03/18 23:14 81 16 40 09/03/18 21:30 81 16 40 09/03/18 20:14 127/40 09/03/18 20:00 Mechanical Ventilator Mechanical Ventilator 09/03/18 20:00 78 09/03/18 20:00 40 09/03/18 20:00 98.2 85 17 127/34 (65) 100 09/03/18 19:11 78 16 40 09/03/18 18:00 Mechanical Ventilator Mechanical Ventilator 09/03/18 17:27 87 21 40 09/03/18 16:59 82 09/03/18 16:00 40 09/03/18 16:00 Mechanical Ventilator Mechanical Ventilator 09/03/18 16:00 98.6 92 20 110/55 (73) 98 09/03/18 15:00 89 20 40 09/03/18 13:53 88 09/03/18 13:10 87 22 40 09/03/18 12:05 Mechanical Ventilator Mechanical Ventilator 09/03/18 12:00 40 09/03/18 11:52 98.4 93 20 103/33 (56) 96 09/03/18 10:50 94 21 40 09/03/18 09:21 139/84 09/03/18 09:13 98.6 110 22 139/84 (102) 100 92 09/03/18 08:47 103 09/03/18 08:40 96 22 40 09/03/18 08:00 40 09/03/18 08:00 Mechanical Ventilator Mechanical Ventilator 09/03/18 08:00 98.4 94 21 124/78 (93) 100 09/03/18 07:10 98 21 40 Intake and Output 09/03/18 09/04/18 18:59 06:59 Intake Total 860 ml 750 ml Output Total 100 ml Balance 860 ml 650 ml Free Water 160 ml 50 ml IV Total 220 ml 220 ml Tube Feeding 480 ml 480 ml Stool Total 100 ml # Voids 1 Height (Feet): 5 Height (Inches): 2.00 Weight (Pounds): 115 General Appearance: alert EENT: normal ENT inspection Neck: supple Cardiovascular: normal rate Respiratory/Chest: decreased breath sounds Abdomen: normal bowel sounds, non tender, soft Extremities: non-tender Oc Cox MD Sep 04, 2018 06:58
--- NOTE | 2018-09-04 07:30 | NUR ---
HAND-OFF: Report given to BALDO Croft.
--- NOTE | 2018-09-04 07:47 | NUR ---
NURSE NOTES: received patient report from murray hair. patient is on bed awake. noted restraints, bilaterraly. no acute events. bed is low and locked for safety. call light within reach. will continue to monitor.
[2018-09-04 08:00] VITALS: BP 135/56
[2018-09-04] MEDS: Amiodarone 200mg tab GT SCH (08:27)
[2018-09-04] MEDS: Minoxidil 2.5mg tab GT SCH ×2 (08:27→20:29)
[2018-09-04] MEDS: Vitamin D 1000 IU Tab GT SCH (08:27)
[2018-09-04] MEDS: Eliquis 2.5mg tablet GT SCH ×2 (08:28→17:31)
[2018-09-04 09:13] LABS: HEMATOCRIT 26.9 % (37.0-47.0); HEMOGLOBIN 8.3 G/DL (12.0-16.0); MEAN CORPUSCULAR VOLUME 96 FL (80-99); PLATELET COUNT 366 K/UL (150-450); RED BLOOD COUNT 2.81 M/UL (4.20-5.40); RED CELL DISTRIBUTION WIDTH 18.3 % (11.6-14.8); WHITE BLOOD COUNT 14.8 K/UL (4.8-10.8)
--- NOTE | 2018-09-04 09:28 | NUR ---
CASE MANAGEMENT: REVIEW 09/04/17 SI: ESRD ON HD S/P TRACHEOSTOMY 08/15 S/P PEG PLACEMENT 08/17 97.4 73 19 135/56 SAT 100% MECH VENT FIO2 40 WBC+14.8 IS:IV ZOSYN Q8HRS MINOXIDIL GT Q12HR ELIQUIS NG BID AMIODARONE GT Q12HR GT FEEDING NEPRO @ 40ML/HR STEP DOWN UNIT STATUS DCP: PATIENT IS FROM [facility]. REFERRED TO KELLY MARIS
[2018-09-04 09:40] LABS: PHOSPHORUS 3.9 MG/DL (2.5-4.9)
[2018-09-04 10:03] LABS: ANION GAP 10 mmol/L (5-15); BLOOD UREA NITROGEN 44 mg/dL (7-18); CALCIUM 9.7 MG/DL (8.5-10.1); CARBON DIOXIDE 25 MMOL/L (21-32); CHLORIDE 96 MMOL/L (98-107); CREATININE 2.4 MG/DL (0.55-1.30); POTASSIUM 4.1 MMOL/L (3.5-5.1); SODIUM 131 MMOL/L (136-145)
--- NOTE | 2018-09-04 10:18 | Infectious Diseases Prog Note ---
Assessment/Plan Assessment/Plan A: New leukocytosis improving UTI treated Cellulitis of R leg, osteomyelitis treated Hypercapnic respiratory failure ESRD on HD DM Anemia Dementia PVD R pleural effusion Mucous plug s/o Cardiac arrest Multiple Pressure ulcers P; Continue Zosyn & Vancomycin will f/u cultures Subjective ROS Limited/Unobtainable: Yes Constitutional: Reports: no symptoms Allergies: Coded Allergies: No Known Allergies (Unverified , 07/25/18) Objective Vital Signs Last 24 Hour Vital Signs Date Time Temp Pulse Resp B/P (MAP) Pulse Ox O2 Delivery O2 Flow Rate FiO2 09/04/18 09:14 73 19 40 09/04/18 09:00 40 09/04/18 08:27 135/56 09/04/18 08:00 96.6 80 17 135/56 (82) 100 09/04/18 08:00 Mechanical Ventilator Mechanical Ventilator 09/04/18 07:58 75 09/04/18 07:13 97.4 09/04/18 07:08 80 19 40 09/04/18 05:36 83 22 40 09/04/18 04:00 Mechanical Ventilator Mechanical Ventilator 09/04/18 04:00 97.4 81 19 134/50 (78) 100 09/04/18 04:00 40 09/04/18 04:00 75 09/04/18 03:05 98 14 40 09/04/18 01:10 98 13 40 09/04/18 00:00 10 09/04/18 00:00 40 09/04/18 00:00 Mechanical Ventilator Mechanical Ventilator 09/04/18 00:00 97.7 112 21 140/81 (100) 100 09/03/18 23:14 81 16 40 09/03/18 21:30 81 16 40 09/03/18 20:14 127/40 09/03/18 20:00 Mechanical Ventilator Mechanical Ventilator 09/03/18 20:00 78 09/03/18 20:00 40 09/03/18 20:00 98.2 85 17 127/34 (65) 100 09/03/18 19:11 78 16 40 09/03/18 18:00 Mechanical Ventilator Mechanical Ventilator 09/03/18 17:27 87 21 40 09/03/18 16:59 82 09/03/18 16:00 40 09/03/18 16:00 Mechanical Ventilator Mechanical Ventilator 09/03/18 16:00 98.6 92 20 110/55 (73) 98 09/03/18 15:00 89 20 40 09/03/18 13:53 88 09/03/18 13:10 87 22 40 09/03/18 12:05 Mechanical Ventilator Mechanical Ventilator 09/03/18 12:00 40 09/03/18 11:52 98.4 93 20 103/33 (56) 96 09/03/18 10:50 94 21 40 Height (Feet): 5 Height (Inches): 2.00 Weight (Pounds): 115 General Appearance: no acute distress HEENT: status post trach Respiratory/Chest: lungs clear, other - on ventilator Cardiovascular: normal rate, other - PICC line Abdomen: soft, non tender, other - GT feeding Extremities: no edema Neurologic/Psychiatric: other - sleeping Microbiology Date/Time Source Procedure Growth Status 09/03/18 03:16 Blood Blood Culture - Preliminary NO GROWTH AFTER 24 HOURS Resulted 09/03/18 06:00 Sputum Gram Stain - Final Resulted 09/03/18 06:00 Sputum Sputum Culture Pending Resulted 09/03/18 06:00 Stool Clostridium difficile Toxin Assay - Final Complete Laboratory Tests Test 09/04/18 09:02 White Blood Count 14.8 K/UL (4.8-10.8) H Red Blood Count 2.81 M/UL (4.20-5.40) L Hemoglobin 8.3 G/DL (12.0-16.0) L Hematocrit 26.9 % (37.0-47.0) L Mean Corpuscular Volume 96 FL (80-99) Mean Corpuscular Hemoglobin 29.5 PG (27.0-31.0) Mean Corpuscular Hemoglobin Concent 30.8 G/DL (32.0-36.0) L Red Cell Distribution Width 18.3 % (11.6-14.8) H Platelet Count 366 K/UL (150-450) Mean Platelet Volume 6.0 FL (6.5-10.1) L Neutrophils (%) (Auto) % (45.0-75.0) Lymphocytes (%) (Auto) % (20.0-45.0) Monocytes (%) (Auto) % (1.0-10.0) Eosinophils (%) (Auto) % (0.0-3.0) Basophils (%) (Auto) % (0.0-2.0) Neutrophils % (Manual) Pending Lymphocytes % (Manual) Pending Platelet Estimate Pending Platelet Morphology Pending Sodium Level 131 MMOL/L (136-145) L Potassium Level 4.1 MMOL/L (3.5-5.1) Chloride Level 96 MMOL/L (98-107) L Carbon Dioxide Level 25 MMOL/L (21-32) Anion Gap 10 mmol/L (5-15) Blood Urea Nitrogen 44 mg/dL (7-18) H Creatinine 2.4 MG/DL (0.55-1.30) H Estimat Glomerular Filtration Rate mL/min (>60) Glucose Level 123 MG/DL (74-106) H Calcium Level 9.7 MG/DL (8.5-10.1) Phosphorus Level 3.9 MG/DL (2.5-4.9) Magnesium Level 2.9 MG/DL (1.8-2.4) H Current Medications Medications (Trade) Dose Ordered Sig/Renetta Route PRN Reason Start Time Stop Time Status Last Admin Dose Admin Acetaminophen (Tylenol) 650 mg Q6H PRN GT Mild Pain/Temp > 100.5 08/21/18 16:00 09/18/18 15:59 08/26/18 12:03 Acetaminophen/ Hydrocodone Bitart ([place] 5/325) 1 tab Q6H PRN GT For Pain 08/31/18 18:30 09/07/18 18:29 09/04/18 06:43 Amiodarone HCl (Cordarone) 200 mg DAILY GT 08/31/18 09:00 09/24/18 20:59 09/04/18 08:27 Apixaban (Eliquis) 2.5 mg BID GT 08/25/18 18:00 09/24/18 17:59 09/04/18 08:28 Artificial Tears (Akwa-Tears) 1 drop Q4H PRN BOTH EYES Dry Eyes 08/21/18 15:30 09/19/18 15:29 08/30/18 16:53 Chlorhexidine Gluconate (Rylie-Hex 2%) 1 applic DAILY@2000 TOPIC 08/28/18 20:00 09/27/18 19:59 09/03/18 20:13 Lansoprazole (Prevacid) 30 mg Q12HR GT 08/25/18 21:00 09/24/18 20:59 09/04/18 08:27 Lorazepam (Ativan) 0.5 mg Q6H PRN ORAL For Anxiety 08/28/18 12:00 09/04/18 11:59 09/03/18 17:55 Minoxidil (Loniten) 2.5 mg Q12HR GT 08/25/18 21:00 09/24/18 20:59 09/04/18 08:27 Piperacillin Sod/ Tazobactam Sod 2.25 gm/Dextrose 110 ml @ 220 mls/hr Q8H IV 09/03/18 12:00 09/10/18 11:59 09/04/18 04:28 Sodium Chloride ([place] Nasal [place]) 1 spray Q4H PRN NASAL dry nose 08/21/18 14:30 09/19/18 18:29 08/23/18 11:49 Vancomycin HCl (Vanco rx to dose) 1 ea DAILY PRN MISC Per rx protocol 09/03/18 00:30 10/03/18 00:29 Vitamin D (Vitamin D) 1,000 intlu DAILY GT 08/22/18 09:00 09/06/18 09:59 09/04/18 08:27 Zolpidem Tartrate (Ambien) 5 mg HSPRN PRN GT Insomnia 09/01/18 20:45 09/08/18 20:44 09/02/18 23:13 Freedom Randolph MD Sep 04, 2018 10:17
--- NOTE | 2018-09-04 11:08 | Pulmonology Progress Note ---
Assessment/Plan Assessment/Plan IMPRESSION: 1. Hypotension. Resolved. 2. Sepsis. Resolved 3. Atrial fibrillation. 4. Bradycardia. 5. Diabetes mellitus. 6. End-stage renal disease on dialysis. 7. Left lung collapse. Resolved 8. Respiratory failure. now status post tracheostomy 9. Dysphagia. 10. Dementia. 11. Anemia DISCUSSION: 1. Continue medications. 2. CXR improved 3. Status post tracheostomy 4. S/p G-tube 5. Continue HD Andres Allan M.D. Subjective Interval Events: None new Constitutional: Reports: no symptoms HEENT: Repors: no symptoms Respiratory: Reports: no symptoms Cardiovascular: Reports: no symptoms Gastrointestinal/Abdominal: Reports: no symptoms Genitourinary: Reports: no symptoms Allergies: Coded Allergies: No Known Allergies (Unverified , 07/25/18) Objective Last 24 Hour Vital Signs Date Time Temp Pulse Resp B/P (MAP) Pulse Ox O2 Delivery O2 Flow Rate FiO2 09/04/18 09:14 73 19 40 09/04/18 09:00 40 09/04/18 08:27 135/56 09/04/18 08:00 96.6 80 17 135/56 (82) 100 09/04/18 08:00 Mechanical Ventilator Mechanical Ventilator 09/04/18 07:58 75 09/04/18 07:13 97.4 09/04/18 07:08 80 19 40 09/04/18 05:36 83 22 40 09/04/18 04:00 Mechanical Ventilator Mechanical Ventilator 09/04/18 04:00 97.4 81 19 134/50 (78) 100 09/04/18 04:00 40 09/04/18 04:00 75 09/04/18 03:05 98 14 40 09/04/18 01:10 98 13 40 09/04/18 00:00 10 09/04/18 00:00 40 09/04/18 00:00 Mechanical Ventilator Mechanical Ventilator 09/04/18 00:00 97.7 112 21 140/81 (100) 100 09/03/18 23:14 81 16 40 09/03/18 21:30 81 16 40 09/03/18 20:14 127/40 09/03/18 20:00 Mechanical Ventilator Mechanical Ventilator 09/03/18 20:00 78 09/03/18 20:00 40 09/03/18 20:00 98.2 85 17 127/34 (65) 100 09/03/18 19:11 78 16 40 09/03/18 18:00 Mechanical Ventilator Mechanical Ventilator 09/03/18 17:27 87 21 40 09/03/18 16:59 82 09/03/18 16:00 40 09/03/18 16:00 Mechanical Ventilator Mechanical Ventilator 09/03/18 16:00 98.6 92 20 110/55 (73) 98 09/03/18 15:00 89 20 40 09/03/18 13:53 88 09/03/18 13:10 87 22 40 09/03/18 12:05 Mechanical Ventilator Mechanical Ventilator 09/03/18 12:00 40 09/03/18 11:52 98.4 93 20 103/33 (56) 96 Intake and Output 09/03/18 09/04/18 19:00 07:00 Intake Total 860 ml 710 ml Output Total 100 ml Balance 860 ml 610 ml Free Water 160 ml 50 ml IV Total 220 ml 220 ml Tube Feeding 480 ml 440 ml Stool Total 100 ml # Voids 1 General Appearance: no acute distress HEENT: normocephalic Respiratory/Chest: chest wall non-tender, lungs clear Cardiovascular: normal peripheral pulses, normal rate Abdomen: normal bowel sounds, soft, non tender Microbiology Date/Time Source Procedure Growth Status 09/03/18 03:16 Blood Blood Culture - Preliminary NO GROWTH AFTER 24 HOURS Resulted 09/03/18 06:00 Sputum Gram Stain - Final Resulted 09/03/18 06:00 Sputum Sputum Culture Pending Resulted 09/03/18 06:00 Stool Clostridium difficile Toxin Assay - Final Complete Laboratory Tests 09/04/18 09:02: White Blood Count 14.8H, Red Blood Count 2.81L, Hemoglobin 8.3L, Hematocrit 26.9L, Mean Corpuscular Volume 96, Mean Corpuscular Hemoglobin 29.5, Mean Corpuscular Hemoglobin Concent 30.8L, Red Cell Distribution Width 18.3H, Platelet Count 366, Mean Platelet Volume 6.0L, Neutrophils (%) (Auto) , Lymphocytes (%) (Auto) , Monocytes (%) (Auto) , Eosinophils (%) (Auto) , Basophils (%) (Auto) , Differential Total Cells Counted 100, Neutrophils % ( Manual) 93H, Lymphocytes % (Manual) 3L, Monocytes % (Manual) 3, Eosinophils % ( Manual) 1, Basophils % (Manual) 0, Band Neutrophils 0, Platelet Estimate Adequate, Platelet Morphology Normal, Hypochromasia 2+, Anisocytosis 1+, Sodium Level 131L, Potassium Level 4.1, Chloride Level 96L, Carbon Dioxide Level 25, Anion Gap 10, Blood Urea Nitrogen 44H, Creatinine 2.4H, Estimat Glomerular Filtration Rate , Glucose Level 123H, Calcium Level 9.7, Phosphorus Level 3.9, Magnesium Level 2.9H Current Medications Medications (Trade) Dose Ordered Sig/Renetta Route PRN Reason Start Time Stop Time Status Last Admin Dose Admin Acetaminophen (Tylenol) 650 mg Q6H PRN GT Mild Pain/Temp > 100.5 08/21/18 16:00 09/18/18 15:59 08/26/18 12:03 Acetaminophen/ Hydrocodone Bitart ([place] 5/325) 1 tab Q6H PRN GT For Pain 08/31/18 18:30 09/07/18 18:29 09/04/18 06:43 Amiodarone HCl (Cordarone) 200 mg DAILY GT 08/31/18 09:00 09/24/18 20:59 09/04/18 08:27 Apixaban (Eliquis) 2.5 mg BID GT 08/25/18 18:00 09/24/18 17:59 09/04/18 08:28 Artificial Tears (Akwa-Tears) 1 drop Q4H PRN BOTH EYES Dry Eyes 08/21/18 15:30 09/19/18 15:29 08/30/18 16:53 Chlorhexidine Gluconate (Rylie-Hex 2%) 1 applic DAILY@1999 TOPIC 08/28/18 20:00 09/27/18 19:59 09/03/18 20:13 Lansoprazole (Prevacid) 30 mg Q12HR GT 08/25/18 21:00 09/24/18 20:59 09/04/18 08:27 Lorazepam (Ativan) 0.5 mg Q6H PRN ORAL For Anxiety 08/28/18 12:00 09/04/18 11:59 09/03/18 17:55 Minoxidil (Loniten) 2.5 mg Q12HR GT 08/25/18 21:00 09/24/18 20:59 09/04/18 08:27 Piperacillin Sod/ Tazobactam Sod 2.25 gm/Dextrose 110 ml @ 220 mls/hr Q8H IV 09/03/18 12:00 09/10/18 11:59 09/04/18 04:28 Sodium Chloride ([place] Nasal [employer]) 1 spray Q4H PRN NASAL dry nose 08/21/18 14:30 09/19/18 18:29 08/23/18 11:49 Vancomycin HCl (Vanco rx to dose) 1 ea DAILY PRN MISC Per rx protocol 09/03/18 00:30 10/03/18 00:29 Vitamin D (Vitamin D) 1,000 intlu DAILY GT 08/22/18 09:00 09/06/18 09:59 09/04/18 08:27 Zolpidem Tartrate (Ambien) 5 mg HSPRN PRN GT Insomnia 09/01/18 20:45 09/08/18 20:44 09/02/18 23:13 Andres Allan MD Sep 04, 2018 11:08
--- NOTE | 2018-09-04 11:54 | Nephrology Progress Note ---
Assessment/Plan Assessment Seee below Plan ESRD HD q MWF Anemia of CKD , DARRYN high dose. Transfuse PRN. A. 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 with LAE. LVEF 65% . On Eliquis. Post trach + PEG . Referred to [facility]. Pt's son agreeable to [facility]. See orders. Still needs extensive Vascular W/U. Subjective Subjective No new c/o Objective Objective Last 24 Hour Vital Signs Date Time Temp Pulse Resp B/P (MAP) Pulse Ox O2 Delivery O2 Flow Rate FiO2 09/04/18 11:27 79 18 40 09/04/18 09:14 73 19 40 09/04/18 09:00 40 09/04/18 08:27 135/56 09/04/18 08:00 96.6 80 17 135/56 (82) 100 09/04/18 08:00 Mechanical Ventilator Mechanical Ventilator 09/04/18 07:58 75 09/04/18 07:13 97.4 09/04/18 07:08 80 19 40 09/04/18 05:36 83 22 40 09/04/18 04:00 Mechanical Ventilator Mechanical Ventilator 09/04/18 04:00 97.4 81 19 134/50 (78) 100 09/04/18 04:00 40 09/04/18 04:00 75 09/04/18 03:05 98 14 40 09/04/18 01:10 98 13 40 09/04/18 00:00 10 09/04/18 00:00 40 09/04/18 00:00 Mechanical Ventilator Mechanical Ventilator 09/04/18 00:00 97.7 112 21 140/81 (100) 100 09/03/18 23:14 81 16 40 09/03/18 21:30 81 16 40 09/03/18 20:14 127/40 09/03/18 20:00 Mechanical Ventilator Mechanical Ventilator 09/03/18 20:00 78 09/03/18 20:00 40 09/03/18 20:00 98.2 85 17 127/34 (65) 100 09/03/18 19:11 78 16 40 09/03/18 18:00 Mechanical Ventilator Mechanical Ventilator 09/03/18 17:27 87 21 40 09/03/18 16:59 82 09/03/18 16:00 40 09/03/18 16:00 Mechanical Ventilator Mechanical Ventilator 09/03/18 16:00 98.6 92 20 110/55 (73) 98 09/03/18 15:00 89 20 40 09/03/18 13:53 88 09/03/18 13:10 87 22 40 09/03/18 12:05 Mechanical Ventilator Mechanical Ventilator 09/03/18 12:00 40 Intake and Output 09/03/18 09/04/18 19:00 07:00 Intake Total 860 ml 710 ml Output Total 100 ml Balance 860 ml 610 ml Free Water 160 ml 50 ml IV Total 220 ml 220 ml Tube Feeding 480 ml 440 ml Stool Total 100 ml # Voids 1 Laboratory Tests 09/04/18 09:02: White Blood Count 14.8H, Red Blood Count 2.81L, Hemoglobin 8.3L, Hematocrit 26.9L, Mean Corpuscular Volume 96, Mean Corpuscular Hemoglobin 29.5, Mean Corpuscular Hemoglobin Concent 30.8L, Red Cell Distribution Width 18.3H, Platelet Count 366, Mean Platelet Volume 6.0L, Neutrophils (%) (Auto) , Lymphocytes (%) (Auto) , Monocytes (%) (Auto) , Eosinophils (%) (Auto) , Basophils (%) (Auto) , Differential Total Cells Counted 100, Neutrophils % ( Manual) 93H, Lymphocytes % (Manual) 3L, Monocytes % (Manual) 3, Eosinophils % ( Manual) 1, Basophils % (Manual) 0, Band Neutrophils 0, Platelet Estimate Adequate, Platelet Morphology Normal, Hypochromasia 2+, Anisocytosis 1+, Sodium Level 131L, Potassium Level 4.1, Chloride Level 96L, Carbon Dioxide Level 25, Anion Gap 10, Blood Urea Nitrogen 44H, Creatinine 2.4H, Estimat Glomerular Filtration Rate , Glucose Level 123H, Calcium Level 9.7, Phosphorus Level 3.9, Magnesium Level 2.9H Height (Feet): 5 Height (Inches): 2.00 Weight (Pounds): 115 Objective On vent. Trach clean. Cv IRR/IRR Lungs B ronchi. Abd SNT. BS + PEG. E Rt. foot diabetic ulcers Chase He MD Sep 04, 2018 11:54
[2018-09-04 12:00] VITALS: BP 103/50
[2018-09-04 16:00] VITALS: BP 114/55
[2018-09-04] MEDS: LORazepam 0.5mg tab ORAL PRN (16:52)
--- NOTE | 2018-09-04 19:16 | NUR ---
HAND-OFF: Report given to ann hair.
--- NOTE | 2018-09-04 19:20 | NUR ---
NURSE NOTES: Report received from BALDO Croft. Observed pt sleeping on the bed, no distress noted at this time. SR with classroom monitor. Trach on vent, with Shiley 8, AC 8, TD 450, FiO2 40%, PEEP of 5, saturating at 96%. GT site intact and patent, running Nepro 40cc/hr. Rectal tube intact and draining well. Bed in the lowest position. Side rails up x 3. Call light within reach. Will continue to monitor.
--- NOTE | 2018-09-04 19:57 | Cardiology Progress Note ---
Assessment/Plan Assessment/Plan the patient had episodes of atrial fibrillation, on ECG, but not seen on telemetry, probably ws very short she is stable anticoagulated Subjective Subjective The patient is with tach, she is alert, but unable to speak, she denies palpitations or shortness of breath her son is at the bedside Objective Last 24 Hour Vital Signs Date Time Temp Pulse Resp B/P (MAP) Pulse Ox O2 Delivery O2 Flow Rate FiO2 09/04/18 17:15 72 18 40 09/04/18 16:00 97.2 73 18 114/55 (74) 100 09/04/18 16:00 40 09/04/18 16:00 Mechanical Ventilator Mechanical Ventilator 09/04/18 16:00 72 09/04/18 15:26 81 18 40 09/04/18 13:42 71 18 40 09/04/18 12:00 65 09/04/18 12:00 Mechanical Ventilator Mechanical Ventilator 09/04/18 12:00 97.2 68 19 103/50 (67) 99 09/04/18 12:00 40 09/04/18 11:27 79 18 40 09/04/18 09:14 73 19 40 09/04/18 09:00 40 09/04/18 08:27 135/56 09/04/18 08:00 96.6 80 17 135/56 (82) 100 09/04/18 08:00 Mechanical Ventilator Mechanical Ventilator 09/04/18 07:58 75 09/04/18 07:13 97.4 09/04/18 07:08 80 19 40 09/04/18 05:36 83 22 40 09/04/18 04:00 Mechanical Ventilator Mechanical Ventilator 09/04/18 04:00 97.4 81 19 134/50 (78) 100 09/04/18 04:00 40 09/04/18 04:00 75 09/04/18 03:05 98 14 40 09/04/18 01:10 98 13 40 09/04/18 00:00 10 09/04/18 00:00 40 09/04/18 00:00 Mechanical Ventilator Mechanical Ventilator 09/04/18 00:00 97.7 112 21 140/81 (100) 100 09/03/18 23:14 81 16 40 09/03/18 21:30 81 16 40 09/03/18 20:14 127/40 09/03/18 20:00 Mechanical Ventilator Mechanical Ventilator 09/03/18 20:00 78 09/03/18 20:00 40 09/03/18 20:00 98.2 85 17 127/34 (65) 100 General Appearance: on vent, other - trach EENT: PERRL/EOMI Neck: supple, no JVD Rhythm: SB, Afib Cardiovascular: normal rate Respiratory/Chest: crackles/rales Abdomen: distended, other - gtube Extremities: normal capillary refill Neurologic: refractory specialist II-XII grossly normal Intake and Output 09/03/18 09/04/18 19:00 07:00 Intake Total 860 ml 710 ml Output Total 100 ml Balance 860 ml 610 ml Free Water 160 ml 50 ml IV Total 220 ml 220 ml Tube Feeding 480 ml 440 ml Stool Total 100 ml # Voids 1 Laboratory Tests Test 09/04/18 09:02 White Blood Count 14.8 K/UL (4.8-10.8) H Red Blood Count 2.81 M/UL (4.20-5.40) L Hemoglobin 8.3 G/DL (12.0-16.0) L Hematocrit 26.9 % (37.0-47.0) L Mean Corpuscular Volume 96 FL (80-99) Mean Corpuscular Hemoglobin 29.5 PG (27.0-31.0) Mean Corpuscular Hemoglobin Concent 30.8 G/DL (32.0-36.0) L Red Cell Distribution Width 18.3 % (11.6-14.8) H Platelet Count 366 K/UL (150-450) Mean Platelet Volume 6.0 FL (6.5-10.1) L Neutrophils (%) (Auto) % (45.0-75.0) Lymphocytes (%) (Auto) % (20.0-45.0) Monocytes (%) (Auto) % (1.0-10.0) Eosinophils (%) (Auto) % (0.0-3.0) Basophils (%) (Auto) % (0.0-2.0) Differential Total Cells Counted 100 Neutrophils % (Manual) 93 % (45-75) H Lymphocytes % (Manual) 3 % (20-45) L Monocytes % (Manual) 3 % (1-10) Eosinophils % (Manual) 1 % (0-3) Basophils % (Manual) 0 % (0-2) Band Neutrophils 0 % (0-8) Platelet Estimate Adequate Platelet Morphology Normal Hypochromasia 2+ Anisocytosis 1+ Sodium Level 131 MMOL/L (136-145) L Potassium Level 4.1 MMOL/L (3.5-5.1) Chloride Level 96 MMOL/L (98-107) L Carbon Dioxide Level 25 MMOL/L (21-32) Anion Gap 10 mmol/L (5-15) Blood Urea Nitrogen 44 mg/dL (7-18) H Creatinine 2.4 MG/DL (0.55-1.30) H Estimat Glomerular Filtration Rate mL/min (>60) Glucose Level 123 MG/DL (74-106) H Calcium Level 9.7 MG/DL (8.5-10.1) Phosphorus Level 3.9 MG/DL (2.5-4.9) Magnesium Level 2.9 MG/DL (1.8-2.4) H Microbiology Date/Time Source Procedure Growth Status 09/03/18 03:16 Blood Blood Culture - Preliminary NO GROWTH AFTER 24 HOURS Resulted 09/03/18 06:00 Sputum Gram Stain - Final Resulted 09/03/18 06:00 Sputum Sputum Culture Pending Resulted 09/03/18 06:00 Stool Clostridium difficile Toxin Assay - Final Complete Karena Dahl MD Sep 04, 2018 19:57
[2018-09-04 20:00] VITALS: BP 160/69
[2018-09-04] MEDS: Dyna-Hex 2% Top Sol 2oz TOPIC SCH (20:28)
--- NOTE | 2018-09-04 22:00 | NUR ---
NURSE NOTES: Observed pt becomes agitated, trying to pull tubing around her and take off her gown. pt c/o insomnia. Position changed with pillow support and distraction measures done. Will continue to monitor.
[2018-09-04] MEDS: Zolpidem 5mg tab GT PRN (22:27)
[2018-09-04] MEDS ORDERED: NS 275ml ONE (22:34)
[2018-09-05] VITALS: BP 116/33
[2018-09-05 04:00] VITALS: BP 142/54
[2018-09-05] MEDS: Piperacillin/Tazobactam 2.25 GM in D5W 110 ML IV SCH ×3 (04:26→22:32)
[2018-09-05 05:56] LABS: ANION GAP 9 mmol/L (5-15); BLOOD UREA NITROGEN 56 mg/dL (7-18); CALCIUM 9.3 MG/DL (8.5-10.1); CARBON DIOXIDE 25 MMOL/L (21-32); CHLORIDE 94 MMOL/L (98-107); CREATININE 2.4 MG/DL (0.55-1.30); PHOSPHORUS 4.2 MG/DL (2.5-4.9); SODIUM 128 MMOL/L (136-145)
--- NOTE | 2018-09-05 07:31 | NUR ---
HAND-OFF: Report given to BALDO Durbin. Observed pt lying on bed, no acute distress noted at this time.
--- NOTE | 2018-09-05 07:32 | NUR ---
NURSE NOTES: RECEIVED PATIENT FROM Gui TRACY RN. PATIENT IS LYING IN BED, ASLEEP. HOOKED TO GAMBLING BROKER. TRACH TO VENT. SHILEY 8. WITH VENT SETTINGS AC 8, TV 450, FIO2 40, PEEP 5. NO SIGNS OF CARDIO OR RESPI DISTRESS OF THE MOMENT. GT IN PLACE, DRY AND INTACT/ WITH GTF NEPRO AT 40CC/HR. NOTED RECTAL TUBE AND SKIN ALTERATIONS. NOTED R UA MIDLINE AND L UA AV SHUNT FOR HD PORT. SCHEDULED FOR HD TODAY. CALL LIGHT WITHIN REACH. BED AT LOWEST POSITION. SIDE RAILS UP. WILL CONTINUE TO MONITOR.
[2018-09-05 08:00] VITALS: BP 162/45
[2018-09-05] MEDS: Eliquis 2.5mg tablet GT SCH ×2 (08:08→18:02)
[2018-09-05] MEDS: Minoxidil 2.5mg tab GT SCH ×2 (08:08→22:32)
[2018-09-05] MEDS: Amiodarone 200mg tab GT SCH (08:09)
[2018-09-05] MEDS: Vitamin D 1000 IU Tab GT SCH (08:09)
--- NOTE | 2018-09-05 09:54 | Pulmonology Progress Note ---
Assessment/Plan Assessment/Plan IMPRESSION: 1. Hypotension. Resolved. 2. Sepsis. Resolved 3. Atrial fibrillation. 4. Bradycardia. 5. Diabetes mellitus. 6. End-stage renal disease on dialysis. 7. Left lung collapse. Resolved 8. Respiratory failure. now status post tracheostomy 9. Dysphagia. 10. Dementia. 11. Anemia DISCUSSION: 1. Continue medications. 2. CXR improved 3. Status post tracheostomy 4. S/p G-tube 5. Continue HD Andres Allan M.D. Subjective Interval Events: None new Constitutional: Reports: no symptoms HEENT: Repors: no symptoms Respiratory: Reports: no symptoms Gastrointestinal/Abdominal: Reports: no symptoms Genitourinary: Reports: no symptoms Allergies: Coded Allergies: No Known Allergies (Unverified , 07/25/18) Objective Last 24 Hour Vital Signs Date Time Temp Pulse Resp B/P (MAP) Pulse Ox O2 Delivery O2 Flow Rate FiO2 09/05/18 08:56 85 20 40 09/05/18 08:08 142/54 09/05/18 08:00 40 09/05/18 08:00 Mechanical Ventilator Mechanical Ventilator 09/05/18 08:00 97.6 76 17 162/45 (84) 100 09/05/18 07:34 68 09/05/18 07:07 66 14 40 09/05/18 05:21 85 23 40 09/05/18 04:00 65 09/05/18 04:00 Mechanical Ventilator Mechanical Ventilator 09/05/18 04:00 40 09/05/18 04:00 97.4 72 18 142/54 (83) 100 09/05/18 03:25 65 13 40 09/05/18 01:04 66 12 40 09/05/18 00:00 97.9 72 18 116/33 (60) 100 09/05/18 00:00 68 09/05/18 00:00 Mechanical Ventilator Mechanical Ventilator 09/05/18 00:00 40 09/04/18 23:10 69 18 40 09/04/18 20:49 75 18 40 09/04/18 20:29 160/69 09/04/18 20:00 65 09/04/18 20:00 Mechanical Ventilator Mechanical Ventilator 09/04/18 20:00 40 09/04/18 20:00 97.7 69 18 160/69 (99) 100 09/04/18 19:52 75 18 40 09/04/18 17:15 72 18 40 09/04/18 16:00 97.2 73 18 114/55 (74) 100 09/04/18 16:00 40 09/04/18 16:00 Mechanical Ventilator Mechanical Ventilator 09/04/18 16:00 72 09/04/18 15:26 81 18 40 09/04/18 13:42 71 18 40 09/04/18 12:00 65 09/04/18 12:00 Mechanical Ventilator Mechanical Ventilator 09/04/18 12:00 97.2 68 19 103/50 (67) 99 09/04/18 12:00 40 09/04/18 11:27 79 18 40 Intake and Output 09/04/18 09/05/18 19:00 07:00 Intake Total 710 ml 3350 ml Output Total 120 ml 5020 ml Balance 590 ml -1670 ml Intake Oral 0 ml Free Water 50 ml 120 ml IV Total 220 ml 220 ml Tube Feeding 440 ml 480 ml Hemodialysis 2500 ml Other 30 ml Output Urine Total 200 ml Stool Total 120 ml 120 ml Hemodialysis UF 2500 ml Estimated Blood Loss 200 ml Other 2000 ml # Voids 3 # Bowel Movements 1 General Appearance: no acute distress HEENT: normocephalic Respiratory/Chest: chest wall non-tender, lungs clear Cardiovascular: normal peripheral pulses, normal rate Abdomen: normal bowel sounds, soft, non tender Microbiology Date/Time Source Procedure Growth Status 09/03/18 03:16 Blood Blood Culture - Preliminary NO GROWTH AFTER 48 HOURS Resulted 09/03/18 06:00 Sputum Gram Stain - Final Resulted 09/03/18 06:00 Sputum Culture - Preliminary Gram Negative Bacillus 1 Resulted 09/03/18 06:00 Stool Clostridium difficile Toxin Assay - Final Complete 09/04/18 12:15 Indwelling Cath Urine Culture - Preliminary Gram Negative Bacillus 1 Resulted Laboratory Tests 09/05/18 03:40: Sodium Level 128L, Potassium Level 4.0, Chloride Level 94L, Carbon Dioxide Level 25, Anion Gap 9, Blood Urea Nitrogen 56H, Creatinine 2.4H, Estimat Glomerular Filtration Rate , Glucose Level 132H, Calcium Level 9.3, Phosphorus Level 4.2 Current Medications Medications (Trade) Dose Ordered Sig/Renetta Route PRN Reason Start Time Stop Time Status Last Admin Dose Admin Acetaminophen (Tylenol) 650 mg Q6H PRN GT Mild Pain/Temp > 100.5 08/21/18 16:00 09/18/18 15:59 08/26/18 12:03 Acetaminophen/ Hydrocodone Bitart ([place] 5/325) 1 tab Q6H PRN GT For Pain 08/31/18 18:30 09/07/18 18:29 09/04/18 06:43 Amiodarone HCl (Cordarone) 200 mg DAILY GT 08/31/18 09:00 09/24/18 20:59 09/05/18 08:09 Apixaban (Eliquis) 2.5 mg BID GT 08/25/18 18:00 09/24/18 17:59 09/05/18 08:08 Artificial Tears (Akwa-Tears) 1 drop Q4H PRN BOTH EYES Dry Eyes 08/21/18 15:30 09/19/18 15:29 08/30/18 16:53 Chlorhexidine Gluconate (Rylie-Hex 2%) 1 applic DAILY@2000 TOPIC 08/28/18 20:00 09/27/18 19:59 09/04/18 20:28 Collagenase (Santyl) 1 applic DAILY TOPIC 09/05/18 21:00 10/05/18 08:59 Lansoprazole (Prevacid) 30 mg Q12HR GT 08/25/18 21:00 09/24/18 20:59 09/05/18 08:08 Lorazepam (Ativan) 0.5 mg Q6H PRN ORAL For Anxiety 09/04/18 15:45 09/11/18 15:44 09/04/18 16:52 Minoxidil (Loniten) 2.5 mg Q12HR GT 08/25/18 21:00 09/24/18 20:59 09/05/18 08:08 Piperacillin Sod/ Tazobactam Sod 2.25 gm/Dextrose 110 ml @ 220 mls/hr Q8H IV 09/03/18 12:00 09/10/18 11:59 09/05/18 04:26 Sodium Chloride 1,000 ml @ 500 mls/hr Q2H PRN IVLG sbp<90 during hd 09/05/18 11:54 09/05/18 23:59 Sodium Chloride ([place] Nasal [place]) 1 spray Q4H PRN NASAL dry nose 08/21/18 14:30 09/19/18 18:29 08/23/18 11:49 Vancomycin HCl (Vanco rx to dose) 1 ea DAILY PRN MISC Per rx protocol 09/03/18 00:30 10/03/18 00:29 Vitamin D (Vitamin D) 1,000 intlu DAILY GT 08/22/18 09:00 09/06/18 09:59 09/05/18 08:09 Zolpidem Tartrate (Ambien) 5 mg HSPRN PRN GT Insomnia 09/01/18 20:45 09/08/18 20:44 09/04/18 22:27 Andres Allan MD Sep 05, 2018 09:54
--- NOTE | 2018-09-05 10:40 | NUR ---
RD ASSESSMENT & RECOMMENDATIONS SEE CARE ACTIVITY FOR COMPLETE ASSESSMENT DAILY ESTIMATED NEEDS: Needs based on Critical care + Advanced Wounds + ESRD/ 60kg 22-30 kcals/kg 1821-2110 total kcals 1.5-2.0 g protein/kg 90-120g g total protein Fluid per MD NUTRITION DIAGNOSIS: * Swallowing difficulty R/T respiratory status as evidenced by pt s/p self extubation, s/p code blue, reintubated, now s/p trach and PEG placement. * Increased kcal/prot needs R/T wound healing as evidenced by pt admitted w/ multiple wounds including stage 4 sacral wound, refer to eval. * Altered nutrition related lab values R/T ESRD dx, clinical condition as evidenced by low K (2.7-> wnl), episodes of hypoglycemia (68 69-> now resolved), elev creat (4.6-> 2.4), low Na (132-> 128). CURRENT TF: Nepro @40ml/hr + PS BID ENTERAL NUTRITION RECOMMENDATIONS: Nepro @40ml/hr x 24 hrs + Prosource 1pkt BID to provide 960ml, 1728kcal, 78g + 22g prot, 698ml free water 1. Maintain current rate + Prosource 1 pack BID to better meet est protein needs 2. HOB over 30 degrees 3. Decrease water flushes to improve Na level ADDITIONAL RECOMMENDATIONS: * RECALIBRATE BED SCALE POST TRACH AND PEG PROCEDURES * Wound healing- Nephrovite x 1, Continue Afshin 1pkt BID * Monitor for hypoglycemia DECREASE water flushes to help improve Na level->consistently low Na Probiotics for loose BM * Monitor lytes daily w/ con't loose stool
--- NOTE | 2018-09-05 11:13 | Infectious Diseases Prog Note ---
Assessment/Plan Assessment/Plan antibiotics : vancomycin iv, zosyn A 1. gram negative UTI 2. gram negative pneumonia 3. leucocytosis improving 4. respiratory failure s/p tracheostomy 5. renal failure 6. 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 pleural effusion P 1. continue iv vancomycin, zosyn 2. will follow up cultures Subjective ROS Limited/Unobtainable: Yes Allergies: Coded Allergies: No Known Allergies (Unverified , 07/25/18) Objective Vital Signs Last 24 Hour Vital Signs Date Time Temp Pulse Resp B/P (MAP) Pulse Ox O2 Delivery O2 Flow Rate FiO2 09/05/18 08:56 85 20 40 09/05/18 08:08 142/54 09/05/18 08:00 40 09/05/18 08:00 Mechanical Ventilator Mechanical Ventilator 09/05/18 08:00 97.6 76 17 162/45 (84) 100 09/05/18 07:34 68 09/05/18 07:07 66 14 40 09/05/18 05:21 85 23 40 09/05/18 04:00 65 09/05/18 04:00 Mechanical Ventilator Mechanical Ventilator 09/05/18 04:00 40 09/05/18 04:00 97.4 72 18 142/54 (83) 100 09/05/18 03:25 65 13 40 09/05/18 01:04 66 12 40 09/05/18 00:00 97.9 72 18 116/33 (60) 100 09/05/18 00:00 68 09/05/18 00:00 Mechanical Ventilator Mechanical Ventilator 09/05/18 00:00 40 09/04/18 23:10 69 18 40 09/04/18 20:49 75 18 40 09/04/18 20:29 160/69 09/04/18 20:00 65 09/04/18 20:00 Mechanical Ventilator Mechanical Ventilator 09/04/18 20:00 40 09/04/18 20:00 97.7 69 18 160/69 (99) 100 09/04/18 19:52 75 18 40 09/04/18 17:15 72 18 40 09/04/18 16:00 97.2 73 18 114/55 (74) 100 09/04/18 16:00 40 09/04/18 16:00 Mechanical Ventilator Mechanical Ventilator 09/04/18 16:00 72 09/04/18 15:26 81 18 40 09/04/18 13:42 71 18 40 09/04/18 12:00 65 09/04/18 12:00 Mechanical Ventilator Mechanical Ventilator 09/04/18 12:00 97.2 68 19 103/50 (67) 99 09/04/18 12:00 40 09/04/18 11:27 79 18 40 Height (Feet): 5 Height (Inches): 2.00 Weight (Pounds): 120 HEENT: status post trach Respiratory/Chest: lungs clear Cardiovascular: normal rate, regular rhythm, no gallop/murmur Abdomen: soft, non tender, other - GT Extremities: no edema, other - right arm PICC Microbiology Date/Time Source Procedure Growth Status 09/03/18 03:16 Blood Blood Culture - Preliminary NO GROWTH AFTER 48 HOURS Resulted 09/03/18 06:00 Sputum Gram Stain - Final Resulted 09/03/18 06:00 Sputum Culture - Preliminary Gram Negative Bacillus 1 Resulted 09/03/18 06:00 Stool Clostridium difficile Toxin Assay - Final Complete 09/04/18 12:15 Indwelling Cath Urine Culture - Preliminary Gram Negative Bacillus 1 Resulted Laboratory Tests Test 09/05/18 03:40 Sodium Level 128 MMOL/L (136-145) L Potassium Level 4.0 MMOL/L (3.5-5.1) Chloride Level 94 MMOL/L (98-107) L Carbon Dioxide Level 25 MMOL/L (21-32) Anion Gap 9 mmol/L (5-15) Blood Urea Nitrogen 56 mg/dL (7-18) H Creatinine 2.4 MG/DL (0.55-1.30) H Estimat Glomerular Filtration Rate mL/min (>60) Glucose Level 132 MG/DL (74-106) H Calcium Level 9.3 MG/DL (8.5-10.1) Phosphorus Level 4.2 MG/DL (2.5-4.9) Current Medications Medications (Trade) Dose Ordered Sig/Renetta Route PRN Reason Start Time Stop Time Status Last Admin Dose Admin Acetaminophen (Tylenol) 650 mg Q6H PRN GT Mild Pain/Temp > 100.5 08/21/18 16:00 09/18/18 15:59 08/26/18 12:03 Acetaminophen/ Hydrocodone Bitart ([place] 5/325) 1 tab Q6H PRN GT For Pain 08/31/18 18:30 09/07/18 18:29 09/04/18 06:43 Amiodarone HCl (Cordarone) 200 mg DAILY GT 08/31/18 09:00 09/24/18 20:59 09/05/18 08:09 Apixaban (Eliquis) 2.5 mg BID GT 08/25/18 18:00 09/24/18 17:59 09/05/18 08:08 Artificial Tears (Akwa-Tears) 1 drop Q4H PRN BOTH EYES Dry Eyes 08/21/18 15:30 09/19/18 15:29 08/30/18 16:53 Chlorhexidine Gluconate (Rylie-Hex 2%) 1 applic DAILY@1999 TOPIC 08/28/18 20:00 09/27/18 19:59 09/04/18 20:28 Collagenase (Santyl) 1 applic DAILY TOPIC 09/05/18 21:00 10/05/18 08:59 Lansoprazole (Prevacid) 30 mg Q12HR GT 08/25/18 21:00 09/24/18 20:59 09/05/18 08:08 Lorazepam (Ativan) 0.5 mg Q6H PRN ORAL For Anxiety 09/04/18 15:45 09/11/18 15:44 09/04/18 16:52 Minoxidil (Loniten) 2.5 mg Q12HR GT 08/25/18 21:00 09/24/18 20:59 09/05/18 08:08 Piperacillin Sod/ Tazobactam Sod 2.25 gm/Dextrose 110 ml @ 220 mls/hr Q8H IV 09/03/18 12:00 09/10/18 11:59 09/05/18 04:26 Sodium Chloride 1,000 ml @ 500 mls/hr Q2H PRN IVLG sbp<90 during hd 09/05/18 11:54 09/05/18 23:59 Sodium Chloride ([place] Nasal [place]) 1 spray Q4H PRN NASAL dry nose 08/21/18 14:30 09/19/18 18:29 08/23/18 11:49 Vancomycin HCl (Vanco rx to dose) 1 ea DAILY PRN MISC Per rx protocol 09/03/18 00:30 10/03/18 00:29 Vitamin D (Vitamin D) 1,000 intlu DAILY GT 08/22/18 09:00 09/06/18 09:59 09/05/18 08:09 Zolpidem Tartrate (Ambien) 5 mg HSPRN PRN GT Insomnia 09/01/18 20:45 09/08/18 20:44 09/04/18 22:27 Omid Morfin MD Sep 05, 2018 11:13
--- NOTE | 2018-09-05 11:28 | GI Progress Note ---
Assessment/Plan Problems: (1) Encounter for PEG (percutaneous endoscopic gastrostomy) ICD Codes: Z43.1 - Encounter for attention to gastrostomy SNOMED: 951776071, 851559001 (2) Severe malnutrition ICD Codes: E43 - Unspecified severe protein-calorie malnutrition SNOMED: 38643125 (3) Dehydration ICD Codes: E86.0 - Dehydration SNOMED: 85080080 Status: stable Status Narrative Discussed with Dr. Cox. Assessment/Plan Assessment - Dysphagia - Resp failure - ESRD - Anemia - Status post PEG, tolerating feeds Recommendations 1. Abdominal binder. 2. Elevate the head of the bed at all times. 3. G-tube flush. 4. G-tube care. 5. tube feeding later today per RD to goal Monitor H&H, PRN transfusions PPI Electrolyte correction Follow-up labs The patient was seen and examined at bedside and all new and available data was reviewed in the patients chart. I agree with the above findings, impression and plan. (Patient seen earlier today. Signature stamp does not reflect patient encounter time.). - Oc Cox MD Subjective Subjective limited Objective Last 24 Hour Vital Signs Date Time Temp Pulse Resp B/P (MAP) Pulse Ox O2 Delivery O2 Flow Rate FiO2 09/05/18 11:16 96 20 40 09/05/18 08:56 85 20 40 09/05/18 08:08 142/54 09/05/18 08:00 40 09/05/18 08:00 Mechanical Ventilator Mechanical Ventilator 09/05/18 08:00 97.6 76 17 162/45 (84) 100 09/05/18 07:34 68 09/05/18 07:07 66 14 40 09/05/18 05:21 85 23 40 09/05/18 04:00 65 09/05/18 04:00 Mechanical Ventilator Mechanical Ventilator 09/05/18 04:00 40 09/05/18 04:00 97.4 72 18 142/54 (83) 100 09/05/18 03:25 65 13 40 09/05/18 01:04 66 12 40 09/05/18 00:00 97.9 72 18 116/33 (60) 100 09/05/18 00:00 68 09/05/18 00:00 Mechanical Ventilator Mechanical Ventilator 09/05/18 00:00 40 09/04/18 23:10 69 18 40 09/04/18 20:49 75 18 40 09/04/18 20:29 160/69 09/04/18 20:00 65 09/04/18 20:00 Mechanical Ventilator Mechanical Ventilator 09/04/18 20:00 40 09/04/18 20:00 97.7 69 18 160/69 (99) 100 09/04/18 19:52 75 18 40 09/04/18 17:15 72 18 40 09/04/18 16:00 97.2 73 18 114/55 (74) 100 09/04/18 16:00 40 09/04/18 16:00 Mechanical Ventilator Mechanical Ventilator 09/04/18 16:00 72 09/04/18 15:26 81 18 40 09/04/18 13:42 71 18 40 09/04/18 12:00 65 09/04/18 12:00 Mechanical Ventilator Mechanical Ventilator 09/04/18 12:00 97.2 68 19 103/50 (67) 99 09/04/18 12:00 40 09/04/18 11:27 79 18 40 Intake and Output 09/04/18 09/05/18 19:00 07:00 Intake Total 710 ml 3350 ml Output Total 120 ml 5020 ml Balance 590 ml -1670 ml Intake Oral 0 ml Free Water 50 ml 120 ml IV Total 220 ml 220 ml Tube Feeding 440 ml 480 ml Hemodialysis 2500 ml Other 30 ml Output Urine Total 200 ml Stool Total 120 ml 120 ml Hemodialysis UF 2500 ml Estimated Blood Loss 200 ml Other 2000 ml # Voids 3 # Bowel Movements 1 Laboratory Tests Test 09/05/18 03:40 Sodium Level 128 MMOL/L (136-145) L Potassium Level 4.0 MMOL/L (3.5-5.1) Chloride Level 94 MMOL/L (98-107) L Carbon Dioxide Level 25 MMOL/L (21-32) Anion Gap 9 mmol/L (5-15) Blood Urea Nitrogen 56 mg/dL (7-18) H Creatinine 2.4 MG/DL (0.55-1.30) H Estimat Glomerular Filtration Rate mL/min (>60) Glucose Level 132 MG/DL (74-106) H Calcium Level 9.3 MG/DL (8.5-10.1) Phosphorus Level 4.2 MG/DL (2.5-4.9) Microbiology Date/Time Source Procedure Growth Status 09/04/18 12:15 Indwelling Cath Urine Culture - Preliminary Gram Negative Bacillus 1 Resulted Height (Feet): 5 Height (Inches): 2.00 Weight (Pounds): 120 General Appearance: alert Cardiovascular: normal rate Respiratory/Chest: normal breath sounds Abdominal Exam: soft, GT site - Clean dry and intact Rita Quintanilla NP Sep 05, 2018 11:28
[2018-09-05 12:00] VITALS: BP 150/48
--- NOTE | 2018-09-05 15:31 | NUR ---
NURSE NOTES: PATIENT KEPT CLEAN AND DRY. TOLERATING TUBE FEEDING AND VENT SETTINGS. WILL CONTINUE TO MONITOR.
[2018-09-05 16:00] VITALS: BP 152/65
--- NOTE | 2018-09-05 16:38 | Nephrology Progress Note ---
Assessment/Plan Assessment Seee below Plan ESRD HD q MWF Anemia of CKD , DARRYN high dose. Transfuse PRN. A. 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 with LAE. LVEF 65% . On Eliquis. Post trach + PEG . Referred to [facility]. Pt's son agreeable to [facility]. See orders. Still needs extensive Vascular W/U. Subjective Subjective Calm when observed from distance. Gets very agitated when notices me!! Objective Objective Last 24 Hour Vital Signs Date Time Temp Pulse Resp B/P (MAP) Pulse Ox O2 Delivery O2 Flow Rate FiO2 09/05/18 15:30 71 14 40 09/05/18 13:07 75 21 40 09/05/18 12:00 40 09/05/18 12:00 Mechanical Ventilator Mechanical Ventilator 09/05/18 12:00 97.9 85 19 150/48 (82) 100 09/05/18 11:33 92 09/05/18 11:16 96 20 40 09/05/18 08:56 85 20 40 09/05/18 08:08 142/54 09/05/18 08:00 40 09/05/18 08:00 Mechanical Ventilator Mechanical Ventilator 09/05/18 08:00 97.6 76 17 162/45 (84) 100 09/05/18 07:34 68 09/05/18 07:07 66 14 40 09/05/18 05:21 85 23 40 09/05/18 04:00 65 09/05/18 04:00 Mechanical Ventilator Mechanical Ventilator 09/05/18 04:00 40 09/05/18 04:00 97.4 72 18 142/54 (83) 100 09/05/18 03:25 65 13 40 09/05/18 01:04 66 12 40 09/05/18 00:00 97.9 72 18 116/33 (60) 100 09/05/18 00:00 68 09/05/18 00:00 Mechanical Ventilator Mechanical Ventilator 09/05/18 00:00 40 09/04/18 23:10 69 18 40 09/04/18 20:49 75 18 40 09/04/18 20:29 160/69 09/04/18 20:00 65 09/04/18 20:00 Mechanical Ventilator Mechanical Ventilator 09/04/18 20:00 40 09/04/18 20:00 97.7 69 18 160/69 (99) 100 09/04/18 19:52 75 18 40 09/04/18 17:15 72 18 40 Intake and Output 09/04/18 09/05/18 19:00 07:00 Intake Total 710 ml 3350 ml Output Total 120 ml 5020 ml Balance 590 ml -1670 ml Intake Oral 0 ml Free Water 50 ml 120 ml IV Total 220 ml 220 ml Tube Feeding 440 ml 480 ml Hemodialysis 2500 ml Other 30 ml Output Urine Total 200 ml Stool Total 120 ml 120 ml Hemodialysis UF 2500 ml Estimated Blood Loss 200 ml Other 2000 ml # Voids 3 # Bowel Movements 1 Laboratory Tests 09/05/18 03:40: Sodium Level 128L, Potassium Level 4.0, Chloride Level 94L, Carbon Dioxide Level 25, Anion Gap 9, Blood Urea Nitrogen 56H, Creatinine 2.4H, Estimat Glomerular Filtration Rate , Glucose Level 132H, Calcium Level 9.3, Phosphorus Level 4.2 Height (Feet): 5 Height (Inches): 2.00 Weight (Pounds): 120 Objective On vent. Trach clean. Cv IRR/IRR Lungs B ronchi. Abd SNT. BS + PEG. E Rt. foot diabetic ulcers Chase He MD Sep 05, 2018 16:38
[2018-09-05] MEDS ORDERED: PPD Tuberculin Skin Test 5TU IDERMAL ONE (18:00)
--- NOTE | 2018-09-05 18:11 | NUR ---
CASE MANAGEMENT: REVIEW SI: ESRD ON HD TRACHEOSTOMY 08/15 PEG PLACEMENT 08/17 T 97.5 HR 87 RR 23 BP 152/65 SAT 99% MECH VENT FIO2 40 IS: MINOXIDIL GT Q12HR PROCRIT SQ MWF ELIQUIS NG BID AMIODARONE GT Q12HR GT FEEDING NEPRO @ 40ML/HR HD PRN STEP DOWN UNIT STATUS DCP: PATIENT IS FROM [facility]. [facility]
--- NOTE | 2018-09-05 19:02 | NUR ---
HAND-OFF: Report given to Nathaly Gonzalez RN.
--- NOTE | 2018-09-05 19:03 | NUR ---
NURSE NOTES: Received patient from BALDO Durbin. Patient is awake, alert and oriented x2. On Trach Shiley 8 to vent with setting of AC:8, TV:450, FiO2:40%, Peep:5 and saturating at 98%. Patient shows no signs of pain or distress, will continue plan of care.
[2018-09-05 20:00] VITALS: BP 150/41
--- NOTE | 2018-09-05 20:14 | NUR ---
RESPIRATORY NOTE: Pt was received stable, awake, and alert at vent settings AC 8, 450 VT, 35% PEEP +5. Pt is on a trach, Shiley 8. Suctioned with no complications. Rhonchi breath sounds. Alarms are on and audible. Vent is plugged into red outlet. No respiratory distress noted. Will continue to monitor closely.
[2018-09-05] MEDS: Dyna-Hex 2% Top Sol 2oz TOPIC SCH (22:32)
[2018-09-06] VITALS: BP 146/40
[2018-09-06] MEDS: Zolpidem 5mg tab GT PRN (00:26)
[2018-09-06 04:00] VITALS: BP 137/47
[2018-09-06] MEDS: Piperacillin/Tazobactam 2.25 GM in D5W 110 ML IV SCH ×3 (04:25→20:16)
[2018-09-06] MEDS ORDERED: Vancomycin 750mg/NS 250ml IVPB SCH (05:00)
--- NOTE | 2018-09-06 07:09 | NUR ---
HAND-OFF: Report given to BALDO Durbin.
--- NOTE | 2018-09-06 07:14 | NUR ---
NURSE NOTES: Received report from BALDO Diza. Alert, responsive, able to make needs known with writing board. Patient seen in bed in butler position, vent on previous setting. No respiratory distress noted at this time. Denies pain at this time. Midline to left upper arm is intact. GT feeding of nepro is running at 40cc/hr, tolerating well. GT site is intact. Rectal tube in place and is intact. Bed is in lowest position. Wrist restraint present, no redness present to bilateral wrist, pulse is palpable. Call light is within reach. Will continue to monitor.
--- NOTE | 2018-09-06 07:42 | NUR ---
RESPIRATORY NOTE: received pt on vent, trached with current vent settings. trach size shiley 8. pt not in resp distress at this time. will cont to monitor
[2018-09-06 08:00] VITALS: BP 102/73
[2018-09-06] MEDS: Minoxidil 2.5mg tab GT SCH ×2 (08:41→20:17)
[2018-09-06] MEDS: Amiodarone 200mg tab GT SCH (08:42)
[2018-09-06] MEDS: Eliquis 2.5mg tablet GT SCH ×2 (08:42→18:01)
[2018-09-06] MEDS: Vitamin D 1000 IU Tab GT SCH (08:42)
--- NOTE | 2018-09-06 11:01 | Infectious Diseases Prog Note ---
Assessment/Plan Assessment/Plan antibiotics : vancomycin iv, zosyn A 1. e.coli UTI 2. pseudomonas pneumonia 3. leucocytosis improving 4. respiratory failure s/p tracheostomy 5. renal failure 6. 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 pleural effusion P 1. continue iv zosyn 2. d/c iv vancomycin 3. start tygacil 4. will follow up cultures Subjective ROS Limited/Unobtainable: Yes Allergies: Coded Allergies: No Known Allergies (Unverified , 07/25/18) Objective Vital Signs Last 24 Hour Vital Signs Date Time Temp Pulse Resp B/P (MAP) Pulse Ox O2 Delivery O2 Flow Rate FiO2 09/06/18 09:30 77 18 40 09/06/18 08:41 102/73 09/06/18 08:00 Mechanical Ventilator Mechanical Ventilator 09/06/18 08:00 82 09/06/18 08:00 97.7 110 19 102/73 (83) 100 09/06/18 08:00 40 09/06/18 07:40 110 14 40 09/06/18 05:21 86 22 40 09/06/18 04:00 40 09/06/18 04:00 Mechanical Ventilator Mechanical Ventilator 09/06/18 04:00 98.1 80 20 137/47 (77) 100 09/06/18 03:36 79 09/06/18 03:31 78 17 40 09/06/18 02:03 89 20 40 09/06/18 00:00 Mechanical Ventilator Mechanical Ventilator 09/06/18 00:00 111 09/06/18 00:00 97.7 119 22 146/40 (75) 100 09/05/18 22:32 150/41 09/05/18 22:25 90 20 40 09/05/18 20:14 86 20 40 09/05/18 20:00 98.0 117 20 150/41 (77) 100 09/05/18 20:00 Mechanical Ventilator Mechanical Ventilator 09/05/18 20:00 120 09/05/18 20:00 40 09/05/18 17:05 83 18 40 09/05/18 16:00 Mechanical Ventilator Mechanical Ventilator 09/05/18 16:00 97.5 87 23 152/65 (94) 99 09/05/18 16:00 40 09/05/18 15:36 80 09/05/18 15:30 71 14 40 09/05/18 13:07 75 21 40 09/05/18 12:00 40 09/05/18 12:00 Mechanical Ventilator Mechanical Ventilator 09/05/18 12:00 97.9 85 19 150/48 (82) 100 09/05/18 11:33 92 09/05/18 11:16 96 20 40 Height (Feet): 5 Height (Inches): 2.00 Weight (Pounds): 120 HEENT: status post trach Respiratory/Chest: lungs clear Cardiovascular: normal rate, regular rhythm, no gallop/murmur Abdomen: soft, non tender, other - GT Extremities: no edema, other - right arm PICC Microbiology Date/Time Source Procedure Growth Status 09/04/18 12:15 Indwelling Cath Urine Culture - Preliminary Escherichia Coli Resulted Laboratory Tests Test 09/06/18 04:00 Random Vancomycin Level 9.3 ug/mL Hepatitis A IgM Antibody Pending Hepatitis B Surface Antigen Pending Hepatitis B Core IgM Antibody Pending Hepatitis C Antibody Pending Current Medications Medications (Trade) Dose Ordered Sig/Renetta Route PRN Reason Start Time Stop Time Status Last Admin Dose Admin Acetaminophen (Tylenol) 650 mg Q6H PRN GT Mild Pain/Temp > 100.5 08/21/18 16:00 09/18/18 15:59 08/26/18 12:03 Acetaminophen/ Hydrocodone Bitart ([place] 5/325) 1 tab Q6H PRN GT For Pain 08/31/18 18:30 09/07/18 18:29 09/04/18 06:43 Amiodarone HCl (Cordarone) 200 mg DAILY GT 08/31/18 09:00 09/24/18 20:59 09/06/18 08:42 Apixaban (Eliquis) 2.5 mg BID GT 08/25/18 18:00 09/24/18 17:59 09/06/18 08:42 Artificial Tears (Akwa-Tears) 1 drop Q4H PRN BOTH EYES Dry Eyes 08/21/18 15:30 09/19/18 15:29 08/30/18 16:53 Chlorhexidine Gluconate (Rylie-Hex 2%) 1 applic DAILY@2000 TOPIC 08/28/18 20:00 09/27/18 19:59 09/05/18 22:32 Collagenase (Santyl) 1 applic DAILY TOPIC 09/05/18 21:00 10/05/18 08:59 09/06/18 08:42 Lansoprazole (Prevacid) 30 mg Q12HR GT 08/25/18 21:00 09/24/18 20:59 09/06/18 08:41 Lorazepam (Ativan) 0.5 mg Q6H PRN ORAL For Anxiety 09/04/18 15:45 09/11/18 15:44 09/04/18 16:52 Minoxidil (Loniten) 2.5 mg Q12HR GT 08/25/18 21:00 09/24/18 20:59 09/05/18 22:32 Piperacillin Sod/ Tazobactam Sod 2.25 gm/Dextrose 110 ml @ 220 mls/hr Q8H IV 09/03/18 12:00 09/10/18 11:59 09/06/18 04:25 Sodium Chloride (Cataract Nasal [place]) 1 spray Q4H PRN NASAL dry nose 08/21/18 14:30 09/19/18 18:29 08/23/18 11:49 Vancomycin HCl (Vanco rx to dose) 1 ea DAILY PRN MISC Per rx protocol 09/03/18 00:30 10/03/18 00:29 Zolpidem Tartrate (Ambien) 5 mg HSPRN PRN GT Insomnia 09/01/18 20:45 09/08/18 20:44 09/06/18 00:26 Omid Morfin MD Sep 06, 2018 11:01
[2018-09-06 12:00] VITALS: BP 125/63
--- NOTE | 2018-09-06 12:06 | Cardiology Progress Note ---
Assessment/Plan Assessment/Plan 1. Hypotension, possibly sepsis versus volume. 2. Paroxysmal episodes of atrial fibrillation history. 3. Bradycardia secondary to medications, amiodarone possibly. 4. Diabetes mellitus. 5. End-stage renal disease, on hemodialysis. 6. Lung collapse. 7. Respiratory failure, status post intubation. 8. Dysphagia. 9. History of dementia. 10. Pulm htn 11. Pleural effusion 12. cardaic arrest 13. chest wall pain post cpr 14. hyponatremai mostly in sinus now amiod 200 mg daily vent support s/p trach peg done on minoxidl and hold parameter applied on elequis 2.5 mg bid for stroke prevention awaits snf na is lower will leave to dr salter Subjective ROS Limited/Unobtainable: Yes Subjective on the vent, has pain is in restriatns Objective Last 24 Hour Vital Signs Date Time Temp Pulse Resp B/P (MAP) Pulse Ox O2 Delivery O2 Flow Rate FiO2 09/06/18 11:30 82 19 40 09/06/18 09:30 77 18 40 09/06/18 08:41 102/73 09/06/18 08:00 Mechanical Ventilator Mechanical Ventilator 09/06/18 08:00 82 09/06/18 08:00 97.7 110 19 102/73 (83) 100 09/06/18 08:00 40 09/06/18 07:40 110 14 40 09/06/18 05:21 86 22 40 09/06/18 04:00 40 09/06/18 04:00 Mechanical Ventilator Mechanical Ventilator 09/06/18 04:00 98.1 80 20 137/47 (77) 100 09/06/18 03:36 79 09/06/18 03:31 78 17 40 09/06/18 02:03 89 20 40 09/06/18 00:00 Mechanical Ventilator Mechanical Ventilator 09/06/18 00:00 111 09/06/18 00:00 97.7 119 22 146/40 (75) 100 09/05/18 22:32 150/41 09/05/18 22:25 90 20 40 09/05/18 20:14 86 20 40 09/05/18 20:00 98.0 117 20 150/41 (77) 100 09/05/18 20:00 Mechanical Ventilator Mechanical Ventilator 09/05/18 20:00 120 09/05/18 20:00 40 09/05/18 17:05 83 18 40 09/05/18 16:00 Mechanical Ventilator Mechanical Ventilator 09/05/18 16:00 97.5 87 23 152/65 (94) 99 09/05/18 16:00 40 09/05/18 15:36 80 09/05/18 15:30 71 14 40 09/05/18 13:07 75 21 40 General Appearance: no apparent distress, alert, on vent, patient on isolation Cardiovascular: normal rate Respiratory/Chest: lungs clear Abdomen: normal bowel sounds, soft, tender Extremities: no swelling Intake and Output 09/05/18 09/06/18 19:00 07:00 Intake Total 790 ml 779.6 ml Balance 790 ml 779.6 ml Free Water 90 ml 100 ml IV Total 220 ml 239.6 ml Tube Feeding 480 ml 440 ml Laboratory Tests Test 09/06/18 04:00 Random Vancomycin Level 9.3 ug/mL Hepatitis A IgM Antibody Pending Hepatitis B Surface Antigen Pending Hepatitis B Core IgM Antibody Pending Hepatitis C Antibody Pending Microbiology Date/Time Source Procedure Growth Status 09/04/18 12:15 Indwelling Cath Urine Culture - Preliminary Escherichia Coli Resulted Angelo Butler MD Sep 06, 2018 12:06
[2018-09-06] MEDS: Norco 5mg/325mg tab GT PRN ×2 (12:07→18:02)
--- NOTE | 2018-09-06 12:47 | Pulmonology Progress Note ---
Assessment/Plan Assessment/Plan IMPRESSION: 1. Hypotension. Resolved. 2. Sepsis. Resolved 3. Atrial fibrillation. 4. Bradycardia. 5. Diabetes mellitus. 6. End-stage renal disease on dialysis. 7. Left lung collapse. Resolved 8. Respiratory failure. now status post tracheostomy 9. Dysphagia. 10. Dementia. 11. Anemia DISCUSSION: 1. Continue medications. 2. CXR improved 3. Status post tracheostomy 4. S/p G-tube 5. Continue HD Andres Allan M.D. Subjective Interval Events: No new events Constitutional: Reports: no symptoms HEENT: Repors: no symptoms Respiratory: Reports: no symptoms Cardiovascular: Reports: no symptoms Genitourinary: Reports: no symptoms Neurologic: Reports: no symptoms Allergies: Coded Allergies: No Known Allergies (Unverified , 07/25/18) Objective Last 24 Hour Vital Signs Date Time Temp Pulse Resp B/P (MAP) Pulse Ox O2 Delivery O2 Flow Rate FiO2 09/06/18 12:00 Mechanical Ventilator Mechanical Ventilator 09/06/18 11:30 82 19 40 09/06/18 09:30 77 18 40 09/06/18 08:41 102/73 09/06/18 08:00 Mechanical Ventilator Mechanical Ventilator 09/06/18 08:00 82 09/06/18 08:00 97.7 110 19 102/73 (83) 100 09/06/18 08:00 40 09/06/18 07:40 110 14 40 09/06/18 05:21 86 22 40 09/06/18 04:00 40 09/06/18 04:00 Mechanical Ventilator Mechanical Ventilator 09/06/18 04:00 98.1 80 20 137/47 (77) 100 09/06/18 03:36 79 09/06/18 03:31 78 17 40 09/06/18 02:03 89 20 40 09/06/18 00:00 Mechanical Ventilator Mechanical Ventilator 09/06/18 00:00 111 09/06/18 00:00 97.7 119 22 146/40 (75) 100 09/05/18 22:32 150/41 09/05/18 22:25 90 20 40 09/05/18 20:14 86 20 40 09/05/18 20:00 98.0 117 20 150/41 (77) 100 09/05/18 20:00 Mechanical Ventilator Mechanical Ventilator 09/05/18 20:00 120 09/05/18 20:00 40 09/05/18 17:05 83 18 40 09/05/18 16:00 Mechanical Ventilator Mechanical Ventilator 09/05/18 16:00 97.5 87 23 152/65 (94) 99 09/05/18 16:00 40 09/05/18 15:36 80 09/05/18 15:30 71 14 40 09/05/18 13:07 75 21 40 Intake and Output 09/05/18 09/06/18 19:00 07:00 Intake Total 790 ml 779.6 ml Balance 790 ml 779.6 ml Free Water 90 ml 100 ml IV Total 220 ml 239.6 ml Tube Feeding 480 ml 440 ml General Appearance: no acute distress HEENT: normocephalic Respiratory/Chest: chest wall non-tender, lungs clear Cardiovascular: normal peripheral pulses Abdomen: normal bowel sounds, soft, non tender Extremities: no cyanosis Microbiology Date/Time Source Procedure Growth Status 09/04/18 12:15 Indwelling Cath Urine Culture - Preliminary Escherichia Coli Resulted Laboratory Tests 09/06/18 04:00: Random Vancomycin Level 9.3, Hepatitis A IgM Antibody [Pending], Hepatitis B Surface Antigen [Pending], Hepatitis B Core IgM Antibody [Pending], Hepatitis C Antibody [Pending] Current Medications Medications (Trade) Dose Ordered Sig/Renetta Route PRN Reason Start Time Stop Time Status Last Admin Dose Admin Acetaminophen (Tylenol) 650 mg Q6H PRN GT Mild Pain/Temp > 100.5 08/21/18 16:00 09/18/18 15:59 08/26/18 12:03 Acetaminophen/ Hydrocodone Bitart ([place] 5/325) 1 tab Q6H PRN GT For Pain 08/31/18 18:30 09/07/18 18:29 09/06/18 12:07 Amiodarone HCl (Cordarone) 200 mg DAILY GT 08/31/18 09:00 09/24/18 20:59 09/06/18 08:42 Apixaban (Eliquis) 2.5 mg BID GT 08/25/18 18:00 09/24/18 17:59 09/06/18 08:42 Artificial Tears (Akwa-Tears) 1 drop Q4H PRN BOTH EYES Dry Eyes 08/21/18 15:30 09/19/18 15:29 08/30/18 16:53 Chlorhexidine Gluconate (Rylie-Hex 2%) 1 applic DAILY@1999 TOPIC 08/28/18 20:00 09/27/18 19:59 09/05/18 22:32 Collagenase (Santyl) 1 applic DAILY TOPIC 09/05/18 21:00 10/05/18 08:59 09/06/18 08:42 Lansoprazole (Prevacid) 30 mg Q12HR GT 08/25/18 21:00 09/24/18 20:59 09/06/18 08:41 Lorazepam (Ativan) 0.5 mg Q6H PRN ORAL For Anxiety 09/04/18 15:45 09/11/18 15:44 09/04/18 16:52 Minoxidil (Loniten) 2.5 mg Q12HR GT 08/25/18 21:00 09/24/18 20:59 09/05/18 22:32 Piperacillin Sod/ Tazobactam Sod 2.25 gm/Dextrose 110 ml @ 220 mls/hr Q8H IV 09/03/18 12:00 09/10/18 11:59 09/06/18 12:06 Sodium Chloride ([place] Nasal [place]) 1 spray Q4H PRN NASAL dry nose 08/21/18 14:30 09/19/18 18:29 08/23/18 11:49 Tigecycline 100 mg/Sodium Chloride 110 ml @ 110 mls/hr ONCE IVPB 09/06/18 14:00 09/06/18 16:00 Tigecycline 50 mg/ Sodium Chloride 110 ml @ 220 mls/hr EVERY 12 HOURS IVPB 09/07/18 09:00 09/14/18 08:59 Zolpidem Tartrate (Ambien) 5 mg HSPRN PRN GT Insomnia 09/01/18 20:45 09/08/18 20:44 09/06/18 00:26 Andres Allan MD Sep 06, 2018 12:47
--- NOTE | 2018-09-06 13:26 | Nephrology Progress Note ---
Assessment/Plan Assessment Seee below Plan ESRD HD q MWF Anemia of CKD , DARRYN high dose. Transfuse PRN. A. 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 with LAE. LVEF 65% . On Eliquis. Post trach + PEG . Referred to [facility]. Pt's son agreeable to [facility]. Referred again. See orders. Still needs extensive Vascular W/U. Subjective Subjective Calm when observed from distance. Gets very agitated when notices me!! Objective Objective Last 24 Hour Vital Signs Date Time Temp Pulse Resp B/P (MAP) Pulse Ox O2 Delivery O2 Flow Rate FiO2 09/06/18 12:00 Mechanical Ventilator Mechanical Ventilator 09/06/18 11:30 82 19 40 09/06/18 09:30 77 18 40 09/06/18 08:41 102/73 09/06/18 08:00 Mechanical Ventilator Mechanical Ventilator 09/06/18 08:00 82 09/06/18 08:00 97.7 110 19 102/73 (83) 100 09/06/18 08:00 40 09/06/18 07:40 110 14 40 09/06/18 05:21 86 22 40 09/06/18 04:00 40 09/06/18 04:00 Mechanical Ventilator Mechanical Ventilator 09/06/18 04:00 98.1 80 20 137/47 (77) 100 09/06/18 03:36 79 09/06/18 03:31 78 17 40 09/06/18 02:03 89 20 40 09/06/18 00:00 Mechanical Ventilator Mechanical Ventilator 09/06/18 00:00 111 09/06/18 00:00 97.7 119 22 146/40 (75) 100 09/05/18 22:32 150/41 09/05/18 22:25 90 20 40 09/05/18 20:14 86 20 40 09/05/18 20:00 98.0 117 20 150/41 (77) 100 09/05/18 20:00 Mechanical Ventilator Mechanical Ventilator 09/05/18 20:00 120 09/05/18 20:00 40 09/05/18 17:05 83 18 40 09/05/18 16:00 Mechanical Ventilator Mechanical Ventilator 09/05/18 16:00 97.5 87 23 152/65 (94) 99 09/05/18 16:00 40 09/05/18 15:36 80 09/05/18 15:30 71 14 40 Intake and Output 09/05/18 09/06/18 19:00 07:00 Intake Total 790 ml 779.6 ml Balance 790 ml 779.6 ml Free Water 90 ml 100 ml IV Total 220 ml 239.6 ml Tube Feeding 480 ml 440 ml Laboratory Tests 09/06/18 04:00: Random Vancomycin Level 9.3, Hepatitis A IgM Antibody [Pending], Hepatitis B Surface Antigen [Pending], Hepatitis B Core IgM Antibody [Pending], Hepatitis C Antibody [Pending] Height (Feet): 5 Height (Inches): 2.00 Weight (Pounds): 120 Objective On vent. Trach clean. Cv IRR/IRR Lungs B ronchi. Abd SNT. BS + PEG. E Rt. foot diabetic ulcers Chase He MD Sep 06, 2018 13:26
--- NOTE | 2018-09-06 13:38 | NUR ---
NURSE NOTES Received HD order, Called [facility], spoke to Guerda. HD is scheduled for 09/07/18.
[2018-09-06] MEDS ORDERED: Tigecycline 100 MG in NS 110 ML IVPB SCH (14:00)
[2018-09-06] MEDS: LORazepam 0.5mg tab ORAL PRN (14:07)
--- NOTE | 2018-09-06 14:33 | GI Progress Note ---
Assessment/Plan Problems: (1) Encounter for PEG (percutaneous endoscopic gastrostomy) ICD Codes: Z43.1 - Encounter for attention to gastrostomy SNOMED: 950067718, 528445055 (2) Severe malnutrition ICD Codes: E43 - Unspecified severe protein-calorie malnutrition SNOMED: 31530311 (3) Dehydration ICD Codes: E86.0 - Dehydration SNOMED: 72420534 Status: stable Status Narrative Discussed with Dr. Cox. Assessment/Plan Assessment - Dysphagia - Resp failure - ESRD - Anemia - Status post PEG, tolerating feeds Recommendations 1. Abdominal binder. 2. Elevate the head of the bed at all times. 3. G-tube flush. 4. G-tube care. 5. tube feeding later today per RD to goal Monitor H&H, PRN transfusions PPI Electrolyte correction Follow-up labs The patient was seen and examined at bedside and all new and available data was reviewed in the patients chart. I agree with the above findings, impression and plan. (Patient seen earlier today. Signature stamp does not reflect patient encounter time.). - Oc Cox MD Subjective Subjective limited Objective Last 24 Hour Vital Signs Date Time Temp Pulse Resp B/P (MAP) Pulse Ox O2 Delivery O2 Flow Rate FiO2 09/06/18 13:34 75 21 40 09/06/18 12:00 96.8 75 21 125/63 (83) 100 09/06/18 12:00 40 09/06/18 12:00 Mechanical Ventilator Mechanical Ventilator 09/06/18 11:45 74 09/06/18 11:30 82 19 40 09/06/18 09:30 77 18 40 09/06/18 08:41 102/73 09/06/18 08:00 Mechanical Ventilator Mechanical Ventilator 09/06/18 08:00 82 09/06/18 08:00 97.7 110 19 102/73 (83) 100 09/06/18 08:00 40 09/06/18 07:40 110 14 40 09/06/18 05:21 86 22 40 09/06/18 04:00 40 09/06/18 04:00 Mechanical Ventilator Mechanical Ventilator 09/06/18 04:00 98.1 80 20 137/47 (77) 100 09/06/18 03:36 79 09/06/18 03:31 78 17 40 09/06/18 02:03 89 20 40 09/06/18 00:00 Mechanical Ventilator Mechanical Ventilator 09/06/18 00:00 111 09/06/18 00:00 97.7 119 22 146/40 (75) 100 09/05/18 22:32 150/41 09/05/18 22:25 90 20 40 09/05/18 20:14 86 20 40 09/05/18 20:00 98.0 117 20 150/41 (77) 100 09/05/18 20:00 Mechanical Ventilator Mechanical Ventilator 09/05/18 20:00 120 09/05/18 20:00 40 09/05/18 17:05 83 18 40 09/05/18 16:00 Mechanical Ventilator Mechanical Ventilator 09/05/18 16:00 97.5 87 23 152/65 (94) 99 09/05/18 16:00 40 09/05/18 15:36 80 09/05/18 15:30 71 14 40 Intake and Output 09/05/18 09/06/18 19:00 07:00 Intake Total 790 ml 779.6 ml Balance 790 ml 779.6 ml Free Water 90 ml 100 ml IV Total 220 ml 239.6 ml Tube Feeding 480 ml 440 ml Laboratory Tests Test 09/06/18 04:00 Random Vancomycin Level 9.3 ug/mL Hepatitis A IgM Antibody Pending Hepatitis B Surface Antigen Pending Hepatitis B Core IgM Antibody Pending Hepatitis C Antibody Pending Height (Feet): 5 Height (Inches): 2.00 Weight (Pounds): 120 General Appearance: no apparent distress Cardiovascular: normal rate Respiratory/Chest: normal breath sounds, no respiratory distress Abdominal Exam: normal bowel sounds, non tender, soft, GT site - c/d/i Extremities: non-tender Rita Quintanilla [employer] Sep 06, 2018 14:33
[2018-09-06 16:00] VITALS: BP 102/42
--- NOTE | 2018-09-06 19:01 | NUR ---
HAND-OFF: Report given to BALDO Diaz.
--- NOTE | 2018-09-06 19:02 | NUR ---
NURSE NOTES: Received patient from Luly RN and Ramakrishna RN. Patient is awake, alert and oriented x1. On trach Shiley 8 to vent with settings of AC:8, TV:450, FiO2:40%, PEEP:5 and showing no signs and symptoms of pain and/or distress. On GTube feeding of Nepro @40ml/hour and flushing well. Rectal tube is patent and draining, patient is anuric. Will continue plan of care.
[2018-09-06 20:00] VITALS: BP 140/62
[2018-09-06] MEDS: Dyna-Hex 2% Top Sol 2oz TOPIC SCH (20:16)
[2018-09-07] VITALS: BP 122/52
[2018-09-07 04:00] VITALS: BP 116/52
[2018-09-07] MEDS: Piperacillin/Tazobactam 2.25 GM in D5W 110 ML IV SCH (04:20)
[2018-09-07] MEDS: Zolpidem 5mg tab GT PRN (04:20)
[2018-09-07] MEDS: Norco 5mg/325mg tab GT PRN ×3 (05:11→17:50)
--- NOTE | 2018-09-07 06:35 | NUR ---
RESPIRATORY NOTE: Pt was received stable, awake, and alert on trach Shiley 8 at vent settings AC 8, 450 VT, 35% PEEP +5, saturated at 100%. Suctioned with no complications. Rhonchi breath sounds. No SOB or acute resp distress noted. Alarms are on and audible. Vent is plugged into red outlet. Ambu bag and extra shiley 8 @ bedside. Will continue to monitor closely.
--- NOTE | 2018-09-07 07:15 | NUR ---
HAND-OFF: Report given to BALDO Durbin and BALDO Vale.
--- NOTE | 2018-09-07 07:16 | NUR ---
NURSE NOTES: Report received from BALDO Diaz. Patient seen in bed in butler position with previous vent setting. Patient's spo02 is at 99%. no respiratory distress is noted. Denies any pain. alert responsive, able to make needs known with writing board. Midline to rightt Addendum: 09/07/18 at 0741 by Kavin Goins RN Report received from BALDO Diaz. Patient seen in bed in butler position with previous vent setting. Patient's sp02 is at 99%. no respiratory distress is noted. Denies any pain. alert responsive, able to make needs known with writing board. Midline to right upper arm is intact. Rectal tube is in place and is intact. Wrist restraint present, no redness to bilateral wrist and radial pulse is palpable. GT Site is intact. Bed is in lowest position. CaLL light is within reach. will continue to monitor.
[2018-09-07 07:36] LABS: BASOPHILS % (AUTO) 2.7 % (0.0-2.0); EOSINOPHILS % (AUTO) 2.7 % (0.0-3.0); HEMATOCRIT 26.5 % (37.0-47.0); HEMOGLOBIN 8.3 G/DL (12.0-16.0); LYMPHOCYTES % (AUTO) 5.3 % (20.0-45.0); MEAN CORPUSCULAR VOLUME 95 FL (80-99); MONOCYTES % (AUTO) 9.9 % (1.0-10.0); NEUTROPHILS % (AUTO) 79.5 % (45.0-75.0); PLATELET COUNT 413 K/UL (150-450); RED BLOOD COUNT 2.78 M/UL (4.20-5.40); RED CELL DISTRIBUTION WIDTH 17.9 % (11.6-14.8); WHITE BLOOD COUNT 8.5 K/UL (4.8-10.8)
[2018-09-07 07:53] LABS: ANION GAP 12 mmol/L (5-15); BLOOD UREA NITROGEN 34 mg/dL (7-18); CARBON DIOXIDE 26 MMOL/L (21-32); CHLORIDE 95 MMOL/L (98-107); CREATININE 1.8 MG/DL (0.55-1.30); POTASSIUM 4.1 MMOL/L (3.5-5.1); SODIUM 132 MMOL/L (136-145)
[2018-09-07 08:00] VITALS: BP 121/39
[2018-09-07 08:00] LABS: CALCIUM 9.1 MG/DL (8.5-10.1)
[2018-09-07] MEDS: Eliquis 2.5mg tablet GT SCH ×2 (08:39→17:49)
[2018-09-07] MEDS: Amiodarone 200mg tab GT SCH (08:39)
[2018-09-07] MEDS: Minoxidil 2.5mg tab GT SCH ×2 (08:40→22:59)
[2018-09-07] MEDS ORDERED: Tigecycline 50 MG in NS 110 ML IVPB SCH (09:00)
--- NOTE | 2018-09-07 09:00 | Nephrology Progress Note ---
Assessment/Plan Assessment Seee below Plan ESRD HD q MWF Anemia of CKD , DARRYN high dose. A. 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 with LAE. LVEF 65% . On Eliquis. Post trach + PEG . Referred to [facility]. Pt's son agreeable to [facility]. Referred again. See orders. Still needs extensive Vascular W/U. Subjective Subjective No new c/o. Objective Objective Last 24 Hour Vital Signs Date Time Temp Pulse Resp B/P (MAP) Pulse Ox O2 Delivery O2 Flow Rate FiO2 09/07/18 08:40 121/39 09/07/18 08:00 76 09/07/18 08:00 Mechanical Ventilator Mechanical Ventilator 09/07/18 08:00 40 09/07/18 08:00 97.5 75 23 121/39 (66) 100 09/07/18 06:35 71 12 40 09/07/18 04:46 105 18 40 09/07/18 04:00 97.9 82 15 116/52 (73) 100 09/07/18 04:00 Mechanical Ventilator Mechanical Ventilator 09/07/18 04:00 40 09/07/18 03:32 121 09/07/18 03:30 83 16 40 09/07/18 00:39 80 17 40 09/07/18 00:00 98.0 80 16 122/52 (75) 95 09/07/18 00:00 Mechanical Ventilator Mechanical Ventilator 09/07/18 00:00 40 09/06/18 23:19 83 09/06/18 22:57 81 16 40 09/06/18 20:35 80 16 40 09/06/18 20:28 85 09/06/18 20:17 140/62 09/06/18 20:00 98.1 82 18 140/62 (88) 100 09/06/18 20:00 Mechanical Ventilator Mechanical Ventilator 09/06/18 20:00 40 09/06/18 19:30 82 16 40 09/06/18 17:33 70 18 40 09/06/18 16:00 74 09/06/18 16:00 40 09/06/18 16:00 Mechanical Ventilator Mechanical Ventilator 09/06/18 16:00 97.5 68 20 102/42 (62) 100 09/06/18 15:28 74 22 40 09/06/18 13:34 75 21 40 1/8/19 12:00 96.8 75 21 125/63 (83) 100 09/06/18 12:00 40 09/06/18 12:00 Mechanical Ventilator Mechanical Ventilator 09/06/18 11:45 74 09/06/18 11:30 82 19 40 09/06/18 09:30 77 18 40 Intake and Output 09/06/18 09/07/18 18:59 06:59 Intake Total 1383.334 ml 900 ml Output Total 100 ml Balance 1283.334 ml 900 ml Free Water 200 ml 100 ml IV Total 663.334 ml 220 ml Tube Feeding 520 ml 480 ml Other 100 ml Stool Total 100 ml Laboratory Tests 09/07/18 04:00: White Blood Count 8.5, Red Blood Count 2.78L, Hemoglobin 8.3L, Hematocrit 26.5L , Mean Corpuscular Volume 95, Mean Corpuscular Hemoglobin 29.9, Mean Corpuscular Hemoglobin Concent 31.3L, Red Cell Distribution Width 17.9H, Platelet Count 413, Mean Platelet Volume 5.1L, Neutrophils (%) (Auto) 79.5H, Lymphocytes (%) (Auto) 5.3L, Monocytes (%) (Auto) 9.9, Eosinophils (%) (Auto) 2.7, Basophils (%) (Auto) 2.7H, Sodium Level 132L, Potassium Level 4.1, Chloride Level 95L, Carbon Dioxide Level 26, Anion Gap 12, Blood Urea Nitrogen 34H, Creatinine 1.8H, Estimat Glomerular Filtration Rate , Glucose Level 86, Calcium Level 9.1 Height (Feet): 5 Height (Inches): 2.00 Weight (Pounds): 120 Objective On vent. Trach clean. Cv IRR/IRR Lungs B ronchi. Abd SNT. BS + PEG. E Rt. foot diabetic ulcers Chase He MD Sep 07, 2018 09:00
--- NOTE | 2018-09-07 10:00 | NUR ---
NURSE NOTES: human resource manager is at bed side. Patient is currently being dialyzed and is tolerating well. Will continue to monitor.
--- NOTE | 2018-09-07 10:52 | GI Progress Note ---
Assessment/Plan Problems: (1) Encounter for PEG (percutaneous endoscopic gastrostomy) ICD Codes: Z43.1 - Encounter for attention to gastrostomy SNOMED: 307210388, 793651168 (2) Severe malnutrition ICD Codes: E43 - Unspecified severe protein-calorie malnutrition SNOMED: 25077275 (3) Dehydration ICD Codes: E86.0 - Dehydration SNOMED: 14472294 Status: unchanged Status Narrative Discussed with Dr. Cox. Assessment/Plan Assessment - Dysphagia - Resp failure - ESRD - Anemia - Status post PEG, tolerating feeds Recommendations 1. Abdominal binder. 2. Elevate the head of the bed at all times. 3. G-tube flush. 4. G-tube care. 5. tube feeding later today per RD to goal Monitor H&H, PRN transfusions PPI Electrolyte correction Follow-up labs The patient was seen and examined at bedside and all new and available data was reviewed in the patients chart. I agree with the above findings, impression and plan. (Patient seen earlier today. Signature stamp does not reflect patient encounter time.). - Oc Cox MD Subjective Subjective limited Objective Last 24 Hour Vital Signs Date Time Temp Pulse Resp B/P (MAP) Pulse Ox O2 Delivery O2 Flow Rate FiO2 09/07/18 08:40 121/39 09/07/18 08:30 69 12 40 09/07/18 08:00 76 09/07/18 08:00 Mechanical Ventilator Mechanical Ventilator 09/07/18 08:00 40 09/07/18 08:00 97.5 75 23 121/39 (66) 100 09/07/18 06:35 71 12 40 09/07/18 04:46 105 18 40 09/07/18 04:00 97.9 82 15 116/52 (73) 100 09/07/18 04:00 Mechanical Ventilator Mechanical Ventilator 09/07/18 04:00 40 09/07/18 03:32 121 09/07/18 03:30 83 16 40 09/07/18 00:39 80 17 40 09/07/18 00:00 98.0 80 16 122/52 (75) 95 09/07/18 00:00 Mechanical Ventilator Mechanical Ventilator 09/07/18 00:00 40 09/06/18 23:19 83 09/06/18 22:57 81 16 40 09/06/18 20:35 80 16 40 09/06/18 20:28 85 09/06/18 20:17 140/62 09/06/18 20:00 98.1 82 18 140/62 (88) 100 09/06/18 20:00 Mechanical Ventilator Mechanical Ventilator 09/06/18 20:00 40 09/06/18 19:30 82 16 40 09/06/18 17:33 70 18 40 09/06/18 16:00 74 09/06/18 16:00 40 09/06/18 16:00 Mechanical Ventilator Mechanical Ventilator 09/06/18 16:00 97.5 68 20 102/42 (62) 100 09/06/18 15:28 74 22 40 09/06/18 13:34 75 21 40 09/06/18 12:00 96.8 75 21 125/63 (83) 100 09/06/18 12:00 40 09/06/18 12:00 Mechanical Ventilator Mechanical Ventilator 09/06/18 11:45 74 09/06/18 11:30 82 19 40 Intake and Output 09/06/18 09/07/18 18:59 06:59 Intake Total 1383.334 ml 900 ml Output Total 100 ml Balance 1283.334 ml 900 ml Free Water 200 ml 100 ml IV Total 663.334 ml 220 ml Tube Feeding 520 ml 480 ml Other 100 ml Stool Total 100 ml Laboratory Tests Test 09/07/18 04:00 White Blood Count 8.5 K/UL (4.8-10.8) Red Blood Count 2.78 M/UL (4.20-5.40) L Hemoglobin 8.3 G/DL (12.0-16.0) L Hematocrit 26.5 % (37.0-47.0) L Mean Corpuscular Volume 95 FL (80-99) Mean Corpuscular Hemoglobin 29.9 PG (27.0-31.0) Mean Corpuscular Hemoglobin Concent 31.3 G/DL (32.0-36.0) L Red Cell Distribution Width 17.9 % (11.6-14.8) H Platelet Count 413 K/UL (150-450) Mean Platelet Volume 5.1 FL (6.5-10.1) L Neutrophils (%) (Auto) 79.5 % (45.0-75.0) H Lymphocytes (%) (Auto) 5.3 % (20.0-45.0) L Monocytes (%) (Auto) 9.9 % (1.0-10.0) Eosinophils (%) (Auto) 2.7 % (0.0-3.0) Basophils (%) (Auto) 2.7 % (0.0-2.0) H Sodium Level 132 MMOL/L (136-145) L Potassium Level 4.1 MMOL/L (3.5-5.1) Chloride Level 95 MMOL/L (98-107) L Carbon Dioxide Level 26 MMOL/L (21-32) Anion Gap 12 mmol/L (5-15) Blood Urea Nitrogen 34 mg/dL (7-18) H Creatinine 1.8 MG/DL (0.55-1.30) H Estimat Glomerular Filtration Rate mL/min (>60) Glucose Level 86 MG/DL (74-106) Calcium Level 9.1 MG/DL (8.5-10.1) Height (Feet): 5 Height (Inches): 2.00 Weight (Pounds): 120 General Appearance: alert Respiratory/Chest: other - Mechanical ventilator Abdominal Exam: GT site - Clean dry and intact Rita Quintanilla NP Sep 07, 2018 10:52
--- NOTE | 2018-09-07 10:53 | Infectious Diseases Prog Note ---
Assessment/Plan Assessment/Plan A: New leukocytosis resolved UTI with ESBL E. Coli Cellulitis of R leg, osteomyelitis treated Hypercapnic respiratory failure ESRD on HD DM Anemia Dementia PVD R pleural effusion Mucous plug s/o Cardiac arrest Multiple Pressure ulcers P; Discontinue Zosyn & Tygacil start on Meropenem Subjective ROS Limited/Unobtainable: Yes Neurologic: Reports: confusion, other - on restraint Allergies: Coded Allergies: No Known Allergies (Unverified , 07/25/18) Objective Vital Signs Last 24 Hour Vital Signs Date Time Temp Pulse Resp B/P (MAP) Pulse Ox O2 Delivery O2 Flow Rate FiO2 09/07/18 08:40 121/39 09/07/18 08:30 69 12 40 09/07/18 08:00 76 09/07/18 08:00 Mechanical Ventilator Mechanical Ventilator 09/07/18 08:00 40 09/07/18 08:00 97.5 75 23 121/39 (66) 100 09/07/18 06:35 71 12 40 09/07/18 04:46 105 18 40 09/07/18 04:00 97.9 82 15 116/52 (73) 100 09/07/18 04:00 Mechanical Ventilator Mechanical Ventilator 09/07/18 04:00 40 09/07/18 03:32 121 09/07/18 03:30 83 16 40 09/07/18 00:39 80 17 40 09/07/18 00:00 98.0 80 16 122/52 (75) 95 09/07/18 00:00 Mechanical Ventilator Mechanical Ventilator 09/07/18 00:00 40 09/06/18 23:19 83 09/06/18 22:57 81 16 40 09/06/18 20:35 80 16 40 09/06/18 20:28 85 09/06/18 20:17 140/62 09/06/18 20:00 98.1 82 18 140/62 (88) 100 09/06/18 20:00 Mechanical Ventilator Mechanical Ventilator 09/06/18 20:00 40 09/06/18 19:30 82 16 40 09/06/18 17:33 70 18 40 09/06/18 16:00 74 09/06/18 16:00 40 09/06/18 16:00 Mechanical Ventilator Mechanical Ventilator 09/06/18 16:00 97.5 68 20 102/42 (62) 100 09/06/18 15:28 74 22 40 09/06/18 13:34 75 21 40 09/06/18 12:00 96.8 75 21 125/63 (83) 100 09/06/18 12:00 40 09/06/18 12:00 Mechanical Ventilator Mechanical Ventilator 09/06/18 11:45 74 09/06/18 11:30 82 19 40 Height (Feet): 5 Height (Inches): 2.00 Weight (Pounds): 120 General Appearance: no acute distress HEENT: status post trach Respiratory/Chest: lungs clear, other - on ventilator Cardiovascular: normal peripheral pulses Abdomen: soft, non tender, other - GT & rectal tube Extremities: no edema Neurologic/Psychiatric: alert, disoriented Microbiology Date/Time Source Procedure Growth Status 09/04/18 12:15 Indwelling Cath Urine Culture - Final Escherichia Coli - Esbl Complete Laboratory Tests Test 09/07/18 04:00 White Blood Count 8.5 K/UL (4.8-10.8) Red Blood Count 2.78 M/UL (4.20-5.40) L Hemoglobin 8.3 G/DL (12.0-16.0) L Hematocrit 26.5 % (37.0-47.0) L Mean Corpuscular Volume 95 FL (80-99) Mean Corpuscular Hemoglobin 29.9 PG (27.0-31.0) Mean Corpuscular Hemoglobin Concent 31.3 G/DL (32.0-36.0) L Red Cell Distribution Width 17.9 % (11.6-14.8) H Platelet Count 413 K/UL (150-450) Mean Platelet Volume 5.1 FL (6.5-10.1) L Neutrophils (%) (Auto) 79.5 % (45.0-75.0) H Lymphocytes (%) (Auto) 5.3 % (20.0-45.0) L Monocytes (%) (Auto) 9.9 % (1.0-10.0) Eosinophils (%) (Auto) 2.7 % (0.0-3.0) Basophils (%) (Auto) 2.7 % (0.0-2.0) H Sodium Level 132 MMOL/L (136-145) L Potassium Level 4.1 MMOL/L (3.5-5.1) Chloride Level 95 MMOL/L (98-107) L Carbon Dioxide Level 26 MMOL/L (21-32) Anion Gap 12 mmol/L (5-15) Blood Urea Nitrogen 34 mg/dL (7-18) H Creatinine 1.8 MG/DL (0.55-1.30) H Estimat Glomerular Filtration Rate mL/min (>60) Glucose Level 86 MG/DL (74-106) Calcium Level 9.1 MG/DL (8.5-10.1) Current Medications Medications (Trade) Dose Ordered Sig/Renetta Route PRN Reason Start Time Stop Time Status Last Admin Dose Admin Acetaminophen (Tylenol) 650 mg Q6H PRN GT Mild Pain/Temp > 100.5 08/21/18 16:00 09/18/18 15:59 08/26/18 12:03 Acetaminophen/ Hydrocodone Bitart ([place] 5/325) 1 tab Q6H PRN GT For Pain 09/06/18 13:35 09/13/18 13:00 09/07/18 05:11 Amiodarone HCl (Cordarone) 200 mg DAILY GT 08/31/18 09:00 09/24/18 20:59 09/07/18 08:39 Apixaban (Eliquis) 2.5 mg BID GT 08/25/18 18:00 09/24/18 17:59 09/07/18 08:39 Artificial Tears ([place]-Tears) 1 drop Q4H PRN BOTH EYES Dry Eyes 08/21/18 15:30 09/19/18 15:29 08/30/18 16:53 Chlorhexidine Gluconate ([place]-Hex 2%) 1 applic DAILY@1999 TOPIC 08/28/18 20:00 09/27/18 19:59 09/06/18 20:16 Collagenase (Santyl) 1 applic DAILY TOPIC 09/05/18 21:00 10/05/18 08:59 09/07/18 08:40 Lansoprazole (Prevacid) 30 mg Q12HR GT 08/25/18 21:00 09/24/18 20:59 09/07/18 08:39 Lorazepam (Ativan) 0.5 mg Q6H PRN ORAL For Anxiety 09/04/18 15:45 09/11/18 15:44 09/06/18 14:07 Minoxidil (Loniten) 2.5 mg Q12HR GT 08/25/18 21:00 09/24/18 20:59 09/07/18 08:40 Piperacillin Sod/ Tazobactam Sod 2.25 gm/Dextrose 110 ml @ 220 mls/hr Q8H IV 09/03/18 12:00 09/10/18 11:59 09/07/18 04:20 Sodium Chloride 1,000 ml @ 500 mls/hr Q2H PRN IVLG sbp<90 during hd 09/06/18 13:29 09/07/18 23:59 Sodium Chloride ([place] Nasal [place]) 1 spray Q4H PRN NASAL dry nose 08/21/18 14:30 09/19/18 18:29 08/23/18 11:49 Tigecycline 50 mg/ Sodium Chloride 110 ml @ 220 mls/hr EVERY 12 HOURS IVPB 09/07/18 09:00 09/14/18 08:59 09/07/18 08:40 Zolpidem Tartrate (Ambien) 5 mg HSPRN PRN GT Insomnia 09/01/18 20:45 09/08/18 20:44 09/07/18 04:20 Freedom Randolph MD Sep 07, 2018 10:53
[2018-09-07] MEDS: Meropenem 500 MG in NS 55 ML IVPB SCH (11:55)
[2018-09-07 12:00] VITALS: BP 126/35
[2018-09-07 16:00] VITALS: BP 116/43
--- NOTE | 2018-09-07 17:04 | NUR ---
CASE MANAGEMENT: REVIEW SI: ESRD ON HD TRACHEOSTOMY 08/15 PEG PLACEMENT 08/17 T 97.5 HR 115 BP 126/35 SAT 100% MECH VENT FIO2 40 H/H 8.3/26.5 NA 132 BUN 34 CR 1.8 IS: MINOXIDIL GT Q12HR PROCRIT SQ MWF ELIQUIS NG BID AMIODARONE GT Q12HR GT FEEDING NEPRO @ 40ML/HR HD PRN STEP DOWN UNIT STATUS DCP: PATIENT IS FROM [facility]. REFERRED TO [facility] AWAITING HEP PANEL
--- NOTE | 2018-09-07 19:19 | NUR ---
HAND-OFF: Report given to BALDO Waldron.
--- NOTE | 2018-09-07 19:28 | Pulmonology Progress Note ---
Assessment/Plan Assessment/Plan IMPRESSION: 1. Hypotension. Resolved. 2. Sepsis. Resolved 3. Atrial fibrillation. 4. Bradycardia. 5. Diabetes mellitus. 6. End-stage renal disease on dialysis. 7. Left lung collapse. Resolved 8. Respiratory failure. now status post tracheostomy 9. Dysphagia. 10. Dementia. 11. Anemia DISCUSSION: 1. Continue medications. 2. CXR improved 3. Status post tracheostomy 4. S/p G-tube 5. Continue HD Andres Allan M.D. Subjective Interval Events: none new Constitutional: Reports: no symptoms HEENT: Repors: no symptoms Respiratory: Reports: no symptoms Cardiovascular: Reports: no symptoms Gastrointestinal/Abdominal: Reports: no symptoms Allergies: Coded Allergies: No Known Allergies (Unverified , 07/25/18) Objective Last 24 Hour Vital Signs Date Time Temp Pulse Resp B/P (MAP) Pulse Ox O2 Delivery O2 Flow Rate FiO2 09/07/18 17:20 115 17 40 09/07/18 16:00 113 09/07/18 16:00 96.6 112 15 116/43 (67) 100 09/07/18 16:00 40 09/07/18 16:00 Mechanical Ventilator Mechanical Ventilator 09/07/18 15:10 115 15 40 09/07/18 13:00 105 19 40 09/07/18 12:00 Mechanical Ventilator Mechanical Ventilator 09/07/18 12:00 97.5 68 16 126/35 (65) 100 09/07/18 12:00 70 09/07/18 12:00 40 09/07/18 11:20 86 20 40 09/07/18 08:40 121/39 09/07/18 08:30 69 12 40 09/07/18 08:00 76 09/07/18 08:00 Mechanical Ventilator Mechanical Ventilator 09/07/18 08:00 40 09/07/18 08:00 97.5 75 19 121/39 (66) 100 09/07/18 06:35 71 12 40 09/07/18 04:46 105 18 40 09/07/18 04:00 97.9 82 15 116/52 (73) 100 09/07/18 04:00 Mechanical Ventilator Mechanical Ventilator 09/07/18 04:00 40 09/07/18 03:32 121 09/07/18 03:30 83 16 40 09/07/18 00:39 80 17 40 09/07/18 00:00 98.0 80 16 122/52 (75) 95 09/07/18 00:00 Mechanical Ventilator Mechanical Ventilator 09/07/18 00:00 40 09/06/18 23:19 83 09/06/18 22:57 81 16 40 09/06/18 20:35 80 16 40 09/06/18 20:28 85 09/06/18 20:17 140/62 09/06/18 20:00 98.1 82 18 140/62 (88) 100 09/06/18 20:00 Mechanical Ventilator Mechanical Ventilator 09/06/18 20:00 40 09/06/18 19:30 82 16 40 Intake and Output 09/06/18 09/07/18 19:00 07:00 Intake Total 1116.667 ml 900 ml Output Total 100 ml Balance 1016.667 ml 900 ml Free Water 100 ml 100 ml IV Total 496.667 ml 220 ml Tube Feeding 520 ml 480 ml Other 100 ml Stool Total 100 ml General Appearance: no acute distress HEENT: status post trach Respiratory/Chest: chest wall non-tender, lungs clear Cardiovascular: normal rate, regular rhythm Abdomen: normal bowel sounds Laboratory Tests 09/07/18 04:00: White Blood Count 8.5, Red Blood Count 2.78L, Hemoglobin 8.3L, Hematocrit 26.5L , Mean Corpuscular Volume 95, Mean Corpuscular Hemoglobin 29.9, Mean Corpuscular Hemoglobin Concent 31.3L, Red Cell Distribution Width 17.9H, Platelet Count 413, Mean Platelet Volume 5.1L, Neutrophils (%) (Auto) 79.5H, Lymphocytes (%) (Auto) 5.3L, Monocytes (%) (Auto) 9.9, Eosinophils (%) (Auto) 2.7, Basophils (%) (Auto) 2.7H, Sodium Level 132L, Potassium Level 4.1, Chloride Level 95L, Carbon Dioxide Level 26, Anion Gap 12, Blood Urea Nitrogen 34H, Creatinine 1.8H, Estimat Glomerular Filtration Rate , Glucose Level 86, Calcium Level 9.1 Current Medications Medications (Trade) Dose Ordered Sig/Renetta Route PRN Reason Start Time Stop Time Status Last Admin Dose Admin Acetaminophen (Tylenol) 650 mg Q6H PRN GT Mild Pain/Temp > 100.5 08/21/18 16:00 09/18/18 15:59 08/26/18 12:03 Acetaminophen/ Hydrocodone Bitart ([place] 5/325) 1 tab Q6H PRN GT For Pain 09/06/18 13:35 09/13/18 13:00 09/07/18 17:50 Amiodarone HCl (Cordarone) 200 mg DAILY GT 08/31/18 09:00 09/24/18 20:59 09/07/18 08:39 Apixaban (Eliquis) 2.5 mg BID GT 08/25/18 18:00 09/24/18 17:59 09/07/18 17:49 Artificial Tears (Akwa-Tears) 1 drop Q4H PRN BOTH EYES Dry Eyes 08/21/18 15:30 09/19/18 15:29 08/30/18 16:53 Chlorhexidine Gluconate (Rylie-Hex 2%) 1 applic DAILY@2000 TOPIC 08/28/18 20:00 09/27/18 19:59 09/06/18 20:16 Collagenase (Santyl) 1 applic DAILY TOPIC 09/05/18 21:00 10/05/18 08:59 09/07/18 08:40 Lansoprazole (Prevacid) 30 mg Q12HR GT 08/25/18 21:00 09/24/18 20:59 09/07/18 08:39 Lorazepam (Ativan) 0.5 mg Q6H PRN ORAL For Anxiety 09/04/18 15:45 09/11/18 15:44 09/06/18 14:07 Meropenem 500 mg/ Sodium Chloride 55 ml @ 110 mls/hr DAILY IVPB 09/07/18 12:00 09/12/18 11:59 09/07/18 11:55 Minoxidil (Loniten) 2.5 mg Q12HR GT 08/25/18 21:00 09/24/18 20:59 09/07/18 08:40 Sodium Chloride 1,000 ml @ 500 mls/hr Q2H PRN IVLG sbp<90 during hd 09/06/18 13:29 09/07/18 23:59 Sodium Chloride ([place] Nasal [place]) 1 spray Q4H PRN NASAL dry nose 08/21/18 14:30 09/19/18 18:29 08/23/18 11:49 Zolpidem Tartrate (Ambien) 5 mg HSPRN PRN GT Insomnia 09/01/18 20:45 09/08/18 20:44 09/07/18 04:20 Andres Allan MD Sep 07, 2018 19:28
--- NOTE | 2018-09-07 19:43 | Cardiology Progress Note ---
Assessment/Plan Assessment/Plan 1. Hypotension, possibly sepsis versus volume. 2. Paroxysmal episodes of atrial fibrillation history. 3. Bradycardia secondary to medications, amiodarone possibly. 4. Diabetes mellitus. 5. End-stage renal disease, on hemodialysis. 6. Lung collapse. 7. Respiratory failure, status post intubation. 8. Dysphagia. 9. History of dementia. 10. Pulm htn 11. Pleural effusion 12. cardaic arrest 13. chest wall pain post cpr 14. hyponatremai mostly in sinus now amiod 200 mg daily vent support s/p trach peg done on minoxidl and hold parameter applied on elequis 2.5 mg bid for stroke prevention awaits snf na is better Subjective ROS Limited/Unobtainable: Yes Subjective on the vent, has pain is in restriatns Objective Last 24 Hour Vital Signs Date Time Temp Pulse Resp B/P (MAP) Pulse Ox O2 Delivery O2 Flow Rate FiO2 09/07/18 17:20 115 17 40 09/07/18 16:00 113 09/07/18 16:00 96.6 112 15 116/43 (67) 100 09/07/18 16:00 40 09/07/18 16:00 Mechanical Ventilator Mechanical Ventilator 09/07/18 15:10 115 15 40 09/07/18 13:00 105 19 40 09/07/18 12:00 Mechanical Ventilator Mechanical Ventilator 09/07/18 12:00 97.5 68 16 126/35 (65) 100 09/07/18 12:00 70 09/07/18 12:00 40 09/07/18 11:20 86 20 40 09/07/18 08:40 121/39 09/07/18 08:30 69 12 40 09/07/18 08:00 76 09/07/18 08:00 Mechanical Ventilator Mechanical Ventilator 09/07/18 08:00 40 09/07/18 08:00 97.5 75 19 121/39 (66) 100 09/07/18 06:35 71 12 40 09/07/18 04:46 105 18 40 09/07/18 04:00 97.9 82 15 116/52 (73) 100 09/07/18 04:00 Mechanical Ventilator Mechanical Ventilator 09/07/18 04:00 40 09/07/18 03:32 121 09/07/18 03:30 83 16 40 09/07/18 00:39 80 17 40 09/07/18 00:00 98.0 80 16 122/52 (75) 95 09/07/18 00:00 Mechanical Ventilator Mechanical Ventilator 09/07/18 00:00 40 09/06/18 23:19 83 09/06/18 22:57 81 16 40 09/06/18 20:35 80 16 40 09/06/18 20:28 85 09/06/18 20:17 140/62 09/06/18 20:00 98.1 82 18 140/62 (88) 100 09/06/18 20:00 Mechanical Ventilator Mechanical Ventilator 09/06/18 20:00 40 General Appearance: no apparent distress, alert, on vent, patient on isolation Intake and Output 09/06/18 09/07/18 19:00 07:00 Intake Total 1116.667 ml 900 ml Output Total 100 ml Balance 1016.667 ml 900 ml Free Water 100 ml 100 ml IV Total 496.667 ml 220 ml Tube Feeding 520 ml 480 ml Other 100 ml Stool Total 100 ml Laboratory Tests Test 09/07/18 04:00 White Blood Count 8.5 K/UL (4.8-10.8) Red Blood Count 2.78 M/UL (4.20-5.40) L Hemoglobin 8.3 G/DL (12.0-16.0) L Hematocrit 26.5 % (37.0-47.0) L Mean Corpuscular Volume 95 FL (80-99) Mean Corpuscular Hemoglobin 29.9 PG (27.0-31.0) Mean Corpuscular Hemoglobin Concent 31.3 G/DL (32.0-36.0) L Red Cell Distribution Width 17.9 % (11.6-14.8) H Platelet Count 413 K/UL (150-450) Mean Platelet Volume 5.1 FL (6.5-10.1) L Neutrophils (%) (Auto) 79.5 % (45.0-75.0) H Lymphocytes (%) (Auto) 5.3 % (20.0-45.0) L Monocytes (%) (Auto) 9.9 % (1.0-10.0) Eosinophils (%) (Auto) 2.7 % (0.0-3.0) Basophils (%) (Auto) 2.7 % (0.0-2.0) H Sodium Level 132 MMOL/L (136-145) L Potassium Level 4.1 MMOL/L (3.5-5.1) Chloride Level 95 MMOL/L (98-107) L Carbon Dioxide Level 26 MMOL/L (21-32) Anion Gap 12 mmol/L (5-15) Blood Urea Nitrogen 34 mg/dL (7-18) H Creatinine 1.8 MG/DL (0.55-1.30) H Estimat Glomerular Filtration Rate mL/min (>60) Glucose Level 86 MG/DL (74-106) Calcium Level 9.1 MG/DL (8.5-10.1) Angelo Butler MD Sep 07, 2018 19:43
[2018-09-07 21:00] VITALS: BP 123/55
[2018-09-07] MEDS: Dyna-Hex 2% Top Sol 2oz TOPIC SCH (22:59)
[2018-09-08] VITALS: BP_SYST 110; BP_SYST 139; BP_DIAS 61; BP_DIAS 71
[2018-09-08 04:00] VITALS: BP 110/71
--- NOTE | 2018-09-08 07:15 | NUR ---
HAND-OFF: Report given to Regina Koenig RN.
--- NOTE | 2018-09-08 07:16 | NUR ---
NURSE NOTES: Report received from BALDO Diaz. Pt is alert, awake and confused. Resist to care and combative at times. On bilateral soft restraints. A-fib on research dietitian in 80's. Trach to vent. S8, AC 8, TV 450, FiO2 40%, P 5. O2 sat 100%. No respiratory distress noted. G-tube in place receiving Nepro at 40cc/hr. No residual noted. Right upper arm midline patent and asymptomatic. Left UA AV shunt for HD noted. Bed in lowest position. Side rails up x3. Will resume plan of care.
[2018-09-08 07:19] LABS: HEMOGLOBIN 7.4 G/DL (12.0-16.0); MEAN CORPUSCULAR VOLUME 93 FL (80-99); PLATELET COUNT 432 K/UL (150-450); RED BLOOD COUNT 2.49 M/UL (4.20-5.40); RED CELL DISTRIBUTION WIDTH 17.4 % (11.6-14.8); WHITE BLOOD COUNT 12.2 K/UL (4.8-10.8)
[2018-09-08 07:41] LABS: ANION GAP 7 mmol/L (5-15); BLOOD UREA NITROGEN 44 mg/dL (7-18); CALCIUM 8.9 MG/DL (8.5-10.1); CARBON DIOXIDE 30 MMOL/L (21-32); CHLORIDE 96 MMOL/L (98-107); CREATININE 1.7 MG/DL (0.55-1.30); SODIUM 133 MMOL/L (136-145)
[2018-09-08 08:00] VITALS: BP 92/23
--- NOTE | 2018-09-08 08:14 | NUR ---
NURSE NOTES: Report received from BALDO Diaz. Pt is alert, awake and confused. Resist to care and combative at times. On bilateral soft restraints. A-fib on cardiac monitor technician in 80's. Trach to vent. S8, AC 8, TV 450, FiO2 40%, P 5. O2 sat 100%. No respiratory distress noted. G-tube in place receiving Nepro at 40cc/hr. No residual noted. Right upper arm midline patent and asymptomatic. Left UA AV shunt for HD noted. Bed in lowest position. Side rails up x3. Will resume plan of care. Addendum: 09/08/18 at 0824 by JOSE ALBERTO BROWN RN RN Wrong time 0716
[2018-09-08] MEDS: Meropenem 500 MG in NS 55 ML IVPB SCH (08:48)
[2018-09-08] MEDS: Acetaminophen 650mg/20.3ml GT PRN (08:49)
[2018-09-08] MEDS: Amiodarone 200mg tab GT SCH (08:49)
[2018-09-08] MEDS: Eliquis 2.5mg tablet GT SCH ×2 (09:00→17:55)
[2018-09-08] MEDS: Minoxidil 2.5mg tab GT SCH ×2 (09:00→21:00)
--- NOTE | 2018-09-08 09:37 | Infectious Diseases Prog Note ---
Assessment/Plan Assessment/Plan A: leukocytosis UTI with ESBL E. Coli Cellulitis of R leg, osteomyelitis treated Hypercapnic respiratory failure ESRD on HD DM Anemia Dementia PVD R pleural effusion Mucous plug s/o Cardiac arrest Multiple Pressure ulcers P; continue Meropenem Subjective ROS Limited/Unobtainable: Yes Constitutional: Reports: other - afebrile Neurologic: Reports: confusion, other - on restraint Allergies: Coded Allergies: No Known Allergies (Unverified , 07/25/18) Objective Vital Signs Last 24 Hour Vital Signs Date Time Temp Pulse Resp B/P (MAP) Pulse Ox O2 Delivery O2 Flow Rate FiO2 09/08/18 07:14 72 17 40 09/08/18 05:01 102 14 40 09/08/18 04:00 Mechanical Ventilator Mechanical Ventilator 09/08/18 04:00 97.8 75 17 110/71 (84) 96 09/08/18 04:00 40 09/08/18 03:27 102 12 40 09/08/18 03:15 72 09/08/18 01:29 67 15 40 09/08/18 00:00 40 09/08/18 00:00 97.9 110 15 139/61 (87) 100 09/08/18 00:00 Mechanical Ventilator Mechanical Ventilator 09/07/18 23:29 68 12 40 09/07/18 23:19 116 09/07/18 22:59 123/55 09/07/18 21:17 69 10 40 09/07/18 21:00 40 09/07/18 21:00 97.5 72 16 123/55 (77) 100 09/07/18 21:00 Mechanical Ventilator Mechanical Ventilator 09/07/18 19:40 108 14 40 09/07/18 19:15 106 09/07/18 17:20 115 17 40 09/07/18 16:00 113 09/07/18 16:00 96.6 112 15 116/43 (67) 100 09/07/18 16:00 40 09/07/18 16:00 Mechanical Ventilator Mechanical Ventilator 09/07/18 15:10 115 15 40 09/07/18 13:00 105 19 40 09/07/18 12:00 Mechanical Ventilator Mechanical Ventilator 09/07/18 12:00 97.5 68 16 126/35 (65) 100 09/07/18 12:00 70 09/07/18 12:00 40 09/07/18 11:20 86 20 40 Height (Feet): 5 Height (Inches): 2.00 Weight (Pounds): 120 General Appearance: no acute distress HEENT: status post trach Respiratory/Chest: lungs clear, other - on ventilator Cardiovascular: normal rate, other - midline Abdomen: soft, non tender, other - GT & rectal tube Extremities: no edema Skin: ulcers Neurologic/Psychiatric: other - sleeping Laboratory Tests Test 09/08/18 04:00 White Blood Count 12.2 K/UL (4.8-10.8) H Red Blood Count 2.49 M/UL (4.20-5.40) L Hemoglobin 7.4 G/DL (12.0-16.0) L Hematocrit 23.0 % (37.0-47.0) L Mean Corpuscular Volume 93 FL (80-99) Mean Corpuscular Hemoglobin 29.9 PG (27.0-31.0) Mean Corpuscular Hemoglobin Concent 32.3 G/DL (32.0-36.0) Red Cell Distribution Width 17.4 % (11.6-14.8) H Platelet Count 432 K/UL (150-450) Mean Platelet Volume 5.7 FL (6.5-10.1) L Neutrophils (%) (Auto) % (45.0-75.0) Lymphocytes (%) (Auto) % (20.0-45.0) Monocytes (%) (Auto) % (1.0-10.0) Eosinophils (%) (Auto) % (0.0-3.0) Basophils (%) (Auto) % (0.0-2.0) Neutrophils % (Manual) Pending Lymphocytes % (Manual) Pending Platelet Estimate Pending Platelet Morphology Pending Sodium Level 133 MMOL/L (136-145) L Potassium Level 4.0 MMOL/L (3.5-5.1) Chloride Level 96 MMOL/L (98-107) L Carbon Dioxide Level 30 MMOL/L (21-32) Anion Gap 7 mmol/L (5-15) Blood Urea Nitrogen 44 mg/dL (7-18) H Creatinine 1.7 MG/DL (0.55-1.30) H Estimat Glomerular Filtration Rate mL/min (>60) Glucose Level 110 MG/DL (74-106) H Calcium Level 8.9 MG/DL (8.5-10.1) Current Medications Medications (Trade) Dose Ordered Sig/Renetta Route PRN Reason Start Time Stop Time Status Last Admin Dose Admin Acetaminophen (Tylenol) 650 mg Q6H PRN GT Mild Pain/Temp > 100.5 08/21/18 16:00 09/18/18 15:59 09/08/18 08:49 Acetaminophen/ Hydrocodone Bitart ([place] 5/325) 1 tab Q6H PRN GT For Pain 09/06/18 13:35 09/13/18 13:00 09/07/18 17:50 Amiodarone HCl (Cordarone) 200 mg DAILY GT 08/31/18 09:00 09/24/18 20:59 09/08/18 08:49 Apixaban (Eliquis) 2.5 mg BID GT 08/25/18 18:00 09/24/18 17:59 09/07/18 17:49 Artificial Tears ([place]-Tears) 1 drop Q4H PRN BOTH EYES Dry Eyes 08/21/18 15:30 09/19/18 15:29 08/30/18 16:53 Chlorhexidine Gluconate (Rylie-Hex 2%) 1 applic DAILY@2000 TOPIC 08/28/18 20:00 09/27/18 19:59 09/07/18 22:59 Collagenase (Santyl) 1 applic DAILY TOPIC 09/05/18 21:00 10/05/18 08:59 09/08/18 08:50 Lansoprazole (Prevacid) 30 mg Q12HR GT 08/25/18 21:00 09/24/18 20:59 09/08/18 08:49 Lorazepam (Ativan) 0.5 mg Q6H PRN ORAL For Anxiety 09/04/18 15:45 09/11/18 15:44 09/06/18 14:07 Meropenem 500 mg/ Sodium Chloride 55 ml @ 110 mls/hr DAILY IVPB 09/07/18 12:00 09/12/18 11:59 09/08/18 08:48 Minoxidil (Loniten) 2.5 mg Q12HR GT 08/25/18 21:00 09/24/18 20:59 09/07/18 22:59 Sodium Chloride ([place] Nasal [place]) 1 spray Q4H PRN NASAL dry nose 08/21/18 14:30 09/19/18 18:29 08/23/18 11:49 Zolpidem Tartrate (Ambien) 5 mg HSPRN PRN GT Insomnia 09/01/18 20:45 09/08/18 20:44 09/07/18 04:20 Freedom Randolph MD Sep 08, 2018 09:36
--- NOTE | 2018-09-08 10:52 | GI Progress Note ---
Assessment/Plan Problems: (1) Encounter for PEG (percutaneous endoscopic gastrostomy) ICD Codes: Z43.1 - Encounter for attention to gastrostomy SNOMED: 317356210, 229981466 (2) Severe malnutrition ICD Codes: E43 - Unspecified severe protein-calorie malnutrition SNOMED: 28804049 (3) Dehydration ICD Codes: E86.0 - Dehydration SNOMED: 44367225 Status: doing well, unchanged Status Narrative Discussed with Dr. Cox Assessment/Plan Assessment - Dysphagia - Resp failure - ESRD - Anemia - Status post PEG, tolerating feeds Recommendations 1. Abdominal binder. 2. Elevate the head of the bed at all times. 3. G-tube flush. 4. G-tube care. 5. tube feeding later today per RD to goal Monitor H&H, PRN transfusions PPI Electrolyte correction Follow-up labs The patient was seen and examined at bedside and all new and available data was reviewed in the patients chart. I agree with the above findings, impression and plan. (Patient seen earlier today. Signature stamp does not reflect patient encounter time.). - Oc Cox MD Subjective Subjective limited Objective Last 24 Hour Vital Signs Date Time Temp Pulse Resp B/P (MAP) Pulse Ox O2 Delivery O2 Flow Rate FiO2 09/08/18 10:50 63 11 40 09/08/18 09:02 74 13 40 09/08/18 07:14 72 17 40 09/08/18 05:01 102 14 40 09/08/18 04:00 Mechanical Ventilator Mechanical Ventilator 09/08/18 04:00 97.8 75 17 110/71 (84) 96 09/08/18 04:00 40 09/08/18 03:27 102 12 40 09/08/18 03:15 72 09/08/18 01:29 67 15 40 09/08/18 00:00 40 09/08/18 00:00 97.9 110 15 139/61 (87) 100 09/08/18 00:00 Mechanical Ventilator Mechanical Ventilator 09/07/18 23:29 68 12 40 09/07/18 23:19 116 09/07/18 22:59 123/55 09/07/18 21:17 69 10 40 09/07/18 21:00 40 09/07/18 21:00 97.5 72 16 123/55 (77) 100 09/07/18 21:00 Mechanical Ventilator Mechanical Ventilator 09/07/18 19:40 108 14 40 09/07/18 19:15 106 09/07/18 17:20 115 17 40 09/07/18 16:00 113 09/07/18 16:00 96.6 112 15 116/43 (67) 100 09/07/18 16:00 40 09/07/18 16:00 Mechanical Ventilator Mechanical Ventilator 09/07/18 15:10 115 15 40 09/07/18 13:00 105 19 40 09/07/18 12:00 Mechanical Ventilator Mechanical Ventilator 09/07/18 12:00 97.5 68 16 126/35 (65) 100 09/07/18 12:00 70 09/07/18 12:00 40 09/07/18 11:20 86 20 40 Intake and Output 09/07/18 09/08/18 18:59 06:59 Intake Total 1010 ml 640 ml Output Total 250 ml Balance 760 ml 640 ml Free Water 200 ml 100 ml IV Total 330 ml Tube Feeding 480 ml 440 ml Other 100 ml Stool Total 250 ml # Voids 1 Laboratory Tests Test 09/08/18 04:00 White Blood Count 12.2 K/UL (4.8-10.8) H Red Blood Count 2.49 M/UL (4.20-5.40) L Hemoglobin 7.4 G/DL (12.0-16.0) L Hematocrit 23.0 % (37.0-47.0) L Mean Corpuscular Volume 93 FL (80-99) Mean Corpuscular Hemoglobin 29.9 PG (27.0-31.0) Mean Corpuscular Hemoglobin Concent 32.3 G/DL (32.0-36.0) Red Cell Distribution Width 17.4 % (11.6-14.8) H Platelet Count 432 K/UL (150-450) Mean Platelet Volume 5.7 FL (6.5-10.1) L Neutrophils (%) (Auto) % (45.0-75.0) Lymphocytes (%) (Auto) % (20.0-45.0) Monocytes (%) (Auto) % (1.0-10.0) Eosinophils (%) (Auto) % (0.0-3.0) Basophils (%) (Auto) % (0.0-2.0) Neutrophils % (Manual) Pending Lymphocytes % (Manual) Pending Platelet Estimate Pending Platelet Morphology Pending Sodium Level 133 MMOL/L (136-145) L Potassium Level 4.0 MMOL/L (3.5-5.1) Chloride Level 96 MMOL/L (98-107) L Carbon Dioxide Level 30 MMOL/L (21-32) Anion Gap 7 mmol/L (5-15) Blood Urea Nitrogen 44 mg/dL (7-18) H Creatinine 1.7 MG/DL (0.55-1.30) H Estimat Glomerular Filtration Rate mL/min (>60) Glucose Level 110 MG/DL (74-106) H Calcium Level 8.9 MG/DL (8.5-10.1) Height (Feet): 5 Height (Inches): 2.00 Weight (Pounds): 120 General Appearance: alert Cardiovascular: regular rhythm Respiratory/Chest: normal breath sounds, no respiratory distress Abdominal Exam: non tender, GT site - Clean dry and intact Rita Quintanilla NP Sep 08, 2018 10:52
[2018-09-08 12:00] VITALS: BP 168/69
--- NOTE | 2018-09-08 12:38 | NUR ---
NURSE NOTES: Paged Dr Cabezas regarding Hgb 7.4. Await call back for new orders.
[2018-09-08] MEDS: LORazepam 0.5mg tab ORAL PRN (14:34)
[2018-09-08] MEDS: Norco 5mg/325mg tab GT PRN ×2 (14:34→22:02)
--- NOTE | 2018-09-08 14:35 | NUR ---
NURSE NOTES: Ativan 0.5mg and [place] 5/325 one tab PO given for anxiety and pain. Son at bedside. Will continue to monitor.
[2018-09-08] MEDS ORDERED: NS 275ml ONE ×2 (14:56→17:06)
[2018-09-08] MEDS ORDERED: Tubing IV Secondary IV ONE ×2 (14:56→17:06)
--- NOTE | 2018-09-08 15:30 | NUR ---
NURSE NOTES: Dr He called back. No new orders for Hgb.
--- NOTE | 2018-09-08 16:06 | NUR ---
CASE MANAGEMENT: REVIEW SI: ESRD ON HD TRACHEOSTOMY 08/15 PEG PLACEMENT 08/17 T 98.1 HR 104 RR 18 BP 168/69 SAT 100% MECH VENT FIO2 40 WBC 12.2 H/H 7.4/23.0 IS: MEROPENEM IV QD AMIODARONE GT QD MINOXIDIL GT Q12HR ELEQUIS GT BID GT FEEDING NEPRO @ 40ML/HR HD PRN STEP DOWN UNIT STATUS DCP: PATIENT IS FROM [facility]. REFERRED TO [facility]. [facility] WILL NOT ACCEPT PATIENT WITHOUT CHAIR TIME AT [facility]. PATIENT REFERRED TO [facility]. AWAITING CHAIR TIME AT DIALYSIS CENTER.
--- NOTE | 2018-09-08 16:09 | Pulmonology Progress Note ---
Assessment/Plan Assessment/Plan 1. Hypotension per history 2. Sepsis. 3. Atrial fibrillation. 4. Bradycardia. 5. Diabetes mellitus. 6. End-stage renal disease on dialysis. 7. Left lung collapse. s/p bronchoscopy 8. Respiratory failure, acute on chronic s/p trach 9. Dysphagia. 10. Dementia. 11. Anemia 12. Pneumonia 13. bilateral effusion PLAN respiratory care without change full vent support monitor imaging and recommend oxygen taper and monitor needs aspiration precautions keep negative supportive care for now will follow up and recommend for change and monitor as is impression, plan, and exam edited and reviewed in detail care discussed with RN medications/laboratory data/nursing notes reviewed in detail note reviewed and edited care discussed with RN and RT Subjective ROS Limited/Unobtainable: Yes Allergies: Coded Allergies: No Known Allergies (Unverified , 07/25/18) Subjective care noted and reviewed no distress events reviewed and discussed trach in place Objective Last 24 Hour Vital Signs Date Time Temp Pulse Resp B/P (MAP) Pulse Ox O2 Delivery O2 Flow Rate FiO2 09/08/18 16:00 Mechanical Ventilator Mechanical Ventilator 09/08/18 16:00 40 09/08/18 15:43 66 12 40 09/08/18 12:44 87 16 40 09/08/18 12:00 98.1 104 18 168/69 (102) 100 09/08/18 12:00 Mechanical Ventilator Mechanical Ventilator 09/08/18 12:00 40 09/08/18 12:00 110 09/08/18 10:50 63 11 40 09/08/18 09:02 74 13 40 09/08/18 08:02 79 09/08/18 08:00 40 09/08/18 08:00 97.9 100 12 92/23 (46) 100 09/08/18 08:00 Mechanical Ventilator Mechanical Ventilator 09/08/18 07:14 72 17 40 09/08/18 05:01 102 14 40 09/08/18 04:00 Mechanical Ventilator Mechanical Ventilator 09/08/18 04:00 97.8 75 17 110/71 (84) 96 09/08/18 04:00 40 09/08/18 03:27 102 12 40 09/08/18 03:15 72 09/08/18 01:29 67 15 40 09/08/18 00:00 40 09/08/18 00:00 97.9 110 15 139/61 (87) 100 09/08/18 00:00 Mechanical Ventilator Mechanical Ventilator 09/07/18 23:29 68 12 40 09/07/18 23:19 116 09/07/18 22:59 123/55 09/07/18 21:17 69 10 40 09/07/18 21:00 40 09/07/18 21:00 97.5 72 16 123/55 (77) 100 09/07/18 21:00 Mechanical Ventilator Mechanical Ventilator 09/07/18 19:40 108 14 40 09/07/18 19:15 106 09/07/18 17:20 115 17 40 Intake and Output 09/07/18 09/08/18 18:59 06:59 Intake Total 1010 ml 640 ml Output Total 250 ml Balance 760 ml 640 ml Free Water 200 ml 100 ml IV Total 330 ml Tube Feeding 480 ml 440 ml Other 100 ml Stool Total 250 ml # Voids 1 Objective WDWN NAD intubated/trach reduced breath sounds bilaterally without rhonchi or wheeze [id number] without MRG NABS nontender no HSM no CCE poorly responsive Laboratory Tests 09/08/18 04:00: White Blood Count 12.2H, Red Blood Count 2.49L, Hemoglobin 7.4L, Hematocrit 23.0L, Mean Corpuscular Volume 93, Mean Corpuscular Hemoglobin 29.9, Mean Corpuscular Hemoglobin Concent 32.3, Red Cell Distribution Width 17.4H, Platelet Count 432, Mean Platelet Volume 5.7L, Neutrophils (%) (Auto) , Lymphocytes (%) (Auto) , Monocytes (%) (Auto) , Eosinophils (%) (Auto) , Basophils (%) (Auto) , Differential Total Cells Counted 100, Neutrophils % ( Manual) 78H, Lymphocytes % (Manual) 7L, Monocytes % (Manual) 12H, Eosinophils % (Manual) 1, Basophils % (Manual) 1, Band Neutrophils 1, Platelet Estimate IncreasedH, Platelet Morphology Normal, Hypochromasia 1+, Anisocytosis 1+, Sodium Level 133L, Potassium Level 4.0, Chloride Level 96L, Carbon Dioxide Level 30, Anion Gap 7, Blood Urea Nitrogen 44H, Creatinine 1.7H, Estimat Glomerular Filtration Rate , Glucose Level 110H, Calcium Level 8.9 Current Medications Medications (Trade) Dose Ordered Sig/Renetta Route PRN Reason Start Time Stop Time Status Last Admin Dose Admin Acetaminophen (Tylenol) 650 mg Q6H PRN GT Mild Pain/Temp > 100.5 08/21/18 16:00 09/18/18 15:59 09/08/18 08:49 Acetaminophen/ Hydrocodone Bitart ([place] 5/325) 1 tab Q6H PRN GT For Pain 09/06/18 13:35 09/13/18 13:00 09/08/18 14:34 Amiodarone HCl (Cordarone) 200 mg DAILY GT 08/31/18 09:00 09/24/18 20:59 09/08/18 08:49 Apixaban (Eliquis) 2.5 mg BID GT 08/25/18 18:00 09/24/18 17:59 09/07/18 17:49 Artificial Tears (Akwa-Tears) 1 drop Q4H PRN BOTH EYES Dry Eyes 08/21/18 15:30 09/19/18 15:29 08/30/18 16:53 Chlorhexidine Gluconate (Rylie-Hex 2%) 1 applic DAILY@2000 TOPIC 08/28/18 20:00 09/27/18 19:59 09/07/18 22:59 Collagenase (Santyl) 1 applic DAILY TOPIC 09/05/18 21:00 10/05/18 08:59 09/08/18 08:50 Lansoprazole (Prevacid) 30 mg Q12HR GT 08/25/18 21:00 09/24/18 20:59 09/08/18 08:49 Lorazepam (Ativan) 0.5 mg Q6H PRN ORAL For Anxiety 09/04/18 15:45 09/11/18 15:44 09/08/18 14:34 Meropenem 500 mg/ Sodium Chloride 55 ml @ 110 mls/hr DAILY IVPB 09/07/18 12:00 09/12/18 11:59 09/08/18 08:48 Minoxidil (Loniten) 2.5 mg Q12HR GT 08/25/18 21:00 09/24/18 20:59 09/07/18 22:59 Sodium Chloride ([place] Nasal [place]) 1 spray Q4H PRN NASAL dry nose 08/21/18 14:30 09/19/18 18:29 08/23/18 11:49 Zolpidem Tartrate (Ambien) 5 mg HSPRN PRN GT Insomnia 09/01/18 20:45 09/08/18 20:44 09/07/18 04:20 Quan Robles MD Sep 08, 2018 16:09
--- NOTE | 2018-09-08 17:35 | Nephrology Progress Note ---
Assessment/Plan Assessment Seee below Plan ESRD HD q MWF Anemia of CKD , DARRYN high dose. A. 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 with LAE. LVEF 65% . On Eliquis. Post trach + PEG . Referred to [facility]. Pt's son agreeable to [facility]. Referred again. See orders. Still needs extensive Vascular W/U. Subjective Subjective No new c/o. Objective Objective Last 24 Hour Vital Signs Date Time Temp Pulse Resp B/P (MAP) Pulse Ox O2 Delivery O2 Flow Rate FiO2 09/08/18 16:00 Mechanical Ventilator Mechanical Ventilator 09/08/18 16:00 40 09/08/18 15:48 65 09/08/18 15:43 66 12 40 09/08/18 12:44 87 16 40 09/08/18 12:00 98.1 104 18 168/69 (102) 100 09/08/18 12:00 Mechanical Ventilator Mechanical Ventilator 09/08/18 12:00 40 09/08/18 12:00 110 09/08/18 10:50 63 11 40 09/08/18 09:02 74 13 40 09/08/18 08:02 79 09/08/18 08:00 40 09/08/18 08:00 97.9 100 12 92/23 (46) 100 09/08/18 08:00 Mechanical Ventilator Mechanical Ventilator 09/08/18 07:14 72 17 40 09/08/18 05:01 102 14 40 09/08/18 04:00 Mechanical Ventilator Mechanical Ventilator 09/08/18 04:00 97.8 75 17 110/71 (84) 96 09/08/18 04:00 40 09/08/18 03:27 102 12 40 09/08/18 03:15 72 09/08/18 01:29 67 15 40 09/08/18 00:00 40 09/08/18 00:00 97.9 110 15 139/61 (87) 100 09/08/18 00:00 Mechanical Ventilator Mechanical Ventilator 09/07/18 23:29 68 12 40 09/07/18 23:19 116 09/07/18 22:59 123/55 09/07/18 21:17 69 10 40 09/07/18 21:00 40 09/07/18 21:00 97.5 72 16 123/55 (77) 100 09/07/18 21:00 Mechanical Ventilator Mechanical Ventilator 09/07/18 19:40 108 14 40 09/07/18 19:15 106 Intake and Output 09/07/18 09/08/18 18:59 06:59 Intake Total 1010 ml 640 ml Output Total 250 ml Balance 760 ml 640 ml Free Water 200 ml 100 ml IV Total 330 ml Tube Feeding 480 ml 440 ml Other 100 ml Stool Total 250 ml # Voids 1 Laboratory Tests 09/08/18 04:00: White Blood Count 12.2H, Red Blood Count 2.49L, Hemoglobin 7.4L, Hematocrit 23.0L, Mean Corpuscular Volume 93, Mean Corpuscular Hemoglobin 29.9, Mean Corpuscular Hemoglobin Concent 32.3, Red Cell Distribution Width 17.4H, Platelet Count 432, Mean Platelet Volume 5.7L, Neutrophils (%) (Auto) , Lymphocytes (%) (Auto) , Monocytes (%) (Auto) , Eosinophils (%) (Auto) , Basophils (%) (Auto) , Differential Total Cells Counted 100, Neutrophils % ( Manual) 78H, Lymphocytes % (Manual) 7L, Monocytes % (Manual) 12H, Eosinophils % (Manual) 1, Basophils % (Manual) 1, Band Neutrophils 1, Platelet Estimate IncreasedH, Platelet Morphology Normal, Hypochromasia 1+, Anisocytosis 1+, Sodium Level 133L, Potassium Level 4.0, Chloride Level 96L, Carbon Dioxide Level 30, Anion Gap 7, Blood Urea Nitrogen 44H, Creatinine 1.7H, Estimat Glomerular Filtration Rate , Glucose Level 110H, Calcium Level 8.9 Height (Feet): 5 Height (Inches): 2.00 Weight (Pounds): 120 Objective On vent. Trach clean. Cv IRR/IRR Lungs B ronchi. Abd SNT. BS + PEG. E Rt. foot diabetic ulcers Chase He MD Sep 08, 2018 17:34
[2018-09-08 17:51] VITALS: BP 137/70
--- NOTE | 2018-09-08 19:37 | NUR ---
HAND-OFF: Report given to BALDO Estevez.
--- NOTE | 2018-09-08 19:40 | NUR ---
NURSE NOTES: Report received from BALDO BASURTO. Pt is alert, awake and confused. Resist to care and combative at times. On bilateral soft restraints. A-fib on night monitor in 80's. Trach to vent.mode on AC 8, TV 450, FiO2 40%, P 5. O2 sat 98-100%. No respiratory distress noted. G-tube in place receiving Nepro at 40cc/hr. No residual noted. HOB elevated. Right upper arm midline patent and asymptomatic. Left UA AV shunt for HD noted.presence of bruit and thrill. Bed in lowest position. Side rails up x3. Will resume plan of care.
[2018-09-08 20:00] VITALS: BP 99/46
--- NOTE | 2018-09-08 20:07 | Cardiology Progress Note ---
Assessment/Plan Assessment/Plan 1. Hypotension, resolved 2. Paroxysmal episodes of atrial fibrillation history. 3. Bradycardia secondary to medications, amiodarone possibly. 4. Diabetes mellitus. 5. End-stage renal disease, on hemodialysis. 6. Lung collapse. 7. Respiratory failure, status post intubation. 8. Dysphagia. 9. History of dementia. 10. Pulm htn 11. Pleural effusion 12. cardaic arrest 13. chest wall pain post cpr 14. hyponatremai mostly in sinus now amiod 200 mg daily vent support s/p trach peg done on minoxidl and hold parameter applied on elequis 2.5 mg bid for stroke prevention awaits snf Subjective ROS Limited/Unobtainable: Yes Subjective on the vent, has pain is in restriatns Objective Last 24 Hour Vital Signs Date Time Temp Pulse Resp B/P (MAP) Pulse Ox O2 Delivery O2 Flow Rate FiO2 09/08/18 19:29 77 19 40 09/08/18 17:51 98.1 74 14 137/70 (92) 100 09/08/18 17:27 66 16 40 09/08/18 16:00 Mechanical Ventilator Mechanical Ventilator 09/08/18 16:00 40 09/08/18 15:48 65 09/08/18 15:43 66 12 40 09/08/18 12:44 87 16 40 09/08/18 12:00 98.1 104 18 168/69 (102) 100 09/08/18 12:00 Mechanical Ventilator Mechanical Ventilator 09/08/18 12:00 40 09/08/18 12:00 110 09/08/18 10:50 63 11 40 09/08/18 09:02 74 13 40 09/08/18 08:02 79 09/08/18 08:00 40 09/08/18 08:00 97.9 100 12 92/23 (46) 100 09/08/18 08:00 Mechanical Ventilator Mechanical Ventilator 09/08/18 07:14 72 17 40 09/08/18 05:01 102 14 40 09/08/18 04:00 Mechanical Ventilator Mechanical Ventilator 09/08/18 04:00 97.8 75 17 110/71 (84) 96 09/08/18 04:00 40 09/08/18 03:27 102 12 40 09/08/18 03:15 72 09/08/18 01:29 67 15 40 09/08/18 00:00 40 09/08/18 00:00 97.9 110 15 139/61 (87) 100 09/08/18 00:00 Mechanical Ventilator Mechanical Ventilator 09/07/18 23:29 68 12 40 09/07/18 23:19 116 09/07/18 22:59 123/55 09/07/18 21:17 69 10 40 09/07/18 21:00 40 09/07/18 21:00 97.5 72 16 123/55 (77) 100 09/07/18 21:00 Mechanical Ventilator Mechanical Ventilator General Appearance: no apparent distress, alert, on vent, patient on isolation Intake and Output 09/07/18 09/08/18 19:00 07:00 Intake Total 1010 ml 640 ml Output Total 250 ml Balance 760 ml 640 ml Free Water 200 ml 100 ml IV Total 330 ml Tube Feeding 480 ml 440 ml Other 100 ml Stool Total 250 ml # Voids 1 Laboratory Tests Test 09/08/18 04:00 White Blood Count 12.2 K/UL (4.8-10.8) H Red Blood Count 2.49 M/UL (4.20-5.40) L Hemoglobin 7.4 G/DL (12.0-16.0) L Hematocrit 23.0 % (37.0-47.0) L Mean Corpuscular Volume 93 FL (80-99) Mean Corpuscular Hemoglobin 29.9 PG (27.0-31.0) Mean Corpuscular Hemoglobin Concent 32.3 G/DL (32.0-36.0) Red Cell Distribution Width 17.4 % (11.6-14.8) H Platelet Count 432 K/UL (150-450) Mean Platelet Volume 5.7 FL (6.5-10.1) L Neutrophils (%) (Auto) % (45.0-75.0) Lymphocytes (%) (Auto) % (20.0-45.0) Monocytes (%) (Auto) % (1.0-10.0) Eosinophils (%) (Auto) % (0.0-3.0) Basophils (%) (Auto) % (0.0-2.0) Differential Total Cells Counted 100 Neutrophils % (Manual) 78 % (45-75) H Lymphocytes % (Manual) 7 % (20-45) L Monocytes % (Manual) 12 % (1-10) H Eosinophils % (Manual) 1 % (0-3) Basophils % (Manual) 1 % (0-2) Band Neutrophils 1 % (0-8) Platelet Estimate Increased H Platelet Morphology Normal Hypochromasia 1+ Anisocytosis 1+ Sodium Level 133 MMOL/L (136-145) L Potassium Level 4.0 MMOL/L (3.5-5.1) Chloride Level 96 MMOL/L (98-107) L Carbon Dioxide Level 30 MMOL/L (21-32) Anion Gap 7 mmol/L (5-15) Blood Urea Nitrogen 44 mg/dL (7-18) H Creatinine 1.7 MG/DL (0.55-1.30) H Estimat Glomerular Filtration Rate mL/min (>60) Glucose Level 110 MG/DL (74-106) H Calcium Level 8.9 MG/DL (8.5-10.1) Angelo Butler MD Sep 08, 2018 20:07
[2018-09-08] MEDS: Dyna-Hex 2% Top Sol 2oz TOPIC SCH (22:00)
[2018-09-09] VITALS: BP 130/56
[2018-09-09 04:00] VITALS: BP 133/75
--- NOTE | 2018-09-09 07:15 | NUR ---
NURSE NOTES: RECEIVED BED SIDE REPORT FROM [facility] OF [facility].RECEIVED PT WITH HOB ELEVATED 45 DEGREE ALERT TO NAME ,NON-VERBAL TRACH TO VENT DEPENDENT,TOLERATING WELL CURRENTS VENTS SETTINGS.RENDERED TRACH CARE AND ORAL HYGIENE,SX,D MOD AMT OF YELLOWISH SECRETIONS .PT WITH BILAT SOFT WRIST RESTRAINTS TO PREVENT FROM PULLING MEDICAL DEVICES.RELEASED BILAT SOFT WRIST RESTRAINTS AND PROVIDE ROM,S TO ALL EXTREMITIES ALSO REPOSITIONED Q 2HRS TO PROVIDE COMFORT AND TO PREVENT FURTHERS SKIN BREAK DOWN.WILL CONT TO MONITOR.PT RECEIVING NEPRO @ 40CC/HRS ,NO RESIDUAL NOTED AT THIS TIME.WILL CONT TO MONITOR.
--- NOTE | 2018-09-09 07:46 | Nephrology Progress Note ---
Assessment/Plan Assessment Seee below Plan ESRD HD q MWF Anemia of CKD , DARRYN high dose. A. 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 with LAE. LVEF 65% . On Eliquis. Post trach + PEG . Referred to [facility]. Pt's son agreeable to [facility]. Referred again. See orders. Still needs extensive Vascular W/U. Subjective Subjective Very Anxious Objective Objective Last 24 Hour Vital Signs Date Time Temp Pulse Resp B/P (MAP) Pulse Ox O2 Delivery O2 Flow Rate FiO2 09/09/18 05:06 75 19 40 09/09/18 04:00 40 09/09/18 04:00 97.1 87 19 133/75 (94) 99 09/09/18 04:00 Mechanical Ventilator Mechanical Ventilator 09/09/18 04:00 75 09/09/18 03:02 80 17 40 09/09/18 00:54 78 19 40 09/09/18 00:00 40 09/09/18 00:00 82 09/09/18 00:00 98.8 115 28 130/56 (80) 99 09/09/18 00:00 Mechanical Ventilator Mechanical Ventilator 09/08/18 22:31 82 18 40 09/08/18 21:00 99/46 09/08/18 20:55 84 17 40 09/08/18 20:00 Mechanical Ventilator Mechanical Ventilator 09/08/18 20:00 98.4 88 18 99/46 (63) 100 09/08/18 20:00 40 09/08/18 20:00 106 09/08/18 19:29 77 19 40 09/08/18 17:51 98.1 74 14 137/70 (92) 100 09/08/18 17:27 66 16 40 09/08/18 16:00 Mechanical Ventilator Mechanical Ventilator 09/08/18 16:00 40 09/08/18 15:48 65 09/08/18 15:43 66 12 40 09/08/18 12:44 87 16 40 09/08/18 12:00 98.1 104 18 168/69 (102) 100 09/08/18 12:00 Mechanical Ventilator Mechanical Ventilator 09/08/18 12:00 40 09/08/18 12:00 110 09/08/18 10:50 63 11 40 09/08/18 09:02 74 13 40 09/08/18 08:02 79 09/08/18 08:00 40 09/08/18 08:00 97.9 100 12 92/23 (46) 100 09/08/18 08:00 Mechanical Ventilator Mechanical Ventilator Intake and Output 09/08/18 09/09/18 19:00 07:00 Intake Total 555 ml 640 ml Output Total 200 ml Balance 555 ml 440 ml Free Water 100 ml 150 ml IV Total 55 ml Tube Feeding 400 ml 440 ml Other 50 ml Stool Total 200 ml # Voids 1 Height (Feet): 5 Height (Inches): 2.00 Weight (Pounds): 124 Objective On vent. Trach clean. Cv IRR/IRR Lungs B ronchi. Abd SNT. BS + PEG. E Rt. foot diabetic ulcers Chase He MD Sep 09, 2018 07:46
[2018-09-09 08:00] VITALS: BP 135/57
--- NOTE | 2018-09-09 08:11 | NUR ---
HAND-OFF: Report given to XOCHITL FOWLER RN using SBAR.
[2018-09-09] MEDS: Eliquis 2.5mg tablet GT SCH ×2 (10:24→17:40)
[2018-09-09] MEDS: Amiodarone 200mg tab GT SCH (10:25)
[2018-09-09] MEDS: Minoxidil 2.5mg tab GT SCH ×2 (10:25→20:57)
[2018-09-09] MEDS: Meropenem 500 MG in NS 55 ML IVPB SCH (10:44)
--- NOTE | 2018-09-09 10:46 | Infectious Diseases Prog Note ---
Assessment/Plan Assessment/Plan antibiotics : meropenem A 1. e.coli UTI 2. pseudomonas pneumonia 3. leucocytosis improving 4. respiratory failure s/p tracheostomy 5. renal failure 6. 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 pleural effusion P 1. continue iv meropenem 6 more days 2. will follow up cultures Subjective ROS Limited/Unobtainable: Yes Allergies: Coded Allergies: No Known Allergies (Unverified , 07/25/18) Objective Vital Signs Last 24 Hour Vital Signs Date Time Temp Pulse Resp B/P (MAP) Pulse Ox O2 Delivery O2 Flow Rate FiO2 09/09/18 10:25 135/57 09/09/18 09:15 81 20 40 09/09/18 08:00 Mechanical Ventilator Mechanical Ventilator 09/09/18 08:00 96.0 78 14 135/57 (83) 96 09/09/18 08:00 40 09/09/18 05:06 75 19 40 09/09/18 04:00 40 09/09/18 04:00 97.1 87 19 133/75 (94) 99 09/09/18 04:00 Mechanical Ventilator Mechanical Ventilator 09/09/18 04:00 75 09/09/18 03:02 80 17 40 09/09/18 00:54 78 19 40 09/09/18 00:00 40 09/09/18 00:00 82 09/09/18 00:00 98.8 115 28 130/56 (80) 99 09/09/18 00:00 Mechanical Ventilator Mechanical Ventilator 09/08/18 22:31 82 18 40 09/08/18 21:00 99/46 09/08/18 20:55 84 17 40 09/08/18 20:00 Mechanical Ventilator Mechanical Ventilator 09/08/18 20:00 98.4 88 18 99/46 (63) 100 09/08/18 20:00 40 09/08/18 20:00 106 09/08/18 19:29 77 19 40 09/08/18 17:51 98.1 74 14 137/70 (92) 100 09/08/18 17:27 66 16 40 09/08/18 16:00 Mechanical Ventilator Mechanical Ventilator 09/08/18 16:00 40 09/08/18 15:48 65 09/08/18 15:43 66 12 40 09/08/18 12:44 87 16 40 09/08/18 12:00 98.1 104 18 168/69 (102) 100 09/08/18 12:00 Mechanical Ventilator Mechanical Ventilator 09/08/18 12:00 40 09/08/18 12:00 110 09/08/18 10:50 63 11 40 Height (Feet): 5 Height (Inches): 2.00 Weight (Pounds): 124 HEENT: status post trach Respiratory/Chest: lungs clear Cardiovascular: normal rate, regular rhythm, no gallop/murmur Abdomen: soft, non tender, other - GT Extremities: other - + edema, right arm PICC Current Medications Medications (Trade) Dose Ordered Sig/Renetta Route PRN Reason Start Time Stop Time Status Last Admin Dose Admin Acetaminophen (Tylenol) 650 mg Q6H PRN GT Mild Pain/Temp > 100.5 08/21/18 16:00 09/18/18 15:59 09/08/18 08:49 Acetaminophen/ Hydrocodone Bitart ([place] 5/325) 1 tab Q6H PRN GT For Pain 09/06/18 13:35 09/13/18 13:00 09/08/18 22:02 Amiodarone HCl (Cordarone) 200 mg DAILY GT 08/31/18 09:00 09/24/18 20:59 09/09/18 10:25 Apixaban (Eliquis) 2.5 mg BID GT 08/25/18 18:00 09/24/18 17:59 09/09/18 10:24 Artificial Tears (Akwa-Tears) 1 drop Q4H PRN BOTH EYES Dry Eyes 08/21/18 15:30 09/19/18 15:29 08/30/18 16:53 Chlorhexidine Gluconate (Rylie-Hex 2%) 1 applic DAILY@1999 TOPIC 08/28/18 20:00 09/27/18 19:59 09/08/18 22:00 Collagenase (Santyl) 1 applic DAILY TOPIC 09/05/18 21:00 10/05/18 08:59 09/09/18 09:00 Lansoprazole (Prevacid) 30 mg Q12HR GT 08/25/18 21:00 09/24/18 20:59 09/09/18 10:24 Lorazepam (Ativan) 0.5 mg Q6H PRN ORAL For Anxiety 09/04/18 15:45 09/11/18 15:44 09/08/18 14:34 Meropenem 500 mg/ Sodium Chloride 55 ml @ 110 mls/hr DAILY IVPB 09/07/18 12:00 09/12/18 11:59 09/08/18 08:48 Minoxidil (Loniten) 2.5 mg Q12HR GT 08/25/18 21:00 09/24/18 20:59 09/09/18 10:25 Sodium Chloride 1,000 ml @ 500 mls/hr Q2H PRN IVLG sbp<90 during hd 09/08/18 17:40 09/09/18 23:59 Sodium Chloride ([place] [address]) 1 spray Q4H PRN NASAL dry nose 08/21/18 14:30 09/19/18 18:29 08/23/18 11:49 Zolpidem Tartrate (Ambien) 5 mg HSPRN PRN ORAL Insomnia 09/09/18 08:00 09/16/18 07:59 Omid Morfin MD Sep 09, 2018 10:46
[2018-09-09] MEDS: Norco 5mg/325mg tab GT PRN ×2 (10:55→20:58)
--- NOTE | 2018-09-09 10:59 | NUR ---
CASE MANAGEMENT: REVIEW SI: ESRD ON HD TRACHEOSTOMY 08/15 PEG PLACEMENT 08/17 T 96.0 HR 78 RR 14 BP 135/57 SAT 96% MECH VENT FIO2 40 IS: MEROPENEM IV QD AMIODARONE GT QD MINOXIDIL GT Q12HR ELEQUIS GT BID GT FEEDING NEPRO @ 40ML/HR HD PRN STEP DOWN UNIT STATUS DCP: PATIENT IS FROM [facility]. PATIENT REFERRED TO [facility]. [facility] WILL NOT ACCEPT PATIENT WITHOUT CHAIR TIME AT [facility]. PATIENT REFERRED TO [facility]. AWAITING CHAIR TIME AT DIALYSIS CENTER.
--- NOTE | 2018-09-09 11:53 | GI Progress Note ---
Assessment/Plan Problems: (1) Encounter for PEG (percutaneous endoscopic gastrostomy) ICD Codes: Z43.1 - Encounter for attention to gastrostomy SNOMED: 373079181, 103650551 (2) Severe malnutrition ICD Codes: E43 - Unspecified severe protein-calorie malnutrition SNOMED: 77468627 (3) Dehydration ICD Codes: E86.0 - Dehydration SNOMED: 78242382 Status: unchanged Status Narrative Discussed with Dr. Cox. Assessment/Plan Assessment - Dysphagia - Resp failure - ESRD - Anemia - Status post PEG, tolerating feeds Recommendations 1. Abdominal binder. 2. Elevate the head of the bed at all times. 3. G-tube flush. 4. G-tube care. 5. tube feeding later today per RD to goal Monitor H&H, PRN transfusions PPI Electrolyte correction Follow-up labs The patient was seen and examined at bedside and all new and available data was reviewed in the patients chart. I agree with the above findings, impression and plan. (Patient seen earlier today. Signature stamp does not reflect patient encounter time.). - Oc Cox MD Subjective Subjective limited Objective Last 24 Hour Vital Signs Date Time Temp Pulse Resp B/P (MAP) Pulse Ox O2 Delivery O2 Flow Rate FiO2 09/09/18 11:28 79 18 40 09/09/18 11:25 96.0 09/09/18 10:25 135/57 09/09/18 09:15 81 20 40 09/09/18 08:00 Mechanical Ventilator Mechanical Ventilator 09/09/18 08:00 80 09/09/18 08:00 96.0 78 14 135/57 (83) 96 09/09/18 08:00 40 09/09/18 05:06 75 19 40 09/09/18 04:00 40 09/09/18 04:00 97.1 87 19 133/75 (94) 99 09/09/18 04:00 Mechanical Ventilator Mechanical Ventilator 09/09/18 04:00 75 09/09/18 03:02 80 17 40 09/09/18 00:54 78 19 40 09/09/18 00:00 40 09/09/18 00:00 82 09/09/18 00:00 98.8 115 28 130/56 (80) 99 09/09/18 00:00 Mechanical Ventilator Mechanical Ventilator 09/08/18 22:31 82 18 40 09/08/18 21:00 99/46 09/08/18 20:55 84 17 40 09/08/18 20:00 Mechanical Ventilator Mechanical Ventilator 09/08/18 20:00 98.4 88 18 99/46 (63) 100 09/08/18 20:00 40 09/08/18 20:00 106 09/08/18 19:29 77 19 40 09/08/18 17:51 98.1 74 14 137/70 (92) 100 09/08/18 17:27 66 16 40 09/08/18 16:00 Mechanical Ventilator Mechanical Ventilator 09/08/18 16:00 40 09/08/18 15:48 65 09/08/18 15:43 66 12 40 09/08/18 12:44 87 16 40 09/08/18 12:00 98.1 104 18 168/69 (102) 100 09/08/18 12:00 Mechanical Ventilator Mechanical Ventilator 09/08/18 12:00 40 09/08/18 12:00 110 Intake and Output 09/08/18 09/09/18 19:00 07:00 Intake Total 555 ml 680 ml Output Total 200 ml Balance 555 ml 480 ml Free Water 100 ml 150 ml IV Total 55 ml Tube Feeding 400 ml 480 ml Other 50 ml Stool Total 200 ml # Voids 1 Height (Feet): 5 Height (Inches): 2.00 Weight (Pounds): 124 General Appearance: WD/WN, no apparent distress, alert Cardiovascular: normal rate Respiratory/Chest: normal breath sounds, no respiratory distress Abdominal Exam: normal bowel sounds, non tender, soft, GT site - clean dry intact Extremities: normal range of motion, non-tender Rita Quintanilla [employer] Sep 09, 2018 11:53
[2018-09-09 12:00] VITALS: BP 127/55
--- NOTE | 2018-09-09 13:00 | NUR ---
NURSE NOTES: PT RECEIVING H.D AT THIS TIME,TOLERATING WELL PROCEDURE.WILL CONT TO MONITOR.
--- NOTE | 2018-09-09 13:39 | NUR ---
RD ASSESSMENT & RECOMMENDATIONS SEE CARE ACTIVITY FOR COMPLETE ASSESSMENT DAILY ESTIMATED NEEDS: Needs based on Critical care + Advanced Wounds + ESRD/ 60kg 22-30 kcals/kg 4311-9082 total kcals 1.5-2.0 g protein/kg 90-120g g total protein per MD mL/kg total fluid mLs NUTRITION DIAGNOSIS: * Swallowing difficulty R/T respiratory status as evidenced by pt s/p self extubation, s/p code bluce, reintubated, now s/p trach and PEG placement. * Increased kcal/prot needs R/T wound healing as evidenced by pt admitted w/ multiple wounds including stage 4 sacral wound, refer to WC eval. * Altered nutrition related lab values R/T ESRD dx, clinical condition as evidenced by low K (2.7-> wnl), episodes of hypoglycemia (68 69-> now resolved), elev creat (4.6-> 1.7 trend down), low Na (133 132 128 131). CURRENT TF:Nepro @40ml/hr + PS BID ENTERAL NUTRITION RECOMMENDATIONS: Nepro @40ml/hr x 24 hrs + Prosource 1pkt BID to provide 960ml, 1728kcal, 78g + 22g prot, 698ml free water 1. Maintain current rate + Prosource 1 pack BID to better meet est protein needs 2. HOB over 30 degrees 3. Decrease water flushes to improve Na level ADDITIONAL RECOMMENDATIONS: * RECALIBRATE BED SCALE POST TRACH AND PEG PROCEDURES * Wound healing- Nephrovite x 1, Continue Afshin 1pkt BID * Monitor for hypoglcyemia Decrease water flushes to help improve Na level- consistently low Na Probiotics for loose BM * Monitor lytes daily w/ con't loose stool
--- NOTE | 2018-09-09 14:32 | Pulmonology Progress Note ---
Assessment/Plan Assessment/Plan Pulmonary Progress Note Assessment/Plan Assessment/Plan 1. Hypotension per history , now resolved 2. Sepsis. 3. Atrial fibrillation. 4. Bradycardia. 5. Diabetes mellitus. 6. End-stage renal disease on dialysis. 7. Left lung collapse. s/p bronchoscopy 8. Respiratory failure, acute on chronic s/p trach 9. Dysphagia. 10. Dementia. 11. Anemia 12. Pneumonia 13. bilateral effusion PLAN respiratory care without change full vent support monitor imaging and recommend oxygen taper and monitor needs aspiration precautions keep negative supportive care for now will follow up and recommend for change and monitor as is impression, plan, and exam edited and reviewed in detail care discussed with RN medications/laboratory data/nursing notes reviewed in detail note reviewed and edited care discussed with RN and RT Subjective ROS Limited/Unobtainable: Yes Allergies: Coded Allergies: No Known Allergies (Unverified , 07/25/18) Subjective care noted and reviewed no distress events reviewed and discussed trach in place Objective Vital Signs Noted Objective WDWN NAD intubated/trach reduced breath sounds bilaterally without rhonchi or wheeze [id number] without MRG NABS nontender no HSM no CCE poorly responsive Laboratory Tests 09/08/18 04:00: White Blood Count 12.2H, Red Blood Count 2.49L, Hemoglobin 7.4L, Hematocrit 23.0L, Mean Corpuscular Volume 93, Mean Corpuscular Hemoglobin 29.9, Mean Corpuscular Hemoglobin Concent 32.3, Red Cell Distribution Width 17.4H, Platelet Count 432, Mean Platelet Volume 5.7L, Neutrophils (%) (Auto) , Lymphocytes (%) (Auto) , Monocytes (%) (Auto) , Eosinophils (%) (Auto) , Basophils (%) (Auto) , Differential Total Cells Counted 100, Neutrophils % ( Manual) 78H, Lymphocytes % (Manual) 7L, Monocytes % (Manual) 12H, Eosinophils % (Manual) 1, Basophils % (Manual) 1, Band Neutrophils 1, Platelet Estimate IncreasedH, Platelet Morphology Normal, Hypochromasia 1+, Anisocytosis 1+, Sodium Level 133L, Potassium Level 4.0, Chloride Level 96L, Carbon Dioxide Level 30, Anion Gap 7, Blood Urea Nitrogen 44H, Creatinine 1.7H, Estimat Glomerular Filtration Rate , Glucose Level 110H, Calcium Level 8.9 Current Medications Medications (Trade) Dose Ordered Sig/Renetta Route PRN Reason Start Time Stop Time Status Last Admin Dose Admin Acetaminophen (Tylenol) 650 mg Q6H PRN GT Mild Pain/Temp > 100.5 08/21/18 16:00 09/18/18 15:59 09/08/18 08:49 Acetaminophen/ Hydrocodone Bitart ([place] 5/325) 1 tab Q6H PRN GT For Pain 09/06/18 13:35 09/13/18 13:00 09/08/18 14:34 Amiodarone HCl (Cordarone) 200 mg DAILY GT 08/31/18 09:00 09/24/18 20:59 09/08/18 08:49 Apixaban (Eliquis) 2.5 mg BID GT 08/25/18 18:00 09/24/18 17:59 09/07/18 17:49 Artificial Tears (Akwa-Tears) 1 drop Q4H PRN BOTH EYES Dry Eyes 08/21/18 15:30 09/19/18 15:29 08/30/18 16:53 Chlorhexidine Gluconate (Rylie-Hex 2%) 1 applic DAILY@2000 TOPIC 08/28/18 20:00 09/27/18 19:59 09/07/18 22:59 Collagenase (Santyl) 1 applic DAILY TOPIC 09/05/18 21:00 10/05/18 08:59 09/08/18 08:50 Lansoprazole (Prevacid) 30 mg Q12HR GT 08/25/18 21:00 09/24/18 20:59 09/08/18 08:49 Lorazepam (Ativan) 0.5 mg Q6H PRN ORAL For Anxiety 09/04/18 15:45 09/11/18 15:44 09/08/18 14:34 Meropenem 500 mg/ Sodium Chloride 55 ml @ 110 mls/hr DAILY IVPB 09/07/18 12:00 09/12/18 11:59 09/08/18 08:48 Minoxidil (Loniten) 2.5 mg Q12HR GT 08/25/18 21:00 09/24/18 20:59 09/07/18 22:59 Sodium Chloride ([place] Nasal [place]) 1 spray Q4H PRN NASAL dry nose 08/21/18 14:30 1/21/19 18:29 08/23/18 11:49 Zolpidem Tartrate (Ambien) 5 mg HSPRN PRN GT Insomnia 09/01/18 20:45 09/08/18 20:44 09/07/18 04:20 Subjective ROS Limited/Unobtainable: Yes Allergies: Coded Allergies: No Known Allergies (Unverified , 07/25/18) Objective Last 24 Hour Vital Signs Date Time Temp Pulse Resp B/P (MAP) Pulse Ox O2 Delivery O2 Flow Rate FiO2 09/09/18 13:16 80 18 40 09/09/18 12:00 40 09/09/18 12:00 Mechanical Ventilator Mechanical Ventilator 09/09/18 12:00 97.2 74 20 127/55 (79) 100 09/09/18 11:28 79 18 40 09/09/18 11:25 96.0 09/09/18 10:25 135/57 09/09/18 09:15 81 20 40 09/09/18 08:00 Mechanical Ventilator Mechanical Ventilator 09/09/18 08:00 80 09/09/18 08:00 96.0 78 14 135/57 (83) 96 09/09/18 08:00 40 09/09/18 05:06 75 19 40 09/09/18 04:00 40 09/09/18 04:00 97.1 87 19 133/75 (94) 99 09/09/18 04:00 Mechanical Ventilator Mechanical Ventilator 09/09/18 04:00 75 09/09/18 03:02 80 17 40 09/09/18 00:54 78 19 40 09/09/18 00:00 40 09/09/18 00:00 82 09/09/18 00:00 98.8 115 28 130/56 (80) 99 09/09/18 00:00 Mechanical Ventilator Mechanical Ventilator 09/08/18 22:31 82 18 40 09/08/18 21:00 99/46 09/08/18 20:55 84 17 40 09/08/18 20:00 Mechanical Ventilator Mechanical Ventilator 09/08/18 20:00 98.4 88 18 99/46 (63) 100 09/08/18 20:00 40 09/08/18 20:00 106 09/08/18 19:29 77 19 40 09/08/18 17:51 98.1 74 14 137/70 (92) 100 09/08/18 17:27 66 16 40 09/08/18 16:00 Mechanical Ventilator Mechanical Ventilator 09/08/18 16:00 40 09/08/18 15:48 65 09/08/18 15:43 66 12 40 Intake and Output 09/08/18 09/09/18 18:59 06:59 Intake Total 595 ml 640 ml Output Total 200 ml Balance 595 ml 440 ml Free Water 100 ml 150 ml IV Total 55 ml Tube Feeding 440 ml 440 ml Other 50 ml Stool Total 200 ml # Voids 1 Current Medications Medications (Trade) Dose Ordered Sig/Renetta Route PRN Reason Start Time Stop Time Status Last Admin Dose Admin Acetaminophen (Tylenol) 650 mg Q6H PRN GT Mild Pain/Temp > 100.5 08/21/18 16:00 09/18/18 15:59 09/08/18 08:49 Acetaminophen/ Hydrocodone Bitart ([place] 5/325) 1 tab Q6H PRN GT For Pain 09/06/18 13:35 09/13/18 13:00 09/09/18 10:55 Amiodarone HCl (Cordarone) 200 mg DAILY GT 08/31/18 09:00 09/24/18 20:59 09/09/18 10:25 Apixaban (Eliquis) 2.5 mg BID GT 08/25/18 18:00 09/24/18 17:59 09/09/18 10:24 Artificial Tears (Akwa-Tears) 1 drop Q4H PRN BOTH EYES Dry Eyes 08/21/18 15:30 09/19/18 15:29 08/30/18 16:53 Chlorhexidine Gluconate (Rylie-Hex 2%) 1 applic DAILY@1999 TOPIC 08/28/18 20:00 09/27/18 19:59 09/08/18 22:00 Collagenase (Santyl) 1 applic DAILY TOPIC 09/05/18 21:00 10/05/18 08:59 09/09/18 09:00 Lansoprazole (Prevacid) 30 mg Q12HR GT 08/25/18 21:00 09/24/18 20:59 09/09/18 10:24 Lorazepam (Ativan) 0.5 mg Q6H PRN ORAL For Anxiety 09/04/18 15:45 09/11/18 15:44 09/08/18 14:34 Meropenem 500 mg/ Sodium Chloride 55 ml @ 110 mls/hr DAILY IVPB 09/07/18 12:00 09/12/18 11:59 09/09/18 10:44 Minoxidil (Loniten) 2.5 mg Q12HR GT 08/25/18 21:00 09/24/18 20:59 09/09/18 10:25 Sodium Chloride 1,000 ml @ 500 mls/hr Q2H PRN IVLG sbp<90 during hd 09/08/18 17:40 09/09/18 23:59 Sodium Chloride ([place] Nasal [place]) 1 spray Q4H PRN NASAL dry nose 08/21/18 14:30 09/19/18 18:29 08/23/18 11:49 Zolpidem Tartrate (Ambien) 5 mg HSPRN PRN ORAL Insomnia 09/09/18 08:00 09/16/18 07:59 Negro Patel MD Sep 09, 2018 14:32
[2018-09-09 16:00] VITALS: BP 133/53
--- NOTE | 2018-09-09 16:00 | NUR ---
NURSE NOTES:H.D COMPLETED DONE BY LEONARDO BLAND, OUT PUT 2000ML, V/S STABLE.PT TOLERATED WELL H.D PROCEDURE.WILL CONT TO MONITOR.
[2018-09-09] MEDS ORDERED: Tubing IV Secondary IV ONE (16:13)
[2018-09-09] MEDS ORDERED: NS 275ml ONE (16:13)
--- NOTE | 2018-09-09 19:00 | NUR ---
HAND-OFF: Report given to .YNES BLAND.
--- NOTE | 2018-09-09 19:05 | NUR ---
NURSE NOTES: Received patient from [facility]DO FOWLER . patient is awake, nonverbal. able to communicate but agitated and combative. keeps trying to pull out medical devices. on bilateral soft wrist restraints with no skin issues. Trach to vent dependent with AC 8 TV 450 FIO2 40% PEEP 5 and sating 100%. no respiratory distress noted. ST with HR OF 102. VS stable. afebrile. on GT feeding with NEPRO at 40cc/hr with no residual. HOB elevated.c/o pain in sacral and rt buttock wound area .will give pain Meds as per order. Rectal tube in placed with brown liquid stool.skin remains clean and dry.bed in locked and lowest position . bed alarm on.call light in reach.will resume plan of care.
--- NOTE | 2018-09-09 19:38 | NUR ---
RESPIRATORY NOTE: Received pt. on 840 vent. Vent settings are: A/C rate of 8, Vt 450, FI02 40%, PEEP +5. No respiratory distress noted, Pt Sp02 @ 100%. Ambu bag @ bs. Vent plugged on red outlet. Will continue to monitor pt.
--- NOTE | 2018-09-09 19:45 | Cardiology Progress Note ---
Assessment/Plan Assessment/Plan 1. Hypotension, resolved 2. Paroxysmal episodes of atrial fibrillation history. 3. Bradycardia secondary to medications, amiodarone possibly. 4. Diabetes mellitus. 5. End-stage renal disease, on hemodialysis. 6. Lung collapse. 7. Respiratory failure, status post intubation. 8. Dysphagia. 9. History of dementia. 10. Pulm htn 11. Pleural effusion 12. cardaic arrest 13. chest wall pain post cpr 14. hyponatremai mostly in sinus now amiod 200 mg daily vent support s/p trach peg done on minoxidl and hold parameter applied on elequis 2.5 mg bid for stroke prevention awaits snf Subjective ROS Limited/Unobtainable: Yes Subjective on the vent Objective Last 24 Hour Vital Signs Date Time Temp Pulse Resp B/P (MAP) Pulse Ox O2 Delivery O2 Flow Rate FiO2 09/09/18 19:36 81 18 40 09/09/18 16:51 78 18 40 09/09/18 16:00 97.7 70 14 133/53 (79) 100 09/09/18 16:00 40 09/09/18 16:00 83 09/09/18 16:00 Mechanical Ventilator Mechanical Ventilator 09/09/18 15:09 82 18 40 09/09/18 13:16 80 18 40 09/09/18 12:00 40 09/09/18 12:00 Mechanical Ventilator Mechanical Ventilator 09/09/18 12:00 97.2 74 20 127/55 (79) 100 09/09/18 12:00 79 09/09/18 11:28 79 18 40 09/09/18 11:25 96.0 09/09/18 10:25 135/57 09/09/18 09:15 81 20 40 09/09/18 08:00 Mechanical Ventilator Mechanical Ventilator 09/09/18 08:00 80 09/09/18 08:00 96.0 78 14 135/57 (83) 96 09/09/18 08:00 40 09/09/18 05:06 75 19 40 09/09/18 04:00 40 09/09/18 04:00 97.1 87 19 133/75 (94) 99 09/09/18 04:00 Mechanical Ventilator Mechanical Ventilator 09/09/18 04:00 75 09/09/18 03:02 80 17 40 09/09/18 00:54 78 19 40 09/09/18 00:00 40 09/09/18 00:00 82 09/09/18 00:00 98.8 115 28 130/56 (80) 99 09/09/18 00:00 Mechanical Ventilator Mechanical Ventilator 09/08/18 22:31 82 18 40 09/08/18 21:00 99/46 09/08/18 20:55 84 17 40 09/08/18 20:00 Mechanical Ventilator Mechanical Ventilator 09/08/18 20:00 98.4 88 18 99/46 (63) 100 09/08/18 20:00 40 09/08/18 20:00 106 General Appearance: no apparent distress, alert, on vent, patient on isolation Intake and Output 09/08/18 09/09/18 18:59 06:59 Intake Total 595 ml 640 ml Output Total 200 ml Balance 595 ml 440 ml Free Water 100 ml 150 ml IV Total 55 ml Tube Feeding 440 ml 440 ml Other 50 ml Stool Total 200 ml # Voids 1 Angelo Butler MD Sep 09, 2018 19:45
[2018-09-09 20:00] VITALS: BP 149/79
[2018-09-09] MEDS: Dyna-Hex 2% Top Sol 2oz TOPIC SCH (20:57)
[2018-09-09] MEDS: Zolpidem 5mg tab ORAL PRN (20:58)
[2018-09-10] VITALS: BP 163/79
[2018-09-10] MEDS: LORazepam 0.5mg tab ORAL PRN ×2 (02:47→15:28)
[2018-09-10] MEDS: Norco 5mg/325mg tab GT PRN ×2 (02:47→17:27)
--- NOTE | 2018-09-10 03:00 | NUR ---
NURSE NOTES: Patient asleep in bed . No sign of respiratory distress with current vent settings. o2 saturation 98-100%. no facial grimace or moaning noted. Turned and repositioned. vs stable. afebrile. keep patient comfortable.
[2018-09-10 04:00] VITALS: BP 107/55
[2018-09-10 06:17] LABS: HEMATOCRIT 20.9 % (37.0-47.0); MEAN CORPUSCULAR VOLUME 96 FL (80-99); PLATELET COUNT 411 K/UL (150-450); RED BLOOD COUNT 2.18 M/UL (4.20-5.40); RED CELL DISTRIBUTION WIDTH 17.7 % (11.6-14.8); WHITE BLOOD COUNT 8.3 K/UL (4.8-10.8)
--- NOTE | 2018-09-10 06:30 | NUR ---
NURSE NOTES: Received report from lab regarding H&H .. will inform Dr. ALY
--- NOTE | 2018-09-10 06:30 | NUR ---
NURSE NOTES: Received report from LAB regarding H7h
[2018-09-10 06:36] LABS: HEMOGLOBIN 6.5 G/DL (12.0-16.0)
--- NOTE | 2018-09-10 06:50 | NUR ---
NURSE NOTES: Called and left message to Dr. ALY regarding low H&H. awaiting for MD call back.
[2018-09-10 06:56] LABS: ANION GAP 7 mmol/L (5-15); BLOOD UREA NITROGEN 31 mg/dL (7-18); CALCIUM 8.8 MG/DL (8.5-10.1); CARBON DIOXIDE 31 MMOL/L (21-32); CHLORIDE 99 MMOL/L (98-107); CREATININE 1.5 MG/DL (0.55-1.30); PHOSPHORUS 3.3 MG/DL (2.5-4.9); POTASSIUM 3.7 MMOL/L (3.5-5.1); SODIUM 136 MMOL/L (136-145)
--- NOTE | 2018-09-10 07:30 | NUR ---
NURSE NOTES: Report received from BALDO Estevez. Patient seen in bed in butler position with previous vent setting. spo2 is 100% with no respiratory distress is noted. patient is alert, responsive, able to make needs known with writing board. Forgetful at times. Mid line to right upper arm is intact. Noted with rectal tube in place, and is intact. Continues on GT formula of nepro at 40cc/HR and is tolerating well at this time. Current Addendum: 09/10/18 at 0752 by Kavin Goins RN NURSE NOTES: Report received from BALDO Estevez. Patient seen in bed in butler position with previous vent setting. spo2 is 100% with no respiratory distress is noted. patient is alert, responsive, able to make needs known with writing board. Forgetful at times. Mid line to right upper arm is intact. Noted with rectal tube in place, and is intact. Continues on GT formula of nepro at 40cc/HR and is tolerating well at this time. Patient is on wrist restraints, no redness present. Pulse is palpable. Currently awaiting for Dr He to call back in regards to low hgb (abnormal lab results). Bed is in lowest position. call light is within reach. will continue to monitor.
--- NOTE | 2018-09-10 07:41 | NUR ---
HAND-OFF: Report given to TANNER BLAND using SBAR.
[2018-09-10 08:00] VITALS: BP 152/40
[2018-09-10] MEDS: Eliquis 2.5mg tablet GT SCH ×2 (08:14→17:14)
[2018-09-10] MEDS: Minoxidil 2.5mg tab GT SCH ×2 (08:14→20:12)
[2018-09-10] MEDS: Meropenem 500 MG in NS 55 ML IVPB SCH ×2 (08:14→20:13)
[2018-09-10] MEDS: Amiodarone 200mg tab GT SCH (08:14)
[2018-09-10] MEDS: Ocean Nasal Spray 45ml NASAL PRN (08:35)
--- NOTE | 2018-09-10 11:03 | Nephrology Progress Note ---
Assessment/Plan Assessment Seee below Plan ESRD HD q MWF Anemia of CKD , DARRYN high dose. A. 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 with LAE. LVEF 65% . On Eliquis. Post trach + PEG . Referred to [facility]. Pt's son agreeable to [facility]. Referred again. See orders. Still needs extensive Vascular W/U. Hct 20 ------> repeat cbc tomorrow. Trigger for transfusion hct 18 Subjective Subjective More calm (Ativan increased) Objective Objective Last 24 Hour Vital Signs Date Time Temp Pulse Resp B/P (MAP) Pulse Ox O2 Delivery O2 Flow Rate FiO2 09/10/18 08:52 75 16 40 09/10/18 08:14 152/40 09/10/18 08:00 40 09/10/18 08:00 Mechanical Ventilator Mechanical Ventilator 09/10/18 08:00 98.6 75 16 152/40 (77) 100 09/10/18 07:56 74 09/10/18 06:44 78 17 40 09/10/18 05:09 74 12 40 09/10/18 04:00 98.3 75 16 107/55 (72) 100 09/10/18 04:00 Mechanical Ventilator Mechanical Ventilator 09/10/18 04:00 72 09/10/18 04:00 40 09/10/18 03:25 91 18 40 09/10/18 01:21 82 18 40 09/10/18 00:00 40 09/10/18 00:00 81 09/10/18 00:00 98.1 110 16 163/79 (107) 100 09/10/18 00:00 Mechanical Ventilator Mechanical Ventilator 09/09/18 23:12 80 19 40 09/09/18 21:24 73 18 40 09/09/18 20:57 149/79 09/09/18 20:00 97.9 80 18 149/79 (102) 100 09/09/18 20:00 Mechanical Ventilator Mechanical Ventilator 09/09/18 20:00 102 09/09/18 20:00 40 09/09/18 19:36 81 18 40 09/09/18 16:51 78 18 40 09/09/18 16:00 97.7 70 14 133/53 (79) 100 09/09/18 16:00 40 09/09/18 16:00 83 09/09/18 16:00 Mechanical Ventilator Mechanical Ventilator 09/09/18 15:09 82 18 40 09/09/18 13:16 80 18 40 09/09/18 12:00 40 09/09/18 12:00 Mechanical Ventilator Mechanical Ventilator 09/09/18 12:00 97.2 74 20 127/55 (79) 100 09/09/18 12:00 79 09/09/18 11:28 79 18 40 09/09/18 11:25 96.0 Intake and Output 09/09/18 09/10/18 19:00 07:00 Intake Total 590 ml 640 ml Output Total 150 ml 150 ml Balance 440 ml 490 ml Free Water 150 ml 150 ml Tube Feeding 440 ml 440 ml Other 50 ml Stool Total 150 ml 150 ml # Voids 1 Laboratory Tests 09/10/18 03:55: White Blood Count 8.3, Red Blood Count 2.18L, Hemoglobin 6.5*L, Hematocrit 20.9L , Mean Corpuscular Volume 96, Mean Corpuscular Hemoglobin 29.8, Mean Corpuscular Hemoglobin Concent 31.0L, Red Cell Distribution Width 17.7H, Platelet Count 411, Mean Platelet Volume 5.7L, Neutrophils (%) (Auto) , Lymphocytes (%) (Auto) , Monocytes (%) (Auto) , Eosinophils (%) (Auto) , Basophils (%) (Auto) , Neutrophils % (Manual) [Pending], Lymphocytes % (Manual) [Pending], Platelet Estimate [Pending], Platelet Morphology [Pending], Sodium Level 136, Potassium Level 3.7, Chloride Level 99, Carbon Dioxide Level 31, Anion Gap 7, Blood Urea Nitrogen 31H, Creatinine 1.5H, Estimat Glomerular Filtration Rate , Glucose Level 112H, Calcium Level 8.8, Phosphorus Level 3.3, Magnesium Level 2.5H Height (Feet): 5 Height (Inches): 2.00 Weight (Pounds): 121 Objective On vent. Trach clean. Cv IRR/IRR Lungs B ronchi. Abd SNT. BS + PEG. E Rt. foot diabetic ulcers Chase He MD Sep 10, 2018 11:03
[2018-09-10 12:00] VITALS: BP 147/52
--- NOTE | 2018-09-10 14:32 | Infectious Diseases Prog Note ---
Assessment/Plan Assessment/Plan antibiotics : meropenem A 1. e.coli UTI 2. pseudomonas pneumonia 3. leucocytosis improving 4. respiratory failure s/p tracheostomy 5. renal failure 6. 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 pleural effusion P 1. continue iv meropenem 5 more days 2. will follow up cultures Subjective ROS Limited/Unobtainable: Yes Allergies: Coded Allergies: No Known Allergies (Unverified , 07/25/18) Objective Vital Signs Last 24 Hour Vital Signs Date Time Temp Pulse Resp B/P (MAP) Pulse Ox O2 Delivery O2 Flow Rate FiO2 09/10/18 12:55 74 15 40 09/10/18 12:19 85 25 40 09/10/18 12:11 68 16 40 09/10/18 12:00 40 09/10/18 12:00 99.0 74 20 147/52 (83) 100 09/10/18 12:00 Mechanical Ventilator Mechanical Ventilator 09/10/18 11:43 79 09/10/18 08:52 75 16 40 09/10/18 08:14 152/40 09/10/18 08:00 40 09/10/18 08:00 Mechanical Ventilator Mechanical Ventilator 09/10/18 08:00 98.6 75 16 152/40 (77) 100 09/10/18 07:56 74 09/10/18 06:44 78 17 40 09/10/18 05:09 74 12 40 09/10/18 04:00 98.3 75 16 107/55 (72) 100 09/10/18 04:00 Mechanical Ventilator Mechanical Ventilator 09/10/18 04:00 72 09/10/18 04:00 40 09/10/18 03:25 91 18 40 09/10/18 01:21 82 18 40 09/10/18 00:00 40 09/10/18 00:00 81 09/10/18 00:00 98.1 110 16 163/79 (107) 100 09/10/18 00:00 Mechanical Ventilator Mechanical Ventilator 09/09/18 23:12 80 19 40 09/09/18 21:24 73 18 40 09/09/18 20:57 149/79 09/09/18 20:00 97.9 80 18 149/79 (102) 100 09/09/18 20:00 Mechanical Ventilator Mechanical Ventilator 09/09/18 20:00 102 09/09/18 20:00 40 09/09/18 19:36 81 18 40 09/09/18 16:51 78 18 40 09/09/18 16:00 97.7 70 14 133/53 (79) 100 09/09/18 16:00 40 09/09/18 16:00 83 09/09/18 16:00 Mechanical Ventilator Mechanical Ventilator 09/09/18 15:09 82 18 40 Height (Feet): 5 Height (Inches): 2.00 Weight (Pounds): 121 HEENT: status post trach Respiratory/Chest: lungs clear Cardiovascular: normal rate, regular rhythm, no gallop/murmur Abdomen: soft, non tender, other - GT Extremities: no edema, other - right arm PICC Laboratory Tests Test 09/10/18 03:55 White Blood Count 8.3 K/UL (4.8-10.8) Red Blood Count 2.18 M/UL (4.20-5.40) L Hemoglobin 6.5 G/DL (12.0-16.0) *L Hematocrit 20.9 % (37.0-47.0) L Mean Corpuscular Volume 96 FL (80-99) Mean Corpuscular Hemoglobin 29.8 PG (27.0-31.0) Mean Corpuscular Hemoglobin Concent 31.0 G/DL (32.0-36.0) L Red Cell Distribution Width 17.7 % (11.6-14.8) H Platelet Count 411 K/UL (150-450) Mean Platelet Volume 5.7 FL (6.5-10.1) L Neutrophils (%) (Auto) % (45.0-75.0) Lymphocytes (%) (Auto) % (20.0-45.0) Monocytes (%) (Auto) % (1.0-10.0) Eosinophils (%) (Auto) % (0.0-3.0) Basophils (%) (Auto) % (0.0-2.0) Differential Total Cells Counted 100 Neutrophils % (Manual) 78 % (45-75) H Lymphocytes % (Manual) 5 % (20-45) L Monocytes % (Manual) 11 % (1-10) H Eosinophils % (Manual) 4 % (0-3) H Basophils % (Manual) 2 % (0-2) Band Neutrophils 0 % (0-8) Platelet Estimate Adequate Platelet Morphology Normal Hypochromasia 2+ Anisocytosis 2+ Sodium Level 136 MMOL/L (136-145) Potassium Level 3.7 MMOL/L (3.5-5.1) Chloride Level 99 MMOL/L (98-107) Carbon Dioxide Level 31 MMOL/L (21-32) Anion Gap 7 mmol/L (5-15) Blood Urea Nitrogen 31 mg/dL (7-18) H Creatinine 1.5 MG/DL (0.55-1.30) H Estimat Glomerular Filtration Rate mL/min (>60) Glucose Level 112 MG/DL (74-106) H Calcium Level 8.8 MG/DL (8.5-10.1) Phosphorus Level 3.3 MG/DL (2.5-4.9) Magnesium Level 2.5 MG/DL (1.8-2.4) H Current Medications Medications (Trade) Dose Ordered Sig/Renetta Route PRN Reason Start Time Stop Time Status Last Admin Dose Admin Acetaminophen (Tylenol) 650 mg Q6H PRN GT Mild Pain/Temp > 100.5 08/21/18 16:00 09/18/18 15:59 09/08/18 08:49 Acetaminophen/ Hydrocodone Bitart ([place] 5/325) 1 tab Q6H PRN GT For Pain 09/06/18 13:35 09/13/18 13:00 09/10/18 02:47 Amiodarone HCl (Cordarone) 200 mg DAILY GT 08/31/18 09:00 09/24/18 20:59 09/10/18 08:14 Apixaban (Eliquis) 2.5 mg BID GT 08/25/18 18:00 09/24/18 17:59 09/10/18 08:14 Artificial Tears (Akwa-Tears) 1 drop Q4H PRN BOTH EYES Dry Eyes 08/21/18 15:30 09/19/18 15:29 08/30/18 16:53 Chlorhexidine Gluconate (Rylie-Hex 2%) 1 applic DAILY@1999 TOPIC 08/28/18 20:00 09/27/18 19:59 09/09/18 20:57 Collagenase (Santyl) 1 applic DAILY TOPIC 09/05/18 21:00 10/05/18 08:59 09/10/18 08:15 Epoetin Paul (Procrit (for ESRD on dialysis)) 10,000 units WED-WED-WED SUBQ 09/12/18 21:00 10/12/18 20:59 Iron Sucrose 100 mg/Sodium Chloride 60 ml @ 240 mls/hr BEDTIME IV 09/10/18 21:00 09/14/18 21:14 Lansoprazole (Prevacid) 30 mg Q12HR GT 08/25/18 21:00 09/24/18 20:59 09/10/18 08:14 Lorazepam (Ativan) 0.5 mg Q6H PRN ORAL For Anxiety 09/04/18 15:45 09/11/18 15:44 09/10/18 02:47 Meropenem 500 mg/ Sodium Chloride 55 ml @ 110 mls/hr Q12HR IVPB 09/10/18 21:00 09/15/18 20:59 Minoxidil (Loniten) 2.5 mg Q12HR GT 08/25/18 21:00 09/24/18 20:59 09/10/18 08:14 Sodium Chloride ([place] Nasal [place]) 1 spray Q4H PRN NASAL dry nose 08/21/18 14:30 09/19/18 18:29 09/10/18 08:35 Zolpidem Tartrate (Ambien) 5 mg HSPRN PRN ORAL Insomnia 09/09/18 08:00 09/16/18 07:59 09/09/18 20:58 Omid Morfin MD Sep 10, 2018 14:32
--- NOTE | 2018-09-10 15:34 | Pulmonology Progress Note ---
Assessment/Plan Assessment/Plan Pulmonary Progress Note Assessment/Plan Assessment/Plan 1. Hypotension per history , now resolved 2. Sepsis. 3. Atrial fibrillation. 4. Bradycardia. 5. Diabetes mellitus. 6. End-stage renal disease on dialysis. 7. Left lung collapse. s/p bronchoscopy 8. Respiratory failure, acute on chronic s/p trach 9. Dysphagia. 10. Dementia. 11. Anemia 12. Pneumonia 13. bilateral effusion PLAN respiratory care without change full vent support monitor imaging and recommend oxygen taper and monitor needs aspiration precautions keep negative supportive care for now will follow up and recommend for change and monitor as is impression, plan, and exam edited and reviewed in detail care discussed with RN medications/laboratory data/nursing notes reviewed in detail note reviewed and edited care discussed with RN and RT Subjective ROS Limited/Unobtainable: Yes Allergies: Coded Allergies: No Known Allergies (Unverified , 07/25/18) Subjective care noted and reviewed no distress events reviewed and discussed trach in place Objective Vital Signs Noted Objective WDWN NAD intubated/trach reduced breath sounds bilaterally without rhonchi or wheeze [id number] without MRG NABS nontender no HSM no CCE poorly responsive Laboratory Tests 09/08/18 04:00: White Blood Count 12.2H, Red Blood Count 2.49L, Hemoglobin 7.4L, Hematocrit 23.0L, Mean Corpuscular Volume 93, Mean Corpuscular Hemoglobin 29.9, Mean Corpuscular Hemoglobin Concent 32.3, Red Cell Distribution Width 17.4H, Platelet Count 432, Mean Platelet Volume 5.7L, Neutrophils (%) (Auto) , Lymphocytes (%) (Auto) , Monocytes (%) (Auto) , Eosinophils (%) (Auto) , Basophils (%) (Auto) , Differential Total Cells Counted 100, Neutrophils % ( Manual) 78H, Lymphocytes % (Manual) 7L, Monocytes % (Manual) 12H, Eosinophils % (Manual) 1, Basophils % (Manual) 1, Band Neutrophils 1, Platelet Estimate IncreasedH, Platelet Morphology Normal, Hypochromasia 1+, Anisocytosis 1+, Sodium Level 133L, Potassium Level 4.0, Chloride Level 96L, Carbon Dioxide Level 30, Anion Gap 7, Blood Urea Nitrogen 44H, Creatinine 1.7H, Estimat Glomerular Filtration Rate , Glucose Level 110H, Calcium Level 8.9 Current Medications Medications (Trade) Dose Ordered Sig/Renetta Route PRN Reason Start Time Stop Time Status Last Admin Dose Admin Acetaminophen (Tylenol) 650 mg Q6H PRN GT Mild Pain/Temp > 100.5 08/21/18 16:00 09/18/18 15:59 09/08/18 08:49 Acetaminophen/ Hydrocodone Bitart ([place] 5/325) 1 tab Q6H PRN GT For Pain 09/06/18 13:35 09/13/18 13:00 09/08/18 14:34 Amiodarone HCl (Cordarone) 200 mg DAILY GT 08/31/18 09:00 09/24/18 20:59 09/08/18 08:49 Apixaban (Eliquis) 2.5 mg BID GT 08/25/18 18:00 09/24/18 17:59 09/07/18 17:49 Artificial Tears (Akwa-Tears) 1 drop Q4H PRN BOTH EYES Dry Eyes 08/21/18 15:30 09/19/18 15:29 08/30/18 16:53 Chlorhexidine Gluconate (Rylie-Hex 2%) 1 applic DAILY@2000 TOPIC 08/28/18 20:00 09/27/18 19:59 09/07/18 22:59 Collagenase (Santyl) 1 applic DAILY TOPIC 09/05/18 21:00 10/05/18 08:59 09/08/18 08:50 Lansoprazole (Prevacid) 30 mg Q12HR GT 08/25/18 21:00 09/24/18 20:59 09/08/18 08:49 Lorazepam (Ativan) 0.5 mg Q6H PRN ORAL For Anxiety 09/04/18 15:45 09/11/18 15:44 09/08/18 14:34 Meropenem 500 mg/ Sodium Chloride 55 ml @ 110 mls/hr DAILY IVPB 09/07/18 12:00 09/12/18 11:59 09/08/18 08:48 Minoxidil (Loniten) 2.5 mg Q12HR GT 08/25/18 21:00 09/24/18 20:59 09/07/18 22:59 Sodium Chloride ([place] Nasal [place]) 1 spray Q4H PRN NASAL dry nose 08/21/18 14:30 1/21/19 18:29 08/23/18 11:49 Zolpidem Tartrate (Ambien) 5 mg HSPRN PRN GT Insomnia 09/01/18 20:45 09/08/18 20:44 09/07/18 04:20 Subjective ROS Limited/Unobtainable: No Allergies: Coded Allergies: No Known Allergies (Unverified , 07/25/18) Objective Last 24 Hour Vital Signs Date Time Temp Pulse Resp B/P (MAP) Pulse Ox O2 Delivery O2 Flow Rate FiO2 09/10/18 12:55 74 15 40 09/10/18 12:19 85 25 40 09/10/18 12:11 68 16 40 09/10/18 12:00 40 09/10/18 12:00 99.0 74 20 147/52 (83) 100 09/10/18 12:00 Mechanical Ventilator Mechanical Ventilator 09/10/18 11:43 79 09/10/18 08:52 75 16 40 09/10/18 08:14 152/40 09/10/18 08:00 40 09/10/18 08:00 Mechanical Ventilator Mechanical Ventilator 09/10/18 08:00 98.6 75 16 152/40 (77) 100 09/10/18 07:56 74 09/10/18 06:44 78 17 40 09/10/18 05:09 74 12 40 09/10/18 04:00 98.3 75 16 107/55 (72) 100 09/10/18 04:00 Mechanical Ventilator Mechanical Ventilator 09/10/18 04:00 72 09/10/18 04:00 40 09/10/18 03:25 91 18 40 09/10/18 01:21 82 18 40 09/10/18 00:00 40 09/10/18 00:00 81 09/10/18 00:00 98.1 110 16 163/79 (107) 100 09/10/18 00:00 Mechanical Ventilator Mechanical Ventilator 09/09/18 23:12 80 19 40 09/09/18 21:24 73 18 40 09/09/18 20:57 149/79 09/09/18 20:00 97.9 80 18 149/79 (102) 100 09/09/18 20:00 Mechanical Ventilator Mechanical Ventilator 09/09/18 20:00 102 09/09/18 20:00 40 09/09/18 19:36 81 18 40 09/09/18 16:51 78 18 40 09/09/18 16:00 97.7 70 14 133/53 (79) 100 09/09/18 16:00 40 09/09/18 16:00 83 09/09/18 16:00 Mechanical Ventilator Mechanical Ventilator Intake and Output 09/09/18 09/10/18 19:00 07:00 Intake Total 590 ml 680 ml Output Total 150 ml 150 ml Balance 440 ml 530 ml Free Water 150 ml 150 ml Tube Feeding 440 ml 480 ml Other 50 ml Stool Total 150 ml 150 ml # Voids 1 Laboratory Tests 09/10/18 03:55: White Blood Count 8.3, Red Blood Count 2.18L, Hemoglobin 6.5*L, Hematocrit 20.9L , Mean Corpuscular Volume 96, Mean Corpuscular Hemoglobin 29.8, Mean Corpuscular Hemoglobin Concent 31.0L, Red Cell Distribution Width 17.7H, Platelet Count 411, Mean Platelet Volume 5.7L, Neutrophils (%) (Auto) , Lymphocytes (%) (Auto) , Monocytes (%) (Auto) , Eosinophils (%) (Auto) , Basophils (%) (Auto) , Differential Total Cells Counted 100, Neutrophils % ( Manual) 78H, Lymphocytes % (Manual) 5L, Monocytes % (Manual) 11H, Eosinophils % (Manual) 4H, Basophils % (Manual) 2, Band Neutrophils 0, Platelet Estimate Adequate, Platelet Morphology Normal, Hypochromasia 2+, Anisocytosis 2+, Sodium Level 136, Potassium Level 3.7, Chloride Level 99, Carbon Dioxide Level 31, Anion Gap 7, Blood Urea Nitrogen 31H, Creatinine 1.5H, Estimat Glomerular Filtration Rate , Glucose Level 112H, Calcium Level 8.8, Phosphorus Level 3.3, Magnesium Level 2.5H Current Medications Medications (Trade) Dose Ordered Sig/Renetta Route PRN Reason Start Time Stop Time Status Last Admin Dose Admin Acetaminophen (Tylenol) 650 mg Q6H PRN GT Mild Pain/Temp > 100.5 08/21/18 16:00 09/18/18 15:59 09/08/18 08:49 Acetaminophen/ Hydrocodone Bitart ([place] 5/325) 1 tab Q6H PRN GT For Pain 09/06/18 13:35 09/13/18 13:00 09/10/18 02:47 Amiodarone HCl (Cordarone) 200 mg DAILY GT 08/31/18 09:00 09/24/18 20:59 09/10/18 08:14 Apixaban (Eliquis) 2.5 mg BID GT 08/25/18 18:00 09/24/18 17:59 09/10/18 08:14 Artificial Tears ([place]wa-Tears) 1 drop Q4H PRN BOTH EYES Dry Eyes 08/21/18 15:30 09/19/18 15:29 08/30/18 16:53 Chlorhexidine Gluconate (Rylie-Hex 2%) 1 applic DAILY@1999 TOPIC 08/28/18 20:00 09/27/18 19:59 09/09/18 20:57 Collagenase (Santyl) 1 applic DAILY TOPIC 09/05/18 21:00 10/05/18 08:59 09/10/18 08:15 Epoetin Paul (Procrit (for ESRD on dialysis)) 10,000 units WED-WED-WED SUBQ 09/12/18 21:00 10/12/18 20:59 Iron Sucrose 100 mg/Sodium Chloride 60 ml @ 240 mls/hr BEDTIME IV 09/10/18 21:00 09/14/18 21:14 Lansoprazole (Prevacid) 30 mg Q12HR GT 08/25/18 21:00 09/24/18 20:59 09/10/18 08:14 Lorazepam (Ativan) 0.5 mg Q6H PRN ORAL For Anxiety 09/04/18 15:45 09/11/18 15:44 09/10/18 15:28 Meropenem 500 mg/ Sodium Chloride 55 ml @ 110 mls/hr Q12HR IVPB 09/10/18 21:00 09/15/18 20:59 Minoxidil (Loniten) 2.5 mg Q12HR GT 08/25/18 21:00 09/24/18 20:59 09/10/18 08:14 Sodium Chloride ([place] Nasal [place]) 1 spray Q4H PRN NASAL dry nose 08/21/18 14:30 09/19/18 18:29 09/10/18 08:35 Zolpidem Tartrate (Ambien) 5 mg HSPRN PRN ORAL Insomnia 09/09/18 08:00 09/16/18 07:59 09/09/18 20:58 Negro Patel MD Sep 10, 2018 15:34
[2018-09-10 16:00] VITALS: BP 111/45
--- NOTE | 2018-09-10 16:22 | Cardiology Progress Note ---
Assessment/Plan Assessment/Plan 1. Hypotension, resolved 2. Paroxysmal episodes of atrial fibrillation history. 3. Bradycardia secondary to medications, amiodarone possibly. 4. Diabetes mellitus. 5. End-stage renal disease, on hemodialysis. 6. Lung collapse. 7. Respiratory failure, status post intubation. 8. Dysphagia. 9. History of dementia. 10. Pulm htn 11. Pleural effusion 12. cardaic arrest 13. chest wall pain post cpr 14. hyponatremai 15. anemia mostly in sinus now amiod 200 mg daily vent support s/p trach peg done on minoxidl and hold parameter applied on elequis 2.5 mg bid for stroke prevention awaits snf prbc ordred Subjective Subjective on the vent Objective Last 24 Hour Vital Signs Date Time Temp Pulse Resp B/P (MAP) Pulse Ox O2 Delivery O2 Flow Rate FiO2 09/10/18 15:22 81 14 40 09/10/18 12:55 74 15 40 09/10/18 12:19 85 25 40 09/10/18 12:11 68 16 40 09/10/18 12:00 40 09/10/18 12:00 99.0 74 20 147/52 (83) 100 09/10/18 12:00 Mechanical Ventilator Mechanical Ventilator 09/10/18 11:43 79 09/10/18 08:52 75 16 40 09/10/18 08:14 152/40 09/10/18 08:00 40 09/10/18 08:00 Mechanical Ventilator Mechanical Ventilator 09/10/18 08:00 98.6 75 16 152/40 (77) 100 09/10/18 07:56 74 09/10/18 06:44 78 17 40 09/10/18 05:09 74 12 40 09/10/18 04:00 98.3 75 16 107/55 (72) 100 09/10/18 04:00 Mechanical Ventilator Mechanical Ventilator 09/10/18 04:00 72 09/10/18 04:00 40 09/10/18 03:25 91 18 40 09/10/18 01:21 82 18 40 09/10/18 00:00 40 09/10/18 00:00 81 09/10/18 00:00 98.1 110 16 163/79 (107) 100 09/10/18 00:00 Mechanical Ventilator Mechanical Ventilator 09/09/18 23:12 80 19 40 09/09/18 21:24 73 18 40 09/09/18 20:57 149/79 09/09/18 20:00 97.9 80 18 149/79 (102) 100 09/09/18 20:00 Mechanical Ventilator Mechanical Ventilator 09/09/18 20:00 102 09/09/18 20:00 40 09/09/18 19:36 81 18 40 09/09/18 16:51 78 18 40 General Appearance: no apparent distress, on vent, patient on isolation Intake and Output 09/09/18 09/10/18 19:00 07:00 Intake Total 590 ml 680 ml Output Total 150 ml 150 ml Balance 440 ml 530 ml Free Water 150 ml 150 ml Tube Feeding 440 ml 480 ml Other 50 ml Stool Total 150 ml 150 ml # Voids 1 Laboratory Tests Test 09/10/18 03:55 White Blood Count 8.3 K/UL (4.8-10.8) Red Blood Count 2.18 M/UL (4.20-5.40) L Hemoglobin 6.5 G/DL (12.0-16.0) *L Hematocrit 20.9 % (37.0-47.0) L Mean Corpuscular Volume 96 FL (80-99) Mean Corpuscular Hemoglobin 29.8 PG (27.0-31.0) Mean Corpuscular Hemoglobin Concent 31.0 G/DL (32.0-36.0) L Red Cell Distribution Width 17.7 % (11.6-14.8) H Platelet Count 411 K/UL (150-450) Mean Platelet Volume 5.7 FL (6.5-10.1) L Neutrophils (%) (Auto) % (45.0-75.0) Lymphocytes (%) (Auto) % (20.0-45.0) Monocytes (%) (Auto) % (1.0-10.0) Eosinophils (%) (Auto) % (0.0-3.0) Basophils (%) (Auto) % (0.0-2.0) Differential Total Cells Counted 100 Neutrophils % (Manual) 78 % (45-75) H Lymphocytes % (Manual) 5 % (20-45) L Monocytes % (Manual) 11 % (1-10) H Eosinophils % (Manual) 4 % (0-3) H Basophils % (Manual) 2 % (0-2) Band Neutrophils 0 % (0-8) Platelet Estimate Adequate Platelet Morphology Normal Hypochromasia 2+ Anisocytosis 2+ Sodium Level 136 MMOL/L (136-145) Potassium Level 3.7 MMOL/L (3.5-5.1) Chloride Level 99 MMOL/L (98-107) Carbon Dioxide Level 31 MMOL/L (21-32) Anion Gap 7 mmol/L (5-15) Blood Urea Nitrogen 31 mg/dL (7-18) H Creatinine 1.5 MG/DL (0.55-1.30) H Estimat Glomerular Filtration Rate mL/min (>60) Glucose Level 112 MG/DL (74-106) H Calcium Level 8.8 MG/DL (8.5-10.1) Phosphorus Level 3.3 MG/DL (2.5-4.9) Magnesium Level 2.5 MG/DL (1.8-2.4) H Angelo Butler MD Sep 10, 2018 16:21
--- NOTE | 2018-09-10 18:30 | NUR ---
NURSE NOTES: Patient's son Colby is by bed side at the moment. he came to visit around 1500, while he was here at the bed side, tried to release the restraint, but patient attempted to pull out her trach and tubing. Wrist restraint is put back on to the patient after patient attempted to pull out tubings. Patient became agitated. PRN Ativan was administered as ordered. Continues with safety measures. Will continue to monitor.
--- NOTE | 2018-09-10 18:44 | NUR ---
NURSE NOTES: Patient restless at times,frequent visits done with emotional support,on restraint due to pulling device,restraints off when at her bedside-patient thankful,happy when restarints off,can not be taken off she pulls tracheostomy,suction via tracheostomy small secretions,oral care skin care done,G tube care,
--- NOTE | 2018-09-10 19:14 | NUR ---
HAND-OFF: Report given to BALDO Stevenson .
--- NOTE | 2018-09-10 19:20 | NUR ---
NURSE NOTES: Report received from Mayra RN. Patient seen in bed in butler position with vent setting of AC 8, 450tv, 40% FiO2 and peep of 5. spo2 is 100% with no respiratory distress is noted. patient is alert, responsive, but also Forgetful at times. Mid line to right upper arm is intact. Noted to have rectal tube in place, and is intact. Continues on GT formula of nepro at 40cc/HR and is tolerating well at this time. Patient is on bilateral wrist restraints, no redness present. Pulse is palpable. Bed is in lowest position. call light is within reach. will continue to monitor.
[2018-09-10 20:00] VITALS: BP 120/73
--- NOTE | 2018-09-10 20:00 | NUR ---
NURSE NOTES: Patient repositioned, oral care given and suctioned, no acute distress at this time, patients remains on bilateral wrist restraints, pulses noted and skin is intact.
[2018-09-10] MEDS: Zolpidem 5mg tab ORAL PRN (20:11)
[2018-09-10] MEDS: Dyna-Hex 2% Top Sol 2oz TOPIC SCH (20:12)
[2018-09-10] MEDS: Iron Sucrose 100 MG in NS 55 ML IV SCH (20:12)
--- NOTE | 2018-09-10 21:00 | NUR ---
NURSE NOTES: Midline dressing changed. Wound dressings changed and pictures taken.
--- NOTE | 2018-09-10 22:00 | NUR ---
NURSE NOTES: Repositioned patient, no acute distress at this time, vitals also remain stable.
[2018-09-11] VITALS: BP 100/50
--- NOTE | 2018-09-11 | NUR ---
NURSE NOTES: Patient repositioned, no acute distress. 72 hour restraint renewed. Next 72hr renewal will be 1/16 at 0000. Patient sleeping at this time, HR is in Afib 110.
--- NOTE | 2018-09-11 02:00 | NUR ---
NURSE NOTES: Repositioned, suctioned, no acute distress at this time.
[2018-09-11 04:00] VITALS: BP 146/80
[2018-09-11 05:41] LABS: HEMATOCRIT 23.3 % (37.0-47.0); HEMOGLOBIN 7.4 G/DL (12.0-16.0); MEAN CORPUSCULAR VOLUME 96 FL (80-99); PLATELET COUNT 458 K/UL (150-450); RED BLOOD COUNT 2.43 M/UL (4.20-5.40); RED CELL DISTRIBUTION WIDTH 17.8 % (11.6-14.8); WHITE BLOOD COUNT 9.3 K/UL (4.8-10.8)
[2018-09-11 05:58] LABS: ANION GAP 6 mmol/L (5-15); BLOOD UREA NITROGEN 51 mg/dL (7-18); CALCIUM 9.7 MG/DL (8.5-10.1); CARBON DIOXIDE 31 MMOL/L (21-32); CHLORIDE 97 MMOL/L (98-107); CREATININE 1.9 MG/DL (0.55-1.30); POTASSIUM 4.5 MMOL/L (3.5-5.1); SODIUM 134 MMOL/L (136-145)
--- NOTE | 2018-09-11 06:00 | NUR ---
NURSE NOTES: Repositioned patient, vitals remains stable, labs drawned and sent.
--- NOTE | 2018-09-11 07:20 | NUR ---
NURSE NOTES: Received report BALDO Howard patient awake likes restraints off,stayed patient off restraints,on overlay mattress,G tube feeding,ventilator ,head elevated,aspiration precaution
[2018-09-11 08:46] VITALS: BP 125/48
[2018-09-11] MEDS: Eliquis 2.5mg tablet GT SCH ×2 (08:56→17:21)
[2018-09-11] MEDS: Amiodarone 200mg tab GT SCH (08:56)
[2018-09-11] MEDS: Meropenem 500 MG in NS 55 ML IVPB SCH (08:56)
[2018-09-11] MEDS: Minoxidil 2.5mg tab GT SCH ×2 (08:56→20:54)
--- NOTE | 2018-09-11 09:31 | Infectious Diseases Prog Note ---
Assessment/Plan Assessment/Plan A: leukocytosis UTI with ESBL E. Coli Cellulitis of R leg, osteomyelitis treated Hypercapnic respiratory failure ESRD on HD DM Anemia Dementia PVD R pleural effusion Mucous plug s/o Cardiac arrest Multiple Pressure ulcers P; continue Meropenem X 4 days Subjective ROS Limited/Unobtainable: Yes Constitutional: Reports: no symptoms Neurologic: Reports: confusion, other - on restraint Allergies: Coded Allergies: No Known Allergies (Unverified , 07/25/18) Objective Vital Signs Last 24 Hour Vital Signs Date Time Temp Pulse Resp B/P (MAP) Pulse Ox O2 Delivery O2 Flow Rate FiO2 09/11/18 08:58 78 16 40 09/11/18 08:56 125/48 09/11/18 08:46 97.9 69 20 125/48 (73) 100 09/11/18 08:30 Mechanical Ventilator Mechanical Ventilator 09/11/18 08:00 40 09/11/18 08:00 91 09/11/18 06:49 86 16 40 09/11/18 05:11 83 15 40 09/11/18 04:00 Mechanical Ventilator Mechanical Ventilator 09/11/18 04:00 115 09/11/18 04:00 40 09/11/18 04:00 97.7 88 17 146/80 (102) 100 09/11/18 03:23 70 16 40 09/11/18 01:37 74 16 40 09/11/18 00:00 40 09/11/18 00:00 98.6 80 16 100/50 (67) 100 09/11/18 00:00 114 09/11/18 00:00 Mechanical Ventilator Mechanical Ventilator 09/10/18 23:20 80 15 40 09/10/18 21:10 75 13 40 09/10/18 20:12 111/45 09/10/18 20:00 98.4 90 16 120/73 (89) 100 09/10/18 20:00 89 09/10/18 20:00 40 09/10/18 20:00 Mechanical Ventilator Mechanical Ventilator 09/10/18 19:05 95 15 40 09/10/18 17:23 78 14 40 09/10/18 16:00 40 09/10/18 16:00 Mechanical Ventilator Mechanical Ventilator 09/10/18 16:00 99.3 80 20 111/45 (67) 96 09/10/18 15:33 83 09/10/18 15:22 81 14 40 09/10/18 12:55 74 15 40 09/10/18 12:19 85 25 40 09/10/18 12:11 68 16 40 09/10/18 12:00 40 09/10/18 12:00 99.0 74 20 147/52 (83) 100 09/10/18 12:00 Mechanical Ventilator Mechanical Ventilator 09/10/18 11:43 79 Height (Feet): 5 Height (Inches): 2.00 Weight (Pounds): 121 General Appearance: no acute distress HEENT: status post trach Respiratory/Chest: lungs clear, other - on ventilator Cardiovascular: normal rate, other - R arm PICC line Abdomen: soft, non tender, other - GT feeding Extremities: no edema Skin: ulcers Neurologic/Psychiatric: alert, responsive, disoriented Laboratory Tests Test 09/11/18 03:55 White Blood Count 9.3 K/UL (4.8-10.8) Red Blood Count 2.43 M/UL (4.20-5.40) L Hemoglobin 7.4 G/DL (12.0-16.0) L Hematocrit 23.3 % (37.0-47.0) L Mean Corpuscular Volume 96 FL (80-99) Mean Corpuscular Hemoglobin 30.4 PG (27.0-31.0) Mean Corpuscular Hemoglobin Concent 31.6 G/DL (32.0-36.0) L Red Cell Distribution Width 17.8 % (11.6-14.8) H Platelet Count 458 K/UL (150-450) H Mean Platelet Volume 5.9 FL (6.5-10.1) L Neutrophils (%) (Auto) % (45.0-75.0) Lymphocytes (%) (Auto) % (20.0-45.0) Monocytes (%) (Auto) % (1.0-10.0) Eosinophils (%) (Auto) % (0.0-3.0) Basophils (%) (Auto) % (0.0-2.0) Differential Total Cells Counted 100 Neutrophils % (Manual) 83 % (45-75) H Lymphocytes % (Manual) 6 % (20-45) L Monocytes % (Manual) 9 % (1-10) Eosinophils % (Manual) 1 % (0-3) Basophils % (Manual) 1 % (0-2) Band Neutrophils 0 % (0-8) Platelet Estimate Adequate Platelet Morphology Normal Hypochromasia 1+ Anisocytosis 1+ Sodium Level 134 MMOL/L (136-145) L Potassium Level 4.5 MMOL/L (3.5-5.1) Chloride Level 97 MMOL/L (98-107) L Carbon Dioxide Level 31 MMOL/L (21-32) Anion Gap 6 mmol/L (5-15) Blood Urea Nitrogen 51 mg/dL (7-18) H Creatinine 1.9 MG/DL (0.55-1.30) H Estimat Glomerular Filtration Rate mL/min (>60) Glucose Level 123 MG/DL (74-106) H Calcium Level 9.7 MG/DL (8.5-10.1) Current Medications Medications (Trade) Dose Ordered Sig/Renetta Route PRN Reason Start Time Stop Time Status Last Admin Dose Admin Acetaminophen (Tylenol) 650 mg Q6H PRN GT Mild Pain/Temp > 100.5 08/21/18 16:00 09/18/18 15:59 09/08/18 08:49 Acetaminophen/ Hydrocodone Bitart ([place] 5/325) 1 tab Q6H PRN GT For Pain 09/06/18 13:35 09/13/18 13:00 09/10/18 17:27 Amiodarone HCl (Cordarone) 200 mg DAILY GT 08/31/18 09:00 09/24/18 20:59 09/11/18 08:56 Apixaban (Eliquis) 2.5 mg BID GT 08/25/18 18:00 09/24/18 17:59 09/11/18 08:56 Artificial Tears (Akwa-Tears) 1 drop Q4H PRN BOTH EYES Dry Eyes 08/21/18 15:30 09/19/18 15:29 08/30/18 16:53 Chlorhexidine Gluconate (Rylie-Hex 2%) 1 applic DAILY@1999 TOPIC 08/28/18 20:00 09/27/18 19:59 09/10/18 20:12 Collagenase (Santyl) 1 applic DAILY TOPIC 09/05/18 21:00 10/05/18 08:59 09/10/18 08:15 Epoetin Paul (Procrit (for ESRD on dialysis)) 10,000 units MON-WED-WED SUBQ 09/12/18 21:00 10/12/18 20:59 Iron Sucrose 100 mg/Sodium Chloride 60 ml @ 240 mls/hr BEDTIME IV 09/10/18 21:00 09/14/18 21:14 09/10/18 20:12 Lansoprazole (Prevacid) 30 mg Q12HR GT 08/25/18 21:00 09/24/18 20:59 09/11/18 08:56 Lorazepam (Ativan) 0.5 mg Q6H PRN ORAL For Anxiety 09/04/18 15:45 09/11/18 15:44 09/10/18 15:28 Meropenem 500 mg/ Sodium Chloride 55 ml @ 110 mls/hr Q12HR IVPB 09/10/18 21:00 09/15/18 20:59 09/11/18 08:56 Minoxidil (Loniten) 2.5 mg Q12HR GT 08/25/18 21:00 09/24/18 20:59 09/11/18 08:56 Sodium Chloride ([place] Nasal [place]) 1 spray Q4H PRN NASAL dry nose 08/21/18 14:30 09/19/18 18:29 09/10/18 08:35 Zolpidem Tartrate (Ambien) 5 mg HSPRN PRN ORAL Insomnia 09/09/18 08:00 09/16/18 07:59 09/10/18 20:11 Freedom Randolph MD Sep 11, 2018 09:31
--- NOTE | 2018-09-11 10:16 | Nephrology Progress Note ---
Assessment/Plan Assessment Seee below Plan ESRD HD q MWF Anemia of CKD , DARRYN high dose. A. 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 with LAE. LVEF 65% . On Eliquis. Post trach + PEG . Referred to [facility]. Pt's son agreeable to [facility]. Referred again. See orders. Still needs extensive Vascular W/U. Hct 23.3 . No need for transfusion on HD 09/12/18. Subjective Subjective More calm (Ativan increased) Objective Objective Last 24 Hour Vital Signs Date Time Temp Pulse Resp B/P (MAP) Pulse Ox O2 Delivery O2 Flow Rate FiO2 09/11/18 08:58 78 16 40 09/11/18 08:56 125/48 09/11/18 08:46 97.9 69 20 125/48 (73) 100 09/11/18 08:30 Mechanical Ventilator Mechanical Ventilator 09/11/18 08:00 40 09/11/18 08:00 91 09/11/18 06:49 86 16 40 09/11/18 05:11 83 15 40 09/11/18 04:00 Mechanical Ventilator Mechanical Ventilator 09/11/18 04:00 115 09/11/18 04:00 40 09/11/18 04:00 97.7 88 17 146/80 (102) 100 09/11/18 03:23 70 16 40 09/11/18 01:37 74 16 40 09/11/18 00:00 40 09/11/18 00:00 98.6 80 16 100/50 (67) 100 09/11/18 00:00 114 09/11/18 00:00 Mechanical Ventilator Mechanical Ventilator 09/10/18 23:20 80 15 40 09/10/18 21:10 75 13 40 09/10/18 20:12 111/45 09/10/18 20:00 98.4 90 16 120/73 (89) 100 09/10/18 20:00 89 09/10/18 20:00 40 09/10/18 20:00 Mechanical Ventilator Mechanical Ventilator 09/10/18 19:05 95 15 40 09/10/18 17:23 78 14 40 09/10/18 16:00 40 09/10/18 16:00 Mechanical Ventilator Mechanical Ventilator 09/10/18 16:00 99.3 80 20 111/45 (67) 96 09/10/18 15:33 83 09/10/18 15:22 81 14 40 09/10/18 12:55 74 15 40 09/10/18 12:19 85 25 40 09/10/18 12:11 68 16 40 09/10/18 12:00 40 09/10/18 12:00 99.0 74 20 147/52 (83) 100 09/10/18 12:00 Mechanical Ventilator Mechanical Ventilator 09/10/18 11:43 79 Intake and Output 09/10/18 09/11/18 19:00 07:00 Intake Total 975 ml 525 ml Output Total 150 ml Balance 825 ml 525 ml Free Water 440 ml 50 ml IV Total 55 ml 115 ml Tube Feeding 480 ml 360 ml Stool Total 150 ml Laboratory Tests 09/11/18 03:55: White Blood Count 9.3, Red Blood Count 2.43L, Hemoglobin 7.4L, Hematocrit 23.3L , Mean Corpuscular Volume 96, Mean Corpuscular Hemoglobin 30.4, Mean Corpuscular Hemoglobin Concent 31.6L, Red Cell Distribution Width 17.8H, Platelet Count 458H, Mean Platelet Volume 5.9L, Neutrophils (%) (Auto) , Lymphocytes (%) (Auto) , Monocytes (%) (Auto) , Eosinophils (%) (Auto) , Basophils (%) (Auto) , Differential Total Cells Counted 100, Neutrophils % ( Manual) 83H, Lymphocytes % (Manual) 6L, Monocytes % (Manual) 9, Eosinophils % ( Manual) 1, Basophils % (Manual) 1, Band Neutrophils 0, Platelet Estimate Adequate, Platelet Morphology Normal, Hypochromasia 1+, Anisocytosis 1+, Sodium Level 134L, Potassium Level 4.5, Chloride Level 97L, Carbon Dioxide Level 31, Anion Gap 6, Blood Urea Nitrogen 51H, Creatinine 1.9H, Estimat Glomerular Filtration Rate , Glucose Level 123H, Calcium Level 9.7 Height (Feet): 5 Height (Inches): 2.00 Weight (Pounds): 121 Objective On vent. Trach clean. Cv IRR/IRR Lungs B ronchi. Abd SNT. BS + PEG. E Rt. foot diabetic ulcers Chase He MD Sep 11, 2018 10:16
[2018-09-11 12:00] VITALS: BP 140/68
--- NOTE | 2018-09-11 14:38 | Cardiology Progress Note ---
Assessment/Plan Assessment/Plan 1. Hypotension, resolved 2. Paroxysmal episodes of atrial fibrillation history. 3. Bradycardia secondary to medications, amiodarone possibly. 4. Diabetes mellitus. 5. End-stage renal disease, on hemodialysis. 6. Lung collapse. 7. Respiratory failure, status post intubation. 8. Dysphagia. 9. History of dementia. 10. Pulm htn 11. Pleural effusion 12. cardaic arrest 13. chest wall pain post cpr 14. hyponatremai 15. anemia mostly in sinus now amiod 200 mg daily vent support s/p trach peg done on minoxidl and hold parameter applied on elequis 2.5 mg bid for stroke prevention awaits snf s/p prbc tx Subjective ROS Limited/Unobtainable: Yes Subjective on the vent Objective Last 24 Hour Vital Signs Date Time Temp Pulse Resp B/P (MAP) Pulse Ox O2 Delivery O2 Flow Rate FiO2 09/11/18 12:48 94 17 40 09/11/18 12:00 117 09/11/18 10:55 108 20 40 09/11/18 08:58 78 16 40 09/11/18 08:56 125/48 09/11/18 08:46 97.9 69 20 125/48 (73) 100 09/11/18 08:30 Mechanical Ventilator Mechanical Ventilator 09/11/18 08:00 40 09/11/18 08:00 91 09/11/18 06:49 86 16 40 09/11/18 05:11 83 15 40 09/11/18 04:00 Mechanical Ventilator Mechanical Ventilator 09/11/18 04:00 115 09/11/18 04:00 40 09/11/18 04:00 97.7 88 17 146/80 (102) 100 09/11/18 03:23 70 16 40 09/11/18 01:37 74 16 40 09/11/18 00:00 40 09/11/18 00:00 98.6 80 16 100/50 (67) 100 09/11/18 00:00 114 09/11/18 00:00 Mechanical Ventilator Mechanical Ventilator 09/10/18 23:20 80 15 40 09/10/18 21:10 75 13 40 09/10/18 20:12 111/45 09/10/18 20:00 98.4 90 16 120/73 (89) 100 09/10/18 20:00 89 09/10/18 20:00 40 09/10/18 20:00 Mechanical Ventilator Mechanical Ventilator 09/10/18 19:05 95 15 40 09/10/18 17:23 78 14 40 09/10/18 16:00 40 09/10/18 16:00 Mechanical Ventilator Mechanical Ventilator 09/10/18 16:00 99.3 80 20 111/45 (67) 96 09/10/18 15:33 83 09/10/18 15:22 81 14 40 General Appearance: alert, on vent, patient on isolation Intake and Output 09/10/18 09/11/18 19:00 07:00 Intake Total 975 ml 525 ml Output Total 150 ml Balance 825 ml 525 ml Free Water 440 ml 50 ml IV Total 55 ml 115 ml Tube Feeding 480 ml 360 ml Stool Total 150 ml Laboratory Tests Test 09/11/18 03:55 White Blood Count 9.3 K/UL (4.8-10.8) Red Blood Count 2.43 M/UL (4.20-5.40) L Hemoglobin 7.4 G/DL (12.0-16.0) L Hematocrit 23.3 % (37.0-47.0) L Mean Corpuscular Volume 96 FL (80-99) Mean Corpuscular Hemoglobin 30.4 PG (27.0-31.0) Mean Corpuscular Hemoglobin Concent 31.6 G/DL (32.0-36.0) L Red Cell Distribution Width 17.8 % (11.6-14.8) H Platelet Count 458 K/UL (150-450) H Mean Platelet Volume 5.9 FL (6.5-10.1) L Neutrophils (%) (Auto) % (45.0-75.0) Lymphocytes (%) (Auto) % (20.0-45.0) Monocytes (%) (Auto) % (1.0-10.0) Eosinophils (%) (Auto) % (0.0-3.0) Basophils (%) (Auto) % (0.0-2.0) Differential Total Cells Counted 100 Neutrophils % (Manual) 83 % (45-75) H Lymphocytes % (Manual) 6 % (20-45) L Monocytes % (Manual) 9 % (1-10) Eosinophils % (Manual) 1 % (0-3) Basophils % (Manual) 1 % (0-2) Band Neutrophils 0 % (0-8) Platelet Estimate Adequate Platelet Morphology Normal Hypochromasia 1+ Anisocytosis 1+ Sodium Level 134 MMOL/L (136-145) L Potassium Level 4.5 MMOL/L (3.5-5.1) Chloride Level 97 MMOL/L (98-107) L Carbon Dioxide Level 31 MMOL/L (21-32) Anion Gap 6 mmol/L (5-15) Blood Urea Nitrogen 51 mg/dL (7-18) H Creatinine 1.9 MG/DL (0.55-1.30) H Estimat Glomerular Filtration Rate mL/min (>60) Glucose Level 123 MG/DL (74-106) H Calcium Level 9.7 MG/DL (8.5-10.1) Angelo Butler MD Sep 11, 2018 14:38
--- NOTE | 2018-09-11 15:08 | NUR ---
CASE MANAGEMENT: REVIEW 09/10/2018 SI: ESRD ON HD TRACHEOSTOMY 08/15 PEG PLACEMENT 08/17 T 98.4 HR 90 RR 16 B/P 120/73 SATS 100% ON MECH VENT FIo2 40 HGB 6.5 HCT 20.9 BUN 31 CR 1.5 GLU 112 MG 2.5 IS: MEROPENEM IV QD AMIODARONE GT QD MINOXIDIL GT Q12HR ELEQUIS GT BID GT FEEDING NEPRO @ 40ML/HR HD PRN STEP DOWN UNIT STATUS DCP: PATIENT IS FROM [facility]. PATIENT REFERRED TO [facility]. [facility] WILL NOT ACCEPT PATIENT WITHOUT CHAIR TIME AT DIALYSIS CENTER. PATIENT REFERRED TO [facility] AWAITING CHAIR TIME AT DIALYSIS CENTER. 09/11/2018 SI: ESRD ON HD TRACHEOSTOMY 08/15 PEG PLACEMENT 08/17 T 97.9 HR 69 RR 20 B/P 125/48 SATS 100% ON MECH VENT FiO2 40 HGB 7.4 HCT 23.3 NA 134 CL 97 BUN 51 CR 1.9 GLU 123 IS: MEROPENEM IV QD AMIODARONE GT QD MINOXIDIL GT Q12HR ELEQUIS GT BID GT FEEDI
[2018-09-11 16:00] VITALS: BP 135/61
[2018-09-11] MEDS ORDERED: NS 275ml ONE (16:32)
[2018-09-11] MEDS ORDERED: Tubing IV Secondary IV ONE (16:32)
[2018-09-11] MEDS: Norco 5mg/325mg tab GT PRN (17:32)
--- NOTE | 2018-09-11 18:38 | Pulmonology Progress Note ---
Assessment/Plan Assessment/Plan Pulmonary Progress Note Assessment/Plan Assessment/Plan 1. Hypotension per history , now resolved 2. Sepsis. 3. Atrial fibrillation. 4. Bradycardia. 5. Diabetes mellitus. 6. End-stage renal disease on dialysis. 7. Left lung collapse. s/p bronchoscopy 8. Respiratory failure, acute on chronic s/p trach 9. Dysphagia. 10. Dementia. 11. Anemia 12. Pneumonia 13. bilateral effusion PLAN respiratory care without change full vent support monitor imaging and recommend oxygen taper and monitor needs aspiration precautions keep negative supportive care for now will follow up and recommend for change and monitor as is impression, plan, and exam edited and reviewed in detail care discussed with RN medications/laboratory data/nursing notes reviewed in detail note reviewed and edited care discussed with RN and RT Subjective ROS Limited/Unobtainable: Yes Allergies: Coded Allergies: No Known Allergies (Unverified , 07/25/18) Subjective care noted and reviewed no distress events reviewed and discussed trach in place Objective Vital Signs Noted Objective WDWN NAD intubated/trach reduced breath sounds bilaterally without rhonchi or wheeze [id number] without MRG NABS nontender no HSM no CCE poorly responsive Laboratory Tests 09/08/18 04:00: White Blood Count 12.2H, Red Blood Count 2.49L, Hemoglobin 7.4L, Hematocrit 23.0L, Mean Corpuscular Volume 93, Mean Corpuscular Hemoglobin 29.9, Mean Corpuscular Hemoglobin Concent 32.3, Red Cell Distribution Width 17.4H, Platelet Count 432, Mean Platelet Volume 5.7L, Neutrophils (%) (Auto) , Lymphocytes (%) (Auto) , Monocytes (%) (Auto) , Eosinophils (%) (Auto) , Basophils (%) (Auto) , Differential Total Cells Counted 100, Neutrophils % ( Manual) 78H, Lymphocytes % (Manual) 7L, Monocytes % (Manual) 12H, Eosinophils % (Manual) 1, Basophils % (Manual) 1, Band Neutrophils 1, Platelet Estimate IncreasedH, Platelet Morphology Normal, Hypochromasia 1+, Anisocytosis 1+, Sodium Level 133L, Potassium Level 4.0, Chloride Level 96L, Carbon Dioxide Level 30, Anion Gap 7, Blood Urea Nitrogen 44H, Creatinine 1.7H, Estimat Glomerular Filtration Rate , Glucose Level 110H, Calcium Level 8.9 Current Medications Medications (Trade) Dose Ordered Sig/Renetta Route PRN Reason Start Time Stop Time Status Last Admin Dose Admin Acetaminophen (Tylenol) 650 mg Q6H PRN GT Mild Pain/Temp > 100.5 08/21/18 16:00 09/18/18 15:59 09/08/18 08:49 Acetaminophen/ Hydrocodone Bitart ([place] 5/325) 1 tab Q6H PRN GT For Pain 09/06/18 13:35 09/13/18 13:00 09/08/18 14:34 Amiodarone HCl (Cordarone) 200 mg DAILY GT 08/31/18 09:00 09/24/18 20:59 09/08/18 08:49 Apixaban (Eliquis) 2.5 mg BID GT 08/25/18 18:00 09/24/18 17:59 09/07/18 17:49 Artificial Tears (Akwa-Tears) 1 drop Q4H PRN BOTH EYES Dry Eyes 08/21/18 15:30 09/19/18 15:29 08/30/18 16:53 Chlorhexidine Gluconate (Rylie-Hex 2%) 1 applic DAILY@2000 TOPIC 08/28/18 20:00 09/27/18 19:59 09/07/18 22:59 Collagenase (Santyl) 1 applic DAILY TOPIC 09/05/18 21:00 10/05/18 08:59 09/08/18 08:50 Lansoprazole (Prevacid) 30 mg Q12HR GT 08/25/18 21:00 09/24/18 20:59 09/08/18 08:49 Lorazepam (Ativan) 0.5 mg Q6H PRN ORAL For Anxiety 09/04/18 15:45 09/11/18 15:44 09/08/18 14:34 Meropenem 500 mg/ Sodium Chloride 55 ml @ 110 mls/hr DAILY IVPB 09/07/18 12:00 09/12/18 11:59 09/08/18 08:48 Minoxidil (Loniten) 2.5 mg Q12HR GT 08/25/18 21:00 09/24/18 20:59 09/07/18 22:59 Sodium Chloride ([place]raham Nasal [place]) 1 spray Q4H PRN NASAL dry nose 08/21/18 14:30 1/21/19 18:29 08/23/18 11:49 Zolpidem Tartrate (Ambien) 5 mg HSPRN PRN GT Insomnia 09/01/18 20:45 09/08/18 20:44 09/07/18 04:20 Subjective ROS Limited/Unobtainable: No Allergies: Coded Allergies: No Known Allergies (Unverified , 07/25/18) Objective Last 24 Hour Vital Signs Date Time Temp Pulse Resp B/P (MAP) Pulse Ox O2 Delivery O2 Flow Rate FiO2 09/11/18 18:00 40 09/11/18 16:48 87 17 40 09/11/18 16:10 Mechanical Ventilator Mechanical Ventilator 09/11/18 16:07 88 19 40 09/11/18 16:00 95 09/11/18 16:00 40 09/11/18 16:00 97.7 81 20 135/61 (85) 100 09/11/18 12:48 94 17 40 09/11/18 12:00 117 09/11/18 12:00 97.9 110 20 140/68 (92) 100 09/11/18 12:00 Mechanical Ventilator Mechanical Ventilator 09/11/18 12:00 40 09/11/18 10:55 108 20 40 09/11/18 08:58 78 16 40 09/11/18 08:56 125/48 09/11/18 08:46 97.9 69 20 125/48 (73) 100 09/11/18 08:30 Mechanical Ventilator Mechanical Ventilator 09/11/18 08:00 40 09/11/18 08:00 91 09/11/18 06:49 86 16 40 09/11/18 05:11 83 15 40 09/11/18 04:00 Mechanical Ventilator Mechanical Ventilator 09/11/18 04:00 115 09/11/18 04:00 40 09/11/18 04:00 97.7 88 17 146/80 (102) 100 09/11/18 03:23 70 16 40 09/11/18 01:37 74 16 40 09/11/18 00:00 40 09/11/18 00:00 98.6 80 16 100/50 (67) 100 09/11/18 00:00 114 09/11/18 00:00 Mechanical Ventilator Mechanical Ventilator 09/10/18 23:20 80 15 40 09/10/18 21:10 75 13 40 09/10/18 20:12 111/45 09/10/18 20:00 98.4 90 16 120/73 (89) 100 09/10/18 20:00 89 09/10/18 20:00 40 09/10/18 20:00 Mechanical Ventilator Mechanical Ventilator 09/10/18 19:05 95 15 40 Intake and Output 09/10/18 09/11/18 19:00 07:00 Intake Total 975 ml 565 ml Output Total 150 ml Balance 825 ml 565 ml Free Water 440 ml 50 ml IV Total 55 ml 115 ml Tube Feeding 480 ml 400 ml Stool Total 150 ml Laboratory Tests 09/11/18 03:55: White Blood Count 9.3, Red Blood Count 2.43L, Hemoglobin 7.4L, Hematocrit 23.3L , Mean Corpuscular Volume 96, Mean Corpuscular Hemoglobin 30.4, Mean Corpuscular Hemoglobin Concent 31.6L, Red Cell Distribution Width 17.8H, Platelet Count 458H, Mean Platelet Volume 5.9L, Neutrophils (%) (Auto) , Lymphocytes (%) (Auto) , Monocytes (%) (Auto) , Eosinophils (%) (Auto) , Basophils (%) (Auto) , Differential Total Cells Counted 100, Neutrophils % ( Manual) 83H, Lymphocytes % (Manual) 6L, Monocytes % (Manual) 9, Eosinophils % ( Manual) 1, Basophils % (Manual) 1, Band Neutrophils 0, Platelet Estimate Adequate, Platelet Morphology Normal, Hypochromasia 1+, Anisocytosis 1+, Sodium Level 134L, Potassium Level 4.5, Chloride Level 97L, Carbon Dioxide Level 31, Anion Gap 6, Blood Urea Nitrogen 51H, Creatinine 1.9H, Estimat Glomerular Filtration Rate , Glucose Level 123H, Calcium Level 9.7 Current Medications Medications (Trade) Dose Ordered Sig/Renetta Route PRN Reason Start Time Stop Time Status Last Admin Dose Admin Acetaminophen (Tylenol) 650 mg Q6H PRN GT Mild Pain/Temp > 100.5 08/21/18 16:00 09/18/18 15:59 09/08/18 08:49 Acetaminophen/ Hydrocodone Bitart ([place] 5/325) 1 tab Q6H PRN GT For Pain 09/06/18 13:35 09/13/18 13:00 09/11/18 17:32 Amiodarone HCl (Cordarone) 200 mg DAILY GT 08/31/18 09:00 09/24/18 20:59 09/11/18 08:56 Apixaban (Eliquis) 2.5 mg BID GT 08/25/18 18:00 09/24/18 17:59 09/11/18 17:21 Artificial Tears (Akwa-Tears) 1 drop Q4H PRN BOTH EYES Dry Eyes 08/21/18 15:30 09/19/18 15:29 08/30/18 16:53 Chlorhexidine Gluconate (Rylie-Hex 2%) 1 applic DAILY@1999 TOPIC 08/28/18 20:00 09/27/18 19:59 09/10/18 20:12 Collagenase (Santyl) 1 applic DAILY TOPIC 09/05/18 21:00 10/05/18 08:59 09/11/18 13:53 Epoetin Paul (Procrit (for ESRD on dialysis)) 10,000 units WED-WED-WED SUBQ 09/12/18 21:00 10/12/18 20:59 Iron Sucrose 100 mg/Sodium Chloride 60 ml @ 240 mls/hr BEDTIME IV 09/10/18 21:00 09/14/18 21:14 09/10/18 20:12 Lansoprazole (Prevacid) 30 mg Q12HR GT 08/25/18 21:00 09/24/18 20:59 09/11/18 08:56 Meropenem 500 mg/ Sodium Chloride 55 ml @ 110 mls/hr DAILY IVPB 09/12/18 09:00 09/15/18 08:59 Minoxidil (Loniten) 2.5 mg Q12HR GT 08/25/18 21:00 09/24/18 20:59 09/11/18 08:56 Sodium Chloride 1,000 ml @ 500 mls/hr Q2H PRN IVLG sbp<90 during hd 09/11/18 10:18 09/12/18 23:59 Sodium Chloride ([place]raham Nasal [place]) 1 spray Q4H PRN NASAL dry nose 08/21/18 14:30 09/19/18 18:29 09/10/18 08:35 Zolpidem Tartrate (Ambien) 5 mg HSPRN PRN ORAL Insomnia 09/09/18 08:00 09/16/18 07:59 09/10/18 20:11 Negro Patel MD Sep 11, 2018 18:38
--- NOTE | 2018-09-11 19:05 | NUR ---
HAND-OFF: Report given to BALDO Henderson ,patient awake on restraints,ventilator,G tube feeding,no distress.
--- NOTE | 2018-09-11 19:10 | NUR ---
NURSE NOTES: Report received from BALDO Hdz. Observed pt lying on the bed, awake and agitated, uncovering herself by taking off her gown and blankets, and swinging her hands side by side. Held her hands and told her I am here to help her and will bring night time medication. Emotional support done. Changed the position with multiple pillows. SR with laboratory monitor. Trach on vent AC 8, TD 450, FIO2 40%, PEEP 5, and Shiley 8. GT site intact and running Nepro at 40cc/hr. Rectal tube in place and draining well. Midline at FLACO, intact and patent. AV shunt at left UA, intact. Bed in the lowest position. Side rails up x3. Will continue to monitor.
--- NOTE | 2018-09-11 19:31 | NUR ---
NURSE NOTES: Patient remain restless want take restraints out,son visited concerned about patient confusion,medicated for pain on her tracheostomy site,patient point pain,oral care done q 4 hrs ,skin care done g tube care,on special mattress to protect skin,head elevated aspiration precaution,while i was with her i take restraints off but arms swinging almost pulled tracheostomy reddy,talked to her not to pull device,she can communicate by writing,when she says help me i hold her hand ,thats what she needs,made comfortable,emotional support provided to patient and son
[2018-09-11] MEDS: Dyna-Hex 2% Top Sol 2oz TOPIC SCH (19:57)
[2018-09-11 20:00] VITALS: BP 138/50
[2018-09-11] MEDS: Iron Sucrose 100 MG in NS 55 ML IV SCH (20:55)
[2018-09-12] VITALS (7 sets, daily range): BP systolic 111–150; BP diastolic 37–62
[2018-09-12] MEDS: Norco 5mg/325mg tab GT PRN ×2 (00:54→17:35)
--- NOTE | 2018-09-12 01:00 | NUR ---
NURSE NOTES: pt c/o pain on right abdomen, aching and 7/10, with facial grimacing, restlessness. Distraction measures done. prn pain med given. Will continue to monitor.
[2018-09-12] MEDS: Zolpidem 5mg tab ORAL PRN (04:12)
--- NOTE | 2018-09-12 07:00 | NUR ---
RESPIRATORY NOTE: Pt received on mechanical ventilator. patient is a trach patient with Shiley 8. current settings are AC 450,8, 40%, +5. AMBU bag bedside, spare trach, and all alarms are set and audible. Will continue to monitor patient.
[2018-09-12 07:12] LABS: HEMATOCRIT 20.9 % (37.0-47.0); MEAN CORPUSCULAR VOLUME 95 FL (80-99); PLATELET COUNT 419 K/UL (150-450); RED BLOOD COUNT 2.19 M/UL (4.20-5.40); RED CELL DISTRIBUTION WIDTH 17.3 % (11.6-14.8); WHITE BLOOD COUNT 6.7 K/UL (4.8-10.8)
--- NOTE | 2018-09-12 07:23 | NUR ---
NURSE NOTES: Received report RN [place] patient asleep on restraints-pulling device,calm,on overlay mattress,ventilator ,G tube feeding,continue care
[2018-09-12 07:30] LABS: ANION GAP 6 mmol/L (5-15); BLOOD UREA NITROGEN 64 mg/dL (7-18); CALCIUM 9.4 MG/DL (8.5-10.1); CARBON DIOXIDE 29 MMOL/L (21-32); CHLORIDE 98 MMOL/L (98-107); CREATININE 2.2 MG/DL (0.55-1.30); POTASSIUM 4.2 MMOL/L (3.5-5.1); SODIUM 133 MMOL/L (136-145)
[2018-09-12 07:31] LABS: HEMOGLOBIN 6.6 G/DL (12.0-16.0)
--- NOTE | 2018-09-12 07:35 | NUR ---
HAND-OFF: Report given to BALDO Hdz. Pt's hgb level endorsed to the RN. No acute distress noted at this time. Observed pt sleeping on the bed.
--- NOTE | 2018-09-12 08:17 | Pulmonology Progress Note ---
Assessment/Plan Assessment/Plan IMPRESSION: 1. Hypotension. Resolved. 2. Sepsis. Resolved 3. Atrial fibrillation. 4. Bradycardia. 5. Diabetes mellitus. 6. End-stage renal disease on dialysis. 7. Left lung collapse. Resolved 8. Respiratory failure. S/p tracheostomy 9. Dysphagia. 10. Dementia. 11. Anemia DISCUSSION: 1. Continue medications. 2. On amiodarone 3. Status post tracheostomy 4. S/p G-tube 5. Continue HD Andres Allan M.D. Subjective Interval Events: No new reported events Constitutional: Reports: no symptoms HEENT: Repors: no symptoms Respiratory: Reports: no symptoms Cardiovascular: Reports: no symptoms Gastrointestinal/Abdominal: Reports: no symptoms Genitourinary: Reports: no symptoms Neurologic: Reports: no symptoms Allergies: Coded Allergies: No Known Allergies (Unverified , 07/25/18) Objective Last 24 Hour Vital Signs Date Time Temp Pulse Resp B/P (MAP) Pulse Ox O2 Delivery O2 Flow Rate FiO2 09/12/18 06:56 69 15 40 09/12/18 05:04 64 11 40 09/12/18 04:00 98.1 82 18 150/51 (84) 100 09/12/18 04:00 Mechanical Ventilator Mechanical Ventilator 09/12/18 04:00 40 09/12/18 04:00 68 09/12/18 03:20 67 12 40 09/12/18 01:05 90 19 40 09/12/18 00:00 98.1 110 18 149/50 (83) 100 09/12/18 00:00 110 09/12/18 00:00 Mechanical Ventilator Mechanical Ventilator 09/12/18 00:00 40 09/11/18 22:55 85 16 40 09/11/18 20:54 138/50 09/11/18 20:44 84 14 40 09/11/18 20:00 84 09/11/18 20:00 Mechanical Ventilator Mechanical Ventilator 09/11/18 20:00 40 09/11/18 20:00 98.1 94 16 138/50 (79) 100 09/11/18 19:13 81 21 40 09/11/18 18:00 40 1/13/19 16:48 87 17 40 09/11/18 16:10 Mechanical Ventilator Mechanical Ventilator 09/11/18 16:07 88 19 40 09/11/18 16:00 95 09/11/18 16:00 40 09/11/18 16:00 97.7 81 20 135/61 (85) 100 09/11/18 12:48 94 17 40 09/11/18 12:00 117 09/11/18 12:00 97.9 110 20 140/68 (92) 100 09/11/18 12:00 Mechanical Ventilator Mechanical Ventilator 09/11/18 12:00 40 09/11/18 10:55 108 20 40 09/11/18 08:58 78 16 40 09/11/18 08:56 125/48 09/11/18 08:46 97.9 69 20 125/48 (73) 100 09/11/18 08:30 Mechanical Ventilator Mechanical Ventilator Intake and Output 09/11/18 09/12/18 19:00 07:00 Intake Total 690 ml 680 ml Output Total 50 ml 20 ml Balance 640 ml 660 ml Free Water 210 ml 140 ml IV Total 60 ml Tube Feeding 480 ml 480 ml Stool Total 20 ml Chest Tube Drainage Total 50 ml # Voids 1 General Appearance: no acute distress HEENT: normocephalic, status post trach Respiratory/Chest: chest wall non-tender, lungs clear Cardiovascular: normal peripheral pulses Abdomen: normal bowel sounds, soft, non tender Extremities: no cyanosis Laboratory Tests 09/12/18 05:05: White Blood Count 6.7, Red Blood Count 2.19L, Hemoglobin 6.6*L, Hematocrit 20.9L , Mean Corpuscular Volume 95, Mean Corpuscular Hemoglobin 30.2, Mean Corpuscular Hemoglobin Concent 31.6L, Red Cell Distribution Width 17.3H, Platelet Count 419, Mean Platelet Volume 6.0L, Neutrophils (%) (Auto) , Lymphocytes (%) (Auto) , Monocytes (%) (Auto) , Eosinophils (%) (Auto) , Basophils (%) (Auto) , Neutrophils % (Manual) [Pending], Lymphocytes % (Manual) [Pending], Platelet Estimate [Pending], Platelet Morphology [Pending], Sodium Level 133L, Potassium Level 4.2, Chloride Level 98, Carbon Dioxide Level 29, Anion Gap 6, Blood Urea Nitrogen 64H, Creatinine 2.2H, Estimat Glomerular Filtration Rate , Glucose Level 115H, Calcium Level 9.4 Current Medications Medications (Trade) Dose Ordered Sig/Renetta Route PRN Reason Start Time Stop Time Status Last Admin Dose Admin Acetaminophen (Tylenol) 650 mg Q6H PRN GT Mild Pain/Temp > 100.5 08/21/18 16:00 09/18/18 15:59 09/08/18 08:49 Acetaminophen/ Hydrocodone Bitart ([place] 5/325) 1 tab Q6H PRN GT For Pain 09/06/18 13:35 09/13/18 13:00 09/12/18 00:54 Amiodarone HCl (Cordarone) 200 mg DAILY GT 08/31/18 09:00 09/24/18 20:59 09/11/18 08:56 Apixaban (Eliquis) 2.5 mg BID GT 08/25/18 18:00 09/24/18 17:59 09/11/18 17:21 Artificial Tears (Akwa-Tears) 1 drop Q4H PRN BOTH EYES Dry Eyes 08/21/18 15:30 09/19/18 15:29 08/30/18 16:53 Chlorhexidine Gluconate (Rylie-Hex 2%) 1 applic DAILY@1999 TOPIC 08/28/18 20:00 09/27/18 19:59 09/11/18 19:57 Collagenase (Santyl) 1 applic DAILY TOPIC 09/05/18 21:00 10/05/18 08:59 09/11/18 13:53 Epoetin Paul (Procrit (for ESRD on dialysis)) 10,000 units WED-WED-WED SUBQ 09/12/18 21:00 10/12/18 20:59 Iron Sucrose 100 mg/Sodium Chloride 60 ml @ 240 mls/hr BEDTIME IV 09/10/18 21:00 09/14/18 21:14 09/11/18 20:55 Lansoprazole (Prevacid) 30 mg Q12HR GT 08/25/18 21:00 09/24/18 20:59 09/11/18 20:54 Meropenem 500 mg/ Sodium Chloride 55 ml @ 110 mls/hr DAILY IVPB 09/12/18 09:00 09/15/18 08:59 Minoxidil (Loniten) 2.5 mg Q12HR GT 08/25/18 21:00 09/24/18 20:59 09/11/18 20:54 Sodium Chloride 1,000 ml @ 500 mls/hr Q2H PRN IVLG sbp<90 during hd 09/11/18 10:18 09/12/18 23:59 Sodium Chloride ([place] Nasal [place]) 1 spray Q4H PRN NASAL dry nose 08/21/18 14:30 09/19/18 18:29 09/10/18 08:35 Zolpidem Tartrate (Ambien) 5 mg HSPRN PRN ORAL Insomnia 09/09/18 08:00 09/16/18 07:59 09/12/18 04:12 Andres Allan MD Sep 12, 2018 08:17
[2018-09-12] MEDS: Meropenem 500 MG in NS 55 ML IVPB SCH (09:37)
[2018-09-12] MEDS: Amiodarone 200mg tab GT SCH (09:38)
[2018-09-12] MEDS: Minoxidil 2.5mg tab GT SCH ×2 (09:38→20:35)
[2018-09-12] MEDS: Eliquis 2.5mg tablet GT SCH ×2 (09:38→17:34)
--- NOTE | 2018-09-12 10:31 | NUR ---
NURSE NOTES: patient banging hands on side rail,discuss with patient,reminded not to hit her hand on rails,she can hurt her hand,need ativan
[2018-09-12] MEDS: LORazepam 0.5mg tab ORAL PRN ×2 (10:33→20:34)
--- NOTE | 2018-09-12 12:08 | GI Progress Note ---
Assessment/Plan Problems: (1) Encounter for PEG (percutaneous endoscopic gastrostomy) ICD Codes: Z43.1 - Encounter for attention to gastrostomy SNOMED: 106205112, 446574776 (2) Severe malnutrition ICD Codes: E43 - Unspecified severe protein-calorie malnutrition SNOMED: 83847791 (3) Dehydration ICD Codes: E86.0 - Dehydration SNOMED: 94974826 Status: unchanged Status Narrative Discussed with Dr. Cox Assessment/Plan Assessment - Dysphagia - Resp failure - ESRD - Anemia - Status post PEG, tolerating feeds Recommendations 1. Abdominal binder. 2. Elevate the head of the bed at all times. 3. G-tube flush. 4. G-tube care. 5. tube feeding later today per RD to goal Monitor H&H, PRN transfusions PPI Electrolyte correction Follow-up labs The patient was seen and examined at bedside and all new and available data was reviewed in the patients chart. I agree with the above findings, impression and plan. (Patient seen earlier today. Signature stamp does not reflect patient encounter time.). - Oc Cox MD Subjective Subjective limited Objective Last 24 Hour Vital Signs Date Time Temp Pulse Resp B/P (MAP) Pulse Ox O2 Delivery O2 Flow Rate FiO2 09/12/18 10:53 77 16 40 09/12/18 09:38 121/43 09/12/18 08:50 66 12 40 09/12/18 08:30 98.2 70 18 121/43 (69) 100 09/12/18 08:00 67 09/12/18 06:56 69 15 40 09/12/18 05:04 64 11 40 09/12/18 04:00 98.1 82 18 150/51 (84) 100 09/12/18 04:00 Mechanical Ventilator Mechanical Ventilator 09/12/18 04:00 40 09/12/18 04:00 68 09/12/18 03:20 67 12 40 09/12/18 01:05 90 19 40 09/12/18 00:00 98.1 110 18 149/50 (83) 100 09/12/18 00:00 110 09/12/18 00:00 Mechanical Ventilator Mechanical Ventilator 09/12/18 00:00 40 09/11/18 22:55 85 16 40 09/11/18 20:54 138/50 09/11/18 20:44 84 14 40 09/11/18 20:00 84 09/11/18 20:00 Mechanical Ventilator Mechanical Ventilator 09/11/18 20:00 40 09/11/18 20:00 98.1 94 16 138/50 (79) 100 09/11/18 19:13 81 21 40 09/11/18 18:00 40 09/11/18 16:48 87 17 40 09/11/18 16:10 Mechanical Ventilator Mechanical Ventilator 09/11/18 16:07 88 19 40 09/11/18 16:00 95 09/11/18 16:00 40 09/11/18 16:00 97.7 81 20 135/61 (85) 100 09/11/18 12:48 94 17 40 Intake and Output 09/11/18 09/12/18 19:00 07:00 Intake Total 690 ml 680 ml Output Total 50 ml 20 ml Balance 640 ml 660 ml Free Water 210 ml 140 ml IV Total 60 ml Tube Feeding 480 ml 480 ml Stool Total 20 ml Chest Tube Drainage Total 50 ml # Voids 1 Laboratory Tests Test 09/12/18 05:05 White Blood Count 6.7 K/UL (4.8-10.8) Red Blood Count 2.19 M/UL (4.20-5.40) L Hemoglobin 6.6 G/DL (12.0-16.0) *L Hematocrit 20.9 % (37.0-47.0) L Mean Corpuscular Volume 95 FL (80-99) Mean Corpuscular Hemoglobin 30.2 PG (27.0-31.0) Mean Corpuscular Hemoglobin Concent 31.6 G/DL (32.0-36.0) L Red Cell Distribution Width 17.3 % (11.6-14.8) H Platelet Count 419 K/UL (150-450) Mean Platelet Volume 6.0 FL (6.5-10.1) L Neutrophils (%) (Auto) % (45.0-75.0) Lymphocytes (%) (Auto) % (20.0-45.0) Monocytes (%) (Auto) % (1.0-10.0) Eosinophils (%) (Auto) % (0.0-3.0) Basophils (%) (Auto) % (0.0-2.0) Differential Total Cells Counted 100 Neutrophils % (Manual) 84 % (45-75) H Lymphocytes % (Manual) 3 % (20-45) L Monocytes % (Manual) 10 % (1-10) Eosinophils % (Manual) 1 % (0-3) Basophils % (Manual) 1 % (0-2) Band Neutrophils 1 % (0-8) Platelet Estimate Adequate Platelet Morphology Normal Anisocytosis 1+ Sodium Level 133 MMOL/L (136-145) L Potassium Level 4.2 MMOL/L (3.5-5.1) Chloride Level 98 MMOL/L (98-107) Carbon Dioxide Level 29 MMOL/L (21-32) Anion Gap 6 mmol/L (5-15) Blood Urea Nitrogen 64 mg/dL (7-18) H Creatinine 2.2 MG/DL (0.55-1.30) H Estimat Glomerular Filtration Rate mL/min (>60) Glucose Level 115 MG/DL (74-106) H Calcium Level 9.4 MG/DL (8.5-10.1) Height (Feet): 5 Height (Inches): 2.00 Weight (Pounds): 122 General Appearance: no apparent distress Cardiovascular: normal rate Respiratory/Chest: other - Mechanical ventilator Abdominal Exam: GT site - Clean dry and intact Rita Quintanilla NP Sep 12, 2018 12:08
[2018-09-12 15:00] LABS: HEMATOCRIT 20.8 % (37.0-47.0); MEAN CORPUSCULAR VOLUME 95 FL (80-99); PLATELET COUNT 421 K/UL (150-450); WHITE BLOOD COUNT 6.9 K/UL (4.8-10.8)
[2018-09-12 15:04] LABS: ANION GAP 6 mmol/L (5-15); BLOOD UREA NITROGEN 69 mg/dL (7-18); CARBON DIOXIDE 30 MMOL/L (21-32); CHLORIDE 99 MMOL/L (98-107); CREATININE 2.4 MG/DL (0.55-1.30); POTASSIUM 4.4 MMOL/L (3.5-5.1); SODIUM 135 MMOL/L (136-145)
[2018-09-12 15:05] LABS: HEMOGLOBIN 6.6 G/DL (12.0-16.0)
--- NOTE | 2018-09-12 15:18 | NUR ---
CASE MANAGEMENT: REVIEW SI: ESRD ON HD TRACHEOSTOMY 08/15 PEG PLACEMENT 08/17 T 98.2 HR 70 RR 18 BP 121/43 SAT 100% MECH VENT FIO2 40 NA 133 BUN 64 CR 2.2 IS: MEROPENEM IV QD AMIODARONE GT QD MINOXIDIL GT Q12HR ELEQUIS GT BID GT FEEDING NEPRO @ 40ML/HR HD PRN STEP DOWN UNIT STATUS DCP: PATIENT IS FROM [facility]. PATIENT REFERRED TO [facility]. [facility] WILL NOT ACCEPT PATIENT WITHOUT CHAIR TIME AT DIALYSIS CENTER. PATIENT REFERRED TO [facility]. AWAITING CHAIR TIME AT DIALYSIS CENTER.
--- NOTE | 2018-09-12 15:20 | NUR ---
NURSE NOTES: Patient on hemodialysis at this time,CBC,BMP,drawn by HD nurse,result- Hgb 6.6 HCt- 20.8,reported to Dr. He,waiting for return call
--- NOTE | 2018-09-12 16:42 | Nephrology Progress Note ---
Assessment/Plan Assessment Seee below Plan ESRD HD q MWF Anemia of CKD , DARRYN high dose. A. 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 with LAE. LVEF 65% . On Eliquis. Post trach + PEG . Referred to [facility]. Pt's son agreeable to [facility]. Referred again. See orders. Still needs extensive Vascular W/U. Hct 20. Being transfused on HD. Subjective Subjective More calm (Ativan increased). On HD now. Stable run. Objective Objective Last 24 Hour Vital Signs Date Time Temp Pulse Resp B/P (MAP) Pulse Ox O2 Delivery O2 Flow Rate FiO2 09/12/18 16:00 40 09/12/18 15:07 84 18 40 09/12/18 13:15 70 12 40 09/12/18 12:00 40 09/12/18 10:53 77 16 40 09/12/18 09:38 121/43 09/12/18 08:50 66 12 40 09/12/18 08:30 98.2 70 18 121/43 (69) 100 09/12/18 08:00 67 09/12/18 08:00 Mechanical Ventilator Mechanical Ventilator 09/12/18 08:00 40 09/12/18 06:56 69 15 40 09/12/18 05:04 64 11 40 09/12/18 04:00 98.1 82 18 150/51 (84) 100 09/12/18 04:00 Mechanical Ventilator Mechanical Ventilator 09/12/18 04:00 40 09/12/18 04:00 68 09/12/18 03:20 67 12 40 09/12/18 01:05 90 19 40 09/12/18 00:00 98.1 110 18 149/50 (83) 100 09/12/18 00:00 110 09/12/18 00:00 Mechanical Ventilator Mechanical Ventilator 09/12/18 00:00 40 09/11/18 22:55 85 16 40 09/11/18 20:54 138/50 09/11/18 20:44 84 14 40 09/11/18 20:00 84 09/11/18 20:00 Mechanical Ventilator Mechanical Ventilator 09/11/18 20:00 40 09/11/18 20:00 98.1 94 16 138/50 (79) 100 09/11/18 19:13 81 21 40 09/11/18 18:00 40 09/11/18 16:48 87 17 40 Intake and Output 09/11/18 09/12/18 19:00 07:00 Intake Total 690 ml 680 ml Output Total 50 ml 20 ml Balance 640 ml 660 ml Free Water 210 ml 140 ml IV Total 60 ml Tube Feeding 480 ml 480 ml Stool Total 20 ml Chest Tube Drainage Total 50 ml # Voids 1 Laboratory Tests 09/12/18 05:05: White Blood Count 6.7, Red Blood Count 2.19L, Hemoglobin 6.6*L, Hematocrit 20.9L , Mean Corpuscular Volume 95, Mean Corpuscular Hemoglobin 30.2, Mean Corpuscular Hemoglobin Concent 31.6L, Red Cell Distribution Width 17.3H, Platelet Count 419, Mean Platelet Volume 6.0L, Neutrophils (%) (Auto) , Lymphocytes (%) (Auto) , Monocytes (%) (Auto) , Eosinophils (%) (Auto) , Basophils (%) (Auto) , Differential Total Cells Counted 100, Neutrophils % ( Manual) 84H, Lymphocytes % (Manual) 3L, Monocytes % (Manual) 10, Eosinophils % ( Manual) 1, Basophils % (Manual) 1, Band Neutrophils 1, Platelet Estimate Adequate, Platelet Morphology Normal, Anisocytosis 1+, Sodium Level 133L, Potassium Level 4.2, Chloride Level 98, Carbon Dioxide Level 29, Anion Gap 6, Blood Urea Nitrogen 64H, Creatinine 2.2H, Estimat Glomerular Filtration Rate , Glucose Level 115H, Calcium Level 9.4 09/12/18 14:18: White Blood Count 6.9, Red Blood Count 2.20L, Hemoglobin 6.6*L, Hematocrit 20.8L , Mean Corpuscular Volume 95, Mean Corpuscular Hemoglobin 29.8, Mean Corpuscular Hemoglobin Concent 31.5L, Red Cell Distribution Width 17.0H, Platelet Count 421, Mean Platelet Volume 5.9L, Neutrophils (%) (Auto) , Lymphocytes (%) (Auto) , Monocytes (%) (Auto) , Eosinophils (%) (Auto) , Basophils (%) (Auto) , Neutrophils % (Manual) [Pending], Lymphocytes % (Manual) [Pending], Platelet Estimate [Pending], Platelet Morphology [Pending], Sodium Level 135L, Potassium Level 4.4, Chloride Level 99, Carbon Dioxide Level 30, Anion Gap 6, Blood Urea Nitrogen 69H, Creatinine 2.4H, Estimat Glomerular Filtration Rate , Glucose Level 132H, Calcium Level 9.0 Height (Feet): 5 Height (Inches): 2.00 Weight (Pounds): 122 Objective On vent. Trach clean. Cv IRR/IRR Lungs B ronchi. Abd SNT. BS + PEG. E Rt. foot diabetic ulcers Chase He MD Sep 12, 2018 16:42
[2018-09-12] MEDS ORDERED: NS 275ml ONE (17:08)
[2018-09-12] MEDS ORDERED: Tubing IV Secondary IV ONE (17:08)
--- NOTE | 2018-09-12 17:36 | NUR ---
NURSE NOTES: reported to Dr. He low blood levels with orders 1 unit blood,dialysis completed Addendum: 09/12/18 at 1737 by Tiara HALE RN restless banging side rails express pain neck,medicate for pain
--- NOTE | 2018-09-12 19:00 | NUR ---
NURSE NOTES: Blood transfusion started,VS stable ,stay with patient watch for reaction 1914 tolerated blood ,continue transfusion,observe for reaction
--- NOTE | 2018-09-12 19:35 | NUR ---
HAND-OFF: Report given to RN Kristi patient awake,no distress blood infusing.
--- NOTE | 2018-09-12 19:36 | NUR ---
NURSE NOTES: Bedside report received from BALDO Hdz. Pt is currently receiving 1 unit of PRBCs; tolerating well, VSS. AOx2, oriented to name, able to follow commands, understands purpose, nonverbal. Shiley 8, AC 8, TV 450, FiO2 40, PEEp 5; tolerating well, some coughing noted. CGT Nepro @ 40 ml/hr; patent, no residual. Rectal tube intact, draining. Skin is clean and dry, dressings intact. Will cx later per protocol. FLACO midline noted; asymptomatic. SHARON shunt noted; edematous, MD aware per RN. Pt received dialysis today 2L out noted. Pt requesting prn Ativan, will give w/ 2100 meds. Bed is locked in lowest position, side rails x3, bilater wrist restraints, palpable pulses, bed alarm on, safety precautions continued. Will continue to monitor and follow plan of care.
--- NOTE | 2018-09-12 20:30 | NUR ---
NURSE NOTES: Held iron sucrose d/t blood transfusion, risk for iron overload. Will leave message w/ pipeline.
[2018-09-12] MEDS: Dyna-Hex 2% Top Sol 2oz TOPIC SCH (20:33)
[2018-09-12] MEDS: Epogen (for ESRD on dialysis) SUBQ SCH (20:34)
[2018-09-12] MEDS: Iron Sucrose 100 MG in NS 55 ML IV SCH (20:36)
[2018-09-13] VITALS: BP 110/82
[2018-09-13 04:00] VITALS: BP 103/62
[2018-09-13] MEDS: Norco 5mg/325mg tab GT PRN ×3 (04:50→20:37)
[2018-09-13 05:55] LABS: BASOPHILS % (AUTO) 1.4 % (0.0-2.0); EOSINOPHILS % (AUTO) 2.6 % (0.0-3.0); HEMATOCRIT 26.8 % (37.0-47.0); HEMOGLOBIN 8.6 G/DL (12.0-16.0); LYMPHOCYTES % (AUTO) 7.1 % (20.0-45.0); MEAN CORPUSCULAR VOLUME 95 FL (80-99); MONOCYTES % (AUTO) 9.8 % (1.0-10.0); NEUTROPHILS % (AUTO) 79.1 % (45.0-75.0); PLATELET COUNT 432 K/UL (150-450); RED BLOOD COUNT 2.83 M/UL (4.20-5.40); RED CELL DISTRIBUTION WIDTH 16.2 % (11.6-14.8)
[2018-09-13 06:30] LABS: ANION GAP 6 mmol/L (5-15); BLOOD UREA NITROGEN 34 mg/dL (7-18); CALCIUM 9.1 MG/DL (8.5-10.1); CARBON DIOXIDE 31 MMOL/L (21-32); CHLORIDE 99 MMOL/L (98-107); CREATININE 1.4 MG/DL (0.55-1.30); POTASSIUM 4.1 MMOL/L (3.5-5.1); SODIUM 136 MMOL/L (136-145)
--- NOTE | 2018-09-13 07:04 | NUR ---
HAND-OFF: Report given to BALDO Galvez. Pt is resting in bed, VSS, no s/s of distress.
--- NOTE | 2018-09-13 07:05 | NUR ---
NURSE NOTES: Received patient from BALDO Berry. Patient in bed, awake, and alert. Able to mouth her needs. Trach to vent dependent Shiley 8 AC 8 TV 450 Fi02 40 Peep 5. gatehouse attendant in placed. Tolerating gtube feeding. Rectal tube in placed. FLACO midline asymptomatic. Bed in lowest position with side rails up. bilateral soft wrist restraints in placed. Will continue to follow plan of care.
--- NOTE | 2018-09-13 07:11 | NUR ---
RESPIRATORY NOTE: received pt on vent, trached with shiley 8, secured by trach tie/guard. no redness around stoma or skin tears. pt is awake and alert. alarms are set and audible with current vent settings. ambu at bedside and vent plugged into red outlet. will cont to monitor pt.
[2018-09-13 08:00] VITALS: BP 150/65
[2018-09-13] MEDS: Minoxidil 2.5mg tab GT SCH ×2 (08:50→20:34)
[2018-09-13] MEDS: Amiodarone 200mg tab GT SCH (08:51)
[2018-09-13] MEDS: Eliquis 2.5mg tablet GT SCH ×2 (08:51→17:44)
[2018-09-13] MEDS: Meropenem 500 MG in NS 55 ML IVPB SCH (08:51)
[2018-09-13] MEDS: LORazepam 0.5mg tab ORAL PRN (09:20)
[2018-09-13] MEDS: Iron Sucrose 100 MG in NS 55 ML IV SCH (09:39)
--- NOTE | 2018-09-13 11:01 | Infectious Diseases Prog Note ---
Assessment/Plan Assessment/Plan antibiotics : meropenem A 1. e.coli UTI 2. pseudomonas pneumonia 3. leucocytosis improving 4. respiratory failure s/p tracheostomy 5. renal failure 6. 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 pleural effusion P 1. continue iv meropenem 2 more days 2. will follow up cultures Subjective ROS Limited/Unobtainable: Yes Allergies: Coded Allergies: No Known Allergies (Unverified , 07/25/18) Objective Vital Signs Last 24 Hour Vital Signs Date Time Temp Pulse Resp B/P (MAP) Pulse Ox O2 Delivery O2 Flow Rate FiO2 09/13/18 08:50 150/65 09/13/18 08:41 129 26 40 09/13/18 08:00 40 09/13/18 08:00 97.5 113 22 150/65 (93) 100 09/13/18 08:00 Mechanical Ventilator Mechanical Ventilator 09/13/18 07:55 122 09/13/18 07:10 120 16 40 09/13/18 05:20 97.3 09/13/18 05:12 119 22 40 09/13/18 04:00 129 09/13/18 04:00 97.3 104 21 103/62 (76) 100 09/13/18 04:00 40 09/13/18 04:00 Mechanical Ventilator Mechanical Ventilator 09/13/18 03:02 111 20 40 09/13/18 01:28 96 19 40 09/13/18 00:00 97.9 119 17 110/82 (91) 100 09/13/18 00:00 Mechanical Ventilator Mechanical Ventilator 09/13/18 00:00 40 09/12/18 23:48 116 09/12/18 20:57 113 24 40 09/12/18 20:35 125/62 09/12/18 20:00 111 09/12/18 20:00 Mechanical Ventilator Mechanical Ventilator 09/12/18 20:00 40 09/12/18 19:15 97.9 119 22 125/62 (83) 100 09/12/18 18:52 121 18 40 09/12/18 18:30 98.1 87 22 111/37 (61) 100 09/12/18 17:25 84 20 40 09/12/18 16:00 Mechanical Ventilator Mechanical Ventilator 09/12/18 16:00 98.5 84 22 132/44 (73) 100 09/12/18 16:00 126 09/12/18 16:00 40 09/12/18 15:07 84 18 40 09/12/18 13:15 70 12 40 09/12/18 12:10 65 09/12/18 12:00 40 09/12/18 12:00 Mechanical Ventilator Mechanical Ventilator 09/12/18 12:00 98.1 106 20 143/54 (83) 100 Height (Feet): 5 Height (Inches): 2.00 Weight (Pounds): 124 HEENT: status post trach Respiratory/Chest: lungs clear Cardiovascular: normal rate, regular rhythm, no gallop/murmur Abdomen: soft, non tender, other - GT Extremities: no edema, other - right arm PICC Laboratory Tests Test 09/12/18 14:18 09/13/18 03:15 White Blood Count 6.9 K/UL (4.8-10.8) 8.0 K/UL (4.8-10.8) Red Blood Count 2.20 M/UL (4.20-5.40) L 2.83 M/UL (4.20-5.40) L Hemoglobin 6.6 G/DL (12.0-16.0) *L 8.6 G/DL (12.0-16.0) #L Hematocrit 20.8 % (37.0-47.0) L 26.8 % (37.0-47.0) L Mean Corpuscular Volume 95 FL (80-99) 95 FL (80-99) Mean Corpuscular Hemoglobin 29.8 PG (27.0-31.0) 30.2 PG (27.0-31.0) Mean Corpuscular Hemoglobin Concent 31.5 G/DL (32.0-36.0) L 31.9 G/DL (32.0-36.0) L Red Cell Distribution Width 17.0 % (11.6-14.8) H 16.2 % (11.6-14.8) H Platelet Count 421 K/UL (150-450) 432 K/UL (150-450) Mean Platelet Volume 5.9 FL (6.5-10.1) L 6.0 FL (6.5-10.1) L Neutrophils (%) (Auto) % (45.0-75.0) 79.1 % (45.0-75.0) H Lymphocytes (%) (Auto) % (20.0-45.0) 7.1 % (20.0-45.0) L Monocytes (%) (Auto) % (1.0-10.0) 9.8 % (1.0-10.0) Eosinophils (%) (Auto) % (0.0-3.0) 2.6 % (0.0-3.0) Basophils (%) (Auto) % (0.0-2.0) 1.4 % (0.0-2.0) Differential Total Cells Counted 100 Neutrophils % (Manual) 83 % (45-75) H Lymphocytes % (Manual) 5 % (20-45) L Monocytes % (Manual) 8 % (1-10) Eosinophils % (Manual) 2 % (0-3) Basophils % (Manual) 1 % (0-2) Band Neutrophils 1 % (0-8) Platelet Estimate Adequate Platelet Morphology Normal Hypochromasia 2+ Anisocytosis 2+ Sodium Level 135 MMOL/L (136-145) L 136 MMOL/L (136-145) Potassium Level 4.4 MMOL/L (3.5-5.1) 4.1 MMOL/L (3.5-5.1) Chloride Level 99 MMOL/L (98-107) 99 MMOL/L (98-107) Carbon Dioxide Level 30 MMOL/L (21-32) 31 MMOL/L (21-32) Anion Gap 6 mmol/L (5-15) 6 mmol/L (5-15) Blood Urea Nitrogen 69 mg/dL (7-18) H 34 mg/dL (7-18) H Creatinine 2.4 MG/DL (0.55-1.30) H 1.4 MG/DL (0.55-1.30) H Estimat Glomerular Filtration Rate mL/min (>60) mL/min (>60) Glucose Level 132 MG/DL (74-106) H 116 MG/DL (74-106) H Calcium Level 9.0 MG/DL (8.5-10.1) 9.1 MG/DL (8.5-10.1) Current Medications Medications (Trade) Dose Ordered Sig/Renetta Route PRN Reason Start Time Stop Time Status Last Admin Dose Admin Acetaminophen (Tylenol) 650 mg Q6H PRN GT Mild Pain/Temp > 100.5 08/21/18 16:00 09/18/18 15:59 09/08/18 08:49 Acetaminophen/ Hydrocodone Bitart ([place] 5/325) 1 tab Q6H PRN GT For Pain 09/06/18 13:35 09/13/18 13:00 09/13/18 04:50 Amiodarone HCl (Cordarone) 200 mg DAILY GT 08/31/18 09:00 09/24/18 20:59 09/13/18 08:51 Apixaban (Eliquis) 2.5 mg BID GT 08/25/18 18:00 09/24/18 17:59 09/13/18 08:51 Artificial Tears (Akwa-Tears) 1 drop Q4H PRN BOTH EYES Dry Eyes 08/21/18 15:30 09/19/18 15:29 08/30/18 16:53 Chlorhexidine Gluconate (Rylie-Hex 2%) 1 applic DAILY@1999 TOPIC 08/28/18 20:00 09/27/18 19:59 09/12/18 20:33 Collagenase (Santyl) 1 applic DAILY TOPIC 09/05/18 21:00 10/05/18 08:59 09/13/18 09:20 Epoetin Paul (Procrit (for ESRD on dialysis)) 10,000 units WED-WED-WED SUBQ 09/12/18 21:00 10/12/18 20:59 09/12/18 20:34 Iron Sucrose 100 mg/Sodium Chloride 60 ml @ 240 mls/hr DAILY IV 09/13/18 09:00 09/15/18 09:14 09/13/18 09:39 Lansoprazole (Prevacid) 30 mg Q12HR GT 08/25/18 21:00 09/24/18 20:59 09/13/18 08:50 Lorazepam (Ativan) 0.5 mg Q6H PRN ORAL For Anxiety 09/12/18 09:00 09/19/18 08:59 09/13/18 09:20 Meropenem 500 mg/ Sodium Chloride 55 ml @ 110 mls/hr DAILY IVPB 09/12/18 09:00 09/15/18 08:59 09/13/18 08:51 Minoxidil (Loniten) 2.5 mg Q12HR GT 08/25/18 21:00 09/24/18 20:59 09/13/18 08:50 Sodium Chloride ([place] Nasal [place]) 1 spray Q4H PRN NASAL dry nose 08/21/18 14:30 09/19/18 18:29 09/10/18 08:35 Zolpidem Tartrate (Ambien) 5 mg HSPRN PRN ORAL Insomnia 09/09/18 08:00 09/16/18 07:59 09/12/18 04:12 Omid Morfin MD Sep 13, 2018 11:01
[2018-09-13 12:00] VITALS: BP 130/42
--- NOTE | 2018-09-13 12:27 | Pulmonology Progress Note ---
Assessment/Plan Assessment/Plan IMPRESSION: 1. Hypotension. Resolved. 2. Sepsis. Resolved 3. Atrial fibrillation. 4. Bradycardia. 5. Diabetes mellitus. 6. End-stage renal disease on dialysis. 7. Left lung collapse. Resolved 8. Respiratory failure. S/p tracheostomy 9. Dysphagia. 10. Dementia. 11. Anemia DISCUSSION: 1. Continue medications. 2. On amiodarone 3. Status post tracheostomy 4. S/p G-tube 5. Continue HD Andres Allan M.D. Subjective Interval Events: States she cannot breathe however SaO2 100% on 40% FiO2 on AC mode on vent Constitutional: Reports: no symptoms HEENT: Repors: no symptoms Respiratory: Reports: no symptoms Cardiovascular: Reports: no symptoms Gastrointestinal/Abdominal: Reports: no symptoms Genitourinary: Reports: no symptoms Allergies: Coded Allergies: No Known Allergies (Unverified , 07/25/18) Objective Last 24 Hour Vital Signs Date Time Temp Pulse Resp B/P (MAP) Pulse Ox O2 Delivery O2 Flow Rate FiO2 09/13/18 12:00 98.1 70 22 130/42 (71) 100 09/13/18 11:03 110 23 40 09/13/18 08:50 150/65 09/13/18 08:41 129 26 40 09/13/18 08:00 40 09/13/18 08:00 97.5 113 22 150/65 (93) 100 09/13/18 08:00 Mechanical Ventilator Mechanical Ventilator 09/13/18 07:55 122 09/13/18 07:10 120 16 40 09/13/18 05:20 97.3 09/13/18 05:12 119 22 40 09/13/18 04:00 129 09/13/18 04:00 97.3 104 21 103/62 (76) 100 09/13/18 04:00 40 09/13/18 04:00 Mechanical Ventilator Mechanical Ventilator 09/13/18 03:02 111 20 40 09/13/18 01:28 96 19 40 09/13/18 00:00 97.9 119 17 110/82 (91) 100 09/13/18 00:00 Mechanical Ventilator Mechanical Ventilator 09/13/18 00:00 40 09/12/18 23:48 116 09/12/18 20:57 113 24 40 09/12/18 20:35 125/62 09/12/18 20:00 111 09/12/18 20:00 Mechanical Ventilator Mechanical Ventilator 09/12/18 20:00 40 09/12/18 19:15 97.9 119 22 125/62 (83) 100 09/12/18 18:52 121 18 40 09/12/18 18:30 98.1 87 22 111/37 (61) 100 09/12/18 17:25 84 20 40 09/12/18 16:00 Mechanical Ventilator Mechanical Ventilator 09/12/18 16:00 98.5 84 22 132/44 (73) 100 09/12/18 16:00 126 09/12/18 16:00 40 09/12/18 15:07 84 18 40 09/12/18 13:15 70 12 40 Intake and Output 09/12/18 09/13/18 19:00 07:00 Intake Total 640 ml 625 ml Output Total 40 ml 100 ml Balance 600 ml 525 ml Free Water 160 ml 90 ml IV Total 55 ml Tube Feeding 480 ml 480 ml Stool Total 40 ml 100 ml # Voids 2 General Appearance: no acute distress HEENT: normocephalic Respiratory/Chest: chest wall non-tender, lungs clear Cardiovascular: normal peripheral pulses, normal rate Abdomen: normal bowel sounds, soft, non tender Laboratory Tests 09/12/18 14:18: White Blood Count 6.9, Red Blood Count 2.20L, Hemoglobin 6.6*L, Hematocrit 20.8L , Mean Corpuscular Volume 95, Mean Corpuscular Hemoglobin 29.8, Mean Corpuscular Hemoglobin Concent 31.5L, Red Cell Distribution Width 17.0H, Platelet Count 421, Mean Platelet Volume 5.9L, Neutrophils (%) (Auto) , Lymphocytes (%) (Auto) , Monocytes (%) (Auto) , Eosinophils (%) (Auto) , Basophils (%) (Auto) , Differential Total Cells Counted 100, Neutrophils % ( Manual) 83H, Lymphocytes % (Manual) 5L, Monocytes % (Manual) 8, Eosinophils % ( Manual) 2, Basophils % (Manual) 1, Band Neutrophils 1, Platelet Estimate Adequate, Platelet Morphology Normal, Hypochromasia 2+, Anisocytosis 2+, Sodium Level 135L, Potassium Level 4.4, Chloride Level 99, Carbon Dioxide Level 30, Anion Gap 6, Blood Urea Nitrogen 69H, Creatinine 2.4H, Estimat Glomerular Filtration Rate , Glucose Level 132H, Calcium Level 9.0 09/13/18 03:15: White Blood Count 8.0, Red Blood Count 2.83L, Hemoglobin 8.6#L, Hematocrit 26.8L , Mean Corpuscular Volume 95, Mean Corpuscular Hemoglobin 30.2, Mean Corpuscular Hemoglobin Concent 31.9L, Red Cell Distribution Width 16.2H, Platelet Count 432, Mean Platelet Volume 6.0L, Neutrophils (%) (Auto) 79.1H, Lymphocytes (%) (Auto) 7.1L, Monocytes (%) (Auto) 9.8, Eosinophils (%) (Auto) 2.6, Basophils (%) (Auto) 1.4, Sodium Level 136, Potassium Level 4.1, Chloride Level 99, Carbon Dioxide Level 31, Anion Gap 6, Blood Urea Nitrogen 34H, Creatinine 1.4H, Estimat Glomerular Filtration Rate , Glucose Level 116H, Calcium Level 9.1 Current Medications Medications (Trade) Dose Ordered Sig/Renetta Route PRN Reason Start Time Stop Time Status Last Admin Dose Admin Acetaminophen (Tylenol) 650 mg Q6H PRN GT Mild Pain/Temp > 100.5 08/21/18 16:00 09/18/18 15:59 09/08/18 08:49 Acetaminophen/ Hydrocodone Bitart ([place] 5/325) 1 tab Q6H PRN GT For Pain 09/06/18 13:35 09/13/18 13:00 09/13/18 11:44 Amiodarone HCl (Cordarone) 200 mg DAILY GT 08/31/18 09:00 09/24/18 20:59 09/13/18 08:51 Apixaban (Eliquis) 2.5 mg BID GT 08/25/18 18:00 09/24/18 17:59 09/13/18 08:51 Artificial Tears (Akwa-Tears) 1 drop Q4H PRN BOTH EYES Dry Eyes 08/21/18 15:30 09/19/18 15:29 08/30/18 16:53 Chlorhexidine Gluconate (Rylie-Hex 2%) 1 applic DAILY@1999 TOPIC 08/28/18 20:00 09/27/18 19:59 09/12/18 20:33 Collagenase (Santyl) 1 applic DAILY TOPIC 09/05/18 21:00 10/05/18 08:59 09/13/18 09:20 Epoetin Paul (Procrit (for ESRD on dialysis)) 10,000 units WED-WED-WED SUBQ 09/12/18 21:00 10/12/18 20:59 09/12/18 20:34 Iron Sucrose 100 mg/Sodium Chloride 60 ml @ 240 mls/hr DAILY IV 09/13/18 09:00 09/15/18 09:14 09/13/18 09:39 Lansoprazole (Prevacid) 30 mg Q12HR GT 08/25/18 21:00 09/24/18 20:59 09/13/18 08:50 Lorazepam (Ativan) 0.5 mg Q6H PRN ORAL For Anxiety 09/12/18 09:00 09/19/18 08:59 09/13/18 09:20 Meropenem 500 mg/ Sodium Chloride 55 ml @ 110 mls/hr DAILY IVPB 09/12/18 09:00 09/15/18 08:59 09/13/18 08:51 Minoxidil (Loniten) 2.5 mg Q12HR GT 08/25/18 21:00 09/24/18 20:59 09/13/18 08:50 Sodium Chloride ([place] Nasal Cidra) 1 spray Q4H PRN NASAL dry nose 08/21/18 14:30 09/19/18 18:29 09/10/18 08:35 Zolpidem Tartrate (Ambien) 5 mg HSPRN PRN ORAL Insomnia 09/09/18 08:00 09/16/18 07:59 09/12/18 04:12 Andres Allan MD Sep 13, 2018 12:27
--- NOTE | 2018-09-13 13:48 | GI Progress Note ---
Assessment/Plan Problems: (1) Encounter for PEG (percutaneous endoscopic gastrostomy) ICD Codes: Z43.1 - Encounter for attention to gastrostomy SNOMED: 617600083, 735667703 (2) Severe malnutrition ICD Codes: E43 - Unspecified severe protein-calorie malnutrition SNOMED: 64212350 (3) Dehydration ICD Codes: E86.0 - Dehydration SNOMED: 16568726 Status: stable Status Narrative Discussed with Dr. Cox Assessment/Plan Assessment - Dysphagia - Resp failure - ESRD - Anemia - Status post PEG, tolerating feeds Recommendations 1. Abdominal binder. 2. Elevate the head of the bed at all times. 3. G-tube flush. 4. G-tube care. 5. tube feeding later today per RD to goal Monitor H&H, PRN transfusions PPI Electrolyte correction Follow-up labs The patient was seen and examined at bedside and all new and available data was reviewed in the patients chart. I agree with the above findings, impression and plan. (Patient seen earlier today. Signature stamp does not reflect patient encounter time.). - Oc Cox MD Subjective Subjective limited Objective Last 24 Hour Vital Signs Date Time Temp Pulse Resp B/P (MAP) Pulse Ox O2 Delivery O2 Flow Rate FiO2 09/13/18 12:00 98.1 70 22 130/42 (71) 100 09/13/18 12:00 40 09/13/18 12:00 Mechanical Ventilator Mechanical Ventilator 09/13/18 11:51 117 09/13/18 11:03 110 23 40 09/13/18 08:50 150/65 09/13/18 08:41 129 26 40 09/13/18 08:00 40 09/13/18 08:00 97.5 113 22 150/65 (93) 100 09/13/18 08:00 Mechanical Ventilator Mechanical Ventilator 09/13/18 07:55 122 09/13/18 07:10 120 16 40 09/13/18 05:20 97.3 09/13/18 05:12 119 22 40 09/13/18 04:00 129 09/13/18 04:00 97.3 104 21 103/62 (76) 100 09/13/18 04:00 40 09/13/18 04:00 Mechanical Ventilator Mechanical Ventilator 09/13/18 03:02 111 20 40 09/13/18 01:28 96 19 40 09/13/18 00:00 97.9 119 17 110/82 (91) 100 09/13/18 00:00 Mechanical Ventilator Mechanical Ventilator 09/13/18 00:00 40 09/12/18 23:48 116 09/12/18 20:57 113 24 40 09/12/18 20:35 125/62 09/12/18 20:00 111 09/12/18 20:00 Mechanical Ventilator Mechanical Ventilator 09/12/18 20:00 40 09/12/18 19:15 97.9 119 22 125/62 (83) 100 09/12/18 18:52 121 18 40 09/12/18 18:30 98.1 87 22 111/37 (61) 100 09/12/18 17:25 84 20 40 09/12/18 16:00 Mechanical Ventilator Mechanical Ventilator 09/12/18 16:00 98.5 84 22 132/44 (73) 100 09/12/18 16:00 126 09/12/18 16:00 40 09/12/18 15:07 84 18 40 Intake and Output 09/12/18 09/13/18 19:00 07:00 Intake Total 640 ml 665 ml Output Total 40 ml 100 ml Balance 600 ml 565 ml Free Water 160 ml 90 ml IV Total 55 ml Tube Feeding 480 ml 520 ml Stool Total 40 ml 100 ml # Voids 2 Laboratory Tests Test 09/12/18 14:18 09/13/18 03:15 White Blood Count 6.9 K/UL (4.8-10.8) 8.0 K/UL (4.8-10.8) Red Blood Count 2.20 M/UL (4.20-5.40) L 2.83 M/UL (4.20-5.40) L Hemoglobin 6.6 G/DL (12.0-16.0) *L 8.6 G/DL (12.0-16.0) #L Hematocrit 20.8 % (37.0-47.0) L 26.8 % (37.0-47.0) L Mean Corpuscular Volume 95 FL (80-99) 95 FL (80-99) Mean Corpuscular Hemoglobin 29.8 PG (27.0-31.0) 30.2 PG (27.0-31.0) Mean Corpuscular Hemoglobin Concent 31.5 G/DL (32.0-36.0) L 31.9 G/DL (32.0-36.0) L Red Cell Distribution Width 17.0 % (11.6-14.8) H 16.2 % (11.6-14.8) H Platelet Count 421 K/UL (150-450) 432 K/UL (150-450) Mean Platelet Volume 5.9 FL (6.5-10.1) L 6.0 FL (6.5-10.1) L Neutrophils (%) (Auto) % (45.0-75.0) 79.1 % (45.0-75.0) H Lymphocytes (%) (Auto) % (20.0-45.0) 7.1 % (20.0-45.0) L Monocytes (%) (Auto) % (1.0-10.0) 9.8 % (1.0-10.0) Eosinophils (%) (Auto) % (0.0-3.0) 2.6 % (0.0-3.0) Basophils (%) (Auto) % (0.0-2.0) 1.4 % (0.0-2.0) Differential Total Cells Counted 100 Neutrophils % (Manual) 83 % (45-75) H Lymphocytes % (Manual) 5 % (20-45) L Monocytes % (Manual) 8 % (1-10) Eosinophils % (Manual) 2 % (0-3) Basophils % (Manual) 1 % (0-2) Band Neutrophils 1 % (0-8) Platelet Estimate Adequate Platelet Morphology Normal Hypochromasia 2+ Anisocytosis 2+ Sodium Level 135 MMOL/L (136-145) L 136 MMOL/L (136-145) Potassium Level 4.4 MMOL/L (3.5-5.1) 4.1 MMOL/L (3.5-5.1) Chloride Level 99 MMOL/L (98-107) 99 MMOL/L (98-107) Carbon Dioxide Level 30 MMOL/L (21-32) 31 MMOL/L (21-32) Anion Gap 6 mmol/L (5-15) 6 mmol/L (5-15) Blood Urea Nitrogen 69 mg/dL (7-18) H 34 mg/dL (7-18) H Creatinine 2.4 MG/DL (0.55-1.30) H 1.4 MG/DL (0.55-1.30) H Estimat Glomerular Filtration Rate mL/min (>60) mL/min (>60) Glucose Level 132 MG/DL (74-106) H 116 MG/DL (74-106) H Calcium Level 9.0 MG/DL (8.5-10.1) 9.1 MG/DL (8.5-10.1) Height (Feet): 5 Height (Inches): 2.00 Weight (Pounds): 124 General Appearance: WD/WN, no apparent distress, alert Cardiovascular: normal rate Respiratory/Chest: normal breath sounds, no respiratory distress, other - Mechanical ventilator Abdominal Exam: normal bowel sounds, non tender, soft, GT site - Clean dry and intact Extremities: non-tender Rita Quintanilla NP Sep 13, 2018 13:47
--- NOTE | 2018-09-13 14:08 | NUR ---
NURSE NOTES:WOUND CARE FOLLOW-UP NOTES: Pt with scattered senile purpuras bilat upper and bilat lower ext.Full thickness sacral pressure injury with significant undermining into L gluteus (L)2.5cm x (W)3cm x(D)0.7cm ,undermining 11-7 by 11.3cm @11o'clock.Minimal non-odorous serous exudate noted. Non-blanchable erythema noted to R and L buttocks with incontinence associated dermatitis R ischium and R groin areas. Full thickness ulcer R tibia with 90% fibrinous slough 10% granular and moist .Periwound without erythema. Reabsorbed blood blister with dry eschar L hallux(L)1.5cm x (W)0.5cm .Periwound without erythema or induration.Full thickness pressure injury medial R malleolus with bone visible at base of wound with surrounding granulation,edges adherent and flat to base of wound. Periwound without erythema or induration.No odor noted. Resolving full thickness pressure plantar/ medial R heel with 90% loose fibrinous slough 10% granular (+) maceration along edges periwound dry and intact.(L)1.5cm x (W)2cm . Full thickness ulcer lateral R tibia with 80% biofilm ,(+) maceration along edges. NO odor noted . Tx.Plan:Cleanse Sacral wound with Saline.Loosely pack with Plain Packing strip impregnated with Silvasorb Gel .Apply Moisture Barrier Paste Periwound ,R and L buttocks. Cover with Optifoam drsg every 3 days and PRN. Apply Moisture Barrier Paste to bilat grin and bilat ischial regions each shift. Continue wound care orders to bilat lower ext as per Podiatry orders. Reposition at least every 2 hours or as tolerated. off-load heels with pillows.
--- NOTE | 2018-09-13 14:16 | Cardiology Progress Note ---
Assessment/Plan Assessment/Plan 1. Hypotension, resolved 2. Paroxysmal episodes of atrial fibrillation history. 3. Bradycardia secondary to medications, amiodarone possibly. 4. Diabetes mellitus. 5. End-stage renal disease, on hemodialysis. 6. Lung collapse. 7. Respiratory failure, status post intubation. 8. Dysphagia. 9. History of dementia. 10. Pulm htn 11. Pleural effusion 12. cardaic arrest 13. chest wall pain post cpr 14. hyponatremai 15. anemia mostly in sinus now amiod 200 mg daily vent support s/p trach peg done on minoxidl and hold parameter applied on elequis 2.5 mg bid for stroke prevention check stool ob and iron /tibc if stool ob + will need to dc anticoagualtion in light of recurrent anemia s/p prbc tx son wishes pt to be medicated for anxiety Subjective ROS Limited/Unobtainable: Yes Subjective on the vent Objective Last 24 Hour Vital Signs Date Time Temp Pulse Resp B/P (MAP) Pulse Ox O2 Delivery O2 Flow Rate FiO2 09/13/18 13:47 134 18 40 09/13/18 12:00 98.1 70 22 130/42 (71) 100 09/13/18 12:00 40 09/13/18 12:00 Mechanical Ventilator Mechanical Ventilator 09/13/18 11:51 117 09/13/18 11:03 110 23 40 09/13/18 08:50 150/65 09/13/18 08:41 129 26 40 09/13/18 08:00 40 09/13/18 08:00 97.5 113 22 150/65 (93) 100 09/13/18 08:00 Mechanical Ventilator Mechanical Ventilator 09/13/18 07:55 122 09/13/18 07:10 120 16 40 09/13/18 05:20 97.3 09/13/18 05:12 119 22 40 09/13/18 04:00 129 09/13/18 04:00 97.3 104 21 103/62 (76) 100 09/13/18 04:00 40 09/13/18 04:00 Mechanical Ventilator Mechanical Ventilator 09/13/18 03:02 111 20 40 09/13/18 01:28 96 19 40 09/13/18 00:00 97.9 119 17 110/82 (91) 100 09/13/18 00:00 Mechanical Ventilator Mechanical Ventilator 09/13/18 00:00 40 09/12/18 23:48 116 09/12/18 20:57 113 24 40 09/12/18 20:35 125/62 09/12/18 20:00 111 09/12/18 20:00 Mechanical Ventilator Mechanical Ventilator 09/12/18 20:00 40 09/12/18 19:15 97.9 119 22 125/62 (83) 100 09/12/18 18:52 121 18 40 09/12/18 18:30 98.1 87 22 111/37 (61) 100 09/12/18 17:25 84 20 40 09/12/18 16:00 Mechanical Ventilator Mechanical Ventilator 09/12/18 16:00 98.5 84 22 132/44 (73) 100 09/12/18 16:00 126 09/12/18 16:00 40 09/12/18 15:07 84 18 40 General Appearance: no apparent distress, on vent, patient on isolation Intake and Output 09/12/18 09/13/18 19:00 07:00 Intake Total 640 ml 665 ml Output Total 40 ml 100 ml Balance 600 ml 565 ml Free Water 160 ml 90 ml IV Total 55 ml Tube Feeding 480 ml 520 ml Stool Total 40 ml 100 ml # Voids 2 Laboratory Tests Test 09/12/18 14:18 09/13/18 03:15 White Blood Count 6.9 K/UL (4.8-10.8) 8.0 K/UL (4.8-10.8) Red Blood Count 2.20 M/UL (4.20-5.40) L 2.83 M/UL (4.20-5.40) L Hemoglobin 6.6 G/DL (12.0-16.0) *L 8.6 G/DL (12.0-16.0) #L Hematocrit 20.8 % (37.0-47.0) L 26.8 % (37.0-47.0) L Mean Corpuscular Volume 95 FL (80-99) 95 FL (80-99) Mean Corpuscular Hemoglobin 29.8 PG (27.0-31.0) 30.2 PG (27.0-31.0) Mean Corpuscular Hemoglobin Concent 31.5 G/DL (32.0-36.0) L 31.9 G/DL (32.0-36.0) L Red Cell Distribution Width 17.0 % (11.6-14.8) H 16.2 % (11.6-14.8) H Platelet Count 421 K/UL (150-450) 432 K/UL (150-450) Mean Platelet Volume 5.9 FL (6.5-10.1) L 6.0 FL (6.5-10.1) L Neutrophils (%) (Auto) % (45.0-75.0) 79.1 % (45.0-75.0) H Lymphocytes (%) (Auto) % (20.0-45.0) 7.1 % (20.0-45.0) L Monocytes (%) (Auto) % (1.0-10.0) 9.8 % (1.0-10.0) Eosinophils (%) (Auto) % (0.0-3.0) 2.6 % (0.0-3.0) Basophils (%) (Auto) % (0.0-2.0) 1.4 % (0.0-2.0) Differential Total Cells Counted 100 Neutrophils % (Manual) 83 % (45-75) H Lymphocytes % (Manual) 5 % (20-45) L Monocytes % (Manual) 8 % (1-10) Eosinophils % (Manual) 2 % (0-3) Basophils % (Manual) 1 % (0-2) Band Neutrophils 1 % (0-8) Platelet Estimate Adequate Platelet Morphology Normal Hypochromasia 2+ Anisocytosis 2+ Sodium Level 135 MMOL/L (136-145) L 136 MMOL/L (136-145) Potassium Level 4.4 MMOL/L (3.5-5.1) 4.1 MMOL/L (3.5-5.1) Chloride Level 99 MMOL/L (98-107) 99 MMOL/L (98-107) Carbon Dioxide Level 30 MMOL/L (21-32) 31 MMOL/L (21-32) Anion Gap 6 mmol/L (5-15) 6 mmol/L (5-15) Blood Urea Nitrogen 69 mg/dL (7-18) H 34 mg/dL (7-18) H Creatinine 2.4 MG/DL (0.55-1.30) H 1.4 MG/DL (0.55-1.30) H Estimat Glomerular Filtration Rate mL/min (>60) mL/min (>60) Glucose Level 132 MG/DL (74-106) H 116 MG/DL (74-106) H Calcium Level 9.0 MG/DL (8.5-10.1) 9.1 MG/DL (8.5-10.1) Angelo Bulter MD Sep 13, 2018 14:16
--- NOTE | 2018-09-13 14:17 | NUR ---
NURSE NOTES: Left Dr. Smith a message regarding about Negro (son)'s request to speak to him in person about patient's overall condition and gave him son's call back number. Also, informed Dr. Smith if [place] 5/325mg 1 tab GT Q6H PRN for pain can be renewed. Gave call back number to 2W and awaiting for his call.
--- NOTE | 2018-09-13 14:22 | NUR ---
Rehab P.T Notes: late entry 1005 P.T evaluation completed and treatment initiated. Please refer to P.T evaluation for current functional status. Pt received at bedside with caregiver present. Pt is alert , oriented to self and place, not time. Pt follows commands appropriately and cooperative. Pt c/o lower back and B feet pain 5/10 aggravated however agreeable to participate in P.T evaluation and tx. Pt is limited by generalized weakness and decreased activity tolerance due deconditioned state. Pt currently require MAX A X 1 for bed mobilities and MAX A X 2 for transfer activities. Pt was only able to stand with hand held/MAX support x2 however unable to ambulate at this time. Skilled P.T service is warranted to improve strength , endurance and balance to increase activity tolerance and functional mobility independence during stay. Recommend SNF for further rehab or home with 25 hr caregiver and P.T follow up. Thank you for this referral. Addendum: 09/13/18 at 1434 by CLARK SNOW PT NOTE CORRECTION: PLEASE DISREGARD THE P.T ABOVE NOTES. WRONG ENTRY!
[2018-09-13 15:03] LABS: % IRON SATURATION 50 % (15-50); IRON 51 ug/dL (50-175); TOTAL IRON BINDING CAPACITY 102 ug/dL (250-450)
--- NOTE | 2018-09-13 15:06 | NUR ---
CASE MANAGEMENT: REVIEW SI: ESRD ON HD TRACHEOSTOMY 08/15 PEG PLACEMENT 08/17 T 98.1 HR 134 RR 26 BP 150/65 SAT 100% MECH VENT FIO2 40 H/H 8.6/26.8 BUN 34 CR 1.4 IS: MEROPENEM IV QD AMIODARONE GT QD MINOXIDIL GT Q12HR ELEQUIS GT BID GT FEEDING NEPRO @ 40ML/HR HD PRN STEP DOWN UNIT STATUS DCP: PATIENT IS FROM [facility]. PATIENT REFERRED TO [facility]. [facility] WILL NOT ACCEPT PATIENT WITHOUT CHAIR TIME AT DIALYSIS CENTER. PATIENT REFERRED TO .[facility]. AWAITING CHAIR TIME AT DIALYSIS CENTER.
--- NOTE | 2018-09-13 15:20 | NUR ---
CASE MANAGEMENT: DCPNOTE UPON DISCHARGE PATIENT WILL TRANSFER TO [facility] [phone] [facility] [phone] IN AGREEMENT WITH PATIENT TRANSFERRING TO THIS FACILITY
--- NOTE | 2018-09-13 15:36 | NUR ---
DIALYSIS CHAIR TIME: ROBYN @5PM .[place] [id number]. [facility] [id number] TRANSPORTATION: [facility] [phone] FAX
[2018-09-13] MEDS: LORazepam 0.5mg tab GT PRN ×2 (15:53→20:35)
[2018-09-13 16:00] VITALS: BP 144/70
--- NOTE | 2018-09-13 16:34 | Nephrology Progress Note ---
Assessment/Plan Assessment Seee below Plan ESRD HD q MWF Anemia of CKD , DARRYN high dose. A. 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 with LAE. LVEF 65% . On Eliquis. Post trach + PEG . Referred to [facility]. Pt's son agreeable to [facility]. Referred again. See orders. Still needs extensive Vascular W/U. Was transfused on HD. Subjective Subjective Very anxious! Objective Objective Last 24 Hour Vital Signs Date Time Temp Pulse Resp B/P (MAP) Pulse Ox O2 Delivery O2 Flow Rate FiO2 09/13/18 15:41 114 09/13/18 15:21 122 19 40 09/13/18 13:47 134 18 40 09/13/18 12:00 98.1 70 22 130/42 (71) 100 09/13/18 12:00 40 09/13/18 12:00 Mechanical Ventilator Mechanical Ventilator 09/13/18 11:51 117 09/13/18 11:03 110 23 40 09/13/18 08:50 150/65 09/13/18 08:41 129 26 40 09/13/18 08:00 40 09/13/18 08:00 97.5 113 22 150/65 (93) 100 09/13/18 08:00 Mechanical Ventilator Mechanical Ventilator 09/13/18 07:55 122 09/13/18 07:10 120 16 40 09/13/18 05:20 97.3 09/13/18 05:12 119 22 40 09/13/18 04:00 129 09/13/18 04:00 97.3 104 21 103/62 (76) 100 09/13/18 04:00 40 09/13/18 04:00 Mechanical Ventilator Mechanical Ventilator 09/13/18 03:02 111 20 40 09/13/18 01:28 96 19 40 09/13/18 00:00 97.9 119 17 110/82 (91) 100 09/13/18 00:00 Mechanical Ventilator Mechanical Ventilator 09/13/18 00:00 40 09/12/18 23:48 116 09/12/18 20:57 113 24 40 09/12/18 20:35 125/62 09/12/18 20:00 111 09/12/18 20:00 Mechanical Ventilator Mechanical Ventilator 09/12/18 20:00 40 09/12/18 19:15 97.9 119 22 125/62 (83) 100 09/12/18 18:52 121 18 40 09/12/18 18:30 98.1 87 22 111/37 (61) 100 09/12/18 17:25 84 20 40 Intake and Output 09/12/18 09/13/18 19:00 07:00 Intake Total 640 ml 665 ml Output Total 40 ml 100 ml Balance 600 ml 565 ml Free Water 160 ml 90 ml IV Total 55 ml Tube Feeding 480 ml 520 ml Stool Total 40 ml 100 ml # Voids 2 Laboratory Tests 09/13/18 03:15: White Blood Count 8.0, Red Blood Count 2.83L, Hemoglobin 8.6#L, Hematocrit 26.8L , Mean Corpuscular Volume 95, Mean Corpuscular Hemoglobin 30.2, Mean Corpuscular Hemoglobin Concent 31.9L, Red Cell Distribution Width 16.2H, Platelet Count 432, Mean Platelet Volume 6.0L, Neutrophils (%) (Auto) 79.1H, Lymphocytes (%) (Auto) 7.1L, Monocytes (%) (Auto) 9.8, Eosinophils (%) (Auto) 2.6, Basophils (%) (Auto) 1.4, Sodium Level 136, Potassium Level 4.1, Chloride Level 99, Carbon Dioxide Level 31, Anion Gap 6, Blood Urea Nitrogen 34H, Creatinine 1.4H, Estimat Glomerular Filtration Rate , Glucose Level 116H, Calcium Level 9.1, Iron Level 51, Total Iron Binding Capacity 102L, Percent Iron Saturation 50, Unsaturated Iron Binding 51L Height (Feet): 5 Height (Inches): 2.00 Weight (Pounds): 124 Objective On vent. Trach clean. Cv IRR/IRR Lungs B ronchi. Abd SNT. BS + PEG. E Rt. foot diabetic ulcers Chase He MD Sep 13, 2018 16:34
--- NOTE | 2018-09-13 19:00 | NUR ---
HAND-OFF: Report given to BALDO Kent. Patient stable and in no distress.
--- NOTE | 2018-09-13 19:30 | NUR ---
NURSE NOTES: Recvd.on a vent.TRACHE see settings.Lungs few scatt.Rh.Diminished BS at Bases.P.Ox-98-100%.Suctioned tk yellowish sec.NS Lavaged.GT-Feeding in progress.Res.-0.Anuric HD pt.Renetta.for HD in am.AVF (L) arm pos.thrill/Bruit.See I/O.
[2018-09-13] MEDS: Dyna-Hex 2% Top Sol 2oz TOPIC SCH (19:40)
[2018-09-13 20:00] VITALS: BP 145/73
[2018-09-13] MEDS ORDERED: Meropenem 500 MG in NS 55 ML IVPB SCH (21:00)
--- NOTE | 2018-09-13 21:00 | NUR ---
NURSE NOTES: Anxious/apprehensive c/o abd'l.pain.Medicated.Pos chg.Kept comfortable.Due meds admin.
[2018-09-14] VITALS: BP 151/81
--- NOTE | 2018-09-14 | Consultation ---
History of Present Illness General Chief Complaint: Altered Mental Status Reason for Consultation: venous access, critical care Present Illness HPI 78-year-old female, who was admitted to [facility] for pyelonephritis and altered mental status. The pt is agitated and confused. in restraints. The pt is easily agitated Allergies: Coded Allergies: No Known Allergies (Unverified , 07/25/18) Medication History Scheduled Alprazolam* (Xanax*), 1 MG ORAL TID, (Reported) Amino Acids/Protein Hydrolys (Pro-Stat Liquid), 30 ML ORAL TWICE A DAY, ( Reported) Amiodarone Hcl* (Amiodarone Hcl*), 200 MG ORAL EVERY 12 HOURS, (Reported) Amiodarone Hcl* (Pacerone*), 200 MG GT DAILY Apixaban (Eliquis), 2.5 MG GT BID Ascorbic Acid* (Vitamin C*), 500 MG ORAL DAILY, (Reported) Docusate Sodium* (Docusate Sodium*), 100 MG ORAL TWICE A DAY, (Reported) Epoetin Paul (Procrit), 10,000 UNITS SUBQ WED-WED-WED Gabapentin* (Gabapentin*), 300 MG ORAL BEDTIME, (Reported) Lansoprazole* (Lansoprazole*), 30 MG GT Q12HR Metoprolol Tartrate* (Metoprolol Tartrate*), 50 MG ORAL EVERY 12 HOURS, ( Reported) Minoxidil (Minoxidil), 2.5 MG GT Q12HR Mupirocin* (Mupirocin*), 1 APPLIC TOPIC THREE TIMES A DAY, (Reported) Pantoprazole* (Pantoprazole*), 40 MG ORAL DAILY, (Reported) Quetiapine Fumarate* (Seroquel*), 25 MG ORAL EVERY 6 HOURS Sertraline Hcl* (Sertraline Hcl*), 100 MG ORAL DAILY, (Reported) Sevelamer Carbonate* (Renvela*), 800 MG ORAL THREE TIMES A DAY, (Reported) Scheduled PRN Acetaminophen* (Acetaminophen 325MG Tablet*), 650 MG ORAL Q4H PRN for Pain Scale (3-5), (Reported) Dextran 70/Hypromellose (Artificial Tears Eye Drops*), 1 DROP BOTH EYES Q4H PRN Hydrocodone Bit/Acetaminophen 5-325* ([place] 5-325*), 1 TAB GT Q6H PRN Zolpidem Tartrate* (Ambien*), 5 MG ORAL HSPRN PRN [Acetaminophen], 650 MG GT Q6H PRN Miscellaneous Medications Apixaban (Eliquis), 2.5 MG PO, (Reported) Sennosides/Docusate Sodium (Senna Laxative Tablet), 2 EACH PO, (Reported) Patient History Limited by: medical condition History Provided By: Medical Record, PMD Healthcare decision maker SOLE SOTO Resuscitation status Full Code Advanced Directive on File Yes Past Medical/Surgical History Past Medical/Surgical History: (1) Bradycardia (2) Sepsis (3) Hypotension (4) ESRD (end stage renal disease) (5) Hypoalbuminemia (6) Decubital ulcer (7) Paroxysmal A-fib (8) Dehydration (9) Severe malnutrition (10) Encounter for PEG (percutaneous endoscopic gastrostomy) (11) Encephalopathy chronic Review of Systems Psychiatric: Reports: anxiety, emotional problems, hallucinations Physical Exam General Appearance: alert, confused, agitated, obese Last 24 Hour Vital Signs Date Time Temp Pulse Resp B/P (MAP) Pulse Ox O2 Delivery O2 Flow Rate FiO2 09/13/18 22:55 102 18 40 09/13/18 21:30 104 18 40 09/13/18 21:10 98.3 09/13/18 20:34 145/73 09/13/18 20:00 Mechanical Ventilator Mechanical Ventilator 09/13/18 20:00 115 09/13/18 20:00 98.4 115 18 145/73 (97) 98 09/13/18 20:00 40 09/13/18 19:29 109 20 40 09/13/18 17:15 75 16 40 09/13/18 16:00 Mechanical Ventilator Mechanical Ventilator 09/13/18 16:00 40 09/13/18 16:00 97.9 115 20 144/70 (94) 100 09/13/18 15:41 114 09/13/18 15:21 122 19 40 09/13/18 13:47 134 18 40 09/13/18 12:00 98.1 70 22 130/42 (71) 100 09/13/18 12:00 40 09/13/18 12:00 Mechanical Ventilator Mechanical Ventilator 09/13/18 11:51 117 09/13/18 11:03 110 23 40 09/13/18 08:50 150/65 09/13/18 08:41 129 26 40 09/13/18 08:00 40 09/13/18 08:00 97.5 113 22 150/65 (93) 100 09/13/18 08:00 Mechanical Ventilator Mechanical Ventilator 09/13/18 07:55 122 09/13/18 07:10 120 16 40 09/13/18 05:20 97.3 09/13/18 05:12 119 22 40 09/13/18 04:00 129 09/13/18 04:00 97.3 104 21 103/62 (76) 100 09/13/18 04:00 40 09/13/18 04:00 Mechanical Ventilator Mechanical Ventilator 09/13/18 03:02 111 20 40 09/13/18 01:28 96 19 40 Intake and Output 09/13/18 09/14/18 19:00 07:00 Intake Total 615 ml Balance 615 ml Free Water 60 ml IV Total 115 ml Tube Feeding 440 ml # Voids 2 # Bowel Movements 100 Laboratory Tests Test 09/13/18 03:15 09/13/18 18:00 White Blood Count 8.0 K/UL (4.8-10.8) Red Blood Count 2.83 M/UL (4.20-5.40) L Hemoglobin 8.6 G/DL (12.0-16.0) #L Hematocrit 26.8 % (37.0-47.0) L Mean Corpuscular Volume 95 FL (80-99) Mean Corpuscular Hemoglobin 30.2 PG (27.0-31.0) Mean Corpuscular Hemoglobin Concent 31.9 G/DL (32.0-36.0) L Red Cell Distribution Width 16.2 % (11.6-14.8) H Platelet Count 432 K/UL (150-450) Mean Platelet Volume 6.0 FL (6.5-10.1) L Neutrophils (%) (Auto) 79.1 % (45.0-75.0) H Lymphocytes (%) (Auto) 7.1 % (20.0-45.0) L Monocytes (%) (Auto) 9.8 % (1.0-10.0) Eosinophils (%) (Auto) 2.6 % (0.0-3.0) Basophils (%) (Auto) 1.4 % (0.0-2.0) Sodium Level 136 MMOL/L (136-145) Potassium Level 4.1 MMOL/L (3.5-5.1) Chloride Level 99 MMOL/L (98-107) Carbon Dioxide Level 31 MMOL/L (21-32) Anion Gap 6 mmol/L (5-15) Blood Urea Nitrogen 34 mg/dL (7-18) H Creatinine 1.4 MG/DL (0.55-1.30) H Estimat Glomerular Filtration Rate mL/min (>60) Glucose Level 116 MG/DL (74-106) H Calcium Level 9.1 MG/DL (8.5-10.1) Iron Level 51 ug/dL (50-175) Total Iron Binding Capacity 102 ug/dL (250-450) L Percent Iron Saturation 50 % (15-50) Unsaturated Iron Binding 51 ug/dL (112-346) L Stool Occult Blood Pending Height (Feet): 5 Height (Inches): 2.00 Weight (Pounds): 124 Medications Current Medications Medications (Trade) Dose Ordered Sig/Renetta Route PRN Reason Start Time Stop Time Status Last Admin Dose Admin Acetaminophen (Tylenol) 650 mg Q6H PRN GT Mild Pain/Temp > 100.5 08/21/18 16:00 09/18/18 15:59 09/08/18 08:49 Acetaminophen/ Hydrocodone Bitart ([place] 5/325) 1 tab Q6H PRN GT For Pain 09/13/18 16:45 09/20/18 16:44 09/13/18 20:37 Amiodarone HCl (Cordarone) 200 mg DAILY GT 08/31/18 09:00 09/24/18 20:59 09/13/18 08:51 Apixaban (Eliquis) 2.5 mg BID GT 08/25/18 18:00 09/24/18 17:59 09/13/18 17:44 Artificial Tears (Akwa-Tears) 1 drop Q4H PRN BOTH EYES Dry Eyes 08/21/18 15:30 09/19/18 15:29 08/30/18 16:53 Chlorhexidine Gluconate (Rylie-Hex 2%) 1 applic DAILY@2000 TOPIC 08/28/18 20:00 09/27/18 19:59 09/13/18 19:40 Collagenase (Santyl) 1 applic DAILY TOPIC 09/05/18 21:00 10/05/18 08:59 09/13/18 09:20 Epoetin Paul (Procrit (for ESRD on dialysis)) 10,000 units WED-WED-WED SUBQ 09/12/18 21:00 10/12/18 20:59 09/12/18 20:34 Iron Sucrose 100 mg/Sodium Chloride 60 ml @ 240 mls/hr DAILY IV 09/13/18 09:00 09/15/18 09:14 09/13/18 09:39 Lansoprazole (Prevacid) 30 mg Q12HR GT 08/25/18 21:00 09/24/18 20:59 09/13/18 20:34 Lorazepam (Ativan) 0.5 mg Q6H PRN GT For Anxiety 09/13/18 15:45 09/19/18 15:44 09/13/18 20:35 Meropenem 500 mg/ Sodium Chloride 55 ml @ 110 mls/hr DAILY IVPB 09/14/18 09:00 09/15/18 23:59 Minoxidil (Loniten) 2.5 mg Q12HR GT 08/25/18 21:00 09/24/18 20:59 09/13/18 20:34 Sodium Chloride 1,000 ml @ 500 mls/hr Q2H PRN IVLG sbp<90 during hd 09/13/18 16:43 10/13/18 16:42 Sodium Chloride ([place] Nasal [place]) 1 spray Q4H PRN NASAL dry nose 08/21/18 14:30 09/19/18 18:29 09/10/18 08:35 Zolpidem Tartrate (Ambien) 5 mg HSPRN PRN ORAL Insomnia 09/09/18 08:00 09/16/18 07:59 09/12/18 04:12 Assessment/Plan Problem List: (1) Dementia with behavioral disturbance ICD Codes: F03.91 - Unspecified dementia with behavioral disturbance SNOMED: 9049810985472 (2) Encephalopathy chronic ICD Codes: G93.49 - Other encephalopathy SNOMED: 36857725 Status: stable, progressing Assessment/Plan cont Ativan Seroquel standing provided ro/Sophia Swan MD Sep 14, 2018 00:00
[2018-09-14 04:00] VITALS: BP 144/76
--- NOTE | 2018-09-14 04:00 | NUR ---
NURSE NOTES: Slept well.Pos. chg q2hrs.jackie Mccall chg.Blood draw for cbc/bmp spec.to Lab.Cont.Monitoring.Kenneth.Vent settings.Suctioned PRN.P.OX-98-100%
[2018-09-14 05:46] LABS: BASOPHILS % (AUTO) 1.4 % (0.0-2.0); EOSINOPHILS % (AUTO) 2.9 % (0.0-3.0); HEMATOCRIT 26.6 % (37.0-47.0); HEMOGLOBIN 8.5 G/DL (12.0-16.0); LYMPHOCYTES % (AUTO) 6.5 % (20.0-45.0); MEAN CORPUSCULAR VOLUME 96 FL (80-99); MONOCYTES % (AUTO) 9.3 % (1.0-10.0); PLATELET COUNT 437 K/UL (150-450); RED BLOOD COUNT 2.77 M/UL (4.20-5.40); RED CELL DISTRIBUTION WIDTH 15.8 % (11.6-14.8); WHITE BLOOD COUNT 9.4 K/UL (4.8-10.8)
[2018-09-14 06:30] LABS: ANION GAP 5 mmol/L (5-15); BLOOD UREA NITROGEN 44 mg/dL (7-18); CALCIUM 9.6 MG/DL (8.5-10.1); CARBON DIOXIDE 32 MMOL/L (21-32); CHLORIDE 98 MMOL/L (98-107); CREATININE 1.8 MG/DL (0.55-1.30); POTASSIUM 4.1 MMOL/L (3.5-5.1); SODIUM 135 MMOL/L (136-145)
--- NOTE | 2018-09-14 07:15 | NUR ---
HAND-OFF: Report given to BALDO WIGGINS.
--- NOTE | 2018-09-14 07:16 | NUR ---
NURSE NOTES: Received patient from BALDO Kent. Patient in bed and able to open her eyes. Trach to vent dependent with Shiley 8 AC 8 TV 450 Fi02 40 Peep 5. property assessment monitor in placed. Gtube feeding Nephro 1.8 at 40 cc/hour. Rectal tube in placed. FLACO midline and SHARON shunt are asymptomatic. On bilateral soft wrist restraints. Bed in lowest position with side rails up. Will continue to follow plan of care.
--- NOTE | 2018-09-14 07:27 | NUR ---
Received Patient on Vent Settings of ACVC RR 8, VT 450, FIO2 40%, PEEP +5. Patient has Shiley 8 tracheostomy tube that is secure and patent. Pt is alert and awake. Bilateral rhonchi heard upon auscultation. Suction minimal amounts of thin, clear secretions. Vent plugged into red outlet. Will continue to monitor throughout the day.
--- NOTE | 2018-09-14 07:29 | NUR ---
NURSE NOTES: Called [facility] and spoke to Marly to confirm that they will be coming today to do the dialysis. Awaiting for confirmation from HD Nurse.
[2018-09-14 08:00] VITALS: BP 110/69
[2018-09-14] MEDS: Meropenem 500 MG in NS 55 ML IVPB SCH (08:23)
[2018-09-14] MEDS: Amiodarone 200mg tab GT SCH (08:42)
[2018-09-14] MEDS: Eliquis 2.5mg tablet GT SCH ×2 (08:42→17:25)
[2018-09-14] MEDS: Minoxidil 2.5mg tab GT SCH ×2 (08:42→20:47)
[2018-09-14] MEDS: Iron Sucrose 100 MG in NS 55 ML IV SCH (09:30)
--- NOTE | 2018-09-14 10:35 | NUR ---
NURSE NOTES: Did not receive call back from HD nurse. Called [facility] again and spoke to Guerda and she said she will relay the message to the HD nurse. Awaiting for call back.
--- NOTE | 2018-09-14 10:39 | NUR ---
NURSE NOTES: Received a call from HD Nurse ([facility]) and confirmed dialysis today.
--- NOTE | 2018-09-14 10:40 | Infectious Diseases Prog Note ---
Assessment/Plan Assessment/Plan antibiotics : meropenem A 1. e.coli UTI 2. pseudomonas pneumonia 3. leucocytosis resolved 4. respiratory failure s/p tracheostomy 5. renal failure 6. 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 pleural effusion P 1. continue iv meropenem 1 more day 2. will follow up cultures Subjective ROS Limited/Unobtainable: Yes Allergies: Coded Allergies: No Known Allergies (Unverified , 07/25/18) Objective Vital Signs Last 24 Hour Vital Signs Date Time Temp Pulse Resp B/P (MAP) Pulse Ox O2 Delivery O2 Flow Rate FiO2 09/14/18 08:48 95 18 40 09/14/18 08:42 110/69 09/14/18 08:00 40 09/14/18 08:00 Mechanical Ventilator Mechanical Ventilator 09/14/18 08:00 98.6 99 24 110/69 (83) 95 09/14/18 07:43 100 09/14/18 06:53 97 12 40 09/14/18 05:25 99 20 40 09/14/18 04:00 97.4 88 19 144/76 (98) 99 09/14/18 04:00 Mechanical Ventilator Mechanical Ventilator 09/14/18 04:00 80 09/14/18 04:00 40 09/14/18 03:10 80 17 40 09/14/18 00:53 78 15 40 09/14/18 00:00 98.7 88 17 151/81 (104) 100 09/14/18 00:00 Mechanical Ventilator Mechanical Ventilator 09/14/18 00:00 40 09/14/18 00:00 88 09/13/18 22:55 102 18 40 09/13/18 21:30 104 18 40 09/13/18 21:10 98.3 09/13/18 20:34 145/73 09/13/18 20:00 Mechanical Ventilator Mechanical Ventilator 09/13/18 20:00 115 09/13/18 20:00 98.4 115 18 145/73 (97) 98 09/13/18 20:00 40 09/13/18 19:29 109 20 40 09/13/18 17:15 75 16 40 09/13/18 16:00 Mechanical Ventilator Mechanical Ventilator 09/13/18 16:00 40 09/13/18 16:00 97.9 115 20 144/70 (94) 100 09/13/18 15:41 114 09/13/18 15:21 122 19 40 09/13/18 13:47 134 18 40 09/13/18 12:00 98.1 70 22 130/42 (71) 100 09/13/18 12:00 40 09/13/18 12:00 Mechanical Ventilator Mechanical Ventilator 09/13/18 11:51 117 09/13/18 11:03 110 23 40 Height (Feet): 5 Height (Inches): 2.00 Weight (Pounds): 122 HEENT: status post trach Respiratory/Chest: lungs clear Cardiovascular: normal rate, regular rhythm, no gallop/murmur Abdomen: soft, non tender, other - GT Extremities: no edema, other - right arm PICC Laboratory Tests Test 09/13/18 18:00 09/14/18 04:00 Stool Occult Blood Pending White Blood Count 9.4 K/UL (4.8-10.8) Red Blood Count 2.77 M/UL (4.20-5.40) L Hemoglobin 8.5 G/DL (12.0-16.0) L Hematocrit 26.6 % (37.0-47.0) L Mean Corpuscular Volume 96 FL (80-99) Mean Corpuscular Hemoglobin 30.6 PG (27.0-31.0) Mean Corpuscular Hemoglobin Concent 31.9 G/DL (32.0-36.0) L Red Cell Distribution Width 15.8 % (11.6-14.8) H Platelet Count 437 K/UL (150-450) Mean Platelet Volume 5.4 FL (6.5-10.1) L Neutrophils (%) (Auto) 80.0 % (45.0-75.0) H Lymphocytes (%) (Auto) 6.5 % (20.0-45.0) L Monocytes (%) (Auto) 9.3 % (1.0-10.0) Eosinophils (%) (Auto) 2.9 % (0.0-3.0) Basophils (%) (Auto) 1.4 % (0.0-2.0) Sodium Level 135 MMOL/L (136-145) L Potassium Level 4.1 MMOL/L (3.5-5.1) Chloride Level 98 MMOL/L (98-107) Carbon Dioxide Level 32 MMOL/L (21-32) Anion Gap 5 mmol/L (5-15) Blood Urea Nitrogen 44 mg/dL (7-18) H Creatinine 1.8 MG/DL (0.55-1.30) H Estimat Glomerular Filtration Rate mL/min (>60) Glucose Level 90 MG/DL (74-106) Calcium Level 9.6 MG/DL (8.5-10.1) Current Medications Medications (Trade) Dose Ordered Sig/Renetta Route PRN Reason Start Time Stop Time Status Last Admin Dose Admin Acetaminophen (Tylenol) 650 mg Q6H PRN GT Mild Pain/Temp > 100.5 08/21/18 16:00 09/18/18 15:59 09/08/18 08:49 Acetaminophen/ Hydrocodone Bitart ([place] 5/325) 1 tab Q6H PRN GT For Pain 09/13/18 16:45 09/20/18 16:44 09/13/18 20:37 Amiodarone HCl (Cordarone) 200 mg DAILY GT 08/31/18 09:00 09/24/18 20:59 09/14/18 08:42 Apixaban (Eliquis) 2.5 mg BID GT 08/25/18 18:00 09/24/18 17:59 09/14/18 08:42 Artificial Tears (Akwa-Tears) 1 drop Q4H PRN BOTH EYES Dry Eyes 08/21/18 15:30 09/19/18 15:29 08/30/18 16:53 Chlorhexidine Gluconate (Rylie-Hex 2%) 1 applic DAILY@1999 TOPIC 08/28/18 20:00 09/27/18 19:59 09/13/18 19:40 Collagenase (Santyl) 1 applic DAILY TOPIC 09/05/18 21:00 10/05/18 08:59 09/14/18 08:43 Epoetin Paul (Procrit (for ESRD on dialysis)) 10,000 units WED-WED-WED SUBQ 09/12/18 21:00 10/12/18 20:59 09/12/18 20:34 Iron Sucrose 100 mg/Sodium Chloride 60 ml @ 240 mls/hr DAILY IV 09/13/18 09:00 09/15/18 09:14 09/14/18 09:30 Lansoprazole (Prevacid) 30 mg Q12HR GT 08/25/18 21:00 09/24/18 20:59 09/14/18 08:42 Meropenem 500 mg/ Sodium Chloride 55 ml @ 110 mls/hr DAILY IVPB 09/14/18 09:00 09/15/18 23:59 09/14/18 08:23 Minoxidil (Loniten) 2.5 mg Q12HR GT 08/25/18 21:00 09/24/18 20:59 09/14/18 08:42 Quetiapine Fumarate (SEROquel) 25 mg EVERY 6 HOURS ORAL 09/14/18 00:00 10/14/18 00:00 09/14/18 06:26 Sodium Chloride 1,000 ml @ 500 mls/hr Q2H PRN IVLG sbp<90 during hd 09/13/18 16:43 10/13/18 16:42 Sodium Chloride ([place] Nasal [place]) 1 spray Q4H PRN NASAL dry nose 08/21/18 14:30 09/19/18 18:29 09/10/18 08:35 Zolpidem Tartrate (Ambien) 5 mg HSPRN PRN ORAL Insomnia 09/09/18 08:00 09/16/18 07:59 09/12/18 04:12 Omid Morfin MD Sep 14, 2018 10:40
--- NOTE | 2018-09-14 11:37 | NUR ---
RD ASSESSMENT & RECOMMENDATIONS SEE CARE ACTIVITY FOR COMPLETE ASSESSMENT DAILY ESTIMATED NEEDS: Needs based on Critical care + Advanced Wounds + ESRD/ 60kg 22-30 kcals/kg 0664-9212 total kcals 1.5-2.0 g protein/kg 90-120g g total protein NUTRITION DIAGNOSIS: * Swallowing difficulty R/T respiratory status as evidenced by pt s/p self extubation, s/p code blue, reintubated, now s/p trach and PEG placement. * Increased kcal/prot needs R/T wound healing as evidenced by pt admitted w/ multiple wounds including stage 4 sacral wound, refer to WC eval. * Altered nutrition related lab values R/T ESRD dx, clinical condition as evidenced by low K (2.7-> wnl), episodes of hypoglycemia (68 69-> now resolved), elev creat (4.6-> 1.8), low Na (135). CURRENT TF:Nepro @40ml/hr + PS BID ENTERAL NUTRITION RECOMMENDATIONS: Nepro @40ml/hr x 24 hrs + Prosource 1pkt BID to provide 960ml, 1728kcal, 78g + 22g prot, 698ml free water 1. Maintain current rate + Prosource 1 pack BID to better meet est protein needs 2. HOB over 30 degrees 3. Decrease water flushes to improve Na level ADDITIONAL RECOMMENDATIONS: * RECALIBRATE BED SCALE POST TRACH AND PEG PROCEDURES * Wound healing- Nephrovite x 1, Continue Afshin 1pkt BID Decrease water flushes to help improve Na level- consistently low Na Probiotics for loose BM * Monitor lytes daily w/ con't loose stool .
--- NOTE | 2018-09-14 11:37 | GI Progress Note ---
Assessment/Plan Problems: (1) Encounter for PEG (percutaneous endoscopic gastrostomy) ICD Codes: Z43.1 - Encounter for attention to gastrostomy SNOMED: 172152865, 959738038 (2) Severe malnutrition ICD Codes: E43 - Unspecified severe protein-calorie malnutrition SNOMED: 87451090 (3) Dehydration ICD Codes: E86.0 - Dehydration SNOMED: 00313833 Status: unchanged Status Narrative Discussed with Dr. Cox. Assessment/Plan Assessment - Dysphagia - Resp failure - ESRD - Anemia - Status post PEG, tolerating feeds Recommendations 1. Abdominal binder. 2. Elevate the head of the bed at all times. 3. G-tube flush. 4. G-tube care. 5. tube feeding later today per RD to goal Monitor H&H, PRN transfusions PPI Electrolyte correction Follow-up labs The patient was seen and examined at bedside and all new and available data was reviewed in the patients chart. I agree with the above findings, impression and plan. (Patient seen earlier today. Signature stamp does not reflect patient encounter time.). - Oc Cox MD Subjective Subjective limited Objective Last 24 Hour Vital Signs Date Time Temp Pulse Resp B/P (MAP) Pulse Ox O2 Delivery O2 Flow Rate FiO2 09/14/18 10:51 87 16 40 09/14/18 08:48 95 18 40 09/14/18 08:42 110/69 09/14/18 08:00 40 09/14/18 08:00 Mechanical Ventilator Mechanical Ventilator 09/14/18 08:00 98.6 99 24 110/69 (83) 95 09/14/18 07:43 100 09/14/18 06:53 97 12 40 09/14/18 05:25 99 20 40 09/14/18 04:00 97.4 88 19 144/76 (98) 99 09/14/18 04:00 Mechanical Ventilator Mechanical Ventilator 09/14/18 04:00 80 09/14/18 04:00 40 09/14/18 03:10 80 17 40 09/14/18 00:53 78 15 40 09/14/18 00:00 98.7 88 17 151/81 (104) 100 09/14/18 00:00 Mechanical Ventilator Mechanical Ventilator 09/14/18 00:00 40 09/14/18 00:00 88 1/15/19 22:55 102 18 40 09/13/18 21:30 104 18 40 09/13/18 21:10 98.3 09/13/18 20:34 145/73 09/13/18 20:00 Mechanical Ventilator Mechanical Ventilator 09/13/18 20:00 115 09/13/18 20:00 98.4 115 18 145/73 (97) 98 09/13/18 20:00 40 09/13/18 19:29 109 20 40 09/13/18 17:15 75 16 40 09/13/18 16:00 Mechanical Ventilator Mechanical Ventilator 09/13/18 16:00 40 09/13/18 16:00 97.9 115 20 144/70 (94) 100 09/13/18 15:41 114 09/13/18 15:21 122 19 40 09/13/18 13:47 134 18 40 09/13/18 12:00 98.1 70 22 130/42 (71) 100 09/13/18 12:00 40 09/13/18 12:00 Mechanical Ventilator Mechanical Ventilator 09/13/18 11:51 117 Intake and Output 09/13/18 09/14/18 18:59 06:59 Intake Total 655 ml 40 ml Balance 655 ml 40 ml Free Water 60 ml IV Total 115 ml Tube Feeding 480 ml 40 ml # Voids 2 # Bowel Movements 100 100 Laboratory Tests Test 09/13/18 18:00 09/14/18 04:00 Stool Occult Blood Negative (NEGATIVE) White Blood Count 9.4 K/UL (4.8-10.8) Red Blood Count 2.77 M/UL (4.20-5.40) L Hemoglobin 8.5 G/DL (12.0-16.0) L Hematocrit 26.6 % (37.0-47.0) L Mean Corpuscular Volume 96 FL (80-99) Mean Corpuscular Hemoglobin 30.6 PG (27.0-31.0) Mean Corpuscular Hemoglobin Concent 31.9 G/DL (32.0-36.0) L Red Cell Distribution Width 15.8 % (11.6-14.8) H Platelet Count 437 K/UL (150-450) Mean Platelet Volume 5.4 FL (6.5-10.1) L Neutrophils (%) (Auto) 80.0 % (45.0-75.0) H Lymphocytes (%) (Auto) 6.5 % (20.0-45.0) L Monocytes (%) (Auto) 9.3 % (1.0-10.0) Eosinophils (%) (Auto) 2.9 % (0.0-3.0) Basophils (%) (Auto) 1.4 % (0.0-2.0) Sodium Level 135 MMOL/L (136-145) L Potassium Level 4.1 MMOL/L (3.5-5.1) Chloride Level 98 MMOL/L (98-107) Carbon Dioxide Level 32 MMOL/L (21-32) Anion Gap 5 mmol/L (5-15) Blood Urea Nitrogen 44 mg/dL (7-18) H Creatinine 1.8 MG/DL (0.55-1.30) H Estimat Glomerular Filtration Rate mL/min (>60) Glucose Level 90 MG/DL (74-106) Calcium Level 9.6 MG/DL (8.5-10.1) Height (Feet): 5 Height (Inches): 2.00 Weight (Pounds): 122 General Appearance: no apparent distress Cardiovascular: normal rate Respiratory/Chest: other - Mechanical ventilator Abdominal Exam: GT site - Clean dry and intact Rita Quintanilla NP Sep 14, 2018 11:37
[2018-09-14 12:00] VITALS: BP 137/31
--- NOTE | 2018-09-14 12:43 | Pulmonology Progress Note ---
Assessment/Plan Assessment/Plan IMPRESSION: 1. Hypotension. Resolved. 2. Sepsis. Resolved 3. Atrial fibrillation. 4. Bradycardia. 5. Diabetes mellitus. 6. End-stage renal disease on dialysis. 7. Left lung collapse. Resolved 8. Respiratory failure. S/p tracheostomy 9. Dysphagia. 10. Dementia. 11. Anemia DISCUSSION: 1. Continue medications. 2. On amiodarone 3. Status post tracheostomy 4. S/p G-tube 5. Continue HD Andres Allan M.D. Subjective Interval Events: none new HEENT: Repors: no symptoms Cardiovascular: Reports: no symptoms Gastrointestinal/Abdominal: Reports: no symptoms Genitourinary: Reports: no symptoms Allergies: Coded Allergies: No Known Allergies (Unverified , 07/25/18) Objective Last 24 Hour Vital Signs Date Time Temp Pulse Resp B/P (MAP) Pulse Ox O2 Delivery O2 Flow Rate FiO2 09/14/18 10:51 87 16 40 09/14/18 08:48 95 18 40 09/14/18 08:42 110/69 09/14/18 08:00 40 09/14/18 08:00 Mechanical Ventilator Mechanical Ventilator 09/14/18 08:00 98.6 99 24 110/69 (83) 95 09/14/18 07:43 100 09/14/18 06:53 97 12 40 09/14/18 05:25 99 20 40 09/14/18 04:00 97.4 88 19 144/76 (98) 99 09/14/18 04:00 Mechanical Ventilator Mechanical Ventilator 09/14/18 04:00 80 09/14/18 04:00 40 09/14/18 03:10 80 17 40 09/14/18 00:53 78 15 40 09/14/18 00:00 98.7 88 17 151/81 (104) 100 09/14/18 00:00 Mechanical Ventilator Mechanical Ventilator 09/14/18 00:00 40 09/14/18 00:00 88 09/13/18 22:55 102 18 40 09/13/18 21:30 104 18 40 09/13/18 21:10 98.3 09/13/18 20:34 145/73 09/13/18 20:00 Mechanical Ventilator Mechanical Ventilator 09/13/18 20:00 115 09/13/18 20:00 98.4 115 18 145/73 (97) 98 09/13/18 20:00 40 09/13/18 19:29 109 20 40 09/13/18 17:15 75 16 40 09/13/18 16:00 Mechanical Ventilator Mechanical Ventilator 09/13/18 16:00 40 09/13/18 16:00 97.9 115 20 144/70 (94) 100 09/13/18 15:41 114 09/13/18 15:21 122 19 40 09/13/18 13:47 134 18 40 Intake and Output 09/13/18 09/14/18 19:00 07:00 Intake Total 615 ml 80 ml Balance 615 ml 80 ml Free Water 60 ml IV Total 115 ml Tube Feeding 440 ml 80 ml # Voids 2 # Bowel Movements 100 100 General Appearance: no acute distress Respiratory/Chest: chest wall non-tender, lungs clear Cardiovascular: normal peripheral pulses Laboratory Tests 09/13/18 18:00: Stool Occult Blood Negative 09/14/18 04:00: White Blood Count 9.4, Red Blood Count 2.77L, Hemoglobin 8.5L, Hematocrit 26.6L , Mean Corpuscular Volume 96, Mean Corpuscular Hemoglobin 30.6, Mean Corpuscular Hemoglobin Concent 31.9L, Red Cell Distribution Width 15.8H, Platelet Count 437, Mean Platelet Volume 5.4L, Neutrophils (%) (Auto) 80.0H, Lymphocytes (%) (Auto) 6.5L, Monocytes (%) (Auto) 9.3, Eosinophils (%) (Auto) 2.9, Basophils (%) (Auto) 1.4, Sodium Level 135L, Potassium Level 4.1, Chloride Level 98, Carbon Dioxide Level 32, Anion Gap 5, Blood Urea Nitrogen 44H, Creatinine 1.8H, Estimat Glomerular Filtration Rate , Glucose Level 90, Calcium Level 9.6 Current Medications Medications (Trade) Dose Ordered Sig/Renetta Route PRN Reason Start Time Stop Time Status Last Admin Dose Admin Acetaminophen (Tylenol) 650 mg Q6H PRN GT Mild Pain/Temp > 100.5 08/21/18 16:00 09/18/18 15:59 09/08/18 08:49 Acetaminophen/ Hydrocodone Bitart ([place] 5/325) 1 tab Q6H PRN GT For Pain 09/13/18 16:45 09/20/18 16:44 09/13/18 20:37 Amiodarone HCl (Cordarone) 200 mg DAILY GT 08/31/18 09:00 09/24/18 20:59 09/14/18 08:42 Apixaban (Eliquis) 2.5 mg BID GT 08/25/18 18:00 09/24/18 17:59 09/14/18 08:42 Artificial Tears (Akwa-Tears) 1 drop Q4H PRN BOTH EYES Dry Eyes 08/21/18 15:30 09/19/18 15:29 08/30/18 16:53 Chlorhexidine Gluconate (Rylie-Hex 2%) 1 applic DAILY@1999 TOPIC 08/28/18 20:00 09/27/18 19:59 09/13/18 19:40 Collagenase (Santyl) 1 applic DAILY TOPIC 09/05/18 21:00 10/05/18 08:59 09/14/18 08:43 Epoetin Paul (Procrit (for ESRD on dialysis)) 10,000 units WED-WED-WED SUBQ 09/12/18 21:00 10/12/18 20:59 09/12/18 20:34 Iron Sucrose 100 mg/Sodium Chloride 60 ml @ 240 mls/hr DAILY IV 09/13/18 09:00 09/15/18 09:14 09/14/18 09:30 Lansoprazole (Prevacid) 30 mg Q12HR GT 08/25/18 21:00 09/24/18 20:59 09/14/18 08:42 Meropenem 500 mg/ Sodium Chloride 55 ml @ 110 mls/hr DAILY IVPB 09/14/18 09:00 09/15/18 23:59 09/14/18 08:23 Minoxidil (Loniten) 2.5 mg Q12HR GT 08/25/18 21:00 09/24/18 20:59 09/14/18 08:42 Quetiapine Fumarate (SEROquel) 25 mg EVERY 6 HOURS ORAL 09/14/18 00:00 10/14/18 00:00 09/14/18 11:13 Sodium Chloride 1,000 ml @ 500 mls/hr Q2H PRN IVLG sbp<90 during hd 09/13/18 16:43 10/13/18 16:42 Sodium Chloride ([place] Nasal [place]) 1 spray Q4H PRN NASAL dry nose 08/21/18 14:30 09/19/18 18:29 09/10/18 08:35 Zolpidem Tartrate (Ambien) 5 mg HSPRN PRN ORAL Insomnia 09/09/18 08:00 09/16/18 07:59 09/12/18 04:12 Andres Allan MD Sep 14, 2018 12:43
--- NOTE | 2018-09-14 12:45 | Nephrology Progress Note ---
Assessment/Plan Assessment Seee below Plan ESRD HD q MWF Anemia of CKD , DARRYN high dose. A. 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 with LAE. LVEF 65% . On Eliquis. Referred to [facility]. Pt's son agreeable to [facility]. Referred again. See orders. Still needs extensive Vascular W/U. Subjective Subjective Very anxious! Objective Objective Last 24 Hour Vital Signs Date Time Temp Pulse Resp B/P (MAP) Pulse Ox O2 Delivery O2 Flow Rate FiO2 09/14/18 10:51 87 16 40 09/14/18 08:48 95 18 40 09/14/18 08:42 110/69 09/14/18 08:00 40 09/14/18 08:00 Mechanical Ventilator Mechanical Ventilator 09/14/18 08:00 98.6 99 24 110/69 (83) 95 09/14/18 07:43 100 09/14/18 06:53 97 12 40 09/14/18 05:25 99 20 40 09/14/18 04:00 97.4 88 19 144/76 (98) 99 09/14/18 04:00 Mechanical Ventilator Mechanical Ventilator 09/14/18 04:00 80 09/14/18 04:00 40 09/14/18 03:10 80 17 40 09/14/18 00:53 78 15 40 09/14/18 00:00 98.7 88 17 151/81 (104) 100 09/14/18 00:00 Mechanical Ventilator Mechanical Ventilator 09/14/18 00:00 40 09/14/18 00:00 88 09/13/18 22:55 102 18 40 09/13/18 21:30 104 18 40 09/13/18 21:10 98.3 09/13/18 20:34 145/73 09/13/18 20:00 Mechanical Ventilator Mechanical Ventilator 09/13/18 20:00 115 09/13/18 20:00 98.4 115 18 145/73 (97) 98 09/13/18 20:00 40 09/13/18 19:29 109 20 40 09/13/18 17:15 75 16 40 09/13/18 16:00 Mechanical Ventilator Mechanical Ventilator 09/13/18 16:00 40 09/13/18 16:00 97.9 115 20 144/70 (94) 100 09/13/18 15:41 114 09/13/18 15:21 122 19 40 09/13/18 13:47 134 18 40 Intake and Output 09/13/18 09/14/18 19:00 07:00 Intake Total 615 ml 80 ml Balance 615 ml 80 ml Free Water 60 ml IV Total 115 ml Tube Feeding 440 ml 80 ml # Voids 2 # Bowel Movements 100 100 Laboratory Tests 09/13/18 18:00: Stool Occult Blood Negative 09/14/18 04:00: White Blood Count 9.4, Red Blood Count 2.77L, Hemoglobin 8.5L, Hematocrit 26.6L , Mean Corpuscular Volume 96, Mean Corpuscular Hemoglobin 30.6, Mean Corpuscular Hemoglobin Concent 31.9L, Red Cell Distribution Width 15.8H, Platelet Count 437, Mean Platelet Volume 5.4L, Neutrophils (%) (Auto) 80.0H, Lymphocytes (%) (Auto) 6.5L, Monocytes (%) (Auto) 9.3, Eosinophils (%) (Auto) 2.9, Basophils (%) (Auto) 1.4, Sodium Level 135L, Potassium Level 4.1, Chloride Level 98, Carbon Dioxide Level 32, Anion Gap 5, Blood Urea Nitrogen 44H, Creatinine 1.8H, Estimat Glomerular Filtration Rate , Glucose Level 90, Calcium Level 9.6 Height (Feet): 5 Height (Inches): 2.00 Weight (Pounds): 122 Objective On vent. Trach clean. Cv IRR/IRR Lungs B ronchi. Abd SNT. BS + PEG. E Rt. foot diabetic ulcers Chase He MD Sep 14, 2018 12:45
--- NOTE | 2018-09-14 14:00 | NUR ---
NURSE NOTES: Per HD Nurse, 3L out from dialysis.
--- NOTE | 2018-09-14 14:33 | NUR ---
NURSE NOTES: Informed Dr. Castaneda if she can renew the Ativan 0.5mg GT Q6H PRN for anxiety because patient is still agitated and anxious. She stated that she changed it to Seroquel and to increase it to 25mg, but Seroquel is already 25mg q6H.
[2018-09-14] MEDS ORDERED: Tubing Blood Filter IV ONE (14:51)
[2018-09-14] MEDS ORDERED: Tubing IV Secondary IV ONE (14:51)
[2018-09-14] MEDS ORDERED: NS 275ml ONE (14:51)
--- NOTE | 2018-09-14 15:12 | NUR ---
CASE MANAGEMENT: REVIEW SI: ESRD ON HD TRACHEOSTOMY 08/15 PEG PLACEMENT 08/17 T 98.6 HR 79 RR 21 BP 137/31 SAT 98% MECH VENT FIO2 40 H/H 8.5/26.6 NA 135 BUN 44 CR 1.8 IS: MEROPENEM IV QD AMIODARONE GT QD MINOXIDIL GT Q12HR ELEQUIS GT BID GT FEEDING NEPRO @ 40ML/HR HD PRN STEP DOWN UNIT STATUS DCP: PATIENT WILL TRANSFER TO [facility]. DIALYSIS CHAIR TIME SET UP WITH [facility]. PATIENT REFERRED TO [email or web address] FOR TRANSPORTATION. AWAITING AUTH FROM INS[employer]ANCE [employer].
[2018-09-14 16:00] VITALS: BP 112/55
--- NOTE | 2018-09-14 19:10 | NUR ---
NURSE NOTES: Received report form Leonor Anderson RN, pt. in bed awake, alert to name, non-verbal, no signs or symptoms of acute cardiac or respiratory distress noted, bed in lowest position and call light within easy reach, bed alarm on, side rails up x's3, safety brakes engaged, bed alarm on, cardiac monitoring on, pt. appears to be tolerating current vent settings well- AC 8, TV 450, FIo2 at 40% and peep of 5, nephro running via g tube at 40cc/hr at goal - no residual noted, rectal tube intact and draining to gravity, pt. is clean and dry, FLACO midline SL- IV intact, SHARON shunt for hemodialysis, safety measures continued, will continue, with plan of care.
--- NOTE | 2018-09-14 19:20 | NUR ---
HAND-OFF: Report given to BALDO Agustin.
[2018-09-14 20:00] VITALS: BP 142/82
[2018-09-14] MEDS: Epogen (for ESRD on dialysis) SUBQ SCH (20:45)
[2018-09-14] MEDS: Dyna-Hex 2% Top Sol 2oz TOPIC SCH (20:46)
--- NOTE | 2018-09-14 21:03 | General Progress Note ---
Assessment/Plan Problem List: (1) Encephalopathy chronic ICD Codes: G93.49 - Other encephalopathy SNOMED: 78561020 Assessment/Plan dc ativan increase seroquel cont restraints. Subjective Neurologic/Psychiatric: Reports: anxiety, depressed, emotional problems Allergies: Coded Allergies: No Known Allergies (Unverified , 07/25/18) Subjective in restraints agitated Objective Last 24 Hour Vital Signs Date Time Temp Pulse Resp B/P (MAP) Pulse Ox O2 Delivery O2 Flow Rate FiO2 09/14/18 20:47 146/72 09/14/18 19:30 83 17 30 09/14/18 16:55 89 22 40 09/14/18 16:00 87 09/14/18 16:00 40 09/14/18 16:00 99.0 84 21 112/55 (74) 98 09/14/18 16:00 Mechanical Ventilator Mechanical Ventilator 09/14/18 14:48 98 11 40 09/14/18 13:20 90 21 40 09/14/18 12:00 40 09/14/18 12:00 Mechanical Ventilator Mechanical Ventilator 09/14/18 12:00 98.6 79 21 137/31 (66) 98 09/14/18 11:24 85 09/14/18 10:51 87 16 40 09/14/18 08:48 95 18 40 09/14/18 08:42 110/69 09/14/18 08:00 40 09/14/18 08:00 Mechanical Ventilator Mechanical Ventilator 09/14/18 08:00 98.6 99 24 110/69 (83) 95 09/14/18 07:43 100 09/14/18 06:53 97 12 40 09/14/18 05:25 99 20 40 09/14/18 04:00 97.4 88 19 144/76 (98) 99 09/14/18 04:00 Mechanical Ventilator Mechanical Ventilator 09/14/18 04:00 80 09/14/18 04:00 40 09/14/18 03:10 80 17 40 09/14/18 00:53 78 15 40 09/14/18 00:00 98.7 88 17 151/81 (104) 100 09/14/18 00:00 Mechanical Ventilator Mechanical Ventilator 09/14/18 00:00 40 09/14/18 00:00 88 09/13/18 22:55 102 18 40 09/13/18 21:30 104 18 40 09/13/18 21:10 98.3 Intake and Output 09/13/18 09/14/18 19:00 07:00 Intake Total 615 ml 80 ml Balance 615 ml 80 ml Free Water 60 ml IV Total 115 ml Tube Feeding 440 ml 80 ml # Voids 2 # Bowel Movements 100 100 Laboratory Tests 09/14/18 04:00: White Blood Count 9.4, Red Blood Count 2.77L, Hemoglobin 8.5L, Hematocrit 26.6L , Mean Corpuscular Volume 96, Mean Corpuscular Hemoglobin 30.6, Mean Corpuscular Hemoglobin Concent 31.9L, Red Cell Distribution Width 15.8H, Platelet Count 437, Mean Platelet Volume 5.4L, Neutrophils (%) (Auto) 80.0H, Lymphocytes (%) (Auto) 6.5L, Monocytes (%) (Auto) 9.3, Eosinophils (%) (Auto) 2.9, Basophils (%) (Auto) 1.4, Sodium Level 135L, Potassium Level 4.1, Chloride Level 98, Carbon Dioxide Level 32, Anion Gap 5, Blood Urea Nitrogen 44H, Creatinine 1.8H, Estimat Glomerular Filtration Rate , Glucose Level 90, Calcium Level 9.6 09/14/18 16:30: Stool Occult Blood [Pending] Height (Feet): 5 Height (Inches): 2.00 Weight (Pounds): 122 General Appearance: confused, moderate distress, agitated Sophia Castaneda MD Sep 14, 2018 21:03
[2018-09-15] VITALS: BP 118/68
[2018-09-15 04:00] VITALS: BP 95/54
[2018-09-15 05:07] LABS: HEMATOCRIT 24.9 % (37.0-47.0); HEMOGLOBIN 7.8 G/DL (12.0-16.0); MEAN CORPUSCULAR VOLUME 96 FL (80-99); PLATELET COUNT 399 K/UL (150-450); RED BLOOD COUNT 2.61 M/UL (4.20-5.40); RED CELL DISTRIBUTION WIDTH 16.3 % (11.6-14.8); WHITE BLOOD COUNT 10.1 K/UL (4.8-10.8)
[2018-09-15 05:28] LABS: ANION GAP 3 mmol/L (5-15); BLOOD UREA NITROGEN 29 mg/dL (7-18); CALCIUM 9.2 MG/DL (8.5-10.1); CARBON DIOXIDE 31 MMOL/L (21-32); CHLORIDE 102 MMOL/L (98-107); CREATININE 1.5 MG/DL (0.55-1.30); SODIUM 136 MMOL/L (136-145)
--- NOTE | 2018-09-15 06:32 | NUR ---
RESPIRATORY NOTE:Received Patient on trach Shiley 8 with Vent Settings of ACVC- 8, VT 450, FIO2 30%, PEEP +5. Tracheostomy tube is secure and patent. Pt is sleeping, no SOB or resp distress noted . Bilateral rhonchi heard upon auscultation. Suction minimal amounts of thin white/ tobin secretions. Vent plugged into red outlet. Alarms are set and audible. Ambu bag is at bedside. Will continue to monitor throughout the day.
--- NOTE | 2018-09-15 06:50 | NUR ---
NURSE NOTES: paged doctor Neri as voicemail indicated- regarding patients hgb trending down- waiting for call back from doctor.
--- NOTE | 2018-09-15 07:03 | NUR ---
NURSE NOTES: Received patient from BALDO Agustin. Patient VS stable at this time. Patient witnessed sleeping comfortably in bed. Patient reportedly confused when awake and alert and oriented x 2-3. Patient is showing sinus rhythm on the monitor. Patient is trach to vent of AC 8, TV 450, FiO2 40%, and PEEP 5. Patient tolerating setting with stable saturation of 100% at this time. Patient has G tube that is patent and running nepro 1.8 at 40cc/hr at this time. Patient is oliguric at this time. Patient is incontinent. Patient has rectal tube that is patent and asymptomatic at this time. Patient has multiple wounds. All dressings changed on previous shift. Patient has a right upper arm midline that is patent and saline locked at this time. Patient has a left upper arm shunt that is functional and slightly swollen at this time. MD aware. Patient has Hgb of 7.[address] He has been paged. Awaiting call back. Patient bed in low position with bed alarm on and call light in reach at this time.
--- NOTE | 2018-09-15 07:03 | NUR ---
HAND-OFF: Report given to Camille Orona RN, pt. remains stable and no signs of distress noted. Addendum: 09/15/18 at 0712 by SONALI LEE RN RN nurse aware to f/u on hgb trending down.
[2018-09-15 08:00] VITALS: BP 103/72
--- NOTE | 2018-09-15 08:49 | Pulmonology Progress Note ---
Assessment/Plan Assessment/Plan IMPRESSION: 1. Hypotension. Resolved. 2. Sepsis. Resolved 3. Atrial fibrillation. 4. Bradycardia. 5. Diabetes mellitus. 6. End-stage renal disease on dialysis. 7. Left lung collapse. Resolved 8. Respiratory failure. S/p tracheostomy 9. Dysphagia. 10. Dementia. 11. Anemia DISCUSSION: 1. Continue medications. 2. On amiodarone 3. Status post tracheostomy 4. S/p G-tube 5. Continue HD Andres Allan M.D. Subjective Interval Events: None new Constitutional: Reports: no symptoms HEENT: Repors: no symptoms Respiratory: Reports: no symptoms Cardiovascular: Reports: no symptoms Gastrointestinal/Abdominal: Reports: no symptoms Genitourinary: Reports: no symptoms Neurologic: Reports: no symptoms Allergies: Coded Allergies: No Known Allergies (Unverified , 07/25/18) Objective Last 24 Hour Vital Signs Date Time Temp Pulse Resp B/P (MAP) Pulse Ox O2 Delivery O2 Flow Rate FiO2 09/15/18 05:30 80 15 30 09/15/18 04:00 Mechanical Ventilator Mechanical Ventilator 09/15/18 04:00 98.4 86 17 95/54 (68) 95 09/15/18 04:00 82 09/15/18 04:00 40 09/15/18 03:00 82 18 30 09/15/18 01:30 81 20 30 09/15/18 00:00 98.0 81 20 118/68 (85) 96 09/15/18 00:00 Mechanical Ventilator Mechanical Ventilator 09/15/18 00:00 40 09/15/18 00:00 88 09/14/18 23:24 80 18 30 09/14/18 21:30 82 18 30 09/14/18 20:47 146/72 09/14/18 20:00 91 09/14/18 20:00 97.8 91 21 142/82 (102) 96 09/14/18 20:00 40 09/14/18 20:00 Mechanical Ventilator Mechanical Ventilator 09/14/18 19:30 83 17 30 09/14/18 16:55 89 22 40 09/14/18 16:00 87 09/14/18 16:00 40 09/14/18 16:00 99.0 84 21 112/55 (74) 98 09/14/18 16:00 Mechanical Ventilator Mechanical Ventilator 09/14/18 14:48 98 11 40 09/14/18 13:20 90 21 40 09/14/18 12:00 40 09/14/18 12:00 Mechanical Ventilator Mechanical Ventilator 09/14/18 12:00 98.6 79 21 137/31 (66) 98 09/14/18 11:24 85 09/14/18 10:51 87 16 40 Intake and Output 09/14/18 09/15/18 18:59 06:59 Intake Total 655 ml 530 ml Output Total 3000 ml Balance -2345 ml 530 ml Free Water 60 ml 50 ml IV Total 115 ml Tube Feeding 480 ml 480 ml Hemodialysis UF 3000 ml # Voids 1 2 # Bowel Movements 50 60 General Appearance: no acute distress HEENT: normocephalic Respiratory/Chest: chest wall non-tender, lungs clear Cardiovascular: normal peripheral pulses, normal rate Abdomen: normal bowel sounds, soft, non tender Laboratory Tests 09/14/18 16:30: Stool Occult Blood Positive 09/15/18 03:20: White Blood Count 10.1, Red Blood Count 2.61L, Hemoglobin 7.8L, Hematocrit 24.9L , Mean Corpuscular Volume 96, Mean Corpuscular Hemoglobin 29.9, Mean Corpuscular Hemoglobin Concent 31.3L, Red Cell Distribution Width 16.3H, Platelet Count 399, Mean Platelet Volume 6.3L, Neutrophils (%) (Auto) , Lymphocytes (%) (Auto) , Monocytes (%) (Auto) , Eosinophils (%) (Auto) , Basophils (%) (Auto) , Neutrophils % (Manual) [Pending], Lymphocytes % (Manual) [Pending], Platelet Estimate [Pending], Platelet Morphology [Pending], Sodium Level 136, Potassium Level 4.0, Chloride Level 102, Carbon Dioxide Level 31, Anion Gap 3L, Blood Urea Nitrogen 29H, Creatinine 1.5H, Estimat Glomerular Filtration Rate , Glucose Level 102, Calcium Level 9.2 09/15/18 06:30: Stool Occult Blood Positive Current Medications Medications (Trade) Dose Ordered Sig/Renetta Route PRN Reason Start Time Stop Time Status Last Admin Dose Admin Acetaminophen (Tylenol) 650 mg Q6H PRN GT Mild Pain/Temp > 100.5 08/21/18 16:00 09/18/18 15:59 09/08/18 08:49 Acetaminophen/ Hydrocodone Bitart ([place] 5/325) 1 tab Q6H PRN GT For Pain 09/13/18 16:45 09/20/18 16:44 09/13/18 20:37 Amiodarone HCl (Cordarone) 200 mg DAILY GT 08/31/18 09:00 09/24/18 20:59 09/14/18 08:42 Apixaban (Eliquis) 2.5 mg BID GT 08/25/18 18:00 09/24/18 17:59 09/14/18 17:25 Artificial Tears (Akwa-Tears) 1 drop Q4H PRN BOTH EYES Dry Eyes 08/21/18 15:30 09/19/18 15:29 08/30/18 16:53 Chlorhexidine Gluconate (Rylie-Hex 2%) 1 applic DAILY@2000 TOPIC 08/28/18 20:00 09/27/18 19:59 09/14/18 20:46 Collagenase (Santyl) 1 applic DAILY TOPIC 09/05/18 21:00 10/05/18 08:59 09/14/18 08:43 Epoetin Paul (Procrit (for ESRD on dialysis)) 10,000 units WED-WED-WED SUBQ 09/12/18 21:00 10/12/18 20:59 09/14/18 20:45 Iron Sucrose 100 mg/Sodium Chloride 60 ml @ 240 mls/hr DAILY IV 09/13/18 09:00 09/15/18 09:14 09/14/18 09:30 Lansoprazole (Prevacid) 30 mg Q12HR GT 08/25/18 21:00 09/24/18 20:59 09/14/18 20:45 Meropenem 500 mg/ Sodium Chloride 55 ml @ 110 mls/hr DAILY IVPB 09/14/18 09:00 09/15/18 23:59 09/14/18 08:23 Minoxidil (Loniten) 2.5 mg Q12HR GT 08/25/18 21:00 09/24/18 20:59 09/14/18 20:47 Quetiapine Fumarate (SEROquel) 25 mg EVERY 6 HOURS ORAL 09/14/18 00:00 10/14/18 00:00 09/15/18 06:10 Sodium Chloride 1,000 ml @ 500 mls/hr Q2H PRN IVLG sbp<90 during hd 09/13/18 16:43 10/13/18 16:42 Sodium Chloride ([place] Nasal [place]) 1 spray Q4H PRN NASAL dry nose 08/21/18 14:30 09/19/18 18:29 09/10/18 08:35 Zolpidem Tartrate (Ambien) 5 mg HSPRN PRN ORAL Insomnia 09/09/18 08:00 09/16/18 07:59 09/12/18 04:12 Andres Allan MD Sep 15, 2018 08:49
[2018-09-15] MEDS: Amiodarone 200mg tab GT SCH (08:57)
[2018-09-15] MEDS: Eliquis 2.5mg tablet GT SCH ×2 (08:57→17:30)
[2018-09-15] MEDS: Minoxidil 2.5mg tab GT SCH (08:58)
[2018-09-15] MEDS: Norco 5mg/325mg tab GT PRN (08:59)
[2018-09-15] MEDS: Meropenem 500 MG in NS 55 ML IVPB SCH (08:59)
[2018-09-15] MEDS: Iron Sucrose 100 MG in NS 55 ML IV SCH (08:59)
[2018-09-15 12:00] VITALS: BP 137/70
--- NOTE | 2018-09-15 12:07 | Infectious Diseases Prog Note ---
Assessment/Plan Assessment/Plan A: leukocytosis UTI with ESBL E. Coli treated Cellulitis of R leg, osteomyelitis treated Hypercapnic respiratory failure ESRD on HD DM Anemia Dementia PVD R pleural effusion Mucous plug s/o Cardiac arrest Multiple Pressure ulcers P; discontinue Meropenem Subjective ROS Limited/Unobtainable: Yes Allergies: Coded Allergies: No Known Allergies (Unverified , 07/25/18) Objective Vital Signs Last 24 Hour Vital Signs Date Time Temp Pulse Resp B/P (MAP) Pulse Ox O2 Delivery O2 Flow Rate FiO2 09/15/18 09:15 98 16 30 09/15/18 08:58 103/47 09/15/18 06:32 66 13 30 09/15/18 05:30 80 15 30 09/15/18 04:00 Mechanical Ventilator Mechanical Ventilator 09/15/18 04:00 98.4 86 17 95/54 (68) 95 09/15/18 04:00 82 09/15/18 04:00 40 09/15/18 03:00 82 18 30 09/15/18 01:30 81 20 30 09/15/18 00:00 98.0 81 20 118/68 (85) 96 09/15/18 00:00 Mechanical Ventilator Mechanical Ventilator 09/15/18 00:00 40 09/15/18 00:00 88 09/14/18 23:24 80 18 30 09/14/18 21:30 82 18 30 09/14/18 20:47 146/72 09/14/18 20:00 91 09/14/18 20:00 97.8 91 21 142/82 (102) 96 09/14/18 20:00 40 09/14/18 20:00 Mechanical Ventilator Mechanical Ventilator 09/14/18 19:30 83 17 30 09/14/18 16:55 89 22 40 09/14/18 16:00 87 09/14/18 16:00 40 09/14/18 16:00 99.0 84 21 112/55 (74) 98 09/14/18 16:00 Mechanical Ventilator Mechanical Ventilator 09/14/18 14:48 98 11 40 09/14/18 13:20 90 21 40 Height (Feet): 5 Height (Inches): 2.00 Weight (Pounds): 122 General Appearance: no acute distress HEENT: status post trach Respiratory/Chest: lungs clear, other - on ventilator Cardiovascular: normal rate Abdomen: soft, non tender, other - GT feeding Extremities: no edema Neurologic/Psychiatric: disoriented Laboratory Tests Test 09/14/18 16:30 09/15/18 03:20 09/15/18 06:30 Stool Occult Blood Positive (NEGATIVE) Positive (NEGATIVE) White Blood Count 10.1 K/UL (4.8-10.8) Red Blood Count 2.61 M/UL (4.20-5.40) L Hemoglobin 7.8 G/DL (12.0-16.0) L Hematocrit 24.9 % (37.0-47.0) L Mean Corpuscular Volume 96 FL (80-99) Mean Corpuscular Hemoglobin 29.9 PG (27.0-31.0) Mean Corpuscular Hemoglobin Concent 31.3 G/DL (32.0-36.0) L Red Cell Distribution Width 16.3 % (11.6-14.8) H Platelet Count 399 K/UL (150-450) Mean Platelet Volume 6.3 FL (6.5-10.1) L Neutrophils (%) (Auto) % (45.0-75.0) Lymphocytes (%) (Auto) % (20.0-45.0) Monocytes (%) (Auto) % (1.0-10.0) Eosinophils (%) (Auto) % (0.0-3.0) Basophils (%) (Auto) % (0.0-2.0) Differential Total Cells Counted 100 Neutrophils % (Manual) 80 % (45-75) H Lymphocytes % (Manual) 13 % (20-45) L Monocytes % (Manual) 6 % (1-10) Eosinophils % (Manual) 0 % (0-3) Basophils % (Manual) 1 % (0-2) Band Neutrophils 0 % (0-8) Platelet Estimate Adequate Platelet Morphology Normal Anisocytosis 1+ Sodium Level 136 MMOL/L (136-145) Potassium Level 4.0 MMOL/L (3.5-5.1) Chloride Level 102 MMOL/L (98-107) Carbon Dioxide Level 31 MMOL/L (21-32) Anion Gap 3 mmol/L (5-15) L Blood Urea Nitrogen 29 mg/dL (7-18) H Creatinine 1.5 MG/DL (0.55-1.30) H Estimat Glomerular Filtration Rate mL/min (>60) Glucose Level 102 MG/DL (74-106) Calcium Level 9.2 MG/DL (8.5-10.1) Current Medications Medications (Trade) Dose Ordered Sig/Renetta Route PRN Reason Start Time Stop Time Status Last Admin Dose Admin Acetaminophen (Tylenol) 650 mg Q6H PRN GT Mild Pain/Temp > 100.5 08/21/18 16:00 09/18/18 15:59 09/08/18 08:49 Acetaminophen/ Hydrocodone Bitart ([place] 5/325) 1 tab Q6H PRN GT For Pain 09/13/18 16:45 09/20/18 16:44 09/15/18 08:59 Amiodarone HCl (Cordarone) 200 mg DAILY GT 08/31/18 09:00 09/24/18 20:59 09/15/18 08:57 Apixaban (Eliquis) 2.5 mg BID GT 08/25/18 18:00 09/24/18 17:59 09/15/18 08:57 Artificial Tears ([place]-Tears) 1 drop Q4H PRN BOTH EYES Dry Eyes 08/21/18 15:30 09/19/18 15:29 08/30/18 16:53 Chlorhexidine Gluconate (Rylie-Hex 2%) 1 applic DAILY@1999 TOPIC 08/28/18 20:00 09/27/18 19:59 09/14/18 20:46 Collagenase (Santyl) 1 applic DAILY TOPIC 09/05/18 21:00 10/05/18 08:59 09/15/18 09:00 Epoetin Paul (Procrit (for ESRD on dialysis)) 10,000 units WED-WED-WED SUBQ 09/12/18 21:00 10/12/18 20:59 09/14/18 20:45 Lansoprazole (Prevacid) 30 mg Q12HR GT 08/25/18 21:00 09/24/18 20:59 09/15/18 08:57 Meropenem 500 mg/ Sodium Chloride 55 ml @ 110 mls/hr DAILY IVPB 09/14/18 09:00 09/15/18 23:59 09/15/18 08:59 Minoxidil (Loniten) 2.5 mg Q12HR GT 08/25/18 21:00 09/24/18 20:59 09/14/18 20:47 Quetiapine Fumarate (SEROquel) 25 mg EVERY 6 HOURS ORAL 09/14/18 00:00 10/14/18 00:00 09/15/18 06:10 Sodium Chloride 1,000 ml @ 500 mls/hr Q2H PRN IVLG sbp<90 during hd 09/13/18 16:43 10/13/18 16:42 Sodium Chloride ([place] Nasal [place]) 1 spray Q4H PRN NASAL dry nose 08/21/18 14:30 09/19/18 18:29 09/10/18 08:35 Zolpidem Tartrate (Ambien) 5 mg HSPRN PRN ORAL Insomnia 09/09/18 08:00 09/16/18 07:59 09/12/18 04:12 Freedom Randolph MD Sep 15, 2018 12:07
--- NOTE | 2018-09-15 13:02 | GI Progress Note ---
Assessment/Plan Problems: (1) Encounter for PEG (percutaneous endoscopic gastrostomy) ICD Codes: Z43.1 - Encounter for attention to gastrostomy SNOMED: 338968129, 380409583 (2) Severe malnutrition ICD Codes: E43 - Unspecified severe protein-calorie malnutrition SNOMED: 57517890 (3) Dehydration ICD Codes: E86.0 - Dehydration SNOMED: 73736518 Status: unchanged Status Narrative Discussed with Dr. Cox Assessment/Plan Assessment - Dysphagia - Resp failure - ESRD - Anemia - Status post PEG, tolerating feeds OB stool positive now Recommendations 1. Abdominal binder. 2. Elevate the head of the bed at all times. 3. G-tube flush. 4. G-tube care. 5. tube feeding later today per RD to goal Monitor H&H, PRN transfusions >> will consider colonoscopy Increase PPI to twice daily Electrolyte correction Follow-up labs The patient was seen and examined at bedside and all new and available data was reviewed in the patients chart. I agree with the above findings, impression and plan. (Patient seen earlier today. Signature stamp does not reflect patient encounter time.). - Oc Cox MD Subjective Subjective limited Objective Last 24 Hour Vital Signs Date Time Temp Pulse Resp B/P (MAP) Pulse Ox O2 Delivery O2 Flow Rate FiO2 09/15/18 10:55 79 17 30 09/15/18 09:15 98 16 30 09/15/18 08:58 103/47 09/15/18 06:32 66 13 30 09/15/18 05:30 80 15 30 09/15/18 04:00 Mechanical Ventilator Mechanical Ventilator 09/15/18 04:00 98.4 86 17 95/54 (68) 95 09/15/18 04:00 82 09/15/18 04:00 40 09/15/18 03:00 82 18 30 09/15/18 01:30 81 20 30 09/15/18 00:00 98.0 81 20 118/68 (85) 96 09/15/18 00:00 Mechanical Ventilator Mechanical Ventilator 09/15/18 00:00 40 09/15/18 00:00 88 09/14/18 23:24 80 18 30 09/14/18 21:30 82 18 30 09/14/18 20:47 146/72 09/14/18 20:00 91 09/14/18 20:00 97.8 91 21 142/82 (102) 96 09/14/18 20:00 40 09/14/18 20:00 Mechanical Ventilator Mechanical Ventilator 09/14/18 19:30 83 17 30 09/14/18 16:55 89 22 40 09/14/18 16:00 87 09/14/18 16:00 40 09/14/18 16:00 99.0 84 21 112/55 (74) 98 09/14/18 16:00 Mechanical Ventilator Mechanical Ventilator 09/14/18 14:48 98 11 40 09/14/18 13:20 90 21 40 Intake and Output 09/14/18 09/15/18 18:59 06:59 Intake Total 655 ml 530 ml Output Total 3000 ml Balance -2345 ml 530 ml Free Water 60 ml 50 ml IV Total 115 ml Tube Feeding 480 ml 480 ml Hemodialysis UF 3000 ml # Voids 1 2 # Bowel Movements 50 60 Laboratory Tests Test 09/14/18 16:30 09/15/18 03:20 09/15/18 06:30 Stool Occult Blood Positive (NEGATIVE) Positive (NEGATIVE) White Blood Count 10.1 K/UL (4.8-10.8) Red Blood Count 2.61 M/UL (4.20-5.40) L Hemoglobin 7.8 G/DL (12.0-16.0) L Hematocrit 24.9 % (37.0-47.0) L Mean Corpuscular Volume 96 FL (80-99) Mean Corpuscular Hemoglobin 29.9 PG (27.0-31.0) Mean Corpuscular Hemoglobin Concent 31.3 G/DL (32.0-36.0) L Red Cell Distribution Width 16.3 % (11.6-14.8) H Platelet Count 399 K/UL (150-450) Mean Platelet Volume 6.3 FL (6.5-10.1) L Neutrophils (%) (Auto) % (45.0-75.0) Lymphocytes (%) (Auto) % (20.0-45.0) Monocytes (%) (Auto) % (1.0-10.0) Eosinophils (%) (Auto) % (0.0-3.0) Basophils (%) (Auto) % (0.0-2.0) Differential Total Cells Counted 100 Neutrophils % (Manual) 80 % (45-75) H Lymphocytes % (Manual) 13 % (20-45) L Monocytes % (Manual) 6 % (1-10) Eosinophils % (Manual) 0 % (0-3) Basophils % (Manual) 1 % (0-2) Band Neutrophils 0 % (0-8) Platelet Estimate Adequate Platelet Morphology Normal Anisocytosis 1+ Sodium Level 136 MMOL/L (136-145) Potassium Level 4.0 MMOL/L (3.5-5.1) Chloride Level 102 MMOL/L (98-107) Carbon Dioxide Level 31 MMOL/L (21-32) Anion Gap 3 mmol/L (5-15) L Blood Urea Nitrogen 29 mg/dL (7-18) H Creatinine 1.5 MG/DL (0.55-1.30) H Estimat Glomerular Filtration Rate mL/min (>60) Glucose Level 102 MG/DL (74-106) Calcium Level 9.2 MG/DL (8.5-10.1) Height (Feet): 5 Height (Inches): 2.00 Weight (Pounds): 122 General Appearance: no apparent distress Cardiovascular: normal rate, other Respiratory/Chest: other - Mechanical ventilator Abdominal Exam: GT site - Clean dry and intact Rita Quintanilla NP Sep 15, 2018 13:02
--- NOTE | 2018-09-15 13:02 | NUR ---
CASE MANAGEMENT: REVIEW SI: ESRD ON HD TRACHEOSTOMY 08/15 PEG PLACEMENT 08/17 T 98.4 HR 86 RR 17 BP 95/54 SAT 95% MECH VENT FIO2 40 H/H 7.8/24.9 BUN 29 CR 1.5 IS: MEROPENEM IV QD AMIODARONE GT QD MINOXIDIL GT Q12HR ELEQUIS GT BID GT FEEDING NEPRO @ 40ML/HR HD PRN STEP DOWN UNIT STATUS DCP: PATIENT WILL TRANSFER TO [facility]. DIALYSIS CHAIR TIME SET UP WITH [facility] TRANSPORTATION VIA [facility].
--- NOTE | 2018-09-15 13:05 | NUR ---
CASE MANAGEMENT: DCPNOTE UPON DISCHARGE PATIENT WILL TRANSFER TO [facility] [phone] DETENTION ROOM 7B OUTPATIENT HEMODIALYSIS: [facility] / [facility] [place] [phone] [id number] [place] [address] DIALYSIS TRANSPORTATION: [facility] / [facility] [phone] [facility] [phone] IN AGREEMENT WITH PATIENT TRANSFERRING TO THIS FACILITY TRANSPORTATION VIA [facility] [id number] ETA 15:00
--- NOTE | 2018-09-15 16:10 | Nephrology Progress Note ---
Assessment/Plan Assessment Seee below Plan ESRD HD q MWF Anemia of CKD , DARRYN high dose. A. 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 with LAE. LVEF 65% . On Eliquis. Referred to [facility]. Pt's son agreeable to [facility]. Referred again. See orders. Still needs extensive Vascular W/U. Subjective Subjective Very anxious! Objective Objective Last 24 Hour Vital Signs Date Time Temp Pulse Resp B/P (MAP) Pulse Ox O2 Delivery O2 Flow Rate FiO2 09/15/18 15:56 Mechanical Ventilator Mechanical Ventilator 09/15/18 15:13 82 18 30 09/15/18 12:40 76 16 30 09/15/18 12:00 Mechanical Ventilator Mechanical Ventilator 09/15/18 11:49 105 09/15/18 10:55 79 17 30 09/15/18 09:15 98 16 30 09/15/18 08:58 103/47 09/15/18 08:00 Mechanical Ventilator Mechanical Ventilator 09/15/18 06:32 66 13 30 09/15/18 05:30 80 15 30 09/15/18 04:00 Mechanical Ventilator Mechanical Ventilator 09/15/18 04:00 98.4 86 17 95/54 (68) 95 09/15/18 04:00 82 09/15/18 04:00 40 09/15/18 03:00 82 18 30 09/15/18 01:30 81 20 30 09/15/18 00:00 98.0 81 20 118/68 (85) 96 09/15/18 00:00 Mechanical Ventilator Mechanical Ventilator 09/15/18 00:00 40 09/15/18 00:00 88 09/14/18 23:24 80 18 30 09/14/18 21:30 82 18 30 09/14/18 20:47 146/72 09/14/18 20:00 91 09/14/18 20:00 97.8 91 21 142/82 (102) 96 09/14/18 20:00 40 09/14/18 20:00 Mechanical Ventilator Mechanical Ventilator 09/14/18 19:30 83 17 30 09/14/18 16:55 89 22 40 Intake and Output 09/14/18 09/15/18 19:00 07:00 Intake Total 655 ml 530 ml Output Total 3000 ml Balance -2345 ml 530 ml Free Water 60 ml 50 ml IV Total 115 ml Tube Feeding 480 ml 480 ml Hemodialysis UF 3000 ml # Voids 1 2 # Bowel Movements 50 60 Laboratory Tests 09/14/18 16:30: Stool Occult Blood Positive 09/15/18 03:20: White Blood Count 10.1, Red Blood Count 2.61L, Hemoglobin 7.8L, Hematocrit 24.9L , Mean Corpuscular Volume 96, Mean Corpuscular Hemoglobin 29.9, Mean Corpuscular Hemoglobin Concent 31.3L, Red Cell Distribution Width 16.3H, Platelet Count 399, Mean Platelet Volume 6.3L, Neutrophils (%) (Auto) , Lymphocytes (%) (Auto) , Monocytes (%) (Auto) , Eosinophils (%) (Auto) , Basophils (%) (Auto) , Differential Total Cells Counted 100, Neutrophils % ( Manual) 80H, Lymphocytes % (Manual) 13L, Monocytes % (Manual) 6, Eosinophils % ( Manual) 0, Basophils % (Manual) 1, Band Neutrophils 0, Platelet Estimate Adequate, Platelet Morphology Normal, Anisocytosis 1+, Sodium Level 136, Potassium Level 4.0, Chloride Level 102, Carbon Dioxide Level 31, Anion Gap 3L, Blood Urea Nitrogen 29H, Creatinine 1.5H, Estimat Glomerular Filtration Rate , Glucose Level 102, Calcium Level 9.2 09/15/18 06:30: Stool Occult Blood Positive Height (Feet): 5 Height (Inches): 2.00 Weight (Pounds): 122 Objective On vent. Trach clean. Cv IRR/IRR Lungs B ronchi. Abd SNT. BS + PEG. E Rt. foot diabetic ulcers Chase He MD Sep 15, 2018 16:10
[2018-09-15] MEDS ORDERED: PACERONE200 MG GT (16:53)
[2018-09-15] MEDS ORDERED: ELIQUIS2.5 MG GT (16:53)
[2018-09-15] MEDS ORDERED: AMBIEN5 MG ORAL (16:53)
[2018-09-15] MEDS ORDERED: LONITEN2.5 MG GT (16:53)
[2018-09-15] MEDS ORDERED: Acetaminophen GT (16:53)
[2018-09-15] MEDS ORDERED: PROCRIT20000 UNI2 SUBQ (16:53)
[2018-09-15] MEDS ORDERED: LANSOPRAZOLE30 MG GT (16:53)
[2018-09-15] MEDS ORDERED: NORCO 5-325 TA1 EACH GT (16:53)
[2018-09-15] MEDS ORDERED: ARTIFICIAL TEAR15 ML BOTH EYES (16:53)
[2018-09-15] MEDS ORDERED: SEROQUEL25 MG ORAL (16:53)
--- NOTE | 2018-09-15 18:32 | NUR ---
HAND-OFF: Report given to ambulance personel with [facility]. Patient midline was removed per Dr He. Patient VS stable at this time with no sign of acute distress at this time. Patient son at the bedside and will follow ambulance to facility. Patient disconeted from tube feeding at this time. Patient given 6pm medications prior to discharge. Patient is calm.
[2018-09-15] MEDS ORDERED: NS 275ml ONE (19:02)
[2018-09-15] MEDS ORDERED: Tubing IV Secondary IV ONE (19:02)
[2018-09-15] MEDS ORDERED: Tubing Blood Filter IV ONE (19:02)
--- NOTE | 2018-09-15 19:59 | Cardiology Report ---
APPROVED REPORT EKG Measurement Heart [id number] Atrial fibrillation Nonspecific intraventricular block Abnormal ECG
--- NOTE | 2018-09-16 00:13 | General Progress Note ---
Assessment/Plan Problem List: (1) Encephalopathy chronic ICD Codes: G93.49 - Other encephalopathy SNOMED: [id number] Assessment/Plan dc ativan increase seroquel cont restraints. Subjective Neurologic/Psychiatric: Reports: anxiety Allergies: Coded Allergies: No Known Allergies (Unverified , 07/25/18) Subjective in restraints agitated Objective Last 24 Hour Vital Signs Date Time Temp Pulse Resp B/P (MAP) Pulse Ox O2 Delivery O2 Flow Rate FiO2 09/15/18 17:03 116 16 30 09/15/18 16:00 30 09/15/18 15:56 Mechanical Ventilator Mechanical Ventilator 09/15/18 15:13 82 18 30 09/15/18 12:40 76 16 30 09/15/18 12:00 97.7 120 18 137/70 (92) 100 09/15/18 12:00 40 09/15/18 12:00 Mechanical Ventilator Mechanical Ventilator 09/15/18 11:49 105 09/15/18 10:55 79 17 30 09/15/18 09:15 98 16 30 09/15/18 08:58 103/47 09/15/18 08:00 Mechanical Ventilator Mechanical Ventilator 09/15/18 08:00 40 09/15/18 08:00 98.4 71 20 103/72 (82) 93 09/15/18 06:32 66 13 30 09/15/18 05:30 80 15 30 09/15/18 04:00 Mechanical Ventilator Mechanical Ventilator 09/15/18 04:00 98.4 86 17 95/54 (68) 95 09/15/18 04:00 82 09/15/18 04:00 40 09/15/18 03:00 82 18 30 09/15/18 01:30 81 20 30 Intake and Output 09/15/18 09/16/18 19:00 07:00 Intake Total 640 ml Output Total 100 ml Balance 540 ml Free Water 200 ml Tube Feeding 440 ml Stool Total 100 ml Laboratory Tests 09/15/18 03:20: White Blood Count 10.1, Red Blood Count 2.61L, Hemoglobin 7.8L, Hematocrit 24.9L , Mean Corpuscular Volume 96, Mean Corpuscular Hemoglobin 29.9, Mean Corpuscular Hemoglobin Concent 31.3L, Red Cell Distribution Width 16.3H, Platelet Count 399, Mean Platelet Volume 6.3L, Neutrophils (%) (Auto) , Lymphocytes (%) (Auto) , Monocytes (%) (Auto) , Eosinophils (%) (Auto) , Basophils (%) (Auto) , Differential Total Cells Counted 100, Neutrophils % ( Manual) 80H, Lymphocytes % (Manual) 13L, Monocytes % (Manual) 6, Eosinophils % ( Manual) 0, Basophils % (Manual) 1, Band Neutrophils 0, Platelet Estimate Adequate, Platelet Morphology Normal, Anisocytosis 1+, Sodium Level 136, Potassium Level 4.0, Chloride Level 102, Carbon Dioxide Level 31, Anion Gap 3L, Blood Urea Nitrogen 29H, Creatinine 1.5H, Estimat Glomerular Filtration Rate , Glucose Level 102, Calcium Level 9.2 09/15/18 06:30: Stool Occult Blood Positive Height (Feet): 5 Height (Inches): 2.00 Weight (Pounds): 122 General Appearance: alert, confused, agitated Sophia Castaneda MD Sep 16, 2018 00:13
--- NOTE | 2018-09-16 17:41 | Discharge Summary ---
Discharge Summary Discharge Summary _ DATE OF ADMISSION: July 25, 2018 DATE OF DISCHARGE: September 15, 2018 DISCHARGED BY: Dr. Chase He CONSULTANTS: Dr. Sophia Nails BRIEF HOSPITAL COURSE: Patient is a 78-year-old female, who came to the hospital from half-way facility for altered mental status. Patient was apparently doing fairly well , however was minimally responsive. She was evaluated at the emergency room and workup showed left lung pneumonia. Patient was initially admitted to telemetry, she suddenly desaturated and became altered. She was then immediately transferred to ICU and was orally intubated. Patient required emergent IV access. A central catheter was inserted to the left subclavian vein. Chest x- ray showed left lung opacification suspicious for left mucous plug. She was admitted to ICU and was started on broad-spectrum antibiotics, Protonix and IV pressors. Bundle Sorter and centrifuge separator tender were consulted. Patient was given albumin bolus. She was eventually started on dopamine which was later switched to Levophed. Chest X-ray post intubation showed left lung collapse. On July 26, 2018, she underwent bronchoscopy and lavage by Dr. Allan. She was eventually extubated. Later that day, patient developed deteriorating mental status. She was placed on BiPAP but continued to deteriorate. ER physician was called. Patient was reintubated. She was noted to have bilateral lower extremity wounds. Lunchroom Monitor was consulted. Patient has cellulitis of right lower extremity secondary to infected wounds. Patient's wounds possibly arterial in etiology. She was given wound care. No surgical intervention was needed. She was also noted to have sacral full-thickness pressure injury with tunneling. Wound care was rendered. She was placed on air-fluidized mattress with frequent repositioning and offloading. She was assessed by vascular surgeon. Patient will need selective leg angiogram to assess for percutaneous revascularization. ID was consulted. She was initially on vancomycin and Zosyn. Antibiotics were discontinued. She was started on meropenem and linezolid. Patient had multiorgan failure, sepsis due to infected diabetic ulcers. She had an episode of anemia and was given blood transfusion. Patient converted to sinus rhythm but had been had been in and out of A. fib despite amiodarone BID. Dose was increased to 400 mg. Heart rate was monitored. She was continued on weaning protocol. She self extubated on 08/07/2018. She had an episode of atrial fibrillation for a few minutes after being extubated. She eventually reverted back to sinus rhythm spontaneously. She had a transient bradycardia after being given labetalol for hypertension. She was given amiodarone 200 mg twice daily. Echocardiogram done showed mitral regurgitation, LVEF 65%. Urine culture showed growth of E. coli and VRE. She was continued on meropenem. On 08/08/18, patient became bradycardic then went into asystole. CODE BLUE was called. Patient was reintubated. Labetalol was discontinued. He was continued on vent support. Patient was unable to be weaned. Discussed with patients family. Patient may eventually need trach and PEG. He failed weaning process. On August 15, 2018, he underwent tracheostomy. On August 17, 2018, he underwent EGD with PEG tube placement. He tolerated procedure well. He was eventually started on G-tube feedings. He was mostly in sinus rhythm on telemetry. He was started on Eliquis 2.5 mg twice daily for stroke prevention. Patient had difficulty placement. Patient will need subacute placement and dialysis arranged. Son was agreeable. On 09/02/2018, he had increased leukocytosis, WBC went up to 20s. Patient was again restarted on antibiotics. Sputum culture showed Pseudomonas. Urine culture with ESBL E. coli. There was a drop in hemoglobin and required blood transfusion. Proton pump inhibitor was increased to twice daily. Leukocytosis eventually resolved. Patient was eventually accepted at [facility]. Outpatient hemodialysis with [facility]. Patient was eventually discharged. FINAL DIAGNOSES: Multiorgan failure Status post cardiac arrest End-stage renal disease on hemodialysis Anemia of chronic kidney disease Paroxysmal atrial fibrillation Acute respiratory failure status post tracheostomy placement on 08/15/2018 Status post EGD and PEG tube placement on 08/17/2018 Severe protein calorie malnutrition Dehydration ESBL E. 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 I have been assigned to dictate discharge summary on this account, and I was not involved in the patient's management. Gavi Villagomez NP Sep 16, 2018 17:41
== END 2018-09-15 19:03 | DRG 5 ==
LOC: EDBD 08:29 → EMR 09:15 → 2W 10:32 → EDBEDREQ 10:56 → ICU 12:30 → 2W 08-21 15:23
PROC: 05H633Z Insertion of Infusion Device into Left Subclavian Vein, Percutaneous Approach (ICD-10-PCS; 2018-07-25)
PROC: 5A1955Z Respiratory Ventilation, Greater than 96 Consecutive Hours (ICD-10-PCS; principal; 2018-07-26)
PROC: 0BH17EZ Insertion of Endotracheal Airway into Trachea, Via Natural or Artificial Opening (ICD-10-PCS; 2018-07-26)
PROC: 5A1D70Z Performance of Urinary Filtration, Intermittent, Less than 6 Hours Per Day (ICD-10-PCS; 2018-07-26)
PROC: 0BC78ZZ Extirpation of Matter from Left Main Bronchus, Via Natural or Artificial Opening Endoscopic (ICD-10-PCS; 2018-07-26)
PROC: 0JBN0ZZ Excision of Right Lower Leg Subcutaneous Tissue and Fascia, Open Approach (ICD-10-PCS; 2018-08-04)
PROC: 5A12012 Performance of Cardiac Output, Single, Manual (ICD-10-PCS; 2018-08-08)
PROC: 0B110F4 Bypass Trachea to Cutaneous with Tracheostomy Device, Open Approach (ICD-10-PCS; 2018-08-15)
PROC: 0DH63UZ Insertion of Feeding Device into Stomach, Percutaneous Approach (ICD-10-PCS; 2018-08-17)
DX: A41.9 Sepsis, unspecified organism (principal); R65.21 Severe sepsis with septic shock; E43 Unspecified severe protein-calorie malnutrition; J15.1 Pneumonia due to Pseudomonas; G93.40 Encephalopathy, unspecified; L89.159 Pressure ulcer of sacral region, unspecified stage; J90 Pleural effusion, not elsewhere classified; J96.22 Acute and chronic respiratory failure with hypercapnia; T17.590A Other foreign object in bronchus causing asphyxiation, initial encounter; Z99.11 Dependence on respirator [ventilator] status; E11.22 Type 2 diabetes mellitus with diabetic chronic kidney disease; I12.0 Hypertensive chronic kidney disease with stage 5 chronic kidney disease or end stage renal disease; E11.621 Type 2 diabetes mellitus with foot ulcer; F03.91 Unspecified dementia, unspecified severity, with behavioral disturbance; I48.0 Paroxysmal atrial fibrillation; N18.6 End stage renal disease; Z99.2 Dependence on renal dialysis; L97.429 Non-pressure chronic ulcer of left heel and midfoot with unspecified severity; Z79.01 Long term (current) use of anticoagulants; R00.1 Bradycardia, unspecified; J98.11 Atelectasis; L03.115 Cellulitis of right lower limb; Z78.1 Physical restraint status; I27.20 Pulmonary hypertension, unspecified; N39.0 Urinary tract infection, site not specified; B96.20 Unspecified Escherichia coli [E. coli] as the cause of diseases classified elsewhere; I73.9 Peripheral vascular disease, unspecified; I46.9 Cardiac arrest, cause unspecified; E87.1 Hypo-osmolality and hyponatremia; E86.0 Dehydration; D63.1 Anemia in chronic kidney disease; Z68.22 Body mass index [BMI] 22.0-22.9, adult; M86.9 Osteomyelitis, unspecified; I34.0 Nonrheumatic mitral (valve) insufficiency; K29.70 Gastritis, unspecified, without bleeding; R71.0 Precipitous drop in hematocrit
CPT/HCPCS: 31500; 31645; 36415; 36600; 70450; 71045; 74018; 76700; 76705; 80048; 80053; 80202; 81003; 82140; 82270; 82550; 82553; 82607; 82728; 82746; 82803; 82962; 82977; 83540; 83550; 83605; 83735; 83880; 84100; 84443; 84484; 84550; 85007; 85025; 85610; 85730; 86140; 86580; 86705; 86709; 86710; 86803; 86850; 86900; 86901; 86920; 87040; 87070; 87081; 87086; 87181; 87205; 87324; 87340; 92950; 93005; 93306; 93880; 93925; 93970; 93990; 94002; 94003; 94150; 94640; 94660; 94664; 94760; 96365; 96366; 96367; 96375; 99291; J0171; J7620

== ENCOUNTER 2018-09-29 15:44 | Inpatient (IN) | payer MEDICARE, MEDICAID ==
[2018-09-29] VITALS (21 sets, daily range): BP systolic 46–119; BP diastolic 17–52
[~2018-09-29] VITALS: Ht 160 cm; Wt 69.4 kg
[~2018-09-29 15:44] MED LIST: ACETAMINOPHEN325 M1 ORAL; ALPRAZOLAM1 MG ORAL; AMBIEN5 MG ORAL; AMIODARONE HCL400 M1 ORAL; ARTIFICIAL TEAR15 ML BOTH EYES; Acetaminophen GT; DOCUSATE SODIU100 MG ORAL; ELIQUIS2.5 MG GT; GABAPENTIN300 MG ORAL; LANSOPRAZOLE30 MG GT; LONITEN2.5 MG GT; METOPROLOL TART50 M1 ORAL; MUPIROCIN22 GM TOPIC; NORCO 5-325 TA1 EACH GT; PACERONE200 MG GT; PANTOPRAZOLE SO40 MG ORAL; PRO-STAT LIQUID30 ML ORAL; PROCRIT20000 UNI2 SUBQ; RENVELA0.8 GM ORAL; SENNA LAXATIVE1 EAC1 PO; SEROQUEL25 MG ORAL; SERTRALINE HCL25 MG ORAL; VITAMIN C500 M1 ORAL
--- NOTE | 2018-09-29 15:45 | NUR ---
ED Nurse Note: brought in by ambulance from [facility] due to abnormal lab- hgb of 6.7. Trach to vent dependent- Shiley 8, AC 450 FiO2 40%, PEEP 5. Multiple pressure ulcer seen. Active shunt on left AC and inactive shunt on the right AC. Dialysis M/W/F and last dialysis was 09/28/18. Edematous.
[2018-09-29] MEDS ORDERED: ASCORBIC ACID500 MG ORAL (15:48)
[2018-09-29] MEDS ORDERED: NEPHROVITE1 TAB GT (15:48)
[2018-09-29] MEDS ORDERED: ZINC SULFATE220 M1 GT (15:48)
[2018-09-29] MEDS ORDERED: ATIVAN1 MG GT (15:48)
--- NOTE | 2018-09-29 16:14 | NUR ---
RESPIRATORY NOTE: received pt in ER with josh tan. no redness or skin tears around stoma. sputum collected and given to RN. vent settings given were AC 8 450 40% +5. no resp distress noted at this time. current spo2 100%, HR 124. will cont to monitor.
[2018-09-29] MEDS ORDERED: Morphine Sulfate 2mg/ml Inj IVP ONE (16:45)
--- NOTE | 2018-09-29 17:07 | NUR ---
ED Nurse Note: notified Dr. Cabrera regarding pt's BP of 69/29
[2018-09-29 17:17] LABS: APPEARANCE,URINE CLOUDY; BILIRUBIN, URINE NEGATIVE (NEGATIVE); GLUCOSE, URINE (UA) NEGATIVE (NEGATIVE); KETONES,URINE 1+ (NEGATIVE); LEUKOCYTE ESTERASE ,URINE 2+ (NEGATIVE); NITRITE,URINE NEGATIVE (NEGATIVE); PH,URINE 7 (4.5-8.0); PROTEIN,URINE 4+ (NEGATIVE); UROBILINOGEN,URINE NORMAL MG/DL (0.0-1.0)
[2018-09-29 17:19] LABS: INR 0.9 (0.9-1.1)
[2018-09-29 17:20] LABS: COLOR,URINE RED
[2018-09-29 17:22] LABS: ANION GAP 9 mmol/L (5-15); BLOOD UREA NITROGEN 41 mg/dL (7-18); CALCIUM 10.6 MG/DL (8.5-10.1); CARBON DIOXIDE 25 MMOL/L (21-32); CHLORIDE 97 MMOL/L (98-107); CREATININE 1.4 MG/DL (0.55-1.30); POTASSIUM 4.1 MMOL/L (3.5-5.1); SODIUM 131 MMOL/L (136-145)
[2018-09-29 17:24] LABS: HEMATOCRIT 26.6 % (37.0-47.0); HEMOGLOBIN 8.7 G/DL (12.0-16.0); MEAN CORPUSCULAR VOLUME 96 FL (80-99); PLATELET COUNT 580 K/UL (150-450); RED BLOOD COUNT 2.76 M/UL (4.20-5.40); RED CELL DISTRIBUTION WIDTH 16.9 % (11.6-14.8)
[2018-09-29 17:26] LABS: ALANINE AMINOTRANSFERASE 27 U/L (12-78); ALBUMIN/GLOBULIN RATIO 0.3 (1.0-2.7); ALKALINE PHOSPHATASE 134 U/L (46-116); ASPARTATE AMINO TRANSFERASE 49 U/L (15-37); BILIRUBIN,TOTAL 0.5 MG/DL (0.2-1.0); WHITE BLOOD COUNT 24.1 K/UL (4.8-10.8)
--- NOTE | 2018-09-29 17:28 | Emergency Room Report ---
History of Present Illness General Chief Complaint: Abnormal Labs Source: Patient, Medical Record Present Illness HPI 78-year-old female presents ED for evaluation. Brought in by EMS from senior care facility. Noted to have low hemoglobin on recent labs drawn. 6.7. Patient is asked trach is on ventilator. History of ESRD and is on dialysis. No reported rectal bleeding. No hematemesis. No other aggravating relieving factors. No other associated symptoms Allergies: Coded Allergies: No Known Allergies (Unverified , 07/25/18) Patient History Past Medical History: HTN, AFib, COPD, GERD, renal disease, dialysis Pertinent Family History: none Social History: Denies: smoking, alcohol use, drug use Last Menstrual Period: n/a Now: No Immunizations: UTD Reviewed Nursing Documentation: PMH: Agreed; PSxH: Agreed Nursing Documentation-PMH Past Medical History: No History, Except For Hx Cardiac Problems: Yes - a-fib, HTN Hx Hypertension: Yes Hx COPD: Yes Hx Diabetes: Yes - esrd Hx Cancer: Yes Hx Gastrointestinal Problems: Yes - Gall bladder removed, GERD Hx Dialysis: Yes Hx Neurological Problems: Yes - dementia Hx Cerebrovascular Accident: No Hx Dementia: Yes Review of Systems All Other Systems: negative except mentioned in HPI Physical Exam Vital Signs Date Time Temp Pulse Resp B/P (MAP) Pulse Ox O2 Delivery O2 Flow Rate FiO2 09/29/18 15:41 98.4 61 22 95/70 98 Trach Collar 09/29/18 15:50 40 Sp02 EP Interpretation: reviewed, normal General Appearance: alert, GCS 15, non-toxic, cachetic, thin Head: normocephalic, atraumatic Eyes: bilateral eye normal inspection, bilateral eye PERRL ENT: hearing grossly normal, normal pharynx, no angioedema, normal voice Neck: full range of motion, supple/symm/no masses, tracheotomy Respiratory: chest non-tender, lungs clear, normal breath sounds, speaking full sentences Cardiovascular #1: regular rate, rhythm, no edema Cardiovascular #2: 2+ carotid (R), 2+ carotid (L), 2+ radial (R), 2+ radial (L) , 2+ dorsalis pedis (R), 2+ dorsalis pedis (L) Gastrointestinal: normal bowel sounds, non tender, soft, non-distended, no guarding, no rebound Rectal: deferred Genitourinary: normal inspection, no CVA tenderness Musculoskeletal: back normal, gait/station normal, normal range of motion, non- tender Neurologic: alert, oriented x3, responsive, motor strength/tone normal, sensory intact, speech normal Psychiatric: judgement/insight normal, memory normal, mood/affect normal, no suicidal/homicidal ideation Reflexes: 3+ bicep (R), 3+ bicep (L), 3+ tricep (R), 3+ tricep (L), 3+ knee (R) , 3+ knee (L) Skin: normal color, no rash, warm/dry, well hydrated Lymphatic: no adenopathy Procedures Critical Care Time Critical Care Time i. I feel this is a highly complex case requiring extensive working including EKG/Rhythm strip, Xray/CT/US, Blood/urine lab work, repeat exams while in ED, and administration of strong opiates/narcotics for pain control, admission to hospital or close patient follow up. Total time: 60 min bedside evaluation and treatment excludes procedures (EKG). Reason for critical care: hypotensive, anemia, ESRD Possible complications: hypotension, hypertension, AK, shock, arrhythmias, metabolic acidosis, end organ damage, respiratory failure. Interventions: labs, IVFS, EKG, central line, pressors. broad spectrum abx Course: Patient presenting for low hemoglobin of 6.7. Hemoglobin here 8.7. Patient remains profoundly hypotensive. Not improving with IV fluid boluses. White count elevated. Consideration for septic shock. Central line placed. Pressors started. Broad spectrum abx given. Episode of atrial fibrillation. Given Lopressor Consultations: nursing staff, EMS, family Performed by: Dr Rojas Tolerated well condition = critical j. because of unstable vital signs this patient had a condition that could potentially threaten life or limb. I feel this is a critical patient who required my full attention while patient was considered critical. Total Critical Care Time excluding procedures was greater than 60 minutes Central Line Central Line : Consent: Emergent Central Line Lumen: triple Maximal Sterile Barrier Tech: yes cap, yes mask, yes sterile gown, yes sterile gloves, yes large sterile sheet, yes hand hygiene, yes chlorhexidine prep Central Line Postion: femoral (L) Anesthesia: Lidocaine Complications: none Central Line Post Position: sutured, good blood return Attempts: One Patient Tolerated: Well Complications: None Medical Decision Making Diagnostic Impression: Primary Impression: Anemia Qualified Codes: D64.9 - Anemia, unspecified Additional Impressions: Sepsis Qualified Codes: A41.9 - Sepsis, unspecified organism UTI (urinary tract infection) Qualified Codes: N39.0 - Urinary tract infection, site not specified; R31.9 - Hematuria, unspecified ESRD needing dialysis Septic shock ER Course Hospital Course 78-year-old female presents for low hemoglobin, hypotensive Differential diagnoses include: Pneumonia, UTI, sepsis, dehydration, anemia Clinical course Patient placed on stretcher. 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 After initial history and physical, I ordered labs, IV fluids, EKG Labs - BUN/Cr elevated, marked leukocytosis, UA + blood + bacteria. Hb 8.7 EKG - atrial fibrilation with RVR Patient remaining hypotensive despite fluid bolus. Consideration for sepsis. Discussed with son and he agrees for invasive treatment Central line placed. Pressors started. Vancomycin given Hb 8.7 we'll withhold transfusion for now. Given Lopressor for A. fib Case discussed with Dr Melara and they agreed to admit patient to their service for further care and support I feel this is a highly complex case requiring extensive working including EKG/ Rhythm strip, Xray/CT/US, Blood/urine lab work, repeat exams while in ED, and administration of strong opiates/narcotics for pain control, admission to hospital or close patient follow up. Diagnosis - anemia, sepsis, UTI, ESRD on dilaysis, septic shock Patient admitted to ICU in critical condition Labs Test 09/29/18 16:06 09/29/18 16:26 09/29/18 18:26 White Blood Count 24.1 K/UL (4.8-10.8) Red Blood Count 2.76 M/UL (4.20-5.40) Hemoglobin 8.7 G/DL (12.0-16.0) Hematocrit 26.6 % (37.0-47.0) Mean Corpuscular Volume 96 FL (80-99) Mean Corpuscular Hemoglobin 31.3 PG (27.0-31.0) Mean Corpuscular Hemoglobin Concent 32.5 G/DL (32.0-36.0) Red Cell Distribution Width 16.9 % (11.6-14.8) Platelet Count 580 K/UL (150-450) Mean Platelet Volume 5.9 FL (6.5-10.1) Neutrophils (%) (Auto) % (45.0-75.0) Lymphocytes (%) (Auto) % (20.0-45.0) Monocytes (%) (Auto) % (1.0-10.0) Eosinophils (%) (Auto) % (0.0-3.0) Basophils (%) (Auto) % (0.0-2.0) Differential Total Cells Counted 100 Neutrophils % (Manual) 89 % (45-75) Lymphocytes % (Manual) 4 % (20-45) Monocytes % (Manual) 4 % (1-10) Eosinophils % (Manual) 0 % (0-3) Basophils % (Manual) 0 % (0-2) Band Neutrophils 3 % (0-8) Platelet Estimate Increased Platelet Morphology Normal Hypochromasia 1+ Anisocytosis 1+ Prothrombin Time 10.0 SEC (9.30-11.50) Prothromb Time International Ratio 0.9 (0.9-1.1) Activated Partial Thromboplast Time 30 SEC (23-33) Sodium Level 131 MMOL/L (136-145) Potassium Level 4.1 MMOL/L (3.5-5.1) Chloride Level 97 MMOL/L (98-107) Carbon Dioxide Level 25 MMOL/L (21-32) Anion Gap 9 mmol/L (5-15) Blood Urea Nitrogen 41 mg/dL (7-18) Creatinine 1.4 MG/DL (0.55-1.30) Estimat Glomerular Filtration Rate mL/min (>60) Glucose Level 106 MG/DL (74-106) Calcium Level 10.6 MG/DL (8.5-10.1) Total Bilirubin 0.5 MG/DL (0.2-1.0) Aspartate Amino Transf (AST/SGOT) 49 U/L (15-37) Alanine Aminotransferase (ALT/SGPT) 27 U/L (12-78) Alkaline Phosphatase 134 U/L (46-116) Total Protein 8.5 G/DL (6.4-8.2) Albumin 2.0 G/DL (3.4-5.0) Globulin 6.5 g/dL Albumin/Globulin Ratio 0.3 (1.0-2.7) Lipase 85 U/L (73-393) Urine Color Red Urine Appearance Cloudy Urine pH 7 (4.5-8.0) Urine Specific [place] 1.010 (1.005-1.035) Urine Protein 4+ (NEGATIVE) Urine Glucose (UA) Negative (NEGATIVE) Urine Ketones 1+ (NEGATIVE) Urine Blood 5+ (NEGATIVE) Urine Nitrite Negative (NEGATIVE) Urine Bilirubin Negative (NEGATIVE) Urine Urobilinogen Normal MG/DL (0.0-1.0) Urine Leukocyte Esterase 2+ (NEGATIVE) Urine RBC Tntc /HPF (0 - 2) Urine WBC 40-60 /HPF (0 - 2) Urine Squamous Epithelial Cells Few /LPF (NONE/OCC) Urine Bacteria Many /HPF (NONE) Lactic Acid Level 0.80 mmol/L (0.4-2.0) EKG Diagnostic Results Rate: tachycardiac Rhythm: other - afib ST Segments: no acute changes ASA given to the pt in ED: No Rhythm Strip Diag. Results EP Interpretation: yes Rhythm: no PVC's, no ectopy Last Vital Signs Date Time Temp Pulse Resp B/P (MAP) Pulse Ox O2 Delivery O2 Flow Rate FiO2 09/29/18 17:16 98.0 09/29/18 16:50 110 16 69/29 94 09/29/18 16:13 Mechanical Ventilator 40 Status: improved Disposition: ADMITTED INPATIENT Condition: Critical Referrals: Chase He MD (PCP) Emil Rojas MD Sep 29, 2018 17:28
[2018-09-29] MEDS ORDERED: QUETIAPINE FUMA25 MG GT (17:48)
[2018-09-29] MEDS ORDERED: AMIODARONE HCL200 MG GT (17:48)
[2018-09-29] MEDS ORDERED: MILK OF MA400 MG/51 ORAL (17:48)
[2018-09-29] MEDS ORDERED: ZOLPIDEM TARTRAT5 MG GT (17:48)
[2018-09-29] MEDS ORDERED: DULCOLAX10 MG RC (17:48)
[2018-09-29] MEDS ORDERED: ARTIFICIAL TEAR15 ML BOTH EYES (17:48)
[2018-09-29] MEDS ORDERED: VITAMIN C500 MG/11 GT (17:48)
[2018-09-29] MEDS ORDERED: MINOXIDIL2.5 MG GT (17:48)
[2018-09-29] MEDS ORDERED: FLEET ENEMA133 ML RECTAL (17:48)
[2018-09-29] MEDS ORDERED: Lidocaine 1% Plain 30 ml INJ ONE (17:48)
[2018-09-29] MEDS ORDERED: NORCO 5-325 TA1 EACH GT ×2 (17:48)
[2018-09-29] MEDS ORDERED: Levophed 4mg/4mL Inj IV ONE ×2 (18:19→18:39)
[2018-09-29] MEDS ORDERED: LORazepam Inj 2mg/ml 1ml IV ONE (18:30)
[2018-09-29] MEDS ORDERED: Morphine Sulfate 4mg/ml Inj (IV/IM USE ONLY) IVP ONE (18:30)
--- NOTE | 2018-09-29 18:45 | NUR ---
ED Nurse Note: TLC inserted by Dr. Cabrera at left femoral. Levophed 8mg in NaCL 245ml verbal order by 1844: Levophed started at 10mcg/min per Dr. Cabrera's verbal order. Addendum: 09/29/18 at 1853 by [email or web address] ED Nurse Note: TLC inserted by Dr. Cabrera at left femoral. Levophed 8mg in NaCL 245ml verbal order by 1844: Levophed started at 10mcg/min via TLC central line per Dr. Cabrera's verbal order. unable to change IV spreadsheet documentation
--- NOTE | 2018-09-29 18:51 | NUR ---
RESPIRATORY NOTE: Received pt still in ED. Pt on AC 8, 450VT, 40%, PEEP +5. Pt is trach-dependent w/ a cuffed, Shiley 8 tube. Pt is alert/awake, follows commands. B/S geni. rhonchi, sxn small amounts of thick/thin, pale-yellow secretions. Vent plugged into red outlet, ambubag at bedside. Pt in no apparent distress at this time. Awaiting to move pt up to the floors. Will continue plan of care.
[2018-09-29] MEDS ORDERED: Metoprolol 5mg/5ml Inj IVP ONE (19:00)
--- NOTE | 2018-09-29 19:06 | NUR ---
ED Nurse Note: attempted to give report to ICU. Per CN in ICU, not ready to take the report at this time. Will call back in five min.
[2018-09-29] MEDS ORDERED: Acetaminophen 650 MG SUPP RECTAL PRN (19:15)
[2018-09-29] MEDS ORDERED: Albuterol/Ipratropium 3ml neb HHN PRN (19:15)
--- NOTE | 2018-09-29 19:26 | NUR ---
ED Nurse Note: Telephone report given to BALDO Samano. Pt is transfered to 246G by BALDO Johnston with RT. Pt is on Levophed 8mg in NS 245ml @ 12mcg/min and Vanco 1gm @167ml/hr. Pt remains stable. No belongings came with the pt. Type and Cross tubes were sent again by Gianna per slab stripper's request.
--- NOTE | 2018-09-29 19:50 | NUR ---
NURSE NOTES: Admitted from ED this 78yo female; a resident of [facility] for anemia and sepsis. Pt arrives via gurney with 3 ER nurses; in no apparent distress; lethargic but opens eyes to pain; vented per trach. Pt has had multiple admissions here in the past. Pt has history of ESRD; is on hemodialysis q MWF. She has an AVgraft on Left upper arm with mod strong bruit and thrrill. On the vent via trach Shiley 8; settings of AC8 TV450. fio2.40 peep5, sats 98%; NSR on the monitor, afebrile. Left femoral TLC inserted in ER this afternoon and pt on Levophed gtt at 14mcg/min; current BP 115/25. Larrge decubitus ulcer on sacral area noted with tunneling(see WCP) and several wound scabs on heels and lower leg. Anuric. Will continue to monitor Vital signs and titrate Levophed accordingly
--- NOTE | 2018-09-29 21:30 | History and Physical Report ---
DATE OF ADMISSION: 09/29/2018 CHIEF COMPLAINT: Abnormally low hemoglobin. HISTORY OF PRESENT ILLNESS: This is a 78-year-old female from [facility]. I was called earlier today about abnormally low hemoglobin of 6.6. [facility] the patient for transfusion here in this hospital. Upon arrival, it turns out that the patient is diaphoretic, hypotensive, and altered, and her white count was 24,000 indicating that the patient is septic. The patient is admitted to intensive care unit on pressors. The patient is nonverbal. I am seeing the patient in the emergency department together with Dr. Rojas. I saw the patient @ [place] several days ago and she was at her baseline. The patient is a ventilator dependent dialysis patient. PAST MEDICAL HISTORY: 1. Ventilator-dependent respiratory failure. 2. Type 2 diabetes mellitus. 3. End-stage renal failure. 4. Chronic atrial fibrillation. 5. Peripheral vascular disease. 6. Anemia of chronic kidney disease. 7. Status post G-tube. 8. Anxiety. 9. Bilateral lower extremity ulcers. MEDICATIONS: Seroquel, amiodarone, Tylenol as needed, apixaban, lansoprazole, minoxidil, ascorbic acid, zinc sulfate, Nephro-Malik, Odell as needed, and milk of magnesia as needed. ALLERGIES: No known drug allergies. FAMILY HISTORY: Unable to obtain due to mental status. SOCIAL HISTORY: Unable to obtain due to mental status. REVIEW OF SYSTEMS: Unable to obtain due to mental status. PHYSICAL EXAMINATION: GENERAL: This is an elderly, chronically ill-appearing, cachectic female, who is diaphoretic. The patient is on the ventilator. VITAL SIGNS: Blood pressure initially was 76/17 with a heart rate of 101, rapid atrial fibrillation, currently after IV fluid bolus and pressors, blood pressure 116/71 with a heart rate of about 110s, rapid atrial fibrillation, respirations 19, and temperature is 98. HEENT: Head is normocephalic and atraumatic. Pupils are equal, round, and reactive to light. NECK: She has a midline tracheostomy. There was no jugular venous distention. LUNGS: Bilateral rhonchi. HEART: Irregularly irregular and tachycardic. ABDOMEN: Soft, nontender. She has a G-tube. EXTREMITIES: No clubbing, cyanosis, or edema. She has bilateral ankle ulcers. NEUROLOGIC: She is drowsy, but arousable. There were no gross focal findings. LABORATORY AND ANCILLARY DATA: CBC shows a white count of 24,100, hematocrit 26.6. Serum chemistry, sodium 131, potassium 4.1, BUN 41, creatinine 1.4, and calcium 10.6. Culture results are pending. The chest x-ray results are pending. Urinalysis, too numerous to count rbcs and 40 to 60 white blood cells and many bacteria. ASSESSMENT: 1. Septic shock. 2. Ventilator-dependent respiratory failure. 3. Type 2 diabetes mellitus. 4. End-stage renal failure. 5. Chronic atrial fibrillation. 6. Peripheral vascular disease. 7. Anemia of chronic kidney disease. 8. Status post G-tube. 9. Anxiety. 10. Bilateral lower extremity ulcers. PLAN: 1. Broad-spectrum IV antibiotics. 2. Continue medications from the [facility] except antihypertensive medications. 3. Erythropoietin. 4. Hemodialysis most likely to be done on Wednesday, , and Wednesday. Chase He M.D. DR: TESSIE JOB#: [id number] CC: SARAH
--- NOTE | 2018-09-29 22:00 | NUR ---
NURSE NOTES: Dr Mix called and gave additional orders. HD ordered for dipika with IRC. Levophed gtt now at 10mcg/min. Pt asleep, calm and no distress. PEG patent; NPO
[2018-09-30] VITALS (50 sets, daily range): BP systolic 98–174; BP diastolic 29–62
[2018-09-30] MEDS ORDERED: Piperacillin/Tazobactam 2.25 GM in D5W 55 ML IVPB SCH ×2
--- NOTE | 2018-09-30 | NUR ---
NURSE NOTES: Skin hot ot touch, temp 101.2 axillary. Tylenol 650mg supp given. Wound culture taken.
[2018-09-30] MEDS: Zoysn 3.37gm in NS 100ML IVPB SCH ×4 (00:14→21:42)
--- NOTE | 2018-09-30 00:15 | NUR ---
NURSE NOTES: Restless, agitated, attempts to pull lines out. Order for restraints obtained, applied on both wrists(soft)
--- NOTE | 2018-09-30 01:30 | NUR ---
NURSE NOTES: Placed pt on P200 mattress. Temp 101, removed extra covers. BP 174/54; HR 125 on afib; titrated Levo down to 5mcg/min
--- NOTE | 2018-09-30 02:00 | NUR ---
NURSE NOTES: HR 136, on afib. Pt known to have hx of Afib. Otherwise mostly sinus rhythm when calm. Levophed gtt now at 5mcg/min.BP 110/44. Will continue to monitor
--- NOTE | 2018-09-30 04:00 | NUR ---
NURSE NOTES: No BM, complete bed bath given. Wound dressings dry and intact. Remains anuric. GT intact, dressing clean and dry. DC'd saline lock on right AC. Redressed left femoral TLC. All ports patent. Oozing serous fluid from left arm. BP stbale on Levop at 5mcg/min. Temp 99.5 axillary
[2018-09-30 05:43] LABS: HEMATOCRIT 17.8 % (37.0-47.0); MEAN CORPUSCULAR VOLUME 97 FL (80-99); PLATELET COUNT 496 K/UL (150-450); RED BLOOD COUNT 1.84 M/UL (4.20-5.40); RED CELL DISTRIBUTION WIDTH 17.1 % (11.6-14.8); WHITE BLOOD COUNT 19.2 K/UL (4.8-10.8)
--- NOTE | 2018-09-30 06:00 | NUR ---
NURSE NOTES: Lab reports Hgb of 5.8. Pt shows no signs of obvious bleeding but looked pale. Called to Dr He, awaiting response
[2018-09-30 06:06] LABS: HEMOGLOBIN 5.8 G/DL (12.0-16.0)
[2018-09-30 06:15] LABS: ALANINE AMINOTRANSFERASE 19 U/L (12-78); ALBUMIN 1.4 G/DL (3.4-5.0); ALKALINE PHOSPHATASE 115 U/L (46-116); ANION GAP 10 mmol/L (5-15); ASPARTATE AMINO TRANSFERASE 20 U/L (15-37); BILIRUBIN,DIRECT 0.2 MG/DL (0.0-0.3); BILIRUBIN,TOTAL 0.5 MG/DL (0.2-1.0); BLOOD UREA NITROGEN 52 mg/dL (7-18); CALCIUM 9.1 MG/DL (8.5-10.1); CARBON DIOXIDE 24 MMOL/L (21-32); CHLORIDE 99 MMOL/L (98-107); CREATININE 1.5 MG/DL (0.55-1.30); LACTATE DEHYDROGENASE 176 U/L (81-234); POTASSIUM 3.4 MMOL/L (3.5-5.1); SODIUM 133 MMOL/L (136-145)
--- NOTE | 2018-09-30 07:04 | NUR ---
RESPIRATORY NOTE: received pt on current vent settings. pt is trached with shiley 8; secured via trach tie/guard. no resp distress noted at this time. no redness seen around stoma. back-up trach and ambu bag at bedside. vent plugged into redoutlet. will cont to monitor.
--- NOTE | 2018-09-30 07:29 | NUR ---
HAND-OFF: Report given to Mily BLAND.
--- NOTE | 2018-09-30 07:34 | NUR ---
NURSE NOTES: Report received from BALDO Morgan
--- NOTE | 2018-09-30 07:46 | NUR ---
NURSE NOTES: Received call from Dr Smith to transfuse 2 unit PRBC during dialysis.Order noted
--- NOTE | 2018-09-30 08:00 | NUR ---
NURSE NOTES: Pt awake when received with no apparent distress. Afebrile at this time.On trach and vent mer 8 with AC 8 Vt 450 Fi)2 40 Peep 5. Pt NPO at this time.GT placement check and intact. HOB elevated to prevent aspiration. Mouth care done.Turned and repositioned.Due for dialysis today, hemoglobin 5.[address] Smith to transfuse 2 units blood during dialysis.Order noted and carried out.AVgraft on Left upper arm with m bruit and thrrill present. Left femoral TLC running Levophed gtt at 5mcg/min. Kept clean and dry. Will continue to monitor.
[2018-09-30] MEDS: Pantoprazole Inj IV SCH (08:56)
[2018-09-30] MEDS: Eliquis 2.5mg tablet ORAL SCH ×2 (08:57→17:32)
--- NOTE | 2018-09-30 09:15 | NUR ---
NURSE NOTES: Pt seen by wound nurse and all dressings changed. Pt turned and repositioned for skin management.
--- NOTE | 2018-09-30 09:53 | NUR ---
RADIOLOGY DEPT CHEST X-RAY DONE-P.DYE
--- NOTE | 2018-09-30 10:10 | NUR ---
NURSE NOTES: Pt turned and repositioned for skin management.Restraints in place with no skin impairment.Kept clean and dry.
--- NOTE | 2018-09-30 10:14 | NUR ---
Social Work This SW met with patient, currently in the ICU who has trach, was from [facility] and receiving Dialysis at [facility] [place] ([facility]). Patient has a POLST signed by son, Negro Dale ([phone]) requesting full code, full treatment and artificial means for nutrition (feeding tube). Advance Directive also on patients chart, stating both sons, Negro and Wes Dale ([phone]) are the decision maker for patient. This Sw contacted son, Negro who confirmed he would like to transfer patient back to [place], along with remaining full code, full treatment as well. Pending progress and further recommendations from the Medical team at this time. Brief emotional support provided to son, who expressed no further needs or concerns at this time.
--- NOTE | 2018-09-30 10:34 | NUR ---
NURSE NOTES:WOUND CARE NOTES:Pt presents with full thickness pressure injury sacrum with deep undermining into L buttocks .Historical arched surgical scar Upper L buttocks.Wound measures(L)3.4cm x (W)3cm x (D)1.5cm ,undermining 12-6 by 12 cm @8o'clock. Scattered Biofilm at base of sacrum with40% yellow slough along borders of wound .minimal non-odorous serous exudate.Non-blanchable erythema with additional scattered partial wounds periwound to R and L buttocks .Unstageable pressure injury R ischium with 95% slough, 5% erythema along margins.Non-blanchable erythema periwound (L)2cm x (W)0.4cm. Stable dry eschar lateral/posterior R tibia.Periwound is clean and pink.(L)3cmx (W)2cm. Stable dry eschar R heel (L)2cm x (W)1.7cm .Periwound blanchable . Pressure injury with 100% eschar ,loose around edges ,padmaja pink borders .No odor or exudate noted.(L)1.7cm x (W)2cm. L forearm edematous and weeping serous exudate. Scattered senile purpuras bilat upper and bilat lower ext. Skin assessed under trach collar and no evidence of skin breakdown noted. Addendum: 09/30/18 at 1106 by Joselin Paiz LVN ADDENDUM TO ABOVE WOUND NOTES:Wound medial /distal R tibia with 100% stable dry eschar (L)2cm x (W)1.6cm. Periwound is pink and dry. Tx.Plan:Cleanse sacral wound with Saline.Loosely pack with Silvasorb impregnated 1/2 inch packing strip .Apply Moisture Barrier paste periwound .Cover with Optifoam drsg Daily and prn. Apply Cavilon Skin Barrier to R ischial wound .Cover with Optifoam drsg .Change every 3 days and prn. Apply Cavilon Skin Barrier to wound medial R tibia.Cover with Optifoam drsg every 7 days and prn. Apply Cavilon Skin Barrier to R heel .Cover with Optifoam drsg. Change every 7 days and prn. Apply Cavilon Skin Barrier to Medial L heel.Cover with Optifoam drsg .Change every 7 days and prn. APM /LATASHA mattress overlay. Reposition at least every 2 hours or as tolerated. Off-load heels with pillow.
--- NOTE | 2018-09-30 11:20 | Nephrology Progress Note ---
Assessment/Plan Plan Urosepsis (GNR) IV Abx per ID. Worsening anemia 2 above -transfuse on HD. ESRD HD Chr. A. Fib - apixaban. Subjective Subjective Less confused. Objective Objective Last 24 Hour Vital Signs Date Time Temp Pulse Resp B/P (MAP) Pulse Ox O2 Delivery O2 Flow Rate FiO2 09/30/18 10:38 70 13 40 09/30/18 10:00 80 18 114/43 (66) 99 09/30/18 09:00 80 18 101/34 (56) 99 09/30/18 08:35 88 22 40 09/30/18 08:00 Mechanical Ventilator 09/30/18 08:00 40 09/30/18 07:02 76 17 40 09/30/18 07:00 98/30 09/30/18 07:00 77 16 98/30 (52) 100 09/30/18 06:45 108 22 114/44 (67) 100 09/30/18 06:30 126 21 132/43 (72) 100 09/30/18 06:15 131 24 117/41 (66) 100 09/30/18 06:03 117/41 09/30/18 06:00 119 15 118/43 (68) 100 09/30/18 05:45 72 15 107/30 (55) 100 09/30/18 05:30 77 17 100 09/30/18 05:15 78 18 101/46 (64) 99 09/30/18 05:11 78 16 40 09/30/18 05:00 75 16 102/35 (57) 100 09/30/18 05:00 102/35 09/30/18 04:45 75 16 103/34 (57) 100 09/30/18 04:30 74 16 105/33 (57) 100 09/30/18 04:15 72 16 105/31 (55) 100 09/30/18 04:00 74 09/30/18 04:00 40 09/30/18 04:00 101/34 09/30/18 04:00 99.5 74 16 101/34 (56) 100 09/30/18 04:00 Mechanical Ventilator 09/30/18 03:45 75 16 102/33 (56) 100 09/30/18 03:33 75 17 40 09/30/18 03:30 75 17 110/41 (64) 100 09/30/18 03:15 75 16 109/34 (59) 100 09/30/18 03:00 74 16 104/35 (58) 100 09/30/18 03:00 104/35 09/30/18 02:45 74 15 100/34 (56) 100 09/30/18 02:30 76 15 103/35 (57) 100 09/30/18 02:15 79 17 106/37 (60) 100 09/30/18 02:00 134 20 110/44 (66) 100 09/30/18 02:00 110/44 09/30/18 01:45 137 18 174/54 (94) 99 09/30/18 01:30 93 24 100 09/30/18 01:16 76 16 40 09/30/18 01:15 76 16 113/33 (59) 100 09/30/18 01:00 101.0 76 17 111/31 (57) 100 09/30/18 01:00 111/31 09/30/18 01:00 101.0 09/30/18 00:45 76 17 114/34 (60) 100 09/30/18 00:30 77 16 106/29 (54) 100 09/30/18 00:15 76 17 119/33 (61) 100 09/30/18 00:00 101.2 75 16 119/33 (61) 100 09/30/18 00:00 75 16 119/33 (61) 100 09/30/18 00:00 40 09/30/18 00:00 Mechanical Ventilator 09/30/18 00:00 119/33 09/30/18 00:00 76 09/29/18 23:45 75 16 119/35 (63) 100 09/29/18 23:30 73 16 113/32 (59) 100 09/29/18 23:19 73 17 40 09/29/18 23:15 73 14 111/30 (57) 100 09/29/18 23:00 74 15 107/31 (56) 100 09/29/18 23:00 107/31 09/29/18 22:45 78 19 100/25 (50) 100 09/29/18 22:36 101/25 09/29/18 22:30 83 15 101/25 (50) 100 09/29/18 22:15 128 15 83/46 (58) 100 09/29/18 22:00 130 23 93/52 (66) 100 09/29/18 22:00 93/52 09/29/18 21:45 84 16 104/24 (50) 100 09/29/18 21:30 82 14 105/29 (54) 100 09/29/18 21:15 125 18 104/28 (53) 100 09/29/18 21:00 125 20 98/32 (54) 99 09/29/18 21:00 98/32 09/29/18 20:59 131 15 40 09/29/18 20:49 40 09/29/18 20:45 131 12 102/35 (57) 100 09/29/18 20:30 127 15 94/26 (48) 99 09/29/18 20:16 40 09/29/18 20:15 78 15 108/27 (54) 99 09/29/18 20:00 Mechanical Ventilator 09/29/18 20:00 76 15 116/25 (55) 100 09/29/18 20:00 98.8 77 16 102/34 (56) 09/29/18 20:00 77 09/29/18 20:00 116/25 09/29/18 19:29 98.0 120 16 104/46 100 Mechanical Ventilator 40 09/29/18 19:25 111/47 09/29/18 19:20 104/71 09/29/18 19:20 120 16 104/46 100 Mechanical Ventilator 09/29/18 19:15 101/46 09/29/18 19:10 90/41 09/29/18 19:09 145 113/39 09/29/18 19:05 113/39 09/29/18 19:00 110/45 09/29/18 18:55 116/71 09/29/18 18:50 105/58 09/29/18 18:49 145 19 40 09/29/18 18:45 125 17 46/37 98 Mechanical Ventilator 09/29/18 18:45 46/37 09/29/18 17:34 101 17 76/17 98 Mechanical Ventilator 40 09/29/18 17:21 111 18 40 09/29/18 17:16 98.0 09/29/18 16:50 110 16 69/29 94 09/29/18 16:13 122 21 Mechanical Ventilator 40 09/29/18 16:09 128 23 40 1/31/19 15:50 98.0 120 20 96/26 95 Mechanical Ventilator 40 09/29/18 15:41 98.4 61 22 95/70 98 Trach Collar Intake and Output 09/29/18 09/30/18 19:00 07:00 Intake Total 867.47 ml Output Total 75 ml 0 ml Balance -75 ml 867.47 ml Intake Oral 0 ml IV Total 867.47 ml Output Urine Total 75 ml 0 ml # Voids 1 Laboratory Tests 09/29/18 16:06: White Blood Count 24.1*H, Red Blood Count 2.76L, Hemoglobin 8.7L, Hematocrit 26.6L, Mean Corpuscular Volume 96, Mean Corpuscular Hemoglobin 31.3H, Mean Corpuscular Hemoglobin Concent 32.5, Red Cell Distribution Width 16.9H, Platelet Count 580H, Mean Platelet Volume 5.9L, Neutrophils (%) (Auto) , Lymphocytes (%) (Auto) , Monocytes (%) (Auto) , Eosinophils (%) (Auto) , Basophils (%) (Auto) , Differential Total Cells Counted 100, Neutrophils % ( Manual) 89H, Lymphocytes % (Manual) 4L, Monocytes % (Manual) 4, Eosinophils % ( Manual) 0, Basophils % (Manual) 0, Band Neutrophils 3, Platelet Estimate IncreasedH, Platelet Morphology Normal, Hypochromasia 1+, Anisocytosis 1+, Prothrombin Time 10.0, Prothromb Time International Ratio 0.9, Activated Partial Thromboplast Time 30, Sodium Level 131L, Potassium Level 4.1, Chloride Level 97L, Carbon Dioxide Level 25, Anion Gap 9, Blood Urea Nitrogen 41H, Creatinine 1.4H, Estimat Glomerular Filtration Rate , Glucose Level 106, Calcium Level 10.6H, Total Bilirubin 0.5, Aspartate Amino Transf (AST/SGOT) 49H , Alanine Aminotransferase (ALT/SGPT) 27, Alkaline Phosphatase 134H, Total Protein 8.5H, Albumin 2.0L, Globulin 6.5, Albumin/Globulin Ratio 0.3L, Lipase 85 09/29/18 16:26: Urine Color Red, Urine Appearance Cloudy, Urine pH 7, Urine Specific [place] 1.010, Urine Protein 4+H, Urine Glucose (UA) Negative, Urine Ketones 1+H, Urine Blood 5+H, Urine Nitrite Negative, Urine Bilirubin Negative, Urine Urobilinogen Normal, Urine Leukocyte Esterase 2+H, Urine RBC TntcH, Urine WBC 40-60H, Urine Squamous Epithelial Cells Few, Urine Bacteria ManyH 09/29/18 18:26: Lactic Acid Level 0.80 09/30/18 04:30: White Blood Count 19.2H, Red Blood Count 1.84L, Hemoglobin 5.8#*L, Hematocrit 17.8#L, Mean Corpuscular Volume 97, Mean Corpuscular Hemoglobin 31.5H, Mean Corpuscular Hemoglobin Concent 32.6, Red Cell Distribution Width 17.1H, Platelet Count 496H, Mean Platelet Volume 5.9L, Neutrophils (%) (Auto) , Lymphocytes (%) (Auto) , Monocytes (%) (Auto) , Eosinophils (%) (Auto) , Basophils (%) (Auto) , Differential Total Cells Counted 100, Neutrophils % ( Manual) 91H, Lymphocytes % (Manual) 2L, Monocytes % (Manual) 4, Eosinophils % ( Manual) 1, Basophils % (Manual) 1, Band Neutrophils 1, Platelet Estimate IncreasedH, Platelet Morphology Normal, Hypochromasia 2+, Anisocytosis 1+, Sodium Level 133L, Potassium Level 3.4L, Chloride Level 99, Carbon Dioxide Level 24, Anion Gap 10, Blood Urea Nitrogen 52H, Creatinine 1.5H, Estimat Glomerular Filtration Rate , Glucose Level 110H, Calcium Level 9.1, Total Bilirubin 0.5, Aspartate Amino Transf (AST/SGOT) 20, Alanine Aminotransferase ( ALT/SGPT) 19, Alkaline Phosphatase 115, Total Protein 5.8#L, Albumin 1.4L, Magnesium Level 2.1, Direct Bilirubin 0.2, Lactate Dehydrogenase 176 09/30/18 09:55: Arterial Blood pH 7.418, Arterial Blood Partial Pressure CO2 37.4, Arterial Blood Partial Pressure O2 104.2H, Arterial Blood HCO3 23.6, Arterial Blood Oxygen Saturation 97.3, Arterial Blood Base Excess -0.8, Silverio Test Positive Height (Feet): 5 Height (Inches): 3.00 Weight (Pounds): 144 Objective On Vent. Cv IRR +tach Lungs CTA Abd SNT. BS + E No CCE Chase He MD Sep 30, 2018 11:20
--- NOTE | 2018-09-30 11:31 | NUR ---
RD ASSESSMENT & RECOMMENDATIONS SEE CARE ACTIVITY FOR COMPLETE ASSESSMENT DAILY ESTIMATED NEEDS: Needs based on Critical care + Wounds + ESRD w/ HD/ 60kg 22-30 kcals/kg 1581-9008 total kcals 1.5-2.0 g protein/kg 90-120g g total protein Fluid per MD on HD mL/kg total fluid mLs NUTRITION DIAGNOSIS: * Swallowing difficulty R/T respiratory status as evidenced by pt is trach and PEG dep. * Increased kcal/prot needs R/T wound healing as evidenced by pt admitted w/ multiple wounds advanced wound, refer to WC eval. * Altered nutrition related lab values R/T ESRD dx, clinical condition as evidenced by low Hgb (5.8), critical WBC now trending down, low BP/ on pressor support. CURRENT TF:NPO ENTERAL NUTRITION RECOMMENDATIONS: Nepro @35ml/hr x 24 hrs + Prosource 1pkt BID to provide 840ml, 1512 kcal, 78g + 22g prot, 611ml free water 1. MEDICALLY ABLE: start NEPRO at 15ml/hr for 6 hrs, advance 10ml.hr q4-6 hrs as tolerated to goal rate of 35ml/hr. 2. add Prosource 1 pack BID to better meet est protein needs 3. HOB over 30 degrees, flush per MD. FEED W/ HEMODYNAMIC STABILITY, OTHERWISE TROPHIC FEEDS OF 5-10ML/HR FOR GUT INTEGRITY ADDITIONAL RECOMMENDATIONS: * Re-calibrate bed scale (per SNF 09/28 wts: 132#, 60kg) * Wound care: add DNUIA BID + Nephrovite x1 daily -> rec VIT C per nephro MD * Trophic feeds w/ hypotension and pressor support . .
--- NOTE | 2018-09-30 12:10 | NUR ---
NURSE NOTES: Awake , tracheostomy care done and dressing changed . Kept clean dry and intact. turned and repositioned.HOB elevated to prevent aspiration. Continue to monitor.
--- NOTE | 2018-09-30 14:21 | NUR ---
NURSE NOTES: Pt was seen by Dr Smiht with order for wound consult with Dr Benitez.Order noted. Turned and repositioned. Kept clean dry and comfortable.
--- NOTE | 2018-09-30 14:41 | Diagnostic Imaging Report ---
Indication: Dyspnea Technique: One view of the chest Comparison: 08/31/2018 Findings: Bilateral pleural effusions appear similar to the previous exam on the right, increased on the left. There is extensive airspace consolidation bilaterally, which is increased from the prior exam. The heart is borderline enlarged. There is a tracheostomy. The aorta is calcified Impression: Bilateral pleural effusions, similar on the right previous exam of one month earlier, increased on the left. Bilateral extensive interstitial and airspace infiltrates versus edema, new since prior study
--- NOTE | 2018-09-30 15:00 | NUR ---
NURSE NOTES: Levophed held, parameters met at this time
--- NOTE | 2018-09-30 16:04 | NUR ---
NURSE NOTES: PATIENT TURNED AND REPOSITIONED. MOUTH CARE DONE.KEPT CLEAN DRY AND COMFORTABLE. DIALYSIS UNABLE TO BE DONE ON TIME DUR TO LEAK FROM THE MACHINE. ILL CONTINUE TO MONITOR PT.
--- NOTE | 2018-09-30 16:15 | Consultation ---
DATE OF CONSULTATION: 09/30/2018 INFECTIOUS DISEASES CONSULTATION CONSULTING PHYSICIAN: Omid Morfin M.D. REFERRING PHYSICIAN: Chase He M.D. REASON FOR CONSULTATION: Leukocytosis. HISTORY OF PRESENTING ILLNESS: This is a 78-year-old lady with history of diabetes, renal failure, respiratory failure, status post tracheostomy, status post G-tube placement, who comes in with hypotension and altered mental status and she was found to have leukocytosis. She has been admitted to the ICU and an Infectious Diseases consultation has been obtained for antibiotics. PAST MEDICAL HISTORY: 1. History of respiratory failure, status post tracheostomy. 2. Diabetes. 3. Renal failure. 4. Atrial fibrillation. 5. Peripheral vascular disease. 6. Anemia. 7. Status post G-tube placement. 8. Anxiety. 9. History of bilateral lower extremity ulcer. SOCIAL HISTORY: Unknown. FAMILY HISTORY: Unknown. REVIEW OF SYSTEMS: Unable to obtain currently. MEDICATIONS: As an inpatient, she is on Epogen, chlorhexidine, gluconate, vancomycin, Protonix, Eliquis, Zosyn, norepinephrine, albuterol, ipratropium, Zofran, and Tylenol. ALLERGIES: No known drug allergies. PHYSICAL EXAMINATION: VITAL SIGNS: Temperature of 99.5, T-max of 101.2, pulse of 70, respiratory rate of 18, blood pressure 101/34, and O2 saturation of 99%. HEENT: Pupils equally reactive to light and accommodation. Mouth appears clean without thrush. NECK: Supple. No adenopathy. No JVD. Tracheostomy site is clean. CARDIOVASCULAR: Regular rate and rhythm. No murmurs. LUNGS: Clear to auscultation bilaterally. No crackles. No wheezes. ABDOMEN: Soft and nontender. No organomegaly. G-tube site appears clean. EXTREMITIES: No cyanosis, no clubbing, no edema. LABORATORY AND DIAGNOSTIC DATA: White count of 24 on 09/29/2018, white count 19 today, hemoglobin 5.8, hematocrit 17.8, MCV 97, platelet count of 196 with neutrophils of 91%. Sodium 133, potassium 3.4, chloride 99, bicarbonate 24, BUN 52, creatinine 1.5, glucose 110, calcium 9.1, total bilirubin 0.5, direct bilirubin 0.2. AST 20, ALT 19, and alkaline phosphatase 115. LDH 176. Total protein 5.8. Albumin 1.4. Lipase of 85. UA showing 40 to 60 white cells. Urine culture is growing gram-negative rods more than 100,000 colonies. Wound cultures are pending. ASSESSMENT: This is a 78-year-old lady with history of diabetes and renal failure, on dialysis, who comes in with hypotension and is found to have. 1. Gram-negative urinary tract infection. 2. Septic shock. 3. Leukocytosis is improving. 4. Diabetes. 5. Renal failure. PLAN: 1. Continue IV vancomycin and Zosyn for now. 2. We will follow up cultures and adjust antibiotics accordingly. I would like to thank, Dr. He, for this consultation. Omid Morfin M.D. DR: EDUIN JOB#: [id number] CC: Chase He M.D.; Fax#: [phone]
--- NOTE | 2018-09-30 16:46 | NUR ---
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 98.5 HR 125 RR 22 B/P 95/70 AC 8 TV 450 FIO2 40% PEEP 5 WBC 24.1 H/H 5.8/17.8 BUN 41 CR 1.4 CXR= BILATERAL PLEURAL EFFUSION IS: IV BOLUS NS X 1 LITER ADMITTED TO ICU @ 1920 ICU STATUS DCP RETURN TO [facility]
[2018-09-30] MEDS: Vancomycin 750mg/D5W 275ml IVPB SCH ×2 (17:31)
--- NOTE | 2018-09-30 18:00 | Consultation ---
DATE OF CONSULTATION: 09/30/2018 PULMONARY CONSULTATION CONSULTING PHYSICIAN: Andres Allan M.D. HISTORY OF PRESENT ILLNESS: This is a 78-year-old female who is a resident at [facility] with ESRD, on dialysis and chronic respiratory failure, status post tracheostomy. She was transferred to [facility] after found to be anemic. She was also found to have markedly elevated white count, suspicious of a septic process. The patient was started on Levophed and is currently in ICU. Her vent settings are AC , tidal volume of 500, and FiO2 100%. The patient is nonverbal and therefore, no further history. PAST MEDICAL HISTORY: Notable for ESRD on dialysis, diabetes mellitus, ventilator dependent respiratory failure, chronic atrial fibrillation, peripheral vascular disease, anemia, and chronic G-tube. MEDICATIONS: Include amiodarone, Seroquel, Tylenol, apixaban, Protonix, minoxidil, ascorbic acid, zinc, Nephro-Malik, [place], and milk of magnesia. ALLERGIES: None. FAMILY HISTORY: Noncontributory. SOCIAL HISTORY: She is a jail resident. REVIEW OF SYSTEMS: Unobtainable. PHYSICAL EXAMINATION: GENERAL: Reveals a 78-year-old female. HEENT: Unremarkable. CHEST: Shows decreased breath sounds bilaterally with normal heart sounds. ABDOMEN: Soft. There is a tracheostomy in place. EXTREMITIES: There is no peripheral edema, cyanosis, or clubbing. NEUROLOGIC: Nonfocal. She has bilateral lower extremity skin breakdown. LABORATORY DATA: Lab testing shows white count 24,000, hemoglobin is 5. Urinalysis shows pyuria. Creatinine is 1.4. IMPRESSION: 1. Shock, possibly septic. 2. UTI. 3. ESRD, on dialysis. 4. Ventilator dependent respiratory failure. 5. Tracheostomy. 6. Diabetes mellitus. 7. Chronic atrial fibrillation. DISCUSSION: Start broad-spectrum antibiotics. We will continue AC mode. We will increase FiO2 as tolerated. Blood transfusion as required. Hemodialysis, suspect the patient will need ID consultation and broad-spectrum antibiotics and tailoring of therapy depending on culture results. Andres Allan M.D. DR: DANIELA JOB#: [id number] CC:
--- NOTE | 2018-09-30 18:06 | NUR ---
NURSE NOTES: ADLS DONE, PT CLEAN AND DRY. HOB ELEVATED TO PREVENT ASPIRATION.KEPT ON CLOSE MONITORING.
--- NOTE | 2018-09-30 19:04 | NUR ---
HAND-OFF: Report given to BALDO Morgan.Dialysis started and first unit PRBC started.No ADR noted at this time.
--- NOTE | 2018-09-30 19:08 | NUR ---
RESPIRATORY NOTE: Received pt on AC 8, 450VT, 40%, PEEP +5. Pt is trach-dependent w/ a cuffed, Shiley 8 tube. Pt is alert/awake, follows commands. Both hands on soft restraints as she tends to pull out her tubings. B/S geni. rhonchi, sxn small amounts of thick, yellow-green secretions. Vent plugged into red outlet, ambubag & spare trach kit at bedside. Pt in no apparent distress at this time. Will continue plan of care.
--- NOTE | 2018-09-30 19:30 | NUR ---
NURSE NOTES: Received pt in no apparent distress; awake, alert mildly restless. Currently undergoing hemodialysis and is being attended by HR RN from [facility]. Pt continues to be on the vent via trach and appears to be tolerating current vent settings. Remains impulsive and has the tendecny to pull tubes out. Bilat soft wrist restraints on. GT intact but clamped; remains NPO per MD. No BM; anuric. Left femoral TLC patent with clean and dry dressing. Wound dressings dry and intact. Off Levophed gtt; BP in the >100's systolic. Will continue to monitor
[2018-09-30] MEDS ORDERED: Dyna-Hex 2% Top Sol 2oz TOPIC SCH (20:00)
[2018-09-30] MEDS ORDERED: Epoetin Alfa(ESRD on dialysis)10,000 unit/ml vial SUBQ ONE (21:00)
--- NOTE | 2018-09-30 21:00 | NUR ---
NURSE NOTES: HD finished and well tolerated per HDRN. No UF. Pt received 2 units PRBC accross dialysis.
[2018-09-30] MEDS: Epoetin Alfa(ESRD on dialysis)10,000 unit/ml vial SUBQ SCH (21:41)
[2018-10-01] VITALS (24 sets, daily range): BP systolic 100–137; BP diastolic 39–72
--- NOTE | 2018-10-01 | NUR ---
NURSE NOTES: Awake, restless. Afebrile. BP stable; no pressors. Left arm oozing serous fluid. Left femoral TLC intact. Bilat soft wrist restraints renewed
--- NOTE | 2018-10-01 02:00 | NUR ---
NURSE NOTES: Awake and restless; no sedation ordered. On afib at 113-116. Noticed that pt digging her right thumb into four fingers causing some bleeding. Wrapped both hands with mittens. Restraints maintained.
--- NOTE | 2018-10-01 04:00 | NUR ---
NURSE NOTES: Completed bath. No BM. Redressed sacral wound. PEG exit site dressing changed. Still awake and restless, afib on the monitor. Afebrile; BP stable. Off pressors.
[2018-10-01] MEDS: Zoysn 3.37gm in NS 100ML IVPB SCH ×3 (05:56→21:24)
--- NOTE | 2018-10-01 07:00 | NUR ---
Received Patient on AC 8, VT 450 , FIO2 40%, PEEP +5. Pt is trach-dependent with a cuffed, Shiley 8 tube. Pt is alert and awake, follows commands. Both hands on soft restraints. Breath sounds reveal bilateral rhonchi. Suction small amounts of thick, yellow-green secretions. Vent plugged into red outlet, ambubag at bedside. Pt in no apparent distress at this time. Will continue plan of care.
--- NOTE | 2018-10-01 07:05 | NUR ---
HAND-OFF: Report given to Mily BLAND.
--- NOTE | 2018-10-01 07:08 | NUR ---
NURSE NOTES: Report received from BALDO Morgan
--- NOTE | 2018-10-01 08:00 | NUR ---
NURSE NOTES: Patient was received in bed watching tv with no apparent signs distress. Hands protected with gauze due to patient voluntary self injury her fingers.Bilateral soft wrist restraints in place.On Trach/Vent Mariaa 8 with AC 8 Vt 450 FiO2 40 Peep 5. GT placement check and intact. HOB elevated to prevent aspiration. Mouth care done.Turned and repositioned.Dialysis done yesterday and 2 units PRBC transfused. AVgraft on Left upper arm with bruit and thrill present. Left femoral TLC running D51/2 NS at 50cc/hr. Kept clean and dry. Will continue to monitor.
[2018-10-01] MEDS: Pantoprazole Inj IV SCH (08:23)
[2018-10-01] MEDS: Eliquis 2.5mg tablet ORAL SCH (08:24)
[2018-10-01] MEDS ORDERED: 1/2 NS 1000ml IV ONE ×2 (09:01→09:07)
[2018-10-01] MEDS ORDERED: Tubing IV Blood Pump IV ONE (09:01)
[2018-10-01] MEDS ORDERED: NS 275ml ONE ×2 (09:01→09:07)
[2018-10-01] MEDS ORDERED: Tubing IV Secondary IV ONE ×2 (09:01→09:07)
--- NOTE | 2018-10-01 09:29 | Pulmonology Progress Note ---
Assessment/Plan Assessment/Plan 1. Shock, possibly septic. 2. UTI. 3. ESRD, on dialysis. 4. Ventilator dependent respiratory failure. 5. Tracheostomy. 6. Diabetes mellitus. 7. Chronic atrial fibrillation. DISCUSSION: Continue broad-spectrum antibiotics. I will continue AC mode. I will decrease FiO2 as tolerated. Blood transfusion as required. Hemodialysis per renal. Andres Allan M.D. Subjective Interval Events: None new Constitutional: Reports: no symptoms HEENT: Repors: no symptoms Respiratory: Reports: no symptoms Cardiovascular: Reports: no symptoms Gastrointestinal/Abdominal: Reports: no symptoms Genitourinary: Reports: no symptoms Neurologic: Reports: no symptoms Allergies: Coded Allergies: No Known Allergies (Unverified , 07/25/18) Objective Last 24 Hour Vital Signs Date Time Temp Pulse Resp B/P (MAP) Pulse Ox O2 Delivery O2 Flow Rate FiO2 10/01/18 09:24 123 16 40 10/01/18 08:00 40 10/01/18 08:00 Mechanical Ventilator 10/01/18 08:00 127 16 100/59 (73) 100 10/01/18 07:01 120 16 40 10/01/18 07:00 98.6 115 17 101/72 (82) 91 10/01/18 06:00 121 20 117/57 (77) 100 10/01/18 05:00 117 18 119/54 (75) 100 10/01/18 04:56 117 15 40 10/01/18 04:00 Mechanical Ventilator 10/01/18 04:00 116 10/01/18 04:00 40 10/01/18 04:00 98.8 117 17 111/70 (84) 91 10/01/18 03:11 120 14 40 10/01/18 03:00 117 16 119/65 (83) 94 10/01/18 02:00 117 17 106/71 (83) 100 10/01/18 01:05 117 16 40 10/01/18 01:00 119 17 113/56 (75) 100 10/01/18 00:00 Mechanical Ventilator 10/01/18 00:00 40 10/01/18 00:00 98.0 75 17 102/49 (66) 100 10/01/18 00:00 75 09/30/18 23:05 77 12 40 09/30/18 23:00 80 18 110/42 (64) 100 09/30/18 22:00 120 19 111/57 (75) 100 09/30/18 21:15 115/47 09/30/18 21:00 76 17 110/58 (75) 100 09/30/18 20:55 74 17 40 09/30/18 20:00 98.8 92 18 109/54 (72) 100 09/30/18 20:00 76 09/30/18 20:00 40 09/30/18 20:00 Mechanical Ventilator 09/30/18 19:06 76 20 40 09/30/18 19:00 77 18 106/62 (77) 100 09/30/18 18:00 113/44 09/30/18 18:00 75 18 113/44 (67) 100 09/30/18 17:06 74 16 40 09/30/18 17:00 112/44 09/30/18 17:00 81 18 112/44 (66) 100 09/30/18 16:00 Mechanical Ventilator 09/30/18 16:00 40 09/30/18 16:00 108/34 09/30/18 16:00 97.9 78 20 108/34 (58) 100 09/30/18 16:00 78 09/30/18 15:30 119/47 09/30/18 15:30 83 19 119/47 (71) 100 09/30/18 15:11 78 12 40 09/30/18 15:00 79 18 105/52 (69) 100 09/30/18 15:00 105/52 09/30/18 14:27 85 16 146/51 (82) 93 09/30/18 14:00 71 16 121/50 (73) 93 09/30/18 14:00 146/51 09/30/18 13:00 130/37 09/30/18 13:00 84 16 130/37 (68) 93 09/30/18 12:58 82 20 40 09/30/18 12:00 71 09/30/18 12:00 Mechanical Ventilator 09/30/18 12:00 102/33 09/30/18 12:00 98.8 69 16 102/33 (56) 100 09/30/18 12:00 40 09/30/18 11:30 72 16 114/43 (66) 100 09/30/18 11:00 73 18 114/43 (66) 99 09/30/18 11:00 114/43 09/30/18 10:38 70 13 40 09/30/18 10:30 70 16 107/34 (58) 100 09/30/18 10:00 80 18 114/43 (66) 99 09/30/18 10:00 110/38 09/30/18 09:30 78 16 110/38 (62) 100 Intake and Output 09/30/18 10/01/18 18:59 06:59 Intake Total 995.9965 ml 893.33 ml Output Total 0 ml 0 ml Balance 995.9965 ml 893.33 ml Intake Oral 0 ml 0 ml IV Total 995.9965 ml 893.33 ml Output Urine Total 0 ml 0 ml Hemodialysis UF 0 ml General Appearance: no acute distress HEENT: normocephalic, status post trach Respiratory/Chest: chest wall non-tender, lungs clear Cardiovascular: normal peripheral pulses Abdomen: normal bowel sounds, soft, non tender Microbiology Date/Time Source Procedure Growth Status 09/29/18 17:50 Blood Blood Culture - Preliminary Resulted 09/29/18 17:40 Blood Blood Culture - Preliminary Resulted 09/29/18 23:30 Wound Gram Stain - Final Resulted 09/29/18 23:30 Wound Wound Culture Pending Resulted 09/29/18 18:00 Nasal Nares MRSA Culture - Final Staphylococcus Aureus - Mrsa Complete 09/29/18 16:26 Urine,Clean Catch Urine Culture - Preliminary Escherichia Coli Resulted 09/29/18 18:00 Rectum VRE Culture - Final Enterococcus Faecalis - Vre Enterococcus Faecium - Vre Resulted 09/29/18 18:00 Rectum Pending Resulted Laboratory Tests 09/30/18 09:55: Arterial Blood pH 7.418, Arterial Blood Partial Pressure CO2 37.4, Arterial Blood Partial Pressure O2 104.2H, Arterial Blood HCO3 23.6, Arterial Blood Oxygen Saturation 97.3, Arterial Blood Base Excess -0.8, Silverio Test Positive Current Medications Medications (Trade) Dose Ordered Sig/Renetta Route PRN Reason Start Time Stop Time Status Last Admin Dose Admin Acetaminophen (Tylenol) 650 mg Q4H PRN RECTAL Mild Pain (Pain Scale 1-3) 09/29/18 19:15 10/29/18 19:14 09/30/18 00:27 Albuterol/ Ipratropium (Albuterol/ Ipratropium) 3 ml Q6H PRN HHN Shortness of Breath 09/29/18 19:15 10/04/18 19:14 Apixaban (Eliquis) 2.5 mg BID ORAL 09/30/18 09:00 10/30/18 08:59 10/01/18 08:24 Chlorhexidine Gluconate (Rylie-Hex 2%) 1 applic DAILY@2000 TOPIC 09/30/18 20:00 10/30/18 19:59 09/30/18 21:41 Dextrose (Dextrose 50%) 25 ml Q30M PRN IV Hypoglycemia 09/29/18 19:30 10/29/18 19:29 Dextrose (Dextrose 50%) 50 ml Q30M PRN IV Hypoglycemia 09/29/18 19:30 10/29/18 19:29 Epoetin Paul (Epoetin Paul(ESRD on dialysis)) 10,000 unit WED-WED-WED SUBQ 09/30/18 21:00 10/30/18 20:59 09/30/18 21:41 Norepinephrine Bitartrate 8 mg/ Sodium Chloride 250 ml @ 0 mls/hr Q24H IV 09/29/18 21:15 10/29/18 21:14 09/29/18 22:36 Ondansetron HCl (Zofran) 4 mg Q6H PRN IVP Nausea & Vomiting 09/29/18 19:15 10/29/18 19:14 Pantoprazole (Protonix) 40 mg DAILY IV 09/30/18 09:00 10/30/18 08:59 10/01/18 08:23 Piperacillin Sod/ Tazobactam Sod 3.375 gm/Sodium Chloride 110 ml @ 27.5 mls/hr EVERY 8 HOURS IVPB 09/29/18 23:00 10/04/18 22:59 10/01/18 05:56 Sodium Chloride 1,000 ml @ 50 mls/hr Q20H IV 09/29/18 20:00 10/29/18 19:59 09/30/18 14:12 Vancomycin HCl (Vanco rx to dose) 1 ea DAILY PRN MISC Per rx protocol 09/29/18 22:15 10/29/18 22:14 Vancomycin HCl 750 mg/Dextrose 275 ml @ 183.333 mls/hr Q24H IVPB 09/30/18 18:30 10/05/18 18:29 09/30/18 17:31 Andres Allan MD Oct 01, 2018 09:29
--- NOTE | 2018-10-01 10:36 | Consultation ---
History of Present Illness General Chief Complaint: Abnormal Labs Reason for Consultation: multiple wounds Present Illness HPI 78 year old female well known to me from prior admission. Currently admitted in ICU for anamia and abnormal labs. critically ill and prognosis guarded. on admission noted to have multiple wounds which were present prior and cared for during prior admission. surgery called to evaluate and assist with care / management of wounds. Allergies: Coded Allergies: No Known Allergies (Unverified , 07/25/18) Medication History Scheduled Amiodarone Hcl* (Cordarone*), 200 MG GT DAILY, (Reported) Apixaban (Eliquis), 2.5 MG GT DAILY, (Reported) Hydrocodone Bit/Acetaminophen 5-325* (Deland 5-325*), 1 TAB GT DAILY, (Reported) Lansoprazole* (Lansoprazole*), 30 MG GT Q12HR Lorazepam* (Ativan*), 1 MG GT BEDTIME, (Reported) Minoxidil* (Loniten*), 2.5 MG GT Q12HR, (Reported) Quetiapine Fumarate* (Seroquel*), 25 MG GT QID, (Reported) Vit C/Ascorbate Ca/Ascorb Sod (Vitamin C 500 Mg/15 Ml Liquid), 500 MG GT DAILY, (Reported) Vitamin B Cmplx/Vit C/Folic AC (Nephro-Malik Tablet), 1 TAB GT DAILY, (Reported) Zinc Sulfate (Zinc Sulfate*), 220 MG GT DAILY, (Reported) Scheduled PRN Acetaminophen* (Acetaminophen 325MG Tablet*), 650 MG ORAL Q6HR PRN for Mild Pain /Temp > 100.5, (Reported) Bisacodyl (Dulcolax), 10 MG RC DAILY PRN for IF NO BM X 3 DAYS AFTER MOM, ( Reported) Dextran 70/Hypromellose (Artificial Tears Eye Drops*), 1 DROP BOTH EYES Q4HR PRN for Dry Eyes, (Reported) Hydrocodone Bit/Acetaminophen 5-325* (Deland 5-325*), 1 TAB GT Q6H PRN for MOD TO SEVERE PAIN, (Reported) Magnesium Hydroxide* (Milk Of Magnesia*), 30 ML ORAL DAILY PRN for IF NO BM X 3 DAYS. HOLD IF LBM, (Reported) Na Phos,M-B/Na Phos,Di-Ba* (Fleet Enema*), 133 ML RECTAL DAILY PRN for NO BM X 3 DAY AFTER DULCOLAX, (Reported) Zolpidem Tartrate* (Zolpidem Tartrate*), 5 MG GT BEDTIME PRN for Insomnia, ( Reported) Discontinued Medications Alprazolam* (Xanax*), 1 MG ORAL TID, (Reported) Discontinued Reason: Therapy completed Amino Acids/Protein Hydrolys (Pro-Stat Liquid), 30 ML ORAL TWICE A DAY, ( Reported) Discontinued Reason: Therapy completed Amiodarone Hcl* (Amiodarone Hcl*), 200 MG ORAL EVERY 12 HOURS, (Reported) Discontinued Reason: Medication dose changed Ascorbic Acid* (Ascorbic Acid*), 500 MG ORAL DAILY, (Reported) Discontinued Reason: Prescription changed Dextran 70/Hypromellose (Artificial Tears Eye Drops*), 1 DROP BOTH EYES Q4H PRN Discontinued Reason: Therapy completed Docusate Sodium* (Docusate Sodium*), 100 MG ORAL TWICE A DAY, (Reported) Discontinued Reason: Therapy completed Epoetin Paul (Procrit), 10,000 UNITS SUBQ WED-WED-WED Discontinued Reason: Therapy completed Gabapentin* (Gabapentin*), 300 MG ORAL BEDTIME, (Reported) Discontinued Reason: Therapy completed Metoprolol Tartrate* (Metoprolol Tartrate*), 50 MG ORAL EVERY 12 HOURS, ( Reported) Discontinued Reason: Therapy completed Mupirocin* (Mupirocin*), 1 APPLIC TOPIC THREE TIMES A DAY, (Reported) Discontinued Reason: Therapy completed Pantoprazole* (Pantoprazole*), 40 MG ORAL DAILY, (Reported) Discontinued Reason: Therapy completed Sennosides/Docusate Sodium (Senna Laxative Tablet), 2 EACH PO, (Reported) Discontinued Reason: Therapy completed Sertraline Hcl* (Sertraline Hcl*), 100 MG ORAL DAILY, (Reported) Discontinued Reason: Therapy completed Sevelamer Carbonate* (Renvela*), 800 MG ORAL THREE TIMES A DAY, (Reported) Discontinued Reason: Therapy completed Patient History Limited by: medical condition History Provided By: Medical Record, PMD Healthcare decision maker Negro Scott, nathalie Resuscitation status Full Code Advanced Directive on File No Past Medical/Surgical History Past Medical/Surgical History: (1) Bradycardia (2) Hypotension (3) ESRD (end stage renal disease) (4) Hypoalbuminemia (5) Decubital ulcer (6) Paroxysmal A-fib (7) Dehydration (8) Severe malnutrition (9) Encounter for PEG (percutaneous endoscopic gastrostomy) (10) Encephalopathy chronic (11) Dementia with behavioral disturbance (12) Anemia (13) ESRD needing dialysis (14) Septic shock (15) UTI (urinary tract infection) (16) Sepsis Review of Systems ROS Narrative cannot obtain given medical condition Physical Exam General Appearance: mild distress Lines, tubes and drains: other HEENT: mucous membranes moist Neck: normal inspection Respiratory/Chest: decreased breath sounds Cardiovascular/Chest: tachycardia Abdomen: soft, no organomegaly, no mass Extremities: other Skin Exam: other Last 24 Hour Vital Signs Date Time Temp Pulse Resp B/P (MAP) Pulse Ox O2 Delivery O2 Flow Rate FiO2 10/01/18 09:24 123 16 40 10/01/18 08:00 40 10/01/18 08:00 Mechanical Ventilator 10/01/18 08:00 127 16 100/59 (73) 100 10/01/18 07:01 120 16 40 10/01/18 07:00 98.6 115 17 101/72 (82) 91 10/01/18 06:00 121 20 117/57 (77) 100 10/01/18 05:00 117 18 119/54 (75) 100 10/01/18 04:56 117 15 40 10/01/18 04:00 Mechanical Ventilator 10/01/18 04:00 116 10/01/18 04:00 40 10/01/18 04:00 98.8 117 17 111/70 (84) 91 10/01/18 03:11 120 14 40 10/01/18 03:00 117 16 119/65 (83) 94 10/01/18 02:00 117 17 106/71 (83) 100 10/01/18 01:05 117 16 40 10/01/18 01:00 119 17 113/56 (75) 100 10/01/18 00:00 Mechanical Ventilator 10/01/18 00:00 40 10/01/18 00:00 98.0 75 17 102/49 (66) 100 10/01/18 00:00 75 09/30/18 23:05 77 12 40 09/30/18 23:00 80 18 110/42 (64) 100 09/30/18 22:00 120 19 111/57 (75) 100 2/1/19 21:15 115/47 09/30/18 21:00 76 17 110/58 (75) 100 09/30/18 20:55 74 17 40 09/30/18 20:00 98.8 92 18 109/54 (72) 100 09/30/18 20:00 76 09/30/18 20:00 40 09/30/18 20:00 Mechanical Ventilator 09/30/18 19:06 76 20 40 09/30/18 19:00 77 18 106/62 (77) 100 09/30/18 18:00 113/44 09/30/18 18:00 75 18 113/44 (67) 100 09/30/18 17:06 74 16 40 09/30/18 17:00 112/44 09/30/18 17:00 81 18 112/44 (66) 100 09/30/18 16:00 Mechanical Ventilator 09/30/18 16:00 40 09/30/18 16:00 108/34 09/30/18 16:00 97.9 78 20 108/34 (58) 100 09/30/18 16:00 78 09/30/18 15:30 119/47 09/30/18 15:30 83 19 119/47 (71) 100 09/30/18 15:11 78 12 40 09/30/18 15:00 79 18 105/52 (69) 100 09/30/18 15:00 105/52 09/30/18 14:27 85 16 146/51 (82) 93 09/30/18 14:00 71 16 121/50 (73) 93 09/30/18 14:00 146/51 09/30/18 13:00 130/37 09/30/18 13:00 84 16 130/37 (68) 93 09/30/18 12:58 82 20 40 09/30/18 12:00 71 09/30/18 12:00 Mechanical Ventilator 09/30/18 12:00 102/33 09/30/18 12:00 98.8 69 16 102/33 (56) 100 09/30/18 12:00 40 09/30/18 11:30 72 16 114/43 (66) 100 09/30/18 11:00 73 18 114/43 (66) 99 09/30/18 11:00 114/43 09/30/18 10:38 70 13 40 Intake and Output 09/30/18 10/01/18 18:59 06:59 Intake Total 995.9965 ml 893.33 ml Output Total 0 ml 0 ml Balance 995.9965 ml 893.33 ml Intake Oral 0 ml 0 ml IV Total 995.9965 ml 893.33 ml Output Urine Total 0 ml 0 ml Hemodialysis UF 0 ml Height (Feet): 5 Height (Inches): 3.00 Weight (Pounds): 144 Medications Current Medications Medications (Trade) Dose Ordered Sig/Renetta Route PRN Reason Start Time Stop Time Status Last Admin Dose Admin Acetaminophen (Tylenol) 650 mg Q4H PRN RECTAL Mild Pain (Pain Scale 1-3) 09/29/18 19:15 10/29/18 19:14 09/30/18 00:27 Albuterol/ Ipratropium (Albuterol/ Ipratropium) 3 ml Q6H PRN HHN Shortness of Breath 09/29/18 19:15 10/04/18 19:14 Apixaban (Eliquis) 2.5 mg BID ORAL 09/30/18 09:00 10/30/18 08:59 10/01/18 08:24 Chlorhexidine Gluconate (Rylie-Hex 2%) 1 applic DAILY@2000 TOPIC 09/30/18 20:00 10/30/18 19:59 09/30/18 21:41 Dextrose (Dextrose 50%) 25 ml Q30M PRN IV Hypoglycemia 09/29/18 19:30 10/29/18 19:29 Dextrose (Dextrose 50%) 50 ml Q30M PRN IV Hypoglycemia 09/29/18 19:30 10/29/18 19:29 Epoetin Paul (Epoetin Paul(ESRD on dialysis)) 10,000 unit WED-WED-WED SUBQ 09/30/18 21:00 10/30/18 20:59 09/30/18 21:41 Norepinephrine Bitartrate 8 mg/ Sodium Chloride 250 ml @ 0 mls/hr Q24H IV 09/29/18 21:15 10/29/18 21:14 09/29/18 22:36 Ondansetron HCl (Zofran) 4 mg Q6H PRN IVP Nausea & Vomiting 09/29/18 19:15 10/29/18 19:14 Pantoprazole (Protonix) 40 mg DAILY IV 09/30/18 09:00 10/30/18 08:59 10/01/18 08:23 Piperacillin Sod/ Tazobactam Sod 3.375 gm/Sodium Chloride 110 ml @ 27.5 mls/hr EVERY 8 HOURS IVPB 09/29/18 23:00 10/04/18 22:59 10/01/18 05:56 Sodium Chloride 1,000 ml @ 50 mls/hr Q20H IV 09/29/18 20:00 10/29/18 19:59 09/30/18 14:12 Vancomycin HCl (Vanco rx to dose) 1 ea DAILY PRN MISC Per rx protocol 09/29/18 22:15 10/29/18 22:14 Vancomycin HCl 750 mg/Dextrose 275 ml @ 183.333 mls/hr Q24H IVPB 09/30/18 18:30 10/05/18 18:29 09/30/18 17:31 Assessment/Plan Problem List: (1) Septic shock ICD Codes: A41.9 - Sepsis, unspecified organism; R65.21 - Severe sepsis with septic shock SNOMED: 23288048 (2) Decubital ulcer Assessment & Plan: Pt presents with full thickness pressure injury sacrum with deep undermining into L buttocks .Historical arched surgical scar Upper L buttocks.Wound measures(L)3.4cm x (W)3cm x (D)1.5cm ,undermining 12-6 by 12 cm @ 8o'clock. Scattered Biofilm at base of sacrum with40% yellow slough along borders of wound .minimal non-odorous serous exudate.Non-blanchable erythema with additional scattered partial wounds periwound to R and L buttocks Unstageable pressure injury R ischium with 95% slough, 5% erythema along margins.Non-blanchable erythema periwound (L)2cm x (W)0.4cm. Stable dry eschar lateral/posterior R tibia.Periwound is clean and pink.(L)3cmx (W)2cm. Stable dry eschar R heel (L)2cm x (W)1.7cm .Periwound blanchable . Pressure injury with 100% eschar ,loose around edges ,padmaja pink borders .No odor or exudate noted.(L)1.7cm x (W)2cm. L forearm edematous and weeping serous exudate. Scattered senile purpuras bilat upper and bilat lower ext. Skin assessed under trach collar and no evidence of skin breakdown noted. Wound medial /distal R tibia with 100% stable dry eschar (L)2cm x (W)1.6cm. Periwound is pink and dry. Tx.Plan: Cleanse sacral wound with Saline.Loosely pack with Silvasorb impregnated 1/2 inch packing strip .Apply Moisture Barrier paste periwound .Cover with Optifoam drsg Daily and prn. Apply Cavilon Skin Barrier to R ischial wound .Cover with Optifoam drsg .Change every 3 days and prn. Apply Cavilon Skin Barrier to wound medial R tibia.Cover with Optifoam drsg every 7 days and prn. Apply Cavilon Skin Barrier to R heel .Cover with Optifoam drsg. Change every 7 days and prn. Apply Cavilon Skin Barrier to Medial L heel.Cover with Optifoam drsg .Change every 7 days and prn. APM /LATASHA mattress overlay. Reposition at least every 2 hours or as tolerated. Off-load heels with pillow. ICD Codes: L89.90 - Pressure ulcer of unspecified site, unspecified stage SNOMED: 247511016 (3) Severe malnutrition Assessment & Plan: nutrition consult needs optimal nutrition in septic state for recovery and wound healing ICD Codes: E43 - Unspecified severe protein-calorie malnutrition SNOMED: 05232080 Reji Nails Oct 01, 2018 10:36
--- NOTE | 2018-10-01 10:42 | NUR ---
NURSE NOTES: Pt turned and repositioned for skin management. Seen by Dr Smith and Christine made aware uncontrol heart rate with Afib and blood culture gram positive clusters cocci.Order to start feeding, CBC and BMP, psych consult with Dr Castaneda per Dr Smith. Order noted and carried out.
--- NOTE | 2018-10-01 10:46 | Nephrology Progress Note ---
Assessment/Plan Plan Urosepsis (GNR) IV Abx per ID. Worsening anemia 2 above -transfuse on HD. ESRD HD Chr. A. Fib - apixaban. I have been notified by Dr. Morfin has GPC in the blood!!! Pt. Has groin TLC inserted last admission. Has Line Sepsis. Needs TLC change SHERRI. Called Dr. Goodman. Subjective Subjective Less confused. More alert. Per RN depressed. Objective Objective Last 24 Hour Vital Signs Date Time Temp Pulse Resp B/P (MAP) Pulse Ox O2 Delivery O2 Flow Rate FiO2 10/01/18 09:24 123 16 40 10/01/18 08:00 40 10/01/18 08:00 Mechanical Ventilator 10/01/18 08:00 127 16 100/59 (73) 100 10/01/18 07:01 120 16 40 10/01/18 07:00 98.6 115 17 101/72 (82) 91 10/01/18 06:00 121 20 117/57 (77) 100 10/01/18 05:00 117 18 119/54 (75) 100 10/01/18 04:56 117 15 40 10/01/18 04:00 Mechanical Ventilator 10/01/18 04:00 116 10/01/18 04:00 40 10/01/18 04:00 98.8 117 17 111/70 (84) 91 10/01/18 03:11 120 14 40 10/01/18 03:00 117 16 119/65 (83) 94 10/01/18 02:00 117 17 106/71 (83) 100 10/01/18 01:05 117 16 40 10/01/18 01:00 119 17 113/56 (75) 100 10/01/18 00:00 Mechanical Ventilator 10/01/18 00:00 40 10/01/18 00:00 98.0 75 17 102/49 (66) 100 10/01/18 00:00 75 09/30/18 23:05 77 12 40 09/30/18 23:00 80 18 110/42 (64) 100 09/30/18 22:00 120 19 111/57 (75) 100 09/30/18 21:15 115/47 09/30/18 21:00 76 17 110/58 (75) 100 09/30/18 20:55 74 17 40 09/30/18 20:00 98.8 92 18 109/54 (72) 100 09/30/18 20:00 76 09/30/18 20:00 40 09/30/18 20:00 Mechanical Ventilator 09/30/18 19:06 76 20 40 09/30/18 19:00 77 18 106/62 (77) 100 09/30/18 18:00 113/44 09/30/18 18:00 75 18 113/44 (67) 100 09/30/18 17:06 74 16 40 09/30/18 17:00 112/44 09/30/18 17:00 81 18 112/44 (66) 100 09/30/18 16:00 Mechanical Ventilator 09/30/18 16:00 40 09/30/18 16:00 108/34 09/30/18 16:00 97.9 78 20 108/34 (58) 100 09/30/18 16:00 78 09/30/18 15:30 119/47 09/30/18 15:30 83 19 119/47 (71) 100 09/30/18 15:11 78 12 40 09/30/18 15:00 79 18 105/52 (69) 100 09/30/18 15:00 105/52 09/30/18 14:27 85 16 146/51 (82) 93 09/30/18 14:00 71 16 121/50 (73) 93 09/30/18 14:00 146/51 09/30/18 13:00 130/37 09/30/18 13:00 84 16 130/37 (68) 93 09/30/18 12:58 82 20 40 09/30/18 12:00 71 09/30/18 12:00 Mechanical Ventilator 09/30/18 12:00 102/33 09/30/18 12:00 98.8 69 16 102/33 (56) 100 09/30/18 12:00 40 09/30/18 11:30 72 16 114/43 (66) 100 09/30/18 11:00 73 18 114/43 (66) 99 09/30/18 11:00 114/43 Intake and Output 09/30/18 10/01/18 18:59 06:59 Intake Total 995.9965 ml 893.33 ml Output Total 0 ml 0 ml Balance 995.9965 ml 893.33 ml Intake Oral 0 ml 0 ml IV Total 995.9965 ml 893.33 ml Output Urine Total 0 ml 0 ml Hemodialysis UF 0 ml Height (Feet): 5 Height (Inches): 3.00 Weight (Pounds): 144 Objective On Vent. Cv IRR +tach Lungs CTA Abd SNT. BS + E No CCE Chase He MD Oct 01, 2018 10:46
[2018-10-01 10:56] LABS: HEMATOCRIT 25.5 % (37.0-47.0); HEMOGLOBIN 8.5 G/DL (12.0-16.0); MEAN CORPUSCULAR VOLUME 92 FL (80-99); PLATELET COUNT 419 K/UL (150-450); RED BLOOD COUNT 2.79 M/UL (4.20-5.40); RED CELL DISTRIBUTION WIDTH 16.7 % (11.6-14.8); WHITE BLOOD COUNT 15.3 K/UL (4.8-10.8)
[2018-10-01 11:09] LABS: ANION GAP 11 mmol/L (5-15); BLOOD UREA NITROGEN 35 mg/dL (7-18); CALCIUM 8.8 MG/DL (8.5-10.1); CARBON DIOXIDE 26 MMOL/L (21-32); CHLORIDE 98 MMOL/L (98-107); CREATININE 1.3 MG/DL (0.55-1.30); POTASSIUM 3.2 MMOL/L (3.5-5.1); SODIUM 135 MMOL/L (136-145)
--- NOTE | 2018-10-01 11:39 | Infectious Diseases Prog Note ---
Assessment/Plan Assessment/Plan antibiotics : vancomycin iv, zosyn A 1. gram positive sepsis 2. e.coli UTI 3. shock 4. pneumonia 5. respiratory failure 6. sacral decubitus ulcer 7. leucocytosis improving P 1. continue vancomycin iv, zosyn 2. will follow up cultures Subjective ROS Limited/Unobtainable: Yes Allergies: Coded Allergies: No Known Allergies (Unverified , 07/25/18) Objective Vital Signs Last 24 Hour Vital Signs Date Time Temp Pulse Resp B/P (MAP) Pulse Ox O2 Delivery O2 Flow Rate FiO2 10/01/18 10:49 78 16 40 10/01/18 09:24 123 16 40 10/01/18 08:00 40 10/01/18 08:00 Mechanical Ventilator 10/01/18 08:00 127 16 100/59 (73) 100 10/01/18 07:01 120 16 40 10/01/18 07:00 98.6 115 17 101/72 (82) 91 10/01/18 06:00 121 20 117/57 (77) 100 10/01/18 05:00 117 18 119/54 (75) 100 10/01/18 04:56 117 15 40 10/01/18 04:00 Mechanical Ventilator 10/01/18 04:00 116 10/01/18 04:00 40 10/01/18 04:00 98.8 117 17 111/70 (84) 91 10/01/18 03:11 120 14 40 10/01/18 03:00 117 16 119/65 (83) 94 10/01/18 02:00 117 17 106/71 (83) 100 10/01/18 01:05 117 16 40 10/01/18 01:00 119 17 113/56 (75) 100 10/01/18 00:00 Mechanical Ventilator 10/01/18 00:00 40 10/01/18 00:00 98.0 75 17 102/49 (66) 100 10/01/18 00:00 75 09/30/18 23:05 77 12 40 09/30/18 23:00 80 18 110/42 (64) 100 09/30/18 22:00 120 19 111/57 (75) 100 09/30/18 21:15 115/47 09/30/18 21:00 76 17 110/58 (75) 100 09/30/18 20:55 74 17 40 09/30/18 20:00 98.8 92 18 109/54 (72) 100 09/30/18 20:00 76 09/30/18 20:00 40 09/30/18 20:00 Mechanical Ventilator 09/30/18 19:06 76 20 40 09/30/18 19:00 77 18 106/62 (77) 100 09/30/18 18:00 113/44 09/30/18 18:00 75 18 113/44 (67) 100 09/30/18 17:06 74 16 40 09/30/18 17:00 112/44 09/30/18 17:00 81 18 112/44 (66) 100 09/30/18 16:00 Mechanical Ventilator 09/30/18 16:00 40 09/30/18 16:00 108/34 09/30/18 16:00 97.9 78 20 108/34 (58) 100 09/30/18 16:00 78 09/30/18 15:30 119/47 09/30/18 15:30 83 19 119/47 (71) 100 09/30/18 15:11 78 12 40 09/30/18 15:00 79 18 105/52 (69) 100 09/30/18 15:00 105/52 09/30/18 14:27 85 16 146/51 (82) 93 09/30/18 14:00 71 16 121/50 (73) 93 09/30/18 14:00 146/51 09/30/18 13:00 130/37 09/30/18 13:00 84 16 130/37 (68) 93 09/30/18 12:58 82 20 40 09/30/18 12:00 71 09/30/18 12:00 Mechanical Ventilator 09/30/18 12:00 102/33 09/30/18 12:00 98.8 69 16 102/33 (56) 100 09/30/18 12:00 40 Height (Feet): 5 Height (Inches): 3.00 Weight (Pounds): 144 HEENT: status post trach Respiratory/Chest: lungs clear Cardiovascular: normal rate, regular rhythm, no gallop/murmur Abdomen: soft, non tender, other - Gt Extremities: no edema, other - left groin catheter Microbiology Date/Time Source Procedure Growth Status 09/29/18 17:50 Blood Blood Culture - Preliminary Resulted 09/29/18 17:40 Blood Blood Culture - Preliminary Resulted 09/29/18 23:30 Wound Gram Stain - Final Resulted 09/29/18 23:30 Wound Culture - Preliminary Staphylococcus Aureus Gram Negative Bacillus 1 Resulted 09/29/18 18:00 Nasal Nares MRSA Culture - Final Staphylococcus Aureus - Mrsa Complete 09/29/18 16:26 Urine,Clean Catch Urine Culture - Preliminary Escherichia Coli Resulted 09/29/18 18:00 Rectum VRE Culture - Final Enterococcus Faecalis - Vre Enterococcus Faecium - Vre Resulted 09/29/18 18:00 Rectum Pending Resulted Laboratory Tests Test 10/01/18 06:00 White Blood Count 15.3 K/UL (4.8-10.8) H Red Blood Count 2.79 M/UL (4.20-5.40) L Hemoglobin 8.5 G/DL (12.0-16.0) #L Hematocrit 25.5 % (37.0-47.0) #L Mean Corpuscular Volume 92 FL (80-99) Mean Corpuscular Hemoglobin 30.6 PG (27.0-31.0) Mean Corpuscular Hemoglobin Concent 33.4 G/DL (32.0-36.0) Red Cell Distribution Width 16.7 % (11.6-14.8) H Platelet Count 419 K/UL (150-450) Mean Platelet Volume 5.3 FL (6.5-10.1) L Neutrophils (%) (Auto) % (45.0-75.0) Lymphocytes (%) (Auto) % (20.0-45.0) Monocytes (%) (Auto) % (1.0-10.0) Eosinophils (%) (Auto) % (0.0-3.0) Basophils (%) (Auto) % (0.0-2.0) Neutrophils % (Manual) Pending Lymphocytes % (Manual) Pending Platelet Estimate Pending Platelet Morphology Pending Sodium Level 135 MMOL/L (136-145) L Potassium Level 3.2 MMOL/L (3.5-5.1) L Chloride Level 98 MMOL/L (98-107) Carbon Dioxide Level 26 MMOL/L (21-32) Anion Gap 11 mmol/L (5-15) Blood Urea Nitrogen 35 mg/dL (7-18) H Creatinine 1.3 MG/DL (0.55-1.30) Estimat Glomerular Filtration Rate mL/min (>60) Glucose Level 62 MG/DL (74-106) L Calcium Level 8.8 MG/DL (8.5-10.1) Current Medications Medications (Trade) Dose Ordered Sig/Renetta Route PRN Reason Start Time Stop Time Status Last Admin Dose Admin Acetaminophen (Tylenol) 650 mg Q4H PRN RECTAL Mild Pain (Pain Scale 1-3) 09/29/18 19:15 10/29/18 19:14 09/30/18 00:27 Albuterol/ Ipratropium (Albuterol/ Ipratropium) 3 ml Q6H PRN HHN Shortness of Breath 09/29/18 19:15 10/04/18 19:14 Apixaban (Eliquis) 2.5 mg BID ORAL 09/30/18 09:00 10/30/18 08:59 10/01/18 08:24 Chlorhexidine Gluconate (Rylie-Hex 2%) 1 applic DAILY@2000 TOPIC 09/30/18 20:00 10/30/18 19:59 09/30/18 21:41 Dextrose (Dextrose 50%) 25 ml Q30M PRN IV Hypoglycemia 09/29/18 19:30 10/29/18 19:29 Dextrose (Dextrose 50%) 50 ml Q30M PRN IV Hypoglycemia 09/29/18 19:30 10/29/18 19:29 Epoetin Paul (Epoetin Paul(ESRD on dialysis)) 10,000 unit WED-WED-WED SUBQ 09/30/18 21:00 10/30/18 20:59 09/30/18 21:41 Escitalopram Oxalate (Lexapro) 10 mg DAILY ORAL 10/01/18 11:00 10/31/18 10:59 Haloperidol (Haldol) 5 mg BID ORAL 10/01/18 18:00 10/31/18 17:59 Iron Sucrose 100 mg/Sodium Chloride 60 ml @ 240 mls/hr BEDTIME IV 10/01/18 21:00 10/05/18 21:14 Norepinephrine Bitartrate 8 mg/ Sodium Chloride 250 ml @ 0 mls/hr Q24H IV 09/29/18 21:15 10/29/18 21:14 09/29/18 22:36 Ondansetron HCl (Zofran) 4 mg Q6H PRN IVP Nausea & Vomiting 09/29/18 19:15 10/29/18 19:14 Pantoprazole (Protonix) 40 mg DAILY IV 09/30/18 09:00 10/30/18 08:59 10/01/18 08:23 Piperacillin Sod/ Tazobactam Sod 3.375 gm/Sodium Chloride 110 ml @ 27.5 mls/hr EVERY 8 HOURS IVPB 09/29/18 23:00 10/04/18 22:59 10/01/18 05:56 Sodium Chloride 1,000 ml @ 50 mls/hr Q20H IV 09/29/18 20:00 10/29/18 19:59 09/30/18 14:12 Vancomycin HCl (Vanco rx to dose) 1 ea DAILY PRN MISC Per rx protocol 09/29/18 22:15 10/29/18 22:14 Vancomycin HCl 750 mg/Dextrose 275 ml @ 183.333 mls/hr Q24H IVPB 09/30/18 18:30 10/05/18 18:29 09/30/18 17:31 Omid Morfin MD Oct 01, 2018 11:39
--- NOTE | 2018-10-01 12:02 | NUR ---
NURSE NOTES: Patient turned and repositioned. HOB elevated, mouth care done.Tolerate well feeding at this time,no residual.Kept clean dry and comfortable.
--- NOTE | 2018-10-01 12:07 | Diagnostic Imaging Report ---
INDICATION: Shortness of breath COMPARISON: Chest x-ray dated 09/30/18 FINDINGS: Single frontal view demonstrates a tracheostomy tube. Moderate- sized left pleural effusion with stable opacity in the right mid to lower lung zone. Heart size is borderline enlarged. The visualized osseous structures are within normal limits. IMPRESSION: No significant change. Stable tracheostomy. Moderate-sized left pleural effusion with unchanged opacity in the right mid to lower lung zone.
--- NOTE | 2018-10-01 14:11 | NUR ---
NURSE NOTES: Adls done,turned and repositioned.Kept clean and dry. HOB elevated to prevent aspiration.Tolerate well feeding
--- NOTE | 2018-10-01 15:04 | NUR ---
NURSE NOTES: PERIPHERAL LINE DC PER DOCTOR LESLIE , NEW PERIPHERAL RIGHT HAND INSERTED.PATENT WITH NO S/S INFILTRATION.
--- NOTE | 2018-10-01 16:19 | NUR ---
NURSE NOTES: DURING WOUND CARE,PT NOTED WITH INCREASE BLEEDING AND DR NELSON MADE AWARE WITH ORDER TO HOLD SAWYERIS UNTIL FURTHER ORDER.ORDER NOTED Addendum: 10/01/18 at 1621 by Mily Carrizales RN TURNED AND REPOSITIONED, WOUND CARE DONE ,KEPT CLEAN AND DRY
[2018-10-01] MEDS: Vancomycin 750mg/D5W 275ml IVPB SCH ×2 (17:28)
--- NOTE | 2018-10-01 18:10 | NUR ---
NURSE NOTES: Adls done,turned and repositioned.Right hand and right antecubital line inserted and patent.HOB elevated to prevent aspiration. Addendum: 10/01/18 at 1922 by Mily Carrizales RN Left message to Dr Castaneda regarding the son request to review patient medication.Endorsed to next shift.
--- NOTE | 2018-10-01 19:25 | NUR ---
HAND-OFF: Report given to BALDO Cortés.
--- NOTE | 2018-10-01 19:30 | NUR ---
NURSE NOTES: Received pt in no distress. Awake, alert but confused and restless. Keeps banging the siderails with her hands despite being on restraints. Both hands covered with mittens as pt tends to self inflict injury to her fingers by digging her nails into it. Small amt of bleeding noted. VDRF, on the vent via trach, current vent settings well tolerated; FIO2. 40 saturating 100%,. BP stable; in and out of afib. Afebrile at this time. GTF with Nepro infuses at 35ml/h with 0 residuals. Anuric; Left arm edematous and draining serous fluid. Upper left arm with AVgraft; with mod strong bruit and thrill. Previous nurse left a message to Dr Castaneda for anti anxiety med order. Awaiting response. Will continue to monitor
[2018-10-01] MEDS: Iron Sucrose 100 MG in NS 55 ML IV SCH (20:39)
--- NOTE | 2018-10-01 22:00 | NUR ---
NURSE NOTES: Awake but confused and restless. On bilat soft wrist restraints. Padded siderails as pt keeps her hands banging on them. Tolerating GTF at 35ml/h. PIV site patent
--- NOTE | 2018-10-01 22:50 | Consultation ---
History of Present Illness General Chief Complaint: Abnormal Labs Reason for Consultation: multiple wounds Present Illness HPI 78-year-old female from [facility]. for low hemoglobin of 6.6. the pt has been pw waxing and waning of consciousness the pt is agitated the pt is in restraints and is not able to provide hx. the pt has hx of anxiety and depression Allergies: Coded Allergies: No Known Allergies (Unverified , 07/25/18) Medication History Scheduled Amiodarone Hcl* (Cordarone*), 200 MG GT DAILY, (Reported) Apixaban (Eliquis), 2.5 MG GT DAILY, (Reported) Hydrocodone Bit/Acetaminophen 5-325* (Weston 5-325*), 1 TAB GT DAILY, (Reported) Lansoprazole* (Lansoprazole*), 30 MG GT Q12HR Lorazepam* (Ativan*), 1 MG GT BEDTIME, (Reported) Minoxidil* (Loniten*), 2.5 MG GT Q12HR, (Reported) Quetiapine Fumarate* (Seroquel*), 25 MG GT QID, (Reported) Vit C/Ascorbate Ca/Ascorb Sod (Vitamin C 500 Mg/15 Ml Liquid), 500 MG GT DAILY, (Reported) Vitamin B Cmplx/Vit C/Folic AC (Nephro-Malik Tablet), 1 TAB GT DAILY, (Reported) Zinc Sulfate (Zinc Sulfate*), 220 MG GT DAILY, (Reported) Scheduled PRN Acetaminophen* (Acetaminophen 325MG Tablet*), 650 MG ORAL Q6HR PRN for Mild Pain /Temp > 100.5, (Reported) Bisacodyl (Dulcolax), 10 MG RC DAILY PRN for IF NO BM X 3 DAYS AFTER MOM, ( Reported) Dextran 70/Hypromellose (Artificial Tears Eye Drops*), 1 DROP BOTH EYES Q4HR PRN for Dry Eyes, (Reported) Hydrocodone Bit/Acetaminophen 5-325* (Weston 5-325*), 1 TAB GT Q6H PRN for MOD TO SEVERE PAIN, (Reported) Magnesium Hydroxide* (Milk Of Magnesia*), 30 ML ORAL DAILY PRN for IF NO BM X 3 DAYS. HOLD IF LBM, (Reported) Na Phos,M-B/Na Phos,Di-Ba* (Fleet Enema*), 133 ML RECTAL DAILY PRN for NO BM X 3 DAY AFTER DULCOLAX, (Reported) Zolpidem Tartrate* (Zolpidem Tartrate*), 5 MG GT BEDTIME PRN for Insomnia, ( Reported) Discontinued Medications Alprazolam* (Xanax*), 1 MG ORAL TID, (Reported) Discontinued Reason: Therapy completed Amino Acids/Protein Hydrolys (Pro-Stat Liquid), 30 ML ORAL TWICE A DAY, ( Reported) Discontinued Reason: Therapy completed Amiodarone Hcl* (Amiodarone Hcl*), 200 MG ORAL EVERY 12 HOURS, (Reported) Discontinued Reason: Medication dose changed Ascorbic Acid* (Ascorbic Acid*), 500 MG ORAL DAILY, (Reported) Discontinued Reason: Prescription changed Dextran 70/Hypromellose (Artificial Tears Eye Drops*), 1 DROP BOTH EYES Q4H PRN Discontinued Reason: Therapy completed Docusate Sodium* (Docusate Sodium*), 100 MG ORAL TWICE A DAY, (Reported) Discontinued Reason: Therapy completed Epoetin Paul (Procrit), 10,000 UNITS SUBQ WED-WED-WED Discontinued Reason: Therapy completed Gabapentin* (Gabapentin*), 300 MG ORAL BEDTIME, (Reported) Discontinued Reason: Therapy completed Metoprolol Tartrate* (Metoprolol Tartrate*), 50 MG ORAL EVERY 12 HOURS, ( Reported) Discontinued Reason: Therapy completed Mupirocin* (Mupirocin*), 1 APPLIC TOPIC THREE TIMES A DAY, (Reported) Discontinued Reason: Therapy completed Pantoprazole* (Pantoprazole*), 40 MG ORAL DAILY, (Reported) Discontinued Reason: Therapy completed Sennosides/Docusate Sodium (Senna Laxative Tablet), 2 EACH PO, (Reported) Discontinued Reason: Therapy completed Sertraline Hcl* (Sertraline Hcl*), 100 MG ORAL DAILY, (Reported) Discontinued Reason: Therapy completed Sevelamer Carbonate* (Renvela*), 800 MG ORAL THREE TIMES A DAY, (Reported) Discontinued Reason: Therapy completed Patient History Limited by: medical condition History Provided By: Family Member, Medical Record, PMD Healthcare decision maker Negro Scott, son Resuscitation status Full Code Advanced Directive on File No Review of Systems Psychiatric: Reports: prior hx, anxiety, emotional problems, hallucinations Physical Exam General Appearance: alert, lethargic, confused, agitated Last 24 Hour Vital Signs Date Time Temp Pulse Resp B/P (MAP) Pulse Ox O2 Delivery O2 Flow Rate FiO2 10/01/18 21:15 110/52 10/01/18 21:03 76 18 40 10/01/18 21:00 75 18 110/52 (71) 100 10/01/18 20:00 75 10/01/18 20:00 98.2 75 15 114/40 (64) 100 10/01/18 20:00 Mechanical Ventilator 10/01/18 20:00 40 10/01/18 19:28 77 14 40 10/01/18 19:00 78 18 121/42 (68) 100 10/01/18 18:00 78 18 114/50 (71) 100 10/01/18 17:20 76 21 40 10/01/18 17:00 75 19 117/43 (67) 100 10/01/18 16:00 98.0 72 17 114/55 (74) 100 10/01/18 16:00 Mechanical Ventilator 10/01/18 16:00 78 10/01/18 16:00 40 10/01/18 15:22 76 14 40 10/01/18 15:00 74 19 111/39 (63) 100 10/01/18 14:00 78 18 108/61 (77) 100 10/01/18 13:05 85 16 40 10/01/18 13:00 97 20 133/59 (83) 100 10/01/18 12:00 40 10/01/18 12:00 Mechanical Ventilator 10/01/18 12:00 98.6 75 17 108/45 (66) 100 10/01/18 12:00 75 10/01/18 11:00 76 16 112/70 (84) 100 10/01/18 10:49 78 16 40 10/01/18 10:00 79 16 112/70 (84) 100 10/01/18 09:24 123 16 40 10/01/18 09:00 79 16 109/59 (76) 100 10/01/18 08:00 40 10/01/18 08:00 112 10/01/18 08:00 Mechanical Ventilator 10/01/18 08:00 127 16 100/59 (73) 100 10/01/18 07:01 120 16 40 10/01/18 07:00 98.6 115 17 101/72 (82) 91 10/01/18 06:00 121 20 117/57 (77) 100 10/01/18 05:00 117 18 119/54 (75) 100 10/01/18 04:56 117 15 40 10/01/18 04:00 Mechanical Ventilator 10/01/18 04:00 116 10/01/18 04:00 40 10/01/18 04:00 98.8 117 17 111/70 (84) 91 10/01/18 03:11 120 14 40 10/01/18 03:00 117 16 119/65 (83) 94 10/01/18 02:00 117 17 106/71 (83) 100 10/01/18 01:05 117 16 40 10/01/18 01:00 119 17 113/56 (75) 100 10/01/18 00:00 Mechanical Ventilator 10/01/18 00:00 40 10/01/18 00:00 98.0 75 17 102/49 (66) 100 10/01/18 00:00 75 09/30/18 23:05 77 12 40 09/30/18 23:00 80 18 110/42 (64) 100 Intake and Output 09/30/18 10/01/18 19:00 07:00 Intake Total 1142.4565 ml 820.0 ml Output Total 0 ml 0 ml Balance 1142.4565 ml 820.0 ml Intake Oral 0 ml IV Total 1142.4565 ml 820.0 ml Output Urine Total 0 ml 0 ml Hemodialysis UF 0 ml Laboratory Tests Test 10/01/18 06:00 White Blood Count 15.3 K/UL (4.8-10.8) H Red Blood Count 2.79 M/UL (4.20-5.40) L Hemoglobin 8.5 G/DL (12.0-16.0) #L Hematocrit 25.5 % (37.0-47.0) #L Mean Corpuscular Volume 92 FL (80-99) Mean Corpuscular Hemoglobin 30.6 PG (27.0-31.0) Mean Corpuscular Hemoglobin Concent 33.4 G/DL (32.0-36.0) Red Cell Distribution Width 16.7 % (11.6-14.8) H Platelet Count 419 K/UL (150-450) Mean Platelet Volume 5.3 FL (6.5-10.1) L Neutrophils (%) (Auto) % (45.0-75.0) Lymphocytes (%) (Auto) % (20.0-45.0) Monocytes (%) (Auto) % (1.0-10.0) Eosinophils (%) (Auto) % (0.0-3.0) Basophils (%) (Auto) % (0.0-2.0) Differential Total Cells Counted 100 Neutrophils % (Manual) 85 % (45-75) H Lymphocytes % (Manual) 7 % (20-45) L Monocytes % (Manual) 8 % (1-10) Eosinophils % (Manual) 0 % (0-3) Basophils % (Manual) 0 % (0-2) Band Neutrophils 0 % (0-8) Platelet Estimate Adequate Platelet Morphology Normal Hypochromasia 2+ Anisocytosis 1+ Spherocytes 1+ Sodium Level 135 MMOL/L (136-145) L Potassium Level 3.2 MMOL/L (3.5-5.1) L Chloride Level 98 MMOL/L (98-107) Carbon Dioxide Level 26 MMOL/L (21-32) Anion Gap 11 mmol/L (5-15) Blood Urea Nitrogen 35 mg/dL (7-18) H Creatinine 1.3 MG/DL (0.55-1.30) Estimat Glomerular Filtration Rate mL/min (>60) Glucose Level 62 MG/DL (74-106) L Calcium Level 8.8 MG/DL (8.5-10.1) Height (Feet): 5 Height (Inches): 3.00 Weight (Pounds): 144 Medications Current Medications Medications (Trade) Dose Ordered Sig/Renetta Route PRN Reason Start Time Stop Time Status Last Admin Dose Admin Acetaminophen (Tylenol) 650 mg Q4H PRN RECTAL Mild Pain (Pain Scale 1-3) 09/29/18 19:15 10/29/18 19:14 09/30/18 00:27 Albuterol/ Ipratropium (Albuterol/ Ipratropium) 3 ml Q6H PRN HHN Shortness of Breath 09/29/18 19:15 10/04/18 19:14 Dextrose (Dextrose 50%) 25 ml Q30M PRN IV Hypoglycemia 09/29/18 19:30 10/29/18 19:29 Dextrose (Dextrose 50%) 50 ml Q30M PRN IV Hypoglycemia 09/29/18 19:30 10/29/18 19:29 Epoetin Paul (Epoetin Paul(ESRD on dialysis)) 10,000 unit WED-WED-WED SUBQ 09/30/18 21:00 10/30/18 20:59 09/30/18 21:41 Escitalopram Oxalate (Lexapro) 10 mg DAILY ORAL 10/01/18 11:00 10/31/18 10:59 10/01/18 11:45 Haloperidol (Haldol) 5 mg BID ORAL 10/01/18 18:00 10/31/18 17:59 10/01/18 17:28 Iron Sucrose 100 mg/Sodium Chloride 60 ml @ 240 mls/hr BEDTIME IV 10/01/18 21:00 10/05/18 21:14 10/01/18 20:39 Norepinephrine Bitartrate 8 mg/ Sodium Chloride 250 ml @ 0 mls/hr Q24H IV 09/29/18 21:15 10/29/18 21:14 09/29/18 22:36 Ondansetron HCl (Zofran) 4 mg Q6H PRN IVP Nausea & Vomiting 09/29/18 19:15 10/29/18 19:14 Pantoprazole (Protonix) 40 mg DAILY IV 09/30/18 09:00 10/30/18 08:59 10/01/18 08:23 Piperacillin Sod/ Tazobactam Sod 3.375 gm/Sodium Chloride 110 ml @ 27.5 mls/hr EVERY 8 HOURS IVPB 09/29/18 23:00 10/04/18 22:59 10/01/18 21:24 Sodium Chloride 1,000 ml @ 50 mls/hr Q20H IV 09/29/18 20:00 10/29/18 19:59 10/01/18 21:24 Vancomycin HCl (Vanco rx to dose) 1 ea DAILY PRN MISC Per rx protocol 09/29/18 22:15 10/29/18 22:14 Vancomycin HCl 750 mg/Dextrose 275 ml @ 183.333 mls/hr Q24H IVPB 09/30/18 18:30 10/05/18 18:29 10/01/18 17:28 Assessment/Plan Problem List: (1) Dementia with behavioral disturbance ICD Codes: F03.91 - Unspecified dementia with behavioral disturbance SNOMED: 9434545377582 (2) Encephalopathy chronic ICD Codes: G93.49 - Other encephalopathy SNOMED: 67399992 Assessment/Plan haldol 5mg po bid lexapro 10mg po qam cont restraints. Sophia Castaneda MD Oct 01, 2018 22:50
[2018-10-02] VITALS (23 sets, daily range): BP systolic 107–137; BP diastolic 39–57
--- NOTE | 2018-10-02 | NUR ---
NURSE NOTES: sleeping at this time. afebrile; on NSR. BP stable. Restraints renewed.
--- NOTE | 2018-10-02 02:00 | NUR ---
NURSE NOTES: Awake and restless. Wants restraints off; released for a minute but pt attempted to pull vent tubing out. Reapplied restraints. Repositioned.
--- NOTE | 2018-10-02 04:00 | NUR ---
NURSE NOTES: Complete bed bath done; no BM. Redressed all wounds. No bleeding noted from sacral ulcer. Remains restless. Afebrile; no hypotensive episodes. Tolerates GTF. Bed locked and in low position. Will continue to monitor
[2018-10-02 05:41] LABS: HEMATOCRIT 25.1 % (37.0-47.0); HEMOGLOBIN 8.2 G/DL (12.0-16.0); MEAN CORPUSCULAR VOLUME 93 FL (80-99); PLATELET COUNT 408 K/UL (150-450); RED BLOOD COUNT 2.71 M/UL (4.20-5.40); RED CELL DISTRIBUTION WIDTH 17.1 % (11.6-14.8); WHITE BLOOD COUNT 11.7 K/UL (4.8-10.8)
[2018-10-02] MEDS: Zoysn 3.37gm in NS 100ML IVPB SCH ×3 (05:45→22:09)
[2018-10-02 05:47] LABS: ANION GAP 10 mmol/L (5-15); BLOOD UREA NITROGEN 41 mg/dL (7-18); CALCIUM 8.8 MG/DL (8.5-10.1); CARBON DIOXIDE 25 MMOL/L (21-32); CHLORIDE 98 MMOL/L (98-107); CREATININE 1.7 MG/DL (0.55-1.30); SODIUM 134 MMOL/L (136-145)
[2018-10-02 05:50] LABS: POTASSIUM 2.7 MMOL/L (3.5-5.1)
--- NOTE | 2018-10-02 06:59 | NUR ---
NURSE NOTES: Reported K of 2.[address] He. Order received to give KCL 30 meq IVPB.
--- NOTE | 2018-10-02 07:00 | NUR ---
Received Patient on AC 8, VT 450 , FIO2 40%, PEEP +5. Pt is trach-dependent with a cuffed, Shiley 8 tube. Pt is alert and awake, follows commands. Both hands on soft restraints. Breath sounds reveal bilateral rhonchi. Suction small amounts of thick, yellow-green secretions. Vent plugged into red outlet, ambubag at bedside. Pt in no apparent distress at this time. Will continue to monitor throughout the day.
--- NOTE | 2018-10-02 07:03 | NUR ---
HAND-OFF: Report given to Mily BLAND.
--- NOTE | 2018-10-02 07:05 | NUR ---
NURSE NOTES: report received from BALDO Morgan
--- NOTE | 2018-10-02 08:09 | NUR ---
NURSE NOTES: Awake when received and watching tv with no apparent signs distress. Side rails packed and hand cover with gauze due to self inflicted injuries.Bilateral soft wrist restraints in place release for skin check and improve circulation.Skin intact and afebrile at this time.Trach/Vent Mariaa 8 with AC 8 Vt 450 FiO2 40 Peep 5. GT placement check and intact with no residual at this time. HOB elevated to prevent aspiration. Mouth care done.Turned and repositioned.Dialysis schedule 10/03 and message left to [facility]. AVgraft on Left upper arm with bruit and thrill present. Right hand 20G and right upper arm /22G running D51/2 NS at 50cc/hr with no s/s infiltration. Kept clean and dry. Will continue to monitor. Addendum: 10/02/18 at 1903 by Mily Carrizales RN Spoke to Twila pabon [facility] for dialysis tomorrow
--- NOTE | 2018-10-02 09:05 | Pulmonology Progress Note ---
Assessment/Plan Assessment/Plan 1. Shock, possibly septic. 2. UTI. 3. ESRD, on dialysis. 4. Ventilator dependent respiratory failure. 5. Tracheostomy. 6. Diabetes mellitus. 7. Chronic atrial fibrillation. DISCUSSION: Continue broad-spectrum antibiotics. I will continue AC mode. Continue to decrease FiO2 as tolerated. Blood transfusion as required. Hemodialysis per renal. Andres Allan M.D. Subjective Interval Events: None new Constitutional: Reports: no symptoms HEENT: Repors: no symptoms Respiratory: Reports: no symptoms Cardiovascular: Reports: no symptoms Gastrointestinal/Abdominal: Reports: no symptoms Allergies: Coded Allergies: No Known Allergies (Unverified , 07/25/18) Objective Last 24 Hour Vital Signs Date Time Temp Pulse Resp B/P (MAP) Pulse Ox O2 Delivery O2 Flow Rate FiO2 10/02/18 09:00 98.7 70 16 115/39 (64) 100 10/02/18 08:00 40 10/02/18 08:00 Mechanical Ventilator 10/02/18 07:14 70 16 40 10/02/18 07:00 72 14 120/44 (69) 100 10/02/18 06:00 71 15 115/41 (65) 100 10/02/18 05:00 67 14 120/45 (70) 100 10/02/18 04:50 67 13 40 10/02/18 04:06 66 10/02/18 04:00 98.7 68 16 110/39 (62) 100 10/02/18 04:00 Mechanical Ventilator 10/02/18 04:00 40 10/02/18 03:00 67 15 120/41 (67) 100 10/02/18 02:46 67 17 40 10/02/18 02:00 64 11 114/43 (66) 100 10/02/18 01:09 70 15 40 10/02/18 01:00 72 17 128/50 (76) 99 10/02/18 00:00 67 10/02/18 00:00 Mechanical Ventilator 10/02/18 00:00 40 10/02/18 00:00 98.8 67 12 118/41 (66) 100 10/01/18 23:19 76 13 40 10/01/18 23:00 66 14 113/44 (67) 100 10/01/18 22:00 79 18 137/52 (80) 100 10/01/18 21:15 110/52 10/01/18 21:03 76 18 40 10/01/18 21:00 75 18 110/52 (71) 100 10/01/18 20:00 75 10/01/18 20:00 98.2 75 15 114/40 (64) 100 10/01/18 20:00 Mechanical Ventilator 10/01/18 20:00 40 10/01/18 19:28 77 14 40 10/01/18 19:00 78 18 121/42 (68) 100 10/01/18 18:00 78 18 114/50 (71) 100 10/01/18 17:20 76 21 40 10/01/18 17:00 75 19 117/43 (67) 100 10/01/18 16:00 98.0 72 17 114/55 (74) 100 10/01/18 16:00 Mechanical Ventilator 10/01/18 16:00 78 10/01/18 16:00 40 10/01/18 15:22 76 14 40 10/01/18 15:00 74 19 111/39 (63) 100 10/01/18 14:00 78 18 108/61 (77) 100 10/01/18 13:05 85 16 40 10/01/18 13:00 97 20 133/59 (83) 100 10/01/18 12:00 40 10/01/18 12:00 Mechanical Ventilator 10/01/18 12:00 98.6 75 17 108/45 (66) 100 10/01/18 12:00 75 10/01/18 11:00 76 16 112/70 (84) 100 10/01/18 10:49 78 16 40 10/01/18 10:00 79 16 112/70 (84) 100 10/01/18 09:24 123 16 40 Intake and Output 10/01/18 10/02/18 18:59 06:59 Intake Total 768.666 ml 1200.833 ml Output Total 0 ml 0 ml Balance 768.666 ml 1200.833 ml Free Water 50 ml IV Total 543.666 ml 780.833 ml Tube Feeding 175 ml 420 ml Output Urine Total 0 ml 0 ml General Appearance: no acute distress HEENT: status post trach Respiratory/Chest: chest wall non-tender, lungs clear Cardiovascular: normal peripheral pulses, normal rate Microbiology Date/Time Source Procedure Growth Status 09/29/18 17:50 Blood Blood Culture - Preliminary Staphylococcus Aureus Resulted 09/29/18 17:40 Blood Blood Culture - Preliminary Staphylococcus Aureus Resulted 09/29/18 23:30 Wound Gram Stain - Final Resulted 09/29/18 23:30 Wound Culture - Preliminary Staphylococcus Aureus - Mrsa Pseudomonas Aeruginosa Resulted 10/01/18 14:00 Sputum Gram Stain - Final Resulted 10/01/18 14:00 Sputum Sputum Culture Pending Resulted 09/29/18 18:00 Nasal Nares MRSA Culture - Final Staphylococcus Aureus - Mrsa Complete 09/29/18 16:26 Urine,Clean Catch Urine Culture - Preliminary Escherichia Coli Resulted 09/29/18 18:00 Rectum VRE Culture - Final Enterococcus Faecalis - Vre Enterococcus Faecium - Vre Resulted 09/29/18 18:00 Rectum Pending Resulted Laboratory Tests 10/02/18 04:40: White Blood Count 11.7H, Red Blood Count 2.71L, Hemoglobin 8.2L, Hematocrit 25.1L, Mean Corpuscular Volume 93, Mean Corpuscular Hemoglobin 30.5, Mean Corpuscular Hemoglobin Concent 32.9, Red Cell Distribution Width 17.1H, Platelet Count 408, Mean Platelet Volume 5.8L, Neutrophils (%) (Auto) , Lymphocytes (%) (Auto) , Monocytes (%) (Auto) , Eosinophils (%) (Auto) , Basophils (%) (Auto) , Neutrophils % (Manual) [Pending], Lymphocytes % (Manual) [Pending], Platelet Estimate [Pending], Platelet Morphology [Pending], Sodium Level 134L, Potassium Level 2.7*L, Chloride Level 98, Carbon Dioxide Level 25, Anion Gap 10, Blood Urea Nitrogen 41H, Creatinine 1.7H, Estimat Glomerular Filtration Rate , Glucose Level 87, Calcium Level 8.8 Current Medications Medications (Trade) Dose Ordered Sig/Renetta Route PRN Reason Start Time Stop Time Status Last Admin Dose Admin Acetaminophen (Tylenol) 650 mg Q4H PRN RECTAL Mild Pain (Pain Scale 1-3) 09/29/18 19:15 10/29/18 19:14 09/30/18 00:27 Albuterol/ Ipratropium (Albuterol/ Ipratropium) 3 ml Q6H PRN HHN Shortness of Breath 09/29/18 19:15 10/04/18 19:14 Dextrose (Dextrose 50%) 25 ml Q30M PRN IV Hypoglycemia 09/29/18 19:30 10/29/18 19:29 Dextrose (Dextrose 50%) 50 ml Q30M PRN IV Hypoglycemia 09/29/18 19:30 10/29/18 19:29 Epoetin Paul (Epoetin Paul(ESRD on dialysis)) 10,000 unit WED- SUBQ 09/30/18 21:00 10/30/18 20:59 09/30/18 21:41 Escitalopram Oxalate (Lexapro) 10 mg DAILY ORAL 10/01/18 11:00 10/31/18 10:59 10/01/18 11:45 Haloperidol (Haldol) 5 mg BID ORAL 10/01/18 18:00 10/31/18 17:59 10/01/18 17:28 Iron Sucrose 100 mg/Sodium Chloride 60 ml @ 240 mls/hr BEDTIME IV 10/01/18 21:00 10/05/18 21:14 10/01/18 20:39 Norepinephrine Bitartrate 8 mg/ Sodium Chloride 250 ml @ 0 mls/hr Q24H IV 09/29/18 21:15 10/29/18 21:14 09/29/18 22:36 Ondansetron HCl (Zofran) 4 mg Q6H PRN IVP Nausea & Vomiting 09/29/18 19:15 10/29/18 19:14 Pantoprazole (Protonix) 40 mg DAILY IV 09/30/18 09:00 10/30/18 08:59 10/01/18 08:23 Piperacillin Sod/ Tazobactam Sod 3.375 gm/Sodium Chloride 110 ml @ 27.5 mls/hr EVERY 8 HOURS IVPB 09/29/18 23:00 10/04/18 22:59 10/02/18 05:45 Potassium Chloride 100 ml @ 100 mls/hr Q1H IVPB 10/02/18 07:30 10/02/18 10:29 Sodium Chloride 1,000 ml @ 50 mls/hr Q20H IV 09/29/18 20:00 10/29/18 19:59 10/01/18 21:24 Vancomycin HCl (Vanco rx to dose) 1 ea DAILY PRN MISC Per rx protocol 09/29/18 22:15 10/29/18 22:14 Vancomycin HCl 750 mg/Dextrose 275 ml @ 183.333 mls/hr Q24H IVPB 09/30/18 18:30 10/05/18 18:29 10/01/18 17:28 Andres Allan MD Oct 02, 2018 09:05
[2018-10-02] MEDS: Pantoprazole Inj IV SCH (09:21)
--- NOTE | 2018-10-02 10:10 | Nephrology Progress Note ---
Assessment/Plan Plan Urosepsis (GNR) IV Abx per ID. Worsening anemia 2 above -transfuse on HD. ESRD HD Chr. A. Fib - apixaban. DC'ed due to wound bleeding. I have been notified by Dr. Morfin has GPC in the blood!!! Pt. Has groin TLC inserted last admission. Has Line Sepsis. TLC pulled by Dr. Goodman. Polymicrobial sepsis. Unstable for leaving ICU yet Subjective Subjective Less confused. More alert. Per RN depressed. Objective Objective Last 24 Hour Vital Signs Date Time Temp Pulse Resp B/P (MAP) Pulse Ox O2 Delivery O2 Flow Rate FiO2 10/02/18 09:21 87 14 40 10/02/18 09:00 98.7 70 16 115/39 (64) 100 10/02/18 08:00 40 10/02/18 08:00 Mechanical Ventilator 10/02/18 07:14 70 16 40 10/02/18 07:00 72 14 120/44 (69) 100 10/02/18 06:00 71 15 115/41 (65) 100 10/02/18 05:00 67 14 120/45 (70) 100 10/02/18 04:50 67 13 40 10/02/18 04:06 66 10/02/18 04:00 98.7 68 16 110/39 (62) 100 10/02/18 04:00 Mechanical Ventilator 10/02/18 04:00 40 10/02/18 03:00 67 15 120/41 (67) 100 10/02/18 02:46 67 17 40 10/02/18 02:00 64 11 114/43 (66) 100 10/02/18 01:09 70 15 40 10/02/18 01:00 72 17 128/50 (76) 99 10/02/18 00:00 67 10/02/18 00:00 Mechanical Ventilator 10/02/18 00:00 40 10/02/18 00:00 98.8 67 12 118/41 (66) 100 10/01/18 23:19 76 13 40 10/01/18 23:00 66 14 113/44 (67) 100 10/01/18 22:00 79 18 137/52 (80) 100 10/01/18 21:15 110/52 10/01/18 21:03 76 18 40 10/01/18 21:00 75 18 110/52 (71) 100 10/01/18 20:00 75 10/01/18 20:00 98.2 75 15 114/40 (64) 100 10/01/18 20:00 Mechanical Ventilator 10/01/18 20:00 40 10/01/18 19:28 77 14 40 10/01/18 19:00 78 18 121/42 (68) 100 10/01/18 18:00 78 18 114/50 (71) 100 10/01/18 17:20 76 21 40 10/01/18 17:00 75 19 117/43 (67) 100 10/01/18 16:00 98.0 72 17 114/55 (74) 100 10/01/18 16:00 Mechanical Ventilator 10/01/18 16:00 78 10/01/18 16:00 40 10/01/18 15:22 76 14 40 10/01/18 15:00 74 19 111/39 (63) 100 10/01/18 14:00 78 18 108/61 (77) 100 10/01/18 13:05 85 16 40 10/01/18 13:00 97 20 133/59 (83) 100 10/01/18 12:00 40 10/01/18 12:00 Mechanical Ventilator 10/01/18 12:00 98.6 75 17 108/45 (66) 100 10/01/18 12:00 75 10/01/18 11:00 76 16 112/70 (84) 100 10/01/18 10:49 78 16 40 Intake and Output 10/01/18 10/02/18 19:00 07:00 Intake Total 854.499 ml 990.0 ml Output Total 0 ml 0 ml Balance 854.499 ml 990.0 ml Free Water 50 ml IV Total 594.499 ml 570.0 ml Tube Feeding 210 ml 420 ml Output Urine Total 0 ml 0 ml Laboratory Tests 10/02/18 04:40: White Blood Count 11.7H, Red Blood Count 2.71L, Hemoglobin 8.2L, Hematocrit 25.1L, Mean Corpuscular Volume 93, Mean Corpuscular Hemoglobin 30.5, Mean Corpuscular Hemoglobin Concent 32.9, Red Cell Distribution Width 17.1H, Platelet Count 408, Mean Platelet Volume 5.8L, Neutrophils (%) (Auto) , Lymphocytes (%) (Auto) , Monocytes (%) (Auto) , Eosinophils (%) (Auto) , Basophils (%) (Auto) , Differential Total Cells Counted 100, Neutrophils % ( Manual) 92H, Lymphocytes % (Manual) 3L, Monocytes % (Manual) 4, Eosinophils % ( Manual) 1, Basophils % (Manual) 0, Band Neutrophils 0, Platelet Estimate Adequate, Platelet Morphology Normal, Hypochromasia 1+, Anisocytosis 1+, Sodium Level 134L, Potassium Level 2.7*L, Chloride Level 98, Carbon Dioxide Level 25, Anion Gap 10, Blood Urea Nitrogen 41H, Creatinine 1.7H, Estimat Glomerular Filtration Rate , Glucose Level 87, Calcium Level 8.8 Height (Feet): 5 Height (Inches): 3.00 Weight (Pounds): 150 Objective On Vent. Cv IRR +tach Lungs CTA Abd SNT. BS + E No CCE Chase He MD Oct 02, 2018 10:10
--- NOTE | 2018-10-02 10:15 | Nephrology Progress Note ---
Assessment/Plan Plan Urosepsis (GNR) IV Abx per ID. Worsening anemia 2 above -transfuse on HD. ESRD HD MWF Chr. A. Fib - apixaban. DC'ed due to wound bleeding. I have been notified by Dr. Morfin has GPC in the blood!!! Pt. Has groin TLC inserted last admission. Has Line Sepsis. TLC pulled by Dr. Goodman. Polymicrobial sepsis. Unstable for leaving ICU yet Subjective Subjective Less confused. More alert. Per RN depressed. Objective Objective Last 24 Hour Vital Signs Date Time Temp Pulse Resp B/P (MAP) Pulse Ox O2 Delivery O2 Flow Rate FiO2 10/02/18 10:00 71 14 107/47 (67) 100 10/02/18 09:21 87 14 40 10/02/18 09:00 98.7 70 16 115/39 (64) 100 10/02/18 08:00 67 10/02/18 08:00 40 10/02/18 08:00 Mechanical Ventilator 10/02/18 07:14 70 16 40 10/02/18 07:00 72 14 120/44 (69) 100 10/02/18 06:00 71 15 115/41 (65) 100 10/02/18 05:00 67 14 120/45 (70) 100 10/02/18 04:50 67 13 40 10/02/18 04:06 66 10/02/18 04:00 98.7 68 16 110/39 (62) 100 10/02/18 04:00 Mechanical Ventilator 10/02/18 04:00 40 10/02/18 03:00 67 15 120/41 (67) 100 10/02/18 02:46 67 17 40 10/02/18 02:00 64 11 114/43 (66) 100 10/02/18 01:09 70 15 40 10/02/18 01:00 72 17 128/50 (76) 99 10/02/18 00:00 67 10/02/18 00:00 Mechanical Ventilator 10/02/18 00:00 40 10/02/18 00:00 98.8 67 12 118/41 (66) 100 10/01/18 23:19 76 13 40 10/01/18 23:00 66 14 113/44 (67) 100 10/01/18 22:00 79 18 137/52 (80) 100 10/01/18 21:15 110/52 10/01/18 21:03 76 18 40 10/01/18 21:00 75 18 110/52 (71) 100 10/01/18 20:00 75 10/01/18 20:00 98.2 75 15 114/40 (64) 100 10/01/18 20:00 Mechanical Ventilator 10/01/18 20:00 40 10/01/18 19:28 77 14 40 10/01/18 19:00 78 18 121/42 (68) 100 10/01/18 18:00 78 18 114/50 (71) 100 10/01/18 17:20 76 21 40 10/01/18 17:00 75 19 117/43 (67) 100 10/01/18 16:00 98.0 72 17 114/55 (74) 100 10/01/18 16:00 Mechanical Ventilator 10/01/18 16:00 78 10/01/18 16:00 40 10/01/18 15:22 76 14 40 10/01/18 15:00 74 19 111/39 (63) 100 10/01/18 14:00 78 18 108/61 (77) 100 10/01/18 13:05 85 16 40 10/01/18 13:00 97 20 133/59 (83) 100 10/01/18 12:00 40 10/01/18 12:00 Mechanical Ventilator 10/01/18 12:00 98.6 75 17 108/45 (66) 100 10/01/18 12:00 75 10/01/18 11:00 76 16 112/70 (84) 100 10/01/18 10:49 78 16 40 Intake and Output 10/01/18 10/02/18 18:59 06:59 Intake Total 768.666 ml 1200.833 ml Output Total 0 ml 0 ml Balance 768.666 ml 1200.833 ml Free Water 50 ml IV Total 543.666 ml 780.833 ml Tube Feeding 175 ml 420 ml Output Urine Total 0 ml 0 ml Laboratory Tests 10/02/18 04:40: White Blood Count 11.7H, Red Blood Count 2.71L, Hemoglobin 8.2L, Hematocrit 25.1L, Mean Corpuscular Volume 93, Mean Corpuscular Hemoglobin 30.5, Mean Corpuscular Hemoglobin Concent 32.9, Red Cell Distribution Width 17.1H, Platelet Count 408, Mean Platelet Volume 5.8L, Neutrophils (%) (Auto) , Lymphocytes (%) (Auto) , Monocytes (%) (Auto) , Eosinophils (%) (Auto) , Basophils (%) (Auto) , Differential Total Cells Counted 100, Neutrophils % ( Manual) 92H, Lymphocytes % (Manual) 3L, Monocytes % (Manual) 4, Eosinophils % ( Manual) 1, Basophils % (Manual) 0, Band Neutrophils 0, Platelet Estimate Adequate, Platelet Morphology Normal, Hypochromasia 1+, Anisocytosis 1+, Sodium Level 134L, Potassium Level 2.7*L, Chloride Level 98, Carbon Dioxide Level 25, Anion Gap 10, Blood Urea Nitrogen 41H, Creatinine 1.7H, Estimat Glomerular Filtration Rate , Glucose Level 87, Calcium Level 8.8 Height (Feet): 5 Height (Inches): 3.00 Weight (Pounds): 150 Objective On Vent. Cv IRR +tach Lungs CTA Abd SNT. BS + E No CCE Chase He MD Oct 02, 2018 10:15
--- NOTE | 2018-10-02 10:24 | Infectious Diseases Prog Note ---
Assessment/Plan Assessment/Plan A 1. Staph aureus sepsis 2. E.coli UTI 3. shock resolved 4. pneumonia 5. respiratory failure 6. sacral decubitus ulcer 7. leucocytosis improving 8. Central line infection, femoral line removed 9. ESRD on HD P 1. continue vancomycin iv, Zosyn 2. will follow up cultures Subjective ROS Limited/Unobtainable: Yes Constitutional: Reports: no symptoms Neurologic: Reports: confusion, other - on restraint Allergies: Coded Allergies: No Known Allergies (Unverified , 07/25/18) Objective Vital Signs Last 24 Hour Vital Signs Date Time Temp Pulse Resp B/P (MAP) Pulse Ox O2 Delivery O2 Flow Rate FiO2 10/02/18 10:00 71 14 107/47 (67) 100 10/02/18 09:21 87 14 40 10/02/18 09:00 98.7 70 16 115/39 (64) 100 10/02/18 08:00 67 10/02/18 08:00 40 10/02/18 08:00 Mechanical Ventilator 10/02/18 07:14 70 16 40 10/02/18 07:00 72 14 120/44 (69) 100 10/02/18 06:00 71 15 115/41 (65) 100 10/02/18 05:00 67 14 120/45 (70) 100 10/02/18 04:50 67 13 40 10/02/18 04:06 66 10/02/18 04:00 98.7 68 16 110/39 (62) 100 10/02/18 04:00 Mechanical Ventilator 10/02/18 04:00 40 10/02/18 03:00 67 15 120/41 (67) 100 10/02/18 02:46 67 17 40 10/02/18 02:00 64 11 114/43 (66) 100 10/02/18 01:09 70 15 40 10/02/18 01:00 72 17 128/50 (76) 99 10/02/18 00:00 67 10/02/18 00:00 Mechanical Ventilator 10/02/18 00:00 40 10/02/18 00:00 98.8 67 12 118/41 (66) 100 10/01/18 23:19 76 13 40 10/01/18 23:00 66 14 113/44 (67) 100 10/01/18 22:00 79 18 137/52 (80) 100 2/2/19 21:15 110/52 10/01/18 21:03 76 18 40 10/01/18 21:00 75 18 110/52 (71) 100 10/01/18 20:00 75 10/01/18 20:00 98.2 75 15 114/40 (64) 100 10/01/18 20:00 Mechanical Ventilator 10/01/18 20:00 40 10/01/18 19:28 77 14 40 10/01/18 19:00 78 18 121/42 (68) 100 10/01/18 18:00 78 18 114/50 (71) 100 10/01/18 17:20 76 21 40 10/01/18 17:00 75 19 117/43 (67) 100 10/01/18 16:00 98.0 72 17 114/55 (74) 100 10/01/18 16:00 Mechanical Ventilator 10/01/18 16:00 78 10/01/18 16:00 40 10/01/18 15:22 76 14 40 10/01/18 15:00 74 19 111/39 (63) 100 10/01/18 14:00 78 18 108/61 (77) 100 10/01/18 13:05 85 16 40 10/01/18 13:00 97 20 133/59 (83) 100 10/01/18 12:00 40 10/01/18 12:00 Mechanical Ventilator 10/01/18 12:00 98.6 75 17 108/45 (66) 100 10/01/18 12:00 75 10/01/18 11:00 76 16 112/70 (84) 100 10/01/18 10:49 78 16 40 Height (Feet): 5 Height (Inches): 3.00 Weight (Pounds): 150 General Appearance: no acute distress HEENT: status post trach Respiratory/Chest: lungs clear, other - on ventilator Cardiovascular: normal rate Abdomen: soft, non tender, other - GT feeding Extremities: no edema Neurologic/Psychiatric: alert, responsive, disoriented Microbiology Date/Time Source Procedure Growth Status 09/29/18 17:50 Blood Blood Culture - Preliminary Staphylococcus Aureus Resulted 09/29/18 17:40 Blood Blood Culture - Preliminary Staphylococcus Aureus Resulted 09/29/18 23:30 Wound Gram Stain - Final Resulted 09/29/18 23:30 Wound Culture - Preliminary Staphylococcus Aureus - Mrsa Pseudomonas Aeruginosa Resulted 10/01/18 14:00 Sputum Gram Stain - Final Resulted 10/01/18 14:00 Sputum Sputum Culture Pending Resulted 09/29/18 18:00 Nasal Nares MRSA Culture - Final Staphylococcus Aureus - Mrsa Complete 09/29/18 16:26 Urine,Clean Catch Urine Culture - Preliminary Escherichia Coli Resulted 09/29/18 18:00 Rectum VRE Culture - Final Enterococcus Faecalis - Vre Enterococcus Faecium - Vre Resulted 09/29/18 18:00 Rectum Pending Resulted Laboratory Tests Test 10/02/18 04:40 White Blood Count 11.7 K/UL (4.8-10.8) H Red Blood Count 2.71 M/UL (4.20-5.40) L Hemoglobin 8.2 G/DL (12.0-16.0) L Hematocrit 25.1 % (37.0-47.0) L Mean Corpuscular Volume 93 FL (80-99) Mean Corpuscular Hemoglobin 30.5 PG (27.0-31.0) Mean Corpuscular Hemoglobin Concent 32.9 G/DL (32.0-36.0) Red Cell Distribution Width 17.1 % (11.6-14.8) H Platelet Count 408 K/UL (150-450) Mean Platelet Volume 5.8 FL (6.5-10.1) L Neutrophils (%) (Auto) % (45.0-75.0) Lymphocytes (%) (Auto) % (20.0-45.0) Monocytes (%) (Auto) % (1.0-10.0) Eosinophils (%) (Auto) % (0.0-3.0) Basophils (%) (Auto) % (0.0-2.0) Differential Total Cells Counted 100 Neutrophils % (Manual) 92 % (45-75) H Lymphocytes % (Manual) 3 % (20-45) L Monocytes % (Manual) 4 % (1-10) Eosinophils % (Manual) 1 % (0-3) Basophils % (Manual) 0 % (0-2) Band Neutrophils 0 % (0-8) Platelet Estimate Adequate Platelet Morphology Normal Hypochromasia 1+ Anisocytosis 1+ Sodium Level 134 MMOL/L (136-145) L Potassium Level 2.7 MMOL/L (3.5-5.1) *L Chloride Level 98 MMOL/L (98-107) Carbon Dioxide Level 25 MMOL/L (21-32) Anion Gap 10 mmol/L (5-15) Blood Urea Nitrogen 41 mg/dL (7-18) H Creatinine 1.7 MG/DL (0.55-1.30) H Estimat Glomerular Filtration Rate mL/min (>60) Glucose Level 87 MG/DL (74-106) Calcium Level 8.8 MG/DL (8.5-10.1) Current Medications Medications (Trade) Dose Ordered Sig/Renetta Route PRN Reason Start Time Stop Time Status Last Admin Dose Admin Acetaminophen (Tylenol) 650 mg Q4H PRN RECTAL Mild Pain (Pain Scale 1-3) 09/29/18 19:15 10/29/18 19:14 09/30/18 00:27 Albuterol/ Ipratropium (Albuterol/ Ipratropium) 3 ml Q6H PRN HHN Shortness of Breath 09/29/18 19:15 10/04/18 19:14 Dextrose (Dextrose 50%) 25 ml Q30M PRN IV Hypoglycemia 09/29/18 19:30 10/29/18 19:29 Dextrose (Dextrose 50%) 50 ml Q30M PRN IV Hypoglycemia 09/29/18 19:30 10/29/18 19:29 Epoetin Paul (Epoetin Paul(ESRD on dialysis)) 10,000 unit WED-WED-WED SUBQ 09/30/18 21:00 10/30/18 20:59 09/30/18 21:41 Escitalopram Oxalate (Lexapro) 10 mg DAILY ORAL 10/01/18 11:00 10/31/18 10:59 10/02/18 09:20 Haloperidol (Haldol) 5 mg BID ORAL 10/01/18 18:00 10/31/18 17:59 10/02/18 09:20 Iron Sucrose 100 mg/Sodium Chloride 60 ml @ 240 mls/hr BEDTIME IV 10/01/18 21:00 10/05/18 21:14 10/01/18 20:39 Norepinephrine Bitartrate 8 mg/ Sodium Chloride 250 ml @ 0 mls/hr Q24H IV 09/29/18 21:15 10/29/18 21:14 09/29/18 22:36 Ondansetron HCl (Zofran) 4 mg Q6H PRN IVP Nausea & Vomiting 09/29/18 19:15 10/29/18 19:14 Pantoprazole (Protonix) 40 mg DAILY IV 09/30/18 09:00 10/30/18 08:59 10/02/18 09:21 Piperacillin Sod/ Tazobactam Sod 3.375 gm/Sodium Chloride 110 ml @ 27.5 mls/hr EVERY 8 HOURS IVPB 09/29/18 23:00 10/04/18 22:59 10/02/18 05:45 Potassium Chloride 100 ml @ 100 mls/hr Q1H IVPB 10/02/18 07:30 10/02/18 10:29 10/02/18 09:21 Sodium Chloride 1,000 ml @ 50 mls/hr Q20H IV 09/29/18 20:00 10/29/18 19:59 10/01/18 21:24 Vancomycin HCl (Vanco rx to dose) 1 ea DAILY PRN MISC Per rx protocol 09/29/18 22:15 10/29/18 22:14 Vancomycin HCl 750 mg/Dextrose 275 ml @ 183.333 mls/hr Q24H IVPB 09/30/18 18:30 10/05/18 18:29 10/01/18 17:28 Freedom Randolph MD Oct 02, 2018 10:24
--- NOTE | 2018-10-02 10:28 | NUR ---
NURSE NOTES: Seen by Dr Thacker will follow up with new orders.Turned and repositioned. Kept clean dry and comfortable.HOB elevated to prevent aspiration.
[2018-10-02] MEDS ORDERED: NS 275ml ONE (10:45)
[2018-10-02] MEDS ORDERED: 1/2 NS 1000ml IV ONE (10:45)
[2018-10-02] MEDS ORDERED: Tubing IV Secondary IV ONE (10:45)
--- NOTE | 2018-10-02 12:10 | NUR ---
NURSE NOTES: Pt turned and repositioned.HOB elevated to prevent aspiration. Kept clean and dry. Mouth care done.Will continue to monitor.
--- NOTE | 2018-10-02 13:10 | Surgery Progress Note ---
Surgery Progress Note Subjective Additional Comments no acute events. in ICU ill appearing Objective Last 24 Hour Vital Signs Date Time Temp Pulse Resp B/P (MAP) Pulse Ox O2 Delivery O2 Flow Rate FiO2 10/02/18 13:00 74 14 118/48 (71) 100 10/02/18 12:00 73 10/02/18 12:00 40 10/02/18 12:00 Mechanical Ventilator 10/02/18 12:00 98.0 72 16 111/47 (68) 100 10/02/18 11:03 80 19 40 10/02/18 11:00 76 14 137/57 (83) 100 10/02/18 10:00 71 14 107/47 (67) 100 10/02/18 09:21 87 14 40 10/02/18 09:00 98.7 70 16 115/39 (64) 100 10/02/18 08:00 67 10/02/18 08:00 40 10/02/18 08:00 Mechanical Ventilator 10/02/18 07:14 70 16 40 10/02/18 07:00 72 14 120/44 (69) 100 10/02/18 06:00 71 15 115/41 (65) 100 10/02/18 05:00 67 14 120/45 (70) 100 10/02/18 04:50 67 13 40 10/02/18 04:06 66 10/02/18 04:00 98.7 68 16 110/39 (62) 100 10/02/18 04:00 Mechanical Ventilator 10/02/18 04:00 40 10/02/18 03:00 67 15 120/41 (67) 100 10/02/18 02:46 67 17 40 10/02/18 02:00 64 11 114/43 (66) 100 10/02/18 01:09 70 15 40 10/02/18 01:00 72 17 128/50 (76) 99 10/02/18 00:00 67 10/02/18 00:00 Mechanical Ventilator 10/02/18 00:00 40 10/02/18 00:00 98.8 67 12 118/41 (66) 100 10/01/18 23:19 76 13 40 10/01/18 23:00 66 14 113/44 (67) 100 10/01/18 22:00 79 18 137/52 (80) 100 10/01/18 21:15 110/52 10/01/18 21:03 76 18 40 10/01/18 21:00 75 18 110/52 (71) 100 10/01/18 20:00 75 10/01/18 20:00 98.2 75 15 114/40 (64) 100 10/01/18 20:00 Mechanical Ventilator 10/01/18 20:00 40 10/01/18 19:28 77 14 40 10/01/18 19:00 78 18 121/42 (68) 100 10/01/18 18:00 78 18 114/50 (71) 100 10/01/18 17:20 76 21 40 10/01/18 17:00 75 19 117/43 (67) 100 10/01/18 16:00 98.0 72 17 114/55 (74) 100 10/01/18 16:00 Mechanical Ventilator 10/01/18 16:00 78 10/01/18 16:00 40 10/01/18 15:22 76 14 40 10/01/18 15:00 74 19 111/39 (63) 100 10/01/18 14:00 78 18 108/61 (77) 100 I&O Intake and Output 10/01/18 10/02/18 18:59 06:59 Intake Total 768.666 ml 1200.833 ml Output Total 0 ml 0 ml Balance 768.666 ml 1200.833 ml Free Water 50 ml IV Total 543.666 ml 780.833 ml Tube Feeding 175 ml 420 ml Output Urine Total 0 ml 0 ml Dressing: other Wound: other Drains: other Cardiovascular: RSR Respiratory: decreased breath sounds Abdomen: soft, non-distended Extremities: other Laboratory Tests Test 10/02/18 04:40 White Blood Count 11.7 K/UL (4.8-10.8) H Red Blood Count 2.71 M/UL (4.20-5.40) L Hemoglobin 8.2 G/DL (12.0-16.0) L Hematocrit 25.1 % (37.0-47.0) L Mean Corpuscular Volume 93 FL (80-99) Mean Corpuscular Hemoglobin 30.5 PG (27.0-31.0) Mean Corpuscular Hemoglobin Concent 32.9 G/DL (32.0-36.0) Red Cell Distribution Width 17.1 % (11.6-14.8) H Platelet Count 408 K/UL (150-450) Mean Platelet Volume 5.8 FL (6.5-10.1) L Neutrophils (%) (Auto) % (45.0-75.0) Lymphocytes (%) (Auto) % (20.0-45.0) Monocytes (%) (Auto) % (1.0-10.0) Eosinophils (%) (Auto) % (0.0-3.0) Basophils (%) (Auto) % (0.0-2.0) Differential Total Cells Counted 100 Neutrophils % (Manual) 92 % (45-75) H Lymphocytes % (Manual) 3 % (20-45) L Monocytes % (Manual) 4 % (1-10) Eosinophils % (Manual) 1 % (0-3) Basophils % (Manual) 0 % (0-2) Band Neutrophils 0 % (0-8) Platelet Estimate Adequate Platelet Morphology Normal Hypochromasia 1+ Anisocytosis 1+ Sodium Level 134 MMOL/L (136-145) L Potassium Level 2.7 MMOL/L (3.5-5.1) *L Chloride Level 98 MMOL/L (98-107) Carbon Dioxide Level 25 MMOL/L (21-32) Anion Gap 10 mmol/L (5-15) Blood Urea Nitrogen 41 mg/dL (7-18) H Creatinine 1.7 MG/DL (0.55-1.30) H Estimat Glomerular Filtration Rate mL/min (>60) Glucose Level 87 MG/DL (74-106) Calcium Level 8.8 MG/DL (8.5-10.1) Plan Problems: (1) Septic shock Assessment & Plan: infected central line removed line free plan for PICC soon (2) Decubital ulcer Assessment & Plan: Pt presents with full thickness pressure injury sacrum with deep undermining into L buttocks .Historical arched surgical scar Upper L buttocks.Wound measures(L)3.4cm x (W)3cm x (D)1.5cm ,undermining 12-6 by 12 cm @ 8o'clock. Scattered Biofilm at base of sacrum with40% yellow slough along borders of wound .minimal non-odorous serous exudate.Non-blanchable erythema with additional scattered partial wounds periwound to R and L buttocks Unstageable pressure injury R ischium with 95% slough, 5% erythema along margins.Non-blanchable erythema periwound (L)2cm x (W)0.4cm. Stable dry eschar lateral/posterior R tibia.Periwound is clean and pink.(L)3cmx (W)2cm. Stable dry eschar R heel (L)2cm x (W)1.7cm .Periwound blanchable . Pressure injury with 100% eschar ,loose around edges ,padmaja pink borders .No odor or exudate noted.(L)1.7cm x (W)2cm. L forearm edematous and weeping serous exudate. Scattered senile purpuras bilat upper and bilat lower ext. Skin assessed under trach collar and no evidence of skin breakdown noted. Wound medial /distal R tibia with 100% stable dry eschar (L)2cm x (W)1.6cm. Periwound is pink and dry. Tx.Plan: Cleanse sacral wound with Saline.Loosely pack with Silvasorb impregnated 1/2 inch packing strip .Apply Moisture Barrier paste periwound .Cover with Optifoam drsg Daily and prn. Apply Cavilon Skin Barrier to R ischial wound .Cover with Optifoam drsg .Change every 3 days and prn. Apply Cavilon Skin Barrier to wound medial R tibia.Cover with Optifoam drsg every 7 days and prn. Apply Cavilon Skin Barrier to R heel .Cover with Optifoam drsg. Change every 7 days and prn. Apply Cavilon Skin Barrier to Medial L heel.Cover with Optifoam drsg .Change every 7 days and prn. APM /LATASHA mattress overlay. Reposition at least every 2 hours or as tolerated. Off-load heels with pillow. (3) Severe malnutrition Assessment & Plan: nutrition consult needs optimal nutrition in septic state for recovery and wound healing Reji Nails Oct 02, 2018 13:10
--- NOTE | 2018-10-02 14:10 | NUR ---
NURSE NOTES: Pt turned and repositioned. HOB elevated to prevent aspiration.Kept clean and dry. Will continue to monitor.
--- NOTE | 2018-10-02 16:09 | NUR ---
NURSE NOTES: Pt suctioned with thick mucus secretion. Sputum culture still pending.Turned and repositioned. HOB elevated to prevent aspiration.Will continue to monitor.
--- NOTE | 2018-10-02 18:17 | NUR ---
NURSE NOTES: ADLs done,pt turned and repositioned.Kept clean and dry. Vancomycin not given at this time.Awaiting the trough result.Will endorsed next nurse for follow up.HOB elevated to prevent aspiration.Kept on close monitoring.
--- NOTE | 2018-10-02 19:13 | NUR ---
HAND-OFF: Report given to BALDO Mac.
--- NOTE | 2018-10-02 19:14 | NUR ---
NURSE NOTES: Endorsement received from BALDO Minor. Patient opens eyes spontaneously, follows simple commands. With trache to vent. Shiley 8.0 AC 8 450, PEEP 5, 40% FiO2. With AV shunt at left upper arm. on left arm precautions. Right forearm g22 and r hand g20. Ongoing 1/2NS at 50ml/hr. With GT patent and intact. Ongoing Nepro 35ml/hr. No residual. With bilateral soft wrist restraints for attempting to pull out tubes. On P200 mattress. Head of bed elevated. Call light within reach. Bed locked and in low position. Bed alarm on.
--- NOTE | 2018-10-02 19:43 | NUR ---
RESPIRATORY NOTE: Received pt. on 840 vent. Vent settings are: A/C rate of 8, Vt 450, FI02 40%, PEEP +5. No respiratory distress noted, pt. Sp02 @ 100%. Ambu bag @ BS. Vent plug red outlet. Will continue to monitor pt.
--- NOTE | 2018-10-02 20:00 | NUR ---
NURSE NOTES: Received a call from pharmacy, Vancomycin discontinued due to high vanco trough result. 1830H dose was not given. For random vancomycin level in am.
[2018-10-02] MEDS: Iron Sucrose 100 MG in NS 55 ML IV SCH (20:57)
--- NOTE | 2018-10-02 21:48 | General Progress Note ---
Assessment/Plan Problem List: (1) MDD (major depressive disorder), recurrent episode ICD Codes: F33.9 - Major depressive disorder, recurrent, unspecified SNOMED: 473216562 (2) Dementia with behavioral disturbance ICD Codes: F03.91 - Unspecified dementia with behavioral disturbance SNOMED: 6356635087593 (3) Encephalopathy chronic ICD Codes: G93.49 - Other encephalopathy SNOMED: 49806009 Assessment/Plan lexapro 10mg po qam haldol cont restraints Subjective Neurologic/Psychiatric: Reports: anxiety, depressed, emotional problems Allergies: Coded Allergies: No Known Allergies (Unverified , 07/25/18) Subjective waxing and waning of consciousness Objective Last 24 Hour Vital Signs Date Time Temp Pulse Resp B/P (MAP) Pulse Ox O2 Delivery O2 Flow Rate FiO2 10/02/18 21:15 72 16 40 10/02/18 20:57 123/43 10/02/18 19:42 71 17 40 10/02/18 19:00 76 14 110/47 (68) 100 10/02/18 18:00 66 14 112/41 (64) 100 10/02/18 17:00 67 14 118/42 (67) 100 10/02/18 16:51 75 16 40 10/02/18 16:00 40 10/02/18 16:00 Mechanical Ventilator 10/02/18 16:00 98.6 72 16 121/48 (72) 100 10/02/18 16:00 72 10/02/18 15:26 72 13 40 10/02/18 15:00 71 16 119/54 (75) 100 10/02/18 14:00 74 14 120/54 (76) 100 10/02/18 13:25 76 18 40 10/02/18 13:00 74 14 118/48 (71) 100 10/02/18 12:00 73 10/02/18 12:00 40 10/02/18 12:00 Mechanical Ventilator 10/02/18 12:00 98.0 72 16 111/47 (68) 100 10/02/18 11:03 80 19 40 10/02/18 11:00 76 14 137/57 (83) 100 10/02/18 10:00 71 14 107/47 (67) 100 10/02/18 09:21 87 14 40 10/02/18 09:00 98.7 70 16 115/39 (64) 100 10/02/18 08:00 67 10/02/18 08:00 40 10/02/18 08:00 Mechanical Ventilator 10/02/18 07:14 70 16 40 10/02/18 07:00 72 14 120/44 (69) 100 10/02/18 06:00 71 15 115/41 (65) 100 10/02/18 05:00 67 14 120/45 (70) 100 10/02/18 04:50 67 13 40 10/02/18 04:06 66 10/02/18 04:00 98.7 68 16 110/39 (62) 100 10/02/18 04:00 Mechanical Ventilator 10/02/18 04:00 40 10/02/18 03:00 67 15 120/41 (67) 100 10/02/18 02:46 67 17 40 10/02/18 02:00 64 11 114/43 (66) 100 10/02/18 01:09 70 15 40 10/02/18 01:00 72 17 128/50 (76) 99 10/02/18 00:00 67 10/02/18 00:00 Mechanical Ventilator 10/02/18 00:00 40 10/02/18 00:00 98.8 67 12 118/41 (66) 100 10/01/18 23:19 76 13 40 10/01/18 23:00 66 14 113/44 (67) 100 10/01/18 22:00 79 18 137/52 (80) 100 Intake and Output 10/01/18 10/02/18 19:00 07:00 Intake Total 854.499 ml 1067.5 ml Output Total 0 ml 0 ml Balance 854.499 ml 1067.5 ml Free Water 50 ml IV Total 594.499 ml 647.5 ml Tube Feeding 210 ml 420 ml Output Urine Total 0 ml 0 ml Laboratory Tests 10/02/18 04:40: White Blood Count 11.7H, Red Blood Count 2.71L, Hemoglobin 8.2L, Hematocrit 25.1L, Mean Corpuscular Volume 93, Mean Corpuscular Hemoglobin 30.5, Mean Corpuscular Hemoglobin Concent 32.9, Red Cell Distribution Width 17.1H, Platelet Count 408, Mean Platelet Volume 5.8L, Neutrophils (%) (Auto) , Lymphocytes (%) (Auto) , Monocytes (%) (Auto) , Eosinophils (%) (Auto) , Basophils (%) (Auto) , Differential Total Cells Counted 100, Neutrophils % ( Manual) 92H, Lymphocytes % (Manual) 3L, Monocytes % (Manual) 4, Eosinophils % ( Manual) 1, Basophils % (Manual) 0, Band Neutrophils 0, Platelet Estimate Adequate, Platelet Morphology Normal, Hypochromasia 1+, Anisocytosis 1+, Sodium Level 134L, Potassium Level 2.7*L, Chloride Level 98, Carbon Dioxide Level 25, Anion Gap 10, Blood Urea Nitrogen 41H, Creatinine 1.7H, Estimat Glomerular Filtration Rate , Glucose Level 87, Calcium Level 8.8 10/02/18 17:25: Vancomycin Level Trough 22.7H Height (Feet): 5 Height (Inches): 3.00 Weight (Pounds): 150 General Appearance: alert, confused, moderate distress, agitated Sophia Castaneda MD Oct 02, 2018 21:48
--- NOTE | 2018-10-02 22:00 | NUR ---
NURSE NOTES: Secretions suctioned. Oral care done. Patient repositioned.
[2018-10-03] VITALS (24 sets, daily range): BP systolic 117–140; BP diastolic 46–68
--- NOTE | 2018-10-03 | NUR ---
NURSE NOTES: Patient asleep at this time. No signs of pain or discomfort. Tolerating feeding.
--- NOTE | 2018-10-03 02:00 | NUR ---
NURSE NOTES: Patient passed soft brown stool. Bed bath, oral care, change of dressings and linens done.
--- NOTE | 2018-10-03 04:00 | NUR ---
NURSE NOTES: Patient awake, restless. Offered reassurance. Repositioned for comfort. Feeding tolerated. Head of bed kept elevated.
[2018-10-03] MEDS: Zoysn 3.37gm in NS 100ML IVPB SCH (05:35)
[2018-10-03 05:50] LABS: HEMATOCRIT 23.1 % (37.0-47.0); HEMOGLOBIN 7.7 G/DL (12.0-16.0); MEAN CORPUSCULAR VOLUME 93 FL (80-99); PLATELET COUNT 414 K/UL (150-450); RED BLOOD COUNT 2.49 M/UL (4.20-5.40); RED CELL DISTRIBUTION WIDTH 16.5 % (11.6-14.8)
[2018-10-03 06:20] LABS: ANION GAP 12 mmol/L (5-15); BLOOD UREA NITROGEN 50 mg/dL (7-18); CALCIUM 8.5 MG/DL (8.5-10.1); CARBON DIOXIDE 23 MMOL/L (21-32); CHLORIDE 99 MMOL/L (98-107); CREATININE 1.9 MG/DL (0.55-1.30); SODIUM 134 MMOL/L (136-145)
--- NOTE | 2018-10-03 06:57 | NUR ---
NURSE NOTES: Paged Dr. Cabezas for Hgb 7.7, Hct 23.1, K 3.0. Awaiting for return call.
--- NOTE | 2018-10-03 07:12 | NUR ---
RESPIRATORY NOTE: received pt on current vent settings. josh [address], secured via trach tie/guard. no resp distress noted at this time. vent is plugged into red outlet with alarms on and audible. ambu bag and back up trach at bedside. will cont to monitor
--- NOTE | 2018-10-03 07:17 | NUR ---
HAND-OFF: Report given to BALDO Minor.
--- NOTE | 2018-10-03 07:30 | NUR ---
NURSE NOTES: Report received from BALDO Mac
--- NOTE | 2018-10-03 07:32 | Pulmonology Progress Note ---
Assessment/Plan Assessment/Plan 1. Shock, septic. 2. UTI. 3. ESRD, on dialysis. 4. Ventilator dependent respiratory failure. 5. Tracheostomy. 6. Diabetes mellitus. 7. Chronic atrial fibrillation. 8. Bacteremia. DISCUSSION: Continue broad-spectrum antibiotics. I will continue AC mode. Continue to decrease FiO2 as tolerated. Blood transfusion as required. Hemodialysis per renal. Andres Allan M.D. Subjective Interval Events: Noted to be bacteremic; seen by ID Constitutional: Reports: no symptoms HEENT: Repors: no symptoms Respiratory: Reports: no symptoms Cardiovascular: Reports: no symptoms Gastrointestinal/Abdominal: Reports: no symptoms Genitourinary: Reports: no symptoms Allergies: Coded Allergies: No Known Allergies (Unverified , 07/25/18) Objective Last 24 Hour Vital Signs Date Time Temp Pulse Resp B/P (MAP) Pulse Ox O2 Delivery O2 Flow Rate FiO2 10/03/18 07:11 112 15 40 10/03/18 07:00 100 15 123/63 (83) 100 10/03/18 06:00 74 15 128/53 (78) 100 10/03/18 05:01 70 15 40 10/03/18 05:00 72 15 124/49 (74) 100 10/03/18 04:00 Mechanical Ventilator 10/03/18 04:00 40 10/03/18 04:00 66 10/03/18 04:00 98.0 68 15 124/50 (74) 100 10/03/18 03:30 68 11 40 10/03/18 03:00 67 14 121/47 (71) 100 10/03/18 02:00 67 16 120/47 (71) 100 10/03/18 01:27 67 13 40 10/03/18 01:00 69 16 120/47 (71) 100 10/03/18 00:00 98.2 69 16 125/55 (78) 100 10/03/18 00:00 Mechanical Ventilator 10/03/18 00:00 67 10/03/18 00:00 40 10/02/18 23:00 69 15 120/46 (70) 100 10/02/18 22:00 69 15 113/49 (70) 100 10/02/18 21:15 72 16 40 10/02/18 21:00 70 16 115/43 (67) 100 10/02/18 20:57 123/43 10/02/18 20:00 Mechanical Ventilator 10/02/18 20:00 40 10/02/18 20:00 69 10/02/18 20:00 98.0 70 16 115/43 (67) 100 10/02/18 19:42 71 17 40 10/02/18 19:00 76 14 110/47 (68) 100 10/02/18 18:00 66 14 112/41 (64) 100 10/02/18 17:00 67 14 118/42 (67) 100 10/02/18 16:51 75 16 40 10/02/18 16:00 40 10/02/18 16:00 Mechanical Ventilator 10/02/18 16:00 98.6 72 16 121/48 (72) 100 10/02/18 16:00 72 10/02/18 15:26 72 13 40 10/02/18 15:00 71 16 119/54 (75) 100 10/02/18 14:00 74 14 120/54 (76) 100 10/02/18 13:25 76 18 40 10/02/18 13:00 74 14 118/48 (71) 100 10/02/18 12:00 73 10/02/18 12:00 40 10/02/18 12:00 Mechanical Ventilator 10/02/18 12:00 98.0 72 16 111/47 (68) 100 10/02/18 11:03 80 19 40 10/02/18 11:00 76 14 137/57 (83) 100 10/02/18 10:00 71 14 107/47 (67) 100 10/02/18 09:21 87 14 40 10/02/18 09:00 98.7 70 16 115/39 (64) 100 10/02/18 08:00 67 10/02/18 08:00 40 10/02/18 08:00 Mechanical Ventilator Intake and Output 10/02/18 10/03/18 19:00 07:00 Intake Total 1486.25 ml 980 ml Output Total 0 ml 0 ml Balance 1486.25 ml 980 ml Free Water 60 ml IV Total 1066.25 ml 500 ml Tube Feeding 420 ml 420 ml Output Urine Total 0 ml 0 ml # Bowel Movements 1 2 General Appearance: no acute distress HEENT: normocephalic, status post trach Respiratory/Chest: chest wall non-tender, lungs clear Cardiovascular: normal peripheral pulses, normal rate Microbiology Date/Time Source Procedure Growth Status 10/01/18 14:00 Sputum Gram Stain - Final Resulted 10/01/18 14:00 Sputum Sputum Culture Pending Resulted Laboratory Tests 10/02/18 17:25: Vancomycin Level Trough 22.7H 10/03/18 04:20: White Blood Count 12.0H, Red Blood Count 2.49L, Hemoglobin 7.7L, Hematocrit 23.1L, Mean Corpuscular Volume 93, Mean Corpuscular Hemoglobin 31.1H, Mean Corpuscular Hemoglobin Concent 33.5, Red Cell Distribution Width 16.5H, Platelet Count 414, Mean Platelet Volume 6.0L, Neutrophils (%) (Auto) , Lymphocytes (%) (Auto) , Monocytes (%) (Auto) , Eosinophils (%) (Auto) , Basophils (%) (Auto) , Neutrophils % (Manual) [Pending], Lymphocytes % (Manual) [Pending], Platelet Estimate [Pending], Platelet Morphology [Pending], Sodium Level 134L, Potassium Level 3.0L, Chloride Level 99, Carbon Dioxide Level 23, Anion Gap 12, Blood Urea Nitrogen 50H, Creatinine 1.9H, Estimat Glomerular Filtration Rate , Glucose Level 108H, Calcium Level 8.5, Random Vancomycin Level 21.2 Current Medications Medications (Trade) Dose Ordered Sig/Renetta Route PRN Reason Start Time Stop Time Status Last Admin Dose Admin Acetaminophen (Tylenol) 650 mg Q4H PRN RECTAL Mild Pain (Pain Scale 1-3) 09/29/18 19:15 10/29/18 19:14 09/30/18 00:27 Albuterol/ Ipratropium (Albuterol/ Ipratropium) 3 ml Q6H PRN HHN Shortness of Breath 09/29/18 19:15 10/04/18 19:14 Dextrose (Dextrose 50%) 25 ml Q30M PRN IV Hypoglycemia 09/29/18 19:30 10/29/18 19:29 Dextrose (Dextrose 50%) 50 ml Q30M PRN IV Hypoglycemia 09/29/18 19:30 10/29/18 19:29 Epoetin Paul (Epoetin Paul(ESRD on dialysis)) 10,000 unit WED-WED-WED SUBQ 09/30/18 21:00 10/30/18 20:59 09/30/18 21:41 Escitalopram Oxalate (Lexapro) 10 mg DAILY ORAL 10/01/18 11:00 10/31/18 10:59 10/02/18 09:20 Haloperidol (Haldol) 5 mg BID ORAL 10/01/18 18:00 10/31/18 17:59 10/02/18 18:09 Heparin Sodium (Porcine) (Heparin Sod 1000 units/ml 10ml) 500 unit ONCE IV 10/03/18 10:30 10/03/18 18:00 Iron Sucrose 100 mg/Sodium Chloride 60 ml @ 240 mls/hr BEDTIME IV 10/01/18 21:00 10/05/18 21:14 10/02/18 20:57 Norepinephrine Bitartrate 8 mg/ Sodium Chloride 250 ml @ 0 mls/hr Q24H IV 09/29/18 21:15 10/29/18 21:14 09/29/18 22:36 Ondansetron HCl (Zofran) 4 mg Q6H PRN IVP Nausea & Vomiting 09/29/18 19:15 10/29/18 19:14 Pantoprazole (Protonix) 40 mg DAILY IV 09/30/18 09:00 10/30/18 08:59 10/02/18 09:21 Piperacillin Sod/ Tazobactam Sod 3.375 gm/Sodium Chloride 110 ml @ 27.5 mls/hr EVERY 8 HOURS IVPB 09/29/18 23:00 10/04/18 22:59 10/03/18 05:35 Sodium Chloride 1,000 ml @ 50 mls/hr Q20H IV 09/29/18 20:00 10/29/18 19:59 10/02/18 18:43 Sodium Chloride 1,000 ml @ 500 mls/hr Q2H PRN IVLG sbp<90 during hd 10/03/18 10:17 11/02/18 10:16 Vancomycin HCl (Vanco rx to dose) 1 ea DAILY PRN MISC Per rx protocol 09/29/18 22:15 10/29/18 22:14 Andres Allan MD Oct 03, 2018 07:32
--- NOTE | 2018-10-03 07:33 | NUR ---
NURSE NOTES: Call received from Dr Cabezas with order to transfuse 1 unit PRBC and give 4K during dialysis.Order noted and carried out
--- NOTE | 2018-10-03 08:08 | NUR ---
NURSE NOTES: Patient asleep when received still packed side rails and hand cover with gauze due to self inflicted injuries.Skin intact and afebrile at this time.Trach/Vent Mariaa 8 with AC 8 Vt 450 FiO2 40 Peep 5. Bilateral soft wrist restraints in place release for skin check and improve circulation.GT placement check and intact with no residual at this time. HOB elevated to prevent aspiration. Mouth care done.Turned and repositioned.Dialysis schedule today. AVgraft on Left upper arm with bruit and thrill present. Right hand 20G and right upper arm /22G running D51/2 NS at 50cc/hr with no s/s infiltration. Kept clean and dry. Will continue to monitor. Addendum: 10/03/18 at 1357 by Mily Carrizales RN Seen by Dr Thacker will follow up with new orders
[2018-10-03] MEDS: Pantoprazole Inj IV SCH (08:33)
--- NOTE | 2018-10-03 10:05 | NUR ---
NURSE NOTES: Patient turned and repositioned.HOB elevated to prevent aspiration.No residual noted , placement still intact.Will continue to monitor.
[2018-10-03] MEDS ORDERED: Heparin Sod 1000 units/ml 10ml IV SCH (10:30)
[2018-10-03 10:54] LABS: HEMATOCRIT 26.4 % (37.0-47.0); HEMOGLOBIN 8.5 G/DL (12.0-16.0); MEAN CORPUSCULAR VOLUME 93 FL (80-99); PLATELET COUNT 453 K/UL (150-450); RED BLOOD COUNT 2.83 M/UL (4.20-5.40); RED CELL DISTRIBUTION WIDTH 16.6 % (11.6-14.8); WHITE BLOOD COUNT 12.8 K/UL (4.8-10.8)
[2018-10-03 11:18] LABS: ALANINE AMINOTRANSFERASE 20 U/L (12-78); ALBUMIN 1.2 G/DL (3.4-5.0); ALKALINE PHOSPHATASE 116 U/L (46-116); ASPARTATE AMINO TRANSFERASE 34 U/L (15-37); BILIRUBIN,DIRECT 0.1 MG/DL (0.0-0.3); BILIRUBIN,TOTAL 0.4 MG/DL (0.2-1.0)
--- NOTE | 2018-10-03 11:18 | Infectious Diseases Prog Note ---
Assessment/Plan Assessment/Plan antibiotics : vancomycin iv, zosyn A 1. MRSA sepsis s/p catheter removal 2. e.coli UTI 3. shock resolved 4. pneumonia 5. respiratory failure 6. sacral decubitus ulcer 7. leucocytosis improving 8. renal failure P 1. continue vancomycin iv 2. d/c zosyn 3. start ertapenem 4. 2 d echo 5. will follow up cultures Subjective ROS Limited/Unobtainable: Yes Allergies: Coded Allergies: No Known Allergies (Unverified , 07/25/18) Objective Vital Signs Last 24 Hour Vital Signs Date Time Temp Pulse Resp B/P (MAP) Pulse Ox O2 Delivery O2 Flow Rate FiO2 10/03/18 10:00 108 15 119/50 (73) 100 10/03/18 09:00 68 15 128/50 (76) 100 10/03/18 08:33 66 15 40 10/03/18 08:00 74 10/03/18 08:00 Mechanical Ventilator 10/03/18 08:00 40 10/03/18 08:00 97.8 69 15 121/48 (72) 100 10/03/18 08:00 69 10/03/18 07:11 112 15 40 10/03/18 07:00 100 15 123/63 (83) 100 10/03/18 06:00 74 15 128/53 (78) 100 10/03/18 05:01 70 15 40 10/03/18 05:00 72 15 124/49 (74) 100 10/03/18 04:00 Mechanical Ventilator 10/03/18 04:00 40 10/03/18 04:00 66 10/03/18 04:00 98.0 68 15 124/50 (74) 100 10/03/18 03:30 68 11 40 10/03/18 03:00 67 14 121/47 (71) 100 10/03/18 02:00 67 16 120/47 (71) 100 10/03/18 01:27 67 13 40 10/03/18 01:00 69 16 120/47 (71) 100 10/03/18 00:00 98.2 69 16 125/55 (78) 100 10/03/18 00:00 Mechanical Ventilator 10/03/18 00:00 67 10/03/18 00:00 40 10/02/18 23:00 69 15 120/46 (70) 100 10/02/18 22:00 69 15 113/49 (70) 100 10/02/18 21:15 72 16 40 10/02/18 21:00 70 16 115/43 (67) 100 10/02/18 20:57 123/43 10/02/18 20:00 Mechanical Ventilator 10/02/18 20:00 40 10/02/18 20:00 69 10/02/18 20:00 98.0 70 16 115/43 (67) 100 10/02/18 19:42 71 17 40 10/02/18 19:00 76 14 110/47 (68) 100 10/02/18 18:00 66 14 112/41 (64) 100 10/02/18 17:00 67 14 118/42 (67) 100 10/02/18 16:51 75 16 40 10/02/18 16:00 40 10/02/18 16:00 Mechanical Ventilator 10/02/18 16:00 98.6 72 16 121/48 (72) 100 10/02/18 16:00 72 10/02/18 15:26 72 13 40 10/02/18 15:00 71 16 119/54 (75) 100 10/02/18 14:00 74 14 120/54 (76) 100 10/02/18 13:25 76 18 40 10/02/18 13:00 74 14 118/48 (71) 100 10/02/18 12:00 73 10/02/18 12:00 40 10/02/18 12:00 Mechanical Ventilator 10/02/18 12:00 98.0 72 16 111/47 (68) 100 Height (Feet): 5 Height (Inches): 3.00 Weight (Pounds): 151 HEENT: status post trach Respiratory/Chest: lungs clear Cardiovascular: normal rate, regular rhythm, no gallop/murmur Abdomen: soft, non tender, other - GT Extremities: no edema Microbiology Date/Time Source Procedure Growth Status 10/01/18 14:00 Sputum Gram Stain - Final Resulted 10/01/18 14:00 Sputum Sputum Culture Pending Resulted Laboratory Tests Test 10/02/18 17:25 10/03/18 04:20 10/03/18 10:30 Vancomycin Level Trough 22.7 ug/mL (5.0-12.0) H White Blood Count 12.0 K/UL (4.8-10.8) H 12.8 K/UL (4.8-10.8) H Red Blood Count 2.49 M/UL (4.20-5.40) L 2.83 M/UL (4.20-5.40) L Hemoglobin 7.7 G/DL (12.0-16.0) L 8.5 G/DL (12.0-16.0) L Hematocrit 23.1 % (37.0-47.0) L 26.4 % (37.0-47.0) L Mean Corpuscular Volume 93 FL (80-99) 93 FL (80-99) Mean Corpuscular Hemoglobin 31.1 PG (27.0-31.0) H 30.2 PG (27.0-31.0) Mean Corpuscular Hemoglobin Concent 33.5 G/DL (32.0-36.0) 32.3 G/DL (32.0-36.0) Red Cell Distribution Width 16.5 % (11.6-14.8) H 16.6 % (11.6-14.8) H Platelet Count 414 K/UL (150-450) 453 K/UL (150-450) H Mean Platelet Volume 6.0 FL (6.5-10.1) L 5.8 FL (6.5-10.1) L Neutrophils (%) (Auto) % (45.0-75.0) % (45.0-75.0) Lymphocytes (%) (Auto) % (20.0-45.0) % (20.0-45.0) Monocytes (%) (Auto) % (1.0-10.0) % (1.0-10.0) Eosinophils (%) (Auto) % (0.0-3.0) % (0.0-3.0) Basophils (%) (Auto) % (0.0-2.0) % (0.0-2.0) Differential Total Cells Counted 100 Neutrophils % (Manual) 82 % (45-75) H Pending Lymphocytes % (Manual) 8 % (20-45) L Pending Monocytes % (Manual) 7 % (1-10) Eosinophils % (Manual) 2 % (0-3) Basophils % (Manual) 1 % (0-2) Band Neutrophils 0 % (0-8) Platelet Estimate Adequate Pending Platelet Morphology Normal Pending Hypochromasia 3+ Anisocytosis 1+ Spherocytes 1+ Sodium Level 134 MMOL/L (136-145) L Potassium Level 3.0 MMOL/L (3.5-5.1) L Chloride Level 99 MMOL/L (98-107) Carbon Dioxide Level 23 MMOL/L (21-32) Anion Gap 12 mmol/L (5-15) Blood Urea Nitrogen 50 mg/dL (7-18) H Creatinine 1.9 MG/DL (0.55-1.30) H Estimat Glomerular Filtration Rate mL/min (>60) Glucose Level 108 MG/DL (74-106) H Calcium Level 8.5 MG/DL (8.5-10.1) Phosphorus Level Pending Total Bilirubin Pending Direct Bilirubin Pending Aspartate Amino Transf (AST/SGOT) Pending Alanine Aminotransferase (ALT/SGPT) Pending Alkaline Phosphatase Pending Total Protein Pending Albumin Pending Random Vancomycin Level 21.2 ug/mL Current Medications Medications (Trade) Dose Ordered Sig/Renetta Route PRN Reason Start Time Stop Time Status Last Admin Dose Admin Acetaminophen (Tylenol) 650 mg Q4H PRN RECTAL Mild Pain (Pain Scale 1-3) 09/29/18 19:15 10/29/18 19:14 09/30/18 00:27 Albuterol/ Ipratropium (Albuterol/ Ipratropium) 3 ml Q6H PRN HHN Shortness of Breath 09/29/18 19:15 10/04/18 19:14 Dextrose (Dextrose 50%) 25 ml Q30M PRN IV Hypoglycemia 09/29/18 19:30 10/29/18 19:29 Dextrose (Dextrose 50%) 50 ml Q30M PRN IV Hypoglycemia 09/29/18 19:30 10/29/18 19:29 Epoetin Paul (Epoetin Paul(ESRD on dialysis)) 10,000 unit WED-WED-WED SUBQ 09/30/18 21:00 10/30/18 20:59 09/30/18 21:41 Escitalopram Oxalate (Lexapro) 10 mg DAILY ORAL 10/01/18 11:00 10/31/18 10:59 10/03/18 08:33 Haloperidol (Haldol) 5 mg BID ORAL 10/01/18 18:00 10/31/18 17:59 10/03/18 08:33 Heparin Sodium (Porcine) (Heparin Sod 1000 units/ml 10ml) 500 unit ONCE IV 10/03/18 10:30 10/03/18 18:00 Iron Sucrose 100 mg/Sodium Chloride 60 ml @ 240 mls/hr BEDTIME IV 10/01/18 21:00 10/05/18 21:14 10/02/18 20:57 Norepinephrine Bitartrate 8 mg/ Sodium Chloride 250 ml @ 0 mls/hr Q24H IV 09/29/18 21:15 10/29/18 21:14 09/29/18 22:36 Ondansetron HCl (Zofran) 4 mg Q6H PRN IVP Nausea & Vomiting 09/29/18 19:15 10/29/18 19:14 Pantoprazole (Protonix) 40 mg DAILY IV 09/30/18 09:00 10/30/18 08:59 10/03/18 08:33 Piperacillin Sod/ Tazobactam Sod 3.375 gm/Sodium Chloride 110 ml @ 27.5 mls/hr EVERY 8 HOURS IVPB 09/29/18 23:00 10/04/18 22:59 10/03/18 05:35 Sodium Chloride 1,000 ml @ 50 mls/hr Q20H IV 09/29/18 20:00 10/29/18 19:59 10/03/18 09:46 Sodium Chloride 1,000 ml @ 500 mls/hr Q2H PRN IVLG sbp<90 during hd 10/03/18 10:17 11/02/18 10:16 Vancomycin HCl (Vanco rx to dose) 1 ea DAILY PRN MISC Per rx protocol 09/29/18 22:15 10/29/18 22:14 Omid Morfin MD Oct 03, 2018 11:18
--- NOTE | 2018-10-03 11:20 | NUR ---
NURSE NOTES: Seen by Dr King will follow with new orders
[2018-10-03] MEDS ORDERED: Ertapenem 1 GM in NS 55 ML IVPB SCH (11:30)
--- NOTE | 2018-10-03 12:05 | NUR ---
NURSE NOTES: Mouth care done.Kept clean and dry.Turned and repositioned.Kept on close monitoring.
--- NOTE | 2018-10-03 12:13 | NUR ---
RD ASSESSMENT & RECOMMENDATIONS SEE CARE ACTIVITY FOR COMPLETE ASSESSMENT DAILY ESTIMATED NEEDS: Needs based on Critical care + Wounds + ESRD w/ HD/ 60kg 22-30 kcals/kg [id number] total kcals 1.5-2.0 g protein/kg 90-120g g total protein Fluid per MD on HD mL/kg total fluid mLs NUTRITION DIAGNOSIS: * Swallowing difficulty R/T respiratory status as evidenced by pt is trach and PEG dep. * Increased kcal/prot needs R/T wound healing as evidenced by pt admitted w/ multiple wounds advanced wound, refer to WC eval. * Altered nutrition related lab values R/T ESRD dx, clinical condition as evidenced by low Hgb (5.8->8.5), critical WBC now trending down, low BP, now off pressor support. CURRENT TF:Nepro @35ml/hr x 24 hr ENTERAL NUTRITION RECOMMENDATIONS: Nepro @35ml/hr x 24 hrs + Prosource 1pkt BID to provide 840ml, 1512 kcal, 78g + 22g prot, 611ml free water 1. add Prosource 1 pack BID to better meet est protein needs 2. HOB over 30 degrees, flush per MD. FEED W/ HEMODYNAMIC STABILITY, OTHERWISE TROPHIC FEEDS OF 5-10ML/HR FOR GUT INTEGRITY ADDITIONAL RECOMMENDATIONS: * Re-calibrate bed scale (per SNF 09/28 wts: 132#, 60kg) * Wound care: add DUNIA BID + Nephrovite x1 daily -> rec VIT C per nephro MD * Monitor HD stability . .
--- NOTE | 2018-10-03 12:46 | Surgery Progress Note ---
Surgery Progress Note Subjective Additional Comments still in ICU. ill appearing. labs noted. line out. awaiting new line. feeds going okay Objective Last 24 Hour Vital Signs Date Time Temp Pulse Resp B/P (MAP) Pulse Ox O2 Delivery O2 Flow Rate FiO2 10/03/18 12:00 40 10/03/18 12:00 98.2 73 13 122/67 (85) 100 10/03/18 12:00 Mechanical Ventilator 10/03/18 11:00 107 15 122/67 (85) 100 10/03/18 10:00 108 15 119/50 (73) 100 10/03/18 09:00 68 15 128/50 (76) 100 10/03/18 08:33 66 15 40 10/03/18 08:00 74 10/03/18 08:00 Mechanical Ventilator 10/03/18 08:00 40 10/03/18 08:00 97.8 69 15 121/48 (72) 100 10/03/18 08:00 69 10/03/18 07:11 112 15 40 10/03/18 07:00 100 15 123/63 (83) 100 10/03/18 06:00 74 15 128/53 (78) 100 10/03/18 05:01 70 15 40 10/03/18 05:00 72 15 124/49 (74) 100 10/03/18 04:00 Mechanical Ventilator 10/03/18 04:00 40 10/03/18 04:00 66 10/03/18 04:00 98.0 68 15 124/50 (74) 100 10/03/18 03:30 68 11 40 10/03/18 03:00 67 14 121/47 (71) 100 10/03/18 02:00 67 16 120/47 (71) 100 10/03/18 01:27 67 13 40 10/03/18 01:00 69 16 120/47 (71) 100 10/03/18 00:00 98.2 69 16 125/55 (78) 100 10/03/18 00:00 Mechanical Ventilator 10/03/18 00:00 67 10/03/18 00:00 40 10/02/18 23:00 69 15 120/46 (70) 100 10/02/18 22:00 69 15 113/49 (70) 100 10/02/18 21:15 72 16 40 10/02/18 21:00 70 16 115/43 (67) 100 10/02/18 20:57 123/43 10/02/18 20:00 Mechanical Ventilator 10/02/18 20:00 40 10/02/18 20:00 69 10/02/18 20:00 98.0 70 16 115/43 (67) 100 10/02/18 19:42 71 17 40 10/02/18 19:00 76 14 110/47 (68) 100 10/02/18 18:00 66 14 112/41 (64) 100 10/02/18 17:00 67 14 118/42 (67) 100 10/02/18 16:51 75 16 40 10/02/18 16:00 40 10/02/18 16:00 Mechanical Ventilator 10/02/18 16:00 98.6 72 16 121/48 (72) 100 10/02/18 16:00 72 10/02/18 15:26 72 13 40 10/02/18 15:00 71 16 119/54 (75) 100 10/02/18 14:00 74 14 120/54 (76) 100 10/02/18 13:25 76 18 40 10/02/18 13:00 74 14 118/48 (71) 100 I&O Intake and Output 10/02/18 10/03/18 19:00 07:00 Intake Total 1486.25 ml 1057.5 ml Output Total 0 ml 0 ml Balance 1486.25 ml 1057.5 ml Free Water 60 ml IV Total 1066.25 ml 577.5 ml Tube Feeding 420 ml 420 ml Output Urine Total 0 ml 0 ml # Bowel Movements 1 2 Dressing: other Wound: other Drains: other Cardiovascular: RSR Respiratory: decreased breath sounds Abdomen: soft, decreased bowel sounds Extremities: other Laboratory Tests Test 10/02/18 17:25 10/03/18 04:20 10/03/18 10:30 Vancomycin Level Trough 22.7 ug/mL (5.0-12.0) H White Blood Count 12.0 K/UL (4.8-10.8) H 12.8 K/UL (4.8-10.8) H Red Blood Count 2.49 M/UL (4.20-5.40) L 2.83 M/UL (4.20-5.40) L Hemoglobin 7.7 G/DL (12.0-16.0) L 8.5 G/DL (12.0-16.0) L Hematocrit 23.1 % (37.0-47.0) L 26.4 % (37.0-47.0) L Mean Corpuscular Volume 93 FL (80-99) 93 FL (80-99) Mean Corpuscular Hemoglobin 31.1 PG (27.0-31.0) H 30.2 PG (27.0-31.0) Mean Corpuscular Hemoglobin Concent 33.5 G/DL (32.0-36.0) 32.3 G/DL (32.0-36.0) Red Cell Distribution Width 16.5 % (11.6-14.8) H 16.6 % (11.6-14.8) H Platelet Count 414 K/UL (150-450) 453 K/UL (150-450) H Mean Platelet Volume 6.0 FL (6.5-10.1) L 5.8 FL (6.5-10.1) L Neutrophils (%) (Auto) % (45.0-75.0) % (45.0-75.0) Lymphocytes (%) (Auto) % (20.0-45.0) % (20.0-45.0) Monocytes (%) (Auto) % (1.0-10.0) % (1.0-10.0) Eosinophils (%) (Auto) % (0.0-3.0) % (0.0-3.0) Basophils (%) (Auto) % (0.0-2.0) % (0.0-2.0) Differential Total Cells Counted 100 100 Neutrophils % (Manual) 82 % (45-75) H 88 % (45-75) H Lymphocytes % (Manual) 8 % (20-45) L 4 % (20-45) L Monocytes % (Manual) 7 % (1-10) 6 % (1-10) Eosinophils % (Manual) 2 % (0-3) 1 % (0-3) Basophils % (Manual) 1 % (0-2) 1 % (0-2) Band Neutrophils 0 % (0-8) 0 % (0-8) Platelet Estimate Adequate Increased H Platelet Morphology Normal Hypochromasia 3+ Anisocytosis 1+ 2+ Spherocytes 1+ Sodium Level 134 MMOL/L (136-145) L Potassium Level 3.0 MMOL/L (3.5-5.1) L Chloride Level 99 MMOL/L (98-107) Carbon Dioxide Level 23 MMOL/L (21-32) Anion Gap 12 mmol/L (5-15) Blood Urea Nitrogen 50 mg/dL (7-18) H Creatinine 1.9 MG/DL (0.55-1.30) H Estimat Glomerular Filtration Rate mL/min (>60) Glucose Level 108 MG/DL (74-106) H Calcium Level 8.5 MG/DL (8.5-10.1) Phosphorus Level 4.0 MG/DL (2.5-4.9) Total Bilirubin 0.4 MG/DL (0.2-1.0) Direct Bilirubin 0.1 MG/DL (0.0-0.3) Aspartate Amino Transf (AST/SGOT) 34 U/L (15-37) Alanine Aminotransferase (ALT/SGPT) 20 U/L (12-78) Alkaline Phosphatase 116 U/L (46-116) Total Protein 5.8 G/DL (6.4-8.2) L Albumin 1.2 G/DL (3.4-5.0) L Random Vancomycin Level 21.2 ug/mL Plan Problems: (1) Septic shock Assessment & Plan: infected central line removed line free plan for PICC soon (2) Decubital ulcer Assessment & Plan: Pt presents with full thickness pressure injury sacrum with deep undermining into L buttocks .Historical arched surgical scar Upper L buttocks.Wound measures(L)3.4cm x (W)3cm x (D)1.5cm ,undermining 12-6 by 12 cm @ 8o'clock. Scattered Biofilm at base of sacrum with40% yellow slough along borders of wound .minimal non-odorous serous exudate.Non-blanchable erythema with additional scattered partial wounds periwound to R and L buttocks Unstageable pressure injury R ischium with 95% slough, 5% erythema along margins.Non-blanchable erythema periwound (L)2cm x (W)0.4cm. Stable dry eschar lateral/posterior R tibia.Periwound is clean and pink.(L)3cmx (W)2cm. Stable dry eschar R heel (L)2cm x (W)1.7cm .Periwound blanchable . Pressure injury with 100% eschar ,loose around edges ,padmaja pink borders .No odor or exudate noted.(L)1.7cm x (W)2cm. L forearm edematous and weeping serous exudate. Scattered senile purpuras bilat upper and bilat lower ext. Skin assessed under trach collar and no evidence of skin breakdown noted. Wound medial /distal R tibia with 100% stable dry eschar (L)2cm x (W)1.6cm. Periwound is pink and dry. Tx.Plan: Cleanse sacral wound with Saline.Loosely pack with Silvasorb impregnated 1/2 inch packing strip .Apply Moisture Barrier paste periwound .Cover with Optifoam drsg Daily and prn. Apply Cavilon Skin Barrier to R ischial wound .Cover with Optifoam drsg .Change every 3 days and prn. Apply Cavilon Skin Barrier to wound medial R tibia.Cover with Optifoam drsg every 7 days and prn. Apply Cavilon Skin Barrier to R heel .Cover with Optifoam drsg. Change every 7 days and prn. Apply Cavilon Skin Barrier to Medial L heel.Cover with Optifoam drsg .Change every 7 days and prn. APM /LATASHA mattress overlay. Reposition at least every 2 hours or as tolerated. Off-load heels with pillow. (3) Severe malnutrition Assessment & Plan: nutrition consult needs optimal nutrition in septic state for recovery and wound healing Reji Nails Oct 03, 2018 12:46
--- NOTE | 2018-10-03 13:30 | NUR ---
NURSE NOTES: Blood transfusion started with dialysis.No s/s adverse reaction noted.Will continue to monitor.
--- NOTE | 2018-10-03 13:40 | General Progress Note ---
Assessment/Plan Problem List: (1) MDD (major depressive disorder), recurrent episode ICD Codes: F33.9 - Major depressive disorder, recurrent, unspecified SNOMED: 555642640 (2) Dementia with behavioral disturbance ICD Codes: F03.91 - Unspecified dementia with behavioral disturbance SNOMED: 7654845657193 (3) Encephalopathy chronic ICD Codes: G93.49 - Other encephalopathy SNOMED: 69800334 Assessment/Plan lexapro 10mg po qam haldol cont restraints xanax .5 q 6hr /prn Subjective Neurologic/Psychiatric: Reports: anxiety, depressed, emotional problems Allergies: Coded Allergies: No Known Allergies (Unverified , 07/25/18) Subjective waxing and waning of consciousness Objective Last 24 Hour Vital Signs Date Time Temp Pulse Resp B/P (MAP) Pulse Ox O2 Delivery O2 Flow Rate FiO2 10/03/18 12:00 40 10/03/18 12:00 98.2 73 13 122/67 (85) 100 10/03/18 12:00 Mechanical Ventilator 10/03/18 11:00 107 15 122/67 (85) 100 10/03/18 10:00 108 15 119/50 (73) 100 10/03/18 09:00 68 15 128/50 (76) 100 10/03/18 08:33 66 15 40 10/03/18 08:00 74 10/03/18 08:00 Mechanical Ventilator 10/03/18 08:00 40 10/03/18 08:00 97.8 69 15 121/48 (72) 100 10/03/18 08:00 69 10/03/18 07:11 112 15 40 10/03/18 07:00 100 15 123/63 (83) 100 10/03/18 06:00 74 15 128/53 (78) 100 10/03/18 05:01 70 15 40 10/03/18 05:00 72 15 124/49 (74) 100 10/03/18 04:00 Mechanical Ventilator 10/03/18 04:00 40 10/03/18 04:00 66 10/03/18 04:00 98.0 68 15 124/50 (74) 100 10/03/18 03:30 68 11 40 10/03/18 03:00 67 14 121/47 (71) 100 10/03/18 02:00 67 16 120/47 (71) 100 10/03/18 01:27 67 13 40 10/03/18 01:00 69 16 120/47 (71) 100 10/03/18 00:00 98.2 69 16 125/55 (78) 100 10/03/18 00:00 Mechanical Ventilator 10/03/18 00:00 67 10/03/18 00:00 40 10/02/18 23:00 69 15 120/46 (70) 100 10/02/18 22:00 69 15 113/49 (70) 100 10/02/18 21:15 72 16 40 10/02/18 21:00 70 16 115/43 (67) 100 10/02/18 20:57 123/43 10/02/18 20:00 Mechanical Ventilator 10/02/18 20:00 40 10/02/18 20:00 69 10/02/18 20:00 98.0 70 16 115/43 (67) 100 10/02/18 19:42 71 17 40 10/02/18 19:00 76 14 110/47 (68) 100 10/02/18 18:00 66 14 112/41 (64) 100 10/02/18 17:00 67 14 118/42 (67) 100 10/02/18 16:51 75 16 40 10/02/18 16:00 40 10/02/18 16:00 Mechanical Ventilator 10/02/18 16:00 98.6 72 16 121/48 (72) 100 10/02/18 16:00 72 10/02/18 15:26 72 13 40 10/02/18 15:00 71 16 119/54 (75) 100 10/02/18 14:00 74 14 120/54 (76) 100 Intake and Output 10/02/18 10/03/18 18:59 06:59 Intake Total 1553.75 ml 990 ml Output Total 0 ml 0 ml Balance 1553.75 ml 990 ml Free Water 60 ml IV Total 1133.75 ml 510 ml Tube Feeding 420 ml 420 ml Output Urine Total 0 ml 0 ml # Bowel Movements 1 2 Laboratory Tests 10/02/18 17:25: Vancomycin Level Trough 22.7H 10/03/18 04:20: White Blood Count 12.0H, Red Blood Count 2.49L, Hemoglobin 7.7L, Hematocrit 23.1L, Mean Corpuscular Volume 93, Mean Corpuscular Hemoglobin 31.1H, Mean Corpuscular Hemoglobin Concent 33.5, Red Cell Distribution Width 16.5H, Platelet Count 414, Mean Platelet Volume 6.0L, Neutrophils (%) (Auto) , Lymphocytes (%) (Auto) , Monocytes (%) (Auto) , Eosinophils (%) (Auto) , Basophils (%) (Auto) , Differential Total Cells Counted 100, Neutrophils % ( Manual) 82H, Lymphocytes % (Manual) 8L, Monocytes % (Manual) 7, Eosinophils % ( Manual) 2, Basophils % (Manual) 1, Band Neutrophils 0, Platelet Estimate Adequate, Platelet Morphology Normal, Hypochromasia 3+, Anisocytosis 1+, Spherocytes 1+, Sodium Level 134L, Potassium Level 3.0L, Chloride Level 99, Carbon Dioxide Level 23, Anion Gap 12, Blood Urea Nitrogen 50H, Creatinine 1.9H , Estimat Glomerular Filtration Rate , Glucose Level 108H, Calcium Level 8.5, Phosphorus Level 4.0, Total Bilirubin 0.4, Direct Bilirubin 0.1, Aspartate Amino Transf (AST/SGOT) 34, Alanine Aminotransferase (ALT/SGPT) 20, Alkaline Phosphatase 116, Total Protein 5.8L, Albumin 1.2L, Random Vancomycin Level 21.2 10/03/18 10:30: White Blood Count 12.8H, Red Blood Count 2.83L, Hemoglobin 8.5L, Hematocrit 26.4L, Mean Corpuscular Volume 93, Mean Corpuscular Hemoglobin 30.2, Mean Corpuscular Hemoglobin Concent 32.3, Red Cell Distribution Width 16.6H, Platelet Count 453H, Mean Platelet Volume 5.8L, Neutrophils (%) (Auto) , Lymphocytes (%) (Auto) , Monocytes (%) (Auto) , Eosinophils (%) (Auto) , Basophils (%) (Auto) , Differential Total Cells Counted 100, Neutrophils % ( Manual) 88H, Lymphocytes % (Manual) 4L, Monocytes % (Manual) 6, Eosinophils % ( Manual) 1, Basophils % (Manual) 1, Band Neutrophils 0, Platelet Estimate IncreasedH, Platelet Morphology , Anisocytosis 2+ Height (Feet): 5 Height (Inches): 3.00 Weight (Pounds): 151 General Appearance: alert, agitated Neurologic: alert, responsive, depressed affect Sophia Castaneda MD Oct 03, 2018 13:40
[2018-10-03] MEDS ORDERED: ALPRAZolam 0.5mg tab ORAL PRN (13:45)
--- NOTE | 2018-10-03 14:02 | NUR ---
NURSE NOTES: Patient turned and repositioned. Kept clean and dry. HOB elevated to prevent aspiration.Will continue to monitor.
--- NOTE | 2018-10-03 15:00 | NUR ---
NURSE NOTES: Dialysis done and 1L out and 1 unit PRBC given during dialysis with 4K as ordered. Will continue to monitor.
--- NOTE | 2018-10-03 16:12 | Nephrology Progress Note ---
Assessment/Plan Plan Urosepsis (GNR) IV Abx per ID. Worsening anemia 2 above -transfuse on HD. ESRD HD MWF Chr. A. Fib - apixaban. DC'ed due to wound bleeding. HD done. Transfused. Subjective Subjective Less confused. More alert. Per RN depressed. Objective Objective Last 24 Hour Vital Signs Date Time Temp Pulse Resp B/P (MAP) Pulse Ox O2 Delivery O2 Flow Rate FiO2 10/03/18 15:15 68 15 40 10/03/18 15:00 70 15 127/53 (77) 100 10/03/18 14:00 69 15 135/55 (81) 100 10/03/18 13:15 73 16 40 10/03/18 13:00 71 15 121/50 (73) 100 10/03/18 12:00 71 10/03/18 12:00 40 10/03/18 12:00 98.2 73 13 122/67 (85) 100 10/03/18 12:00 Mechanical Ventilator 10/03/18 11:10 108 19 40 10/03/18 11:00 107 15 122/67 (85) 100 10/03/18 10:00 108 15 119/50 (73) 100 10/03/18 09:00 68 15 128/50 (76) 100 10/03/18 08:33 66 15 40 10/03/18 08:00 74 10/03/18 08:00 Mechanical Ventilator 10/03/18 08:00 40 10/03/18 08:00 97.8 69 15 121/48 (72) 100 10/03/18 08:00 69 10/03/18 07:11 112 15 40 10/03/18 07:00 100 15 123/63 (83) 100 10/03/18 06:00 74 15 128/53 (78) 100 10/03/18 05:01 70 15 40 10/03/18 05:00 72 15 124/49 (74) 100 10/03/18 04:00 Mechanical Ventilator 10/03/18 04:00 40 10/03/18 04:00 66 10/03/18 04:00 98.0 68 15 124/50 (74) 100 10/03/18 03:30 68 11 40 10/03/18 03:00 67 14 121/47 (71) 100 10/03/18 02:00 67 16 120/47 (71) 100 10/03/18 01:27 67 13 40 10/03/18 01:00 69 16 120/47 (71) 100 10/03/18 00:00 98.2 69 16 125/55 (78) 100 10/03/18 00:00 Mechanical Ventilator 10/03/18 00:00 67 10/03/18 00:00 40 10/02/18 23:00 69 15 120/46 (70) 100 10/02/18 22:00 69 15 113/49 (70) 100 10/02/18 21:15 72 16 40 10/02/18 21:00 70 16 115/43 (67) 100 10/02/18 20:57 123/43 10/02/18 20:00 Mechanical Ventilator 10/02/18 20:00 40 10/02/18 20:00 69 10/02/18 20:00 98.0 70 16 115/43 (67) 100 10/02/18 19:42 71 17 40 10/02/18 19:00 76 14 110/47 (68) 100 10/02/18 18:00 66 14 112/41 (64) 100 10/02/18 17:00 67 14 118/42 (67) 100 10/02/18 16:51 75 16 40 Intake and Output 10/02/18 10/03/18 18:59 06:59 Intake Total 1553.75 ml 990 ml Output Total 0 ml 0 ml Balance 1553.75 ml 990 ml Free Water 60 ml IV Total 1133.75 ml 510 ml Tube Feeding 420 ml 420 ml Output Urine Total 0 ml 0 ml # Bowel Movements 1 2 Laboratory Tests 10/02/18 17:25: Vancomycin Level Trough 22.7H 10/03/18 04:20: White Blood Count 12.0H, Red Blood Count 2.49L, Hemoglobin 7.7L, Hematocrit 23.1L, Mean Corpuscular Volume 93, Mean Corpuscular Hemoglobin 31.1H, Mean Corpuscular Hemoglobin Concent 33.5, Red Cell Distribution Width 16.5H, Platelet Count 414, Mean Platelet Volume 6.0L, Neutrophils (%) (Auto) , Lymphocytes (%) (Auto) , Monocytes (%) (Auto) , Eosinophils (%) (Auto) , Basophils (%) (Auto) , Differential Total Cells Counted 100, Neutrophils % ( Manual) 82H, Lymphocytes % (Manual) 8L, Monocytes % (Manual) 7, Eosinophils % ( Manual) 2, Basophils % (Manual) 1, Band Neutrophils 0, Platelet Estimate Adequate, Platelet Morphology Normal, Hypochromasia 3+, Anisocytosis 1+, Spherocytes 1+, Sodium Level 134L, Potassium Level 3.0L, Chloride Level 99, Carbon Dioxide Level 23, Anion Gap 12, Blood Urea Nitrogen 50H, Creatinine 1.9H , Estimat Glomerular Filtration Rate , Glucose Level 108H, Calcium Level 8.5, Phosphorus Level 4.0, Total Bilirubin 0.4, Direct Bilirubin 0.1, Aspartate Amino Transf (AST/SGOT) 34, Alanine Aminotransferase (ALT/SGPT) 20, Alkaline Phosphatase 116, Total Protein 5.8L, Albumin 1.2L, Random Vancomycin Level 21.2 10/03/18 10:30: White Blood Count 12.8H, Red Blood Count 2.83L, Hemoglobin 8.5L, Hematocrit 26.4L, Mean Corpuscular Volume 93, Mean Corpuscular Hemoglobin 30.2, Mean Corpuscular Hemoglobin Concent 32.3, Red Cell Distribution Width 16.6H, Platelet Count 453H, Mean Platelet Volume 5.8L, Neutrophils (%) (Auto) , Lymphocytes (%) (Auto) , Monocytes (%) (Auto) , Eosinophils (%) (Auto) , Basophils (%) (Auto) , Differential Total Cells Counted 100, Neutrophils % ( Manual) 88H, Lymphocytes % (Manual) 4L, Monocytes % (Manual) 6, Eosinophils % ( Manual) 1, Basophils % (Manual) 1, Band Neutrophils 0, Platelet Estimate IncreasedH, Platelet Morphology , Anisocytosis 2+ Height (Feet): 5 Height (Inches): 3.00 Weight (Pounds): 151 Objective On Vent. Cv IRR +tach Lungs CTA Abd SNT. BS + E No CCE Chase He MD Oct 03, 2018 16:12
--- NOTE | 2018-10-03 16:24 | NUR ---
NURSE NOTES: Adls done,mouth care done.kept clean and dry.HOB elevated to prevent aspiration.Kept on close monitoring.
[2018-10-03] MEDS ORDERED: 1/2 NS 1000ml IV ONE (16:28)
[2018-10-03] MEDS ORDERED: Tubing IV Secondary IV ONE (16:28)
[2018-10-03] MEDS: Meropenem 500mg in NS 55ml IVPB SCH (17:03)
--- NOTE | 2018-10-03 17:07 | NUR ---
RESPIRATORY NOTE: PT. STABLE ON CURRENT CMV SETTINGS AND ALL VS ARE WNL. VENT CIRCUIT AND SX TUBBING SECURE AND OUT OF THE WAY. PT SX PRN WITH NO ADVERSE REACTION. NO S/S OF RESPIRATORY DISTRESS NOTED AT THIS TIME.
--- NOTE | 2018-10-03 17:24 | NUR ---
NURSE NOTES: Son at the bedside and update done on patient condition. Kept on close monitoring
--- NOTE | 2018-10-03 18:04 | NUR ---
NURSE NOTES: Adls done,kept clean and dry.HOB elevated to prevent aspiration.Kept clean and dry
--- NOTE | 2018-10-03 19:22 | NUR ---
HAND-OFF: Report given to BALDO Fuentes.
--- NOTE | 2018-10-03 19:25 | NUR ---
RESPIRATORY NOTE: Received pt. on 840 vent. Vent settings are: A/C rate of 8, Vt 450, FI02 40%, PEEP +-5. No respiratory distress noted, Sp02 @ 100%. Ambu bag @ BS. Vent plugged on red outlet. Will continue to monitor pt.
--- NOTE | 2018-10-03 19:40 | NUR ---
NURSE NOTES: Received Pt is resting on the bed and awake and confused. Trach to Vent dependent setting with AC : 8, T: 450, P: 5, FiO2 40% with SaO2 100% noted. Given tracheal and oral suction. provide oral care. On Tele monitor with SR. IV site intact and no sign of infiltration noted. Lt. upper arm AV shunt present of bruit and thrills. On Bilateral wrist restraint. Trying to release restraint when during care Pt still trying to touch Vent and Iv line. Given verbal cueing but doesn't understand. Checked comfort and circulation. On G-tubed feeding as ordered and tolerated well. No residual noted. Dressing is clean and dry on wound area. Changed position. Placed fall precaution. Will continue to care plan.
[2018-10-03] MEDS: Epoetin Alfa(ESRD on dialysis)10,000 unit/ml vial SUBQ SCH (20:54)
[2018-10-03] MEDS ORDERED: Epoetin Alfa(ESRD on dialysis)10,000 unit/ml vial SUBQ ONE (21:00)
--- NOTE | 2018-10-03 22:00 | NUR ---
NURSE NOTES: Pt is resting on the bed and tolerated well with current Vent setting. V/S stable. On running with G-tube feeding as ordered and no residual noted. Changed position. Will continue to care of plan.
[2018-10-04] VITALS (23 sets, daily range): BP systolic 113–157; BP diastolic 43–88
--- NOTE | 2018-10-04 | NUR ---
NURSE NOTES: Given mouth care. Turn and repositioning. No sign of acute distress noted. Tolerated well with current Vent setting. Will continue to monitor.
[2018-10-04] MEDS: Meropenem 500mg in NS 55ml IVPB SCH ×2 (01:10→12:09)
--- NOTE | 2018-10-04 02:00 | NUR ---
NURSE NOTES: Pt is sleeping on the bed and no sign of acute distress noted. Tolerated well with G-tube feeding. SaO2 100% with current Vent setting. Provided good sleep environment. Will continue to care plan.
--- NOTE | 2018-10-04 04:00 | NUR ---
NURSE NOTES: Given morning care. Noted large amount soft BM. Cleaned Pt and applied lotion and cream. Changed wounds dressing. Provided oral care. Changed potion. Still noted swelling on Both arm. Elevated both arm. Placed fall precaution. Will continue to care plan.
[2018-10-04 05:39] LABS: HEMATOCRIT 28.6 % (37.0-47.0); HEMOGLOBIN 9.4 G/DL (12.0-16.0); MEAN CORPUSCULAR VOLUME 92 FL (80-99); PLATELET COUNT 413 K/UL (150-450); RED CELL DISTRIBUTION WIDTH 16.7 % (11.6-14.8); WHITE BLOOD COUNT 12.6 K/UL (4.8-10.8)
--- NOTE | 2018-10-04 06:00 | NUR ---
NURSE NOTES: Trying to release Bilateral wrist soft restraint during care but Pt still trying to touch medical sales; Vent and IV. Checked circulation and comfort. Will continue to close monitor.
[2018-10-04 06:22] LABS: ANION GAP 10 mmol/L (5-15); BLOOD UREA NITROGEN 36 mg/dL (7-18); CALCIUM 8.6 MG/DL (8.5-10.1); CARBON DIOXIDE 26 MMOL/L (21-32); CHLORIDE 98 MMOL/L (98-107); CREATININE 1.4 MG/DL (0.55-1.30); POTASSIUM 3.7 MMOL/L (3.5-5.1); SODIUM 133 MMOL/L (136-145)
--- NOTE | 2018-10-04 07:29 | NUR ---
HAND-OFF: Report given to BALDO Locke. Pt is resting on the bed and awake and confused. SaO2 100% with current Vent setting. No sign of acute distress noted.
--- NOTE | 2018-10-04 08:00 | NUR ---
NURSE NOTES: Received Pt is resting on the bed and awake and confused. Trach to Vent dependent setting with AC : 8, T: 450, P: 5, FiO2 40% with SaO2 40%. Lung sounds diminished bilaterally. provided oral care. On youth nutritional monitor with SR. IV site intact and no sign of infiltration noted. Lt. upper arm AV shunt present of bruit and thrills. On Bilateral wrist restraint. Trying to release restraint when during care Pt still trying to touch Vent and Iv line. Given verbal cueing but doesn't demonstrate understanding. Checked comfort and circulation. On G-tubed feeding as ordered and tolerated well. No residual noted. Hypoactive bowel sounds present on all 4 quadrants. Dressing is clean and dry intact on wound area. Changed position. HOB elevated, call light within reach, bed on lowest position, bed alarm on for safety. Will continue to care plan.
--- NOTE | 2018-10-04 08:30 | Pulmonology Progress Note ---
Assessment/Plan Assessment/Plan 1. Shock, septic. 2. UTI. 3. ESRD, on dialysis. 4. Ventilator dependent respiratory failure. 5. Tracheostomy. 6. Diabetes mellitus. 7. Chronic atrial fibrillation. 8. Bacteremia. DISCUSSION: Continue broad-spectrum antibiotics. I will continue AC mode. Continue to decrease FiO2 as tolerated. Blood transfusion as required. Hemodialysis per renal. Andres Allan M.D. Subjective Interval Events: None new Constitutional: Reports: no symptoms HEENT: Repors: no symptoms Respiratory: Reports: no symptoms Cardiovascular: Reports: no symptoms Gastrointestinal/Abdominal: Reports: no symptoms Genitourinary: Reports: no symptoms Neurologic: Reports: no symptoms Allergies: Coded Allergies: No Known Allergies (Unverified , 07/25/18) Objective Last 24 Hour Vital Signs Date Time Temp Pulse Resp B/P (MAP) Pulse Ox O2 Delivery O2 Flow Rate FiO2 10/04/18 08:00 40 10/04/18 08:00 Mechanical Ventilator 10/04/18 08:00 98.6 118 14 150/88 (108) 100 10/04/18 07:14 133 18 40 10/04/18 07:00 115 17 145/87 (106) 100 10/04/18 06:00 84 17 133/65 (87) 100 10/04/18 05:30 66 13 40 10/04/18 05:00 72 14 130/56 (80) 100 10/04/18 04:00 98.5 73 17 133/56 (81) 100 10/04/18 04:00 Mechanical Ventilator 10/04/18 04:00 107 10/04/18 04:00 40 10/04/18 03:30 67 12 40 10/04/18 03:00 108 14 113/68 (83) 100 10/04/18 02:00 80 15 120/68 (85) 100 10/04/18 01:00 67 12 114/43 (66) 100 10/04/18 00:59 66 13 40 10/04/18 00:00 40 10/04/18 00:00 109 10/04/18 00:00 98.3 107 13 135/53 (80) 100 10/04/18 00:00 Mechanical Ventilator 10/03/18 23:00 84 15 140/68 (92) 100 10/03/18 22:59 97 16 40 10/03/18 22:00 70 12 134/51 (78) 100 10/03/18 21:15 121/46 10/03/18 21:00 63 12 121/46 (71) 100 10/03/18 20:35 70 15 40 10/03/18 20:00 40 10/03/18 20:00 72 10/03/18 20:00 98.1 70 14 133/52 (79) 100 10/03/18 20:00 Mechanical Ventilator 10/03/18 19:24 69 12 40 10/03/18 18:57 71 15 133/50 (77) 100 10/03/18 18:00 69 14 130/51 (77) 100 10/03/18 17:07 63 12 40 10/03/18 17:00 64 15 117/46 (69) 100 10/03/18 16:00 98.0 67 14 125/47 (73) 100 10/03/18 16:00 40 10/03/18 16:00 Mechanical Ventilator 10/03/18 16:00 65 10/03/18 15:15 68 15 40 10/03/18 15:00 70 15 127/53 (77) 100 10/03/18 14:00 69 15 135/55 (81) 100 10/03/18 13:15 73 16 40 10/03/18 13:00 71 15 121/50 (73) 100 10/03/18 12:00 71 10/03/18 12:00 40 10/03/18 12:00 98.2 73 13 122/67 (85) 100 10/03/18 12:00 Mechanical Ventilator 10/03/18 11:10 108 19 40 10/03/18 11:00 107 15 122/67 (85) 100 10/03/18 10:00 108 15 119/50 (73) 100 10/03/18 09:00 68 15 128/50 (76) 100 10/03/18 08:33 66 15 40 Intake and Output 10/03/18 10/04/18 19:00 07:00 Intake Total 2287 ml 1015 ml Output Total 0 ml 0 ml Balance 2287 ml 1015 ml IV Total 617 ml 595 ml Tube Feeding 420 ml 420 ml Blood Product 250 ml Hemodialysis 1000 ml Output Urine Total 0 ml 0 ml # Bowel Movements 1 2 General Appearance: no acute distress HEENT: normocephalic, status post trach Respiratory/Chest: chest wall non-tender, lungs clear Cardiovascular: normal peripheral pulses, normal rate Abdomen: normal bowel sounds, soft, non tender Microbiology Date/Time Source Procedure Growth Status 10/01/18 14:00 Sputum Gram Stain - Final Resulted 10/01/18 14:00 Sputum Culture - Preliminary Gram Negative Bacillus 1 Gram Negative Bacillus 2 Resulted Laboratory Tests 10/03/18 10:30: White Blood Count 12.8H, Red Blood Count 2.83L, Hemoglobin 8.5L, Hematocrit 26.4L, Mean Corpuscular Volume 93, Mean Corpuscular Hemoglobin 30.2, Mean Corpuscular Hemoglobin Concent 32.3, Red Cell Distribution Width 16.6H, Platelet Count 453H, Mean Platelet Volume 5.8L, Neutrophils (%) (Auto) , Lymphocytes (%) (Auto) , Monocytes (%) (Auto) , Eosinophils (%) (Auto) , Basophils (%) (Auto) , Differential Total Cells Counted 100, Neutrophils % ( Manual) 88H, Lymphocytes % (Manual) 4L, Monocytes % (Manual) 6, Eosinophils % ( Manual) 1, Basophils % (Manual) 1, Band Neutrophils 0, Platelet Estimate IncreasedH, Platelet Morphology , Anisocytosis 2+ 10/04/18 04:45: White Blood Count 12.6H, Red Blood Count 3.10L, Hemoglobin 9.4L, Hematocrit 28.6L, Mean Corpuscular Volume 92, Mean Corpuscular Hemoglobin 30.4, Mean Corpuscular Hemoglobin Concent 33.0, Red Cell Distribution Width 16.7H, Platelet Count 413, Mean Platelet Volume 6.0L, Neutrophils (%) (Auto) , Lymphocytes (%) (Auto) , Monocytes (%) (Auto) , Eosinophils (%) (Auto) , Basophils (%) (Auto) , Sodium Level 133L, Potassium Level 3.7, Chloride Level 98 , Carbon Dioxide Level 26, Anion Gap 10, Blood Urea Nitrogen 36H, Creatinine 1.4H, Estimat Glomerular Filtration Rate , Glucose Level 99, Calcium Level 8.6 Current Medications Medications (Trade) Dose Ordered Sig/Renetta Route PRN Reason Start Time Stop Time Status Last Admin Dose Admin Acetaminophen (Tylenol) 650 mg Q4H PRN RECTAL Mild Pain (Pain Scale 1-3) 09/29/18 19:15 10/29/18 19:14 09/30/18 00:27 Albuterol/ Ipratropium (Albuterol/ Ipratropium) 3 ml Q6H PRN HHN Shortness of Breath 09/29/18 19:15 10/04/18 19:14 Alprazolam (Xanax) 0.5 mg TIDPRN PRN ORAL agitation 10/03/18 13:45 10/10/18 13:44 Dextrose (Dextrose 50%) 25 ml Q30M PRN IV Hypoglycemia 09/29/18 19:30 10/29/18 19:29 Dextrose (Dextrose 50%) 50 ml Q30M PRN IV Hypoglycemia 09/29/18 19:30 10/29/18 19:29 Epoetin Paul (Epoetin Paul(ESRD on dialysis)) 10,000 unit WED-WED-WED SUBQ 09/30/18 21:00 10/30/18 20:59 10/03/18 20:54 Escitalopram Oxalate (Lexapro) 10 mg DAILY ORAL 10/01/18 11:00 10/31/18 10:59 10/03/18 08:33 Haloperidol (Haldol) 5 mg BID ORAL 10/01/18 18:00 10/31/18 17:59 10/03/18 17:03 Iron Sucrose 100 mg/Sodium Chloride 60 ml @ 240 mls/hr BEDTIME IV 10/04/18 21:00 10/06/18 21:14 Meropenem 500 mg/ Sodium Chloride 55 ml @ 110 mls/hr Q12H IVPB 10/03/18 13:00 10/08/18 12:59 10/04/18 01:10 Norepinephrine Bitartrate 8 mg/ Sodium Chloride 250 ml @ 0 mls/hr Q24H IV 09/29/18 21:15 10/29/18 21:14 09/29/18 22:36 Ondansetron HCl (Zofran) 4 mg Q6H PRN IVP Nausea & Vomiting 09/29/18 19:15 10/29/18 19:14 Pantoprazole (Protonix) 40 mg DAILY IV 09/30/18 09:00 10/30/18 08:59 10/03/18 08:33 Sodium Chloride 1,000 ml @ 50 mls/hr Q20H IV 09/29/18 20:00 10/29/18 19:59 10/04/18 06:08 Sodium Chloride 1,000 ml @ 500 mls/hr Q2H PRN IVLG sbp<90 during hd 10/03/18 10:17 11/02/18 10:16 Vancomycin HCl (Vanco rx to dose) 1 ea DAILY PRN MISC Per rx protocol 09/29/18 22:15 10/29/18 22:14 Andres Allan MD Oct 04, 2018 08:30
[2018-10-04] MEDS: Pantoprazole Inj IV SCH (09:00)
--- NOTE | 2018-10-04 10:00 | NUR ---
NURSE NOTES: Turned and repositioned. Patient able to make needs known. No distress noted. Will continue plan of care.
--- NOTE | 2018-10-04 10:16 | Infectious Diseases Prog Note ---
Assessment/Plan Assessment/Plan antibiotics : vancomycin iv, meropenem A 1. MRSA sepsis s/p catheter removal 2. e.coli UTI 3. shock resolved 4. gram negative pneumonia 5. respiratory failure 6. sacral decubitus ulcer 7. leucocytosis improving 8. renal failure improving P 1. continue vancomycin iv 2. continue meropenem 3. 2 d echo pending 4. will follow up cultures Subjective ROS Limited/Unobtainable: Yes Allergies: Coded Allergies: No Known Allergies (Unverified , 07/25/18) Objective Vital Signs Last 24 Hour Vital Signs Date Time Temp Pulse Resp B/P (MAP) Pulse Ox O2 Delivery O2 Flow Rate FiO2 10/04/18 09:20 86 14 40 10/04/18 08:00 40 10/04/18 08:00 Mechanical Ventilator 10/04/18 08:00 98.6 118 14 150/88 (108) 100 10/04/18 07:14 133 18 40 10/04/18 07:00 115 17 145/87 (106) 100 10/04/18 06:00 84 17 133/65 (87) 100 10/04/18 05:30 66 13 40 10/04/18 05:00 72 14 130/56 (80) 100 10/04/18 04:00 98.5 73 17 133/56 (81) 100 10/04/18 04:00 Mechanical Ventilator 10/04/18 04:00 107 10/04/18 04:00 40 10/04/18 03:30 67 12 40 10/04/18 03:00 108 14 113/68 (83) 100 10/04/18 02:00 80 15 120/68 (85) 100 10/04/18 01:00 67 12 114/43 (66) 100 10/04/18 00:59 66 13 40 10/04/18 00:00 40 10/04/18 00:00 109 10/04/18 00:00 98.3 107 13 135/53 (80) 100 10/04/18 00:00 Mechanical Ventilator 10/03/18 23:00 84 15 140/68 (92) 100 10/03/18 22:59 97 16 40 10/03/18 22:00 70 12 134/51 (78) 100 10/03/18 21:15 121/46 10/03/18 21:00 63 12 121/46 (71) 100 10/03/18 20:35 70 15 40 10/03/18 20:00 40 10/03/18 20:00 72 10/03/18 20:00 98.1 70 14 133/52 (79) 100 10/03/18 20:00 Mechanical Ventilator 10/03/18 19:24 69 12 40 10/03/18 18:57 71 15 133/50 (77) 100 10/03/18 18:00 69 14 130/51 (77) 100 10/03/18 17:07 63 12 40 10/03/18 17:00 64 15 117/46 (69) 100 10/03/18 16:00 98.0 67 14 125/47 (73) 100 10/03/18 16:00 40 10/03/18 16:00 Mechanical Ventilator 10/03/18 16:00 65 10/03/18 15:15 68 15 40 10/03/18 15:00 70 15 127/53 (77) 100 10/03/18 14:00 69 15 135/55 (81) 100 10/03/18 13:15 73 16 40 10/03/18 13:00 71 15 121/50 (73) 100 10/03/18 12:00 71 10/03/18 12:00 40 10/03/18 12:00 98.2 73 13 122/67 (85) 100 10/03/18 12:00 Mechanical Ventilator 10/03/18 11:10 108 19 40 10/03/18 11:00 107 15 122/67 (85) 100 Height (Feet): 5 Height (Inches): 3.00 Weight (Pounds): 155 HEENT: status post trach Respiratory/Chest: lungs clear Cardiovascular: normal rate, regular rhythm, no gallop/murmur Abdomen: soft, non tender, other - GT Extremities: no edema Microbiology Date/Time Source Procedure Growth Status 10/01/18 14:00 Sputum Gram Stain - Final Resulted 10/01/18 14:00 Sputum Culture - Preliminary Gram Negative Bacillus 1 Gram Negative Bacillus 2 Resulted Laboratory Tests Test 10/03/18 10:30 10/04/18 04:45 White Blood Count 12.8 K/UL (4.8-10.8) H 12.6 K/UL (4.8-10.8) H Red Blood Count 2.83 M/UL (4.20-5.40) L 3.10 M/UL (4.20-5.40) L Hemoglobin 8.5 G/DL (12.0-16.0) L 9.4 G/DL (12.0-16.0) L Hematocrit 26.4 % (37.0-47.0) L 28.6 % (37.0-47.0) L Mean Corpuscular Volume 93 FL (80-99) 92 FL (80-99) Mean Corpuscular Hemoglobin 30.2 PG (27.0-31.0) 30.4 PG (27.0-31.0) Mean Corpuscular Hemoglobin Concent 32.3 G/DL (32.0-36.0) 33.0 G/DL (32.0-36.0) Red Cell Distribution Width 16.6 % (11.6-14.8) H 16.7 % (11.6-14.8) H Platelet Count 453 K/UL (150-450) H 413 K/UL (150-450) Mean Platelet Volume 5.8 FL (6.5-10.1) L 6.0 FL (6.5-10.1) L Neutrophils (%) (Auto) % (45.0-75.0) % (45.0-75.0) Lymphocytes (%) (Auto) % (20.0-45.0) % (20.0-45.0) Monocytes (%) (Auto) % (1.0-10.0) % (1.0-10.0) Eosinophils (%) (Auto) % (0.0-3.0) % (0.0-3.0) Basophils (%) (Auto) % (0.0-2.0) % (0.0-2.0) Differential Total Cells Counted 100 Neutrophils % (Manual) 88 % (45-75) H Lymphocytes % (Manual) 4 % (20-45) L Monocytes % (Manual) 6 % (1-10) Eosinophils % (Manual) 1 % (0-3) Basophils % (Manual) 1 % (0-2) Band Neutrophils 0 % (0-8) Platelet Estimate Increased H Platelet Morphology Anisocytosis 2+ Sodium Level 133 MMOL/L (136-145) L Potassium Level 3.7 MMOL/L (3.5-5.1) Chloride Level 98 MMOL/L (98-107) Carbon Dioxide Level 26 MMOL/L (21-32) Anion Gap 10 mmol/L (5-15) Blood Urea Nitrogen 36 mg/dL (7-18) H Creatinine 1.4 MG/DL (0.55-1.30) H Estimat Glomerular Filtration Rate mL/min (>60) Glucose Level 99 MG/DL (74-106) Calcium Level 8.6 MG/DL (8.5-10.1) Current Medications Medications (Trade) Dose Ordered Sig/Renetta Route PRN Reason Start Time Stop Time Status Last Admin Dose Admin Acetaminophen (Tylenol) 650 mg Q4H PRN RECTAL Mild Pain (Pain Scale 1-3) 09/29/18 19:15 10/29/18 19:14 09/30/18 00:27 Albuterol/ Ipratropium (Albuterol/ Ipratropium) 3 ml Q6H PRN HHN Shortness of Breath 09/29/18 19:15 10/04/18 19:14 Alprazolam (Xanax) 0.5 mg TIDPRN PRN ORAL agitation 10/03/18 13:45 10/10/18 13:44 Dextrose (Dextrose 50%) 25 ml Q30M PRN IV Hypoglycemia 09/29/18 19:30 10/29/18 19:29 Dextrose (Dextrose 50%) 50 ml Q30M PRN IV Hypoglycemia 09/29/18 19:30 10/29/18 19:29 Epoetin Paul (Epoetin Paul(ESRD on dialysis)) 10,000 unit WED-WED-WED SUBQ 09/30/18 21:00 10/30/18 20:59 10/03/18 20:54 Escitalopram Oxalate (Lexapro) 10 mg DAILY ORAL 10/01/18 11:00 10/31/18 10:59 10/04/18 09:00 Haloperidol (Haldol) 5 mg BID ORAL 10/01/18 18:00 10/31/18 17:59 10/04/18 09:00 Iron Sucrose 100 mg/Sodium Chloride 60 ml @ 240 mls/hr BEDTIME IV 10/04/18 21:00 10/06/18 21:14 Meropenem 500 mg/ Sodium Chloride 55 ml @ 110 mls/hr Q12H IVPB 10/03/18 13:00 10/08/18 12:59 10/04/18 01:10 Norepinephrine Bitartrate 8 mg/ Sodium Chloride 250 ml @ 0 mls/hr Q24H IV 09/29/18 21:15 10/29/18 21:14 09/29/18 22:36 Ondansetron HCl (Zofran) 4 mg Q6H PRN IVP Nausea & Vomiting 09/29/18 19:15 10/29/18 19:14 Pantoprazole (Protonix) 40 mg DAILY IV 09/30/18 09:00 10/30/18 08:59 10/04/18 09:00 Sodium Chloride 1,000 ml @ 50 mls/hr Q20H IV 09/29/18 20:00 10/29/18 19:59 10/04/18 06:08 Sodium Chloride 1,000 ml @ 500 mls/hr Q2H PRN IVLG sbp<90 during hd 10/03/18 10:17 11/02/18 10:16 Vancomycin HCl (Vanco rx to dose) 1 ea DAILY PRN MISC Per rx protocol 09/29/18 22:15 10/29/18 22:14 Omid Morfin MD Oct 04, 2018 10:16
[2018-10-04] MEDS ORDERED: Tubing Blood Filter IV ONE (10:28)
[2018-10-04] MEDS ORDERED: Tubing IV Secondary IV ONE (10:28)
[2018-10-04] MEDS ORDERED: 1/2 NS 1000ml IV ONE (10:28)
--- NOTE | 2018-10-04 12:12 | NUR ---
NURSE NOTES: Patient comfortable, turned and repositioned. Watching television, No distress noted. VSS at this time. No new orders. Will continue to monitor patient.
--- NOTE | 2018-10-04 12:13 | General Progress Note ---
Assessment/Plan Problem List: (1) MDD (major depressive disorder), recurrent episode ICD Codes: F33.9 - Major depressive disorder, recurrent, unspecified SNOMED: 070698631 (2) Dementia with behavioral disturbance ICD Codes: F03.91 - Unspecified dementia with behavioral disturbance SNOMED: 5625046231861 (3) Encephalopathy chronic ICD Codes: G93.49 - Other encephalopathy SNOMED: 70294992 Assessment/Plan lexapro 10mg po qam haldol cont restraints xanax .5 q 6hr /prn Subjective Neurologic/Psychiatric: Reports: anxiety, depressed, emotional problems Allergies: Coded Allergies: No Known Allergies (Unverified , 07/25/18) Subjective waxing and waning of consciousness cont to be agitated and in restraints and mittens Objective Last 24 Hour Vital Signs Date Time Temp Pulse Resp B/P (MAP) Pulse Ox O2 Delivery O2 Flow Rate FiO2 10/04/18 11:02 85 15 40 10/04/18 11:00 100 17 142/88 (106) 100 10/04/18 10:00 89 17 140/84 (102) 100 10/04/18 09:20 86 14 40 10/04/18 09:00 99 17 135/80 (98) 100 10/04/18 08:00 40 10/04/18 08:00 110 10/04/18 08:00 Mechanical Ventilator 10/04/18 08:00 98.6 118 14 150/88 (108) 100 10/04/18 07:14 133 18 40 10/04/18 07:00 115 17 145/87 (106) 100 10/04/18 06:00 84 17 133/65 (87) 100 10/04/18 05:30 66 13 40 10/04/18 05:00 72 14 130/56 (80) 100 10/04/18 04:00 98.5 73 17 133/56 (81) 100 10/04/18 04:00 Mechanical Ventilator 10/04/18 04:00 107 10/04/18 04:00 40 10/04/18 03:30 67 12 40 10/04/18 03:00 108 14 113/68 (83) 100 10/04/18 02:00 80 15 120/68 (85) 100 10/04/18 01:00 67 12 114/43 (66) 100 10/04/18 00:59 66 13 40 10/04/18 00:00 40 10/04/18 00:00 109 10/04/18 00:00 98.3 107 13 135/53 (80) 100 10/04/18 00:00 Mechanical Ventilator 10/03/18 23:00 84 15 140/68 (92) 100 10/03/18 22:59 97 16 40 10/03/18 22:00 70 12 134/51 (78) 100 10/03/18 21:15 121/46 10/03/18 21:00 63 12 121/46 (71) 100 10/03/18 20:35 70 15 40 10/03/18 20:00 40 10/03/18 20:00 72 10/03/18 20:00 98.1 70 14 133/52 (79) 100 10/03/18 20:00 Mechanical Ventilator 10/03/18 19:24 69 12 40 10/03/18 18:57 71 15 133/50 (77) 100 10/03/18 18:00 69 14 130/51 (77) 100 10/03/18 17:07 63 12 40 10/03/18 17:00 64 15 117/46 (69) 100 10/03/18 16:00 98.0 67 14 125/47 (73) 100 10/03/18 16:00 40 10/03/18 16:00 Mechanical Ventilator 10/03/18 16:00 65 10/03/18 15:15 68 15 40 10/03/18 15:00 70 15 127/53 (77) 100 10/03/18 14:00 69 15 135/55 (81) 100 10/03/18 13:15 73 16 40 10/03/18 13:00 71 15 121/50 (73) 100 Intake and Output 10/03/18 10/04/18 19:00 07:00 Intake Total 2287 ml 1015 ml Output Total 0 ml 0 ml Balance 2287 ml 1015 ml IV Total 617 ml 595 ml Tube Feeding 420 ml 420 ml Blood Product 250 ml Hemodialysis 1000 ml Output Urine Total 0 ml 0 ml # Bowel Movements 1 2 Laboratory Tests 10/04/18 04:45: White Blood Count 12.6H, Red Blood Count 3.10L, Hemoglobin 9.4L, Hematocrit 28.6L, Mean Corpuscular Volume 92, Mean Corpuscular Hemoglobin 30.4, Mean Corpuscular Hemoglobin Concent 33.0, Red Cell Distribution Width 16.7H, Platelet Count 413, Mean Platelet Volume 6.0L, Neutrophils (%) (Auto) , Lymphocytes (%) (Auto) , Monocytes (%) (Auto) , Eosinophils (%) (Auto) , Basophils (%) (Auto) , Sodium Level 133L, Potassium Level 3.7, Chloride Level 98 , Carbon Dioxide Level 26, Anion Gap 10, Blood Urea Nitrogen 36H, Creatinine 1.4H, Estimat Glomerular Filtration Rate , Glucose Level 99, Calcium Level 8.6 Height (Feet): 5 Height (Inches): 3.00 Weight (Pounds): 155 General Appearance: alert, confused, agitated Sophia Castaneda MD Oct 04, 2018 12:13
--- NOTE | 2018-10-04 13:24 | Cardiology Report ---
APPROVED REPORT EXAM: Two-dimensional and M-mode echocardiogram with Doppler and color Doppler. INDICATION ENDOCARDITIS M-Mode DIMENSIONS IVSd1.2 (0.7-1.1cm)Left Atrium (MM)5.2 (1.6-4.0cm) LVDd4.5 (3.5-5.6cm)Aortic Root3.8 (2.0-3.7cm) PWd1.0 (0.7-1.1cm)Aortic Cusp Exc.1.6 (1.5-2.0cm) IVSs1.3 cm LVDs3.0 (2.5-4.0cm) PWs1.2 cm Normal left ventricular chamber size, systolic function and wall motion. Left ventricular ejection fraction estimated to be 70-75%. Mild left ventricular hypertrophy by 2-D. Small posterior pericardial effusion. Moderate left atrial enlargement . Right cardiac chamber sizes are within normal limits. Mild aortic valve sclerosis with adequate cusp excursion. Moderately thickened mitral valve leaflets with normal excursion. Moderately annulus and aortic root calcification. Pulmonic valve not well visualized. IVC at 2.0 cm without physiologic collapse suggestive of increased RA pressure. A color flow and spectral Doppler study was performed and revealed: No aortic insufficiency . Left ventricular diastolic function can not determined due to A-FIB. Moderate mitral regurgitation. Mild tricuspid regurgitation. Tricuspid systolic velocities suggests peak right ventricular systolic pressure of 58-63 mmHg,consistent with severe pulmonary hypertension .
--- NOTE | 2018-10-04 13:42 | Nephrology Progress Note ---
Assessment/Plan Plan Urosepsis (GNR) IV Abx per ID. Worsening anemia 2 above -transfuse on HD. ESRD HD MWF Chr. A. Fib - apixaban. DC'ed due to wound bleeding. HD done. Transfused. Subjective Subjective Less confused. More alert. Per RN depressed. Objective Objective Last 24 Hour Vital Signs Date Time Temp Pulse Resp B/P (MAP) Pulse Ox O2 Delivery O2 Flow Rate FiO2 10/04/18 13:00 124 17 40 10/04/18 12:00 117 10/04/18 12:00 98.8 110 17 157/61 (93) 100 10/04/18 12:00 Mechanical Ventilator 10/04/18 12:00 40 10/04/18 11:02 85 15 40 10/04/18 11:00 100 17 142/88 (106) 100 10/04/18 10:00 89 17 140/84 (102) 100 10/04/18 09:20 86 14 40 10/04/18 09:00 99 17 135/80 (98) 100 10/04/18 08:00 40 10/04/18 08:00 110 10/04/18 08:00 Mechanical Ventilator 10/04/18 08:00 98.6 118 14 150/88 (108) 100 10/04/18 07:14 133 18 40 10/04/18 07:00 115 17 145/87 (106) 100 10/04/18 06:00 84 17 133/65 (87) 100 10/04/18 05:30 66 13 40 10/04/18 05:00 72 14 130/56 (80) 100 10/04/18 04:00 98.5 73 17 133/56 (81) 100 10/04/18 04:00 Mechanical Ventilator 10/04/18 04:00 107 10/04/18 04:00 40 10/04/18 03:30 67 12 40 10/04/18 03:00 108 14 113/68 (83) 100 10/04/18 02:00 80 15 120/68 (85) 100 10/04/18 01:00 67 12 114/43 (66) 100 10/04/18 00:59 66 13 40 10/04/18 00:00 40 10/04/18 00:00 109 10/04/18 00:00 98.3 107 13 135/53 (80) 100 10/04/18 00:00 Mechanical Ventilator 10/03/18 23:00 84 15 140/68 (92) 100 10/03/18 22:59 97 16 40 10/03/18 22:00 70 12 134/51 (78) 100 10/03/18 21:15 121/46 10/03/18 21:00 63 12 121/46 (71) 100 10/03/18 20:35 70 15 40 10/03/18 20:00 40 10/03/18 20:00 72 10/03/18 20:00 98.1 70 14 133/52 (79) 100 10/03/18 20:00 Mechanical Ventilator 10/03/18 19:24 69 12 40 10/03/18 18:57 71 15 133/50 (77) 100 10/03/18 18:00 69 14 130/51 (77) 100 10/03/18 17:07 63 12 40 10/03/18 17:00 64 15 117/46 (69) 100 10/03/18 16:00 98.0 67 14 125/47 (73) 100 10/03/18 16:00 40 10/03/18 16:00 Mechanical Ventilator 10/03/18 16:00 65 10/03/18 15:15 68 15 40 10/03/18 15:00 70 15 127/53 (77) 100 10/03/18 14:00 69 15 135/55 (81) 100 Intake and Output 10/03/18 10/04/18 19:00 07:00 Intake Total 2287 ml 1015 ml Output Total 0 ml 0 ml Balance 2287 ml 1015 ml IV Total 617 ml 595 ml Tube Feeding 420 ml 420 ml Blood Product 250 ml Hemodialysis 1000 ml Output Urine Total 0 ml 0 ml # Bowel Movements 1 2 Laboratory Tests 10/04/18 04:45: White Blood Count 12.6H, Red Blood Count 3.10L, Hemoglobin 9.4L, Hematocrit 28.6L, Mean Corpuscular Volume 92, Mean Corpuscular Hemoglobin 30.4, Mean Corpuscular Hemoglobin Concent 33.0, Red Cell Distribution Width 16.7H, Platelet Count 413, Mean Platelet Volume 6.0L, Neutrophils (%) (Auto) , Lymphocytes (%) (Auto) , Monocytes (%) (Auto) , Eosinophils (%) (Auto) , Basophils (%) (Auto) , Sodium Level 133L, Potassium Level 3.7, Chloride Level 98 , Carbon Dioxide Level 26, Anion Gap 10, Blood Urea Nitrogen 36H, Creatinine 1.4H, Estimat Glomerular Filtration Rate , Glucose Level 99, Calcium Level 8.6 Height (Feet): 5 Height (Inches): 3.00 Weight (Pounds): 155 Objective On Vent. Cv IRR +tach Lungs CTA Abd SNT. BS + E No CCE Chase He MD Oct 04, 2018 13:42
--- NOTE | 2018-10-04 14:05 | NUR ---
NURSE NOTES: Patient turned and repositioned. no new orders. Will continue plan of care.
--- NOTE | 2018-10-04 16:00 | NUR ---
NURSE NOTES: VSS. Turned and repositioned. No new orders.
--- NOTE | 2018-10-04 18:13 | NUR ---
NURSE NOTES: Turned and repositioned. VSS. Transfer order obtained awaiting on room for patient in [facility]. Son at bedside. Plan of care discussed with son. Will continue plan of care.
--- NOTE | 2018-10-04 19:16 | NUR ---
HAND-OFF: Report given to BALDO Mac using sbar. VSS. No distress noted.
--- NOTE | 2018-10-04 19:17 | NUR ---
NURSE NOTES: Endorsement received from BALDO Locke. Patient opens eyes spontaneously, follows simple commands. With trache to vent. Shiley 8.0 AC 8 450, PEEP 5, 40% FiO2. With AV shunt at left upper arm. on left arm precautions. Ongoing 1/2NS at 50ml/hr. With GT patent and intact. Ongoing Nepro 35ml/hr. No residual. With bilateral soft wrist restraints for attempting to pull out tubes. On P200 mattress. Head of bed elevated. Call light within reach. Bed locked and in low position. Bed alarm on
[2018-10-04] MEDS ORDERED: Iron Sucrose 100 MG in NS 55 ML IV SCH (21:00)
[2018-10-04] MEDS ORDERED: Acetaminophen 650 MG SUPP RECTAL PRN (21:45)
--- NOTE | 2018-10-04 21:45 | NUR ---
NURSE NOTES: Received report from Nathaly Wright RN. Patient is asleep in bed, nonverbal, A/O x3. No s/s of acute distress noted. Sinus rhythm on patient monitor. Saturating well on trach-vent settings: Portex 8, AC 8, Vt 450, FiO2 40%, PEEP 5. Receiving Nepro @ 35 cc/hr via GT and tolerating well. Left upper arm AV shunt noted. Right hand 20g IV saline lock, right hand 22g IV saline, both intact and patent. Right forearm 20g IV, intact and patent, running 1/2 NS @ 50 cc/hr. Bed locked in lowest position with padded side rails up x3. Call light left within reach. Will continue to monitor.
--- NOTE | 2018-10-04 21:47 | NUR ---
TRANSFER TO FLOOR: Patient transferred to [facility], per hospital bed. Report given to BALDO Morales. Patient has no belongings.
[2018-10-05] VITALS: BP 120/71
[2018-10-05] MEDS: Meropenem 500 MG in NS 55 ML IVPB SCH ×2 (00:53→12:53)
[2018-10-05 04:00] VITALS: BP 128/56
[2018-10-05] MEDS ORDERED: Heparin Sod 1000 units/ml 10ml IV PRN ×2 (06:00)
--- NOTE | 2018-10-05 07:12 | NUR ---
HAND-OFF: Report given to Ela Nichols RN.
--- NOTE | 2018-10-05 07:16 | NUR ---
RESPIRATORY NOTE: Patient received mechanically ventilated on PB 840 with current ordered vent settings. Patient has trach size 8.0 Shiley cuffed that is secured with trach tie and guard. Patient presents with bilateral coarse breath sounds and moderated amount of thick white/yellow secretions were suctioned without incident. There is an ambu bag available at the bedside and the vent is connected to a red outlet. Vent alarms are functional and audible. Will continue to monitor.
--- NOTE | 2018-10-05 07:33 | Pulmonology Progress Note ---
Assessment/Plan Assessment/Plan 1. Shock, septic. Resolved 2. UTI. 3. ESRD, on dialysis. 4. Ventilator dependent respiratory failure. 5. Tracheostomy. 6. Diabetes mellitus. 7. Chronic atrial fibrillation. 8. Bacteremia. DISCUSSION: Continue broad-spectrum antibiotics. I will continue AC mode. Continue to decrease FiO2 as tolerated. Blood transfusion as required. Hemodialysis per renal. Transferred to [facility] Andres Allan M.D. Subjective Interval Events: Transferred to [facility] Constitutional: Reports: no symptoms HEENT: Repors: no symptoms Respiratory: Reports: no symptoms Cardiovascular: Reports: no symptoms Gastrointestinal/Abdominal: Reports: no symptoms Genitourinary: Reports: no symptoms Allergies: Coded Allergies: No Known Allergies (Unverified , 07/25/18) Objective Last 24 Hour Vital Signs Date Time Temp Pulse Resp B/P (MAP) Pulse Ox O2 Delivery O2 Flow Rate FiO2 10/05/18 07:14 72 15 40 10/05/18 05:11 70 13 40 10/05/18 04:00 97.7 63 14 128/56 (80) 98 10/05/18 04:00 Mechanical Ventilator 10/05/18 04:00 40 10/05/18 03:30 101 13 40 10/05/18 03:21 70 10/05/18 01:30 104 11 40 10/05/18 00:00 97.7 109 13 120/71 (87) 100 10/05/18 00:00 64 10/05/18 00:00 40 10/05/18 00:00 Mechanical Ventilator 10/04/18 23:05 110 12 40 10/04/18 21:45 97.7 64 12 130/56 (80) 100 10/04/18 21:00 67 16 133/47 (75) 100 10/04/18 20:41 114 13 40 10/04/18 20:00 40 10/04/18 20:00 Mechanical Ventilator 10/04/18 20:00 98.6 103 15 135/50 (78) 100 10/04/18 20:00 82 10/04/18 19:30 105 14 40 10/04/18 19:00 82 17 130/65 (86) 100 10/04/18 18:00 80 17 132/66 (88) 100 10/04/18 17:04 75 15 40 10/04/18 17:00 105 17 142/64 (90) 100 10/04/18 16:00 40 10/04/18 16:00 Mechanical Ventilator 10/04/18 16:00 98.6 102 17 135/66 (89) 100 10/04/18 16:00 78 10/04/18 15:33 124 18 Mechanical Ventilator 35 10/04/18 15:21 80 17 40 10/04/18 15:00 108 17 147/68 (94) 100 10/04/18 14:00 104 17 133/62 (85) 100 10/04/18 13:00 124 17 40 10/04/18 13:00 108 17 138/60 (86) 100 10/04/18 12:00 81 10/04/18 12:00 98.8 110 17 157/61 (93) 100 10/04/18 12:00 Mechanical Ventilator 10/04/18 12:00 40 10/04/18 11:02 85 15 40 10/04/18 11:00 100 17 142/88 (106) 100 10/04/18 10:00 89 17 140/84 (102) 100 10/04/18 09:20 86 14 40 10/04/18 09:00 99 17 135/80 (98) 100 10/04/18 08:00 40 10/04/18 08:00 110 10/04/18 08:00 Mechanical Ventilator 10/04/18 08:00 98.6 118 14 150/88 (108) 100 Intake and Output 10/04/18 10/05/18 19:00 07:00 Intake Total 470 ml 928.333 ml Output Total 0 ml 0 ml Balance 470 ml 928.333 ml Free Water 30 ml IV Total 50 ml 513.333 ml Tube Feeding 420 ml 385 ml Output Urine Total 0 ml 0 ml # Bowel Movements 3 5 General Appearance: no acute distress HEENT: normocephalic, status post trach Respiratory/Chest: chest wall non-tender, lungs clear, normal breath sounds Cardiovascular: normal peripheral pulses, regular rhythm Laboratory Tests 10/05/18 03:45: Random Vancomycin Level 17.1 Current Medications Medications (Trade) Dose Ordered Sig/Renetta Route PRN Reason Start Time Stop Time Status Last Admin Dose Admin Acetaminophen (Tylenol) 650 mg Q4H PRN RECTAL Mild Pain (Pain Scale 1-3) 10/04/18 21:45 10/29/18 21:44 Alprazolam (Xanax) 0.5 mg TIDPRN PRN ORAL agitation 10/04/18 21:45 10/11/18 21:44 Dextrose (Dextrose 50%) 25 ml Q30M PRN IV Hypoglycemia 10/04/18 21:45 10/29/18 21:44 Dextrose (Dextrose 50%) 50 ml Q30M PRN IV Hypoglycemia 10/04/18 21:45 10/29/18 21:44 Epoetin Paul (Epoetin Paul(ESRD on dialysis)) 10,000 unit WED-WED-WED SUBQ 10/05/18 21:00 10/30/18 20:59 Escitalopram Oxalate (Lexapro) 10 mg DAILY ORAL 10/05/18 09:00 10/31/18 10:59 Haloperidol (Haldol) 5 mg BID ORAL 10/05/18 09:00 10/31/18 17:59 Heparin Sodium (Porcine) (Heparin Sod 1000 units/ml 10ml) 500 unit ONCE PRN IV HD USE 10/05/18 06:00 10/05/18 21:59 Iron Sucrose 100 mg/Sodium Chloride 60 ml @ 240 mls/hr BEDTIME IV 10/05/18 21:00 10/06/18 21:14 Meropenem 500 mg/ Sodium Chloride 55 ml @ 110 mls/hr Q12H IVPB 10/05/18 01:00 10/08/18 12:59 10/05/18 00:53 Ondansetron HCl (Zofran) 4 mg Q6H PRN IVP Nausea & Vomiting 10/04/18 21:45 11/03/18 21:44 Pantoprazole (Protonix) 40 mg DAILY IV 10/05/18 09:00 10/30/18 08:59 Sodium Chloride 1,000 ml @ 50 mls/hr Q20H IV 10/04/18 21:45 10/29/18 21:44 10/04/18 21:50 Sodium Chloride 1,000 ml @ 500 mls/hr Q2H PRN IVLG sbp<90 during hd 10/05/18 06:00 10/05/18 23:59 Vancomycin HCl (Vanco rx to dose) 1 ea DAILY PRN MISC Per rx protocol 10/04/18 21:45 11/03/18 21:44 Andres Allan MD Oct 05, 2018 07:33
--- NOTE | 2018-10-05 07:45 | NUR ---
NURSE NOTES: Received patient from BALDO Miller. Patient awake, able to answer by nodding, follows simple commands. Shiley 8 trach to vent, settings: AC8, TV 450, Fio2 40%, PEEP 5. SR on the awake overnight monitor. No acute distress noted. Left arm AV shunt noted. On bilateral soft wrist restraints. skin intact and warm, pulses present. G-tube intact, running nephro at 35ml/hr. HOB elevated. Wound dressings intact, clean and dry. bed in lowest position. Bed alarm on. Call light within reach. Will continue to care plan.
[2018-10-05 08:00] VITALS: BP 140/60
[2018-10-05] MEDS: Pantoprazole Inj IV SCH (09:26)
--- NOTE | 2018-10-05 11:30 | NUR ---
NURSE NOTES: patient resting in bed, no acute distress. pt tolerating feeding, 5ml residual noted. HOB elevated.
[2018-10-05] MEDS ORDERED: Vancomycin 750mg/D5W 275ml IVPB SCH ×2 (12:00)
[2018-10-05 12:25] VITALS: BP 122/52
--- NOTE | 2018-10-05 12:56 | General Progress Note ---
Assessment/Plan Problem List: (1) MDD (major depressive disorder), recurrent episode ICD Codes: F33.9 - Major depressive disorder, recurrent, unspecified SNOMED: 659823686 (2) Dementia with behavioral disturbance ICD Codes: F03.91 - Unspecified dementia with behavioral disturbance SNOMED: 7661550926588 (3) Encephalopathy chronic ICD Codes: G93.49 - Other encephalopathy SNOMED: 74250000 Status: unchanged Assessment/Plan lexapro 10mg po qam haldol cont restraints xanax .5 q 6hr /prn Subjective Neurologic/Psychiatric: Reports: anxiety, depressed, emotional problems Allergies: Coded Allergies: No Known Allergies (Unverified , 07/25/18) Subjective waxing and waning of consciousness cont to be agitated and in restraints asked me to take her restraints off Objective Last 24 Hour Vital Signs Date Time Temp Pulse Resp B/P (MAP) Pulse Ox O2 Delivery O2 Flow Rate FiO2 10/05/18 12:25 97.2 63 12 122/52 (75) 99 10/05/18 12:00 40 10/05/18 12:00 Mechanical Ventilator 10/05/18 11:05 69 16 40 10/05/18 09:06 70 16 40 10/05/18 09:00 Mechanical Ventilator 10/05/18 08:00 97.7 68 15 140/60 (86) 100 10/05/18 08:00 69 10/05/18 08:00 40 10/05/18 07:14 72 15 40 10/05/18 05:11 70 13 40 10/05/18 04:00 97.7 63 14 128/56 (80) 98 10/05/18 04:00 Mechanical Ventilator 10/05/18 04:00 40 10/05/18 03:30 101 13 40 10/05/18 03:21 70 10/05/18 01:30 104 11 40 10/05/18 00:00 97.7 109 13 120/71 (87) 100 10/05/18 00:00 64 10/05/18 00:00 40 10/05/18 00:00 Mechanical Ventilator 10/04/18 23:05 110 12 40 10/04/18 21:45 97.7 64 12 130/56 (80) 100 10/04/18 21:00 67 16 133/47 (75) 100 10/04/18 20:41 114 13 40 2/5/19 20:00 40 10/04/18 20:00 Mechanical Ventilator 10/04/18 20:00 98.6 103 15 135/50 (78) 100 10/04/18 20:00 82 10/04/18 19:30 105 14 40 10/04/18 19:00 82 17 130/65 (86) 100 10/04/18 18:00 80 17 132/66 (88) 100 10/04/18 17:04 75 15 40 10/04/18 17:00 105 17 142/64 (90) 100 10/04/18 16:00 40 10/04/18 16:00 Mechanical Ventilator 10/04/18 16:00 98.6 102 17 135/66 (89) 100 10/04/18 16:00 78 10/04/18 15:33 124 18 Mechanical Ventilator 35 10/04/18 15:21 80 17 40 10/04/18 15:00 108 17 147/68 (94) 100 10/04/18 14:00 104 17 133/62 (85) 100 10/04/18 13:00 124 17 40 10/04/18 13:00 108 17 138/60 (86) 100 Intake and Output 10/04/18 10/05/18 19:00 07:00 Intake Total 470 ml 928.333 ml Output Total 0 ml 0 ml Balance 470 ml 928.333 ml Free Water 30 ml IV Total 50 ml 513.333 ml Tube Feeding 420 ml 385 ml Output Urine Total 0 ml 0 ml # Bowel Movements 3 5 Laboratory Tests 10/05/18 03:45: Random Vancomycin Level 17.1 Height (Feet): 5 Height (Inches): 3.00 Weight (Pounds): 157 General Appearance: alert, confused, agitated Sophia Castaneda MD Oct 05, 2018 12:56
--- NOTE | 2018-10-05 13:33 | NUR ---
NURSE NOTES: hemodialysis ongoing, HD nurse at bedside. vss
[2018-10-05] MEDS: OLANZapine 2.5mg tab ORAL SCH ×2 (13:42→18:22)
--- NOTE | 2018-10-05 14:00 | Nephrology Progress Note ---
Assessment/Plan Plan Urosepsis (GNR) IV Abx per ID. Worsening anemia 2 above -transfuse on HD. ESRD HD MWF Chr. A. Fib - apixaban. DC'ed due to wound bleeding. HD done. Transfused. Sacral Decub - GS Consult Subjective Subjective Less confused. More alert. On HD. Stable run Objective Objective Last 24 Hour Vital Signs Date Time Temp Pulse Resp B/P (MAP) Pulse Ox O2 Delivery O2 Flow Rate FiO2 10/05/18 13:02 67 16 40 10/05/18 12:25 97.2 63 12 122/52 (75) 99 10/05/18 12:00 40 10/05/18 12:00 Mechanical Ventilator 10/05/18 11:05 69 16 40 10/05/18 09:06 70 16 40 10/05/18 09:00 Mechanical Ventilator 10/05/18 08:00 97.7 68 15 140/60 (86) 100 10/05/18 08:00 69 10/05/18 08:00 40 10/05/18 07:14 72 15 40 10/05/18 05:11 70 13 40 10/05/18 04:00 97.7 63 14 128/56 (80) 98 10/05/18 04:00 Mechanical Ventilator 10/05/18 04:00 40 10/05/18 03:30 101 13 40 10/05/18 03:21 70 10/05/18 01:30 104 11 40 10/05/18 00:00 97.7 109 13 120/71 (87) 100 10/05/18 00:00 64 10/05/18 00:00 40 10/05/18 00:00 Mechanical Ventilator 10/04/18 23:05 110 12 40 10/04/18 21:45 97.7 64 12 130/56 (80) 100 10/04/18 21:00 67 16 133/47 (75) 100 10/04/18 20:41 114 13 40 10/04/18 20:00 40 10/04/18 20:00 Mechanical Ventilator 10/04/18 20:00 98.6 103 15 135/50 (78) 100 10/04/18 20:00 82 10/04/18 19:30 105 14 40 10/04/18 19:00 82 17 130/65 (86) 100 2/5/19 18:00 80 17 132/66 (88) 100 10/04/18 17:04 75 15 40 10/04/18 17:00 105 17 142/64 (90) 100 10/04/18 16:00 40 10/04/18 16:00 Mechanical Ventilator 10/04/18 16:00 98.6 102 17 135/66 (89) 100 10/04/18 16:00 78 10/04/18 15:33 124 18 Mechanical Ventilator 35 10/04/18 15:21 80 17 40 10/04/18 15:00 108 17 147/68 (94) 100 10/04/18 14:00 104 17 133/62 (85) 100 Intake and Output 10/04/18 10/05/18 19:00 07:00 Intake Total 470 ml 963.333 ml Output Total 0 ml 0 ml Balance 470 ml 963.333 ml Free Water 30 ml IV Total 50 ml 513.333 ml Tube Feeding 420 ml 420 ml Output Urine Total 0 ml 0 ml # Bowel Movements 3 5 Laboratory Tests 10/05/18 03:45: Random Vancomycin Level 17.1 Height (Feet): 5 Height (Inches): 3.00 Weight (Pounds): 157 Objective On Vent. Cv IRR +tach Lungs CTA Abd SNT. BS + E No CCE Skin stage 3 sacral decub. Chase He MD Oct 05, 2018 14:00
--- NOTE | 2018-10-05 14:37 | Surgery Progress Note ---
Surgery Progress Note Subjective Additional Comments no acute events. sacral wound with some decline. still a stage III but not forming good granulation tissue Objective Last 24 Hour Vital Signs Date Time Temp Pulse Resp B/P (MAP) Pulse Ox O2 Delivery O2 Flow Rate FiO2 10/05/18 13:02 67 16 40 10/05/18 12:25 97.2 63 12 122/52 (75) 99 10/05/18 12:00 40 10/05/18 12:00 64 10/05/18 12:00 Mechanical Ventilator 10/05/18 11:05 69 16 40 10/05/18 09:06 70 16 40 10/05/18 09:00 Mechanical Ventilator 10/05/18 08:00 97.7 68 15 140/60 (86) 100 10/05/18 08:00 69 10/05/18 08:00 40 10/05/18 07:14 72 15 40 10/05/18 05:11 70 13 40 10/05/18 04:00 97.7 63 14 128/56 (80) 98 10/05/18 04:00 Mechanical Ventilator 10/05/18 04:00 40 10/05/18 03:30 101 13 40 10/05/18 03:21 70 10/05/18 01:30 104 11 40 10/05/18 00:00 97.7 109 13 120/71 (87) 100 10/05/18 00:00 64 10/05/18 00:00 40 10/05/18 00:00 Mechanical Ventilator 10/04/18 23:05 110 12 40 10/04/18 21:45 97.7 64 12 130/56 (80) 100 10/04/18 21:00 67 16 133/47 (75) 100 10/04/18 20:41 114 13 40 10/04/18 20:00 40 10/04/18 20:00 Mechanical Ventilator 10/04/18 20:00 98.6 103 15 135/50 (78) 100 10/04/18 20:00 82 10/04/18 19:30 105 14 40 10/04/18 19:00 82 17 130/65 (86) 100 10/04/18 18:00 80 17 132/66 (88) 100 10/04/18 17:04 75 15 40 10/04/18 17:00 105 17 142/64 (90) 100 10/04/18 16:00 40 10/04/18 16:00 Mechanical Ventilator 10/04/18 16:00 98.6 102 17 135/66 (89) 100 10/04/18 16:00 78 10/04/18 15:33 124 18 Mechanical Ventilator 35 10/04/18 15:21 80 17 40 10/04/18 15:00 108 17 147/68 (94) 100 I&O Intake and Output 10/04/18 10/05/18 19:00 07:00 Intake Total 470 ml 963.333 ml Output Total 0 ml 0 ml Balance 470 ml 963.333 ml Free Water 30 ml IV Total 50 ml 513.333 ml Tube Feeding 420 ml 420 ml Output Urine Total 0 ml 0 ml # Bowel Movements 3 5 Dressing: saturated Wound: other Drains: other Cardiovascular: RSR Respiratory: clear, decreased breath sounds Abdomen: soft, present bowel sounds, non-distended Extremities: other Laboratory Tests Test 10/05/18 03:45 Random Vancomycin Level 17.1 ug/mL Plan Problems: (1) Septic shock Assessment & Plan: infected central line removed line free plan for PICC soon (2) Decubital ulcer Assessment & Plan: Pt presents with 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 Scattered Biofilm at base of sacrum with40% yellow slough along borders of wound .minimal non-odorous serous exudate.Non-blanchable erythema with additional scattered partial wounds periwound to R and L buttocks Unstageable pressure injury R ischium with 95% slough, 5% erythema along margins.Non-blanchable erythema periwound (L)2cm x (W)0.4cm. Stable dry eschar lateral/posterior R tibia.Periwound is clean and pink.(L)3cmx (W)2cm. Stable dry eschar R heel (L)2cm x (W)1.7cm .Periwound blanchable . Pressure injury with 100% eschar ,loose around edges ,padmaja pink borders .No odor or exudate noted.(L)1.7cm x (W)2cm. L forearm edematous and weeping serous exudate. Scattered senile purpuras bilat upper and bilat lower ext. Skin assessed under trach collar and no evidence of skin breakdown noted. Wound medial /distal R tibia with 100% stable dry eschar (L)2cm x (W)1.6cm. Periwound is pink and dry. Tx.Plan: Cleanse sacral wound with Saline.Loosely pack with Silvasorb impregnated 1/2 inch packing strip .Apply Moisture Barrier paste periwound .Cover with Optifoam drsg Daily and prn. Apply Cavilon Skin Barrier to R ischial wound .Cover with Optifoam drsg .Change every 3 days and prn. Apply Cavilon Skin Barrier to wound medial R tibia.Cover with Optifoam drsg every 7 days and prn. Apply Cavilon Skin Barrier to R heel .Cover with Optifoam drsg. Change every 7 days and prn. Apply Cavilon Skin Barrier to Medial L heel.Cover with Optifoam drsg .Change every 7 days and prn. APM /LATASHA mattress overlay. Reposition at least every 2 hours or as tolerated. Off-load heels with pillow. Discussed with PCP. Will consider debridement soon to clean biofilm and promote granulation tissue. (3) Severe malnutrition Assessment & Plan: nutrition consult needs optimal nutrition in septic state for recovery and wound healing Reji Nails Oct 05, 2018 14:37
[2018-10-05] MEDS ORDERED: 1/2 NS 1000ml IV ONE (15:24)
[2018-10-05] MEDS ORDERED: NS 275ml ONE (15:24)
[2018-10-05] MEDS ORDERED: Tubing IV Secondary IV ONE (15:24)
[2018-10-05 16:00] VITALS: BP 105/52
--- NOTE | 2018-10-05 16:00 | NUR ---
NURSE NOTES: Patient resting in bed with eyes closed, no acute distress noted. 2.5L out from HD per HD nurse.
--- NOTE | 2018-10-05 17:00 | NUR ---
NURSE NOTES: Informed Dr. Cabezas that pt having diarrhea, okay to insert rectal tube per PMD. Addendum: 10/05/18 at 1922 by DAE BURROUGHS RN sacral dressing was soiled. dressing changed per order. pt kept clean and dry.
--- NOTE | 2018-10-05 18:00 | NUR ---
NURSE NOTES: Inserted rectal tube per PMD
--- NOTE | 2018-10-05 19:15 | NUR ---
NURSE NOTES: Received report from Janki Koenig RN, pt. in bed awake, A/O x's 2-3, no signs or symptoms of acute cardiac or respiratory distress noted, bed in lowest position and call light within easy reach, bed alarm on, side rails up x's3 and safety braked engaged, cardiac monitoring on, pt. appears to be tolerating current vent settings well- AC 8, TV 450, Fio2 40% and Peep 5, Nephro running via G tube at 40cc/hr- at goal- no residual noted, pt. appears to be resting comfortably, SHARON AV shunt for Hemodialysis, RT. hand 22G IV intact and patent, RFA 20G running 1/2 NS at50cc/hr- Iv intact and patent, safety measures continued, will continue with plan of care.
--- NOTE | 2018-10-05 19:22 | NUR ---
HAND-OFF: Report given to BALDO Agustin.
--- NOTE | 2018-10-05 19:26 | NUR ---
RESPIRATORY NOTE: Received pt on current vent setting. Small amount of white, tobin secretions and will sxn prn. SPO2 94%, HR 69. Vent is plugged into red outlet. Alarms are on and audible. Ambu bag is in the bedside. Will continue to monitor pt.
[2018-10-05 20:00] VITALS: BP 138/61
[2018-10-05] MEDS: Iron Sucrose 100 MG in NS 55 ML IV SCH (20:24)
[2018-10-05] MEDS: Epoetin Alfa(ESRD on dialysis)10,000 unit/ml vial SUBQ SCH (20:24)
[2018-10-06] VITALS: BP 137/60
[2018-10-06] MEDS: Meropenem 500 MG in NS 55 ML IVPB SCH ×2 (00:14→13:17)
[2018-10-06 04:00] VITALS: BP 138/76
[2018-10-06 04:03] LABS: HEMOGLOBIN 9.8 G/DL (12.0-16.0); MEAN CORPUSCULAR VOLUME 91 FL (80-99); PLATELET COUNT 504 K/UL (150-450); RED BLOOD COUNT 3.18 M/UL (4.20-5.40); RED CELL DISTRIBUTION WIDTH 16.8 % (11.6-14.8); WHITE BLOOD COUNT 17.6 K/UL (4.8-10.8)
[2018-10-06 04:30] LABS: ALANINE AMINOTRANSFERASE 18 U/L (12-78); ALBUMIN 1.3 G/DL (3.4-5.0); ALBUMIN/GLOBULIN RATIO 0.3 (1.0-2.7); ALKALINE PHOSPHATASE 122 U/L (46-116); ANION GAP 6 mmol/L (5-15); ASPARTATE AMINO TRANSFERASE 25 U/L (15-37); BILIRUBIN,TOTAL 0.2 MG/DL (0.2-1.0); BLOOD UREA NITROGEN 31 mg/dL (7-18); CALCIUM 8.8 MG/DL (8.5-10.1); CARBON DIOXIDE 29 MMOL/L (21-32); CHLORIDE 99 MMOL/L (98-107); CREATININE 1.5 MG/DL (0.55-1.30); POTASSIUM 2.9 MMOL/L (3.5-5.1); SODIUM 134 MMOL/L (136-145)
--- NOTE | 2018-10-06 06:39 | NUR ---
NURSE NOTES: left msg for DR. Morfin, regarding WBC's trending up- waiting for call back from doctor.
--- NOTE | 2018-10-06 07:01 | NUR ---
NURSE NOTES: Left msg for DR. He regarding potassium trending down- waiting for call back form doctor.
--- NOTE | 2018-10-06 07:04 | NUR ---
HAND-OFF: Report given to Bronson RN, pt. stable and no signs of distress noted- aware to f/u on abnormal labs.
--- NOTE | 2018-10-06 07:15 | NUR ---
NURSE NOTES: RECEIVED BED SIDE REPORT FROM TOMEO. ALICIA BLAND STAFF OF NOC SHIFT.RECEIVED PT WITH HOB ELEVATED 45 DEGREE ,TRACH TO VENT .PT TOLERATING WELL CURRENTS VENT SETTINGS.PT AWAKE AND SEEMS AGITATED PULLING MEDICAL DEVICES.PT REPOSITIONED AND BED,RELEASED BILAT SOFT WRIST RESTRAINS AND PROVIDE ROM,S TO ALL EXT,S AND REPOSITIONED IN BED TO PROVIDE COMFORT AND TO PREVENT FURTHERS SKIN BREAK DOWN.RE- APPLIED BILAT SOFT WRIST RESTRAINTS FOR PT SAFETY .PT REMAINS FREE OF INJURIES AT THIS TIME.NO ACUTE DISTRESS NOTE .WILL CONT TO MONITOR.
[2018-10-06 08:00] VITALS: BP 138/75
--- NOTE | 2018-10-06 08:19 | NUR ---
RESPIRATORY NOTE: PT. RECEIVED STABLE ON AC 8, 450, 40%, +5. ALARMS ON AND AUDIBLE. VENT CIRCUIT AND SX TUBBING SECURE AND OUT OF THE WAY. PT. HAS BILATERAL SOFT WRIST RESTRAINS WHICH ARE SECURELY PLACED. NO S/S OF RESPIRATORY DISTRESS NOTED AT THIS TIME. WILL CONTINUE TO MONITOR.
--- NOTE | 2018-10-06 08:55 | Pulmonology Progress Note ---
Assessment/Plan Assessment/Plan 1. Shock, septic. Resolved 2. UTI. 3. ESRD, on dialysis. 4. Ventilator dependent respiratory failure. 5. Tracheostomy. 6. Diabetes mellitus. 7. Chronic atrial fibrillation. 8. Bacteremia. DISCUSSION: Continue broad-spectrum antibiotics. I will continue AC mode. Continue to decrease FiO2 as tolerated. Blood transfusion as required. Hemodialysis per renal. Now in [place] Andres Allan M.D. Subjective Interval Events: No new events; WBC higher; K low Constitutional: Reports: no symptoms HEENT: Repors: no symptoms Respiratory: Reports: no symptoms Cardiovascular: Reports: no symptoms Gastrointestinal/Abdominal: Reports: no symptoms Genitourinary: Reports: no symptoms Neurologic: Reports: no symptoms Allergies: Coded Allergies: No Known Allergies (Unverified , 07/25/18) Objective Last 24 Hour Vital Signs Date Time Temp Pulse Resp B/P (MAP) Pulse Ox O2 Delivery O2 Flow Rate FiO2 10/06/18 08:41 79 18 40 10/06/18 08:19 79 17 40 10/06/18 05:27 77 18 40 10/06/18 04:00 40 10/06/18 04:00 Mechanical Ventilator 10/06/18 04:00 97.1 75 24 138/76 (96) 98 10/06/18 04:00 74 10/06/18 03:22 74 15 40 10/06/18 01:16 69 16 40 10/06/18 00:00 97.7 67 16 137/60 (85) 100 10/06/18 00:00 Mechanical Ventilator 10/06/18 00:00 63 10/05/18 22:45 67 14 40 10/05/18 21:28 72 14 40 10/05/18 20:00 40 10/05/18 20:00 67 10/05/18 20:00 Mechanical Ventilator 10/05/18 20:00 97.9 69 24 138/61 (86) 100 10/05/18 19:25 69 15 40 10/05/18 16:48 100 17 40 10/05/18 16:00 97.2 77 17 105/52 (69) 98 10/05/18 16:00 63 10/05/18 16:00 40 10/05/18 16:00 Mechanical Ventilator 10/05/18 14:36 75 15 40 10/05/18 13:02 67 16 40 10/05/18 12:25 97.2 63 12 122/52 (75) 99 10/05/18 12:00 40 10/05/18 12:00 64 10/05/18 12:00 Mechanical Ventilator 10/05/18 11:05 69 16 40 10/05/18 09:06 70 16 40 10/05/18 09:00 Mechanical Ventilator Intake and Output 10/05/18 10/06/18 19:00 07:00 Intake Total 1519.000 ml 1385 ml Output Total 0 ml 30 ml Balance 1519.000 ml 1355 ml Free Water 120 ml 50 ml IV Total 979.000 ml 950 ml Tube Feeding 420 ml 385 ml Output Urine Total 0 ml Stool Total 30 ml # Bowel Movements 3 3 General Appearance: no acute distress HEENT: normocephalic Respiratory/Chest: chest wall non-tender, lungs clear Cardiovascular: normal peripheral pulses, normal rate Abdomen: normal bowel sounds, soft, non tender Laboratory Tests 10/06/18 03:00: White Blood Count 17.6H, Red Blood Count 3.18L, Hemoglobin 9.8L, Hematocrit 29.0L, Mean Corpuscular Volume 91, Mean Corpuscular Hemoglobin 30.7, Mean Corpuscular Hemoglobin Concent 33.6, Red Cell Distribution Width 16.8H, Platelet Count 504H, Mean Platelet Volume 5.9L, Neutrophils (%) (Auto) , Lymphocytes (%) (Auto) , Monocytes (%) (Auto) , Eosinophils (%) (Auto) , Basophils (%) (Auto) , Neutrophils % (Manual) [Pending], Lymphocytes % (Manual) [Pending], Platelet Estimate [Pending], Platelet Morphology [Pending], Sodium Level 134L, Potassium Level 2.9L, Chloride Level 99, Carbon Dioxide Level 29, Anion Gap 6, Blood Urea Nitrogen 31H, Creatinine 1.5H, Estimat Glomerular Filtration Rate , Glucose Level 113H, Calcium Level 8.8, Total Bilirubin 0.2, Aspartate Amino Transf (AST/SGOT) 25, Alanine Aminotransferase (ALT/SGPT) 18, Alkaline Phosphatase 122H, Total Protein 6.0L, Albumin 1.3L, Globulin 4.7, Albumin/Globulin Ratio 0.3L Current Medications Medications (Trade) Dose Ordered Sig/Renetta Route PRN Reason Start Time Stop Time Status Last Admin Dose Admin Acetaminophen (Tylenol) 650 mg Q4H PRN RECTAL Mild Pain (Pain Scale 1-3) 10/04/18 21:45 10/29/18 21:44 Alprazolam (Xanax) 0.5 mg TIDPRN PRN ORAL agitation 10/04/18 21:45 10/11/18 21:44 Dextrose (Dextrose 50%) 25 ml Q30M PRN IV Hypoglycemia 10/04/18 21:45 10/29/18 21:44 Dextrose (Dextrose 50%) 50 ml Q30M PRN IV Hypoglycemia 10/04/18 21:45 10/29/18 21:44 Epoetin Paul (Epoetin Paul(ESRD on dialysis)) 10,000 unit WED-WED-WED SUBQ 10/05/18 21:00 10/30/18 20:59 10/05/18 20:24 Escitalopram Oxalate (Lexapro) 10 mg DAILY GT 10/05/18 09:00 10/31/18 10:59 10/05/18 09:27 Iron Sucrose 100 mg/Sodium Chloride 60 ml @ 240 mls/hr BEDTIME IV 10/05/18 21:00 10/06/18 21:14 10/05/18 20:24 Meropenem 500 mg/ Sodium Chloride 55 ml @ 110 mls/hr Q12H IVPB 10/05/18 01:00 10/08/18 12:59 10/06/18 00:14 Olanzapine (ZyPREXA) 2.5 mg TID ORAL 10/05/18 13:00 11/04/18 12:59 10/05/18 18:22 Ondansetron HCl (Zofran) 4 mg Q6H PRN IVP Nausea & Vomiting 10/04/18 21:45 11/03/18 21:44 Pantoprazole (Protonix) 40 mg DAILY IV 10/05/18 09:00 10/30/18 08:59 10/05/18 09:26 Sodium Chloride 1,000 ml @ 50 mls/hr Q20H IV 10/04/18 21:45 10/29/18 21:44 10/05/18 12:53 Vancomycin HCl (Vanco rx to dose) 1 ea DAILY PRN MISC Per rx protocol 10/04/18 21:45 11/03/18 21:44 Andres Allan MD Oct 06, 2018 08:55
[2018-10-06] MEDS: OLANZapine 2.5mg tab ORAL SCH (11:20)
[2018-10-06] MEDS: Pantoprazole Inj IV SCH (11:20)
[2018-10-06] MEDS: ALPRAZolam 0.5mg tab ORAL PRN ×2 (11:21→21:06)
--- NOTE | 2018-10-06 11:34 | NUR ---
NURSE NOTES:PT VERY AGITATED PULLING MEDICAL DEVICES.PT MEDICATED WITH XANAX 0.5MG VIA GT.WILL CONT TO MONITOR.
[2018-10-06 12:00] VITALS: BP 137/80
--- NOTE | 2018-10-06 13:28 | General Progress Note ---
Assessment/Plan Problem List: (1) MDD (major depressive disorder), recurrent episode ICD Codes: F33.9 - Major depressive disorder, recurrent, unspecified SNOMED: 956822747 (2) Dementia with behavioral disturbance ICD Codes: F03.91 - Unspecified dementia with behavioral disturbance SNOMED: 8856222495514 (3) Encephalopathy chronic ICD Codes: G93.49 - Other encephalopathy SNOMED: 73737584 Status: unchanged Assessment/Plan lexapro 10mg po qam zyprexa 5mg tid cont restraints xanax .5 q 6hr /prn Subjective Neurologic/Psychiatric: Reports: anxiety Allergies: Coded Allergies: No Known Allergies (Unverified , 07/25/18) Subjective waxing and waning of consciousness cont to be agitated and in restraints more agitated today son stated that he wanted Xanax on board Objective Last 24 Hour Vital Signs Date Time Temp Pulse Resp B/P (MAP) Pulse Ox O2 Delivery O2 Flow Rate FiO2 10/06/18 13:17 80 14 40 10/06/18 12:00 98.2 78 20 137/80 (99) 100 10/06/18 12:00 40 10/06/18 12:00 Mechanical Ventilator 10/06/18 11:54 115 10/06/18 11:16 75 19 40 10/06/18 08:41 79 18 40 10/06/18 08:19 79 17 40 10/06/18 08:00 Mechanical Ventilator 10/06/18 08:00 79.0 79 19 138/75 (96) 100 10/06/18 08:00 40 10/06/18 07:19 77 10/06/18 05:27 77 18 40 10/06/18 04:00 40 10/06/18 04:00 Mechanical Ventilator 10/06/18 04:00 97.1 75 24 138/76 (96) 98 10/06/18 04:00 74 10/06/18 03:22 74 15 40 10/06/18 01:16 69 16 40 10/06/18 00:00 97.7 67 16 137/60 (85) 100 10/06/18 00:00 Mechanical Ventilator 10/06/18 00:00 63 10/05/18 22:45 67 14 40 10/05/18 21:28 72 14 40 10/05/18 20:00 40 10/05/18 20:00 67 10/05/18 20:00 Mechanical Ventilator 10/05/18 20:00 97.9 69 24 138/61 (86) 100 10/05/18 19:25 69 15 40 10/05/18 16:48 100 17 40 10/05/18 16:00 97.2 77 17 105/52 (69) 98 10/05/18 16:00 63 10/05/18 16:00 40 10/05/18 16:00 Mechanical Ventilator 10/05/18 14:36 75 15 40 Intake and Output 10/05/18 10/06/18 19:00 07:00 Intake Total 1519.000 ml 1385 ml Output Total 0 ml 30 ml Balance 1519.000 ml 1355 ml Free Water 120 ml 50 ml IV Total 979.000 ml 950 ml Tube Feeding 420 ml 385 ml Output Urine Total 0 ml Stool Total 30 ml # Bowel Movements 3 3 Laboratory Tests 10/06/18 03:00: White Blood Count 17.6H, Red Blood Count 3.18L, Hemoglobin 9.8L, Hematocrit 29.0L, Mean Corpuscular Volume 91, Mean Corpuscular Hemoglobin 30.7, Mean Corpuscular Hemoglobin Concent 33.6, Red Cell Distribution Width 16.8H, Platelet Count 504H, Mean Platelet Volume 5.9L, Neutrophils (%) (Auto) , Lymphocytes (%) (Auto) , Monocytes (%) (Auto) , Eosinophils (%) (Auto) , Basophils (%) (Auto) , Differential Total Cells Counted 100, Neutrophils % ( Manual) 81H, Lymphocytes % (Manual) 4L, Monocytes % (Manual) 8, Eosinophils % ( Manual) 1, Basophils % (Manual) 0, Myelocytes % 2H, Band Neutrophils 4, Platelet Estimate IncreasedH, Platelet Morphology Normal, Anisocytosis 1+, Sodium Level 134L, Potassium Level 2.9L, Chloride Level 99, Carbon Dioxide Level 29, Anion Gap 6, Blood Urea Nitrogen 31H, Creatinine 1.5H, Estimat Glomerular Filtration Rate , Glucose Level 113H, Calcium Level 8.8, Total Bilirubin 0.2, Aspartate Amino Transf (AST/SGOT) 25, Alanine Aminotransferase ( ALT/SGPT) 18, Alkaline Phosphatase 122H, Total Protein 6.0L, Albumin 1.3L, Globulin 4.7, Albumin/Globulin Ratio 0.3L Height (Feet): 5 Height (Inches): 3.00 Weight (Pounds): 157 General Appearance: alert, lethargic, confused, agitated Sophia Castaneda MD Oct 06, 2018 13:28
--- NOTE | 2018-10-06 13:29 | Infectious Diseases Prog Note ---
Assessment/Plan Assessment/Plan A 1. Staph aureus sepsis 2. E.coli UTI 3. shock resolved 4. pneumonia 5. respiratory failure 6. sacral decubitus ulcer 7. leucocytosis increasing 8. Central line infection, femoral line removed 9. ESRD on HD P 1. continue vancomycin iv, Zosyn 2. will follow up cultures 3. Stool for C. difficile Subjective ROS Limited/Unobtainable: Yes Gastrointestinal/Abdominal: Reports: diarrhea Allergies: Coded Allergies: No Known Allergies (Unverified , 07/25/18) Objective Vital Signs Last 24 Hour Vital Signs Date Time Temp Pulse Resp B/P (MAP) Pulse Ox O2 Delivery O2 Flow Rate FiO2 10/06/18 13:17 80 14 40 10/06/18 12:00 98.2 78 20 137/80 (99) 100 10/06/18 12:00 40 10/06/18 12:00 Mechanical Ventilator 10/06/18 11:54 115 10/06/18 11:16 75 19 40 10/06/18 08:41 79 18 40 10/06/18 08:19 79 17 40 10/06/18 08:00 Mechanical Ventilator 10/06/18 08:00 79.0 79 19 138/75 (96) 100 10/06/18 08:00 40 10/06/18 07:19 77 10/06/18 05:27 77 18 40 10/06/18 04:00 40 10/06/18 04:00 Mechanical Ventilator 10/06/18 04:00 97.1 75 24 138/76 (96) 98 10/06/18 04:00 74 10/06/18 03:22 74 15 40 10/06/18 01:16 69 16 40 10/06/18 00:00 97.7 67 16 137/60 (85) 100 10/06/18 00:00 Mechanical Ventilator 10/06/18 00:00 63 10/05/18 22:45 67 14 40 10/05/18 21:28 72 14 40 10/05/18 20:00 40 10/05/18 20:00 67 10/05/18 20:00 Mechanical Ventilator 10/05/18 20:00 97.9 69 24 138/61 (86) 100 10/05/18 19:25 69 15 40 10/05/18 16:48 100 17 40 10/05/18 16:00 97.2 77 17 105/52 (69) 98 10/05/18 16:00 63 10/05/18 16:00 40 10/05/18 16:00 Mechanical Ventilator 10/05/18 14:36 75 15 40 Height (Feet): 5 Height (Inches): 3.00 Weight (Pounds): 157 HEENT: mucous membranes moist, status post trach Respiratory/Chest: lungs clear, other - on ventilator Cardiovascular: normal rate Abdomen: soft, non tender, other - GT & rectal tube Extremities: other - mild briana edema Neurologic/Psychiatric: disoriented Laboratory Tests Test 10/06/18 03:00 White Blood Count 17.6 K/UL (4.8-10.8) H Red Blood Count 3.18 M/UL (4.20-5.40) L Hemoglobin 9.8 G/DL (12.0-16.0) L Hematocrit 29.0 % (37.0-47.0) L Mean Corpuscular Volume 91 FL (80-99) Mean Corpuscular Hemoglobin 30.7 PG (27.0-31.0) Mean Corpuscular Hemoglobin Concent 33.6 G/DL (32.0-36.0) Red Cell Distribution Width 16.8 % (11.6-14.8) H Platelet Count 504 K/UL (150-450) H Mean Platelet Volume 5.9 FL (6.5-10.1) L Neutrophils (%) (Auto) % (45.0-75.0) Lymphocytes (%) (Auto) % (20.0-45.0) Monocytes (%) (Auto) % (1.0-10.0) Eosinophils (%) (Auto) % (0.0-3.0) Basophils (%) (Auto) % (0.0-2.0) Differential Total Cells Counted 100 Neutrophils % (Manual) 81 % (45-75) H Lymphocytes % (Manual) 4 % (20-45) L Monocytes % (Manual) 8 % (1-10) Eosinophils % (Manual) 1 % (0-3) Basophils % (Manual) 0 % (0-2) Myelocytes % 2 % (0-0) H Band Neutrophils 4 % (0-8) Platelet Estimate Increased H Platelet Morphology Normal Anisocytosis 1+ Sodium Level 134 MMOL/L (136-145) L Potassium Level 2.9 MMOL/L (3.5-5.1) L Chloride Level 99 MMOL/L (98-107) Carbon Dioxide Level 29 MMOL/L (21-32) Anion Gap 6 mmol/L (5-15) Blood Urea Nitrogen 31 mg/dL (7-18) H Creatinine 1.5 MG/DL (0.55-1.30) H Estimat Glomerular Filtration Rate mL/min (>60) Glucose Level 113 MG/DL (74-106) H Calcium Level 8.8 MG/DL (8.5-10.1) Total Bilirubin 0.2 MG/DL (0.2-1.0) Aspartate Amino Transf (AST/SGOT) 25 U/L (15-37) Alanine Aminotransferase (ALT/SGPT) 18 U/L (12-78) Alkaline Phosphatase 122 U/L (46-116) H Total Protein 6.0 G/DL (6.4-8.2) L Albumin 1.3 G/DL (3.4-5.0) L Globulin 4.7 g/dL Albumin/Globulin Ratio 0.3 (1.0-2.7) L Current Medications Medications (Trade) Dose Ordered Sig/Renetta Route PRN Reason Start Time Stop Time Status Last Admin Dose Admin Acetaminophen (Tylenol) 650 mg Q4H PRN RECTAL Mild Pain (Pain Scale 1-3) 10/04/18 21:45 10/29/18 21:44 Alprazolam (Xanax) 0.5 mg TIDPRN PRN ORAL agitation 10/04/18 21:45 10/11/18 21:44 10/06/18 11:21 Dextrose (Dextrose 50%) 25 ml Q30M PRN IV Hypoglycemia 10/04/18 21:45 10/29/18 21:44 Dextrose (Dextrose 50%) 50 ml Q30M PRN IV Hypoglycemia 10/04/18 21:45 10/29/18 21:44 Epoetin Paul (Epoetin Paul(ESRD on dialysis)) 10,000 unit WED-WED-WED SUBQ 10/05/18 21:00 10/30/18 20:59 10/05/18 20:24 Escitalopram Oxalate (Lexapro) 10 mg DAILY GT 10/05/18 09:00 10/31/18 10:59 10/06/18 11:20 Iron Sucrose 100 mg/Sodium Chloride 60 ml @ 240 mls/hr BEDTIME IV 10/05/18 21:00 10/06/18 21:14 10/05/18 20:24 Meropenem 500 mg/ Sodium Chloride 55 ml @ 110 mls/hr Q12H IVPB 10/05/18 01:00 10/08/18 12:59 10/06/18 13:17 Olanzapine (ZyPREXA) 2.5 mg TID ORAL 10/05/18 13:00 11/04/18 12:59 10/06/18 11:20 Ondansetron HCl (Zofran) 4 mg Q6H PRN IVP Nausea & Vomiting 10/04/18 21:45 11/03/18 21:44 Pantoprazole (Protonix) 40 mg DAILY IV 10/05/18 09:00 10/30/18 08:59 10/06/18 11:20 Sodium Chloride 1,000 ml @ 50 mls/hr Q20H IV 10/04/18 21:45 10/29/18 21:44 10/06/18 11:32 Vancomycin HCl (Vanco rx to dose) 1 ea DAILY PRN MISC Per rx protocol 10/04/18 21:45 11/03/18 21:44 Freedom Randolph MD Oct 06, 2018 13:29
--- NOTE | 2018-10-06 14:32 | NUR ---
RD ASSESSMENT & RECOMMENDATIONS SEE CARE ACTIVITY FOR COMPLETE ASSESSMENT DAILY ESTIMATED NEEDS: Needs based on Critical care + Wounds + ESRD w/ HD/ 60kg 22-30 kcals/kg 6623-1681 total kcals 1.5-2.0 g protein/kg 90-120g g total protein Fluid per MD on HD mL/kg total fluid mLs NUTRITION DIAGNOSIS: * Swallowing difficulty R/T respiratory status as evidenced by pt is trach and PEG dep. * Increased kcal/prot needs R/T wound healing as evidenced by pt admitted w/ multiple wounds advanced wound, refer to eval. * Altered nutrition related lab values R/T ESRD dx, clinical condition as evidenced by low Hgb (5.8->8.5), critical WBC now trending down, low BP, now off pressor support. CURRENT TF:Nepro @35ml/hr x 24 hr ENTERAL NUTRITION RECOMMENDATIONS: Nepro @35ml/hr x 24 hrs + Prosource 1pkt BID to provide 840ml, 1512 kcal, 78g + 22g prot, 611ml free water 1. Maintain current TF rate to meet est kcal needs 2. add Prosource 1 pack BID to better meet est protein needs 3. HOB over 30 degrees, flush per MD. ADDITIONAL RECOMMENDATIONS: * Re-calibrate bed scale (per SNF 09/28 wts: 132#, 60kg) * Wound care: add DUNIA BID + Nephrovite x1 daily -> rec VIT C per nephro MD * Monitor HD stability . .
[2018-10-06 16:00] VITALS: BP 137/56
--- NOTE | 2018-10-06 16:04 | Nephrology Progress Note ---
Assessment/Plan Plan Urosepsis (GNR) IV Abx per ID. Worsening anemia 2 above -transfuse on HD. ESRD HD MWF Chr. A. Fib - apixaban. DC'ed due to wound bleeding. HD done. Transfused. Sacral Decub - GS Consult Subjective Subjective Less confused. More alert. Objective Objective Last 24 Hour Vital Signs Date Time Temp Pulse Resp B/P (MAP) Pulse Ox O2 Delivery O2 Flow Rate FiO2 10/06/18 15:42 70 18 40 10/06/18 13:17 80 14 40 10/06/18 12:00 98.2 78 20 137/80 (99) 100 10/06/18 12:00 40 10/06/18 12:00 Mechanical Ventilator 10/06/18 11:54 115 10/06/18 11:16 75 19 40 10/06/18 08:41 79 18 40 10/06/18 08:19 79 17 40 10/06/18 08:00 Mechanical Ventilator 10/06/18 08:00 79.0 79 19 138/75 (96) 100 10/06/18 08:00 40 10/06/18 07:19 77 10/06/18 05:27 77 18 40 10/06/18 04:00 40 10/06/18 04:00 Mechanical Ventilator 10/06/18 04:00 97.1 75 24 138/76 (96) 98 10/06/18 04:00 74 10/06/18 03:22 74 15 40 10/06/18 01:16 69 16 40 10/06/18 00:00 97.7 67 16 137/60 (85) 100 10/06/18 00:00 Mechanical Ventilator 10/06/18 00:00 63 10/05/18 22:45 67 14 40 10/05/18 21:28 72 14 40 10/05/18 20:00 40 10/05/18 20:00 67 10/05/18 20:00 Mechanical Ventilator 10/05/18 20:00 97.9 69 24 138/61 (86) 100 10/05/18 19:25 69 15 40 10/05/18 16:48 100 17 40 Intake and Output 10/05/18 10/06/18 19:00 07:00 Intake Total 1519.000 ml 1470 ml Output Total 0 ml 30 ml Balance 1519.000 ml 1440 ml Free Water 120 ml 50 ml IV Total 979.000 ml 1000 ml Tube Feeding 420 ml 420 ml Output Urine Total 0 ml Stool Total 30 ml # Bowel Movements 3 3 Laboratory Tests 10/06/18 03:00: White Blood Count 17.6H, Red Blood Count 3.18L, Hemoglobin 9.8L, Hematocrit 29.0L, Mean Corpuscular Volume 91, Mean Corpuscular Hemoglobin 30.7, Mean Corpuscular Hemoglobin Concent 33.6, Red Cell Distribution Width 16.8H, Platelet Count 504H, Mean Platelet Volume 5.9L, Neutrophils (%) (Auto) , Lymphocytes (%) (Auto) , Monocytes (%) (Auto) , Eosinophils (%) (Auto) , Basophils (%) (Auto) , Differential Total Cells Counted 100, Neutrophils % ( Manual) 81H, Lymphocytes % (Manual) 4L, Monocytes % (Manual) 8, Eosinophils % ( Manual) 1, Basophils % (Manual) 0, Myelocytes % 2H, Band Neutrophils 4, Platelet Estimate IncreasedH, Platelet Morphology Normal, Anisocytosis 1+, Sodium Level 134L, Potassium Level 2.9L, Chloride Level 99, Carbon Dioxide Level 29, Anion Gap 6, Blood Urea Nitrogen 31H, Creatinine 1.5H, Estimat Glomerular Filtration Rate , Glucose Level 113H, Calcium Level 8.8, Total Bilirubin 0.2, Aspartate Amino Transf (AST/SGOT) 25, Alanine Aminotransferase ( ALT/SGPT) 18, Alkaline Phosphatase 122H, Total Protein 6.0L, Albumin 1.3L, Globulin 4.7, Albumin/Globulin Ratio 0.3L Height (Feet): 5 Height (Inches): 3.00 Weight (Pounds): 157 Objective On Vent. Cv IRR +tach Lungs CTA Abd SNT. BS + E No CCE Skin stage 3 sacral decub. Chase He MD Oct 06, 2018 16:04
[2018-10-06] MEDS ORDERED: Heparin Sod 1000 units/ml 10ml IV PRN (16:15)
--- NOTE | 2018-10-06 17:21 | NUR ---
RESPIRATORY NOTE: PT. REMAINED STABLE ON CMV WITH CURRENT SETTINGS. SXN'D PRN WITH SCANT AMOUNT OF CLEAR WHITE SECRETIONS OBTAINED. VENT CIRCUIT AND SX TUBBING SECURE AND OUT OF THE WAY. PT. HAS BILATERAL SOFT WRIST RESTRAINS IN PLACE. NO RESPIRATORY DISTRESS NOTED AT THIS TIME.
[2018-10-06] MEDS: Norco 5mg/325mg tab ORAL PRN (17:34)
--- NOTE | 2018-10-06 19:20 | NUR ---
HAND-OFF: Report given to .OLINDA BLAND.
--- NOTE | 2018-10-06 19:30 | NUR ---
NURSE NOTES: Received report from BALDO Travis. Patient seen in bed in semi-butler position with vent and setting of shiley 8, AC 18, TV 450, fi02 40%, PEEP 5. Spo2 is 100% at this time. Patient is alert, responsive, able to make simple needs known and able to use writing board for communication. Denies any pain at this time. Patient is on GTF of nepro @ 35cc/hr and is tolerating well. Rectal tube is intact. IV site to right hand 22G and right forearm 22G is intact. AV shunt noted to left upper arm. Bed is in lowest position. Noted with wrist restraints and no redness, swelling or skin breakdown at bilateral wrist area. Call light is within reach with wrist restraints. Will continue to monitor.
[2018-10-06 20:00] VITALS: BP 130/69
[2018-10-06] MEDS: Iron Sucrose 100 MG in NS 55 ML IV SCH (20:48)
--- NOTE | 2018-10-06 21:02 | NUR ---
NURSE NOTES: rhythm strip noted from SR to ST , then to RVR, Currently patient is ST. Paged Dr He. Currently awaiting for call back.
--- NOTE | 2018-10-06 23:00 | NUR ---
NURSE NOTES: Patient is currently sinus rhythm
[2018-10-07] VITALS: BP 127/60
[2018-10-07] MEDS: Meropenem 500 MG in NS 55 ML IVPB SCH ×2 (00:37→14:13)
[2018-10-07 04:00] VITALS: BP 131/76
[2018-10-07 05:55] LABS: BASOPHILS % (AUTO) 1.2 % (0.0-2.0); EOSINOPHILS % (AUTO) 2.3 % (0.0-3.0); HEMATOCRIT 28.7 % (37.0-47.0); HEMOGLOBIN 9.5 G/DL (12.0-16.0); LYMPHOCYTES % (AUTO) 4.7 % (20.0-45.0); MEAN CORPUSCULAR VOLUME 93 FL (80-99); MONOCYTES % (AUTO) 8.5 % (1.0-10.0); NEUTROPHILS % (AUTO) 83.2 % (45.0-75.0); PLATELET COUNT 502 K/UL (150-450); RED BLOOD COUNT 3.07 M/UL (4.20-5.40); RED CELL DISTRIBUTION WIDTH 17.7 % (11.6-14.8); WHITE BLOOD COUNT 13.2 K/UL (4.8-10.8)
[2018-10-07 06:18] LABS: ALANINE AMINOTRANSFERASE 16 U/L (12-78); ALBUMIN 1.2 G/DL (3.4-5.0); ALBUMIN/GLOBULIN RATIO 0.3 (1.0-2.7); ALKALINE PHOSPHATASE 111 U/L (46-116); ANION GAP 6 mmol/L (5-15); ASPARTATE AMINO TRANSFERASE 19 U/L (15-37); BILIRUBIN,TOTAL 0.3 MG/DL (0.2-1.0); BLOOD UREA NITROGEN 38 mg/dL (7-18); CARBON DIOXIDE 29 MMOL/L (21-32); CHLORIDE 99 MMOL/L (98-107); CREATININE 1.8 MG/DL (0.55-1.30); PHOSPHORUS 3.2 MG/DL (2.5-4.9); POTASSIUM 3.2 MMOL/L (3.5-5.1); SODIUM 134 MMOL/L (136-145)
[2018-10-07] MEDS ORDERED: Vancomycin 500mg/D5W 110ml IVPB SCH ×4 (07:00→08:00)
[2018-10-07] MEDS ORDERED: Vancomycin 500mg/D5W 110ml IVPB ONE ×2 (07:00)
--- NOTE | 2018-10-07 07:18 | Pulmonology Progress Note ---
Assessment/Plan Assessment/Plan 1. Shock, septic. Resolved 2. UTI. 3. ESRD, on dialysis. 4. Ventilator dependent respiratory failure. 5. Tracheostomy. 6. Diabetes mellitus. 7. Chronic atrial fibrillation. 8. Bacteremia. DISCUSSION: Continue broad-spectrum antibiotics. I will continue AC mode. Continue to decrease FiO2 as tolerated. Blood transfusion as required. Hemodialysis per renal. Surgical eval for sacral wound Apixiban dc Now in [place] Andres Allan M.D. Subjective Interval Events: Events noted; surgical consult for sacral wound; WC better today Constitutional: Reports: no symptoms HEENT: Repors: no symptoms Respiratory: Reports: no symptoms Cardiovascular: Reports: no symptoms Gastrointestinal/Abdominal: Reports: no symptoms Genitourinary: Reports: no symptoms Allergies: Coded Allergies: No Known Allergies (Unverified , 07/25/18) Objective Last 24 Hour Vital Signs Date Time Temp Pulse Resp B/P (MAP) Pulse Ox O2 Delivery O2 Flow Rate FiO2 10/07/18 04:57 92 15 40 10/07/18 04:00 99.1 75 12 131/76 (94) 100 10/07/18 04:00 40 10/07/18 04:00 Mechanical Ventilator 10/07/18 03:41 115 10/07/18 02:53 77 14 40 10/07/18 01:01 74 14 40 10/07/18 00:00 40 10/07/18 00:00 98.4 65 13 127/60 (82) 100 10/07/18 00:00 Mechanical Ventilator 10/06/18 23:40 67 10/06/18 22:53 79 13 40 10/06/18 20:39 74 16 40 10/06/18 20:00 40 10/06/18 20:00 97.5 118 14 130/69 (89) 100 10/06/18 20:00 Mechanical Ventilator 10/06/18 19:29 69 10/06/18 19:06 78 14 40 10/06/18 18:04 98.7 10/06/18 17:21 72 18 40 10/06/18 16:00 Mechanical Ventilator 10/06/18 16:00 40 10/06/18 16:00 98.7 68 17 137/56 (83) 99 10/06/18 15:42 70 18 40 10/06/18 15:37 74 10/06/18 13:17 80 14 40 10/06/18 12:00 98.2 78 20 137/80 (99) 100 10/06/18 12:00 40 10/06/18 12:00 Mechanical Ventilator 10/06/18 11:54 115 10/06/18 11:16 75 19 40 10/06/18 08:41 79 18 40 10/06/18 08:19 79 17 40 10/06/18 08:00 Mechanical Ventilator 10/06/18 08:00 79.0 79 19 138/75 (96) 100 10/06/18 08:00 40 10/06/18 07:19 77 Intake and Output 10/06/18 10/07/18 19:00 07:00 Intake Total 790 ml 545 ml Output Total 40 ml 50 ml Balance 750 ml 495 ml Free Water 150 ml 80 ml IV Total 255 ml 115 ml Tube Feeding 385 ml 350 ml Stool Total 40 ml 50 ml # Bowel Movements 3 General Appearance: no acute distress HEENT: normocephalic Respiratory/Chest: chest wall non-tender, lungs clear Cardiovascular: normal peripheral pulses, normal rate Laboratory Tests 10/07/18 03:35: White Blood Count 13.2H, Red Blood Count 3.07L, Hemoglobin 9.5L, Hematocrit 28.7L, Mean Corpuscular Volume 93, Mean Corpuscular Hemoglobin 31.0, Mean Corpuscular Hemoglobin Concent 33.2, Red Cell Distribution Width 17.7H, Platelet Count 502H, Mean Platelet Volume 5.5L, Neutrophils (%) (Auto) 83.2H, Lymphocytes (%) (Auto) 4.7L, Monocytes (%) (Auto) 8.5, Eosinophils (%) (Auto) 2.3, Basophils (%) (Auto) 1.2, Sodium Level 134L, Potassium Level 3.2L, Chloride Level 99, Carbon Dioxide Level 29, Anion Gap 6, Blood Urea Nitrogen 38H , Creatinine 1.8H, Estimat Glomerular Filtration Rate , Glucose Level 68L, Calcium Level 9.0, Phosphorus Level 3.2, Total Bilirubin 0.3, Aspartate Amino Transf (AST/SGOT) 19, Alanine Aminotransferase (ALT/SGPT) 16, Alkaline Phosphatase 111, Total Protein 5.9L, Albumin 1.2L, Globulin 4.7, Albumin/ Globulin Ratio 0.3L, Random Vancomycin Level 19.5 Current Medications Medications (Trade) Dose Ordered Sig/Renetta Route PRN Reason Start Time Stop Time Status Last Admin Dose Admin Acetaminophen (Tylenol) 650 mg Q4H PRN RECTAL Mild Pain (Pain Scale 1-3) 10/04/18 21:45 10/29/18 21:44 Acetaminophen/ Hydrocodone Bitart ([place] 5/325) 1 tab Q6H PRN ORAL For Pain 10/06/18 17:13 10/13/18 17:12 10/06/18 17:34 Alprazolam (Xanax) 0.5 mg TIDPRN PRN ORAL agitation 10/04/18 21:45 10/11/18 21:44 10/06/18 21:06 Dextrose (Dextrose 50%) 25 ml Q30M PRN IV Hypoglycemia 10/04/18 21:45 10/29/18 21:44 Dextrose (Dextrose 50%) 50 ml Q30M PRN IV Hypoglycemia 10/04/18 21:45 10/29/18 21:44 Epoetin Paul (Epoetin Paul(ESRD on dialysis)) 10,000 unit WED-WED-WED SUBQ 10/05/18 21:00 10/30/18 20:59 10/05/18 20:24 Escitalopram Oxalate (Lexapro) 10 mg DAILY GT 10/05/18 09:00 10/31/18 10:59 10/06/18 11:20 Heparin Sodium (Porcine) (Heparin Sod 1000 units/ml 10ml) 2,000 unit ONCE PRN IV FOR HD USE ONLY 10/06/18 16:15 10/07/18 23:59 Meropenem 500 mg/ Sodium Chloride 55 ml @ 110 mls/hr Q12H IVPB 10/05/18 01:00 10/08/18 12:59 10/07/18 00:37 Olanzapine (ZyPREXA) 5 mg TID ORAL 10/06/18 18:00 11/05/18 17:59 10/06/18 17:34 Ondansetron HCl (Zofran) 4 mg Q6H PRN IVP Nausea & Vomiting 10/04/18 21:45 3/7/19 21:44 Pantoprazole (Protonix) 40 mg DAILY IV 10/05/18 09:00 10/30/18 08:59 10/06/18 11:20 Sodium Chloride 1,000 ml @ 500 mls/hr Q2H PRN IVLG sbp<90 during hd 10/06/18 16:05 10/07/18 23:59 Vancomycin HCl (Vanco rx to dose) 1 ea DAILY PRN MISC Per rx protocol 10/04/18 21:45 11/03/18 21:44 Vancomycin HCl 500 mg/Dextrose 110 ml @ 110 mls/hr ONCE ONCE IVPB 10/07/18 07:00 10/07/18 07:59 Andres Allan MD Oct 07, 2018 07:18
--- NOTE | 2018-10-07 07:38 | NUR ---
HAND-OFF: Report given to BALDO Galvez.
--- NOTE | 2018-10-07 07:39 | NUR ---
NURSE NOTES: Patient received from BALDO Mauricio. Patient in bed and able to open her eyes. Trach to vent dependent. In no respiratory distress. equipment monitor phototypesetting in placed. Gtube feeding with Nephro 35 cc/hour. Rectal tube in placed. IV sites are asymptomatic. On bilateral soft wrist restraints. Per PM nurse, patient has dialysis today and dialysis company was called already. Bed in lowest position with side rails up. Will continue to follow plan of care.
[2018-10-07 08:00] VITALS: BP 125/69
[2018-10-07] MEDS: Pantoprazole Inj IV SCH (08:26)
--- NOTE | 2018-10-07 11:53 | General Progress Note ---
Assessment/Plan Problem List: (1) MDD (major depressive disorder), recurrent episode ICD Codes: F33.9 - Major depressive disorder, recurrent, unspecified SNOMED: 882302228 (2) Dementia with behavioral disturbance ICD Codes: F03.91 - Unspecified dementia with behavioral disturbance SNOMED: 7896366713519 (3) Encephalopathy chronic ICD Codes: G93.49 - Other encephalopathy SNOMED: 30185386 Status: stable Assessment/Plan lexapro 10mg po qam zyprexa 5mg tid cont restraints xanax .5 q 6hr /prn Subjective Neurologic/Psychiatric: Reports: anxiety Allergies: Coded Allergies: No Known Allergies (Unverified , 07/25/18) Subjective waxing and waning of consciousness cont to be agitated and bilat restraints son stated that he wanted Xanax on board Objective Last 24 Hour Vital Signs Date Time Temp Pulse Resp B/P (MAP) Pulse Ox O2 Delivery O2 Flow Rate FiO2 10/07/18 08:35 82 13 40 10/07/18 08:00 40 10/07/18 08:00 Mechanical Ventilator 10/07/18 08:00 97.3 118 14 125/69 (87) 98 10/07/18 07:54 117 10/07/18 06:45 89 14 40 10/07/18 04:57 92 15 40 10/07/18 04:00 99.1 75 12 131/76 (94) 100 10/07/18 04:00 40 10/07/18 04:00 Mechanical Ventilator 10/07/18 03:41 115 10/07/18 02:53 77 14 40 10/07/18 01:01 74 14 40 10/07/18 00:00 40 10/07/18 00:00 98.4 65 13 127/60 (82) 100 10/07/18 00:00 Mechanical Ventilator 10/06/18 23:40 67 10/06/18 22:53 79 13 40 10/06/18 20:39 74 16 40 10/06/18 20:00 40 10/06/18 20:00 97.5 118 14 130/69 (89) 100 10/06/18 20:00 Mechanical Ventilator 10/06/18 19:29 69 10/06/18 19:06 78 14 40 10/06/18 18:04 98.7 2/7/19 17:21 72 18 40 10/06/18 16:00 Mechanical Ventilator 10/06/18 16:00 40 10/06/18 16:00 98.7 68 17 137/56 (83) 99 10/06/18 15:42 70 18 40 10/06/18 15:37 74 10/06/18 13:17 80 14 40 10/06/18 12:00 98.2 78 20 137/80 (99) 100 10/06/18 12:00 40 10/06/18 12:00 Mechanical Ventilator 10/06/18 11:54 115 Intake and Output 10/06/18 10/07/18 19:00 07:00 Intake Total 790 ml 580 ml Output Total 40 ml 50 ml Balance 750 ml 530 ml Free Water 150 ml 80 ml IV Total 255 ml 115 ml Tube Feeding 385 ml 385 ml Stool Total 40 ml 50 ml # Bowel Movements 3 Laboratory Tests 10/07/18 03:35: White Blood Count 13.2H, Red Blood Count 3.07L, Hemoglobin 9.5L, Hematocrit 28.7L, Mean Corpuscular Volume 93, Mean Corpuscular Hemoglobin 31.0, Mean Corpuscular Hemoglobin Concent 33.2, Red Cell Distribution Width 17.7H, Platelet Count 502H, Mean Platelet Volume 5.5L, Neutrophils (%) (Auto) 83.2H, Lymphocytes (%) (Auto) 4.7L, Monocytes (%) (Auto) 8.5, Eosinophils (%) (Auto) 2.3, Basophils (%) (Auto) 1.2, Sodium Level 134L, Potassium Level 3.2L, Chloride Level 99, Carbon Dioxide Level 29, Anion Gap 6, Blood Urea Nitrogen 38H , Creatinine 1.8H, Estimat Glomerular Filtration Rate , Glucose Level 68L, Calcium Level 9.0, Phosphorus Level 3.2, Total Bilirubin 0.3, Aspartate Amino Transf (AST/SGOT) 19, Alanine Aminotransferase (ALT/SGPT) 16, Alkaline Phosphatase 111, Total Protein 5.9L, Albumin 1.2L, Globulin 4.7, Albumin/ Globulin Ratio 0.3L, Random Vancomycin Level 19.5 Height (Feet): 5 Height (Inches): 3.00 Weight (Pounds): 153 General Appearance: lethargic - waxing and waninig, confused Neurologic: depressed affect Sophia Castaneda MD Oct 07, 2018 11:53
[2018-10-07 12:00] VITALS: BP 111/51
--- NOTE | 2018-10-07 14:45 | NUR ---
NURSE NOTES: Called and paged Dr. He to inform for Potassium 3.2. Awaiting for call back.
--- NOTE | 2018-10-07 15:15 | Nephrology Progress Note ---
Assessment/Plan Plan Urosepsis (GNR) IV Abx per ID.Resolved Worsening anemia 2 above -transfuse on HD. ESRD HD MWF Chr. A. Fib - apixaban. DC'ed due to wound bleeding. HD done. Transfused. Sacral Decub - s/p debridement. Cleared by ID .. OK for DC to [facility]. Subjective Subjective Less confused. More alert. Objective Objective Last 24 Hour Vital Signs Date Time Temp Pulse Resp B/P (MAP) Pulse Ox O2 Delivery O2 Flow Rate FiO2 10/07/18 13:41 74 10/07/18 13:16 87 18 40 10/07/18 12:00 40 10/07/18 12:00 97.9 100 18 111/51 (71) 98 10/07/18 12:00 Mechanical Ventilator 10/07/18 11:00 84 12 40 10/07/18 08:35 82 13 40 10/07/18 08:00 40 10/07/18 08:00 Mechanical Ventilator 10/07/18 08:00 97.3 118 14 125/69 (87) 98 10/07/18 07:54 117 10/07/18 06:45 89 14 40 10/07/18 04:57 92 15 40 10/07/18 04:00 99.1 75 12 131/76 (94) 100 10/07/18 04:00 40 10/07/18 04:00 Mechanical Ventilator 10/07/18 03:41 115 10/07/18 02:53 77 14 40 10/07/18 01:01 74 14 40 10/07/18 00:00 40 10/07/18 00:00 98.4 65 13 127/60 (82) 100 10/07/18 00:00 Mechanical Ventilator 10/06/18 23:40 67 10/06/18 22:53 79 13 40 10/06/18 20:39 74 16 40 10/06/18 20:00 40 10/06/18 20:00 97.5 118 14 130/69 (89) 100 10/06/18 20:00 Mechanical Ventilator 10/06/18 19:29 69 10/06/18 19:06 78 14 40 10/06/18 18:04 98.7 10/06/18 17:21 72 18 40 10/06/18 16:00 Mechanical Ventilator 10/06/18 16:00 40 10/06/18 16:00 98.7 68 17 137/56 (83) 99 10/06/18 15:42 70 18 40 10/06/18 15:37 74 Intake and Output 10/06/18 10/07/18 19:00 07:00 Intake Total 790 ml 580 ml Output Total 40 ml 50 ml Balance 750 ml 530 ml Free Water 150 ml 80 ml IV Total 255 ml 115 ml Tube Feeding 385 ml 385 ml Stool Total 40 ml 50 ml # Bowel Movements 3 Laboratory Tests 10/07/18 03:35: White Blood Count 13.2H, Red Blood Count 3.07L, Hemoglobin 9.5L, Hematocrit 28.7L, Mean Corpuscular Volume 93, Mean Corpuscular Hemoglobin 31.0, Mean Corpuscular Hemoglobin Concent 33.2, Red Cell Distribution Width 17.7H, Platelet Count 502H, Mean Platelet Volume 5.5L, Neutrophils (%) (Auto) 83.2H, Lymphocytes (%) (Auto) 4.7L, Monocytes (%) (Auto) 8.5, Eosinophils (%) (Auto) 2.3, Basophils (%) (Auto) 1.2, Sodium Level 134L, Potassium Level 3.2L, Chloride Level 99, Carbon Dioxide Level 29, Anion Gap 6, Blood Urea Nitrogen 38H , Creatinine 1.8H, Estimat Glomerular Filtration Rate , Glucose Level 68L, Calcium Level 9.0, Phosphorus Level 3.2, Total Bilirubin 0.3, Aspartate Amino Transf (AST/SGOT) 19, Alanine Aminotransferase (ALT/SGPT) 16, Alkaline Phosphatase 111, Total Protein 5.9L, Albumin 1.2L, Globulin 4.7, Albumin/ Globulin Ratio 0.3L, Random Vancomycin Level 19.5 Height (Feet): 5 Height (Inches): 3.00 Weight (Pounds): 153 Objective On Vent. Cv IRR +tach Lungs CTA Abd SNT. BS + E No CCE Skin stage 3 sacral decub. Chase He MD Oct 07, 2018 15:15
[2018-10-07] MEDS ORDERED: LEXAPRO10 MG GT (15:19)
[2018-10-07] MEDS ORDERED: XANAX0.5 MG ORAL (15:19)
[2018-10-07] MEDS ORDERED: OLANZAPINE5 MG ORAL (15:19)
--- NOTE | 2018-10-07 15:30 | NUR ---
NURSE NOTES: Dr. He at bedside. Informed about Potassium 3.2 before dialysis. Patient had dialysis today with 3L out. No new order for potassium. Per Dr. He, patient is cleared by ID doctor without any antibiotics for discharge.
[2018-10-07] MEDS: Norco 5mg/325mg tab ORAL PRN (15:43)
[2018-10-07] MEDS ORDERED: NS 275ml ONE (15:48)
[2018-10-07 16:00] VITALS: BP 140/62
--- NOTE | 2018-10-07 16:06 | NUR ---
[employer] CLERK NOTES PT ACCEPTED BACK TO [facility]. PT GOES TO [facility] TIME 5PM MWF. TRANSPORTATION TO [facility] PT @1640 FOR [facility] RELATIONS SPECIALIST TO HD.
--- NOTE | 2018-10-07 17:31 | NUR ---
*-* DISCHARGE PLANNED *-* PATIENT IS DISCHARGE TO: [facility] ROOM# 70-B SKILLED T:[phone] FOR NURSE TO NURSE REPORT [facility] HAS BEEN ARRANGED FOR 1929 S/W ALICE [id number].. PLEASE CALL [facility] AND GIVE [id number].
--- NOTE | 2018-10-07 18:00 | NUR ---
NURSE NOTES: Negro Dale, son is at bedside and aware of transfer to [facility]. Addendum: 10/07/18 at 1815 by Leonor Velázquez RN NURSE NOTES: Patient will be going to [facility].
--- NOTE | 2018-10-07 18:11 | NUR ---
NURSE NOTES: Called [facility] and spoke to BALDO Chavez Drafting Layout Worker. She told me to call back later around 7pm. Will endorse to PM shift.
--- NOTE | 2018-10-07 18:27 | NUR ---
NURSE NOTES: Gave report to BALDO Chavez Road Advisor from [facility].
--- NOTE | 2018-10-07 19:10 | NUR ---
HAND-OFF: Report given to BALDO Diaz. Patient is table. Wound pictures are uploaded. Addendum: 10/07/18 at 1913 by Leonor Velázquez RN HAND-OFF: Patient is stable.
--- NOTE | 2018-10-07 19:30 | NUR ---
NURSE NOTES: Report received from BALDO Gonzalez. Observed pt sleeping on the bed. Family member at the bedside. A/O x2. SR with HR of 70s. Trach to vent, AC 8, TV 450, PEEP 5, FIO2 40%. Gtube intact and running Nepro at 35cc/hr. Rectal tube intact and draining well. IV on R H 22G, intact and heplock. R FA 22G, intact and TKO. Bed in the lowest position. Side rails up x3. Will continue to monitor.
[2018-10-07 20:00] VITALS: BP 109/55
--- NOTE | 2018-10-07 20:01 | NUR ---
NURSE NOTES: Awaiting for transportation to come to discharge. No acute distress noted at this time.
[2018-10-07] MEDS: Epoetin Alfa(ESRD on dialysis)10,000 unit/ml vial SUBQ SCH (21:05)
--- NOTE | 2018-10-07 22:00 | NUR ---
NURSE NOTES: Observed pt lying on the bed, calm and cooperative. Pt does not pull tubings. Distraction measures done and successful. Soft restraints discontinued. Will continue to monitor.
[2018-10-07] MEDS ORDERED: Tubing IV Secondary IV ONE (22:54)
--- NOTE | 2018-10-07 22:55 | NUR ---
NURSE NOTES: Report given to transportation. V/S within normal range. No acute distress noted at this time. Telemonitor out and cleaned. Pt has no belongings. pt is discharged to [facility].
--- NOTE | 2018-10-08 13:22 | Discharge Summary ---
Discharge Summary Discharge Summary _ DATE OF ADMISSION: 09/29/2018 DATE OF DISCHARGE: 10/07/2018 DISCHARGED BY: Dr. He REASON FOR ADMISSION: 78 years old female with past medical history of hypertension, atrial fibrillation, COPD, GERD, ventilator dependent respiratory failure , end-stage renal disease , on hemodialysis, dementia, GERD, was brought to emergency department from nursing facility for evaluation. According to report patient had a hemoglobin 6.7 on recent lab results. No reported rectal bleeding , no hematemesis. Upon evaluation patient was found to be hypotensive , tachycardic , with marked leukocytosis. EKG revealed atrial fibrillation with rapid ventricular response . Chest x-ray revealed bilateral extensive interstitial and airspace infiltrates versus edema, new since previous study., Central line was placed in ED for pressors. Metoprolol was given for rate control, and heart rate stabilized. Patient was started on pressors, pancultured , started on empiric antibiotic and was admitted to ICU for further management. CONSULTANTS: pulmonary Dr. Allan ID specialist Dr. Morfin surgery Dr. Nails psychiatrist [facility] COURSE: Patient was admitted to ICU. Patient was started on pressors to maintain mean arterial blood pressure above 65. Hemodynamic status was closely monitored. Patient was able to be weaned from pressors on 09/30. Patient started on broad-spectrum antibiotics . Ventilator support and tracheostomy care provided. ABG was stable on current settings. Compact Assembler followed . Hemodialysis provided with close monitoring of volumes and cardiorenal parameters. Electrolytes were closely monitored and corrected as needed. Compact Assembler closely followed. Ventilator support and tracheostomy care provided. Ventilator settings optimized as per assigner recommendations. Pulmonary toilet provided. Anticoagulation with apixaban was discontinued due to severe anemia. Heart rate remained stable. ID specialist closely followed. Blood culture revealed MRSA. Urine culture revealed E. coli. Wound culture revealed MRSA and Pseudomonas. Sputum culture revealed Pseudomonas and Serratia Stool for C. difficile was negative. Antibiotic regimen was optimized as per infectious disease recommendation. Echocardiogram revealed no evidence of vegetation. Central line was removed at the bedside by surgeon, presumed to be infected. Surgeon seen and evaluated patient for decubitus ulcer present on admission. Patient had full-thickness stage III sacral pressure ulcer with deep undermining into left buttock. Wound care provided as per surgeon recommendation. Wound culture revealed MRSA and Pseudomonas . Per surgeon further evaluation , sacral decubitus ulcer was not granulating well. He recommended to consider debridement soon to clean biofilm and promote granulation tissue. meantime continue meticulous wound care at the facility with clsoe observation. Patient may need further interventions. Hemoglobin and hematocrit were closely monitored with goal to keep hemoglobin above 7. On 09/30 hemoglobin down to 5.8, hematocrit 17.8 Patient undergone transfusion of total of 3 units of packed red blood cells. Prior to discharge hemoglobin 9.5 hematocrit 28.7. Epogen was continued. Patient received 2 doses of IV Venofer. G-tube feeding provided with strict aspiration /reflux precautions. Patient was able to tolerate tube feeding. Wheel Roller recommendations regarding protein supplements implemented in plan of care. Supportive care provided . Bowel regimen instituted. Psychiatrist followed and diagnosed patient with dementia with behavioral disturbances , chronic encephalopathy , and major depressive disorder . Psychiatric medication regimen was optimized as per psychiatrist. Patient clinically stabilized and was ready for transfer back to [facility] FINAL DIAGNOSES: Septic shock-resolved Ventilator dependent respiratory failure Sepsis with MRSA bacteremia E. coli UTI Infected central line, status post femoral line removal Pneumonia with Pseudomonas and Serratia Sacral decubitus ulcer stage 3, present on admission Anemia, requiring blood transfusion Anemia of chronic kidney disease End-stage renal disease , on hemodialysis Type 2 diabetes mellitus Atrial fibrillation with rapid ventricular rate -resolved Chronic atrial fibrillation Dysphagia G-tube Severe protein calorie malnutrition Major depressive disorder, recurrent episode Chronic encephalopathy Dementia with behavioral disturbances Peripheral vascular disease DISCHARGE MEDICATIONS: See Medication Reconciliation list. DISCHARGE INSTRUCTIONS: Patient was discharged to the intermediate facility. Follow up with medical doctor at the facility. I have been assigned to dictate discharge summary for this account. I was not involved in the patient's management. Jacinta Prieto NP Oct 08, 2018 13:22
--- NOTE | 2018-10-09 12:21 | NUR ---
CASE MANAGEMENT: CM review and clinical information (face sheet/ DC summary/ ER MD Note/ H&P) faxed to [employer] @ [phone].
== END 2018-10-07 22:55 | DRG 720 ==
LOC: EDBD 15:44 → EMR 16:00 → ICU 16:30 → EDBEDREQSVC 17:39 → EDBEDREQ 17:39 → ICU 20:10 → 2W 10-04 21:32
PROC: 5A1955Z Respiratory Ventilation, Greater than 96 Consecutive Hours (ICD-10-PCS; 2018-09-29)
PROC: 06HN33Z Insertion of Infusion Device into Left Femoral Vein, Percutaneous Approach (ICD-10-PCS; 2018-09-29)
PROC: 5A1D70Z Performance of Urinary Filtration, Intermittent, Less than 6 Hours Per Day (ICD-10-PCS; principal; 2018-09-30)
DX: A41.02 Sepsis due to Methicillin resistant Staphylococcus aureus (principal); J96.90 Respiratory failure, unspecified, unspecified whether with hypoxia or hypercapnia; E43 Unspecified severe protein-calorie malnutrition; J15.6 Pneumonia due to other Gram-negative bacteria; G93.40 Encephalopathy, unspecified; Z99.11 Dependence on respirator [ventilator] status; J15.1 Pneumonia due to Pseudomonas; R65.21 Severe sepsis with septic shock; Z93.0 Tracheostomy status; L89.153 Pressure ulcer of sacral region, stage 3; T80.219A Unspecified infection due to central venous catheter, initial encounter; E11.22 Type 2 diabetes mellitus with diabetic chronic kidney disease; F03.91 Unspecified dementia, unspecified severity, with behavioral disturbance; I12.0 Hypertensive chronic kidney disease with stage 5 chronic kidney disease or end stage renal disease; L97.319 Non-pressure chronic ulcer of right ankle with unspecified severity; N18.6 End stage renal disease; Z99.2 Dependence on renal dialysis; I73.9 Peripheral vascular disease, unspecified; F41.9 Anxiety disorder, unspecified; Z93.1 Gastrostomy status; D63.1 Anemia in chronic kidney disease; L97.329 Non-pressure chronic ulcer of left ankle with unspecified severity; N39.0 Urinary tract infection, site not specified; B96.20 Unspecified Escherichia coli [E. coli] as the cause of diseases classified elsewhere; F33.9 Major depressive disorder, recurrent, unspecified; Z68.27 Body mass index [BMI] 27.0-27.9, adult
CPT/HCPCS: 36415; 36600; 71045; 80048; 80053; 80076; 80202; 81003; 82803; 83605; 83615; 83690; 83735; 84100; 85007; 85025; 85610; 85730; 86850; 86900; 86901; 86920; 87040; 87070; 87081; 87086; 87181; 87205; 87324; 93306; 94002; 94003; 94664; 96365; 96368; 96375; 96376; 99291